=== PATIENT | female | born 1955 | race Caucasian/White ===

== ENCOUNTER → 2017-11-05 13:10 | Outpatient (CLI) | payer MEDICARE, SELFPAY ==
[2017-09-16 23:55] VITALS: BP 155/87
[2017-09-19 14:50] VITALS: BMI 22.1
[2017-10-01 13:05] VITALS: BP 123/86
[2017-11-05 14:00] LABS: Absolute Lymphocyte Count 2.15 X10^3/ul (0.83-4.51); Absolute Neutrophil Count 5.3 X10^3/uL (2.0-7.7); Basophil# 0.06 X10^3/uL; Basophil% 0.7 % (0-1); Eosinophil# 0.43 X10^3/uL; Hematocrit 38.8 % (37-47); Hemoglobin 12.4 g/dl (12.0-15.0); Lymphocyte # 2.15 X10^3/ul (4.0); Lymphocyte % 25.1 % (19-41); Mean Corpuscular Hgb 29.4 pg (27.0-32.0); Mean Corpuscular Volume 91.9 fL (81-99); Mean Platelet Vol. 10.3 fl (6.2-12.0); Monocyte# 0.56 X10^3/uL; Monocyte% 6.5 % (0-10); Neutrophil # 5.34 X10^3/uL (2.7-7.7); Neutrophil % 62.5 % (47-70); POSITIVE COUNT NO; POSITIVE DIFFERENTIAL NO; POSITIVE MORPHOLOGY NO; Platelet Count 184 K/mm3 (150-450); RBC Distribution Width CV 17.3 % (11.6-14.6); RBC Distribution Width SD 56.3 fl (35.1-43.9); Red Blood Count 4.22 M/mm3 (4.2-5.4); White Blood Count 8.6 K/mm3 (4.4-11.0)
[2017-11-05 14:09] LABS: ALB/GLOB Ratio 0.8 RATIO (0.9-2.4); AST(SGOT) 31 U/L (15-37); Alanine Aminotransfer ALT/SGPT 40 U/L (13-56); Albumin, Serum 3.6 g/dL (3.2-5.0); Alkaline Phosphatase 104 U/L (45-117); Anion Gap 7 (5-15); BUN 34 mg/dL (7-18); Chloride 105 mmol/L (98-107); Creatinine, Serum 1.79 mg/dL (0.55-1.02); EST Glomerular Filtration Rate 30 mL/min (>60); Est Glom Filt Rate - Afr Amer 37 mL/min (>60); Globulin 4.5 g/dL (2.2-4.2); Glucose 76 mg/dL (70-110); Potassium 4.1 mmol/L (3.5-5.1); Protein, Total 8.1 g/dL (6.4-8.2); Sodium Level 137 mmol/L (136-145)
== END ==
PROVIDERS: Family Provider Internal Medicine; PCP Internal Medicine; Visit Provider Internal Medicine
DX: G35 Multiple sclerosis (principal); R53.81 Other malaise; G81.91 Hemiplegia, unspecified affecting right dominant side
CPT/HCPCS: 36591; 80053; 85025; A4216

== ENCOUNTER → 2017-11-17 13:01 | Outpatient (CLI) | payer MEDICARE, SELFPAY ==
--- NOTE | 2017-11-17 13:04 | RAD_ITS ---
STUDY: SWALLOWING STUDY REASON FOR EXAM: Female, 62 years old. Dysphagia. History of MS. TECHNIQUE: The examination was performed with Speech Pathology in attendance. Under fluoroscopic observation, the patient ingested thin barium, thick barium, barium pudding, and barium coated cracker. FLUOROSCOPY TIME: 3:56 minutes/seconds. 3489 fluoroscopic images were obtained. RADIOLOGIST INVOLVEMENT: Radiologist was present and providing direct supervision. COMPARISON: Comparison is made with prior study dated September 15, 2017. FINDINGS: The following was observed during swallowing of the various mixtures of barium: Thin Barium: Silent aspiration with ingestion of thin liquids. Thick Barium: Silent aspiration with ingestion of nectar thickened liquids upon serial swallowing. Honey thickened liquids are unremarkable. Barium Pudding: There was no evidence of aspiration or laryngeal penetration. Barium Coated Cracker: There was no evidence of aspiration or laryngeal penetration. RAD/Swallowing Function w/Video IMPRESSION: Silent aspiration with ingestion of thin liquids and nectar thickened liquids upon sequential swallowing. The swallow study findings were discussed with the patient by the speech pathologist at the conclusion of the examination. Please see speech pathology report for more information and recommendations. Electronically Signed: Luís Hines MD at 8:25 EST Tel [phone], Service support ,
--- NOTE | 2017-11-17 13:30 | SP.MBSS_ITS ---
PRIMARY / SECONDARY DIAGNOSIS: dysphagia (R13.10) REFERRING PHYSICIAN: Dr. Alexandria Carranza MD CURRENT DIET: mechanical soft textures, nectar thickened liquids DENTITION: WFL MENTAL STATUS: WNL RESPIRATORY STATUS: O2 via room air PREVIOUS MODIFIED BARIUM SWALLOW STUDY: 09/24/2017 MBS revealed moderate oropharyngeal dysphagia with SILENT aspiration of thin liquids. 09/15/2017 MBS revealed moderate oropharyngeal dysphagia with SILENT aspiration of thin liquids. 09/2015 - Two prior MBS in [facility]; limited details available. REASON FOR REFERRAL: Patient is a 62 year old female referred for a modified barium swallow (MBS) study to objectively assess the Patients oropharyngeal swallow function under fluoroscopy secondary to the diagnosis of multiple sclerosis with resulting moderate oropharyngeal dysphagia and history of SILENT aspiration of thin liquids. Patient well known to this clinician from multiple treatments sessions across multiple levels of care targeting dysphagia and dysarthria secondary to the diagnosis of multiple sclerosis. 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 Patient with prior history of dysphagia requiring PEG placement (09/13/2015 admission in [facility], due to severe sepsis), with follow up MBS recommending a mechanical soft, thin liquid diet, later upgraded to soft textured diet during outpatient speech therapy treatment sessions. MEDICAL HISTORY: Multiple sclerosis, right hemiparesis, chronic transient ischemic attacks, chronic kidney disease stage 4, hydronephrosis, hyperlipidemia, migraine headache. STUDY FINDINGS: Patient participated in a Modified Barium Swallow (MBS) study on 11/17/2017. Dr. Hines was the radiologist present for this evaluation. This study was recorded in the lateral view and images were sent to PACs for storage. The following consistencies were presented to this patient for analysis of oropharyngeal swallow function: thin liquids, nectar thickened liquids, honey thickened liquids, pudding, and a regular textured, [place] Do[place] cookie. Results of the MBS are as follows: PENETRATION / ASPIRATION SCALE (ALBERTO): 1 = does not enter airway 2 = enters airway/above vocal folds/ejected 3 = enters airway/above vocal folds/not ejected 4 = enters airway/contacts vocal folds/ejected 5 = enters airway/contacts vocal folds/not ejected 6 = enters airway/below vocal folds/ejected 7 = enters airway/below vocal folds/not ejected despite effort 8 = enters airway/below vocal folds/no effort VIDEOFLOROSCOPIC SCALE SCORE (ALBERTO): Grade I = aspiration of material that has penetrated into the laryngeal vestibule, intact cough reflex Grade II = aspiration < 10 % of the bolus, intact cough reflex Grade III = aspiration of < 10 % of the bolus, reduced cough reflex or aspiration of > 10 % of the bolus, intact cough reflex Grade IV = aspiration of > 10 % of the bolus, reduced cough reflex PENETRATION / ASPIRATION SCALE (SCORE) WITH VIDEOFLOROSCOPIC SCALE SCORE: Thin liquid - 5 mL tsp.: 2 Thin liquids via straw (single sip): 8 - Grade III Thin liquids via straw (single sip): 8 - Grade III Thin liquids via straw (supraglottic swallow): 8 - Grade III [place] thickened liquids via straw (single sip): 1 [place] thickened liquids via straw (single sip): 1 [place] thickened liquids via straw (single sip): 1 [place] thickened liquids via straw (sequential swallows): 7 - Grade III [place] thickened liquids via straw (sequential swallows): 8 - Grade IV Honey thickened liquids via straw (sequential swallows): 1 Honey thickened liquids via straw (sequential swallows): 1 Honey thickened liquids via straw (sequential swallows): 1 Pudding via spoon: 1 Regular textured cookie: 1 IMPRESSION: DIAGNOSIS: moderate to severe oropharyngeal dysphagia (R13.12) ORAL PHASE CHARACTERIZED BY: LABIAL SEAL: no labial escape TONGUE CONTROL DURING BOLUS MANIPULATION: intermittent posterior escape of greater than half of bolus during thin and nectar thickened liquid trials BOLUS PREPARATION / MASTICATION: slow prolonged chewing/mashing with complete recollection BOLUS TRANSPORT / LINGUAL MOTION: brisk tongue motion ORAL RESIDUE: trace residue lining oral structures PHARYNGEAL PHASE CHARACTERIZED BY: INITIATION OF PHARYNGEAL SWALLOW: bolus head in pyriforms at first hyoid excursion SOFT PALATE ELEVATION: intermittent trace column of contrast/air between soft palate and pharyngeal wall LARYNGEAL ELEVATION: partial superior movement of thyroid cartilage/partial approximation of arytenoids cartilage to epiglottic petiole ANTERIOR HYOID EXCURSION: trace anterior movement EPIGLOTTIC MOVEMENT: partial epiglottic inversion LARYNGEAL VESTIBULE CLOSURE AT HEIGHT OF SWALLOW: incomplete laryngeal vestibule closure with narrow column of air/contrast in laryngeal vestibule PHARYNGEAL STRIPPING WAVE: pharyngeal stripping wave present / complete ( improved) PHARYNGOESOPHAGEAL SEGMENT OPENING: complete distension and complete duration with no obstruction of flow TONGUE BASE RETRACTION: trace column of contrast between tongue base and posterior pharyngeal wall PHARYNGEAL RESIDUE: trace residue within or on pharyngeal structures (improved) ESOPHAGEAL PHASE CHARACTERIZED BY: ESOPHAGEAL BOLUS CLEARANCE IN THE UPRIGHT POSITION: mild esophageal retention EFFECTS OF TREATMENT STRATEGIES ATTEMPTED: Reduced bolus size = effective Cough and reswallow = ineffective Supraglottic swallow = ineffective DIET TEXTURE RECOMMENDATIONS: Will recommend a regular-soft textured, nectar thickened liquid diet. COMPENSATORY STRATEGIES RECOMMENDED: Supervision with assistance for setup, cut solids into bite sized pieces, reduced bolus volume, reduced rate of intake, straws with all liquids, seated upright at 90 degrees during PO intake, medications with liquid chaser. INTERPRETATION OF RESULTS: Patient presents with moderate to severe oropharyngeal dysphagia (R13.12) secondary to the diagnosis of multiple sclerosis. Oral phase marked by mastication inefficiency (slow, albeit effective); suboptimal lingual control resulting in premature bolus loss. Pharyngeal phase marked by severely delayed pharyngeal swallow onset timing resulting in suboptimal bolus location upon swallow onset contributing to prandial penetration and subsequent aspiration of thin and nectar thickened liquids; impaired closure of the airway during deglutition attributed to reduced laryngeal elevation and anterior hyoid excursion resulting in insufficient epiglottic inversion poor laryngeal vestibule closure / pressure contributing to prandial penetration and subsequent aspiration of thin and nectar thickened liquids; and velopharyngeal insufficiency soft palate elevation without nasoregurgitation. Insufficient laryngeal vestibule pressure generated to expel penetrated material. Insufficient cough generated upon cued cough post aspiration to expel penetrated material / laryngotracheal aspiration. Patient noted to SILENTLY aspirate with thin liquids and sequential swallows of nectar thickened liquids, with clinical assessment at bedside relying on identification of classic overt signs and symptoms of aspiration unreliable. Improved tolerance of nectar thickened liquids with reduction in bolus volume. Current presentation likely representing the Patients new baseline, with results somewhat similar in nature to the previous study. RECOMMENDATIONS: Recommendations for nectar thickened liquids accompanied by caution in regards to bolus volume, as the Patient has demonstrated inconsistent management of bolus size without cueing, recommendations made following conversation with the Patient and Patients , all demonstrating comprehension of possible complications, all demonstrate excellent insight, awareness, desire to advance with less restrictive diet and compensatory measures detailed above. Would strongly discourage advancement past nectar thickened liquids without completion of a repeat modified barium swallow study due to the extent of aspirate identified that was SILENT in nature. Recommend continued implementation of the [place] Free Water Protocol (FFWP), as continued manipulation of thin liquids with above recommended aspiration precautions may promote improved hydration. Patient requires intensive skilled speech-language intervention targeting continued diet texture management; training and implementation of recommended compensatory strategies; and training, implementation, and Patient education regarding implementation of the FFWP. ADDITIONAL COMMENTS/RECOMMENDATIONS: Results and recommendations were discussed with the Patient immediately following MBS completion, with the Patient verbalizing understanding and agreement with all recommendations and education provided. IMAGE COUNT: [id number] G-CODES: SWALLOWING [id number] Current Status: CL SWALLOWING [id number] Goal Status: CK SWALLOWING [id number] Discharge Status: CL
== END ==
PROVIDERS: Family Provider Internal Medicine; PCP Internal Medicine; Visit Provider Internal Medicine
DX: R13.10 Dysphagia, unspecified (principal)
CPT/HCPCS: 74230; 92611

== ENCOUNTER → 2017-12-07 15:22 | Outpatient (CLI) | payer MEDICARE, SELFPAY ==
[2017-12-07 16:26] LABS: Absolute Lymphocyte Count 2.67 X10^3/ul (0.83-4.51); Absolute Neutrophil Count 4.5 X10^3/uL (2.0-7.7); Basophil# 0.03 X10^3/uL; Basophil% 0.4 % (0-1); Eosinophil# 0.27 X10^3/uL; Eosinophils% 3.4 % (0-5); Hematocrit 38.2 % (37-47); Hemoglobin 12.1 g/dl (12.0-15.0); Lymphocyte # 2.67 X10^3/ul (4.0); Lymphocyte % 33.2 % (19-41); Mean Corp Hgb Conc 31.7 g/gl (32-36); Mean Corpuscular Hgb 28.7 pg (27.0-32.0); Mean Corpuscular Volume 90.7 fL (81-99); Mean Platelet Vol. 9.9 fl (6.2-12.0); Monocyte# 0.53 X10^3/uL; Monocyte% 6.6 % (0-10); Neutrophil # 4.53 X10^3/uL (2.7-7.7); Neutrophil % 56.3 % (47-70); Platelet Count 233 K/mm3 (150-450); RBC Distribution Width CV 16.3 % (11.6-14.6); RBC Distribution Width SD 54.2 fl (35.1-43.9); Red Blood Count 4.21 M/mm3 (4.2-5.4)
[2017-12-07 16:35] LABS: POSITIVE COUNT NO; POSITIVE DIFFERENTIAL NO; POSITIVE MORPHOLOGY NO
[2017-12-07 16:50] LABS: ALB/GLOB Ratio 0.8 RATIO (0.9-2.4); AST(SGOT) 21 U/L (15-37); Alanine Aminotransfer ALT/SGPT 34 U/L (13-56); Albumin, Serum 3.6 g/dL (3.2-5.0); Alkaline Phosphatase 120 U/L (45-117); Anion Gap 7 (5-15); BUN 44 mg/dL (7-18); BUN/Creat Ratio 22.6 RATIO (10-20); Calcium,Total 8.9 mg/dL (8.5-10.1); Chloride 105 mmol/L (98-107); Creatinine, Serum 1.95 mg/dL (0.55-1.02); EST Glomerular Filtration Rate 28 mL/min (>60); Est Glom Filt Rate - Afr Amer 33 mL/min (>60); Globulin 4.4 g/dL (2.2-4.2); Glucose 67 mg/dL (74-106); Potassium 4.4 mmol/L (3.5-5.1); Sodium Level 138 mmol/L (136-145)
== END ==
PROVIDERS: Family Provider Internal Medicine; PCP Internal Medicine; Visit Provider Internal Medicine
DX: G35 Multiple sclerosis (principal); R53.81 Other malaise; G81.91 Hemiplegia, unspecified affecting right dominant side
CPT/HCPCS: 36591; 80053; 85025; A4216

== ENCOUNTER → 2018-01-11 14:45 | Outpatient (CLI) | payer MEDICARE, SELFPAY ==
[2018-01-11 15:17] LABS: Absolute Lymphocyte Count 2.53 X10^3/ul (0.83-4.51); Absolute Neutrophil Count 5.2 X10^3/uL (2.0-7.7); Basophil# 0.04 X10^3/uL; Basophil% 0.4 % (0-1); Eosinophil# 0.26 X10^3/uL; Eosinophils% 2.9 % (0-5); Hematocrit 40.4 % (37-47); Hemoglobin 12.8 g/dl (12.0-15.0); Lymphocyte # 2.53 X10^3/ul (4.0); Lymphocyte % 28.4 % (19-41); Mean Corp Hgb Conc 31.7 g/gl (32-36); Mean Corpuscular Hgb 28.9 pg (27.0-32.0); Mean Corpuscular Volume 91.2 fL (81-99); Mean Platelet Vol. 9.9 fl (6.2-12.0); Monocyte% 10.1 % (0-10); Neutrophil # 5.16 X10^3/uL (2.7-7.7); Platelet Count 202 K/mm3 (150-450); RBC Distribution Width CV 15.1 % (11.6-14.6); Red Blood Count 4.43 M/mm3 (4.2-5.4); White Blood Count 8.9 K/mm3 (4.4-11.0)
[2018-01-11 15:18] LABS: POSITIVE COUNT NO; POSITIVE DIFFERENTIAL NO; POSITIVE MORPHOLOGY NO
[2018-01-11 15:50] LABS: ALB/GLOB Ratio 0.8 RATIO (0.9-2.4); AST(SGOT) 28 U/L (15-37); Alanine Aminotransfer ALT/SGPT 37 U/L (13-56); Albumin, Serum 3.7 g/dL (3.2-5.0); Alkaline Phosphatase 126 U/L (45-117); Anion Gap 4 (5-15); BUN 32 mg/dL (7-18); BUN/Creat Ratio 17.4 RATIO (10-20); Chloride 102 mmol/L (98-107); Creatinine, Serum 1.84 mg/dL (0.55-1.02); EST Glomerular Filtration Rate 30 mL/min (>60); Est Glom Filt Rate - Afr Amer 36 mL/min (>60); Globulin 4.4 g/dL (2.2-4.2); Glucose 89 mg/dL (74-106); Potassium 4.4 mmol/L (3.5-5.1); Protein, Total 8.1 g/dL (6.4-8.2); Sodium Level 137 mmol/L (136-145)
== END ==
PROVIDERS: Family Provider Internal Medicine; PCP Internal Medicine; Visit Provider Internal Medicine
DX: G35 Multiple sclerosis (principal); R53.81 Other malaise; G81.91 Hemiplegia, unspecified affecting right dominant side
CPT/HCPCS: 36591; 80053; 85025; A4216

== ENCOUNTER → 2018-02-07 16:01 | Outpatient (CLI) | payer MEDICARE, SELFPAY ==
[2018-02-07 16:44] LABS: Absolute Neutrophil Count 7.2 X10^3/uL (2.0-7.7); Basophil# 0.04 X10^3/uL; Basophil% 0.4 % (0-1); Eosinophils% 1.8 % (0-5); Hematocrit 39.4 % (37-47); Hemoglobin 12.6 g/dl (12.0-15.0); Lymphocyte % 22.1 % (19-41); Mean Corpuscular Hgb 28.9 pg (27.0-32.0); Mean Corpuscular Volume 90.4 fL (81-99); Mean Platelet Vol. 9.4 fl (6.2-12.0); Monocyte# 1.02 X10^3/uL; Monocyte% 9.4 % (0-10); Neutrophil # 7.19 X10^3/uL (2.7-7.7); Neutrophil % 66.2 % (47-70); Platelet Count 222 K/mm3 (150-450); RBC Distribution Width SD 49.1 fl (35.1-43.9); Red Blood Count 4.36 M/mm3 (4.2-5.4); White Blood Count 10.9 K/mm3 (4.4-11.0)
[2018-02-07 17:05] LABS: ALB/GLOB Ratio 0.8 RATIO (0.9-2.4); AST(SGOT) 21 U/L (15-37); Alanine Aminotransfer ALT/SGPT 33 U/L (13-56); Albumin, Serum 3.5 g/dL (3.2-5.0); Alkaline Phosphatase 134 U/L (45-117); Anion Gap 8 (5-15); BUN 35 mg/dL (7-18); BUN/Creat Ratio 17.9 RATIO (10-20); Calcium,Total 9.5 mg/dL (8.5-10.1); Chloride 102 mmol/L (98-107); Creatinine, Serum 1.96 mg/dL (0.55-1.02); EST Glomerular Filtration Rate 27 mL/min (>60); Est Glom Filt Rate - Afr Amer 33 mL/min (>60); Globulin 4.5 g/dL (2.2-4.2); Glucose 89 mg/dL (74-106); Potassium 4.7 mmol/L (3.5-5.1); Sodium Level 137 mmol/L (136-145)
[2018-02-07 17:08] LABS: Albumin, Serum 3.5 g/dL (3.2-5.0); BUN 35 mg/dL (7-18); BUN/Creat Ratio 17.9 RATIO (10-20); Calcium,Total 9.3 mg/dL (8.5-10.1); Chloride 101 mmol/L (98-107); Creatinine, Serum 1.96 mg/dL (0.55-1.02); EST Glomerular Filtration Rate 27 mL/min (>60); Est Glom Filt Rate - Afr Amer 33 mL/min (>60); Ferritin 35 ng/mL (8-252); Glucose 90 mg/dL (74-106); Iron 34 ug/dL (50-170); Iron Binding Capacity,Total 313 ug/dL (250-450); Phosphorus 3.8 mg/dL (2.5-4.9); Potassium 4.6 mmol/L (3.5-5.1); Sodium Level 135 mmol/L (136-145)
[2018-02-07 17:11] LABS: POSITIVE COUNT NO; POSITIVE DIFFERENTIAL NO; POSITIVE MORPHOLOGY NO
[2018-02-07 17:12] LABS: PTHIN 229.3 pg/mL (18.4-80.1)
[2018-02-07 17:15] LABS: RET-HE 30.5 pg (30-35); Reticulocyte Count 1.11 % (0.5-1.5)
[2018-02-07 17:16] LABS: Immature Platelet Fraction 2.1 % (1.0-7.9)
[2018-02-07 17:56] LABS: Vitamin B12 713 pg/mL (211-911); Vitamin D,25 Hydroxy 61.5 ng/mL (29.95-100.01)
== END ==
PROVIDERS: Family Provider Internal Medicine; PCP Internal Medicine; Visit Provider Internal Medicine
DX: G35 Multiple sclerosis (principal); N18.3 Chronic kidney disease, stage 3 (moderate); E61.1 Iron deficiency; R53.81 Other malaise; G81.91 Hemiplegia, unspecified affecting right dominant side
CPT/HCPCS: 36591; 80053; 80069; 82306; 82607; 82728; 83540; 83550; 83970; 85025; 85045; A4216

== ENCOUNTER → 2018-03-17 14:54 | Outpatient (CLI) | payer MEDICARE, SELFPAY ==
[2018-03-17 15:42] LABS: Absolute Neutrophil Count 4.2 X10^3/uL (2.0-7.7); Basophil# 0.04 X10^3/uL; Basophil% 0.6 % (0-1); Eosinophil# 0.21 X10^3/uL; Hematocrit 37.4 % (37-47); Hemoglobin 12.2 g/dl (12.0-15.0); Lymphocyte % 28.2 % (19-41); Mean Corp Hgb Conc 32.6 g/gl (32-36); Mean Corpuscular Hgb 29.2 pg (27.0-32.0); Mean Corpuscular Volume 89.5 fL (81-99); Mean Platelet Vol. 9.4 fl (6.2-12.0); Monocyte# 0.69 X10^3/uL; Monocyte% 9.7 % (0-10); Neutrophil # 4.15 X10^3/uL (2.7-7.7); Neutrophil % 58.5 % (47-70); Platelet Count 215 K/mm3 (150-450); RBC Distribution Width CV 15.6 % (11.6-14.6); Red Blood Count 4.18 M/mm3 (4.2-5.4); White Blood Count 7.1 K/mm3 (4.4-11.0)
[2018-03-17 15:48] LABS: ALB/GLOB Ratio 0.8 RATIO (0.9-2.4); AST(SGOT) 32 U/L (15-37); Alanine Aminotransfer ALT/SGPT 45 U/L (13-56); Albumin, Serum 3.5 g/dL (3.2-5.0); Alkaline Phosphatase 160 U/L (45-117); Anion Gap 8 (5-15); BUN 36 mg/dL (7-18); BUN/Creat Ratio 17.1 RATIO (10-20); Calcium,Total 9.2 mg/dL (8.5-10.1); Chloride 101 mmol/L (98-107); Creatinine, Serum 2.11 mg/dL (0.55-1.02); EST Glomerular Filtration Rate 25 mL/min (>60); Est Glom Filt Rate - Afr Amer 30 mL/min (>60); Globulin 4.2 g/dL (2.2-4.2); Glucose 100 mg/dL (74-106); Protein, Total 7.7 g/dL (6.4-8.2); Sodium Level 139 mmol/L (136-145)
[2018-03-17 15:49] LABS: POSITIVE COUNT NO; POSITIVE DIFFERENTIAL NO; POSITIVE MORPHOLOGY NO
== END ==
PROVIDERS: Family Provider Internal Medicine; PCP Internal Medicine; Visit Provider Internal Medicine
DX: G35 Multiple sclerosis (principal); R53.81 Other malaise; G81.91 Hemiplegia, unspecified affecting right dominant side
CPT/HCPCS: 36591; 80053; 85025; A4216

== ENCOUNTER → 2018-04-14 15:21 | Outpatient (CLI) | payer MEDICARE, SELFPAY ==
[2018-04-14 16:03] LABS: Absolute Lymphocyte Count 1.73 X10^3/ul (0.83-4.51); Absolute Neutrophil Count 5.2 X10^3/uL (2.0-7.7); Basophil# 0.04 X10^3/uL; Basophil% 0.5 % (0-1); Eosinophil# 0.21 X10^3/uL; Eosinophils% 2.6 % (0-5); Hematocrit 38.8 % (37-47); Lymphocyte # 1.73 X10^3/ul (4.0); Lymphocyte % 21.8 % (19-41); Mean Corp Hgb Conc 33.5 g/gl (32-36); Mean Corpuscular Hgb 29.4 pg (27.0-32.0); Mean Corpuscular Volume 87.8 fL (81-99); Mean Platelet Vol. 10.2 fl (6.2-12.0); Monocyte# 0.76 X10^3/uL; Monocyte% 9.6 % (0-10); Neutrophil # 5.18 X10^3/uL (2.7-7.7); Neutrophil % 65.2 % (47-70); Platelet Count 184 K/mm3 (150-450); RBC Distribution Width CV 14.9 % (11.6-14.6); RBC Distribution Width SD 47.9 fl (35.1-43.9); Red Blood Count 4.42 M/mm3 (4.2-5.4); White Blood Count 7.9 K/mm3 (4.4-11.0)
[2018-04-14 16:12] LABS: POSITIVE COUNT NO; POSITIVE DIFFERENTIAL NO; POSITIVE MORPHOLOGY NO
[2018-04-14 17:04] LABS: ALB/GLOB Ratio 0.8 RATIO (0.9-2.4); AST(SGOT) 23 U/L (15-37); Alanine Aminotransfer ALT/SGPT 35 U/L (13-56); Albumin, Serum 3.6 g/dL (3.2-5.0); Alkaline Phosphatase 139 U/L (45-117); Anion Gap 9 (5-15); BUN 36 mg/dL (7-18); BUN/Creat Ratio 19.6 RATIO (10-20); Calcium,Total 9.4 mg/dL (8.5-10.1); Chloride 96 mmol/L (98-107); Creatinine, Serum 1.84 mg/dL (0.55-1.02); EST Glomerular Filtration Rate 29 mL/min (>60); Est Glom Filt Rate - Afr Amer 36 mL/min (>60); Globulin 4.5 g/dL (2.2-4.2); Glucose 105 mg/dL (74-106); Potassium 4.4 mmol/L (3.5-5.1); Protein, Total 8.1 g/dL (6.4-8.2); Sodium Level 135 mmol/L (136-145)
== END ==
PROVIDERS: Family Provider Internal Medicine; PCP Internal Medicine; Visit Provider Internal Medicine
DX: G35 Multiple sclerosis (principal); R53.81 Other malaise; G81.91 Hemiplegia, unspecified affecting right dominant side
CPT/HCPCS: 36591; 80053; 85025; A4216

== ENCOUNTER 2018-05-05 17:00 | Outpatient (RCR) | payer MEDICARE, SELFPAY ==
--- NOTE | 2017-10-13 13:00 | HP.PTEVAL ---
Patient's Visit Information KEN CASON is a 62 year old F referred to Physical Therapy by Chava Feng with a diagnosis of MS, muscle weakness. Date of Evaluation: 10/12/17 Physical Therapist: Kirsten Mcguire - Visit Plan Frequency: 2x /Week Duration: 6 Weeks Plan: 2X/ week for 6 weeks for postural exercise, core stability, postural stretches, LE stretches (UE stretches deferred to OT), with teaching how to do stretches/exercises at home - Subjective Subjective: Pt's prefers to do his 's transfers. He reports that they have a system and it works. Pt was formally diagnosed with MS at age 14 but had symptoms in grade school. She has relapsing remitting and then to secondary progressive. MS has been stable in relapsing over last 20 years. 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 Procedure done in that caused an intestine issue. Pt was just in the hospital on Aug 11 and spent 20 days in TCU with 2 interruptions. Oct 01 pt was DC from TCU. Pt reports that she feels a nit stronger than before she was hospitalized. Ken seems to do best when she has some therapy going on. Pt transfers with help from bed to commode chair. One issues is maintaining her posture (tone on the right side pulls her that direction). She showers indep once she transfers. Two major issues are standing to do the transfers, maintaining sitting posture, and sjouching in her chair, Pt complains of pain with flexing her knees to get into the chair. 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 She had an AFO but can not tolerate it at this time. They have to reschedule OT. Sometimes she uses a soft collar to help with her posture and sometimes sleeps in the soft collar. L eye leagally blind, R eye prespotic - Objective Sitting posture: Sits in wheelchair with back posture support slouched to the R side and slouched with hips forward (almost as if she was going to slide forward out of the chair). transfers pt with a stand pivot transfers and helps to advance her feet to move to mat table. Sitting: unable to sit Indep on mat table without mod A for back support. With some therapist back support pt was able to raise arms to 90 degrees flexion and rotate arms from side to side (increased cluncking with rotation of the spine but pt reports that it felt good to stretch). Tried to have pt put arm down on mat table but R hand is contracted and unable to get out of the clenched fist position. Pt is very kyphotic and tight pecs and increased throacic kyphosis. Worked on sitting on the mat table with therapist behind back and husnand holding hands and working on trunk flexion and extension sitting on mat table - Goals Goal 1:: Be able to sit with more upright posture Goal Time Frame: 4-6 Weeks Goal 2:: Teach how to stretch pt at home Goal Time Frame: 4-6 Weeks Goal 3:: Be able to complete arms overhead and rotation in sitting 3 X 15 with mod A support Goal Time Frame: 4-6 Weeks - Rehabilitation Potential Rehabilitation Potential: Fair - Anticipated Interventions Patient/Client Instruction: Educate patient on: Plan of Care For the Purpose of:: To improve muscle performance and motor function, To improve ability to perform ADL's, To increase tolerance to activity/condition/position, To improve performance and independence with ADL's, To facilitate caregiver knowledge, To improve ability to perform tasks related to life management, To improve tolerance to ADL's Therapeutic Exercise to Include: Strength training, Endurance training, Balance training, Postural training, Flexibilty training, Passive ROM, Active ROM, Dynamic Lumbar Stabilization, Scapular Strength/Stabilization For the Purpose of:: To improve muscle performance and motor function, To improve performance and independence with ADL's, To improve ability of physical actions for home/community/work/leisure, To improve balance Thank you for the opportunity to evaluate your patient. For Medicare and Medicare HMO plans, please review the plan of care and approve it. It will need to be FAXED BACK to us at [phone] for Medicare purposes. Please let me know if there are questions or concerns regarding this plan of care. Physician Signature: Date:
--- NOTE | 2017-10-20 19:20 | HP.OTEVAL_ITS ---
Patient's Visit Information KEN CASON is a 62 year old F, referred to Occupational Therapy by Chava Feng [email or web address], with a diagnosis of MS, Dysphagia, ms weakness. Date of Evaluation: 10/20/17 Occupational Therapist: Delaney Carvajal - Subjective Subjective: Ken noted that MS symptoms are pretty stagnant. , Siva, present tin session. Siva noted Ken became acutely ill in Nov with UTI. She became septic, developed chrnoic nose bleed, aspirated (silently) and developed PNA. She went from acute to TCU, back tot he deyvi lawson neded on TCU prior to being d/c on Oct 01.Siva noted he feels Ken benefits from therapy. Ken noted she has been taking longer to get ready that usual. He futher noted that he has two splints at home that Ken uses at night. - ROM Shoulder: R unable to complete w/o AAROM; L flexion approx 100 degrees Elbow: R Unable w/o AAROM from OT; L WFL Forearm: R Unable w/o AAROM from OT; L WFL Wrist: R Unable w/o AAROM from OT; L WFL MP: R Unable w/o AAROM from OT; L WFL PIP: R Unable w/o AAROM from OT; L WFL DIP: R Unable w/o AAROM from OT; L WFL ROM Comments: Ken is able to move R index finger and thumb. Eval later in day and she had PT prior to OT. Due to increased fatigue from therapy session she had increased difficulty forming L with R hand. - Strength Shoulder: R 2/5, L 3/5 Elbow: R 2/5, L 3/5 Special Makeup Fx Artist Instructor: R unable L 47 Lateral Pinch: R unable L 10 Tripod Pinch: R unable L 6 Tip-to-Tip Pinch: R unable L 5 - Movement Muscle Tone: increased spasticity to R UE and LE at this time - DASH-Disabilities of Arm, Shoulder& Hand DASH Sum: 110 - Goals Goal:: Ken to increased ability to open and close R hand to form fist to mainpulate obejcts needed for self care 2/3 trials 75% of the time by d/c. Goal:: Ken and caregiver to demo mod I for energy conservation and joint protection techniques to promote upright posture in chair and increased (I) with self-care 2/3 trials 75% of the time by d/c. Goal:: Ken to increased ability to manipulate self-care items with R Ue to promote (I) with a/e and compensations as needed 2/3 trials 75% of the time by d /c. - Rehabilitation General Assessment: Ken arrived to session with , Siva. Siva completed most of verbal communication as talking is fatigung to Ken at this time and she was fatigued from prior PT session. She noted her main goal for therapy is to help increased productivity with self-care routine. Currently self -care tasks about 2 hours to complete. Ken additionally noted she feels weak in B UE and would like to address ROM and strength deficits. She has limited ROM and strength in R UE due to increased spasticity on R side. Increased tone pressents with decreased alignment in w/c at this time. Ken is able to actively extend R thumb and index finger. OT to work on gaining movement and alignment to R UE to promote increased (I) with self-care routine. Rehabilitation Potential: Good - Anticipated Interventions Anticipated Interventions: Early Active Motion, A/AAROM/PROM, Strengthening, Edema Control, Modalities, Joint Protection/Energy Conservation, Fine Motor Coord/Norris, Neuro Reeducation, Sensory Stimulation, ADL Training, Caregiver Training, Home Program - Visit Plan Frequency: 1-2x /Week Duration: 4-6 Weeks General Plan: Ken to recieved OT servcies to address strength, tone, UE coordination and ROM to promote increasing (I) in ADls and additional self-care tasks. TEXT: Thank you for the opportunity to evaluate your patient. For Medicare and Medicare HMO plans, please review the plan of care and approve it. It will need to be FAXED BACK to us at [phone] for Medicare purposes. Please let me know if there are questions or concerns regarding this plan of care. Physician Signature: Date:
--- NOTE | 2017-11-11 19:16 | HP.SP.AD ---
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 Other Relevant Medical History/Diagnoses/Surgery: Multiple sclerosis, right hemiparesis, migraine headache, insomnia, allergic rhinitis, overactive bladder, muscle spasms, vitamin D deficiency, hyperlipidemia, chronic kidney disease, transient ischemic attack, bilateral hydronephrosis. Smoking Status: Never smoker Hx Smoking: No Hx Tobacco Use: No Hx Smoking Exposure: No - Pain Is pain an issue with your current prescribed condition?: No Patient Allergies - Allergies Allergies morphine Adverse Reaction (Verified 09/10/17 13:12) Other Subjective Oral Motor - Comments Comments: No side specific asymmetries note at rest / retraction, generalized slowing of the oral musculature noted, mild xerostomia. Natural dentition, WFL. Suboptimal cough / throat clearing intensity. Subjective Dysphagia - Symptoms Reported Symptoms/Problems with: Drooling, Coughing, Xerostomia, Hx of Aspiration, Hx of Pneumonia - Current Diet Solids Current Diet: Regular - Current Diet Liquids Current Liquids: [place] Thick Gast[place] free water Protocol: Yes Plan - Plan Plan: Patient is a 62 year old female referred for an outpatient clinical swallow evaluation following recent hospitalizations at [facility] / [facility] associated with acute encephalopathy (lethargy or drowsiness/sedated) and hypotension likely due to aspiration pneumonia in addition to chronic kidney disease. Patient well known to this clinician from multiple treatments sessions across multiple levels of care targeting dysphagia and dysarthria secondary to the diagnosis of multiple sclerosis. Patients present, reports adherence to recommended diet textures and [place] Free Water Protocol sans occasional consumptions of medications with thin liquid water and fire technician, no respiratory complications, relatively adequate endurance and energy level, no apparent issues regarding tolerance of PO diet textures (soft textures, nectar thickened liquids). Patient with prior history of dysphagia requiring PEG placement (09/13/2015 admission in [facility], due to severe sepsis), with follow up MBS recommending a mechanical soft, thin liquid diet, later upgraded to soft textured diet during outpatient speech therapy treatment sessions. 09/15/2017 MBS revealed moderate oropharyngeal dysphagia with SILENT aspiration of thin liquids. 09/24/2017 MBS revealed moderate oropharyngeal dysphagia with SILENT aspiration of thin liquids. Patient is currently considered at higher risk of both primary overt and silent aspiration secondary to the diagnosis of multiple sclerosis. Patient presents with moderate oropharyngeal dysphagia (R13.12) secondary to the diagnosis of multiple sclerosis. Oral phase primarily marked by mastication inefficiency with noted slow, effortful mastication requiring liquid wash to facilitate complete breakdown; and suboptimal lingual control with noted reduced rate of lingual movement. Pharyngeal phase primarily marked by marked audible swallow during thin liquid intake likely indicating delayed pharyngeal swallow onset timing in line with prior objective assessment results; and reduced hyolaryngeal excursion upon digital palpation suggesting impaired closure of the airway during deglutition in line with prior objective assessment results. Patient noted to SILENTLY aspirate with thin liquids upon objective assessment, with clinical assessment at bedside relying on identification of classic overt signs and symptoms of aspiration unreliable. Would anticipate recurrent issues with thin liquid tolerance if able to advance to thin liquids as rehabilitation course continues. Patients current swallow profile is adequate to suggest adequate intake volumes and safety at current recommended diet textures, though would anticipate further deterioration of the swallow mechanism due to the progressive nature of the Patients disease, with the Patient and Patients spouse acutely aware of this fact. Would strongly discourage advancement past nectar thickened liquids without completion of a repeat modified barium swallow study due to the extent of aspirate identified that was SILENT in nature. Would consider this Patient clinically appropriate to participate in further assessment of the oropharyngeal swallow function under fluoroscopy. Recommend continued implementation of the [place] Free Water Protocol (FFWP), as continued manipulation of thin liquids with above recommended aspiration precautions may promote improved hydration and possibly improved tolerance of lower viscosity liquids. Patient requires intensive skilled speech-language intervention targeting continued diet texture management; training and implementation of recommended compensatory strategies; training, implementation, and Patient education regarding implementation of the FFWP; Patient and caregiver training targeting meal preparation / thickened liquid preparation prior to discharge; and consideration for implementation of oropharyngeal strengthening exercises targeting above mentioned deficits, though significant improvement is not likely due to the progressive nature of the Patients diagnosis. Will hold completion of the cognitive communication assessment until intervention plan established targeting dysphagia. - Recommendations MBS: Yes Treatment Warranted: Yes - Frequency Frequency: 1x/Week Duration: 6 Months - Prognosis Prognosis: Good - Goals that are Established: Determination:: Goals will be added/modified as deemed necessary and appropriate. Therapy will be discontinued when results of re-evaluation indicate therapy is no longer needed or lack of progress has been documented. - Goal #1-5 Goal #1: Patient will tolerate the least restrictive means of nutrition to facilitate adequate hydration/nutrition with optimum safety and efficiency of swallowing function during P.O. intake without overt signs and symptoms of aspiration. Goal #2: Patient will demonstrate and utilize recommended compensatory swallowing techniques to facilitate improved airway protection and decreased risk for aspiration during PO intake, across 2 out of 3 sessions. Goal #3: Patient will comprehend and express safety precautions associated with the [place] Free Water Protocol to facilitate improved hydration / intake with min cueing across 2 consecutive sessions. Goal #4: Patient will participate in a repeat Modified Barium Swallow (MBS) study to objectively assess the Pt.s oropharyngeal swallowing function, to determine the least restrictive means of nutrition, and to identify appropriate intervention approaches / strategies to implement during treatment sessions at the supervised level. Goal #5: Goal adjustment as needed. Education - Patient has Indicated that the Following Identified Educational Needs: None, Other Other Educational Needs: increased energy to speak due to MS; , david helps. The Patient has indicated that they have no educational or learning abilities that may effect their care.: Yes - Patient Instruction Patient Education: Diagnosis, Treatment Plan Person Taught: Patient Teaching Method: Discussion Response to teaching: Verbalize understanding
--- NOTE | 2017-12-07 14:35 | HP.PTDCSUM_ITS ---
HP - PT D/C Summary It has been my pleasure to treat KEN CASON under orders from DR.TKWOK Ayers Chi for the diagnosis of MS, muscle weakness for a total of 9 visit(s). Discharge Date: 12/07/17 Please see the following information for a summary of their discharge status. - Subjective Subjective: Pt reports that she would like a HEP. would like an I program that Ken can do in bed in the morning before he gets her up. reports that when he is transfering Ken she likes to stick her butt out and wants to know how to stop that. - Pain LBP Pain Intensity (Out of 10): 0 - Overall Improvement % Improvement: 40 - Objective Objective/Function: Pt's R LE is weaker with heel slides, hip abd, and LAQ. Pt; s L ankle likes to invert with transfers. Pt was able to transfer better by having the pt thrust hips fw and squeeze butt cheeks together. - Goals Goal 1:: Be able to sit with more upright posture Goal Progress: Progressing Goal 2:: Teach how to stretch pt at home Goal Progress: Goal Met Goal 3:: Be able to complete arms overhead and rotation in sitting 3 X 15 with mod A support Goal Progress: Progressing - Plan Plan: DC PT. Advised pt to work on HEP daily starting with 10 reps of each and to stretch freq throughout the day. Also discussed stretching pt at home daily. - D/C Information Discharge Comments: DC PT to HEP If there are questions or concerns regarding this patient's physical therapy, please feel free to call me at [phone]. Thank you for the referral of this patient. Sincerely, Kirsten Mcguire
--- NOTE | 2017-12-07 15:01 | HP.OTDCSUM ---
HP - OT D/C Summary It has been my pleasure to treat KEN CASON under orders from DR.TKWOK Ayers Chi for the diagnosis of MS, Dysphagia, ms weakness for a total of 7 visit(s). Please see the following information for a summary of their discharge status. - Objective Objective/Function: Re assessment completed. She reports baseline for all ADLs. She has lateral lean to R side in w/c due to h/o clavical fx and MS. Has lateral supports to promote positioning. Her ROM is limited at this time on RUE. LUE is WFL; R UE shoulder presents in malalignment due to clavicle fx 10+years ago. R shoulder flexion 40-70 degrees with decreased alignment. Wrist flexion R 29-60 degrees, ext 29-0. Elbow flexion 43-66 degrees. Increased spasticity in R hand seocndary to MS and increased fatigue. R hand resting psoition in in fist. , Siva, and Ken verbalize understanding to complete splint to manage tone to prevent fisted grasp. R IF ROM finger ext: MCP 80- -64, 112- -90, DIP DNT. Started assessment completed MMT shoulder R 2/5, L 3+/5; elbow R 2/5, L 3+/5, wrist R 2+/5, L 3+/5. Additional in school suspension aide strengthening assessment completed: in school suspension aide R unable, R 59; lateral R 12, L 18; three jaw unable, L 10. Techniques and compensation have been discussed. She is able to complete most self-are with 2+ hours. Pt. reports being at baseline. She will be d/c'd at this time. - Goals Patient Goals: Regain Mobility, Regain Strength, Decrease Pain, Return to Work, Improve Fine Motor Skills, Use Hand/Wrist/Arm Normally Again, Sleep Better, Increase ROM, Be More Independent in ADLS, Resume Former Household Responsibilities (Cooking,Cleaning,Yard, etc.), Resume Hobbies Goal:: Ken to increased ability to open and close R hand to form fist to mainpulate obejcts needed for self care 2/3 trials 75% of the time by d/c. Goal:: Frieda to be mod I to complete don/doff of pullover shirt with use of energy conservation for increased (I) and less fatigue 2/3 trials 75% of the time by d/c. Goal:: Ken and caregiver to demo mod I for energy conservation and joint protection techniques to promote upright posture in chair and increased (I) with self-care 2/3 trials 75% of the time by d/c. Goal:: Ken to increased ability to manipulate self-care items with R Ue to promote (I) with a/e and compensations as needed 2/3 trials 75% of the time by d/c. - Plan Plan: Pt. to be d/c'd. - D/C Information If there are questions or concerns regarding this patient's occupational therapy, please fell free to call me at [phone]. Thank you for the referral of this patient. Sincerely, Delaney Carvajal
== END 2018-05-05 19:00 | disposition home or self-care (01) ==
LOC: SP 17:00
PROVIDERS: Family Provider Internal Medicine; PCP Internal Medicine; Visit Provider Family Medicine Geriatric Medicine
DX: R13.12 Dysphagia, oropharyngeal phase (principal); R47.1 Dysarthria and anarthria; R13.10 Dysphagia, unspecified; M62.81 Muscle weakness (generalized); G35 Multiple sclerosis
CPT/HCPCS: 74230; 92507; 92523; 92526; 92610; 92611; 97110; 97140; 97162; 97166; 97530; G8996; G8997; G8998

== ENCOUNTER → 2018-05-24 14:25 | Outpatient (CLI) | payer MEDICARE, SELFPAY ==
[2018-05-24 15:11] LABS: Absolute Lymphocyte Count 1.85 X10^3/ul (0.83-4.51); Basophil# 0.04 X10^3/uL; Basophil% 0.4 % (0-1); Eosinophil# 0.19 X10^3/uL; Eosinophils% 2.1 % (0-5); Hematocrit 35.7 % (37-47); Hemoglobin 12.1 g/dl (12.0-15.0); Lymphocyte # 1.85 X10^3/ul (4.0); Lymphocyte % 20.6 % (19-41); Mean Corp Hgb Conc 33.9 g/gl (32-36); Mean Corpuscular Volume 88.4 fL (81-99); Mean Platelet Vol. 9.7 fl (6.2-12.0); Neutrophil # 5.99 X10^3/uL (2.7-7.7); Neutrophil % 66.8 % (47-70); Platelet Count 196 K/mm3 (150-450); RBC Distribution Width SD 48.7 fl (35.1-43.9); Red Blood Count 4.04 M/mm3 (4.2-5.4)
[2018-05-24 15:12] LABS: POSITIVE COUNT NO; POSITIVE DIFFERENTIAL NO; POSITIVE MORPHOLOGY NO
[2018-05-24 15:36] LABS: ALB/GLOB Ratio 0.9 RATIO (0.9-2.4); AST(SGOT) 28 U/L (15-37); Alanine Aminotransfer ALT/SGPT 45 U/L (13-56); Albumin, Serum 3.7 g/dL (3.2-5.0); Alkaline Phosphatase 130 U/L (45-117); Anion Gap 10 (5-15); BUN 31 mg/dL (7-18); BUN/Creat Ratio 17.1 RATIO (10-20); Calcium,Total 9.4 mg/dL (8.5-10.1); Chloride 99 mmol/L (98-107); Creatinine, Serum 1.81 mg/dL (0.55-1.02); EST Glomerular Filtration Rate 30 mL/min (>60); Est Glom Filt Rate - Afr Amer 36 mL/min (>60); Globulin 4.3 g/dL (2.2-4.2); Glucose 77 mg/dL (74-106); Magnesium 2.3 mg/dL (1.6-2.6); Phosphorus 3.3 mg/dL (2.5-4.9); Potassium 4.4 mmol/L (3.5-5.1); Sodium Level 136 mmol/L (136-145)
[2018-05-25 09:00] LABS: PTHIN 200.9 pg/mL (18.4-80.1)
[2018-05-25 09:06] LABS: Vitamin D,25 Hydroxy 53.2 ng/mL (29.95-100.01)
== END ==
PROVIDERS: Family Provider Internal Medicine; PCP Internal Medicine; Visit Provider Internal Medicine
DX: N18.3 Chronic kidney disease, stage 3 (moderate) (principal); G35 Multiple sclerosis; R53.81 Other malaise; G81.91 Hemiplegia, unspecified affecting right dominant side
CPT/HCPCS: 36591; 80053; 82306; 83735; 83970; 84100; 85025; A4216

== ENCOUNTER → 2018-05-24 15:10 | Outpatient (CLI) | payer MEDICARE, SELFPAY ==
--- NOTE | 2018-05-24 15:12 | BI_ITS ---
MAMMOGRAPHY - BILATERAL SCREENING REASON FOR EXAM: Female, 63 years old. Routine annual screening examination. Limited study due to patient's condition. PERTINENT HISTORY: Grandmother with breast cancer. TECHNIQUE: Digital bilateral breast dalila (3D mammographic acquisition) in the CC and MLO projections. 2-D mediolateral oblique (MLO) and craniocaudad (CC) views of both breasts were obtained. CAD: Full Field Digital Mammography with Computer Added Detection was performed. COMPARISON: No comparison mammograms available at this time. If any prior films become available, an addendum to this report can be generated. FINDINGS: Breast Composition: The breasts are heterogeneously dense, which may obscure small masses. There are no dominant masses or suspicious calcifications. There is a 5.8 mm x 10.7 mm well-defined calcified nodule in the upper deep lateral portion of the right breast. This most likely represents a fibroadenoma. No other significant abnormalities are identified. BI/SCREENING MAMM (CAD), BILAT IMPRESSION: Negative screening mammogram. Yearly followup mammogram recommended. (A) ASSESSMENT CATEGORY: BIRADS Category 2: Benign. A letter regarding these results will be sent to the patient by the facility within 30 days. Approximately 10% of breast cancers are not detected by mammography. A normal mammogram should not delay biopsy of a clinically suspicious abnormality. [id number] Electronically Signed: Luís Hines MD at 8:18 EDT Tel [phone], Service support ,
== END ==
PROVIDERS: Family Provider Internal Medicine; PCP Internal Medicine; Visit Provider Internal Medicine
DX: Z12.31 Encounter for screening mammogram for malignant neoplasm of breast (principal); Z78.0 Asymptomatic menopausal state; M81.0 Age-related osteoporosis without current pathological fracture; N18.3 Chronic kidney disease, stage 3 (moderate); G35 Multiple sclerosis; R53.81 Other malaise; G81.91 Hemiplegia, unspecified affecting right dominant side
CPT/HCPCS: 36591; 77063; 77067; 77080; 80053; 82306; 83735; 83970; 84100; 85025; A4216

== ENCOUNTER → 2018-06-23 14:36 | Outpatient (CLI) | payer MEDICARE, SELFPAY | PROVIDERS: Family Provider Internal Medicine; PCP Internal Medicine; Visit Provider Internal Medicine | DX: G35 Multiple sclerosis (principal); R53.81 Other malaise; G81.91 Hemiplegia, unspecified affecting right dominant side | CPT/HCPCS: 96523 ==

== ENCOUNTER 2018-07-01 18:09 | Inpatient (IN) | payer MEDICARE, SELFPAY ==
[2018-07-01 18:11] VITALS: BP 146/91; PULSE 96; RESP 16; TEMP 36.9; O2SAT 86; BMI 21.5
[2018-07-01 18:14] VITALS: O2SAT 93
[2018-07-01 18:15] VITALS: O2SAT 94
--- NOTE | 2018-07-01 18:45 | RAD_ITS ---
STUDY: X-RAY CHEST REASON FOR EXAM: Female, 63 years old. DIFFICULTY BREATHING AFTER CHOKING EPISODE. UNABLE TO CLEAR SECRETIONS. HX of MS with dystonia. TECHNIQUE: Single frontal view of the chest. COMPARISON: Sep 12 2017 9:14am FINDINGS: Chronic appearing increased interstitial lung markings. There is a left Port-A-Cath and/or mediport in place. The tip is in the superior vena caval - atrial junction. There is an elevated right hemidiaphragm. This is decreasing in right lung volume. There is no demonstrated pleural abnormality. Normal heart size. Normal mediastinum and ramy. Normal visualized pulmonary arteries. There is atherosclerotic calcification of the aortic arch with tortuosity. There are diffuse degenerative changes of the visualized thoracic spine. There is degenerative osteoarthritis of the bilateral shoulders. There is no demonstrated abnormality of the visualized soft tissue structures of the upper abdomen. RAD/Chest 1 View (Portable) IMPRESSION: There are no acute findings. There is an elevated right hemidiaphragm. This is decreasing in right lung volume. This is a stable finding. Electronically Signed: Peter Raymundo MD at 18:58 EDT , Service support ,
[2018-07-01 18:55] LABS: Absolute Neutrophil Count 5.7 X10^3/uL (2.0-7.7); Basophil# 0.03 X10^3/uL; Basophil% 0.4 % (0-1); Eosinophils% 2.5 % (0-5); Hematocrit 39.6 % (37-47); Hemoglobin 12.8 g/dl (12.0-15.0); Lymphocyte % 17.3 % (19-41); Mean Corp Hgb Conc 32.3 g/gl (32-36); Mean Corpuscular Hgb 29.1 pg (27.0-32.0); Mean Platelet Vol. 9.7 fl (6.2-12.0); Monocyte# 0.75 X10^3/uL; Monocyte% 9.2 % (0-10); Neutrophil # 5.71 X10^3/uL (2.7-7.7); Neutrophil % 70.4 % (47-70); Platelet Count 192 K/mm3 (150-450); RBC Distribution Width CV 15.3 % (11.6-14.6); RBC Distribution Width SD 50.5 fl (35.1-43.9); White Blood Count 8.1 K/mm3 (4.4-11.0)
[2018-07-01 18:56] LABS: POSITIVE COUNT NO; POSITIVE DIFFERENTIAL NO; POSITIVE MORPHOLOGY NO
[2018-07-01 19:09] LABS: Anion Gap 6 (5-15); BUN 34 mg/dL (7-18); BUN/Creat Ratio 17.5 RATIO (10-20); Calcium,Total 9.1 mg/dL (8.5-10.1); Chloride 101 mmol/L (98-107); Creatinine, Serum 1.94 mg/dL (0.55-1.02); EST Glomerular Filtration Rate 28 mL/min (>60); Est Glom Filt Rate - Afr Amer 34 mL/min (>60); Estimated Creatinine Clearance 31.88 ml/min; Glucose 143 mg/dL (74-106); Potassium 3.9 mmol/L (3.5-5.1); Sodium Level 137 mmol/L (136-145)
[2018-07-01 19:26] VITALS: BP 148/97; PULSE 100; RESP 15; O2SAT 94
--- NOTE | 2018-07-01 19:28 | ED.DCSUM_ITS ---
- ER Visit Summary Date of Service: 07/01/18 Chief Complaint: Aspiration History of Present Illness: The patient is a 63 F presenting for evaluation after an aspiration event. Patient has a history of multiple sclerosis, and is actually on a normal diet. She has not had an aspiration event for at least 5 years. Patient apparently choked on a cinnamon roll today. Patient significant other did the Heimlich maneuver on her. He reports that she had some change in color, and was having a significant amount of stridor and difficulty breathing directly following the event. She has somewhat improved since then, but continues to have coarse breath sounds. EMS upon arrival noted the patient to be hypoxic and she does not have a prior history of this. Of note, the patient was recently increased on her baclofen, but they decreased it today as she was having some somnolence issues and she was not somnolent when she had this aspiration issue. Physical Examination: Vital signs notable for room air hypoxia with pulse ox of 88%. Well-nourished female no acute distress. Moist mucous membranes with food still noted on the patient's tongue but nothing in the posterior pharynx. Neck was supple. Heart regular rate. Lung sounds showed evidence of coarse breath sounds bilaterally with also upper airway sounds but no stridor. Patient has right-sided hemiparesis which is at baseline. Remainder physical otherwise unremarkable. Test Results: Chest x-ray demonstrates a chronically elevated right hemidiaphragm but no evidence of acute changes. Chemistry shows chronic kidney disease grossly unchanged from prior. Emergency Department Course and Treatment: Patient presented for evaluation secondary to an aspiration event. She did require supplemental oxygen which was given. Deep suction was performed a couple of times, but despite this and despite resting in the emergency department the patient continues to have pulse ox that drops to the 89-90 range without supplemental oxygen. I do believe the patient requires admission. I discussed this with pulmonology, who recommended letting the patient rest overnight and then assessing the need for bronchoscopy in the morning. I discussed this with the hospitalist and the patient will be admitted. Patient was given Unasyn for prophylaxis from aspiration pneumonia. Disposition: Admission Impression: 1. Aspiration 2. Hypoxia 3. Chronic kidney disease 4. Multiple sclerosis This note was generated with [employer] software. It may contain incorrect words, spelling, and punctuation that were not noted in review of the chart prior to signing ED Disposition - Plan for ED Patient: Chief Complaint: Shortness of Breath Referrals: Alexandria Carranza MD [Primary Care Provider] -
[2018-07-01 19:43] VITALS: BP 146/97; PULSE 97; RESP 15; O2SAT 98
[2018-07-01 20:15] VITALS: BMI 21.9
[2018-07-01 20:20] VITALS: BMI 21.9
[2018-07-01 20:37] VITALS: BP 138/86; PULSE 100; RESP 16; TEMP 36.6; O2SAT 97
[2018-07-01] MEDS: 0.9% Normal Saline 1,000 ML 100 ML IV (21:04)
--- NOTE | 2018-07-01 21:29 | HP.PCM_ITS ---
Problem List (1) Aspiration pneumonia Status: Acute (2) CKD (chronic kidney disease) stage 4, GFR 15-29 ml/min Status: Chronic (3) Multiple sclerosis Status: Chronic (4) Right hemiparesis Status: Chronic History of Present Illness Date of Admission: 07/01/18 Chief Complaint: Aspiration The patient is a 63 year old F with a PMH as above presenting from home after aspirating a cinnamon roll. Per her life care planner, she is a regular diet with modified liquid diet and she usually does very well with her food. He thinks that the recent increase in baclofen for spasticity snowed her and thats why she choked. He rushed to her room and performed the heimlich maneuver and dislodged a small piece of cinnamon roll. He said she was stridorous and dusky at first so he brought her in. In the ER, her CXR and labs were unremarkable but she did require O2 via NC which she does not normally wear at home. Past Medical History Past Medical History (Chronic Problems): Chronic Problems Hydronephrosis (Chronic) Vitamin D deficiency (Chronic) Muscle spasm (Chronic) OAB (overactive bladder) (Chronic) Allergic rhinitis (Chronic) Insomnia (Chronic) Hyperlipidemia (Chronic) CKD (chronic kidney disease) stage 4, GFR 15-29 ml/min (Chronic) Transient ischemic attack (Chronic) Multiple sclerosis (Chronic) Hydronephrosis, bilateral (Chronic) Right hemiparesis (Chronic) Migraine headache (Chronic) Chronic kidney disease (Chronic) Allergies ciprofloxacin [From Cipro] Adverse Reaction (Verified 07/01/18 20:19) hypotension interacts w/ zanaflex and baclofen doxycycline Adverse Reaction (Verified 07/01/18 20:19) hypotension interacts w/ zanaflex and baclofen levofloxacin [From Levaquin] Adverse Reaction (Verified 07/01/18 20:19) hypotension interacts w/ zanaflex and baclofen morphine Adverse Reaction (Verified 07/01/18 20:19) hallucinations piperacillin [From Zosyn] Adverse Reaction (Verified 07/01/18 20:19) hypotension interacts w/ zanaflex and baclofen sulfamethoxazole [From Bactrim] Adverse Reaction (Verified 07/01/18 20:19) hypotension interacts w/ zanaflex and baclofen tazobactam [From Zosyn] Adverse Reaction (Verified 07/01/18 20:19) hypotension interacts w/ zanaflex and baclofen trimethoprim [From Bactrim] Adverse Reaction (Verified 07/01/18 20:19) hypotension interacts w/ zanaflex and baclofen vancomycin Adverse Reaction (Verified 07/01/18 20:19) developed toxic levels Home Medications: Ambulatory Orders Medication Instructions Recorded Aspirin E.C. [Ecotrin] 81 mg PO QHS 12/04/16 Acetaminophen [Tylenol Tablet] 1,000 mg PO Q8H PRN PRN 02/20/17 Senna [Senokot] 2 tablet PO QHS 08/11/17 Atorvastatin Calcium [Lipitor] 40 mg PO QHS 09/05/17 Iron Polysaccharide Complex 150 mg PO DAILYCM 09/05/17 [Ferrex 150] Magnesium Oxide [Mag-Ox 400] 300 mg PO QHS 09/05/17 Melatonin 5 mg PO QHS 09/05/17 Amitriptyline HCl [Elavil] 75 mg PO QHS 09/19/17 Lactulose [Chronulac] 40 gm PO QODAY@2200 09/19/17 Tizanidine HCl [Zanaflex] 4 mg PO TID 09/19/17 Baclofen 20 mg PO QHS 07/01/18 Baclofen [Lioresal] 10 mg PO BID 07/01/18 Bisacodyl [Dulcolax] 10 mg RECTAL QODAY 07/01/18 Calcitriol [Rocaltrol] 0.25 mcg PO QHS 07/01/18 Cholecalciferol (Vitamin D3) 5,000 unit PO DAILY 07/01/18 [Vitamin D3] Fexofenadine HCl [Brook Allergy] 180 mg PO DAILY 07/01/18 Krill Oil 500 mg PO DAILY 07/01/18 L.acidoph,Paracasei, B.lactis 2 each PO QHS 07/01/18 [Probiotic] Vitamin B Complex 5,000 units PO DAILY 07/01/18 Surgical History: adenoidectomy, tonsillectomy, - - Right shoulder surgery, ORIF right wrist. 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 Denies: Shortness of breath at rest, Sputum production Gastrointestinal: Denies: Abdominal Pain, Nausea, Vomiting Genitourinary: Denies: Dysuria Musculoskeletal: Denies: Joint Pain, Joint Tenderness Skin: Denies: Rash, Wounds Neurological: Reports: - - Right arm is essentially non-functional and her left arm is normal. She can pivot but cannot walk and needs assistance for balance. Denies: Focal weakness, Numbness, Tingling Psychiatric: Denies: Anxiety, Depression Hematologic/ Lymphatic: Denies: Easy Bruising, Easy Bleeding VTE Information - Inpt Only VTE Present on Admission: No - Physical Exam General: Alert, Oriented x3, Cooperative, No apparent distress HEENT: Atraumatic, PERRLA, EOMI Neck: Supple, No JVD Lungs: Clear to auscultation, No rhonchi, No wheeze, Diminished Cardiovascular: Regular rate, Regular Rhythm, Normal S1, Normal S2, No murmurs Abdomen: Soft, Non Tender, Non-Distended, No Hepato-splenomegaly Extremities: No edema, Capillary Refill Less than 3 Seconds Skin: No rashes, No breakdown Musculoskeletal: No Tenderness to Palpation of Joints or Extremities Neurological: - - right arm is contracted, left arm is 5/5, ankles are deviated Psych/Mental Status: Normal Affect, Appropriate Vital Signs Temp Pulse Resp BP Pulse Ox 97.9 F 100 16 138/86 H 97 07/01/18 20:37 07/01/18 20:37 07/01/18 20:37 07/01/18 20:37 07/01/18 20:37 Oxygen Flow Rate (L/min) 2 Oxygen Delivery Method Nasal Cannula Weight: 152 lb 12.485 oz Body Mass Index (BMI) 21.9 Finger Stick Blood Glucose 67 Laboratory Tests Past 24 Hrs 07/01/18 07/01/18 18:43 18:43 WBC 8.1 RBC 4.40 Hgb 12.8 Hct 39.6 MCV 90.0 MCH 29.1 MCHC 32.3 RDW 15.3 H RDW Differential 50.5 H Plt Count 192 MPV 9.7 Immature Gran % (Auto) 0.200 Neut % (Auto) 70.4 H Lymph % (Auto) 17.3 L [place] % (Auto) 9.2 Eos % (Auto) 2.5 Baso % (Auto) 0.4 Absolute Neuts (auto) 5.7 Absolute Lymphs (auto) 1.40 Total Counted Not Reportable Sodium 137 Potassium 3.9 Chloride 101 Carbon Dioxide 30.0 Anion Gap 6 BUN 34 H Creatinine 1.94 H Estim Creat Clear Calc 31.88 Est GFR (MDRD) Af Amer 34 L Est GFR (MDRD) Non-Af 28 L BUN/Creatinine Ratio 17.5 Glucose 143 H Calcium 9.1 Assessment/Plan All Active Problems Complicated urinary tract infection (Acute) Fever (Acute) Acute kidney injury (Acute) Epistaxis (Acute) Lethargy (Acute) Hypotension (Acute) Acute on chronic kidney failure (Acute) Urinary tract infection (Acute) Dehydration (Acute) Change in mental status (Acute) Aspiration pneumonia (Acute) Ileus (Acute) Abdominal distention (Acute) Confusion (Acute) Encephalopathy (Acute) Catheter-associated urinary tract infection (Acute) 1. Aspiration - Will treat with unasyn for possible pneumonia - IVF@100 - Speech eval - PT/OT - Wean O2 as able - CBC and BMP in am - regular diet with thickened liquids based on her previous barium swallow on 11/2017 2. MS - She is not on any chronic medications and has been stable for over 20 years - Initially increase from baclofen 10 mg TID to baclofen 10 mg daily and 20 mg BID, will change to Baclofen 10 mg BID and 20 mg HS - She sees a neurologist that does not come here - c/w the zanaflex 3. CKD3 - Baseline creatinine is unchanged - Will monitor 4. HLD - stable - c/w statin DVT: Heparin/SCD Diet: NPO Code Visit Inpatient E&M: 45249 Init Hosp L3
[2018-07-01] MEDS: Heparin Injection (Vial) 5,000 UNIT/ML VIAL 5000 UNIT SC (22:29)
[2018-07-02] VITALS (7 sets, daily range): BP systolic 97–134; BP diastolic 53–82; PULSE 85–110; RESP 14–20; TEMP 36.8–38; O2SAT 92–98
[2018-07-02 05:10] LABS: Absolute Lymphocyte Count 1.78 X10^3/ul (0.83-4.51); Absolute Neutrophil Count 11.8 X10^3/uL (2.0-7.7); Anion Gap 8 (5-15); BUN 32 mg/dL (7-18); BUN/Creat Ratio 16.6 RATIO (10-20); Basophil# 0.02 X10^3/uL; Basophil% 0.1 % (0-1); Calcium,Total 8.7 mg/dL (8.5-10.1); Chloride 107 mmol/L (98-107); Creatinine, Serum 1.93 mg/dL (0.55-1.02); EST Glomerular Filtration Rate 28 mL/min (>60); Eosinophil# 0.08 X10^3/uL; Eosinophils% 0.5 % (0-5); Est Glom Filt Rate - Afr Amer 34 mL/min (>60); Estimated Creatinine Clearance 32.26 ml/min; Glucose 90 mg/dL (74-106); Hematocrit 36.8 % (37-47); Hemoglobin 12.2 g/dl (12.0-15.0); Lymphocyte # 1.78 X10^3/ul (4.0); Mean Corp Hgb Conc 33.2 g/gl (32-36); Mean Corpuscular Hgb 29.8 pg (27.0-32.0); Mean Corpuscular Volume 89.8 fL (81-99); Monocyte# 1.09 X10^3/uL; Monocyte% 7.3 % (0-10); Neutrophil # 11.82 X10^3/uL (2.7-7.7); Neutrophil % 79.8 % (47-70); Platelet Count 205 K/mm3 (150-450); Potassium 4.2 mmol/L (3.5-5.1); RBC Distribution Width CV 15.3 % (11.6-14.6); RBC Distribution Width SD 49.6 fl (35.1-43.9); Sodium Level 143 mmol/L (136-145); White Blood Count 14.8 K/mm3 (4.4-11.0)
[2018-07-02 05:18] LABS: POSITIVE COUNT NO; POSITIVE DIFFERENTIAL NO; POSITIVE MORPHOLOGY NO
--- NOTE | 2018-07-02 05:47 | NURSING ---
Informed Dr. Goldsmith of pts decline in vitals. BP: 97/61, HR 103, Temp 100.4 and flushed, RR 16, O2 @ 93% on 2L. MD felt it was a response from the pts hx with previous atb use and to keep monitoring. Also shared that because the MAP is >65 she was receiving the perfusion she needs. Also informed him that she is making urine. Dr. Goldsmith ordered Tylenol 650mg and stated to keep fluids running.
[2018-07-02] MEDS: Acetaminophen 325 MG Tablet 650 MG PO (05:54)
[2018-07-02] MEDS: 0.9% Normal Saline 1,000 ML 150 ML IV ×3 (06:57→21:04)
[2018-07-02] MEDS: 0.9% NaCl VAD Flush 10 ML IV (07:03)
--- NOTE | 2018-07-02 08:06 | PCM.PN.HOSP ---
Subjective: Patient is a 63-year-old lady with history of multiple sclerosis with significant debility who was brought to the emergency department after he choked on a cinnamon roll. There was a suspicion of possible aspiration pneumonia. Antibiotics initiated per protocol admitted to regular nursing floor for subsequent management Objective: GENERAL: cooperative HEENT: Atraumatic; EYES; Anicteric, NECK; supple, normal thyroid, RESPIRATORY: Diminished to auscultation bilaterally, CARDIOVASCULAR: Regular S1 S2, no audible murmurs GI: soft, non-tender, normoactive bowel sounds, : No Renal angle tenderness; EXTREMITIES: No edema, no clubbing, MUSCULOSKELTAL: No Joint Tenderness; NEURO: Awake; no lateralizing signs. SKIN: No Rash PSYCH; Normal affect Vitals/I&O's: Vital Signs Temp Pulse Resp BP Pulse Ox 98.9 F 94 14 103/60 93 07/02/18 06:55 07/02/18 06:55 07/02/18 06:55 07/02/18 06:55 07/02/18 07:00 Oxygen Flow Rate (L/min) 2 Oxygen Delivery Method Nasal Cannula Weight: 69.3 kg Body Mass Index (BMI) 21.9 Finger Stick Blood Glucose 67 Intake and Output for Last 24 Hours 06/30/18 07/01/18 07/02/18 23:59 23:59 23:59 Intake Total 1121 / 1121 Output Total 1950 / 1950 Balance -829 / -829 Laboratory Results 07/01/18 18:43: WBC 8.1, RBC 4.40, Hgb 12.8, Hct 39.6, MCV 90.0, MCH 29.1, MCHC 32.3, RDW 15.3 H, RDW Differential 50.5 H, Plt Count 192, MPV 9.7, Immature Gran % (Auto) 0.200, Neut % (Auto) 70.4 H, Lymph % (Auto) 17.3 L, [place] % (Auto) 9.2, Eos % (Auto) 2.5, Baso % (Auto) 0.4, Absolute Neuts (auto) 5.7, Absolute Lymphs (auto) 1.40, Total Counted Not Reportable 07/01/18 18:43: Sodium 137, Potassium 3.9, Chloride 101, Carbon Dioxide 30.0, Anion Gap 6, BUN 34 H, Creatinine 1.94 H, Estim Creat Clear Calc 31.88, Est GFR (MDRD) Af Amer 34 L, Est GFR (MDRD) Non-Af 28 L, BUN/Creatinine Ratio 17.5, Glucose 143 H, Calcium 9.1 07/02/18 04:45: WBC 14.8 H, RBC 4.10 L, Hgb 12.2, Hct 36.8 L, MCV 89.8, MCH 29.8, MCHC 33.2, RDW 15.3 H, RDW Differential 49.6 H, Plt Count 205, MPV 10.0, Immature Gran % (Auto) 0.300, Neut % (Auto) 79.8 H, Lymph % (Auto) 12.0 L, [place] % (Auto) 7.3, Eos % (Auto) 0.5, Baso % (Auto) 0.1, Absolute Neuts (auto) 11.8 H, Absolute Lymphs (auto) 1.78, Total Counted Not Reportable 07/02/18 04:45: Sodium 143, Potassium 4.2, Chloride 107, Carbon Dioxide 28.0, Anion Gap 8, BUN 32 H, Creatinine 1.93 H, Estim Creat Clear Calc 32.26, Est GFR (MDRD) Af Amer 34 L, Est GFR (MDRD) Non-Af 28 L, BUN/Creatinine Ratio 16.6, Glucose 90, Calcium 8.7 Current Medications Acetaminophen (Tylenol) 650 mg PO Q6H PRN PRN PRN Reason: FEVER Last Admin: 07/02/18 05:54 Dose: 650 mg Heparin Sodium (Beef Lung) (Heparin 500 Unit/5 Ml (100/Ml)) 500 unit IV UD PRN PRN Reason: HEPARIN FLUSH Heparin Sodium (Porcine) (Heparin Na) 5,000 unit SC Q12 [facility] Last Admin: 07/01/18 22:29 Dose: 5,000 unit Ampicillin Sodium/Sulbactam (Sodium 3 gm/ Sodium Chloride) 112 mls @ 150 mls/hr IV Q8 [facility] Last Admin: 07/02/18 06:57 Dose: 150 mls/hr Sodium Chloride () 1,000 mls @ 150 mls/hr IV .Q6H40M [facility] Last Admin: 07/02/18 06:57 Dose: 150 mls/hr Magnesium Hydroxide (Milk Of Magnesia) 30 ml PO DAILY PRN PRN PRN Reason: Constipation Sodium Chloride () 10 ml IV UD PRN PRN Reason: VAD FLUSH Last Admin: 07/02/18 07:03 Dose: 10 ml Medical Necessity - Tobacco Use Smoking Status: Never smoker Assessment/Plan All Active Problems Complicated urinary tract infection (Resolved) Fever (Resolved) Acute kidney injury (Resolved) Epistaxis (Resolved) Lethargy (Resolved) Hypotension (Resolved) Acute on chronic kidney failure (Acute) Urinary tract infection (Acute) Dehydration (Acute) Change in mental status (Acute) Aspiration pneumonia (Acute) Ileus (Resolved) Abdominal distention (Resolved) Confusion (Acute) Encephalopathy (Acute) Catheter-associated urinary tract infection (Resolved) Patient is a 63-year-old lady with history of multiple sclerosis with significant debility who was brought to the emergency department after he choked on a cinnamon roll. There was a suspicion of possible aspiration pneumonia. Antibiotics initiated per protocol admitted to regular nursing floor for subsequent management 1. Suspected aspiration pneumonia treated to regular nursing floor antibiotics initiated per protocol with Unasyn. Repeat imaging studies ordered for 07/03/2018 2. Multiple sclerosis with significant debility patient is on baclofen and Zanaflex 3. Chronic kidney disease baseline creatinine 2.0,; kidney function at baseline 4. Dyslipidemia-patient is on statin therapy, continued at home dose 5. DVT prophylaxis SC heparin Active Medications Acetaminophen (Tylenol) 650 mg PO Q6H PRN PRN PRN Reason: FEVER Last Admin: 07/02/18 05:54 Dose: 650 mg Amitriptyline HCl (Elavil) 75 mg PO QHS [facility] Aspirin (Ecotrin) 81 mg PO QHS [facility] Atorvastatin Calcium (Lipitor) 40 mg PO QHS [facility] Baclofen (Lioresal) 10 mg PO BID [facility] Bisacodyl (Dulcolax) 10 mg RECTAL QODAY [facility] Calcitriol (Rocaltrol) 0.25 mcg PO QHS [facility] Heparin Sodium (Beef Lung) (Heparin 500 Unit/5 Ml (100/Ml)) 500 unit IV UD PRN PRN Reason: HEPARIN FLUSH Heparin Sodium (Porcine) (Heparin Na) 5,000 unit SC Q12 [facility] Last Admin: 07/01/18 22:29 Dose: 5,000 unit Ampicillin Sodium/Sulbactam (Sodium 3 gm/ Sodium Chloride) 112 mls @ 150 mls/hr IV Q8 [facility] Last Admin: 07/02/18 06:57 Dose: 150 mls/hr Sodium Chloride () 1,000 mls @ 150 mls/hr IV .Q6H40M [facility] Last Admin: 07/02/18 06:57 Dose: 150 mls/hr Lactulose (Chronulac, Cephulac) 40 gm PO QODAY@2200 [facility] Magnesium Hydroxide (Milk Of Magnesia) 30 ml PO DAILY PRN PRN PRN Reason: Constipation Magnesium Oxide (Mag-Ox 400) 300 mg PO QHS [facility] Non-Formulary Medication (Baclofen [Baclofen]) 20 mg PO QHS [facility] Non-Formulary Medication (Cholecalciferol (Vitamin D3) [Vitamin D3]) 5,000 unit PO DAILY [facility] Non-Formulary Medication (Fexofenadine Hcl [Brook Allergy]) 180 mg PO DAILY [facility] Non-Formulary Medication (Krill Oil [Krill Oil]) 500 mg PO DAILY [facility] Non-Formulary Medication (L.Acidoph,Paracasei, B.Lactis [Probiotic]) 2 each PO QHS [facility] Non-Formulary Medication (Melatonin [Melatonin]) 5 mg PO QHS [facility] Non-Formulary Medication (Vitamin B Complex [Vitamin B Complex]) 5,000 units PO DAILY [facility] Senna (Senokot) 2 tablet PO QHS [facility] Sodium Chloride () 10 ml IV UD PRN PRN Reason: VAD FLUSH Last Admin: 07/02/18 07:03 Dose: 10 ml Tizanidine HCl (Zanaflex) 4 mg PO TID [facility] Clinical Impression(s) from Imaging Studies Chest X-Ray 07/01/18 18:45 IMPRESSION: There are no acute findings. There is an elevated right hemidiaphragm. This is decreasing in right lung volume. This is a stable finding. Electronically Signed: Peter Raymundo MD at 18:58 EDT , Service support , Code Visit Inpatient E&M: 52103 Subs Hosp L3
[2018-07-02] MEDS: Loratadine 10 MG Tablet PO (09:45)
[2018-07-02] MEDS: tiZANidine HCl 2 MG Tablet 4 MG PO ×3 (09:45→22:17)
[2018-07-02] MEDS: Heparin Injection (Vial) 5,000 UNIT/ML VIAL 5000 UNIT SC ×2 (09:45→21:05)
[2018-07-02] MEDS: Baclofen 10 MG Tablet PO ×2 (09:46→17:05)
--- NOTE | 2018-07-02 13:12 | CM.UR ---
Met face to face with patient and her spouse. 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 Denies any needs as this was an isolated incident. Denies need any assistance, DME, etc. Plan is to return home with . Reinforced business case analyst are available should any needs arise. Verb understanding. Candelario Gregorio, [place], [facility].
--- NOTE | 2018-07-02 13:13 | PCA ---
Patient states she was already washed up this morning. Offered to wash pt up again later if the pt preferred.
[2018-07-02] MEDS: Aspirin E.C. 81 MG Tablet PO (21:04)
[2018-07-02] MEDS: Amitriptyline 25 MG Tablet 75 MG PO (21:05)
[2018-07-02] MEDS: Atorvastatin Calcium 40 MG Tablet PO (21:06)
[2018-07-02] MEDS: MELATONIN 10 MG TABLET 5 MG PO (21:06)
[2018-07-02] MEDS: Baclofen 10 MG Tablet 20 MG PO (21:06)
[2018-07-02] MEDS: Senna Tablet 2 TABLET PO (21:07)
[2018-07-02] MEDS: Calcitriol 0.25 MCG Capsule PO (21:09)
[2018-07-02] MEDS: Magnesium Oxide 400 MG Tablet PO (22:17)
[2018-07-03 03:00] VITALS: BP 111/64; PULSE 81; RESP 18; TEMP 36.9; O2SAT 95
[2018-07-03] MEDS: 0.9% Normal Saline 1,000 ML 150 ML IV ×2 (04:18→11:04)
[2018-07-03] MEDS: tiZANidine HCl 2 MG Tablet 4 MG PO ×2 (04:22→13:27)
[2018-07-03] MEDS: 0.9% NaCl VAD Flush 10 ML IV ×3 (05:44→13:28)
--- NOTE | 2018-07-03 05:55 | RAD_ITS ---
STUDY: X-RAY CHEST REASON FOR EXAM: Female, 63 years old. Shortness of breath. Aspiration. TECHNIQUE: Single AP portable view of the chest. Patient is rotated. COMPARISON: 07/01/2018 FINDINGS: Left Port-A-Cath is present in place. There is interval increased elevation of the right hemidiaphragm with significant diminished in right lung volume. Large amount of fecal debris/colonic gas present into most of the right chest cavity. There is compressive atelectasis in the right lung base and in left basilar region. Heart size is difficult to evaluate on this exam. Normal visualized pulmonary arteries. There is atherosclerotic tortuosity of the aortic arch and descending thoracic aorta. There is demineralization of the osseous structures. Gas-filled bowel loops are seen in the visualized upper abdomen. RAD/Chest 1 View (Portable) IMPRESSION: 1. Interval increased elevation of the right hemidiaphragm and significant decreased in right lung volume. 2. Large amount of fecal debris/colonic gas is seen occupying most of the right chest cavity. Electronically Signed: Kvng Powell MD at 10:15 EDT Tel , Service support ,
[2018-07-03 06:05] LABS: Hematocrit 29.6 % (37-47); Hemoglobin 9.6 g/dl (12.0-15.0); Mean Corp Hgb Conc 32.4 g/gl (32-36); Mean Corpuscular Hgb 30.1 pg (27.0-32.0); Mean Corpuscular Volume 92.8 fL (81-99); Mean Platelet Vol. 9.9 fl (6.2-12.0); Platelet Count 156 K/mm3 (150-450); RBC Distribution Width CV 15.6 % (11.6-14.6); RBC Distribution Width SD 51.1 fl (35.1-43.9); Red Blood Count 3.19 M/mm3 (4.2-5.4); White Blood Count 7.2 K/mm3 (4.4-11.0)
[2018-07-03 06:12] LABS: Scan Indicated on CBC? Y/N NO
[2018-07-03 06:27] LABS: Anion Gap 5 (5-15); BUN 31 mg/dL (7-18); BUN/Creat Ratio 15.7 RATIO (10-20); Calcium,Total 8.1 mg/dL (8.5-10.1); Chloride 110 mmol/L (98-107); Creatinine, Serum 1.98 mg/dL (0.55-1.02); EST Glomerular Filtration Rate 27 mL/min (>60); Est Glom Filt Rate - Afr Amer 33 mL/min (>60); Estimated Creatinine Clearance 31.45 ml/min; Glucose 99 mg/dL (74-106); Magnesium 2.3 mg/dL (1.6-2.6); Potassium 3.8 mmol/L (3.5-5.1); Sodium Level 141 mmol/L (136-145)
[2018-07-03 06:43] VITALS: O2SAT 94
--- NOTE | 2018-07-03 07:36 | PCM.PN.HOSP ---
Subjective: Patient condition clinically improved. requested for patient to be discharged home Objective: GENERAL: cooperative HEENT: Atraumatic; EYES; Anicteric, NECK; supple, normal thyroid, RESPIRATORY: Diminished to auscultation bilaterally, CARDIOVASCULAR: Regular S1 S2, no audible murmurs GI: soft, non-tender, normoactive bowel sounds, : No Renal angle tenderness; EXTREMITIES: No edema, no clubbing, MUSCULOSKELTAL: No Joint Tenderness; NEURO: Awake; no lateralizing signs. SKIN: No Rash PSYCH; Normal affect Vitals/I&O's: Vital Signs Temp Pulse Resp BP Pulse Ox 98.5 F 81 18 111/64 94 07/03/18 03:00 07/03/18 03:00 07/03/18 03:00 07/03/18 03:00 07/03/18 06:43 Oxygen Flow Rate (L/min) 2 Oxygen Delivery Method Nasal Cannula Weight: 69.3 kg Body Mass Index (BMI) 21.9 Finger Stick Blood Glucose 67 Intake and Output for Last 24 Hours 07/01/18 07/02/18 07/03/18 23:59 23:59 23:59 Intake Total 3387 / 3387 2121 / 2121 Output Total 2850 / 2850 1500 / 1500 Balance 537 / 537 621 / 621 Laboratory Results 07/03/18 05:40: WBC 7.2, RBC 3.19 L, Hgb 9.6 L, Hct 29.6 L, MCV 92.8, MCH 30.1, MCHC 32.4, RDW 15.6 H, RDW Differential 51.1 H, Plt Count 156, MPV 9.9 07/03/18 05:40: Sodium 141, Potassium 3.8, Chloride 110 H, Carbon Dioxide 26.0, Anion Gap 5, BUN 31 H, Creatinine 1.98 H, Estim Creat Clear Calc 31.45, Est GFR (MDRD) Af Amer 33 L, Est GFR (MDRD) Non-Af 27 L, BUN/Creatinine Ratio 15.7, Glucose 99, Calcium 8.1 L, Magnesium 2.3 Current Medications Acetaminophen (Tylenol) 650 mg PO Q6H PRN PRN PRN Reason: FEVER Last Admin: 07/02/18 05:54 Dose: 650 mg Amitriptyline HCl (Elavil) 75 mg PO QHS MARY Last Admin: 07/02/18 21:05 Dose: 75 mg Aspirin (Ecotrin) 81 mg PO QHS [facility] Last Admin: 07/02/18 21:04 Dose: 81 mg Atorvastatin Calcium (Lipitor) 40 mg PO QHS [facility] [place] Last Admin: 07/02/18 21:06 Dose: 40 mg Baclofen (Lioresal) 20 mg PO QHS [facility] [place] Last Admin: 07/02/18 21:06 Dose: 20 mg Baclofen (Lioresal) 10 mg PO 1000,1600 [facility] Last Admin: 07/02/18 17:05 Dose: 10 mg Bisacodyl (Dulcolax) 10 mg RECTAL QODAY [facility] Calcitriol (Rocaltrol) 0.25 mcg PO QHS [facility] Last Admin: 07/02/18 21:09 Dose: 0.25 mcg Cholecalciferol (Vitamin D) 5,000 unit PO DAILY [facility] Last Admin: 07/02/18 09:46 Dose: 5,000 unit Heparin Sodium (Beef Lung) (Heparin 500 Unit/5 Ml (100/Ml)) 500 unit IV UD PRN PRN Reason: HEPARIN FLUSH Heparin Sodium (Porcine) (Heparin Na) 5,000 unit SC Q12 [facility] [place] Last Admin: 07/02/18 21:05 Dose: 5,000 unit Ampicillin Sodium/Sulbactam (Sodium 3 gm/ Sodium Chloride) 112 mls @ 150 mls/hr IV Q8 [facility] [place] Last Admin: 07/03/18 04:19 Dose: 150 mls/hr Sodium Chloride () 1,000 mls @ 150 mls/hr IV .Q6H40M [facility] [place] Last Admin: 07/03/18 04:18 Dose: 150 mls/hr Lactobacillus Acidophilus (Acidophilus) 2 tablet PO QHS [facility] [place] Last Admin: 07/02/18 21:04 Dose: 2 tablet Lactulose (Chronulac, Cephulac) 40 gm PO QODAY@2200 [facility] Loratadine (Claritin) 10 mg PO DAILY [facility] [place] Last Admin: 07/02/18 09:45 Dose: 10 mg Magnesium Hydroxide (Milk Of Magnesia) 30 ml PO DAILY PRN PRN PRN Reason: Constipation Magnesium Oxide (Mag-Ox 400) 400 mg PO QHS [facility] [place] Last Admin: 07/02/18 22:17 Dose: 400 mg Melatonin (Melatonin) 5 mg PO QHS [facility] [place] Last Admin: 07/02/18 21:06 Dose: 5 mg Senna (Senokot) 2 tablet PO QHS MARY Last Admin: 07/02/18 21:07 Dose: 2 tablet Sodium Chloride () 10 ml IV UD PRN PRN Reason: VAD FLUSH Last Admin: 07/03/18 05:45 Dose: 10 ml Tizanidine HCl (Zanaflex) 4 mg PO TID MARY Last Admin: 07/03/18 04:22 Dose: 4 mg Medical Necessity - Tobacco Use Smoking Status: Never smoker Assessment/Plan All Active Problems Complicated urinary tract infection (Resolved) Fever (Resolved) Acute kidney injury (Resolved) Epistaxis (Resolved) Lethargy (Resolved) Hypotension (Resolved) Acute on chronic kidney failure (Resolved) Urinary tract infection (Resolved) Dehydration (Resolved) Change in mental status (Resolved) Aspiration pneumonia (Acute) Ileus (Resolved) Abdominal distention (Resolved) Confusion (Acute) Encephalopathy (Acute) Catheter-associated urinary tract infection (Resolved) Patient is a 63-year-old lady with history of multiple sclerosis with significant debility who was brought to the emergency department after he choked on a cinnamon roll. There was a suspicion of possible aspiration pneumonia. Antibiotics initiated per protocol admitted to regular nursing floor for subsequent management 1. Suspected aspiration pneumonia treated to regular nursing floor antibiotics initiated per protocol with Unasyn. Repeat imaging studies ordered for 07/03/2018 2. Multiple sclerosis with significant debility patient is on baclofen and Zanaflex 3. Chronic kidney disease baseline creatinine 2.0,; kidney function at baseline 4. Dyslipidemia-patient is on statin therapy, continued at home dose 5. DVT prophylaxis SC heparin Active Medications Acetaminophen (Tylenol) 650 mg PO Q6H PRN PRN PRN Reason: FEVER Last Admin: 07/02/18 05:54 Dose: 650 mg Amitriptyline HCl (Elavil) 75 mg PO QHS [facility] Aspirin (Ecotrin) 81 mg PO QHS MARY Atorvastatin Calcium (Lipitor) 40 mg PO QHS MARY Baclofen (Lioresal) 10 mg PO BID MARY Bisacodyl (Dulcolax) 10 mg RECTAL QODAY [facility] Calcitriol (Rocaltrol) 0.25 mcg PO QHS [facility] [place] Heparin Sodium (Beef Lung) (Heparin 500 Unit/5 Ml (100/Ml)) 500 unit IV UD PRN PRN Reason: HEPARIN FLUSH Heparin Sodium (Porcine) (Heparin Na) 5,000 unit SC Q12 [facility] Last Admin: 07/01/18 22:29 Dose: 5,000 unit Ampicillin Sodium/Sulbactam (Sodium 3 gm/ Sodium Chloride) 112 mls @ 150 mls/hr IV Q8 [facility] [place] Last Admin: 07/02/18 06:57 Dose: 150 mls/hr Sodium Chloride () 1,000 mls @ 150 mls/hr IV .Q6H40M [facility] [place] Last Admin: 07/02/18 06:57 Dose: 150 mls/hr Lactulose (Chronulac, Cephulac) 40 gm PO QODAY@2200 [facility] [place] Magnesium Hydroxide (Milk Of Magnesia) 30 ml PO DAILY PRN PRN PRN Reason: Constipation Magnesium Oxide (Mag-Ox 400) 300 mg PO QHS [facility] Non-Formulary Medication (Baclofen [Baclofen]) 20 mg PO QHS [facility] Non-Formulary Medication (Cholecalciferol (Vitamin D3) [Vitamin D3]) 5,000 unit PO DAILY [facility] [place] Non-Formulary Medication (Fexofenadine Hcl [Brook Allergy]) 180 mg PO DAILY [facility] [place] Non-Formulary Medication (Krill Oil [Krill Oil]) 500 mg PO DAILY [facility] [place] Non-Formulary Medication (L.Acidoph,Paracasei, B.Lactis [Probiotic]) 2 each PO QHS MARY Non-Formulary Medication (Melatonin [Melatonin]) 5 mg PO QHS [facility] [place] Non-Formulary Medication (Vitamin B Complex [Vitamin B Complex]) 5,000 units PO DAILY [facility] Senna (Senokot) 2 tablet PO QHS [facility] Sodium Chloride () 10 ml IV UD PRN PRN Reason: VAD FLUSH Last Admin: 07/02/18 07:03 Dose: 10 ml Tizanidine HCl (Zanaflex) 4 mg PO TID [facility] Clinical Impression(s) from Imaging Studies Chest X-Ray 07/01/18 18:45 IMPRESSION: There are no acute findings. There is an elevated right hemidiaphragm. This is decreasing in right lung volume. This is a stable finding. Electronically Signed: Peter Raymundo MD at 18:58 EDT , Service support , Code Visit Inpatient E&M: 06236 Subs Hosp L2
[2018-07-03 07:37] VITALS: BP 101/62; PULSE 69; RESP 20; TEMP 36.5; O2SAT 94
[2018-07-03] MEDS: Loratadine 10 MG Tablet PO (07:43)
[2018-07-03] MEDS: Baclofen 10 MG Tablet PO (07:44)
[2018-07-03] MEDS: Bisacodyl 10 MG Suppository RECTAL (07:47)
[2018-07-03 07:53] VITALS: O2SAT 93
[2018-07-03 08:05] VITALS: O2SAT 95
[2018-07-03] MEDS: Heparin Injection (Vial) 5,000 UNIT/ML VIAL 5000 UNIT SC (10:43)
--- NOTE | 2018-07-03 12:32 | DCINST_ITS ---
Your food should be the consistency of: Mechanical soft (ground) Discharge Activity: No Restrictions Allergies/Adverse Reactions: Allergies ciprofloxacin [From Cipro] Adverse Reaction (Verified 07/01/18 20:19) hypotension interacts w/ zanaflex and baclofen doxycycline Adverse Reaction (Verified 07/01/18 20:19) hypotension interacts w/ zanaflex and baclofen levofloxacin [From Levaquin] Adverse Reaction (Verified 07/01/18 20:19) hypotension interacts w/ zanaflex and baclofen morphine Adverse Reaction (Verified 07/01/18 20:19) hallucinations piperacillin [From Zosyn] Adverse Reaction (Verified 07/01/18 20:19) hypotension interacts w/ zanaflex and baclofen sulfamethoxazole [From Bactrim] Adverse Reaction (Verified 07/01/18 20:19) hypotension interacts w/ zanaflex and baclofen tazobactam [From Zosyn] Adverse Reaction (Verified 07/01/18 20:19) hypotension interacts w/ zanaflex and baclofen trimethoprim [From Bactrim] Adverse Reaction (Verified 07/01/18 20:19) hypotension interacts w/ zanaflex and baclofen vancomycin Adverse Reaction (Verified 07/01/18 20:19) developed toxic levels Medications to take at Discharge Aspirin E.C. [Ecotrin] 81 mg PO QHS 12/04/16 Acetaminophen [Tylenol Tablet] 1,000 mg PO Q8H PRN PRN 02/20/17 Senna [Senokot] 2 tablet PO QHS 08/11/17 Atorvastatin Calcium [Lipitor] 40 mg PO QHS 09/05/17 Iron Polysaccharide Complex [Ferrex 150] 150 mg PO DAILYCM 09/05/17 Magnesium Oxide [Mag-Ox 400] 300 mg PO QHS 09/05/17 Melatonin 5 mg PO QHS 09/05/17 Amitriptyline HCl [Elavil] 75 mg PO QHS 09/19/17 Lactulose [Chronulac] 40 gm PO QODAY@2200 09/19/17 Tizanidine HCl [Zanaflex] 4 mg PO TID 09/19/17 Baclofen 20 mg PO QHS 07/01/18 Baclofen [Lioresal] 10 mg PO BID 07/01/18 Bisacodyl [Dulcolax] 10 mg RECTAL QODAY 07/01/18 Calcitriol [Rocaltrol] 0.25 mcg PO QHS 07/01/18 Cholecalciferol (Vitamin D3) [Vitamin D3] 5,000 unit PO DAILY 07/01/18 Fexofenadine HCl [Brook Allergy] 180 mg PO DAILY 07/01/18 Krill Oil 500 mg PO DAILY 07/01/18 L.acidoph,Paracasei, B.lactis [Probiotic] 2 each PO QHS 07/01/18 Vitamin B Complex 5,000 units PO DAILY 07/01/18 Amoxicillin/Potassium Clav [Amox Tr-K Clv 875-125 mg Tab] 1 each PO BID #14 tablet 07/03/18 The following prescriptions were given: Amoxicillin/Potassium Clav [Amox Tr-K Clv 875-125 mg Tab] 1 each PO BID #14 tablet Primary Care Physician: Alexandria Carranza MD [Primary Care Provider] - Please follow up with your Primary Care Physician in: in 3-5 days Test Results: Test results from this visit will be discussed in further detail at your follow- up appointment, if applicable.
--- NOTE | 2018-07-03 12:34 | PCM.DC.SUM ---
Discharge Date and Diagnosis Date of Admission: 07/01/18 Date of Discharge: 07/03/18 - Secondary Discharge Diagnosis Chronic Problems Hydronephrosis (Chronic) Vitamin D deficiency (Chronic) Muscle spasm (Chronic) OAB (overactive bladder) (Chronic) Allergic rhinitis (Chronic) Insomnia (Chronic) Hyperlipidemia (Chronic) CKD (chronic kidney disease) stage 4, GFR 15-29 ml/min (Chronic) Transient ischemic attack (Chronic) Multiple sclerosis (Chronic) Hydronephrosis, bilateral (Chronic) Right hemiparesis (Chronic) Migraine headache (Chronic) Chronic kidney disease (Chronic) Hospital Course and Treatment Imaging Results: Operations: None Summary of Care Provided: Patient is a 63-year-old lady with history of multiple sclerosis with significant debility who was brought to the emergency department after he choked on a cinnamon roll. There was a suspicion of possible aspiration pneumonia. Antibiotics initiated per protocol admitted to regular nursing floor for subsequent management 1. Suspected aspiration pneumonia treated to regular nursing floor antibiotics initiated per protocol with Unasyn. Repeat imaging studies ordered for 07/03/2018. Patient did improve clinically was discharged home on Augmentin for 7 more days 2. Multiple sclerosis with significant debility patient is on baclofen and Zanaflex 3. Chronic kidney disease baseline creatinine 2.0,; kidney function at baseline 4. Dyslipidemia-patient is on statin therapy, continued at home dose 5. DVT prophylaxis SC heparin Physical examination on discharge: GENERAL: cooperative HEENT: Atraumatic; EYES; Anicteric, NECK; supple, normal thyroid, RESPIRATORY: Diminished to auscultation bilaterally, CARDIOVASCULAR: Regular S1 S2, no audible murmurs GI: soft, non-tender, normoactive bowel sounds, : No Renal angle tenderness; EXTREMITIES: No edema, no clubbing, MUSCULOSKELETAL: No Joint Tenderness; NEURO: Awake; no lateralizing signs. SKIN: No Rash PSYCH; Normal affect Discharge Diet: Soft diet Discharge Activity: No Restrictions Home Medications: Medications to take at Discharge Aspirin E.C. [Ecotrin] 81 mg PO QHS 12/04/16 Acetaminophen [Tylenol Tablet] 1,000 mg PO Q8H PRN PRN 02/20/17 Senna [Senokot] 2 tablet PO QHS 08/11/17 Atorvastatin Calcium [Lipitor] 40 mg PO QHS 09/05/17 Iron Polysaccharide Complex [Ferrex 150] 150 mg PO DAILYCM 09/05/17 Magnesium Oxide [Mag-Ox 400] 300 mg PO QHS 09/05/17 Melatonin 5 mg PO QHS 09/05/17 Amitriptyline HCl [Elavil] 75 mg PO QHS 09/19/17 Lactulose [Chronulac] 40 gm PO QODAY@2200 09/19/17 Tizanidine HCl [Zanaflex] 4 mg PO TID 09/19/17 Baclofen 20 mg PO QHS 07/01/18 Baclofen [Lioresal] 10 mg PO BID 07/01/18 Bisacodyl [Dulcolax] 10 mg RECTAL QODAY 07/01/18 Calcitriol [Rocaltrol] 0.25 mcg PO QHS 07/01/18 Cholecalciferol (Vitamin D3) [Vitamin D3] 5,000 unit PO DAILY 07/01/18 Fexofenadine HCl [Brook Allergy] 180 mg PO DAILY 07/01/18 Krill Oil 500 mg PO DAILY 07/01/18 L.acidoph,Paracasei, B.lactis [Probiotic] 2 each PO QHS 07/01/18 Vitamin B Complex 5,000 units PO DAILY 07/01/18 Amoxicillin/Potassium Clav [Amox Tr-K Clv 875-125 mg Tab] 1 each PO BID #14 tablet 07/03/18 Following Prescrptions Were Given to Patient: Amoxicillin/Potassium Clav [Amox Tr-K Clv 875-125 mg Tab] 1 each PO BID #14 tablet Primary Care Physician: Alexandria Carranza MD [Primary Care Provider] - Please follow up with your Primary Care Physician in: in 3-5 days Disposition: Home Minutes spent on discharge:: 35 Patient Condition:: Stable Medical Necessity - Tobacco Use Smoking Status: Never smoker Meaningful Use Info Meaningful Use Diagnoses (Choose all that apply): None applicable Code Visit Inpatient E&M: 92056 Disch Hosp
[2018-07-03 13:17] VITALS: BP 131/85; PULSE 95; RESP 16; TEMP 36.5; O2SAT 99
== END 2018-07-03 14:01 | disposition home or self-care (01) | DRG 179 ==
LOC: ED 18:51 → MS3 19:37
PROVIDERS: Admitting Provider Family Medicine; Emergency Provider Emergency Medicine; Family Provider Internal Medicine; PCP Internal Medicine; Visit Provider Internal Medicine
DX: J69.0 Pneumonitis due to inhalation of food and vomit (principal); G35 Multiple sclerosis; N18.3 Chronic kidney disease, stage 3 (moderate); E78.5 Hyperlipidemia, unspecified; R53.81 Other malaise
CPT/HCPCS: 31720; 36591; 71045; 80048; 83735; 85025; 85027; 92526; 97162; 97166; 97802; 99284; J7030; A4216; J0295; J3490

== ENCOUNTER → 2018-08-11 14:38 | Outpatient (CLI) | payer MEDICARE, SELFPAY ==
[2018-08-11 15:34] LABS: Absolute Neutrophil Count 5.5 X10^3/uL (2.0-7.7); Basophil# 0.02 X10^3/uL; Basophil% 0.2 % (0-1); Eosinophil# 0.29 X10^3/uL; Eosinophils% 3.3 % (0-5); Hematocrit 41.1 % (37-47); Mean Corp Hgb Conc 31.6 g/gl (32-36); Mean Corpuscular Volume 91.7 fL (81-99); Mean Platelet Vol. 9.9 fl (6.2-12.0); Monocyte# 0.83 X10^3/uL; Monocyte% 9.4 % (0-10); Neutrophil # 5.46 X10^3/uL (2.7-7.7); Neutrophil % 62.1 % (47-70); Platelet Count 212 K/mm3 (150-450); RBC Distribution Width CV 15.9 % (11.6-14.6); Red Blood Count 4.48 M/mm3 (4.2-5.4); White Blood Count 8.8 K/mm3 (4.4-11.0)
[2018-08-11 15:36] LABS: POSITIVE COUNT NO; POSITIVE DIFFERENTIAL NO; POSITIVE MORPHOLOGY NO
[2018-08-11 16:04] LABS: ALB/GLOB Ratio 0.8 RATIO (0.9-2.4); AST(SGOT) 34 U/L (15-37); Alanine Aminotransfer ALT/SGPT 57 U/L (13-56); Albumin, Serum 3.6 g/dL (3.2-5.0); Alkaline Phosphatase 154 U/L (45-117); Anion Gap 7 (5-15); BUN 30 mg/dL (7-18); BUN/Creat Ratio 16.8 RATIO (10-20); Calcium,Total 9.3 mg/dL (8.5-10.1); Chloride 103 mmol/L (98-107); Creatinine, Serum 1.79 mg/dL (0.55-1.02); EST Glomerular Filtration Rate 30 mL/min (>60); Est Glom Filt Rate - Afr Amer 37 mL/min (>60); Globulin 4.6 g/dL (2.2-4.2); Glucose 75 mg/dL (74-106); Potassium 4.6 mmol/L (3.5-5.1); Protein, Total 8.2 g/dL (6.4-8.2); Sodium Level 137 mmol/L (136-145)
== END ==
PROVIDERS: Family Provider Internal Medicine; PCP Internal Medicine; Visit Provider Internal Medicine
DX: G35 Multiple sclerosis (principal); R53.81 Other malaise; G81.91 Hemiplegia, unspecified affecting right dominant side
CPT/HCPCS: 36591; 80053; 85025; A4216

== ENCOUNTER → 2018-10-13 15:10 | Outpatient (CLI) | payer MEDICARE, SELFPAY ==
[2018-10-13 16:49] LABS: Microalbumin,Random Urine 94.9 mg/L (NO RANGE EST.); Microalbumin:Creatinine Ratio 317.4 mg/g CRE (<30 mg/g CRE); Protein, Urine (Random) 27.4 mg/dL (<11.9); Protein:Creat Ratio 916 mg/g CRE (0-200)
== END ==
PROVIDERS: Family Provider Internal Medicine; PCP Internal Medicine; Visit Provider Internal Medicine
DX: N18.3 Chronic kidney disease, stage 3 (moderate) (principal); N25.81 Secondary hyperparathyroidism of renal origin; E55.9 Vitamin D deficiency, unspecified; E61.1 Iron deficiency; G35 Multiple sclerosis; R53.81 Other malaise; G81.91 Hemiplegia, unspecified affecting right dominant side
CPT/HCPCS: 36591; 82043; 82570; 84156; A4216

== ENCOUNTER → 2018-11-17 14:07 | Outpatient (CLI) | payer MEDICARE, SELFPAY ==
[2018-11-17 14:16] LABS: Mucous, Urine 0 SEEN /hpf (<or=2+); Squamous Epithelial Cells - UA 0 SEEN /hpf (5-10)
[2018-11-17 14:48] LABS: Absolute Lymphocyte Count 2.33 X10^3/ul (0.83-4.51); Absolute Neutrophil Count 6.8 X10^3/uL (2.0-7.7); Basophil# 0.04 X10^3/uL; Basophil% 0.4 % (0-1); Color, Urine Yellow (Yellow); Eosinophil# 0.25 X10^3/uL; Eosinophils% 2.4 % (0-5); Glucose, Dipstick Normal (Normal); Hemoglobin 13.4 g/dl (12.0-15.0); Ketone-Dipstick Negative (Negative); Leukocyte Esterase-Dipstick 500 /ul (Negative); Lymphocyte # 2.33 X10^3/ul (4.0); Lymphocyte % 22.8 % (19-41); Mean Corp Hgb Conc 31.9 g/gl (32-36); Mean Corpuscular Volume 90.9 fL (81-99); Mean Platelet Vol. 9.8 fl (6.2-12.0); Monocyte# 0.82 X10^3/uL; Neutrophil # 6.76 X10^3/uL (2.7-7.7); Neutrophil % 66.1 % (47-70); Nitrite-Dipstick Positive (Negative); Occult Blood-Urine 250 /ul (Negative); POSITIVE COUNT NO; POSITIVE DIFFERENTIAL NO; POSITIVE MORPHOLOGY NO; Platelet Count 196 K/mm3 (150-450); Protein-Dipstick 30 mg/dl (Negative); RBC Distribution Width CV 15.3 % (11.6-14.6); RBC Distribution Width SD 50.7 fl (35.1-43.9); Red Blood Count 4.62 M/mm3 (4.2-5.4); Specific Gravity, Urine 1.005 (1.002-1.030); Urine Bilirubin Dipstick Negative (Negative); Urine Clarity Sl. Cloudy (Clear); Urine Urobilinogen Normal (Normal); White Blood Count 10.2 K/mm3 (4.4-11.0)
[2018-11-17 14:55] LABS: Bacteria 1+ /hpf (None Seen); Red Blood Cells-Urine 5-10 SEEN /hpf (0-5); White Blood Cells 10-25 SEEN /hpf (0-5)
[2018-11-17 14:56] LABS: Amorphous Sediment 2+
[2018-11-17 15:04] LABS: BUN 20 mg/dL (7-18); EST Glomerular Filtration Rate 32 mL/min (>60); Glucose 103 mg/dL (74-106)
[2018-11-17 15:05] LABS: ALB/GLOB Ratio 0.8 RATIO (0.9-2.4); AST(SGOT) 41 U/L (15-37); Alanine Aminotransfer ALT/SGPT 56 U/L (13-56); Albumin, Serum 3.6 g/dL (3.2-5.0); Alkaline Phosphatase 123 U/L (45-117); Anion Gap 8 (5-15); BUN/Creat Ratio 11.8 RATIO (10-20); Chloride 104 mmol/L (98-107); Est Glom Filt Rate - Afr Amer 39 mL/min (>60); Globulin 4.5 g/dL (2.2-4.2); Phosphorus 3.3 mg/dL (2.5-4.9); Potassium 4.4 mmol/L (3.5-5.1); Protein, Total 8.1 g/dL (6.4-8.2); Sodium Level 138 mmol/L (136-145)
[2018-11-17 15:11] LABS: Microalbumin,Random Urine 53.4 mg/L (NO RANGE EST.); Microalbumin:Creatinine Ratio 325.6 mg/g CRE (<30 mg/g CRE); Protein, Urine (Random) 21.6 mg/dL (<11.9); Protein:Creat Ratio 1317 mg/g CRE (0-200)
[2018-11-17 15:23] LABS: PTHIN 175.6 pg/mL (18.4-80.1)
[2018-11-17 15:55] LABS: Vitamin D,25 Hydroxy 30.9 ng/mL (29.95-100.01)
== END ==
PROVIDERS: Family Provider Internal Medicine; PCP Internal Medicine; Referring Provider Internal Medicine; Visit Provider Internal Medicine
DX: N18.3 Chronic kidney disease, stage 3 (moderate) (principal); E55.9 Vitamin D deficiency, unspecified; N25.81 Secondary hyperparathyroidism of renal origin; E61.1 Iron deficiency; G35 Multiple sclerosis; R53.81 Other malaise; G81.91 Hemiplegia, unspecified affecting right dominant side; R35.0 Frequency of micturition
CPT/HCPCS: 36591; 80053; 81001; 82043; 82306; 82570; 83970; 84100; 84156; 85025; 87077; 87086; 87088; 87186; A4216

== ENCOUNTER → 2018-12-29 13:31 | Outpatient (CLI) | payer MEDICARE, SELFPAY ==
[2018-12-29 14:42] LABS: Color, Urine Yellow (Yellow); Glucose, Dipstick Normal (Normal); Ketone-Dipstick Negative (Negative); Leukocyte Esterase-Dipstick 500 /ul (Negative); Nitrite-Dipstick Negative (Negative); Occult Blood-Urine 250 /ul (Negative); Protein-Dipstick 15 mg/dl (Negative); Specific Gravity, Urine 1.005 (1.002-1.030); Urine Bilirubin Dipstick Negative (Negative); Urine Clarity Sl. Cloudy (Clear); Urine Urobilinogen Normal (Normal)
[2018-12-29 14:49] LABS: Absolute Lymphocyte Count 2.38 X10^3/ul (0.83-4.51); Absolute Neutrophil Count 5.7 X10^3/uL (2.0-7.7); Basophil# 0.05 X10^3/uL; Basophil% 0.5 % (0-1); Eosinophil# 0.36 X10^3/uL; Eosinophils% 3.8 % (0-5); Hematocrit 39.6 % (37-47); Hemoglobin 12.8 g/dl (12.0-15.0); Lymphocyte # 2.38 X10^3/ul (4.0); Lymphocyte % 25.3 % (19-41); Mean Corp Hgb Conc 32.3 g/gl (32-36); Mean Corpuscular Hgb 29.3 pg (27.0-32.0); Mean Corpuscular Volume 90.6 fL (81-99); Mean Platelet Vol. 9.8 fl (6.2-12.0); Monocyte# 0.92 X10^3/uL; Monocyte% 9.8 % (0-10); Neutrophil # 5.67 X10^3/uL (2.7-7.7); Neutrophil % 60.5 % (47-70); Platelet Count 200 K/mm3 (150-450); RBC Distribution Width CV 15.6 % (11.6-14.6); RBC Distribution Width SD 51.5 fl (35.1-43.9); Red Blood Count 4.37 M/mm3 (4.2-5.4); White Blood Count 9.4 K/mm3 (4.4-11.0)
[2018-12-29 14:52] LABS: POSITIVE COUNT NO; POSITIVE DIFFERENTIAL NO; POSITIVE MORPHOLOGY NO
[2018-12-29 15:00] LABS: BUN 28 mg/dL (7-18); Creatinine, Serum 1.66 mg/dL (0.55-1.02); EST Glomerular Filtration Rate 33 mL/min (>60); Glucose 101 mg/dL (74-106)
[2018-12-29 15:01] LABS: ALB/GLOB Ratio 0.9 RATIO (0.9-2.4); AST(SGOT) 34 U/L (15-37); Alanine Aminotransfer ALT/SGPT 50 U/L (13-56); Albumin, Serum 3.6 g/dL (3.2-5.0); Alkaline Phosphatase 150 U/L (45-117); Anion Gap 6 (5-15); BUN/Creat Ratio 16.9 RATIO (10-20); Calcium,Total 9.6 mg/dL (8.5-10.1); Chloride 104 mmol/L (98-107); Est Glom Filt Rate - Afr Amer 40 mL/min (>60); Globulin 4.1 g/dL (2.2-4.2); Potassium 4.2 mmol/L (3.5-5.1); Protein, Total 7.7 g/dL (6.4-8.2); Sodium Level 137 mmol/L (136-145)
== END ==
PROVIDERS: Family Provider Internal Medicine; PCP Internal Medicine; Referring Provider Internal Medicine; Visit Provider Internal Medicine
DX: G35 Multiple sclerosis (principal); R53.81 Other malaise; G81.91 Hemiplegia, unspecified affecting right dominant side; R35.0 Frequency of micturition
CPT/HCPCS: 36591; 80053; 81002; 85025; 87077; 87086; 87088; 87186; A4216

== ENCOUNTER 2019-01-05 15:30 | Outpatient (RCR) | payer MEDICARE, SELFPAY | END 2019-01-05 19:00 | disposition home or self-care (01) | LOC: SP 15:30 | PROVIDERS: Family Provider Internal Medicine; PCP Internal Medicine; Visit Provider Family Medicine Geriatric Medicine | DX: R47.1 Dysarthria and anarthria (principal); R13.12 Dysphagia, oropharyngeal phase; M62.81 Muscle weakness (generalized); G35 Multiple sclerosis; R53.81 Other malaise; G81.91 Hemiplegia, unspecified affecting right dominant side | CPT/HCPCS: 92507; 96523 ==

== ENCOUNTER → 2019-02-06 15:33 | Outpatient (CLI) | payer MEDICARE, SELFPAY ==
[2019-02-06 16:50] LABS: Absolute Lymphocyte Count 2.18 X10^3/ul (0.83-4.51); Basophil# 0.04 X10^3/uL; Basophil% 0.5 % (0-1); Eosinophil# 0.33 X10^3/uL; Hematocrit 39.5 % (37-47); Hemoglobin 12.9 g/dl (12.0-15.0); Lymphocyte # 2.18 X10^3/ul (4.0); Lymphocyte % 26.3 % (19-41); Mean Corp Hgb Conc 32.7 g/gl (32-36); Mean Corpuscular Hgb 29.5 pg (27.0-32.0); Mean Corpuscular Volume 90.2 fL (81-99); Mean Platelet Vol. 9.6 fl (6.2-12.0); Monocyte# 0.78 X10^3/uL; Monocyte% 9.4 % (0-10); Neutrophil # 4.95 X10^3/uL (2.7-7.7); Neutrophil % 59.7 % (47-70); Platelet Count 209 K/mm3 (150-450); RBC Distribution Width CV 15.6 % (11.6-14.6); RBC Distribution Width SD 51.5 fl (35.1-43.9); Red Blood Count 4.38 M/mm3 (4.2-5.4); White Blood Count 8.3 K/mm3 (4.4-11.0)
[2019-02-06 16:51] LABS: POSITIVE COUNT NO; POSITIVE DIFFERENTIAL NO; POSITIVE MORPHOLOGY NO
[2019-02-06 16:59] LABS: ALB/GLOB Ratio 0.8 RATIO (0.9-2.4); AST(SGOT) 30 U/L (15-37); Alanine Aminotransfer ALT/SGPT 47 U/L (13-56); Albumin, Serum 3.6 g/dL (3.2-5.0); Alkaline Phosphatase 123 U/L (45-117); Anion Gap 7 (5-15); BUN 25 mg/dL (7-18); BUN/Creat Ratio 13.4 RATIO (10-20); Chloride 100 mmol/L (98-107); Creatinine, Serum 1.87 mg/dL (0.55-1.02); EST Glomerular Filtration Rate 29 mL/min (>60); Est Glom Filt Rate - Afr Amer 35 mL/min (>60); GGTP 23 U/L (5-55); Globulin 4.4 g/dL (2.2-4.2); Glucose 98 mg/dL (74-106); Potassium 4.2 mmol/L (3.5-5.1); Sodium Level 136 mmol/L (136-145)
[2019-02-09 16:07] LABS: Alkaline Phosphatase, Serum 110 IU/L (39-117); Bone Fraction 20 % (14-68); Liver Fraction 55 % (18-85)
[2019-02-10 11:42] LABS: Intestinal Fraction 25 % (0-18)
== END ==
PROVIDERS: Family Provider Internal Medicine; PCP Internal Medicine; Referring Provider Internal Medicine; Visit Provider Internal Medicine
DX: G35 Multiple sclerosis (principal); R53.81 Other malaise; G81.91 Hemiplegia, unspecified affecting right dominant side; R89.9 Unspecified abnormal finding in specimens from other organs, systems and tissues
CPT/HCPCS: 36591; 80053; 82977; 84075; 84080; 85025; A4216

== ENCOUNTER 2019-02-15 09:13 | Observation (INO) | payer MEDICARE, SELFPAY ==
[2019-02-15] VITALS (10 sets, daily range): BP systolic 136–161; BP diastolic 88–103; PULSE 86–95; RESP 13–22; TEMP 36.3–36.8; O2SAT 60–100; BMI 25.6; BMI 25.7; BMI 24.3
--- NOTE | 2019-02-15 09:37 | CT_ITS ---
STUDY: CT ABDOMEN AND PELVIS WITHOUT CONTRAST REASON FOR EXAM: Female, 64 years old. Left lower quadrant pain since yesterday, nausea and vomiting. History of multiple sclerosis, chronic kidney disease, indwelling catheter RADIATION DOSAGE (If Supplied By Facility): CTDIvol = ( 21.23 ) mGy, DLP = ( 1351.19 ) mGycm TECHNIQUE: Transaxial images were obtained from the dome of the diaphragm to the symphysis pubis without oral contrast, and without intravenous contrast. Sagittal and coronal images were reconstructed. Individualized dose optimization techniques were used for this CT. COMPARISON: CT abdomen and pelvis 08/11/2017 FINDINGS: Body wall soft tissues: Suprapubic catheter, uncomplicated. Osseous structures: Osteopenia, scoliosis, mild multilevel lumbar spondylosis, old superior endplate compression fracture of L2 and T12 with mild kyphosis across the thoracolumbar junction. No significant spinal stenosis is apparent. No lytic or blastic lesions. Inferior chest: Prominently elevated right hemidiaphragm. Chilaiditi's sign. Interposition of large bowel between the dome of the liver in the right hemidiaphragm. Associated with moderately dense subsegmental atelectasis of the right lower lobe medial basilar segment which is likely chronic atelectasis due to the elevated hemidiaphragm and hypoventilation of the lung base. Nondilated aortic arch, mild arch atherosclerosis. Prominent coronary calcifications proximal LAD. Normal cardiac size without pericardial effusion. Circumferential thickening of wall the distal 3rd of the esophagus which may be associated with reflux esophagitis. Hepatobiliary: Normal liver, gallbladder and biliary tree. Pancreas: Mild pancreatic atrophy without ductal dilatation or suspicious focal lesion. Spleen: Normal. Adrenal glands: Normal. Urogenital: Severe left renal atrophy. Stable simple appearing cyst of the left kidney cortex measuring 1.1 cm unchanged compared to imaging of 2017. Mild right renal atrophy, lobulated margins, nonobstructing calyceal calculi posterior mid polar calyx. Extrarenal pelvis without hydronephrosis. Nondilated ureter. No ureteral calculus. Urinary bladder is decompressed by the suprapubic catheter. Grossly normal. Unremarkable uterus. Left ovarian cyst 1.2 cm. On prior imaging of 2017 there was a left ovarian cyst measuring 1.6 cm. The right ovary is not well seen. Pelvic floor and sidewalls and retroperitoneum: No mass or adenopathy. Vasculature: Mild atherosclerosis. Stomach: The stomach is prominently distended with fluid, food and gas. Small bowel and mesentery: The 2nd portion of the duodenum is tortuous, and dilated, up to 4.8 cm. No change from prior imaging. The 3rd portion of the duodenum is quite narrow, compressed at the level of the superior mesenteric artery, consistent with the presence of SMA syndrome contributing to outlet obstruction and likely explaining the chronic dilatation of the 2nd portion of duodenum and stomach. The left of midline the 3rd portion of duodenum is normal. Unremarkable jejunum and ileum. Large bowel: Normal appendix. Prominent distributed stool burden of large bowel suspicious for the presence of constipation. There is a band of wall thickening at the rectosigmoid junction, measuring up to 1.4 cm in thickness, quite similar to the region of wall thickening seen on prior imaging of 2017 with no apparent progression. Malignancy considered unlikely. Free fluid or free air: None. 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 Chronic. Similar features seen on prior imaging. Suspected constipation. No other definitive acute abdominopelvic process is evident. A short segment of wall thickening of the rectosigmoid junction appears to be stable compared to prior imaging of 2017. Malignancy is considered unlikely. Close clinical correlation is recommended. Colonoscopy is recommended. Prominently elevated right hemidiaphragm, chronic, associated with dense medial lung base atelectasis. Coronary atherosclerosis. Electronically Signed: Bill English MD at 13:33 EDT Tel , Service support ,
--- NOTE | 2019-02-15 09:40 | ED.VIS.GEN ---
History of Present Illness Chief Complaint: Abd Pain Informant: Patient, Significant Other Onset: Yesterday Context: Gradual Onset Timing: Continuous Quality: ache Location: mostly LLQ, now RLQ Current Severity: Moderate Maximum Severity: Severe Worsened by: nothing Relieved by: nothing Associated Symptoms: n/v somewhat bilious; nonbloody. no BM 72 hrs. Narrative: Has a history of MS and is basically bedridden. 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 No abdominal surgeries in the past. Had something like this once that resembled an ileus on CT, resulting in hospital admission with NG tube. She was eating and drinking well until this started last night. Abdomen has been distended, significant other states she mostly had pain in the left lower quadrant last night. No changes in urine output per suprapubic catheter. - Past Medical History (1) CKD (chronic kidney disease) stage 4, GFR 15-29 ml/min Status: Chronic (2) Hydronephrosis, bilateral Status: Chronic (3) Hyperlipidemia Status: Chronic (4) Migraine headache Status: Chronic (5) Multiple sclerosis Status: Chronic Past Medical History - Allergies and Home Meds Allergies/Adverse Reactions: Allergies ciprofloxacin [From Cipro] Adverse Reaction (Verified 02/15/19 09:21) hypotension interacts w/ zanaflex and baclofen doxycycline Adverse Reaction (Verified 02/15/19 09:21) hypotension interacts w/ zanaflex and baclofen levofloxacin [From Levaquin] Adverse Reaction (Verified 02/15/19 09:21) hypotension interacts w/ zanaflex and baclofen morphine Adverse Reaction (Verified 02/15/19 09:21) hallucinations piperacillin [From Zosyn] Adverse Reaction (Verified 02/15/19 09:21) hypotension interacts w/ zanaflex and baclofen sulfamethoxazole [From Bactrim] Adverse Reaction (Verified 02/15/19 09:21) hypotension interacts w/ zanaflex and baclofen tazobactam [From Zosyn] Adverse Reaction (Verified 02/15/19 09:21) hypotension interacts w/ zanaflex and baclofen trimethoprim [From Bactrim] Adverse Reaction (Verified 02/15/19 09:21) hypotension interacts w/ zanaflex and baclofen vancomycin Adverse Reaction (Verified 02/15/19 09:21) developed toxic levels Primary Care Physician: Alexandria Carranza MD [Primary Care Provider] - Surgical History: adenoidectomy, tonsillectomy, - - Right shoulder surgery, ORIF right wrist. Lives: Spouse/ Significant Other Smoking Status: Never smoker - Family History Maternal Family History: Reports: No pertinent history Paternal Family History: Reports: No pertinent history Review of Systems General: Denies: Chills, Fever, Sweats Eyes: Denies: Visual changes - bilaterally, Diplopia ENT: Denies: Rhinorrhea, Sore throat Cardiovascular: Denies: Chest pain, Palpitations Respiratory: Denies: Dyspnea, Cough, Dyspnea on exertion Gastrointestinal: Reports: Abdominal pain, Nausea, Vomiting, Constipation - chronic. Denies: Diarrhea, Melena, Hematochezia Genitourinary: Denies: Dysuria, Hematuria, Frequency Musculoskeletal: Denies: Back pain, Extremity Pain Skin: Reports: - - purple cold feet chronically. Denies: Rash, Wounds Neurological: Reports: Weakness - right side chronically worse than left. Denies: Headache Physical Exam Vital Signs/Narrative: Vital Signs Temp Pulse Resp BP Pulse Ox 02/15/19 09:15 98.3 F 95 18 144/89 H 91 General: Well nourished, Well developed, No Acute Distress Head: Normocephalic, Atraumatic Eyes: Perrl, EOMI ENT: Moist mucous membranes, No rhinorrhea Neck: Supple, Nontender Cardiovascular: Regular rate, Regular rhythm, No murmurs Respiratory: No distress, CTA bilaterally, Chest nontender Abdomen: Soft, Normal bowel sounds, Tender - diffusely, mostly RLQ, - - distended, soft. suprapubic site benign.. Negative for: Guarding, Rebound tenderness Back: Nontender, Normal Inspection Extremities: Nontender, No edema Skin: No rash, No Trauma, - - cyanotic cold toes w/o gangrene. 1+/4 bilat DP pulses. 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 Chronic. Similar features seen on prior imaging. Suspected constipation. No other definitive acute abdominopelvic process is evident. A short segment of wall thickening of the rectosigmoid junction appears to be stable compared to prior imaging of 2017. Malignancy is considered unlikely. Close clinical correlation is recommended. Colonoscopy is recommended. Prominently elevated right hemidiaphragm, chronic, associated with dense medial lung base atelectasis. Coronary atherosclerosis. Electronically Signed: Bill English MD at 13:33 EDT Tel , Service support , 02/15/19 09:37 Abdomen/Pelvis without Cont [CT] Stat Laboratory Results 02/15/19 02/15/19 02/15/19 09:50 09:50 12:55 WBC 14.8 H RBC 4.49 Hgb 13.4 Hct 39.7 MCV 88.4 MCH 29.8 MCHC 33.8 RDW 15.4 H RDW Differential 48.9 H Plt Count 213 MPV 9.5 Immature Gran % (Auto) 0.200 Neut % (Auto) 72.5 H Lymph % (Auto) 15.7 L [place] % (Auto) 9.3 Eos % (Auto) 2.0 Baso % (Auto) 0.3 Absolute Neuts (auto) 10.7 H Absolute Lymphs (auto) 2.31 Total Counted Not Reportable Sodium 135 L Potassium 3.5 Chloride 94 L Carbon Dioxide 33.0 H Anion Gap 8 BUN 37 H Creatinine 1.93 H Estim Creat Clear Calc 31.84 Est GFR (MDRD) Af Amer 34 L Est GFR (MDRD) Non-Af 28 L BUN/Creatinine Ratio 19.2 Glucose 90 Calcium 9.5 Total Bilirubin 0.60 AST 38 H ALT 49 Alkaline Phosphatase 121 H Total Protein 8.3 H Albumin 3.8 Globulin 4.5 H Albumin/Globulin Ratio 0.8 L Lipase 795 H Urine Color Straw Urine Clarity Cloudy Urine pH 8.0 Ur Specific [place] 1.010 Urine Protein 30 H Urine Glucose (UA) Normal Urine Ketones Negative Urine Occult Blood 250 H Urine Nitrite Negative Urine Bilirubin Negative Urine Urobilinogen Normal Ur Leukocyte Esterase 500 H Urine RBC 10-25 SEEN Urine WBC >100 SEEN Ur Squamous Epith Cells 0 SEEN Urine Bacteria 3+ Urine Mucus 0 SEEN - Medical Decision Making Patient was still very nauseated after Zofran, IV fluids, and then a dose of Phenergan. Patient has a leukocytosis and an elevated lipase, nonspecifically. She does not drink alcohol. Lactic acid is within normal limits 1.6. Her CT was performed with oral contrast and we withheld IV contrast because of her decreasing renal function. CT shows chronic abnormalities but nothing acute except for significant amount of stool retention/constipation. There is evidence of chronic findings of SMA syndrome, however the SMA does not appear to be causing an acute bowel obstruction. and patient were amenable to trying a soapsuds enema and seeing how she felt afterwards. It did not produce a significant bowel movement, and when they tried to transfer her to the bedside commode she did very poorly and was not able. states that at home, she is usually able, and transferring in and out of their minivan is much more difficult. He is not going to be able to care for her at, home and does not want her placed in a facility. I think it is reasonable that we admit her to observation for hydration and further treatment. ED Disposition - Plan for ED Patient: Disposition: Acute Care Hospital [facility] Diagnosis: Dehydration, Vomiting, Constipation, Declining functional status, Multiple sclerosis Referrals: Alexandria Carranza MD [Primary Care Provider] -
[2019-02-15 09:58] LABS: Absolute Lymphocyte Count 2.31 X10^3/ul (0.83-4.51); Absolute Neutrophil Count 10.7 X10^3/uL (2.0-7.7); Basophil# 0.04 X10^3/uL; Basophil% 0.3 % (0-1); Eosinophil# 0.29 X10^3/uL; Hematocrit 39.7 % (37-47); Hemoglobin 13.4 g/dl (12.0-15.0); Lymphocyte # 2.31 X10^3/ul (4.0); Lymphocyte % 15.7 % (19-41); Mean Corp Hgb Conc 33.8 g/gl (32-36); Mean Corpuscular Hgb 29.8 pg (27.0-32.0); Mean Corpuscular Volume 88.4 fL (81-99); Mean Platelet Vol. 9.5 fl (6.2-12.0); Monocyte# 1.38 X10^3/uL; Monocyte% 9.3 % (0-10); Neutrophil # 10.71 X10^3/uL (2.7-7.7); Neutrophil % 72.5 % (47-70); POSITIVE COUNT NO; POSITIVE DIFFERENTIAL NO; POSITIVE MORPHOLOGY NO; Platelet Count 213 K/mm3 (150-450); RBC Distribution Width CV 15.4 % (11.6-14.6); RBC Distribution Width SD 48.9 fl (35.1-43.9); Red Blood Count 4.49 M/mm3 (4.2-5.4); White Blood Count 14.8 K/mm3 (4.4-11.0)
[2019-02-15 10:25] LABS: ALB/GLOB Ratio 0.8 RATIO (0.9-2.4); AST(SGOT) 38 U/L (15-37); Alanine Aminotransfer ALT/SGPT 49 U/L (13-56); Albumin, Serum 3.8 g/dL (3.2-5.0); Alkaline Phosphatase 121 U/L (45-117); Anion Gap 8 (5-15); BUN 37 mg/dL (7-18); BUN/Creat Ratio 19.2 RATIO (10-20); Calcium,Total 9.5 mg/dL (8.5-10.1); Chloride 94 mmol/L (98-107); Creatinine, Serum 1.93 mg/dL (0.55-1.02); EST Glomerular Filtration Rate 28 mL/min (>60); Est Glom Filt Rate - Afr Amer 34 mL/min (>60); Estimated Creatinine Clearance 31.84 ml/min; Globulin 4.5 g/dL (2.2-4.2); Glucose 90 mg/dL (74-106); Lipase 795 U/L (73-393); Potassium 3.5 mmol/L (3.5-5.1); Protein, Total 8.3 g/dL (6.4-8.2); Sodium Level 135 mmol/L (136-145)
[2019-02-15] MEDS: 0.9% Normal Saline 1,000 ML 125 ML IV (10:29)
[2019-02-15] MEDS: Ondansetron 4 MG/2 ML Vial IV ×3 (10:29→20:34)
[2019-02-15] MEDS: fentaNYL 100 MCG/2 ML Ampul 50 MCG IV (10:29)
--- NOTE | 2019-02-15 10:41 | ED.RN ---
Soon after admin of fentanyl pt O2 sat began to drop. Good wave form on monitor. Probe moved to different finger with same results. Pt lips were cyanotic. O2 2L appiled via nc, physician notified. Pt rebounds to 96% O2 sat on 2L. Physician notified.
[2019-02-15] MEDS: proMETHazine 25 MG/ML Syringe 6.25 MG IV (11:39)
[2019-02-15 12:58] LABS: Mucous, Urine 0 SEEN /hpf (<or=2+); Squamous Epithelial Cells - UA 0 SEEN /hpf (5-10)
[2019-02-15 13:01] LABS: Color, Urine Straw (Yellow); Glucose, Dipstick Normal (Normal); Ketone-Dipstick Negative (Negative); Leukocyte Esterase-Dipstick 500 /ul (Negative); Nitrite-Dipstick Negative (Negative); Occult Blood-Urine 250 /ul (Negative); Protein-Dipstick 30 mg/dl (Negative); Urine Bilirubin Dipstick Negative (Negative); Urine Clarity Cloudy (Clear); Urine Urobilinogen Normal (Normal)
[2019-02-15 13:08] LABS: Red Blood Cells-Urine 10-25 SEEN /hpf (0-5)
[2019-02-15 13:09] LABS: Bacteria 3+ /hpf (None Seen); White Blood Cells >100 SEEN /hpf (0-5)
[2019-02-15] MEDS: 0.9% Normal Saline 1,000 ML 999 ML IV (15:49)
--- NOTE | 2019-02-15 16:51 | NURSING ---
MED SURG OBS DEHYDRATION, VOMITING, MS, FUNCTIONAL DECLINE ASHELFAH
--- NOTE | 2019-02-15 17:12 | HP.PCM_ITS ---
<Kailyn Red - Last Filed: 02/15/19 17:34> Problem List (1) Dehydration Status: Acute (2) Constipation Status: Acute (3) Hydronephrosis Status: Chronic Comment: Bilateral. (4) Complicated urinary tract infection Status: Resolved Comment: Chronic suprapubic catheter. (5) Vitamin D deficiency Status: Chronic (6) Muscle spasm Status: Chronic (7) OAB (overactive bladder) Status: Chronic (8) Allergic rhinitis Status: Chronic (9) Insomnia Status: Chronic (10) Aspiration pneumonia Status: Resolved (11) Hyperlipidemia Status: Chronic (12) CKD (chronic kidney disease) stage 4, GFR 15-29 ml/min Status: Chronic (13) Transient ischemic attack Status: Chronic (14) Multiple sclerosis Status: Chronic (15) Right hemiparesis Status: Chronic (16) Migraine headache Status: Chronic History of Present Illness Date of Admission: 02/15/19 Chief Complaint: Constipation, N/V, abdominal distention. The patient is a 64 year old F who presents emergency room due to constipation, nausea, vomiting and abdominal distention. at bedside is patient's primary ct technologist as she is debilitated secondary to MS. states patient has not had a bowel movement in approximately 3 days. He reports they attempted enema at home which was not successful. She complains of generalized abdominal discomfort as well. Has been reports patient has had poor oral intake over the past few days and feels she may be dehydrated as well. He reports patient does have frequent constipation however not to the extent of her current symptoms. She has a past medical history of multiple sclerosis with chronic right hemiparesis/debility, chronic kidney disease stage IV, recurrent urosepsis with suprapubic catheter, history of TIA, hyperlipidemia. Past Medical History Past Medical History (Chronic Problems): Chronic Problems Hydronephrosis (Chronic) Bilateral. Vitamin D deficiency (Chronic) Muscle spasm (Chronic) OAB (overactive bladder) (Chronic) Allergic rhinitis (Chronic) Insomnia (Chronic) Hyperlipidemia (Chronic) CKD (chronic kidney disease) stage 4, GFR 15-29 ml/min (Chronic) Transient ischemic attack (Chronic) Multiple sclerosis (Chronic) Right hemiparesis (Chronic) Migraine headache (Chronic) Allergies ciprofloxacin [From Cipro] Adverse Reaction (Verified 02/15/19 09:21) hypotension interacts w/ zanaflex and baclofen doxycycline Adverse Reaction (Verified 02/15/19 09:21) hypotension interacts w/ zanaflex and baclofen levofloxacin [From Levaquin] Adverse Reaction (Verified 02/15/19 09:21) hypotension interacts w/ zanaflex and baclofen morphine Adverse Reaction (Verified 02/15/19 09:21) hallucinations piperacillin [From Zosyn] Adverse Reaction (Verified 02/15/19 09:21) hypotension interacts w/ zanaflex and baclofen sulfamethoxazole [From Bactrim] Adverse Reaction (Verified 02/15/19 09:21) hypotension interacts w/ zanaflex and baclofen tazobactam [From Zosyn] Adverse Reaction (Verified 02/15/19 09:21) hypotension interacts w/ zanaflex and baclofen trimethoprim [From Bactrim] Adverse Reaction (Verified 02/15/19 09:21) hypotension interacts w/ zanaflex and baclofen vancomycin Adverse Reaction (Verified 02/15/19 09:21) developed toxic levels Home Medications: Ambulatory Orders Medication Instructions Recorded Aspirin E.C. [Ecotrin] 81 mg PO QHS 12/04/16 Atorvastatin Calcium [Lipitor] 40 mg PO QHS 09/05/17 Iron Polysaccharide Complex 150 mg PO DAILYCM 09/05/17 [Ferrex 150] Magnesium Oxide [Mag-Ox 400] 400 mg PO QHS 09/05/17 Amitriptyline HCl [Elavil] 75 mg PO QHS 09/19/17 Lactulose [Chronulac] 40 gm PO QODAY@2200 09/19/17 Baclofen 20 mg PO QHS 07/01/18 Baclofen [Lioresal] 10 mg PO BID 07/01/18 Bisacodyl [Dulcolax] 10 mg RECTAL QODAY 07/01/18 Calcitriol [Rocaltrol] 0.25 mcg PO QHS 07/01/18 Krill Oil 500 mg PO DAILY 07/01/18 L.acidoph,Paracasei, B.lactis 2 each PO QHS 07/01/18 [Probiotic] ALPRAZolam [Xanax] 0.5 mg PO QHS 02/15/19 Acetaminophen [Tylenol Extra 1,000 mg PO PRN PRN 02/15/19 Strength] Levocetirizine Dihydrochloride 5 mg PO DAILY 02/15/19 [Xyzal] Melatonin 5 mg PO QHS 02/15/19 Vitamin B Complex 1 tab PO DAILY 02/15/19 Surgical History: adenoidectomy, tonsillectomy, - - Right shoulder surgery, ORIF right wrist, suprapubic catheter placement. Psychiatric History: No pertinent psych hx PATTERNMAKER HAND History: No pertinent PATTERNMAKER HAND history Lives: Spouse/ Significant Other Smoking Status: Never smoker Alcohol: None Drugs: None - *Family History Maternal History Items: - - Denies known maternal medical history including cardiac history. Paternal History Items: - - Denies known paternal medical history including cardiac history. Review of Systems Constitutional: Denies: Chills, Fever, Weight Change HEENT: Denies: Head Aches, Sinus Congestion, Sinus Drainage Cardiovascular: Denies: Chest Pain, Palpitations Respiratory: Denies: Cough, Shortness of breath at rest, Sputum production Gastrointestinal: Reports: Constipation, Nausea, Vomiting, - - Abdominal distention, abdominal discomfort. Genitourinary: Reports: - - Suprapubic catheter in place. Denies: Dysuria, Hematuria Musculoskeletal: Denies: Joint Pain, Joint Tenderness Skin: Denies: Rash, Wounds Neurological: Reports: - - Chronic right hemiparesis.. Denies: Focal weakness, Numbness, Tingling Psychiatric: Denies: Anxiety, Depression, Homicidal Ideations, Suicidal Ideations Hematologic/ Lymphatic: Denies: Easy Bruising, Easy Bleeding VTE Information - Inpt Only VTE Present on Admission: No VTE Mechan Device Prophylaxis: None VTE Pharm Prophylaxis ordered?: Yes Patient Problems: Active and Suspected Problems Dehydration (Acute) Constipation (Acute) Vomiting (Acute) Declining functional status (Acute) - Physical Exam General: Alert, Oriented x3, Cooperative HEENT: Atraumatic, PERRLA, EOMI, Normocephalic Oral: Dry Mucosa Neck: Supple, No JVD, Negative Carotid Bruits Lungs: Clear to auscultation, Diminished Cardiovascular: Regular rate, Regular Rhythm, Normal S1, Normal S2, No murmurs Abdomen: Bowel Sounds Present, Distended, Tender Extremities: No clubbing, No cyanosis, No edema, Capillary Refill Less than 3 Seconds Skin: No rashes, No breakdown Musculoskeletal: No Tenderness to Palpation of Joints or Extremities Neurological: Cranial nerves II-XII grossly intact, - - Chronic right hemiparesis Psych/Mental Status: Normal Affect, Appropriate Vital Signs Temp Pulse Resp BP Pulse Ox 98.1 F 88 19 H 156/93 H 98 02/15/19 10:37 02/15/19 17:02 02/15/19 17:02 02/15/19 17:02 02/15/19 17:02 Oxygen Flow Rate (L/min) 2 Oxygen Delivery Method Nasal Cannula Weight: 178 lb 12.718 oz Body Mass Index (BMI) 25.6 Finger Stick Blood Glucose 67 Laboratory Tests Past 24 Hrs 02/15/19 02/15/19 02/15/19 09:50 09:50 12:55 WBC 14.8 H RBC 4.49 Hgb 13.4 Hct 39.7 MCV 88.4 MCH 29.8 MCHC 33.8 RDW 15.4 H RDW Differential 48.9 H Plt Count 213 MPV 9.5 Immature Gran % (Auto) 0.200 Neut % (Auto) 72.5 H Lymph % (Auto) 15.7 L [place] % (Auto) 9.3 Eos % (Auto) 2.0 Baso % (Auto) 0.3 Absolute Neuts (auto) 10.7 H Absolute Lymphs (auto) 2.31 Total Counted Not Reportable Sodium 135 L Potassium 3.5 Chloride 94 L Carbon Dioxide 33.0 H Anion Gap 8 BUN 37 H Creatinine 1.93 H Estim Creat Clear Calc 31.84 Est GFR (MDRD) Af Amer 34 L Est GFR (MDRD) Non-Af 28 L BUN/Creatinine Ratio 19.2 Glucose 90 Calcium 9.5 Total Bilirubin 0.60 AST 38 H ALT 49 Alkaline Phosphatase 121 H Total Protein 8.3 H Albumin 3.8 Globulin 4.5 H Albumin/Globulin Ratio 0.8 L Lipase 795 H Urine Color Straw Urine Clarity Cloudy Urine pH 8.0 Ur Specific [place] 1.010 Urine Protein 30 H Urine Glucose (UA) Normal Urine Ketones Negative Urine Occult Blood 250 H Urine Nitrite Negative Urine Bilirubin Negative Urine Urobilinogen Normal Ur Leukocyte Esterase 500 H Urine RBC 10-25 SEEN Urine WBC >100 SEEN Ur Squamous Epith Cells 0 SEEN Urine Bacteria 3+ Urine Mucus 0 SEEN Assessment/Plan All Active Problems Dehydration (Acute) Constipation (Acute) Vomiting (Acute) Declining functional status (Acute) Complicated urinary tract infection (Resolved) 1. 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 Similar features seen on prior imaging. Suspected constipation. IV fluids. Mag citrate. N.p.o. 2. Mildly elevated lipase-no evidence of pancreatitis on imaging. N.p.o. IV fluids. Trend lipase. 3. MS/debility/chronic right hemiparesis- PT/OT/ST. history of aspiration pneumonia. cares for patient at home. Declines need for further help. Continue home medication regimen including baclofen, Zanaflex. 4. Recurrent complicated UTIs/chronic suprapubic catheter- urine culture sent in ER. Afebrile. No antibiotics at this time. Follow culture. 5. Chronic kidney disease stage IV-mildly dehydrated on admission, no acute kidney injury. Gentle IV fluids. Trend BMP. 6. History of TIA-continue aspirin, statin. 7. Hyperlipidemia-continue statin. DVT prophylaxis-heparin subcu This patient was seen by MARTHA Shannon under the supervision of Dr. Nuñez. <Too Nuñez E - Last Filed: 02/15/19 18:38> History of Present Illness The patient is a 64 year old F [] Past Medical History Allergies ciprofloxacin [From Cipro] Adverse Reaction (Verified 02/15/19 09:21) hypotension interacts w/ zanaflex and baclofen doxycycline Adverse Reaction (Verified 02/15/19 09:21) hypotension interacts w/ zanaflex and baclofen levofloxacin [From Levaquin] Adverse Reaction (Verified 02/15/19 09:21) hypotension interacts w/ zanaflex and baclofen morphine Adverse Reaction (Verified 02/15/19 09:21) hallucinations piperacillin [From Zosyn] Adverse Reaction (Verified 02/15/19 09:21) hypotension interacts w/ zanaflex and baclofen sulfamethoxazole [From Bactrim] Adverse Reaction (Verified 02/15/19 09:21) hypotension interacts w/ zanaflex and baclofen tazobactam [From Zosyn] Adverse Reaction (Verified 02/15/19 09:21) hypotension interacts w/ zanaflex and baclofen trimethoprim [From Bactrim] Adverse Reaction (Verified 02/15/19 09:21) hypotension interacts w/ zanaflex and baclofen vancomycin Adverse Reaction (Verified 02/15/19 09:21) developed toxic levels - Physical Exam Vital Signs Temp Pulse Resp BP Pulse Ox 98.3 F 86 18 161/97 H 97 02/15/19 17:57 02/15/19 17:57 02/15/19 17:57 02/15/19 17:57 02/15/19 17:57 Oxygen Flow Rate (L/min) 2 Oxygen Delivery Method Nasal Cannula Weight: 169 lb 8.568 oz Body Mass Index (BMI) 24.3 Finger Stick Blood Glucose 67 Laboratory Tests Past 24 Hrs 02/15/19 02/15/19 02/15/19 09:50 09:50 12:55 WBC 14.8 H RBC 4.49 Hgb 13.4 Hct 39.7 MCV 88.4 MCH 29.8 MCHC 33.8 RDW 15.4 H RDW Differential 48.9 H Plt Count 213 MPV 9.5 Immature Gran % (Auto) 0.200 Neut % (Auto) 72.5 H Lymph % (Auto) 15.7 L [place] % (Auto) 9.3 Eos % (Auto) 2.0 Baso % (Auto) 0.3 Absolute Neuts (auto) 10.7 H Absolute Lymphs (auto) 2.31 Total Counted Not Reportable Sodium 135 L Potassium 3.5 Chloride 94 L Carbon Dioxide 33.0 H Anion Gap 8 BUN 37 H Creatinine 1.93 H Estim Creat Clear Calc 31.84 Est GFR (MDRD) Af Amer 34 L Est GFR (MDRD) Non-Af 28 L BUN/Creatinine Ratio 19.2 Glucose 90 Calcium 9.5 Total Bilirubin 0.60 AST 38 H ALT 49 Alkaline Phosphatase 121 H Total Protein 8.3 H Albumin 3.8 Globulin 4.5 H Albumin/Globulin Ratio 0.8 L Lipase 795 H Urine Color Straw Urine Clarity Cloudy Urine pH 8.0 Ur Specific [place] 1.010 Urine Protein 30 H Urine Glucose (UA) Normal Urine Ketones Negative Urine Occult Blood 250 H Urine Nitrite Negative Urine Bilirubin Negative Urine Urobilinogen Normal Ur Leukocyte Esterase 500 H Urine RBC 10-25 SEEN Urine WBC >100 SEEN Ur Squamous Epith Cells 0 SEEN Urine Bacteria 3+ Urine Mucus 0 SEEN Assessment/Plan Hospitalist note: I am seeing this patient in conjunction with Kailyn Red. I independently seen and examined the patient. History and physical, laboratory data and imaging studies reviewed and I concur with the above treatment admission and plan. Patient presented to the medicine because of constipation, nausea and vomiting and abdominal distention. The patient has history of multiple sclerosis and her was at the bedside and he provided most if the information. According to the , patient hermilo has bowel movement once every other day but for the last 3 days, she has been constipated, associated with nausea and vomiting as well as abdominal distention although she has been taking her regular laxatives including lactulose and Dulcolax abilities. The patient complained of generalized abdominal pain, vague pain, could not rate this pain on a scale from 0-10, associated with nausea and vomiting as well as constipation and without aggravating or relieving factors. In the emergency department, her blood pressure was slightly elevated, other vitals were stable. Her routine blood work was remarkable for leukocytosis, BUN of 37 and creatinine of 1.39 which are chronic, lipase of 795. Urine culture revealed cloudy urine, 500 leukocyte esterase, there was more than 100 WBCs and 3+ bacteria seen. 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 She is being admitted for constipation/abdominal pain, nausea and vomiting as well as slightly elevated lipase. - Physical Exam General: Alert, Oriented x3, Cooperative, No apparent distress. HEENT: Atraumatic, PERRLA, EOMI. Neck: Supple, No JVD, Negative Carotid Bruits, Trachea Midline, Thyroid Normal. Lungs: Decreased breath sounds bilateral, otherwise clear no rhonchi, No wheeze, No rales. Cardiovascular: Regular rate, Regular Rhythm, Normal S1, Normal S2, PMI Normal. Abdomen: Hypoactive bowel sounds, distended, firm, minimal tenderness, no upper extremity. Extremities: No clubbing, No cyanosis, No edema Skin: No rashes, No breakdown Neurological: Cranial nerves are intact, right hemiparesis. Vital Signs are stable. 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 Patient has multiple sclerosis, but the rhythm most of her time and that is why she is constipated. Plan: Admit to [facility] floor, keep on clear liquids, IV antiemetics, magnesium citrate x1, lactulose twice daily, repeat KUB tomorrow morning, IV fluids, repeat CBC and CMP tomorrow morning, repeat lipase tomorrow morning, PT OT evaluation and treatment. #2 elevated lipase: Lipase is 795. CT scan abdomen revealed mild pancreatic atrophy, no ductal dilatation. This mildly elevated lipase could be due to compression of the pancreas by the distended stomach and intestine. Plan for IV fluids, repeat CMP and lipase tomorrow morning. #3 leukocytosis: Probably reactive, no evidence of infection. She is afebrile. Urinalysis reviewed. Patient has chronic suprapubic catheter and MRSA colonization. At this time, I doubt acute or active UTI, no indication for antibiotics. Plan for urine culture. #4 other chronic medical problems: Stable, continue current medications as above. This note was generated with [employer] dictation software. It may contain incorrect words, spelling, and punctuation that were not noted in checking the note before signing. Code Visit Inpatient E&M: 79707 Init Hosp L2
--- NOTE | 2019-02-15 17:26 | CASEMGMT ---
RN CM Assessment Introduced role of RN CM to patient and at bedside.? Patient is alert, speaks minimally with Hospitalist. Information for RN CM Assessment provided by patient Nakul. ?Care providers, pharmacy, and demographics verified. Presentation: C/o Abd Pain and distention. H/o MS and Suprapubic Catheter d/t Neurogenic Bladder. 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 PCP: Alexandria Carranza Specialists: ENT- Dr Wallis, Neuro- At [facility] in [place] specializes in MS, Nephro- Dr Montiel Preferred Pharmacy: [facility] Insurance: [facility] Rx Benefit:?Yes LNOK: Nakul Sharp LW/HPOA: Yes HPOA- Nakul Sharp Living Arrangements:? Lives with in a SS home, Ramp in front and through garage ADL?s: WC Bound, Patient normally able to transfer self with assistance. Assistance by with all ADL's Transportation: DME: WC, Commode, Shower Chair, All Catheter equipment from [employer] HHC: Past. States has been to [facility] in past. SNF: TCU x2 in past Goal: Home, does not think will need HHC or any needs, does state that patient may need a Azar Lift as it is becoming a little more difficult on 's Back. DC PLAN: Home with possible Azar Lift. Jasmeet Butt RNCM
[2019-02-15] MEDS: 0.9% Normal Saline 1,000 ML 150 ML IV ×2 (18:54→23:54)
[2019-02-15] MEDS: 0.9% NaCl Peripheral Flush Adult/Peds IV ×2 (18:55→20:39)
[2019-02-15] MEDS: Acetaminophen 325 MG Tablet 650 MG PO (20:33)
[2019-02-15] MEDS: Magnesium Citrate 300 ML PO (20:34)
[2019-02-15] MEDS: Amitriptyline 25 MG Tablet 75 MG PO (21:11)
[2019-02-15] MEDS: Aspirin E.C. 81 MG Tablet PO (21:11)
[2019-02-15] MEDS: Atorvastatin Calcium 40 MG Tablet PO (21:11)
[2019-02-15] MEDS: ALPRAZolam 0.5 MG Tablet PO (21:12)
[2019-02-15] MEDS: Magnesium Oxide 400 MG Tablet PO (21:12)
[2019-02-15] MEDS: Calcitriol 0.25 MCG Capsule PO (21:12)
[2019-02-15] MEDS: Baclofen 10 MG Tablet 20 MG PO (21:13)
[2019-02-15] MEDS: MELATONIN 10 MG TABLET 5 MG PO (21:13)
[2019-02-15] MEDS: Lactulose 20 GM/30 ML UDC PO (21:14)
[2019-02-15] MEDS: Heparin Injection (Vial) 5,000 UNIT/ML VIAL 5000 UNIT SC (21:14)
[2019-02-16] VITALS (12 sets, daily range): BP systolic 115–152; BP diastolic 63–93; PULSE 73–94; RESP 16–18; TEMP 36.3–36.9; O2SAT 88–98
[2019-02-16] MEDS: Acetaminophen 325 MG Tablet 650 MG PO (02:56)
[2019-02-16 05:20] LABS: Absolute Lymphocyte Count 2.59 X10^3/ul (0.83-4.51); Absolute Neutrophil Count 6.8 X10^3/uL (2.0-7.7); Basophil# 0.03 X10^3/uL; Basophil% 0.3 % (0-1); Eosinophil# 0.34 X10^3/uL; Eosinophils% 3.1 % (0-5); Hematocrit 34.8 % (37-47); Hemoglobin 11.1 g/dl (12.0-15.0); Lymphocyte # 2.59 X10^3/ul (4.0); Lymphocyte % 23.5 % (19-41); Mean Corp Hgb Conc 31.9 g/gl (32-36); Mean Corpuscular Hgb 29.1 pg (27.0-32.0); Mean Corpuscular Volume 91.3 fL (81-99); Mean Platelet Vol. 9.7 fl (6.2-12.0); Monocyte# 1.25 X10^3/uL; Monocyte% 11.4 % (0-10); Neutrophil # 6.79 X10^3/uL (2.7-7.7); Neutrophil % 61.6 % (47-70); Platelet Count 180 K/mm3 (150-450); RBC Distribution Width CV 15.9 % (11.6-14.6); RBC Distribution Width SD 51.9 fl (35.1-43.9); Red Blood Count 3.81 M/mm3 (4.2-5.4)
[2019-02-16 05:25] LABS: POSITIVE COUNT NO; POSITIVE DIFFERENTIAL NO; POSITIVE MORPHOLOGY NO
[2019-02-16 05:46] LABS: ALB/GLOB Ratio 0.7 RATIO (0.9-2.4); AST(SGOT) 23 U/L (15-37); Alanine Aminotransfer ALT/SGPT 35 U/L (13-56); Albumin, Serum 2.8 g/dL (3.2-5.0); Alkaline Phosphatase 82 U/L (45-117); Anion Gap 5 (5-15); BUN 28 mg/dL (7-18); BUN/Creat Ratio 17.3 RATIO (10-20); Chloride 112 mmol/L (98-107); Creatinine, Serum 1.62 mg/dL (0.55-1.02); EST Glomerular Filtration Rate 34 mL/min (>60); Est Glom Filt Rate - Afr Amer 41 mL/min (>60); Estimated Creatinine Clearance 37.94 ml/min; Globulin 3.8 g/dL (2.2-4.2); Glucose 90 mg/dL (74-106); Lipase 554 U/L (73-393); Magnesium 2.9 mg/dL (1.6-2.6); Potassium 4.4 mmol/L (3.5-5.1); Protein, Total 6.6 g/dL (6.4-8.2); Sodium Level 145 mmol/L (136-145)
--- NOTE | 2019-02-16 05:55 | RAD_ITS ---
STUDY: X-RAY - ABDOMEN/PELVIS REASON FOR EXAM: Female, 64 years old. Constipation. TECHNIQUE: Single AP view of the abdomen / pelvis. COMPARISON: Comparison is made with prior study dated September 09, 2017. FINDINGS: There is marked degree of elevation of the right hemidiaphragm. There is gaseous distention of the stomach. Mildly distended visualized portion of the right;. Gas is seen down to the region of the rectum. A catheter is seen within the pelvis. The visualized liver, spleen and kidneys are grossly normal in size and morphology. Normal soft tissue structures. There are diffuse degenerative changes of the visualized lumbar spine. RAD/Abdomen Single View (Portable) IMPRESSION: Marked elevation of the right hemidiaphragm. Gaseous distention of the stomach. Gas and fecal material are seen in the colon. Electronically Signed: Luís Hines, at 8:28 EDT , Service support ,
[2019-02-16] MEDS: 0.9% NaCl Peripheral Flush Adult/Peds IV (06:15)
[2019-02-16] MEDS: Baclofen 10 MG Tablet PO ×2 (06:16→14:06)
[2019-02-16] MEDS: Heparin Injection (Vial) 5,000 UNIT/ML VIAL 5000 UNIT SC ×3 (06:16→21:25)
[2019-02-16] MEDS: 0.9% Normal Saline 1,000 ML 150 ML IV ×3 (07:29→19:59)
--- NOTE | 2019-02-16 07:52 | EKG12_ITS ---
Test Reason : CP Blood Pressure : / mmHG Vent. Rate : 078 BPM Atrial Rate : 078 BPM P-R Int : 126 ms QRS Dur : 098 ms QT Int : 426 ms P-R-T Axes : 013 067 059 degrees QTc Int : 485 ms Normal sinus rhythm Low voltage QRS Borderline ECG When compared with ECG of 16-SEP-2017 05:14, No significant change was found Confirmed by SHELBIE RODRIGUEZ ([id number]), image editor FRANCIA GONZALES ([id number]) on 02/20/2019 4:47:43 PM Referred By: Too Nuñez Confirmed By:HARJINDER RODRIGUEZ
[2019-02-16] MEDS: Loratadine 10 MG Tablet 5 MG PO (09:34)
[2019-02-16] MEDS: Lactulose 20 GM/30 ML UDC PO (09:35)
[2019-02-16] MEDS: Iron Polysaccharide Complex 150 MG CAPSULE PO (09:35)
[2019-02-16] MEDS: Cephalexin 500 MG Capsule PO ×2 (12:01→18:41)
--- NOTE | 2019-02-16 13:09 | PCM.PN.HOSP ---
Patient Problems: Active and Suspected Problems Dehydration (Acute) Constipation (Acute) Vomiting (Acute) Declining functional status (Acute) Subjective: Feels a little bit better than yesterday though she does appear to be bloated and still has not had a bowel movement per the . She has MS and has had these episodes in the past and the others when he did not give her mag citrate was because he was unable to get her up to the bedside commode because of her weakness. Vitals/I&O's: Vital Signs Temp Pulse Resp BP Pulse Ox 97.7 F L 73 18 115/63 94 02/16/19 12:00 02/16/19 12:00 02/16/19 12:00 02/16/19 12:00 02/16/19 12:00 Oxygen Flow Rate (L/min) 2 Oxygen Delivery Method Nasal Cannula Weight: 169 lb 8.568 oz Body Mass Index (BMI) 24.3 Finger Stick Blood Glucose 67 Intake and Output for Last 24 Hours 02/14/19 02/15/19 02/16/19 23:59 23:59 23:59 Intake Total 4446 / 4446 Output Total 3750 / 3750 Balance 696 / 696 General: Alert, Oriented x3, Cooperative, No apparent distress HEENT: Atraumatic, PERRLA, EOMI, Normocephalic Oral: Dry Mucosa Neck: Supple, No JVD Lungs: Clear to auscultation, Normal air movement, No rhonchi, No wheeze, No rales, Diminished Cardiovascular: Regular rate, Regular Rhythm, Normal S1, Normal S2, No murmurs Abdomen: Soft, Non Tender, Non-Distended, No Hepato-splenomegaly Extremities: No edema, Capillary Refill Less than 3 Seconds Skin: No rashes, No breakdown Neurological: Neuro grossly intact, Sensory exam intact to light touch and pain, - - Chronic right hemiparesis Psych/Mental Status: Normal Affect, Appropriate Microbiology Past 72 Hours 02/15/19 12:55 Urine Catheter - Catheter Urine Culture - Preliminary Gram negative michell Laboratory Results 02/15/19 12:55: Urine RBC 10-25 SEEN, Urine WBC >100 SEEN, Ur Squamous Epith Cells 0 SEEN, Urine Bacteria 3+, Urine Mucus 0 SEEN 02/16/19 05:10: WBC 11.0, RBC 3.81 L, Hgb 11.1 L, Hct 34.8 L, MCV 91.3, MCH 29.1, MCHC 31.9 L, RDW 15.9 H, RDW Differential 51.9 H, Plt Count 180, MPV 9.7, Immature Gran % (Auto) 0.100, Neut % (Auto) 61.6, Lymph % (Auto) 23.5, [place] % (Auto) 11.4 H, Eos % (Auto) 3.1, Baso % (Auto) 0.3, Absolute Neuts (auto) 6.8, Absolute Lymphs (auto) 2.59, Total Counted Not Reportable 02/16/19 05:10: Sodium 145, Potassium 4.4, Chloride 112 H, Carbon Dioxide 28.0, Anion Gap 5, BUN 28 H, Creatinine 1.62 H, Estim Creat Clear Calc 37.94, Est GFR (MDRD) Af Amer 41 L, Est GFR (MDRD) Non-Af 34 L, BUN/Creatinine Ratio 17.3, Glucose 90, Calcium 8.0 L, Magnesium 2.9 H, Total Bilirubin 0.50, AST 23, ALT 35, Alkaline Phosphatase 82, Total Protein 6.6, Albumin 2.8 L, Globulin 3.8, Albumin/Globulin Ratio 0.7 L, Lipase 554 H Current Medications Acetaminophen (Tylenol) 650 mg PO Q6H PRN PRN PRN Reason: Mild Pain (1-3)/Temp > 100.7 F Last Admin: 02/16/19 02:56 Dose: 650 mg Alprazolam (Xanax) 0.5 mg PO QHS [facility] Last Admin: 02/15/19 21:12 Dose: 0.5 mg Amitriptyline HCl (Elavil) 75 mg PO QHS [facility] Last Admin: 02/15/19 21:11 Dose: 75 mg Aspirin (Ecotrin) 81 mg PO QHS [facility] Last Admin: 02/15/19 21:11 Dose: 81 mg Atorvastatin Calcium (Lipitor) 40 mg PO QHS [facility] Last Admin: 02/15/19 21:11 Dose: 40 mg Baclofen (Lioresal) 20 mg PO QHS [facility] Last Admin: 02/15/19 21:13 Dose: 20 mg Baclofen (Lioresal) 10 mg PO 0600,1400 [facility] Last Admin: 02/16/19 06:16 Dose: 10 mg Calcitriol (Rocaltrol) 0.25 mcg PO QHS [facility] Last Admin: 02/15/19 21:12 Dose: 0.25 mcg Cephalexin (Keflex) 500 mg PO Q6 [facility] Last Admin: 02/16/19 12:01 Dose: 500 mg Heparin Sodium (Porcine) (Heparin Na) 5,000 unit SC Q8 [facility] Last Admin: 02/16/19 06:16 Dose: 5,000 unit Hydralazine HCl (Apresoline Iv) 5 mg IV Q4H PRN PRN PRN Reason: HYPERTENSION Sodium Chloride () 1,000 mls @ 150 mls/hr IV .Q6H40M [facility] Last Admin: 02/16/19 07:29 Dose: 150 mls/hr Lactulose (Chronulac, Cephulac) 20 gm PO BID [facility] Last Admin: 02/16/19 09:35 Dose: 20 gm Loratadine (Claritin) 5 mg PO DAILY [facility] Last Admin: 02/16/19 09:34 Dose: 5 mg Magnesium Oxide (Mag-Ox 400) 400 mg PO QHS [facility] Last Admin: 02/15/19 21:12 Dose: 400 mg Melatonin (Melatonin) 5 mg PO QHS [facility] Last Admin: 02/15/19 21:13 Dose: 5 mg Ondansetron HCl (Zofran) 4 mg IV Q8H PRN PRN PRN Reason: NAUSEA/VOMITING Last Admin: 02/15/19 20:34 Dose: 4 mg [facility]accharide [facility] ([facility] 150[facility] Last Admin: 02/16/19 09:35 Dose: 150 mg Promethazine HCl (Phenergan) 6.25 mg IV Q6H PRN PRN PRN Reason: NAUSEA/VOMITING Sodium Chloride () 5 - 15 ml IV UD PRN PRN Reason: SALINE FLUSH Last Admin: 02/16/19 06:15 Dose: 10 ml Medical Necessity - Tobacco Use Smoking Status: Never smoker Assessment/Plan All Active Problems Dehydration (Acute) Constipation (Acute) Vomiting (Acute) Declining functional status (Acute) Complicated urinary tract infection (Resolved) 1. Constipation/nausea and vomiting/UTI with a suprapubic catheter -She has a chronic suprapubic catheter however in discussion with the her symptoms were atypical for her and this could represent symptomatic UTI -She is growing greater than 100,000 gram-negative rods therefore will initiate Keflex -She generally is okay after getting a mag citrate dose, therefore will order mag citrate for today and see if that helps her have a bowel movement on top of continuing her home lactulose. -CT of her abdomen was unremarkable, and any findings for chronic -Her lipase is close to normal therefore no pancreatitis and can resume p.o. intake 2. Chronic MS with chronic right hemiparesis -We will consult PT/OT/speech therapy for evaluation and treatment -The does not think that he needs help at home from any healthcare agency though he would like if possible to have a Azar lift to make transferring at home easier if possible -We will continue her home antispastic medications 3. CKD stage IV -Continue with IV fluids until taking adequate p.o. -On admission creatinine was 1.93 which is around baseline though with IV fluids today improved to 1.62 4. History of TIA/HLD -Stable -Continue with aspirin and statin DVT: Heparin Code Visit OBSV E&M: 67086 Initial observation care L2
--- NOTE | 2019-02-16 13:13 | PN_ITS ---
Patient Problems: Active and Suspected Problems Dehydration (Acute) Constipation (Acute) Vomiting (Acute) Declining functional status (Acute) Subjective: Feels a little bit better than yesterday though she does appear to be bloated and still has not had a bowel movement per the . She has MS and has had these episodes in the past and the others when he did not give her mag citrate was because he was unable to get her up to the bedside commode because of her weakness. Vitals/I&O's: Vital Signs Temp Pulse Resp BP Pulse Ox 97.7 F L 73 18 115/63 94 02/16/19 12:00 02/16/19 12:00 02/16/19 12:00 02/16/19 12:00 02/16/19 12:00 Oxygen Flow Rate (L/min) 2 Oxygen Delivery Method Nasal Cannula Weight: 169 lb 8.568 oz Body Mass Index (BMI) 24.3 Finger Stick Blood Glucose 67 Intake and Output for Last 24 Hours 02/14/19 02/15/19 02/16/19 23:59 23:59 23:59 Intake Total 4446 / 4446 Output Total 3750 / 3750 Balance 696 / 696 General: Alert, Oriented x3, Cooperative, No apparent distress HEENT: Atraumatic, PERRLA, EOMI, Normocephalic Oral: Dry Mucosa Neck: Supple, No JVD Lungs: Clear to auscultation, Normal air movement, No rhonchi, No wheeze, No rales, Diminished Cardiovascular: Regular rate, Regular Rhythm, Normal S1, Normal S2, No murmurs Abdomen: Soft, Non Tender, Non-Distended, No Hepato-splenomegaly Extremities: No edema, Capillary Refill Less than 3 Seconds Skin: No rashes, No breakdown Neurological: Neuro grossly intact, Sensory exam intact to light touch and pain, - - Chronic right hemiparesis Psych/Mental Status: Normal Affect, Appropriate Microbiology Past 72 Hours 02/15/19 12:55 Urine Catheter - Catheter Urine Culture - Preliminary Gram negative michell Laboratory Results 02/15/19 12:55: Urine RBC 10-25 SEEN, Urine WBC >100 SEEN, Ur Squamous Epith Cells 0 SEEN, Urine Bacteria 3+, Urine Mucus 0 SEEN 02/16/19 05:10: WBC 11.0, RBC 3.81 L, Hgb 11.1 L, Hct 34.8 L, MCV 91.3, MCH 29.1, MCHC 31.9 L, RDW 15.9 H, RDW Differential 51.9 H, Plt Count 180, MPV 9.7, Immature Gran % (Auto) 0.100, Neut % (Auto) 61.6, Lymph % (Auto) 23.5, [place] % (Auto) 11.4 H, Eos % (Auto) 3.1, Baso % (Auto) 0.3, Absolute Neuts (auto) 6.8, Absolute Lymphs (auto) 2.59, Total Counted Not Reportable 02/16/19 05:10: Sodium 145, Potassium 4.4, Chloride 112 H, Carbon Dioxide 28.0, Anion Gap 5, BUN 28 H, Creatinine 1.62 H, Estim Creat Clear Calc 37.94, Est GFR (MDRD) Af Amer 41 L, Est GFR (MDRD) Non-Af 34 L, BUN/Creatinine Ratio 17.3, Glucose 90, Calcium 8.0 L, Magnesium 2.9 H, Total Bilirubin 0.50, AST 23, ALT 35, Alkaline Phosphatase 82, Total Protein 6.6, Albumin 2.8 L, Globulin 3.8, Albumin/Globulin Ratio 0.7 L, Lipase 554 H Current Medications Acetaminophen (Tylenol) 650 mg PO Q6H PRN PRN PRN Reason: Mild Pain (1-3)/Temp > 100.7 F Last Admin: 02/16/19 02:56 Dose: 650 mg Alprazolam (Xanax) 0.5 mg PO QHS [facility] Last Admin: 02/15/19 21:12 Dose: 0.5 mg Amitriptyline HCl (Elavil) 75 mg PO QHS [facility] Last Admin: 02/15/19 21:11 Dose: 75 mg Aspirin (Ecotrin) 81 mg PO QHS [facility] Last Admin: 02/15/19 21:11 Dose: 81 mg Atorvastatin Calcium (Lipitor) 40 mg PO QHS [facility] Last Admin: 02/15/19 21:11 Dose: 40 mg Baclofen (Lioresal) 20 mg PO QHS [facility] Last Admin: 02/15/19 21:13 Dose: 20 mg Baclofen (Lioresal) 10 mg PO 0600,1400 [facility] Last Admin: 02/16/19 06:16 Dose: 10 mg Calcitriol (Rocaltrol) 0.25 mcg PO QHS [facility] Last Admin: 02/15/19 21:12 Dose: 0.25 mcg Cephalexin (Keflex) 500 mg PO Q6 [facility] Last Admin: 02/16/19 12:01 Dose: 500 mg Heparin Sodium (Porcine) (Heparin Na) 5,000 unit SC Q8 [facility] Last Admin: 02/16/19 06:16 Dose: 5,000 unit Hydralazine HCl (Apresoline Iv) 5 mg IV Q4H PRN PRN PRN Reason: HYPERTENSION Sodium Chloride () 1,000 mls @ 150 mls/hr IV .Q6H40M [facility] Last Admin: 02/16/19 07:29 Dose: 150 mls/hr Lactulose (Chronulac, Cephulac) 20 gm PO BID [facility] Last Admin: 02/16/19 09:35 Dose: 20 gm Loratadine (Claritin) 5 mg PO DAILY [facility] Last Admin: 02/16/19 09:34 Dose: 5 mg Magnesium Oxide (Mag-Ox 400) 400 mg PO QHS [facility] Last Admin: 02/15/19 21:12 Dose: 400 mg Melatonin (Melatonin) 5 mg PO QHS [facility] Last Admin: 02/15/19 21:13 Dose: 5 mg Ondansetron HCl (Zofran) 4 mg IV Q8H PRN PRN PRN Reason: NAUSEA/VOMITING Last Admin: 02/15/19 20:34 Dose: 4 mg Polysaccharide [facility] ([facility]rex [facility] Last Admin: 02/16/19 09:35 Dose: 150 mg Promethazine HCl (Phenergan) 6.25 mg IV Q6H PRN PRN PRN Reason: NAUSEA/VOMITING Sodium Chloride () 5 - 15 ml IV UD PRN PRN Reason: SALINE FLUSH Last Admin: 02/16/19 06:15 Dose: 10 ml Medical Necessity - Tobacco Use Smoking Status: Never smoker Assessment/Plan All Active Problems Dehydration (Acute) Constipation (Acute) Vomiting (Acute) Declining functional status (Acute) Complicated urinary tract infection (Resolved) 1. Constipation/nausea and vomiting/UTI with a suprapubic catheter -She has a chronic suprapubic catheter however in discussion with the her symptoms were atypical for her and this could represent symptomatic UTI -She is growing greater than 100,000 gram-negative rods therefore will initiate Keflex -She generally is okay after getting a mag citrate dose, therefore will order mag citrate for today and see if that helps her have a bowel movement on top of continuing her home lactulose. -CT of her abdomen was unremarkable, and any findings for chronic -Her lipase is close to normal therefore no pancreatitis and can resume p.o. intake 2. Chronic MS with chronic right hemiparesis -We will consult PT/OT/speech therapy for evaluation and treatment -The does not think that he needs help at home from any healthcare agency though he would like if possible to have a Azar lift to make transferring at home easier if possible -We will continue her home antispastic medications 3. CKD stage IV -Continue with IV fluids until taking adequate p.o. -On admission creatinine was 1.93 which is around baseline though with IV fluids today improved to 1.62 4. History of TIA/HLD -Stable -Continue with aspirin and statin DVT: Heparin Code Visit OBSV E&M: 65920 Initial observation care L2
[2019-02-16] MEDS: Magnesium Citrate 300 ML PO (14:02)
--- NOTE | 2019-02-16 14:48 | CHAPLAIN ---
Type of Pastoral Visit _x__ Initial Visit ___ Follow-up Visit ___ On-call Visit ___ General Patient Visit ___ Spiritual Assessment ___ Family Conference ___ Bereavement ___ Rapid Response ___ Code Blue ___ Other (describe below) Pastoral Care Referral From _x__ Patient _x__ Family ___ Nurse ___ Physician ___ Director Immunology ___ Stock Room Manager ___ Other (describe below) Sacrament/Intervention _x__ Active listening ___ Anointing ___ Nondenominational ___ Bereavement ___ Communion ___ Justine exploration ___ ___ Life review _x__ Prayer ___ Reconciliation ___ Sacrament of Sick _x__ Supportive presence ___ Wedding ___ Other (describe below) Pastoral Comments patient and spouse have been seen before in previous admissions; spouse gives update on health needs of pt; both are open to spiritual care support
--- NOTE | 2019-02-16 15:58 | CASEMGMT ---
Script for boris lift received and faxed to [facility] at [facility]. SHARLENE LATHAM will continue to follow this patient and plan for a safe discharge.
[2019-02-16] MEDS: Amitriptyline 25 MG Tablet 75 MG PO (21:25)
[2019-02-16] MEDS: Calcitriol 0.25 MCG Capsule PO (21:25)
[2019-02-16] MEDS: ALPRAZolam 0.5 MG Tablet PO (21:25)
[2019-02-16] MEDS: Baclofen 10 MG Tablet 20 MG PO (21:26)
[2019-02-16] MEDS: Magnesium Oxide 400 MG Tablet PO (21:26)
[2019-02-16] MEDS: Aspirin E.C. 81 MG Tablet PO (21:26)
[2019-02-16] MEDS: Atorvastatin Calcium 40 MG Tablet PO (21:26)
[2019-02-16] MEDS: MELATONIN 10 MG TABLET 5 MG PO (21:27)
[2019-02-17] VITALS (11 sets, daily range): BP systolic 128–156; BP diastolic 70–90; PULSE 71–89; RESP 14–20; TEMP 36.4–36.7; O2SAT 94–99
[2019-02-17] MEDS: Cephalexin 500 MG Capsule PO ×2 (00:03→05:45)
[2019-02-17] MEDS: 0.9% Normal Saline 1,000 ML 150 ML IV ×4 (02:22→23:30)
[2019-02-17 04:46] LABS: Anion Gap 3 (5-15); BUN 18 mg/dL (7-18); Calcium,Total 7.5 mg/dL (8.5-10.1); Chloride 117 mmol/L (98-107); Creatinine, Serum 1.29 mg/dL (0.55-1.02); EST Glomerular Filtration Rate 44 mL/min (>60); Est Glom Filt Rate - Afr Amer 54 mL/min (>60); Estimated Creatinine Clearance 47.64 ml/min; Glucose 83 mg/dL (74-106); Potassium 3.9 mmol/L (3.5-5.1); Sodium Level 148 mmol/L (136-145)
[2019-02-17] MEDS: Baclofen 10 MG Tablet PO ×2 (05:44→15:00)
[2019-02-17] MEDS: 0.9% NaCl Peripheral Flush Adult/Peds IV (05:44)
[2019-02-17] MEDS: Heparin Injection (Vial) 5,000 UNIT/ML VIAL 5000 UNIT SC ×3 (05:45→22:11)
--- NOTE | 2019-02-17 11:22 | PCM.PN.HOSP ---
Patient Problems: Active and Suspected Problems Dehydration (Acute) Constipation (Acute) Vomiting (Acute) Declining functional status (Acute) Subjective: Sleepy today, has not been able to sleep for the last 3 or 4 days. She did have multiple bowel movements last night that were liquid after the magnesium citrate. Vitals/I&O's: Vital Signs Temp Pulse Resp BP Pulse Ox 97.5 F L 74 20 H 128/70 H 99 02/17/19 09:20 02/17/19 09:20 02/17/19 09:20 02/17/19 09:20 02/17/19 09:20 Oxygen Flow Rate (L/min) 2 Oxygen Delivery Method Room Air Weight: 169 lb 8.568 oz Body Mass Index (BMI) 24.3 Finger Stick Blood Glucose 67 Intake and Output for Last 24 Hours 02/15/19 02/16/19 02/17/19 23:59 23:59 23:59 Intake Total 7268 / 7268 938 / 938 Output Total 6100 / 6100 1250 / 1250 Balance 1168 / 1168 -312 / -312 General: Alert, Oriented x3, Cooperative, No apparent distress HEENT: Atraumatic, PERRLA, EOMI, Normocephalic Oral: Dry Mucosa Neck: Supple, No JVD Lungs: Clear to auscultation, Normal air movement, No rhonchi, No wheeze, No rales, Diminished Cardiovascular: Regular rate, Regular Rhythm, Normal S1, Normal S2, No murmurs Abdomen: Soft, Non Tender, Non-Distended, No Hepato-splenomegaly Extremities: No edema, Capillary Refill Less than 3 Seconds Skin: No rashes, No breakdown Neurological: Neuro grossly intact, Sensory exam intact to light touch and pain, - - Chronic right hemiparesis Psych/Mental Status: Normal Affect, Appropriate Microbiology Past 72 Hours 02/15/19 12:55 Urine Catheter - Catheter Urine Culture - Final Morganella morganii sp andrewratna Laboratory Results 02/17/19 04:15: Sodium 148 H, Potassium 3.9, Chloride 117 H, Carbon Dioxide 28.0, Anion Gap 3 L, BUN 18, Creatinine 1.29 H, Estim Creat Clear Calc 47.64, Est GFR (MDRD) Af Amer 54 L, Est GFR (MDRD) Non-Af 44 L, BUN/Creatinine Ratio 14.0, Glucose 83, Calcium 7.5 L Current Medications Acetaminophen (Tylenol) 650 mg PO Q6H PRN PRN PRN Reason: Mild Pain (1-3)/Temp > 100.7 F Last Admin: 02/16/19 02:56 Dose: 650 mg Alprazolam (Xanax) 0.5 mg PO QHS [facility] Last Admin: 02/16/19 21:25 Dose: 0.5 mg Amitriptyline HCl (Elavil) 75 mg PO QHS [facility] Last Admin: 02/16/19 21:25 Dose: 75 mg Aspirin (Ecotrin) 81 mg PO QHS [facility] Last Admin: 02/16/19 21:26 Dose: 81 mg Atorvastatin Calcium (Lipitor) 40 mg PO QHS [facility] Last Admin: 02/16/19 21:26 Dose: 40 mg Baclofen (Lioresal) 20 mg PO QHS [facility] Last Admin: 02/16/19 21:26 Dose: 20 mg Baclofen (Lioresal) 10 mg PO 0600,1400 [facility] Last Admin: 02/17/19 05:44 Dose: 10 mg Calcitriol (Rocaltrol) 0.25 mcg PO QHS [facility] Last Admin: 02/16/19 21:25 Dose: 0.25 mcg Heparin Sodium (Porcine) (Heparin Na) 5,000 unit SC Q8 [facility] Last Admin: 02/17/19 05:45 Dose: 5,000 unit Hydralazine HCl (Apresoline Iv) 5 mg IV Q4H PRN PRN PRN Reason: HYPERTENSION Sodium Chloride () 1,000 mls @ 150 mls/hr IV .Q6H40M [facility] Last Admin: 02/17/19 09:25 Dose: 150 mls/hr Ceftriaxone Sodium 2 gm/ (Sodium Chloride) 50 mls @ 100 mls/hr IV Q24 [facility] Last Admin: 02/17/19 10:47 Dose: 100 mls/hr Lactulose (Chronulac, Cephulac) 20 gm PO BID [facility] Last Admin: 02/17/19 09:27 Dose: Not Given Loratadine (Claritin) 5 mg PO DAILY [facility] Last Admin: 02/16/19 09:34 Dose: 5 mg Magnesium Oxide (Mag-Ox 400) 400 mg PO QHS [facility] Last Admin: 02/16/19 21:26 Dose: 400 mg Melatonin (Melatonin) 5 mg PO QHS [facility] Last Admin: 02/16/19 21:27 Dose: 5 mg Ondansetron HCl (Zofran) 4 mg IV Q8H PRN PRN PRN Reason: NAUSEA/VOMITING Last Admin: 02/15/19 20:34 Dose: 4 mg Polysaccharide Iron Complex (Ferrex 150) [facility] Last Admin: 02/16/19 09:35 Dose: 150 mg Promethazine HCl (Phenergan) 6.25 mg IV Q6H PRN PRN PRN Reason: NAUSEA/VOMITING Sodium Chloride () 5 - 15 ml IV UD PRN PRN Reason: SALINE FLUSH Last Admin: 02/17/19 05:44 Dose: 10 ml Medical Necessity - Tobacco Use Smoking Status: Never smoker Assessment/Plan All Active Problems Dehydration (Acute) Constipation (Acute) Vomiting (Acute) Declining functional status (Acute) Complicated urinary tract infection (Resolved) 1. Constipation/nausea and vomiting/UTI with a suprapubic catheter -She has a chronic suprapubic catheter however in discussion with the her symptoms were atypical for her and this could represent symptomatic UTI -She is growing greater than 100,000 Morganella morganii, it is resistant to Ancef and Keflex and she has allergies to Cipro and Zosyn therefore will initiate treatment with Rocephin and she will need to go home on it for a total of 5 days. -She generally is okay after getting a mag citrate dose, multiple bowel movements after mag citrate last night, will continue with her lactulose -CT of her abdomen was unremarkable, and any findings for chronic -Her lipase is close to normal therefore no pancreatitis and can resume p.o. intake 2. Chronic MS with chronic right hemiparesis -We will consult PT/OT/speech therapy for evaluation and treatment -The does not think that he needs help at home from any healthcare agency though he would like if possible to have a Azar lift to make transferring at home easier if possible -We will continue her home antispastic medications 3. CKD stage IV -Continue with IV fluids until taking adequate p.o. -On admission creatinine was 1.93 which is around baseline though with IV fluids today improved to 1.62 4. History of TIA/HLD -Stable -Continue with aspirin and statin DVT: Heparin Code Visit OBSV E&M: 33610 Subsequent observation care L2
--- NOTE | 2019-02-17 11:25 | PN_ITS ---
Patient Problems: Active and Suspected Problems Dehydration (Acute) Constipation (Acute) Vomiting (Acute) Declining functional status (Acute) Subjective: Sleepy today, has not been able to sleep for the last 3 or 4 days. She did have multiple bowel movements last night that were liquid after the magnesium citrate. Vitals/I&O's: Vital Signs Temp Pulse Resp BP Pulse Ox 97.5 F L 74 20 H 128/70 H 99 02/17/19 09:20 02/17/19 09:20 02/17/19 09:20 02/17/19 09:20 02/17/19 09:20 Oxygen Flow Rate (L/min) 2 Oxygen Delivery Method Room Air Weight: 169 lb 8.568 oz Body Mass Index (BMI) 24.3 Finger Stick Blood Glucose 67 Intake and Output for Last 24 Hours 02/15/19 02/16/19 02/17/19 23:59 23:59 23:59 Intake Total 7268 / 7268 938 / 938 Output Total 6100 / 6100 1250 / 1250 Balance 1168 / 1168 -312 / -312 General: Alert, Oriented x3, Cooperative, No apparent distress HEENT: Atraumatic, PERRLA, EOMI, Normocephalic Oral: Dry Mucosa Neck: Supple, No JVD Lungs: Clear to auscultation, Normal air movement, No rhonchi, No wheeze, No rales, Diminished Cardiovascular: Regular rate, Regular Rhythm, Normal S1, Normal S2, No murmurs Abdomen: Soft, Non Tender, Non-Distended, No Hepato-splenomegaly Extremities: No edema, Capillary Refill Less than 3 Seconds Skin: No rashes, No breakdown Neurological: Neuro grossly intact, Sensory exam intact to light touch and pain, - - Chronic right hemiparesis Psych/Mental Status: Normal Affect, Appropriate Microbiology Past 72 Hours 02/15/19 12:55 Urine Catheter - Catheter Urine Culture - Final Morganella morganii sp andrewratna Laboratory Results 02/17/19 04:15: Sodium 148 H, Potassium 3.9, Chloride 117 H, Carbon Dioxide 28.0, Anion Gap 3 L, BUN 18, Creatinine 1.29 H, Estim Creat Clear Calc 47.64, Est GFR (MDRD) Af Amer 54 L, Est GFR (MDRD) Non-Af 44 L, BUN/Creatinine Ratio 14.0, Glucose 83, Calcium 7.5 L Current Medications Acetaminophen (Tylenol) 650 mg PO Q6H PRN PRN PRN Reason: Mild Pain (1-3)/Temp > 100.7 F Last Admin: 02/16/19 02:56 Dose: 650 mg Alprazolam (Xanax) 0.5 mg PO QHS REPLACED BY [facility] Last Admin: 02/16/19 21:25 Dose: 0.5 mg Amitriptyline HCl (Elavil) 75 mg PO QHS REPLACED BY [facility] Last Admin: 02/16/19 21:25 Dose: 75 mg Aspirin (Ecotrin) 81 mg PO QHS REPLACED BY [facility] Last Admin: 02/16/19 21:26 Dose: 81 mg Atorvastatin Calcium (Lipitor) 40 mg PO QHS REPLACED BY [facility] Last Admin: 02/16/19 21:26 Dose: 40 mg Baclofen (Lioresal) 20 mg PO QHS REPLACED BY [facility] Last Admin: 02/16/19 21:26 Dose: 20 mg Baclofen (Lioresal) 10 mg PO 0600,1400 REPLACED BY [facility] Last Admin: 02/17/19 05:44 Dose: 10 mg Calcitriol (Rocaltrol) 0.25 mcg PO QHS REPLACED BY [facility] Last Admin: 02/16/19 21:25 Dose: 0.25 mcg Heparin Sodium (Porcine) (Heparin Na) 5,000 unit SC Q8 REPLACED BY [facility] Last Admin: 02/17/19 05:45 Dose: 5,000 unit Hydralazine HCl (Apresoline Iv) 5 mg IV Q4H PRN PRN PRN Reason: HYPERTENSION Sodium Chloride () 1,000 mls @ 150 mls/hr IV .Q6H40M REPLACED BY [facility] Last Admin: 02/17/19 09:25 Dose: 150 mls/hr Ceftriaxone Sodium 2 gm/ (Sodium Chloride) 50 mls @ 100 mls/hr IV Q24 REPLACED BY [facility] Last Admin: 02/17/19 10:47 Dose: 100 mls/hr Lactulose (Chronulac, Cephulac) 20 gm PO BID REPLACED BY [facility] Last Admin: 02/17/19 09:27 Dose: Not Given Loratadine (Claritin) 5 mg PO DAILY REPLACED BY [facility] Last Admin: 02/16/19 09:34 Dose: 5 mg Magnesium Oxide (Mag-Ox 400) 400 mg PO QHS REPLACED BY [facility] Last Admin: 02/16/19 21:26 Dose: 400 mg Melatonin (Melatonin) 5 mg PO QHS REPLACED BY [facility] Last Admin: 02/16/19 21:27 Dose: 5 mg Ondansetron HCl (Zofran) 4 mg IV Q8H PRN PRN PRN Reason: NAUSEA/VOMITING Last Admin: 02/15/19 20:34 Dose: 4 mg Polysaccharide [facility] ([facility]rex 150) [facility] Last Admin: 02/16/19 09:35 Dose: 150 mg Promethazine HCl (Phenergan) 6.25 mg IV Q6H PRN PRN PRN Reason: NAUSEA/VOMITING Sodium Chloride () 5 - 15 ml IV UD PRN PRN Reason: SALINE FLUSH Last Admin: 02/17/19 05:44 Dose: 10 ml Medical Necessity - Tobacco Use Smoking Status: Never smoker Assessment/Plan All Active Problems Dehydration (Acute) Constipation (Acute) Vomiting (Acute) Declining functional status (Acute) Complicated urinary tract infection (Resolved) 1. Constipation/nausea and vomiting/UTI with a suprapubic catheter -She has a chronic suprapubic catheter however in discussion with the her symptoms were atypical for her and this could represent symptomatic UTI -She is growing greater than 100,000 Morganella morganii, it is resistant to Ancef and Keflex and she has allergies to Cipro and Zosyn therefore will initi ate treatment with Rocephin and she will need to go home on it for a total of 5 days. -She generally is okay after getting a mag citrate dose, multiple bowel movements after mag citrate last night, will continue with her lactulose -CT of her abdomen was unremarkable, and any findings for chronic -Her lipase is close to normal therefore no pancreatitis and can resume p.o. intake 2. Chronic MS with chronic right hemiparesis -We will consult PT/OT/speech therapy for evaluation and treatment -The does not think that he needs help at home from any healthcare agency though he would like if possible to have a Azar lift to make transferring at home easier if possible -We will continue her home antispastic medications 3. CKD stage IV -Continue with IV fluids until taking adequate p.o. -On admission creatinine was 1.93 which is around baseline though with IV fluids today improved to 1.62 4. History of TIA/HLD -Stable -Continue with aspirin and statin DVT: Heparin Code Visit OBSV E&M: 47484 Subsequent observation care L2
--- NOTE | 2019-02-17 14:26 | CHAPLAIN ---
conversation with spouse as patient sleeps; support and listening ear given to spouse
[2019-02-17] MEDS: Loratadine 10 MG Tablet 5 MG PO (15:01)
[2019-02-17] MEDS: Iron Polysaccharide Complex 150 MG CAPSULE PO (15:01)
--- NOTE | 2019-02-17 15:22 | CASEMGMT ---
SHARLENE LATHAM received update from Fartun at [facility] that Azar will take about a week to setup. updated with contact information for Valeriano at [facility] at to contact for azar setup. SHARLENE LATHAM also updated with script for IV ATB for at discharge. Patient will need IV Rocephin for 3 doses after discharge. SHARLENE LATHAM spoke with , who is a nurse and has done IV ATBs in the past. Would like IV ATBs setup with [facility] and referral sent. Received call back from Dotty with benefits and cost is $40 per day for ATB. Dotty confirmed that everything is good for antibiotics at home. Dotty to contact to finalize setup.
[2019-02-17] MEDS: Calcitriol 0.25 MCG Capsule PO (22:10)
[2019-02-17] MEDS: Magnesium Oxide 400 MG Tablet PO (22:10)
[2019-02-17] MEDS: MELATONIN 10 MG TABLET 5 MG PO (22:11)
[2019-02-17] MEDS: Aspirin E.C. 81 MG Tablet PO (22:11)
[2019-02-17] MEDS: Baclofen 10 MG Tablet 20 MG PO (22:11)
[2019-02-17] MEDS: Amitriptyline 25 MG Tablet 75 MG PO (22:11)
[2019-02-17] MEDS: Atorvastatin Calcium 40 MG Tablet PO (22:11)
[2019-02-17] MEDS: ALPRAZolam 0.5 MG Tablet PO (22:11)
[2019-02-18] VITALS (13 sets, daily range): BP systolic 134–174; BP diastolic 75–107; PULSE 80–107; RESP 16–20; TEMP 36.4–37.2; O2SAT 90–96
[2019-02-18] MEDS: Acetaminophen 325 MG Tablet 650 MG PO ×2 (01:54→13:39)
[2019-02-18] MEDS: hydrALAZINE 20 MG/ML Vial 5 MG IV ×2 (02:06→20:22)
[2019-02-18] MEDS: Heparin Injection (Vial) 5,000 UNIT/ML VIAL 5000 UNIT SC ×3 (05:44→21:46)
[2019-02-18] MEDS: 0.9% Normal Saline 1,000 ML 150 ML IV ×3 (05:44→19:18)
[2019-02-18] MEDS: Baclofen 10 MG Tablet PO ×2 (05:45→13:40)
[2019-02-18 06:38] LABS: Anion Gap 0 (5-15); BUN 16 mg/dL (7-18); BUN/Creat Ratio 12.4 RATIO (10-20); Calcium,Total 7.7 mg/dL (8.5-10.1); Chloride 112 mmol/L (98-107); Creatinine, Serum 1.29 mg/dL (0.55-1.02); EST Glomerular Filtration Rate 44 mL/min (>60); Est Glom Filt Rate - Afr Amer 54 mL/min (>60); Estimated Creatinine Clearance 47.64 ml/min; Glucose 82 mg/dL (74-106); Potassium 3.5 mmol/L (3.5-5.1); Sodium Level 141 mmol/L (136-145)
[2019-02-18] MEDS: Lactulose 20 GM/30 ML UDC PO (08:12)
[2019-02-18] MEDS: Iron Polysaccharide Complex 150 MG CAPSULE PO (08:13)
[2019-02-18] MEDS: Loratadine 10 MG Tablet 5 MG PO (08:13)
[2019-02-18] MEDS: Mag Hydrox/Al Hydrox/Simeth 30 ML UDC PO (11:12)
--- NOTE | 2019-02-18 11:42 | PCM.PN.HOSP ---
Patient Problems: Active and Suspected Problems Dehydration (Acute) Constipation (Acute) Vomiting (Acute) Declining functional status (Acute) Subjective: She is much more alert today after she was able to get some sleep yesterday. Per the she is much better than she was yesterday and was able to help a little bit in terms of getting to the bedside commode though not as much as she is normally able to. Of note she is complaining of some gastric pain every time she swallows though denies any abdominal pain. Vitals/I&O's: Vital Signs Temp Pulse Resp BP Pulse Ox 98.3 F 80 18 134/75 H 95 02/18/19 08:11 02/18/19 08:11 02/18/19 08:11 02/18/19 08:11 02/18/19 08:11 Oxygen Flow Rate (L/min) 2 Oxygen Delivery Method Room Air Weight: 169 lb 8.568 oz Body Mass Index (BMI) 24.3 Finger Stick Blood Glucose 67 Intake and Output for Last 24 Hours 02/16/19 02/17/19 02/18/19 23:59 23:59 23:59 Intake Total 7268 / 7268 3464 / 3464 3521 / 3521 Output Total 6100 / 6100 3550 / 3550 3600 / 3600 Balance 1168 / 1168 -86 / -86 -79 / -79 General: Alert, Oriented x3, Cooperative, No apparent distress HEENT: Atraumatic, PERRLA, EOMI, Normocephalic Oral: Dry Mucosa Neck: Supple, No JVD Lungs: Clear to auscultation, Normal air movement, No rhonchi, No wheeze, No rales, Diminished Cardiovascular: Regular rate, Regular Rhythm, Normal S1, Normal S2, No murmurs Abdomen: Soft, Non Tender, Non-Distended, No Hepato-splenomegaly Extremities: No edema, Capillary Refill Less than 3 Seconds Skin: No rashes, No breakdown Neurological: Neuro grossly intact, Sensory exam intact to light touch and pain, - - Chronic right hemiparesis Psych/Mental Status: Normal Affect, Appropriate Microbiology Past 72 Hours 02/15/19 12:55 Urine Catheter - Catheter Urine Culture - Final Morganella morganii sp riddhimeri Laboratory Results 02/18/19 06:00: Sodium 141, Potassium 3.5, Chloride 112 H, Carbon Dioxide 29.0, Anion Gap 0 L, BUN 16, Creatinine 1.29 H, Estim Creat Clear Calc 47.64, Est GFR (MDRD) Af Amer 54 L, Est GFR (MDRD) Non-Af 44 L, BUN/Creatinine Ratio 12.4, Glucose 82, Calcium 7.7 L Current Medications Acetaminophen (Tylenol) 650 mg PO Q6H PRN PRN PRN Reason: Mild Pain (1-3)/Temp > 100.7 F Last Admin: 02/18/19 01:54 Dose: 650 mg Alprazolam (Xanax) 0.5 mg PO QHS [facility] Last Admin: 02/17/19 22:11 Dose: 0.5 mg Amitriptyline HCl (Elavil) 75 mg PO QHS [facility] Last Admin: 02/17/19 22:11 Dose: 75 mg Aspirin (Ecotrin) 81 mg PO QHS [facility] Last Admin: 02/17/19 22:11 Dose: 81 mg Atorvastatin Calcium (Lipitor) 40 mg PO QHS [facility] Last Admin: 02/17/19 22:11 Dose: 40 mg Baclofen (Lioresal) 20 mg PO QHS [facility] Last Admin: 02/17/19 22:11 Dose: 20 mg Baclofen (Lioresal) 10 mg PO 0600,1400 [facility] Last Admin: 02/18/19 05:45 Dose: 10 mg Bisacodyl (Dulcolax) 10 mg RECTAL DAILY PRN PRN Reason: Constipation Calcitriol (Rocaltrol) 0.25 mcg PO QHS [facility] Last Admin: 02/17/19 22:10 Dose: 0.25 mcg Heparin Sodium (Porcine) (Heparin Na) 5,000 unit SC Q8 [facility] Last Admin: 02/18/19 05:44 Dose: 5,000 unit Hydralazine HCl (Apresoline Iv) 5 mg IV Q4H PRN PRN PRN Reason: HYPERTENSION Last Admin: 02/18/19 02:06 Dose: 5 mg Sodium Chloride () 1,000 mls @ 150 mls/hr IV .Q6H40M [facility] Last Admin: 02/18/19 05:44 Dose: 150 mls/hr Ceftriaxone Sodium 2 gm/ (Sodium Chloride) 50 mls @ 100 mls/hr IV Q24 [facility] Last Admin: 02/18/19 08:17 Dose: 100 mls/hr Lactulose (Chronulac, Cephulac) 20 gm PO BID [facility] Last Admin: 02/18/19 08:12 Dose: 20 gm Loratadine (Claritin) 5 mg PO DAILY [facility] Last Admin: 02/18/19 08:13 Dose: 5 mg Magnesium Oxide (Mag-Ox 400) 400 mg PO QHS [facility] Last Admin: 02/17/19 22:10 Dose: 400 mg Melatonin (Melatonin) 5 mg PO QHS [facility] Last Admin: 02/17/19 22:11 Dose: 5 mg Ondansetron HCl (Zofran) 4 mg IV Q8H PRN PRN PRN Reason: NAUSEA/VOMITING Last Admin: 02/15/19 20:34 Dose: 4 mg Polysaccharide Iron Complex ([facility]rex 150) [facility] Last Admin: 02/18/19 08:13 Dose: 150 mg Promethazine HCl (Phenergan) 6.25 mg IV Q6H PRN PRN PRN Reason: NAUSEA/VOMITING Sodium Chloride () 5 - 15 ml IV UD PRN PRN Reason: SALINE FLUSH Last Admin: 02/17/19 05:44 Dose: 10 ml Medical Necessity - Tobacco Use Smoking Status: Never smoker Assessment/Plan All Active Problems Dehydration (Acute) Constipation (Acute) Vomiting (Acute) Declining functional status (Acute) Complicated urinary tract infection (Resolved) 1. Constipation/nausea and vomiting/UTI with a suprapubic catheter -She has a chronic suprapubic catheter however in discussion with the her symptoms were atypical for her and this could represent symptomatic UTI -She is growing greater than 100,000 Morganella morganii, it is resistant to Ancef and Keflex and she has allergies to Cipro and Zosyn therefore will initiate treatment with Rocephin and she will need to go home on it for a total of 5 days. -She generally is okay after getting a mag citrate dose, multiple bowel movements after mag citrate last night, will continue with her lactulose -CT of her abdomen was unremarkable, and any findings for chronic -Her lipase is close to normal therefore no pancreatitis and can resume p.o. intake, will advance to a soft diet -Per the he would like to consider SNF placement since she still not back to normal and they do not have a Azar lift at home and it apparently will be sometime before they will be able to get one. 2. Chronic MS with chronic right hemiparesis -We will consult PT/OT/speech therapy for evaluation and treatment -The does not think that he needs help at home from any healthcare agency though he would like if possible to have a Azar lift to make transferring at home easier if possible -We will continue her home antispastic medications 3. CKD stage IV -Continue with IV fluids until taking adequate p.o. -On admission creatinine was 1.93 which is around baseline though with IV fluids today improved to 1.62 4. History of TIA/HLD -Stable -Continue with aspirin and statin 5. Possible reflux -She has pain with swallowing and therefore will provide a GI cocktail to see if that helps relieve the pain DVT: Heparin Code Visit OBSV E&M: 40177 Subsequent observation care L2
--- NOTE | 2019-02-18 11:48 | PN_ITS ---
Patient Problems: Active and Suspected Problems Dehydration (Acute) Constipation (Acute) Vomiting (Acute) Declining functional status (Acute) Subjective: She is much more alert today after she was able to get some sleep yesterday. Per the she is much better than she was yesterday and was able to help a little bit in terms of getting to the bedside commode though not as much as she is normally able to. Of note she is complaining of some gastric pain every time she swallows though denies any abdominal pain. Vitals/I&O's: Vital Signs Temp Pulse Resp BP Pulse Ox 98.3 F 80 18 134/75 H 95 02/18/19 08:11 02/18/19 08:11 02/18/19 08:11 02/18/19 08:11 02/18/19 08:11 Oxygen Flow Rate (L/min) 2 Oxygen Delivery Method Room Air Weight: 169 lb 8.568 oz Body Mass Index (BMI) 24.3 Finger Stick Blood Glucose 67 Intake and Output for Last 24 Hours 02/16/19 02/17/19 02/18/19 23:59 23:59 23:59 Intake Total 7268 / 7268 3464 / 3464 3521 / 3521 Output Total 6100 / 6100 3550 / 3550 3600 / 3600 Balance 1168 / 1168 -86 / -86 -79 / -79 General: Alert, Oriented x3, Cooperative, No apparent distress HEENT: Atraumatic, PERRLA, EOMI, Normocephalic Oral: Dry Mucosa Neck: Supple, No JVD Lungs: Clear to auscultation, Normal air movement, No rhonchi, No wheeze, No rales, Diminished Cardiovascular: Regular rate, Regular Rhythm, Normal S1, Normal S2, No murmurs Abdomen: Soft, Non Tender, Non-Distended, No Hepato-splenomegaly Extremities: No edema, Capillary Refill Less than 3 Seconds Skin: No rashes, No breakdown Neurological: Neuro grossly intact, Sensory exam intact to light touch and pain, - - Chronic right hemiparesis Psych/Mental Status: Normal Affect, Appropriate Microbiology Past 72 Hours 02/15/19 12:55 Urine Catheter - Catheter Urine Culture - Final Morganella morganii sp riddhimeri Laboratory Results 02/18/19 06:00: Sodium 141, Potassium 3.5, Chloride 112 H, Carbon Dioxide 29.0, Anion Gap 0 L, BUN 16, Creatinine 1.29 H, Estim Creat Clear Calc 47.64, Est GFR (MDRD) Af Amer 54 L, Est GFR (MDRD) Non-Af 44 L, BUN/Creatinine Ratio 12.4, Glucose 82, Calcium 7.7 L Current Medications Acetaminophen (Tylenol) 650 mg PO Q6H PRN PRN PRN Reason: Mild Pain (1-3)/Temp > 100.7 F Last Admin: 02/18/19 01:54 Dose: 650 mg Alprazolam (Xanax) 0.5 mg PO QHS [facility] Last Admin: 02/17/19 22:11 Dose: 0.5 mg Amitriptyline HCl (Elavil) 75 mg PO QHS [facility] Last Admin: 02/17/19 22:11 Dose: 75 mg Aspirin (Ecotrin) 81 mg PO QHS [facility] Last Admin: 02/17/19 22:11 Dose: 81 mg Atorvastatin Calcium (Lipitor) 40 mg PO QHS [facility] Last Admin: 02/17/19 22:11 Dose: 40 mg Baclofen (Lioresal) 20 mg PO QHS [facility] Last Admin: 02/17/19 22:11 Dose: 20 mg Baclofen (Lioresal) 10 mg PO 0600,1400 [facility] Last Admin: 02/18/19 05:45 Dose: 10 mg Bisacodyl (Dulcolax) 10 mg RECTAL DAILY PRN PRN Reason: Constipation Calcitriol (Rocaltrol) 0.25 mcg PO QHS [facility] Last Admin: 02/17/19 22:10 Dose: 0.25 mcg Heparin Sodium (Porcine) (Heparin Na) 5,000 unit SC Q8 [facility] Last Admin: 02/18/19 05:44 Dose: 5,000 unit Hydralazine HCl (Apresoline Iv) 5 mg IV Q4H PRN PRN PRN Reason: HYPERTENSION Last Admin: 02/18/19 02:06 Dose: 5 mg Sodium Chloride () 1,000 mls @ 150 mls/hr IV .Q6H40M [facility] Last Admin: 02/18/19 05:44 Dose: 150 mls/hr Ceftriaxone Sodium 2 gm/ (Sodium Chloride) 50 mls @ 100 mls/hr IV Q24 [facility] Last Admin: 02/18/19 08:17 Dose: 100 mls/hr Lactulose (Chronulac, Cephulac) 20 gm PO BID [facility] Last Admin: 02/18/19 08:12 Dose: 20 gm Loratadine (Claritin) 5 mg PO DAILY [facility] Last Admin: 02/18/19 08:13 Dose: 5 mg Magnesium Oxide (Mag-Ox 400) 400 mg PO QHS [facility] Last Admin: 02/17/19 22:10 Dose: 400 mg Melatonin (Melatonin) 5 mg PO QHS [facility] Last Admin: 02/17/19 22:11 Dose: 5 mg Ondansetron HCl (Zofran) 4 mg IV Q8H PRN PRN PRN Reason: NAUSEA/VOMITING Last Admin: 02/15/19 20:34 Dose: 4 mg Polysaccharide Iron [facility] ([facility]rex 150) [facility] Last Admin: 02/18/19 08:13 Dose: 150 mg Promethazine HCl (Phenergan) 6.25 mg IV Q6H PRN PRN PRN Reason: NAUSEA/VOMITING Sodium Chloride () 5 - 15 ml IV UD PRN PRN Reason: SALINE FLUSH Last Admin: 02/17/19 05:44 Dose: 10 ml Medical Necessity - Tobacco Use Smoking Status: Never smoker Assessment/Plan All Active Problems Dehydration (Acute) Constipation (Acute) Vomiting (Acute) Declining functional status (Acute) Complicated urinary tract infection (Resolved) 1. Constipation/nausea and vomiting/UTI with a suprapubic catheter -She has a chronic suprapubic catheter however in discussion with the her symptoms were atypical for her and this could represent symptomatic UTI -She is growing greater than 100,000 Morganella morganii, it is resistant to Ancef and Keflex and she has allergies to Cipro and Zosyn therefore will initiate treatment with Rocephin and she will need to go home on it for a total of 5 days. -She generally is okay after getting a mag citrate dose, multiple bowel movements after mag citrate last night, will continue with her lactulose -CT of her abdomen was unremarkable, and any findings for chronic -Her lipase is close to normal therefore no pancreatitis and can resume p.o. intake, will advance to a soft diet -Per the he would like to consider SNF placement since she still not back to normal and they do not have a Azar lift at home and it apparently will be sometime before they will be able to get one. 2. Chronic MS with chronic right hemiparesis -We will consult PT/OT/speech therapy for evaluation and treatment -The does not think that he needs help at home from any healthcare agency though he would like if possible to have a Azar lift to make transferring at home easier if possible -We will continue her home antispastic medications 3. CKD stage IV -Continue with IV fluids until taking adequate p.o. -On admission creatinine was 1.93 which is around baseline though with IV fluids today improved to 1.62 4. History of TIA/HLD -Stable -Continue with aspirin and statin 5. Possible reflux -She has pain with swallowing and therefore will provide a GI cocktail to see if that helps relieve the pain DVT: Heparin Code Visit OBSV E&M: 46650 Subsequent observation care L2
--- NOTE | 2019-02-18 12:45 | CASEMGMT ---
Social Work MS3 Consult: SNF Placement Referral source: SHARLENE LATHAM Summary: Original plan was for patient to return home with , who is a retired RN, to care for patient and to assist with IV antibiotics. Today patient's transfer ability more impaired and both patient and voiced on concerna bout plan to go home. Met with patient and in room. Nakul does most of the talking. Patient smiled and answered questions with head shakes during conversation. reports on a scale of 1-10 patient is usually at at 7-8-9 for transfers. Today rates patient at a 3, which leads to concern about wether patient can return home directly from the hospital. Patient shakes head in agreement. voices much concern for patient, that trying to be patient's advocate and looking after patient to ensure that medical team is addressing patient's needs. voices many compliments about this hospital and the medical staff. After much conversation it was determined that first choice is home as planned. Second choice is [facility]. Third choice if TCU does not have a bed is yet to be determined. Provided patient and with list of SNF's from insurance website. Call to [facility] post acute referral line at [phone] and message left of referral, in case patient is not closer to baseline on Wednesday then SNF placement can start to be worked on. Plan: home versus SNF. Anticipating short term SNF stay and referrals have been initiated to TCU. Social work to follow. -LISBETH Richardson, [employer]ICITING [employer]IGHT AGENT
--- NOTE | 2019-02-18 13:33 | CM.UR ---
I was alerted by Physical therapist earlier that patient's is now asking for SNF placement instead of home d/t wait on boris. Notified DICK Islas at that time. Received call at this time from Zakiya at [facility] asking about discharge plans and going home over weekend. Explained that spouse is now asking for SNF placement instead of home. States she will contact us Wednesday for update if they don't hear from us first. Candelario Gregorio Rn, CCM.
[2019-02-18] MEDS: ALPRAZolam 0.5 MG Tablet PO (21:45)
[2019-02-18] MEDS: Calcitriol 0.25 MCG Capsule PO (21:46)
[2019-02-18] MEDS: Baclofen 10 MG Tablet 20 MG PO (21:46)
[2019-02-18] MEDS: Amitriptyline 25 MG Tablet 75 MG PO (21:46)
[2019-02-18] MEDS: Aspirin E.C. 81 MG Tablet PO (21:46)
[2019-02-18] MEDS: Magnesium Oxide 400 MG Tablet PO (21:46)
[2019-02-18] MEDS: Atorvastatin Calcium 40 MG Tablet PO (21:46)
[2019-02-18] MEDS: MELATONIN 10 MG TABLET 5 MG PO (21:47)
[2019-02-19] VITALS (13 sets, daily range): BP systolic 135–162; BP diastolic 82–93; PULSE 85–98; RESP 18; TEMP 36.3–37.1; O2SAT 92–97
[2019-02-19] MEDS: 0.9% Normal Saline 1,000 ML 150 ML IV ×2 (01:50→08:11)
[2019-02-19] MEDS: Heparin Injection (Vial) 5,000 UNIT/ML VIAL 5000 UNIT SC ×3 (05:26→22:07)
[2019-02-19] MEDS: Baclofen 10 MG Tablet PO ×2 (05:26→14:41)
[2019-02-19] MEDS: Lactulose 20 GM/30 ML UDC PO ×2 (08:10→22:06)
[2019-02-19] MEDS: Iron Polysaccharide Complex 150 MG CAPSULE PO (08:10)
[2019-02-19] MEDS: Loratadine 10 MG Tablet 5 MG PO (08:10)
[2019-02-19] MEDS: hydrALAZINE 20 MG/ML Vial 5 MG IV (08:15)
[2019-02-19] MEDS: Bisacodyl 10 MG Suppository RECTAL (10:22)
--- NOTE | 2019-02-19 10:58 | PCM.PN.HOSP ---
Patient Problems: Active and Suspected Problems Dehydration (Acute) Constipation (Acute) Vomiting (Acute) Declining functional status (Acute) Subjective: Doing well, feels much better today than she did even yesterday. Still has not tried to transfer today to a bedside commode so we will see how strong she is. In talking with her he would still like to wait another day to see how much stronger she can improve before deciding whether or not he takes her home versus going to a snf facility. Of note she did have a single blood pressure greater than 170 and was given a dose of labetalol. She has been running in the 140s up into the 160s periodically. In talking to the this happens whenever she comes into the hospital and then she is normal into the 1 teens when she goes home. Vitals/I&O's: Vital Signs Temp Pulse Resp BP Pulse Ox 97.3 F L 87 18 162/93 H 95 02/19/19 08:08 02/19/19 08:15 02/19/19 08:08 02/19/19 08:08 02/19/19 08:08 Oxygen Flow Rate (L/min) 2 Oxygen Delivery Method Room Air Weight: 169 lb 8.568 oz Body Mass Index (BMI) 24.3 Finger Stick Blood Glucose 67 Intake and Output for Last 24 Hours 02/17/19 02/18/19 02/19/19 23:59 23:59 23:59 Intake Total 3464 / 3464 6355 / 6355 1664 / 1664 Output Total 3550 / 3550 8600 / 8600 2175 / 2175 Balance -86 / -86 -2245 / -2245 -511 / -511 General: Alert, Oriented x3, Cooperative, No apparent distress HEENT: Atraumatic, PERRLA, EOMI, Normocephalic Oral: Dry Mucosa Neck: Supple, No JVD Lungs: Clear to auscultation, Normal air movement, No rhonchi, No wheeze, No rales, Diminished Cardiovascular: Regular rate, Regular Rhythm, Normal S1, Normal S2, No murmurs Abdomen: Soft, Non Tender, Non-Distended, No Hepato-splenomegaly Extremities: No edema, Capillary Refill Less than 3 Seconds Skin: No rashes, No breakdown Neurological: Neuro grossly intact, Sensory exam intact to light touch and pain, - - Chronic right hemiparesis Psych/Mental Status: Normal Affect, Appropriate Microbiology Past 72 Hours 02/15/19 12:55 Urine Catheter - Catheter Urine Culture - Final Morganella morganii sp andrewi Current Medications Acetaminophen (Tylenol) 650 mg PO Q6H PRN PRN PRN Reason: Mild Pain (1-3)/Temp > 100.7 F Last Admin: 02/18/19 13:39 Dose: 650 mg Alprazolam (Xanax) 0.5 mg PO QHS [facility] Last Admin: 02/18/19 21:45 Dose: 0.5 mg Amitriptyline HCl (Elavil) 75 mg PO QHS [facility] Last Admin: 02/18/19 21:46 Dose: 75 mg Aspirin (Ecotrin) 81 mg PO QHS [facility] Last Admin: 02/18/19 21:46 Dose: 81 mg Atorvastatin Calcium (Lipitor) 40 mg PO QHS [facility] Last Admin: 02/18/19 21:46 Dose: 40 mg Baclofen (Lioresal) 20 mg PO QHS [facility] Last Admin: 02/18/19 21:46 Dose: 20 mg Baclofen (Lioresal) 10 mg PO 0600,1400 [facility] Last Admin: 02/19/19 05:26 Dose: 10 mg Bisacodyl (Dulcolax) 10 mg RECTAL DAILY PRN PRN Reason: Constipation Last Admin: 02/19/19 10:22 Dose: 10 mg Calcitriol (Rocaltrol) 0.25 mcg PO QHS [facility] Last Admin: 02/18/19 21:46 Dose: 0.25 mcg Heparin Sodium (Porcine) (Heparin Na) 5,000 unit SC Q8 [facility] Last Admin: 02/19/19 05:26 Dose: 5,000 unit Hydralazine HCl (Apresoline Iv) 5 mg IV Q4H PRN PRN PRN Reason: HYPERTENSION Last Admin: 02/19/19 08:15 Dose: 5 mg Ceftriaxone Sodium 2 gm/ (Sodium Chloride) 50 mls @ 100 mls/hr IV Q24 [facility] Last Admin: 02/19/19 08:10 Dose: 100 mls/hr Sodium Chloride () 1,000 mls @ 100 mls/hr IV .Q10H [facility] Labetalol HCl (Trandate) 10 mg IV Q4H PRN PRN PRN Reason: BLOOD PRESSURE Last Admin: 02/18/19 22:43 Dose: 10 mg Lactulose (Chronulac, Cephulac) 20 gm PO BID [facility] Last Admin: 02/19/19 08:10 Dose: 20 gm Loratadine (Claritin) 5 mg PO DAILY [facility] Last Admin: 02/19/19 08:10 Dose: 5 mg Magnesium Oxide (Mag-Ox 400) 400 mg PO QHS [facility] Last Admin: 02/18/19 21:46 Dose: 400 mg Melatonin (Melatonin) 5 mg PO QHS [facility] Last Admin: 02/18/19 21:47 Dose: 5 mg Ondansetron HCl (Zofran) 4 mg IV Q8H PRN PRN PRN Reason: NAUSEA/VOMITING Last Admin: 02/15/19 20:34 Dose: 4 mg Polysaccharide [facility] ([facility]rex 150) [facility] Last Admin: 02/19/19 08:10 Dose: 150 mg Promethazine HCl (Phenergan) 6.25 mg IV Q6H PRN PRN PRN Reason: NAUSEA/VOMITING Sodium Chloride () 5 - 15 ml IV UD PRN PRN Reason: SALINE FLUSH Last Admin: 02/17/19 05:44 Dose: 10 ml Medical Necessity - Tobacco Use Smoking Status: Never smoker Assessment/Plan All Active Problems Dehydration (Acute) Constipation (Acute) Vomiting (Acute) Declining functional status (Acute) Complicated urinary tract infection (Resolved) 1. Constipation/nausea and vomiting/UTI with a suprapubic catheter -She has a chronic suprapubic catheter however in discussion with the her symptoms were atypical for her and this could represent symptomatic UTI -She is growing greater than 100,000 Morganella morganii, it is resistant to Ancef and Keflex and she has allergies to Cipro and Zosyn therefore will initiate treatment with Rocephin and she will need to go home on it for a total of 5 days. -She generally is okay after getting a mag citrate dose, multiple bowel movements after mag citrate a few nights ago, will continue with her lactulose -CT of her abdomen was unremarkable, and any findings are chronic -Her lipase is close to normal therefore no pancreatitis and can resume p.o. intake, will advance to a soft diet -Per the he would like to consider SNF placement since she still not back to normal and they do not have a Azar lift at home and it apparently will be sometime before they will be able to get one. 2. Chronic MS with chronic right hemiparesis -We will consult PT/OT/speech therapy for evaluation and treatment, will consider possible placement to SNF on Wednesday -The does not think that he needs help at home from any healthcare agency though he would like if possible to have a Azar lift to make transferring at home easier if possible -We will continue her home antispastic medications 3. CKD stage IV -Continue with IV fluids until taking adequate p.o. -On admission creatinine was 1.93 which is around baseline though with IV fluids improved to 1.29 4. History of TIA/HLD -Stable -Continue with aspirin and statin 5. Possible reflux -She has pain with swallowing and therefore will provide a GI cocktail to see if that helps relieve the pain DVT: Heparin Code Visit OBSV E&M: 65365 Subsequent observation care L2
--- NOTE | 2019-02-19 11:04 | PN_ITS ---
Patient Problems: Active and Suspected Problems Dehydration (Acute) Constipation (Acute) Vomiting (Acute) Declining functional status (Acute) Subjective: Doing well, feels much better today than she did even yesterday. Still has not tried to transfer today to a bedside commode so we will see how strong she is. In talking with her he would still like to wait another day to see how much stronger she can improve before deciding whether or not he takes her home versus going to a group home facility. Of note she did have a single blood pressure greater than 170 and was given a dose of labetalol. She has been running in the 140s up into the 160s periodically. In talking to the this happens whenever she comes into the hospital and then she is normal into the 1 teens when she goes home. Vitals/I&O's: Vital Signs Temp Pulse Resp BP Pulse Ox 97.3 F L 87 18 162/93 H 95 02/19/19 08:08 02/19/19 08:15 02/19/19 08:08 02/19/19 08:08 02/19/19 08:08 Oxygen Flow Rate (L/min) 2 Oxygen Delivery Method Room Air Weight: 169 lb 8.568 oz Body Mass Index (BMI) 24.3 Finger Stick Blood Glucose 67 Intake and Output for Last 24 Hours 02/17/19 02/18/19 02/19/19 23:59 23:59 23:59 Intake Total 3464 / 3464 6355 / 6355 1664 / 1664 Output Total 3550 / 3550 8600 / 8600 2175 / 2175 Balance -86 / -86 -2245 / -2245 -511 / -511 General: Alert, Oriented x3, Cooperative, No apparent distress HEENT: Atraumatic, PERRLA, EOMI, Normocephalic Oral: Dry Mucosa Neck: Supple, No JVD Lungs: Clear to auscultation, Normal air movement, No rhonchi, No wheeze, No rales, Diminished Cardiovascular: Regular rate, Regular Rhythm, Normal S1, Normal S2, No murmurs Abdomen: Soft, Non Tender, Non-Distended, No Hepato-splenomegaly Extremities: No edema, Capillary Refill Less than 3 Seconds Skin: No rashes, No breakdown Neurological: Neuro grossly intact, Sensory exam intact to light touch and pain, - - Chronic right hemiparesis Psych/Mental Status: Normal Affect, Appropriate Microbiology Past 72 Hours 02/15/19 12:55 Urine Catheter - Catheter Urine Culture - Final Morganella morganii sp andrewi Current Medications Acetaminophen (Tylenol) 650 mg PO Q6H PRN PRN PRN Reason: Mild Pain (1-3)/Temp > 100.7 F Last Admin: 02/18/19 13:39 Dose: 650 mg Alprazolam (Xanax) 0.5 mg PO QHS [facility] Last Admin: 02/18/19 21:45 Dose: 0.5 mg Amitriptyline HCl (Elavil) 75 mg PO QHS [facility] Last Admin: 02/18/19 21:46 Dose: 75 mg Aspirin (Ecotrin) 81 mg PO QHS [facility] Last Admin: 02/18/19 21:46 Dose: 81 mg Atorvastatin Calcium (Lipitor) 40 mg PO QHS [facility] Last Admin: 02/18/19 21:46 Dose: 40 mg Baclofen (Lioresal) 20 mg PO QHS [facility] Last Admin: 02/18/19 21:46 Dose: 20 mg Baclofen (Lioresal) 10 mg PO 0600,1400 [facility] Last Admin: 02/19/19 05:26 Dose: 10 mg Bisacodyl (Dulcolax) 10 mg RECTAL DAILY PRN PRN Reason: Constipation Last Admin: 02/19/19 10:22 Dose: 10 mg Calcitriol (Rocaltrol) 0.25 mcg PO QHS [facility] Last Admin: 02/18/19 21:46 Dose: 0.25 mcg Heparin Sodium (Porcine) (Heparin Na) 5,000 unit SC Q8 [facility] Last Admin: 02/19/19 05:26 Dose: 5,000 unit Hydralazine HCl (Apresoline Iv) 5 mg IV Q4H PRN PRN PRN Reason: HYPERTENSION Last Admin: 02/19/19 08:15 Dose: 5 mg Ceftriaxone Sodium 2 gm/ (Sodium Chloride) 50 mls @ 100 mls/hr IV Q24 [facility] Last Admin: 02/19/19 08:10 Dose: 100 mls/hr Sodium Chloride () 1,000 mls @ 100 mls/hr IV .Q10H [facility] Labetalol HCl (Trandate) 10 mg IV Q4H PRN PRN PRN Reason: BLOOD PRESSURE Last Admin: 02/18/19 22:43 Dose: 10 mg Lactulose (Chronulac, Cephulac) 20 gm PO BID [facility] Last Admin: 02/19/19 08:10 Dose: 20 gm Loratadine (Claritin) 5 mg PO DAILY [facility] Last Admin: 02/19/19 08:10 Dose: 5 mg Magnesium Oxide (Mag-Ox 400) 400 mg PO QHS [facility] Last Admin: 02/18/19 21:46 Dose: 400 mg Melatonin (Melatonin) 5 mg PO QHS [facility] Last Admin: 02/18/19 21:47 Dose: 5 mg Ondansetron HCl (Zofran) 4 mg IV Q8H PRN PRN PRN Reason: NAUSEA/VOMITING Last Admin: 02/15/19 20:34 Dose: 4 mg Polysaccharide Iron Complex ([facility]rex 150) [facility] Last Admin: 02/19/19 08:10 Dose: 150 mg Promethazine HCl (Phenergan) 6.25 mg IV Q6H PRN PRN PRN Reason: NAUSEA/VOMITING Sodium Chloride () 5 - 15 ml IV UD PRN PRN Reason: SALINE FLUSH Last Admin: 02/17/19 05:44 Dose: 10 ml Medical Necessity - Tobacco Use Smoking Status: Never smoker Assessment/Plan All Active Problems Dehydration (Acute) Constipation (Acute) Vomiting (Acute) Declining functional status (Acute) Complicated urinary tract infection (Resolved) 1. Constipation/nausea and vomiting/UTI with a suprapubic catheter -She has a chronic suprapubic catheter however in discussion with the her symptoms were atypical for her and this could represent symptomatic UTI -She is growing greater than 100,000 Morganella morganii, it is resistant to Ancef and Keflex and she has allergies to Cipro and Zosyn therefore will initiate treatment with Rocephin and she will need to go home on it for a total of 5 days. -She generally is okay after getting a mag citrate dose, multiple bowel movements after mag citrate a few nights ago, will continue with her lactulose -CT of her abdomen was unremarkable, and any findings are chronic -Her lipase is close to normal therefore no pancreatitis and can resume p.o. intake, will advance to a soft diet -Per the he would like to consider SNF placement since she still not back to normal and they do not have a Azar lift at home and it apparently will be sometime before they will be able to get one. 2. Chronic MS with chronic right hemiparesis -We will consult PT/OT/speech therapy for evaluation and treatment, will consider possible placement to SNF on Wednesday -The does not think that he needs help at home from any healthcare agency though he would like if possible to have a Azar lift to make transferring at home easier if possible -We will continue her home antispastic medications 3. CKD stage IV -Continue with IV fluids until taking adequate p.o. -On admission creatinine was 1.93 which is around baseline though with IV fluids improved to 1.29 4. History of TIA/HLD -Stable -Continue with aspirin and statin 5. Possible reflux -She has pain with swallowing and therefore will provide a GI cocktail to see if that helps relieve the pain DVT: Heparin Code Visit OBSV E&M: 53365 Subsequent observation care L2
[2019-02-19] MEDS: Acetaminophen 325 MG Tablet 650 MG PO (15:51)
[2019-02-19] MEDS: 0.9% Normal Saline 1,000 ML 100 ML IV (17:39)
[2019-02-19] MEDS: ALPRAZolam 0.5 MG Tablet PO (22:06)
[2019-02-19] MEDS: Amitriptyline 25 MG Tablet 75 MG PO (22:07)
[2019-02-19] MEDS: Aspirin E.C. 81 MG Tablet PO (22:07)
[2019-02-19] MEDS: Baclofen 10 MG Tablet 20 MG PO (22:07)
[2019-02-19] MEDS: Calcitriol 0.25 MCG Capsule PO (22:07)
[2019-02-19] MEDS: Atorvastatin Calcium 40 MG Tablet PO (22:07)
[2019-02-19] MEDS: Magnesium Oxide 400 MG Tablet PO (22:07)
[2019-02-19] MEDS: MELATONIN 10 MG TABLET 5 MG PO (22:21)
[2019-02-20] VITALS (12 sets, daily range): BP systolic 144–160; BP diastolic 80–99; PULSE 86–103; RESP 18–20; TEMP 36.4–37.7; O2SAT 92–97
[2019-02-20] MEDS: 0.9% Normal Saline 1,000 ML 100 ML IV ×2 (04:00→14:53)
[2019-02-20] MEDS: 0.9% NaCl Peripheral Flush Adult/Peds IV ×2 (05:41→05:42)
[2019-02-20] MEDS: Heparin Injection (Vial) 5,000 UNIT/ML VIAL 5000 UNIT SC ×3 (05:41→20:27)
[2019-02-20] MEDS: Baclofen 10 MG Tablet PO ×2 (05:41→13:43)
[2019-02-20 06:27] LABS: Anion Gap 6 (5-15); BUN 18 mg/dL (7-18); BUN/Creat Ratio 10.3 RATIO (10-20); Calcium,Total 8.7 mg/dL (8.5-10.1); Chloride 116 mmol/L (98-107); Creatinine, Serum 1.75 mg/dL (0.55-1.02); EST Glomerular Filtration Rate 31 mL/min (>60); Est Glom Filt Rate - Afr Amer 38 mL/min (>60); Estimated Creatinine Clearance 35.12 ml/min; Glucose 91 mg/dL (74-106); Potassium 3.7 mmol/L (3.5-5.1); Sodium Level 146 mmol/L (136-145)
[2019-02-20] MEDS: Lactulose 20 GM/30 ML UDC PO ×2 (07:38→20:25)
[2019-02-20] MEDS: Iron Polysaccharide Complex 150 MG CAPSULE PO (07:38)
[2019-02-20] MEDS: Loratadine 10 MG Tablet 5 MG PO (07:38)
--- NOTE | 2019-02-20 09:28 | CASEMGMT ---
Addendum entered by Kelsie Armendariz 02/20/19 10:55: DICK received call from Lynsey with TCU stating she is able to accept pt. Pt will need prior level of care authorization from [employer] before pre-cert can be initiated. Lynsey states understanding, is agreeable to LOC being submitted. DICK faxed referral to [employer] and placed a call to [facility] to provide referral for LOC. Original Note: Social Work Note RN NOA Kruse and this worker spoke with pt's Mota to confirm discharge plans. Nakul states first preference is for pt to return home if pt is able to transfer and perks up and then states second choice is TCU if needed. Nakul agreeable to pre-cert being initiated for TCU in the event that pt is unable to return home at discharge. DICK placed a call to Gisela in TCU, left message asking if Gisela is able to accept pt and if so to submit for pre-cert. DICK waiting for call back from Gisela in [facility]CU. Plan: Home vs. TCU pending acceptance and pre-cert Kelsie Armendariz OVERHEAD LINE WORKER, RESOURCE DEVELOPMENT MANAGER
--- NOTE | 2019-02-20 10:53 | PCM.PN.HOSP ---
Patient Problems: Active and Suspected Problems Dehydration (Acute) Constipation (Acute) Vomiting (Acute) Declining functional status (Acute) Subjective: Patient is a 64-year-old lady with history of multiple sclerosis with significant debility brought to the emergency department by her with generalized weakness and constipation. Patient was in addition found to have acute cystitis admitted to regular nursing floor for further management Objective: General: Patient seen and appears ill looking Eyes: Anicteric NECK; supple, normal thyroid, RESPIRATORY: Diminished to auscultation bilaterally, CARDIOVASCULAR: Regular S1 S2, GI: soft, non-tender, normoactive bowel sounds, : No Renal angle tenderness; EXTREMITIES: No edema, no clubbing, MUSCULOSKELTAL: No Joint Tenderness; NEURO: Awake; no lateralizing signs. SKIN: No Rash PSYCH; Normal affect Vitals/I&O's: Vital Signs Temp Pulse Resp BP Pulse Ox 97.5 F L 97 20 H 144/80 H 94 02/20/19 07:33 02/20/19 07:33 02/20/19 07:33 02/20/19 07:33 02/20/19 07:33 Oxygen Flow Rate (L/min) 2 Oxygen Delivery Method Room Air Weight: 76.9 kg Body Mass Index (BMI) 24.3 Finger Stick Blood Glucose 67 Intake and Output for Last 24 Hours 02/18/19 02/19/19 02/20/19 23:59 23:59 23:59 Intake Total 6355 / 6355 4809 / 4809 1088 / 1088 Output Total 8600 / 8600 4025 / 4025 1000 / 1000 Balance -2245 / -2245 784 / 784 88 / 88 Microbiology Past 72 Hours 02/15/19 12:55 Urine Catheter - Catheter Urine Culture - Final Morganella morganii sp andrewi Laboratory Results 02/20/19 06:00: Sodium 146 H, Potassium 3.7, Chloride 116 H, Carbon Dioxide 24.0, Anion Gap 6, BUN 18, Creatinine 1.75 H, Estim Creat Clear Calc 35.12, Est GFR (MDRD) Af Amer 38 L, Est GFR (MDRD) Non-Af 31 L, BUN/Creatinine Ratio 10.3, Glucose 91, Calcium 8.7 Current Medications Acetaminophen (Tylenol) 650 mg PO Q6H PRN PRN PRN Reason: Mild Pain (1-3)/Temp > 100.7 F Last Admin: 02/19/19 15:51 Dose: 650 mg Alprazolam (Xanax) 0.5 mg PO QHS [facility] Last Admin: 02/19/19 22:06 Dose: 0.5 mg Amitriptyline HCl (Elavil) 75 mg PO QHS [facility] Last Admin: 02/19/19 22:07 Dose: 75 mg Aspirin (Ecotrin) 81 mg PO QHS [facility] Last Admin: 02/19/19 22:07 Dose: 81 mg Atorvastatin Calcium (Lipitor) 40 mg PO QHS [facility] Last Admin: 02/19/19 22:07 Dose: 40 mg Baclofen (Lioresal) 20 mg PO QHS [facility] Last Admin: 02/19/19 22:07 Dose: 20 mg Baclofen (Lioresal) 10 mg PO 0600,1400 [facility] Last Admin: 02/20/19 05:41 Dose: 10 mg Bisacodyl (Dulcolax) 10 mg RECTAL DAILY PRN PRN Reason: Constipation Last Admin: 02/19/19 10:22 Dose: 10 mg Calcitriol (Rocaltrol) 0.25 mcg PO QHS [facility] Last Admin: 02/19/19 22:07 Dose: 0.25 mcg Heparin Sodium (Porcine) (Heparin Na) 5,000 unit SC Q8 [facility] Last Admin: 02/20/19 05:41 Dose: 5,000 unit Hydralazine HCl (Apresoline Iv) 5 mg IV Q4H PRN PRN PRN Reason: HYPERTENSION Last Admin: 02/19/19 08:15 Dose: 5 mg Sodium Chloride () 1,000 mls @ 100 mls/hr IV .Q10H [facility] Last Admin: 02/20/19 04:00 Dose: 100 mls/hr Cefepime HCl 1 gm/ Sodium (Chloride) 50 mls @ 100 mls/hr IV Q12 [facility] Last Admin: 02/20/19 10:23 Dose: 100 mls/hr Labetalol HCl (Trandate) 10 mg IV Q4H PRN PRN PRN Reason: BLOOD PRESSURE Last Admin: 02/18/19 22:43 Dose: 10 mg Lactulose (Chronulac, Cephulac) 20 gm PO BID [facility] Last Admin: 02/20/19 07:38 Dose: 20 gm Loratadine (Claritin) 5 mg PO DAILY [facility] Last Admin: 02/20/19 07:38 Dose: 5 mg Magnesium Oxide (Mag-Ox 400) 400 mg PO QHS [facility] Last Admin: 02/19/19 22:07 Dose: 400 mg Melatonin (Melatonin) 5 mg PO QHS [facility] Last Admin: 02/19/19 22:21 Dose: 5 mg Ondansetron HCl (Zofran) 4 mg IV Q8H PRN PRN PRN Reason: NAUSEA/VOMITING Last Admin: 02/15/19 20:34 Dose: 4 mg Polysaccharide Iron Complex ([facility]rex 150) [facility] Last Admin: 02/20/19 07:38 Dose: 150 mg Promethazine HCl (Phenergan) 6.25 mg IV Q6H PRN PRN PRN Reason: NAUSEA/VOMITING Sodium Chloride () 5 - 15 ml IV UD PRN PRN Reason: SALINE FLUSH Last Admin: 02/20/19 05:42 Dose: 15 ml Medical Necessity - Tobacco Use Smoking Status: Never smoker Assessment/Plan All Active Problems Dehydration (Acute) Constipation (Acute) Vomiting (Acute) Declining functional status (Acute) Complicated urinary tract infection (Resolved) Patient is a 64-year-old lady with history of multiple sclerosis with significant debility brought to the emergency department by her with generalized weakness and constipation. Patient was in addition found to have acute cystitis admitted to regular nursing floor for further management 1. Constipation treated symptomatically with bowel regimen 2. Acute cystitis with Morganella morganii sp andrewi has underlying history of recurrent UTIs currently on currently on cefepime with consultation placed to infectious disease 3. Dyslipidemia-patient is on statin therapy, continued at home dose 4. Multiple sclerosis with significant debility patient is on baclofen patient is also on Zanaflex at home held 5. Chronic kidney disease baseline creatinine 2.0,; kidney function at baseline 6. DVT prophylaxis SC heparin Active Medications Acetaminophen (Tylenol) 650 mg PO Q6H PRN PRN PRN Reason: Mild Pain (1-3)/Temp > 100.7 F Last Admin: 02/19/19 15:51 Dose: 650 mg Alprazolam (Xanax) 0.5 mg PO QHS [facility] Last Admin: 02/19/19 22:06 Dose: 0.5 mg Amitriptyline HCl (Elavil) 75 mg PO QHS [facility] Last Admin: 02/19/19 22:07 Dose: 75 mg Aspirin (Ecotrin) 81 mg PO QHS [facility] Last Admin: 02/19/19 22:07 Dose: 81 mg Atorvastatin Calcium (Lipitor) 40 mg PO QHS [facility] Last Admin: 02/19/19 22:07 Dose: 40 mg Baclofen (Lioresal) 20 mg PO QHS [facility] Last Admin: 02/19/19 22:07 Dose: 20 mg Baclofen (Lioresal) 10 mg PO 0600,1400 [facility] Last Admin: 02/20/19 05:41 Dose: 10 mg Bisacodyl (Dulcolax) 10 mg RECTAL DAILY PRN PRN Reason: Constipation Last Admin: 02/19/19 10:22 Dose: 10 mg Calcitriol (Rocaltrol) 0.25 mcg PO QHS [facility] Last Admin: 02/19/19 22:07 Dose: 0.25 mcg Heparin Sodium (Porcine) (Heparin Na) 5,000 unit SC Q8 [facility] Last Admin: 02/20/19 05:41 Dose: 5,000 unit Hydralazine HCl (Apresoline Iv) 5 mg IV Q4H PRN PRN PRN Reason: HYPERTENSION Last Admin: 02/19/19 08:15 Dose: 5 mg Sodium Chloride () 1,000 mls @ 100 mls/hr IV .Q10H [facility] Last Admin: 02/20/19 04:00 Dose: 100 mls/hr Cefepime HCl 1 gm/ Sodium (Chloride) 50 mls @ 100 mls/hr IV Q12 [facility] Last Admin: 02/20/19 10:23 Dose: 100 mls/hr Labetalol HCl (Trandate) 10 mg IV Q4H PRN PRN PRN Reason: BLOOD PRESSURE Last Admin: 02/18/19 22:43 Dose: 10 mg Lactulose (Chronulac, Cephulac) 20 gm PO BID [facility] Last Admin: 02/20/19 07:38 Dose: 20 gm Loratadine (Claritin) 5 mg PO DAILY [facility] Last Admin: 02/20/19 07:38 Dose: 5 mg Magnesium Oxide (Mag-Ox 400) 400 mg PO QHS [facility] Last Admin: 02/19/19 22:07 Dose: 400 mg Melatonin (Melatonin) 5 mg PO QHS [facility] Last Admin: 02/19/19 22:21 Dose: 5 mg Ondansetron HCl (Zofran) 4 mg IV Q8H PRN PRN PRN Reason: NAUSEA/VOMITING Last Admin: 02/15/19 20:34 Dose: 4 mg Polysaccharide Iron Complex (Ferrex 150) 150 mg PO [facility] Last Admin: 02/20/19 07:38 Dose: 150 mg Promethazine HCl (Phenergan) 6.25 mg IV Q6H PRN PRN PRN Reason: NAUSEA/VOMITING Sodium Chloride () 5 - 15 ml IV UD PRN PRN Reason: SALINE FLUSH Last Admin: 02/20/19 05:42 Dose: 15 ml Microbiology 02/15/19 12:55 Urine Catheter - Catheter Urine Culture - Final Morganella morganii sp riddhimeri Clinical Impression(s) from Imaging Studies Abdomen/Pelvis CT 02/15/19 09:37 IMPRESSION: Dilated stomach, dilated 2nd portion of duodenum associated with 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 Chronic. Similar features seen on prior imaging. Suspected constipation. No other definitive acute abdominopelvic process is evident. A short segment of wall thickening of the rectosigmoid junction appears to be stable compared to prior imaging of 2017. Malignancy is considered unlikely. Close clinical correlation is recommended. Colonoscopy is recommended. Prominently elevated right hemidiaphragm, chronic, associated with dense medial lung base atelectasis. Coronary atherosclerosis. Electronically Signed: Bill English MD at 13:33 EDT Tel , Service support , KUB X-Ray 02/16/19 05:55 IMPRESSION: Marked elevation of the right hemidiaphragm. Gaseous distention of the stomach. Gas and fecal material are seen in the colon. Electronically Signed: Luís Hines, at 8:28 EDT , Service support , Code Visit Inpatient E&M: 33880 Subs Hosp L2
--- NOTE | 2019-02-20 10:59 | PN_ITS ---
Patient Problems: Active and Suspected Problems Dehydration (Acute) Constipation (Acute) Vomiting (Acute) Declining functional status (Acute) Subjective: Patient is a 64-year-old lady with history of multiple sclerosis with significant debility brought to the emergency department by her with generalized weakness and constipation. Patient was in addition found to have acute cystitis admitted to regular nursing floor for further management Objective: General: Patient seen and appears ill looking Eyes: Anicteric NECK; supple, normal thyroid, RESPIRATORY: Diminished to auscultation bilaterally, CARDIOVASCULAR: Regular S1 S2, GI: soft, non-tender, normoactive bowel sounds, : No Renal angle tenderness; EXTREMITIES: No edema, no clubbing, MUSCULOSKELTAL: No Joint Tenderness; NEURO: Awake; no lateralizing signs. SKIN: No Rash PSYCH; Normal affect Vitals/I&O's: Vital Signs Temp Pulse Resp BP Pulse Ox 97.5 F L 97 20 H 144/80 H 94 02/20/19 07:33 02/20/19 07:33 02/20/19 07:33 02/20/19 07:33 02/20/19 07:33 Oxygen Flow Rate (L/min) 2 Oxygen Delivery Method Room Air Weight: 76.9 kg Body Mass Index (BMI) 24.3 Finger Stick Blood Glucose 67 Intake and Output for Last 24 Hours 02/18/19 02/19/19 02/20/19 23:59 23:59 23:59 Intake Total 6355 / 6355 4809 / 4809 1088 / 1088 Output Total 8600 / 8600 4025 / 4025 1000 / 1000 Balance -2245 / -2245 784 / 784 88 / 88 Microbiology Past 72 Hours 02/15/19 12:55 Urine Catheter - Catheter Urine Culture - Final Morganella morganii sp andrewi Laboratory Results 02/20/19 06:00: Sodium 146 H, Potassium 3.7, Chloride 116 H, Carbon Dioxide 24.0, Anion Gap 6, BUN 18, Creatinine 1.75 H, Estim Creat Clear Calc 35.12, Est GFR (MDRD) Af Amer 38 L, Est GFR (MDRD) Non-Af 31 L, BUN/Creatinine Ratio 10.3, Glucose 91, Calcium 8.7 Current Medications Acetaminophen (Tylenol) 650 mg PO Q6H PRN PRN PRN Reason: Mild Pain (1-3)/Temp > 100.7 F Last Admin: 02/19/19 15:51 Dose: 650 mg Alprazolam (Xanax) 0.5 mg PO QHS [facility] Last Admin: 02/19/19 22:06 Dose: 0.5 mg Amitriptyline HCl (Elavil) 75 mg PO QHS [facility] Last Admin: 02/19/19 22:07 Dose: 75 mg Aspirin (Ecotrin) 81 mg PO QHS [facility] Last Admin: 02/19/19 22:07 Dose: 81 mg Atorvastatin Calcium (Lipitor) 40 mg PO QHS [facility] Last Admin: 02/19/19 22:07 Dose: 40 mg Baclofen (Lioresal) 20 mg PO QHS [facility] Last Admin: 02/19/19 22:07 Dose: 20 mg Baclofen (Lioresal) 10 mg PO 0600,1400 [facility] Last Admin: 02/20/19 05:41 Dose: 10 mg Bisacodyl (Dulcolax) 10 mg RECTAL DAILY PRN PRN Reason: Constipation Last Admin: 02/19/19 10:22 Dose: 10 mg Calcitriol (Rocaltrol) 0.25 mcg PO QHS [facility] Last Admin: 02/19/19 22:07 Dose: 0.25 mcg Heparin Sodium (Porcine) (Heparin Na) 5,000 unit SC Q8 [facility] Last Admin: 02/20/19 05:41 Dose: 5,000 unit Hydralazine HCl (Apresoline Iv) 5 mg IV Q4H PRN PRN PRN Reason: HYPERTENSION Last Admin: 02/19/19 08:15 Dose: 5 mg Sodium Chloride () 1,000 mls @ 100 mls/hr IV .Q10H [facility] Last Admin: 02/20/19 04:00 Dose: 100 mls/hr Cefepime HCl 1 gm/ Sodium (Chloride) 50 mls @ 100 mls/hr IV Q12 [facility] Last Admin: 02/20/19 10:23 Dose: 100 mls/hr Labetalol HCl (Trandate) 10 mg IV Q4H PRN PRN PRN Reason: BLOOD PRESSURE Last Admin: 02/18/19 22:43 Dose: 10 mg Lactulose (Chronulac, Cephulac) 20 gm PO BID [facility] Last Admin: 02/20/19 07:38 Dose: 20 gm Loratadine (Claritin) 5 mg PO DAILY [facility] Last Admin: 02/20/19 07:38 Dose: 5 mg Magnesium Oxide (Mag-Ox 400) 400 mg PO QHS [facility] Last Admin: 02/19/19 22:07 Dose: 400 mg Melatonin (Melatonin) 5 mg PO QHS [facility] Last Admin: 02/19/19 22:21 Dose: 5 mg Ondansetron HCl (Zofran) 4 mg IV Q8H PRN PRN PRN Reason: NAUSEA/VOMITING Last Admin: 02/15/19 20:34 Dose: 4 mg Polysaccharide Iron [facility] (Ferrex 150) [facility] Last Admin: 02/20/19 07:38 Dose: 150 mg Promethazine HCl (Phenergan) 6.25 mg IV Q6H PRN PRN PRN Reason: NAUSEA/VOMITING Sodium Chloride () 5 - 15 ml IV UD PRN PRN Reason: SALINE FLUSH Last Admin: 02/20/19 05:42 Dose: 15 ml Medical Necessity - Tobacco Use Smoking Status: Never smoker Assessment/Plan All Active Problems Dehydration (Acute) Constipation (Acute) Vomiting (Acute) Declining functional status (Acute) Complicated urinary tract infection (Resolved) Patient is a 64-year-old lady with history of multiple sclerosis with signifi cant debility brought to the emergency department by her with generalized weakness and constipation. Patient was in addition found to have acute cystitis admitted to regular nursing floor for further management 1. Constipation treated symptomatically with bowel regimen 2. Acute cystitis with Morganella morganii sp andrewi has underlying history of recurrent UTIs currently on currently on cefepime with consultation placed to infectious disease 3. Dyslipidemia-patient is on statin therapy, continued at home dose 4. Multiple sclerosis with significant debility patient is on baclofen patient is also on Zanaflex at home held 5. Chronic kidney disease baseline creatinine 2.0,; kidney function at baseline 6. DVT prophylaxis SC heparin Active Medications Acetaminophen (Tylenol) 650 mg PO Q6H PRN PRN PRN Reason: Mild Pain (1-3)/Temp > 100.7 F Last Admin: 02/19/19 15:51 Dose: 650 mg Alprazolam (Xanax) 0.5 mg PO QHS [facility] Last Admin: 02/19/19 22:06 Dose: 0.5 mg Amitriptyline HCl (Elavil) 75 mg PO QHS [facility] Last Admin: 02/19/19 22:07 Dose: 75 mg Aspirin (Ecotrin) 81 mg PO QHS [facility] Last Admin: 02/19/19 22:07 Dose: 81 mg Atorvastatin Calcium (Lipitor) 40 mg PO QHS [facility] Last Admin: 02/19/19 22:07 Dose: 40 mg Baclofen (Lioresal) 20 mg PO QHS [facility] Last Admin: 02/19/19 22:07 Dose: 20 mg Baclofen (Lioresal) 10 mg PO 0600,1400 [facility] Last Admin: 02/20/19 05:41 Dose: 10 mg Bisacodyl (Dulcolax) 10 mg RECTAL DAILY PRN PRN Reason: Constipation Last Admin: 02/19/19 10:22 Dose: 10 mg Calcitriol (Rocaltrol) 0.25 mcg PO QHS [facility] Last Admin: 02/19/19 22:07 Dose: 0.25 mcg Heparin Sodium (Porcine) (Heparin Na) 5,000 unit SC Q8 [facility] Last Admin: 02/20/19 05:41 Dose: 5,000 unit Hydralazine HCl (Apresoline Iv) 5 mg IV Q4H PRN PRN PRN Reason: HYPERTENSION Last Admin: 02/19/19 08:15 Dose: 5 mg Sodium Chloride () 1,000 mls @ 100 mls/hr IV .Q10H [facility] Last Admin: 02/20/19 04:00 Dose: 100 mls/hr Cefepime HCl 1 gm/ Sodium (Chloride) 50 mls @ 100 mls/hr IV Q12 [facility] Last Admin: 02/20/19 10:23 Dose: 100 mls/hr Labetalol HCl (Trandate) 10 mg IV Q4H PRN PRN PRN Reason: BLOOD PRESSURE Last Admin: 02/18/19 22:43 Dose: 10 mg Lactulose (Chronulac, Cephulac) 20 gm PO BID [facility] Last Admin: 02/20/19 07:38 Dose: 20 gm Loratadine (Claritin) 5 mg PO DAILY [facility] Last Admin: 02/20/19 07:38 Dose: 5 mg Magnesium Oxide (Mag-Ox 400) 400 mg PO QHS [facility] Last Admin: 02/19/19 22:07 Dose: 400 mg Melatonin (Melatonin) 5 mg PO QHS [facility] Last Admin: 02/19/19 22:21 Dose: 5 mg Ondansetron HCl (Zofran) 4 mg IV Q8H PRN PRN PRN Reason: NAUSEA/VOMITING Last Admin: 02/15/19 20:34 Dose: 4 mg Polysaccharide Iron Complex (Ferrex 150) 150 mg PO DAILYCM [facility] Last Admin: 02/20/19 07:38 Dose: 150 mg Promethazine HCl (Phenergan) 6.25 mg IV Q6H PRN PRN PRN Reason: NAUSEA/VOMITING Sodium Chloride () 5 - 15 ml IV UD PRN PRN Reason: SALINE FLUSH Last Admin: 02/20/19 05:42 Dose: 15 ml Microbiology 02/15/19 12:55 Urine Catheter - Catheter Urine Culture - Final Morganella morganii sp andrewi Clinical Impression(s) from Imaging Studies Abdomen/Pelvis CT 02/15/19 09:37 IMPRESSION: Dilated stomach, dilated 2nd portion of duodenum associated with 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 Chronic. Similar features seen on prior imaging. Suspected constipation. No other definitive acute abdominopelvic process is evident. A short segment of wall thickening of the rectosigmoid junction appears to be stable compared to prior imaging of 2017. Malignancy is considered unlikely. Close clinical correlation is recommended. Colonoscopy is recommended. Prominently elevated right hemidiaphragm, chronic, associated with dense medial lung base atelectasis. Coronary atherosclerosis. Electronically Signed: Bill English MD at 13:33 EDT Tel , Service support , KUB X-Ray 02/16/19 05:55 IMPRESSION: Marked elevation of the right hemidiaphragm. Gaseous distention of the stomach. Gas and fecal material are seen in the colon. Electronically Signed: Luís Hines, at 8:28 EDT , Service support , Code Visit Inpatient E&M: 18870 Subs Hosp L2
--- NOTE | 2019-02-20 14:36 | CASEMGMT ---
Addendum entered by Kelsie Armendariz 02/20/19 15:33: SW placed a call to Lynsey with TCU, left message informing her that insurance doesn't agree with pt going to SNF and to take pt off TCU list. Original Note: Addendum entered by Kelsie Armendariz 02/20/19 15:27: Fadumo Willams Number [phone]. Original Note: Addendum entered by Kelsie Armendariz 02/20/19 15:26: SW received message from Fadumo Willams at [facility] stating case was sent to physician review and physician denies SNF placement for pt. Physician states that pt is at baseline and that pt requires lower level of care such as outpatient therapy or terminal carman care. Original Note: Social Work Note SW received message from Fadumo Willams at [facility] stating pt is at baseline and doesn't agree with SNF placement. DICK spoke with Gisela in TCU, Gisela states to have this worker call MMO as TCU can't even submit for pre-cert as MMO doesn't agree with LOC. DICK placed a call back to Natalie with MMO. Per Fadumo Willams she can submit the case to physician to review but states that physician will likely not agree with SNF placement and then there will be an option to do a peer to peer but then the peer to peer will need to be scheduled and that could take a few days. Natalie confirms that TCU can't submit for pre-cert as MMO doesn't agree with SNF placement. Fadumo Willams states that since pt is observation, LOC was not needing and that TCU could've submitted for pre-cert without LOC. Plan: Fadumo Willams at [facility] to submit case to physician for review. Per Fadumo Willams, physician will likely not agree with SNF either as again pt is at baseline. TCU pending physician review. Kelsie Armendariz PIGMENT FURNACE TENDER, LEAD LAYING AND GLUING MACHINE OPERATOR
--- NOTE | 2019-02-20 19:37 | NURSING ---
Went into room to introduce myself along with Fadumo SU from day shift. told me he was a neuro nurse and that turning the pt was unnecessary. I told him that we would want to turn her at some point and he said in all his years here at [facility] he has never encountered this type of situation. He wants to talk to the chargemaster analyst and the nursing ground wood supervisor and may take pt home tonight. States that turning the patient is unnecessary. Clive SU aware. Fadumo SU witnessed conversation.
--- NOTE | 2019-02-20 19:45 | NURSING ---
This RN notified by rounding RN's at shift change that patient's , Siva, would like to speak with photograph inspector. Went to meet with Siva, and he appeared upset that rounding cook night RN stated she would feel obligated to check, change and reposition patient during night. Stated that Ching needs sleep more than anything right now. He gave this RN two options: either provide patient with another nurse tonjessie that could meet their wishes or he was going to sign her out AMA so that she could go home and sleep without interruptions. Siva informed this RN that he and are both retired RN's and he feels turning/waking patient despite their request to not be bothered is a form of battery. Stated if he returns in the morning and finds out that she in fact was awakened during the night he would come in pissed off and be complaining to every single person of authority that he could find: supervisor cell efficiency, managers, DON, and physicians. This RN went out to desk and had Lynsey and Susanna switch patients. Susanna and this RN went into patient's room and met with Siva and Ching. Siva reiterated his wishes for Ching overnight, so that Susanna could hear them. We all ended up agreeing on a plan that Susanna could assess patient now and give her HS meds. After this point, patient and request absolutely no interruptions through the night, until morning meds are due. Ching agreed that she would call out if she were to have a bowel movement, as she is able to tell when she is incontinent of stool. Siva appeared satisfied with this plan and left the unit for the night. This RN helped turn patient so Susanna could assess skin and listen to posterior lungs. Suprapubic catheter bag then emptied for the night.
[2019-02-20] MEDS: MELATONIN 10 MG TABLET PO (20:26)
[2019-02-20] MEDS: ALPRAZolam 0.5 MG Tablet PO (20:26)
[2019-02-20] MEDS: Calcitriol 0.25 MCG Capsule PO (20:26)
[2019-02-20] MEDS: Atorvastatin Calcium 40 MG Tablet PO (20:27)
[2019-02-20] MEDS: Baclofen 10 MG Tablet 20 MG PO (20:27)
[2019-02-20] MEDS: Magnesium Oxide 400 MG Tablet PO (20:27)
[2019-02-20] MEDS: Aspirin E.C. 81 MG Tablet PO (20:27)
[2019-02-20] MEDS: Amitriptyline 25 MG Tablet 75 MG PO (20:28)
--- NOTE | 2019-02-20 20:28 | PCM.HP.ID ---
Problem List (1) Complicated urinary tract infection Status: Resolved Comment: Chronic suprapubic catheter. Reason for Consult: uti Consulted by: Dr. Sam History of Present Illness: The patient is a 64 year old F with MS, presented with nausea, not feeling well, decreased mental status, fatigue, abd pain. Ucx with recurrent morganella. Started on ceftriaxone, some improvement per . No fever here. Full ROS limited by mental status. - Medical History Past Medical History (Chronic Problems): Chronic Problems Hydronephrosis (Chronic) Bilateral. Vitamin D deficiency (Chronic) Muscle spasm (Chronic) OAB (overactive bladder) (Chronic) Allergic rhinitis (Chronic) Insomnia (Chronic) Hyperlipidemia (Chronic) CKD (chronic kidney disease) stage 4, GFR 15-29 ml/min (Chronic) Transient ischemic attack (Chronic) Multiple sclerosis (Chronic) Right hemiparesis (Chronic) Migraine headache (Chronic) Allergies/Adverse Reactions: Allergies ciprofloxacin [From Cipro] Adverse Reaction (Verified 02/15/19 09:21) hypotension interacts w/ zanaflex and baclofen doxycycline Adverse Reaction (Verified 02/15/19 09:21) hypotension interacts w/ zanaflex and baclofen levofloxacin [From Levaquin] Adverse Reaction (Verified 02/15/19 09:21) hypotension interacts w/ zanaflex and baclofen morphine Adverse Reaction (Verified 02/15/19 09:21) hallucinations piperacillin [From Zosyn] Adverse Reaction (Verified 02/15/19 09:21) hypotension interacts w/ zanaflex and baclofen sulfamethoxazole [From Bactrim] Adverse Reaction (Verified 02/15/19 09:21) hypotension interacts w/ zanaflex and baclofen tazobactam [From Zosyn] Adverse Reaction (Verified 02/15/19 09:21) hypotension interacts w/ zanaflex and baclofen trimethoprim [From Bactrim] Adverse Reaction (Verified 02/15/19 09:21) hypotension interacts w/ zanaflex and baclofen vancomycin Adverse Reaction (Verified 02/15/19 09:21) developed toxic levels Home Medications: Ambulatory Orders Medication Instructions Recorded Aspirin E.C. [Ecotrin] 81 mg PO QHS 12/04/16 Atorvastatin Calcium [Lipitor] 40 mg PO QHS 09/05/17 Iron Polysaccharide Complex 150 mg PO DAILYCM 09/05/17 [Ferrex 150] Magnesium Oxide [Mag-Ox 400] 400 mg PO QHS 09/05/17 Amitriptyline HCl [Elavil] 75 mg PO QHS 09/19/17 Lactulose [Chronulac] 40 gm PO QODAY@2200 09/19/17 Baclofen 20 mg PO QHS 07/01/18 Baclofen [Lioresal] 10 mg PO BID 07/01/18 Bisacodyl [Dulcolax] 10 mg RECTAL QODAY 07/01/18 Calcitriol [Rocaltrol] 0.25 mcg PO QHS 07/01/18 Krill Oil 500 mg PO DAILY 07/01/18 L.acidoph,Paracasei, B.lactis 2 each PO QHS 07/01/18 [Probiotic] ALPRAZolam [Xanax] 0.5 mg PO QHS 02/15/19 Acetaminophen [Tylenol Extra 1,000 mg PO PRN PRN 02/15/19 Strength] Levocetirizine Dihydrochloride 5 mg PO DAILY 02/15/19 [Xyzal] Melatonin 5 mg PO QHS 02/15/19 Vitamin B Complex 1 tab PO DAILY 02/15/19 Ceftriaxone [Rocephin] 2 gm IV Q24 #3 bag 02/17/19 - Social History Tobacco Use: non-smoker Vital Signs Temp Pulse Resp BP Pulse Ox 98.6 F 94 18 160/99 H 97 02/20/19 19:58 02/20/19 19:58 02/20/19 19:58 02/20/19 19:58 02/20/19 19:58 Oxygen Flow Rate (L/min) 2 Oxygen Delivery Method Room Air Weight: 76.9 kg Body Mass Index (BMI) 24.3 Finger Stick Blood Glucose 67 Laboratory Tests Past 24 Hrs 02/20/19 06:00 Sodium 146 H Potassium 3.7 Chloride 116 H Carbon Dioxide 24.0 Anion Gap 6 BUN 18 Creatinine 1.75 H Estim Creat Clear Calc 35.12 Est GFR (MDRD) Af Amer 38 L Est GFR (MDRD) Non-Af 31 L BUN/Creatinine Ratio 10.3 Glucose 91 Calcium 8.7 - Other Studies Radiology: [] reviewed Other Studies: [] Route of nutrition/ use of supplements: [] Nutritional Intake: [] IV Site: [] Maldonado Catheter: [] - Physical Exam General: No apparent distress, Lethargic HEENT: Atraumatic, PERRLA, EOMI Neck: Supple, No Nodes Lungs: Clear to auscultation, Normal air movement Cardiovascular: Regular rate, Regular Rhythm Abdomen: Soft, Non Tender, Non-Distended Extremities: No edema Skin: No rashes IV Site: Peripheral, without redness Musculoskeletal: No Tenderness to Palpation of Joints or Extremities - Assessment/Plan Antibiotics: [] Assessment/Plan: [] Active and Suspected Problems Dehydration (Acute) Constipation (Acute) Vomiting (Acute) Declining functional status (Acute) recurrent complicated morganella uti - suprapubic in place. Improved on ceftriaxone, now on cefepime. With CKD, few options for fpc prevention. Does drink good amount of water daily. Will follow, thank you. D/w case management assistant.
[2019-02-21] MEDS: 0.9% Normal Saline 1,000 ML 100 ML IV ×3 (00:30→18:54)
[2019-02-21 00:33] VITALS: BP 147/86; PULSE 94; RESP 18; TEMP 36.9; O2SAT 94
--- NOTE | 2019-02-21 07:25 | PN_ITS ---
Patient Problems: Active and Suspected Problems Dehydration (Acute) Constipation (Acute) Vomiting (Acute) Declining functional status (Acute) Subjective: Patient seen and per patient's she is more lethargic compared to the previous day. Of note patient has been requested for medication to help patient sleep I recommended against making any changes to her current medication orders. Got the same request again from the later on in the day agreed to increase her melatonin from 5 mg to 10 mg. Objective: General: Patient seen, appears sleepy but arousable Eyes: Anicteric NECK; supple, normal thyroid, RESPIRATORY: Diminished to auscultation bilaterally, CARDIOVASCULAR: Regular S1 S2, GI: soft, non-tender, normoactive bowel sounds, : No Renal angle tenderness; EXTREMITIES: No edema, no clubbing, NEURO: Arousable SKIN: No Rash PSYCH; flat affect Vitals/I&O's: Vital Signs Temp Pulse Resp BP Pulse Ox 98.4 F 94 18 147/86 H 94 02/21/19 00:33 02/21/19 00:33 02/21/19 00:33 02/21/19 00:33 02/21/19 00:33 Oxygen Flow Rate (L/min) 2 Oxygen Delivery Method Room Air Weight: 76.9 kg Body Mass Index (BMI) 24.3 Finger Stick Blood Glucose 67 Intake and Output for Last 24 Hours 02/19/19 02/20/19 02/21/19 23:59 23:59 23:59 Intake Total 4809 / 4809 2626 / 2626 1275 / 1275 Output Total 4025 / 4025 1650 / 1650 2750 / 2750 Balance 784 / 784 976 / 976 -1475 / -1475 Current Medications Acetaminophen (Tylenol) 650 mg PO Q6H PRN PRN PRN Reason: Mild Pain (1-3)/Temp > 100.7 F Last Admin: 02/19/19 15:51 Dose: 650 mg Alprazolam (Xanax) 0.5 mg PO QHS [facility] Last Admin: 02/20/19 20:26 Dose: 0.5 mg Amitriptyline HCl (Elavil) 75 mg PO QHS [facility] Last Admin: 02/20/19 20:28 Dose: 75 mg Aspirin (Ecotrin) 81 mg PO QHS [facility] Last Admin: 02/20/19 20:27 Dose: 81 mg Atorvastatin Calcium (Lipitor) 40 mg PO QHS [facility] Last Admin: 02/20/19 20:27 Dose: 40 mg Baclofen (Lioresal) 20 mg PO QHS [facility] Last Admin: 02/20/19 20:27 Dose: 20 mg Baclofen (Lioresal) 10 mg PO 0600,1400 [facility] Last Admin: 02/20/19 13:43 Dose: 10 mg Bisacodyl (Dulcolax) 10 mg RECTAL DAILY PRN PRN Reason: Constipation Last Admin: 02/19/19 10:22 Dose: 10 mg Calcitriol (Rocaltrol) 0.25 mcg PO QHS [facility] Last Admin: 02/20/19 20:26 Dose: 0.25 mcg Heparin Sodium (Porcine) (Heparin Na) 5,000 unit SC Q8 [facility] Last Admin: 02/20/19 20:27 Dose: 5,000 unit Hydralazine HCl (Apresoline Iv) 5 mg IV Q4H PRN PRN PRN Reason: HYPERTENSION Last Admin: 02/19/19 08:15 Dose: 5 mg Sodium Chloride () 1,000 mls @ 100 mls/hr IV .Q10H [facility] Last Admin: 02/21/19 00:30 Dose: 100 mls/hr Cefepime HCl 1 gm/ Sodium (Chloride) 50 mls @ 100 mls/hr IV Q12 [facility] Last Admin: 02/20/19 20:30 Dose: 100 mls/hr Labetalol HCl (Trandate) 10 mg IV Q4H PRN PRN PRN Reason: BLOOD PRESSURE Last Admin: 02/18/19 22:43 Dose: 10 mg Lactulose (Chronulac, Cephulac) 20 gm PO BID [facility] Last Admin: 02/20/19 20:25 Dose: 20 gm Loratadine (Claritin) 5 mg PO DAILY [facility] Last Admin: 02/20/19 07:38 Dose: 5 mg Magnesium Oxide (Mag-Ox 400) 400 mg PO QHS [facility] Last Admin: 02/20/19 20:27 Dose: 400 mg Melatonin (Melatonin) 10 mg PO QHS [facility] Last Admin: 02/20/19 20:26 Dose: 10 mg Ondansetron HCl (Zofran) 4 mg IV Q8H PRN PRN PRN Reason: NAUSEA/VOMITING Last Admin: 02/15/19 20:34 Dose: 4 mg Polysaccharide Iron Complex (Ferrex 150) 150 mg PO DAILYCM [facility] Last Admin: 02/20/19 07:38 Dose: 150 mg Promethazine HCl (Phenergan) 6.25 mg IV Q6H PRN PRN PRN Reason: NAUSEA/VOMITING Sodium Chloride () 5 - 15 ml IV UD PRN PRN Reason: SALINE FLUSH Last Admin: 02/20/19 05:42 Dose: 15 ml Medical Necessity - Tobacco Use Smoking Status: Never smoker Assessment/Plan All Active Problems Dehydration (Acute) Constipation (Acute) Vomiting (Acute) Declining functional status (Acute) Complicated urinary tract infection (Resolved) Patient is a 64-year-old lady with history of multiple sclerosis with significant debility brought to the emergency department by her with generalized weakness and constipation. Patient was in addition found to have acute cystitis admitted to regular nursing floor for further management 1. Constipation treated symptomatically with bowel regimen 2. Acute cystitis with Morganella morganii sp manohar has underlying history of recurrent UTIs currently on currently on cefepime with consultation placed to infectious disease patient was seen by Dr. Wright with infectious disease his notes and recommendations reviewed 3. Dyslipidemia-patient is on statin therapy, continued at home dose 4. Multiple sclerosis with significant debility patient is on baclofen patient is also on Zanaflex at home held 5. Chronic kidney disease baseline creatinine 2.0,; kidney function at baseline 6. Physical debility plan was for patient to have been transferred to the skilled unit (transitional care unit) ; case management insurance denied patient's transfer to [facility] facility. If he has been scheduled on behalf of the patient on 02/22/2019 7. DVT prophylaxis SC heparin Code Visit Inpatient E&M: 77245 Subs Hosp L2
[2019-02-21 08:16] LABS: Absolute Lymphocyte Count 1.19 X10^3/ul (0.83-4.51); Absolute Neutrophil Count 4.7 X10^3/uL (2.0-7.7); Basophil# 0.03 X10^3/uL; Basophil% 0.4 % (0-1); Eosinophil# 0.33 X10^3/uL; Eosinophils% 4.7 % (0-5); Hematocrit 33.4 % (37-47); Hemoglobin 10.7 g/dl (12.0-15.0); Lymphocyte # 1.19 X10^3/ul (4.0); Lymphocyte % 16.8 % (19-41); Mean Corpuscular Hgb 29.2 pg (27.0-32.0); Mean Corpuscular Volume 91.3 fL (81-99); Mean Platelet Vol. 9.3 fl (6.2-12.0); Monocyte# 0.81 X10^3/uL; Monocyte% 11.5 % (0-10); Neutrophil % 66.5 % (47-70); Platelet Count 149 K/mm3 (150-450); RBC Distribution Width CV 16.5 % (11.6-14.6); RBC Distribution Width SD 54.4 fl (35.1-43.9); Red Blood Count 3.66 M/mm3 (4.2-5.4); White Blood Count 7.1 K/mm3 (4.4-11.0)
[2019-02-21 08:17] LABS: POSITIVE COUNT NO; POSITIVE DIFFERENTIAL NO; POSITIVE MORPHOLOGY NO
[2019-02-21 08:28] VITALS: BP 148/89; PULSE 82; RESP 16; TEMP 36.8; O2SAT 94
[2019-02-21] MEDS: Heparin Injection (Vial) 5,000 UNIT/ML VIAL 5000 UNIT SC ×3 (08:32→21:57)
[2019-02-21 08:39] LABS: Anion Gap 5 (5-15); BUN 16 mg/dL (7-18); BUN/Creat Ratio 9.8 RATIO (10-20); Calcium,Total 8.4 mg/dL (8.5-10.1); Chloride 115 mmol/L (98-107); Creatinine, Serum 1.64 mg/dL (0.55-1.02); EST Glomerular Filtration Rate 34 mL/min (>60); Est Glom Filt Rate - Afr Amer 41 mL/min (>60); Estimated Creatinine Clearance 37.48 ml/min; Glucose 90 mg/dL (74-106); Magnesium 2.5 mg/dL (1.6-2.6); Potassium 3.4 mmol/L (3.5-5.1); Sodium Level 144 mmol/L (136-145)
--- NOTE | 2019-02-21 09:56 | CASEMGMT ---
Addendum entered by Kelsie Armendariz 02/21/19 12:20: SW updated pt and pt's Siva on Peer to Peer tomorrow and explained that Dr. Sam will be doing peer to peer and if the peer to peer still gets denied then the options are paying privately for SNF or going home. Pt and Siva state understanding. Original Note: Addendum entered by Kelsie Armendariz 02/21/19 11:12: SW updated Lynsey that peer to peer is scheduled for tomorrow at 11:00am. Original Note: Social Work Note SW updated that physician is willing to do peer to peer for pt to go to TCU. SW called Lynsey with TCU updated her that physician is willing to try peer to peer, Lynsey states she will hold bed for on TCU for pt. SW placed a call to Fadumo Willams at [facility]. SW updated Fadumo Willams that physician is willing to complete peer to peer for pt. Fadumo Willams scheduled peer to peer for tomorrow at 11:00am. Fadumo Willams states physician will need to call , option 1, option 1, option 3, reference number [id number] and that peer to peer is scheduled with Dr. Conde. Physician updated. Plan: Physician to complete peer to peer tomorrow at 11:00am. TCU pending peer to peer. Kelsie Armendariz GLASS TECHNOLOGIST, PARKING ENFORCEMENT TECHNICIAN
--- NOTE | 2019-02-21 11:01 | PN.ID_ITS ---
Patient Problems: Active and Suspected Problems Dehydration (Acute) Constipation (Acute) Vomiting (Acute) Declining functional status (Acute) Subjective: Sleepier today, no fever - Physical Exam General: No apparent distress Lungs: Clear to auscultation, Normal air movement Cardiovascular: Regular rate, Regular Rhythm Abdomen: Soft, Non Tender, Non-Distended Skin: No rashes Vital Signs Temp Pulse Resp BP Pulse Ox 98.2 F 82 16 148/89 H 94 02/21/19 08:28 02/21/19 08:28 02/21/19 08:28 02/21/19 08:28 02/21/19 08:28 Oxygen Flow Rate (L/min) 2 Oxygen Delivery Method Room Air Weight: 76.9 kg Body Mass Index (BMI) 24.3 Finger Stick Blood Glucose 67 Intake and Output for Last 24 Hours 02/19/19 02/20/19 02/21/19 23:59 23:59 23:59 Intake Total 4809 / 4809 2626 / 2626 1275 / 1275 Output Total 4025 / 4025 1650 / 1650 2750 / 2750 Balance 784 / 784 976 / 976 -1475 / -1475 Laboratory Tests Past 24 Hrs 02/21/19 02/21/19 08:00 08:00 WBC 7.1 RBC 3.66 L Hgb 10.7 L Hct 33.4 L MCV 91.3 MCH 29.2 MCHC 32.0 RDW 16.5 H RDW Differential 54.4 H Plt Count 149 L MPV 9.3 Immature Gran % (Auto) 0.100 Neut % (Auto) 66.5 Lymph % (Auto) 16.8 L [place] % (Auto) 11.5 H Eos % (Auto) 4.7 Baso % (Auto) 0.4 Absolute Neuts (auto) 4.7 Absolute Lymphs (auto) 1.19 Total Counted Not Reportable Sodium 144 Potassium 3.4 L Chloride 115 H Carbon Dioxide 24.0 Anion Gap 5 BUN 16 Creatinine 1.64 H Estim Creat Clear Calc 37.48 Est GFR (MDRD) Af Amer 41 L Est GFR (MDRD) Non-Af 34 L BUN/Creatinine Ratio 9.8 L Glucose 90 Calcium 8.4 L Magnesium 2.5 Medical Necessity - Tobacco Use Smoking Status: Never smoker Route of nutrition/ use of supplements: [] Nutritional Intake: [] IV Site: [] Maldonado Catheter: [] - Assessment/Plan Antibiotics: [] Assessment/Plan: [] Active and Suspected Problems Dehydration (Acute) Constipation (Acute) Vomiting (Acute) Declining functional status (Acute) recurrent complicated morganella uti - suprapubic in place. Will narrow her back to ceftriaxone. With CKD, few options for senior living prevention. Does drink good amount of water daily. Will follow
[2019-02-21] MEDS: Loratadine 10 MG Tablet 5 MG PO (11:14)
[2019-02-21] MEDS: Iron Polysaccharide Complex 150 MG CAPSULE PO (11:14)
[2019-02-21] MEDS: Lactulose 20 GM/30 ML UDC PO ×2 (11:14→21:48)
[2019-02-21 11:30] VITALS: BP 151/92; PULSE 79; RESP 18; TEMP 37.1; O2SAT 97
--- NOTE | 2019-02-21 12:41 | CHAPLAIN ---
Type of Pastoral Visit ___ Initial Visit _x__ Follow-up Visit ___ On-call Visit ___ General Patient Visit ___ Spiritual Assessment ___ Family Conference ___ Bereavement ___ Rapid Response ___ Code Blue ___ Other (describe below) Pastoral Care Referral From _x__ Patient _x__ Family ___ Nurse ___ Physician ___ Track Walker ___ Plant Sciences Professor ___ Other (describe below) Sacrament/Intervention _x__ Active listening ___ Anointing ___ Zoroastrianism ___ Bereavement ___ Communion _x__ Justine exploration ___ _x__ Life review _x__ Prayer ___ Reconciliation ___ Sacrament of Sick _x__ Supportive presence ___ Wedding ___ Other (describe below) Pastoral Comments spouse of patient does almost all of the talking and giving of information; spouse actively seeks out opportunity to talk and have spiritual and emotional support;
[2019-02-21 15:45] VITALS: BP 141/79; PULSE 88; RESP 18; TEMP 37.3; O2SAT 95
[2019-02-21] MEDS: Bisacodyl 10 MG Suppository RECTAL (15:48)
[2019-02-21] MEDS: Baclofen 10 MG Tablet PO (15:52)
[2019-02-21 21:27] VITALS: BP 156/99; PULSE 99; RESP 16; TEMP 36.7; O2SAT 95
[2019-02-21] MEDS: Baclofen 10 MG Tablet 20 MG PO (21:48)
[2019-02-21] MEDS: MELATONIN 10 MG TABLET PO (21:48)
[2019-02-21] MEDS: Aspirin E.C. 81 MG Tablet PO (21:48)
[2019-02-21] MEDS: ALPRAZolam 0.5 MG Tablet PO (21:48)
[2019-02-21] MEDS: Magnesium Oxide 400 MG Tablet PO (21:48)
[2019-02-21] MEDS: Amitriptyline 25 MG Tablet 75 MG PO (21:48)
[2019-02-21] MEDS: Calcitriol 0.25 MCG Capsule PO (21:48)
[2019-02-21] MEDS: Atorvastatin Calcium 40 MG Tablet PO (21:48)
[2019-02-22] MEDS: 0.9% Normal Saline 1,000 ML 100 ML IV (05:02)
[2019-02-22 05:30] VITALS: BP 150/90; PULSE 86; RESP 16; TEMP 36.9; O2SAT 90
[2019-02-22] MEDS: Heparin Injection (Vial) 5,000 UNIT/ML VIAL 5000 UNIT SC ×2 (06:31→14:22)
[2019-02-22 06:35] VITALS: BP 158/95; PULSE 87; RESP 16; TEMP 36.7; O2SAT 93
[2019-02-22] MEDS: Iron Polysaccharide Complex 150 MG CAPSULE PO (07:19)
[2019-02-22] MEDS: Baclofen 10 MG Tablet PO ×2 (07:19→14:22)
--- NOTE | 2019-02-22 07:47 | PN_ITS ---
Patient Problems: Active and Suspected Problems Dehydration (Acute) Constipation (Acute) Vomiting (Acute) Declining functional status (Acute) Subjective: Patient seen per nursing staff had a restful evening Objective: General: Patient seen, much more awake Eyes: Anicteric NECK; supple, normal thyroid, RESPIRATORY: Diminished to auscultation bilaterally, CARDIOVASCULAR: Regular S1 S2, GI: soft, non-tender, normoactive bowel sounds, : No Renal angle tenderness; EXTREMITIES: No edema, no clubbing, NEURO: Awake SKIN: No Rash PSYCH; flat affect Vitals/I&O's: Vital Signs Temp Pulse Resp BP Pulse Ox 98.0 F 87 16 158/95 H 93 02/22/19 06:35 02/22/19 06:35 02/22/19 06:35 02/22/19 06:35 02/22/19 06:35 Oxygen Flow Rate (L/min) 2 Oxygen Delivery Method Room Air Weight: 76.9 kg Body Mass Index (BMI) 24.3 Finger Stick Blood Glucose 67 Intake and Output for Last 24 Hours 02/20/19 02/21/19 02/22/19 23:59 23:59 23:59 Intake Total 2626 / 2626 4664 / 4664 610 / 610 Output Total 1650 / 1650 5550 / 5550 1000 / 1000 Balance 976 / 976 -886 / -886 -390 / -390 Laboratory Results 02/21/19 08:00: WBC 7.1, RBC 3.66 L, Hgb 10.7 L, Hct 33.4 L, MCV 91.3, MCH 29.2, MCHC 32.0, RDW 16.5 H, RDW Differential 54.4 H, Plt Count 149 L, MPV 9.3, Immature Gran % (Auto) 0.100, Neut % (Auto) 66.5, Lymph % (Auto) 16.8 L, [place] % (Auto) 11.5 H, Eos % (Auto) 4.7, Baso % (Auto) 0.4, Absolute Neuts (auto) 4.7, Absolute Lymphs (auto) 1.19, Total Counted Not Reportable 02/21/19 08:00: Sodium 144, Potassium 3.4 L, Chloride 115 H, Carbon Dioxide 24.0, Anion Gap 5, BUN 16, Creatinine 1.64 H, Estim Creat Clear Calc 37.48, Est GFR (MDRD) Af Amer 41 L, Est GFR (MDRD) Non-Af 34 L, BUN/Creatinine Ratio 9.8 L, Glucose 90, Calcium 8.4 L, Magnesium 2.5 Current Medications Acetaminophen (Tylenol) 650 mg PO Q6H PRN PRN PRN Reason: Mild Pain (1-3)/Temp > 100.7 F Last Admin: 02/19/19 15:51 Dose: 650 mg Alprazolam (Xanax) 0.5 mg PO QHS [facility] Last Admin: 02/21/19 21:48 Dose: 0.5 mg Amitriptyline HCl (Elavil) 75 mg PO QHS [facility] Last Admin: 02/21/19 21:48 Dose: 75 mg Aspirin (Ecotrin) 81 mg PO QHS [facility] Last Admin: 02/21/19 21:48 Dose: 81 mg Atorvastatin Calcium (Lipitor) 40 mg PO QHS [facility] Last Admin: 02/21/19 21:48 Dose: 40 mg Baclofen (Lioresal) 20 mg PO QHS [facility] Last Admin: 02/21/19 21:48 Dose: 20 mg Baclofen (Lioresal) 10 mg PO 0600,1400 [facility] Last Admin: 02/22/19 07:19 Dose: 10 mg Bisacodyl (Dulcolax) 10 mg RECTAL DAILY PRN PRN Reason: Constipation Last Admin: 02/21/19 15:48 Dose: 10 mg Calcitriol (Rocaltrol) 0.25 mcg PO QHS [facility] Last Admin: 02/21/19 21:48 Dose: 0.25 mcg Heparin Sodium (Porcine) (Heparin Na) 5,000 unit SC Q8 [facility] Last Admin: 02/22/19 06:31 Dose: 5,000 unit Hydralazine HCl (Apresoline Iv) 5 mg IV Q4H PRN PRN PRN Reason: HYPERTENSION Last Admin: 02/19/19 08:15 Dose: 5 mg Sodium Chloride () 1,000 mls @ 100 mls/hr IV .Q10H [facility] Last Admin: 02/22/19 05:02 Dose: 100 mls/hr Ceftriaxone Sodium 2 gm/ (Sodium Chloride) 50 mls @ 100 mls/hr IV Q24 [facility] Last Admin: 02/21/19 11:14 Dose: 100 mls/hr Labetalol HCl (Trandate) 10 mg IV Q4H PRN PRN PRN Reason: BLOOD PRESSURE Last Admin: 02/18/19 22:43 Dose: 10 mg Lactulose (Chronulac, Cephulac) 20 gm PO BID [facility] Last Admin: 02/21/19 21:48 Dose: 20 gm Loratadine (Claritin) 5 mg PO DAILY [facility] Last Admin: 02/21/19 11:14 Dose: 5 mg Magnesium Oxide (Mag-Ox 400) 400 mg PO QHS [facility] Last Admin: 02/21/19 21:48 Dose: 400 mg Melatonin (Melatonin) 10 mg PO QHS [facility] Last Admin: 02/21/19 21:48 Dose: 10 mg Ondansetron HCl (Zofran) 4 mg IV Q8H PRN PRN PRN Reason: NAUSEA/VOMITING Last Admin: 02/15/19 20:34 Dose: 4 mg Polysaccharide [facility] ([facility]rex 150) [facility] Last Admin: 02/22/19 07:19 Dose: 150 mg Promethazine HCl (Phenergan) 6.25 mg IV Q6H PRN PRN PRN Reason: NAUSEA/VOMITING Sodium Chloride () 5 - 15 ml IV UD PRN PRN Reason: SALINE FLUSH Last Admin: 02/20/19 05:42 Dose: 15 ml Medical Necessity - Tobacco Use Smoking Status: Never smoker Assessment/Plan All Active Problems Dehydration (Acute) Constipation (Acute) Vomiting (Acute) Declining functional status (Acute) Complicated urinary tract infection (Resolved) Patient is a 64-year-old lady with history of multiple sclerosis with significan t debility brought to the emergency department by her with generalized weakness and constipation. Patient was in addition found to have acute cystitis admitted to regular nursing floor for further management 1. Constipation treated symptomatically with bowel regimen 2. Acute cystitis with Morganella morganii sp manohar has underlying history of recurrent UTIs currently on currently on cefepime with consultation placed to infectious disease patient was seen by Dr. Wright with infectious disease his notes and recommendations reviewed 3. Dyslipidemia-patient is on statin therapy, continued at home dose 4. Multiple sclerosis with significant debility patient is on baclofen patient is also on Zanaflex at home held 5. Chronic kidney disease baseline creatinine 2.0,; kidney function at baseline 6. Physical debility plan was for patient to have been transferred to the skilled unit (transitional care unit) ; case management [facility]; peer too peer has been scheduled on behalf of the patient on 02/22/2019 7. DVT prophylaxis SC heparin Code Visit Inpatient E&M: 45942 Subs Hosp L2
--- NOTE | 2019-02-22 09:27 | CASEMGMT ---
SHARLENE LATHAM called Chuy at [facility] for update on status of boris setup. Chuy states that insurance requires Prior Authorization for boris and was submitted today. Per Chuy could take an additional 3-5 days. SHARLENE LATHAM requested if Chuy could ask for Prior Authorization be expedited because patient may be discharging today. Chuy stated he would ask but could not guarantee anything. SHARLENE LATHAM to updated patient's .
--- NOTE | 2019-02-22 10:01 | NURSING ---
wound photo: right lateral forearm near elbow
[2019-02-22] MEDS: Lactulose 20 GM/30 ML UDC PO (10:11)
[2019-02-22] MEDS: Loratadine 10 MG Tablet 5 MG PO (10:11)
[2019-02-22] MEDS: Bisacodyl 10 MG Suppository RECTAL (10:13)
--- NOTE | 2019-02-22 11:39 | DCINST_ITS ---
- Discharge Diagnoses Current Active Problems: Current Active and Chronic Problems Dehydration (Acute) Constipation (Acute) Vomiting (Acute) Declining functional status (Acute) Multiple sclerosis (Chronic) You will use the following diet at home:: No restrictions Allergies/Adverse Reactions: Allergies ciprofloxacin [From Cipro] Adverse Reaction (Verified 02/15/19 09:21) hypotension interacts w/ zanaflex and baclofen doxycycline Adverse Reaction (Verified 02/15/19 09:21) hypotension interacts w/ zanaflex and baclofen levofloxacin [From Levaquin] Adverse Reaction (Verified 02/15/19 09:21) hypotension interacts w/ zanaflex and baclofen morphine Adverse Reaction (Verified 02/15/19 09:21) hallucinations piperacillin [From Zosyn] Adverse Reaction (Verified 02/15/19 09:21) hypotension interacts w/ zanaflex and baclofen sulfamethoxazole [From Bactrim] Adverse Reaction (Verified 02/15/19 09:21) hypotension interacts w/ zanaflex and baclofen tazobactam [From Zosyn] Adverse Reaction (Verified 02/15/19 09:21) hypotension interacts w/ zanaflex and baclofen trimethoprim [From Bactrim] Adverse Reaction (Verified 02/15/19 09:21) hypotension interacts w/ zanaflex and baclofen vancomycin Adverse Reaction (Verified 02/15/19 09:21) developed toxic levels Medications to take at Discharge Aspirin E.C. [Ecotrin] 81 mg PO QHS 12/04/16 Atorvastatin Calcium [Lipitor] 40 mg PO QHS 09/05/17 Iron Polysaccharide Complex [Ferrex 150] 150 mg PO DAILYCM 09/05/17 Magnesium Oxide [Mag-Ox 400] 400 mg PO QHS 09/05/17 Amitriptyline HCl [Elavil] 75 mg PO QHS 09/19/17 Lactulose [Chronulac] 40 gm PO QODAY@2200 09/19/17 Baclofen 20 mg PO QHS 07/01/18 Baclofen [Lioresal] 10 mg PO BID 07/01/18 Bisacodyl [Dulcolax] 10 mg RECTAL QODAY 07/01/18 Calcitriol [Rocaltrol] 0.25 mcg PO QHS 07/01/18 Krill Oil 500 mg PO DAILY 07/01/18 L.acidoph,Paracasei, B.lactis [Probiotic] 2 each PO QHS 07/01/18 ALPRAZolam [Xanax] 0.5 mg PO QHS 02/15/19 Acetaminophen [Tylenol] 1,000 mg PO PRN PRN 02/15/19 Levocetirizine Dihydrochloride [Xyzal] 5 mg PO DAILY 02/15/19 Melatonin 5 mg PO QHS 02/15/19 Vitamin B Complex 1 tab PO DAILY 02/15/19 Primary Care Physician: Alexandria Carranza MD [Primary Care Provider] - Please follow up with your Primary Care Physician in: in 1-2 days Test Results: Test results from this visit will be discussed in further detail at your follow- up appointment, if applicable. Proposed Discharge Date: 02/22/19
--- NOTE | 2019-02-22 11:41 | PCM.DC.SUM ---
Discharge Date and Diagnosis - Problem List Patient Problems: Active and Suspected Problems Dehydration (Acute) Constipation (Acute) Vomiting (Acute) Declining functional status (Acute) Date of Admission: 02/15/19 Date of Discharge: 02/22/19 - Primary Discharge Diagnosis Active and Suspected Problems Dehydration (Acute) Constipation (Acute) Vomiting (Acute) Declining functional status (Acute) - Secondary Discharge Diagnosis Chronic Problems Hydronephrosis (Chronic) Bilateral. 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 Chronic. Similar features seen on prior imaging. Suspected constipation. No other definitive acute abdominopelvic process is evident. A short segment of wall thickening of the rectosigmoid junction appears to be stable compared to prior imaging of 2017. Malignancy is considered unlikely. Close clinical correlation is recommended. Colonoscopy is recommended. Prominently elevated right hemidiaphragm, chronic, associated with dense medial lung base atelectasis. Coronary atherosclerosis. Electronically Signed: Bill English MD at 13:33 EDT Tel , Service support , KUB X-Ray 02/16/19 05:55 IMPRESSION: Marked elevation of the right hemidiaphragm. Gaseous distention of the stomach. Gas and fecal material are seen in the colon. Electronically Signed: Luís Hines, at 8:28 EDT , Service support , Microbiology 02/15/19 12:55 Urine Catheter - Catheter Urine Culture - Final Morganella morganii sp sibonii Operations: None Summary of Care Provided: Patient is a 64-year-old lady with history of multiple sclerosis with significant debility brought to the emergency department by her with generalized weakness and constipation. Patient was in addition found to have acute cystitis admitted to regular nursing floor for further management 1. Constipation treated symptomatically with bowel regimen 2. Acute cystitis with Morganella morganii sp manohar has underlying history of recurrent UTIs currently on currently on cefepime with consultation placed to infectious disease patient was seen by Dr. Wright with infectious disease he did switch back to Rocephin 3. Dyslipidemia-patient is on statin therapy, continued at home dose 4. Multiple sclerosis with significant debility patient is on baclofen patient is also on Zanaflex at home held 5. Chronic kidney disease baseline creatinine 2.0,; kidney function at baseline 6. Physical debility plan was for patient to have been transferred to the skilled unit (transitional care unit) ; case management insurance denied [facility]'s transfer to [facility] facility; peer too peer was scheduled on behalf of the patient on 02/22/2019 and was once again denied. This was communicated to patient . Decision was made to discharge patient home 7. DVT prophylaxis SC heparin Patient Problems: Active and Suspected Problems Dehydration (Acute) Constipation (Acute) Vomiting (Acute) Declining functional status (Acute) - Physical Exam General: No apparent distress Cardiovascular: Regular rate, Regular Rhythm Psych/Mental Status: Appropriate Vital Signs Temp Pulse Resp BP Pulse Ox 98.0 F 87 16 158/95 H 93 02/22/19 06:35 02/22/19 06:35 02/22/19 06:35 02/22/19 06:35 02/22/19 06:35 Oxygen Flow Rate (L/min) 2 Oxygen Delivery Method Room Air Weight: 76.9 kg Body Mass Index (BMI) 24.3 Finger Stick Blood Glucose 67 Intake and Output for Last 24 Hours 02/20/19 02/21/19 02/22/19 23:59 23:59 23:59 Intake Total 2626 / 2626 4664 / 4664 610 / 610 Output Total 1650 / 1650 5550 / 5550 1000 / 1000 Balance 976 / 976 -886 / -886 -390 / -390 Discharge Diet: No Restrictions Home Medications: Medications to take at Discharge Aspirin E.C. [Ecotrin] 81 mg PO QHS 12/04/16 Atorvastatin Calcium [Lipitor] 40 mg PO QHS 09/05/17 Iron Polysaccharide Complex [Ferrex 150] 150 mg PO DAILYCM 09/05/17 Magnesium Oxide [Mag-Ox 400] 400 mg PO QHS 09/05/17 Amitriptyline HCl [Elavil] 75 mg PO QHS 09/19/17 Lactulose [Chronulac] 40 gm PO QODAY@2200 09/19/17 Baclofen 20 mg PO QHS 07/01/18 Baclofen [Lioresal] 10 mg PO BID 07/01/18 Bisacodyl [Dulcolax] 10 mg RECTAL QODAY 07/01/18 Calcitriol [Rocaltrol] 0.25 mcg PO QHS 07/01/18 Krill Oil 500 mg PO DAILY 07/01/18 L.acidoph,Paracasei, B.lactis [Probiotic] 2 each PO QHS 07/01/18 ALPRAZolam [Xanax] 0.5 mg PO QHS 02/15/19 Acetaminophen [Tylenol] 1,000 mg PO PRN PRN 02/15/19 Levocetirizine Dihydrochloride [Xyzal] 5 mg PO DAILY 02/15/19 Melatonin 5 mg PO QHS 02/15/19 Vitamin B Complex 1 tab PO DAILY 02/15/19 Primary Care Physician: Alexandria Carranza MD [Primary Care Provider] - Please follow up with your Primary Care Physician in: in 1-2 days Medical Necessity - Tobacco Use Smoking Status: Never smoker Meaningful Use Info Meaningful Use Diagnoses (Choose all that apply): None applicable Code Visit Inpatient E&M: 89500 Disch Hosp
--- NOTE | 2019-02-22 11:46 | DS.PCM_ITS ---
Discharge Date and Diagnosis - Problem List Patient Problems: Active and Suspected Problems Dehydration (Acute) Constipation (Acute) Vomiting (Acute) Declining functional status (Acute) Date of Admission: 02/15/19 Date of Discharge: 02/22/19 - Primary Discharge Diagnosis Active and Suspected Problems Dehydration (Acute) Constipation (Acute) Vomiting (Acute) Declining functional status (Acute) - Secondary Discharge Diagnosis Chronic Problems Hydronephrosis (Chronic) Bilateral. 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 Chronic. Similar features seen on prior imaging. Suspected constipation. No other definitive acute abdominopelvic process is evident. A short segment of wall thickening of the rectosigmoid junction appears to be stable compared to prior imaging of 2017. Malignancy is considered unlikely. Close clinical correlation is recommended. Colonoscopy is recommended. Prominently elevated right hemidiaphragm, chronic, associated with dense medial lung base atelectasis. Coronary atherosclerosis. Electronically Signed: Bill English MD at 13:33 EDT Tel , Service support , KUB X-Ray 02/16/19 05:55 IMPRESSION: Marked elevation of the right hemidiaphragm. Gaseous distention of the stomach. Gas and fecal material are seen in the colon. Electronically Signed: Luís Hines, at 8:28 EDT , Service support , Microbiology 02/15/19 12:55 Urine Catheter - Catheter Urine Culture - Final Morganella morganii sp sibonii Operations: None Summary of Care Provided: Patient is a 64-year-old lady with history of multiple sclerosis with significant debility brought to the emergency department by her with generalized weakness and constipation. Patient was in addition found to have acute cystitis admitted to regular nursing floor for further management 1. Constipation treated symptomatically with bowel regimen 2. Acute cystitis with Morganella morganii sp manohar has underlying history of recurrent UTIs currently on currently on cefepime with consultation placed to infectious disease patient was seen by Dr. Wright with infectious disease he did switch back to Rocephin 3. Dyslipidemia-patient is on statin therapy, continued at home dose 4. Multiple sclerosis with significant debility patient is on baclofen patient is also on Zanaflex at home held 5. Chronic kidney disease baseline creatinine 2.0,; kidney function at baseline 6. Physical debility plan was for patient to have been transferred to the skilled unit (transitional care unit) ; case management insurance denied patient's transfer to longterm facility; peer too peer was scheduled on behalf of the patient on 02/22/2019 and was once again denied. This was communicated to patient . Decision was made to discharge patient home 7. DVT prophylaxis SC heparin Patient Problems: Active and Suspected Problems Dehydration (Acute) Constipation (Acute) Vomiting (Acute) Declining functional status (Acute) - Physical Exam General: No apparent distress Cardiovascular: Regular rate, Regular Rhythm Psych/Mental Status: Appropriate Vital Signs Temp Pulse Resp BP Pulse Ox 98.0 F 87 16 158/95 H 93 02/22/19 06:35 02/22/19 06:35 02/22/19 06:35 02/22/19 06:35 02/22/19 06:35 Oxygen Flow Rate (L/min) 2 Oxygen Delivery Method Room Air Weight: 76.9 kg Body Mass Index (BMI) 24.3 Finger Stick Blood Glucose 67 Intake and Output for Last 24 Hours 02/20/19 02/21/19 02/22/19 23:59 23:59 23:59 Intake Total 2626 / 2626 4664 / 4664 610 / 610 Output Total 1650 / 1650 5550 / 5550 1000 / 1000 Balance 976 / 976 -886 / -886 -390 / -390 Discharge Diet: No Restrictions Home Medications: Medications to take at Discharge Aspirin E.C. [Ecotrin] 81 mg PO QHS 12/04/16 Atorvastatin Calcium [Lipitor] 40 mg PO QHS 09/05/17 Iron Polysaccharide Complex [Ferrex 150] 150 mg PO DAILYCM 09/05/17 Magnesium Oxide [Mag-Ox 400] 400 mg PO QHS 09/05/17 Amitriptyline HCl [Elavil] 75 mg PO QHS 09/19/17 Lactulose [Chronulac] 40 gm PO QODAY@2200 09/19/17 Baclofen 20 mg PO QHS 07/01/18 Baclofen [Lioresal] 10 mg PO BID 07/01/18 Bisacodyl [Dulcolax] 10 mg RECTAL QODAY 07/01/18 Calcitriol [Rocaltrol] 0.25 mcg PO QHS 07/01/18 Krill Oil 500 mg PO DAILY 07/01/18 L.acidoph,Paracasei, B.lactis [Probiotic] 2 each PO QHS 07/01/18 ALPRAZolam [Xanax] 0.5 mg PO QHS 02/15/19 Acetaminophen [Tylenol] 1,000 mg PO PRN PRN 02/15/19 Levocetirizine Dihydrochloride [Xyzal] 5 mg PO DAILY 02/15/19 Melatonin 5 mg PO QHS 02/15/19 Vitamin B Complex 1 tab PO DAILY 02/15/19 Primary Care Physician: Alexandria Carranza MD [Primary Care Provider] - Please follow up with your Primary Care Physician in: in 1-2 days Medical Necessity - Tobacco Use Smoking Status: Never smoker Meaningful Use Info Meaningful Use Diagnoses (Choose all that apply): None applicable Code Visit Inpatient E&M: 81304 Disch Hosp
--- NOTE | 2019-02-22 11:55 | CASEMGMT ---
Addendum entered by Kelsie Armendariz 02/22/19 12:34: DICK spoke with pt's Siva who states financial are taken care of for pt to go to TCU and if anyone has questions to ask Janae with [facility]. DICK placed a call to Gisela in TCU, left message, that Siva is willing to pay privately for SNF and to speak with Janae with [facility] regarding payment and that pt is being discharged today to TCU. DICK updated physician that pt will now be going to SNF private pay. DICK received call from Fadumo Willams with [employer] confirming that denial was upheld and that physician agrees with denial. Plan: TCU today private pay Original Note: Social Work Note Physician completed peer to peer and denial was upheld. DICK met with pt and pt's Siva. Siva states physician updated him that peer to peer denial was upheld. Siva asked about paying privately for TCU. DICK explained that this worker can call TCU and confirm private day rates and if they require up front fee. DICK placed a call to Gisela in TCU. Gisela states that daily private rate is $660 a day and they require three week up front payment of $13,860. DICK also called Any at [facility] as Siva had mentioned [facility] as a second choice. Any states daily private rate is $275 a day and they require month up front payment of $8,250. Both Gisela and Any stated that if pt isn't at facility for the 3 weeks or month then pt would be reimbursed. DICK updated Siva of this. Siva states that getting pt still to TCU is not impossible and states that he will going to TCU to talk with the therapist to determine how long they think pt will be at TCU. DICK placed a call to Gisela to TCU, updated her that pt's is stating that getting pt to TCU is not impossible and sounds like pt may still be discharged to TCU today private pay. SW to continue to follow along. 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
--- NOTE | 2019-02-22 12:14 | NURSING ---
wound photo: right lateral thigh
[2019-02-22 12:30] VITALS: BP 153/98; PULSE 87; RESP 18; TEMP 36.4; O2SAT 95
--- NOTE | 2019-02-22 12:49 | PCM.TXEXTCAR ---
- Diet 02/18/19 10:56 Diet: Regular Diet Food consistency:: Regular Liquid Consistency:: Regular/Thin Type of Dietary Supplement:: Ensure Complete Is pt able to select menu?: Yes - Wound(s) R CARNEY Wound Type: Abrasion right lateral forearm near elbow Wound Type: friction Dressing Change: Mepilex right lateral thigh Wound Type: small linear rocio (possible from skin getting pinched) - Therapies Physical Therapy: Eval and Treat Occupational Therapy: Eval and Treat - Allergies/Procedures Done in Hospital Allergies/Adverse Reactions: Allergies ciprofloxacin [From Cipro] Adverse Reaction (Verified 02/15/19 09:21) hypotension interacts w/ zanaflex and baclofen doxycycline Adverse Reaction (Verified 02/15/19 09:21) hypotension interacts w/ zanaflex and baclofen levofloxacin [From Levaquin] Adverse Reaction (Verified 02/15/19 09:21) hypotension interacts w/ zanaflex and baclofen morphine Adverse Reaction (Verified 02/15/19 09:21) hallucinations piperacillin [From Zosyn] Adverse Reaction (Verified 02/15/19 09:21) hypotension interacts w/ zanaflex and baclofen sulfamethoxazole [From Bactrim] Adverse Reaction (Verified 02/15/19 09:21) hypotension interacts w/ zanaflex and baclofen tazobactam [From Zosyn] Adverse Reaction (Verified 02/15/19 09:21) hypotension interacts w/ zanaflex and baclofen trimethoprim [From Bactrim] Adverse Reaction (Verified 02/15/19 09:21) hypotension interacts w/ zanaflex and baclofen vancomycin Adverse Reaction (Verified 02/15/19 09:21) developed toxic levels - Type of Care/Length of Stay Estimated LOS: Convalescent Care Less Than 30 days Type of Care Needed: Skilled Rehab Potential: Fair Prognosis: Fair - Additional Orders/Day of Discharge Day of Discharge: 02/22/19 - Follow Up Care Primary Care Physician: Alexandria Carranza MD [Primary Care Provider] - Please follow up with your Primary Care Physician in: in 1-2 days
--- NOTE | 2019-02-22 13:19 | PN.ID_ITS ---
Patient Problems: Active and Suspected Problems Dehydration (Acute) Constipation (Acute) Vomiting (Acute) Declining functional status (Acute) Subjective: Feeling better, more awake and active, no fever - Physical Exam General: Alert, Cooperative, No apparent distress Lungs: Clear to auscultation, Normal air movement Cardiovascular: Regular rate, Regular Rhythm Abdomen: Soft, Non Tender, Non-Distended Skin: No rashes Vital Signs Temp Pulse Resp BP Pulse Ox 98.0 F 87 16 158/95 H 93 02/22/19 06:35 02/22/19 06:35 02/22/19 06:35 02/22/19 06:35 02/22/19 06:35 Oxygen Flow Rate (L/min) 2 Oxygen Delivery Method Room Air Weight: 76.9 kg Body Mass Index (BMI) 24.3 Finger Stick Blood Glucose 67 Intake and Output for Last 24 Hours 02/20/19 02/21/19 02/22/19 23:59 23:59 23:59 Intake Total 2626 / 2626 4664 / 4664 610 / 610 Output Total 1650 / 1650 5550 / 5550 1000 / 1000 Balance 976 / 976 -886 / -886 -390 / -390 Medical Necessity - Tobacco Use Smoking Status: Never smoker Route of nutrition/ use of supplements: [] Nutritional Intake: [] IV Site: [] Maldonado Catheter: [] - Assessment/Plan Antibiotics: [] Assessment/Plan: [] Active and Suspected Problems Dehydration (Acute) Constipation (Acute) Vomiting (Acute) Declining functional status (Acute) recurrent complicated morganella uti - suprapubic in place. With CKD, few options for retirement prevention. Completes ceftriaxone today. Will follow
[2019-02-22] MEDS: 0.9% NaCl Peripheral Flush Adult/Peds IV (14:26)
== END 2019-02-22 14:40 | disposition skilled nursing facility (03) ==
LOC: ED 16:58 → MS3 02-16 06:53
PROVIDERS: Family Medicine; Admitting Provider Hospitalist; Emergency Provider Emergency Medicine; Family Provider Internal Medicine; PCP Internal Medicine; Referring Provider Hospitalist; Visit Provider Internal Medicine
DX: E86.0 Dehydration (principal); K59.00 Constipation, unspecified; N32.81 Overactive bladder; G35 Multiple sclerosis; I25.10 Atherosclerotic heart disease of native coronary artery without angina pectoris; E78.5 Hyperlipidemia, unspecified; N18.4 Chronic kidney disease, stage 4 (severe); K55.1 Chronic vascular disorders of intestine; N30.00 Acute cystitis without hematuria; B96.89 Other specified bacterial agents as the cause of diseases classified elsewhere; N31.9 Neuromuscular dysfunction of bladder, unspecified; G81.91 Hemiplegia, unspecified affecting right dominant side; T83.511A Infection and inflammatory reaction due to indwelling urethral catheter, initial encounter; R11.2 Nausea with vomiting, unspecified; G43.909 Migraine, unspecified, not intractable, without status migrainosus; Z79.899 Other long term (current) drug therapy; Z74.01 Bed confinement status; Z79.82 Long term (current) use of aspirin; Z86.14 Personal history of Methicillin resistant Staphylococcus aureus infection; Z86.73 Personal history of transient ischemic attack (TIA), and cerebral infarction without residual deficits
CPT/HCPCS: 36591; 74018; 74176; 80048; 80053; 81001; 83690; 83735; 85025; 87077; 87086; 87088; 87186; 93005; 94760; 96361; 96365; 96366; 96367; 96372; 96375; 96376; 97162; 97166; 97530; 97535; 99218; 99285; J7030; A4216; G0378; J0696; J2405

== ENCOUNTER 2019-02-22 14:49 | Inpatient (IN) | payer MEDICARE, SELFPAY ==
[2019-02-15 17:26] VITALS: BMI 24.3
[2019-02-22 14:55] VITALS: BP 159/96; PULSE 94; RESP 22; TEMP 36.6; O2SAT 94
[2019-02-22 15:13] VITALS: BMI 23.8
[2019-02-22 15:15] VITALS: BMI 23.8
--- NOTE | 2019-02-22 15:25 | NURSING ---
PT ARRIVED VIA BED FROM [id number]
--- NOTE | 2019-02-22 15:42 | NURSING ---
Pt stating that he DOES NOT want Pt turned at all unless Pt asked to be moved. Fadumo SU aware
--- NOTE | 2019-02-22 15:46 | NURSING ---
CODE STATUS DISCUSSED WITH R' AND , FULL CODE.
--- NOTE | 2019-02-22 19:58 | PCM.HP.STD ---
Problem List (1) Neurogenic bladder Status: Chronic (2) MRSA colonization Status: Chronic (3) Bilateral hydronephrosis Status: Chronic (4) Iron deficiency anemia Status: Chronic (5) Hypomagnesemia Status: Chronic (6) Dehydration Status: Acute (7) Constipation Status: Acute (8) Complicated urinary tract infection Status: Acute Comment: Chronic suprapubic catheter. (9) Muscle spasm Status: Chronic (10) OAB (overactive bladder) Status: Chronic (11) Allergic rhinitis Status: Chronic (12) Insomnia Status: Chronic (13) Hyperlipidemia Status: Chronic Qualifiers: (14) CKD (chronic kidney disease) stage 4, GFR 15-29 ml/min Status: Chronic (15) Transient ischemic attack Status: Chronic Qualifiers: (16) Multiple sclerosis Status: Chronic (17) Right hemiparesis Status: Chronic (18) Migraine headache Status: Chronic Qualifiers: History of Present Illness Date of Admission: 02/22/19 Chief Complaint: Here for rehabilitation, strengthening, prior to discharge home with spouse. The patient is a 64 year old Female with below past medical history presented to [facility] Emergency Department 02/15/2019 with abdominal pain. 02/15/2019 CT abdomen/pelvis showed dilated stomach, constipation, multiple chronic changes. Severe left lower quadrant pain. Nausea treated with IV fluids, Zofran, Phenergan. CT shows constipation. Failed soap suds enema. 02/15/2019 Admit to Hospital. Magnesium citrate for constipation. Consult PT/OT for physical decline, resident usually able to transfer at home. IV fluid hydration for acute on chronic kidney failure. Urine culture pending, no antibiotics, patient colonized. UTI M. Morganii treated with Cefepime, then switched to Rocephin per Dr. Wright. Patient finished course of IV antibiotics, done with antibiotics. Kidney function back to baseline. Insurance [facility], despite peer to peer phone call. Spouse opted to private pay. 02/22/2019 Admit to TCU with debility, here for rehabilitation, strengthening, prior to discharge home with spouse. Past Medical History Past Medical History (Chronic Problems): Chronic Problems Neurogenic bladder (Chronic) MRSA colonization (Chronic) Bilateral hydronephrosis (Chronic) Iron deficiency anemia (Chronic) Hypomagnesemia (Chronic) Hydronephrosis (Chronic) Bilateral. Vitamin D deficiency (Chronic) Muscle spasm (Chronic) OAB (overactive bladder) (Chronic) Allergic rhinitis (Chronic) Insomnia (Chronic) Hyperlipidemia (Chronic) CKD (chronic kidney disease) stage 4, GFR 15-29 ml/min (Chronic) Transient ischemic attack (Chronic) Multiple sclerosis (Chronic) Right hemiparesis (Chronic) Migraine headache (Chronic) Allergies ciprofloxacin [From Cipro] Adverse Reaction (Verified 02/15/19 09:21) hypotension interacts w/ zanaflex and baclofen doxycycline Adverse Reaction (Verified 02/15/19 09:21) hypotension interacts w/ zanaflex and baclofen levofloxacin [From Levaquin] Adverse Reaction (Verified 02/15/19 09:21) hypotension interacts w/ zanaflex and baclofen morphine Adverse Reaction (Verified 02/15/19 09:21) hallucinations piperacillin [From Zosyn] Adverse Reaction (Verified 02/15/19 09:21) hypotension interacts w/ zanaflex and baclofen sulfamethoxazole [From Bactrim] Adverse Reaction (Verified 02/15/19 09:21) hypotension interacts w/ zanaflex and baclofen tazobactam [From Zosyn] Adverse Reaction (Verified 02/15/19 09:21) hypotension interacts w/ zanaflex and baclofen trimethoprim [From Bactrim] Adverse Reaction (Verified 02/15/19 09:21) hypotension interacts w/ zanaflex and baclofen vancomycin Adverse Reaction (Verified 02/15/19 09:21) developed toxic levels Home Medications: Ambulatory Orders Medication Instructions Recorded Aspirin E.C. [Ecotrin] 81 mg PO QHS 12/04/16 Atorvastatin Calcium [Lipitor] 40 mg PO QHS 09/05/17 Iron Polysaccharide Complex 150 mg PO DAILYCM 09/05/17 [Ferrex 150] Magnesium Oxide [Mag-Ox 400] 400 mg PO QHS 09/05/17 Amitriptyline HCl [Elavil] 75 mg PO QHS 09/19/17 Lactulose [Chronulac] 40 gm PO QODAY@2200 09/19/17 Baclofen 20 mg PO QHS 07/01/18 Baclofen [Lioresal] 10 mg PO BID 07/01/18 Bisacodyl [Dulcolax] 10 mg RECTAL QODAY 07/01/18 Calcitriol [Rocaltrol] 0.25 mcg PO QHS 07/01/18 Krill Oil 500 mg PO DAILY 07/01/18 L.acidoph,Paracasei, B.lactis 2 each PO QHS 07/01/18 [Probiotic] ALPRAZolam [Xanax] 0.5 mg PO QHS 02/15/19 Acetaminophen [Tylenol] 1,000 mg PO PRN PRN 02/15/19 Levocetirizine Dihydrochloride 5 mg PO DAILY 02/15/19 [Xyzal] Melatonin 10 mg PO QHS 02/15/19 Vitamin B Complex 1 tab PO DAILY 02/15/19 Surgical History: adenoidectomy, tonsillectomy, - - Right shoulder surgery, ORIF right wrist, suprapubic catheter placement. 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 Paternal History Items: - - Denies known paternal medical history including cardiac history. Review of Systems Constitutional: Denies: Chills, Fever, Weight Change HEENT: Denies: Head Aches, Sinus Congestion, Sinus Drainage Cardiovascular: Denies: Chest Pain, Palpitations Respiratory: Denies: Cough, Shortness of breath at rest, Sputum production Gastrointestinal: Denies: Abdominal Pain, Nausea, Vomiting Genitourinary: Denies: Dysuria Musculoskeletal: Denies: Joint Pain, Joint Tenderness Skin: Denies: Rash, Wounds Neurological: Denies: Numbness, Tingling, Focal weakness Psychiatric: Denies: Anxiety, Depression, Homicidal Ideations, Suicidal Ideations Hematologic/ Lymphatic: Denies: Easy Bruising, Easy Bleeding VTE Information - Inpt Only VTE Present on Admission: No VTE Mechan Device Prophylaxis: Knee High ROMINA Hose VTE Pharm Prophylaxis ordered?: No Reason prophylaxis not ordered:: Medical Contraindication - Physical Exam General: Alert, Oriented x3, Cooperative HEENT: Atraumatic, PERRLA, EOMI, Normocephalic Neck: Supple, No JVD, Negative Carotid Bruits Lungs: Clear to auscultation, Normal air movement Cardiovascular: Regular rate, No murmurs Abdomen: Bowel Sounds Present, Soft, Non Tender, - - Suprapubic catheter. Extremities: No edema, Capillary Refill Less than 3 Seconds Skin: No rashes, No breakdown Musculoskeletal: No Tenderness to Palpation of Joints or Extremities Neurological: Cranial nerves II-XII grossly intact Psych/Mental Status: Normal Affect, Appropriate Vital Signs Temp Pulse Resp BP Pulse Ox 97.8 F 94 22 H 159/96 H 94 02/22/19 14:55 02/22/19 14:55 02/22/19 14:55 02/22/19 14:55 02/22/19 14:55 Oxygen Delivery Method Room Air Weight: 75.296 kg Body Mass Index (BMI) 23.8 Finger Stick Blood Glucose 67 Intake and Output for Last 24 Hours 02/20/19 02/21/19 02/22/19 23:59 23:59 23:59 Intake Total 180 / 180 Balance 180 / 180 Assessment/Plan All Active Problems Dehydration (Acute) Constipation (Acute) Vomiting (Acute) Declining functional status (Acute) Complicated urinary tract infection (Acute) 64 year old female with below past medical history hospitalized for acute complicated urinary tract infection, complicated by dehydration, acute on chronic kidney failure, constipation, admitted to TCU with debility, here for rehabilitation, strengthening, prior to discharge home with spouse. Debility - PT/OT. Pain - Tylenol 1000MG Q8H PRN mild pain. Bowel - Lactulose 40GM every other day, Dulcolax 10MG ND every other day PRN. Pneumonia vaccination - Administer Pneumovax 23. DVT prophylaxis - Hold, resident having bleeding for heparin injections. 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 Neuropathic pain - Elavil 75MG QHS, chronic jail use, hold on GDR, risk of increased pain outweigh benefit of fewer anticholinergic side effects from tricyclic antidepressant. TIA - Aspirin 81MG daily. Hyperlipidemia - Atorvastatin 40MG QHS. Muscle spasm - Baclofen 10MG BID, 20MG QHS. Hyperparathyroidism - Calcitriol 0.25MG QHS. Nutrition - Ensure 120ML 4x/day. Iron deficiency anemia - Ferrex 150MG daily. Hypomagnesemia - Magnesium Oxide 400MG QHS. Insomnia - Melatonin 10MG QHS. Skin irritation - Eucerin BID PRN. Tinea Corporis - Nystatin topical BID.
--- NOTE | 2019-02-22 20:05 | HP.PCM_ITS ---
Problem List (1) Neurogenic bladder Status: Chronic (2) MRSA colonization Status: Chronic (3) Bilateral hydronephrosis Status: Chronic (4) Iron deficiency anemia Status: Chronic (5) Hypomagnesemia Status: Chronic (6) Dehydration Status: Acute (7) Constipation Status: Acute (8) Complicated urinary tract infection Status: Acute Comment: Chronic suprapubic catheter. (9) Muscle spasm Status: Chronic (10) OAB (overactive bladder) Status: Chronic (11) Allergic rhinitis Status: Chronic (12) Insomnia Status: Chronic (13) Hyperlipidemia Status: Chronic Qualifiers: (14) CKD (chronic kidney disease) stage 4, GFR 15-29 ml/min Status: Chronic (15) Transient ischemic attack Status: Chronic Qualifiers: (16) Multiple sclerosis Status: Chronic (17) Right hemiparesis Status: Chronic (18) Migraine headache Status: Chronic Qualifiers: History of Present Illness Date of Admission: 02/22/19 Chief Complaint: Here for rehabilitation, strengthening, prior to discharge home with spouse. The patient is a 64 year old Female with below past medical history presented to [facility] Emergency Department 02/15/2019 with abdominal pain. 02/15/2019 CT abdomen/pelvis showed dilated stomach, constipation, multiple chronic changes. Severe left lower quadrant pain. Nausea treated with IV fluids, Zofran, Phenergan. CT shows constipation. Failed soap suds enema. 02/15/2019 Admit to Hospital. Magnesium citrate for constipation. Consult PT/OT for physical decline, resident usually able to transfer at home. IV fluid hydration for acute on chronic kidney failure. Urine culture pending, no antibiotics, patient colonized. UTI M. Morganii treated with Cefepime, then switched to Rocephin per Dr. Wright. Patient finished course of IV antibiotics, done with antibiotics. Kidney function back to baseline. Insurance [facility], despite peer to peer phone call. Spouse opted to private pay. 02/22/2019 Admit to TCU with debility, here for rehabilitation, strengthening, prior to discharge home with spouse. Past Medical History Past Medical History (Chronic Problems): Chronic Problems Neurogenic bladder (Chronic) MRSA colonization (Chronic) Bilateral hydronephrosis (Chronic) Iron deficiency anemia (Chronic) Hypomagnesemia (Chronic) Hydronephrosis (Chronic) Bilateral. Vitamin D deficiency (Chronic) Muscle spasm (Chronic) OAB (overactive bladder) (Chronic) Allergic rhinitis (Chronic) Insomnia (Chronic) Hyperlipidemia (Chronic) CKD (chronic kidney disease) stage 4, GFR 15-29 ml/min (Chronic) Transient ischemic attack (Chronic) Multiple sclerosis (Chronic) Right hemiparesis (Chronic) Migraine headache (Chronic) Allergies ciprofloxacin [From Cipro] Adverse Reaction (Verified 02/15/19 09:21) hypotension interacts w/ zanaflex and baclofen doxycycline Adverse Reaction (Verified 02/15/19 09:21) hypotension interacts w/ zanaflex and baclofen levofloxacin [From Levaquin] Adverse Reaction (Verified 02/15/19 09:21) hypotension interacts w/ zanaflex and baclofen morphine Adverse Reaction (Verified 02/15/19 09:21) hallucinations piperacillin [From Zosyn] Adverse Reaction (Verified 02/15/19 09:21) hypotension interacts w/ zanaflex and baclofen sulfamethoxazole [From Bactrim] Adverse Reaction (Verified 02/15/19 09:21) hypotension interacts w/ zanaflex and baclofen tazobactam [From Zosyn] Adverse Reaction (Verified 02/15/19 09:21) hypotension interacts w/ zanaflex and baclofen trimethoprim [From Bactrim] Adverse Reaction (Verified 02/15/19 09:21) hypotension interacts w/ zanaflex and baclofen vancomycin Adverse Reaction (Verified 02/15/19 09:21) developed toxic levels Home Medications: Ambulatory Orders Medication Instructions Recorded Aspirin E.C. [Ecotrin] 81 mg PO QHS 12/04/16 Atorvastatin Calcium [Lipitor] 40 mg PO QHS 09/05/17 Iron Polysaccharide Complex 150 mg PO DAILYCM 09/05/17 [Ferrex 150] Magnesium Oxide [Mag-Ox 400] 400 mg PO QHS 09/05/17 Amitriptyline HCl [Elavil] 75 mg PO QHS 09/19/17 Lactulose [Chronulac] 40 gm PO QODAY@2200 09/19/17 Baclofen 20 mg PO QHS 07/01/18 Baclofen [Lioresal] 10 mg PO BID 07/01/18 Bisacodyl [Dulcolax] 10 mg RECTAL QODAY 07/01/18 Calcitriol [Rocaltrol] 0.25 mcg PO QHS 07/01/18 Krill Oil 500 mg PO DAILY 07/01/18 L.acidoph,Paracasei, B.lactis 2 each PO QHS 07/01/18 [Probiotic] ALPRAZolam [Xanax] 0.5 mg PO QHS 02/15/19 Acetaminophen [Tylenol] 1,000 mg PO PRN PRN 02/15/19 Levocetirizine Dihydrochloride 5 mg PO DAILY 02/15/19 [Xyzal] Melatonin 10 mg PO QHS 02/15/19 Vitamin B Complex 1 tab PO DAILY 02/15/19 Surgical History: adenoidectomy, tonsillectomy, - - Right shoulder surgery, ORIF right wrist, suprapubic catheter placement. Psychiatric History: Anxiety RN PROGRESSIVE CARE History: No pertinent RN PROGRESSIVE CARE history Lives: Spouse/ Significant Other Smoking Status: Never smoker Tobacco Use: Non-smoker Alcohol: None Drugs: None - *Family History Maternal History Items: - - Denies known maternal medical history including cardiac history. Paternal History Items: - - Denies known paternal medical history including cardiac history. Review of Systems Constitutional: Denies: Chills, Fever, Weight Change HEENT: Denies: Head Aches, Sinus Congestion, Sinus Drainage Cardiovascular: Denies: Chest Pain, Palpitations Respiratory: Denies: Cough, Shortness of breath at rest, Sputum production Gastrointestinal: Denies: Abdominal Pain, Nausea, Vomiting Genitourinary: Denies: Dysuria Musculoskeletal: Denies: Joint Pain, Joint Tenderness Skin: Denies: Rash, Wounds Neurological: Denies: Numbness, Tingling, Focal weakness Psychiatric: Denies: Anxiety, Depression, Homicidal Ideations, Suicidal Ideations Hematologic/ Lymphatic: Denies: Easy Bruising, Easy Bleeding VTE Information - Inpt Only VTE Present on Admission: No VTE Mechan Device Prophylaxis: Knee High ROMINA Hose VTE Pharm Prophylaxis ordered?: No Reason prophylaxis not ordered:: Medical Contraindication - Physical Exam General: Alert, Oriented x3, Cooperative HEENT: Atraumatic, PERRLA, EOMI, Normocephalic Neck: Supple, No JVD, Negative Carotid Bruits Lungs: Clear to auscultation, Normal air movement Cardiovascular: Regular rate, No murmurs Abdomen: Bowel Sounds Present, Soft, Non Tender, - - Suprapubic catheter. Extremities: No edema, Capillary Refill Less than 3 Seconds Skin: No rashes, No breakdown Musculoskeletal: No Tenderness to Palpation of Joints or Extremities Neurological: Cranial nerves II-XII grossly intact Psych/Mental Status: Normal Affect, Appropriate Vital Signs Temp Pulse Resp BP Pulse Ox 97.8 F 94 22 H 159/96 H 94 02/22/19 14:55 02/22/19 14:55 02/22/19 14:55 02/22/19 14:55 02/22/19 14:55 Oxygen Delivery Method Room Air Weight: 75.296 kg Body Mass Index (BMI) 23.8 Finger Stick Blood Glucose 67 Intake and Output for Last 24 Hours 02/20/19 02/21/19 02/22/19 23:59 23:59 23:59 Intake Total 180 / 180 Balance 180 / 180 Assessment/Plan All Active Problems Dehydration (Acute) Constipation (Acute) Vomiting (Acute) Declining functional status (Acute) Complicated urinary tract infection (Acute) 64 year old female with below past medical history hospitalized for acute complicated urinary tract infection, complicated by dehydration, acute on chronic kidney failure, constipation, admitted to TCU with debility, here for rehabilitation, strengthening, prior to discharge home with spouse. * Debility - PT/OT. * Pain - Tylenol 1000MG Q8H PRN mild pain. * Bowel - Lactulose 40GM every other day, Dulcolax 10MG NC every other day PRN. * Pneumonia vaccination - Administer Pneumovax 23. * DVT prophylaxis - Hold, resident having bleeding for heparin injections. * Anxiety - Xanax 0.5MG QHS, chronic care home use, hold on GDR, risk of withdrawal outweigh benefits of being off BZD. * Neuropathic pain - Elavil 75MG QHS, chronic rn long term care use, hold on GDR, risk of increased pain outweigh benefit of fewer anticholinergic side effects from tricyclic antidepressant. * TIA - Aspirin 81MG daily. * Hyperlipidemia - Atorvastatin 40MG QHS. * Muscle spasm - Baclofen 10MG BID, 20MG QHS. * Hyperparathyroidism - Calcitriol 0.25MG QHS. * Nutrition - Ensure 120ML 4x/day. * Iron deficiency anemia - Ferrex 150MG daily. * Hypomagnesemia - Magnesium Oxide 400MG QHS. * Insomnia - Melatonin 10MG QHS. * Skin irritation - Eucerin BID PRN. * Tinea Corporis - Nystatin topical BID.
[2019-02-22] MEDS: ALPRAZolam 0.5 MG Tablet PO (21:38)
[2019-02-22] MEDS: Aspirin E.C. 81 MG Tablet PO (21:39)
[2019-02-22] MEDS: Magnesium Oxide 400 MG Tablet PO (21:39)
[2019-02-22] MEDS: Amitriptyline 25 MG Tablet 75 MG PO (21:40)
[2019-02-22] MEDS: Atorvastatin Calcium 40 MG Tablet PO (21:41)
[2019-02-22] MEDS: Baclofen 10 MG Tablet 20 MG PO (21:41)
[2019-02-22] MEDS: MELATONIN 10 MG TABLET PO (21:41)
[2019-02-22] MEDS: Calcitriol 0.25 MCG Capsule PO (21:42)
[2019-02-22] MEDS: 0.9% NaCl VAD Flush 10 ML IV (21:52)
[2019-02-22] MEDS: Nystatin Powder 15gm Bottle 1 APPLIC TOPICAL (21:55)
[2019-02-23 04:36] LABS: Absolute Lymphocyte Count 1.74 X10^3/ul (0.83-4.51); Absolute Neutrophil Count 4.7 X10^3/uL (2.0-7.7); Basophil# 0.03 X10^3/uL; Basophil% 0.4 % (0-1); Eosinophil# 0.25 X10^3/uL; Eosinophils% 3.2 % (0-5); Hematocrit 34.3 % (37-47); Lymphocyte # 1.74 X10^3/ul (4.0); Lymphocyte % 22.3 % (19-41); Mean Corp Hgb Conc 32.1 g/gl (32-36); Mean Corpuscular Volume 90.5 fL (81-99); Mean Platelet Vol. 9.7 fl (6.2-12.0); Monocyte# 1.07 X10^3/uL; Monocyte% 13.7 % (0-10); Neutrophil # 4.71 X10^3/uL (2.7-7.7); Neutrophil % 60.3 % (47-70); Platelet Count 161 K/mm3 (150-450); RBC Distribution Width CV 16.5 % (11.6-14.6); RBC Distribution Width SD 53.1 fl (35.1-43.9); Red Blood Count 3.79 M/mm3 (4.2-5.4); White Blood Count 7.8 K/mm3 (4.4-11.0)
[2019-02-23 04:37] LABS: POSITIVE COUNT NO; POSITIVE DIFFERENTIAL NO; POSITIVE MORPHOLOGY NO
[2019-02-23 04:47] LABS: Anion Gap 5 (5-15); BUN 19 mg/dL (7-18); BUN/Creat Ratio 11.9 RATIO (10-20); Calcium,Total 8.6 mg/dL (8.5-10.1); Chloride 107 mmol/L (98-107); Creatinine, Serum 1.59 mg/dL (0.55-1.02); EST Glomerular Filtration Rate 35 mL/min (>60); Est Glom Filt Rate - Afr Amer 42 mL/min (>60); Estimated Creatinine Clearance 38.65 ml/min; Glucose 88 mg/dL (74-106); Potassium 3.6 mmol/L (3.5-5.1); Sodium Level 141 mmol/L (136-145)
[2019-02-23] MEDS: Baclofen 10 MG Tablet PO ×2 (06:45→13:59)
[2019-02-23] MEDS: Loratadine 10 MG Tablet 5 MG PO (06:45)
[2019-02-23] MEDS: Nystatin Powder 15gm Bottle 1 APPLIC TOPICAL ×2 (06:45→20:24)
[2019-02-23] MEDS: Iron Polysaccharide Complex 150 MG CAPSULE PO (07:52)
[2019-02-23] MEDS: Tuberculin,Purif.prot.deriv. 50 TU/ML Vial 5 ML ID (11:34)
--- NOTE | 2019-02-23 12:05 | NURSING ---
stated pt already had Pneumovax [address] Carranza PCP to obtain vaccination date. Kulwant SU aware.
[2019-02-23 15:59] VITALS: BP 130/87; PULSE 101; RESP 18; TEMP 36.7; O2SAT 94
--- NOTE | 2019-02-23 20:00 | NURSING ---
pt's requesting pt not to be turned during the night. RN checked with pt and she stated she is comfortable at this time.
[2019-02-23] MEDS: Baclofen 10 MG Tablet 20 MG PO (20:22)
[2019-02-23] MEDS: ALPRAZolam 0.5 MG Tablet PO (20:22)
[2019-02-23] MEDS: Atorvastatin Calcium 40 MG Tablet PO (20:22)
[2019-02-23] MEDS: Calcitriol 0.25 MCG Capsule PO (20:22)
[2019-02-23] MEDS: Amitriptyline 25 MG Tablet 75 MG PO (20:23)
[2019-02-23] MEDS: Magnesium Oxide 400 MG Tablet PO (20:23)
[2019-02-23] MEDS: Aspirin E.C. 81 MG Tablet PO (20:23)
[2019-02-23] MEDS: Lactulose 20 GM/30 ML UDC 40 GM PO (20:23)
[2019-02-23] MEDS: MELATONIN 10 MG TABLET PO (20:24)
[2019-02-24] MEDS: Baclofen 10 MG Tablet PO ×2 (06:03→13:25)
[2019-02-24] MEDS: Nystatin Powder 15gm Bottle 1 APPLIC TOPICAL ×2 (06:04→21:17)
[2019-02-24] MEDS: Loratadine 10 MG Tablet 5 MG PO (06:04)
[2019-02-24] MEDS: Iron Polysaccharide Complex 150 MG CAPSULE PO (07:54)
[2019-02-24 16:00] VITALS: BP 129/74; PULSE 99; RESP 16; TEMP 36.8; O2SAT 90
[2019-02-24] MEDS: Calcitriol 0.25 MCG Capsule PO (21:15)
[2019-02-24] MEDS: Atorvastatin Calcium 40 MG Tablet PO (21:16)
[2019-02-24] MEDS: Magnesium Oxide 400 MG Tablet PO (21:16)
[2019-02-24] MEDS: MELATONIN 10 MG TABLET PO (21:16)
[2019-02-24] MEDS: Aspirin E.C. 81 MG Tablet PO (21:17)
[2019-02-24] MEDS: Baclofen 10 MG Tablet 20 MG PO (21:17)
[2019-02-24] MEDS: ALPRAZolam 0.5 MG Tablet PO (21:17)
[2019-02-24] MEDS: Amitriptyline 25 MG Tablet 75 MG PO (21:17)
--- NOTE | 2019-02-25 06:52 | NURSING ---
Second attempt to administer 0600 meds to pt this AM. Pt would not open eyes or drink out of straw from water jug from being too tired. Pt was awake after 0100 this morning. Pt would like to sleep longer. Will attempt to administer medications when the pt becomes more awake.
[2019-02-25 10:00] VITALS: PULSE 86
--- NOTE | 2019-02-25 11:10 | NURSING ---
Pt sleeping at this time, Pt Does NOT want Pt awakened at this time. Pt will notify this nurse when Pt wakes up on her own and can take her medication. Fadumo SU aware
[2019-02-25] MEDS: Bisacodyl 10 MG Suppository RECTAL (13:07)
--- NOTE | 2019-02-25 14:36 | NURSING ---
Pt refusing to let this nurse insert Pt suppository, requested that he do it. Fadumo SU aware
[2019-02-25] MEDS: Baclofen 10 MG Tablet 20 MG PO (15:10)
[2019-02-25] MEDS: Iron Polysaccharide Complex 150 MG CAPSULE PO (15:11)
[2019-02-25] MEDS: Baclofen 10 MG Tablet PO (15:17)
[2019-02-25 15:38] VITALS: BP 139/75; PULSE 88; RESP 20; TEMP 36.6; O2SAT 97
--- NOTE | 2019-02-25 15:40 | NURSING ---
Addendum entered by Fadumo Ricci 02/25/19 15:52: Dr Feng notified, new orders received. IV 0.9 NS at 100cc/hr x1 liter only. mag citrate 300mg now and at HS. chest xray and nectar thick liquids per request. Original Note: This nurse into access Pt and Pt stating that Pt is having increased difficulty in swallow thin liquids, and that Pt hasn't been able to eat this day. Pt given a suppository with zero results. Pt requesting that Pt be given Mag citrate x2. Pt would also like Pt to have IV fluids stated and he is requested she be on thickened liquids. Pt took her medications for this nurse whole in applesauce without complication, this nurse observed Pt drinking without issue until loudly stated to PT you know you cough and cannot swallow thin liquids after that Pt began to cough. Pt only doing what tells her to do. Fadumo SU aware
--- NOTE | 2019-02-25 16:40 | RAD_ITS ---
STUDY: X-RAY CHEST REASON FOR EXAM: Female, 64 years old. Cough TECHNIQUE: AP and lateral views of the chest. COMPARISON: 07/03/2018 FINDINGS: Left chest port is stable. Persistent significant elevation of the right hemidiaphragm stable since the prior study. There is no demonstrated pleural abnormality. Normal size heart. Normal mediastinum and ramy. Normal visualized pulmonary arteries. There is atherosclerotic tortuosity of the aortic arch and descending thoracic aorta. There is demineralization of the osseous structures. Normal visualized ribs, clavicles, and shoulders. Air and fecal retention of the colon (particularly below the right hemidiaphragm) similar since prior study. RAD/Chest PA and Lateral IMPRESSION: 1. No airspace consolidation. Similar appearance since 07/03/2018. 2. Persistent elevation of the right hemidiaphragm with copious intracolonic air and stool. Electronically Signed: Juancarlos Whitman MD at 17:04 EDT , Service support ,
[2019-02-25] MEDS: Magnesium Citrate 300 ML PO ×2 (17:59→21:43)
[2019-02-25] MEDS: Loratadine 10 MG Tablet 5 MG PO (18:58)
[2019-02-25] MEDS: 0.9% Normal Saline 1,000 ML 100 ML IV (20:00)
[2019-02-25] MEDS: Lactulose 20 GM/30 ML UDC 40 GM PO (21:40)
[2019-02-25] MEDS: Magnesium Oxide 400 MG Tablet PO (21:41)
[2019-02-25] MEDS: Calcitriol 0.25 MCG Capsule PO (21:41)
[2019-02-25] MEDS: Amitriptyline 25 MG Tablet 75 MG PO (21:42)
[2019-02-25] MEDS: Aspirin E.C. 81 MG Tablet PO (21:42)
[2019-02-25] MEDS: MELATONIN 10 MG TABLET PO (21:42)
[2019-02-25] MEDS: Atorvastatin Calcium 40 MG Tablet PO (21:42)
[2019-02-25] MEDS: Nystatin Powder 15gm Bottle 1 APPLIC TOPICAL (21:43)
[2019-02-25] MEDS: ALPRAZolam 0.5 MG Tablet PO (21:45)
[2019-02-26] MEDS: Nystatin Powder 15gm Bottle 1 APPLIC TOPICAL (05:13)
[2019-02-26] MEDS: Baclofen 10 MG Tablet PO ×2 (05:13→14:24)
[2019-02-26] MEDS: 0.9% NaCl VAD Flush 10 ML IV (06:14)
[2019-02-26] MEDS: Iron Polysaccharide Complex 150 MG CAPSULE PO (07:36)
--- NOTE | 2019-02-26 08:58 | NURSING ---
beater operator stating that pt requested breakfast stating she was hungry, pt starting to get her set up for breakfast and came to room and upset because he wanted to feed her prunes and yogurt prior to breakfast. Pt states she is not in her right mind to ask for breakfast., pt ringing call light appropriately all morning.
--- NOTE | 2019-02-26 12:41 | NURSING ---
speech evaled pt swallowing and will keep pt on nectar for now. at bedside and aware.
[2019-02-26 15:26] VITALS: BP 133/78; PULSE 93; RESP 20; TEMP 36.9; O2SAT 92
[2019-02-26] MEDS: Loratadine 10 MG Tablet 5 MG PO (17:53)
[2019-02-26] MEDS: Fluticasone 0.05% 1 SPRAY NASAL.SRY NASAL (19:10)
--- NOTE | 2019-02-26 19:21 | RAD_ITS ---
STUDY: X-RAY CHEST REASON FOR EXAM: Female, 64 years old. Fever. TECHNIQUE: PA and lateral views of the chest. COMPARISON: July 03, 2018 and February 25, 2019. FINDINGS: Sided Mediport catheter in position. Cardiac silhouette unremarkable. Pulmonary vascularity unremarkable. Aorta minimally calcified. Markedly elevated right hemidiaphragm with persistent basilar airspace disease. No new focal patchy airspace opacities or pleural effusions. No pneumothorax. COPD. Stable distended bowel gas pattern. Osseous structures are slightly demineralized. No pneumothorax. Degenerative changes of the shoulders and spine. RAD/Chest PA and Lateral IMPRESSION: No new focal patchy airspace opacities or pleural effusions Persistent elevated right hemidiaphragm with persistent basilar airspace disease Electronically Signed: Mohit Kemp DO at 20:11 EDT Tel , Service support ,
--- NOTE | 2019-02-26 19:31 | NURSING ---
pt to desk at shift change & reported pt felt like she was running a fever and stated he was leaving for night. Temp checked at 101.[address] Feng notified, new orders received. Will update with results.
[2019-02-26 20:05] LABS: Absolute Lymphocyte Count 1.68 X10^3/ul (0.83-4.51); Absolute Neutrophil Count 7.7 X10^3/uL (2.0-7.7); Basophil# 0.03 X10^3/uL; Basophil% 0.3 % (0-1); Differential Indicated SCAN CRITERIA MET; Eosinophil# 0.11 X10^3/uL; Hematocrit 36.4 % (37-47); Hemoglobin 11.4 g/dl (12.0-15.0); Lymphocyte # 1.68 X10^3/ul (4.0); Lymphocyte % 15.6 % (19-41); Mean Corp Hgb Conc 31.3 g/gl (32-36); Mean Corpuscular Hgb 29.3 pg (27.0-32.0); Mean Corpuscular Volume 93.6 fL (81-99); Mean Platelet Vol. 9.7 fl (6.2-12.0); Monocyte# 1.22 X10^3/uL; Monocyte% 11.4 % (0-10); Neutrophil # 7.69 X10^3/uL (2.7-7.7); Neutrophil % 71.6 % (47-70); POSITIVE COUNT NO; POSITIVE DIFFERENTIAL NO; POSITIVE MORPHOLOGY YES; Platelet Count 192 K/mm3 (150-450); RBC Distribution Width CV 16.7 % (11.6-14.6); RBC Distribution Width SD 57.3 fl (35.1-43.9); Red Blood Count 3.89 M/mm3 (4.2-5.4); White Blood Count 10.7 K/mm3 (4.4-11.0)
[2019-02-26 20:11] LABS: Anion Gap 6 (5-15); BUN 33 mg/dL (7-18); Calcium,Total 9.3 mg/dL (8.5-10.1); Chloride 108 mmol/L (98-107); Creatinine, Serum 2.36 mg/dL (0.55-1.02); EST Glomerular Filtration Rate 22 mL/min (>60); Est Glom Filt Rate - Afr Amer 27 mL/min (>60); Estimated Creatinine Clearance 26.04 ml/min; Glucose 112 mg/dL (74-106); Potassium 4.5 mmol/L (3.5-5.1); Sodium Level 147 mmol/L (136-145)
--- NOTE | 2019-02-26 20:15 | NURSING ---
Addendum entered by Melissa Mac 02/26/19 20:49: Report given to ER, pt sent down to ER. Head Librarian and pts , Siva notified and updated on all. Original Note: Pts vitals bp 146/84, HR 107, temp 103.1, 92% on 3L, resp 22. Dr. Feng aware, and new order to send to ER.
[2019-02-26 20:20] LABS: Differential Comment SCANNED
[2019-02-26 20:36] LABS: Mucous, Urine 0 SEEN /hpf (<or=2+); Squamous Epithelial Cells - UA 0 SEEN /hpf (5-10)
[2019-02-26 20:42] LABS: Color, Urine Yellow (Yellow); Glucose, Dipstick Normal (Normal); Ketone-Dipstick Negative (Negative); Leukocyte Esterase-Dipstick 500 /ul (Negative); Nitrite-Dipstick Positive (Negative); Occult Blood-Urine 250 /ul (Negative); Protein-Dipstick 30 mg/dl (Negative); Specific Gravity, Urine 1.015 (1.002-1.030); Urine Bilirubin Dipstick Negative (Negative); Urine Clarity Cloudy (Clear); Urine Urobilinogen Normal (Normal)
[2019-02-26 20:49] LABS: Bacteria 3+ /hpf (None Seen); Red Blood Cells-Urine 0-5 SEEN /hpf (0-5); White Blood Cells 25-50 SEEN /hpf (0-5)
--- NOTE | 2019-02-27 09:13 | PCM.DC ---
You will use the following diet at home:: No restrictions, Regular Your food should be the consistency of: Regular Your liquids should be the consistency of: Regular/Thin Discharge Activity: Return to Normal Activity Weight Bearing Status: No weight bearing Call your doctor if you observe: Inability to urinate, Inability to have a bowel movement, Shortness of breath, Chest pain, Uncontrolled pain Allergies/Adverse Reactions: Allergies ciprofloxacin [From Cipro] Adverse Reaction (Verified 02/26/19 20:55) hypotension interacts w/ zanaflex and baclofen doxycycline Adverse Reaction (Verified 02/26/19 20:55) hypotension interacts w/ zanaflex and baclofen levofloxacin [From Levaquin] Adverse Reaction (Verified 02/26/19 20:55) hypotension interacts w/ zanaflex and baclofen morphine Adverse Reaction (Verified 02/26/19 20:55) hallucinations piperacillin [From Zosyn] Adverse Reaction (Verified 02/26/19 20:55) hypotension interacts w/ zanaflex and baclofen sulfamethoxazole [From Bactrim] Adverse Reaction (Verified 02/26/19 20:55) hypotension interacts w/ zanaflex and baclofen tazobactam [From Zosyn] Adverse Reaction (Verified 02/26/19 20:55) hypotension interacts w/ zanaflex and baclofen trimethoprim [From Bactrim] Adverse Reaction (Verified 02/26/19 20:55) hypotension interacts w/ zanaflex and baclofen vancomycin Adverse Reaction (Verified 02/26/19 20:55) developed toxic levels Medications to take at Discharge Aspirin E.C. [Ecotrin] 81 mg PO QHS 12/04/16 Atorvastatin Calcium [Lipitor] 40 mg PO QHS 09/05/17 Iron Polysaccharide Complex [Ferrex 150] 150 mg PO DAILYCM 09/05/17 Magnesium Oxide [Mag-Ox 400] 400 mg PO QHS 09/05/17 Amitriptyline HCl [Elavil] 75 mg PO QHS 09/19/17 Lactulose [Chronulac] 40 gm PO QODAY@2200 09/19/17 Baclofen 20 mg PO QHS 07/01/18 Baclofen [Lioresal] 10 mg PO BID 07/01/18 Bisacodyl [Dulcolax] 10 mg RECTAL QODAY 07/01/18 Calcitriol [Rocaltrol] 0.25 mcg PO QHS 07/01/18 ALPRAZolam [Xanax] 0.5 mg PO QHS 02/15/19 Acetaminophen [Tylenol] 1,000 mg PO PRN PRN 02/15/19 Melatonin 10 mg PO QHS 02/15/19 Fluticasone 0.05% [Flonase Nasal [place]] 1 spray NASAL BID 02/26/19 Loratadine 5 mg PO DAILY@1800 02/26/19 Mineral Oil/Petrolatum,White [Eucerin] 1 applic TOPICAL BID PRN PRN 02/26/19 Nystatin Powder [Mycostatin Powder] 1 applic TOPICAL BID 02/26/19 Primary Care Physician: Alexandria Carranza MD [Primary Care Provider] - Please follow up with your Primary Care Physician in: 1 week Test Results: Test results from this visit will be discussed in further detail at your follow-up appointment, if applicable. Proposed Discharge Date: 02/26/19
--- NOTE | 2019-02-27 09:17 | DCINST_ITS ---
You will use the following diet at home:: No restrictions, Regular Your food should be the consistency of: Regular Your liquids should be the consistency of: Regular/Thin Discharge Activity: Return to Normal Activity Weight Bearing Status: No weight bearing Call your doctor if you observe: Inability to urinate, Inability to have a bowel movement, Shortness of breath, Chest pain, Uncontrolled pain Allergies/Adverse Reactions: Allergies ciprofloxacin [From Cipro] Adverse Reaction (Verified 02/26/19 20:55) hypotension interacts w/ zanaflex and baclofen doxycycline Adverse Reaction (Verified 02/26/19 20:55) hypotension interacts w/ zanaflex and baclofen levofloxacin [From Levaquin] Adverse Reaction (Verified 02/26/19 20:55) hypotension interacts w/ zanaflex and baclofen morphine Adverse Reaction (Verified 02/26/19 20:55) hallucinations piperacillin [From Zosyn] Adverse Reaction (Verified 02/26/19 20:55) hypotension interacts w/ zanaflex and baclofen sulfamethoxazole [From Bactrim] Adverse Reaction (Verified 02/26/19 20:55) hypotension interacts w/ zanaflex and baclofen tazobactam [From Zosyn] Adverse Reaction (Verified 02/26/19 20:55) hypotension interacts w/ zanaflex and baclofen trimethoprim [From Bactrim] Adverse Reaction (Verified 02/26/19 20:55) hypotension interacts w/ zanaflex and baclofen vancomycin Adverse Reaction (Verified 02/26/19 20:55) developed toxic levels Medications to take at Discharge Aspirin E.C. [Ecotrin] 81 mg PO QHS 12/04/16 Atorvastatin Calcium [Lipitor] 40 mg PO QHS 09/05/17 Iron Polysaccharide Complex [Ferrex 150] 150 mg PO DAILYCM 09/05/17 Magnesium Oxide [Mag-Ox 400] 400 mg PO QHS 09/05/17 Amitriptyline HCl [Elavil] 75 mg PO QHS 09/19/17 Lactulose [Chronulac] 40 gm PO QODAY@2200 09/19/17 Baclofen 20 mg PO QHS 07/01/18 Baclofen [Lioresal] 10 mg PO BID 07/01/18 Bisacodyl [Dulcolax] 10 mg RECTAL QODAY 07/01/18 Calcitriol [Rocaltrol] 0.25 mcg PO QHS 07/01/18 ALPRAZolam [Xanax] 0.5 mg PO QHS 02/15/19 Acetaminophen [Tylenol] 1,000 mg PO PRN PRN 02/15/19 Melatonin 10 mg PO QHS 02/15/19 Fluticasone 0.05% [Flonase Nasal [place]] 1 spray NASAL BID 02/26/19 Loratadine 5 mg PO DAILY@1800 02/26/19 Mineral Oil/Petrolatum,White [Eucerin] 1 applic TOPICAL BID PRN PRN 02/26/19 Nystatin Powder [Mycostatin Powder] 1 applic TOPICAL BID 02/26/19 Primary Care Physician: Alexandria Carranza MD [Primary Care Provider] - Please follow up with your Primary Care Physician in: 1 week Test Results: Test results from this visit will be discussed in further detail at your follow- up appointment, if applicable. Proposed Discharge Date: 02/26/19
--- NOTE | 2019-02-27 09:17 | PCM.DC.SUM ---
Discharge Date and Diagnosis Date of Admission: 02/22/19 Date of Discharge: 02/26/19 - Secondary Discharge Diagnosis Chronic Problems Neurogenic bladder (Chronic) MRSA colonization (Chronic) Bilateral hydronephrosis (Chronic) Iron deficiency anemia (Chronic) Hypomagnesemia (Chronic) Hydronephrosis (Chronic) Bilateral. Vitamin D deficiency (Chronic) Muscle spasm (Chronic) OAB (overactive bladder) (Chronic) Allergic rhinitis (Chronic) Insomnia (Chronic) Hyperlipidemia (Chronic) CKD (chronic kidney disease) stage 4, GFR 15-29 ml/min (Chronic) Transient ischemic attack (Chronic) Multiple sclerosis (Chronic) Right hemiparesis (Chronic) Migraine headache (Chronic) Hospital Course and Treatment Operations: None Procedures: None Summary of Care Provided: The patient is a 64 year old Female with below past medical history hospitalized for acute complicated urinary tract infection, complicated by dehydration, acute on chronic kidney failure, constipation, admitted to TCU with debility, here for rehabilitation, strengthening, prior to discharge home with spouse. Resident developed high fever, due to multiple comorbidities, not stable to treat on TCU floor, discharge to [facility] Emergency Department for evaluation, admission to Hospital. - Physical Exam Vital Signs Temp Pulse Resp BP Pulse Ox 98.5 F 93 20 H 133/78 H 92 02/26/19 15:26 02/26/19 15:26 02/26/19 15:26 02/26/19 15:26 02/26/19 15:26 Oxygen Flow Rate (L/min) 2 Oxygen Delivery Method Nasal Cannula Weight: 75.296 kg Body Mass Index (BMI) 23.8 Finger Stick Blood Glucose 67 Intake and Output for Last 24 Hours 02/25/19 02/26/19 02/27/19 23:59 23:59 23:59 Intake Total 360 / 360 2280 / 2280 Output Total 2049 / 2049 Balance -1690 / -1690 230 / 230 Laboratory Tests Past 24 Hrs 02/26/19 02/26/19 02/26/19 19:38 19:38 20:30 WBC 10.7 RBC 3.89 L Hgb 11.4 L Hct 36.4 L MCV 93.6 MCH 29.3 MCHC 31.3 L RDW 16.7 H RDW Differential 57.3 H Plt Count 192 MPV 9.7 Immature Gran % (Auto) 0.100 Neut % (Auto) 71.6 H Lymph % (Auto) 15.6 L [place] % (Auto) 11.4 H Eos % (Auto) 1.0 Baso % (Auto) 0.3 Absolute Neuts (auto) 7.7 Absolute Lymphs (auto) 1.68 Total Counted Not Reportable Differential Comment SCANNED Sodium 147 H Potassium 4.5 Chloride 108 H Carbon Dioxide 33.0 H Anion Gap 6 BUN 33 H Creatinine 2.36 H Estim Creat Clear Calc 26.04 Est GFR (MDRD) Af Amer 27 L Est GFR (MDRD) Non-Af 22 L BUN/Creatinine Ratio 14.0 Glucose 112 H Calcium 9.3 Urine Color Yellow Urine Clarity Cloudy Urine pH 8.0 Ur Specific [place] 1.015 Urine Protein 30 H Urine Glucose (UA) Normal Urine Ketones Negative Urine Occult Blood 250 H Urine Nitrite Positive H Urine Bilirubin Negative Urine Urobilinogen Normal Ur Leukocyte Esterase 500 H Urine RBC 0-5 SEEN Urine WBC 25-50 SEEN Ur Squamous Epith Cells 0 SEEN Urine Bacteria 3+ Urine Mucus 0 SEEN Discharge Diet: No Restrictions Discharge Activity: Return to Normal Activity Weight Bearing Status: No weight bearing Call your doctor if you observe: Inability to urinate, Inability to have a bowel movement, Shortness of breath, Chest pain, Uncontrolled pain Home Medications: Medications to take at Discharge Aspirin E.C. [Ecotrin] 81 mg PO QHS 12/04/16 Atorvastatin Calcium [Lipitor] 40 mg PO QHS 09/05/17 Iron Polysaccharide Complex [Ferrex 150] 150 mg PO DAILYCM 09/05/17 Magnesium Oxide [Mag-Ox 400] 400 mg PO QHS 09/05/17 Amitriptyline HCl [Elavil] 75 mg PO QHS 09/19/17 Lactulose [Chronulac] 40 gm PO QODAY@2200 09/19/17 Baclofen 20 mg PO QHS 07/01/18 Baclofen [Lioresal] 10 mg PO BID 07/01/18 Bisacodyl [Dulcolax] 10 mg RECTAL QODAY 07/01/18 Calcitriol [Rocaltrol] 0.25 mcg PO QHS 07/01/18 ALPRAZolam [Xanax] 0.5 mg PO QHS 02/15/19 Acetaminophen [Tylenol] 1,000 mg PO PRN PRN 02/15/19 Melatonin 10 mg PO QHS 02/15/19 Fluticasone 0.05% [Flonase Nasal [place]] 1 spray NASAL BID 02/26/19 Loratadine 5 mg PO DAILY@1800 02/26/19 Mineral Oil/Petrolatum,White [Eucerin] 1 applic TOPICAL BID PRN PRN 02/26/19 Nystatin Powder [Mycostatin Powder] 1 applic TOPICAL BID 02/26/19 Primary Care Physician: Alexandria Carranza MD [Primary Care Provider] - Please follow up with your Primary Care Physician in: 1 week Disposition: Acute care Hospital Minutes spent on discharge:: 30 Patient Condition:: Guarded Medical Necessity - Tobacco Use Smoking Status: Never smoker Tobacco Use: Non-smoker Meaningful Use Info Meaningful Use Diagnoses (Choose all that apply): None applicable
--- NOTE | 2019-03-01 12:22 | MDS.RN ---
Information for the mds was obtained from review of the clinical record, interview of resident, staff, and direct observation of resident's care.
== END 2019-02-27 03:10 | disposition short-term general hospital (02) | DRG 948 ==
PROVIDERS: Admitting Provider Family Medicine Geriatric Medicine; Family Provider Internal Medicine; PCP Internal Medicine; Referring Provider Family Medicine Geriatric Medicine; Visit Provider Family Medicine Geriatric Medicine
DX: R53.81 Other malaise (principal); N18.4 Chronic kidney disease, stage 4 (severe); G81.91 Hemiplegia, unspecified affecting right dominant side; D50.9 Iron deficiency anemia, unspecified; E78.5 Hyperlipidemia, unspecified; E21.3 Hyperparathyroidism, unspecified; F41.9 Anxiety disorder, unspecified; B35.4 Tinea corporis; Z87.440 Personal history of urinary (tract) infections; N31.9 Neuromuscular dysfunction of bladder, unspecified; Z86.14 Personal history of Methicillin resistant Staphylococcus aureus infection; N32.81 Overactive bladder; G35 Multiple sclerosis; G43.909 Migraine, unspecified, not intractable, without status migrainosus; M62.838 Other muscle spasm
CPT/HCPCS: 71046; 80048; 81001; 85025; 87040; 87077; 87086; 87088; 87186; 87633; 92523; 92610; 97110; 97163; 97166; 97530; 97535; 97802; J7030; A4216

== ENCOUNTER 2019-02-26 20:38 | Inpatient (IN) | payer MEDICARE, SELFPAY ==
[2019-02-26 20:38] VITALS: BP 159/76; PULSE 109; RESP 17; TEMP 38.9; O2SAT 92; BMI 23.0
--- NOTE | 2019-02-26 21:23 | EKG12_ITS ---
Test Reason : SOB Blood Pressure : / mmHG Vent. Rate : 114 BPM Atrial Rate : 114 BPM P-R Int : 142 ms QRS Dur : 096 ms QT Int : 352 ms P-R-T Axes : 045 066 019 degrees QTc Int : 485 ms Sinus tachycardia Otherwise normal ECG Confirmed by VITOR RAMÍREZ, JAZMIN ([id number]), dictionary editor OZZIE MG ([id number]) on 03/01/2019 9:14:35 AM Referred By: Chava Feng Confirmed By:JAZMIN ADLER MD
[2019-02-26 21:34] VITALS: O2SAT 92
[2019-02-26 21:40] LABS: Absolute Lymphocyte Count 2.05 X10^3/ul (0.83-4.51); Absolute Neutrophil Count 7.6 X10^3/uL (2.0-7.7); Basophil# 0.03 X10^3/uL; Basophil% 0.3 % (0-1); Eosinophil# 0.11 X10^3/uL; Hematocrit 36.3 % (37-47); Hemoglobin 11.9 g/dl (12.0-15.0); Lymphocyte # 2.05 X10^3/ul (4.0); Lymphocyte % 18.8 % (19-41); Mean Corp Hgb Conc 32.8 g/gl (32-36); Mean Corpuscular Hgb 30.2 pg (27.0-32.0); Mean Corpuscular Volume 92.1 fL (81-99); Monocyte# 1.06 X10^3/uL; Monocyte% 9.7 % (0-10); Neutrophil # 7.64 X10^3/uL (2.7-7.7); Neutrophil % 70.1 % (47-70); Platelet Count 192 K/mm3 (150-450); RBC Distribution Width CV 16.5 % (11.6-14.6); RBC Distribution Width SD 56.2 fl (35.1-43.9); Red Blood Count 3.94 M/mm3 (4.2-5.4); White Blood Count 10.9 K/mm3 (4.4-11.0)
[2019-02-26 21:41] LABS: Differential Indicated SCAN CRITERIA MET; POSITIVE COUNT NO; POSITIVE DIFFERENTIAL NO; POSITIVE MORPHOLOGY YES
[2019-02-26 21:45] LABS: Prothrombin Time (Protime)PT. 13.2 SECONDS (11.7-14.9)
[2019-02-26 21:46] LABS: Partial Thromboplast Time 32.5 Seconds (24.1-36.2)
[2019-02-26] MEDS: Acetaminophen 500 MG Tablet 1000 MG PO (21:51)
[2019-02-26] MEDS: 0.9% Normal Saline 1,000 ML IV.SOLN. 500 ML IV (21:51)
[2019-02-26 21:55] LABS: ALB/GLOB Ratio 0.7 RATIO (0.9-2.4); AST(SGOT) 50 U/L (15-37); Alanine Aminotransfer ALT/SGPT 55 U/L (13-56); Albumin, Serum 3.1 g/dL (3.2-5.0); Alkaline Phosphatase 129 U/L (45-117); Anion Gap 5 (5-15); BUN 33 mg/dL (7-18); BUN/Creat Ratio 14.9 RATIO (10-20); Calcium,Total 9.2 mg/dL (8.5-10.1); Chloride 107 mmol/L (98-107); Creatinine, Serum 2.21 mg/dL (0.55-1.02); EST Glomerular Filtration Rate 24 mL/min (>60); Est Glom Filt Rate - Afr Amer 29 mL/min (>60); Estimated Creatinine Clearance 27.81 ml/min; Globulin 4.7 g/dL (2.2-4.2); Glucose 109 mg/dL (74-106); Potassium 4.6 mmol/L (3.5-5.1); Protein, Total 7.8 g/dL (6.4-8.2); Sodium Level 143 mmol/L (136-145)
[2019-02-26 22:42] VITALS: BP 107/84; PULSE 106; RESP 22
--- NOTE | 2019-02-26 23:00 | ED.VISSUMM ---
- ER Visit Summary Date of Service: 02/26/19 Chief Complaint: Fever History of Present Illness: The patient is a 64 F who was admitted to the TCU. She was admitted for abdominal pain, constipation, and vomiting. She was sent to the ED today for evaluation. She has a fever with a cough. The cough is been going on for a few days. She has no other complaints. She has a suprapubic catheter and a left chest wall port. She denies upper respiratory symptoms, chest pain, abdominal pain or GI symptoms. She denies rash. She is not currently on antibiotics. Patient has a history of MS and right hemiparesis among her other chronic medical issues. Physical Examination: Temperature 102. Heart rate 109. Blood pressure 159/76. HEENT exam unremarkable. Heart slightly tachycardic but regular. Left chest wall port is noted, and currently accessed. Lung sounds are diminished bilaterally. Abdomen is soft and nontender. Skin appears slightly pale but otherwise unremarkable. Patient alert. Test Results: EKG showed sinus rhythm at a rate of 114. No sign of acute ischemia or infarction pattern. Chest x-ray was ordered and performed prior to arrival at the ED. It showed no new acute disease. Hemoglobin 11.9, stable. Creatinine 2.21, stable. Coags unremarkable. Troponin normal. Lactate 1.0. Urinalysis showed leuk esterase, nitrites, and increased white blood cells. Cultures are pending. Emergency Department Course and Treatment: Patient presents as above. Some testing had been performed prior to arrival in the ED. I added on additional testing as above. Patient does meet sepsis criteria. It appears that she has a UTI. She is not currently on antibiotics. She had a urine culture from about 2 weeks ago. This showed Morganella. She has multiple antibiotic allergies, but her most recent culture did show sensitivity to ertapenem. Patient was treated with this. She also received IV fluids. She is not displaying signs of shock. Repeat heart rate 107. Patient is alert and stable. I believe she is appropriate for medical admission. We will contact the hospitalist. Treatment Plan: As above Disposition: Admission Impression: 1. UTI 2. Sepsis This note was generated with TutorVista.comation software. It may contain incorrect words, spelling, and punctuation that were not noted in review of the chart prior to signing ED Disposition - Plan for ED Patient: Referrals: Alexandria Carranza MD [Primary Care Provider] -
--- NOTE | 2019-02-26 23:05 | ED.DCSUM_ITS ---
- ER Visit Summary Date of Service: 02/26/19 Chief Complaint: Fever History of Present Illness: The patient is a 64 F who was admitted to the TCU. She was admitted for abdominal pain, constipation, and vomiting. She was sent to the ED today for evaluation. She has a fever with a cough. The cough is been going on for a few days. She has no other complaints. She has a suprapubic catheter and a left chest wall port. She denies upper respiratory symptoms, chest pain, abdominal pain or GI symptoms. She denies rash. She is not currently on antibiotics. Patient has a history of MS and right hemiparesis among her other chronic medical issues. Physical Examination: Temperature 102. Heart rate 109. Blood pressure 159/76. HEENT exam unremarkable. Heart slightly tachycardic but regular. Left chest wall port is noted, and currently accessed. Lung sounds are diminished bi laterally. Abdomen is soft and nontender. Skin appears slightly pale but otherwise unremarkable. Patient alert. Test Results: EKG showed sinus rhythm at a rate of 114. No sign of acute ischemia or infarction pattern. Chest x-ray was ordered and performed prior to arrival at the ED. It showed no new acute disease. Hemoglobin 11.9, stable. Creatinine 2.21, stable. Coags unremarkable. Troponin normal. Lactate 1.0. Urinalysis showed leuk esterase, nitrites, and increased white blood cells. Cultures are pending. Emergency Department Course and Treatment: Patient presents as above. Some testing had been performed prior to arrival in the ED. I added on additional testing as above. Patient does meet sepsis criteria. It appears that she has a UTI. She is not currently on antibiotics. She had a urine culture from about 2 weeks ago. This showed Morganella. She has multiple antibiotic allergies, but her most recent culture did show sensitivity to ertapenem. Patient was treated with this. She also received IV fluids. She is not displaying signs of shock. Repeat heart rate 107. Patient is alert and stable. I believe she is appropriate for medical admission. We will contact the hospitalist. Treatment Plan: As above Disposition: Admission Impression: 1. UTI 2. Sepsis This note was generated with CooCooation software. It may contain incorrect words, spelling, and punctuation that were not noted in review of the chart prior to signing ED Disposition - Plan for ED Patient: Referrals: Alexandria Carranza MD [Primary Care Provider] -
--- NOTE | 2019-02-26 23:24 | HP.PCM_ITS ---
Problem List (1) Bilateral hydronephrosis Status: Chronic (2) Hypomagnesemia Status: Chronic (3) Iron deficiency anemia Status: Chronic (4) MRSA colonization Status: Chronic (5) Neurogenic bladder Status: Chronic (6) Complicated urinary tract infection Status: Acute Comment: Chronic suprapubic catheter. (7) Constipation Status: Acute (8) Declining functional status Status: Acute (9) Dehydration Status: Acute (10) Vomiting Status: Acute (11) Allergic rhinitis Status: Chronic (12) CKD (chronic kidney disease) stage 4, GFR 15-29 ml/min Status: Chronic (13) Hydronephrosis Status: Chronic Comment: Bilateral. (14) Hyperlipidemia Status: Chronic Qualifiers: (15) Insomnia Status: Chronic (16) Migraine headache Status: Chronic Qualifiers: (17) Multiple sclerosis Status: Chronic (18) Muscle spasm Status: Chronic (19) OAB (overactive bladder) Status: Chronic (20) Right hemiparesis Status: Chronic (21) Transient ischemic attack Status: Chronic Qualifiers: (22) Vitamin D deficiency Status: Chronic History of Present Illness Date of Admission: 02/26/19 Chief Complaint: Fever The patient is a 64 year old F with multiple comorbidities as listed above, discharged on 02/22 after she was symptomatically managed for constipation and had CT abdomen along with acute cystitis with Morganella morganii back to ER with high fever. Pressure noted in TC 103 Fahrenheit. In ED 102.1 Fahrenheit. Heart rate in 100s. Pulse ox 92% on 3 L of oxygen. In ED, no UA was done. Urine culture is pending patient also has wet cough and his chronic right hemidiaphragm elevation. Patient denies chest pain/pressure, shortness of breath but has very compromised oral hygiene. Previous urine culture on 02/15 shows Morganella morganii. Prior to that in December 2018 MRSA. No leukocytosis. Lactic acid normal Past Medical History Past Medical History (Chronic Problems): Chronic Problems Neurogenic bladder (Chronic) MRSA colonization (Chronic) Bilateral hydronephrosis (Chronic) Iron deficiency anemia (Chronic) Hypomagnesemia (Chronic) Hydronephrosis (Chronic) Bilateral. Vitamin D deficiency (Chronic) Muscle spasm (Chronic) OAB (overactive bladder) (Chronic) Allergic rhinitis (Chronic) Insomnia (Chronic) Hyperlipidemia (Chronic) CKD (chronic kidney disease) stage 4, GFR 15-29 ml/min (Chronic) Transient ischemic attack (Chronic) Multiple sclerosis (Chronic) Right hemiparesis (Chronic) Migraine headache (Chronic) Allergies ciprofloxacin [From Cipro] Adverse Reaction (Verified 02/26/19 20:55) hypotension interacts w/ zanaflex and baclofen doxycycline Adverse Reaction (Verified 02/26/19 20:55) hypotension interacts w/ zanaflex and baclofen levofloxacin [From Levaquin] Adverse Reaction (Verified 02/26/19 20:55) hypotension interacts w/ zanaflex and baclofen morphine Adverse Reaction (Verified 02/26/19 20:55) hallucinations piperacillin [From Zosyn] Adverse Reaction (Verified 02/26/19 20:55) hypotension interacts w/ zanaflex and baclofen sulfamethoxazole [From Bactrim] Adverse Reaction (Verified 02/26/19 20:55) hypotension interacts w/ zanaflex and baclofen tazobactam [From Zosyn] Adverse Reaction (Verified 02/26/19 20:55) hypotension interacts w/ zanaflex and baclofen trimethoprim [From Bactrim] Adverse Reaction (Verified 02/26/19 20:55) hypotension interacts w/ zanaflex and baclofen vancomycin Adverse Reaction (Verified 02/26/19 20:55) developed toxic levels Home Medications: Ambulatory Orders Medication Instructions Recorded Aspirin E.C. [Ecotrin] 81 mg PO QHS 12/04/16 Atorvastatin Calcium [Lipitor] 40 mg PO QHS 09/05/17 Iron Polysaccharide Complex 150 mg PO DAILYCM 09/05/17 [Ferrex 150] Magnesium Oxide [Mag-Ox 400] 400 mg PO QHS 09/05/17 Amitriptyline HCl [Elavil] 75 mg PO QHS 09/19/17 Lactulose [Chronulac] 40 gm PO QODAY@2200 09/19/17 Baclofen 20 mg PO QHS 07/01/18 Baclofen [Lioresal] 10 mg PO BID 07/01/18 Bisacodyl [Dulcolax] 10 mg RECTAL QODAY 07/01/18 Calcitriol [Rocaltrol] 0.25 mcg PO QHS 07/01/18 ALPRAZolam [Xanax] 0.5 mg PO QHS 02/15/19 Acetaminophen [Tylenol] 1,000 mg PO PRN PRN 02/15/19 Melatonin 10 mg PO QHS 02/15/19 Fluticasone 0.05% [Flonase Nasal 1 spray NASAL BID 02/26/19 [place]] Loratadine 5 mg PO DAILY@1800 02/26/19 Mineral Oil/Petrolatum,White 1 applic TOPICAL BID PRN PRN 02/26/19 [Eucerin] Nystatin Powder [Mycostatin Powder] 1 applic TOPICAL BID 02/26/19 Surgical History: adenoidectomy, tonsillectomy, - - Right shoulder surgery, ORIF right wrist, suprapubic catheter placement. 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 Paternal History Items: - - Denies known paternal medical history including cardiac history. Review of Systems Constitutional: Reports: Chills - Torticollis, Fever HEENT: Reports: - Cardiovascular: Denies: Chest Pain Respiratory: Reports: Cough, - - Dysphagia on dysphagia diet Neurological: Reports: - - Bedridden Unable to obtain accurate/complete ROS d/t: Patient had MS and hardly speak few words VTE Information - Inpt Only VTE Present on Admission: No VTE Mechan Device Prophylaxis: None VTE Pharm Prophylaxis ordered?: Yes - Physical Exam General: Alert, Cooperative - Awake, - HEENT: Atraumatic, PERRLA, EOMI, Normocephalic Oral: - - Oral thrush with white patches present. Neck: Supple, No JVD, Negative Carotid Bruits Lungs: No wheeze, No rales, Diminished Cardiovascular: Regular rate, Regular Rhythm, Normal S1, Normal S2, No murmurs Abdomen: Bowel Sounds Present, Soft, Non Tender, Non-Distended, - - Probably catheter present. Extremities: No edema, Capillary Refill Less than 3 Seconds Skin: No rashes, No breakdown Musculoskeletal: Arthritic Changes, Muscle Wasting, - - Contracture of upper and lower extremities. Partial quadriplegia Neurological: Cranial nerves II-XII grossly intact, - Psych/Mental Status: Normal Affect, Appropriate Vital Signs Temp Pulse Resp BP Pulse Ox 102.1 F H 106 H 22 H 107/84 H 92 02/26/19 20:38 02/26/19 22:42 02/26/19 22:42 02/26/19 22:42 02/26/19 21:34 Oxygen Flow Rate (L/min) 2 Oxygen Delivery Method Room Air Weight: 160 lb 4.417 oz Body Mass Index (BMI) 23.0 Finger Stick Blood Glucose 67 Laboratory Tests Past 24 Hrs 02/26/19 02/26/19 02/26/19 21:15 21:15 21:15 WBC 10.9 RBC 3.94 L Hgb 11.9 L Hct 36.3 L MCV 92.1 MCH 30.2 MCHC 32.8 RDW 16.5 H RDW Differential 56.2 H Plt Count 192 MPV 10.0 Immature Gran % (Auto) 0.100 Neut % (Auto) 70.1 H Lymph % (Auto) 18.8 L Daniels % (Auto) 9.7 Eos % (Auto) 1.0 Baso % (Auto) 0.3 Absolute Neuts (auto) 7.6 Absolute Lymphs (auto) 2.05 Total Counted Not Reportable Differential Comment PT 13.2 INR 1.0 APTT 32.5 Sodium 143 Potassium 4.6 Chloride 107 Carbon Dioxide 31.0 Anion Gap 5 BUN 33 H Creatinine 2.21 H Estim Creat Clear Calc 27.81 Est GFR (MDRD) Af Amer 29 L Est GFR (MDRD) Non-Af 24 L BUN/Creatinine Ratio 14.9 Glucose 109 H Lactic Acid Calcium 9.2 Total Bilirubin 0.30 AST 50 H ALT 55 Alkaline Phosphatase 129 H Troponin I < 0.015 Total Protein 7.8 Albumin 3.1 L Globulin 4.7 H Albumin/Globulin Ratio 0.7 L 02/26/19 21:15 WBC RBC Hgb Hct MCV MCH MCHC RDW RDW Differential Plt Count MPV Immature Gran % (Auto) Neut % (Auto) Lymph % (Auto) Daniels % (Auto) Eos % (Auto) Baso % (Auto) Absolute Neuts (auto) Absolute Lymphs (auto) Total Counted Differential Comment PT INR APTT Sodium Potassium Chloride Carbon Dioxide Anion Gap BUN Creatinine Estim Creat Clear Calc Est GFR (MDRD) Af Amer Est GFR (MDRD) Non-Af BUN/Creatinine Ratio Glucose Lactic Acid 1.0 Calcium Total Bilirubin AST ALT Alkaline Phosphatase Troponin I Total Protein Albumin Globulin Albumin/Globulin Ratio Assessment/Plan All Active Problems Dehydration (Acute) Constipation (Acute) Vomiting (Acute) Declining functional status (Acute) Complicated urinary tract infection (Acute) The patient is a 64 year old F with multiple comorbidities as listed above, including MS with functional quadriplegia was discharged on 02/22 after 7 days of admission and completion of antibiotics for otitis/UTI and symptomatic management for constipation. Urine culture from 02/15 shows Morganricardo cunninghamii is admitted with high fever possible secondary to UTI. Pressure was noted temperature 93 Fahrenheit in PCU. In ED 102.1 Fahrenheit. Previous urine culture on 02/15 shows Morganella morganii. Prior to that in December 2018, urine culture MRSA. No leukocytosis. 1. Acute cystitis/CAUTI/possible colonization with Morganella morganii sp riddhionii: She is being admitted in [facility]. Patient has history of frequent UTIs. Patient is started on IV cefepime. ID consult requested. During previous admission on 02/15, patient was started on cefepime that was changed to Rocephin. 2. Right hemidiaphragm elevation, chronic with wet cough; oropharyngeal thrush: Chest x-ray ordered. Started on Diflucan empirically. 3. Dyslipidemia-patient is on statin therapy, continued at home dose 4. Multiple sclerosis with significant debility patient is on baclofen. 5. Acute kidney injury on chronic kidney disease, stage III is probably prerenal or UTI: Creatinine fluctuates between 1.64-1.75. Currently 2.21. 6. Physical debility secondary to multiple sclerosis with quadriplegia on case management consult. Advanced directive/living: As per the usp, TCU paper patient is full code she is recently operated on 02/22. Patient's Mr. Nakul pena is a power of deputy prosecuting attorney for health. During my interview, she and her not available to talk about history. Laboratory Results 02/26/19 21:15: WBC 10.9, RBC 3.94 L, Hgb 11.9 L, Hct 36.3 L, MCV 92.1, MCH 30.2, MCHC 32.8, RDW 16.5 H, RDW Differential 56.2 H, Plt Count 192, MPV 10.0, Immature Gran % (Auto) 0.100, Neut % (Auto) 70.1 H, Lymph % (Auto) 18.8 L, Daniels % (Auto) 9.7, Eos % (Auto) 1.0, Baso % (Auto) 0.3, Absolute Neuts (auto) 7.6, Absolute Lymphs (auto) 2.05, Total Counted Not Reportable, Differential Comment 02/26/19 21:15: PT 13.2, INR 1.0, APTT 32.5 02/26/19 21:15: Sodium 143, Potassium 4.6, Chloride 107, Carbon Dioxide 31.0, Anion Gap 5, BUN 33 H, Creatinine 2.21 H, Estim Creat Clear Calc 27.81, Est GFR (MDRD) Af Amer 29 L, Est GFR (MDRD) Non-Af 24 L, BUN/Creatinine Ratio 14.9, Glucose 109 H, Calcium 9.2, Total Bilirubin 0.30, AST 50 H, ALT 55, Alkaline Phosphatase 129 H, Troponin I < 0.015, Total Protein 7.8, Albumin 3.1 L, Globulin 4.7 H, Albumin/Globulin Ratio 0.7 L 02/26/19 21:15: Lactic Acid 1.0 Code Visit Inpatient E&M: 49370 Init Hosp L3
[2019-02-26 23:25] VITALS: BP 123/63; PULSE 101; RESP 26; TEMP 37.1; O2SAT 92
[2019-02-26 23:27] VITALS: BP 123/63; PULSE 100; RESP 19; TEMP 37.1; O2SAT 92
[2019-02-27] VITALS (7 sets, daily range): BP systolic 103–125; BP diastolic 56–76; PULSE 79–96; RESP 18–20; TEMP 36.7–37.4; O2SAT 93–98; BMI 22.3
--- NOTE | 2019-02-27 00:18 | ED.RN ---
CALLED SPOUSE TO UPDATE POC AND ROOM NUMBER.
[2019-02-27] MEDS: Dext 5%-0.45% NS 1,000 ML 50 ML IV (01:30)
[2019-02-27] MEDS: 0.9% NaCl VAD Flush 10 ML IV ×3 (05:16→05:18)
[2019-02-27 05:46] LABS: Absolute Lymphocyte Count 2.25 X10^3/ul (0.83-4.51); Absolute Neutrophil Count 7.1 X10^3/uL (2.0-7.7); Basophil# 0.03 X10^3/uL; Basophil% 0.3 % (0-1); Eosinophil# 0.09 X10^3/uL; Eosinophils% 0.8 % (0-5); Hematocrit 32.9 % (37-47); Hemoglobin 10.2 g/dl (12.0-15.0); Lymphocyte # 2.25 X10^3/ul (4.0); Lymphocyte % 20.8 % (19-41); Mean Corpuscular Hgb 29.1 pg (27.0-32.0); Mean Platelet Vol. 10.2 fl (6.2-12.0); Monocyte# 1.35 X10^3/uL; Monocyte% 12.5 % (0-10); Neutrophil # 7.06 X10^3/uL (2.7-7.7); Neutrophil % 65.2 % (47-70); Platelet Count 169 K/mm3 (150-450); RBC Distribution Width CV 16.7 % (11.6-14.6); RBC Distribution Width SD 55.6 fl (35.1-43.9); White Blood Count 10.8 K/mm3 (4.4-11.0)
[2019-02-27 06:10] LABS: POSITIVE COUNT NO; POSITIVE DIFFERENTIAL NO; POSITIVE MORPHOLOGY NO
[2019-02-27 06:12] LABS: Anion Gap 3 (5-15); BUN 33 mg/dL (7-18); BUN/Creat Ratio 14.6 RATIO (10-20); Calcium,Total 8.7 mg/dL (8.5-10.1); Chloride 110 mmol/L (98-107); Creatinine, Serum 2.26 mg/dL (0.55-1.02); EST Glomerular Filtration Rate 23 mL/min (>60); Est Glom Filt Rate - Afr Amer 28 mL/min (>60); Estimated Creatinine Clearance 27.19 ml/min; Glucose 92 mg/dL (74-106); Potassium 4.4 mmol/L (3.5-5.1); Sodium Level 146 mmol/L (136-145)
--- NOTE | 2019-02-27 08:30 | NURSING ---
Pt's this AM asking questions about pt's diet. Discussed pt having regular diet on TCU with nectar thick liquids. Pt's , Siva, states that pt usually drinks 4-6L of regular water a day at home, thin liquid, and never had any problems drinking. states pt has been drinking thin liquids from glasses since being at home and on TCU on a daily basis. states he spends every meal with her and helps her with thin liquids and food and pt never has signs of distress.
--- NOTE | 2019-02-27 10:31 | PCM.PN.HOSP ---
Subjective: Seems to be doing okay, she is alert and interactive. Per the she still not back to her baseline in terms of assisting with transitions from bed to bedside commode. Vitals/I&O's: Vital Signs Temp Pulse Resp BP Pulse Ox 98.1 F 96 18 110/57 L 95 02/27/19 02:40 02/27/19 02:40 02/27/19 02:40 02/27/19 02:40 02/27/19 07:25 Oxygen Flow Rate (L/min) 2 Oxygen Delivery Method Nasal Cannula Weight: 155 lb 10.342 oz Body Mass Index (BMI) 22.3 Finger Stick Blood Glucose 67 Intake and Output for Last 24 Hours 02/25/19 02/26/19 02/27/19 23:59 23:59 23:59 Intake Total 256 / 256 Output Total 300 / 300 Balance -44 / -44 General: Alert, Oriented x3, Cooperative, No apparent distress HEENT: Atraumatic, PERRLA, EOMI, Normocephalic Oral: Dry Mucosa Neck: Supple, No JVD Lungs: Clear to auscultation, Normal air movement, No rhonchi, No wheeze, No rales, Diminished Cardiovascular: Regular rate, Regular Rhythm, Normal S1, Normal S2, No murmurs Abdomen: Soft, Non Tender, Non-Distended, No Hepato-splenomegaly Extremities: No edema, Capillary Refill Less than 3 Seconds Skin: No rashes, No breakdown Neurological: Neuro grossly intact, Sensory exam intact to light touch and pain, - - Chronic right hemiparesis Psych/Mental Status: Normal Affect, Appropriate Laboratory Results 02/26/19 21:15: WBC 10.9, RBC 3.94 L, Hgb 11.9 L, Hct 36.3 L, MCV 92.1, MCH 30.2, MCHC 32.8, RDW 16.5 H, RDW Differential 56.2 H, Plt Count 192, MPV 10.0, Immature Gran % (Auto) 0.100, Neut % (Auto) 70.1 H, Lymph % (Auto) 18.8 L, [place] % (Auto) 9.7, Eos % (Auto) 1.0, Baso % (Auto) 0.3, Absolute Neuts (auto) 7.6, Absolute Lymphs (auto) 2.05, Total Counted Not Reportable, Differential Comment 02/26/19 21:15: PT 13.2, INR 1.0, APTT 32.5 02/26/19 21:15: Sodium 143, Potassium 4.6, Chloride 107, Carbon Dioxide 31.0, Anion Gap 5, BUN 33 H, Creatinine 2.21 H, Estim Creat Clear Calc 27.81, Est GFR (MDRD) Af Amer 29 L, Est GFR (MDRD) Non-Af 24 L, BUN/Creatinine Ratio 14.9, Glucose 109 H, Calcium 9.2, Total Bilirubin 0.30, AST 50 H, ALT 55, Alkaline Phosphatase 129 H, Troponin I < 0.015, Total Protein 7.8, Albumin 3.1 L, Globulin 4.7 H, Albumin/Globulin Ratio 0.7 L 02/26/19 21:15: Lactic Acid 1.0 02/27/19 05:20: WBC 10.8, RBC 3.50 L, Hgb 10.2 L, Hct 32.9 L, MCV 94.0, MCH 29.1, MCHC 31.0 L, RDW 16.7 H, RDW Differential 55.6 H, Plt Count 169, MPV 10.2, Immature Gran % (Auto) 0.400, Neut % (Auto) 65.2, Lymph % (Auto) 20.8, [place] % (Auto) 12.5 H, Eos % (Auto) 0.8, Baso % (Auto) 0.3, Absolute Neuts (auto) 7.1, Absolute Lymphs (auto) 2.25, Total Counted Not Reportable 02/27/19 05:20: Sodium 146 H, Potassium 4.4, Chloride 110 H, Carbon Dioxide 33.0 H, Anion Gap 3 L, BUN 33 H, Creatinine 2.26 H, Estim Creat Clear Calc 27.19, Est GFR (MDRD) Af Amer 28 L, Est GFR (MDRD) Non-Af 23 L, BUN/Creatinine Ratio 14.6, Glucose 92, Calcium 8.7 Current Medications Acetaminophen (Tylenol) 650 mg PO Q6H PRN PRN PRN Reason: Mild Pain (1-3)/Temp > 100.7 F Albuterol Sulfate (Ventolin Aerosols) 2.5 mg INHALATION Q2H PRN PRN PRN Reason: Shortness of Breath/Wheezing Alprazolam (Xanax) 0.5 mg PO QHS [facility] Amitriptyline HCl (Elavil) 75 mg PO QHS [facility] Aspirin (Ecotrin) 81 mg PO QHS [facility] Atorvastatin Calcium (Lipitor) 40 mg PO QHS [facility] Baclofen (Lioresal) 10 mg PO BID [facility] Baclofen (Lioresal) 20 mg PO QHS [facility] Bisacodyl (Dulcolax) 10 mg RECTAL DAILY PRN PRN PRN Reason: Constipation Calcitriol (Rocaltrol) 0.25 mcg PO QHS [facility] Fluticasone Propionate (Flonase Nasal [place]) 1 spray NASAL BID [facility] Guaifenesin (Robitussin) 20 ml PO Q4H PRN PRN PRN Reason: COUGH Heparin Sodium (Beef Lung) () 50 units IV UD PRN PRN Reason: HEPARIN FLUSH Heparin Sodium (Beef Lung) () 50 units IV UD PRN PRN Reason: HEPARIN FLUSH Cefepime HCl 1 gm/ Sodium (Chloride) 50 mls @ 100 mls/hr IV Q8 [facility] Last Admin: 02/27/19 05:10 Dose: 100 mls/hr Dextrose/Sodium Chloride () 1,000 mls @ 50 mls/hr IV .Q20H [facility] Stop: 02/27/19 20:11 Last Admin: 02/27/19 01:30 Dose: 50 mls/hr Fluconazole (Diflucan) 200 mg in 100 mls @ 100 mls/hr IV QHS [facility] Last Admin: 02/27/19 01:27 Dose: 100 mls/hr Lactulose (Chronulac, Cephulac) 40 gm PO QODAY@2200 [facility] Loratadine (Claritin) 5 mg PO DAILY@1800 [facility] Magnesium Oxide (Mag-Ox 400) 400 mg PO QHS [facility] Melatonin (Melatonin) 10 mg PO QHS [facility] Multi-Ingredient Cream (Eucerin) 1 applic TOPICAL BID PRN PRN; Protocol PRN Reason: DRY SKIN Nystatin (Mycostatin Powder) 1 applic TOPICAL BID [facility]; Protocol Polyethylene Glycol (Miralax) 17 gm PO DAILY [facility] Polysaccharide Iron Complex (Ferrex 150) [facility] Prochlorperazine Edisylate (Compazine Iv) 5 mg IV Q4H PRN PRN PRN Reason: Breakthrough nausea/vomiting Senna/Docusate Sodium (Senokot-S, Meghan-Colace) 2 tablet PO BID PRN PRN PRN Reason: Constipation Sodium Chloride () 10 ml IV UD PRN PRN Reason: VAD FLUSH Last Admin: 02/27/19 05:18 Dose: 10 ml Sodium Chloride () 10 ml IV UD PRN PRN Reason: VAD FLUSH Medical Necessity - Tobacco Use Smoking Status: Never smoker Assessment/Plan All Active Problems Dehydration (Acute) Constipation (Acute) Vomiting (Acute) Declining functional status (Acute) Complicated urinary tract infection (Acute) 1. UTI with a suprapubic catheter -She has a chronic suprapubic catheter however in discussion with the her symptoms were atypical for her and this could represent symptomatic UTI -She was growing greater than 100,000 Morganella morganii, and was treated appropriately with Rocephin -New urine culture is pending and she is currently on cefepime with a consult out to infectious disease -He was also started on Diflucan, given her extensive antibiotics recently there is concern she might have a yeast causing this new UTI which she has grown in the past -We will continue with her lactulose for her -She is okay to have a regular diet as well as water which she her states that she can take at home -Per the he would like to return to TCU if possible 2. Chronic MS with chronic right hemiparesis -PT/OT/speech therapy for evaluation and treatment -The does not think that he needs help at home from any healthcare agency though he would like if possible to have a Zaar lift to make transferring at home easier if possible -We will continue her home antispastic medications 3. CKD stage IV with JAYY -Continue with IV fluids until taking adequate p.o. -Creatinine today is 2.29 we will continue to monitor continue with her D5 half-normal saline at 125 cc/h 4. History of TIA/HLD -Stable -Continue with aspirin and statin 5. Possible reflux -She has pain with swallowing and therefore will provide a GI cocktail to see if that helps relieve the pain DVT: Heparin Code Visit Inpatient E&M: 98169 Subs Hosp L2
--- NOTE | 2019-02-27 10:39 | PN_ITS ---
Subjective: Seems to be doing okay, she is alert and interactive. Per the she still not back to her baseline in terms of assisting with transitions from bed to bedside commode. Vitals/I&O's: Vital Signs Temp Pulse Resp BP Pulse Ox 98.1 F 96 18 110/57 L 95 02/27/19 02:40 02/27/19 02:40 02/27/19 02:40 02/27/19 02:40 02/27/19 07:25 Oxygen Flow Rate (L/min) 2 Oxygen Delivery Method Nasal Cannula Weight: 155 lb 10.342 oz Body Mass Index (BMI) 22.3 Finger Stick Blood Glucose 67 Intake and Output for Last 24 Hours 02/25/19 02/26/19 02/27/19 23:59 23:59 23:59 Intake Total 256 / 256 Output Total 300 / 300 Balance -44 / -44 General: Alert, Oriented x3, Cooperative, No apparent distress HEENT: Atraumatic, PERRLA, EOMI, Normocephalic Oral: Dry Mucosa Neck: Supple, No JVD Lungs: Clear to auscultation, Normal air movement, No rhonchi, No wheeze, No rales, Diminished Cardiovascular: Regular rate, Regular Rhythm, Normal S1, Normal S2, No murmurs Abdomen: Soft, Non Tender, Non-Distended, No Hepato-splenomegaly Extremities: No edema, Capillary Refill Less than 3 Seconds Skin: No rashes, No breakdown Neurological: Neuro grossly intact, Sensory exam intact to light touch and pain, - - Chronic right hemiparesis Psych/Mental Status: Normal Affect, Appropriate Laboratory Results 02/26/19 21:15: WBC 10.9, RBC 3.94 L, Hgb 11.9 L, Hct 36.3 L, MCV 92.1, MCH 30.2, MCHC 32.8, RDW 16.5 H, RDW Differential 56.2 H, Plt Count 192, MPV 10.0, Immature Gran % (Auto) 0.100, Neut % (Auto) 70.1 H, Lymph % (Auto) 18.8 L, [place] % (Auto) 9.7, Eos % (Auto) 1.0, Baso % (Auto) 0.3, Absolute Neuts (auto) 7.6, Absolute Lymphs (auto) 2.05, Total Counted Not Reportable, Differential Comment 02/26/19 21:15: PT 13.2, INR 1.0, APTT 32.5 02/26/19 21:15: Sodium 143, Potassium 4.6, Chloride 107, Carbon Dioxide 31.0, Anion Gap 5, BUN 33 H, Creatinine 2.21 H, Estim Creat Clear Calc 27.81, Est GFR (MDRD) Af Amer 29 L, Est GFR (MDRD) Non-Af 24 L, BUN/Creatinine Ratio 14.9, Glucose 109 H, Calcium 9.2, Total Bilirubin 0.30, AST 50 H, ALT 55, Alkaline Phosphatase 129 H, Troponin I < 0.015, Total Protein 7.8, Albumin 3.1 L, Globulin 4.7 H, Albumin/Globulin Ratio 0.7 L 02/26/19 21:15: Lactic Acid 1.0 02/27/19 05:20: WBC 10.8, RBC 3.50 L, Hgb 10.2 L, Hct 32.9 L, MCV 94.0, MCH 29.1, MCHC 31.0 L, RDW 16.7 H, RDW Differential 55.6 H, Plt Count 169, MPV 10.2, Immature Gran % (Auto) 0.400, Neut % (Auto) 65.2, Lymph % (Auto) 20.8, [place] % (Auto) 12.5 H, Eos % (Auto) 0.8, Baso % (Auto) 0.3, Absolute Neuts (auto) 7.1, Absolute Lymphs (auto) 2.25, Total Counted Not Reportable 02/27/19 05:20: Sodium 146 H, Potassium 4.4, Chloride 110 H, Carbon Dioxide 33.0 H, Anion Gap 3 L, BUN 33 H, Creatinine 2.26 H, Estim Creat Clear Calc 27.19, Est GFR (MDRD) Af Amer 28 L, Est GFR (MDRD) Non-Af 23 L, BUN/Creatinine Ratio 14.6, Glucose 92, Calcium 8.7 Current Medications Acetaminophen (Tylenol) 650 mg PO Q6H PRN PRN PRN Reason: Mild Pain (1-3)/Temp > 100.7 F Albuterol Sulfate (Ventolin Aerosols) 2.5 mg INHALATION Q2H PRN PRN PRN Reason: Shortness of Breath/Wheezing Alprazolam (Xanax) 0.5 mg PO QHS [facility] Amitriptyline HCl (Elavil) 75 mg PO QHS [facility] Aspirin (Ecotrin) 81 mg PO QHS [facility] Atorvastatin Calcium (Lipitor) 40 mg PO QHS [facility] Baclofen (Lioresal) 10 mg PO BID [facility] Baclofen (Lioresal) 20 mg PO QHS [facility] Bisacodyl (Dulcolax) 10 mg RECTAL DAILY PRN PRN PRN Reason: Constipation Calcitriol (Rocaltrol) 0.25 mcg PO QHS [facility] Fluticasone Propionate (Flonase Nasal [place]) 1 spray NASAL BID [facility] Guaifenesin (Robitussin) 20 ml PO Q4H PRN PRN PRN Reason: COUGH Heparin Sodium (Beef Lung) () 50 units IV UD PRN PRN Reason: HEPARIN FLUSH Heparin Sodium (Beef Lung) () 50 units IV UD PRN PRN Reason: HEPARIN FLUSH Cefepime HCl 1 gm/ Sodium (Chloride) 50 mls @ 100 mls/hr IV Q8 [facility] Last Admin: 02/27/19 05:10 Dose: 100 mls/hr Dextrose/Sodium Chloride () 1,000 mls @ 50 mls/hr IV .Q20H [facility] Stop: 02/27/19 20:11 Last Admin: 02/27/19 01:30 Dose: 50 mls/hr Fluconazole (Diflucan) 200 mg in 100 mls @ 100 mls/hr IV QHS [facility] Last Admin: 02/27/19 01:27 Dose: 100 mls/hr Lactulose (Chronulac, Cephulac) 40 gm PO QODAY@2200 [facility] Loratadine (Claritin) 5 mg PO DAILY@1800 [facility] Magnesium Oxide (Mag-Ox 400) 400 mg PO QHS [facility] Melatonin (Melatonin) 10 mg PO QHS [facility] Multi-Ingredient Cream (Eucerin) 1 applic TOPICAL BID PRN PRN; Protocol PRN Reason: DRY SKIN Nystatin (Mycostatin Powder) 1 applic TOPICAL BID [facility]; Protocol Polyethylene Glycol (Miralax) 17 gm PO DAILY [facility] Polysaccharide Iron [facility] (Ferrex 150) [facility] Prochlorperazine Edisylate (Compazine Iv) 5 mg IV Q4H PRN PRN PRN Reason: Breakthrough nausea/vomiting Senna/Docusate Sodium (Senokot-S, Meghan-Colace) 2 tablet PO BID PRN PRN PRN Reason: Constipation Sodium Chloride () 10 ml IV UD PRN PRN Reason: VAD FLUSH Last Admin: 02/27/19 05:18 Dose: 10 ml Sodium Chloride () 10 ml IV UD PRN PRN Reason: VAD FLUSH Medical Necessity - Tobacco Use Smoking Status: Never smoker Assessment/Plan All Active Problems Dehydration (Acute) Constipation (Acute) Vomiting (Acute) Declining functional status (Acute) Complicated urinary tract infection (Acute) 1. UTI with a suprapubic catheter -She has a chronic suprapubic catheter however in discussion with the her symptoms were atypical for her and this could represent symptomatic UTI -She was growing greater than 100,000 Morganella morganii, and was treated appropriately with Rocephin -New urine culture is pending and she is currently on cefepime with a consult out to infectious disease -He was also started on Diflucan, given her extensive antibiotics recently there is concern she might have a yeast causing this new UTI which she has grown in the past -We will continue with her lactulose for her -She is okay to have a regular diet as well as water which she her states that she can take at home -Per the he would like to return to TCU if possible 2. Chronic MS with chronic right hemiparesis -PT/OT/speech therapy for evaluation and treatment -The does not think that he needs help at home from any healthcare agency though he would like if possible to have a Azar lift to make transferring at home easier if possible -We will continue her home antispastic medications 3. CKD stage IV with JAYY -Continue with IV fluids until taking adequate p.o. -Creatinine today is 2.29 we will continue to monitor continue with her D5 half- normal saline at 125 cc/h 4. History of TIA/HLD -Stable -Continue with aspirin and statin 5. Possible reflux -She has pain with swallowing and therefore will provide a GI cocktail to see if that helps relieve the pain DVT: Heparin Code Visit Inpatient E&M: 18573 Subs Hosp L2
[2019-02-27] MEDS: Fluticasone 0.05% 1 SPRAY NASAL.SRY NASAL ×2 (10:50→22:01)
[2019-02-27] MEDS: Nystatin Powder 15gm Bottle 1 APPLIC TOPICAL ×2 (10:50→22:01)
[2019-02-27] MEDS: Baclofen 10 MG Tablet PO ×2 (10:51→22:00)
[2019-02-27] MEDS: Polyethylene Glycol 3350 17 GM PACKET PO (10:51)
[2019-02-27] MEDS: Iron Polysaccharide Complex 150 MG CAPSULE PO (10:51)
[2019-02-27] MEDS: Loratadine 10 MG Tablet 5 MG PO (17:15)
[2019-02-27] MEDS: Dext 5%-0.45% NS 1,000 ML 125 ML IV (17:15)
--- NOTE | 2019-02-27 18:10 | NURSING ---
Pt's continues to give pt thin liquids in large water jug with straw. states She drank the whole thing and had no problems.
[2019-02-27] MEDS: Baclofen 10 MG Tablet 20 MG PO (22:00)
[2019-02-27] MEDS: Amitriptyline 25 MG Tablet 75 MG PO (22:00)
[2019-02-27] MEDS: Aspirin E.C. 81 MG Tablet PO (22:00)
[2019-02-27] MEDS: Magnesium Oxide 400 MG Tablet PO (22:00)
[2019-02-27] MEDS: Atorvastatin Calcium 40 MG Tablet PO (22:00)
[2019-02-27] MEDS: MELATONIN 10 MG TABLET PO (22:00)
[2019-02-27] MEDS: Calcitriol 0.25 MCG Capsule PO (22:00)
[2019-02-27] MEDS: ALPRAZolam 0.5 MG Tablet PO (22:01)
[2019-02-28 02:54] VITALS: BP 120/66; PULSE 77; RESP 18; TEMP 36.7; O2SAT 93
[2019-02-28] MEDS: Dext 5%-0.45% NS 1,000 ML 125 ML IV ×3 (03:07→19:38)
[2019-02-28] MEDS: 0.9% NaCl VAD Flush 10 ML IV ×2 (05:23→05:24)
[2019-02-28 05:42] LABS: Anion Gap 6 (5-15); BUN 30 mg/dL (7-18); BUN/Creat Ratio 14.2 RATIO (10-20); Calcium,Total 8.2 mg/dL (8.5-10.1); Chloride 105 mmol/L (98-107); Creatinine, Serum 2.11 mg/dL (0.55-1.02); EST Glomerular Filtration Rate 25 mL/min (>60); Est Glom Filt Rate - Afr Amer 30 mL/min (>60); Estimated Creatinine Clearance 29.13 ml/min; Glucose 105 mg/dL (74-106); Potassium 4.3 mmol/L (3.5-5.1); Sodium Level 141 mmol/L (136-145)
[2019-02-28 07:04] VITALS: O2SAT 94
--- NOTE | 2019-02-28 09:55 | PCM.PN.HOSP ---
Subjective: She is sleepier today than she was yesterday. However overall appears to be doing well. Vitals/I&O's: Vital Signs Temp Pulse Resp BP Pulse Ox 98.1 F 77 18 120/66 94 02/28/19 02:54 02/28/19 02:54 02/28/19 02:54 02/28/19 02:54 02/28/19 07:04 Oxygen Flow Rate (L/min) 2 Oxygen Delivery Method Nasal Cannula Weight: 155 lb 10.342 oz Body Mass Index (BMI) 22.3 Finger Stick Blood Glucose 67 Intake and Output for Last 24 Hours 02/26/19 02/27/19 02/28/19 23:59 23:59 23:59 Intake Total 3120 / 3120 2350 / 2350 Output Total 875 / 875 1650 / 1650 Balance 2245 / 2245 700 / 700 General: Alert, Oriented x3, Cooperative, No apparent distress HEENT: Atraumatic, PERRLA, EOMI, Normocephalic Oral: Dry Mucosa Neck: Supple, No JVD Lungs: Clear to auscultation, Normal air movement, No rhonchi, No wheeze, No rales, Diminished Cardiovascular: Regular rate, Regular Rhythm, Normal S1, Normal S2, No murmurs Abdomen: Soft, Non Tender, Non-Distended, No Hepato-splenomegaly Extremities: No edema, Capillary Refill Less than 3 Seconds Skin: No rashes, No breakdown Neurological: Neuro grossly intact, Sensory exam intact to light touch and pain, - - Chronic right hemiparesis Psych/Mental Status: Normal Affect, Appropriate Laboratory Results 02/28/19 05:23: Sodium 141, Potassium 4.3, Chloride 105, Carbon Dioxide 30.0, Anion Gap 6, BUN 30 H, Creatinine 2.11 H, Estim Creat Clear Calc 29.13, Est GFR (MDRD) Af Amer 30 L, Est GFR (MDRD) Non-Af 25 L, BUN/Creatinine Ratio 14.2, Glucose 105, Calcium 8.2 L Current Medications Acetaminophen (Tylenol) 650 mg PO Q6H PRN PRN PRN Reason: Mild Pain (1-3)/Temp > 100.7 F Albuterol Sulfate (Ventolin Aerosols) 2.5 mg INHALATION Q2H PRN PRN PRN Reason: Shortness of Breath/Wheezing Alprazolam (Xanax) 0.5 mg PO QHS [facility] Last Admin: 02/27/19 22:01 Dose: 0.5 mg Amitriptyline HCl (Elavil) 75 mg PO QHS [facility] Last Admin: 02/27/19 22:00 Dose: 75 mg Aspirin (Ecotrin) 81 mg PO QHS [facility] Last Admin: 02/27/19 22:00 Dose: 81 mg Atorvastatin Calcium (Lipitor) 40 mg PO QHS [facility] Last Admin: 02/27/19 22:00 Dose: 40 mg Baclofen (Lioresal) 10 mg PO BID [facility] Last Admin: 02/27/19 22:00 Dose: 10 mg Baclofen (Lioresal) 20 mg PO QHS [facility] Last Admin: 02/27/19 22:00 Dose: 20 mg Bisacodyl (Dulcolax) 10 mg RECTAL DAILY PRN PRN PRN Reason: Constipation Calcitriol (Rocaltrol) 0.25 mcg PO QHS [facility] Last Admin: 02/27/19 22:00 Dose: 0.25 mcg Fluticasone Propionate (Flonase Nasal [place]) 1 spray NASAL BID [facility] Last Admin: 02/27/19 22:01 Dose: 1 spray Guaifenesin (Robitussin) 20 ml PO Q4H PRN PRN PRN Reason: COUGH Heparin Sodium (Beef Lung) () 50 units IV UD PRN PRN Reason: HEPARIN FLUSH Heparin Sodium (Beef Lung) () 50 units IV UD PRN PRN Reason: HEPARIN FLUSH Heparin Sodium (Porcine) (Heparin Na) 5,000 unit SC Q12 [facility] Last Admin: 02/27/19 22:05 Dose: Not Given Cefepime HCl 1 gm/ Sodium (Chloride) 50 mls @ 100 mls/hr IV Q8 [facility] Last Admin: 02/28/19 05:23 Dose: 100 mls/hr Fluconazole (Diflucan) 200 mg in 100 mls @ 100 mls/hr IV QHS [facility] Last Admin: 02/27/19 23:05 Dose: 100 mls/hr Dextrose/Sodium Chloride () 1,000 mls @ 125 mls/hr IV .Q8H [facility] Last Admin: 02/28/19 03:07 Dose: 125 mls/hr Lactulose (Chronulac, Cephulac) 40 gm PO QODAY@2200 [facility] Loratadine (Claritin) 5 mg PO DAILY@1800 [facility] Last Admin: 02/27/19 17:15 Dose: 5 mg Magnesium Oxide (Mag-Ox 400) 400 mg PO QHS [facility] Last Admin: 02/27/19 22:00 Dose: 400 mg Melatonin (Melatonin) 10 mg PO QHS [facility] Last Admin: 02/27/19 22:00 Dose: 10 mg Multi-Ingredient Cream (Eucerin) 1 applic TOPICAL BID PRN PRN; Protocol PRN Reason: DRY SKIN Nystatin (Mycostatin Powder) 1 applic TOPICAL BID [facility]; Protocol Last Admin: 02/27/19 22:01 Dose: 1 applicatio Polyethylene Glycol (Miralax) 17 gm PO DAILY [facility] Last Admin: 02/27/19 10:51 Dose: 17 gm Polysaccharide Iron Complex (Ferrex 150) 150 mg PO DAILYCM [facility] Last Admin: 02/27/19 10:51 Dose: 150 mg Prochlorperazine Edisylate (Compazine Iv) 5 mg IV Q4H PRN PRN PRN Reason: Breakthrough nausea/vomiting Senna/Docusate Sodium (Senokot-S, Meghan-Colace) 2 tablet PO BID PRN PRN PRN Reason: Constipation Sodium Chloride () 10 ml IV UD PRN PRN Reason: VAD FLUSH Last Admin: 02/28/19 05:24 Dose: 10 ml Sodium Chloride () 10 ml IV UD PRN PRN Reason: VAD FLUSH Medical Necessity - Tobacco Use Smoking Status: Never smoker Assessment/Plan All Active Problems Dehydration (Acute) Constipation (Acute) Vomiting (Acute) Declining functional status (Acute) Complicated urinary tract infection (Acute) 1. UTI with a suprapubic catheter -She was growing greater than 100,000 Morganella morganii, and was treated appropriately with Rocephin -New urine culture is pending and she is currently on cefepime with a consult out to infectious disease -He was also started on Diflucan, given her extensive antibiotics recently there is concern she might have a yeast causing this new UTI which she has grown in the past -We will continue with her lactulose for her as well as MiraLAX -She is okay to have a regular diet as well as water which she her states that she can take at home -Per the he would like to return to [facility] if possible 2. Chronic MS with chronic right hemiparesis -PT/OT/speech therapy for evaluation and treatment -The does not think that he needs help at home from any healthcare agency though he would like if possible to have a Azar lift to make transferring at home easier if possible -We will continue her home antispastic medications 3. CKD stage IV with JAYY -Continue with IV fluids until taking adequate p.o. -Creatinine today is 2.11 we will continue to monitor continue with her D5 half-normal saline at 125 cc/h 4. History of TIA/HLD -Stable -Continue with aspirin and statin DVT: Heparin Code Visit Inpatient E&M: 08389 Subs Hosp L2
--- NOTE | 2019-02-28 09:59 | PN_ITS ---
Subjective: She is sleepier today than she was yesterday. However overall appears to be doing well. Vitals/I&O's: Vital Signs Temp Pulse Resp BP Pulse Ox 98.1 F 77 18 120/66 94 02/28/19 02:54 02/28/19 02:54 02/28/19 02:54 02/28/19 02:54 02/28/19 07:04 Oxygen Flow Rate (L/min) 2 Oxygen Delivery Method Nasal Cannula Weight: 155 lb 10.342 oz Body Mass Index (BMI) 22.3 Finger Stick Blood Glucose 67 Intake and Output for Last 24 Hours 02/26/19 02/27/19 02/28/19 23:59 23:59 23:59 Intake Total 3120 / 3120 2350 / 2350 Output Total 875 / 875 1650 / 1650 Balance 2245 / 2245 700 / 700 General: Alert, Oriented x3, Cooperative, No apparent distress HEENT: Atraumatic, PERRLA, EOMI, Normocephalic Oral: Dry Mucosa Neck: Supple, No JVD Lungs: Clear to auscultation, Normal air movement, No rhonchi, No wheeze, No rales, Diminished Cardiovascular: Regular rate, Regular Rhythm, Normal S1, Normal S2, No murmurs Abdomen: Soft, Non Tender, Non-Distended, No Hepato-splenomegaly Extremities: No edema, Capillary Refill Less than 3 Seconds Skin: No rashes, No breakdown Neurological: Neuro grossly intact, Sensory exam intact to light touch and pain, - - Chronic right hemiparesis Psych/Mental Status: Normal Affect, Appropriate Laboratory Results 02/28/19 05:23: Sodium 141, Potassium 4.3, Chloride 105, Carbon Dioxide 30.0, Anion Gap 6, BUN 30 H, Creatinine 2.11 H, Estim Creat Clear Calc 29.13, Est GFR (MDRD) Af Amer 30 L, Est GFR (MDRD) Non-Af 25 L, BUN/Creatinine Ratio 14.2, Glucose 105, Calcium 8.2 L Current Medications Acetaminophen (Tylenol) 650 mg PO Q6H PRN PRN PRN Reason: Mild Pain (1-3)/Temp > 100.7 F Albuterol Sulfate (Ventolin Aerosols) 2.5 mg INHALATION Q2H PRN PRN PRN Reason: Shortness of Breath/Wheezing Alprazolam (Xanax) 0.5 mg PO QHS [facility] Last Admin: 02/27/19 22:01 Dose: 0.5 mg Amitriptyline HCl (Elavil) 75 mg PO QHS [facility] Last Admin: 02/27/19 22:00 Dose: 75 mg Aspirin (Ecotrin) 81 mg PO QHS [facility] Last Admin: 02/27/19 22:00 Dose: 81 mg Atorvastatin Calcium (Lipitor) 40 mg PO QHS [facility] Last Admin: 02/27/19 22:00 Dose: 40 mg Baclofen (Lioresal) 10 mg PO BID [facility] Last Admin: 02/27/19 22:00 Dose: 10 mg Baclofen (Lioresal) 20 mg PO QHS [facility] Last Admin: 02/27/19 22:00 Dose: 20 mg Bisacodyl (Dulcolax) 10 mg RECTAL DAILY PRN PRN PRN Reason: Constipation Calcitriol (Rocaltrol) 0.25 mcg PO QHS [facility] Last Admin: 02/27/19 22:00 Dose: 0.25 mcg Fluticasone Propionate (Flonase Nasal [place]) 1 spray NASAL BID [facility] Last Admin: 02/27/19 22:01 Dose: 1 spray Guaifenesin (Robitussin) 20 ml PO Q4H PRN PRN PRN Reason: COUGH Heparin Sodium (Beef Lung) () 50 units IV UD PRN PRN Reason: HEPARIN FLUSH Heparin Sodium (Beef Lung) () 50 units IV UD PRN PRN Reason: HEPARIN FLUSH Heparin Sodium (Porcine) (Heparin Na) 5,000 unit SC Q12 [facility] Last Admin: 02/27/19 22:05 Dose: Not Given Cefepime HCl 1 gm/ Sodium (Chloride) 50 mls @ 100 mls/hr IV Q8 [facility] Last Admin: 02/28/19 05:23 Dose: 100 mls/hr Fluconazole (Diflucan) 200 mg in 100 mls @ 100 mls/hr IV QHS [facility] Last Admin: 02/27/19 23:05 Dose: 100 mls/hr Dextrose/Sodium Chloride () 1,000 mls @ 125 mls/hr IV .Q8H [facility] Last Admin: 02/28/19 03:07 Dose: 125 mls/hr Lactulose (Chronulac, Cephulac) 40 gm PO QODAY@2200 [facility] Loratadine (Claritin) 5 mg PO DAILY@1800 [facility] Last Admin: 02/27/19 17:15 Dose: 5 mg Magnesium Oxide (Mag-Ox 400) 400 mg PO QHS [facility] Last Admin: 02/27/19 22:00 Dose: 400 mg Melatonin (Melatonin) 10 mg PO QHS [facility] Last Admin: 02/27/19 22:00 Dose: 10 mg Multi-Ingredient Cream (Eucerin) 1 applic TOPICAL BID PRN PRN; Protocol PRN Reason: DRY SKIN Nystatin (Mycostatin Powder) 1 applic TOPICAL BID [facility]; Protocol Last Admin: 02/27/19 22:01 Dose: 1 applicatio Polyethylene Glycol (Miralax) 17 gm PO DAILY [facility] Last Admin: 02/27/19 10:51 Dose: 17 gm Polysaccharide Iron Complex (Ferrex 150) 150 mg PO DAILYCM [facility] Last Admin: 02/27/19 10:51 Dose: 150 mg Prochlorperazine Edisylate (Compazine Iv) 5 mg IV Q4H PRN PRN PRN Reason: Breakthrough nausea/vomiting Senna/Docusate Sodium (Senokot-S, Meghan-Colace) 2 tablet PO BID PRN PRN PRN Reason: Constipation Sodium Chloride () 10 ml IV UD PRN PRN Reason: VAD FLUSH Last Admin: 02/28/19 05:24 Dose: 10 ml Sodium Chloride () 10 ml IV UD PRN PRN Reason: VAD FLUSH Medical Necessity - Tobacco Use Smoking Status: Never smoker Assessment/Plan All Active Problems Dehydration (Acute) Constipation (Acute) Vomiting (Acute) Declining functional status (Acute) Complicated urinary tract infection (Acute) 1. UTI with a suprapubic catheter -She was growing greater than 100,000 Morganella morganii, and was treated appropriately with Rocephin -New urine culture is pending and she is currently on cefepime with a consult out to infectious disease -He was also started on Diflucan, given her extensive antibiotics recently there is concern she might have a yeast causing this new UTI which she has grown in the past -We will continue with her lactulose for her as well as MiraLAX -She is okay to have a regular diet as well as water which she her states that she can take at home -Per the he would like to return to [facility] if possible 2. Chronic MS with chronic right hemiparesis -PT/OT/speech therapy for evaluation and treatment -The does not think that he needs help at home from any healthcare agency though he would like if possible to have a Azar lift to make transferring at home easier if possible -We will continue her home antispastic medications 3. CKD stage IV with JAYY -Continue with IV fluids until taking adequate p.o. -Creatinine today is 2.11 we will continue to monitor continue with her D5 half- normal saline at 125 cc/h 4. History of TIA/HLD -Stable -Continue with aspirin and statin DVT: Heparin Code Visit Inpatient E&M: 87971 Subs Hosp L2
--- NOTE | 2019-02-28 10:37 | NURSING ---
Addendum entered by Diana Hoyos 02/28/19 10:39: upset that pt has dressing where she was stuck with needle- asked this RN why they are poking her when she has port. Notified that staff is aware she has port and would be a draw by nursing. Notified that stick was probably from admission and then agreed that it was from blood cultures. Original Note: Pt's Siva is very particular and states that he does not want Ching disturbed until she awakens-- has refused turns and refused all care until she awakens around 1200. Siva states he is a retired neuro RN and that he will be monitoring pt and does not want her disturbed. Pt resting with eyes closed, oxygen in place, breathing even and unlabored- no distress noted. This RN has been checking on pt since shift change this AM. Turns and all care refused until she awakens.
--- NOTE | 2019-02-28 11:19 | CON.PCM_ITS ---
Problem List (1) Fever Status: Acute Reason for Consult: fever Consulted by: Dr. Goldsmith History of Present Illness: The patient is a 64 year old F with MS, recurrent uti, suprapubic catheter, recently admitted and treated for morganella uti, sent to TCU, over few days there had congestion, cough, fever, decreased mental status. Transferred back, started on cefepime/fluc for empiric uti coverage. PCR (+) metapneumo. Improving, fever improved, history obtained from . ROS unobtainable due to mental status - Medical History Past Medical History (Chronic Problems): Chronic Problems Neurogenic bladder (Chronic) MRSA colonization (Chronic) Bilateral hydronephrosis (Chronic) Iron deficiency anemia (Chronic) Hypomagnesemia (Chronic) Hydronephrosis (Chronic) Bilateral. Vitamin D deficiency (Chronic) Muscle spasm (Chronic) OAB (overactive bladder) (Chronic) Allergic rhinitis (Chronic) Insomnia (Chronic) Hyperlipidemia (Chronic) CKD (chronic kidney disease) stage 4, GFR 15-29 ml/min (Chronic) Transient ischemic attack (Chronic) Multiple sclerosis (Chronic) Right hemiparesis (Chronic) Migraine headache (Chronic) Allergies/Adverse Reactions: Allergies ciprofloxacin [From Cipro] Adverse Reaction (Verified 02/26/19 20:55) hypotension interacts w/ zanaflex and baclofen doxycycline Adverse Reaction (Verified 02/26/19 20:55) hypotension interacts w/ zanaflex and baclofen levofloxacin [From Levaquin] Adverse Reaction (Verified 02/26/19 20:55) hypotension interacts w/ zanaflex and baclofen morphine Adverse Reaction (Verified 02/26/19 20:55) hallucinations piperacillin [From Zosyn] Adverse Reaction (Verified 02/26/19 20:55) hypotension interacts w/ zanaflex and baclofen sulfamethoxazole [From Bactrim] Adverse Reaction (Verified 02/26/19 20:55) hypotension interacts w/ zanaflex and baclofen tazobactam [From Zosyn] Adverse Reaction (Verified 02/26/19 20:55) hypotension interacts w/ zanaflex and baclofen trimethoprim [From Bactrim] Adverse Reaction (Verified 02/26/19 20:55) hypotension interacts w/ zanaflex and baclofen vancomycin Adverse Reaction (Verified 02/26/19 20:55) developed toxic levels Home Medications: Ambulatory Orders Medication Instructions Recorded Aspirin E.C. [Ecotrin] 81 mg PO QHS 12/04/16 Atorvastatin Calcium [Lipitor] 40 mg PO QHS 09/05/17 Iron Polysaccharide Complex 150 mg PO DAILYCM 09/05/17 [Ferrex 150] Magnesium Oxide [Mag-Ox 400] 400 mg PO QHS 09/05/17 Amitriptyline HCl [Elavil] 75 mg PO QHS 09/19/17 Lactulose [Chronulac] 40 gm PO QODAY@2200 09/19/17 Baclofen 20 mg PO QHS 07/01/18 Baclofen [Lioresal] 10 mg PO BID 07/01/18 Bisacodyl [Dulcolax] 10 mg RECTAL QODAY 07/01/18 Calcitriol [Rocaltrol] 0.25 mcg PO QHS 07/01/18 ALPRAZolam [Xanax] 0.5 mg PO QHS 02/15/19 Acetaminophen [Tylenol] 1,000 mg PO PRN PRN 02/15/19 Melatonin 10 mg PO QHS 02/15/19 Fluticasone 0.05% [Flonase Nasal 1 spray NASAL BID 02/26/19 [place]] Loratadine 5 mg PO DAILY@1800 02/26/19 Mineral Oil/Petrolatum,White 1 applic TOPICAL BID PRN PRN 02/26/19 [Eucerin] Nystatin Powder [Mycostatin Powder] 1 applic TOPICAL BID 02/26/19 - Social History Tobacco Use: non-smoker Vital Signs Temp Pulse Resp BP Pulse Ox 98.1 F 77 18 120/66 94 02/28/19 02:54 02/28/19 02:54 02/28/19 02:54 02/28/19 02:54 02/28/19 07:04 Oxygen Flow Rate (L/min) 2 Oxygen Delivery Method Nasal Cannula Weight: 70.6 kg Body Mass Index (BMI) 22.3 Finger Stick Blood Glucose 67 Laboratory Tests Past 24 Hrs 02/28/19 05:23 Sodium 141 Potassium 4.3 Chloride 105 Carbon Dioxide 30.0 Anion Gap 6 BUN 30 H Creatinine 2.11 H Estim Creat Clear Calc 29.13 Est GFR (MDRD) Af Amer 30 L Est GFR (MDRD) Non-Af 25 L BUN/Creatinine Ratio 14.2 Glucose 105 Calcium 8.2 L - Other Studies Radiology: [] reviewed Other Studies: [] Route of nutrition/ use of supplements: [] Nutritional Intake: [] IV Site: [] Maldonado Catheter: [] - Physical Exam General: No apparent distress, Lethargic HEENT: Atraumatic, PERRLA, EOMI Neck: Supple, No Nodes Lungs: Diminished Cardiovascular: Regular rate, Regular Rhythm Abdomen: Soft, Non Tender, Non-Distended Extremities: No edema Skin: No rashes IV Site: Peripheral, without redness Musculoskeletal: No Tenderness to Palpation of Joints or Extremities - Assessment/Plan Antibiotics: [] Assessment/Plan: [] Sepsis (fever, tachycardia) due to human metapneumo virus - improving. UA with improved pyuria, ucx neg so far. Has chronic colonization. Will stop cefepime and fluc and monitor off of abx. Will follow, thank you. D/w Dr. Goldsmith
[2019-02-28 11:50] VITALS: BP 118/79; PULSE 66; RESP 18; TEMP 36.6; O2SAT 98
--- NOTE | 2019-02-28 12:00 | CASEMGMT ---
Social Work Note Pt came from TCU. DICK met with pt and pt's Siva. Siva confirms plan is for pt to return to TCU and would like to submit for pre-cert again in the hopes that insurance will approve for pt to go to TCU this time. DICK explained that insurance approval is not guaranteed and that this worker can send referral but again can't guarantee that pt will be approved. Siva states understanding. DICK placed a call to Gisela in TCU. DICK informed Gisela that this worker will submit for LOC again and that pt's would like pt to return to TCU. DICK will submit referral to [employer] for LOC once PT/OT evaluates pt. Gisela states she is able to accept pt back to TCU. Plan: DICK to submit for LOC through [employer] once PT/OT evaluates pt. TCU pending LOC and pre-cert Kelsie Armendariz COMMUNITY HEALTH COUNSELOR, [employer]IC
[2019-02-28] MEDS: Baclofen 10 MG Tablet PO ×2 (12:06→22:44)
[2019-02-28] MEDS: Fluticasone 0.05% 1 SPRAY NASAL.SRY NASAL ×2 (12:07→22:59)
[2019-02-28] MEDS: Nystatin Powder 15gm Bottle 1 APPLIC TOPICAL ×2 (12:07→23:01)
[2019-02-28] MEDS: Iron Polysaccharide Complex 150 MG CAPSULE PO (12:07)
[2019-02-28] MEDS: Polyethylene Glycol 3350 17 GM PACKET PO (12:07)
[2019-02-28 14:12] VITALS: PULSE 71; RESP 16; O2SAT 91
[2019-02-28] MEDS: Albuterol 2.5 MG/3 ML VIAL.NEB. INHALATION (14:14)
[2019-02-28 17:50] VITALS: BP 134/78; PULSE 87; RESP 18; TEMP 37; O2SAT 93
[2019-02-28] MEDS: Loratadine 10 MG Tablet 5 MG PO (18:38)
[2019-02-28 22:38] VITALS: BP 117/68; PULSE 88; RESP 18; TEMP 36.8; O2SAT 92
[2019-02-28] MEDS: Aspirin E.C. 81 MG Tablet PO (22:43)
[2019-02-28] MEDS: Amitriptyline 25 MG Tablet 75 MG PO (22:44)
[2019-02-28] MEDS: Magnesium Oxide 400 MG Tablet PO (22:44)
[2019-02-28] MEDS: Baclofen 10 MG Tablet 20 MG PO (22:44)
[2019-02-28] MEDS: MELATONIN 10 MG TABLET PO (22:45)
[2019-02-28] MEDS: ALPRAZolam 0.5 MG Tablet PO (22:45)
[2019-02-28] MEDS: Calcitriol 0.25 MCG Capsule PO (22:45)
[2019-02-28] MEDS: Atorvastatin Calcium 40 MG Tablet PO (22:45)
[2019-02-28] MEDS: Lactulose 20 GM/30 ML UDC 40 GM PO (22:56)
[2019-03-01] MEDS: Dext 5%-0.45% NS 1,000 ML 125 ML IV ×2 (03:44→12:20)
[2019-03-01] MEDS: 0.9% NaCl VAD Flush 10 ML IV ×3 (06:22→06:26)
--- NOTE | 2019-03-01 06:49 | NURSING ---
pt refused morning labs
[2019-03-01 07:00] LABS: Anion Gap 6 (5-15); BUN 22 mg/dL (7-18); BUN/Creat Ratio 11.6 RATIO (10-20); Calcium,Total 8.6 mg/dL (8.5-10.1); Chloride 108 mmol/L (98-107); EST Glomerular Filtration Rate 28 mL/min (>60); Est Glom Filt Rate - Afr Amer 34 mL/min (>60); Estimated Creatinine Clearance 32.35 ml/min; Glucose 96 mg/dL (74-106); Potassium 3.9 mmol/L (3.5-5.1); Sodium Level 143 mmol/L (136-145)
[2019-03-01 07:30] VITALS: O2SAT 92
[2019-03-01 10:12] VITALS: BP 130/75; PULSE 74; RESP 16; TEMP 36.7; O2SAT 93
[2019-03-01] MEDS: Iron Polysaccharide Complex 150 MG CAPSULE PO (10:17)
[2019-03-01] MEDS: Polyethylene Glycol 3350 17 GM PACKET PO (10:18)
[2019-03-01] MEDS: Fluticasone 0.05% 1 SPRAY NASAL.SRY NASAL (10:18)
[2019-03-01] MEDS: Baclofen 10 MG Tablet PO (10:22)
[2019-03-01] MEDS: Nystatin Powder 15gm Bottle 1 APPLIC TOPICAL (10:23)
[2019-03-01] MEDS: Bisacodyl 10 MG Suppository RECTAL (10:26)
--- NOTE | 2019-03-01 12:14 | TREXTCAR_ITS ---
- Diet 02/27/19 10:06 Diet: Regular Diet Liquid Consistency:: [employer] Thick Type of Dietary Supplement:: Ensure Complete Is pt able to select menu?: Yes Diet Comments: Dysphagia diet - Routine Orders/Code Status Routine Lab Work: [facility] Code Status: Full Code - Wound(s) RLE Wound Type: SCAB WOUND RIGHT ELBOW Wound Type: Abrasion right hip Wound Type: Abrasion - Therapies Physical Therapy: Eval and Treat Occupational Therapy: Eval and Treat Speech Therapy: Eval and Treat - Allergies/Procedures Done in Hospital Allergies/Adverse Reactions: Allergies ciprofloxacin [From Cipro] Adverse Reaction (Verified 02/26/19 20:55) hypotension interacts w/ zanaflex and baclofen doxycycline Adverse Reaction (Verified 02/26/19 20:55) hypotension interacts w/ zanaflex and baclofen levofloxacin [From Levaquin] Adverse Reaction (Verified 02/26/19 20:55) hypotension interacts w/ zanaflex and baclofen morphine Adverse Reaction (Verified 02/26/19 20:55) hallucinations piperacillin [From Zosyn] Adverse Reaction (Verified 02/26/19 20:55) hypotension interacts w/ zanaflex and baclofen sulfamethoxazole [From Bactrim] Adverse Reaction (Verified 02/26/19 20:55) hypotension interacts w/ zanaflex and baclofen tazobactam [From Zosyn] Adverse Reaction (Verified 02/26/19 20:55) hypotension interacts w/ zanaflex and baclofen trimethoprim [From Bactrim] Adverse Reaction (Verified 02/26/19 20:55) hypotension interacts w/ zanaflex and baclofen vancomycin Adverse Reaction (Verified 02/26/19 20:55) developed toxic levels - Type of Care/Length of Stay Estimated LOS: Convalescent Care Less Than 30 days Type of Care Needed: Skilled Rehab Potential: Good Prognosis: Good - Additional Orders/Day of Discharge Day of Discharge: 03/01/19 - Dietary and Speech Recommendations Dietitian Recommendations/Changes: Will provide ensure pudding or magic cup w/ meals instead of ensure enlive - Follow Up Care Primary Care Physician: Alexandria Carranza MD [Primary Care Provider] - Please follow up with your Primary Care Physician in: 3-5 days
--- NOTE | 2019-03-01 12:25 | DS.PCM_ITS ---
Discharge Date and Diagnosis - Problem List Patient Problems: Active and Suspected Problems Fever (Acute) Date of Admission: 02/26/19 Date of Discharge: 03/01/19 - Primary Discharge Diagnosis Active and Suspected Problems Fever (Acute) - Secondary Discharge Diagnosis Chronic Problems Neurogenic bladder (Chronic) MRSA colonization (Chronic) Bilateral hydronephrosis (Chronic) Iron deficiency anemia (Chronic) Hypomagnesemia (Chronic) Hydronephrosis (Chronic) Bilateral. Vitamin D deficiency (Chronic) Muscle spasm (Chronic) OAB (overactive bladder) (Chronic) Allergic rhinitis (Chronic) Insomnia (Chronic) Hyperlipidemia (Chronic) CKD (chronic kidney disease) stage 4, GFR 15-29 ml/min (Chronic) Transient ischemic attack (Chronic) Multiple sclerosis (Chronic) Right hemiparesis (Chronic) Migraine headache (Chronic) Hospital Course and Treatment Imaging Results: None Consults: ID Operations: None Procedures: None Summary of Care Provided: Per HPI: The patient is a 64 year old F with multiple comorbidities as listed above, discharged on 02/22 after she was symptomatically managed for constipation and had CT abdomen along with acute cystitis with Morganella morganii back to ER with high fever. Pressure noted in TC 103 Fahrenheit. In ED 102.1 Fahrenheit. Heart rate in 100s. Pulse ox 92% on 3 L of oxygen. In ED, no UA was done. Urine culture is pending patient also has wet cough and his chronic right hemidiaphragm elevation. Patient denies chest pain/pressure, shortness of breath but has very compromised oral hygiene. Previous urine culture on 02/15 shows Morganella morganii. Prior to that in [facility] 2019 MRSA. No leukocytosis. Lactic acid normal Hospital Course: 1. Sepsis secondary to URI from human metapneumovirus present on admission- 64 yo F with a h/o MS and UTI with a suprapubic catheter in place presented with fever, tachycardia without a leukocytosis. She also had a wet cough and SOB, which has resolved. The respiratory panel came back positive for metapneumo virus. Since she has a chronic suprapubic catheter in place, many of her urine cultures are likely colonizers, her urine culture is pending. Will plan to DC back to TCU today for continued physical therapy. 2. Chronic constipation/MS- We will continue with her bowel regimen and add miralax to be given if she has not had a BM in 2 days. A boris lift at home is still pending at the moment. No changes to her medications were mad 3. Her other diagnoses were evaluated in her home medications were continued where appropriate Patient Problems: Active and Suspected Problems Fever (Acute) Objective: General: Alert, Oriented x3, Cooperative, No apparent distress HEENT: Atraumatic, PERRLA, EOMI, Normocephalic Oral: Dry Mucosa Neck: Supple, No JVD Lungs: Clear to auscultation, Normal air movement, No rhonchi, No wheeze, No rales, Diminished Cardiovascular: Regular rate, Regular Rhythm, Normal S1, Normal S2, No murmurs Abdomen: Soft, Non Tender, Non-Distended, No Hepato-splenomegaly Extremities: No edema, Capillary Refill Less than 3 Seconds Skin: No rashes, No breakdown Neurological: Neuro grossly intact, Sensory exam intact to light touch and pain, - - Chronic right hemiparesis Psych/Mental Status: Normal Affect, Appropriate - Physical Exam Vital Signs Temp Pulse Resp BP Pulse Ox 98.0 F 74 16 130/75 H 93 03/01/19 10:12 03/01/19 10:12 03/01/19 10:12 03/01/19 10:12 03/01/19 10:12 Oxygen Flow Rate (L/min) 2 Oxygen Delivery Method Room Air Weight: 155 lb 10.342 oz Body Mass Index (BMI) 22.3 Finger Stick Blood Glucose 67 Intake and Output for Last 24 Hours 02/27/19 02/28/19 03/01/19 23:59 23:59 23:59 Intake Total 3120 / 3120 4839 / 4839 1772 / 1772 Output Total 875 / 875 2650 / 2650 1800 / 1800 Balance 2245 / 2245 2189 / 2189 -28 / -28 Laboratory Tests Past 24 Hrs 03/01/19 06:15 Sodium 143 Potassium 3.9 Chloride 108 H Carbon Dioxide 29.0 Anion Gap 6 BUN 22 H Creatinine 1.90 H Estim Creat Clear Calc 32.35 Est GFR (MDRD) Af Amer 34 L Est GFR (MDRD) Non-Af 28 L BUN/Creatinine Ratio 11.6 Glucose 96 Calcium 8.6 Home Medications: Medications to take at Discharge Aspirin E.C. [Ecotrin] 81 mg PO QHS 12/04/16 Atorvastatin Calcium [Lipitor] 40 mg PO QHS 09/05/17 Iron Polysaccharide Complex [Ferrex 150] 150 mg PO DAILYCM 09/05/17 Magnesium Oxide [Mag-Ox 400] 400 mg PO QHS 09/05/17 Amitriptyline HCl [Elavil] 75 mg PO QHS 09/19/17 Lactulose [Chronulac] 40 gm PO QODAY@2200 09/19/17 Baclofen 20 mg PO QHS 07/01/18 Baclofen [Lioresal] 10 mg PO BID 07/01/18 Bisacodyl [Dulcolax] 10 mg RECTAL QODAY 07/01/18 Calcitriol [Rocaltrol] 0.25 mcg PO QHS 07/01/18 ALPRAZolam [Xanax] 0.5 mg PO QHS 02/15/19 Acetaminophen [Tylenol] 1,000 mg PO PRN PRN 02/15/19 Melatonin 10 mg PO QHS 02/15/19 Fluticasone 0.05% [Flonase Nasal [place]] 1 spray NASAL BID 02/26/19 Loratadine 5 mg PO DAILY@1800 02/26/19 Mineral Oil/Petrolatum,White [Eucerin] 1 applic TOPICAL BID PRN PRN 02/26/19 Nystatin Powder [Mycostatin Powder] 1 applic TOPICAL BID 02/26/19 Polyethylene Glycol 3350 [Miralax] 17 gm PO DAILY PRN packet 03/01/19 Primary Care Physician: Alexandria Carranza MD [Primary Care Provider] - Please follow up with your Primary Care Physician in: 3-5 days Disposition: Half-Way facility Minutes spent on discharge:: 35 Patient Condition:: Stable Medical Necessity - Tobacco Use Smoking Status: Never smoker Meaningful Use Info Meaningful Use Diagnoses (Choose all that apply): None applicable Code Visit Inpatient E&M: 96907 Disch Hosp
--- NOTE | 2019-03-01 15:03 | CASEMGMT ---
Addendum entered by Kelsie Armendariz 03/01/19 15:42: SW also placed a call to Lynsey with TCU and left message informing her that pt will be discharged to TCU today private pay and that LOC will be submitted today but that pt is still able to discharge to TCU. Original Note: Social Work Note Physician asked if pt could be discharged to TCU today even without pre-cert as pt was paying privately to be at TCU and paid for a month up front. Physician states he spoke with pt's regarding this and pt's is agreeable to pt being discharged to TCU today without pre-cert. Physician states that he spoke with Gisela in TCU who is also agreeable to pt discharge today without pre-cert. SW spoke with Gisela in TCU who confirms she is able to accept pt today without pre-cert. SW met with pt's Siva. Siva confirms that he is agreeable to pt going to TCU today without pre-cert. SW explained that this worker will send initial LOC to [facility] today and if they are agreeable to LOC for pt then TCU can submit for pre-cert. Siva asked this worker if pt gets denied again if physician will do peer to peer. SW explained that physician would have to be agreeable to do peer to peer and that physician had mentioned to this worker earlier that if denied he likely wouldn't do peer to peer. Siva still agreeable to pt going to TCU today without pre-cert approval. SW faxed LOC to [facility]. SW placed a call to [facility], left message, providing referral. SW waiting to hear from [facility] regarding LOC. Plan: Pt to discharge to TCU private pay today. If pre-cert is obtained, insurance will pay for pt to stay on TCU and Siva won't be responsible for private pay after the day that pre-cert is obtained. If pt gets denied again by insurance, pt will continue to pay privately for TCU. Kelsie Armendariz PYROTECHNICIAN, PRINCIPAL BIOSTATISTICIAN
[2019-03-01 15:09] VITALS: BP 133/73; PULSE 90; RESP 16; TEMP 36.8; O2SAT 94
--- NOTE | 2019-03-01 15:20 | PCM.PN.ID ---
Patient Problems: Active and Suspected Problems Fever (Acute) Subjective: Multiple BM after recent constipation. No fever. at bedside. - Physical Exam General: No apparent distress Lungs: Clear to auscultation, Normal air movement Cardiovascular: Regular rate, Regular Rhythm Abdomen: Soft, Non Tender, Non-Distended Skin: No rashes Vital Signs Temp Pulse Resp BP Pulse Ox 98.3 F 90 16 133/73 H 94 03/01/19 15:09 03/01/19 15:09 03/01/19 15:09 03/01/19 15:09 03/01/19 15:09 Oxygen Flow Rate (L/min) 2 Oxygen Delivery Method Room Air Weight: 70.6 kg Body Mass Index (BMI) 22.3 Finger Stick Blood Glucose 67 Intake and Output for Last 24 Hours 02/27/19 02/28/19 03/01/19 23:59 23:59 23:59 Intake Total 3120 / 3120 4839 / 4839 1772 / 1772 Output Total 875 / 875 2650 / 2650 1800 / 1800 Balance 2245 / 2245 2189 / 2189 -28 / -28 Laboratory Tests Past 24 Hrs 03/01/19 06:15 Sodium 143 Potassium 3.9 Chloride 108 H Carbon Dioxide 29.0 Anion Gap 6 BUN 22 H Creatinine 1.90 H Estim Creat Clear Calc 32.35 Est GFR (MDRD) Af Amer 34 L Est GFR (MDRD) Non-Af 28 L BUN/Creatinine Ratio 11.6 Glucose 96 Calcium 8.6 Medical Necessity - Tobacco Use Smoking Status: Never smoker Route of nutrition/ use of supplements: [] Nutritional Intake: [] IV Site: [] Maldonado Catheter: [] - Assessment/Plan Antibiotics: [] Assessment/Plan: [] Sepsis (fever, tachycardia) due to human metapneumo virus - improving. UA with improved pyuria, ucx with staph so far, but she has known chronic colonization. Lungs improved, no fever off of abx. Will follow as needed, d/w Dr. Goldsmith
== END 2019-03-01 16:15 | disposition skilled nursing facility (03) | DRG 871 ==
LOC: ED 21:31 → MS3 02-27 00:09
PROVIDERS: Admitting Provider Internal Medicine; Emergency Provider Emergency Medicine; Family Provider Internal Medicine; PCP Internal Medicine; Visit Provider Family Medicine
DX: A41.89 Other specified sepsis (principal); R53.2 Functional quadriplegia; N17.9 Acute kidney failure, unspecified; N18.4 Chronic kidney disease, stage 4 (severe); B37.0 Candidal stomatitis; J06.9 Acute upper respiratory infection, unspecified; B97.81 Human metapneumovirus as the cause of diseases classified elsewhere; G35 Multiple sclerosis; N31.9 Neuromuscular dysfunction of bladder, unspecified; E86.0 Dehydration; R13.10 Dysphagia, unspecified; N32.81 Overactive bladder; D50.9 Iron deficiency anemia, unspecified; E83.42 Hypomagnesemia; E78.5 Hyperlipidemia, unspecified; K59.00 Constipation, unspecified; E55.9 Vitamin D deficiency, unspecified; F41.9 Anxiety disorder, unspecified; Z79.82 Long term (current) use of aspirin; Z22.322 Carrier or suspected carrier of Methicillin resistant Staphylococcus aureus; Z79.899 Other long term (current) drug therapy; Z86.73 Personal history of transient ischemic attack (TIA), and cerebral infarction without residual deficits; Z86.2 Personal history of diseases of the blood and blood-forming organs and certain disorders involving the immune mechanism; Z86.14 Personal history of Methicillin resistant Staphylococcus aureus infection
CPT/HCPCS: 36591; 80048; 80053; 83605; 84484; 85025; 85610; 85730; 92610; 93005; 94640; 94668; 97163; 97167; 97802; 99284; J7030; A4216; J7799

== ENCOUNTER 2019-03-01 10:29 | Outpatient (RCR) | payer MEDICARE, SELFPAY ==
--- NOTE | 2019-02-24 17:25 | HP.SP.DC ---
ST Discharge Summary - Discharged: Discharge: The Patient is a 64 year old female who attended 12 skilled speech-language intervention sessions spanning from 11/11/2017 to 01/05/2019 targeting moderate to severe oropharyngeal dysphagia in addition to moderate dysarthria secondary to the diagnosis of multiple sclerosis exacerbated from baseline abilities. The Patient participated in intervention sessions consisting of diet texture management, training and implementation of recommend compensatory intake strategies, and modified [place] Rubi Voice Therapy (LSVT) implementation. Progress has been complicated by multiple bouts of insomnia, and most recently secondary to a 02/15/2019 acute care admission secondary to acute urinary tract infection, complicated by dehydration, acute on chronic kidney failure, and constipation that has resulted in her current [facility] Unit admission. Will discharge from the skilled speech-language pathology caseload at this time, though would gladly re-initiate intervention as needed post Transitional Care Unit admission.
[2019-02-27 00:13] VITALS: BMI 22.3
== END 2019-03-01 10:30 | disposition home or self-care (01) ==
LOC: SP 10:29
PROVIDERS: Family Provider Internal Medicine; PCP Internal Medicine; Referring Provider Internal Medicine; Visit Provider Internal Medicine
DX: R13.12 Dysphagia, oropharyngeal phase (principal); R47.1 Dysarthria and anarthria; G35 Multiple sclerosis

== ENCOUNTER 2019-03-01 16:41 | Inpatient (IN) | payer MEDICARE, SELFPAY ==
[2019-02-27 00:13] VITALS: BMI 22.3
[2019-03-01 16:52] VITALS: BP 145/95; PULSE 88; RESP 18; TEMP 37.1; O2SAT 90
--- NOTE | 2019-03-01 17:07 | NURSING ---
PT arrived from [facility] via bed at 1641, at side.
[2019-03-01 17:20] VITALS: BMI 22.8
[2019-03-01 17:24] VITALS: BMI 22.8
--- NOTE | 2019-03-01 17:41 | NURSING ---
CARE PROVIDED IN ROOM D/T CONTACT/DROPLET PRECAUTIONS.
[2019-03-01] MEDS: Loratadine 10 MG Tablet 5 MG PO (17:44)
[2019-03-01] MEDS: Nystatin Powder 15gm Bottle 1 APPLIC TOPICAL ×2 (17:45→21:53)
[2019-03-01] MEDS: Fluticasone 0.05% 1 SPRAY NASAL.SRY NASAL (17:45)
[2019-03-01] MEDS: Baclofen 10 MG Tablet PO (17:45)
[2019-03-01 20:24] VITALS: PULSE 91; O2SAT 96
--- NOTE | 2019-03-01 20:48 | PCM.HP.STD ---
Problem List (1) Sepsis Status: Acute (2) Infection due to human metapneumovirus (hMPV) Status: Acute (3) Neurogenic bladder Status: Chronic (4) MRSA colonization Status: Chronic (5) Bilateral hydronephrosis Status: Chronic (6) Iron deficiency anemia Status: Chronic (7) Hypomagnesemia Status: Chronic (8) Fever Status: Acute (9) Dehydration Status: Chronic (10) Constipation Status: Chronic (11) Complicated urinary tract infection Status: Chronic Comment: Chronic suprapubic catheter. (12) Vitamin D deficiency Status: Chronic (13) Muscle spasm Status: Chronic (14) OAB (overactive bladder) Status: Chronic (15) Allergic rhinitis Status: Chronic (16) Insomnia Status: Chronic (17) Hyperlipidemia Status: Chronic Qualifiers: (18) CKD (chronic kidney disease) stage 4, GFR 15-29 ml/min Status: Chronic (19) Transient ischemic attack Status: Chronic Qualifiers: (20) Multiple sclerosis Status: Chronic (21) Right hemiparesis Status: Chronic (22) Migraine headache Status: Chronic Qualifiers: History of Present Illness Date of Admission: 03/01/19 Chief Complaint: Here for rehabilitation, strengthening, prior to discharge home with spouse. The patient is a 64 year old Female with below past medical history TCU resident after hospitalization for constipation, dehydration, acute kidney injury. 02/26/2019 Resident developed fever 103, Resident sent to [facility] Emergency Department for admission to hospital. Respiratory panel positive for human metapneumovirus. Patient diagnosed with sepsis secondary to human metapneumovirus URI. 03/01/2019 Admit to TCU with debility, here for rehabilitation, strengthening, prior to discharge home with spouse. Past Medical History Past Medical History (Chronic Problems): Chronic Problems Neurogenic bladder (Chronic) MRSA colonization (Chronic) Bilateral hydronephrosis (Chronic) Iron deficiency anemia (Chronic) Hypomagnesemia (Chronic) Dehydration (Chronic) Constipation (Chronic) Hydronephrosis (Chronic) Bilateral. Complicated urinary tract infection (Chronic) Chronic suprapubic catheter. Vitamin D deficiency (Chronic) Muscle spasm (Chronic) OAB (overactive bladder) (Chronic) Allergic rhinitis (Chronic) Insomnia (Chronic) Hyperlipidemia (Chronic) CKD (chronic kidney disease) stage 4, GFR 15-29 ml/min (Chronic) Transient ischemic attack (Chronic) Multiple sclerosis (Chronic) Right hemiparesis (Chronic) Migraine headache (Chronic) Allergies ciprofloxacin [From Cipro] Adverse Reaction (Verified 02/26/19 20:55) hypotension interacts w/ zanaflex and baclofen doxycycline Adverse Reaction (Verified 02/26/19 20:55) hypotension interacts w/ zanaflex and baclofen levofloxacin [From Levaquin] Adverse Reaction (Verified 02/26/19 20:55) hypotension interacts w/ zanaflex and baclofen morphine Adverse Reaction (Verified 02/26/19 20:55) hallucinations piperacillin [From Zosyn] Adverse Reaction (Verified 02/26/19 20:55) hypotension interacts w/ zanaflex and baclofen sulfamethoxazole [From Bactrim] Adverse Reaction (Verified 02/26/19 20:55) hypotension interacts w/ zanaflex and baclofen tazobactam [From Zosyn] Adverse Reaction (Verified 02/26/19 20:55) hypotension interacts w/ zanaflex and baclofen trimethoprim [From Bactrim] Adverse Reaction (Verified 02/26/19 20:55) hypotension interacts w/ zanaflex and baclofen vancomycin Adverse Reaction (Verified 02/26/19 20:55) developed toxic levels Home Medications: Ambulatory Orders Medication Instructions Recorded Aspirin E.C. [Ecotrin] 81 mg PO QHS 12/04/16 Atorvastatin Calcium [Lipitor] 40 mg PO QHS 09/05/17 Iron Polysaccharide Complex 150 mg PO DAILYCM 09/05/17 [Ferrex 150] Magnesium Oxide [Mag-Ox 400] 400 mg PO QHS 09/05/17 Amitriptyline HCl [Elavil] 75 mg PO QHS 09/19/17 Lactulose [Chronulac] 40 gm PO QHS 09/19/17 Baclofen 20 mg PO QHS 07/01/18 Baclofen [Lioresal] 10 mg PO BID 07/01/18 Bisacodyl [Dulcolax] 10 mg RECTAL DAILY PRN 07/01/18 Calcitriol [Rocaltrol] 0.25 mcg PO QHS 07/01/18 ALPRAZolam [Xanax] 0.5 mg PO QHS 02/15/19 Acetaminophen [Tylenol] 1,000 mg PO PRN PRN 02/15/19 Melatonin 10 mg PO QHS 02/15/19 Fluticasone 0.05% [Flonase Nasal 1 spray NASAL BID 02/26/19 [place]] Loratadine 5 mg PO DAILY@1800 02/26/19 Mineral Oil/Petrolatum,White 1 applic TOPICAL BID PRN PRN 02/26/19 [Eucerin] Nystatin Powder [Mycostatin Powder] 1 applic TOPICAL BID 02/26/19 Polyethylene Glycol 3350 [Miralax] 17 gm PO DAILY PRN packet 03/01/19 Surgical History: adenoidectomy, tonsillectomy, - - Right shoulder surgery, ORIF right wrist, suprapubic catheter placement. 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 Paternal History Items: - - Denies known paternal medical history including cardiac history. Review of Systems Constitutional: Denies: Chills, Fever, Weight Change HEENT: Denies: Head Aches, Sinus Congestion, Sinus Drainage Cardiovascular: Denies: Chest Pain, Palpitations Respiratory: Denies: Cough, Shortness of breath at rest, Sputum production Gastrointestinal: Denies: Abdominal Pain, Nausea, Vomiting Genitourinary: Denies: Dysuria Musculoskeletal: Denies: Joint Pain, Joint Tenderness Skin: Denies: Rash, Wounds Neurological: Denies: Numbness, Tingling, Focal weakness Psychiatric: Denies: Anxiety, Depression, Homicidal Ideations, Suicidal Ideations Hematologic/ Lymphatic: Denies: Easy Bruising, Easy Bleeding VTE Information - Inpt Only VTE Present on Admission: No VTE Mechan Device Prophylaxis: Knee High ROMINA Hose VTE Pharm Prophylaxis ordered?: No Reason prophylaxis not ordered:: Medical Contraindication Patient Problems: Active and Suspected Problems Sepsis (Acute) Infection due to human metapneumovirus (hMPV) (Acute) - Physical Exam General: Alert, Oriented x3, Cooperative HEENT: Atraumatic, PERRLA, EOMI, Normocephalic Neck: Supple, No JVD, Negative Carotid Bruits Lungs: Clear to auscultation, Normal air movement Cardiovascular: Regular rate, No murmurs Abdomen: Bowel Sounds Present, Soft, Non Tender, - - Suprapubic catheter. Extremities: No edema, Capillary Refill Less than 3 Seconds Skin: No rashes, No breakdown Musculoskeletal: No Tenderness to Palpation of Joints or Extremities Neurological: Cranial nerves II-XII grossly intact Psych/Mental Status: Normal Affect, Appropriate Vital Signs Temp Pulse Resp BP Pulse Ox 98.8 F 91 18 145/95 H 96 03/01/19 16:52 03/01/19 20:24 03/01/19 16:52 03/01/19 16:52 03/01/19 20:24 Oxygen Delivery Method Room Air Weight: 72.121 kg Body Mass Index (BMI) 22.8 Finger Stick Blood Glucose 67 Assessment/Plan All Active Problems Fever (Acute) Sepsis (Acute) Infection due to human metapneumovirus (hMPV) (Acute) Vomiting (Acute) Declining functional status (Acute) 64 year old female with below past medical history hospitalized for sepsis secondary to human metapneumovirus URI, admitted to TCU with debility, here for rehabilitation, strengthening, prior to discharge home with spouse. Debility - PT/OT. Dysphagia - ST. Pain - Tylenol 1000MG daily PRN mild pain. Bowel - Miralax 17GM daily PRN, Lactulose 40GM QHS, Dulcolax 10MG SC daily PRN. Pneumonia vaccination - Administer Prevnar 13 and/or Pneumovax 23 as necessary. DVT prophylaxis - Hold Lovenox, bleeding from shots. Anxiety - Xanax 0.5MG QHS. Neuropathic pain - Elavil 75MG QHS. TIA - Aspirin 81MG daily. Hyperlipidemia - Atorvastatin 40MG QHS. Muscle spasm - Baclofen 10MG BID, 20MG QHS. Hyperparathyroidism - Calcitriol 0.25MCG QHS. Nutrition - Ensure Enlive 120ML 4x/day. Allergic Rhinitis - Flonase 1 spray BID. Iron deficiency anemia - Ferrex 150MG daily. Allergic Rhinitis - Loratadine 5MG daily. Hypomagnesemia - Magnesium Oxide 400MG QHS. Insomnia - Melatonin 10MG QHS. Skin irritation - Calmoseptine BID, Eucerin BID. Tinea Corporis - Nystatin powder BID.
--- NOTE | 2019-03-01 20:52 | HP.PCM_ITS ---
Problem List (1) Sepsis Status: Acute (2) Infection due to human metapneumovirus (hMPV) Status: Acute (3) Neurogenic bladder Status: Chronic (4) MRSA colonization Status: Chronic (5) Bilateral hydronephrosis Status: Chronic (6) Iron deficiency anemia Status: Chronic (7) Hypomagnesemia Status: Chronic (8) Fever Status: Acute (9) Dehydration Status: Chronic (10) Constipation Status: Chronic (11) Complicated urinary tract infection Status: Chronic Comment: Chronic suprapubic catheter. (12) Vitamin D deficiency Status: Chronic (13) Muscle spasm Status: Chronic (14) OAB (overactive bladder) Status: Chronic (15) Allergic rhinitis Status: Chronic (16) Insomnia Status: Chronic (17) Hyperlipidemia Status: Chronic Qualifiers: (18) CKD (chronic kidney disease) stage 4, GFR 15-29 ml/min Status: Chronic (19) Transient ischemic attack Status: Chronic Qualifiers: (20) Multiple sclerosis Status: Chronic (21) Right hemiparesis Status: Chronic (22) Migraine headache Status: Chronic Qualifiers: History of Present Illness Date of Admission: 03/01/19 Chief Complaint: Here for rehabilitation, strengthening, prior to discharge home with spouse. The patient is a 64 year old Female with below past medical history TCU resident after hospitalization for constipation, dehydration, acute kidney injury. 02/26/2019 Resident developed fever 103, Resident sent to [facility] Emergency Department for admission to hospital. Respiratory panel positive for human metapneumovirus. Patient diagnosed with sepsis secondary to human metapneumovirus URI. 03/01/2019 Admit to TCU with debility, here for rehabilitation, strengthening, prior to discharge home with spouse. Past Medical History Past Medical History (Chronic Problems): Chronic Problems Neurogenic bladder (Chronic) MRSA colonization (Chronic) Bilateral hydronephrosis (Chronic) Iron deficiency anemia (Chronic) Hypomagnesemia (Chronic) Dehydration (Chronic) Constipation (Chronic) Hydronephrosis (Chronic) Bilateral. Complicated urinary tract infection (Chronic) Chronic suprapubic catheter. Vitamin D deficiency (Chronic) Muscle spasm (Chronic) OAB (overactive bladder) (Chronic) Allergic rhinitis (Chronic) Insomnia (Chronic) Hyperlipidemia (Chronic) CKD (chronic kidney disease) stage 4, GFR 15-29 ml/min (Chronic) Transient ischemic attack (Chronic) Multiple sclerosis (Chronic) Right hemiparesis (Chronic) Migraine headache (Chronic) Allergies ciprofloxacin [From Cipro] Adverse Reaction (Verified 02/26/19 20:55) hypotension interacts w/ zanaflex and baclofen doxycycline Adverse Reaction (Verified 02/26/19 20:55) hypotension interacts w/ zanaflex and baclofen levofloxacin [From Levaquin] Adverse Reaction (Verified 02/26/19 20:55) hypotension interacts w/ zanaflex and baclofen morphine Adverse Reaction (Verified 02/26/19 20:55) hallucinations piperacillin [From Zosyn] Adverse Reaction (Verified 02/26/19 20:55) hypotension interacts w/ zanaflex and baclofen sulfamethoxazole [From Bactrim] Adverse Reaction (Verified 02/26/19 20:55) hypotension interacts w/ zanaflex and baclofen tazobactam [From Zosyn] Adverse Reaction (Verified 02/26/19 20:55) hypotension interacts w/ zanaflex and baclofen trimethoprim [From Bactrim] Adverse Reaction (Verified 02/26/19 20:55) hypotension interacts w/ zanaflex and baclofen vancomycin Adverse Reaction (Verified 02/26/19 20:55) developed toxic levels Home Medications: Ambulatory Orders Medication Instructions Recorded Aspirin E.C. [Ecotrin] 81 mg PO QHS 12/04/16 Atorvastatin Calcium [Lipitor] 40 mg PO QHS 09/05/17 Iron Polysaccharide Complex 150 mg PO DAILYCM 09/05/17 [Ferrex 150] Magnesium Oxide [Mag-Ox 400] 400 mg PO QHS 09/05/17 Amitriptyline HCl [Elavil] 75 mg PO QHS 09/19/17 Lactulose [Chronulac] 40 gm PO QHS 09/19/17 Baclofen 20 mg PO QHS 07/01/18 Baclofen [Lioresal] 10 mg PO BID 07/01/18 Bisacodyl [Dulcolax] 10 mg RECTAL DAILY PRN 07/01/18 Calcitriol [Rocaltrol] 0.25 mcg PO QHS 07/01/18 ALPRAZolam [Xanax] 0.5 mg PO QHS 02/15/19 Acetaminophen [Tylenol] 1,000 mg PO PRN PRN 02/15/19 Melatonin 10 mg PO QHS 02/15/19 Fluticasone 0.05% [Flonase Nasal 1 spray NASAL BID 02/26/19 [place]] Loratadine 5 mg PO DAILY@1800 02/26/19 Mineral Oil/Petrolatum,White 1 applic TOPICAL BID PRN PRN 02/26/19 [Eucerin] Nystatin Powder [Mycostatin Powder] 1 applic TOPICAL BID 02/26/19 Polyethylene Glycol 3350 [Miralax] 17 gm PO DAILY PRN packet 03/01/19 Surgical History: adenoidectomy, tonsillectomy, - - Right shoulder surgery, ORIF right wrist, suprapubic catheter placement. 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 Paternal History Items: - - Denies known paternal medical history including cardiac history. Review of Systems Constitutional: Denies: Chills, Fever, Weight Change HEENT: Denies: Head Aches, Sinus Congestion, Sinus Drainage Cardiovascular: Denies: Chest Pain, Palpitations Respiratory: Denies: Cough, Shortness of breath at rest, Sputum production Gastrointestinal: Denies: Abdominal Pain, Nausea, Vomiting Genitourinary: Denies: Dysuria Musculoskeletal: Denies: Joint Pain, Joint Tenderness Skin: Denies: Rash, Wounds Neurological: Denies: Numbness, Tingling, Focal weakness Psychiatric: Denies: Anxiety, Depression, Homicidal Ideations, Suicidal Ideations Hematologic/ Lymphatic: Denies: Easy Bruising, Easy Bleeding VTE Information - Inpt Only VTE Present on Admission: No VTE Mechan Device Prophylaxis: Knee High ROMINA Hose VTE Pharm Prophylaxis ordered?: No Reason prophylaxis not ordered:: Medical Contraindication Patient Problems: Active and Suspected Problems Sepsis (Acute) Infection due to human metapneumovirus (hMPV) (Acute) - Physical Exam General: Alert, Oriented x3, Cooperative HEENT: Atraumatic, PERRLA, EOMI, Normocephalic Neck: Supple, No JVD, Negative Carotid Bruits Lungs: Clear to auscultation, Normal air movement Cardiovascular: Regular rate, No murmurs Abdomen: Bowel Sounds Present, Soft, Non Tender, - - Suprapubic catheter. Extremities: No edema, Capillary Refill Less than 3 Seconds Skin: No rashes, No breakdown Musculoskeletal: No Tenderness to Palpation of Joints or Extremities Neurological: Cranial nerves II-XII grossly intact Psych/Mental Status: Normal Affect, Appropriate Vital Signs Temp Pulse Resp BP Pulse Ox 98.8 F 91 18 145/95 H 96 03/01/19 16:52 03/01/19 20:24 03/01/19 16:52 03/01/19 16:52 03/01/19 20:24 Oxygen Delivery Method Room Air Weight: 72.121 kg Body Mass Index (BMI) 22.8 Finger Stick Blood Glucose 67 Assessment/Plan All Active Problems Fever (Acute) Sepsis (Acute) Infection due to human metapneumovirus (hMPV) (Acute) Vomiting (Acute) Declining functional status (Acute) 64 year old female with below past medical history hospitalized for sepsis secondary to human metapneumovirus URI, admitted to TCU with debility, here for rehabilitation, strengthening, prior to discharge home with spouse. * Debility - PT/OT. * Dysphagia - ST. * Pain - Tylenol 1000MG daily PRN mild pain. * Bowel - Miralax 17GM daily PRN, Lactulose 40GM QHS, Dulcolax 10MG VT daily PRN. * Pneumonia vaccination - Administer Prevnar 13 and/or Pneumovax 23 as necessary. * DVT prophylaxis - Hold Lovenox, bleeding from shots. * Anxiety - Xanax 0.5MG QHS. * Neuropathic pain - Elavil 75MG QHS. * TIA - Aspirin 81MG daily. * Hyperlipidemia - Atorvastatin 40MG QHS. * Muscle spasm - Baclofen 10MG BID, 20MG QHS. * Hyperparathyroidism - Calcitriol 0.25MCG QHS. * Nutrition - Ensure Enlive 120ML 4x/day. * Allergic Rhinitis - Flonase 1 spray BID. * Iron deficiency anemia - Ferrex 150MG daily. * Allergic Rhinitis - Loratadine 5MG daily. * Hypomagnesemia - Magnesium Oxide 400MG QHS. * Insomnia - Melatonin 10MG QHS. * Skin irritation - Calmoseptine BID, Eucerin BID. * Tinea Corporis - Nystatin powder BID.
[2019-03-01] MEDS: Magnesium Oxide 400 MG Tablet PO (21:48)
[2019-03-01] MEDS: ALPRAZolam 0.5 MG Tablet PO (21:48)
[2019-03-01] MEDS: Calcitriol 0.25 MCG Capsule PO (21:48)
[2019-03-01] MEDS: Atorvastatin Calcium 40 MG Tablet PO (21:49)
[2019-03-01] MEDS: MELATONIN 10 MG TABLET PO (21:49)
[2019-03-01] MEDS: Baclofen 10 MG Tablet 20 MG PO (21:49)
[2019-03-01] MEDS: Amitriptyline 25 MG Tablet 75 MG PO (21:49)
[2019-03-01] MEDS: Aspirin E.C. 81 MG Tablet PO (21:49)
[2019-03-01] MEDS: Menthol/Lanolin/Calamine/Znox 113 GM Tube 1 APPLIC TOPICAL (21:53)
--- NOTE | 2019-03-02 04:12 | NURSING ---
All care provided in room d/t pt remains in precautions.
[2019-03-02] MEDS: Menthol/Lanolin/Calamine/Znox 113 GM Tube 1 APPLIC TOPICAL ×2 (05:01→21:40)
[2019-03-02] MEDS: Baclofen 10 MG Tablet PO ×2 (05:01→12:04)
[2019-03-02] MEDS: 0.9% NaCl VAD Flush 10 ML IV ×2 (05:01→21:48)
[2019-03-02] MEDS: Nystatin Powder 15gm Bottle 1 APPLIC TOPICAL ×2 (05:02→21:41)
[2019-03-02] MEDS: Fluticasone 0.05% 1 SPRAY NASAL.SRY NASAL ×2 (05:03→17:40)
[2019-03-02 05:37] LABS: Anion Gap 7 (5-15); BUN 25 mg/dL (7-18); BUN/Creat Ratio 13.4 RATIO (10-20); Calcium,Total 8.8 mg/dL (8.5-10.1); Chloride 107 mmol/L (98-107); Creatinine, Serum 1.86 mg/dL (0.55-1.02); EST Glomerular Filtration Rate 29 mL/min (>60); Est Glom Filt Rate - Afr Amer 35 mL/min (>60); Estimated Creatinine Clearance 33.04 ml/min; Glucose 83 mg/dL (74-106); Potassium 4.1 mmol/L (3.5-5.1); Sodium Level 144 mmol/L (136-145)
[2019-03-02 05:38] LABS: Absolute Lymphocyte Count 1.87 X10^3/ul (0.83-4.51); Absolute Neutrophil Count 4.9 X10^3/uL (2.0-7.7); Basophil# 0.03 X10^3/uL; Basophil% 0.4 % (0-1); Eosinophil# 0.33 X10^3/uL; Eosinophils% 4.2 % (0-5); Hematocrit 32.6 % (37-47); Hemoglobin 10.3 g/dl (12.0-15.0); Lymphocyte # 1.87 X10^3/ul (4.0); Lymphocyte % 23.9 % (19-41); Mean Corp Hgb Conc 31.6 g/gl (32-36); Mean Corpuscular Hgb 29.1 pg (27.0-32.0); Mean Corpuscular Volume 92.1 fL (81-99); Mean Platelet Vol. 9.8 fl (6.2-12.0); Monocyte# 0.71 X10^3/uL; Monocyte% 9.1 % (0-10); Neutrophil # 4.89 X10^3/uL (2.7-7.7); Neutrophil % 62.3 % (47-70); Platelet Count 235 K/mm3 (150-450); RBC Distribution Width CV 15.4 % (11.6-14.6); RBC Distribution Width SD 52.3 fl (35.1-43.9); Red Blood Count 3.54 M/mm3 (4.2-5.4); White Blood Count 7.8 K/mm3 (4.4-11.0)
[2019-03-02 05:39] LABS: POSITIVE COUNT NO; POSITIVE DIFFERENTIAL NO; POSITIVE MORPHOLOGY NO
[2019-03-02] MEDS: Iron Polysaccharide Complex 150 MG CAPSULE PO (09:47)
[2019-03-02] MEDS: Tuberculin,Purif.prot.deriv. 50 TU/ML Vial 5 ML ID (12:04)
--- NOTE | 2019-03-02 12:17 | CASEMGMT ---
Social Work Note DICK spoke with Radha at [facility]. Radha agrees with LOC for pt. DICK placed a call to Lynsey with TCU and informed her that [facility] agreed with LOC and she can submit for pre-cert. [place] INTEGRATION SOLUTION ARCHITECT updated. Kelsie Armendariz DOCUMENT ANALYST, INTEGRATION SOLUTION ARCHITECT
--- NOTE | 2019-03-02 15:33 | CHAPLAIN ---
Type of Pastoral Visit ___ Initial Visit _x__ Follow-up Visit ___ On-call Visit ___ General Patient Visit ___ Spiritual Assessment ___ Family Conference ___ Bereavement ___ Rapid Response ___ Code Blue ___ Other (describe below) Pastoral Care Referral From _x__ Patient _x__ Family ___ Nurse ___ Physician ___ Tool Planer Set Up Operator ___ Overhead Crane Inspector ___ Other (describe below) Sacrament/Intervention _x__ Active listening ___ Anointing ___ Alevism ___ Bereavement ___ Communion ___ Justine exploration ___ _x__ Life review _x__ Prayer ___ Reconciliation ___ Sacrament of Sick _x__ Supportive presence ___ Wedding ___ Other (describe below) Pastoral Comments most support given to spouse
[2019-03-02 16:00] VITALS: BP 123/77; PULSE 90; RESP 20; TEMP 36.5; O2SAT 90
[2019-03-02] MEDS: Loratadine 10 MG Tablet 5 MG PO (17:36)
[2019-03-02] MEDS: ALPRAZolam 0.5 MG Tablet PO (21:23)
[2019-03-02] MEDS: Calcitriol 0.25 MCG Capsule PO (21:24)
[2019-03-02] MEDS: Magnesium Oxide 400 MG Tablet PO (21:24)
[2019-03-02] MEDS: Aspirin E.C. 81 MG Tablet PO (21:24)
[2019-03-02] MEDS: MELATONIN 10 MG TABLET PO (21:24)
[2019-03-02] MEDS: Lactulose 20 GM/30 ML UDC 40 GM PO (21:24)
[2019-03-02] MEDS: Baclofen 10 MG Tablet 20 MG PO (21:24)
[2019-03-02] MEDS: Amitriptyline 25 MG Tablet 75 MG PO (21:24)
[2019-03-02] MEDS: Atorvastatin Calcium 40 MG Tablet PO (21:24)
[2019-03-02] MEDS: guaiFENesin Dm 10 ML UDC PO (21:43)
[2019-03-02 22:00] VITALS: O2SAT 93
[2019-03-03] MEDS: Menthol/Lanolin/Calamine/Znox 113 GM Tube 1 APPLIC TOPICAL ×2 (05:39→22:47)
[2019-03-03] MEDS: Baclofen 10 MG Tablet PO ×2 (05:39→13:30)
[2019-03-03] MEDS: Nystatin Powder 15gm Bottle 1 APPLIC TOPICAL ×2 (05:40→22:48)
[2019-03-03] MEDS: Fluticasone 0.05% 1 SPRAY NASAL.SRY NASAL ×2 (05:40→18:15)
[2019-03-03] MEDS: Iron Polysaccharide Complex 150 MG CAPSULE PO (09:32)
--- NOTE | 2019-03-03 10:24 | CASEMGMT ---
Insurance Pt has been approved for stay in TCU. Start date 03/03/19 with update due 03/08. Pt spouse notified. Auth#[id number] LUCILLE Calloway
[2019-03-03] MEDS: guaiFENesin Dm 10 ML UDC PO (12:17)
--- NOTE | 2019-03-03 14:36 | NURSING ---
Patient with low grade temp of 99.5, moist, productive cough. Dr. Feng notified, new orders for CBC with diff, BMP, CXR, sputu, culture with gram stain, respiratory panel. Patient and aware.
[2019-03-03 15:55] VITALS: PULSE 80; RESP 16
[2019-03-03 15:59] LABS: Anion Gap 5 (5-15); BUN 30 mg/dL (7-18); BUN/Creat Ratio 14.6 RATIO (10-20); Calcium,Total 9.3 mg/dL (8.5-10.1); Chloride 104 mmol/L (98-107); Creatinine, Serum 2.06 mg/dL (0.55-1.02); EST Glomerular Filtration Rate 26 mL/min (>60); Est Glom Filt Rate - Afr Amer 31 mL/min (>60); Estimated Creatinine Clearance 29.83 ml/min; Glucose 99 mg/dL (74-106); Potassium 4.4 mmol/L (3.5-5.1); Sodium Level 141 mmol/L (136-145)
[2019-03-03 16:00] VITALS: BP 119/73; PULSE 95; RESP 18; TEMP 37.1; O2SAT 90
[2019-03-03 16:11] LABS: Absolute Lymphocyte Count 2.26 X10^3/ul (0.83-4.51); Absolute Neutrophil Count 8.4 X10^3/uL (2.0-7.7); Basophil# 0.03 X10^3/uL; Basophil% 0.2 % (0-1); Eosinophil# 0.35 X10^3/uL; Eosinophils% 2.9 % (0-5); Hematocrit 35.5 % (37-47); Hemoglobin 11.4 g/dl (12.0-15.0); Lymphocyte # 2.26 X10^3/ul (4.0); Lymphocyte % 18.8 % (19-41); Mean Corp Hgb Conc 32.1 g/gl (32-36); Mean Corpuscular Hgb 29.4 pg (27.0-32.0); Mean Corpuscular Volume 91.5 fL (81-99); Mean Platelet Vol. 9.7 fl (6.2-12.0); Monocyte# 0.97 X10^3/uL; Monocyte% 8.1 % (0-10); Neutrophil # 8.39 X10^3/uL (2.7-7.7); Neutrophil % 69.7 % (47-70); Platelet Count 292 K/mm3 (150-450); RBC Distribution Width CV 15.5 % (11.6-14.6); RBC Distribution Width SD 51.8 fl (35.1-43.9); Red Blood Count 3.88 M/mm3 (4.2-5.4)
--- NOTE | 2019-03-03 16:18 | RAD_ITS ---
STUDY: X-RAY CHEST REASON FOR EXAM: Female, 64 years old. Fever TECHNIQUE: PA and lateral views of the chest. 02/26/2019 COMPARISON: 02/26/2019 FINDINGS: Left subclavian chest port which is unchanged. The lungs are clear and expanded. Markedly elevated right hemidiaphragm with some right lower lobe atelectasis which is unchanged. Normal size heart. Normal mediastinum and ramy. Normal visualized pulmonary arteries. Normal visualized aortic arch and descending thoracic aorta. Normal visualized thoracic spine. Normal visualized ribs, clavicles, and shoulders. There is no demonstrated abnormality of the visualized soft tissue structures of the upper abdomen. RAD/Chest PA and Lateral IMPRESSION: No change from 02/26/2019. Electronically Signed: Bill Carter MD at 16:30 EDT Tel , Service support ,
[2019-03-03 16:21] LABS: POSITIVE COUNT NO; POSITIVE DIFFERENTIAL NO; POSITIVE MORPHOLOGY NO
[2019-03-03] MEDS: Loratadine 10 MG Tablet 5 MG PO (18:14)
--- NOTE | 2019-03-03 19:10 | NURSING ---
diagnostic and lab results reviewed with Dr. Feng, new order for IV NS @ 100mL/hr from 8pm-8am, recheck BMP in AM.
[2019-03-03] MEDS: 0.9% Normal Saline 1,000 ML 100 ML IV (21:12)
[2019-03-03] MEDS: 0.9% NaCl VAD Flush 10 ML IV (21:12)
[2019-03-03] MEDS: Aspirin E.C. 81 MG Tablet PO (22:44)
[2019-03-03] MEDS: Lactulose 20 GM/30 ML UDC 40 GM PO (22:44)
[2019-03-03] MEDS: MELATONIN 10 MG TABLET PO (22:44)
[2019-03-03] MEDS: Calcitriol 0.25 MCG Capsule PO (22:44)
[2019-03-03] MEDS: Baclofen 10 MG Tablet 20 MG PO (22:44)
[2019-03-03] MEDS: Magnesium Oxide 400 MG Tablet PO (22:44)
[2019-03-03] MEDS: Amitriptyline 25 MG Tablet 75 MG PO (22:44)
[2019-03-03] MEDS: Atorvastatin Calcium 40 MG Tablet PO (22:44)
[2019-03-03] MEDS: ALPRAZolam 0.5 MG Tablet PO (22:47)
[2019-03-04] MEDS: Baclofen 10 MG Tablet PO ×2 (05:31→13:01)
[2019-03-04] MEDS: Nystatin Powder 15gm Bottle 1 APPLIC TOPICAL ×2 (05:31→20:16)
[2019-03-04] MEDS: Menthol/Lanolin/Calamine/Znox 113 GM Tube 1 APPLIC TOPICAL ×2 (05:32→20:16)
[2019-03-04] MEDS: Fluticasone 0.05% 1 SPRAY NASAL.SRY NASAL ×2 (05:32→17:05)
[2019-03-04] MEDS: 0.9% Normal Saline 1,000 ML 100 ML IV ×2 (06:45→22:19)
[2019-03-04 07:34] VITALS: PULSE 77; RESP 16
[2019-03-04] MEDS: Ipratropium/Albuterol Sulfate 3 ML AMPUL.NEB INHALATION ×3 (07:34→18:37)
[2019-03-04] MEDS: Iron Polysaccharide Complex 150 MG CAPSULE PO (09:22)
--- NOTE | 2019-03-04 09:32 | NURSING ---
pt disconnected from IV NS at this time
[2019-03-04] MEDS: guaiFENesin Dm 10 ML UDC PO (11:25)
--- NOTE | 2019-03-04 12:50 | NURSING ---
Called into pt's room by . He states that Ching is confused today and he thinks that her creatinine is elevated again, and she needs IV fluids continuous. I asked why he thinks pt is confused and he said that she asked if the kitchen is having trouble with her chicken for her chicken salad sandwich, and he said he hasn't ordered her one. I asked Ching if she was joking and she replied it started that way. I asked if he would order her lunch and he states that she hasn't had breakfast or lunch because he doesn't feel like her mental state is well enough to eat. Assured pt and that labs would be drawn as a priority and she really needs nutrition. All this conversation relayed to SHARLENE Blum her primary nurse
[2019-03-04 13:20] VITALS: PULSE 79; RESP 18
[2019-03-04 13:38] LABS: Anion Gap 3 (5-15); BUN 32 mg/dL (7-18); BUN/Creat Ratio 15.2 RATIO (10-20); Calcium,Total 8.9 mg/dL (8.5-10.1); Chloride 107 mmol/L (98-107); EST Glomerular Filtration Rate 25 mL/min (>60); Est Glom Filt Rate - Afr Amer 31 mL/min (>60); Estimated Creatinine Clearance 29.27 ml/min; Glucose 76 mg/dL (74-106); Potassium 4.8 mmol/L (3.5-5.1); Sodium Level 139 mmol/L (136-145)
--- NOTE | 2019-03-04 14:00 | PCA ---
patient refuses patient breakfast and lunch trays
[2019-03-04 16:00] VITALS: BP 121/78; PULSE 102; RESP 18; TEMP 37.7; O2SAT 90
[2019-03-04] MEDS: Loratadine 10 MG Tablet 5 MG PO (17:04)
[2019-03-04 18:37] VITALS: PULSE 97; RESP 18
[2019-03-04] MEDS: MELATONIN 10 MG TABLET PO (20:02)
[2019-03-04] MEDS: Amitriptyline 25 MG Tablet 75 MG PO (20:02)
[2019-03-04] MEDS: Lactulose 20 GM/30 ML UDC 40 GM PO (20:02)
[2019-03-04] MEDS: Aspirin E.C. 81 MG Tablet PO (20:02)
[2019-03-04] MEDS: Calcitriol 0.25 MCG Capsule PO (20:03)
[2019-03-04] MEDS: Magnesium Oxide 400 MG Tablet PO (20:03)
[2019-03-04] MEDS: Baclofen 10 MG Tablet 20 MG PO (20:04)
[2019-03-04] MEDS: Atorvastatin Calcium 40 MG Tablet PO (20:05)
[2019-03-04] MEDS: ALPRAZolam 0.5 MG Tablet PO (20:05)
--- NOTE | 2019-03-04 20:51 | NURSING ---
Offering to give suppository. Patient refusing at this time, states that she wants it later on in the morning.
--- NOTE | 2019-03-05 01:18 | NURSING ---
Care provided in room d/t pt remaining in precautions.
[2019-03-05] MEDS: Menthol/Lanolin/Calamine/Znox 113 GM Tube 1 APPLIC TOPICAL ×2 (05:29→21:33)
[2019-03-05] MEDS: Nystatin Powder 15gm Bottle 1 APPLIC TOPICAL ×2 (05:30→21:33)
[2019-03-05] MEDS: Baclofen 10 MG Tablet PO ×2 (05:32→12:59)
[2019-03-05] MEDS: Fluticasone 0.05% 1 SPRAY NASAL.SRY NASAL ×2 (05:37→17:21)
[2019-03-05 07:56] VITALS: PULSE 79; RESP 16
[2019-03-05] MEDS: Ipratropium/Albuterol Sulfate 3 ML AMPUL.NEB INHALATION ×3 (07:56→19:20)
[2019-03-05] MEDS: Iron Polysaccharide Complex 150 MG CAPSULE PO (08:52)
[2019-03-05] MEDS: 0.9% Normal Saline 1,000 ML 100 ML IV ×2 (08:59→17:30)
[2019-03-05] MEDS: Bisacodyl 10 MG Suppository RECTAL (13:00)
[2019-03-05 13:39] VITALS: PULSE 82; RESP 16
[2019-03-05 14:23] VITALS: BP 106/64; PULSE 88; RESP 18; TEMP 36.3; O2SAT 91
[2019-03-05] MEDS: Loratadine 10 MG Tablet 5 MG PO (17:21)
[2019-03-05 19:20] VITALS: PULSE 86; RESP 18
[2019-03-05] MEDS: MELATONIN 10 MG TABLET PO (21:18)
[2019-03-05] MEDS: Magnesium Oxide 400 MG Tablet PO (21:18)
[2019-03-05] MEDS: Baclofen 10 MG Tablet 20 MG PO (21:19)
[2019-03-05] MEDS: Calcitriol 0.25 MCG Capsule PO (21:19)
[2019-03-05] MEDS: Aspirin E.C. 81 MG Tablet PO (21:19)
[2019-03-05] MEDS: Amitriptyline 25 MG Tablet 75 MG PO (21:19)
[2019-03-05] MEDS: Atorvastatin Calcium 40 MG Tablet PO (21:21)
[2019-03-05] MEDS: ALPRAZolam 0.5 MG Tablet PO (21:21)
[2019-03-05] MEDS: Lactulose 20 GM/30 ML UDC 40 GM PO (21:23)
--- NOTE | 2019-03-05 22:35 | NURSING ---
Care provided in room d/t pt remaining in precautions.
[2019-03-06] MEDS: 0.9% Normal Saline 1,000 ML 100 ML IV ×2 (04:49→17:04)
[2019-03-06] MEDS: 0.9% NaCl VAD Flush 10 ML IV ×2 (04:52→04:59)
[2019-03-06] MEDS: Menthol/Lanolin/Calamine/Znox 113 GM Tube 1 APPLIC TOPICAL ×2 (05:00→21:24)
[2019-03-06] MEDS: Fluticasone 0.05% 1 SPRAY NASAL.SRY NASAL ×2 (05:01→17:04)
[2019-03-06] MEDS: Baclofen 10 MG Tablet PO ×2 (05:01→14:54)
[2019-03-06] MEDS: Nystatin Powder 15gm Bottle 1 APPLIC TOPICAL ×2 (05:01→21:26)
[2019-03-06 05:37] LABS: Anion Gap 9 (5-15); BUN 30 mg/dL (7-18); BUN/Creat Ratio 16.4 RATIO (10-20); Calcium,Total 8.7 mg/dL (8.5-10.1); Chloride 110 mmol/L (98-107); Creatinine, Serum 1.83 mg/dL (0.55-1.02); EST Glomerular Filtration Rate 30 mL/min (>60); Est Glom Filt Rate - Afr Amer 36 mL/min (>60); Estimated Creatinine Clearance 33.58 ml/min; Glucose 86 mg/dL (74-106); Potassium 4.4 mmol/L (3.5-5.1); Sodium Level 145 mmol/L (136-145)
[2019-03-06 06:30] VITALS: PULSE 88; RESP 20
[2019-03-06] MEDS: Ipratropium/Albuterol Sulfate 3 ML AMPUL.NEB INHALATION ×3 (06:30→19:50)
--- NOTE | 2019-03-06 08:05 | PCM.PN.RX ---
<ParishnorisivonneTd D - Last Filed: 03/06/19 08:05> Progress Note - Pharmacy Subjective: TCU Admission Objective: Allergies ciprofloxacin [From Cipro] Adverse Reaction (Verified 02/26/19 20:55) hypotension interacts w/ zanaflex and baclofen doxycycline Adverse Reaction (Verified 02/26/19 20:55) hypotension interacts w/ zanaflex and baclofen levofloxacin [From Levaquin] Adverse Reaction (Verified 02/26/19 20:55) hypotension interacts w/ zanaflex and baclofen morphine Adverse Reaction (Verified 02/26/19 20:55) hallucinations piperacillin [From Zosyn] Adverse Reaction (Verified 02/26/19 20:55) hypotension interacts w/ zanaflex and baclofen sulfamethoxazole [From Bactrim] Adverse Reaction (Verified 02/26/19 20:55) hypotension interacts w/ zanaflex and baclofen tazobactam [From Zosyn] Adverse Reaction (Verified 02/26/19 20:55) hypotension interacts w/ zanaflex and baclofen trimethoprim [From Bactrim] Adverse Reaction (Verified 02/26/19 20:55) hypotension interacts w/ zanaflex and baclofen vancomycin Adverse Reaction (Verified 02/26/19 20:55) developed toxic levels Current Medications Generic Name Dose Route Start Last Admin Trade Name Freq PRN Reason Stop Dose Admin Acetaminophen 1,000 mg 03/01/19 20:55 Tylenol PO Q6H PRN PRN MILD PAIN (1-3/10) Albuterol/Ipratropium 3 ml 03/03/19 19:15 03/06/19 01:00 Duoneb INHALATION Not Given Q6H.RT MARY Alprazolam 0.5 mg 03/01/19 22:00 03/05/19 21:21 Xanax PO 0.5 mg QHS MARY Administration Amitriptyline HCl 75 mg 03/01/19 22:00 03/05/19 21:19 Elavil PO 75 mg QHS MARY Administration Aspirin 81 mg 03/01/19 22:00 03/05/19 21:19 Ecotrin PO 81 mg QHS MARY Administration Atorvastatin Calcium 40 mg 03/01/19 22:00 03/05/19 21:21 Lipitor PO 40 mg QHS MARY Administration Baclofen 20 mg 03/01/19 22:00 03/05/19 21:19 Lioresal PO 20 mg QHS MARY Administration Baclofen 10 mg 03/06/19 06:00 03/06/19 05:01 Lioresal PO 10 mg 0600,1400 MARY Administration Bisacodyl 10 mg 03/01/19 16:59 03/05/19 13:00 Dulcolax RECTAL 10 mg DAILY PRN Administration Constipation Calamine/Phenol 1 applic 03/01/19 22:00 03/06/19 05:00 Calmoseptine Ointment TOPICAL 1 applicatio 599,2199 [facility] Administration Protocol Calcitriol 0.25 mcg 03/01/19 22:00 03/05/19 21:19 Rocaltrol PO 0.25 mcg QHS MARY Administration Fluticasone Propionate 1 spray 03/01/19 18:00 03/06/19 05:01 Flonase Nasal [place] NASAL 1 spray BID MARY Administration Guaifenesin 10 ml 03/02/19 18:33 03/04/19 11:25 Robitussin Dm PO 10 ml Q4H PRN PRN Administration COUGH Heparin Sodium (Beef Lung) 50 units 03/01/19 17:50 IV UD PRN HEPARIN FLUSH Sodium Chloride 1,000 mls @ 100 mls/hr 03/04/19 16:01 03/06/19 04:49 IV 100 mls/hr .Q10H MARY Administration Lactulose 40 gm 03/01/19 22:00 03/05/19 21:23 Chronulac, Cephulac PO 40 gm QHS MARY Administration Loratadine 5 mg 03/01/19 18:00 03/05/19 17:21 Claritin PO 5 mg DAILY@1800 MARY Administration Magnesium Oxide 400 mg 03/01/19 22:00 03/05/19 21:18 Mag-Ox 400 PO 400 mg QHS MARY Administration Melatonin 10 mg 03/01/19 22:00 03/05/19 21:18 Melatonin PO 10 mg QHS MARY Administration Multi-Ingredient Cream 1 applic 03/02/19 06:00 03/06/19 05:00 Eucerin TOPICAL 1 applicatio 599,2199 [facility] Administration Protocol Nystatin 1 applic 03/01/19 22:00 03/06/19 05:01 Mycostatin Powder TOPICAL 1 applicatio 599,2199 [facility] Administration Protocol Polyethylene Glycol 17 gm 03/01/19 16:59 Miralax PO DAILY PRN IF no BM in 2 days Polysaccharide Iron Complex 150 mg 03/02/19 08:00 03/05/19 08:52 Ferrex 150 PO 150 mg DAILYCM MARY Administration Sodium Chloride 10 ml 03/01/19 17:50 03/06/19 04:59 IV 10 ml UD PRN Administration VAD FLUSH Problem List Sepsis (Acute) Infection due to human metapneumovirus (hMPV) (Acute) Vital Signs Temp Pulse Resp BP Pulse Ox 97.3 F L 88 20 H 106/64 91 03/05/19 14:23 03/06/19 06:30 03/06/19 06:30 03/05/19 14:23 03/05/19 14:23 Oxygen Delivery Method Room Air Weight: 72.121 kg Body Mass Index (BMI) 22.8 Finger Stick Blood Glucose 67 Sodium 145 mmol/L (136-145) 03/06/19 05:00 Potassium 4.4 mmol/L (3.5-5.1) 03/06/19 05:00 Chloride 110 mmol/L (98-107) H 03/06/19 05:00 Carbon Dioxide 26.0 mmol/L (21.0-32.0) 03/06/19 05:00 Anion Gap 9 (5-15) 03/06/19 05:00 BUN 30 mg/dL (7-18) H 03/06/19 05:00 Creatinine 1.83 mg/dL (0.55-1.02) H 03/06/19 05:00 Est GFR (MDRD) Af Amer 36 mL/min (>60) L 03/06/19 05:00 Est GFR (MDRD) Non-Af 30 mL/min (>60) L 03/06/19 05:00 BUN/Creatinine Ratio 16.4 RATIO (10-20) 03/06/19 05:00 Glucose 86 mg/dL (74-106) 03/06/19 05:00 Assessment/Plan: 1) Pain APAP for mild pain, baclofen, amitriptyline. Continue to monitor daily pain scores, prn medication use. 2) TIA ASA, atorvastatin. Continue to monitor clinically. 3) Pulm Duoneb aerosols, prn guaifenesin DM, loratadine, fluticasone. Continue to monitor prn medication use, for shortness of breath. 4) HyperPTH Calcitriol. Continue to monitor clinically. 5) Sleep Melatonin at HS. Continue to monitor for insomnia. 6) Nutrition Fe, Mg. Continue to monitor electrolytes. Psychotropic Medications: 7) Anxiety Alprazolam scheduled at HS. Continue to monitor for anxiety. Unnecessary Medications: None Bowel Regimen: 8) PEG, lactulose, prn bisacodyl. Continue to monitor prn medication use, for constipation/diarrhea. Date of Note:: 03/06/19 - Provider Comments Provider responsibility: Provider responsible to enter orders to implement recommendations <Chava Feng Chi - Last Filed: 03/06/19 08:29> Progress Note - Pharmacy Subjective: [] Objective: Allergies ciprofloxacin [From Cipro] Adverse Reaction (Verified 02/26/19 20:55) hypotension interacts w/ zanaflex and baclofen doxycycline Adverse Reaction (Verified 02/26/19 20:55) hypotension interacts w/ zanaflex and baclofen levofloxacin [From Levaquin] Adverse Reaction (Verified 02/26/19 20:55) hypotension interacts w/ zanaflex and baclofen morphine Adverse Reaction (Verified 02/26/19 20:55) hallucinations piperacillin [From Zosyn] Adverse Reaction (Verified 02/26/19 20:55) hypotension interacts w/ zanaflex and baclofen sulfamethoxazole [From Bactrim] Adverse Reaction (Verified 02/26/19 20:55) hypotension interacts w/ zanaflex and baclofen tazobactam [From Zosyn] Adverse Reaction (Verified 02/26/19 20:55) hypotension interacts w/ zanaflex and baclofen trimethoprim [From Bactrim] Adverse Reaction (Verified 02/26/19 20:55) hypotension interacts w/ zanaflex and baclofen vancomycin Adverse Reaction (Verified 02/26/19 20:55) developed toxic levels Current Medications Generic Name Dose Route Start Last Admin Trade Name Freq PRN Reason Stop Dose Admin Acetaminophen 1,000 mg 03/01/19 20:55 Tylenol PO Q6H PRN PRN MILD PAIN (1-3/10) Albuterol/Ipratropium 3 ml 03/03/19 19:15 03/06/19 06:30 Duoneb INHALATION 3 ml Q6H.RT MARY Administration Alprazolam 0.5 mg 03/01/19 22:00 03/05/19 21:21 Xanax PO 0.5 mg QHS MARY Administration Amitriptyline HCl 75 mg 03/01/19 22:00 03/05/19 21:19 Elavil PO 75 mg QHS MARY Administration Aspirin 81 mg 03/01/19 22:00 03/05/19 21:19 Ecotrin PO 81 mg QHS MARY Administration Atorvastatin Calcium 40 mg 03/01/19 22:00 03/05/19 21:21 Lipitor PO 40 mg QHS MARY Administration Baclofen 20 mg 03/01/19 22:00 03/05/19 21:19 Lioresal PO 20 mg QHS MARY Administration Baclofen 10 mg 03/06/19 06:00 03/06/19 05:01 Lioresal PO 10 mg 0600,1400 MARY Administration Bisacodyl 10 mg 03/01/19 16:59 03/05/19 13:00 Dulcolax RECTAL 10 mg DAILY PRN Administration Constipation Calamine/Phenol 1 applic 03/01/19 22:00 03/06/19 05:00 Calmoseptine Ointment TOPICAL 1 applicatio 0600,2200 MARY Administration Protocol Calcitriol 0.25 mcg 03/01/19 22:00 03/05/19 21:19 Rocaltrol PO 0.25 mcg QHS MARY Administration Fluticasone Propionate 1 spray 03/01/19 18:00 03/06/19 05:01 Flonase Nasal Sayre NASAL 1 spray BID MARY Administration Guaifenesin 10 ml 03/02/19 18:33 03/04/19 11:25 Robitussin Dm PO 10 ml Q4H PRN PRN Administration COUGH Heparin Sodium (Beef Lung) 50 units 03/01/19 17:50 IV UD PRN HEPARIN FLUSH Sodium Chloride 1,000 mls @ 100 mls/hr 03/04/19 16:01 03/06/19 04:49 IV 100 mls/hr .Q10H MARY Administration Lactulose 40 gm 03/01/19 22:00 03/05/19 21:23 Chronulac, Cephulac PO 40 gm QHS MARY Administration Loratadine 5 mg 03/01/19 18:00 03/05/19 17:21 Claritin PO 5 mg DAILY@1800 MARY Administration Magnesium Oxide 400 mg 03/01/19 22:00 03/05/19 21:18 Mag-Ox 400 PO 400 mg QHS MARY Administration Melatonin 10 mg 03/01/19 22:00 03/05/19 21:18 Melatonin PO 10 mg QHS MARY Administration Multi-Ingredient Cream 1 applic 03/02/19 06:00 03/06/19 05:00 Eucerin TOPICAL 1 applicatio 06,0 [facility] Administration Protocol Nystatin 1 applic 03/01/19 22:00 03/06/19 05:01 Mycostatin Powder TOPICAL 1 applicatio 599,0 [facility] Administration Protocol Polyethylene Glycol 17 gm 03/01/19 16:59 Miralax PO DAILY PRN IF no BM in 2 days Polysaccharide Iron Complex 150 mg 03/02/19 08:00 03/05/19 08:52 Ferrex 150 PO 150 mg DAILYCM MARY Administration Sodium Chloride 10 ml 03/01/19 17:50 03/06/19 04:59 IV 10 ml UD PRN Administration VAD FLUSH Problem List Sepsis (Acute) Infection due to human metapneumovirus (hMPV) (Acute) Vital Signs Temp Pulse Resp BP Pulse Ox 97.3 F L 88 20 H 106/64 91 03/05/19 14:23 03/06/19 06:30 03/06/19 06:30 03/05/19 14:23 03/05/19 14:23 Oxygen Delivery Method Room Air Weight: 72.121 kg Body Mass Index (BMI) 22.8 Finger Stick Blood Glucose 67 Sodium 145 mmol/L (136-145) 03/06/19 05:00 Potassium 4.4 mmol/L (3.5-5.1) 03/06/19 05:00 Chloride 110 mmol/L (98-107) H 03/06/19 05:00 Carbon Dioxide 26.0 mmol/L (21.0-32.0) 03/06/19 05:00 Anion Gap 9 (5-15) 03/06/19 05:00 BUN 30 mg/dL (7-18) H 03/06/19 05:00 Creatinine 1.83 mg/dL (0.55-1.02) H 03/06/19 05:00 Est GFR (MDRD) Af Amer 36 mL/min (>60) L 03/06/19 05:00 Est GFR (MDRD) Non-Af 30 mL/min (>60) L 03/06/19 05:00 BUN/Creatinine Ratio 16.4 RATIO (10-20) 03/06/19 05:00 Glucose 86 mg/dL (74-106) 03/06/19 05:00 Assessment/Plan: Psychotropic Medications: Unnecessary Medications: Bowel Regimen: - Provider Comments Provider responsibility: Provider responsible to enter orders to implement recommendations Provider Comments to Recommendations by Pharmacy: Agree
--- NOTE | 2019-03-06 08:13 | PHA.CONS_ITS ---
<ParihsnorisivonneTd D - Last Filed: 03/06/19 08:05> Progress Note - Pharmacy Subjective: TCU Admission Objective: Allergies ciprofloxacin [From Cipro] Adverse Reaction (Verified 02/26/19 20:55) hypotension interacts w/ zanaflex and baclofen doxycycline Adverse Reaction (Verified 02/26/19 20:55) hypotension interacts w/ zanaflex and baclofen levofloxacin [From Levaquin] Adverse Reaction (Verified 02/26/19 20:55) hypotension interacts w/ zanaflex and baclofen morphine Adverse Reaction (Verified 02/26/19 20:55) hallucinations piperacillin [From Zosyn] Adverse Reaction (Verified 02/26/19 20:55) hypotension interacts w/ zanaflex and baclofen sulfamethoxazole [From Bactrim] Adverse Reaction (Verified 02/26/19 20:55) hypotension interacts w/ zanaflex and baclofen tazobactam [From Zosyn] Adverse Reaction (Verified 02/26/19 20:55) hypotension interacts w/ zanaflex and baclofen trimethoprim [From Bactrim] Adverse Reaction (Verified 02/26/19 20:55) hypotension interacts w/ zanaflex and baclofen vancomycin Adverse Reaction (Verified 02/26/19 20:55) developed toxic levels Current Medications Generic Name Dose Route Start Last Admin Trade Name Freq PRN Reason Stop Dose Admin Acetaminophen 1,000 mg 03/01/19 20:55 Tylenol PO Q6H PRN PRN MILD PAIN (1-3/10) Albuterol/Ipratropium 3 ml 03/03/19 19:15 03/06/19 01:00 Duoneb INHALATION Not Given Q6H.RT MARY Alprazolam 0.5 mg 03/01/19 22:00 03/05/19 21:21 Xanax PO 0.5 mg QHS MARY Administration Amitriptyline HCl 75 mg 03/01/19 22:00 03/05/19 21:19 Elavil PO 75 mg QHS MARY Administration Aspirin 81 mg 03/01/19 22:00 03/05/19 21:19 Ecotrin PO 81 mg QHS MARY Administration Atorvastatin Calcium 40 mg 03/01/19 22:00 03/05/19 21:21 Lipitor PO 40 mg QHS MARY Administration Baclofen 20 mg 03/01/19 22:00 03/05/19 21:19 Lioresal PO 20 mg QHS MARY Administration Baclofen 10 mg 03/06/19 06:00 03/06/19 05:01 Lioresal PO 10 mg 0600,1400 MARY Administration Bisacodyl 10 mg 03/01/19 16:59 03/05/19 13:00 Dulcolax RECTAL 10 mg DAILY PRN Administration Constipation Calamine/Phenol 1 applic 03/01/19 22:00 03/06/19 05:00 Calmoseptine Ointment TOPICAL 1 applicatio 599,2199 [facility] Administration Protocol Calcitriol 0.25 mcg 03/01/19 22:00 03/05/19 21:19 Rocaltrol PO 0.25 mcg QHS MARY Administration Fluticasone Propionate 1 spray 03/01/19 18:00 03/06/19 05:01 Flonase Nasal [place] NASAL 1 spray BID MARY Administration Guaifenesin 10 ml 03/02/19 18:33 03/04/19 11:25 Robitussin Dm PO 10 ml Q4H PRN PRN Administration COUGH Heparin Sodium (Beef Lung) 50 units 03/01/19 17:50 IV UD PRN HEPARIN FLUSH Sodium Chloride 1,000 mls @ 100 mls/hr 03/04/19 16:01 03/06/19 04:49 IV 100 mls/hr .Q10H MARY Administration Lactulose 40 gm 03/01/19 22:00 03/05/19 21:23 Chronulac, Cephulac PO 40 gm QHS MARY Administration Loratadine 5 mg 03/01/19 18:00 03/05/19 17:21 Claritin PO 5 mg DAILY@1800 MARY Administration Magnesium Oxide 400 mg 03/01/19 22:00 03/05/19 21:18 Mag-Ox 400 PO 400 mg QHS MARY Administration Melatonin 10 mg 03/01/19 22:00 03/05/19 21:18 Melatonin PO 10 mg QHS MARY Administration Multi-Ingredient Cream 1 applic 03/02/19 06:00 03/06/19 05:00 Eucerin TOPICAL 1 applicatio 599,2199 [facility] Administration Protocol Nystatin 1 applic 03/01/19 22:00 03/06/19 05:01 Mycostatin Powder TOPICAL 1 applicatio 599,2199 [facility] Administration Protocol Polyethylene Glycol 17 gm 03/01/19 16:59 Miralax PO DAILY PRN IF no BM in 2 days Polysaccharide Iron Complex 150 mg 03/02/19 08:00 03/05/19 08:52 Ferrex 150 PO 150 mg DAILYCM MARY Administration Sodium Chloride 10 ml 03/01/19 17:50 03/06/19 04:59 IV 10 ml UD PRN Administration VAD FLUSH Problem List Sepsis (Acute) Infection due to human metapneumovirus (hMPV) (Acute) Vital Signs Temp Pulse Resp BP Pulse Ox 97.3 F L 88 20 H 106/64 91 03/05/19 14:23 03/06/19 06:30 03/06/19 06:30 03/05/19 14:23 03/05/19 14:23 Oxygen Delivery Method Room Air Weight: 72.121 kg Body Mass Index (BMI) 22.8 Finger Stick Blood Glucose 67 Sodium 145 mmol/L (136-145) 03/06/19 05:00 Potassium 4.4 mmol/L (3.5-5.1) 03/06/19 05:00 Chloride 110 mmol/L (98-107) H 03/06/19 05:00 Carbon Dioxide 26.0 mmol/L (21.0-32.0) 03/06/19 05:00 Anion Gap 9 (5-15) 03/06/19 05:00 BUN 30 mg/dL (7-18) H 03/06/19 05:00 Creatinine 1.83 mg/dL (0.55-1.02) H 03/06/19 05:00 Est GFR (MDRD) Af Amer 36 mL/min (>60) L 03/06/19 05:00 Est GFR (MDRD) Non-Af 30 mL/min (>60) L 03/06/19 05:00 BUN/Creatinine Ratio 16.4 RATIO (10-20) 03/06/19 05:00 Glucose 86 mg/dL (74-106) 03/06/19 05:00 Assessment/Plan: 1) Pain APAP for mild pain, baclofen, amitriptyline. Continue to monitor daily pain scores, prn medication use. 2) TIA ASA, atorvastatin. Continue to monitor clinically. 3) Pulm Duoneb aerosols, prn guaifenesin DM, loratadine, fluticasone. Continue to monitor prn medication use, for shortness of breath. 4) HyperPTH Calcitriol. Continue to monitor clinically. 5) Sleep Melatonin at HS. Continue to monitor for insomnia. 6) Nutrition Fe, Mg. Continue to monitor electrolytes. Psychotropic Medications: 7) Anxiety Alprazolam scheduled at HS. Continue to monitor for anxiety. Unnecessary Medications: None Bowel Regimen: 8) PEG, lactulose, prn bisacodyl. Continue to monitor prn medication use, for constipation/diarrhea. Date of Note:: 03/06/19 - Provider Comments Provider responsibility: Provider responsible to enter orders to implement recommendations <Chava Feng Chi - Last Filed: 03/06/19 08:29> Progress Note - Pharmacy Subjective: [] Objective: Allergies ciprofloxacin [From Cipro] Adverse Reaction (Verified 02/26/19 20:55) hypotension interacts w/ zanaflex and baclofen doxycycline Adverse Reaction (Verified 02/26/19 20:55) hypotension interacts w/ zanaflex and baclofen levofloxacin [From Levaquin] Adverse Reaction (Verified 02/26/19 20:55) hypotension interacts w/ zanaflex and baclofen morphine Adverse Reaction (Verified 02/26/19 20:55) hallucinations piperacillin [From Zosyn] Adverse Reaction (Verified 02/26/19 20:55) hypotension interacts w/ zanaflex and baclofen sulfamethoxazole [From Bactrim] Adverse Reaction (Verified 02/26/19 20:55) hypotension interacts w/ zanaflex and baclofen tazobactam [From Zosyn] Adverse Reaction (Verified 02/26/19 20:55) hypotension interacts w/ zanaflex and baclofen trimethoprim [From Bactrim] Adverse Reaction (Verified 02/26/19 20:55) hypotension interacts w/ zanaflex and baclofen vancomycin Adverse Reaction (Verified 02/26/19 20:55) developed toxic levels Current Medications Generic Name Dose Route Start Last Admin Trade Name Freq PRN Reason Stop Dose Admin Acetaminophen 1,000 mg 03/01/19 20:55 Tylenol PO Q6H PRN PRN MILD PAIN (1-3/10) Albuterol/Ipratropium 3 ml 03/03/19 19:15 03/06/19 06:30 Duoneb INHALATION 3 ml Q6H.RT MARY Administration Alprazolam 0.5 mg 03/01/19 22:00 03/05/19 21:21 Xanax PO 0.5 mg QHS MARY Administration Amitriptyline HCl 75 mg 03/01/19 22:00 03/05/19 21:19 Elavil PO 75 mg QHS MARY Administration Aspirin 81 mg 03/01/19 22:00 03/05/19 21:19 Ecotrin PO 81 mg QHS MARY Administration Atorvastatin Calcium 40 mg 03/01/19 22:00 03/05/19 21:21 Lipitor PO 40 mg QHS MARY Administration Baclofen 20 mg 03/01/19 22:00 03/05/19 21:19 Lioresal PO 20 mg QHS MARY Administration Baclofen 10 mg 03/06/19 06:00 03/06/19 05:01 Lioresal PO 10 mg 0600,1400 MARY Administration Bisacodyl 10 mg 03/01/19 16:59 03/05/19 13:00 Dulcolax RECTAL 10 mg DAILY PRN Administration Constipation Calamine/Phenol 1 applic 03/01/19 22:00 03/06/19 05:00 Calmoseptine Ointment TOPICAL 1 applicatio 0600,2200 MARY Administration Protocol Calcitriol 0.25 mcg 03/01/19 22:00 03/05/19 21:19 Rocaltrol PO 0.25 mcg QHS MARY Administration Fluticasone Propionate 1 spray 03/01/19 18:00 03/06/19 05:01 Flonase Nasal [place] NASAL 1 spray BID MARY Administration Guaifenesin 10 ml 03/02/19 18:33 03/04/19 11:25 Robitussin Dm PO 10 ml Q4H PRN PRN Administration COUGH Heparin Sodium (Beef Lung) 50 units 03/01/19 17:50 IV UD PRN HEPARIN FLUSH Sodium Chloride 1,000 mls @ 100 mls/hr 03/04/19 16:01 03/06/19 04:49 IV 100 mls/hr .Q10H MARY Administration Lactulose 40 gm 03/01/19 22:00 03/05/19 21:23 Chronulac, Cephulac PO 40 gm QHS MARY Administration Loratadine 5 mg 03/01/19 18:00 03/05/19 17:21 Claritin PO 5 mg DAILY@1800 MARY Administration Magnesium Oxide 400 mg 03/01/19 22:00 03/05/19 21:18 Mag-Ox 400 PO 400 mg QHS MARY Administration Melatonin 10 mg 03/01/19 22:00 03/05/19 21:18 Melatonin PO 10 mg QHS MARY Administration Multi-Ingredient Cream 1 applic 03/02/19 06:00 03/06/19 05:00 Eucerin TOPICAL 1 applicatio 06,0 [facility] Administration Protocol Nystatin 1 applic 03/01/19 22:00 03/06/19 05:01 Mycostatin Powder TOPICAL 1 applicatio 599,0 [facility] Administration Protocol Polyethylene Glycol 17 gm 03/01/19 16:59 Miralax PO DAILY PRN IF no BM in 2 days Polysaccharide Iron Complex 150 mg 03/02/19 08:00 03/05/19 08:52 Ferrex 150 PO 150 mg DAILYCM MARY Administration Sodium Chloride 10 ml 03/01/19 17:50 03/06/19 04:59 IV 10 ml UD PRN Administration VAD FLUSH Problem List Sepsis (Acute) Infection due to human metapneumovirus (hMPV) (Acute) Vital Signs Temp Pulse Resp BP Pulse Ox 97.3 F L 88 20 H 106/64 91 03/05/19 14:23 03/06/19 06:30 03/06/19 06:30 03/05/19 14:23 03/05/19 14:23 Oxygen Delivery Method Room Air Weight: 72.121 kg Body Mass Index (BMI) 22.8 Finger Stick Blood Glucose 67 Sodium 145 mmol/L (136-145) 03/06/19 05:00 Potassium 4.4 mmol/L (3.5-5.1) 03/06/19 05:00 Chloride 110 mmol/L (98-107) H 03/06/19 05:00 Carbon Dioxide 26.0 mmol/L (21.0-32.0) 03/06/19 05:00 Anion Gap 9 (5-15) 03/06/19 05:00 BUN 30 mg/dL (7-18) H 03/06/19 05:00 Creatinine 1.83 mg/dL (0.55-1.02) H 03/06/19 05:00 Est GFR (MDRD) Af Amer 36 mL/min (>60) L 03/06/19 05:00 Est GFR (MDRD) Non-Af 30 mL/min (>60) L 03/06/19 05:00 BUN/Creatinine Ratio 16.4 RATIO (10-20) 03/06/19 05:00 Glucose 86 mg/dL (74-106) 03/06/19 05:00 Assessment/Plan: Psychotropic Medications: Unnecessary Medications: Bowel Regimen: - Provider Comments Provider responsibility: Provider responsible to enter orders to implement recommendations Provider Comments to Recommendations by Pharmacy: Agree
[2019-03-06] MEDS: Iron Polysaccharide Complex 150 MG CAPSULE PO (10:01)
[2019-03-06 13:02] VITALS: PULSE 85; RESP 20
[2019-03-06 15:23] VITALS: BP 129/70; PULSE 90; RESP 20; TEMP 35.8; O2SAT 95
[2019-03-06] MEDS: Loratadine 10 MG Tablet 5 MG PO (17:03)
[2019-03-06 20:00] VITALS: PULSE 88; RESP 20
[2019-03-06] MEDS: Lactulose 20 GM/30 ML UDC 40 GM PO (21:26)
[2019-03-06] MEDS: Amitriptyline 25 MG Tablet 75 MG PO (21:27)
[2019-03-06] MEDS: MELATONIN 10 MG TABLET PO (21:27)
[2019-03-06] MEDS: Baclofen 10 MG Tablet 20 MG PO (21:27)
[2019-03-06] MEDS: Magnesium Oxide 400 MG Tablet PO (21:27)
[2019-03-06] MEDS: Atorvastatin Calcium 40 MG Tablet PO (21:27)
[2019-03-06] MEDS: Aspirin E.C. 81 MG Tablet PO (21:27)
[2019-03-06] MEDS: Calcitriol 0.25 MCG Capsule PO (21:27)
[2019-03-06] MEDS: ALPRAZolam 0.5 MG Tablet PO (21:27)
--- NOTE | 2019-03-07 01:55 | NURSING ---
All care provided in room d/t pt remains in precautions.
[2019-03-07] MEDS: 0.9% Normal Saline 1,000 ML 100 ML IV ×2 (03:32→13:36)
[2019-03-07] MEDS: Baclofen 10 MG Tablet PO ×2 (04:05→13:36)
[2019-03-07] MEDS: Menthol/Lanolin/Calamine/Znox 113 GM Tube 1 APPLIC TOPICAL ×2 (04:05→21:32)
[2019-03-07] MEDS: Nystatin Powder 15gm Bottle 1 APPLIC TOPICAL ×2 (04:08→21:32)
[2019-03-07] MEDS: Fluticasone 0.05% 1 SPRAY NASAL.SRY NASAL ×2 (04:08→18:01)
[2019-03-07 06:46] VITALS: PULSE 82; RESP 18; O2SAT 95
[2019-03-07] MEDS: Ipratropium/Albuterol Sulfate 3 ML AMPUL.NEB INHALATION (06:46)
[2019-03-07] MEDS: Iron Polysaccharide Complex 150 MG CAPSULE PO (09:01)
--- NOTE | 2019-03-07 13:59 | MDS.RN ---
Pain interview for mallory 03/08/19 completed.
[2019-03-07 16:00] VITALS: BP 154/93; PULSE 85; RESP 18; TEMP 36.9; O2SAT 98
[2019-03-07] MEDS: Loratadine 10 MG Tablet 5 MG PO (18:01)
--- NOTE | 2019-03-07 21:07 | NURSING ---
Care provided in room d/t pt remaining in precautions.
[2019-03-07] MEDS: Lactulose 20 GM/30 ML UDC 40 GM PO (21:08)
[2019-03-07] MEDS: Atorvastatin Calcium 40 MG Tablet PO (21:09)
[2019-03-07] MEDS: Aspirin E.C. 81 MG Tablet PO (21:09)
[2019-03-07] MEDS: Amitriptyline 25 MG Tablet 75 MG PO (21:09)
[2019-03-07] MEDS: Calcitriol 0.25 MCG Capsule PO (21:09)
[2019-03-07] MEDS: Baclofen 10 MG Tablet 20 MG PO (21:09)
[2019-03-07] MEDS: MELATONIN 10 MG TABLET PO (21:09)
[2019-03-07] MEDS: Magnesium Oxide 400 MG Tablet PO (21:09)
[2019-03-07] MEDS: ALPRAZolam 0.5 MG Tablet PO (21:12)
[2019-03-08] MEDS: 0.9% Normal Saline 1,000 ML 100 ML IV ×2 (00:24→16:26)
[2019-03-08] MEDS: Nystatin Powder 15gm Bottle 1 APPLIC TOPICAL ×2 (05:11→21:38)
[2019-03-08] MEDS: Menthol/Lanolin/Calamine/Znox 113 GM Tube 1 APPLIC TOPICAL ×2 (05:12→21:38)
[2019-03-08] MEDS: Baclofen 10 MG Tablet PO ×2 (05:30→13:40)
[2019-03-08] MEDS: Fluticasone 0.05% 1 SPRAY NASAL.SRY NASAL ×2 (05:42→17:47)
[2019-03-08] MEDS: Iron Polysaccharide Complex 150 MG CAPSULE PO (09:03)
--- NOTE | 2019-03-08 09:13 | NURSING ---
all care given in room due to pt in precautions.
--- NOTE | 2019-03-08 12:42 | CASEMGMT ---
Insurance: Continued stay review sent through [employer]. Auth # [id number]
--- NOTE | 2019-03-08 13:26 | CASEMGMT ---
Social Work IDT met with patient and for care plan meeting. Discussed therapy progress - max assist for most ADLs. Improving on P.O. caloric intake. Insurance update on this date - patient and aware insurance only provides 24 hour notice, and continued stay is not guaranteed. and patient would like to private pay for continued nursing and rehab if MMO issues LCD. Discharge planning remains ongoing at this time. Will continue to follow. WALLACE TriplettW
[2019-03-08] MEDS: Bisacodyl 10 MG Suppository RECTAL (14:04)
[2019-03-08 15:21] VITALS: BP 143/100; PULSE 85; RESP 20; TEMP 36.3; O2SAT 95
--- NOTE | 2019-03-08 15:32 | CASEMGMT ---
BIMS and PHQ9 interviews completed for MDS assessment on this date. LUCILLE Calloway
--- NOTE | 2019-03-08 16:26 | NURSING ---
suprapubic catheter changed per sterile technique, patient tolerated well. Manual BP recheck 150/90.
[2019-03-08] MEDS: Loratadine 10 MG Tablet 5 MG PO (17:45)
[2019-03-08] MEDS: ALPRAZolam 0.5 MG Tablet PO (21:23)
[2019-03-08] MEDS: Baclofen 10 MG Tablet 20 MG PO (21:23)
[2019-03-08] MEDS: Amitriptyline 25 MG Tablet 75 MG PO (21:23)
[2019-03-08] MEDS: Lactulose 20 GM/30 ML UDC 40 GM PO (21:23)
[2019-03-08] MEDS: Magnesium Oxide 400 MG Tablet PO (21:23)
[2019-03-08] MEDS: MELATONIN 10 MG TABLET PO (21:23)
[2019-03-08] MEDS: Calcitriol 0.25 MCG Capsule PO (21:23)
[2019-03-08] MEDS: Atorvastatin Calcium 40 MG Tablet PO (21:23)
[2019-03-08] MEDS: Aspirin E.C. 81 MG Tablet PO (21:24)
[2019-03-09] MEDS: 0.9% NaCl VAD Flush 10 ML IV (04:43)
[2019-03-09] MEDS: Baclofen 10 MG Tablet PO ×2 (04:44→15:44)
[2019-03-09] MEDS: Fluticasone 0.05% 1 SPRAY NASAL.SRY NASAL ×2 (04:55→15:52)
[2019-03-09] MEDS: Nystatin Powder 15gm Bottle 1 APPLIC TOPICAL ×2 (04:55→21:08)
[2019-03-09] MEDS: Menthol/Lanolin/Calamine/Znox 113 GM Tube 1 APPLIC TOPICAL ×2 (04:56→21:08)
[2019-03-09 05:03] LABS: Absolute Neutrophil Count 6.7 X10^3/uL (2.0-7.7); Basophil# 0.05 X10^3/uL; Basophil% 0.5 % (0-1); Hematocrit 31.4 % (37-47); Hemoglobin 9.9 g/dl (12.0-15.0); Lymphocyte % 20.9 % (19-41); Mean Corp Hgb Conc 31.5 g/gl (32-36); Mean Corpuscular Hgb 29.2 pg (27.0-32.0); Mean Corpuscular Volume 92.6 fL (81-99); Mean Platelet Vol. 9.2 fl (6.2-12.0); Monocyte# 0.83 X10^3/uL; Monocyte% 8.2 % (0-10); Neutrophil # 6.67 X10^3/uL (2.7-7.7); Neutrophil % 66.2 % (47-70); Platelet Count 294 K/mm3 (150-450); RBC Distribution Width CV 15.5 % (11.6-14.6); RBC Distribution Width SD 50.4 fl (35.1-43.9); Red Blood Count 3.39 M/mm3 (4.2-5.4); White Blood Count 10.1 K/mm3 (4.4-11.0)
[2019-03-09 05:09] LABS: POSITIVE COUNT NO; POSITIVE DIFFERENTIAL NO; POSITIVE MORPHOLOGY NO
[2019-03-09 05:16] LABS: Anion Gap 6 (5-15); BUN 23 mg/dL (7-18); BUN/Creat Ratio 13.9 RATIO (10-20); Calcium,Total 8.7 mg/dL (8.5-10.1); Chloride 112 mmol/L (98-107); Creatinine, Serum 1.65 mg/dL (0.55-1.02); EST Glomerular Filtration Rate 33 mL/min (>60); Est Glom Filt Rate - Afr Amer 40 mL/min (>60); Estimated Creatinine Clearance 37.25 ml/min; Glucose 89 mg/dL (74-106); Potassium 3.9 mmol/L (3.5-5.1); Sodium Level 145 mmol/L (136-145)
[2019-03-09] MEDS: Iron Polysaccharide Complex 150 MG CAPSULE PO (08:49)
[2019-03-09] MEDS: Loratadine 10 MG Tablet 5 MG PO (15:44)
[2019-03-09 16:00] VITALS: BP 158/98; PULSE 62; RESP 16; TEMP 36.9; O2SAT 96
--- NOTE | 2019-03-09 16:05 | CASEMGMT ---
Insurance: Continued stay approved with next update due 03/14/19. Pt and notified. LUCILLE Calloway
--- NOTE | 2019-03-09 18:39 | NURSING ---
new order for UA C+S for drainage around suprapubic catheter site along with increased weakness
[2019-03-09] MEDS: MELATONIN 10 MG TABLET PO (21:07)
[2019-03-09] MEDS: Baclofen 10 MG Tablet 20 MG PO (21:07)
[2019-03-09] MEDS: Lactulose 20 GM/30 ML UDC 40 GM PO (21:07)
[2019-03-09] MEDS: ALPRAZolam 0.5 MG Tablet PO (21:07)
[2019-03-09] MEDS: Magnesium Oxide 400 MG Tablet PO (21:07)
[2019-03-09] MEDS: Aspirin E.C. 81 MG Tablet PO (21:07)
[2019-03-09] MEDS: Atorvastatin Calcium 40 MG Tablet PO (21:07)
[2019-03-09] MEDS: Amitriptyline 25 MG Tablet 75 MG PO (21:07)
[2019-03-09] MEDS: Calcitriol 0.25 MCG Capsule PO (21:07)
[2019-03-09 22:13] LABS: Mucous, Urine 0 SEEN /hpf (<or=2+); Squamous Epithelial Cells - UA 0 SEEN /hpf (5-10)
[2019-03-09 22:19] LABS: Color, Urine Yellow (Yellow); Glucose, Dipstick Normal (Normal); Ketone-Dipstick Negative (Negative); Leukocyte Esterase-Dipstick 500 /ul (Negative); Nitrite-Dipstick Positive (Negative); Occult Blood-Urine 50 /ul (Negative); Protein-Dipstick 15 mg/dl (Negative); Urine Bilirubin Dipstick Negative (Negative); Urine Clarity Sl. Cloudy (Clear); Urine Urobilinogen Normal (Normal)
[2019-03-09 22:28] LABS: Bacteria RARE /hpf (None Seen); Red Blood Cells-Urine 0-5 SEEN /hpf (0-5); White Blood Cells >100 SEEN /hpf (0-5)
[2019-03-10] MEDS: Nystatin Powder 15gm Bottle 1 APPLIC TOPICAL ×2 (06:20→21:18)
[2019-03-10] MEDS: Baclofen 10 MG Tablet PO ×2 (06:21→13:14)
[2019-03-10] MEDS: Menthol/Lanolin/Calamine/Znox 113 GM Tube 1 APPLIC TOPICAL ×2 (06:21→21:17)
[2019-03-10] MEDS: Bisacodyl 10 MG Suppository RECTAL (06:21)
[2019-03-10] MEDS: Fluticasone 0.05% 1 SPRAY NASAL.SRY NASAL ×2 (06:22→16:55)
[2019-03-10] MEDS: 0.9% NaCl VAD Flush 10 ML IV (06:22)
[2019-03-10] MEDS: Iron Polysaccharide Complex 150 MG CAPSULE PO (08:16)
[2019-03-10 15:30] VITALS: BP 123/77; PULSE 73; RESP 20; TEMP 37; O2SAT 94
[2019-03-10] MEDS: Loratadine 10 MG Tablet 5 MG PO (16:56)
[2019-03-10] MEDS: ALPRAZolam 0.5 MG Tablet PO (21:03)
[2019-03-10] MEDS: Lactulose 20 GM/30 ML UDC 40 GM PO (21:04)
[2019-03-10] MEDS: Magnesium Oxide 400 MG Tablet PO (21:05)
[2019-03-10] MEDS: Aspirin E.C. 81 MG Tablet PO (21:05)
[2019-03-10] MEDS: MELATONIN 10 MG TABLET PO (21:05)
[2019-03-10] MEDS: Baclofen 10 MG Tablet 20 MG PO (21:05)
[2019-03-10] MEDS: Amitriptyline 25 MG Tablet 75 MG PO (21:06)
[2019-03-10] MEDS: Calcitriol 0.25 MCG Capsule PO (21:06)
[2019-03-10] MEDS: Atorvastatin Calcium 40 MG Tablet PO (21:06)
[2019-03-11] MEDS: Baclofen 10 MG Tablet PO ×2 (05:28→13:09)
[2019-03-11] MEDS: Nystatin Powder 15gm Bottle 1 APPLIC TOPICAL ×2 (05:32→22:08)
[2019-03-11] MEDS: Menthol/Lanolin/Calamine/Znox 113 GM Tube 1 APPLIC TOPICAL ×2 (05:32→19:52)
[2019-03-11] MEDS: Fluticasone 0.05% 1 SPRAY NASAL.SRY NASAL ×2 (05:32→17:06)
[2019-03-11] MEDS: Iron Polysaccharide Complex 150 MG CAPSULE PO (08:43)
[2019-03-11 10:00] VITALS: O2SAT 97
[2019-03-11 15:08] VITALS: BP 105/65; PULSE 90; RESP 20; TEMP 36.5; O2SAT 94
[2019-03-11] MEDS: Loratadine 10 MG Tablet 5 MG PO (17:06)
[2019-03-11] MEDS: Aspirin E.C. 81 MG Tablet PO (19:49)
[2019-03-11] MEDS: Baclofen 10 MG Tablet 20 MG PO (19:49)
[2019-03-11] MEDS: Lactulose 20 GM/30 ML UDC 40 GM PO (19:49)
[2019-03-11] MEDS: Amitriptyline 25 MG Tablet 75 MG PO (19:50)
[2019-03-11] MEDS: Atorvastatin Calcium 40 MG Tablet PO (19:51)
[2019-03-11] MEDS: MELATONIN 10 MG TABLET PO (19:51)
[2019-03-11] MEDS: Calcitriol 0.25 MCG Capsule PO (19:51)
[2019-03-11] MEDS: Magnesium Oxide 400 MG Tablet PO (19:51)
[2019-03-11] MEDS: ALPRAZolam 0.5 MG Tablet PO (19:55)
[2019-03-12] MEDS: Menthol/Lanolin/Calamine/Znox 113 GM Tube 1 APPLIC TOPICAL ×2 (05:57→20:52)
[2019-03-12] MEDS: Nystatin Powder 15gm Bottle 1 APPLIC TOPICAL ×2 (06:02→20:52)
[2019-03-12] MEDS: Baclofen 10 MG Tablet PO ×2 (08:24→14:37)
[2019-03-12] MEDS: Iron Polysaccharide Complex 150 MG CAPSULE PO (08:24)
[2019-03-12] MEDS: Fluticasone 0.05% 1 SPRAY NASAL.SRY NASAL ×2 (08:24→17:21)
--- NOTE | 2019-03-12 08:31 | NURSING ---
Pt hard to awaken at 6am. Ok to give scheduled 6am Baclofen and Flonase at this time per Mayela SU.
[2019-03-12 15:01] VITALS: BP 123/78; PULSE 83; RESP 16; TEMP 36.2; O2SAT 96
[2019-03-12] MEDS: Loratadine 10 MG Tablet 5 MG PO (17:20)
[2019-03-12] MEDS: Magnesium Oxide 400 MG Tablet PO (20:48)
[2019-03-12] MEDS: Calcitriol 0.25 MCG Capsule PO (20:48)
[2019-03-12] MEDS: Lactulose 20 GM/30 ML UDC 40 GM PO (20:49)
[2019-03-12] MEDS: Baclofen 10 MG Tablet 20 MG PO (20:50)
[2019-03-12] MEDS: MELATONIN 10 MG TABLET PO (20:50)
[2019-03-12] MEDS: Atorvastatin Calcium 40 MG Tablet PO (20:50)
[2019-03-12] MEDS: Aspirin E.C. 81 MG Tablet PO (20:51)
[2019-03-12] MEDS: Amitriptyline 25 MG Tablet 75 MG PO (20:51)
[2019-03-12] MEDS: ALPRAZolam 0.5 MG Tablet PO (20:51)
[2019-03-13] MEDS: Nystatin Powder 15gm Bottle 1 APPLIC TOPICAL ×2 (05:59→21:04)
[2019-03-13] MEDS: Menthol/Lanolin/Calamine/Znox 113 GM Tube 1 APPLIC TOPICAL ×2 (05:59→21:03)
--- NOTE | 2019-03-13 09:02 | MDS.RN ---
Information for the mds was obtained from review of the clinical record, interview of resident, staff, and direct observation of resident's care.
[2019-03-13] MEDS: Iron Polysaccharide Complex 150 MG CAPSULE PO (09:11)
[2019-03-13] MEDS: Fluticasone 0.05% 1 SPRAY NASAL.SRY NASAL ×2 (09:11→17:31)
[2019-03-13] MEDS: Baclofen 10 MG Tablet PO ×2 (09:11→17:31)
[2019-03-13] MEDS: Acetaminophen 500 MG Tablet 1000 MG PO (12:02)
[2019-03-13 15:15] VITALS: BP 102/62; PULSE 74; RESP 16; TEMP 36.3; O2SAT 89
[2019-03-13] MEDS: Loratadine 10 MG Tablet 5 MG PO (17:31)
[2019-03-13] MEDS: Lactulose 20 GM/30 ML UDC 40 GM PO (20:53)
[2019-03-13] MEDS: ALPRAZolam 0.5 MG Tablet PO (20:53)
[2019-03-13] MEDS: Baclofen 10 MG Tablet 20 MG PO (20:55)
[2019-03-13] MEDS: Aspirin E.C. 81 MG Tablet PO (20:55)
[2019-03-13] MEDS: Amitriptyline 25 MG Tablet 75 MG PO (20:55)
[2019-03-13] MEDS: MELATONIN 10 MG TABLET PO (20:56)
[2019-03-13] MEDS: Calcitriol 0.25 MCG Capsule PO (20:56)
[2019-03-13] MEDS: Atorvastatin Calcium 40 MG Tablet PO (20:56)
[2019-03-13] MEDS: Magnesium Oxide 400 MG Tablet PO (20:56)
[2019-03-14] MEDS: Menthol/Lanolin/Calamine/Znox 113 GM Tube 1 APPLIC TOPICAL ×2 (06:04→20:21)
[2019-03-14] MEDS: Nystatin Powder 15gm Bottle 1 APPLIC TOPICAL ×2 (06:05→20:22)
[2019-03-14] MEDS: Iron Polysaccharide Complex 150 MG CAPSULE PO (08:55)
[2019-03-14] MEDS: Baclofen 10 MG Tablet PO ×2 (08:55→14:31)
[2019-03-14] MEDS: Fluticasone 0.05% 1 SPRAY NASAL.SRY NASAL ×2 (08:55→17:26)
--- NOTE | 2019-03-14 11:06 | CASEMGMT ---
Insurance: Continued stay review sent through [employer] this day. Auth # [id number]
[2019-03-14] MEDS: 0.9% Normal Saline 1,000 ML 100 ML IV ×2 (11:15→20:43)
--- NOTE | 2019-03-14 11:24 | NURSING ---
concerned about pt being dehydrated, states pt has been alittle less alert, more drowsy. requesting renal panel and IV fluids. Dr Feng updated, new order received. Accessed port w/out difficulty, good blood return. IVF infusing per order. at bedside.
[2019-03-14 11:46] LABS: Albumin, Serum 3.1 g/dL (3.2-5.0); BUN 35 mg/dL (7-18); BUN/Creat Ratio 17.9 RATIO (10-20); Calcium,Total 10.3 mg/dL (8.5-10.1); Chloride 104 mmol/L (98-107); Creatinine, Serum 1.95 mg/dL (0.55-1.02); EST Glomerular Filtration Rate 27 mL/min (>60); Est Glom Filt Rate - Afr Amer 33 mL/min (>60); Estimated Creatinine Clearance 31.52 ml/min; Glucose 116 mg/dL (74-106); Phosphorus 3.9 mg/dL (2.5-4.9); Potassium 4.1 mmol/L (3.5-5.1); Sodium Level 138 mmol/L (136-145)
[2019-03-14 16:00] VITALS: BP 142/94; PULSE 78; RESP 20; TEMP 36.4; O2SAT 96
[2019-03-14] MEDS: Loratadine 10 MG Tablet 5 MG PO (17:26)
[2019-03-14] MEDS: Lactulose 20 GM/30 ML UDC 40 GM PO (20:20)
[2019-03-14] MEDS: Polyethylene Glycol 3350 17 GM PACKET PO (20:43)
[2019-03-14] MEDS: ALPRAZolam 0.5 MG Tablet PO (20:43)
[2019-03-14] MEDS: Aspirin E.C. 81 MG Tablet PO (20:46)
[2019-03-14] MEDS: Magnesium Oxide 400 MG Tablet PO (20:46)
[2019-03-14] MEDS: Calcitriol 0.25 MCG Capsule PO (20:46)
[2019-03-14] MEDS: Baclofen 10 MG Tablet 20 MG PO (20:46)
[2019-03-14] MEDS: Atorvastatin Calcium 40 MG Tablet PO (20:46)
[2019-03-14] MEDS: MELATONIN 10 MG TABLET PO (20:46)
[2019-03-14] MEDS: Amitriptyline 25 MG Tablet 75 MG PO (20:46)
[2019-03-15] MEDS: Nystatin Powder 15gm Bottle 1 APPLIC TOPICAL ×2 (05:55→20:44)
[2019-03-15] MEDS: Menthol/Lanolin/Calamine/Znox 113 GM Tube 1 APPLIC TOPICAL ×2 (05:56→23:39)
[2019-03-15] MEDS: 0.9% Normal Saline 1,000 ML 100 ML IV ×2 (06:03→18:18)
[2019-03-15] MEDS: Bisacodyl 10 MG Suppository RECTAL (06:45)
[2019-03-15] MEDS: Baclofen 10 MG Tablet PO ×2 (06:47→13:59)
[2019-03-15] MEDS: Iron Polysaccharide Complex 150 MG CAPSULE PO (06:47)
[2019-03-15] MEDS: Fluticasone 0.05% 1 SPRAY NASAL.SRY NASAL ×2 (06:59→17:16)
--- NOTE | 2019-03-15 08:28 | NURSING ---
Ching was gotten up early like we usually do, but her was upset because she was gotten up.He was upset because we set her up to brush her teeth, which she did yesterday fine by herself. He said he did not want her to brush her teeth before breakfast, but she is on miller water protocol and cannot have any water until she has mouth care. One minute he says to ask her stuff because she has her mind about her, and the next time he says she cannot make decisions by herself because she is not capable. But says he will get us straightened up.
[2019-03-15 16:00] VITALS: BP 147/95; PULSE 81; RESP 20; TEMP 35.9; O2SAT 96
--- NOTE | 2019-03-15 16:40 | CASEMGMT ---
Addendum entered by Yolie Vigil 03/29/19 16:56: [facility] contacted this SW - reconsideration outcome - physician agreed with initial LCD of 03/18 with financial liability beginning 03/19. Addendum entered by Yolie Vigil 03/22/19 14:46: informed SW he filed a reconsideration to [facility]. [facility] requested any recent medical documentation to further review. Faxed information to [facility]. Awaiting outcome. Addendum entered by Yolie Vigil 03/21/19 16:05: Received the documentation request for the patient's appeal from [facility]. Information faxed. Received appeal outcome: denied. Notified patient and . Patient continues to be private pay as of 03/19. Original Note: Social Work Insurance issued NOM[employer] for LCD 03/18/19. Provided NOMNC to patient and and informed them of their appeal rights. Both decided to appeal the decision. stated regardless of outcome, he will private pay for pt to remain in TCU longer. WALLACE Triplett
[2019-03-15] MEDS: Loratadine 10 MG Tablet 5 MG PO (17:16)
[2019-03-15] MEDS: Acetaminophen 500 MG Tablet 1000 MG PO (17:17)
[2019-03-15] MEDS: Lactulose 20 GM/30 ML UDC 40 GM PO (20:39)
[2019-03-15] MEDS: Aspirin E.C. 81 MG Tablet PO (20:40)
[2019-03-15] MEDS: Amitriptyline 25 MG Tablet 75 MG PO (20:41)
[2019-03-15] MEDS: Atorvastatin Calcium 40 MG Tablet PO (20:42)
[2019-03-15] MEDS: Baclofen 10 MG Tablet 20 MG PO (20:42)
[2019-03-15] MEDS: Magnesium Oxide 400 MG Tablet PO (20:43)
[2019-03-15] MEDS: MELATONIN 10 MG TABLET PO (20:43)
[2019-03-15] MEDS: Calcitriol 0.25 MCG Capsule PO (20:43)
[2019-03-15] MEDS: ALPRAZolam 0.5 MG Tablet PO (20:45)
[2019-03-15 21:43] VITALS: PULSE 94; RESP 16
[2019-03-16] MEDS: 0.9% NaCl VAD Flush 10 ML IV ×3 (04:26→04:28)
[2019-03-16] MEDS: 0.9% Normal Saline 1,000 ML 100 ML IV (04:27)
[2019-03-16 05:02] LABS: Anion Gap 5 (5-15); BUN 30 mg/dL (7-18); BUN/Creat Ratio 17.3 RATIO (10-20); Chloride 111 mmol/L (98-107); Creatinine, Serum 1.73 mg/dL (0.55-1.02); EST Glomerular Filtration Rate 32 mL/min (>60); Est Glom Filt Rate - Afr Amer 38 mL/min (>60); Estimated Creatinine Clearance 35.53 ml/min; Glucose 89 mg/dL (74-106); Potassium 3.9 mmol/L (3.5-5.1); Sodium Level 145 mmol/L (136-145)
[2019-03-16 05:17] LABS: Hematocrit 31.1 % (37-47); Hemoglobin 9.6 g/dl (12.0-15.0); Mean Corp Hgb Conc 30.9 g/gl (32-36); Mean Corpuscular Hgb 29.3 pg (27.0-32.0); Mean Corpuscular Volume 94.8 fL (81-99); POSITIVE COUNT NO; POSITIVE DIFFERENTIAL NO; POSITIVE MORPHOLOGY NO; Platelet Count 204 K/mm3 (150-450); RBC Distribution Width CV 15.9 % (11.6-14.6); RBC Distribution Width SD 52.3 fl (35.1-43.9); Red Blood Count 3.28 M/mm3 (4.2-5.4); White Blood Count 7.4 K/mm3 (4.4-11.0)
[2019-03-16 05:18] LABS: Absolute Lymphocyte Count 1.82 X10^3/ul (0.83-4.51); Absolute Neutrophil Count 4.6 X10^3/uL (2.0-7.7); Basophil# 0.03 X10^3/uL; Basophil% 0.4 % (0-1); Eosinophils% 4.1 % (0-5); Lymphocyte # 1.82 X10^3/ul (4.0); Lymphocyte % 24.7 % (19-41); Monocyte# 0.59 X10^3/uL; Neutrophil # 4.63 X10^3/uL (2.7-7.7); Neutrophil % 62.7 % (47-70)
--- NOTE | 2019-03-16 08:31 | RAD_ITS ---
STUDY: X-RAY CHEST REASON FOR EXAM: Female, 64 years old. Fever, nausea and vomiting. TECHNIQUE: AP and lateral views of the chest. COMPARISON: Comparison is made with prior study dated March 03, 2019. FINDINGS: A left sided jayesh catheter is seen with the tip in the right atrium. Stable elevation of the right hemidiaphragm. Increased markings at the left lung base suggestive of atelectasis superimposed on scarring. There is no demonstrated pleural abnormality. Normal size heart. Normal mediastinum and ramy. Normal visualized pulmonary arteries. There is atherosclerotic tortuosity of the aortic arch and descending thoracic aorta. There is demineralization of the osseous structures. Normal visualized ribs, clavicles, and shoulders. There is no demonstrated abnormality of the visualized soft tissue structures of the upper abdomen. RAD/Chest PA and Lateral IMPRESSION: Stable examination. Increased markings at the left lung base suggestive of atelectasis superimposed on scarring. Electronically Signed: Luís Hines, at 10:12 EDT , Service support ,
--- NOTE | 2019-03-16 08:32 | NURSING ---
Addendum entered by Mayela Rivero 03/16/19 11:23: Dr. Feng reviewed xray's, new order for lactulose enema x1. Patient and aware. Original Note: Patient's has concerns about patient's change in mental status in the past few days. Dr. Feng updated. New order for CXR and KUB.
[2019-03-16] MEDS: Nystatin Powder 15gm Bottle 1 APPLIC TOPICAL ×2 (08:38→21:55)
[2019-03-16] MEDS: Iron Polysaccharide Complex 150 MG CAPSULE PO (08:41)
[2019-03-16] MEDS: Baclofen 10 MG Tablet PO (08:41)
[2019-03-16 08:55] VITALS: BP 133/84; PULSE 78; RESP 18; TEMP 36.7; O2SAT 95
--- NOTE | 2019-03-16 09:05 | RAD_ITS ---
STUDY: X-RAY - ABDOMEN/PELVIS REASON FOR EXAM: Female, 64 years old. Fever nausea and vomiting. TECHNIQUE: AP supine and upright views of the abdomen and pelvis. COMPARISON: Comparison is made with prior study dated February 16, 2009. FINDINGS: Elevation of the right hemidiaphragm. There is an abundance of fecal material throughout the colon. There is no demonstrated free abdominal air. The visualized liver, spleen and kidneys are grossly normal in size and morphology. Normal soft tissue structures. There are diffuse degenerative changes of the visualized lumbar spine. RAD/Abd Inc Decub and/or Erect IMPRESSION: Large amount of fecal material is seen in the colon. Electronically Signed: Luís Hines, at 10:13 EDT , Service support ,
[2019-03-16] MEDS: Menthol/Lanolin/Calamine/Znox 113 GM Tube 1 APPLIC TOPICAL ×2 (09:37→21:55)
[2019-03-16] MEDS: Fluticasone 0.05% 1 SPRAY NASAL.SRY NASAL ×2 (09:37→22:03)
[2019-03-16 14:08] VITALS: BP 151/90; PULSE 80; RESP 16; TEMP 36; O2SAT 97
[2019-03-16] MEDS: Lactulose 20 GM/30 ML UDC 200 GM RECTAL (15:01)
[2019-03-16] MEDS: Loratadine 10 MG Tablet 5 MG PO (17:16)
--- NOTE | 2019-03-16 17:18 | NURSING ---
New order to consult Dr. Wright r/t MDRO in urine.
--- NOTE | 2019-03-16 19:52 | PCM.TCUNOT ---
Subjective: Resident seen in room, lying in bed. Her Siva has noticed a change in mental status. Ching is confused on alert and oriented x 2. Siva also feels her transfers have gotten worse over the past few days. A urine culture was sent 7 days ago, but due to suprapubic catheter, her urine culture is always positive due to colonization. Siva states that in the past when Ching was confused, it was usually acute cystitis. Vitals/I&O's: Vital Signs Temp Pulse Resp BP Pulse Ox 96.8 F L 80 16 151/90 H 97 03/16/19 14:08 03/16/19 14:08 03/16/19 14:08 03/16/19 14:08 03/16/19 14:08 Oxygen Delivery Method Room Air Weight: 71.668 kg Body Mass Index (BMI) 22.8 Finger Stick Blood Glucose 67 Intake and Output for Last 24 Hours 03/14/19 03/15/19 03/16/19 23:59 23:59 23:59 Intake Total 960 / 960 2598 / 2598 1338 / 1338 Output Total 1925 / 1925 1550 / 1550 2800 / 2800 Balance -965 / -965 1048 / 1048 -1462 / -1462 Microbiology Past 72 Hours 03/09/19 21:30 Urine Catheter - Catheter Urine Culture - Final Meth. resistant Staph. aureus Brevundimonas diminuta/vesicul Morganella morganii sp sibonii Enterococcus faecalis Laboratory Results 03/16/19 04:30: WBC 7.4, RBC 3.28 L, Hgb 9.6 L, Hct 31.1 L, MCV 94.8, MCH 29.3, MCHC 30.9 L, RDW 15.9 H, RDW Differential 52.3 H, Plt Count 204, MPV 10.0, Immature Gran % (Auto) 0.120, Neut % (Auto) 62.7, Lymph % (Auto) 24.7, Pecos % (Auto) 8.0, Eos % (Auto) 4.1, Baso % (Auto) 0.4, Absolute Neuts (auto) 4.6, Absolute Lymphs (auto) 1.82, Total Counted Not Reportable 03/16/19 04:30: Sodium 145, Potassium 3.9, Chloride 111 H, Carbon Dioxide 29.0, Anion Gap 5, BUN 30 H, Creatinine 1.73 H, Estim Creat Clear Calc 35.53, Est GFR (MDRD) Af Amer 38 L, Est GFR (MDRD) Non-Af 32 L, BUN/Creatinine Ratio 17.3, Glucose 89, Calcium 9.0 Past Medical History Past Medical History (Chronic Problems): Chronic Problems Neurogenic bladder (Chronic) MRSA colonization (Chronic) Bilateral hydronephrosis (Chronic) Iron deficiency anemia (Chronic) Hypomagnesemia (Chronic) Dehydration (Chronic) Constipation (Chronic) Hydronephrosis (Chronic) Bilateral. Complicated urinary tract infection (Chronic) Chronic suprapubic catheter. Vitamin D deficiency (Chronic) Muscle spasm (Chronic) OAB (overactive bladder) (Chronic) Allergic rhinitis (Chronic) Insomnia (Chronic) Hyperlipidemia (Chronic) CKD (chronic kidney disease) stage 4, GFR 15-29 ml/min (Chronic) Transient ischemic attack (Chronic) Multiple sclerosis (Chronic) Right hemiparesis (Chronic) Migraine headache (Chronic) Allergies ciprofloxacin [From Cipro] Adverse Reaction (Verified 02/26/19 20:55) hypotension interacts w/ zanaflex and baclofen doxycycline Adverse Reaction (Verified 02/26/19 20:55) hypotension interacts w/ zanaflex and baclofen levofloxacin [From Levaquin] Adverse Reaction (Verified 02/26/19 20:55) hypotension interacts w/ zanaflex and baclofen morphine Adverse Reaction (Verified 02/26/19 20:55) hallucinations piperacillin [From Zosyn] Adverse Reaction (Verified 02/26/19 20:55) hypotension interacts w/ zanaflex and baclofen sulfamethoxazole [From Bactrim] Adverse Reaction (Verified 02/26/19 20:55) hypotension interacts w/ zanaflex and baclofen tazobactam [From Zosyn] Adverse Reaction (Verified 02/26/19 20:55) hypotension interacts w/ zanaflex and baclofen trimethoprim [From Bactrim] Adverse Reaction (Verified 02/26/19 20:55) hypotension interacts w/ zanaflex and baclofen vancomycin Adverse Reaction (Verified 02/26/19 20:55) developed toxic levels Home Medications: Ambulatory Orders Medication Instructions Recorded Aspirin E.C. [Ecotrin] 81 mg PO QHS 12/04/16 Atorvastatin Calcium [Lipitor] 40 mg PO QHS 09/05/17 Iron Polysaccharide Complex 150 mg PO DAILYCM 09/05/17 [Ferrex 150] Magnesium Oxide [Mag-Ox 400] 400 mg PO QHS 09/05/17 Amitriptyline HCl [Elavil] 75 mg PO QHS 09/19/17 Lactulose [Chronulac] 40 gm PO QHS 09/19/17 Baclofen 20 mg PO QHS 07/01/18 Baclofen [Lioresal] 10 mg PO BID 07/01/18 Bisacodyl [Dulcolax] 10 mg RECTAL DAILY PRN 07/01/18 Calcitriol [Rocaltrol] 0.25 mcg PO QHS 07/01/18 ALPRAZolam [Xanax] 0.5 mg PO QHS 02/15/19 Acetaminophen [Tylenol] 1,000 mg PO PRN PRN 02/15/19 Melatonin 10 mg PO QHS 02/15/19 Fluticasone 0.05% [Flonase Nasal 1 spray NASAL BID 02/26/19 [place]] Loratadine 5 mg PO DAILY@1800 02/26/19 Mineral Oil/Petrolatum,White 1 applic TOPICAL BID PRN PRN 02/26/19 [Eucerin] Nystatin Powder [Mycostatin Powder] 1 applic TOPICAL BID 02/26/19 Polyethylene Glycol 3350 [Miralax] 17 gm PO DAILY PRN packet 03/01/19 Surgical History: adenoidectomy, tonsillectomy, - - Right shoulder surgery, ORIF right wrist, suprapubic catheter placement. 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 Paternal History Items: - - Denies known paternal medical history including cardiac history. Capacity - Capacity Assessment Tool Can the patient make a choice & communicate that choice?: Yes Can the patient understand benefits, risks and alternatives?: No Can the patient make a logical, rational choice?: No Is the choice the patient makes consistent w/ their values?: Unable to Determine Is there an impending, emergent risk to the patient?: Yes Does the patient have an Advance Directive?: No Is there a Surrogate Available?: Yes i.e. HCPOA: Yes i.e. close relative (spouse, child, parent, sibling)?: Yes Review of Systems Constitutional: Denies: Chills, Fever, Weight Change HEENT: Denies: Head Aches, Sinus Congestion, Sinus Drainage Cardiovascular: Denies: Chest Pain, Palpitations Respiratory: Denies: Cough, Shortness of breath at rest, Sputum production Gastrointestinal: Denies: Abdominal Pain, Nausea, Vomiting Genitourinary: Denies: Dysuria Musculoskeletal: Denies: Joint Pain, Joint Tenderness Skin: Denies: Rash, Wounds Neurological: Denies: Numbness, Tingling, Focal weakness Psychiatric: Denies: Anxiety, Depression, Homicidal Ideations, Suicidal Ideations Hematologic/ Lymphatic: Denies: Easy Bruising, Easy Bleeding Patient Problems: Active and Suspected Problems Sepsis (Acute) Infection due to human metapneumovirus (hMPV) (Acute) - Physical Exam General: Alert, Oriented x3, Cooperative HEENT: Atraumatic, PERRLA, EOMI, Normocephalic Neck: Supple, No JVD, Negative Carotid Bruits Lungs: Clear to auscultation, Normal air movement Cardiovascular: Regular rate, No murmurs Abdomen: Bowel Sounds Present, Soft, Non Tender, - - suprapubic catheter in place. Extremities: No edema, Capillary Refill Less than 3 Seconds Skin: No rashes, No breakdown Musculoskeletal: No Tenderness to Palpation of Joints or Extremities Neurological: Cranial nerves II-XII grossly intact Psych/Mental Status: Normal Affect, Appropriate Vital Signs Temp Pulse Resp BP Pulse Ox 96.8 F L 80 16 151/90 H 97 03/16/19 14:08 03/16/19 14:08 03/16/19 14:08 03/16/19 14:08 03/16/19 14:08 Oxygen Delivery Method Room Air Weight: 71.668 kg Body Mass Index (BMI) 22.8 Finger Stick Blood Glucose 67 Intake and Output for Last 24 Hours 03/14/19 03/15/19 03/16/19 23:59 23:59 23:59 Intake Total 960 / 960 2598 / 2598 1338 / 1338 Output Total 1925 / 1925 1550 / 1550 2800 / 2800 Balance -965 / -965 1048 / 1048 -1462 / -1462 Microbiology Past 72 Hours 03/09/19 21:30 Urine Culture - Final Urine Catheter - Catheter Meth. resistant Staph. aureus Brevundimonas diminuta/vesicul Morganella morganii sp sibonii Enterococcus faecalis Laboratory Tests Past 24 Hrs 03/16/19 03/16/19 04:30 04:30 WBC 7.4 RBC 3.28 L Hgb 9.6 L Hct 31.1 L MCV 94.8 MCH 29.3 MCHC 30.9 L RDW 15.9 H RDW Differential 52.3 H Plt Count 204 MPV 10.0 Immature Gran % (Auto) 0.120 Neut % (Auto) 62.7 Lymph % (Auto) 24.7 Pecos % (Auto) 8.0 Eos % (Auto) 4.1 Baso % (Auto) 0.4 Absolute Neuts (auto) 4.6 Absolute Lymphs (auto) 1.82 Total Counted Not Reportable Sodium 145 Potassium 3.9 Chloride 111 H Carbon Dioxide 29.0 Anion Gap 5 BUN 30 H Creatinine 1.73 H Estim Creat Clear Calc 35.53 Est GFR (MDRD) Af Amer 38 L Est GFR (MDRD) Non-Af 32 L BUN/Creatinine Ratio 17.3 Glucose 89 Calcium 9.0 Assessment/Plan All Active Problems Fever (Acute) Sepsis (Acute) Infection due to human metapneumovirus (hMPV) (Acute) Vomiting (Acute) Declining functional status (Acute) 64 year old female with below past medical history hospitalized for sepsis secondary to human metapneumovirus URI, admitted to TCU with debility, here for rehabilitation, strengthening, prior to discharge home with spouse. Encephalopathy - CBCD, BMP, UA, C+S, Chest X-ray, KUB ordered, no fever. Urinary tract infection - Urine cultures colonized with MRSA, M. Morganii in the past, current urine culture growing MRSA, B. Diminuta, M. Morganii, E. Faecalis. I can find no other source of resident's confusion, start Levaquin 750MG IV Q48H (renal dose) x 7 days, consult Dr. Wright for expert care. Acute on chronic kidney failure - Normal saline 100cc/hr IV, her renal function has improved but varies on her oral intake. Fecal impaction of colon - seen on KUB, Failed Lactulose 200GM enema today, but Ching is unable retain enema for long. Golytely 1 gallon x 1 dose today, then Lactulose 200GM enema daily, and 40MG PO QHS, Miralax 17GM daily, Dulcolax 10MG CA daily PRN. Disposition - if insurance cuts Ching, she will continue therapy private pay.
--- NOTE | 2019-03-16 20:09 | PN_ITS ---
Subjective: Resident seen in room, lying in bed. Her Siva has noticed a change in mental status. Ching is confused on alert and oriented x 2. Siva also feels her transfers have gotten worse over the past few days. A urine culture was sent 7 days ago, but due to suprapubic catheter, her urine culture is always positive due to colonization. Siva states that in the past when Ching was confused, it was usually acute cystitis. Vitals/I&O's: Vital Signs Temp Pulse Resp BP Pulse Ox 96.8 F L 80 16 151/90 H 97 03/16/19 14:08 03/16/19 14:08 03/16/19 14:08 03/16/19 14:08 03/16/19 14:08 Oxygen Delivery Method Room Air Weight: 71.668 kg Body Mass Index (BMI) 22.8 Finger Stick Blood Glucose 67 Intake and Output for Last 24 Hours 03/14/19 03/15/19 03/16/19 23:59 23:59 23:59 Intake Total 960 / 960 2598 / 2598 1338 / 1338 Output Total 1925 / 1925 1550 / 1550 2800 / 2800 Balance -965 / -965 1048 / 1048 -1462 / -1462 Microbiology Past 72 Hours 03/09/19 21:30 Urine Catheter - Catheter Urine Culture - Final Meth. resistant Staph. aureus Brevundimonas diminuta/vesicul Morganella morganii sp sibonii Enterococcus faecalis Laboratory Results 03/16/19 04:30: WBC 7.4, RBC 3.28 L, Hgb 9.6 L, Hct 31.1 L, MCV 94.8, MCH 29.3, MCHC 30.9 L, RDW 15.9 H, RDW Differential 52.3 H, Plt Count 204, MPV 10.0, Immature Gran % (Auto) 0.120, Neut % (Auto) 62.7, Lymph % (Auto) 24.7, [place] % (Auto) 8.0, Eos % (Auto) 4.1, Baso % (Auto) 0.4, Absolute Neuts (auto) 4.6, Absolute Lymphs (auto) 1.82, Total Counted Not Reportable 03/16/19 04:30: Sodium 145, Potassium 3.9, Chloride 111 H, Carbon Dioxide 29.0, Anion Gap 5, BUN 30 H, Creatinine 1.73 H, Estim Creat Clear Calc 35.53, Est GFR (MDRD) Af Amer 38 L, Est GFR (MDRD) Non-Af 32 L, BUN/Creatinine Ratio 17.3, Glucose 89, Calcium 9.0 Past Medical History Past Medical History (Chronic Problems): Chronic Problems Neurogenic bladder (Chronic) MRSA colonization (Chronic) Bilateral hydronephrosis (Chronic) Iron deficiency anemia (Chronic) Hypomagnesemia (Chronic) Dehydration (Chronic) Constipation (Chronic) Hydronephrosis (Chronic) Bilateral. Complicated urinary tract infection (Chronic) Chronic suprapubic catheter. Vitamin D deficiency (Chronic) Muscle spasm (Chronic) OAB (overactive bladder) (Chronic) Allergic rhinitis (Chronic) Insomnia (Chronic) Hyperlipidemia (Chronic) CKD (chronic kidney disease) stage 4, GFR 15-29 ml/min (Chronic) Transient ischemic attack (Chronic) Multiple sclerosis (Chronic) Right hemiparesis (Chronic) Migraine headache (Chronic) Allergies ciprofloxacin [From Cipro] Adverse Reaction (Verified 02/26/19 20:55) hypotension interacts w/ zanaflex and baclofen doxycycline Adverse Reaction (Verified 02/26/19 20:55) hypotension interacts w/ zanaflex and baclofen levofloxacin [From Levaquin] Adverse Reaction (Verified 02/26/19 20:55) hypotension interacts w/ zanaflex and baclofen morphine Adverse Reaction (Verified 02/26/19 20:55) hallucinations piperacillin [From Zosyn] Adverse Reaction (Verified 02/26/19 20:55) hypotension interacts w/ zanaflex and baclofen sulfamethoxazole [From Bactrim] Adverse Reaction (Verified 02/26/19 20:55) hypotension interacts w/ zanaflex and baclofen tazobactam [From Zosyn] Adverse Reaction (Verified 02/26/19 20:55) hypotension interacts w/ zanaflex and baclofen trimethoprim [From Bactrim] Adverse Reaction (Verified 02/26/19 20:55) hypotension interacts w/ zanaflex and baclofen vancomycin Adverse Reaction (Verified 02/26/19 20:55) developed toxic levels Home Medications: Ambulatory Orders Medication Instructions Recorded Aspirin E.C. [Ecotrin] 81 mg PO QHS 12/04/16 Atorvastatin Calcium [Lipitor] 40 mg PO QHS 09/05/17 Iron Polysaccharide Complex 150 mg PO DAILYCM 09/05/17 [Ferrex 150] Magnesium Oxide [Mag-Ox 400] 400 mg PO QHS 09/05/17 Amitriptyline HCl [Elavil] 75 mg PO QHS 09/19/17 Lactulose [Chronulac] 40 gm PO QHS 09/19/17 Baclofen 20 mg PO QHS 07/01/18 Baclofen [Lioresal] 10 mg PO BID 07/01/18 Bisacodyl [Dulcolax] 10 mg RECTAL DAILY PRN 07/01/18 Calcitriol [Rocaltrol] 0.25 mcg PO QHS 07/01/18 ALPRAZolam [Xanax] 0.5 mg PO QHS 02/15/19 Acetaminophen [Tylenol] 1,000 mg PO PRN PRN 02/15/19 Melatonin 10 mg PO QHS 02/15/19 Fluticasone 0.05% [Flonase Nasal 1 spray NASAL BID 02/26/19 [place]] Loratadine 5 mg PO DAILY@1800 02/26/19 Mineral Oil/Petrolatum,White 1 applic TOPICAL BID PRN PRN 02/26/19 [Eucerin] Nystatin Powder [Mycostatin Powder] 1 applic TOPICAL BID 02/26/19 Polyethylene Glycol 3350 [Miralax] 17 gm PO DAILY PRN packet 03/01/19 Surgical History: adenoidectomy, tonsillectomy, - - Right shoulder surgery, ORIF right wrist, suprapubic catheter placement. 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 Paternal History Items: - - Denies known paternal medical history including cardiac history. Capacity - Capacity Assessment Tool Can the patient make a choice & communicate that choice?: Yes Can the patient understand benefits, risks and alternatives?: No Can the patient make a logical, rational choice?: No Is the choice the patient makes consistent w/ their values?: Unable to Determine Is there an impending, emergent risk to the patient?: Yes Does the patient have an Advance Directive?: No Is there a Surrogate Available?: Yes i.e. HCPOA: Yes i.e. close relative (spouse, child, parent, sibling)?: Yes Review of Systems Constitutional: Denies: Chills, Fever, Weight Change HEENT: Denies: Head Aches, Sinus Congestion, Sinus Drainage Cardiovascular: Denies: Chest Pain, Palpitations Respiratory: Denies: Cough, Shortness of breath at rest, Sputum production Gastrointestinal: Denies: Abdominal Pain, Nausea, Vomiting Genitourinary: Denies: Dysuria Musculoskeletal: Denies: Joint Pain, Joint Tenderness Skin: Denies: Rash, Wounds Neurological: Denies: Numbness, Tingling, Focal weakness Psychiatric: Denies: Anxiety, Depression, Homicidal Ideations, Suicidal Ideations Hematologic/ Lymphatic: Denies: Easy Bruising, Easy Bleeding Patient Problems: Active and Suspected Problems Sepsis (Acute) Infection due to human metapneumovirus (hMPV) (Acute) - Physical Exam General: Alert, Oriented x3, Cooperative HEENT: Atraumatic, PERRLA, EOMI, Normocephalic Neck: Supple, No JVD, Negative Carotid Bruits Lungs: Clear to auscultation, Normal air movement Cardiovascular: Regular rate, No murmurs Abdomen: Bowel Sounds Present, Soft, Non Tender, - - suprapubic catheter in p lace. Extremities: No edema, Capillary Refill Less than 3 Seconds Skin: No rashes, No breakdown Musculoskeletal: No Tenderness to Palpation of Joints or Extremities Neurological: Cranial nerves II-XII grossly intact Psych/Mental Status: Normal Affect, Appropriate Vital Signs Temp Pulse Resp BP Pulse Ox 96.8 F L 80 16 151/90 H 97 03/16/19 14:08 03/16/19 14:08 03/16/19 14:08 03/16/19 14:08 03/16/19 14:08 Oxygen Delivery Method Room Air Weight: 71.668 kg Body Mass Index (BMI) 22.8 Finger Stick Blood Glucose 67 Intake and Output for Last 24 Hours 03/14/19 03/15/19 03/16/19 23:59 23:59 23:59 Intake Total 960 / 960 2598 / 2598 1338 / 1338 Output Total 1925 / 1925 1550 / 1550 2800 / 2800 Balance -965 / -965 1048 / 1048 -1462 / -1462 Microbiology Past 72 Hours 03/09/19 21:30 Urine Culture - Final Urine Catheter - Catheter Meth. resistant Staph. aureus Brevundimonas diminuta/vesicul Morganella morganii sp sibonii Enterococcus faecalis Laboratory Tests Past 24 Hrs 03/16/19 03/16/19 04:30 04:30 WBC 7.4 RBC 3.28 L Hgb 9.6 L Hct 31.1 L MCV 94.8 MCH 29.3 MCHC 30.9 L RDW 15.9 H RDW Differential 52.3 H Plt Count 204 MPV 10.0 Immature Gran % (Auto) 0.120 Neut % (Auto) 62.7 Lymph % (Auto) 24.7 [place] % (Auto) 8.0 Eos % (Auto) 4.1 Baso % (Auto) 0.4 Absolute Neuts (auto) 4.6 Absolute Lymphs (auto) 1.82 Total Counted Not Reportable Sodium 145 Potassium 3.9 Chloride 111 H Carbon Dioxide 29.0 Anion Gap 5 BUN 30 H Creatinine 1.73 H Estim Creat Clear Calc 35.53 Est GFR (MDRD) Af Amer 38 L Est GFR (MDRD) Non-Af 32 L BUN/Creatinine Ratio 17.3 Glucose 89 Calcium 9.0 Assessment/Plan All Active Problems Fever (Acute) Sepsis (Acute) Infection due to human metapneumovirus (hMPV) (Acute) Vomiting (Acute) Declining functional status (Acute) 64 year old female with below past medical history hospitalized for sepsis secondary to human metapneumovirus URI, admitted to TCU with debility, here for rehabilitation, strengthening, prior to discharge home with spouse. * Encephalopathy - CBCD, BMP, UA, C+S, Chest X-ray, KUB ordered, no fever. * Urinary tract infection - Urine cultures colonized with MRSA, M. Morganii in the past, current urine culture growing MRSA, B. Diminuta, M. Morganii, E. Faecalis. I can find no other source of resident's confusion, start Levaquin 750MG IV Q48H (renal dose) x 7 days, consult Dr. Wright for expert care. * Acute on chronic kidney failure - Normal saline 100cc/hr IV, her renal function has improved but varies on her oral intake. * Fecal impaction of colon - seen on KUB, Failed Lactulose 200GM enema today, but Ching is unable retain enema for long. Golytely 1 gallon x 1 dose today, then Lactulose 200GM enema daily, and 40MG PO QHS, Miralax 17GM daily, Dulcolax 10MG [place] daily PRN. * Disposition - if insurance cuts Ching, she will continue therapy private pay.
[2019-03-16] MEDS: ALPRAZolam 0.5 MG Tablet PO (21:47)
[2019-03-16] MEDS: Magnesium Oxide 400 MG Tablet PO (21:48)
[2019-03-16] MEDS: Aspirin E.C. 81 MG Tablet PO (21:48)
[2019-03-16] MEDS: Calcitriol 0.25 MCG Capsule PO (21:48)
[2019-03-16] MEDS: Atorvastatin Calcium 40 MG Tablet PO (21:48)
[2019-03-16] MEDS: Baclofen 10 MG Tablet 20 MG PO (21:48)
[2019-03-16] MEDS: Amitriptyline 25 MG Tablet 75 MG PO (21:48)
[2019-03-16] MEDS: Lactulose 20 GM/30 ML UDC 40 GM PO (21:49)
[2019-03-16] MEDS: MELATONIN 10 MG TABLET PO (21:49)
[2019-03-16] MEDS: Electrolyte Solution/Peg's 4000 ML 1000 ML PO (22:02)
[2019-03-17] MEDS: 0.9% Normal Saline 1,000 ML 100 ML IV ×3 (01:23→22:27)
[2019-03-17 01:24] VITALS: BP 157/99; PULSE 94; TEMP 36.6; O2SAT 92
[2019-03-17] MEDS: levoFLOXacin IV 750 MG/150 ML BAG 100 MG IV (01:40)
[2019-03-17] MEDS: Nystatin Powder 15gm Bottle 1 APPLIC TOPICAL ×2 (05:25→20:09)
[2019-03-17] MEDS: Menthol/Lanolin/Calamine/Znox 113 GM Tube 1 APPLIC TOPICAL ×2 (05:27→20:08)
[2019-03-17 05:31] VITALS: BP 139/84; PULSE 93; TEMP 36.6
[2019-03-17] MEDS: Fluticasone 0.05% 1 SPRAY NASAL.SRY NASAL ×2 (09:21→20:07)
[2019-03-17] MEDS: Baclofen 10 MG Tablet PO ×2 (09:21→15:29)
[2019-03-17] MEDS: Iron Polysaccharide Complex 150 MG CAPSULE PO (09:21)
[2019-03-17] MEDS: Polyethylene Glycol 3350 17 GM PACKET PO (09:29)
[2019-03-17] MEDS: Bisacodyl 10 MG Suppository RECTAL (11:13)
[2019-03-17] MEDS: Loratadine 10 MG Tablet 5 MG PO (15:30)
[2019-03-17 15:31] VITALS: BP 160/90; PULSE 79; RESP 16
--- NOTE | 2019-03-17 15:48 | PCM.PN.ID ---
Patient Problems: Active and Suspected Problems Sepsis (Acute) Infection due to human metapneumovirus (hMPV) (Acute) Subjective: Worsened mental status for 1-2 days, started on levaquin last night, doing better today. No fever. Denies pain. - Physical Exam General: Cooperative, No apparent distress Lungs: Clear to auscultation, Normal air movement Cardiovascular: Regular rate, Regular Rhythm Abdomen: Soft, Non Tender, Non-Distended Skin: No rashes Vital Signs Temp Pulse Resp BP Pulse Ox 97.8 F 79 16 160/90 H 92 03/17/19 05:31 03/17/19 15:31 03/17/19 15:31 03/17/19 15:31 03/17/19 01:24 Oxygen Delivery Method Room Air Weight: 71.668 kg Body Mass Index (BMI) 22.8 Finger Stick Blood Glucose 67 Intake and Output for Last 24 Hours 03/15/19 03/16/19 03/17/19 23:59 23:59 23:59 Intake Total 2598 / 2598 1818 / 1818 240 / 240 Output Total 1550 / 1550 5200 / 5200 3850 / 3850 Balance 1048 / 1048 -3382 / -3382 -3610 / -3610 Medical Necessity - Tobacco Use Smoking Status: Never smoker Tobacco Use: Non-smoker Route of nutrition/ use of supplements: [] Nutritional Intake: [] IV Site: [] Maldonado Catheter: [] - Assessment/Plan Antibiotics: [] Assessment/Plan: [] Active and Suspected Problems Sepsis (Acute) Infection due to human metapneumovirus (hMPV) (Acute) recurrent uti with suprapubic in place - agree with levaquin. MRSA not being covered but clinically improving. No fever, normal wbc. Will follow, d/w Dr. Feng
--- NOTE | 2019-03-17 16:15 | CHAPLAIN ---
Type of Pastoral Visit ___ Initial Visit _x__ Follow-up Visit ___ On-call Visit ___ General Patient Visit ___ Spiritual Assessment ___ Family Conference ___ Bereavement ___ Rapid Response ___ Code Blue ___ Other (describe below) Pastoral Care Referral From _x__ Patient ___ Family ___ Nurse ___ Physician ___ Interventional Sale Consultant ___ Foot Roentgenologist ___ Other (describe below) Sacrament/Intervention ___ Active listening ___ Anointing ___ Baptist ___ Bereavement ___ Communion ___ Justine exploration ___ ___ Life review ___ Prayer ___ Reconciliation ___ Sacrament of Sick _x__ Supportive presence ___ Wedding ___ Other (describe below) Pastoral Comments brief check in;
[2019-03-17 19:56] VITALS: TEMP 37.5
[2019-03-17] MEDS: Lactulose 20 GM/30 ML UDC 40 GM PO (20:07)
[2019-03-17] MEDS: Atorvastatin Calcium 40 MG Tablet PO (20:08)
[2019-03-17] MEDS: Baclofen 10 MG Tablet 20 MG PO (20:08)
[2019-03-17] MEDS: Calcitriol 0.25 MCG Capsule PO (20:08)
[2019-03-17] MEDS: MELATONIN 10 MG TABLET PO (20:08)
[2019-03-17] MEDS: Aspirin E.C. 81 MG Tablet PO (20:08)
[2019-03-17] MEDS: Magnesium Oxide 400 MG Tablet PO (20:09)
[2019-03-17] MEDS: Amitriptyline 25 MG Tablet 75 MG PO (20:09)
[2019-03-17] MEDS: ALPRAZolam 0.5 MG Tablet PO (20:14)
[2019-03-17] MEDS: Acetaminophen 500 MG Tablet 1000 MG PO (20:15)
[2019-03-18] MEDS: Menthol/Lanolin/Calamine/Znox 113 GM Tube 1 APPLIC TOPICAL ×2 (04:51→21:26)
[2019-03-18] MEDS: Nystatin Powder 15gm Bottle 1 APPLIC TOPICAL ×2 (04:51→21:49)
[2019-03-18] MEDS: 0.9% Normal Saline 1,000 ML 100 ML IV ×2 (08:40→21:26)
[2019-03-18] MEDS: Iron Polysaccharide Complex 150 MG CAPSULE PO (09:00)
[2019-03-18] MEDS: Baclofen 10 MG Tablet PO ×2 (09:05→13:03)
[2019-03-18] MEDS: Fluticasone 0.05% 1 SPRAY NASAL.SRY NASAL ×2 (10:46→21:33)
--- NOTE | 2019-03-18 12:00 | NURSING ---
This nurse called into Pt room to access PT IV pump which was alarmimg. 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 This nurse told Pt he is not permitted to use the pumps here, and he needs to consult nursing staff if there are any issues. voiced understanding. Fadumo SU aware
[2019-03-18 16:00] VITALS: BP 121/70; PULSE 86; RESP 18; TEMP 36.6; O2SAT 95
[2019-03-18] MEDS: Loratadine 10 MG Tablet 5 MG PO (17:19)
[2019-03-18] MEDS: Polyethylene Glycol 3350 17 GM PACKET PO (21:27)
[2019-03-18] MEDS: Atorvastatin Calcium 40 MG Tablet PO (21:28)
[2019-03-18] MEDS: MELATONIN 10 MG TABLET PO (21:28)
[2019-03-18] MEDS: Baclofen 10 MG Tablet 20 MG PO (21:29)
[2019-03-18] MEDS: Magnesium Oxide 400 MG Tablet PO (21:30)
[2019-03-18] MEDS: levoFLOXacin IV 750 MG/150 ML BAG 100 MG IV (21:32)
[2019-03-18] MEDS: Amitriptyline 25 MG Tablet 75 MG PO (21:32)
[2019-03-18] MEDS: Aspirin E.C. 81 MG Tablet PO (21:33)
[2019-03-18] MEDS: Lactulose 20 GM/30 ML UDC 40 GM PO (21:33)
[2019-03-18] MEDS: Calcitriol 0.25 MCG Capsule PO (21:49)
[2019-03-18] MEDS: ALPRAZolam 0.5 MG Tablet PO (21:49)
[2019-03-19] MEDS: Nystatin Powder 15gm Bottle 1 APPLIC TOPICAL ×2 (05:09→21:57)
[2019-03-19] MEDS: Menthol/Lanolin/Calamine/Znox 113 GM Tube 1 APPLIC TOPICAL ×2 (05:09→21:57)
[2019-03-19] MEDS: Iron Polysaccharide Complex 150 MG CAPSULE PO (10:17)
[2019-03-19] MEDS: Baclofen 10 MG Tablet PO ×2 (10:17→13:28)
[2019-03-19] MEDS: Fluticasone 0.05% 1 SPRAY NASAL.SRY NASAL ×2 (10:17→21:42)
[2019-03-19] MEDS: 0.9% NaCl VAD Flush 10 ML IV (12:06)
[2019-03-19] MEDS: 0.9% Normal Saline 1,000 ML 100 ML IV ×2 (12:06→21:48)
[2019-03-19 15:55] VITALS: BP 141/95; PULSE 88; RESP 18; TEMP 36.9; O2SAT 90
[2019-03-19] MEDS: Loratadine 10 MG Tablet 5 MG PO (17:01)
--- NOTE | 2019-03-19 17:03 | NURSING ---
Pt very upset with the state of Pt and Pt room the past couple days, Pt stating that Pt has had her dinner tray still in front of her from the night beforre, her bed has still been in the upright position and her spit cup from brushing her teeth has been left on her tray table. stating that she isn't being washed up appropriately and he doesn't feel her care is being done. I told Pt that I would Pass on information to the RN, but also stated that He had been very upset with staff in past for disturbing Pt and has been very adimit that staff leave Pt alone once she is settled in bed. This nurse explaining to Pt that it is very difficult to do Pt care when Pt is changing how he wants Pt care handled daily. This nurse stated she would pass along information. Pt still upset Fadumo SU aware
[2019-03-19 20:35] VITALS: O2SAT 97
[2019-03-19] MEDS: levoFLOXacin IV 750 MG/150 ML BAG 100 MG IV (21:39)
[2019-03-19] MEDS: Lactulose 20 GM/30 ML UDC 40 GM PO (21:42)
[2019-03-19] MEDS: Polyethylene Glycol 3350 17 GM PACKET PO (21:44)
--- NOTE | 2019-03-19 21:45 | PCA ---
Addendum entered by Gloria Mak 03/19/19 22:17: This nurse attempted to put toothbrush by sink where stated he wants it. Pt refused and stated I don't want it over there it is fine. Pt also refused to change shirt. Pt with two pillows under her head and one under her legs. Pt stating to be comfortable and not needing anything further. Resting in bed with call light in reach. Original Note: Addendum entered by Willy Lo 03/19/19 21:53: Nurse was notified Original Note: while cleaning up residents room she had stated that she did not want her toiletries removed from the white tray table by her window. Asked several times if she wanted it removed and stated no. Also she did not want to change her shirt or remove quintin hose
[2019-03-19] MEDS: Magnesium Oxide 400 MG Tablet PO (21:51)
[2019-03-19] MEDS: MELATONIN 10 MG TABLET PO (21:51)
[2019-03-19] MEDS: Atorvastatin Calcium 40 MG Tablet PO (21:51)
[2019-03-19] MEDS: Aspirin E.C. 81 MG Tablet PO (21:51)
[2019-03-19] MEDS: Amitriptyline 25 MG Tablet 75 MG PO (21:51)
[2019-03-19] MEDS: Baclofen 10 MG Tablet 20 MG PO (21:51)
[2019-03-19] MEDS: Calcitriol 0.25 MCG Capsule PO (21:51)
[2019-03-19] MEDS: ALPRAZolam 0.5 MG Tablet PO (21:52)
[2019-03-20] MEDS: Menthol/Lanolin/Calamine/Znox 113 GM Tube 1 APPLIC TOPICAL ×2 (09:06→21:52)
[2019-03-20] MEDS: Baclofen 10 MG Tablet PO ×2 (09:09→13:08)
[2019-03-20] MEDS: Iron Polysaccharide Complex 150 MG CAPSULE PO (09:09)
[2019-03-20] MEDS: Nystatin Powder 15gm Bottle 1 APPLIC TOPICAL ×2 (09:09→21:53)
[2019-03-20] MEDS: Bisacodyl 10 MG Suppository RECTAL (09:10)
--- NOTE | 2019-03-20 09:55 | NURSING ---
New order for BMP today.
[2019-03-20] MEDS: Fluticasone 0.05% 1 SPRAY NASAL.SRY NASAL ×2 (10:06→21:32)
[2019-03-20] MEDS: Acetaminophen 500 MG Tablet 1000 MG PO ×2 (10:06→21:36)
[2019-03-20 13:06] LABS: Anion Gap 7 (5-15); BUN 27 mg/dL (7-18); BUN/Creat Ratio 14.1 RATIO (10-20); Calcium,Total 9.5 mg/dL (8.5-10.1); Chloride 106 mmol/L (98-107); Creatinine, Serum 1.91 mg/dL (0.55-1.02); EST Glomerular Filtration Rate 28 mL/min (>60); Est Glom Filt Rate - Afr Amer 34 mL/min (>60); Estimated Creatinine Clearance 32.18 ml/min; Glucose 112 mg/dL (74-106); Potassium 4.3 mmol/L (3.5-5.1); Sodium Level 143 mmol/L (136-145)
[2019-03-20] MEDS: 0.9% NaCl VAD Flush 10 ML IV ×2 (15:09→23:30)
[2019-03-20] MEDS: 0.9% Normal Saline 1,000 ML 100 ML IV (15:11)
[2019-03-20 15:43] VITALS: BP 135/85; PULSE 85; RESP 18; TEMP 36.7; O2SAT 93
[2019-03-20 16:00] VITALS: BP 135/85; PULSE 85; RESP 18; TEMP 36.7; O2SAT 93
[2019-03-20] MEDS: Loratadine 10 MG Tablet 5 MG PO (17:10)
--- NOTE | 2019-03-20 18:14 | NURSING ---
New order to increase IVF to 125mL/hr
[2019-03-20] MEDS: Magnesium Oxide 400 MG Tablet PO (21:31)
[2019-03-20] MEDS: Calcitriol 0.25 MCG Capsule PO (21:31)
[2019-03-20] MEDS: MELATONIN 10 MG TABLET PO (21:31)
[2019-03-20] MEDS: Baclofen 10 MG Tablet 20 MG PO (21:31)
[2019-03-20] MEDS: Lactulose 20 GM/30 ML UDC 40 GM PO (21:31)
[2019-03-20] MEDS: ALPRAZolam 0.5 MG Tablet PO (21:31)
[2019-03-20] MEDS: Amitriptyline 25 MG Tablet 75 MG PO (21:31)
[2019-03-20] MEDS: Aspirin E.C. 81 MG Tablet PO (21:31)
[2019-03-20] MEDS: Atorvastatin Calcium 40 MG Tablet PO (21:31)
[2019-03-20] MEDS: Polyethylene Glycol 3350 17 GM PACKET PO (21:31)
--- NOTE | 2019-03-20 22:37 | NURSING ---
Addendum entered by Gloria Mak 03/20/19 23:53: Pt wanting updated. Siva updated on CXR, weight gain, O2 being applied and order for Lasix. Siva expressing pt has never had issues like this before and wants pt to be closely monitored. This nurse explained pt with be monitored by this nurse closely and the other staff on the unit. Original Note: Addendum entered by Gloria Mak 03/20/19 23:42: Dr. Feng updated on CXR and weight gain of 7lbs. New order for Lasix 20mg IV x1. Original Note: Pt was assisted by this nurse and [employer] TECHNICIAN to the bed. Pt became very SOB and pale. O2 83% and wheezing noted throughout posterior lung bases. Anterior lungs diminished. O2 3L applied via NC at 3L. O2 up to 92%. HR 104. BP 137/95. Temp 97.4. IV fluids stopped. Dr. Feng updated. Order for stat CXR and BMP.
[2019-03-20 22:40] VITALS: O2SAT 92
[2019-03-20 22:44] VITALS: PULSE 103; RESP 20
[2019-03-20] MEDS: Albuterol 2.5 MG/3 ML VIAL.NEB. INHALATION (22:47)
--- NOTE | 2019-03-20 22:50 | RAD_ITS ---
STUDY: X-RAY CHEST REASON FOR EXAM: Female, 64 years old. Shortness of breath. TECHNIQUE: PA and lateral views of the chest. COMPARISON: March 16, 2019. FINDINGS: Stable left subclavian Port-A-Cath. Again seen is marked elevation of the right hemidiaphragm with underlying air-filled colon. The lungs are well-expanded and free of infiltrate or mass. There is no demonstrated pleural abnormality. Normal size heart. Normal mediastinum and ramy. Normal visualized pulmonary arteries. Normal visualized aortic arch and descending thoracic aorta. No visualized osseous changes. Large amount of distended colon beneath the right hemidiaphragm. RAD/Chest PA and Lateral IMPRESSION: Markedly elevated right hemidiaphragm secondary to distended bowel. There is no acute cardiopulmonary disease or interval change. Electronically Signed: Devaughn Haq DO at 23:12 EDT Tel [phone], Service support ,
[2019-03-20 23:50] LABS: Anion Gap 6 (5-15); BUN 30 mg/dL (7-18); BUN/Creat Ratio 16.6 RATIO (10-20); Calcium,Total 9.9 mg/dL (8.5-10.1); Chloride 104 mmol/L (98-107); Creatinine, Serum 1.81 mg/dL (0.55-1.02); EST Glomerular Filtration Rate 30 mL/min (>60); Est Glom Filt Rate - Afr Amer 36 mL/min (>60); Estimated Creatinine Clearance 33.96 ml/min; Glucose 118 mg/dL (74-106); Potassium 4.1 mmol/L (3.5-5.1); Sodium Level 140 mmol/L (136-145)
[2019-03-21] MEDS: Furosemide 20 MG/2 ML VIAL IV ×2 (00:24→22:20)
[2019-03-21] MEDS: 0.9% NaCl VAD Flush 10 ML IV ×2 (00:24→21:43)
--- NOTE | 2019-03-21 06:50 | NURSING ---
Wheezing still noted to posterior lung bases. O2 95% 3L via NC.
[2019-03-21] MEDS: Nystatin Powder 15gm Bottle 1 APPLIC TOPICAL ×2 (09:30→21:51)
[2019-03-21] MEDS: Menthol/Lanolin/Calamine/Znox 113 GM Tube 1 APPLIC TOPICAL ×2 (09:30→21:51)
--- NOTE | 2019-03-21 10:09 | PCM.PN.ID ---
Patient Problems: Active and Suspected Problems Sepsis (Acute) Infection due to human metapneumovirus (hMPV) (Acute) Subjective: Had been steadily improving over past few days in terms of alertness and activity, but last night with increased SOB and sleepiness this AM. - Physical Exam General: No apparent distress, Lethargic Lungs: Diminished Cardiovascular: Regular rate, Regular Rhythm Abdomen: Soft, Non Tender, Non-Distended Skin: No rashes Vital Signs Temp Pulse Resp BP Pulse Ox 98.1 F 103 H 20 H 135/85 H 92 03/20/19 16:00 03/20/19 22:44 03/20/19 22:44 03/20/19 16:00 03/20/19 22:40 Oxygen Flow Rate (L/min) 3 Oxygen Delivery Method Nasal Cannula Weight: 74.843 kg Body Mass Index (BMI) 22.8 Finger Stick Blood Glucose 67 Intake and Output for Last 24 Hours 03/19/19 03/20/19 03/21/19 23:59 23:59 23:59 Intake Total 600 / 600 420 / 420 Output Total 3650 / 3650 3700 / 3700 1125 / 1125 Balance -3050 / -3050 -3280 / -3280 -1125 / -1125 Laboratory Tests Past 24 Hrs 03/20/19 03/20/19 12:30 23:30 Sodium 143 140 Potassium 4.3 4.1 Chloride 106 104 Carbon Dioxide 30.0 30.0 Anion Gap 7 6 BUN 27 H 30 H Creatinine 1.91 H 1.81 H Estim Creat Clear Calc 32.18 33.96 Est GFR (MDRD) Af Amer 34 L 36 L Est GFR (MDRD) Non-Af 28 L 30 L BUN/Creatinine Ratio 14.1 16.6 Glucose 112 H 118 H Calcium 9.5 9.9 Medical Necessity - Tobacco Use Smoking Status: Never smoker Tobacco Use: Non-smoker Route of nutrition/ use of supplements: [] Nutritional Intake: [] IV Site: [] Maldonado Catheter: [] - Assessment/Plan Antibiotics: [] Assessment/Plan: [] Active and Suspected Problems Sepsis (Acute) Infection due to human metapneumovirus (hMPV) (Acute) recurrent uti with suprapubic in place - cont with levaquin as planned. MRSA not being covered but clinically improving. No fever, normal wbc. Will follow
[2019-03-21 11:00] VITALS: O2SAT 98
[2019-03-21] MEDS: Iron Polysaccharide Complex 150 MG CAPSULE PO (11:32)
[2019-03-21] MEDS: Baclofen 10 MG Tablet PO ×2 (11:32→16:59)
[2019-03-21] MEDS: Fluticasone 0.05% 1 SPRAY NASAL.SRY NASAL ×2 (11:33→21:53)
[2019-03-21 15:00] VITALS: O2SAT 99
[2019-03-21 15:14] VITALS: PULSE 81; RESP 16; O2SAT 99
[2019-03-21 15:23] VITALS: BP 115/64; PULSE 79; RESP 18; TEMP 36.7; O2SAT 99
--- NOTE | 2019-03-21 15:28 | NURSING ---
AT 11 AM PT OXYGEN WAS 98% ON 4L. TURNED PT DOWN TO 3L. AT 1500 PT OXYGEN AT 99% ON 3L. TURNED 02 DOWN TO 2L. WILL CONTINUE TO MONITOR. REPORTED TO SHARLENE LATIF
[2019-03-21] MEDS: Loratadine 10 MG Tablet 5 MG PO (16:59)
--- NOTE | 2019-03-21 17:12 | CON.PCM_ITS ---
Problem List (1) CKD (chronic kidney disease) stage 4, GFR 15-29 ml/min Status: Chronic Consultation - Renal PCP/ Referring MD: Requesting physician: [] Primary care physician: Alexandria Carranza MD - History of Present Illness History of Present Illness: The patient is a 64 year old F past medical history of chronic kidney disease stage 3-4. Baseline creatinine around 1.8-2 mg deciliter. Patient follows with me in the clinic. Last creatinine during her last visit was 1.8 mg deciliter. Patient has multiple sclerosis with a neurogenic bladder. She has suprapubic catheter. History of frequent UTIs. patient was admitted to [facility] for UTI and metapneumovirus URI. Patient was then transferred to rehab enter for rehabilitation renal team was consulted for chronic kidney disease management. Patient's kidney function worsen with the creatinine rises more than 2 on march 14 when she started in IV fluid 100 cc/h. Last night, patient became shortness of breath and IV fluid was stopped. Last creatinine 1.8 mg/dL with the patient is her baseline Patient's Siva is at bedside and answered all his questions. Review of system:patient is nonverbal] - Allergies Allergies: Allergies ciprofloxacin [From Cipro] Adverse Reaction (Verified 02/26/19 20:55) hypotension interacts w/ zanaflex and baclofen doxycycline Adverse Reaction (Verified 02/26/19 20:55) hypotension interacts w/ zanaflex and baclofen levofloxacin [From Levaquin] Adverse Reaction (Verified 02/26/19 20:55) hypotension interacts w/ zanaflex and baclofen morphine Adverse Reaction (Verified 02/26/19 20:55) hallucinations piperacillin [From Zosyn] Adverse Reaction (Verified 02/26/19 20:55) hypotension interacts w/ zanaflex and baclofen sulfamethoxazole [From Bactrim] Adverse Reaction (Verified 02/26/19 20:55) hypotension interacts w/ zanaflex and baclofen tazobactam [From Zosyn] Adverse Reaction (Verified 02/26/19 20:55) hypotension interacts w/ zanaflex and baclofen trimethoprim [From Bactrim] Adverse Reaction (Verified 02/26/19 20:55) hypotension interacts w/ zanaflex and baclofen vancomycin Adverse Reaction (Verified 02/26/19 20:55) developed toxic levels - Current Medications Current Medications: Current Medications Acetaminophen (Tylenol) 1,000 mg PO Q6H PRN PRN PRN Reason: MILD PAIN (1-3/10) Last Admin: 03/20/19 21:36 Dose: 1,000 mg Documented by: Albuterol Sulfate (Ventolin Aerosols) 2.5 mg INHALATION Q6H PRN PRN PRN Reason: SOB &/OR WHEEZING Last Admin: 03/20/19 22:47 Dose: 2.5 mg Documented by: Alprazolam (Xanax) 0.5 mg PO QHS [facility] Last Admin: 03/20/19 21:31 Dose: 0.5 mg Documented by: Amitriptyline HCl (Elavil) 75 mg PO QHS [facility] Last Admin: 03/20/19 21:31 Dose: 75 mg Documented by: Aspirin (Ecotrin) 81 mg PO QHS [facility] Last Admin: 03/20/19 21:31 Dose: 81 mg Documented by: Atorvastatin Calcium (Lipitor) 40 mg PO QHS [facility] Last Admin: 03/20/19 21:31 Dose: 40 mg Documented by: Baclofen (Lioresal) 20 mg PO QHS [facility] Last Admin: 03/20/19 21:31 Dose: 20 mg Documented by: Baclofen (Lioresal) 10 mg PO 0800,1400 [facility] Last Admin: 03/21/19 16:59 Dose: 10 mg Documented by: Bisacodyl (Dulcolax) 10 mg RECTAL DAILY PRN PRN Reason: Constipation Last Admin: 03/20/19 09:10 Dose: 10 mg Documented by: Calamine/Phenol (Calmoseptine Ointment) 1 applic TOPICAL 0800,2200 [facility]; Protocol Last Admin: 03/21/19 09:30 Dose: 1 applicatio Documented by: Calcitriol (Rocaltrol) 0.25 mcg PO QHS [facility] Last Admin: 03/20/19 21:31 Dose: 0.25 mcg Documented by: Fluticasone Propionate (Flonase Nasal [place]) 1 spray NASAL 1000,2200 [facility] Last Admin: 03/21/19 11:33 Dose: 1 spray Documented by: Guaifenesin (Robitussin Dm) 10 ml PO Q4H PRN PRN PRN Reason: COUGH Last Admin: 03/04/19 11:25 Dose: 10 ml Documented by: Heparin Sodium (Beef Lung) () 50 units IV UD PRN PRN Reason: HEPARIN FLUSH Levofloxacin (Levaquin Iv) 750 mg in 150 mls @ 100 mls/hr IV Q48@2200 [facility] Stop: 03/21/19 23:29 Last Admin: 03/19/19 21:39 Dose: 100 mls/hr Documented by: Lactulose (Chronulac, Cephulac) 40 gm PO QHS [facility] Last Admin: 03/20/19 21:31 Dose: 40 gm Documented by: Lactulose (Chronulac, Cephulac) 200 gm RECTAL Q12H PRN PRN Reason: Constipation Loratadine (Claritin) 5 mg PO DAILY@1800 [facility] Last Admin: 03/21/19 16:59 Dose: 5 mg Documented by: Magnesium Oxide (Mag-Ox 400) 400 mg PO QHS [facility] Last Admin: 03/20/19 21:31 Dose: 400 mg Documented by: Melatonin (Melatonin) 10 mg PO QHS [facility] Last Admin: 03/20/19 21:31 Dose: 10 mg Documented by: Multi-Ingredient Cream (Eucerin) 1 applic TOPICAL 0800,2200 [facility]; Protocol Last Admin: 03/21/19 09:33 Dose: 1 applicatio Documented by: Nystatin (Mycostatin Powder) 1 applic TOPICAL 0800,2200 [facility]; Protocol Last Admin: 03/21/19 09:30 Dose: 1 applicatio Documented by: Polyethylene Glycol (Miralax) 17 gm PO 2200 [facility] Last Admin: 03/20/19 21:31 Dose: 17 gm Documented by: Polysaccharide Iron Complex ([facility]rex 150) [facility] Last Admin: 03/21/19 11:32 Dose: 150 mg Documented by: Sodium Chloride () 10 ml IV UD PRN PRN Reason: VAD FLUSH Last Admin: 03/21/19 00:24 Dose: 10 ml Documented by: - Past Medical History Past Medical History (Chronic Problems): Chronic Problems Neurogenic bladder (Chronic) MRSA colonization (Chronic) Bilateral hydronephrosis (Chronic) Iron deficiency anemia (Chronic) Hypomagnesemia (Chronic) Dehydration (Chronic) Constipation (Chronic) Hydronephrosis (Chronic) Bilateral. Complicated urinary tract infection (Chronic) Chronic suprapubic catheter. Vitamin D deficiency (Chronic) Muscle spasm (Chronic) OAB (overactive bladder) (Chronic) Allergic rhinitis (Chronic) Insomnia (Chronic) Hyperlipidemia (Chronic) CKD (chronic kidney disease) stage 4, GFR 15-29 ml/min (Chronic) Transient ischemic attack (Chronic) Multiple sclerosis (Chronic) Right hemiparesis (Chronic) Migraine headache (Chronic) - Past Surgical History Surgical History: adenoidectomy, tonsillectomy, - - Right shoulder surgery, ORIF right wrist, suprapubic catheter placement. - Social History Smoking Status: Never smoker Alcohol: None Drugs: None - Family History Maternal History Items: - - Denies known maternal medical history including cardiac history. Paternal History Items: - - Denies known paternal medical history including cardiac history. Patient Problems: Active and Suspected Problems Sepsis (Acute) Infection due to human metapneumovirus (hMPV) (Acute) - Physical Exam General: Alert, Cooperative HEENT: Atraumatic Oral: Moist Mucosa Neck: Supple, No JVD Lungs: - - bilateral expiratory rhonchi Cardiovascular: Regular rate, Regular Rhythm, Normal S1, Normal S2 Abdomen: Soft, Non Tender, Non-Distended Extremities: No clubbing, No cyanosis, No edema Skin: No rashes Musculoskeletal: No Tenderness to Palpation of Joints or Extremities Lymphatic: No Cervical, Supraclavicular, or Inguinal Adenopathy Comment: elias catheter in place Vital Signs Temp Pulse Resp BP Pulse Ox 98.0 F 79 18 115/64 99 03/21/19 15:23 03/21/19 15:23 03/21/19 15:23 03/21/19 15:23 03/21/19 15:23 Oxygen Flow Rate (L/min) 3 Oxygen Delivery Method Nasal Cannula Weight: 74.843 kg Body Mass Index (BMI) 22.8 Finger Stick Blood Glucose 67 Intake and Output for Last 24 Hours 03/19/19 03/20/19 03/21/19 23:59 23:59 23:59 Intake Total 600 / 600 420 / 420 Output Total 3650 / 3650 3700 / 3700 1125 / 1125 Balance -3050 / -3050 -3280 / -3280 -1125 / -1125 Laboratory Tests Past 24 Hrs 03/20/19 23:30 Sodium 140 Potassium 4.1 Chloride 104 Carbon Dioxide 30.0 Anion Gap 6 BUN 30 H Creatinine 1.81 H Estim Creat Clear Calc 33.96 Est GFR (MDRD) Af Amer 36 L Est GFR (MDRD) Non-Af 30 L BUN/Creatinine Ratio 16.6 Glucose 118 H Calcium 9.9 Assessment/Plan All Active Problems Fever (Acute) Sepsis (Acute) Infection due to human metapneumovirus (hMPV) (Acute) Vomiting (Acute) Declining functional status (Acute) 1-chronic kidney disease from previous AKIs due to ATN induced by sepsis. Creatinine is at baseline. Last creatinine 1.8 mg deciliter. Okay to continue holding IV fluid. Monitor kidney function. I encouraged oral water intake. avoid nephrotoxic like IV contrast. I'll check renal function tomorrow 2-UTI. On Levaquin. Continue the same for now. 3-secondary hyperparathyroidism. On Sensipar. Continue the same dose for now Thank you for the consult. Renal team will continue to follow. Plan of care was discussed with the patient's . Please call if any question. Sri Montiel MD [phone]
[2019-03-21] MEDS: Lactulose 20 GM/30 ML UDC 40 GM PO (21:39)
[2019-03-21] MEDS: ALPRAZolam 0.5 MG Tablet PO (21:42)
[2019-03-21] MEDS: Baclofen 10 MG Tablet 20 MG PO (21:43)
[2019-03-21] MEDS: levoFLOXacin IV 750 MG/150 ML BAG 100 MG IV (21:43)
[2019-03-21] MEDS: Calcitriol 0.25 MCG Capsule PO (21:43)
[2019-03-21] MEDS: Atorvastatin Calcium 40 MG Tablet PO (21:43)
[2019-03-21] MEDS: Aspirin E.C. 81 MG Tablet PO (21:43)
[2019-03-21] MEDS: MELATONIN 10 MG TABLET PO (21:44)
[2019-03-21] MEDS: Amitriptyline 25 MG Tablet 75 MG PO (21:44)
[2019-03-21] MEDS: Magnesium Oxide 400 MG Tablet PO (21:44)
[2019-03-21] MEDS: Polyethylene Glycol 3350 17 GM PACKET PO (21:44)
--- NOTE | 2019-03-21 21:45 | NURSING ---
In to give medications to patient. Patient noted to have crackles anteriorly and posteriorly. Patient states I feel just as bad as I did last night. Patient o2 noted to be 92 on 2 liter of O2. Patient's O2 bumped up to 3 Liters. Patient noted to have 4 empty pitchers noted on her table. Per report her Siva states that he wants her to drink 5 pitchers of water a day. Patient states that she has had too much fluid and that she has drank to much. Dr. Feng notified of this. New orders given for IV lasix 20 mg x 1. and to let Siva know that patient should only be drinking 2 L and not 5 liters. Siva notified of new orders. Siva states that patient only had 2 liters of fluid today. Siva states that he hopes that Dr. Montiel will help figure out the balance between fluid overload and patient's kidney function.
[2019-03-21 21:57] VITALS: BP 142/85; PULSE 96; O2SAT 92
[2019-03-22 05:48] LABS: Anion Gap 7 (5-15); BUN 33 mg/dL (7-18); Calcium,Total 9.9 mg/dL (8.5-10.1); Chloride 104 mmol/L (98-107); Creatinine, Serum 1.94 mg/dL (0.55-1.02); EST Glomerular Filtration Rate 28 mL/min (>60); Est Glom Filt Rate - Afr Amer 33 mL/min (>60); Estimated Creatinine Clearance 31.68 ml/min; Glucose 100 mg/dL (74-106); Potassium 3.9 mmol/L (3.5-5.1); Sodium Level 146 mmol/L (136-145)
--- NOTE | 2019-03-22 08:04 | ECHOCS_ITS ---
Reason For Study: CHF Procedure This was a 2D Doppler, Color Flow transthoracic echocardiogram. The study was technically difficult. Exam performed portable in patient room. Left Ventricle Normal size and thickness. The estimated ejection fraction is 60 %. Stage 1 diastolic dysfunction. No regional wall motion abnormalities noted. Right Ventricle Normal size and thickness. Normal systolic function. Atria Normal left atrium. Normal right atrium. Normal atrial septum. Bubble contrast study negative for right to left interatrial shunt. Mitral Valve The mitral valve is structurally normal. No prolapse or stenosis seen. Trivial mitral valve insufficiency. Tricuspid Valve Normal tricuspid valve. Mild (1+) tricuspid valve insufficiency. Right ventricular systolic pressure estimated to be 27 mmHg. Aortic Valve Trisinus/trileaflet aortic valve. Normal aortic valve. Pulmonic Valve The pulmonic valve is not well visualized. Great Vessels Normal aortic root. Normal arch. Normal inferior vena cava. Inferior vena cava collapse with sniff. Pericardium/Pleural No pericardial effusion. Medication Performed a rapid injection of agitated mix of 9 cc saline and 1cc air to assess for atrial septal defect. Diluted definity 2ml given slow IV push to enhance endocardial definition. MMode/2D Measurements & Calculations LVIDd: 4.2 cm IVSd: 1.0 cm Ao root diam: 3.0 cm LVIDs: 2.5 cm LVPWd: 0.84 cm RVDd: 2.9 cm FS: 39.0 % LAV(MOD-bp): 31.9 ml LA A4 area: 12.9 cm2 LA dimension(2D): 3.4 cm LAV(MOD-bp) Indexed: 16.6 ml/m2 LAV(MOD-sp2): 31.2 ml LAV(MOD-sp4): 29.8 ml RA A4 area: 7.4 cm2 Doppler Measurements & Calculations MV E max huey: 50.8 cm/sec Lat Peak E' Huey: 6.4 cm/sec Med Peak E' Huey: 4.7 cm/sec MV A max huey: 86.4 cm/sec E/E' lat: 7.9 E/E' med: 10.9 MV E/A: 0.59 Ao V2 max: 141.6 cm/sec LV V1 max: 104.0 cm/sec PA V2 max: 67.0 cm/sec Ao max P.0 mmHg LV V1 max P.3 mmHg TR max huey: 217.7 cm/sec TR max P.0 mmHg Interpretation Summary The estimated ejection fraction is 60 %. Stage 1 diastolic dysfunction. Trivial mitral valve insufficiency. Mild (1+) tricuspid valve insufficiency. Right ventricular systolic pressure estimated to be 27 mmHg. Bubble contrast study negative for right to left interatrial shunt. Compared to echo report dated 03/04/2017, no appreciable changes noted. The study was technically difficult. Contrast injection was performed. Ordering Physician: Chava Feng Referring Physician: Alexandria Carranza M.D. Performed By: Dinah Mayberry RDCS
[2019-03-22] MEDS: Menthol/Lanolin/Calamine/Znox 113 GM Tube 1 APPLIC TOPICAL ×2 (11:17→20:34)
[2019-03-22] MEDS: Nystatin Powder 15gm Bottle 1 APPLIC TOPICAL ×2 (11:18→20:35)
[2019-03-22] MEDS: Fluticasone 0.05% 1 SPRAY NASAL.SRY NASAL ×2 (12:43→20:42)
[2019-03-22] MEDS: Baclofen 10 MG Tablet PO (13:46)
[2019-03-22 14:15] VITALS: PULSE 82; RESP 18; O2SAT 93
[2019-03-22 14:32] VITALS: BP 114/69; PULSE 82; RESP 20; TEMP 37.1
--- NOTE | 2019-03-22 15:00 | NURSING ---
PT TOOK PT OXYGEN OFF IN FRONT OF THIS NURSE AND STATED THAT I WANT TO SEE WHAT SHE IS STATING AT. PT OXYGEN WAS 93% ON ROOM AIR. АННА FROM THERAPY IN ROOM AT THE TIME. PT STATED WE WILL JUST LEAVE IT OFF. THIS NURSE GAVE THERAPY THE PULSE OX TO MONITOR DURING THERAPY. THIS NURSE ALSO WILL CONTINUE TO MONITOR. REPORTED TO SHARLENE YUEN
--- NOTE | 2019-03-22 15:06 | PCM.PN.REN ---
Patient Problems: Active and Suspected Problems Sepsis (Acute) Infection due to human metapneumovirus (hMPV) (Acute) Subjective: Mild URI symptoms Creatinine improved - Physical Exam General: Alert, Oriented x3, Cooperative HEENT: Atraumatic, PERRLA, EOMI, Normocephalic Neck: Supple, No JVD, Negative Carotid Bruits Lungs: Clear to auscultation, Normal air movement Cardiovascular: Regular rate, No murmurs Abdomen: Bowel Sounds Present, Soft, Non Tender Extremities: No edema, Capillary Refill Less than 3 Seconds Skin: No rashes, No breakdown Musculoskeletal: No Tenderness to Palpation of Joints or Extremities Neurological: Cranial nerves II-XII grossly intact Psych/Mental Status: Normal Affect, Appropriate Vital Signs Temp Pulse Resp BP Pulse Ox 98.7 F 82 20 H 114/69 92 03/22/19 14:32 03/22/19 14:32 03/22/19 14:32 03/22/19 14:32 03/21/19 21:57 Oxygen Flow Rate (L/min) 2 Oxygen Delivery Method Room Air Weight: 74.843 kg Body Mass Index (BMI) 22.8 Finger Stick Blood Glucose 67 Intake and Output for Last 24 Hours 03/20/19 03/21/19 03/22/19 23:59 23:59 23:59 Intake Total 420 / 420 160 / 160 Output Total 3700 / 3700 3625 / 3625 1949 / 1949 Balance -3280 / -3280 -3465 / -3465 -1949 / Laboratory Tests Past 24 Hrs 03/22/19 05:00 Sodium 146 H Potassium 3.9 Chloride 104 Carbon Dioxide 35.0 H Anion Gap 7 BUN 33 H Creatinine 1.94 H Estim Creat Clear Calc 31.68 Est GFR (MDRD) Af Amer 33 L Est GFR (MDRD) Non-Af 28 L BUN/Creatinine Ratio 17.0 Glucose 100 Calcium 9.9 Medical Necessity - Tobacco Use Smoking Status: Never smoker Tobacco Use: Non-smoker Assessment/Plan All Active Problems Fever (Acute) Sepsis (Acute) Infection due to human metapneumovirus (hMPV) (Acute) Vomiting (Acute) Declining functional status (Acute) 1-chronic kidney disease from previous AKIs due to ATN induced by sepsis. Creatinine is at baseline. Last creatinine 1.8 mg deciliter. Okay to continue holding IV fluid. Monitor kidney function. I encouraged oral water intake. avoid nephrotoxic like IV contrast. I'll check renal function tomorrow 2-UTI. On Levaquin. Continue the same for now. 3-secondary hyperparathyroidism. On Sensipar. Continue the same dose for now Thank you for the consult. Renal team will continue to follow. Plan of care was discussed with the patient's . Please call if any question.
--- NOTE | 2019-03-22 16:14 | NURSING ---
Patient has improved throughout shift. Sitting up in wheelchair, alert, oriented and able to engage in conversation.
[2019-03-22] MEDS: Loratadine 10 MG Tablet 5 MG PO (17:01)
[2019-03-22 17:05] VITALS: O2SAT 94
--- NOTE | 2019-03-22 17:06 | NURSING ---
PT ON ROOM AIR,OXYGEN 94%. WILL CONTINUE TO MONITOR.
--- NOTE | 2019-03-22 18:19 | NURSING ---
Dr. Feng reviewed ECHO, NNO.
[2019-03-22] MEDS: Lactulose 20 GM/30 ML UDC 40 GM PO (20:34)
[2019-03-22] MEDS: Polyethylene Glycol 3350 17 GM PACKET PO (20:34)
[2019-03-22] MEDS: Calcitriol 0.25 MCG Capsule PO (20:35)
[2019-03-22] MEDS: Aspirin E.C. 81 MG Tablet PO (20:35)
[2019-03-22] MEDS: Atorvastatin Calcium 40 MG Tablet PO (20:36)
[2019-03-22] MEDS: MELATONIN 10 MG TABLET PO (20:36)
[2019-03-22] MEDS: Magnesium Oxide 400 MG Tablet PO (20:36)
[2019-03-22] MEDS: Baclofen 10 MG Tablet 20 MG PO (20:36)
[2019-03-22] MEDS: Amitriptyline 25 MG Tablet 75 MG PO (20:36)
[2019-03-22] MEDS: ALPRAZolam 0.5 MG Tablet PO (20:39)
[2019-03-23] MEDS: 0.9% NaCl VAD Flush 10 ML IV ×3 (05:58→06:00)
[2019-03-23 06:31] LABS: Anion Gap 7 (5-15); BUN 36 mg/dL (7-18); BUN/Creat Ratio 18.6 RATIO (10-20); Calcium,Total 9.6 mg/dL (8.5-10.1); Chloride 100 mmol/L (98-107); Creatinine, Serum 1.94 mg/dL (0.55-1.02); EST Glomerular Filtration Rate 28 mL/min (>60); Est Glom Filt Rate - Afr Amer 33 mL/min (>60); Estimated Creatinine Clearance 31.68 ml/min; Glucose 90 mg/dL (74-106); Sodium Level 141 mmol/L (136-145)
[2019-03-23] MEDS: Menthol/Lanolin/Calamine/Znox 113 GM Tube 1 APPLIC TOPICAL ×2 (08:53→20:06)
[2019-03-23] MEDS: Iron Polysaccharide Complex 150 MG CAPSULE PO (08:54)
[2019-03-23] MEDS: Nystatin Powder 15gm Bottle 1 APPLIC TOPICAL ×2 (08:55→20:05)
[2019-03-23] MEDS: Baclofen 10 MG Tablet PO ×2 (08:55→14:52)
[2019-03-23] MEDS: Fluticasone 0.05% 1 SPRAY NASAL.SRY NASAL ×2 (08:56→20:04)
--- NOTE | 2019-03-23 12:01 | PCM.PN.REN ---
Patient Problems: Active and Suspected Problems Sepsis (Acute) Infection due to human metapneumovirus (hMPV) (Acute) Subjective: doing well BP stable - Physical Exam General: Alert, Oriented x3, Cooperative HEENT: Atraumatic, PERRLA, EOMI, Normocephalic Neck: Supple, No JVD, Negative Carotid Bruits Lungs: Clear to auscultation, Normal air movement Cardiovascular: Regular rate, No murmurs Abdomen: Bowel Sounds Present, Soft, Non Tender Extremities: No edema, Capillary Refill Less than 3 Seconds Skin: No rashes, No breakdown Musculoskeletal: No Tenderness to Palpation of Joints or Extremities Neurological: Cranial nerves II-XII grossly intact Psych/Mental Status: Normal Affect, Appropriate Vital Signs Temp Pulse Resp BP Pulse Ox 98.7 F 82 20 H 114/69 94 03/22/19 14:32 03/22/19 14:32 03/22/19 14:32 03/22/19 14:32 03/22/19 17:05 Oxygen Flow Rate (L/min) 2 Oxygen Delivery Method Room Air Weight: 74.843 kg Body Mass Index (BMI) 22.8 Finger Stick Blood Glucose 67 Intake and Output for Last 24 Hours 03/21/19 03/22/19 03/23/19 23:59 23:59 23:59 Intake Total 160 / 160 480 / 480 Output Total 3625 / 3625 2400 / 2400 575 / 575 Balance -3465 / -3465 -1920 / -1920 -575 / -575 Laboratory Tests Past 24 Hrs 03/23/19 06:03 Sodium 141 Potassium 4.0 Chloride 100 Carbon Dioxide 34.0 H Anion Gap 7 BUN 36 H Creatinine 1.94 H Estim Creat Clear Calc 31.68 Est GFR (MDRD) Af Amer 33 L Est GFR (MDRD) Non-Af 28 L BUN/Creatinine Ratio 18.6 Glucose 90 Calcium 9.6 Medical Necessity - Tobacco Use Smoking Status: Never smoker Tobacco Use: Non-smoker Assessment/Plan All Active Problems Fever (Acute) Sepsis (Acute) Infection due to human metapneumovirus (hMPV) (Acute) Vomiting (Acute) Declining functional status (Acute) 1-chronic kidney disease from previous AKIs due to ATN induced by sepsis. Creatinine is at baseline. Last creatinine 1.8 mg deciliter. IVF in nightif needed Total goal 2 L /day I encouraged oral water intake. avoid nephrotoxic like IV contrast. 2-UTI. On Levaquin. Continue the same for now. 3-secondary hyperparathyroidism. On Sensipar. Continue the same dose for now Thank you for the consult. Renal team will continue to follow. Plan of care was discussed with the patient's . Please call if any question.
[2019-03-23 16:00] VITALS: BP 123/75; PULSE 109; RESP 18; TEMP 36.7; O2SAT 91
[2019-03-23] MEDS: Acetaminophen 500 MG Tablet 1000 MG PO (17:36)
[2019-03-23] MEDS: Loratadine 10 MG Tablet 5 MG PO (17:37)
[2019-03-23] MEDS: ALPRAZolam 0.5 MG Tablet PO (20:03)
[2019-03-23] MEDS: Lactulose 20 GM/30 ML UDC 40 GM PO (20:03)
[2019-03-23] MEDS: Amitriptyline 25 MG Tablet 75 MG PO (20:03)
[2019-03-23] MEDS: Polyethylene Glycol 3350 17 GM PACKET PO (20:03)
[2019-03-23] MEDS: Aspirin E.C. 81 MG Tablet PO (20:03)
[2019-03-23] MEDS: Atorvastatin Calcium 40 MG Tablet PO (20:04)
[2019-03-23] MEDS: Magnesium Oxide 400 MG Tablet PO (20:04)
[2019-03-23] MEDS: MELATONIN 10 MG TABLET PO (20:04)
[2019-03-23] MEDS: Calcitriol 0.25 MCG Capsule PO (20:05)
[2019-03-23] MEDS: Baclofen 10 MG Tablet 20 MG PO (20:11)
[2019-03-23 20:43] VITALS: PULSE 100; O2SAT 83
--- NOTE | 2019-03-23 20:53 | NURSING ---
This nurse into do patients assessment. Pt O2 83% on RA. Pt denied being SOB. Wheezing noted to posterior lungs. Pt refused breathing treatment. Education provided. 3L NC applied. O2 at 91%. Pt resting in wheelchair with call light in reach.
--- NOTE | 2019-03-23 21:34 | PCA ---
Pt did not want a gown on . Wanted to stay in her shirt.
[2019-03-24] MEDS: 0.9% NaCl VAD Flush 10 ML IV ×3 (04:57→21:52)
[2019-03-24 05:26] LABS: Anion Gap 7 (5-15); BUN 41 mg/dL (7-18); Calcium,Total 10.3 mg/dL (8.5-10.1); Chloride 101 mmol/L (98-107); Creatinine, Serum 1.95 mg/dL (0.55-1.02); EST Glomerular Filtration Rate 27 mL/min (>60); Est Glom Filt Rate - Afr Amer 33 mL/min (>60); Estimated Creatinine Clearance 31.52 ml/min; Glucose 95 mg/dL (74-106); Potassium 4.5 mmol/L (3.5-5.1); Sodium Level 142 mmol/L (136-145)
[2019-03-24] MEDS: Menthol/Lanolin/Calamine/Znox 113 GM Tube 1 APPLIC TOPICAL ×2 (08:41→21:30)
[2019-03-24] MEDS: Nystatin Powder 15gm Bottle 1 APPLIC TOPICAL ×2 (08:41→21:32)
[2019-03-24] MEDS: Fluticasone 0.05% 1 SPRAY NASAL.SRY NASAL ×2 (09:26→21:33)
[2019-03-24 10:00] VITALS: PULSE 86; O2SAT 97
[2019-03-24] MEDS: Iron Polysaccharide Complex 150 MG CAPSULE PO (10:01)
[2019-03-24] MEDS: Baclofen 10 MG Tablet PO ×2 (10:01→14:58)
--- NOTE | 2019-03-24 10:40 | PCM.PN.REN ---
Patient Problems: Active and Suspected Problems Sepsis (Acute) Infection due to human metapneumovirus (hMPV) (Acute) Subjective: sleeping - Physical Exam General: Alert, Oriented x3, Cooperative HEENT: Atraumatic, PERRLA, EOMI, Normocephalic Neck: Supple, No JVD, Negative Carotid Bruits Lungs: Clear to auscultation, Normal air movement Cardiovascular: Regular rate, No murmurs Abdomen: Bowel Sounds Present, Soft, Non Tender Extremities: No edema, Capillary Refill Less than 3 Seconds Skin: No rashes, No breakdown Musculoskeletal: No Tenderness to Palpation of Joints or Extremities Neurological: Cranial nerves II-XII grossly intact Psych/Mental Status: Normal Affect, Appropriate Vital Signs Temp Pulse Resp BP Pulse Ox 98.0 F 100 18 123/75 H 83 03/23/19 16:00 03/23/19 20:43 03/23/19 16:00 03/23/19 16:00 03/23/19 20:43 Oxygen Flow Rate (L/min) 3 Oxygen Delivery Method Nasal Cannula Weight: 74.843 kg Body Mass Index (BMI) 22.8 Finger Stick Blood Glucose 67 Intake and Output for Last 24 Hours 03/22/19 03/23/19 03/24/19 23:59 23:59 23:59 Intake Total 480 / 480 1440 / 1440 Output Total 2400 / 2400 1600 / 1600 550 / 550 Balance -1920 / -1920 -160 / -160 -550 / -550 Laboratory Tests Past 24 Hrs 03/24/19 04:55 Sodium 142 Potassium 4.5 Chloride 101 Carbon Dioxide 34.0 H Anion Gap 7 BUN 41 H Creatinine 1.95 H Estim Creat Clear Calc 31.52 Est GFR (MDRD) Af Amer 33 L Est GFR (MDRD) Non-Af 27 L BUN/Creatinine Ratio 21.0 H Glucose 95 Calcium 10.3 H Medical Necessity - Tobacco Use Smoking Status: Never smoker Tobacco Use: Non-smoker Assessment/Plan All Active Problems Fever (Acute) Sepsis (Acute) Infection due to human metapneumovirus (hMPV) (Acute) Vomiting (Acute) Declining functional status (Acute) 1-chronic kidney disease from previous AKIs due to ATN induced by sepsis. Creatinine is at baseline. Last creatinine 1.8 mg deciliter. IVF in night if needed Total goal 2 L /day I encouraged oral water intake. avoid nephrotoxic like IV contrast. 2-UTI. On Levaquin. Continue the same for now. 3-secondary hyperparathyroidism. On Sensipar. Continue the same dose for now Thank you for the consult. Renal team will continue to follow. Plan of care was discussed with the patient's . Please call if any question.
--- NOTE | 2019-03-24 13:35 | NURSING ---
It was brought to this nurse's attention that pt had no breakfast or lunch tray in room today. [employer]'s picked up a tray for pt's but not the pt. This nurse asked pt's if she had eaten today and he stated that she was not awake enough to eat yet. Fadumo SU aware.
[2019-03-24] MEDS: Acetaminophen 500 MG Tablet 1000 MG PO (13:52)
[2019-03-24 14:20] VITALS: O2SAT 96
[2019-03-24 14:56] VITALS: BP 127/79; PULSE 105; RESP 18; TEMP 36.6; O2SAT 90
--- NOTE | 2019-03-24 15:29 | NURSING ---
Frequent SPO2 monitoring done by this nurse. Pt fluctuating between 95-96% on RA.
[2019-03-24] MEDS: Loratadine 10 MG Tablet 5 MG PO (17:12)
[2019-03-24] MEDS: 0.9% Normal Saline 1,000 ML 100 ML IV (17:19)
[2019-03-24] MEDS: Baclofen 10 MG Tablet 20 MG PO (21:29)
[2019-03-24] MEDS: ALPRAZolam 0.5 MG Tablet PO (21:29)
[2019-03-24] MEDS: Lactulose 20 GM/30 ML UDC 40 GM PO (21:30)
[2019-03-24] MEDS: Aspirin E.C. 81 MG Tablet PO (21:30)
[2019-03-24] MEDS: MELATONIN 10 MG TABLET PO (21:30)
[2019-03-24] MEDS: Amitriptyline 25 MG Tablet 75 MG PO (21:31)
[2019-03-24] MEDS: Atorvastatin Calcium 40 MG Tablet PO (21:32)
[2019-03-24] MEDS: Magnesium Oxide 400 MG Tablet PO (21:32)
[2019-03-24] MEDS: Polyethylene Glycol 3350 17 GM PACKET PO (21:32)
[2019-03-24] MEDS: Calcitriol 0.25 MCG Capsule PO (21:33)
[2019-03-25 04:58] LABS: BUN 44 mg/dL (7-18); BUN/Creat Ratio 20.6 RATIO (10-20); Calcium,Total 10.5 mg/dL (8.5-10.1); Chloride 104 mmol/L (98-107); Creatinine, Serum 2.14 mg/dL (0.55-1.02); EST Glomerular Filtration Rate 25 mL/min (>60); Est Glom Filt Rate - Afr Amer 30 mL/min (>60); Estimated Creatinine Clearance 28.72 ml/min; Glucose 122 mg/dL (74-106); Potassium 4.4 mmol/L (3.5-5.1); Sodium Level 144 mmol/L (136-145)
[2019-03-25 04:59] LABS: Anion Gap 7 (5-15)
--- NOTE | 2019-03-25 09:30 | NURSING ---
PT REQUESTING PT BE PUT BACK ON IV FLUIDS DUE TO BUN AND CREATININE RESULTS. REPORTED TO SHARLENE LATIF
--- NOTE | 2019-03-25 09:46 | NURSING ---
PT REQUESTING IV FLUIDS TO RUN AT 100 HR CONTINUOUSLY. REPORTED TO SHARLENE LATIF
[2019-03-25] MEDS: 0.9% Normal Saline 1,000 ML 100 ML IV ×2 (11:07→21:39)
[2019-03-25] MEDS: Nystatin Powder 15gm Bottle 1 APPLIC TOPICAL ×2 (13:05→21:02)
[2019-03-25] MEDS: Menthol/Lanolin/Calamine/Znox 113 GM Tube 1 APPLIC TOPICAL ×2 (13:06→21:03)
[2019-03-25 13:12] VITALS: PULSE 85; RESP 18; O2SAT 93
--- NOTE | 2019-03-25 13:27 | NURSING ---
DURING ASSESSMENT NOTICED WHITE PATCHES ON SIDE OF TONGUE .LEFT SIDE. ASKED PT IF HER TONGUE WAS SORE PT SAID YES. PT THEN STATED ,KEN IS A MOUTH BREATHER THATS PROBABLY WHY HER TONGUE IS SORE. REPORTED TO SHARLENE LATIF
[2019-03-25] MEDS: Acetaminophen 500 MG Tablet 1000 MG PO (14:11)
[2019-03-25] MEDS: Baclofen 10 MG Tablet PO (14:17)
[2019-03-25] MEDS: Iron Polysaccharide Complex 150 MG CAPSULE PO (14:17)
[2019-03-25 16:00] VITALS: BP 140/73; PULSE 87; RESP 17; TEMP 36.7; O2SAT 92
[2019-03-25] MEDS: Loratadine 10 MG Tablet 5 MG PO (17:45)
[2019-03-25] MEDS: Lactulose 20 GM/30 ML UDC 40 GM PO (20:58)
[2019-03-25] MEDS: Baclofen 10 MG Tablet 20 MG PO (20:59)
[2019-03-25] MEDS: MELATONIN 10 MG TABLET PO (20:59)
[2019-03-25] MEDS: Aspirin E.C. 81 MG Tablet PO (20:59)
[2019-03-25] MEDS: Amitriptyline 25 MG Tablet 75 MG PO (21:00)
[2019-03-25] MEDS: Atorvastatin Calcium 40 MG Tablet PO (21:00)
[2019-03-25] MEDS: Magnesium Oxide 400 MG Tablet PO (21:00)
[2019-03-25] MEDS: Calcitriol 0.25 MCG Capsule PO (21:01)
[2019-03-25] MEDS: Polyethylene Glycol 3350 17 GM PACKET PO (21:01)
[2019-03-25] MEDS: ALPRAZolam 0.5 MG Tablet PO (21:11)
--- NOTE | 2019-03-25 21:56 | NURSING ---
Addendum entered by Criss Arellano 03/26/19 03:03: Patient [facility], aware. Addendum entered by Criss Arellano 03/25/19 23:11: Report given to SHARLENE Nieto down in ER. Addendum entered by Criss Arellano 03/25/19 23:09: Dr. Feng notified of Chest xray results. New orders to send patient down to ER for evaluation. Addendum entered by Criss Arellano 03/25/19 22:23: Dr. Feng notified. New orders given. Original Note: Nurse was administering medication as order and heard gargling as pt was breathing. Listened to posterior and anterior lung heard crackles and wheezing during this time. Sp02 88% RA applied nasal cannula on at 3l will continue to monitor. Pt also felt warm to touch got a temperature on her 99.2 tympanic. Pt color to hand were blue. When Siva was here earlier he stated, that he would like to be called if symptoms changes. States, that he things that she has been aspirating some while she been here. Called respiratory for a prn breathing treatment. Notified that pt was been put on oxygen at this time. Rn notified on pt situation.
--- NOTE | 2019-03-25 22:02 | RAD_ITS ---
HISTORY: TROUBLE BREATHING ADDITIONAL HISTORY: None provided. COMPARISON: 03/20/2019 TECHNIQUE: Frontal and lateral chest radiographs. Number of images including paperwork: 2 FINDINGS: LUNGS AND PLEURA: Low lung volumes. Elevated right hemidiaphragm. Hazy left mid to lower lung opacity. No dense consolidation. CARDIAC SILHOUETTE: Stable. MEDIASTINUM AND JASMIN: Stable. UPPER ABDOMEN: Unremarkable. SKELETON AND SOFT TISSUES: No acute findings. OTHER DEVICES AND HARDWARE: Unchanged left chest port. RAD/Chest PA and Lateral IMPRESSION: Low lung volumes. Hazy left hemithorax opacity, possibly atelectasis, early/mild infiltrate and/or soft tissue superimposition. at 0025 Reported and signed by: Criss Nickerson MD Electronically Signed: Criss Nickerson MD at 0:25 EDT Tel , Service support ,
[2019-03-25 22:03] VITALS: PULSE 109; RESP 24; O2SAT 87
[2019-03-25] MEDS: Albuterol 2.5 MG/3 ML VIAL.NEB. INHALATION (22:03)
--- NOTE | 2019-03-25 22:05 | CPS ---
Called to give PRN aerosol tx to pt. Upon entrance to pt room pt could be audibly heard from doorway of wheezing/gurgling. SPO2 on 3l 87%. Pt tachypneic with bilateral breath sounds with coarse crackles and expiratory wheezing. Pt tolerated aerosol well. Nasal cannula turned up to 4L with an SPO2 of 92%. Nursing aware of pts increased oxygen needs and little to no improvement with aerosol treatment.
[2019-03-25 22:15] VITALS: O2SAT 92
--- NOTE | 2019-03-25 23:22 | NURSING ---
At 2315, contacted patient's spouse regarding spo2 at 91% on 5L, results of CXR suggestive for pnu or fluid overload per Dr. Feng, and audible course crackles. She was sent to the ED for evaluation. He wishes for us to contact him again once the ED has diagnosed and decided her care.
[2019-03-26 06:47] LABS: Anion Gap 2 (5-15); BUN 43 mg/dL (7-18); BUN/Creat Ratio 18.2 RATIO (10-20); Calcium,Total 9.1 mg/dL (8.5-10.1); Chloride 112 mmol/L (98-107); Creatinine, Serum 2.36 mg/dL (0.55-1.02); EST Glomerular Filtration Rate 22 mL/min (>60); Est Glom Filt Rate - Afr Amer 27 mL/min (>60); Estimated Creatinine Clearance 26.04 ml/min; Glucose 98 mg/dL (74-106); Potassium 4.6 mmol/L (3.5-5.1); Sodium Level 145 mmol/L (136-145)
--- NOTE | 2019-03-26 09:42 | DCINST_ITS ---
- Discharge Diagnoses Current Active Problems: Current Active and Chronic Problems Acute metabolic encephalopathy (Acute) You will use the following diet at home:: No restrictions, Regular Your food should be the consistency of: Regular Your liquids should be the consistency of: Regular/Thin Discharge Activity: Return to Normal Activity, May Shower, Use Walker Weight Bearing Status: Weight bearing as tolerated Call your doctor if you observe: Fever of 101 or Higher, Inability to urinate, Inability to have a bowel movement, Shortness of breath, Chest pain, Uncontrolled pain Allergies/Adverse Reactions: Allergies ciprofloxacin [From Cipro] Adverse Reaction (Verified 03/25/19 23:18) hypotension interacts w/ zanaflex and baclofen doxycycline Adverse Reaction (Verified 03/25/19 23:18) hypotension interacts w/ zanaflex and baclofen levofloxacin [From Levaquin] Adverse Reaction (Verified 03/25/19 23:18) hypotension interacts w/ zanaflex and baclofen morphine Adverse Reaction (Verified 03/25/19 23:18) hallucinations piperacillin [From Zosyn] Adverse Reaction (Verified 03/25/19 23:18) hypotension interacts w/ zanaflex and baclofen sulfamethoxazole [From Bactrim] Adverse Reaction (Verified 03/25/19 23:18) hypotension interacts w/ zanaflex and baclofen tazobactam [From Zosyn] Adverse Reaction (Verified 03/25/19 23:18) hypotension interacts w/ zanaflex and baclofen trimethoprim [From Bactrim] Adverse Reaction (Verified 03/25/19 23:18) hypotension interacts w/ zanaflex and baclofen vancomycin Adverse Reaction (Verified 03/25/19 23:18) developed toxic levels Medications to take at Discharge Aspirin E.C. [Ecotrin] 81 mg PO QHS 12/04/16 Atorvastatin Calcium [Lipitor] 40 mg PO QHS 09/05/17 Iron Polysaccharide Complex [Ferrex 150] 150 mg PO DAILYCM 09/05/17 Magnesium Oxide [Mag-Ox 400] 400 mg PO QHS 09/05/17 Amitriptyline HCl [Elavil] 75 mg PO QHS 09/19/17 Lactulose [Chronulac] 40 gm PO QHS 09/19/17 Baclofen 20 mg PO QHS 07/01/18 Baclofen [Lioresal] 10 mg PO BID 07/01/18 Bisacodyl [Dulcolax] 10 mg RECTAL DAILY PRN 07/01/18 Calcitriol [Rocaltrol] 0.25 mcg PO QHS 07/01/18 ALPRAZolam [Xanax] 0.5 mg PO QHS 02/15/19 Acetaminophen [Tylenol] 1,000 mg PO Q6H PRN PRN 02/15/19 Melatonin 10 mg PO QHS 02/15/19 Fluticasone 0.05% [Flonase Nasal [place]] 1 spray NASAL BID 02/26/19 Loratadine 5 mg PO DAILY@1800 02/26/19 Mineral Oil/Petrolatum,White [Eucerin] 1 applic TOPICAL BID PRN PRN 02/26/19 Nystatin Powder [Mycostatin Powder] 1 applic TOPICAL BID 02/26/19 Albuterol Aerosols [Ventolin Aerosols] 2.5 mg INHALATION Q6H PRN PRN 03/25/19 Guaifenesin Dm [Robitussin Dm] 10 ml PO Q4H PRN PRN 03/25/19 Lactulose [Chronulac, Cephulac] 200 gm PO BID PRN PRN 03/25/19 Menthol [Bengay Vanishing Scent] 1 applic TOPICAL TID PRN PRN 03/25/19 Menthol/Lanolin/Calamine/Znox [Calmoseptine Ointment] 1 applic TOPICAL BID 03/25/19 Polyethylene Glycol 3350 [Miralax] 17 gm PO QHS 03/25/19 Primary Care Physician: Alexandria Carranza MD [Primary Care Provider] - Please follow up with your Primary Care Physician in: 1 week. Test Results: Test results from this visit will be discussed in further detail at your follow- up appointment, if applicable. Proposed Discharge Date: 03/26/19
--- NOTE | 2019-03-26 09:45 | DS.PCM_ITS ---
Discharge Date and Diagnosis - Problem List Patient Problems: Active and Suspected Problems Acute metabolic encephalopathy (Acute) Date of Admission: 03/26/19 Date of Discharge: 03/26/19 - Primary Discharge Diagnosis Active and Suspected Problems Acute metabolic encephalopathy (Acute) - Secondary Discharge Diagnosis Chronic Problems Neurogenic bladder (Chronic) MRSA colonization (Chronic) Bilateral hydronephrosis (Chronic) Iron deficiency anemia (Chronic) Hypomagnesemia (Chronic) Dehydration (Chronic) Constipation (Chronic) Hydronephrosis (Chronic) Bilateral. Complicated urinary tract infection (Chronic) Chronic suprapubic catheter. Vitamin D deficiency (Chronic) Muscle spasm (Chronic) OAB (overactive bladder) (Chronic) Allergic rhinitis (Chronic) Insomnia (Chronic) Hyperlipidemia (Chronic) CKD (chronic kidney disease) stage 4, GFR 15-29 ml/min (Chronic) Transient ischemic attack (Chronic) Multiple sclerosis (Chronic) Right hemiparesis (Chronic) Migraine headache (Chronic) Hospital Course and Treatment Operations: None Procedures: None Summary of Care Provided: The patient is a 64 year old Female with below past medical history hospitalized for sepsis secondary to human metapneumovirus URI, admitted to TCU with debility, here for rehabilitation, strengthening, prior to discharge home with spouse. 03/25/2019 Resident had rising BUN, Creatinine, Normal Saline running at 100cc/hour. Resident able to eat and drink. 2200 Resident developed hypoxia, crackles on lung exam, gurgling. No diuretics were given. Discharge to [facility] Emergency Department for hypoxia, change in mental status. Patient Problems: Active and Suspected Problems Acute metabolic encephalopathy (Acute) - Physical Exam Vital Signs Temp Pulse Resp BP Pulse Ox 98.0 F 109 H 24 H 140/73 H 92 03/25/19 16:00 03/25/19 22:03 03/25/19 22:03 03/25/19 16:00 03/25/19 22:15 Oxygen Flow Rate (L/min) 4 Oxygen Delivery Method Nasal Cannula Weight: 74.843 kg Body Mass Index (BMI) 22.8 Finger Stick Blood Glucose 67 Intake and Output for Last 24 Hours 03/24/19 03/25/19 03/26/19 23:59 23:59 23:59 Intake Total 360 / 360 480 / 480 Output Total 1250 / 1250 1875 / 1875 Balance -890 / -890 -1395 / -1395 Laboratory Tests Past 24 Hrs 03/26/19 06:19 Sodium 145 Potassium 4.6 Chloride 112 H Carbon Dioxide 31.0 Anion Gap 2 L BUN 43 H Creatinine 2.36 H Estim Creat Clear Calc 26.04 Est GFR (MDRD) Af Amer 27 L Est GFR (MDRD) Non-Af 22 L BUN/Creatinine Ratio 18.2 Glucose 98 Calcium 9.1 Discharge Diet: No Restrictions Discharge Activity: Return to Normal Activity, May Shower, Use Walker Weight Bearing Status: Weight bearing as tolerated Call your doctor if you observe: Fever of 101 or Higher, Inability to urinate, Inability to have a bowel movement, Shortness of breath, Chest pain, Uncontrolled pain Home Medications: Medications to take at Discharge Aspirin E.C. [Ecotrin] 81 mg PO QHS 12/04/16 Atorvastatin Calcium [Lipitor] 40 mg PO QHS 09/05/17 Iron Polysaccharide Complex [Ferrex 150] 150 mg PO DAILYCM 09/05/17 Magnesium Oxide [Mag-Ox 400] 400 mg PO QHS 09/05/17 Amitriptyline HCl [Elavil] 75 mg PO QHS 09/19/17 Lactulose [Chronulac] 40 gm PO QHS 09/19/17 Baclofen 20 mg PO QHS 07/01/18 Baclofen [Lioresal] 10 mg PO BID 07/01/18 Bisacodyl [Dulcolax] 10 mg RECTAL DAILY PRN 07/01/18 Calcitriol [Rocaltrol] 0.25 mcg PO QHS 07/01/18 ALPRAZolam [Xanax] 0.5 mg PO QHS 02/15/19 Acetaminophen [Tylenol] 1,000 mg PO Q6H PRN PRN 02/15/19 Melatonin 10 mg PO QHS 02/15/19 Fluticasone 0.05% [Flonase Nasal [place]] 1 spray NASAL BID 02/26/19 Loratadine 5 mg PO DAILY@1800 02/26/19 Mineral Oil/Petrolatum,White [Eucerin] 1 applic TOPICAL BID PRN PRN 02/26/19 Nystatin Powder [Mycostatin Powder] 1 applic TOPICAL BID 02/26/19 Albuterol Aerosols [Ventolin Aerosols] 2.5 mg INHALATION Q6H PRN PRN 03/25/19 Guaifenesin Dm [Robitussin Dm] 10 ml PO Q4H PRN PRN 03/25/19 Lactulose [Chronulac, Cephulac] 200 gm PO BID PRN PRN 03/25/19 Menthol [Bengay Vanishing Scent] 1 applic TOPICAL TID PRN PRN 03/25/19 Menthol/Lanolin/Calamine/Znox [Calmoseptine Ointment] 1 applic TOPICAL BID 03/25/19 Polyethylene Glycol 3350 [Miralax] 17 gm PO QHS 03/25/19 Primary Care Physician: Alexandria Carranza MD [Primary Care Provider] - Please follow up with your Primary Care Physician in: 1 week. Disposition: Acute care Hospital Minutes spent on discharge:: 30 Patient Condition:: Guarded Medical Necessity - Tobacco Use Smoking Status: Never smoker Tobacco Use: Non-smoker Meaningful Use Info Meaningful Use Diagnoses (Choose all that apply): None applicable
--- NOTE | 2019-04-04 17:03 | CASEMGMT ---
Social Work Pt unexpectedly discharged - unable to complete DC MDS assessment. Yolie Vigil, MUNICIPAL MAINTENANCE WORKER BRONC BREAKER
== END 2019-03-26 03:05 | disposition short-term general hospital (02) | DRG 947 ==
PROVIDERS: Internal Medicine Nephrology; Admitting Provider Family Medicine Geriatric Medicine; Family Provider Internal Medicine; PCP Internal Medicine; Referring Provider Family Medicine Geriatric Medicine; Visit Provider Family Medicine Geriatric Medicine
DX: R53.81 Other malaise (principal); G93.41 Metabolic encephalopathy; N39.0 Urinary tract infection, site not specified; T83.511A Infection and inflammatory reaction due to indwelling urethral catheter, initial encounter; N18.4 Chronic kidney disease, stage 4 (severe); G81.91 Hemiplegia, unspecified affecting right dominant side; N25.81 Secondary hyperparathyroidism of renal origin; F41.9 Anxiety disorder, unspecified; B35.4 Tinea corporis; D50.9 Iron deficiency anemia, unspecified; E78.5 Hyperlipidemia, unspecified; G35 Multiple sclerosis; N32.81 Overactive bladder; E55.9 Vitamin D deficiency, unspecified; N31.9 Neuromuscular dysfunction of bladder, unspecified; E21.3 Hyperparathyroidism, unspecified; Z86.73 Personal history of transient ischemic attack (TIA), and cerebral infarction without residual deficits; Z93.59 Other cystostomy status; B97.81 Human metapneumovirus as the cause of diseases classified elsewhere; J06.9 Acute upper respiratory infection, unspecified; B96.4 Proteus (mirabilis) (morganii) as the cause of diseases classified elsewhere; B95.62 Methicillin resistant Staphylococcus aureus infection as the cause of diseases classified elsewhere; B96.89 Other specified bacterial agents as the cause of diseases classified elsewhere; Y73.8 Miscellaneous gastroenterology and urology devices associated with adverse incidents, not elsewhere classified
CPT/HCPCS: 71046; 74019; 80048; 80069; 81001; 85025; 87077; 87086; 87088; 87186; 87633; 92507; 92523; 92526; 92610; 93306; 94640; 97110; 97162; 97166; 97530; 97535; 97802; J7030; Q9957; A4216; C8929; J1940

== ENCOUNTER 2019-03-25 23:13 | Inpatient (IN) | payer MEDICARE, SELFPAY ==
[2019-03-25 23:14] VITALS: BP 130/81; PULSE 103; RESP 14; TEMP 36.6; O2SAT 92; BMI 31.4
--- NOTE | 2019-03-25 23:35 | EKG12_ITS ---
Test Reason : SOB Blood Pressure : / mmHG Vent. Rate : 103 BPM Atrial Rate : 103 BPM P-R Int : 144 ms QRS Dur : 104 ms QT Int : 386 ms P-R-T Axes : 066 020 018 degrees QTc Int : 505 ms Sinus tachycardia Otherwise normal ECG Confirmed by YUMI BENJAMIN ([id number]), editorial clerk CHARLEY LÓPEZ ([id number]) on 03/29/2019 1:57:38 PM Referred By: SKYE Confirmed By:YUMI BENJAMIN
--- NOTE | 2019-03-25 23:42 | CT_ITS ---
STUDY: CT ABDOMEN AND PELVIS WITHOUT CONTRAST REASON FOR EXAM: Female, 64 years old. Shortness of breath and abdominal distention RADIATION DOSAGE (If Supplied By Facility): CTDIvol = ( 24.01 ) mGy, DLP = ( 1345.29 ) mGycm TECHNIQUE: Transaxial images were obtained from the dome of the diaphragm to the symphysis pubis without oral contrast, and without intravenous contrast. Sagittal and coronal images were reconstructed. Individualized dose optimization techniques were used for this CT. COMPARISON: February 15, 2019. FINDINGS: Evaluation limited by lack of IV and oral contrast. Superior aspect of the abdomen excluded from this exam. Elevation of the right hemidiaphragm. Atelectasis/scarring within the visualized lungs. There may be a small left pleural effusion. Coronary artery calcifications. Portions of the superior aspect of the liver are excluded from this exam. Visualized aspects of the unenhanced liver are grossly unremarkable. Normal unenhanced gallbladder and extrahepatic biliary system. Evaluation the spleen is limited by lack of contrast as well as motion artifact. The spleen appears grossly unremarkable. Motion and the lack of contrast somewhat limits evaluation the pancreas. There is no significant pancreatic ductal dilatation. Pancreas appears grossly unremarkable. Normal unenhanced bilateral adrenal glands. Kidneys appear small in size. The left being smaller than the right. Bilateral nephrolithiasis measuring up to 5 mm. No significant hydronephrosis or hydroureter identified. 1.3 cm low-attenuation structure left kidney likely representing a cyst. There is a small hiatal hernia. Evaluation of bowel is limited by the lack of contrast material. There is a large amount stool within the colon. Portions of the right colon are incompletely visualized on this study extending superiorly outside the field of view. There is interposition of the colon between the liver and diaphragm. The colon appears redundant. There is a large amount stool within the rectosigmoid region with surrounding stranding. Correlate for stercoral colitis. There is no small bowel dilatation by CT criteria. The appendix is visualized and appears normal. Again noted slight dilatation of the proximal duodenum. Similar to prior exam. Possible SMA syndrome. There is diffuse atherosclerotic calcification of the abdominal aorta, without a demonstrated aneurysm. Cannot evaluate for dissection due to lack of IV contrast. No free fluid or free air seen. Nonspecific subcentimeter short axis mesenteric and retroperitoneal lymph nodes. There is a suprapubic catheter with the balloon in the bladder. Small punctate calcifications/stones are seen within the urinary bladder the dependent portions. Calcifications within the uterus possible fibroids. This could be further evaluated with ultrasound as clinically indicated. Again noted 1.5 cm left adnexal low-attenuation structure likely ovarian cyst. Small fat-containing umbilical hernia. There are diffuse degenerative changes of the visualized lumbar spine. Scoliotic curvature to the spine. T12 and L2 compression fracture deformity similar to prior exam. CT/Abdomen/Pelvis without Cont IMPRESSION: Bilateral nonobstructing nephrolithiasis. There is bilateral renal atrophy more so on the left. Correlate for constipation. There is a large amount of stool within the rectosigmoid with some stranding surrounding the rectosigmoid region. Correlate for stercoral colitis. Again noted area of sigmoid colonic wall thickening. Similar to prior study. Underlying neoplasm cannot be excluded. However given the similar appearance thought less likely. Correlate with colonoscopy. Elevated right hemidiaphragm again noted. Nonvisualization of portions of the liver and right colon. Bladder stones. Chronic appearing dilatation of proximal duodenum. 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 Next Other findings as discussed above. Electronically Signed: Huber Delacruz, at 1:25 EDT Tel , Service support ,
--- NOTE | 2019-03-25 23:42 | CT_ITS ---
STUDY: CT CHEST WITHOUT CONTRAST REASON FOR EXAM: Female, 64 years old. Shortness of breath RADIATION DOSAGE (If Supplied By Facility): CTDIvol = ( 22.34 ) mGy, DLP = ( 825.77 ) mGycm TECHNIQUE: Transaxial imaging was performed without the administration of intravenous contrast material. Individualized dose optimization techniques were used for this CT. COMPARISON: None. FINDINGS: TRACHEA, THYROID, ESOPHAGUS: No tracheomalacia,stricture or wall thickening. Thyroid and esophagus are normal CARDIOVASCULAR SYSTEM: The thoracic aorta is grossly within normal limits. The pulmonary trunk and the left pulmonary arteries are also grossly within normal limits. The heart is not enlarged. There are no vascular developmental anomalies. JASMIN AND LYMPH NODES: No hilar masses and no mediastinal, hilar, axillary or supraclavicular adenopathy LUNGS, LOW-ATTENUATION: No traction bronchiectasis, honeycombing,emphysema, lung cysts or cavitations LUNGS, HIGH ATTENUATION: No nodules/masses, ground glass opacities/consolidations or increased interstitial markings. Atelectatic changes in the lung bases LUNGS, MOSAIC/CRAZY PAVING: Not evident PLEURA AND CHEST WALL: No pneumothoraces,rib fractures or any osteolytic/osteoblastic changes . The soft tissue chest wall including the breasts are normal at this a small right-sided pleural effusion UPPER ABDOMEN: A markedly elevated right hemidiaphragm with distended loops of the hepatic flexure. A 7.3 mm in right calyceal calculus. A small benign right renal cyst. Atrophic left kidney. CT/Chest without Contrast IMPRESSION: A markedly elevated right hemidiaphragm. Bibasilar platelike atelectatic changes and a small right-sided effusion. Mild fecal stasis. The right side 7.3 mm calyceal calculus. Electronically Signed: El Esaprza MD at 1:14 EDT Tel , Service support ,
[2019-03-25 23:45] VITALS: O2SAT 88; O2SAT 89
[2019-03-25 23:54] LABS: Absolute Lymphocyte Count 2.62 X10^3/ul (0.83-4.51); Absolute Neutrophil Count 4.5 X10^3/uL (2.0-7.7); Basophil# 0.03 X10^3/uL; Basophil% 0.3 % (0-1); Eosinophil# 0.62 X10^3/uL; Eosinophils% 7.1 % (0-5); Hematocrit 35.1 % (37-47); Hemoglobin 10.9 g/dl (12.0-15.0); Lymphocyte # 2.62 X10^3/ul (4.0); Lymphocyte % 30.2 % (19-41); Mean Corp Hgb Conc 31.1 g/gl (32-36); Mean Corpuscular Hgb 29.4 pg (27.0-32.0); Mean Corpuscular Volume 94.6 fL (81-99); Mean Platelet Vol. 9.8 fl (6.2-12.0); Monocyte# 0.91 X10^3/uL; Monocyte% 10.5 % (0-10); Neutrophil # 4.48 X10^3/uL (2.7-7.7); Neutrophil % 51.7 % (47-70); Platelet Count 172 K/mm3 (150-450); RBC Distribution Width CV 16.9 % (11.6-14.6); RBC Distribution Width SD 56.7 fl (35.1-43.9); Red Blood Count 3.71 M/mm3 (4.2-5.4); White Blood Count 8.7 K/mm3 (4.4-11.0)
[2019-03-25 23:56] LABS: POSITIVE COUNT NO; POSITIVE DIFFERENTIAL NO; POSITIVE MORPHOLOGY NO
[2019-03-26] VITALS (19 sets, daily range): BP systolic 108–148; BP diastolic 68–85; PULSE 72–96; RESP 14–18; TEMP 36.5–36.8; O2SAT 91–99; BMI 27.1
--- NOTE | 2019-03-26 00:05 | CPS ---
ABG results given to Dr. Pop. No new orders received at this time.
[2019-03-26 00:06] LABS: Base Excess 5 mmol/L (-2 to +2); Bicarbonate 29.6 mmol/L (22-26); Blood Gas Specimen Type ART; O2 Delivery Device Nasal Can; PO2 66 mmHG (75-100); SITE R Radial; SO2 93 % (95-99); Time Given 2350; Total Carbon Dioxide 31 mmol/L; pCO2 47.4 mmHg (35-45)
[2019-03-26 00:08] LABS: Anion Gap 3 (5-15); BUN 46 mg/dL (7-18); BUN/Creat Ratio 18.7 RATIO (10-20); Calcium,Total 10.2 mg/dL (8.5-10.1); Chloride 108 mmol/L (98-107); Creatinine, Serum 2.46 mg/dL (0.55-1.02); EST Glomerular Filtration Rate 21 mL/min (>60); Est Glom Filt Rate - Afr Amer 25 mL/min (>60); Estimated Creatinine Clearance 20.79 ml/min; Glucose 121 mg/dL (74-106); Potassium 4.1 mmol/L (3.5-5.1); Sodium Level 143 mmol/L (136-145)
[2019-03-26 00:29] LABS: BNP,B-Type NATRIURETIC PEPTIDE 56.6 pg/mL (0-100)
--- NOTE | 2019-03-26 01:49 | ED.VISSUMM ---
- ER Visit Summary Date of Service: 03/26/19 Chief Complaint: Hypoxia History of Present Illness: The patient is a 64 F who presents with hypoxia. She was sent down from TCU. She had a recent hospitalization for sepsis secondary to metapneumovirus. She also had a questionable UTI versus colonization. Per report she is previously been on room air but they have intimately had her on oxygen over the last couple of weeks. She had increased oxygen requirements today. They are concerned that she may be fluid overloaded. History is limited due to patient's altered mental status. Physical Examination: Afebrile heart rate 103 respiratory rate 14 pulse ox 92% on 4 L Moist mucous membranes Heart regular tachycardia Tachypneic with transmitted upper airway noise I do not appreciate rales rhonchi or wheezing although auscultation is somewhat limited as she is moaning and due to body habitus Abdomen is soft nontender She follows commands but is nonverbal she has right upper extremity weakness which is chronic Test Results: EKG shows sinus tachycardia at 103. Chest x-ray shows low lung volumes left haziness atelectasis versus infiltrate versus overlying soft tissue. Labs notable for hemoglobin 10.9, BUN of 46, creatinine of 2.46. BNP is normal. Troponin is normal. CT of the chest shows markedly elevated right hemidiaphragm as well as platelike atelectatic changes and small right-sided effusion. CT the abdomen and pelvis shows possible constipation as well as findings concerning for possible SMA syndrome. Emergency Department Course and Treatment: Work-up was pursued as above. When x-ray was obtained I noted the severe elevation of the hemidiaphragm and previous x-ray showed questionable bowel dilatation. Therefore I was concerned that her hypoxia may be due to abdominal process limiting her respiratory capacity. CTs were obtained to further evaluate this. Family arrived and was able to get more information. Apparently she is usually much more alert and he notes a change in her mental status since they stopped IV fluids and began diuresing her. He has been following her labs and notes that the BUN and creatinine has been slowly increasing. He states that her mental status is very sensitive to changes in her BUN and creatinine and describes previous encephalopathy with acute kidney injury. I suspect this is the cause of her current presentation. She will be treated with IV fluids. Patient discussed with hospitalist for admission. Treatment Plan: [] Disposition: Admit Impression: Acute kidney injury Metabolic encephalopathy This note was generated with [employer] dictation software. It may contain incorrect words, spelling, and punctuation that were not noted in review of the chart prior to signing ED Disposition - Plan for ED Patient: Referrals: Alexandria Carranza MD [Primary Care Provider] -
--- NOTE | 2019-03-26 01:50 | PCM.HP.STD ---
Problem List (1) Acute metabolic encephalopathy Status: Acute History of Present Illness Date of Admission: 03/26/19 Chief Complaint: hypoxia and altered mental status. The patient is a 64 year old F with a significant history of multiple sclerosis; urosepsis; neurogenic bladder; chronic suprapubic catheter who was transferred from a transitional care unit ([facility]) because of hypoxia and altered mental status. Patient oxygen saturation at the TCU was in the 80s. History was taken from patient's as patient is obtunded and not providing history. Patient was originally receiving IV fluids at the transitional care unit. However because she was making some noises from her upper airways it was misinterpreted that patient may be fluid overloaded. Subsequently patient received Lasix which her thinks made her dry and precipitated altered mental status. Of note patient was recently treated for sepsis secondary to human metapneumovirus and UTI/colonization. She received Levaquin at that time. Her requested that her urinalysis be checked to see whether UTI has re-occurred. Past Medical History Past Medical History (Chronic Problems): Chronic Problems Neurogenic bladder (Chronic) MRSA colonization (Chronic) Bilateral hydronephrosis (Chronic) Iron deficiency anemia (Chronic) Hypomagnesemia (Chronic) Dehydration (Chronic) Constipation (Chronic) Hydronephrosis (Chronic) Bilateral. Complicated urinary tract infection (Chronic) Chronic suprapubic catheter. Vitamin D deficiency (Chronic) Muscle spasm (Chronic) OAB (overactive bladder) (Chronic) Allergic rhinitis (Chronic) Insomnia (Chronic) Hyperlipidemia (Chronic) CKD (chronic kidney disease) stage 4, GFR 15-29 ml/min (Chronic) Transient ischemic attack (Chronic) Multiple sclerosis (Chronic) Right hemiparesis (Chronic) Migraine headache (Chronic) Allergies ciprofloxacin [From Cipro] Adverse Reaction (Verified 03/25/19 23:18) hypotension interacts w/ zanaflex and baclofen doxycycline Adverse Reaction (Verified 03/25/19 23:18) hypotension interacts w/ zanaflex and baclofen levofloxacin [From Levaquin] Adverse Reaction (Verified 03/25/19 23:18) hypotension interacts w/ zanaflex and baclofen morphine Adverse Reaction (Verified 03/25/19 23:18) hallucinations piperacillin [From Zosyn] Adverse Reaction (Verified 03/25/19 23:18) hypotension interacts w/ zanaflex and baclofen sulfamethoxazole [From Bactrim] Adverse Reaction (Verified 03/25/19 23:18) hypotension interacts w/ zanaflex and baclofen tazobactam [From Zosyn] Adverse Reaction (Verified 03/25/19 23:18) hypotension interacts w/ zanaflex and baclofen trimethoprim [From Bactrim] Adverse Reaction (Verified 03/25/19 23:18) hypotension interacts w/ zanaflex and baclofen vancomycin Adverse Reaction (Verified 03/25/19 23:18) developed toxic levels Home Medications: Ambulatory Orders Medication Instructions Recorded Aspirin E.C. [Ecotrin] 81 mg PO QHS 12/04/16 Atorvastatin Calcium [Lipitor] 40 mg PO QHS 09/05/17 Iron Polysaccharide Complex 150 mg PO DAILYCM 09/05/17 [Ferrex 150] Magnesium Oxide [Mag-Ox 400] 400 mg PO QHS 09/05/17 Amitriptyline HCl [Elavil] 75 mg PO QHS 09/19/17 Lactulose [Chronulac] 40 gm PO QHS 09/19/17 Baclofen 20 mg PO QHS 07/01/18 Baclofen [Lioresal] 10 mg PO BID 07/01/18 Bisacodyl [Dulcolax] 10 mg RECTAL DAILY PRN 07/01/18 Calcitriol [Rocaltrol] 0.25 mcg PO QHS 07/01/18 ALPRAZolam [Xanax] 0.5 mg PO QHS 02/15/19 Acetaminophen [Tylenol] 1,000 mg PO Q6H PRN PRN 02/15/19 Melatonin 10 mg PO QHS 02/15/19 Fluticasone 0.05% [Flonase Nasal 1 spray NASAL BID 02/26/19 [place]] Loratadine 5 mg PO DAILY@1800 02/26/19 Mineral Oil/Petrolatum,White 1 applic TOPICAL BID PRN PRN 02/26/19 [Eucerin] Nystatin Powder [Mycostatin Powder] 1 applic TOPICAL BID 02/26/19 Albuterol Aerosols [Ventolin 2.5 mg INHALATION Q6H PRN PRN 03/25/19 Aerosols] Guaifenesin Dm [Robitussin Dm] 10 ml PO Q4H PRN PRN 03/25/19 Lactulose [Chronulac, Cephulac] 200 gm PO BID PRN PRN 03/25/19 Menthol [Bengay Vanishing Scent] 1 applic TOPICAL TID PRN PRN 03/25/19 Menthol/Lanolin/Calamine/Znox 1 applic TOPICAL BID 03/25/19 [Calmoseptine Ointment] Polyethylene Glycol 3350 [Miralax] 17 gm PO QHS 03/25/19 Surgical History: adenoidectomy, tonsillectomy, - - Right shoulder surgery, ORIF right wrist, suprapubic catheter placement. Psychiatric History: Anxiety PRESS CUTTER History: No pertinent PRESS CUTTER history Lives: - - Came from transitional care unit of [facility] Smoking Status: Never smoker Alcohol: Rare - *Family History Maternal History Items: - - Osteoporosis Paternal History Items: Heart Disease, - - HLD Review of Systems Unable to obtain accurate/complete ROS d/t: Patient is obtunded. History that could be obtained from spouse is in hpi. VTE Information - Inpt Only VTE Present on Admission: No VTE Mechan Device Prophylaxis: None VTE Pharm Prophylaxis ordered?: Yes Patient Problems: Active and Suspected Problems Sepsis (Acute) Infection due to human metapneumovirus (hMPV) (Acute) Acute metabolic encephalopathy (Acute) - Physical Exam General: - - Obtunded HEENT: Atraumatic, Normocephalic Neck: Supple, Trachea Midline Lungs: Diminished - On the right, - - Morning obscured lung sounds. Cardiovascular: Regular rate Abdomen: Bowel Sounds Present, Non-Distended Extremities: No clubbing, No cyanosis, No edema Skin: No rashes Musculoskeletal: No Muscle Wasting Neurological: - - Obtunded Psych/Mental Status: - - Obtunded Vital Signs Temp Pulse Resp BP Pulse Ox 97.9 F 95 15 108/73 95 03/25/19 23:14 03/26/19 01:12 03/26/19 01:12 03/26/19 01:12 03/26/19 01:12 Oxygen Flow Rate (L/min) 4 Oxygen Delivery Method Nasal Cannula Weight: 85.729 kg Body Mass Index (BMI) 31.4 Finger Stick Blood Glucose 67 Laboratory Tests Past 24 Hrs 03/25/19 03/25/19 03/25/19 23:42 23:42 23:42 WBC 8.7 RBC 3.71 L Hgb 10.9 L Hct 35.1 L MCV 94.6 MCH 29.4 MCHC 31.1 L RDW 16.9 H RDW Differential 56.7 H Plt Count 172 MPV 9.8 Immature Gran % (Auto) 0.200 Neut % (Auto) 51.7 Lymph % (Auto) 30.2 [place] % (Auto) 10.5 H Eos % (Auto) 7.1 H Baso % (Auto) 0.3 Absolute Neuts (auto) 4.5 Absolute Lymphs (auto) 2.62 Total Counted Not Reportable Specimen Type Sample Site pH Bicarbonate Actual POC Total CO2 Base Excess O2 Saturation ABG pCO2 ABG pO2 O2 Delivery Device Liter Flow Blood Gas Notified Whom Blood Gas Notified Time Sodium 143 Potassium 4.1 Chloride 108 H Carbon Dioxide 32.0 Anion Gap 3 L BUN 46 H Creatinine 2.46 H Estim Creat Clear Calc 20.79 Est GFR (MDRD) Af Amer 25 L Est GFR (MDRD) Non-Af 21 L BUN/Creatinine Ratio 18.7 Glucose 121 H Calcium 10.2 H Troponin I < 0.015 B-Natriuretic Peptide 56.6 03/25/19 23:58 WBC RBC Hgb Hct MCV MCH MCHC RDW RDW Differential Plt Count MPV Immature Gran % (Auto) Neut % (Auto) Lymph % (Auto) [place] % (Auto) Eos % (Auto) Baso % (Auto) Absolute Neuts (auto) Absolute Lymphs (auto) Total Counted Specimen Type ART Sample Site R Radial pH 7.40 Bicarbonate Actual 29.6 H POC Total CO2 31 Base Excess 5 H O2 Saturation 93 L ABG pCO2 47.4 H ABG pO2 66 L O2 Delivery Device Nasal Can Liter Flow 4.0 Blood Gas Notified Whom ED MD Blood Gas Notified Time 2350 Sodium Potassium Chloride Carbon Dioxide Anion Gap BUN Creatinine Estim Creat Clear Calc Est GFR (MDRD) Af Amer Est GFR (MDRD) Non-Af BUN/Creatinine Ratio Glucose Calcium Troponin I B-Natriuretic Peptide Assessment/Plan All Active Problems Fever (Acute) Sepsis (Acute) Infection due to human metapneumovirus (hMPV) (Acute) Acute metabolic encephalopathy (Acute) Vomiting (Acute) Declining functional status (Acute) The patient is a 64 year old F with a significant history of multiple sclerosis; urosepsis; neurogenic bladder; chronic suprapubic catheter who was transferred from a transitional care unit ([facility]) because of hypoxia and altered mental status and found to have severely elevated creatinine above her baseline consistent with probable acute encephalopathy secondary to dehydration from overdiuresis. Acute metabolic encephalopathy BNP at the ED was not elevated and chest CT did not show any pulmonary edema. 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 She thinks that patient baseline creatinine is about 1.8. Review of records shows that patient baseline creatinine is indeed about 1.8. Her creatinine on presentation was 2.46. Her BUN was 46. Her reports that patient is sensitive to changes in her creatinine. At the emergency department normal saline fluid bolus bolus were ordered. Because of marked increase in the chloride will order lactated Ringer's. We will keep patient n.p.o. because she is obtunded. Hold all home meds. Trend BMP. Avoid nephrotoxic's. We will get UA and urine culture. Per patient last time that suprapubic catheter was changed was March [id number]. Atelectasis Chest CT was remarkable for atelectasis and a small right-sided effusion. Ct abdomen was remarkable for elevation of right hemidiaphragm. Patient will be unable to use incentives parameter she since she is obtunded. We will treat acute encephalopathy with IV fluids to see whether her mentation will improve and subsequently be able to use incentive spirometer. DVT prophylaxis Subcutaneous Lovenox. Code Visit Inpatient E&M: 42847 Init Hosp L3
[2019-03-26] MEDS: 0.9% Normal Saline 1,000 ML 999 ML IV (03:32)
[2019-03-26] MEDS: Lactated Ringers 1,000 ML 100 ML IV (04:34)
[2019-03-26 05:29] LABS: Mucous, Urine 0 SEEN /hpf (<or=2+); Squamous Epithelial Cells - UA 0 SEEN /hpf (5-10)
[2019-03-26 05:32] LABS: Color, Urine Yellow (Yellow); Glucose, Dipstick Normal (Normal); Ketone-Dipstick Negative (Negative); Leukocyte Esterase-Dipstick 500 /ul (Negative); Nitrite-Dipstick Positive (Negative); Occult Blood-Urine 250 /ul (Negative); Protein-Dipstick 30 mg/dl (Negative); Urine Bilirubin Dipstick Negative (Negative); Urine Clarity Turbid (Clear); Urine Urobilinogen Normal (Normal)
[2019-03-26 05:53] LABS: Bacteria 3+ /hpf (None Seen); Red Blood Cells-Urine 10-25 SEEN /hpf (0-5); White Blood Cells 25-50 SEEN /hpf (0-5)
[2019-03-26 06:37] LABS: Absolute Lymphocyte Count 1.76 X10^3/ul (0.83-4.51); Absolute Neutrophil Count 7.8 X10^3/uL (2.0-7.7); Basophil# 0.03 X10^3/uL; Basophil% 0.3 % (0-1); Eosinophils% 4.6 % (0-5); Hematocrit 30.5 % (37-47); Hemoglobin 9.2 g/dl (12.0-15.0); Lymphocyte # 1.76 X10^3/ul (4.0); Lymphocyte % 16.2 % (19-41); Mean Corp Hgb Conc 30.2 g/gl (32-36); Mean Corpuscular Volume 96.2 fL (81-99); Mean Platelet Vol. 10.4 fl (6.2-12.0); Monocyte# 0.81 X10^3/uL; Monocyte% 7.5 % (0-10); Neutrophil # 7.75 X10^3/uL (2.7-7.7); Neutrophil % 71.2 % (47-70); Platelet Count 146 K/mm3 (150-450); RBC Distribution Width CV 16.8 % (11.6-14.6); Red Blood Count 3.17 M/mm3 (4.2-5.4); White Blood Count 10.9 K/mm3 (4.4-11.0)
[2019-03-26 06:38] LABS: POSITIVE COUNT NO; POSITIVE DIFFERENTIAL NO; POSITIVE MORPHOLOGY NO
[2019-03-26] MEDS: Heparin Injection (Vial) 5,000 UNIT/ML VIAL 5000 UNIT SC (06:45)
--- NOTE | 2019-03-26 10:52 | PCM.HOSP.N ---
Hospitalist Note Seen and examined. The patient hardly wakes up and opens up eyes but otherwise drowsy and lethargic and sleeping and minimally responsive. Intake and output [place]ing [place]. [place] [address] mL negative fluid balance since 03/01/19. Mainly about 3500 mL negative on 03/21 and 1400 mL on 03/25. Discussed with the patient's , Mr. Nakul pena and explained me about the Lasix and negative fluid balance given in the tissue. Patient looks dry, decreased skin turgor. The patient has suprapubic catheter. Urine is clear. 550 mL urine output today. On exam Lungs clear, no crepitation/rhonchi. Heart S1-S2 regular. Abdomen, soft, NT/ND, bowel sounds present/sluggish. Labs reviewed. Her baseline creatinine fluctuates from 1.65-1.8. Currently BUN/creatinine 43/2.36. WBC 25-50 cells, RBC 10-25, urine bacteria 3+, nitrite positive. The patient has a history of colonization of urine secondary to suprapubic catheter. 03/09 Lasix she grew MRSA, Morganella morganii, enterococcus faecalis She does not have signs or symptoms of sepsis including fever, tachycardia, tachypnea. Urine culture is pending. Laboratory Results 03/25/19 23:42: WBC 8.7, RBC 3.71 L, Hgb 10.9 L, Hct 35.1 L, MCV 94.6, MCH 29.4, MCHC 31.1 L, RDW 16.9 H, RDW Differential 56.7 H, Plt Count 172, MPV 9.8, Immature Gran % (Auto) 0.200, Neut % (Auto) 51.7, Lymph % (Auto) 30.2, [place] % (Auto) 10.5 H, Eos % (Auto) 7.1 H, Baso % (Auto) 0.3, Absolute Neuts (auto) 4.5, Absolute Lymphs (auto) 2.62, Total Counted Not Reportable 03/25/19 23:42: Sodium 143, Potassium 4.1, Chloride 108 H, Carbon Dioxide 32.0, Anion Gap 3 L, BUN 46 H, Creatinine 2.46 H, Estim Creat Clear Calc 20.79, Est GFR (MDRD) Af Amer 25 L, Est GFR (MDRD) Non-Af 21 L, BUN/Creatinine Ratio 18.7, Glucose 121 H, Calcium 10.2 H, Troponin I < 0.015 03/25/19 23:42: B-Natriuretic Peptide 56.6 03/25/19 23:58: Specimen Type ART, Sample Site R Radial, pH 7.40, Bicarbonate Actual 29.6 H, POC Total CO2 31, Base Excess 5 H, O2 Saturation 93 L, ABG pCO2 47.4 H, ABG pO2 66 L, O2 Delivery Device Nasal Can, Liter Flow 4.0, Blood Gas Notified Whom ED , Blood Gas Notified Time 234903/26/19 04:35: Urine Color Yellow, Urine Clarity Turbid, Urine pH 7.0, Ur Specific [place] 1.010, Urine Protein 30 H, Urine Glucose (UA) Normal, Urine Ketones Negative, Urine Occult Blood 250 H, Urine Nitrite Positive H, Urine Bilirubin Negative, Urine Urobilinogen Normal, Ur Leukocyte Esterase 500 H, Urine RBC 10-25 SEEN, Urine WBC 25-50 SEEN, Ur Squamous Epith Cells 0 SEEN, Urine Bacteria 3+, Urine Mucus 0 SEEN 03/26/19 06:19: WBC 10.9, RBC 3.17 L, Hgb 9.2 L, Hct 30.5 L, MCV 96.2, MCH 29.0, MCHC 30.2 L, RDW 16.8 H, RDW Differential 57.0 H, Plt Count 146 L, MPV 10.4, Immature Gran % (Auto) 0.200, Neut % (Auto) 71.2 H, Lymph % (Auto) 16.2 L, [place] % (Auto) 7.5, Eos % (Auto) 4.6, Baso % (Auto) 0.3, Absolute Neuts (auto) 7.8 H, Absolute Lymphs (auto) 1.76, Total Counted Not Reportable
[2019-03-26] MEDS: Menthol/Lanolin/Calamine/Znox 113 GM Tube 1 APPLIC TOPICAL ×2 (14:06→22:25)
[2019-03-26] MEDS: Lactated Ringers 1,000 ML 125 ML IV ×2 (14:07→22:23)
[2019-03-26] MEDS: Fluticasone 0.05% 1 SPRAY NASAL.SRY NASAL (22:24)
[2019-03-27] VITALS (10 sets, daily range): BP systolic 140–164; BP diastolic 82–110; PULSE 81–94; RESP 18; TEMP 36.8–37.5; O2SAT 93–100
[2019-03-27] MEDS: Menthol/Lanolin/Calamine/Znox 113 GM Tube 1 APPLIC TOPICAL ×2 (04:39→21:48)
--- NOTE | 2019-03-27 07:48 | PN_ITS ---
Patient Problems: Active and Suspected Problems Acute metabolic encephalopathy (Acute) Subjective: Patient was seen and examined. No acute events overnight. at the bedside. He gave me the whole history of why and how they ended up on admission. Patient is awake, alert and oriented. She is able to mouth words out. Soft spoken. Speech therapy working with patient. Objective: Physical Exam General: Alert and oriented x3, not pale, not jaundiced, looks well, well- hydrated HEENT: Atraumatic, Normocephalic Neck: Supple, Trachea Midline Lungs: Diminished breath sounds in the lungs, crackles heard at the lung bases Cardiovascular: HS I +II, regular, no murmurs Abdomen: Bowel Sounds Present, Non-Distended, nontender, no palpable organs, suprapubic catheter in situ, no erythema on the point of insertion, no discharge Extremities: No edema Skin: No rashes Neurological: Alert oriented x3, grossly intact Psych/Mental Status: normal affect Vitals/I&O's: Vital Signs Temp Pulse Resp BP Pulse Ox 99.5 F H 94 18 141/82 H 94 03/27/19 02:04 03/27/19 02:04 03/27/19 02:04 03/27/19 02:04 03/27/19 02:04 Oxygen Flow Rate (L/min) 1.5 Oxygen Delivery Method Nasal Cannula Weight: 73.9 kg Body Mass Index (BMI) 27.1 Finger Stick Blood Glucose 67 Intake and Output for Last 24 Hours 03/25/19 03/26/19 03/27/19 23:59 23:59 23:59 Intake Total 2486 / 2486 1523 / 1523 Output Total 1900 / 1900 2600 / 2600 Balance 586 / 586 -1077 / -1077 Current Medications Calamine/Phenol (Calmoseptine Ointment) 1 applic TOPICAL BID MARY; Protocol Last Admin: 03/27/19 04:39 Dose: 1 applicatio Documented by: Dextrose ([id number] Syringe) 0 gm IV X1 PRN; Protocol PRN Reason: Hypoglycemia Fluticasone Propionate (Flonase Nasal [place]) 1 spray NASAL BID MARY Last Admin: 03/26/19 22:24 Dose: 1 spray Documented by: Glucagon () 1 mg IM .X1 PRN PRN Reason: Hypoglycemia Heparin Sodium (Beef Lung) () 50 units IV UD PRN PRN Reason: HEPARIN FLUSH Menthol (Bengay Vanishing Scent) 1 applic TOPICAL TID PRN PRN PRN Reason: KNEE PAIN Multi-Ingredient Cream (Eucerin) 1 applic TOPICAL BID PRN PRN; Protocol PRN Reason: DRY SKIN Ondansetron HCl (Zofran) 4 mg IV Q8H PRN PRN PRN Reason: NAUSEA/VOMITING Sodium Chloride () 10 ml IV UD PRN PRN Reason: VAD FLUSH Medical Necessity - Tobacco Use Smoking Status: Never smoker Assessment/Plan All Active Problems Fever (Acute) Sepsis (Acute) Infection due to human metapneumovirus (hMPV) (Acute) Acute metabolic encephalopathy (Acute) Vomiting (Acute) Declining functional status (Acute) 64 year old F with significant history of multiple sclerosis, neurogenic bladder with chronic suprapubic catheter admitted on 03/26/19 with hypoxia and altered mental status and found to have JYAY on CKD secondary to overdiuresis 1. Acute metabolic encephalopathy, resolved, likely secondary to acute kidney injury/dehydration, Patient is back to her baseline. Urine cultures are pending, doubt UTI as a contributor to her acute metabolic encephalopathy 2. JAYY on CKD stage III, baseline creatinine of 1.8?1.9, creatinine improved from 2.46-2.23, will continue on IV fluids 3. Hypoxia likely secondary to atelectasis, patient has been stable on room air. Chest CT as well as abdomen and pelvis CT showed atelectasis Would add incentive spirometer and chest physiotherapy 4. Hypernatremia secondary to dehydration, will start patient on diet( speech ok for patient to have a diet) and continue on D51/2NS Rest of her chronic medical problems including multiple sclerosis, neurogenic bladder, neurogenic bladder remain stable in this admission. 5. DVT prophylaxis with heparin SC Code Visit Inpatient E&M: 76981 Subs Hosp L2
[2019-03-27] MEDS: 0.9% NaCl VAD Flush 10 ML IV ×4 (08:13→10:39)
[2019-03-27 08:46] LABS: Absolute Lymphocyte Count 1.98 X10^3/ul (0.83-4.51); Absolute Neutrophil Count 6.6 X10^3/uL (2.0-7.7); Basophil# 0.04 X10^3/uL; Basophil% 0.4 % (0-1); Eosinophil# 0.63 X10^3/uL; Eosinophils% 6.3 % (0-5); Hematocrit 33.4 % (37-47); Hemoglobin 10.6 g/dl (12.0-15.0); Lymphocyte # 1.98 X10^3/ul (4.0); Lymphocyte % 19.7 % (19-41); Mean Corp Hgb Conc 31.7 g/gl (32-36); Mean Corpuscular Hgb 29.6 pg (27.0-32.0); Mean Corpuscular Volume 93.3 fL (81-99); Mean Platelet Vol. 10.1 fl (6.2-12.0); Monocyte# 0.78 X10^3/uL; Monocyte% 7.8 % (0-10); Neutrophil # 6.59 X10^3/uL (2.7-7.7); Neutrophil % 65.7 % (47-70); Platelet Count 159 K/mm3 (150-450); RBC Distribution Width CV 16.1 % (11.6-14.6); RBC Distribution Width SD 55.2 fl (35.1-43.9); Red Blood Count 3.58 M/mm3 (4.2-5.4)
[2019-03-27 08:47] LABS: POSITIVE COUNT NO; POSITIVE DIFFERENTIAL NO; POSITIVE MORPHOLOGY NO
[2019-03-27 09:04] LABS: Anion Gap 6 (5-15); BUN 38 mg/dL (7-18); Calcium,Total 9.6 mg/dL (8.5-10.1); Chloride 109 mmol/L (98-107); Creatinine, Serum 2.23 mg/dL (0.55-1.02); EST Glomerular Filtration Rate 24 mL/min (>60); Est Glom Filt Rate - Afr Amer 28 mL/min (>60); Estimated Creatinine Clearance 22.93 ml/min; Glucose 71 mg/dL (74-106); Potassium 3.8 mmol/L (3.5-5.1); Sodium Level 146 mmol/L (136-145)
--- NOTE | 2019-03-27 09:19 | CASEMGMT ---
Social Work Note Pt is from TCU. SW reviewed notes, pt's continued stay was denied while pt was on TCU and pt's was going to pay privately for TCU. DICK spoke with Lynsey with TCU. Lynsey confirms that pt was denied continued stay on TCU and that LOC can be resubmitted through [facility]. DICK asked Lynsey if she would be able to accept pt back today if pt's is willing to pay privately while LOC is being submitted, Lynsey states she would be able to accept pt back to TCU today if pt's is willing to pay privately. Physician updated. Plan: Likely back to TCU Kelsie Armendariz WINDOWS SERVER SPECIALIST, MECHANIC INDUSTRIAL TRUCK
[2019-03-27] MEDS: Fluticasone 0.05% 1 SPRAY NASAL.SRY NASAL ×2 (10:38→21:49)
[2019-03-27] MEDS: Dext 5%-0.45% NS 1,000 ML 100 ML IV ×2 (10:38→21:46)
--- NOTE | 2019-03-27 10:52 | CASEMGMT ---
Addendum entered by Kelsie Armendariz 03/27/19 13:23: DICK faxed referral to [facility]. DICK placed a call to [facility], left message regarding referral. DICK waiting for call back in regards to LOC. Original Note: Social Work Note DICK met with pt and pt's Scott. SW familiar with pt and Scott from previous admissions. DICK introduced self and role at [facility]. Pt is alert and orientated, Scott does most of talking and answering questions. Scott confirms that pt came from TCU and the plan is for pt to return to TCU. Scott states that pt's insurance denied pt continued stay at TC but is wanting to submit for approval again while pt is at [facility]. DICK explained pre-cert and that pt could get denied again. Scott states that if pt is denied TCU again then he will pay privately for TCU. Scott spoke to this worker regarding his concerns with the RN on TCU that took care of pt and asked to speak with Lynsey. Scott states that he knows Gisela is on vacation this week and that is why he would like to speak with Lynsey in regards to his concerns. DICK informed Scott that this worker will have to call Lynsey to see if she is able to speak with him today. Scott states understanding. DICK spent much time with Scott, providing active listening and support to Scott. Scott thanked this worker. DICK placed a call to Lynsey with [facility] and informed her that this worker will be submitting for LOC today once PT/OT works with pt and if pt is denied pt will be coming to TCU private pay. DICK also informed Lynsey that pt's Scott is requesting to speak to her. Lynsey states she is available around 1:00pm and asks that Scott comes to her office to speak with her. DICK informed Lynsey that this worker will update Scott of that. Lynsey states understanding. DICK informed Scott that Lynsey is able to meet with him at 1:00pm and is requesting Scott to meet at Lynsey's office. Scott states he knows where Lynsey's office is at. SW to submit for LOC through [facility] once PT/OT evaluations are completed. Plan: TCU pending pre-cert. If pt is denied pre-cert, then pt will go to TCU private pay. Kelsie Armendariz COMPUTERIZED MACHINE FABRIC CUTTER, BOOK REPAIRER
--- NOTE | 2019-03-27 14:17 | NURSING ---
MANUAL BP 140/[address] MADDOX MADE AWARE. NO NEW ORDERS @ THIS TIME - WILL MONITOR.
--- NOTE | 2019-03-27 15:04 | CASEMGMT ---
Social Work Note SW received message from Fadumo Willams at [facility] stating she received referral and she will be reviewing referral and will be giving this worker a call back once she reviews referral. Fadumo Willams provided direct number [phone]. SW to continue to follow. Plan: TCU pending LOC and pre-cert Kelsie Armendariz UX DEVELOPER, MARKETING TRAFFIC MANAGER
--- NOTE | 2019-03-27 15:19 | CHAPLAIN ---
Type of Pastoral Visit ___ Initial Visit ___ Follow-up Visit ___ On-call Visit ___ General Patient Visit ___ Spiritual Assessment ___ Family Conference ___ Bereavement ___ Rapid Response ___ Code Blue _x__ Other (describe below) Pastoral Care Referral From ___ Patient _x__ Family _x__ Nurse ___ Physician ___ Psychiatric Aides Teacher ___ Leather Cleaner ___ Other (describe below) Sacrament/Intervention _x__ Active listening ___ Anointing ___ Latter Day ___ Bereavement ___ Communion _x__ Justine exploration ___ _x__ Life review _x__ Prayer ___ Reconciliation ___ Sacrament of Sick _x__ Supportive presence ___ Wedding _x__ Other (describe below) Pastoral Comments brief visit to patient; spouse requested personal session with himself; spouse seeks spiritual and emotional care for self; long conversation and support given; spouse would welcome follow up
--- NOTE | 2019-03-27 15:54 | CASEMGMT ---
Addendum entered by Kelsie Armendariz 03/27/19 16:56: SW met with pt and pt's Scott. SW updated pt and Scott on insurance denial to SNF and that insurance mentioned that pt was denied due to pt being at her baseline and pt refusing transfers today. Scott states that pt didn't refuse and that pt was too weak to do transfers and PT/OT even agreed that pt was too weak. SW informed Scott that PT/OT had charted on their notes that pt had refused PT/OT. Scott states that is not accurate. DICK informed Scott that this worker can call PT/OT, see if therapist are still at [facility] and ask if they can come speak with him. Scott agreeable to this. DICK placed a call to PT/OT, spoke with Alley. Alley states that Yessy and Maria Guadalupe did evaluations today and they are gone for the day. Alley states that she is only therapist still at [facility] and asked if she could evaluate pt tomorrow morning and update the notes. DICK informed Alley that this worker will ask physician. SW updated physician on above information. Physician is agreeable to keeping pt tonight. DICK placed a call to Alley with PT/OT and updated her that pt it staying today and asked that pt be seen first thing tomorrow morning so updated PT/OT notes can be sent to insurance. Alley states understanding. SW updated Scott that physician is keeping pt tonight and that PT/OT will work with pt first thing tomorrow morning and that this worker will send updated PT/OT to [employer] tomorrow. DICK states that pt still may get denied though. Scott states understanding. DICK placed a call to Lynsey with TCU, updated her on this information and that LOC will be resubmitted tomorrow. Plan: PT/OT to work with pt tomorrow morning to update PT/OT notes. Once updated notes are available, this worker will fax updated notes to [facility] to try and get LOC approval for TCU. Plan: TCU pending LOC and pre-cert Kelsie Armendariz RUBBER TRIMMER, HIGH DENSITY TALC COATER OPERATOR Original Note: Social Work Note SW received call from Fadumo Willams at [facility] stating she doesn't agree with LOC and doesn't agree for SNF for pt. Fadumo Willams states pt is at baseline and denied transfers today with PT/OT. Natalie states pt is non ambulatory and transfers is probably what pt would need therapy for and pt denied transfers today. SW asked Natalie about physician doing peer to peer and Natalie states the Peer to Peer would get denied as pt is at baseline. Natalie provided direct number [phone]. Physician and charge nurse updated. Plan: PT to discharge to TCU private pay as SNF was denied Kelsie Armendariz RUBBER TRIMMER, HIGH DENSITY TALC COATER OPERATOR
[2019-03-27] MEDS: Heparin Injection (Vial) 5,000 UNIT/ML VIAL 5000 UNIT SC (21:46)
[2019-03-27] MEDS: Nystatin Powder 15gm Bottle 1 APPLIC TOPICAL (21:48)
[2019-03-28] VITALS (10 sets, daily range): BP systolic 147–161; BP diastolic 86–115; PULSE 86–93; RESP 18; TEMP 36.4–36.7; O2SAT 94–96
[2019-03-28] MEDS: Heparin Injection (Vial) 5,000 UNIT/ML VIAL 5000 UNIT SC ×3 (06:06→22:37)
[2019-03-28 06:58] LABS: Anion Gap 7 (5-15); BUN 38 mg/dL (7-18); BUN/Creat Ratio 17.7 RATIO (10-20); Calcium,Total 9.7 mg/dL (8.5-10.1); Chloride 103 mmol/L (98-107); Creatinine, Serum 2.15 mg/dL (0.55-1.02); EST Glomerular Filtration Rate 25 mL/min (>60); Est Glom Filt Rate - Afr Amer 30 mL/min (>60); Estimated Creatinine Clearance 23.79 ml/min; Glucose 117 mg/dL (74-106); Potassium 3.5 mmol/L (3.5-5.1); Sodium Level 136 mmol/L (136-145)
[2019-03-28] MEDS: Nystatin Powder 15gm Bottle 1 APPLIC TOPICAL ×2 (09:52→22:37)
[2019-03-28] MEDS: Fluticasone 0.05% 1 SPRAY NASAL.SRY NASAL ×2 (09:52→22:37)
[2019-03-28] MEDS: Menthol/Lanolin/Calamine/Znox 113 GM Tube 1 APPLIC TOPICAL ×2 (09:53→22:36)
--- NOTE | 2019-03-28 09:54 | NURSING ---
Upon entering room was noted to be giving pt thin liquids. Notified that per ST recommendation pt is to have MEch soft, Keys thickened Liquids, Keys via Spoon. states that this is not Lindas baseline its normal for her to cough when drinking and that she is not aspirating. also stated MD was ok with regular water. Spoke with doctor Melanie and she stated she did not say she could have thin liquids and pt should follow ST recommendation. MD in with this RN to talk to , reinforced ST assessment, became up set raised voice, MD asked that ST see pt again today to speech to what they think is safe for pt. also raising voice with MD stating he does not want pt to go to TCU because he feels this is not Lindas baseline. Pt A&ox3 and able to follow commands, states yes he can answer questions but he feels she is doing things and does not have an explanation as to why and normally she would for him. states she can't use a spoon or drink from a cup he had to assist. Upon entering room this RN noted pt to be feeding her self and when asked to grab cup pt was able to grab cup appropriately but did have a little difficulty getting all the way to mouth on own.
[2019-03-28] MEDS: 0.45% Normal Saline 1,000 ML 100 ML IV ×2 (10:01→19:34)
--- NOTE | 2019-03-28 10:55 | CASEMGMT ---
Social Work Note DICK faxed updated PT/OT/ST to Fadumo Willams at [facility]. DICK placed a call to Fadumo Willams at [facility] and updated her that updated PT/OT/ST has been faxed and asked her to review referral again and reconsider pt going to SNF. DICK updated Fadumo Willams that per pt's pt didn't refuse PT/OT yesterday pt was too weak to complete transfers and pointed out that PT/OT stated pt declined therapy and not refused therapy. Fadumo Willams states understanding, states that she will review referral and give this worker a call back. Plan: TCU pending LOC Kelsie Armendariz NEUROLOGY SPECIALIST, CORPORATE LEGAL INTERN
--- NOTE | 2019-03-28 11:30 | CASEMGMT ---
Social Work Note DICK and RN NOA Kruse in to speak with pt's Scott as he is requesting to speak to this worker. Scott voiced his concerns with pt not being medically ready for discharge. Scott continued to state his concerns regarding insurance and getting pt back to TCU. DICK updated Scott that this worker submitted the updated PT/OT/ST notes to [facility] this morning and is waiting for a response back. Scott again states that he would be willing to pay private pay for TCU if pt is denied by insurance. DICK utilized active listening skills to Scott and offered support to Scott. Scott asked this worker when Risk Management and Patient advocate will be speaking with him. DICK informed Scott that this worker is not sure when they will be meeting with him but can call and see if they are able to designate a time. Scott states understanding. DICK called Air Quality Chemist Jasmeet Duenas updated her on pt's request to speak with Risk Management and Patient advocate. DICK placed a call to Lynsey with TCU, updated her on above information. Lynsey states that pt's will have to be cleared by security before TCU is able to accept pt. SW to continue to follow along. Plan: TCU pending LOC and pre-cert Kelsie Armendariz GREASER HELPER, STEREO MAP PLOTTER OPERATOR
--- NOTE | 2019-03-28 14:05 | CASEMGMT ---
Social Work Note SW received call from Lynsey with TCU stating Dr. Feng is refusing to accept pt back and Des, police liaison, also informed Lynsey that he recommended pt doesn't return to TCU either. Kelsie Armendariz EHS SPECIALIST, DEGREASER
--- NOTE | 2019-03-28 16:00 | CASEMGMT ---
Social Work Note DICK updated Jasmeet Duenas, Liudmila Hamilton Nursery Hand, and Aileen Warren that Dr. Feng is refusing to take pt back. Multiple staff members spent time with pt's Scott and updated him that pt is unable to return to TCU. DICK updated by Liudmila Hamilton that pt's is requesting IV Hydration and Azar Lift at discharge. DICK placed a call to SHARLENE Kruse and updated her on this information. SHARLENE Kruse states she will work on azar life and IV hydration tomorrow. DICK updated Liudmila Hamilton and Physician on information. Liudmila Hamilton updated Pt's Scott. Physician ok with keeping pt tonight and discharging pt tomorrow. DICK received a call from Fadumo Willams at [facility] who states pt is still at baseline and they are denying SNF level of care for pt. Plan: Home tomorrow Kelsie Armendariz SOCIAL SCIENCES CHAIR, APPLIANCE ASSEMBLER
--- NOTE | 2019-03-28 16:31 | PN_ITS ---
Patient Problems: Active and Suspected Problems Acute metabolic encephalopathy (Acute) Subjective: Patient was seen and examined in the company of the . expresses frustration at insurance denying him admission to TCU. He had 2 options - option of paying [id number] for TCU or having PT and OT reevaluating and werner bmitting for possible insurance certification. Patient ,however refused to work with PT and OT yesterday and this morning. states that patient seems to be a little confused and had trouble holding the cup this morning. Patient is alert oriented to self, place and time. She seems to be at her baseline. She was able to hold the cup in the left upper extremity and trunk with a stroke. insist on patient having thin liquids despite speech therapy recommending that patient should have nectar thick liquids. I had a long convoluted talk with him discussing the plan of care and reva mancia. He would like her to stay for couple of days. I reassured him that she was at her baseline and we were on a good path for recovery once the place of disposition was confirmed she will be discharged. Objective: Physical Exam General: Alert and oriented x3, not pale, not jaundiced, looks well, well- hydrated HEENT: Atraumatic, Normocephalic Neck: Supple, Trachea Midline Lungs: Diminished breath sounds in the lungs, few crackles heard at the lung b ases Cardiovascular: HS I +II, regular, no murmurs Abdomen: Bowel Sounds Present, Non-Distended, nontender, no palpable organs, suprapubic catheter in situ, no erythema on the point of insertion, no discharge Extremities: No edema Skin: No rashes Neurological: Alert oriented x3, weakness in the right side of the body, contractures of both lower extremities Vitals/I&O's: Vital Signs Temp Pulse Resp BP Pulse Ox 97.6 F L 87 18 153/115 H 96 03/28/19 13:32 03/28/19 13:56 03/28/19 13:32 03/28/19 13:32 03/28/19 13:32 Oxygen Flow Rate (L/min) 2 Oxygen Delivery Method Room Air Weight: 73.9 kg Body Mass Index (BMI) 27.1 Finger Stick Blood Glucose 67 Intake and Output for Last 24 Hours 03/26/19 03/27/19 03/28/19 23:59 23:59 23:59 Intake Total 2486 / 2486 3073 / 4696 3085 / 3085 Output Total 1900 / 1900 4800 / 5700 3900 / 3900 Balance 586 / 586 -1727 / -1004 -815 / -815 Microbiology Past 72 Hours 03/26/19 04:35 Urine, Clean Catch Urine Culture - Preliminary Gram positive organism Gram negative michell Laboratory Results 03/28/19 06:20: Sodium 136, Potassium 3.5, Chloride 103, Carbon Dioxide 26.0, Anion Gap 7, BUN 38 H, Creatinine 2.15 H, Estim Creat Clear Calc 23.79, Est GFR (MDRD) Af Amer 30 L, Est GFR (MDRD) Non-Af 25 L, BUN/Creatinine Ratio 17.7, Glucose 117 H, Calcium 9.7 Current Medications Calamine/Phenol (Calmoseptine Ointment) 1 applic TOPICAL BID [facility]; Protocol Last Admin: 03/28/19 09:53 Dose: 1 applicatio Documented by: Dextrose (D50w Syringe) 0 gm IV X1 PRN; Protocol PRN Reason: Hypoglycemia Fluticasone Propionate (Flonase Nasal [place]) 1 spray NASAL BID [facility] Last Admin: 03/28/19 09:52 Dose: 1 spray Documented by: Glucagon () 1 mg IM .X1 PRN PRN Reason: Hypoglycemia Heparin Sodium (Beef Lung) () 50 units IV UD PRN PRN Reason: HEPARIN FLUSH Heparin Sodium (Porcine) (Heparin Na) 5,000 unit SC Q8 [facility] Last Admin: 03/28/19 13:28 Dose: 5,000 unit Documented by: Sodium Chloride () 1,000 mls @ 100 mls/hr IV .Q10H [facility] Last Admin: 03/28/19 10:01 Dose: 100 mls/hr Documented by: Menthol (Bengay Vanishing Scent) 1 applic TOPICAL TID PRN PRN PRN Reason: KNEE PAIN Multi-Ingredient Cream (Eucerin) 1 applic TOPICAL BID PRN PRN; Protocol PRN Reason: DRY SKIN Nystatin (Mycostatin Powder) 1 applic TOPICAL BID [facility]; Protocol Last Admin: 03/28/19 09:52 Dose: 1 applicatio Documented by: Ondansetron HCl (Zofran) 4 mg IV Q8H PRN PRN PRN Reason: NAUSEA/VOMITING Sodium Chloride () 10 ml IV UD PRN PRN Reason: VAD FLUSH Last Admin: 03/27/19 10:39 Dose: 10 ml Documented by: Medical Necessity - Tobacco Use Smoking Status: Never smoker Assessment/Plan All Active Problems Fever (Acute) Sepsis (Acute) Infection due to human metapneumovirus (hMPV) (Acute) Acute metabolic encephalopathy (Acute) Vomiting (Acute) Declining functional status (Acute) 64 year old F with significant history of multiple sclerosis, neurogenic bladder with chronic suprapubic catheter admitted on 03/26/19 with hypoxia and altered mental status and found to have JAYY on CKD secondary to overdiuresis. 1. Acute metabolic encephalopathy, resolved, likely secondary to acute kidney injury/dehydration, Patient is back to her baseline. Urine cultures are pending, doubt UTI as a contributor to her acute metabolic encephalopathy 2. JAYY on CKD stage III,improving, baseline creatinine of 1.8?1.9, Cr is 2.15 today, will continue on IV fluids 3. Hypoxia likely secondary to atelectasis, resolved. Chest CT as well as abdomen and pelvis CT showed atelectasis Continue on incentive spirometer and chest physiotherapy 4. Hypernatremia secondary to dehydration, resolved, on IV fluids 1/2NS 5. Rest of her chronic medical problems including multiple sclerosis, neurogenic bladder, neurogenic bladder remain stable in this admission. 6. DVT prophylaxis with heparin SC Code Visit Inpatient E&M: 77508 Subs Hosp L2
--- NOTE | 2019-03-28 16:55 | NURSING ---
Multiple conversations with Siva (Patient's spouse) and Ching over the last 1.5 hours. Initially spoke to Siva and Ching regarding inability to be accepted into TCU around 1530. This brought forth a lot of concerns regarding Ching's eventual discharge. This nurse spoke to Kelsie () following a conversation with Dr Navarro. Informed Kelsie that Siva wanted to ensure that discharge planning for home included a boris lift as well as planned IV hydration for Ching. Dr Navarro did verify that she was willing to order IV hydration post discharge until the case was managed by home health. Siva acknowledged the plan for discharge on 03/29 and stated that he would have to work diligently but that he could get the house ready for Ching's discharge. He stated that he could arrange his own transportation.
--- NOTE | 2019-03-28 17:16 | CHAPLAIN ---
visited with patient and spouse after it came to my attention that patient has not been accepted back in TCU; gave listening ear and presence; offered prayer for patient and spouse;
[2019-03-29] VITALS (7 sets, daily range): BP systolic 154–167; BP diastolic 93–98; PULSE 89–94; RESP 18; TEMP 36.6–36.8; O2SAT 95–96
[2019-03-29] MEDS: 0.45% Normal Saline 1,000 ML 100 ML IV (05:35)
--- NOTE | 2019-03-29 09:10 | PCM.DC ---
- Discharge Diagnoses Current Active Problems: Current Active and Chronic Problems Acute metabolic encephalopathy (Acute) Reason(s) for Visit for Discharge Instructions: Altered mental status You will use the following diet at home:: Regular, Other - mechanical soft/ground food consistency, nectar thick liquid, supervision by staff/family; nectar via spoon; seated at 90 degrees. Your food should be the consistency of: Mechanical soft (ground) Your liquids should be the consistency of: [place] Thick Discharge Activity: Return to Normal Activity Weight Bearing Status: Weight bearing as tolerated Additional Instructions: Continue to follow the diet plan recommended by Speech therapy. Take note of changes to your medications. You should see Dr. Carranza within 1-2 weeks. You will be discharged with Home health. You will receive IVF which should run at 100mls/hr for the 1st 2 days and then 75mls per hour. Watch out for signs of fluid overload. Continuation of the fluids will be per Dr. Carranza. Allergies/Adverse Reactions: Allergies ciprofloxacin [From Cipro] Adverse Reaction (Verified 03/25/19 23:18) hypotension interacts w/ zanaflex and baclofen doxycycline Adverse Reaction (Verified 03/25/19 23:18) hypotension interacts w/ zanaflex and baclofen levofloxacin [From Levaquin] Adverse Reaction (Verified 03/25/19 23:18) hypotension interacts w/ zanaflex and baclofen morphine Adverse Reaction (Verified 03/25/19 23:18) hallucinations piperacillin [From Zosyn] Adverse Reaction (Verified 03/25/19 23:18) hypotension interacts w/ zanaflex and baclofen sulfamethoxazole [From Bactrim] Adverse Reaction (Verified 03/25/19 23:18) hypotension interacts w/ zanaflex and baclofen tazobactam [From Zosyn] Adverse Reaction (Verified 03/25/19 23:18) hypotension interacts w/ zanaflex and baclofen trimethoprim [From Bactrim] Adverse Reaction (Verified 03/25/19 23:18) hypotension interacts w/ zanaflex and baclofen vancomycin Adverse Reaction (Verified 03/25/19 23:18) developed toxic levels Medications to take at Discharge Aspirin E.C. [Ecotrin] 81 mg PO QHS 12/04/16 Atorvastatin Calcium [Lipitor] 40 mg PO QHS 09/05/17 Iron Polysaccharide Complex [Ferrex 150] 150 mg PO DAILYCM 09/05/17 Bisacodyl [Dulcolax] 10 mg RECTAL DAILY PRN 07/01/18 Calcitriol [Rocaltrol] 0.25 mcg PO QHS 07/01/18 Acetaminophen [Tylenol] 1,000 mg PO Q6H PRN PRN 02/15/19 Fluticasone 0.05% [Flonase Nasal [place]] 1 spray NASAL BID 02/26/19 Mineral Oil/Petrolatum,White [Eucerin] 1 applic TOPICAL BID PRN PRN 02/26/19 Albuterol Aerosols [Ventolin Aerosols] 2.5 mg INHALATION Q6H PRN PRN 03/25/19 Lactulose [Chronulac] 200 gm PO BID PRN PRN 03/25/19 Menthol [Bengay Vanishing Scent] 1 applic TOPICAL TID PRN PRN 03/25/19 Menthol/Lanolin/Calamine/Znox [Calmoseptine Ointment] 1 applic TOPICAL BID 03/25/19 Magnesium Oxide [Mag-Ox 400] 400 mg PO QHS #30 tab 03/29/19 Nsy 0.9% Ns Bolus 1,500 ml IV DAILY #5 iv.soln. 03/29/19 Nystatin Powder [Mycostatin Powder] 1 applic TOPICAL BID #1 bottle 03/29/19 The following prescriptions were given: Magnesium Oxide [Mag-Ox 400] 400 mg PO QHS #30 tab Transmission Status: Pending to [id number] Nystatin Powder [Mycostatin Powder] 1 applic TOPICAL BID #1 bottle Transmission Status: Received by [id number] Nsy 0.9% Ns Bolus 1,500 ml IV DAILY #5 iv.soln. Transmission Status: Pending to [id number] Primary Care Physician: Alexandria Carranza MD [Primary Care Provider] - Please follow up with your Primary Care Physician in: within 1-2 weeks Test Results: Test results from this visit will be discussed in further detail at your follow-up appointment, if applicable. Please Follow Up With: Sri Montiel MD When: within 2-4 weeks or as scheduled Proposed Discharge Date: 03/29/19
--- NOTE | 2019-03-29 09:33 | PCM.DC.SUM ---
Discharge Date and Diagnosis Date of Admission: 03/26/19 Date of Discharge: 03/29/19 - Primary Discharge Diagnosis Active and Suspected Problems Acute metabolic encephalopathy (Acute) Acute kidney injury on CKD stage III Hypoxia secondary to atelectasis Hypernatremia - Secondary Discharge Diagnosis Chronic Problems Neurogenic bladder (Chronic) MRSA colonization (Chronic) Bilateral hydronephrosis (Chronic) Iron deficiency anemia (Chronic) Hypomagnesemia (Chronic) Dehydration (Chronic) Constipation (Chronic) Hydronephrosis (Chronic) Bilateral. Complicated urinary tract infection (Chronic) Chronic suprapubic catheter. Vitamin D deficiency (Chronic) Muscle spasm (Chronic) OAB (overactive bladder) (Chronic) Allergic rhinitis (Chronic) Insomnia (Chronic) Hyperlipidemia (Chronic) CKD (chronic kidney disease) stage 4, GFR 15-29 ml/min (Chronic) Transient ischemic attack (Chronic) Multiple sclerosis (Chronic) Right hemiparesis (Chronic) Migraine headache (Chronic) Hospital Course and Treatment Imaging Results: Clinical Impression(s) from Imaging Studies Abdomen/Pelvis CT 03/25/19 23:42 IMPRESSION: Bilateral nonobstructing nephrolithiasis. There is bilateral renal atrophy more so on the left. Correlate for constipation. There is a large amount of stool within the rectosigmoid with some stranding surrounding the rectosigmoid region. Correlate for stercoral colitis. Again noted area of sigmoid colonic wall thickening. Similar to prior study. Underlying neoplasm cannot be excluded. However given the similar appearance thought less likely. Correlate with colonoscopy. Elevated right hemidiaphragm again noted. Nonvisualization of portions of the liver and right colon. Bladder stones. Chronic appearing dilatation of proximal duodenum. 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 Next Other findings as discussed above. Electronically Signed: Huber Delacruz, at 1:25 EDT Tel , Service support , Chest CT 03/25/19 23:42 IMPRESSION: A markedly elevated right hemidiaphragm. Bibasilar platelike atelectatic changes and a small right-sided effusion. Mild fecal stasis. The right side 7.3 mm calyceal calculus. Electronically Signed: El Esparza MD at 1:14 EDT Tel , Service support , None Operations: None Summary of Care Provided: 64 year old F with significant history of multiple sclerosis, neurogenic bladder with chronic suprapubic catheter admitted on 03/26/19 with hypoxia and altered mental status and found to have JAYY on CKD believed to be secondary to overdiuresis. Patient was found to be saturating at 92% on 4 L of oxygen. She was tachypneic with transmitted upper airway noise. Some of her medications such as Elavil, baclofen were withheld. She was started on IV fluids, and monitored. Her urine cultures grew MRSA and stenotrophomonas which were believed to be contaminant/secondary to colonization. Patient's mentation appeared to improve during the course of the hospital stay to her baseline. Her creatinine also continued to improve with IV fluids. At discharge, her creatinine was 1.88. Over the course of my management of this patient, I had a lengthy discussions with the daily who was persevering on what had happened in the TCU prior to her admission. He was insistent that patient be kept longer in the hospital until she is back to her previous state. I consistently reassured him and explained that the patient was improving and was in a stable state to be discharged at the time of being discharged. I also had to consistently reassure him that the team is fully advocating for recovery for this patient. Patient was seen by speech therapy during this hospitalization. She was discharged on the nectar thick liquid diet as well as mechanical soft diet instructions to set up 90 degrees while eating and to drink only with a straw. Discussed in depth with the patient's over her medication discharge list. I had earlier on discussed with Dr. Carranza about slowly introducing back patient's baclofen and Elavil. Her expressed understanding of all my discharge instructions. All questions and concerns were adequately addressed to his satisfaction. Subjective: On the day of discharge, patient was seen and examined. She had no new complaint. She slept fairly well. was at the bedside. He had multiple concerns and questions that were answered. Patient is going to go home with home health and with a [facility] which has been arranged for. had asked for IV fluids at home. He states that he is a retired nurse and can manage her IV fluids. Discussed on phone with her [facility] physician Dr. Carranza and she agrees with the IV fluids and she would assist in managing the IV fluids with home health. knows very well about the possibility of a fluid overload. Dr. Carranza is assured me that home health would assess for fluid overload. A prescription for 5 days of IV fluids was prescibed Objective: Physical Exam General: Alert and oriented x3, not pale, not jaundiced, looks well, well-hydrated HEENT: Atraumatic, Normocephalic Neck: Supple, Trachea Midline Lungs: Diminished breath sounds in the lungs, few crackles heard at the lung bases Cardiovascular: HS I +II, regular, no murmurs Abdomen: Bowel Sounds Present, Non-Distended, nontender, no palpable organs, suprapubic catheter in situ, no erythema on the point of insertion, no discharge Extremities: No edema Skin: No rashes Neurological: Alert oriented x3, weakness in the right side of the body, contractures of both lower extremities - Physical Exam Vital Signs Temp Pulse Resp BP Pulse Ox 97.8 F 90 18 167/96 H 95 03/29/19 02:00 03/29/19 05:14 03/29/19 02:00 03/29/19 02:00 03/29/19 07:00 Oxygen Flow Rate (L/min) 2 Oxygen Delivery Method Room Air Weight: 73.9 kg Body Mass Index (BMI) 27.1 Finger Stick Blood Glucose 67 Intake and Output for Last 24 Hours 03/27/19 03/28/19 03/29/19 23:59 23:59 23:59 Intake Total 3073 / 4696 4154 / 5036 1833 / 1833 Output Total 4800 / 5700 5100 / 6100 1900 / 1900 Balance -1727 / -1004 -946 / -1064 -67 / -67 Microbiology Past 72 Hours 03/26/19 04:35 Urine Culture - Final Urine, Clean Catch Meth. resistant Staph. aureus Stenotrophomonas maltophilia Discharge Diet: No Restrictions Discharge Activity: Return to Normal Activity Weight Bearing Status: Weight bearing as tolerated Home Medications: Medications to take at Discharge Aspirin E.C. [Ecotrin] 81 mg PO QHS 12/04/16 Atorvastatin Calcium [Lipitor] 40 mg PO QHS 09/05/17 Iron Polysaccharide Complex [Ferrex 150] 150 mg PO DAILYCM 09/05/17 Bisacodyl [Dulcolax] 10 mg RECTAL DAILY PRN 07/01/18 Calcitriol [Rocaltrol] 0.25 mcg PO QHS 07/01/18 Acetaminophen [Tylenol] 1,000 mg PO Q6H PRN PRN 02/15/19 Fluticasone 0.05% [Flonase Nasal [place]] 1 spray NASAL BID 02/26/19 Mineral Oil/Petrolatum,White [Eucerin] 1 applic TOPICAL BID PRN PRN 02/26/19 Albuterol Aerosols [Ventolin Aerosols] 2.5 mg INHALATION Q6H PRN PRN 03/25/19 Lactulose [Chronulac] 200 gm PO BID PRN PRN 03/25/19 Menthol [Bengay Vanishing Scent] 1 applic TOPICAL TID PRN PRN 03/25/19 Menthol/Lanolin/Calamine/Znox [Calmoseptine Ointment] 1 applic TOPICAL BID 03/25/19 Magnesium Oxide [Mag-Ox 400] 400 mg PO QHS #30 tab 03/29/19 Nsy 0.9% Ns Bolus 1,500 ml IV DAILY #5 iv.soln. 03/29/19 Nystatin Powder [Mycostatin Powder] 1 applic TOPICAL BID #1 bottle 03/29/19 Following Prescrptions Were Given to Patient: Magnesium Oxide [Mag-Ox 400] 400 mg PO QHS #30 tab Transmission Status: Received by [id number] Nystatin Powder [Mycostatin Powder] 1 applic TOPICAL BID #1 bottle Transmission Status: Received by [id number] Nsy 0.9% Ns Bolus 1,500 ml IV DAILY #5 iv.soln. Transmission Status: Received by [id number] Primary Care Physician: Alexandria Carranza MD [Primary Care Provider] - Please follow up with your Primary Care Physician in: within 1-2 weeks Please Follow Up With: Sri Montiel MD When: within 2-4 weeks or as scheduled Disposition: Home with Home Health Minutes spent on discharge:: 55 Patient Condition:: Stable Medical Necessity - Tobacco Use Smoking Status: Never smoker Tobacco Use: Non-smoker Meaningful Use Info Meaningful Use Diagnoses (Choose all that apply): None applicable Code Visit Inpatient E&M: 21520 Disch Hosp
[2019-03-29] MEDS: Ondansetron 4 MG/2 ML Vial IV (09:45)
[2019-03-29] MEDS: 0.9% NaCl VAD Flush 10 ML IV (09:45)
[2019-03-29] MEDS: Fluticasone 0.05% 1 SPRAY NASAL.SRY NASAL (10:00)
--- NOTE | 2019-03-29 10:05 | CASEMGMT ---
SHARLENE LATHAM updated that patient is discharging today to home. SHARLENE LATHAM in to discuss discharge needs with , Scott, and patient. Scott is requesting C be setup with [facility] for intermediate and would have patient participate in outpatient PT/OT. SHARLENE LATHAM explained to that patient will need to be home bound to receive HHC and if he wants outpatient PT/OT then HHC would not be able to see patient because patient would not be considered home bound. agreeable to [facility] for intermediate, and PT/OT in the home. Patient will also need IV fluids at home at discharge and prefers [facility]. is also requesting boris lift, this was initiated at previous admission to [facility] and referral was sent to [place] SHARLENE Gomez CM to follow-up on status of previous referral. SHARLENE LATHAM called [facility] and made referral for HH. [facility] is able to accept the patient and plan for start of care for 03/30/19. RN received script for IV fluids and referral was sent to [facility]. SHARLENE LATHAM called [facility] on status of boris referral. Per Sharita, they will deliver the boris today. SHARLENE LATHAM updated the , Scott, that referral was made to [facility] and they are able to accept with start of care 03/30/19. Scott is ok with start of care for tomorrow, as he has administered IV fluids at home previously. SHARLENE LATHAM also updated Scott that refer was made to [facility] and awaiting call back from [facility]. SHARLENE LATHAM updated Scott that the boris lift will be delivered today and [facility] will be in contact to arrange delivery time.
--- NOTE | 2019-03-29 10:45 | CASEMGMT ---
Social Work Note SW placed a call to Natalie at [facility] and left her a message informing her that pt will be discharged home today. Kelsie Armendariz TRANSPORTATION MANAGER, SET UP MECHANIC AUTOMATIC LINE
[2019-03-29 10:54] LABS: Anion Gap 10 (5-15); BUN 33 mg/dL (7-18); BUN/Creat Ratio 17.6 RATIO (10-20); Calcium,Total 9.7 mg/dL (8.5-10.1); Chloride 103 mmol/L (98-107); Creatinine, Serum 1.88 mg/dL (0.55-1.02); EST Glomerular Filtration Rate 29 mL/min (>60); Est Glom Filt Rate - Afr Amer 35 mL/min (>60); Glucose 100 mg/dL (74-106); Potassium 3.8 mmol/L (3.5-5.1); Sodium Level 139 mmol/L (136-145)
--- NOTE | 2019-03-29 16:49 | CASEMGMT ---
SHARLENE LATHAM updated that [facility] is unable to accept the patient. SHARLENE LATHAM made referral to [facility], who will accept the patient. SHARLENE LATHAM updated , Scott regarding denial from [facility] and new referral to [facility]. Patient voiced understanding and is accepting of [facility]. SHARLENE LATHAM updated [facility] with husbands request for afternoon visit.
--- NOTE | 2019-03-30 15:37 | CASEMGMT ---
SHARLENE LATHAM Discharge Follow-up Phone Call: TEVIN: Ken Strata: 3 Call Date: 03/30/19 Discharge Date: 03/29/19 Time of Call: 1540 Duration: 3 min Admitting Diagnosis: Acute Metabolic encephalopathy SHARLENE LATHAM completed follow-up phone call after recent hospitalization. SHARLENE LATHAM spoke with Siva, . Siva states that patient is improving slowly. [facility] nurse currently in the home. IV fluids were delivered without any issues. states that [facility] was setup with [facility], due to [facility] not able to obtain authorization. states that he has no further needs or concerns at this time.
== END 2019-03-29 14:17 | disposition home health service (06) | DRG 682 ==
LOC: ED 23:35 → MS3 03-26 02:42
PROVIDERS: Admitting Provider Hospitalist; Emergency Provider Emergency Medicine; Family Provider Internal Medicine; PCP Internal Medicine; Visit Provider Internal Medicine
DX: N17.9 Acute kidney failure, unspecified (principal); G93.41 Metabolic encephalopathy; J98.11 Atelectasis; E87.0 Hyperosmolality and hypernatremia; N31.9 Neuromuscular dysfunction of bladder, unspecified; R09.02 Hypoxemia; G35 Multiple sclerosis; Z93.59 Other cystostomy status; E86.0 Dehydration; E78.5 Hyperlipidemia, unspecified; N18.3 Chronic kidney disease, stage 3 (moderate)
CPT/HCPCS: 36600; 71250; 74176; 80048; 81001; 82803; 83880; 84484; 85025; 87077; 87086; 87088; 87186; 92526; 92610; 93005; 94668; 97162; 97166; 97530; 97535; 99283; J7030; J7120; A4216; J2405; J7799

== ENCOUNTER → 2019-04-04 14:08 | Outpatient (CLI) | payer MEDICARE, SELFPAY ==
[2019-03-26 03:24] VITALS: BMI 27.1
[2019-04-04 14:58] LABS: Absolute Lymphocyte Count 2.66 X10^3/ul (0.83-4.51); Absolute Neutrophil Count 5.3 X10^3/uL (2.0-7.7); Basophil# 0.06 X10^3/uL; Basophil% 0.6 % (0-1); Eosinophil# 0.69 X10^3/uL; Eosinophils% 7.3 % (0-5); Hematocrit 36.9 % (37-47); Hemoglobin 11.7 g/dl (12.0-15.0); Lymphocyte # 2.66 X10^3/ul (4.0); Mean Corp Hgb Conc 31.7 g/gl (32-36); Mean Corpuscular Hgb 28.7 pg (27.0-32.0); Mean Corpuscular Volume 90.4 fL (81-99); Mean Platelet Vol. 10.6 fl (6.2-12.0); Monocyte# 0.73 X10^3/uL; Monocyte% 7.7 % (0-10); Neutrophil # 5.34 X10^3/uL (2.7-7.7); Neutrophil % 56.3 % (47-70); Platelet Count 298 K/mm3 (150-450); RBC Distribution Width CV 16.5 % (11.6-14.6); RBC Distribution Width SD 53.7 fl (35.1-43.9); Red Blood Count 4.08 M/mm3 (4.2-5.4); White Blood Count 9.5 K/mm3 (4.4-11.0)
[2019-04-04 15:00] LABS: POSITIVE COUNT NO; POSITIVE DIFFERENTIAL NO; POSITIVE MORPHOLOGY NO
[2019-04-04 15:50] LABS: Anion Gap 8 (5-15); BUN 21 mg/dL (7-18); BUN/Creat Ratio 12.9 RATIO (10-20); Calcium,Total 9.1 mg/dL (8.5-10.1); Chloride 104 mmol/L (98-107); Creatinine, Serum 1.63 mg/dL (0.55-1.02); EST Glomerular Filtration Rate 34 mL/min (>60); Est Glom Filt Rate - Afr Amer 41 mL/min (>60); Glucose 79 mg/dL (74-106); Potassium 3.4 mmol/L (3.5-5.1); Sodium Level 137 mmol/L (136-145)
== END ==
PROVIDERS: Family Provider Internal Medicine; PCP Internal Medicine; Referring Provider Internal Medicine; Visit Provider Internal Medicine
DX: N18.3 Chronic kidney disease, stage 3 (moderate) (principal)
CPT/HCPCS: 80048; 85025

== ENCOUNTER → 2019-04-07 16:46 | Outpatient (CLI) | payer MEDICARE, SELFPAY ==
[2019-03-26 03:24] VITALS: BMI 27.1
[2019-04-07 16:53] LABS: Mucous, Urine 0 SEEN /hpf (<or=2+); Squamous Epithelial Cells - UA 0 SEEN /hpf (5-10)
[2019-04-07 17:01] LABS: Absolute Lymphocyte Count 2.98 X10^3/ul (0.83-4.51); Absolute Neutrophil Count 6.8 X10^3/uL (2.0-7.7); Basophil# 0.07 X10^3/uL; Basophil% 0.6 % (0-1); Eosinophil# 0.66 X10^3/uL; Eosinophils% 5.7 % (0-5); Hematocrit 35.7 % (37-47); Hemoglobin 11.5 g/dl (12.0-15.0); Lymphocyte # 2.98 X10^3/ul (4.0); Lymphocyte % 25.9 % (19-41); Mean Corp Hgb Conc 32.2 g/gl (32-36); Mean Corpuscular Hgb 29.5 pg (27.0-32.0); Mean Corpuscular Volume 91.5 fL (81-99); Mean Platelet Vol. 10.2 fl (6.2-12.0); Monocyte# 0.96 X10^3/uL; Monocyte% 8.4 % (0-10); Neutrophil % 59.2 % (47-70); POSITIVE COUNT NO; POSITIVE DIFFERENTIAL NO; POSITIVE MORPHOLOGY NO; Platelet Count 276 K/mm3 (150-450); RBC Distribution Width CV 16.9 % (11.6-14.6); RBC Distribution Width SD 56.1 fl (35.1-43.9); White Blood Count 11.5 K/mm3 (4.4-11.0)
[2019-04-07 17:12] LABS: Anion Gap 8 (5-15); BUN 35 mg/dL (7-18); BUN/Creat Ratio 16.7 RATIO (10-20); Calcium,Total 9.7 mg/dL (8.5-10.1); Chloride 106 mmol/L (98-107); Creatinine, Serum 2.09 mg/dL (0.55-1.02); EST Glomerular Filtration Rate 25 mL/min (>60); Est Glom Filt Rate - Afr Amer 31 mL/min (>60); Glucose 85 mg/dL (74-106); Potassium 4.9 mmol/L (3.5-5.1); Sodium Level 140 mmol/L (136-145)
[2019-04-07 18:39] LABS: Color, Urine Yellow (Yellow); Glucose, Dipstick Normal (Normal); Ketone-Dipstick Negative (Negative); Leukocyte Esterase-Dipstick 500 /ul (Negative); Nitrite-Dipstick Positive (Negative); Occult Blood-Urine 150 /ul (Negative); Protein-Dipstick 15 mg/dl (Negative); Urine Bilirubin Dipstick Negative (Negative); Urine Clarity Cloudy (Clear); Urine Urobilinogen Normal (Normal)
[2019-04-07 18:55] LABS: Red Blood Cells-Urine 0-5 SEEN /hpf (0-5); White Blood Cells 25-50 SEEN /hpf (0-5)
[2019-04-07 18:56] LABS: Amorphous Sediment 2+; Bacteria 4+ /hpf (None Seen)
== END ==
PROVIDERS: Family Provider Internal Medicine; PCP Internal Medicine; Referring Provider Internal Medicine; Visit Provider Internal Medicine
DX: N18.4 Chronic kidney disease, stage 4 (severe) (principal); N31.9 Neuromuscular dysfunction of bladder, unspecified; N13.30 Unspecified hydronephrosis; G35 Multiple sclerosis; A41.9 Sepsis, unspecified organism; N17.9 Acute kidney failure, unspecified
CPT/HCPCS: 80048; 81001; 85025; 87077; 87086; 87088; 87186

== ENCOUNTER → 2019-04-11 09:22 | Outpatient (CLI) | payer MEDICARE, SELFPAY ==
[2019-03-26 03:24] VITALS: BMI 27.1
[2019-04-11 10:10] LABS: Absolute Lymphocyte Count 1.85 X10^3/ul (0.83-4.51); Absolute Neutrophil Count 6.5 X10^3/uL (2.0-7.7); Basophil# 0.06 X10^3/uL; Basophil% 0.6 % (0-1); Eosinophil# 0.46 X10^3/uL; Eosinophils% 4.7 % (0-5); Hematocrit 37.4 % (37-47); Lymphocyte # 1.85 X10^3/ul (4.0); Lymphocyte % 18.9 % (19-41); Mean Corp Hgb Conc 32.1 g/gl (32-36); Mean Corpuscular Hgb 29.2 pg (27.0-32.0); Mean Platelet Vol. 10.3 fl (6.2-12.0); Monocyte# 0.93 X10^3/uL; Monocyte% 9.5 % (0-10); Neutrophil # 6.47 X10^3/uL (2.7-7.7); Neutrophil % 66.2 % (47-70); Platelet Count 239 K/mm3 (150-450); RBC Distribution Width CV 16.3 % (11.6-14.6); RBC Distribution Width SD 53.2 fl (35.1-43.9); Red Blood Count 4.11 M/mm3 (4.2-5.4); White Blood Count 9.8 K/mm3 (4.4-11.0)
[2019-04-11 10:11] LABS: POSITIVE COUNT NO; POSITIVE DIFFERENTIAL NO; POSITIVE MORPHOLOGY NO
[2019-04-11 10:48] LABS: ALB/GLOB Ratio 0.7 RATIO (0.9-2.4); AST(SGOT) 29 U/L (15-37); Alanine Aminotransfer ALT/SGPT 34 U/L (13-56); Albumin, Serum 3.2 g/dL (3.2-5.0); Alkaline Phosphatase 105 U/L (45-117); Anion Gap 9 (5-15); BUN 28 mg/dL (7-18); BUN/Creat Ratio 16.5 RATIO (10-20); Calcium,Total 9.3 mg/dL (8.5-10.1); Chloride 99 mmol/L (98-107); EST Glomerular Filtration Rate 32 mL/min (>60); Est Glom Filt Rate - Afr Amer 39 mL/min (>60); Globulin 4.6 g/dL (2.2-4.2); Glucose 86 mg/dL (74-106); Potassium 4.1 mmol/L (3.5-5.1); Protein, Total 7.8 g/dL (6.4-8.2); Sodium Level 134 mmol/L (136-145)
== END ==
PROVIDERS: Family Provider Internal Medicine; PCP Internal Medicine; Referring Provider Internal Medicine; Visit Provider Internal Medicine
DX: Z45.2 Encounter for adjustment and management of vascular access device (principal); G35 Multiple sclerosis; R53.81 Other malaise; G81.91 Hemiplegia, unspecified affecting right dominant side
CPT/HCPCS: 36592; 80053; 85025; A4216

== ENCOUNTER → 2019-04-20 11:28 | Outpatient (CLI) | payer MEDICARE, SELFPAY ==
[2019-03-26 03:24] VITALS: BMI 27.1
[2019-04-20 11:53] LABS: Absolute Lymphocyte Count 2.67 X10^3/uL (0.83-4.51); Absolute Neutrophil Count 4.3 X10^3/uL (2.0-7.7); Basophil# 0.06 X10^3/uL; Basophil% 0.7 % (0-1); Eosinophil# 0.46 X10^3/uL; Eosinophils% 5.7 % (0-5); Hematocrit 35.5 % (37-47); Hemoglobin 11.6 g/dL (12.0-15.0); Lymphocyte # 2.67 X10^3/ul (4.0); Mean Corp Hgb Conc 32.7 g/dL (32-36); Mean Corpuscular Hgb 29.7 pg (27.0-32.0); Mean Platelet Vol. 10.3 fl (6.2-12.0); Monocyte# 0.62 X10^3/uL; Monocyte% 7.7 % (0-10); NRBC Flagged by Analyzer 0 % (0-5); Neutrophil # 4.25 X10^3/uL (2.7-7.7); Neutrophil % 52.5 % (47-70); Platelet Count 186 K/mm3 (150-450); RBC Distribution Width SD 53.2 fl (35.1-43.9); White Blood Count 8.1 K/mm3 (4.4-11.0)
[2019-04-20 12:18] LABS: Anion Gap 5 (5-15); BUN 23 mg/dL (7-18); BUN/Creat Ratio 15.4 RATIO (10-20); Calcium,Total 9.5 mg/dL (8.5-10.1); Chloride 106 mmol/L (98-107); Creatinine, Serum 1.49 mg/dL (0.55-1.02); EST Glomerular Filtration Rate 37 mL/min (>60); Est Glom Filt Rate - Afr Amer 45 mL/min (>60); Glucose 81 mg/dL (74-106); Potassium 3.7 mmol/L (3.5-5.1); Sodium Level 141 mmol/L (136-145)
== END ==
PROVIDERS: Family Provider Internal Medicine; PCP Internal Medicine; Referring Provider Internal Medicine; Visit Provider Internal Medicine
DX: G35 Multiple sclerosis (principal); Z45.2 Encounter for adjustment and management of vascular access device; G81.91 Hemiplegia, unspecified affecting right dominant side; N18.4 Chronic kidney disease, stage 4 (severe); N31.9 Neuromuscular dysfunction of bladder, unspecified; N13.30 Unspecified hydronephrosis
CPT/HCPCS: 80048; 85025

== ENCOUNTER → 2019-05-08 15:03 | Outpatient (CLI) | payer MEDICARE, SELFPAY ==
[2019-03-26 03:24] VITALS: BMI 27.1
[2019-05-08 15:33] LABS: Absolute Lymphocyte Count 2.05 X10^3/uL (0.83-4.51); Absolute Neutrophil Count 5.1 X10^3/uL (2.0-7.7); Basophil# 0.05 X10^3/uL; Basophil% 0.6 % (0-1); Eosinophil# 0.22 X10^3/uL; Eosinophils% 2.6 % (0-5); Hematocrit 38.2 % (37-47); Hemoglobin 12.4 g/dL (12.0-15.0); Lymphocyte # 2.05 X10^3/ul (4.0); Lymphocyte % 24.4 % (19-41); Mean Corp Hgb Conc 32.5 g/dL (32-36); Mean Corpuscular Hgb 29.6 pg (27.0-32.0); Mean Corpuscular Volume 91.2 fL (81-99); Mean Platelet Vol. 9.5 fl (6.2-12.0); Monocyte# 0.93 X10^3/uL; Monocyte% 11.1 % (0-10); NRBC Flagged by Analyzer 0 % (0-5); Neutrophil # 5.13 X10^3/uL (2.7-7.7); Neutrophil % 61.1 % (47-70); Platelet Count 211 K/mm3 (150-450); RBC Distribution Width CV 15.7 % (11.6-14.6); RBC Distribution Width SD 52.4 fl (35.1-43.9); Red Blood Count 4.19 M/mm3 (4.2-5.4); White Blood Count 8.4 K/mm3 (4.4-11.0)
[2019-05-08 15:51] LABS: ALB/GLOB Ratio 0.8 RATIO (0.9-2.4); AST(SGOT) 21 U/L (15-37); Alanine Aminotransfer ALT/SGPT 33 U/L (13-56); Albumin, Serum 3.6 g/dL (3.2-5.0); Alkaline Phosphatase 121 U/L (45-117); Anion Gap 7 (5-15); BUN 33 mg/dL (7-18); BUN/Creat Ratio 15.1 RATIO (10-20); Calcium,Total 10.2 mg/dL (8.5-10.1); Chloride 102 mmol/L (98-107); Creatinine, Serum 2.18 mg/dL (0.55-1.02); EST Glomerular Filtration Rate 24 mL/min (>60); Est Glom Filt Rate - Afr Amer 29 mL/min (>60); Globulin 4.5 g/dL (2.2-4.2); Glucose 95 mg/dL (74-106); Potassium 4.4 mmol/L (3.5-5.1); Protein, Total 8.1 g/dL (6.4-8.2); Sodium Level 137 mmol/L (136-145)
[2019-05-08 16:34] LABS: Color, Urine Yellow (Yellow); Glucose, Dipstick Normal (Normal); Ketone-Dipstick Negative (Negative); Leukocyte Esterase-Dipstick 500 /ul (Negative); Nitrite-Dipstick Positive (Negative); Occult Blood-Urine 250 /ul (Negative); Protein-Dipstick 30 mg/dl (Negative); Urine Bilirubin Dipstick Negative (Negative); Urine Clarity Cloudy (Clear); Urine Urobilinogen Normal (Normal)
== END ==
PROVIDERS: Family Provider Internal Medicine; PCP Internal Medicine; Referring Provider Internal Medicine; Visit Provider Internal Medicine
DX: Z45.2 Encounter for adjustment and management of vascular access device (principal); G35 Multiple sclerosis; R53.81 Other malaise; G81.91 Hemiplegia, unspecified affecting right dominant side; R30.0 Dysuria
CPT/HCPCS: 80053; 81002; 85025; 87077; 87086; 87088; 96523; A4216

== ENCOUNTER 2019-05-23 07:48 | Inpatient (IN) | payer MEDICARE, SELFPAY ==
[2019-03-26 03:24] VITALS: BMI 27.1
[2019-05-23] VITALS (14 sets, daily range): BP systolic 105–155; BP diastolic 49–99; PULSE 85–115; RESP 16–20; TEMP 36.4–37.3; O2SAT 73–97; BMI 22.4
--- NOTE | 2019-05-23 08:15 | CT_ITS ---
STUDY: CT ABDOMEN AND PELVIS WITHOUT CONTRAST REASON FOR EXAM: Female, 64 years old. Abdominal pain, vomiting, distention RADIATION DOSAGE (If Supplied By Facility): CTDIvol = ( 15.91 ) mGy, DLP = ( 1178.44 ) mGycm TECHNIQUE: Transaxial images were obtained from the dome of the diaphragm to the symphysis pubis without oral contrast, and without intravenous contrast. Sagittal and coronal images were reconstructed. Individualized dose optimization techniques were used for this CT. COMPARISON: 03/26/2019 FINDINGS: Alveolar density within the left lower lobe consistent with atelectasis or pneumonia. The visualized portions of the heart are within normal limits. Normal liver. Normal gallbladder and extrahepatic biliary system. Normal spleen. Normal pancreas. Normal bilateral adrenal glands. Multiple bilateral nonobstructing renal stones. Severe left renal atrophy likely from chronic renal artery stenosis or occlusion. Nasogastric tube in the stomach. Moderate gastric distention. Normal small intestine. Normal colon. The appendix is visualized and appears normal. There is diffuse atherosclerotic calcification of the abdominal aorta, without a demonstrated aneurysm. Normal inferior vena cava. Normal retroperitoneum. Suprapubic catheter in the bladder. Normal abdominal wall. No change in moderate compression fractures of T12 and L2. CT/Abdomen/Pel W ORAL Cont Only IMPRESSION: Moderate gastric distention despite nasogastric tube. Electronically Signed: Bill Carter MD at 11:12 EDT Tel , Service support ,
--- NOTE | 2019-05-23 08:20 | ED.VISSUMM ---
- ER Visit Summary Date of Service: 05/23/19 Chief Complaint: Abdominal pain, nausea, vomiting History of Present Illness: The patient is a 64 F who presents with abdominal pain, nausea, and vomiting for the past 2 days. Patient has a history of MS so most of the history was obtained from the . states patient has had multiple episodes of vomiting over the past 2 days. He states that the emesis is green bile. He states that the patient has had large liquid bowel movement yesterday but he still thinks that she is constipated. Patient states her pain is diffuse and cramping. Patient has a history of frequent urinary tract infections and has a suprapubic catheter in place. Patient also admits to some shortness of breath and cough recently. Physical Examination: Vital signs are stable except for tachycardia of 115 and a mild tachypnea of 20. Pulse oximeter 73% on room air but is 92% on 4 L nasal cannula. Patient is in no acute distress. Patient is afebrile. Oral mucosa is pink and slightly dry. Neck is supple. Trachea is midline. There is no JVD noted. Heart was regular rate and rhythm. Lungs are slightly diminished in the bases bilaterally. Abdomen is soft. Bowel sounds are hypoactive. There is diffuse tenderness. There is no rebound or guarding noted. Cranial nerves II through XII are grossly intact. There his right hemiparesis and contractures of the right upper extremity. Test Results: EKG showed normal sinus rhythm with a rate of 102. There are no acute ST or T wave changes. CBC shows a leukocytosis of 22.7. CO2 is elevated at 40 and chloride is slightly low at 91. Creatinine is 2.78 which is increased from previous results. BUN is 37. Urinalysis shows leukocyte esterase of 500 with greater than 100 white blood cells. Occult blood was 250. CT scan of the abdomen and pelvis was obtained. There is gastric distention despite the NG tube in the stomach. There is left lower lobe atelectasis versus infiltrate as well. Emergency Department Course and Treatment: Patient was given Zofran and IV fluids here. Blood cultures and urine culture were obtained and are pending. Patient was started on Rocephin and Zithromax to cover for urinary tract infection and possible infiltrate of the left lower lobe. Case was discussed with the hospitalist. She recommended obtaining a lactate. This was ordered. She will admit the patient to her service. Patient and family understood and was agreeable with the plan. All questions were answered. Disposition: Admit to hospital Impression: 1. Leukocytosis 2. Gastric distention 3. Urinary tract infection This note was generated with [employer] dictation software. It may contain incorrect words, spelling, and punctuation that were not noted in review of the chart prior to signing ED Disposition - Plan for ED Patient: Disposition: Acute Care Hospital [facility] Diagnosis: Leukocytosis, Acute distention of stomach, Urinary tract infection Referrals: Alexandria Carranza MD [Primary Care Provider] -
--- NOTE | 2019-05-23 08:31 | EKG12_ITS ---
Test Reason : CHEST DISCOMFORT Blood Pressure : / mmHG Vent. Rate : 102 BPM Atrial Rate : 102 BPM P-R Int : 138 ms QRS Dur : 098 ms QT Int : 378 ms P-R-T Axes : 053 054 081 degrees QTc Int : 492 ms Sinus tachycardia Otherwise normal ECG Confirmed by YUMI BENJAMIN ([id number]), editor farm journal CHARLEY LÓPEZ ([id number]) on 05/29/2019 2:21:30 PM Referred By: Laura Warren Confirmed By:YUMI BENJMAIN
--- NOTE | 2019-05-23 09:06 | ED.RN ---
SUPRA PUBIC CATHETER CLAMPED AT THIS TIME FOR URINE SAMPLE
[2019-05-23] MEDS: 0.9% Normal Saline 1,000 ML 1000 ML IV ×2 (09:10→12:18)
[2019-05-23] MEDS: Oxymetazoline 0.05% 1 SPRAY SPRAY.BTL 2 SPRAY NASAL (09:10)
[2019-05-23 09:13] LABS: Absolute Lymphocyte Count 1.03 X10^3/uL (0.83-4.51); Absolute Neutrophil Count 19.8 X10^3/uL (2.0-7.7); Basophil# 0.04 X10^3/uL; Basophil% 0.2 % (0-1); Eosinophil# 0.01 X10^3/uL; Hematocrit 41.5 % (37-47); Hemoglobin 13.6 g/dL (12.0-15.0); Lymphocyte # 1.03 X10^3/ul (4.0); Lymphocyte % 4.5 % (19-41); Mean Corp Hgb Conc 32.8 g/dL (32-36); Mean Corpuscular Hgb 29.8 pg (27.0-32.0); Mean Platelet Vol. 9.6 fl (6.2-12.0); Monocyte# 1.62 X10^3/uL; Monocyte% 7.1 % (0-10); NRBC Flagged by Analyzer 0 % (0-5); Neutrophil # 19.79 X10^3/uL (2.7-7.7); Neutrophil % 87.4 % (47-70); POSITIVE DIFFERENTIAL YES; Platelet Count 235 K/mm3 (150-450); RBC Distribution Width CV 16.2 % (11.6-14.6); RBC Distribution Width SD 53.8 fl (35.1-43.9); Red Blood Count 4.56 M/mm3 (4.2-5.4); White Blood Count 22.7 K/mm3 (4.4-11.0)
[2019-05-23 09:16] LABS: Differential Indicated SCAN CRITERIA MET
--- NOTE | 2019-05-23 09:20 | RAD_ITS ---
STUDY: X-RAY - ABDOMEN/PELVIS REASON FOR EXAM: Female, 64 years old. NG tube placement TECHNIQUE: Single frontal view COMPARISON: None. FINDINGS: NGT with distal portion in the stomach, ready for use. Elevated right hemidiaphragm. Nonspecific atelectasis versus infiltrate in the right lower lung and to a lesser extent on the left There is a nonspecific bowel gas pattern. There is no demonstrated free abdominal air. Normal soft tissue structures. There are diffuse degenerative changes of the visualized lumbar spine. RAD/Abdomen Single View (Portable) IMPRESSION: Good position of the NGT, ready for use. Electronically Signed: Arsen Eckert MD at 10:14 EDT Tel [phone], Service support ,
[2019-05-23 09:33] LABS: ALB/GLOB Ratio 0.8 RATIO (0.9-2.4); AST(SGOT) 22 U/L (15-37); Alanine Aminotransfer ALT/SGPT 32 U/L (13-56); Albumin, Serum 3.6 g/dL (3.2-5.0); Alkaline Phosphatase 100 U/L (45-117); Anion Gap 5 (5-15); BUN 37 mg/dL (7-18); BUN/Creat Ratio 13.3 RATIO (10-20); Calcium,Total 9.5 mg/dL (8.5-10.1); Chloride 91 mmol/L (98-107); Creatinine, Serum 2.78 mg/dL (0.55-1.02); EST Glomerular Filtration Rate 18 mL/min (>60); Est Glom Filt Rate - Afr Amer 22 mL/min (>60); Estimated Creatinine Clearance 22.11 ml/min; Globulin 4.8 g/dL (2.2-4.2); Glucose 110 mg/dL (74-106); Lipase 145 U/L (73-393); Potassium 3.7 mmol/L (3.5-5.1); Protein, Total 8.4 g/dL (6.4-8.2); Sodium Level 136 mmol/L (136-145)
[2019-05-23 09:44] LABS: Bacteria 0 SEEN /hpf (None Seen); Mucous, Urine 0 SEEN /hpf (<or=2+); Red Blood Cells-Urine 0 SEEN /hpf (0-5); Squamous Epithelial Cells - UA 0 SEEN /hpf (5-10)
[2019-05-23 09:49] LABS: Color, Urine Yellow (Yellow); Glucose, Dipstick Normal (Normal); Ketone-Dipstick Negative (Negative); Leukocyte Esterase-Dipstick 500 /ul (Negative); Nitrite-Dipstick Negative (Negative); Occult Blood-Urine 250 /ul (Negative); Protein-Dipstick 30 mg/dl (Negative); Urine Bilirubin Dipstick Negative (Negative); Urine Clarity Cloudy (Clear); Urine Urobilinogen Normal (Normal)
[2019-05-23 09:57] LABS: White Blood Cells >100 SEEN /hpf (0-5)
--- NOTE | 2019-05-23 11:57 | HP.PCM_ITS ---
Problem List (1) Sepsis Status: Acute Qualifiers: Sepsis type: sepsis due to unspecified organism Sepsis acute organ dysfunction status: unspecified Qualified Code(s): A41.9 - Sepsis, unspecified organism (2) Aspiration pneumonia Status: Acute Qualifiers: Aspiration pneumonia type: unspecified Laterality: left Lung location: lower lobe of lung Qualified Code(s): J69.0 - Pneumonitis due to inhalation of food and vomit (3) Acute distention of stomach Status: Acute (4) Ileus Status: Acute (5) Acute kidney injury Status: Acute (6) Neurogenic bladder Status: Chronic (7) Iron deficiency anemia Status: Chronic Qualifiers: Iron deficiency anemia type: unspecified iron deficiency Qualified Code(s): D50.9 - Iron deficiency anemia, unspecified (8) OAB (overactive bladder) Status: Chronic (9) Allergic rhinitis Status: Chronic Qualifiers: Allergic rhinitis trigger: unspecified Allergic rhinitis seasonality: unspecified Qualified Code(s): J30.9 - Allergic rhinitis, unspecified (10) Insomnia Status: Chronic Qualifiers: Insomnia type: unspecified Qualified Code(s): G47.00 - Insomnia, unspecified (11) Hyperlipidemia Status: Chronic Qualifiers: Hyperlipidemia type: unspecified (12) CKD (chronic kidney disease) stage 4, GFR 15-29 ml/min Status: Chronic (13) Multiple sclerosis Status: Chronic (14) Right hemiparesis Status: Chronic (15) Migraine headache Status: Chronic Qualifiers: Migraine type: unspecified Status migrainosus presence: without status migrainosus Intractability: not intractable Qualified Code(s): G43.909 - Migraine, unspecified, not intractable, without status migrainosus History of Present Illness Date of Admission: 05/23/19 Chief Complaint: Severe abdominal distention, pain, nausea, emesis, malaise. The patient is a 64 y/o F w/ PMHx: CKD stage IV (baseline Cr 2.1-2.2), HLD, Hx TIA, Migraine Headaches, Multiple Sclerosis w/ Severe Debility w/ Bed bound status as well as R Hemiparesis, Neurogenic bladder w/ Chronic suprapubic catheter, Chronic constipation, Fe Deficiency anemia who presents to the [facility] ED on 05/23/19 with history of intractable nausea, emesis, abdominal pain, severe, 10 out of 10, cramping and diffuse generalized in nature with distention ongoing x48 hours with history of recent bowel movements. Work-up in the ED included T 98.8, heart rate 92, BP 136/86, respiratory rate 16, 97% on room air--> 95% on 4 L nasal cannula, CBC with WBC 22.7, hemoglobin 13.6, platelet 235 with notable left shift, chloride 91, carbon dioxide 40, BUN/creatinine 37/2.78, glucose 110, lactic acid 1.2, less than 0.015, lipase 145, urinalysis with evidence of dehydration with specific gravity 1.020, protein 30, occult blood 250, negative nitrite, leukocyte esterase 500, WBC greater than 100 however no urine bacteria present, urine culture pending per ED, blood culture x2 pending per ED, CT abdomen without contrast with alveolar density within left lower lobe consistent with atelectasis versus pneumonia, moderate gastric distention despite NG tube present, other chronic changes. Given severity of his mentation NG tube was placed in the ED with at time of evaluation 3 full canisters of output. Work-up at the ED included T 97.6, heart rate 104, BP 155/96, 97% on nasal cannula, CBC with W BC 22.7, hemoglobin 13.6, platelet 235 with left shift, CMP with chloride 91, carbon dioxide 40, BUN 37/creatinine 2.78, glucose 110, troponin less than 0.015, lipase 145, urinalysis with evidence of dehydration, 250 occult blood, 500 leukocytes esterase, 0 bacteria, W BC greater than 100, blood culture x2 pending per ED, urine culture pending per ED, CT abdomen with moderate gastric distention with NG tube in place, KUB follow-up with noted decent position of NG tube which had been placed. In the ED patient administered Rocephin, azithromycin, normal saline, Afrin as well as lidocaine jelly for NG tube placement. Past Medical History Past Medical History (Chronic Problems): Chronic Problems Neurogenic bladder (Chronic) MRSA colonization (Chronic) Bilateral hydronephrosis (Chronic) Iron deficiency anemia (Chronic) Hypomagnesemia (Chronic) Dehydration (Chronic) Constipation (Chronic) Hydronephrosis (Chronic) Bilateral. Complicated urinary tract infection (Chronic) Chronic suprapubic catheter. Vitamin D deficiency (Chronic) Muscle spasm (Chronic) OAB (overactive bladder) (Chronic) Allergic rhinitis (Chronic) Insomnia (Chronic) Hyperlipidemia (Chronic) CKD (chronic kidney disease) stage 4, GFR 15-29 ml/min (Chronic) Transient ischemic attack (Chronic) Multiple sclerosis (Chronic) Right hemiparesis (Chronic) Migraine headache (Chronic) Allergies ciprofloxacin [From Cipro] Adverse Reaction (Verified 05/23/19 07:49) hypotension interacts w/ zanaflex and baclofen doxycycline Adverse Reaction (Verified 05/23/19 07:49) hypotension interacts w/ zanaflex and baclofen levofloxacin [From Levaquin] Adverse Reaction (Verified 05/23/19 07:49) hypotension interacts w/ zanaflex and baclofen morphine Adverse Reaction (Verified 05/23/19 07:49) hallucinations piperacillin [From Zosyn] Adverse Reaction (Verified 05/23/19 07:49) hypotension interacts w/ zanaflex and baclofen sulfamethoxazole [From Bactrim] Adverse Reaction (Verified 05/23/19 07:49) hypotension interacts w/ zanaflex and baclofen tazobactam [From Zosyn] Adverse Reaction (Verified 05/23/19 07:49) hypotension interacts w/ zanaflex and baclofen trimethoprim [From Bactrim] Adverse Reaction (Verified 05/23/19 07:49) hypotension interacts w/ zanaflex and baclofen vancomycin Adverse Reaction (Verified 05/23/19 07:49) developed toxic levels Home Medications: Ambulatory Orders Medication Instructions Recorded Aspirin E.C. [Ecotrin] 81 mg PO QHS 12/04/16 Bisacodyl [Dulcolax] 10 mg RECTAL DAILY PRN 07/01/18 Calcitriol [Rocaltrol] 0.25 mcg PO QHS 07/01/18 Acetaminophen [Tylenol] 1,000 mg PO Q6H PRN PRN 02/15/19 Fluticasone 0.05% [Flonase Nasal 1 spray NASAL BID 02/26/19 [place]] Mineral Oil/Petrolatum,White 1 applic TOPICAL BID PRN PRN 02/26/19 [Eucerin] Albuterol Aerosols [Ventolin 2.5 mg INHALATION Q6H PRN PRN 03/25/19 Aerosols] Lactulose [Chronulac] 60 gm PO QODAY 03/25/19 Menthol [Bengay Vanishing Scent] 1 applic TOPICAL TID PRN PRN 03/25/19 Menthol/Lanolin/Calamine/Znox 1 applic TOPICAL BID 03/25/19 [Calmoseptine Ointment] Nystatin Powder [Mycostatin Powder] 1 applic TOPICAL BID #1 bottle 03/29/19 Amitriptyline HCl 75 mg PO QHS 05/23/19 Atorvastatin Calcium [Lipitor] 40 mg PO QHS 05/23/19 Baclofen 20 mg PO QHS 05/23/19 Baclofen [Lioresal] 1 tab PO BID 05/23/19 Cholecalciferol (Vitamin D3) 5,000 unit PO DAILY 05/23/19 [Vitamin D3] Fexofenadine HCl [Brook Allergy] 180 mg PO DAILY 05/23/19 Iron Polysaccharide Complex 150 mg PO DAILY 05/23/19 [Ferrex 150] Krill Oil 500 mg PO DAILY 05/23/19 L.acidoph,Paracasei, B.lactis 1 ea PO QHS 05/23/19 [Probiotic] Magnesium Oxide [Mag-Ox 400] 300 mg PO QHS 05/23/19 Melatonin 5 mg PO QHS 05/23/19 Vitamin B Complex 1 ea PO DAILY 05/23/19 Surgical History: adenoidectomy, tonsillectomy, - - Right shoulder surgery, ORIF right wrist, suprapubic catheter placement, Port placement. Psychiatric History: Anxiety NICK SETTER History: No pertinent NICK SETTER history Lives: With Family Smoking Status: Never smoker Tobacco Use: Non-smoker Alcohol: None Drugs: None - *Family History Maternal History Items: - - Osteoporosis Paternal History Items: Heart Disease, - - HLD Review of Systems Constitutional: Reports: Anorexia, Malaise, Weakness, Fatigue. Denies: Chills, Fever, Weight Change HEENT: Denies: Head Aches, Sinus Congestion, Sinus Drainage Cardiovascular: Denies: Chest Pain, Palpitations Respiratory: Denies: Cough, Shortness of breath at rest, Sputum production Gastrointestinal: Reports: Abdominal Pain, Nausea, Vomiting Genitourinary: Denies: Dysuria Musculoskeletal: Reports: Back Pain, Joint Pain. Denies: Joint Tenderness Skin: Denies: Rash, Wounds Neurological: Reports: Balance problems, Focal weakness. Denies: Numbness, Tingling Psychiatric: Reports: Anxiety, Depression. Denies: Homicidal Ideations, Suici harshad Ideations Hematologic/ Lymphatic: Reports: Anemia. Denies: Easy Bruising, Easy Bleeding VTE Information - Inpt Only VTE Present on Admission: No VTE Mechan Device Prophylaxis: SCD's VTE Pharm Prophylaxis ordered?: Yes Patient Problems: Active and Suspected Problems Leukocytosis (Acute) Acute distention of stomach (Acute) Urinary tract infection (Acute) Ileus (Acute) Aspiration pneumonia (Acute) Sepsis (Acute) Acute kidney injury (Acute) Subjective: Seated upright in ED bed, improved since initial presentation, notable copious ongoing NG tube output, abdominal distention has markedly improved since initial presentation, notes pain is improved. Objective: Physical Examination: General: awake, alert, oriented x 3 and cooperative, seated upright in the ED bed, fatigued appearance, NGT in place with ongoing copious output. Skin: normal color, turgor, no icterus, cyanosis aside chronic BL LE venous stasis skin changes. HEENT: AT/NC, EOMI, PERRLA, dry MM, NGT in place, no carotid bruits or JVD noted. Lungs: Diminished BS BL, L>R bases, mildly coarse, moderate effort, no rales, ronchi or wheezing. Heart: Regular rate and rhythm; no gallop, rub audible. Abdomen: soft, markedly improved, less tender to palpation since NG tube placement with copious output, diffusely diminished bowel sounds, no HSM. Extremities: no cyanosis, clubbing, chronic BL LE venous stasis skin changes, cool, chronic, R hemiplegia, muscle wasting. Neurological: patient awake, alert, oriented x 3; cognitive function intact; pupils equally reactive to light and accomodation; cranial nerves II-XII grossly normal, R hemiplegia chronically, severely globally decreased secondary to acute presentation and chronic underlying MS history with debility, chronic contracture. Psychiatric: affect appears flat, fatigued, no acute evidence of depressive or anxiety feelings. - Physical Exam Vital Signs Temp Pulse Resp BP Pulse Ox 97.9 F 98 17 143/92 H 94 05/23/19 11:10 05/23/19 11:10 05/23/19 11:10 05/23/19 11:10 05/23/19 11:10 Oxygen Flow Rate (L/min) 4 Oxygen Delivery Method Nasal Cannula Weight: 156 lb Body Mass Index (BMI) 22.4 Finger Stick Blood Glucose 67 Intake and Output for Last 24 Hours 05/21/19 05/22/19 05/23/19 23:59 23:59 23:59 Intake Total 1300 / 1300 Output Total 2300 / 2300 Balance -1000 / -1000 Laboratory Tests Past 24 Hrs 05/23/19 05/23/19 05/23/19 08:55 08:55 09:35 WBC 22.7 H RBC 4.56 Hgb 13.6 Hct 41.5 MCV 91.0 MCH 29.8 MCHC 32.8 RDW Std Deviation 53.8 H RDW Coeff of Niurka 16.2 H Plt Count 235 MPV 9.6 Immature Gran % (Auto) 0.800 Neut % (Auto) 87.4 H Lymph % (Auto) 4.5 L Kings % (Auto) 7.1 Eos % (Auto) 0.0 Baso % (Auto) 0.2 Absolute Neuts (auto) 19.8 H Absolute Lymphs (auto) 1.03 Nucleated RBC % 0 Differential Comment COMMENT Diff Path Review May foll Sodium 136 Potassium 3.7 Chloride 91 L Carbon Dioxide 40.0 H Anion Gap 5 BUN 37 H Creatinine 2.78 H Estim Creat Clear Calc 22.11 Est GFR (MDRD) Af Amer 22 L Est GFR (MDRD) Non-Af 18 L BUN/Creatinine Ratio 13.3 Glucose 110 H Calcium 9.5 Total Bilirubin 0.60 AST 22 ALT 32 Alkaline Phosphatase 100 Troponin I < 0.015 Total Protein 8.4 H Albumin 3.6 Globulin 4.8 H Albumin/Globulin Ratio 0.8 L Lipase 145 Urine Color Yellow Urine Clarity Cloudy Urine pH 6.0 Ur Specific [place] 1.020 Urine Protein 30 H Urine Glucose (UA) Normal Urine Ketones Negative Urine Occult Blood 250 H Urine Nitrite Negative Urine Bilirubin Negative Urine Urobilinogen Normal Ur Leukocyte Esterase 500 H Urine RBC 0 SEEN Urine WBC >100 SEEN Ur Squamous Epith Cells 0 SEEN Urine Bacteria 0 SEEN Urine Mucus 0 SEEN Assessment/Plan All Active Problems Fever (Acute) Sepsis (Acute) Infection due to human metapneumovirus (hMPV) (Acute) Acute metabolic encephalopathy (Acute) Leukocytosis (Acute) Acute distention of stomach (Acute) Urinary tract infection (Acute) Ileus (Acute) Aspiration pneumonia (Acute) Sepsis (Acute) Acute kidney injury (Acute) Vomiting (Acute) Declining functional status (Acute) The patient is a 64 y/o F w/ PMHx: CKD stage IV (baseline Cr 2.1-2.2), HLD, Hx TIA, Migraine Headaches, Multiple Sclerosis w/ Severe Debility w/ Bed bound status as well as R Hemiparesis, Neurogenic bladder w/ Chronic suprapubic catheter, Chronic constipation, Fe Deficiency anemia who presents to the [facility] ED on 05/23/19 with history of intractable nausea, emesis, abdominal pain, severe, 10 out of 10, cramping and diffuse generalized in nature with distention ongoing x48 hours with history of recent bowel movements. 1. Abdominal pain, nausea, emesis w/ Severe Gastric Distension w/ Severe Ileus, Unclear Specific Etiology: NG placed in the ED with notable copious output. Will admit to MS, maintain on IVFs, continue NGT to suction with clamp with certain medications only, strict I&Os, IV pain/anti-emetics PRN, serial KUB as needed to montior bowel function, PI IV, maintain NPO on bowel rest. General surgery, Dr. Vazquez consulted and will evaluate patient with case reviewed. 2. Acute Sepsis secondary to Suspected Aspiration Pneumonia: Aspiration suspected given patient chronic dysphagia with allowance per discussion with of normal thin liquid water intake but other liquids requiring thickening with recent nausea, emesis serially with gastric distention and notable contents with possible aspiration at that time. Will maintain on oxygen with wean as tolerated to room air, PRN albuterol, ATC duoneb, transitioning baclofen to Ativan with planned usage of Zosyn therapy per discussion with spouse as does have interaction, HOB, IS parameters w/ pending sputum cultures and urine antigens. Bld cx x 2 obtained in the ED. 3. Acute kidney injury: Secondary to ileus, poor intake w/ dehydration. Admission BUN/Cr 37/2.78, prior baseline creatinine noted to be 2.1-2.2. Will hydrate, hold nephrotoxic medications and repeat chemistry in AM. If no improvement would plan FeNa assessment. 4. Multiple sclerosis: Stable, allowance of oral regimen with NG clamping per discussion with surgery, transitioning baclofen to Ativan temporarily to avoid withdrawal given usage of Zosyn therapy per discussion with spouse, supportive care. PT, OT, speech consulted as well as CM for discharge pending. 5. 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 Currently n.p.o. status as noted but normally on altered liquids aside water. PT, OT, speech therapy, case management consultations requested. 6. Iron deficiency anemia: Admission hemoglobin 13.6, stable, continue ferric supplementation. 7. DVT prophylaxis: SCDs, heparin. Code Visit Inpatient E&M: 69923 Init Hosp L3
--- NOTE | 2019-05-23 12:00 | NURSING ---
DR KRISHNAN FOR DR NOVOA
--- NOTE | 2019-05-23 12:11 | NURSING ---
310 WHITE LEUKOCYTOSIS, URINARY TRACT INFECTION, GASTRIC DISTENTION
[2019-05-23] MEDS: Ceftriaxone 1 GM/50 ML BAG IV (12:16)
--- NOTE | 2019-05-23 12:40 | CHAPLAIN ---
Type of Pastoral Visit ___ Initial Visit ___ Follow-up Visit ___ On-call Visit ___ General Patient Visit ___ Spiritual Assessment ___ Family Conference ___ Bereavement ___ Rapid Response ___ Code Blue _x - Emergency Room - Other (describe below) Pastoral Care Referral From _x__ Patient _x__ Family ___ Nurse ___ Physician ___ Infection Control Nurse ___ Model And Mold Maker ___ Other (describe below) Sacrament/Intervention _x__ Active listening ___ Anointing ___ Church ___ Bereavement ___ Communion ___ Justine exploration ___ ___ Life review _x__ Prayer ___ Reconciliation ___ Sacrament of Sick _x__ Supportive presence ___ Wedding ___ Other (describe below) Pastoral Comments
[2019-05-23 13:00] LABS: Lactic Acid 1.2 mmol/L (0.4-2.0)
[2019-05-23 13:26] LABS: Magnesium 3.5 mg/dL (1.6-2.6); Phosphorus 5.7 mg/dL (2.5-4.9)
[2019-05-23] MEDS: 0.9% Normal Saline 1,000 ML 125 ML IV ×2 (13:53→22:59)
[2019-05-23] MEDS: Ipratropium/Albuterol Sulfate 3 ML AMPUL.NEB INHALATION ×2 (13:56→19:19)
[2019-05-23] MEDS: Acetaminophen 325 MG Tablet 650 MG PO (14:58)
[2019-05-23] MEDS: 0.9% NaCl Peripheral Flush Adult/Peds IV (15:47)
[2019-05-23] MEDS: LORazepam 0.5 MG Tablet PO ×2 (17:33→22:15)
--- NOTE | 2019-05-23 20:00 | NURSING ---
Upon assessing pt's IV, noticed that 1400 bag of Zosyn was unclamped, but did not infuse from secondary bag. Tubing changed and Zosyn infused without difficulty. Dose to finish at 0000, and next dose scheduled for 2200. Per pharmacist, finish 1400 dose and hang 2200 dose late at midnight.
[2019-05-23] MEDS: Menthol/Lanolin/Calamine/Znox 113 GM Tube 1 APPLIC TOPICAL (22:15)
[2019-05-23] MEDS: Fluticasone 0.05% 1 SPRAY NASAL.SRY NASAL (22:16)
[2019-05-23] MEDS: Amitriptyline 25 MG Tablet 75 MG PO (22:16)
[2019-05-23] MEDS: Aspirin E.C. 81 MG Tablet PO (22:16)
[2019-05-23] MEDS: Atorvastatin Calcium 40 MG Tablet PO (22:17)
[2019-05-23] MEDS: Nystatin Powder 15gm Bottle 1 APPLIC TOPICAL (22:17)
[2019-05-24] VITALS (14 sets, daily range): BP systolic 98–113; BP diastolic 49–63; PULSE 76–98; RESP 16–20; TEMP 36.7–37.3; O2SAT 94–99
--- NOTE | 2019-05-24 00:10 | NURSING ---
Xray states that they will be unable to do Abdominal xray at 0600 as ordered d/t limited staff and pt's condition, so they will plan on doing Xray at 0630.
[2019-05-24] MEDS: MELATONIN 3 MG TABLET PO (00:45)
[2019-05-24 04:46] LABS: Absolute Lymphocyte Count 1.63 X10^3/uL (0.83-4.51); Absolute Neutrophil Count 9.3 X10^3/uL (2.0-7.7); Basophil# 0.03 X10^3/uL; Basophil% 0.2 % (0-1); Eosinophil# 0.23 X10^3/uL; Eosinophils% 1.9 % (0-5); Hematocrit 31.4 % (37-47); Hemoglobin 9.9 g/dL (12.0-15.0); Lymphocyte # 1.63 X10^3/ul (4.0); Lymphocyte % 13.4 % (19-41); Mean Corp Hgb Conc 31.5 g/dL (32-36); Mean Corpuscular Hgb 29.5 pg (27.0-32.0); Mean Corpuscular Volume 93.5 fL (81-99); Mean Platelet Vol. 9.9 fl (6.2-12.0); Monocyte# 0.95 X10^3/uL; Monocyte% 7.8 % (0-10); NRBC Flagged by Analyzer 0 % (0-5); Neutrophil # 9.31 X10^3/uL (2.7-7.7); Neutrophil % 76.4 % (47-70); Platelet Count 138 K/mm3 (150-450); RBC Distribution Width CV 16.2 % (11.6-14.6); RBC Distribution Width SD 55.7 fl (35.1-43.9); Red Blood Count 3.36 M/mm3 (4.2-5.4); White Blood Count 12.2 K/mm3 (4.4-11.0)
[2019-05-24 05:01] LABS: Anion Gap 7 (5-15); BUN 34 mg/dL (7-18); BUN/Creat Ratio 14.8 RATIO (10-20); Calcium,Total 8.1 mg/dL (8.5-10.1); Chloride 103 mmol/L (98-107); Creatinine, Serum 2.29 mg/dL (0.55-1.02); EST Glomerular Filtration Rate 23 mL/min (>60); Est Glom Filt Rate - Afr Amer 28 mL/min (>60); Estimated Creatinine Clearance 26.84 ml/min; Glucose 79 mg/dL (74-106); Potassium 3.4 mmol/L (3.5-5.1); Sodium Level 142 mmol/L (136-145)
--- NOTE | 2019-05-24 06:00 | RAD_ITS ---
STUDY: X-RAY - ABDOMEN/PELVIS REASON FOR EXAM: Female, 64 years old. Abdominal distention TECHNIQUE: 4 views COMPARISON: CT scan of 05/23/2019 FINDINGS: Unremarkable visualized lung bases. Stable NGT. Persistent distention of the stomach. Significant fecal loading along the cecum and right colon. Nonspecific small bowel gas pattern. There is no demonstrated free abdominal air. There are calcified phleboliths in the pelvis. There are diffuse degenerative changes of the visualized lumbar spine. RAD/Abd Inc Decub and/or Erect IMPRESSION: Stable NGT. Persistent distention of the stomach. Significant fecal loading along the cecum and right colon. Nonspecific small bowel gas pattern. Electronically Signed: Arsen Eckert MD at 8:45 EDT Tel [phone], Service support ,
--- NOTE | 2019-05-24 06:29 | CON.PCM_ITS ---
Reason for Consult Date of Consultation: 05/23/19 Reason for Consultation: abdominal distention, abdominal pain History of Present Illness: The patient is a 64 year old F who presents to [facility] earlier today with a 2 day history of abdominal pain, nausea, vomiting and abdominal distention. The patient has a history of multiple sclerosis with right-sided weakness/paralysis, recurring urinary tract infections and overall debility. The patient's notes she's had multiple episodes of vomiting over the past 2 days. Her vomitus is green and bilious. She's had significant abdominal distention. Her notes she had a liquid bowel movement the day prior to admission but still feels she has a degree of constipation. In the emergency department she had laboratory studies obtained which showed White blood cell count of 22.7. BUN creatinine were somewhat increased. Urinalysis demonstrated positive leukocyte esterase and white blood cells. A nasogastric tube was placed and drained approximately 3000 cc of fluid ( filled [address] scan of the abdomen and pelvis was obtained. this demonstrated was felt to be left lower lobe pneumonia. The patient has significantly elevated right hemidiaphragm with a large amount of colon up above the liver in that right hemidiaphragm.she had a persistently distended stomach listed as moderate even with nasogastric tube in place. The small intestine and colon were noted to be normal. My review is the patient's significant right- sided stool with less left sided stool. She was admitted to the medicine service with a diagnosis of abdominal distention likely aspiration pneumonia.she was started on Zosyn. He also started on Protonix. I was consulted. The patient has a previous history of a gastrostomy tube understands was placed in 2013 or 15. It is since been removed. I placed a Port-A-Cath in 2017 due to exhausted vascular access. That apparently is accessed and functioning. Overall the patient notes that her abdomen is more comfortable now and her pain is pretty much resolved. Past Medical History Past Medical History (Chronic Problems): Chronic Problems Neurogenic bladder (Chronic) MRSA colonization (Chronic) Bilateral hydronephrosis (Chronic) Iron deficiency anemia (Chronic) Hypomagnesemia (Chronic) Dehydration (Chronic) Constipation (Chronic) Hydronephrosis (Chronic) Bilateral. Complicated urinary tract infection (Chronic) Chronic suprapubic catheter. Vitamin D deficiency (Chronic) Muscle spasm (Chronic) OAB (overactive bladder) (Chronic) Allergic rhinitis (Chronic) Insomnia (Chronic) Hyperlipidemia (Chronic) CKD (chronic kidney disease) stage 4, GFR 15-29 ml/min (Chronic) Transient ischemic attack (Chronic) Multiple sclerosis (Chronic) Right hemiparesis (Chronic) Migraine headache (Chronic) Allergies ciprofloxacin [From Cipro] Adverse Reaction (Verified 05/23/19 07:49) hypotension interacts w/ zanaflex and baclofen doxycycline Adverse Reaction (Verified 05/23/19 07:49) hypotension interacts w/ zanaflex and baclofen levofloxacin [From Levaquin] Adverse Reaction (Verified 05/23/19 07:49) hypotension interacts w/ zanaflex and baclofen morphine Adverse Reaction (Verified 05/23/19 07:49) hallucinations piperacillin [From Zosyn] Adverse Reaction (Verified 05/23/19 07:49) hypotension interacts w/ zanaflex and baclofen sulfamethoxazole [From Bactrim] Adverse Reaction (Verified 05/23/19 07:49) hypotension interacts w/ zanaflex and baclofen tazobactam [From Zosyn] Adverse Reaction (Verified 05/23/19 07:49) hypotension interacts w/ zanaflex and baclofen trimethoprim [From Bactrim] Adverse Reaction (Verified 05/23/19 07:49) hypotension interacts w/ zanaflex and baclofen vancomycin Adverse Reaction (Verified 05/23/19 07:49) developed toxic levels Home Medications: Ambulatory Orders Medication Instructions Recorded Aspirin E.C. [Ecotrin] 81 mg PO QHS 12/04/16 Bisacodyl [Dulcolax] 10 mg RECTAL DAILY PRN 07/01/18 Calcitriol [Rocaltrol] 0.25 mcg PO QHS 07/01/18 Acetaminophen [Tylenol] 1,000 mg PO Q6H PRN PRN 02/15/19 Fluticasone 0.05% [Flonase Nasal 1 spray NASAL BID 02/26/19 [place]] Mineral Oil/Petrolatum,White 1 applic TOPICAL BID PRN PRN 02/26/19 [Eucerin] Albuterol Aerosols [Ventolin 2.5 mg INHALATION Q6H PRN PRN 03/25/19 Aerosols] Lactulose [Chronulac] 60 gm PO QODAY 03/25/19 Menthol [Bengay Vanishing Scent] 1 applic TOPICAL TID PRN PRN 03/25/19 Menthol/Lanolin/Calamine/Znox 1 applic TOPICAL BID 03/25/19 [Calmoseptine Ointment] Nystatin Powder [Mycostatin Powder] 1 applic TOPICAL BID #1 bottle 03/29/19 Amitriptyline HCl 75 mg PO QHS 05/23/19 Atorvastatin Calcium [Lipitor] 40 mg PO QHS 05/23/19 Baclofen 20 mg PO QHS 05/23/19 Baclofen [Lioresal] 1 tab PO BID 05/23/19 Cholecalciferol (Vitamin D3) 5,000 unit PO DAILY 05/23/19 [Vitamin D3] Fexofenadine HCl [Brook Allergy] 180 mg PO DAILY 05/23/19 Iron Polysaccharide Complex 150 mg PO DAILY 05/23/19 [Ferrex 150] Krill Oil 500 mg PO DAILY 05/23/19 L.acidoph,Paracasei, B.lactis 1 ea PO QHS 05/23/19 [Probiotic] Magnesium Oxide [Mag-Ox 400] 300 mg PO QHS 05/23/19 Melatonin 5 mg PO QHS 05/23/19 Vitamin B Complex 1 ea PO DAILY 05/23/19 Surgical History: adenoidectomy, tonsillectomy, - - Right shoulder surgery, ORIF right wrist, suprapubic catheter placement, Port placement. 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 APPLICATIONS REPRESENTATIVE History: No pertinent CASH APPLICATIONS REPRESENTATIVE history Lives: With Family Smoking Status: Never smoker Tobacco Use: Non-smoker Alcohol: None Drugs: None - *Family History Maternal History Items: - - Osteoporosis Paternal History Items: Heart Disease, - - HLD Review of Systems Constitutional: Reports: Anorexia, Malaise, Weakness, Fatigue HEENT: Denies: Head Aches, Sinus Congestion, Sinus Drainage Cardiovascular: Denies: Chest Pain, Palpitations Respiratory: Denies: Cough, Shortness of breath at rest, Sputum production Gastrointestinal: Reports: Abdominal Pain, Constipation, Melena, Vomiting Genitourinary: Denies: Dysuria Neurological: Reports: Balance problems, Focal weakness Hematologic/ Lymphatic: Reports: Anemia Patient Problems: Active and Suspected Problems Leukocytosis (Acute) Acute distention of stomach (Acute) Urinary tract infection (Acute) Ileus (Acute) Aspiration pneumonia (Acute) Sepsis (Acute) Acute kidney injury (Acute) - Physical Exam General: Alert, Oriented x3 Neck: - Lungs: - - diminished breath sounds by a laterally with coarse breath sounds left base Cardiovascular: Regular rate, Regular Rhythm, No murmurs, No Ectopic Activity Abdomen: Soft, Non Tender, Hypoactive Bowel Sounds, - - suprapubic tube in place, urine cloudy NG tube was significant bilious output Vital Signs Temp Pulse Resp BP Pulse Ox 98.9 F 89 18 113/63 94 05/24/19 04:07 05/24/19 04:07 05/24/19 04:07 05/24/19 04:07 05/24/19 04:07 Oxygen Flow Rate (L/min) 4 Oxygen Delivery Method Nasal Cannula Weight: 70.7 kg Body Mass Index (BMI) 22.4 Finger Stick Blood Glucose 67 Intake and Output for Last 24 Hours 05/22/19 05/23/19 05/24/19 23:59 23:59 23:59 Intake Total 4102.09 / 4287.09 961.04 / 961.04 Output Total 3625 / 4275 650 / 650 Balance 477.09 / 12.09 311.04 / 311.04 Microbiology Past 72 Hours 05/23/19 11:00 Blood Culture - Preliminary Blood Culture (Wb) - Port 05/23/19 09:35 Streptococcus pneumoniae Antigen (M - Final Urine Catheter - Catheter 05/23/19 09:35 Legionella Antigen - Final Urine Catheter - Catheter Laboratory Tests Past 24 Hrs 05/23/19 05/23/19 05/23/19 08:55 08:55 08:55 WBC 22.7 H RBC 4.56 Hgb 13.6 Hct 41.5 MCV 91.0 MCH 29.8 MCHC 32.8 RDW Std Deviation 53.8 H RDW Coeff of [place] 16.2 H Plt Count 235 MPV 9.6 Immature Gran % (Auto) 0.800 Neut % (Auto) 87.4 H Lymph % (Auto) 4.5 L [place] % (Auto) 7.1 Eos % (Auto) 0.0 Baso % (Auto) 0.2 Absolute Neuts (auto) 19.8 H Absolute Lymphs (auto) 1.03 Nucleated RBC % 0 Differential Comment COMMENT Diff Path Review May foll Sodium 136 Potassium 3.7 Chloride 91 L Carbon Dioxide 40.0 H Anion Gap 5 BUN 37 H Creatinine 2.78 H Estim Creat Clear Calc 22.11 Est GFR (MDRD) Af Amer 22 L Est GFR (MDRD) Non-Af 18 L BUN/Creatinine Ratio 13.3 Glucose 110 H Lactic Acid Calcium 9.5 Phosphorus 5.7 H Magnesium 3.5 H Total Bilirubin 0.60 AST 22 ALT 32 Alkaline Phosphatase 100 Troponin I < 0.015 Total Protein 8.4 H Albumin 3.6 Globulin 4.8 H Albumin/Globulin Ratio 0.8 L Lipase 145 Urine Color Urine Clarity Urine pH Ur Specific [place] Urine Protein Urine Glucose (UA) Urine Ketones Urine Occult Blood Urine Nitrite Urine Bilirubin Urine Urobilinogen Ur Leukocyte Esterase Urine RBC Urine WBC Ur Squamous Epith Cells Urine Bacteria Urine Mucus 05/23/19 05/23/19 05/24/19 09:35 12:10 04:34 WBC 12.2 H RBC 3.36 L Hgb 9.9 L Hct 31.4 L MCV 93.5 MCH 29.5 MCHC 31.5 L RDW Std Deviation 55.7 H RDW Coeff of [place] 16.2 H Plt Count 138 L MPV 9.9 Immature Gran % (Auto) 0.300 Neut % (Auto) 76.4 H Lymph % (Auto) 13.4 L [place] % (Auto) 7.8 Eos % (Auto) 1.9 Baso % (Auto) 0.2 Absolute Neuts (auto) 9.3 H Absolute Lymphs (auto) 1.63 Nucleated RBC % 0 Differential Comment Diff Path Review Sodium Potassium Chloride Carbon Dioxide Anion Gap BUN Creatinine Estim Creat Clear Calc Est GFR (MDRD) Af Amer Est GFR (MDRD) Non-Af BUN/Creatinine Ratio Glucose Lactic Acid 1.2 Calcium Phosphorus Magnesium Total Bilirubin AST ALT Alkaline Phosphatase Troponin I Total Protein Albumin Globulin Albumin/Globulin Ratio Lipase Urine Color Yellow Urine Clarity Cloudy Urine pH 6.0 Ur Specific [place] 1.020 Urine Protein 30 H Urine Glucose (UA) Normal Urine Ketones Negative Urine Occult Blood 250 H Urine Nitrite Negative Urine Bilirubin Negative Urine Urobilinogen Normal Ur Leukocyte Esterase 500 H Urine RBC 0 SEEN Urine WBC >100 SEEN Ur Squamous Epith Cells 0 SEEN Urine Bacteria 0 SEEN Urine Mucus 0 SEEN 05/24/19 04:34 WBC RBC Hgb Hct MCV MCH MCHC RDW Std Deviation RDW Coeff of [place] Plt Count MPV Immature Gran % (Auto) Neut % (Auto) Lymph % (Auto) [place] % (Auto) Eos % (Auto) Baso % (Auto) Absolute Neuts (auto) Absolute Lymphs (auto) Nucleated RBC % Differential Comment Diff Path Review Sodium 142 Potassium 3.4 L Chloride 103 Carbon Dioxide 32.0 Anion Gap 7 BUN 34 H Creatinine 2.29 H Estim Creat Clear Calc 26.84 Est GFR (MDRD) Af Amer 28 L Est GFR (MDRD) Non-Af 23 L BUN/Creatinine Ratio 14.8 Glucose 79 Lactic Acid Calcium 8.1 L Phosphorus Magnesium Total Bilirubin AST ALT Alkaline Phosphatase Troponin I Total Protein Albumin Globulin Albumin/Globulin Ratio Lipase Urine Color Urine Clarity Urine pH Ur Specific [place] Urine Protein Urine Glucose (UA) Urine Ketones Urine Occult Blood Urine Nitrite Urine Bilirubin Urine Urobilinogen Ur Leukocyte Esterase Urine RBC Urine WBC Ur Squamous Epith Cells Urine Bacteria Urine Mucus Assessment/Plan All Active Problems Fever (Acute) Sepsis (Acute) Infection due to human metapneumovirus (hMPV) (Acute) Acute metabolic encephalopathy (Acute) Leukocytosis (Acute) Acute distention of stomach (Acute) Urinary tract infection (Acute) Ileus (Acute) Aspiration pneumonia (Acute) Sepsis (Acute) Acute kidney injury (Acute) Vomiting (Acute) Declining functional status (Acute) abdominal pain, nausea, vomiting-acute gastric distention, left lower lobe pneumonia/infiltrates Patient is significantly more comfortable with NG tube and had a large volume of gastric aspirate. CT scan demonstrates normal-appearing small bowel and listed normal colon patient has significant right colon fecal loading patient with right-sided weakness, history of multiple sclerosis, elevated right hemidiaphragm with significant amount of colon above the liver. Will plan for follow-up KUB in morning to assess degree of gastric distention. If stomach remains distended would consider upper endoscopy. if opinion is gastric distention causing aspiration pneumonia versus pneumonia caused gastric ileus might consider replacing feeding tube if patient felt to be aspirating more frequently with meals. Consider prokinetic agent until then. Also consider GoLYTELY versus Maria Elena lax given right-sided fecal loading, again if imp rovement and gastric distention.
--- NOTE | 2019-05-24 06:45 | RAD_ITS ---
STUDY: X-RAY CHEST REASON FOR EXAM: Female, 64 years old. Shortness of breath TECHNIQUE: Frontal and lateral views of the chest. COMPARISON: 03/25/2019 FINDINGS: Stable elevated right hemidiaphragm. Bilateral blunting of the costophrenic angles, which may be due to small pleural effusion. Mild bibasilar subsegmental atelectasis versus infiltrate. Unremarkable pulmonary vascularity. Normal size heart. There is atherosclerotic calcification of the aortic arch with tortuosity. There are diffuse degenerative changes of the visualized thoracic spine. There is degenerative osteoarthritis of the bilateral shoulders. NG tube in place with good position. RAD/Chest PA and Lateral IMPRESSION: Stable elevated right hemidiaphragm. Bilateral blunting of the costophrenic angles, which may be due to small pleural effusion. Mild bibasilar subsegmental atelectasis versus infiltrate. Electronically Signed: Arsen Eckert MD at 11:42 EDT Tel [phone], Service support ,
[2019-05-24] MEDS: 0.9% NaCl Peripheral Flush Adult/Peds IV ×3 (07:10→14:18)
[2019-05-24] MEDS: Ipratropium/Albuterol Sulfate 3 ML AMPUL.NEB INHALATION ×3 (07:18→18:48)
[2019-05-24] MEDS: 0.9% Normal Saline 1,000 ML 125 ML IV ×2 (08:31→22:18)
[2019-05-24] MEDS: LORazepam 0.5 MG Tablet PO ×2 (08:46→18:02)
--- NOTE | 2019-05-24 09:04 | PCM.PN.SRG ---
Patient Problems: Active and Suspected Problems Leukocytosis (Acute) Acute distention of stomach (Acute) Urinary tract infection (Acute) Ileus (Acute) Aspiration pneumonia (Acute) Sepsis (Acute) Acute kidney injury (Acute) Subjective: no abdominal pain, liquid stool yesterday - Physical Exam General: Alert, Cooperative, No apparent distress Lungs: - - decreased bibasilar, coarse breath sounds left base Abdomen: Soft, Hypoactive Bowel Sounds, - - minimally tender Vital Signs Temp Pulse Resp BP Pulse Ox 98.1 F 93 16 105/49 L 96 05/24/19 08:37 05/24/19 08:37 05/24/19 08:37 05/24/19 08:37 05/24/19 08:37 Oxygen Flow Rate (L/min) 4 Oxygen Delivery Method Nasal Cannula Weight: 70.7 kg Body Mass Index (BMI) 22.4 Finger Stick Blood Glucose 67 Intake and Output for Last 24 Hours 05/22/19 05/23/19 05/24/19 23:59 23:59 23:59 Intake Total 4102.09 / 4287.09 1407.71 / 1407.71 Output Total 3625 / 4275 1200 / 1200 Balance 477.09 / 12.09 207.71 / 207.71 Microbiology Past 72 Hours 05/23/19 11:00 Blood Culture - Preliminary Blood Culture (Wb) - Port 05/23/19 09:35 Streptococcus pneumoniae Antigen (M - Final Urine Catheter - Catheter 05/23/19 09:35 Legionella Antigen - Final Urine Catheter - Catheter Laboratory Tests Past 24 Hrs 05/23/19 05/23/19 05/23/19 08:55 08:55 08:55 WBC 22.7 H RBC 4.56 Hgb 13.6 Hct 41.5 MCV 91.0 MCH 29.8 MCHC 32.8 RDW Std Deviation 53.8 H RDW Coeff of [place]ur[place] 16.2 H Plt Count 235 MPV 9.6 Immature Gran % (Auto) 0.800 Neut % (Auto) 87.4 H Lymph % (Auto) 4.5 L [place] % (Auto) 7.1 Eos % (Auto) 0.0 Baso % (Auto) 0.2 Absolute Neuts (auto) 19.8 H Absolute Lymphs (auto) 1.03 Nucleated RBC % 0 Differential Comment COMMENT Diff Path Review May foll Sodium 136 Potassium 3.7 Chloride 91 L Carbon Dioxide 40.0 H Anion Gap 5 BUN 37 H Creatinine 2.78 H Estim Creat Clear Calc 22.11 Est GFR (MDRD) Af Amer 22 L Est GFR (MDRD) Non-Af 18 L BUN/Creatinine Ratio 13.3 Glucose 110 H Lactic Acid Calcium 9.5 Phosphorus 5.7 H Magnesium 3.5 H Total Bilirubin 0.60 AST 22 ALT 32 Alkaline Phosphatase 100 Troponin I < 0.015 Total Protein 8.4 H Albumin 3.6 Globulin 4.8 H Albumin/Globulin Ratio 0.8 L Lipase 145 Urine Color Urine Clarity Urine pH Ur Specific [place] Urine Protein Urine Glucose (UA) Urine Ketones Urine Occult Blood Urine Nitrite Urine Bilirubin Urine Urobilinogen Ur Leukocyte Esterase Urine RBC Urine WBC Ur Squamous Epith Cells Urine Bacteria Urine Mucus 05/23/19 05/23/19 05/24/19 09:35 12:10 04:34 WBC 12.2 H RBC 3.36 L Hgb 9.9 L Hct 31.4 L MCV 93.5 MCH 29.5 MCHC 31.5 L RDW Std Deviation 55.7 H RDW Coeff of [place] 16.2 H Plt Count 138 L MPV 9.9 Immature Gran % (Auto) 0.300 Neut % (Auto) 76.4 H Lymph % (Auto) 13.4 L [place] % (Auto) 7.8 Eos % (Auto) 1.9 Baso % (Auto) 0.2 Absolute Neuts (auto) 9.3 H Absolute Lymphs (auto) 1.63 Nucleated RBC % 0 Differential Comment Diff Path Review Sodium Potassium Chloride Carbon Dioxide Anion Gap BUN Creatinine Estim Creat Clear Calc Est GFR (MDRD) Af Amer Est GFR (MDRD) Non-Af BUN/Creatinine Ratio Glucose Lactic Acid 1.2 Calcium Phosphorus Magnesium Total Bilirubin AST ALT Alkaline Phosphatase Troponin I Total Protein Albumin Globulin Albumin/Globulin Ratio Lipase Urine Color Yellow Urine Clarity Cloudy Urine pH 6.0 Ur Specific [place] 1.020 Urine Protein 30 H Urine Glucose (UA) Normal Urine Ketones Negative Urine Occult Blood 250 H Urine Nitrite Negative Urine Bilirubin Negative Urine Urobilinogen Normal Ur Leukocyte Esterase 500 H Urine RBC 0 SEEN Urine WBC >100 SEEN Ur Squamous Epith Cells 0 SEEN Urine Bacteria 0 SEEN Urine Mucus 0 SEEN 05/24/19 04:34 WBC RBC Hgb Hct MCV MCH MCHC RDW Std Deviation RDW Coeff of [place]ur[place] Plt Count MPV Immature Gran % (Auto) Neut % (Auto) Lymph % (Auto) [place] % (Auto) Eos % (Auto) Baso % (Auto) Absolute Neuts (auto) Absolute Lymphs (auto) Nucleated RBC % Differential Comment Diff Path Review Sodium 142 Potassium 3.4 L Chloride 103 Carbon Dioxide 32.0 Anion Gap 7 BUN 34 H Creatinine 2.29 H Estim Creat Clear Calc 26.84 Est GFR (MDRD) Af Amer 28 L Est GFR (MDRD) Non-Af 23 L BUN/Creatinine Ratio 14.8 Glucose 79 Lactic Acid Calcium 8.1 L Phosphorus Magnesium Total Bilirubin AST ALT Alkaline Phosphatase Troponin I Total Protein Albumin Globulin Albumin/Globulin Ratio Lipase Urine Color Urine Clarity Urine pH Ur Specific [place] Urine Protein Urine Glucose (UA) Urine Ketones Urine Occult Blood Urine Nitrite Urine Bilirubin Urine Urobilinogen Ur Leukocyte Esterase Urine RBC Urine WBC Ur Squamous Epith Cells Urine Bacteria Urine Mucus Medical Necessity - Tobacco Use Smoking Status: Never smoker Tobacco Use: Non-smoker Assessment/Plan All Active Problems Fever (Acute) Sepsis (Acute) Infection due to human metapneumovirus (hMPV) (Acute) Acute metabolic encephalopathy (Acute) Leukocytosis (Acute) Acute distention of stomach (Acute) Urinary tract infection (Acute) Ileus (Acute) Aspiration pneumonia (Acute) Sepsis (Acute) Acute kidney injury (Acute) Vomiting (Acute) Declining functional status (Acute) abdominal pain, nausea, vomiting-acute gastric distention, left lower lobe pneumonia/infiltrates Patient is significantly more comfortable with NG tube and had a large volume of gastric aspirate. CT scan demonstrates normal-appearing small bowel and listed normal colon patient has significant right colon fecal loading patient with right-sided weakness, history of multiple sclerosis, elevated right hemidiaphragm with significant amount of colon above the liver. KUB this morning demonstrated still significant right colon stool, stomach appeared less distended. Spoke with radiology and planned to obtain Gastrografin through NG tube to assess for possible differential diagnosis of SMA syndrome. this was obtained which seems to indicate significant contrast signal in the stomach with decreased gastric emptying. It also appears to me that the antral region is distorted up towards the right upper quadrant likely from her paralyzed hemidiaphragm area there do not seem to be enough contrast leaving the stomach quickly enough to truly ascertain SMA syndrome. At this point, I would recommend a prokinetic agent. I spoke with Dr. Florez. We will plan for magnesium citrate and attempt to clean out her right colon.
--- NOTE | 2019-05-24 10:14 | PCM.PROGNOTE ---
Patient Problems: Active and Suspected Problems Leukocytosis (Acute) Acute distention of stomach (Acute) Urinary tract infection (Acute) Ileus (Acute) Aspiration pneumonia (Acute) Sepsis (Acute) Acute kidney injury (Acute) Subjective: The patient is a 64-year-old female with an extensive medical history that includes chronic renal failure stage IV, hyperlipidemia, history of TIA, migraine headaches, multiple sclerosis with severe debility/bedbound with right hemiparesis, neurogenic bladder with chronic suprapubic catheter, chronic constipation and iron deficiency anemia who presented to the ED at [facility] on 05/23/19 complaining of nausea/vomiting/abdominal pain with abdominal distention. Vital signs in the emergency department were temperature 98.6, pulse rate 115, blood pressure 128/87, respiratory rate 20 and she was 73% saturated on room air and later 93 to 97% saturated on a 4 L nasal cannula. White blood cell count was elevated at 22.7 with 87% neutrophils. Hemoglobin was 13.6 with normochromic normocytic indices. Platelets were within normal limits at 235,000. The BMP was remarkable for a low chloride at 91 and an elevated serum bicarb at 40. The BUN was 37 and the creatinine was 2.78, up from 2.18 on 05/08/2019. A UA obtained from the suprapubic catheter showed greater than 100 WBCs and was negative nitrite. She was in the hospital in April 2019 with suspected urinary tract infection and the urine grew Morganella morganii, MRSA and Enterococcus faecalis which was thought to be due to colonization rather than infection. CT scan of the abdomen showed moderate gastric distention despite a nasogastric tube. The patient had 3 L of output from the nasogastric tube within a very short period of time after insertion. She was admitted to the hospital with a diagnosis of acute sepsis suspected to be secondary to aspiration from nausea/vomiting/chronic dysphagia. Acute on CRF stage 4, severe ileus and possible UTI vs colonization. All events the past 24 hours of been reviewed. She is afebrile. Blood pressure has ranged from 98/54 to 5/96 since admission. Most recent blood pressure is 98/54 and the patient denies lightheadedness, shortness of breath or chest pain. She is 99% saturated on 4 L nasal cannula. All lab and imaging was personally reviewed. The white blood cell count is 12.2 today, down from 22.7 at admission. Hemoglobin is 9.9 following hydration, down from 13.6 at admission which is high for her. Potassium was low at 3.4 and supplementation was ordered. The creatinine is 2.29, down from 2.78 at admission. GFR is 23. GFR for the past few months has been primarily in the 20s with occasional increased to the low to mid 30s. Serum iron is 18 and the TIBC is 253. Iron saturation is low at 7.1 and the ferritin is 42. The transferrin saturation is 7.11% which is consistent with iron deficiency. HAs been getting thickened hot chocolate at home but thin water.....because they know she aspirates and they do not want sugar in the lungs because it promotes the growth of bacteria? states she has never had PNA but, 1/5 of the right lung is obscured by the markedly elevated R hemidiaphragm? She is on a bowel regimen QOD at home and takes 30 cc of Lactulose every other day. The dose of Baclofen has not been decreased as the renal failure gets worse. she takes Elavil 75 mg QHS for migraines but, has not had a migraine since she started taking Magnesium. The abdomen is much less distended since the NG was placed and the pain is better. Denies nausea now. Denies SOB, not coughing - Physical Exam General: Alert, Oriented x3, Cooperative, No apparent distress HEENT: Atraumatic, PERRLA, - - voice is very soft and she can not project Oral: Moist Mucosa Neck: Supple, No Nodes, Trachea Midline, - - Brisk carotid upstroke with good pulse volume Lungs: Clear to auscultation, Diminished - poor inspiratory effort due to muscle weakness due to MS......markedly diminished in the bases. Not tachypnea, no accessory muscle use Cardiovascular: Regular rate, Regular Rhythm, Normal S1, Normal S2, No murmurs, No rub noted, No Gallop Abdomen: Non-Distended, Hypoactive Bowel Sounds, Tender - minimal tenderness with palpation and non guarding with palpation Extremities: No clubbing, No cyanosis, Edema - of the feet, - Neurological: Cranial nerves II-XII grossly intact, - - R hemiplegia - chronic severe generalized weakness foot drop Psych/Mental Status: Appropriate Vital Signs Temp Pulse Resp BP Pulse Ox 98.1 F 93 16 105/49 L 96 05/24/19 08:37 05/24/19 08:37 05/24/19 08:37 05/24/19 08:37 05/24/19 08:37 Oxygen Flow Rate (L/min) 4 Oxygen Delivery Method Nasal Cannula Weight: 155 lb 13.869 oz Body Mass Index (BMI) 22.4 Finger Stick Blood Glucose 67 Intake and Output for Last 24 Hours 05/22/19 05/23/19 05/24/19 23:59 23:59 23:59 Intake Total 4102.09 / 4287.09 1407.71 / 1407.71 Output Total 3625 / 4275 1200 / 1200 Balance 477.09 / 12.09 207.71 / 207.71 Microbiology Past 72 Hours 05/23/19 11:00 Blood Culture - Preliminary Blood Culture (Wb) - Port 05/23/19 09:35 Streptococcus pneumoniae Antigen (M - Final Urine Catheter - Catheter 05/23/19 09:35 Legionella Antigen - Final Urine Catheter - Catheter Laboratory Tests Past 24 Hrs 05/23/19 05/23/19 05/24/19 08:55 12:10 04:34 WBC 12.2 H RBC 3.36 L Hgb 9.9 L Hct 31.4 L MCV 93.5 MCH 29.5 MCHC 31.5 L RDW Std Deviation 55.7 H RDW Coeff of Niurka 16.2 H Plt Count 138 L MPV 9.9 Immature Gran % (Auto) 0.300 Neut % (Auto) 76.4 H Lymph % (Auto) 13.4 L Jack % (Auto) 7.8 Eos % (Auto) 1.9 Baso % (Auto) 0.2 Absolute Neuts (auto) 9.3 H Absolute Lymphs (auto) 1.63 Nucleated RBC % 0 Sodium Potassium Chloride Carbon Dioxide Anion Gap BUN Creatinine Estim Creat Clear Calc Est GFR (MDRD) Af Amer Est GFR (MDRD) Non-Af BUN/Creatinine Ratio Glucose Lactic Acid 1.2 Calcium Phosphorus 5.7 H Magnesium 3.5 H 05/24/19 04:34 WBC RBC Hgb Hct MCV MCH MCHC RDW Std Deviation RDW Coeff of Niurka Plt Count MPV Immature Gran % (Auto) Neut % (Auto) Lymph % (Auto) Jack % (Auto) Eos % (Auto) Baso % (Auto) Absolute Neuts (auto) Absolute Lymphs (auto) Nucleated RBC % Sodium 142 Potassium 3.4 L Chloride 103 Carbon Dioxide 32.0 Anion Gap 7 BUN 34 H Creatinine 2.29 H Estim Creat Clear Calc 26.84 Est GFR (MDRD) Af Amer 28 L Est GFR (MDRD) Non-Af 23 L BUN/Creatinine Ratio 14.8 Glucose 79 Lactic Acid Calcium 8.1 L Phosphorus Magnesium Medical Necessity - Tobacco Use Smoking Status: Never smoker Tobacco Use: Non-smoker Assessment/Plan All Active Problems Fever (Acute) Sepsis (Acute) Infection due to human metapneumovirus (hMPV) (Acute) Acute metabolic encephalopathy (Acute) Leukocytosis (Acute) Acute distention of stomach (Acute) Urinary tract infection (Acute) Ileus (Acute) Aspiration pneumonia (Acute) Sepsis (Acute) Acute kidney injury (Acute) Vomiting (Acute) Declining functional status (Acute) Impressions 1. abdominal pain, N/V, abdominal distension due to ileus with delayed GI transit. No obstruction on small bowel study. Continue NG drainage. Reglan started to promote gastric emptying. Mag citrate per the NG to stimulate emptying of the large amount of stool accumulated in the R colon. I suspect the delayed transit in the intestine and the chronic constipation are closely related to Elavil, Baclofen and iron....all of which cause constipation. Discussed weaning the Baclofen and Elavil and using IV iron rather than PO to replace iron. They are agreeable. The baclofen level is likely significantly elevated due to the continued high dosing in a pt with stage 3-4 CRF. Would restart after the ileus is resolved at 5 mg TID. 2. acute on CRF stage 3-4. More likely than not due to prerenal azotemia. Creat improving with fluids. Continue IV fluids. 3. severe sepsis due to possible UTI vs colonization and Staph EPI bacteremia in 2 of 2 BC's. She has a hx of MRSA in the past and she is a frequent inpt at the hospital. Vanco has been added. will continue the Zosyn until the final on the urine culture is back. Consult Dr. Wright regarding bacteremia. Get an ECHO to r/o endocarditis. recheck BC's in the AM 4. Hypokalemia - supplementation ordered 5. Iron deficiency anemia - Venofer ordered...it may be bet to give IV iron in the future so as not to contribute to the constipation 6. MS - on no current treatment for MS - stable 7. stage I diastolic dysfunction/HLD/migraines/neurogenic bladder with suprapubic catheter present complicate care, prognosis and tx Recheck the lab in the AM Appreciate Dr. Vazquez's consult Code Visit Inpatient E&M: 93965 Subs Hosp L3
--- NOTE | 2019-05-24 12:00 | CASEMGMT ---
SHARLENE LATHAM Face to Face with Siva for initial transition planning/care coordination assessment. SHARLENE LATHAM introduced self and role at [facility]. Patient is currently at testing, Siva is HPOA Care providers, pharmacy, and demographics verified. wishes for patient to discharge home with HHC with [facility], whom patient has had previously. states he has no further needs or concerns at this time. CM to follow for discharge planning needs that may arise. PCP: Tere Specialists: [facility]; [facility]; [facility] Preferred Pharmacy: [facility] Insurance: [facility] Prescription Benefit: yes Living Will/HPOA: Yes, Siva Sharp LNOK: Living Arrangements: Patient lives with in single story home with ramp to enter the home. assists patient with ADLs. Transportation: DME/HHC: Patient has shower chair, BSC, wheelchair, and boris lift at home. Patient has previously had HHC in past through [facility], 's preferred HHC. Patient has been to TCU in the past. Disposition Plan: Patient to discharge home with HHC, family support, and follow-up plans in place. Kelsie DUONG, RN, CM
--- NOTE | 2019-05-24 13:00 | RAD_ITS ---
CLINICAL HISTORY: Female, 64 years old. Abdominal distention PROCEDURE: Small bowel follow-through TECHNIQUE: (All elements of maximal sterile barrier technique followed, including US elements as applicable) Water soluble contrast was administered due to the patient's nasogastric tube and multiple images of the abdomen were obtained. Next FINDINGS: Contrast is seen within the stomach. There is delayed passage of contrast from the stomach and the duodenum not seen until the 75 minute film. There is opacification of multiple loops of small bowel without evidence of bowel obstruction. Eventually barium is seen within the colon RAD/Small Bowel Series Only IMPRESSION: Delayed gastric emptying but no bowel obstruction. Electronically Signed: Bill Carter MD at 14:33 EDT Tel , Service support ,
[2019-05-24 13:45] LABS: Pathologist Review Reviewed
[2019-05-24] MEDS: Acetaminophen 325 MG Tablet 650 MG PO (13:58)
[2019-05-24] MEDS: Menthol/Lanolin/Calamine/Znox 113 GM Tube 1 APPLIC TOPICAL ×2 (14:04→22:14)
[2019-05-24] MEDS: Fluticasone 0.05% 1 SPRAY NASAL.SRY NASAL ×2 (14:06→22:35)
[2019-05-24] MEDS: Nystatin Powder 15gm Bottle 1 APPLIC TOPICAL ×2 (14:09→22:13)
[2019-05-24] MEDS: Potassium Chloride 10mEq/100mL 10 MEQ/100 ML IV.SOLN. 100 MEQ IV BOLUS ×3 (14:15→16:11)
[2019-05-24 14:25] LABS: Hematocrit 30.7 % (37-47); Hemoglobin 9.7 g/dL (12.0-15.0)
[2019-05-24] MEDS: Vancomycin IV 1,000 MG/200 ML BAG 200 MG IV (17:54)
[2019-05-24] MEDS: Metoclopramide 10 MG/2 ML Vial 5 MG IV (17:59)
[2019-05-24] MEDS: Magnesium Citrate 300 ML NG (18:00)
[2019-05-24 18:12] LABS: Ferritin 42 ng/mL (8-252); Iron 18 ug/dL (50-170); Iron Binding Capacity,Total 253 ug/dL (250-450); PERCENT IRON SATURATION 7.1 % (15.0-55.0)
--- NOTE | 2019-05-24 20:28 | ECHOD_ITS ---
Reason For Study: Bacteremia Procedure This was a 2D Doppler, Color Flow transthoracic echocardiogram. Patient scanned sitting upright. Exam performed portable in patient room. Left Ventricle Normal size and thickness. The estimated ejection fraction is 60 %. No evidence for diastolic dysfunction. No regional wall motion abnormalities noted. Right Ventricle Normal RV size. Normal systolic function. Atria Normal left atrium. Normal right atrium. No doppler evidence for ASD. Mitral Valve There is mild mitral annular calcification. There is no mitral valve stenosis. No mitral valve insufficiency. Tricuspid Valve There is no tricuspid stenosis. Trivial tricuspid valve insufficiency. Pulmonary artery systolic pressure is 30-35 mmHg. Aortic Valve There is no aortic stenosis. No aortic valve insufficiency. Pulmonic Valve There is no pulmonic valvular stenosis. No pulmonic valve insufficiency. Great Vessels Normal aortic root. Pericardium/Pleural No pericardial effusion. MMode/2D Measurements & Calculations LVIDd: 4.1 cm IVSd: 1.2 cm LA dimension: 3.7 cm LVIDs: 2.7 cm LVPWd: 0.90 cm FS: 34.0 % LAV(MOD-bp): 42.7 ml LA A4 area: 15.7 cm2 LAV(MOD-bp) Indexed: 22.8 ml/m2 LAV(MOD-sp2): 46.3 ml LAV(MOD-sp4): 40.2 ml Time Measurements MV dec time: 0.17 sec Doppler Measurements & Calculations MV E max huey: 94.4 cm/sec Lat Peak E' Huey: 14.6 cm/sec Med Peak E' Huey: 10.5 cm/sec MV A max huey: 111.0 cm/sec E/E' lat: 6.5 E/E' med: 9.0 MV E/A: 0.85 MV V2 max: 119.8 cm/sec MV P1/2t max huey: 111.6 cm/sec Ao V2 max: 154.2 cm/sec MV max P.7 mmHg MV P1/2t: 45.4 msec Ao max P.5 mmHg MV V2 mean: 72.0 cm/sec MV dec slope: 720.7 cm/sec2 Ao V2 mean: 98.5 cm/sec MV mean P.5 mmHg MVA(P1/2t): 4.9 cm2 Ao mean P.5 mmHg MV V2 VTI: 20.3 cm Ao V2 VTI: 27.7 cm LV V1 max: 108.0 cm/sec PA V2 max: 75.5 cm/sec TR max huey: 289.1 cm/sec LV V1 max P.7 mmHg TR max P.4 mmHg LV V1 mean P.1 mmHg LV V1 mean: 66.8 cm/sec LV V1 VTI: 24.1 cm Interpretation Summary The estimated ejection fraction is 60 %. No evidence for diastolic dysfunction. Pulmonary artery systolic pressure is 30-35 mmHg. No vegetations seen Ordering Physician: Fadumo Florez Referring Physician: Alexandria Carranza M.D. Performed By: Kamari Clemens RCS
--- NOTE | 2019-05-24 20:33 | PCM.RX.CS ---
Consult Pharmacy has been consulted to manage selected antiobiotic: Vancomycin Type of Consult: New start Prior Doses of Antibiotics Received/Current Regimen: NONE Labs: Sodium 142 mmol/L (136-145) 05/24/19 04:34 Potassium 3.4 mmol/L (3.5-5.1) L 05/24/19 04:34 Chloride 103 mmol/L (98-107) 05/24/19 04:34 Carbon Dioxide 32.0 mmol/L (21.0-32.0) 05/24/19 04:34 7 (5-15) 05/24/19 04:34 BUN 34 mg/dL (7-18) H 05/24/19 04:34 2.29 mg/dL (0.55-1.02) H 05/24/19 04:34 Est GFR (MDRD) Af Amer 28 mL/min (>60) L 05/24/19 04:34 Est GFR (MDRD) Non-Af 23 mL/min (>60) L 05/24/19 04:34 14.8 RATIO (10-20) 05/24/19 04:34 Glucose 79 mg/dL (74-106) 05/24/19 04:34 Microbiology: Microbiology 05/23/19 11:00 Blood Culture (Wb) - Anticubital Left Blood Culture - Preliminary 05/23/19 11:00 Blood Culture (Wb) - Port Bacteria Detection (PCR) - Final Staphylococcus epidermidis mecA Resistance Marker 05/23/19 11:00 Blood Culture (Wb) - Port Blood Culture - Preliminary 05/23/19 09:35 Urine Catheter - Catheter Urine Culture - Preliminary Gram negative michell Gram positive organism 05/23/19 09:35 Urine Catheter - Catheter Streptococcus pneumoniae Antigen (M - Final 05/23/19 09:35 Urine Catheter - Catheter Legionella Antigen - Final Weight used for dosin.7 kg Goal Trough: 15-20 mcg/mL Pharmacy Plan for Drug Dosing: PLAN/RECOMMENDATIONS 1. Vancomycin initial dose 1000mg IV x1 05/24/19 @1800 2. Vancomycin 1250mg IV Q24h 05/25/19 @1800 3. Trough prior to 3rd total dose per protocol 05/26/19 @1730 4. Pharmacy Service will continue to monitor and adjust dosing as required.
[2019-05-24] MEDS: Amitriptyline 25 MG Tablet 50 MG PO (22:14)
[2019-05-24] MEDS: Acetaminophen 650 MG Suppository RECTAL (22:15)
[2019-05-25] VITALS (12 sets, daily range): BP systolic 114–161; BP diastolic 58–103; PULSE 86–107; RESP 14–20; TEMP 36.6–37.1; O2SAT 94–99
[2019-05-25] MEDS: 0.9% NaCl Peripheral Flush Adult/Peds IV ×5 (00:34→11:59)
[2019-05-25] MEDS: Metoclopramide 10 MG/2 ML Vial 5 MG IV ×3 (00:34→12:01)
[2019-05-25] MEDS: 0.9% Normal Saline 1,000 ML 125 ML IV ×2 (06:22→15:02)
[2019-05-25 06:37] LABS: Absolute Lymphocyte Count 0.88 X10^3/uL (0.83-4.51); Absolute Neutrophil Count 7.5 X10^3/uL (2.0-7.7); Basophil# 0.06 X10^3/uL; Basophil% 0.6 % (0-1); Eosinophil# 0.19 X10^3/uL; Hematocrit 31.9 % (37-47); Hemoglobin 9.8 g/dL (12.0-15.0); Lymphocyte # 0.88 X10^3/ul (4.0); Lymphocyte % 9.3 % (19-41); Mean Corp Hgb Conc 30.7 g/dL (32-36); Mean Corpuscular Hgb 29.3 pg (27.0-32.0); Mean Corpuscular Volume 95.5 fL (81-99); Monocyte% 8.4 % (0-10); NRBC Flagged by Analyzer 0 % (0-5); Neutrophil % 79.2 % (47-70); Platelet Count 147 K/mm3 (150-450); RBC Distribution Width CV 15.9 % (11.6-14.6); RBC Distribution Width SD 56.6 fl (35.1-43.9); Red Blood Count 3.34 M/mm3 (4.2-5.4); White Blood Count 9.5 K/mm3 (4.4-11.0)
[2019-05-25 07:00] LABS: Anion Gap 9 (5-15); BUN 31 mg/dL (7-18); BUN/Creat Ratio 16.4 RATIO (10-20); Calcium,Total 8.5 mg/dL (8.5-10.1); Chloride 109 mmol/L (98-107); Creatinine, Serum 1.89 mg/dL (0.55-1.02); EST Glomerular Filtration Rate 28 mL/min (>60); Est Glom Filt Rate - Afr Amer 34 mL/min (>60); Estimated Creatinine Clearance 32.52 ml/min; Glucose 51 mg/dL (74-106); Potassium 3.9 mmol/L (3.5-5.1); Sodium Level 145 mmol/L (136-145)
[2019-05-25] MEDS: Ipratropium/Albuterol Sulfate 3 ML AMPUL.NEB INHALATION ×3 (07:06→19:22)
[2019-05-25] MEDS: LORazepam 0.5 MG Tablet PO ×2 (08:56→22:17)
[2019-05-25] MEDS: Menthol/Lanolin/Calamine/Znox 113 GM Tube 1 APPLIC TOPICAL ×2 (09:17→22:20)
[2019-05-25] MEDS: Aspirin 300 MG Suppository RECTAL (09:17)
[2019-05-25] MEDS: Nystatin Powder 15gm Bottle 1 APPLIC TOPICAL ×2 (09:17→22:17)
[2019-05-25] MEDS: Fluticasone 0.05% 1 SPRAY NASAL.SRY NASAL (09:29)
--- NOTE | 2019-05-25 09:49 | CASEMGMT ---
Durable POA form scanned into summary tab, names as durable POA. This document does include a provision stating Mr. Sharp is pt's customer response representative under HIPAA. LISBETH Dhillon
--- NOTE | 2019-05-25 10:04 | PCM.HP.ID ---
Problem List (1) Sepsis Status: Acute Reason for Consult: (+) bcx Consulted by: Dr. Lerner History of Present Illness: The patient is a 64 year old F with MS and chronic elias, presented 05/23 with 30 hours of n/v, severe cramping abd pain, decreased mental status. Has port in place, no redness or swelling. Came to ED, no fevers here, started on azithro and ceftriaxone. Seen by surgery for ileus. Abx changed to vanc/zosyn. Wbc and cr improved, mental status close to baseline now, history obtained from at bedside. ROS limited due to MS. - Medical History Past Medical History (Chronic Problems): Chronic Problems Neurogenic bladder (Chronic) MRSA colonization (Chronic) Bilateral hydronephrosis (Chronic) Iron deficiency anemia (Chronic) Hypomagnesemia (Chronic) Dehydration (Chronic) Constipation (Chronic) Hydronephrosis (Chronic) Bilateral. Complicated urinary tract infection (Chronic) Chronic suprapubic catheter. Vitamin D deficiency (Chronic) Muscle spasm (Chronic) OAB (overactive bladder) (Chronic) Allergic rhinitis (Chronic) Insomnia (Chronic) Hyperlipidemia (Chronic) CKD (chronic kidney disease) stage 4, GFR 15-29 ml/min (Chronic) Transient ischemic attack (Chronic) Multiple sclerosis (Chronic) Right hemiparesis (Chronic) Migraine headache (Chronic) Allergies/Adverse Reactions: Allergies ciprofloxacin [From Cipro] Adverse Reaction (Verified 05/23/19 07:49) hypotension interacts w/ zanaflex and baclofen doxycycline Adverse Reaction (Verified 05/23/19 07:49) hypotension interacts w/ zanaflex and baclofen levofloxacin [From Levaquin] Adverse Reaction (Verified 05/23/19 07:49) hypotension interacts w/ zanaflex and baclofen morphine Adverse Reaction (Verified 05/23/19 07:49) hallucinations piperacillin [From Zosyn] Adverse Reaction (Verified 05/23/19 07:49) hypotension interacts w/ zanaflex and baclofen sulfamethoxazole [From Bactrim] Adverse Reaction (Verified 05/23/19 07:49) hypotension interacts w/ zanaflex and baclofen tazobactam [From Zosyn] Adverse Reaction (Verified 05/23/19 07:49) hypotension interacts w/ zanaflex and baclofen trimethoprim [From Bactrim] Adverse Reaction (Verified 05/23/19 07:49) hypotension interacts w/ zanaflex and baclofen vancomycin Adverse Reaction (Verified 05/23/19 07:49) developed toxic levels Home Medications: Ambulatory Orders Medication Instructions Recorded Aspirin E.C. [Ecotrin] 81 mg PO QHS 12/04/16 Bisacodyl [Dulcolax] 10 mg RECTAL DAILY PRN 07/01/18 Calcitriol [Rocaltrol] 0.25 mcg PO QHS 07/01/18 Acetaminophen [Tylenol] 1,000 mg PO Q6H PRN PRN 02/15/19 Fluticasone 0.05% [Flonase Nasal 1 spray NASAL BID 02/26/19 [place]] Mineral Oil/Petrolatum,White 1 applic TOPICAL BID PRN PRN 02/26/19 [Eucerin] Albuterol Aerosols [Ventolin 2.5 mg INHALATION Q6H PRN PRN 03/25/19 Aerosols] Lactulose [Chronulac] 60 gm PO QODAY 03/25/19 Menthol [Bengay Vanishing Scent] 1 applic TOPICAL TID PRN PRN 03/25/19 Menthol/Lanolin/Calamine/Znox 1 applic TOPICAL BID 03/25/19 [Calmoseptine Ointment] Nystatin Powder [Mycostatin Powder] 1 applic TOPICAL BID #1 bottle 03/29/19 Amitriptyline HCl 75 mg PO QHS 05/23/19 Atorvastatin Calcium [Lipitor] 40 mg PO QHS 05/23/19 Baclofen 20 mg PO QHS 05/23/19 Baclofen [Lioresal] 1 tab PO BID 05/23/19 Cholecalciferol (Vitamin D3) 5,000 unit PO DAILY 05/23/19 [Vitamin D3] Fexofenadine HCl [Brook Allergy] 180 mg PO DAILY 05/23/19 Iron Polysaccharide Complex 150 mg PO DAILY 05/23/19 [Ferrex 150] Krill Oil 500 mg PO DAILY 05/23/19 L.acidoph,Paracasei, B.lactis 1 ea PO QHS 05/23/19 [Probiotic] Magnesium Oxide [Mag-Ox 400] 300 mg PO QHS 05/23/19 Melatonin 5 mg PO QHS 05/23/19 Vitamin B Complex 1 ea PO DAILY 05/23/19 - Social History Tobacco Use: non-smoker Vital Signs Temp Pulse Resp BP Pulse Ox 98.8 F 102 H 20 H 158/103 H 95 05/25/19 08:59 05/25/19 08:59 05/25/19 08:59 05/25/19 08:59 05/25/19 08:59 Oxygen Flow Rate (L/min) 4 Oxygen Delivery Method Nasal Cannula Weight: 70.7 kg Body Mass Index (BMI) 22.4 Finger Stick Blood Glucose 67 Microbiology Past 72 Hours 05/23/19 09:35 Urine Culture - Preliminary Urine Catheter - Catheter Gram negative michell Staphylococcus aureus 05/23/19 11:00 Bacteria Detection (PCR) - Final Blood Culture (Wb) - Port Staphylococcus epidermidis mecA Resistance Marker Blood Culture - Preliminary Staphylococcus epidermidis 05/23/19 11:00 Blood Culture - Preliminary Blood Culture (Wb) - Anticubital Left Staphylococcus species 05/23/19 09:35 Streptococcus pneumoniae Antigen (M - Final Urine Catheter - Catheter 05/23/19 09:35 Legionella Antigen - Final Urine Catheter - Catheter Laboratory Tests Past 24 Hrs 05/23/19 05/24/19 05/24/19 08:55 04:34 14:15 WBC RBC Hgb 9.7 L Hct 30.7 L MCV MCH MCHC RDW Std Deviation RDW Coeff of Niurka Plt Count MPV Immature Gran % (Auto) Neut % (Auto) Lymph % (Auto) [place] % (Auto) Eos % (Auto) Baso % (Auto) Absolute Neuts (auto) Absolute Lymphs (auto) Nucleated RBC % Diff Path Review Reviewed Sodium Potassium Chloride Carbon Dioxide Anion Gap BUN Creatinine Estim Creat Clear Calc Est GFR (MDRD) Af Amer Est GFR (MDRD) Non-Af BUN/Creatinine Ratio Glucose Calcium Iron 18 L TIBC 253 Iron Saturation 7.1 L Ferritin 42 05/25/19 05/25/19 06:20 06:20 WBC 9.5 RBC 3.34 L Hgb 9.8 L Hct 31.9 L MCV 95.5 MCH 29.3 MCHC 30.7 L RDW Std Deviation 56.6 H RDW Coeff of Niurka 15.9 H Plt Count 147 L MPV 10.0 Immature Gran % (Auto) 0.500 Neut % (Auto) 79.2 H Lymph % (Auto) 9.[address] [place] % (Auto) 8.4 Eos % (Auto) 2.0 Baso % (Auto) 0.6 Absolute Neuts (auto) 7.5 Absolute Lymphs (auto) 0.88 Nucleated RBC % 0 [address] Review Sodium 145 Potassium 3.9 Chloride 109 H Carbon Dioxide 27.0 Anion Gap 9 BUN 31 H Creatinine 1.89 H Estim Creat Clear Calc 32.52 Est GFR (MDRD) Af Amer 34 L Est GFR (MDRD) Non-Af 28 L BUN/Creatinine Ratio 16.4 Glucose 51 L Calcium 8.5 Iron TIBC Iron Saturation Ferritin - Other Studies Radiology: [] reviewed Other Studies: [] Route of nutrition/ use of supplements: [] Nutritional Intake: [] IV Site: [] Elias Catheter: [] - Physical Exam General: Alert, Cooperative, No apparent distress HEENT: Atraumatic, PERRLA, EOMI Neck: Supple, No Nodes Lungs: Clear to auscultation, Normal air movement Cardiovascular: Regular rate, Regular Rhythm Abdomen: Soft, Non Tender, Non-Distended Extremities: Edema - mild Skin: No rashes IV Site: Central Line, without redness Musculoskeletal: No Tenderness to Palpation of Joints or Extremities - Assessment/Plan Antibiotics: [] Assessment/Plan: [] Active and Suspected Problems Leukocytosis (Acute) Acute distention of stomach (Acute) Urinary tract infection (Acute) Ileus (Acute) Aspiration pneumonia (Acute) Sepsis (Acute) Acute kidney injury (Acute) Sepsis - improved. Cr better, wbc normalized, hr improved. Unclear source. Bcx x2 with staph, pcr shows MRSE. Does have port in place. It is possible she has 2 different contaminants. Ucx with colonization, now showing staph aureus and GNR. Abd much improved. Dr. Vazquez following. Cont vanc/zosyn for now. Will follow, thank you.
[2019-05-25] MEDS: 0.9% NaCl IVPB Med Flush (250 mL) 15 ML IV ×2 (10:15→12:00)
--- NOTE | 2019-05-25 11:01 | CON.PCM_ITS ---
Problem List (1) Neurogenic bladder Status: Chronic (2) Urinary tract infection Status: Acute (3) Acute kidney injury Status: Acute Reason for Consult Date of Consultation: 05/25/19 Reason for Consultation: recurrent UTI, neurogenic bladder History of Present Illness: The patient is a 64 year old F with a long-standing history of multiple scle rosis who was admitted with sepsis. Urologically, she had a suprapubic tube inserted in 2017. She is not on any clear prophylactic measures including bladder irrigations aside from every 4 weekly suprapubic tube changes. She has had issues with elaine gross hematuria requiring surgical intervention within past 2 years. She has had essentially asymptomatic urinary tract infection every other month for the past 8 months. 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 It seems that she has lots of mucus in her urine. Past Medical History Past Medical History (Chronic Problems): Chronic Problems Neurogenic bladder (Chronic) MRSA colonization (Chronic) Bilateral hydronephrosis (Chronic) Iron deficiency anemia (Chronic) Hypomagnesemia (Chronic) Dehydration (Chronic) Constipation (Chronic) Hydronephrosis (Chronic) Bilateral. Complicated urinary tract infection (Chronic) Chronic suprapubic catheter. Vitamin D deficiency (Chronic) Muscle spasm (Chronic) OAB (overactive bladder) (Chronic) Allergic rhinitis (Chronic) Insomnia (Chronic) Hyperlipidemia (Chronic) CKD (chronic kidney disease) stage 4, GFR 15-29 ml/min (Chronic) Transient ischemic attack (Chronic) Multiple sclerosis (Chronic) Right hemiparesis (Chronic) Migraine headache (Chronic) Allergies ciprofloxacin [From Cipro] Adverse Reaction (Verified 05/23/19 07:49) hypotension interacts w/ zanaflex and baclofen doxycycline Adverse Reaction (Verified 05/23/19 07:49) hypotension interacts w/ zanaflex and baclofen levofloxacin [From Levaquin] Adverse Reaction (Verified 05/23/19 07:49) hypotension interacts w/ zanaflex and baclofen morphine Adverse Reaction (Verified 05/23/19 07:49) hallucinations piperacillin [From Zosyn] Adverse Reaction (Verified 05/23/19 07:49) hypotension interacts w/ zanaflex and baclofen sulfamethoxazole [From Bactrim] Adverse Reaction (Verified 05/23/19 07:49) hypotension interacts w/ zanaflex and baclofen tazobactam [From Zosyn] Adverse Reaction (Verified 05/23/19 07:49) hypotension interacts w/ zanaflex and baclofen trimethoprim [From Bactrim] Adverse Reaction (Verified 05/23/19 07:49) hypotension interacts w/ zanaflex and baclofen vancomycin Adverse Reaction (Verified 05/23/19 07:49) developed toxic levels Home Medications: Ambulatory Orders Medication Instructions Recorded Aspirin E.C. [Ecotrin] 81 mg PO QHS 12/04/16 Bisacodyl [Dulcolax] 10 mg RECTAL DAILY PRN 07/01/18 Calcitriol [Rocaltrol] 0.25 mcg PO QHS 07/01/18 Acetaminophen [Tylenol] 1,000 mg PO Q6H PRN PRN 02/15/19 Fluticasone 0.05% [Flonase Nasal 1 spray NASAL BID 02/26/19 Peridot] Mineral Oil/Petrolatum,White 1 applic TOPICAL BID PRN PRN 02/26/19 [Eucerin] Albuterol Aerosols [Ventolin 2.5 mg INHALATION Q6H PRN PRN 03/25/19 Aerosols] Lactulose [Chronulac] 60 gm PO QODAY 03/25/19 Menthol [Bengay Vanishing Scent] 1 applic TOPICAL TID PRN PRN 03/25/19 Menthol/Lanolin/Calamine/Znox 1 applic TOPICAL BID 03/25/19 [Calmoseptine Ointment] Nystatin Powder [Mycostatin Powder] 1 applic TOPICAL BID #1 bottle 03/29/19 Amitriptyline HCl 75 mg PO QHS 05/23/19 Atorvastatin Calcium [Lipitor] 40 mg PO QHS 05/23/19 Baclofen 20 mg PO QHS 05/23/19 Baclofen [Lioresal] 1 tab PO BID 05/23/19 Cholecalciferol (Vitamin D3) 5,000 unit PO DAILY 05/23/19 [Vitamin D3] Fexofenadine HCl [Brook Allergy] 180 mg PO DAILY 05/23/19 Iron Polysaccharide Complex 150 mg PO DAILY 05/23/19 [Ferrex 150] Krill Oil 500 mg PO DAILY 05/23/19 L.acidoph,Paracasei, B.lactis 1 ea PO QHS 05/23/19 [Probiotic] Magnesium Oxide [Mag-Ox 400] 300 mg PO QHS 05/23/19 Melatonin 5 mg PO QHS 05/23/19 Vitamin B Complex 1 ea PO DAILY 05/23/19 Surgical History: adenoidectomy, tonsillectomy, - - Right shoulder surgery, ORIF right wrist, suprapubic catheter placement, Port placement. 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 INCISING History: No pertinent SUPERVISOR INCISING history Lives: With Family Smoking Status: Never smoker Tobacco Use: Non-smoker Alcohol: None Drugs: None - *Family History Maternal History Items: - - Osteoporosis Paternal History Items: Heart Disease, - - HLD Review of Systems Eyes: Denies: Vision Change HEENT: Reports: - - Not inclined to speak much today, relating most of the information Cardiovascular: Denies: Chest Pain Gastrointestinal: Reports: Dyspepsia, Vomiting, - - NG tube currently in place Genitourinary: Reports: Retention, - - Suprapubic tube Patient Problems: Active and Suspected Problems Leukocytosis (Acute) Acute distention of stomach (Acute) Urinary tract infection (Acute) Ileus (Acute) Aspiration pneumonia (Acute) Sepsis (Acute) Acute kidney injury (Acute) - Physical Exam General: Alert, Cooperative, No apparent distress HEENT: Atraumatic, Normocephalic Oral: Dry Mucosa Lungs: Normal air movement Cardiovascular: Regular rate Abdomen: Soft Extremities: - - Upper extremity contractions present Musculoskeletal: Muscle Wasting Psych/Mental Status: Appropriate Vital Signs Temp Pulse Resp BP Pulse Ox 98.8 F 102 H 20 H 158/103 H 95 05/25/19 08:59 05/25/19 08:59 05/25/19 08:59 05/25/19 08:59 05/25/19 08:59 Oxygen Flow Rate (L/min) 4 Oxygen Delivery Method Nasal Cannula Weight: 70.7 kg Body Mass Index (BMI) 22.4 Finger Stick Blood Glucose 67 Intake and Output for Last 24 Hours 05/23/19 05/24/19 05/25/19 23:59 23:59 23:59 Intake Total 4102.09 / 4287.09 4198.33 / 4198.33 1738.17 / 1738.17 Output Total 3625 / 4275 2650 / 2650 720 / 720 Balance 477.09 / 12.09 1548.33 / 1548.33 1018.17 / 1018.17 Microbiology Past 72 Hours 05/23/19 09:35 Urine Culture - Preliminary Urine Catheter - Catheter Gram negative michell Staphylococcus aureus 05/23/19 11:00 Bacteria Detection (PCR) - Final Blood Culture (Wb) - Port Staphylococcus epidermidis mecA Resistance Marker Blood Culture - Preliminary Staphylococcus epidermidis 05/23/19 11:00 Blood Culture - Preliminary Blood Culture (Wb) - Anticubital Left Staphylococcus species 05/23/19 09:35 Streptococcus pneumoniae Antigen (M - Final Urine Catheter - Catheter 05/23/19 09:35 Legionella Antigen - Final Urine Catheter - Catheter Laboratory Tests Past 24 Hrs 05/23/19 05/24/19 05/24/19 08:55 04:34 14:15 WBC RBC Hgb 9.7 L Hct 30.7 L MCV MCH MCHC RDW Std Deviation RDW Coeff of Niurka Plt Count MPV Immature Gran % (Auto) Neut % (Auto) Lymph % (Auto) [place] % (Auto) Eos % (Auto) Baso % (Auto) Absolute Neuts (auto) Absolute Lymphs (auto) Nucleated RBC % Diff Path Review Reviewed Sodium Potassium Chloride Carbon Dioxide Anion Gap BUN Creatinine Estim Creat Clear Calc Est GFR (MDRD) Af Amer Est GFR (MDRD) Non-Af BUN/Creatinine Ratio Glucose Calcium Iron 18 L TIBC 253 Iron Saturation 7.1 L Ferritin 42 05/25/19 05/25/19 06:20 06:20 WBC 9.5 RBC 3.34 L Hgb 9.8 L Hct 31.9 L MCV 95.5 MCH 29.3 MCHC 30.7 L RDW Std Deviation 56.6 H RDW Coeff of Niurka 15.9 H Plt Count 147 L MPV 10.0 Immature Gran % (Auto) 0.500 Neut % (Auto) 79.2 H Lymph % (Auto) 9.3 L [place] % (Auto) 8.4 Eos % (Auto) 2.0 Baso % (Auto) 0.6 Absolute Neuts (auto) 7.5 Absolute Lymphs (auto) 0.88 Nucleated RBC % 0 Diff Path Review Sodium 145 Potassium 3.9 Chloride 109 H Carbon Dioxide 27.0 Anion Gap 9 BUN 31 H Creatinine 1.89 H Estim Creat Clear Calc 32.52 Est GFR (MDRD) Af Amer 34 L Est GFR (MDRD) Non-Af 28 L BUN/Creatinine Ratio 16.4 Glucose 51 L Calcium 8.5 Iron TIBC Iron Saturation Ferritin Assessment/Plan All Active Problems Fever (Acute) Sepsis (Acute) Infection due to human metapneumovirus (hMPV) (Acute) Acute metabolic encephalopathy (Acute) Leukocytosis (Acute) Acute distention of stomach (Acute) Urinary tract infection (Acute) Ileus (Acute) Aspiration pneumonia (Acute) Sepsis (Acute) Acute kidney injury (Acute) Vomiting (Acute) Declining functional status (Acute) Neurogenic bladder, recurrent UTIs, left renal calculi, suprapubic tube since 2016 Plan for full evaluation with cystoscopy and with addition of regular bladder irrigations Continue regular every 4 week suprapubic tube changes Will discuss management of right renal stones as out patient My office information was given to the patient's and he will make an appointment to follow-up with me after she is discharged. Thank you for the consult, will be available as needed during this admission
--- NOTE | 2019-05-25 11:35 | RAD_ITS ---
STUDY: X-RAY - ABDOMEN/PELVIS REASON FOR EXAM: Female, 64 years old. Abdominal distention TECHNIQUE: Single AP view of the abdomen / pelvis. COMPARISON: 05/24/2019 FINDINGS: Nasogastric tube with tip in the right upper quadrant likely in the antrum of the stomach. There is an unremarkable bowel gas pattern. Administered oral contrast throughout the colon The visualized liver, spleen and kidneys are grossly normal in size and morphology. Normal soft tissue structures. Normal visualized osseous structures. RAD/Abdomen Single View IMPRESSION: 1. Nasogastric tube with the tip in the right upper quadrant likely in the antrum the stomach. 2. Oral contrast throughout the colon. 3. No bowel obstruction. Electronically Signed: Bill Carter MD at 12:55 EDT Tel , Service support ,
--- NOTE | 2019-05-25 11:35 | RAD_ITS ---
STUDY: X-RAY CHEST REASON FOR EXAM: Female, 64 years old. Chest pain TECHNIQUE: Single AP portable view of the chest. COMPARISON: 05/24/2019 FINDINGS: Nasogastric tube which is unchanged. Left subclavian chest port which is unchanged. The patient is rotated to the right. The lungs are clear and expanded. Elevated right hemidiaphragm which is unchanged. Normal size heart. Normal mediastinum and ramy. Normal visualized pulmonary arteries. Normal visualized aortic arch and descending thoracic aorta. Normal visualized thoracic spine. Normal visualized ribs, clavicles, and shoulders. There is no demonstrated abnormality of the visualized soft tissue structures of the upper abdomen. RAD/Chest 1 View IMPRESSION: No change from 05/24/2019. Electronically Signed: Bill Carter MD at 12:56 EDT Tel , Service support ,
[2019-05-25] MEDS: Lactulose 20 GM/30 ML UDC PO ×2 (14:18→22:18)
--- NOTE | 2019-05-25 14:25 | CHAPLAIN ---
Type of Pastoral Visit ___ Initial Visit _x__ Follow-up Visit ___ On-call Visit ___ General Patient Visit ___ Spiritual Assessment ___ Family Conference ___ Bereavement ___ Rapid Response ___ Code Blue ___ Other (describe below) Pastoral Care Referral From _x__ Patient ___ Family ___ Nurse ___ Physician ___ Software Test Engineer ___ Pot Feeder ___ Other (describe below) Sacrament/Intervention _x__ Active listening ___ Anointing ___ Faith ___ Bereavement ___ Communion ___ Justine exploration ___ ___ Life review _x__ Prayer ___ Reconciliation ___ Sacrament of Sick _x__ Supportive presence ___ Wedding ___ Other (describe below) Pastoral Comments
--- NOTE | 2019-05-25 16:24 | PN_ITS ---
Patient Problems: Active and Suspected Problems Leukocytosis (Acute) Acute distention of stomach (Acute) Urinary tract infection (Acute) Ileus (Acute) Aspiration pneumonia (Acute) Sepsis (Acute) Acute kidney injury (Acute) Subjective: Patient was seen and examined today, I talked with general surgery about her care, I also talked at length with the patient's and the patient about resuming diet, according to the patient's , she has failed previous swallowing exams but is never been hospitalized for aspiration pneumonia, he would like the patient to have oral intake and the patient also confirms this and so I have decided to place the patient on nectar thickened liquids at this time, surgery okayed her NG tube being removed, they requested a gastric emptying study be performed and I have ordered this for tomorrow. I also talked with infectious diseases about antibiotic coverage, they prefer to keep the pa tient on Zosyn and vancomycin for now. Echocardiogram does not show any obvious vegetations. Finally, patient still has quite a bit of stool present and I placed her on lactulose, her Elavil has been stopped due to concerns of constipation on this medication and she remains off baclofen at this time- patient does not feel she wants to go back on the baclofen at this time. - Physical Exam General: Alert, Oriented x3, Cooperative, No apparent distress, Well developed HEENT: Atraumatic, PERRLA, EOMI, Normocephalic Oral: Moist Mucosa Neck: Supple, Trachea Midline, Thyroid Normal Size and Texture Lungs: Clear to auscultation, Normal air movement, No rhonchi, No wheeze, No rales Cardiovascular: Regular rate, Regular Rhythm, Normal S1, Normal S2, No murmurs Abdomen: Bowel Sounds Present, Soft, Non Tender, Non-Distended, No hernias noted Extremities: No clubbing, No cyanosis, No edema, Capillary Refill Less than 3 Seconds Skin: No rashes, No breakdown Musculoskeletal: No Tenderness to Palpation of Joints or Extremities Neurological: Cranial nerves II-XII grossly intact, Neuro grossly intact, Sensory exam intact to light touch and pain Psych/Mental Status: Appropriate, Alert and oriented to time, place, person, mood and affect Vital Signs Temp Pulse Resp BP Pulse Ox 98.3 F 86 18 160/96 H 99 05/25/19 14:15 05/25/19 16:09 05/25/19 14:15 05/25/19 14:15 05/25/19 14:15 Oxygen Flow Rate (L/min) 3 Oxygen Delivery Method Room Air Weight: 70.7 kg Body Mass Index (BMI) 22.4 Finger Stick Blood Glucose 67 Intake and Output for Last 24 Hours 05/23/19 05/24/19 05/25/19 23:59 23:59 23:59 Intake Total 4102.09 / 4287.09 4198.33 / 4198.33 2357.50 / 2357.50 Output Total 3625 / 4275 2650 / 2650 1670 / 1670 Balance 477.09 / 12.09 1548.33 / 1548.33 687.50 / 687.50 Microbiology Past 72 Hours 05/23/19 09:35 Urine Culture - Preliminary Urine Catheter - Catheter Gram negative michell Staphylococcus aureus 05/23/19 11:00 Bacteria Detection (PCR) - Final Blood Culture (Wb) - Port Staphylococcus epidermidis mecA Resistance Marker Blood Culture - Preliminary Staphylococcus epidermidis 05/23/19 11:00 Blood Culture - Preliminary Blood Culture (Wb) - Anticubital Left Staphylococcus species 05/23/19 09:35 Streptococcus pneumoniae Antigen (M - Final Urine Catheter - Catheter 05/23/19 09:35 Legionella Antigen - Final Urine Catheter - Catheter Laboratory Tests Past 24 Hrs 05/24/19 05/25/19 05/25/19 04:34 06:20 06:20 WBC 9.5 RBC 3.34 L Hgb 9.8 L Hct 31.9 L MCV 95.5 MCH 29.3 MCHC 30.7 L RDW Std Deviation 56.6 H RDW Coeff of Niurka 15.9 H Plt Count 147 L MPV 10.0 Immature Gran % (Auto) 0.500 Neut % (Auto) 79.2 H Lymph % (Auto) 9.3 L [place] % (Auto) 8.4 Eos % (Auto) 2.0 Baso % (Auto) 0.6 Absolute Neuts (auto) 7.5 Absolute Lymphs (auto) 0.88 Nucleated RBC % 0 Sodium 145 Potassium 3.9 Chloride 109 H Carbon Dioxide 27.0 Anion Gap 9 BUN 31 H Creatinine 1.89 H Estim Creat Clear Calc 32.52 Est GFR (MDRD) Af Amer 34 L Est GFR (MDRD) Non-Af 28 L BUN/Creatinine Ratio 16.4 Glucose 51 L Calcium 8.5 Iron 18 L TIBC 253 Iron Saturation 7.1 L Ferritin 42 Medical Necessity - Tobacco Use Smoking Status: Never smoker Tobacco Use: Non-smoker Assessment/Plan All Active Problems Fever (Acute) Sepsis (Acute) Infection due to human metapneumovirus (hMPV) (Acute) Acute metabolic encephalopathy (Acute) Leukocytosis (Acute) Acute distention of stomach (Acute) Urinary tract infection (Acute) Ileus (Acute) Aspiration pneumonia (Acute) Sepsis (Acute) Acute kidney injury (Acute) Vomiting (Acute) Declining functional status (Acute) #1 acute sepsis secondary to staph epidermidis and possible gram-negative bacterial urinary tract infection-continue antibiotics per infectious diseases at this time, it is unclear whether the patient will need to go home on IV antibiotics versus oral antibiotics. #2 severe gastroparesis with constipation and nausea and vomiting-patient's NG was removed today, she will receive lactulose and she was placed back on a n ectar thickened full liquid diet. #3 acute kidney injury-on a backdrop of chronic kidney disease stage III- patient's creatinine is improved during her hospitalization #4 multiple sclerosis #5 iron deficiency anemia #6 neurogenic bladder #7 elevated right hemidiaphragm-chronic Code Visit Inpatient E&M: 25928 Subs Hosp L2
--- NOTE | 2019-05-25 17:23 | PCM.PN.SRG ---
Patient Problems: Active and Suspected Problems Leukocytosis (Acute) Acute distention of stomach (Acute) Urinary tract infection (Acute) Ileus (Acute) Aspiration pneumonia (Acute) Sepsis (Acute) Acute kidney injury (Acute) Subjective: abdomen softer, no nausea - Physical Exam General: Alert, Oriented x3 Lungs: - - . Coarse breath sounds bibasilar decreased breath sounds right side Cardiovascular: Regular rate, Regular Rhythm Abdomen: Soft, Non Tender, Hypoactive Bowel Sounds Vital Signs Temp Pulse Resp BP Pulse Ox 98.3 F 86 18 160/96 H 99 05/25/19 14:15 05/25/19 16:09 05/25/19 14:15 05/25/19 14:15 05/25/19 14:15 Oxygen Flow Rate (L/min) 3 Oxygen Delivery Method Room Air Weight: 70.7 kg Body Mass Index (BMI) 22.4 Finger Stick Blood Glucose 67 Intake and Output for Last 24 Hours 05/23/19 05/24/19 05/25/19 23:59 23:59 23:59 Intake Total 4102.09 / 4287.09 4198.33 / 4198.33 2817.50 / 2817.50 Output Total 3625 / 4275 2650 / 2650 2670 / 2670 Balance 477.09 / 12.09 1548.33 / 1548.33 147.50 / 147.50 Microbiology Past 72 Hours 05/23/19 09:35 Urine Culture - Preliminary Urine Catheter - Catheter Gram negative michell Staphylococcus aureus 05/23/19 11:00 Bacteria Detection (PCR) - Final Blood Culture (Wb) - Port Staphylococcus epidermidis mecA Resistance Marker Blood Culture - Preliminary Staphylococcus epidermidis 05/23/19 11:00 Blood Culture - Preliminary Blood Culture (Wb) - Anticubital Left Staphylococcus species 05/23/19 09:35 Streptococcus pneumoniae Antigen (M - Final Urine Catheter - Catheter 05/23/19 09:35 Legionella Antigen - Final Urine Catheter - Catheter Laboratory Tests Past 24 Hrs 05/24/19 05/25/19 05/25/19 04:34 06:20 06:20 WBC 9.5 RBC 3.34 L Hgb 9.8 L Hct 31.9 L MCV 95.5 MCH 29.3 MCHC 30.7 L RDW Std Deviation 56.6 H RDW Coeff of Niurka 15.9 H Plt Count 147 L MPV 10.0 Immature Gran % (Auto) 0.500 Neut % (Auto) 79.2 H Lymph % (Auto) 9.3 L [place] % (Auto) 8.4 Eos % (Auto) 2.0 Baso % (Auto) 0.6 Absolute Neuts (auto) 7.5 Absolute Lymphs (auto) 0.88 Nucleated RBC % 0 Sodium 145 Potassium 3.9 Chloride 109 H Carbon Dioxide 27.0 Anion Gap 9 BUN 31 H Creatinine 1.89 H Estim Creat Clear Calc 32.52 Est GFR (MDRD) Af Amer 34 L Est GFR (MDRD) Non-Af 28 L BUN/Creatinine Ratio 16.4 Glucose 51 L Calcium 8.5 Iron 18 L TIBC 253 Iron Saturation 7.1 L Ferritin 42 Medical Necessity - Tobacco Use Smoking Status: Never smoker Tobacco Use: Non-smoker Assessment/Plan All Active Problems Fever (Acute) Sepsis (Acute) Infection due to human metapneumovirus (hMPV) (Acute) Acute metabolic encephalopathy (Acute) Leukocytosis (Acute) Acute distention of stomach (Acute) Urinary tract infection (Acute) Ileus (Acute) Aspiration pneumonia (Acute) Sepsis (Acute) Acute kidney injury (Acute) Vomiting (Acute) Declining functional status (Acute) abdominal pain, nausea, vomiting-acute gastric distention, left lower lobe pneumonia/infiltrates Patient is significantly more comfortable with NG tube and had a large volume of gastric aspirate. CT scan demonstrates normal-appearing small bowel and listed normal colon patient has significant right colon fecal loading patient with right-sided weakness, history of multiple sclerosis, elevated right hemidiaphragm with significant amount of colon above the liver. KUB this morning demonstrated still significant right colon stool, stomach appeared less distended. Spoke with radiology and planned to obtain Gastrografin through NG tube to assess for possible differential diagnosis of SMA syndrome. this was obtained which seems to indicate significant contrast signal in the stomach with decreased gastric emptying. It also appears to me that the antral region is distorted up towards the right upper quadrant likely from her paralyzed hemidiaphragm area there do not seem to be enough contrast leaving the stomach quickly enough to truly ascertain SMA syndrome. At this point, I would recommend a prokinetic agent. I spoke with Dr. Florez. she was given magnesium citrate to not have any improvement in her bowel function. KUB this morning demonstrated all the contraststudy in the colon. At this point, we'll plan to obtain a gastric emptying study. If this can be obtained tomorrow I will plan for EGD as an outpatient. If the gastric and thinks that he cannot be obtained tomorrow, I will plan to perform upper endoscopy.
[2019-05-25] MEDS: MELATONIN 10 MG TABLET PO (22:17)
[2019-05-26] VITALS (11 sets, daily range): BP systolic 148–166; BP diastolic 84–102; PULSE 90–110; RESP 16–20; TEMP 36.9–38.3; O2SAT 94–96
[2019-05-26] MEDS: 0.9% Normal Saline 1,000 ML 125 ML IV ×3 (00:13→17:08)
[2019-05-26] MEDS: Ipratropium/Albuterol Sulfate 3 ML AMPUL.NEB INHALATION ×2 (07:13→13:31)
[2019-05-26] MEDS: Acetaminophen 650 MG Suppository RECTAL (09:36)
[2019-05-26] MEDS: 0.9% NaCl Peripheral Flush Adult/Peds IV ×2 (09:37→11:34)
[2019-05-26] MEDS: Menthol/Lanolin/Calamine/Znox 113 GM Tube 1 APPLIC TOPICAL ×2 (09:39→21:38)
--- NOTE | 2019-05-26 11:05 | PCA ---
pt off floor
--- NOTE | 2019-05-26 11:17 | CASEMGMT ---
Addendum entered by Kelsie Kruse 05/26/19 14:30: Clarification: referral was sent to [facility]. [facility] able to accept the patient with anticipated start of care for 05/29/19. RN CM updated patient's Siva. Original Note: RN CM sent referral to [facility], 's preferred choice for [facility]. RN CM awaiting call back that they are able to accept the patient. CM will continue to follow this patient and plan for a safe discharge.
[2019-05-26] MEDS: Nystatin Powder 15gm Bottle 1 APPLIC TOPICAL ×2 (11:32→21:39)
[2019-05-26] MEDS: Fluticasone 0.05% 1 SPRAY NASAL.SRY NASAL ×2 (11:33→21:40)
--- NOTE | 2019-05-26 12:00 | NM_ITS ---
Gastric emptying study. INDICATION: Gastroparesis. Next TECHNIQUE: After the ministration 1.2 mCi of technetium 99m sulfur colloid in a meal of oatmeal orally, multiple scintigraphic images of the abdomen were obtained. Furthermore, counts were obtained and a gastric emptying curve was plotted. FINDINGS: After 1 hour, there is 37% gastric retention which is normal. T1 half is 58 minutes which is normal. IMPRESSION: Normal gastric emptying. Electronically Signed: Bill Carter MD at 11:37 EDT Tel , Service support , NM/Gastric Emptying Study
--- NOTE | 2019-05-26 13:19 | PCM.PN.ID ---
Patient Problems: Active and Suspected Problems Leukocytosis (Acute) Acute distention of stomach (Acute) Urinary tract infection (Acute) Ileus (Acute) Aspiration pneumonia (Acute) Sepsis (Acute) Acute kidney injury (Acute) Subjective: Fever to 101, hallucinations. Some SOB. - Physical Exam General: No apparent distress, Disoriented Lungs: Clear to auscultation, Normal air movement Cardiovascular: Regular rate, Regular Rhythm Abdomen: Soft, Non Tender, Non-Distended Skin: No rashes Vital Signs Temp Pulse Resp BP Pulse Ox 99.8 F H 98 20 H 148/86 H 94 05/26/19 13:14 05/26/19 13:14 05/26/19 13:14 05/26/19 13:14 05/26/19 13:14 Oxygen Flow Rate (L/min) 3 Oxygen Delivery Method Nasal Cannula Weight: 70.7 kg Body Mass Index (BMI) 22.4 Finger Stick Blood Glucose 67 Intake and Output for Last 24 Hours 05/24/19 05/25/19 05/26/19 23:59 23:59 23:59 Intake Total 4198.33 / 4198.33 3577.50 / 3817.50 1867.83 / 1867.83 Output Total 2650 / 2650 2670 / 4620 4575 / 4575 Balance 1548.33 / 1548.33 907.50 / -802.50 -2707.17 / -2707.17 Microbiology Past 72 Hours 05/23/19 09:35 Urine Culture - Preliminary Urine Catheter - Catheter Stenotrophomonas maltophilia Meth. resistant Staph. aureus 05/23/19 11:00 Blood Culture - Final Blood Culture (Wb) - Anticubital Left Staphylococcus epidermidis 05/23/19 11:00 Bacteria Detection (PCR) - Final Blood Culture (Wb) - Port Staphylococcus epidermidis mecA Resistance Marker Blood Culture - Final Staphylococcus epidermidis 05/25/19 21:17 Stool Occult Blood (LAUREN) - Final Stool 05/23/19 09:35 Streptococcus pneumoniae Antigen (M - Final Urine Catheter - Catheter 05/23/19 09:35 Legionella Antigen - Final Urine Catheter - Catheter Medical Necessity - Tobacco Use Smoking Status: Never smoker Tobacco Use: Non-smoker Route of nutrition/ use of supplements: [] Nutritional Intake: [] IV Site: [] Maldonado Catheter: [] - Assessment/Plan Antibiotics: [] Assessment/Plan: [] Active and Suspected Problems Leukocytosis (Acute) Acute distention of stomach (Acute) Urinary tract infection (Acute) Ileus (Acute) Aspiration pneumonia (Acute) Sepsis (Acute) Acute kidney injury (Acute) Sepsis - improved. Cr better, wbc normalized, hr improved. Unclear source. Bcx x2 with MRSE, it appears. Does have port in place. Ucx with MRSA and steno. Abd much improved. Dr. Vazquez following. Fever last night. Will change abx to linezolid and monitor progress. Will follow
[2019-05-26] MEDS: Linezolid 600 MG Tablet PO ×2 (13:46→21:41)
--- NOTE | 2019-05-26 17:33 | PCM.PN.SRG ---
Patient Problems: Active and Suspected Problems Leukocytosis (Acute) Acute distention of stomach (Acute) Urinary tract infection (Acute) Ileus (Acute) Aspiration pneumonia (Acute) Sepsis (Acute) Acute kidney injury (Acute) Subjective: feeling better, tolerated diet yesterday. - Physical Exam General: Cooperative Lungs: - - decreased breath sounds bibasilarly with coarser breath sounds left base Cardiovascular: Regular rate, Regular Rhythm Abdomen: Bowel Sounds Present, Soft, Non Tender Skin: - - Port-A-Cath site without erythema Kern needle access site intact Vital Signs Temp Pulse Resp BP Pulse Ox 98.7 F 96 20 H 155/88 H 94 05/26/19 17:23 05/26/19 17:23 05/26/19 17:23 05/26/19 17:23 05/26/19 17:23 Oxygen Flow Rate (L/min) 2 Oxygen Delivery Method Nasal Cannula Weight: 70.7 kg Body Mass Index (BMI) 22.4 Finger Stick Blood Glucose 67 Intake and Output for Last 24 Hours 05/24/19 05/25/19 05/26/19 23:59 23:59 23:59 Intake Total 4198.33 / 4198.33 3577.50 / 3817.50 3087.83 / 3087.83 Output Total 2650 / 2650 2670 / 4620 5200 / 5200 Balance 1548.33 / 1548.33 907.50 / -802.50 -2112.17 / -2112.17 Microbiology Past 72 Hours 05/23/19 09:35 Urine Culture - Preliminary Urine Catheter - Catheter Stenotrophomonas maltophilia Meth. resistant Staph. aureus 05/23/19 11:00 Blood Culture - Final Blood Culture (Wb) - Anticubital Left Staphylococcus epidermidis 05/23/19 11:00 Bacteria Detection (PCR) - Final Blood Culture (Wb) - Port Staphylococcus epidermidis mecA Resistance Marker Blood Culture - Final Staphylococcus epidermidis 05/25/19 21:17 Stool Occult Blood (LAUREN) - Final Stool 05/23/19 09:35 Streptococcus pneumoniae Antigen (M - Final Urine Catheter - Catheter 05/23/19 09:35 Legionella Antigen - Final Urine Catheter - Catheter Medical Necessity - Tobacco Use Smoking Status: Never smoker Tobacco Use: Non-smoker Assessment/Plan All Active Problems Fever (Acute) Sepsis (Acute) Infection due to human metapneumovirus (hMPV) (Acute) Acute metabolic encephalopathy (Acute) Leukocytosis (Acute) Acute distention of stomach (Acute) Urinary tract infection (Acute) Ileus (Acute) Aspiration pneumonia (Acute) Sepsis (Acute) Acute kidney injury (Acute) Vomiting (Acute) Declining functional status (Acute) abdominal pain, nausea, vomiting-acute gastric distention, left lower lobe pneumonia/infiltrates Patient is significantly more comfortable with NG tube and had a large volume of gastric aspirate. CT scan demonstrates normal-appearing small bowel and listed normal colon patient has significant right colon fecal loading patient with right-sided weakness, history of multiple sclerosis, elevated right hemidiaphragm with significant amount of colon above the liver. KUB this morning demonstrated still significant right colon stool, stomach appeared less distended. Spoke with radiology and planned to obtain Gastrografin through NG tube to assess for possible differential diagnosis of SMA syndrome. this was obtained which seems to indicate significant contrast signal in the stomach with decreased gastric emptying. It also appears to me that the antral region is distorted up towards the right upper quadrant likely from her paralyzed hemidiaphragm area there do not seem to be enough contrast leaving the stomach quickly enough to truly ascertain SMA syndrome. At this point, I would recommend a prokinetic agent. I spoke with Dr. Florez. she was given magnesium citrate to not have any improvement in her bowel function. KUB yesterday demonstrated all the contrast study in the colon. Gastric emptying study - was obtained today which was felt to be within normal limits. I will plan for EGD as an outpatient. my impression currently is that this is still a combination of an ileus from her infection/sepsis and a degree of SMA syndrome. The patient also has 2 of 2 blood cultures positive for MRSE. ID following, uncertain source. Plan for continued antibiotics.
--- NOTE | 2019-05-26 19:18 | PN_ITS ---
Patient Problems: Active and Suspected Problems Leukocytosis (Acute) Acute distention of stomach (Acute) Urinary tract infection (Acute) Ileus (Acute) Sepsis (Acute) Acute kidney injury (Acute) Subjective: Patient was seen and examined today, she still has continued periods of hallucinating, she is alert and does not appear to be in distress however, I talked with her extensively today during the time of my examination. Patient's gastric emptying study was unremarkable, general surgery plans on performing EGD tomorrow. I have elected not to place her back on Reglan at this time due to concerns of tar dive dyskinesia with the medication, I have ordered an additional dose of lactulose this evening for her. - Physical Exam General: Alert, Cooperative, No apparent distress, Well developed HEENT: Atraumatic, PERRLA, EOMI, Normocephalic Oral: Moist Mucosa Neck: Supple, Trachea Midline, Thyroid Normal Size and Texture Lungs: Clear to auscultation, Normal air movement, No rhonchi, No wheeze, No rales Cardiovascular: Regular rate, Regular Rhythm, Normal S1, Normal S2, No murmurs Abdomen: Bowel Sounds Present, Soft, Non Tender, Non-Distended Extremities: No clubbing, No cyanosis, No edema, Capillary Refill Less than 3 Seconds Skin: No rashes, No breakdown Neurological: Cranial nerves II-XII grossly intact, Neuro grossly intact Psych/Mental Status: Flat Affect - Patient is alert, she has periods of hallucination Vital Signs Temp Pulse Resp BP Pulse Ox 98.7 F 96 20 H 155/88 H 94 05/26/19 17:23 05/26/19 17:23 05/26/19 17:23 05/26/19 17:23 05/26/19 17:23 Oxygen Flow Rate (L/min) 2 Oxygen Delivery Method Nasal Cannula Weight: 70.7 kg Body Mass Index (BMI) 22.4 Finger Stick Blood Glucose 67 Intake and Output for Last 24 Hours 05/24/19 05/25/19 05/26/19 23:59 23:59 23:59 Intake Total 4198.33 / 4198.33 3577.50 / 3817.50 3087.83 / 3087.83 Output Total 2650 / 2650 2670 / 4620 5200 / 5200 Balance 1548.33 / 1548.33 907.50 / -802.50 -2111.17 / -2111.17 Microbiology Past 72 Hours 05/23/19 09:35 Urine Culture - Preliminary Urine Catheter - Catheter Stenotrophomonas maltophilia Meth. resistant Staph. aureus 05/23/19 11:00 Blood Culture - Final Blood Culture (Wb) - Anticubital Left Staphylococcus epidermidis 05/23/19 11:00 Bacteria Detection (PCR) - Final Blood Culture (Wb) - Port Staphylococcus epidermidis mecA Resistance Marker Blood Culture - Final Staphylococcus epidermidis 05/25/19 21:17 Stool Occult Blood (LAUREN) - Final Stool Medical Necessity - Tobacco Use Smoking Status: Never smoker Tobacco Use: Non-smoker Assessment/Plan All Active Problems Fever (Acute) Sepsis (Acute) Infection due to human metapneumovirus (hMPV) (Resolved) Acute metabolic encephalopathy (Resolved) Leukocytosis (Acute) Acute distention of stomach (Acute) Urinary tract infection (Acute) Ileus (Acute) Aspiration pneumonia (Ruled-out) Sepsis (Acute) Acute kidney injury (Acute) Vomiting (Acute) #1 acute sepsis secondary to staph epidermidis and possible gram-negative bacterial urinary tract infection-patient was changed to Zyvox by infectious diseases #2 severe gastroparesis with constipation and nausea and vomiting-this has resolved at this time, patient will have an EGD tomorrow #3 acute kidney injury-on a backdrop of chronic kidney disease stage III- patient's creatinine is improved during her hospitalization #4 multiple sclerosis #5 iron deficiency anemia-patient is receiving Venofer #6 neurogenic bladder #7 elevated right hemidiaphragm-chronic Code Visit Inpatient E&M: 52175 Subs Hosp L2
--- NOTE | 2019-05-26 20:54 | ED.RN ---
Pt is refusing all medications and interventions at this time.
[2019-05-26] MEDS: Lactulose 20 GM/30 ML UDC PO (21:38)
[2019-05-26] MEDS: Lactulose 20 GM/30 ML UDC 10 GM PO (21:38)
[2019-05-26] MEDS: MELATONIN 10 MG TABLET PO (21:41)
[2019-05-27] VITALS (12 sets, daily range): BP systolic 127–166; BP diastolic 82–110; PULSE 92–104; RESP 14–24; TEMP 36.2–37.4; O2SAT 92–97
[2019-05-27] MEDS: 0.9% Normal Saline 1,000 ML 125 ML IV ×3 (01:16→17:52)
[2019-05-27] MEDS: 0.9% NaCl Peripheral Flush Adult/Peds IV (05:07)
[2019-05-27 05:35] LABS: Anion Gap 7 (5-15); BUN 12 mg/dL (7-18); BUN/Creat Ratio 8.4 RATIO (10-20); Calcium,Total 8.7 mg/dL (8.5-10.1); Chloride 114 mmol/L (98-107); Creatinine, Serum 1.43 mg/dL (0.55-1.02); EST Glomerular Filtration Rate 39 mL/min (>60); Est Glom Filt Rate - Afr Amer 48 mL/min (>60); Estimated Creatinine Clearance 42.98 ml/min; Glucose 105 mg/dL (74-106); Sodium Level 148 mmol/L (136-145)
--- NOTE | 2019-05-27 07:30 | EGD_PTH ---
PATIENT: KEN CASON LOC: MS3 U#:[id number] AGE/SX: 64/F ROOM: MS310 RE05/23/[address]: Dr. Samir Lerner DO : 1955 BED: 1 DIS: 05/30/2019 SPEC #: [id number] RECD: 05/27/19 12:31 STATUS: SANDRITA REA[place] #: [id number] JOSE ARMANDO: 05/27/19 07:[address]: Bill Vazquez DEPT: SURGICAL PATHOLOGY RECD BY: Gerson Sarah ENTERED: 05/29/19 13:01 SP TYPE: EGD BIOPSY OT DR: MD Dr. Alexandria Gonzalez MD Dr. Holly Wyneski, MD Dr. Mark Tereletsky, DO Dr. Robert Leininger, MD Tissues: A - Gastric mucous membrane B - Stomach, NOS C - Esophageal mucous membrane Procedures: Surgery Specimen Level IV HEADER OPERATION: EGD ([facility] [place]) PRE-OP DIAGNOSIS: Abdominal pain, nausea and vomiting TISSUE SUBMITTED: A. Antrum biopsy, B. Proximal stomach biopsy, C. Distal esophagus biopsy MICROSCOPIC DIAGNOSIS A. Gastric antrum, biopsy: Mild chronic gastritis. B. Proximal stomach, biopsy: Mild chronic gastritis. C. Distal esophagus, biopsy: Gastroesophageal junction mucosa with ulceration and associated acute and chronic inflammation with fibrinopurulent material. Negative for fungal organisms. No evidence of intestinal metaplasia. AM:addison 05/30/2019 COMMENT Alcian blue/PAS stain with matched control supports the above diagnosis. MICROSCOPIC DESCRIPTION Slides are reviewed. GROSS DESCRIPTION A.Received is one container labeled with the patient name and designated antrum biopsy. The specimen consists of one irregular fragment of light mak soft tissue that measures 0.3 x 0.3 x 0.1 cm. The specimen is totally submitted in one cassette. B.Received is one container labeled with the patient name and designated proximal stomach. The specimen consists of one irregular fragment of light mak soft tissue that measures 0.8 x 0.2 x 0.1 cm. The specimen is totally submitted in one cassette. C.Received is one container labeled with the patient name and designated distal esophagus. The specimen consists of one irregular fragment of light mak soft tissue that measures 0.2 x 0.1 x 0.1 cm. The specimen is totally submitted in one cassette. /SJ:sp 05/29/19 TC: 2 CPT: 64409 x3, 39851 x1, 06613 x1
--- NOTE | 2019-05-27 07:58 | OP.ENDO_ITS ---
05/27/2019 Alexandria Carranza Re : Upper GI endoscopy procedure for Ching Kauffmanr Tere This procedure was performed on Monday, May 27, 2019. My impressions and recommendations are as follows: Impressions : - Normal. - Gastritis. Biopsied. - Mildly severe reflux esophagitis. Biopsied. Recommendations : - Await pathology results. - Return to my office in 1 week. - Continue present medications. My findings are described in the full procedure note, which is enclosed. If I can be of further assistance, please feel free to contact me at Doctor phone number(s): , Work: . Sincerely, Bill Vazquez MD 05/27/2019 7:57:53 AM This report has been signed electronically.
--- NOTE | 2019-05-27 07:58 | PN.SURG_ITS ---
Patient Problems: Active and Suspected Problems Leukocytosis (Acute) Acute distention of stomach (Acute) Urinary tract infection (Acute) Ileus (Acute) Aspiration pneumonia (Acute) Sepsis (Acute) Acute kidney injury (Acute) Subjective: ? confusion, no abdominal complaints - Physical Exam General: Confused - ? Lungs: - - decreased bases Cardiovascular: Regular rate, Regular Rhythm Abdomen: Bowel Sounds Present, Soft, Non Tender Vital Signs Temp Pulse Resp BP Pulse Ox 98 F 97 18 158/101 H 94 05/27/19 03:52 05/27/19 03:52 05/27/19 03:52 05/27/19 03:52 05/27/19 03:52 Oxygen Flow Rate (L/min) 2 Oxygen Delivery Method Nasal Cannula Weight: 70.7 kg Body Mass Index (BMI) 22.4 Finger Stick Blood Glucose 67 Intake and Output for Last 24 Hours 05/25/19 05/26/19 05/27/19 23:59 23:59 23:59 Intake Total 3577.50 / 3817.50 3806.16 / 3926.16 1226.25 / 1226.25 Output Total 2670 / 4620 5200 / 6200 1999 / 1999 Balance 907.50 / -802.50 -1393.84 / -2273.84 -773.75 / -773.75 Microbiology Past 72 Hours 05/23/19 09:35 Urine Culture - Preliminary Urine Catheter - Catheter Stenotrophomonas maltophilia Meth. resistant Staph. aureus 05/23/19 11:00 Blood Culture - Final Blood Culture (Wb) - Anticubital Left Staphylococcus epidermidis 05/23/19 11:00 Bacteria Detection (PCR) - Final Blood Culture (Wb) - Port Staphylococcus epidermidis mecA Resistance Marker Blood Culture - Final Staphylococcus epidermidis 05/25/19 21:17 Stool Occult Blood (LAUREN) - Final Stool Laboratory Tests Past 24 Hrs 05/27/19 05:10 Sodium 148 H Potassium 3.0 L Chloride 114 H Carbon Dioxide 27.0 Anion Gap 7 BUN 12 Creatinine 1.43 H Estim Creat Clear Calc 42.98 Est GFR (MDRD) Af Amer 48 L Est GFR (MDRD) Non-Af 39 L BUN/Creatinine Ratio 8.4 L Glucose 105 Calcium 8.7 Medical Necessity - Tobacco Use Smoking Status: Never smoker Tobacco Use: Non-smoker Assessment/Plan All Active Problems Fever (Acute) Sepsis (Acute) Infection due to human metapneumovirus (hMPV) (Acute) Acute metabolic encephalopathy (Acute) Leukocytosis (Acute) Acute distention of stomach (Acute) Urinary tract infection (Acute) Ileus (Acute) Aspiration pneumonia (Acute) Sepsis (Acute) Acute kidney injury (Acute) Vomiting (Acute) Declining functional status (Acute) abdominal pain, nausea, vomiting-acute gastric distention, left lower lobe pneumonia/infiltrates Patient is significantly more comfortable with NG tube and had a large volume of gastric aspirate. CT scan demonstrates normal-appearing small bowel and listed normal colon patient has significant right colon fecal loading patient with right-sided weakness, history of multiple sclerosis, elevated right hemidiap hragm with significant amount of colon above the liver. KUB this morning demonstrated still significant right colon stool, stomach appeared less distended. Spoke with radiology and planned to obtain Gastrografin through NG tube to assess for possible differential diagnosis of SMA syndrome. this was obtained which seems to indicate significant contrast signal in the stomach with decreased gastric emptying. It also appears to me that the antral region is distorted up towards the right upper quadrant likely from her paralyzed hemidiaphragm area there do not seem to be enough contrast leaving the stomach quickly enough to truly ascertain SMA syndrome. At this point, I would recommend a prokinetic agent. I spoke with Dr. Florez. she was given magnesium citrate to not have any improvement in her bowel function. KUB yesterday demonstrated all the contrast study in the colon. Gastric emptying study - was obtained today which was felt to be within normal limits. I performed EGD this morning. No obvious abnormalities in the duodenum. gastritis and distal esophagitis. biopsies were taken. WIll have patient follow up in my office in one week my impression currently is that this is still a combination of an ileus from her infection/sepsis and a degree of SMA syndrome. The patient also has 2 of 2 blood cultures positive for MRSE. ID following, uncertain source. Plan for continued antibiotics.
[2019-05-27] MEDS: Nystatin Powder 15gm Bottle 1 APPLIC TOPICAL ×2 (09:55→21:54)
[2019-05-27] MEDS: Menthol/Lanolin/Calamine/Znox 113 GM Tube 1 APPLIC TOPICAL ×2 (09:56→21:55)
[2019-05-27] MEDS: Fluticasone 0.05% 1 SPRAY NASAL.SRY NASAL ×2 (09:56→21:54)
[2019-05-27] MEDS: Lactulose 20 GM/30 ML UDC PO ×3 (09:58→21:54)
[2019-05-27] MEDS: Linezolid 600 MG Tablet PO ×2 (10:33→21:54)
--- NOTE | 2019-05-27 13:25 | CM.UR ---
Dr. Vines asked that I check on her Zyvox which she will probably have to be discharged on. According to [email or web address] the Zyvox does NOT need prior authorization. Will cost $409.20 for a 30 day supply. May be less depending upon where she is with her deductible stage of coverage. Print out will be placed in patient's chart. Candelario Gregorio RN, CCM.
[2019-05-27] MEDS: Ipratropium/Albuterol Sulfate 3 ML AMPUL.NEB INHALATION ×2 (13:35→18:38)
[2019-05-27] MEDS: Potassium Chloride 10mEq/100mL 10 MEQ/100 ML IV.SOLN. 100 MEQ IV BOLUS ×3 (15:51→17:54)
--- NOTE | 2019-05-27 16:57 | PN_ITS ---
Patient Problems: Active and Suspected Problems Leukocytosis (Acute) Acute distention of stomach (Acute) Urinary tract infection (Acute) Ileus (Acute) Sepsis (Acute) Acute kidney injury (Acute) Subjective: Patient was seen and examined today, I talked with her who is in the room today. She continues to have hallucinations, I have reviewed her medications and I see no medication that would cause hallucinations. Patient had an EGD done today which showed gastritis and mildly severe reflux esophagitis. Patient's potassium was slightly low today, I have given her IV supplemental potassium today. Objective: General: Alert, Cooperative, patient is having hallucinations, no apparent distress, Well developed HEENT: Atraumatic, PERRLA, EOMI, Normocephalic Oral: Moist Mucosa Neck: Supple, Trachea Midline, Thyroid Normal Size and Texture Lungs: Clear to auscultation, Normal air movement, No rhonchi, No wheeze, No rales Cardiovascular: Regular rate, Regular Rhythm, Normal S1, Normal S2, No murmurs Abdomen: Bowel Sounds Present, Soft, Non Tender, Non-Distended Extremities: No clubbing, No cyanosis, No edema, Capillary Refill Less than 3 Seconds Skin: No rashes, No breakdown Neurological: Cranial nerves II-XII grossly intact, Neuro grossly intact Psych/Mental Status: Flat Affect - Patient is alert, she has periods of hallucination Vital Signs - Physical Exam Vital Signs Temp Pulse Resp BP Pulse Ox 99.3 F H 97 16 151/88 H 92 05/27/19 14:59 05/27/19 14:59 05/27/19 14:59 05/27/19 14:59 05/27/19 14:59 Oxygen Flow Rate (L/min) 2 Oxygen Delivery Method Room Air Weight: 70.7 kg Body Mass Index (BMI) 22.4 Finger Stick Blood Glucose 67 Intake and Output for Last 24 Hours 05/25/19 05/26/19 05/27/19 23:59 23:59 23:59 Intake Total 3577.50 / 3817.50 3806.16 / 3926.16 1921.25 / 192.25 Output Total 2670 / 4620 5200 / 6200 2950 / 2950 Balance 907.50 / -802.50 -1393.84 / -2273.84 -1028.75 / -1028.75 Microbiology Past 72 Hours 05/25/19 06:20 Blood Culture - Preliminary Blood Culture (Wb) - Central Line No growth in 48 hours. 05/24/19 21:20 Blood Culture - Preliminary Blood Culture (Wb) - Left Forearm No growth in 48 hours. 05/23/19 09:35 Urine Culture - Preliminary Urine Catheter - Catheter Stenotrophomonas maltophilia Meth. resistant Staph. aureus 05/23/19 11:00 Blood Culture - Final Blood Culture (Wb) - Anticubital Left Staphylococcus epidermidis 05/23/19 11:00 Bacteria Detection (PCR) - Final Blood Culture (Wb) - Port Staphylococcus epidermidis mecA Resistance Marker Blood Culture - Final Staphylococcus epidermidis 05/25/19 21:17 Stool Occult Blood (LAUREN) - Final Stool Laboratory Tests Past 24 Hrs 05/27/19 05:10 Sodium 148 H Potassium 3.0 L Chloride 114 H Carbon Dioxide 27.0 Anion Gap 7 BUN 12 Creatinine 1.43 H Estim Creat Clear Calc 42.98 Est GFR (MDRD) Af Amer 48 L Est GFR (MDRD) Non-Af 39 L BUN/Creatinine Ratio 8.4 L Glucose 105 Calcium 8.7 Medical Necessity - Tobacco Use Smoking Status: Never smoker Tobacco Use: Non-smoker Assessment/Plan All Active Problems Fever (Acute) Sepsis (Acute) Infection due to human metapneumovirus (hMPV) (Resolved) Acute metabolic encephalopathy (Resolved) Leukocytosis (Acute) Acute distention of stomach (Acute) Urinary tract infection (Acute) Ileus (Acute) Aspiration pneumonia (Ruled-out) Sepsis (Acute) Acute kidney injury (Acute) Vomiting (Acute) #1 acute sepsis secondary to staph epidermidis and possible gram-negative bacterial urinary tract infection-patient was changed to Zyvox by infectious diseases by mouth yesterday, she will remain on this medication, she will need a prescription at the time of discharge #2 severe gastroparesis with constipation and nausea and vomiting-this has resolved at this time, patient will be given extra lactulose today, she has not had a significant bowel movement. #3 hypokalemia-patient was given potassium supplementation IV #4 reflux esophagitis-patient's Protonix was changed to oral #5 gastritis-patient is to remain on Protonix #6 acute kidney injury-on a backdrop of chronic kidney disease stage III- patient's creatinine is improved during her hospitalization #7 multiple sclerosis #8 iron deficiency anemia-patient is receiving Venofer #9 neurogenic bladder #10 elevated right hemidiaphragm-chronic
--- NOTE | 2019-05-27 17:08 | NURSING ---
worried that pt confused, seeing things and restless. requested a sitter but told him that we can not do this at this time because she is not getting out of bed. bed alarm set and camera turned on .
[2019-05-27] MEDS: MELATONIN 10 MG TABLET PO (21:54)
[2019-05-28] VITALS (9 sets, daily range): BP systolic 145–159; BP diastolic 72–95; PULSE 93–102; RESP 16–24; TEMP 36.8–37.3; O2SAT 92–94
[2019-05-28] MEDS: 0.9% Normal Saline 1,000 ML 125 ML IV ×3 (04:17→18:20)
[2019-05-28] MEDS: Acetaminophen 325 MG Tablet 650 MG PO (05:29)
[2019-05-28] MEDS: Ipratropium/Albuterol Sulfate 3 ML AMPUL.NEB INHALATION ×3 (07:01→18:56)
--- NOTE | 2019-05-28 09:02 | PCM.PN.SRG ---
Patient Problems: Active and Suspected Problems Leukocytosis (Acute) Acute distention of stomach (Acute) Urinary tract infection (Acute) Ileus (Acute) Sepsis (Acute) Acute kidney injury (Acute) Subjective: I'll movement overnight and this morning. the patient seems increasingly confused. the patient's notes she is having paranoid delusions - Physical Exam General: Confused Lungs: - - decreased breath sounds bibasilarly Cardiovascular: Regular rate, Regular Rhythm Abdomen: Bowel Sounds Present, Soft, Non Tender Vital Signs Temp Pulse Resp BP Pulse Ox 98.8 F 102 H 18 153/91 H 93 05/28/19 03:50 05/28/19 07:01 05/28/19 07:01 05/28/19 03:50 05/28/19 07:01 Oxygen Flow Rate (L/min) 2 Oxygen Delivery Method Room Air Weight: 70.7 kg Body Mass Index (BMI) 22.4 Finger Stick Blood Glucose 67 Intake and Output for Last 24 Hours 05/26/19 05/27/19 05/28/19 23:59 23:59 23:59 Intake Total 3806.16 / 3926.16 2977.91 / 3217.91 1360 / 1360 Output Total 5200 / 6200 3350 / 3950 1400 / 1400 Balance -1393.84 / -2273.84 -372.09 / -732.09 -40 / -40 Microbiology Past 72 Hours 05/25/19 06:20 Blood Culture - Preliminary Blood Culture (Wb) - Central Line No growth in 48 hours. 05/24/19 21:20 Blood Culture - Preliminary Blood Culture (Wb) - Left Forearm No growth in 48 hours. 05/23/19 09:35 Urine Culture - Preliminary Urine Catheter - Catheter Stenotrophomonas maltophilia Meth. resistant Staph. aureus 05/23/19 11:00 Blood Culture - Final Blood Culture (Wb) - Anticubital Left Staphylococcus epidermidis 05/23/19 11:00 Bacteria Detection (PCR) - Final Blood Culture (Wb) - Port Staphylococcus epidermidis mecA Resistance Marker Blood Culture - Final Staphylococcus epidermidis 05/25/19 21:17 Stool Occult Blood (LAUREN) - Final Stool Medical Necessity - Tobacco Use Smoking Status: Never smoker Tobacco Use: Non-smoker Assessment/Plan All Active Problems Fever (Acute) Sepsis (Acute) Infection due to human metapneumovirus (hMPV) (Resolved) Acute metabolic encephalopathy (Resolved) Leukocytosis (Acute) Acute distention of stomach (Acute) Urinary tract infection (Acute) Ileus (Acute) Aspiration pneumonia (Ruled-out) Sepsis (Acute) Acute kidney injury (Acute) Vomiting (Acute) abdominal pain, nausea, vomiting-acute gastric distention, left lower lobe pneumonia/infiltrates Patient is significantly more comfortable with NG tube and had a large volume of gastric aspirate. CT scan demonstrates normal-appearing small bowel and listed normal colon patient has significant right colon fecal loading patient with right-sided weakness, history of multiple sclerosis, elevated right hemidiaphragm with significant amount of colon above the liver. KUB this morning demonstrated still significant right colon stool, stomach appeared less distended. Spoke with radiology and planned to obtain Gastrografin through NG tube to assess for possible differential diagnosis of SMA syndrome. this was obtained which seems to indicate significant contrast signal in the stomach with decreased gastric emptying. It also appears to me that the antral region is distorted up towards the right upper quadrant likely from her paralyzed hemidiaphragm area there do not seem to be enough contrast leaving the stomach quickly enough to truly ascertain SMA syndrome. At this point, I would recommend a prokinetic agent. I spoke with Dr. Florez. she was given magnesium citrate to not have any improvement in her bowel function. KUB yesterday demonstrated all the contrast study in the colon. Gastric emptying study - was obtained today which was felt to be within normal limits. I performed EGD Wednesday morning. No obvious abnormalities in the duodenum. gastritis and distal esophagitis. biopsies were taken. Will have patient follow up in my office in one week my impression currently is that this is still a combination of an ileus from her infection/sepsis and a degree of SMA syndrome. she is moving her bowels and somewhat tolerating a diet. She has no further vomiting issues The patient also has 2 of 2 blood cultures positive for MRSE. follow up blood cultures are currently negative. ID following, uncertain source. Plan for continued antibiotics. the patient is seemed increasingly confused over the last few days. In discussing the patient's mental status with her , he notes that she has had some paranoid delusions such as hearing threats in the hallway or confabulating stories from the TV. the patient was given Reglan initially but that was stopped in the half life of this should be out of her system. He notes that she had some events in the past when she was in the ICU intubated on propofol. She was confused prior to endoscopy yesterday. My plan is to discuss this with Dr. Hinton and consider neurology consultation.
[2019-05-28] MEDS: Menthol/Lanolin/Calamine/Znox 113 GM Tube 1 APPLIC TOPICAL ×2 (10:25→21:07)
[2019-05-28] MEDS: Fluticasone 0.05% 1 SPRAY NASAL.SRY NASAL (10:26)
[2019-05-28] MEDS: Nystatin Powder 15gm Bottle 1 APPLIC TOPICAL ×2 (10:26→21:06)
[2019-05-28] MEDS: Linezolid 600 MG Tablet PO ×2 (10:26→21:06)
[2019-05-28] MEDS: Pantoprazole Sodium 40 MG Tablet PO (10:26)
[2019-05-28] MEDS: Lactulose 20 GM/30 ML UDC PO (10:27)
[2019-05-28] MEDS: Baclofen 10 MG Tablet 5 MG PO ×3 (15:29→21:30)
--- NOTE | 2019-05-28 18:38 | PN_ITS ---
Patient Problems: Active and Suspected Problems Leukocytosis (Acute) Acute distention of stomach (Acute) Urinary tract infection (Acute) Ileus (Acute) Sepsis (Acute) Acute kidney injury (Acute) Subjective: Patient was seen and examined today, I talked with her who is in the room today also, patient continues to have hallucinations, I have reviewed her medications and I do not believe any of her medications are causing the hallucinations. Patient's requested I place her back on baclofen-I did this today. I brought up possibly sending the patient to a custodial facility and the is not in favor of this at this time. Objective: General: Alert, Cooperative, patient is having hallucinations, no apparent distress, Well developed HEENT: Atraumatic, PERRLA, EOMI, Normocephalic Oral: Moist Mucosa Neck: Supple, Trachea Midline, Thyroid Normal Size and Texture Lungs: Clear to auscultation, Normal air movement, No rhonchi, No wheeze, No rales Cardiovascular: Regular rate, Regular Rhythm, Normal S1, Normal S2, No murmurs Abdomen: Bowel Sounds Present, Soft, Non Tender, Non-Distended Extremities: No clubbing, No cyanosis, No edema, Capillary Refill Less than 3 Seconds Skin: No rashes, No breakdown Neurological: Cranial nerves II-XII grossly intact, Neuro grossly intact Psych/Mental Status: Flat Affect - Patient is alert, she has periods of hallucination - Physical Exam Vital Signs Temp Pulse Resp BP Pulse Ox 99.2 F H 101 H 22 H 156/95 H 93 05/28/19 18:31 05/28/19 18:31 05/28/19 18:31 05/28/19 18:31 05/28/19 18:31 Oxygen Flow Rate (L/min) 2 Oxygen Delivery Method Room Air Weight: 70.7 kg Body Mass Index (BMI) 22.4 Finger Stick Blood Glucose 67 Intake and Output for Last 24 Hours 05/26/19 05/27/19 05/28/19 23:59 23:59 23:59 Intake Total 3806.16 / 3926.16 2977.91 / 3217.91 3656.25 / 3656.25 Output Total 5200 / 6200 3350 / 3950 2700 / 2700 Balance -1393.84 / -2273.84 -372.09 / -732.09 956.25 / 956.25 Microbiology Past 72 Hours 05/25/19 06:20 Blood Culture - Preliminary Blood Culture (Wb) - Central Line No growth in 48 hours. 05/24/19 21:20 Blood Culture - Preliminary Blood Culture (Wb) - Left Forearm No growth in 48 hours. 05/23/19 09:35 Urine Culture - Preliminary Urine Catheter - Catheter Stenotrophomonas maltophilia Meth. resistant Staph. aureus 05/23/19 11:00 Blood Culture - Final Blood Culture (Wb) - Anticubital Left Staphylococcus epidermidis 05/23/19 11:00 Bacteria Detection (PCR) - Final Blood Culture (Wb) - Port Staphylococcus epidermidis mecA Resistance Marker Blood Culture - Final Staphylococcus epidermidis 05/25/19 21:17 Stool Occult Blood (LAUREN) - Final Stool Medical Necessity - Tobacco Use Smoking Status: Never smoker Tobacco Use: Non-smoker Assessment/Plan All Active Problems Fever (Acute) Sepsis (Acute) Infection due to human metapneumovirus (hMPV) (Resolved) Acute metabolic encephalopathy (Resolved) Leukocytosis (Acute) Acute distention of stomach (Acute) Urinary tract infection (Acute) Ileus (Acute) Aspiration pneumonia (Ruled-out) Sepsis (Acute) Acute kidney injury (Acute) Vomiting (Acute) #1 acute sepsis secondary to staph epidermidis and possible gram-negative bacterial urinary tract infection-patient was changed to Zyvox by infectious diseases by mouth- patient will remain on Zyvox #2 severe gastroparesis with constipation and nausea and vomiting-this has resolved at this time, patient had a bowel movement #3 hypokalemia-patient was given potassium supplementation IV, I will recheck BMP tomorrow #4 reflux esophagitis-continue oral Protonix #5 gastritis-patient is to remain on Protonix #6 acute kidney injury-on a backdrop of chronic kidney disease stage III- patient's creatinine is improved during her hospitalization #7 multiple sclerosis #8 iron deficiency anemia-patient is receiving Venofer #9 neurogenic bladder #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
[2019-05-28] MEDS: MELATONIN 10 MG TABLET PO (21:05)
[2019-05-29] VITALS (10 sets, daily range): BP systolic 136–170; BP diastolic 75–99; PULSE 89–104; RESP 16–26; TEMP 36.7–37.2; O2SAT 92–96
[2019-05-29] MEDS: 0.9% Normal Saline 1,000 ML 125 ML IV ×3 (01:58→17:24)
[2019-05-29 05:52] LABS: BUN 12 mg/dL (7-18); Creatinine, Serum 1.72 mg/dL (0.55-1.02); Estimated Creatinine Clearance 35.73 ml/min; Glucose 83 mg/dL (74-106)
[2019-05-29 05:53] LABS: Anion Gap 7 (5-15); Calcium,Total 8.6 mg/dL (8.5-10.1); Chloride 121 mmol/L (98-107); EST Glomerular Filtration Rate 32 mL/min (>60); Est Glom Filt Rate - Afr Amer 38 mL/min (>60); Potassium 2.8 mmol/L (3.5-5.1); Sodium Level 152 mmol/L (136-145)
[2019-05-29] MEDS: Baclofen 10 MG Tablet 5 MG PO (06:25)
[2019-05-29] MEDS: Ipratropium/Albuterol Sulfate 3 ML AMPUL.NEB INHALATION ×3 (07:05→18:52)
[2019-05-29] MEDS: Pantoprazole Sodium 40 MG Tablet PO (09:47)
[2019-05-29] MEDS: Linezolid 600 MG Tablet PO ×2 (09:47→21:20)
[2019-05-29] MEDS: Menthol/Lanolin/Calamine/Znox 113 GM Tube 1 APPLIC TOPICAL ×2 (09:49→21:13)
[2019-05-29] MEDS: Nystatin Powder 15gm Bottle 1 APPLIC TOPICAL ×2 (09:49→21:13)
--- NOTE | 2019-05-29 10:41 | PCM.PN.ID ---
Patient Problems: Active and Suspected Problems Leukocytosis (Acute) Acute distention of stomach (Acute) Urinary tract infection (Acute) Ileus (Acute) Sepsis (Acute) Acute kidney injury (Acute) Subjective: Feeling much better, hallucinations resolved. No fever. - Physical Exam General: Alert, Cooperative, No apparent distress Lungs: Clear to auscultation, Normal air movement Cardiovascular: Regular rate, Regular Rhythm Abdomen: Soft, Non Tender, Non-Distended Skin: No rashes Vital Signs Temp Pulse Resp BP Pulse Ox 98.0 F 90 18 136/99 H 94 05/29/19 09:39 05/29/19 09:39 05/29/19 09:39 05/29/19 09:39 05/29/19 09:39 Oxygen Flow Rate (L/min) 2 Oxygen Delivery Method Nasal Cannula Weight: 70.7 kg Body Mass Index (BMI) 22.4 Finger Stick Blood Glucose 67 Intake and Output for Last 24 Hours 05/27/19 05/28/19 05/29/19 23:59 23:59 23:59 Intake Total 2977.91 / 3217.91 3656.25 / 3656.25 1933.34 / 1933.34 Output Total 3350 / 3950 3450 / 3450 1250 / 1250 Balance -372.09 / -732.09 206.25 / 206.25 683.34 / 683.34 Microbiology Past 72 Hours 05/25/19 06:20 Blood Culture - Preliminary Blood Culture (Wb) - Central Line No growth in 48 hours. 05/24/19 21:20 Blood Culture - Preliminary Blood Culture (Wb) - Left Forearm No growth in 48 hours. 05/23/19 09:35 Urine Culture - Preliminary Urine Catheter - Catheter Stenotrophomonas maltophilia Meth. resistant Staph. aureus 05/23/19 11:00 Blood Culture - Final Blood Culture (Wb) - Anticubital Left Staphylococcus epidermidis 05/23/19 11:00 Bacteria Detection (PCR) - Final Blood Culture (Wb) - Port Staphylococcus epidermidis mecA Resistance Marker Blood Culture - Final Staphylococcus epidermidis Laboratory Tests Past 24 Hrs 05/29/19 05:13 Sodium 152 H Potassium 2.8 L Chloride 121 H Carbon Dioxide 24.0 Anion Gap 7 BUN 12 Creatinine 1.72 H Estim Creat Clear Calc 35.73 Est GFR (MDRD) Af Amer 38 L Est GFR (MDRD) Non-Af 32 L BUN/Creatinine Ratio 7.0 L Glucose 83 Calcium 8.6 Medical Necessity - Tobacco Use Smoking Status: Never smoker Tobacco Use: Non-smoker Route of nutrition/ use of supplements: [] Nutritional Intake: [] IV Site: [] Maldonado Catheter: [] - Assessment/Plan Antibiotics: [] Assessment/Plan: [] Active and Suspected Problems Leukocytosis (Acute) Acute distention of stomach (Acute) Urinary tract infection (Acute) Ileus (Acute) Aspiration pneumonia (Acute) Sepsis (Acute) Acute kidney injury (Acute) Sepsis - improved. Cr better, wbc normalized, hr improved. Bcx x2 with MRSE. Does have port in place. Ucx with MRSA and steno. Abd much improved. Dr. Vazquez following. Afebrile now, hallucination resolved with restarting baclofen. On linezolid. Stop date 06/02/19. Will follow
[2019-05-29] MEDS: Baclofen 10 MG Tablet PO ×3 (14:29→21:18)
--- NOTE | 2019-05-29 14:47 | CASEMGMT ---
Social Work Note RN NOA Kruse updated this worker that pt's would like the latest time transportation could be arranged via wheelchair van for tomorrow. SW placed a call to [facility] and arranged transportation via wheelchair van for 3:00pm tomorrow. Physician updated. Plan: Discharge home tomorrow with [facility] transporting via wheelchair van at 3:00pm CANDELARIO [place]W
--- NOTE | 2019-05-29 15:39 | CHAPLAIN ---
met spouse in the hallway and he invited this linen grader into room and to see the patient; spouse is very talkative and is pleased with a good turn around for patient;
[2019-05-29] MEDS: 0.9% NaCl IVPB Med Flush (250 mL) IV (18:46)
--- NOTE | 2019-05-29 20:12 | PN.SURG_ITS ---
Patient Problems: Active and Suspected Problems Leukocytosis (Acute) Acute distention of stomach (Acute) Urinary tract infection (Acute) Ileus (Acute) Sepsis (Acute) Acute kidney injury (Acute) Subjective: patient sleeping - Physical Exam Vital Signs Temp Pulse Resp BP Pulse Ox 98.9 F 104 H 18 157/87 H 92 05/29/19 18:43 05/29/19 18:43 05/29/19 18:43 05/29/19 18:43 05/29/19 18:43 Oxygen Flow Rate (L/min) 2 Oxygen Delivery Method Room Air Weight: 70.7 kg Body Mass Index (BMI) 22.4 Finger Stick Blood Glucose 67 Intake and Output for Last 24 Hours 05/27/19 05/28/19 05/29/19 23:59 23:59 23:59 Intake Total 2977.91 / 3217.91 3656.25 / 3656.25 3418.61 / 3418.61 Output Total 3350 / 3950 3450 / 3450 1825 / 1825 Balance -372.09 / -732.09 206.25 / 206.25 1593.61 / 1593.61 Microbiology Past 72 Hours 05/25/19 06:20 Blood Culture - Preliminary Blood Culture (Wb) - Central Line No growth in 48 hours. 05/24/19 21:20 Blood Culture - Preliminary Blood Culture (Wb) - Left Forearm No growth in 48 hours. Laboratory Tests Past 24 Hrs 05/29/19 05:13 Sodium 152 H Potassium 2.8 L Chloride 121 H Carbon Dioxide 24.0 Anion Gap 7 BUN 12 Creatinine 1.72 H Estim Creat Clear Calc 35.73 Est GFR (MDRD) Af Amer 38 L Est GFR (MDRD) Non-Af 32 L BUN/Creatinine Ratio 7.0 L Glucose 83 Calcium 8.6 Medical Necessity - Tobacco Use Smoking Status: Never smoker Tobacco Use: Non-smoker Assessment/Plan All Active Problems Fever (Acute) Sepsis (Acute) Infection due to human metapneumovirus (hMPV) (Resolved) Acute metabolic encephalopathy (Resolved) Leukocytosis (Acute) Acute distention of stomach (Acute) Urinary tract infection (Acute) Ileus (Acute) Aspiration pneumonia (Ruled-out) Sepsis (Acute) Acute kidney injury (Acute) Vomiting (Acute) abdominal pain, nausea, vomiting-acute gastric distention, left lower lobe pneumonia/infiltrates Patient is significantly more comfortable with NG tube and had a large volume of gastric aspirate. CT scan demonstrates normal-appearing small bowel and listed normal colon patient has significant right colon fecal loading patient with right-sided weakness, history of multiple sclerosis, elevated right hemidiaphragm with significant amount of colon above the liver. KUB this morning demonstrated still significant right colon stool, stomach appeared less distended. Spoke with radiology and planned to obtain Gastrografi n through NG tube to assess for possible differential diagnosis of SMA syndrome. this was obtained which seems to indicate significant contrast signal in the stomach with decreased gastric emptying. It also appears to me that the antral region is distorted up towards the right upper quadrant likely from her paralyzed hemidiaphragm area there do not seem to be enough contrast leaving the stomach quickly enough to truly ascertain SMA syndrome. At this point, I would recommend a prokinetic agent. I spoke with Dr. Florez. she was given magnesium citrate to not have any improvement in her bowel function. KUB yesterday demonstrated all the contrast study in the colon. Gastric emptying study - was obtained today which was felt to be within normal limits. I performed EGD Wednesday morning. No obvious abnormalities in the duodenum. gastritis and distal esophagitis. biopsies were taken. Will have patient follow up in my office in one week my impression currently is that this is still a combination of an ileus from her infection/sepsis and a degree of SMA syndrome. she is moving her bowels and somewhat tolerating a diet. She has no further vomiting issues The patient also has 2 of 2 blood cultures positive for MRSE. follow up blood cultures are currently negative. ID following, uncertain source. Plan for continued antibiotics. the patient is seemed increasingly confused over the last few days. In discussing the patient's mental status with her , he notes that she has had some paranoid delusions such as hearing threats in the hallway or confabulating stories from the TV. the patient was given Reglan initially but that was stopped in the half life of this should be out of her system. He notes that she had some events in the past when she was in the ICU intubated on propofol. She was confused prior to endoscopy yesterday. My plan is to discuss this with Dr. Hinton and consider neurology consultation.
[2019-05-29] MEDS: Lactulose 20 GM/30 ML UDC PO (21:14)
[2019-05-29] MEDS: MELATONIN 10 MG TABLET PO (21:23)
[2019-05-30] MEDS: 0.9% Normal Saline 1,000 ML 125 ML IV (01:56)
[2019-05-30 05:30] VITALS: BP 154/99; PULSE 93; RESP 16; TEMP 36.6; O2SAT 95
[2019-05-30 07:23] LABS: Anion Gap 5 (5-15); BUN 14 mg/dL (7-18); BUN/Creat Ratio 9.4 RATIO (10-20); Calcium,Total 8.4 mg/dL (8.5-10.1); Chloride 122 mmol/L (98-107); Creatinine, Serum 1.49 mg/dL (0.55-1.02); EST Glomerular Filtration Rate 37 mL/min (>60); Est Glom Filt Rate - Afr Amer 45 mL/min (>60); Estimated Creatinine Clearance 41.25 ml/min; Glucose 85 mg/dL (74-106); Potassium 3.2 mmol/L (3.5-5.1); Sodium Level 152 mmol/L (136-145)
--- NOTE | 2019-05-30 07:48 | PCM.PN.SRG ---
Patient Problems: Active and Suspected Problems Leukocytosis (Acute) Acute distention of stomach (Acute) Urinary tract infection (Acute) Ileus (Acute) Sepsis (Acute) Acute kidney injury (Acute) Subjective: alertand oriented today, no abdominal complaints - Physical Exam General: Alert, Oriented x3, Cooperative Lungs: Clear to auscultation, Normal air movement Cardiovascular: Regular rate, Regular Rhythm Abdomen: Bowel Sounds Present, Soft, Non Tender Vital Signs Temp Pulse Resp BP Pulse Ox 97.9 F 93 16 154/99 H 95 05/30/19 05:30 05/30/19 05:30 05/30/19 05:30 05/30/19 05:30 05/30/19 05:30 Oxygen Flow Rate (L/min) 2 Oxygen Delivery Method Room Air Weight: 70.7 kg Body Mass Index (BMI) 22.4 Finger Stick Blood Glucose 67 Intake and Output for Last 24 Hours 05/28/19 05/29/19 05/30/19 23:59 23:59 23:59 Intake Total 3656.25 / 3656.25 3898.61 / 3898.61 1065 / 1065 Output Total 3450 / 3450 2225 / 2225 675 / 675 Balance 206.25 / 206.25 1673.61 / 1673.61 390 / 390 Microbiology Past 72 Hours 05/25/19 06:20 Blood Culture - Preliminary Blood Culture (Wb) - Central Line No growth in 48 hours. 05/24/19 21:20 Blood Culture - Preliminary Blood Culture (Wb) - Left Forearm No growth in 48 hours. Laboratory Tests Past 24 Hrs 05/30/19 07:00 Sodium 152 H Potassium 3.2 L Chloride 122 H Carbon Dioxide 25.0 Anion Gap 5 BUN 14 Creatinine 1.49 H Estim Creat Clear Calc 41.25 Est GFR (MDRD) Af Amer 45 L Est GFR (MDRD) Non-Af 37 L BUN/Creatinine Ratio 9.4 L Glucose 85 Calcium 8.4 L Medical Necessity - Tobacco Use Smoking Status: Never smoker Tobacco Use: Non-smoker Assessment/Plan All Active Problems Fever (Acute) Sepsis (Acute) Infection due to human metapneumovirus (hMPV) (Resolved) Acute metabolic encephalopathy (Resolved) Leukocytosis (Acute) Acute distention of stomach (Acute) Urinary tract infection (Acute) Ileus (Acute) Aspiration pneumonia (Ruled-out) Sepsis (Acute) Acute kidney injury (Acute) Vomiting (Acute) abdominal pain, nausea, vomiting-acute gastric distention, left lower lobe pneumonia/infiltrates Patient is significantly more comfortable with NG tube and had a large volume of gastric aspirate. CT scan demonstrates normal-appearing small bowel and listed normal colon patient has significant right colon fecal loading patient with right-sided weakness, history of multiple sclerosis, elevated right hemidiaphragm with significant amount of colon above the liver. KUB this morning demonstrated still significant right colon stool, stomach appeared less distended. Spoke with radiology and planned to obtain Gastrografin through NG tube to assess for possible differential diagnosis of SMA syndrome. this was obtained which seems to indicate significant contrast signal in the stomach with decreased gastric emptying. It also appears to me that the antral region is distorted up towards the right upper quadrant likely from her paralyzed hemidiaphragm area there do not seem to be enough contrast leaving the stomach quickly enough to truly ascertain SMA syndrome. At this point, I would recommend a prokinetic agent. I spoke with Dr. Florez. she was given magnesium citrate to not have any improvement in her bowel function. KUB yesterday demonstrated all the contrast study in the colon. Gastric emptying study - was obtained today which was felt to be within normal limits. I performed EGD Wednesday morning. No obvious abnormalities in the duodenum. gastritis and distal esophagitis. biopsies were taken. Will have patient follow up in my office in one week my impression currently is that this is still a combination of an ileus from her infection/sepsis and a degree of SMA syndrome. she is moving her bowels and somewhat tolerating a diet. She has no further vomiting issues The patient also has 2 of 2 blood cultures positive for MRSE. follow up blood cultures are currently negative. ID following, uncertain source. Plan for continued antibiotics. the patient's increasingly confusion has resolved. Have the patient follow up in my office in 2 weeks
[2019-05-30 08:03] VITALS: PULSE 87; RESP 22; O2SAT 94
[2019-05-30] MEDS: Ipratropium/Albuterol Sulfate 3 ML AMPUL.NEB INHALATION ×2 (08:03→13:44)
[2019-05-30] MEDS: Potassium Chloride 10mEq/100mL 10 MEQ/100 ML IV.SOLN. 100 MEQ IV BOLUS ×3 (08:49→11:43)
[2019-05-30 08:58] VITALS: BP 151/77; PULSE 88; RESP 18; TEMP 36.5; O2SAT 94
[2019-05-30] MEDS: Nystatin Powder 15gm Bottle 1 APPLIC TOPICAL (10:26)
[2019-05-30] MEDS: Linezolid 600 MG Tablet PO (10:29)
[2019-05-30] MEDS: Pantoprazole Sodium 40 MG Tablet PO (10:29)
[2019-05-30] MEDS: Baclofen 10 MG Tablet PO ×2 (10:29→13:59)
--- NOTE | 2019-05-30 10:29 | PCM.PN.ID ---
Patient Problems: Active and Suspected Problems Leukocytosis (Acute) Acute distention of stomach (Acute) Urinary tract infection (Acute) Ileus (Acute) Sepsis (Acute) Acute kidney injury (Acute) Subjective: Feeling well, no fever. - Physical Exam General: Cooperative, No apparent distress Lungs: Clear to auscultation, Normal air movement Cardiovascular: Regular rate, Regular Rhythm Abdomen: Soft, Non Tender, Non-Distended Skin: No rashes Vital Signs Temp Pulse Resp BP Pulse Ox 97.7 F L 88 18 151/77 H 94 05/30/19 08:58 05/30/19 08:58 05/30/19 08:58 05/30/19 08:58 05/30/19 08:58 Oxygen Flow Rate (L/min) 2 Oxygen Delivery Method Room Air Weight: 70.7 kg Body Mass Index (BMI) 22.4 Finger Stick Blood Glucose 67 Intake and Output for Last 24 Hours 05/28/19 05/29/19 05/30/19 23:59 23:59 23:59 Intake Total 3656.25 / 3656.25 3898.61 / 3898.61 2035.83 / 2035.83 Output Total 3450 / 3450 2225 / 2225 675 / 675 Balance 206.25 / 206.25 1673.61 / 1673.61 1360.83 / 1360.83 Microbiology Past 72 Hours 05/25/19 06:20 Blood Culture - Final Blood Culture (Wb) - Central Line No growth in 5 days. 05/24/19 21:20 Blood Culture - Final Blood Culture (Wb) - Left Forearm No growth in 5 days. Laboratory Tests Past 24 Hrs 05/30/19 07:00 Sodium 152 H Potassium 3.2 L Chloride 122 H Carbon Dioxide 25.0 Anion Gap 5 BUN 14 Creatinine 1.49 H Estim Creat Clear Calc 41.25 Est GFR (MDRD) Af Amer 45 L Est GFR (MDRD) Non-Af 37 L BUN/Creatinine Ratio 9.4 L Glucose 85 Calcium 8.4 L Medical Necessity - Tobacco Use Smoking Status: Never smoker Tobacco Use: Non-smoker Route of nutrition/ use of supplements: [] Nutritional Intake: [] IV Site: [] Maldonado Catheter: [] - Assessment/Plan Antibiotics: [] Assessment/Plan: [] Active and Suspected Problems Leukocytosis (Acute) Acute distention of stomach (Acute) Urinary tract infection (Acute) Ileus (Acute) Aspiration pneumonia (Acute) Sepsis (Acute) Acute kidney injury (Acute) Sepsis - resolved. Cr better, wbc normalized, hr improved. Bcx x2 with MRSE. Does have port in place. Ucx with MRSA and steno. Abd much improved. Dr. Vazquez following. Afebrile now, hallucination resolved with restarting baclofen. On linezolid. Stop date 06/02/19. Will follow, d/w primary team
[2019-05-30 13:44] VITALS: RESP 23
[2019-05-30 14:04] VITALS: BP 155/91; PULSE 97; RESP 18; TEMP 36.6; O2SAT 93
--- NOTE | 2019-05-30 14:39 | DCINST_ITS ---
- Discharge Diagnoses Current Active Problems: Current Active and Chronic Problems Leukocytosis (Acute) Acute distention of stomach (Acute) Urinary tract infection (Acute) Ileus (Acute) Sepsis (Acute) Acute kidney injury (Acute) You will use the following diet at home:: Regular Your food should be the consistency of: Mechanical soft (ground) Your liquids should be the consistency of: [place] Thick Discharge Activity: Return to Normal Activity Weight Bearing Status: Full weight bearing Allergies/Adverse Reactions: Allergies ciprofloxacin [From Cipro] Adverse Reaction (Verified 05/23/19 07:49) hypotension interacts w/ zanaflex and baclofen doxycycline Adverse Reaction (Verified 05/23/19 07:49) hypotension interacts w/ zanaflex and baclofen levofloxacin [From Levaquin] Adverse Reaction (Verified 05/23/19 07:49) hypotension interacts w/ zanaflex and baclofen morphine Adverse Reaction (Verified 05/23/19 07:49) hallucinations piperacillin [From Zosyn] Adverse Reaction (Verified 05/23/19 07:49) hypotension interacts w/ zanaflex and baclofen sulfamethoxazole [From Bactrim] Adverse Reaction (Verified 05/23/19 07:49) hypotension interacts w/ zanaflex and baclofen tazobactam [From Zosyn] Adverse Reaction (Verified 05/23/19 07:49) hypotension interacts w/ zanaflex and baclofen trimethoprim [From Bactrim] Adverse Reaction (Verified 05/23/19 07:49) hypotension interacts w/ zanaflex and baclofen vancomycin Adverse Reaction (Verified 05/23/19 07:49) developed toxic levels Medications to take at Discharge Bisacodyl [Dulcolax] 10 mg RECTAL DAILY PRN 07/01/18 Calcitriol [Rocaltrol] 0.25 mcg PO QHS 07/01/18 Acetaminophen [Tylenol] 1,000 mg PO Q6H PRN PRN 02/15/19 Fluticasone 0.05% [Flonase Nasal [place]] 1 spray NASAL BID 02/26/19 Mineral Oil/Petrolatum,White [Eucerin] 1 applic TOPICAL BID PRN PRN 02/26/19 Albuterol Aerosols [Ventolin Aerosols] 2.5 mg INHALATION Q6H PRN PRN 03/25/19 Lactulose [Chronulac] 60 gm PO QODAY 03/25/19 Menthol [Bengay Vanishing Scent] 1 applic TOPICAL TID PRN PRN 03/25/19 Menthol/Lanolin/Calamine/Znox [Calmoseptine Ointment] 1 applic TOPICAL BID 03/25/19 Nystatin Powder [Mycostatin Powder] 1 applic TOPICAL BID #1 bottle 03/29/19 Atorvastatin Calcium [Lipitor] 40 mg PO QHS 05/23/19 Baclofen 20 mg PO QHS 05/23/19 Baclofen [Lioresal] 1 tab PO BID 05/23/19 Cholecalciferol (Vitamin D3) [Vitamin D3] 5,000 unit PO DAILY 05/23/19 Fexofenadine HCl [Brook Allergy] 180 mg PO DAILY 05/23/19 Iron Polysaccharide Complex [Ferrex 150] 150 mg PO DAILY 05/23/19 Krill Oil 500 mg PO DAILY 05/23/19 L.acidoph,Paracasei, B.lactis [Probiotic] 1 ea PO QHS 05/23/19 Magnesium Oxide [Mag-Ox 400] 300 mg PO QHS 05/23/19 Melatonin 5 mg PO QHS 05/23/19 Vitamin B Complex 1 ea PO DAILY 05/23/19 Linezolid [Zyvox] 600 mg PO Q12H #7 tab 05/30/19 Pantoprazole Sodium [Protonix] 40 mg PO DAILY #30 tab 05/30/19 The following prescriptions were given: Pantoprazole Sodium [Protonix] 40 mg PO DAILY #30 tab Transmission Status: Pending to [facility]/pharmacy #[id number] Linezolid [Zyvox] 600 mg PO Q12H #7 tab Transmission Status: Pending to [facility]/pharmacy #[id number] Primary Care Physician: Alexandria Carranza MD [Primary Care Provider] - Please follow up with your Primary Care Physician in: as directed Test Results: Test results from this visit will be discussed in further detail at your follow- up appointment, if applicable.
--- NOTE | 2019-05-31 16:09 | CASEMGMT ---
SHARLENE LATHAM DC PHONE CALL DC DATE: 05.30.19 DC Disposition: Home with [facility] Diagnosis on Discharge: Aspiration pneumonia, Sepsis LACE/STRATA: 09/06 SHARLENE LATHAM called to [facility]. Nurse to see pt today. Contact had been made with , Siva for case to be opened today. No further information is needed by [facility]. Michi DUONG RN AC
--- NOTE | 2019-06-01 11:35 | DS.PCM_ITS ---
Discharge Date and Diagnosis Date of Admission: 05/23/19 Date of Discharge: 05/30/19 - Primary Discharge Diagnosis #1 acute sepsis secondary to staph epidermidis and possible gram-negative bacterial urinary tract infection related to chronic suprapubic catheter #2 severe gastroparesis with constipation and nausea and vomiting #3 hypokalemia #4 reflux esophagitis #5 gastritis #6 acute kidney injury-on a backdrop of chronic kidney disease stage III #7 multiple sclerosis #8 iron deficiency anemia #9 neurogenic bladder #10 elevated right hemidiaphragm #11 hallucinations secondary to baclofen withdrawal - Secondary Discharge Diagnosis Chronic Problems Neurogenic bladder (Chronic) MRSA colonization (Chronic) Bilateral hydronephrosis (Chronic) Iron deficiency anemia (Chronic) Hypomagnesemia (Chronic) Dehydration (Chronic) Constipation (Chronic) Declining functional status (Chronic) Hydronephrosis (Chronic) Bilateral. Complicated urinary tract infection (Chronic) Chronic suprapubic catheter. Vitamin D deficiency (Chronic) Muscle spasm (Chronic) OAB (overactive bladder) (Chronic) Allergic rhinitis (Chronic) Insomnia (Chronic) Hyperlipidemia (Chronic) CKD (chronic kidney disease) stage 4, GFR 15-29 ml/min (Chronic) Transient ischemic attack (Chronic) Multiple sclerosis (Chronic) Right hemiparesis (Chronic) Migraine headache (Chronic) Hospital Course and Treatment Operations: None Procedures: EGD Summary of Care Provided: The patient is a 64 year old F who was seen in the emergency room at [facility] after being brought in by her with complaints of abdominal pain, nausea, and vomiting x2 days. Patient has a history of MS and receives care from her at home. Work-up in the emergency room revealed the patient have leukocytosis with a white count of 22.7, creatinine was 2.78 which was elevated over the patient's baseline, urinalysis showed leukocyte esterase which is elevated and white blood cells in the urine. CT scan of the abdomen and pelvis was obtained, there is noted to be gastric distention even after an NG had been inserted in the emergency room. Left lower lobe atelectasis versus infiltrate was noted but it was not felt that the patient had pneumonia. Patient was admitted for acute sepsis secondary to suspected aspiration pneumonia, however, on follow-up in the hospital, it was felt that she was septic from a urinary tract infection secondary to her chronic Maldonado catheter placement and cultures resulted in a gram-negative michell along with staph epidermidis. Her abdominal distention was treated with NG tube and she was seen in consultation by surgery, initially it was felt that the patient may have SMA syndrome, but in follow-up in the hospital, it is felt that she did not have this. Patient is NG tube finally was removed, she had a gastric emptying study performed which showed no delay in her gastric emptying. Patient was given lactulose for fecal retention. Patient's medications were adjusted and when the patient was off baclofen, she was noted to hallucinate so the baclofen was restarted. Patient was seen by speech, PT, and OT, did not want the patient to have placement in a fdc facility, patient was given IV Venofer for her iron deficiency anemia. Etiology of the iron deficiency anemia was not noted but felt to probably secondary to nutritional reasons. EGD was performed which showed gastritis and reflux esophagitis. Further note, patient was also seen by infectious diseases while hospitalized. On 05/30/2019, patient was seen and examined, on examination she appeared debilitated. Vital signs as documented. Skin warm and dry and without overt rashes. Neck without JVD. Lungs clear. Heart exam notable for regular rhythm, normal sounds and absence of murmurs, rubs or gallops. Abdomen unremarkable and without evidence of organomegaly, masses, or abdominal aortic enlargement. Extremities nonedematous. Neuro: Cranial nerves II through XII are grossly intact, no focal motor deficits were noted, sensation to light touch and pinprick is intact. Psych: Patient is alert and oriented x3, she does not appear anxious or depressed On 05/30/2019 she was discharged in stable condition - Physical Exam Vital Signs Temp Pulse Resp BP Pulse Ox 97.8 F 97 18 155/91 H 93 05/30/19 14:04 05/30/19 14:04 05/30/19 14:04 05/30/19 14:04 05/30/19 14:04 Oxygen Flow Rate (L/min) 2 Oxygen Delivery Method Room Air Weight: 70.7 kg Body Mass Index (BMI) 22.4 Finger Stick Blood Glucose 67 Intake and Output for Last 24 Hours 05/30/19 05/31/19 06/01/19 23:59 23:59 23:59 Intake Total 2586.25 / 2586.25 Output Total 675 / 675 Balance 1911.25 / 1911.25 Microbiology Past 72 Hours 05/23/19 09:35 Urine Culture - Final Urine Catheter - Catheter Stenotrophomonas maltophilia Meth. resistant Staph. aureus 05/25/19 06:20 Blood Culture - Final Blood Culture (Wb) - Central Line No growth in 5 days. 05/24/19 21:20 Blood Culture - Final Blood Culture (Wb) - Left Forearm No growth in 5 days. Discharge Activity: Return to Normal Activity Weight Bearing Status: Full weight bearing Home Medications: Medications to take at Discharge Bisacodyl [Dulcolax] 10 mg RECTAL DAILY PRN 07/01/18 Calcitriol [Rocaltrol] 0.25 mcg PO QHS 07/01/18 Acetaminophen [Tylenol] 1,000 mg PO Q6H PRN PRN 02/15/19 Fluticasone 0.05% [Flonase Nasal [place]] 1 spray NASAL BID 02/26/19 Mineral Oil/Petrolatum,White [Eucerin] 1 applic TOPICAL BID PRN PRN 02/26/19 Albuterol Aerosols [Ventolin Aerosols] 2.5 mg INHALATION Q6H PRN PRN 03/25/19 Lactulose [Chronulac] 60 gm PO QODAY 03/25/19 Menthol [Bengay Vanishing Scent] 1 applic TOPICAL TID PRN PRN 03/25/19 Menthol/Lanolin/Calamine/Znox [Calmoseptine Ointment] 1 applic TOPICAL BID 03/25/19 Nystatin Powder [Mycostatin Powder] 1 applic TOPICAL BID #1 bottle 03/29/19 Atorvastatin Calcium [Lipitor] 40 mg PO QHS 05/23/19 Baclofen 20 mg PO QHS 05/23/19 Baclofen [Lioresal] 1 tab PO BID 05/23/19 Cholecalciferol (Vitamin D3) [Vitamin D3] 5,000 unit PO DAILY 05/23/19 Fexofenadine HCl [[place]ok Allergy] 180 mg PO DAILY 05/23/19 Iron Polysaccharide Complex [Ferrex 150] 150 mg PO DAILY 05/23/19 Krill Oil 500 mg PO DAILY 05/23/19 L.acidoph,Paracasei, B.lactis [Probiotic] 1 ea PO QHS 05/23/19 Magnesium Oxide [Mag-Ox 400] 300 mg PO QHS 08/20/19 Melatonin 5 mg PO QHS 05/23/19 Vitamin B Complex 1 ea PO DAILY 05/23/19 Linezolid [Zyvox] 600 mg PO Q12H #7 tab 05/30/19 Pantoprazole Sodium [Protonix] 40 mg PO DAILY #30 tab 05/30/19 Following Prescrptions Were Given to Patient: Pantoprazole Sodium [Protonix] 40 mg PO DAILY #30 tab Transmission Status: Received by [facility]pharmacy #[id number] Linezolid [Zyvox] 600 mg PO Q12H #7 tab Transmission Status: Received by [id number] Primary Care Physician: Alexandria Carranza MD [Primary Care Provider] - Please follow up with your Primary Care Physician in: as directed Disposition: Home with Home Health Minutes spent on discharge:: 35 Patient Condition:: Stable Medical Necessity - Tobacco Use Smoking Status: Never smoker Tobacco Use: Non-smoker Meaningful Use Info Meaningful Use Diagnoses (Choose all that apply): None applicable Code Visit Inpatient E&M: 69212 Disch Hosp
== END 2019-05-30 15:42 | disposition home health service (06) | DRG 698 ==
LOC: ED 08:16 → MS3 12:21
PROVIDERS: Internal Medicine; Surgery; Admitting Provider Family Medicine; Emergency Provider Emergency Medicine; Family Provider Internal Medicine; PCP Internal Medicine; Referring Provider Family Medicine; Visit Provider Internal Medicine
PROC: 0DJ08ZZ Inspection of Upper Intestinal Tract, Via Natural or Artificial Opening Endoscopic (ICD-10-PCS; CPT 43235; principal; 2019-05-27 07:25)
DX: T83.510A Infection and inflammatory reaction due to cystostomy catheter, initial encounter (principal); A41.1 Sepsis due to other specified staphylococcus; N17.9 Acute kidney failure, unspecified; N39.0 Urinary tract infection, site not specified; R44.3 Hallucinations, unspecified; G35 Multiple sclerosis; K31.84 Gastroparesis; N31.9 Neuromuscular dysfunction of bladder, unspecified; E87.6 Hypokalemia; K21.0 Gastro-esophageal reflux disease with esophagitis; K29.70 Gastritis, unspecified, without bleeding; D50.9 Iron deficiency anemia, unspecified; N20.0 Calculus of kidney; E83.42 Hypomagnesemia; Z74.01 Bed confinement status; B96.89 Other specified bacterial agents as the cause of diseases classified elsewhere; Z87.440 Personal history of urinary (tract) infections
CPT/HCPCS: 36591; 71045; 71046; 74018; 74019; 74176; 74250; 78264; 80048; 80053; 81001; 82274; 82728; 83540; 83550; 83605; 83690; 83735; 84100; 84484; 85014; 85018; 85025; 87040; 87077; 87086; 87088; 87149; 87186; 87449; 88305; 92526; 92610; 93005; 93306; 94640; 94667; 94668; 97110; 97162; 97166; 97530; 97535; 97802; 99285; A9541; J1756; J7030; J7050; Q9957; A4216; J2405

== ENCOUNTER → 2019-05-31 14:49 | Outpatient (CLI) | payer MEDICARE, SELFPAY ==
[2019-05-23 13:15] VITALS: BMI 22.4
[2019-05-31 15:19] LABS: Color, Urine Yellow (Yellow); Glucose, Dipstick Normal (Normal); Ketone-Dipstick 5 mg/dl (Negative); Leukocyte Esterase-Dipstick 500 /ul (Negative); Nitrite-Dipstick Negative (Negative); Occult Blood-Urine 150 /ul (Negative); Protein-Dipstick 100 mg/dl (Negative); Urine Bilirubin Dipstick Negative (Negative); Urine Clarity Clear (Clear); Urine Urobilinogen Normal (Normal)
[2019-05-31 15:27] LABS: Absolute Lymphocyte Count 2.46 X10^3/uL (0.83-4.51); Absolute Neutrophil Count 5.8 X10^3/uL (2.0-7.7); Basophil# 0.06 X10^3/uL; Basophil% 0.6 % (0-1); Eosinophil# 0.43 X10^3/uL; Eosinophils% 4.5 % (0-5); Hematocrit 39.4 % (37-47); Hemoglobin 12.5 g/dL (12.0-15.0); Lymphocyte # 2.46 X10^3/ul (4.0); Lymphocyte % 25.6 % (19-41); Mean Corp Hgb Conc 31.7 g/dL (32-36); Mean Corpuscular Hgb 28.9 pg (27.0-32.0); Mean Corpuscular Volume 91.2 fL (81-99); Mean Platelet Vol. 9.9 fl (6.2-12.0); Monocyte# 0.81 X10^3/uL; Monocyte% 8.4 % (0-10); NRBC Flagged by Analyzer 0 % (0-5); Neutrophil % 60.5 % (47-70); Platelet Count 219 K/mm3 (150-450); RBC Distribution Width CV 15.9 % (11.6-14.6); RBC Distribution Width SD 52.7 fl (35.1-43.9); Red Blood Count 4.32 M/mm3 (4.2-5.4); White Blood Count 9.6 K/mm3 (4.4-11.0)
[2019-05-31 15:29] LABS: Anion Gap 10 (5-15); BUN 13 mg/dL (7-18); BUN/Creat Ratio 9.8 RATIO (10-20); Calcium,Total 8.5 mg/dL (8.5-10.1); Chloride 108 mmol/L (98-107); Creatinine, Serum 1.33 mg/dL (0.55-1.02); EST Glomerular Filtration Rate 43 mL/min (>60); Est Glom Filt Rate - Afr Amer 52 mL/min (>60); Glucose 63 mg/dL (74-106); Potassium 3.3 mmol/L (3.5-5.1); Sodium Level 144 mmol/L (136-145)
== END ==
PROVIDERS: Family Provider Internal Medicine; PCP Internal Medicine; Referring Provider Internal Medicine; Visit Provider Internal Medicine
DX: A41.9 Sepsis, unspecified organism (principal); J69.0 Pneumonitis due to inhalation of food and vomit
CPT/HCPCS: 80048; 81002; 85025; 87077; 87086; 87088; 87186

== ENCOUNTER 2019-06-03 12:31 | Inpatient (IN) | payer MEDICARE, SELFPAY ==
[2019-05-23 13:15] VITALS: BMI 22.4
[2019-06-03] VITALS (7 sets, daily range): BP systolic 132–150; BP diastolic 80–97; PULSE 86–102; RESP 12–18; TEMP 36–36.7; O2SAT 95–100; BMI 21.9; BMI 20.7; BMI 20.8
[2019-06-03 12:51] LABS: Bedside Glucose 87 mg/dL (70-110)
--- NOTE | 2019-06-03 12:54 | RAD_ITS ---
STUDY: X-RAY CHEST REASON FOR EXAM: Female, 64 years old. Altered mental status TECHNIQUE: Frontal view of the chest COMPARISON: 05/25/2019 FINDINGS: There is a left-sided port with its tip in the superior vena cava. There is stable elevation of the right hemidiaphragm with right basilar atelectasis. The lungs are otherwise clear. There are no pleural effusions. There is no pneumothorax. The heart is normal in size. The visualized osseous structures are within normal limits. RAD/Chest 1 View (Portable) IMPRESSION: No acute thoracic pathology. Electronically Signed: Chuy Herring, at 13:51 EDT Tel , Service support ,
[2019-06-03 13:58] LABS: Absolute Lymphocyte Count 2.53 X10^3/uL (0.83-4.51); Basophil# 0.08 X10^3/uL; Basophil% 0.8 % (0-1); Eosinophil# 0.34 X10^3/uL; Eosinophils% 3.5 % (0-5); Hematocrit 43.7 % (37-47); Hemoglobin 14.3 g/dL (12.0-15.0); Lymphocyte # 2.53 X10^3/ul (4.0); Lymphocyte % 25.9 % (19-41); Mean Corp Hgb Conc 32.7 g/dL (32-36); Mean Corpuscular Hgb 29.5 pg (27.0-32.0); Mean Corpuscular Volume 90.3 fL (81-99); Mean Platelet Vol. 9.8 fl (6.2-12.0); Monocyte# 0.81 X10^3/uL; Monocyte% 8.3 % (0-10); NRBC Flagged by Analyzer 0 % (0-5); Neutrophil # 5.97 X10^3/uL (2.7-7.7); Neutrophil % 61.2 % (47-70); Platelet Count 221 K/mm3 (150-450); RBC Distribution Width CV 15.8 % (11.6-14.6); RBC Distribution Width SD 50.3 fl (35.1-43.9); Red Blood Count 4.84 M/mm3 (4.2-5.4); White Blood Count 9.8 K/mm3 (4.4-11.0)
[2019-06-03 14:13] LABS: ALB/GLOB Ratio 0.8 RATIO (0.9-2.4); AST(SGOT) 28 U/L (15-37); Alanine Aminotransfer ALT/SGPT 26 U/L (13-56); Albumin, Serum 3.4 g/dL (3.2-5.0); Alkaline Phosphatase 86 U/L (45-117); Anion Gap 7 (5-15); BUN 19 mg/dL (7-18); BUN/Creat Ratio 12.7 RATIO (10-20); Calcium,Total 9.9 mg/dL (8.5-10.1); Chloride 109 mmol/L (98-107); EST Glomerular Filtration Rate 37 mL/min (>60); Est Glom Filt Rate - Afr Amer 45 mL/min (>60); Estimated Creatinine Clearance 40.97 ml/min; Globulin 4.5 g/dL (2.2-4.2); Glucose 87 mg/dL (74-106); Potassium 3.7 mmol/L (3.5-5.1); Protein, Total 7.9 g/dL (6.4-8.2); Sodium Level 142 mmol/L (136-145)
[2019-06-03 15:01] LABS: Mucous, Urine 0 SEEN /hpf (<or=2+)
[2019-06-03 15:03] LABS: Color, Urine Yellow (Yellow); Glucose, Dipstick Normal (Normal); Ketone-Dipstick 5 mg/dl (Negative); Leukocyte Esterase-Dipstick 500 /ul (Negative); Nitrite-Dipstick Negative (Negative); Occult Blood-Urine 50 /ul (Negative); Protein-Dipstick 100 mg/dl (Negative); Urine Bilirubin Dipstick Negative (Negative); Urine Clarity Sl. Cloudy (Clear); Urine Urobilinogen Normal (Normal); Urine pH 6.5 (5.0 - 8.0)
[2019-06-03 15:35] LABS: Red Blood Cells-Urine 5-10 SEEN /hpf (0-5); Squamous Epithelial Cells - UA 0-5 SEEN /hpf (5-10); White Blood Cells >100 SEEN /hpf (0-5)
[2019-06-03 15:36] LABS: Bacteria 2+ /hpf (None Seen); Yeast-Urine 2+ /hpf (None Seen)
--- NOTE | 2019-06-03 15:51 | HP.PCM_ITS ---
<Kailyn Red - Last Filed: 06/03/19 16:12> Problem List (1) Neurogenic bladder Status: Chronic (2) MRSA colonization Status: Chronic (3) Bilateral hydronephrosis Status: Chronic (4) Iron deficiency anemia Status: Chronic (5) Infection due to human metapneumovirus (hMPV) Status: Resolved (6) Ileus Status: Resolved (7) Constipation Status: Chronic (8) Declining functional status Status: Chronic (9) Complicated urinary tract infection Status: Chronic Comment: Chronic suprapubic catheter. (10) Vitamin D deficiency Status: Chronic (11) Muscle spasm Status: Chronic (12) OAB (overactive bladder) Status: Chronic (13) Allergic rhinitis Status: Chronic (14) Insomnia Status: Chronic (15) Hyperlipidemia Status: Chronic (16) CKD (chronic kidney disease) stage 4, GFR 15-29 ml/min Status: Chronic (17) Transient ischemic attack Status: Chronic (18) Multiple sclerosis Status: Chronic (19) Right hemiparesis Status: Chronic (20) Migraine headache Status: Chronic History of Present Illness Date of Admission: 06/03/19 Chief Complaint: Poor oral intake, mental status change, muscle spasm. The patient is a 64 year old F who presents to the emergency room due to (public health technician) concern for poor oral intake, intermittent muscle spasms. Patient not responsive verbally. Appears drowsy. states that he has noticed a change in patient's mental status since initiating Zyvox which she was started on approximately 1 week ago due where she was being treated for staph epidermidis and complicated UTI with chronic suprapubic catheter. Zyvox has since been discontinued and he reports patient is still not responding appropriately. He is concerned that she is dehydrated given poor oral intake at home. He states her eyes are not tracking and that she is not responding verbally as she normally does. states that patient needs admitted for IV fluids until she is able to tolerate oral intake. He also feels that she might have a serotonin syndrome based on his research. Patient recently discharged 06/01/2019 following 1 week admission where she was treated for sepsis secondary to staph epidermidis and possible gram-negative bacterial urinary tract infection, severe gastroparesis, reflux esophagitis and acute kidney injury. She has a past medical history of multiple sclerosis with chronic right hemiparesis/debility, chronic kidney disease stage IV, recurrent urosepsis with suprapubic catheter, history of TIA, hyperlipidemia, chronic constipation, iron deficiency anemia. Past Medical History Past Medical History (Chronic Problems): Chronic Problems Neurogenic bladder (Chronic) MRSA colonization (Chronic) Bilateral hydronephrosis (Chronic) Iron deficiency anemia (Chronic) Constipation (Chronic) Declining functional status (Chronic) Complicated urinary tract infection (Chronic) Chronic suprapubic catheter. Vitamin D deficiency (Chronic) Muscle spasm (Chronic) OAB (overactive bladder) (Chronic) Allergic rhinitis (Chronic) Insomnia (Chronic) Hyperlipidemia (Chronic) CKD (chronic kidney disease) stage 4, GFR 15-29 ml/min (Chronic) Transient ischemic attack (Chronic) Multiple sclerosis (Chronic) Right hemiparesis (Chronic) Migraine headache (Chronic) Allergies ciprofloxacin [From Cipro] Adverse Reaction (Verified 05/23/19 07:49) hypotension interacts w/ zanaflex and baclofen doxycycline Adverse Reaction (Verified 05/23/19 07:49) hypotension interacts w/ zanaflex and baclofen levofloxacin [From Levaquin] Adverse Reaction (Verified 05/23/19 07:49) hypotension interacts w/ zanaflex and baclofen morphine Adverse Reaction (Verified 05/23/19 07:49) hallucinations piperacillin [From Zosyn] Adverse Reaction (Verified 05/23/19 07:49) hypotension interacts w/ zanaflex and baclofen sulfamethoxazole [From Bactrim] Adverse Reaction (Verified 05/23/19 07:49) hypotension interacts w/ zanaflex and baclofen tazobactam [From Zosyn] Adverse Reaction (Verified 05/23/19 07:49) hypotension interacts w/ zanaflex and baclofen trimethoprim [From Bactrim] Adverse Reaction (Verified 05/23/19 07:49) hypotension interacts w/ zanaflex and baclofen vancomycin Adverse Reaction (Verified 05/23/19 07:49) developed toxic levels Home Medications: Ambulatory Orders Medication Instructions Recorded Bisacodyl [Dulcolax] 10 mg RECTAL DAILY PRN 07/01/18 Acetaminophen [Tylenol] 1,000 mg PO Q6H PRN PRN 02/15/19 Lactulose [Chronulac] 60 gm PO QODAY 03/25/19 Baclofen 20 mg PO QHS 05/23/19 Baclofen [Lioresal] 1 tab PO BID 05/23/19 Iron Polysaccharide Complex 150 mg PO DAILY 05/23/19 [Ferrex 150] Magnesium Oxide [Mag-Ox 400] 300 mg PO QHS 05/23/19 Melatonin 5 mg PO QHS 05/23/19 Pantoprazole Sodium [Protonix] 40 mg PO DAILY #30 tab 05/30/19 Surgical History: adenoidectomy, tonsillectomy, - - Right shoulder surgery, ORIF right wrist, suprapubic catheter placement, Port placement. Psychiatric History: Anxiety SOCIAL SERVICES COORDINATOR History: No pertinent SOCIAL SERVICES COORDINATOR history Lives: Spouse/ Significant Other Smoking Status: Never smoker Alcohol: None Drugs: None - *Family History Maternal History Items: - - Osteoporosis Paternal History Items: Heart Disease, - - HLD Review of Systems Unable to obtain accurate/complete ROS d/t: Patient non-verbal VTE Information - Inpt Only VTE Present on Admission: No VTE Mechan Device Prophylaxis: None VTE Pharm Prophylaxis ordered?: Yes - Physical Exam General: - - Drowsy, not verbally responsive, appears fatigued HEENT: Atraumatic, PERRLA, EOMI, Normocephalic Oral: Dry Mucosa Neck: Supple, No JVD, Negative Carotid Bruits Lungs: Clear to auscultation, Diminished Cardiovascular: Regular rate, Regular Rhythm, Normal S1, Normal S2, No murmurs Abdomen: Bowel Sounds Present, Soft, Non Tender, Non-Distended, - - Suprapubic catheter in place Extremities: No clubbing, No cyanosis, No edema, Capillary Refill Less than 3 Seconds Skin: No rashes, No breakdown Musculoskeletal: No Tenderness to Palpation of Joints or Extremities Neurological: Cranial nerves II-XII grossly intact, Neuro grossly intact Psych/Mental Status: Flat Affect Vital Signs Temp Pulse Resp BP Pulse Ox 96.8 F L 86 12 136/94 H 100 06/03/19 12:34 06/03/19 14:00 06/03/19 14:00 06/03/19 14:00 06/03/19 14:00 Oxygen Delivery Method Room Air Weight: 152 lb 8.958 oz Body Mass Index (BMI) 21.9 Finger Stick Blood Glucose 67 Intake and Output for Last 24 Hours 06/01/19 06/02/19 06/03/19 23:59 23:59 23:59 Intake Total 500 / 500 Balance 500 / 500 Laboratory Tests Past 24 Hrs 06/03/19 06/03/19 06/03/19 13:42 13:42 14:50 WBC 9.8 RBC 4.84 Hgb 14.3 Hct 43.7 MCV 90.3 MCH 29.5 MCHC 32.7 RDW Std Deviation 50.3 H RDW Coeff of Niurka 15.8 H Plt Count 221 MPV 9.8 Immature Gran % (Auto) 0.300 Neut % (Auto) 61.2 Lymph % (Auto) 25.9 Emmet % (Auto) 8.3 Eos % (Auto) 3.5 Baso % (Auto) 0.8 Absolute Neuts (auto) 6.0 Absolute Lymphs (auto) 2.53 Nucleated RBC % 0 Sodium 142 Potassium 3.7 Chloride 109 H Carbon Dioxide 26.0 Anion Gap 7 BUN 19 H Creatinine 1.50 H Estim Creat Clear Calc 40.97 Est GFR (MDRD) Af Amer 45 L Est GFR (MDRD) Non-Af 37 L BUN/Creatinine Ratio 12.7 Glucose 87 Calcium 9.9 Total Bilirubin 0.50 AST 28 ALT 26 Alkaline Phosphatase 86 Total Protein 7.9 Albumin 3.4 Globulin 4.5 H Albumin/Globulin Ratio 0.8 L Urine Color Yellow Urine Clarity Sl. Cloudy Urine pH 6.5 Ur Specific [place] 1.010 Urine Protein 100 H Urine Glucose (UA) Normal Urine Ketones 5 H Urine Occult Blood 50 H Urine Nitrite Negative Urine Bilirubin Negative Urine Urobilinogen Normal Ur Leukocyte Esterase 500 H Urine RBC 5-10 SEEN Urine WBC >100 SEEN Ur Squamous Epith Cells 0-5 SEEN Urine Bacteria 2+ Urine Mucus 0 SEEN Urine Yeast 2+ POC Glucose 06/03/19 12:45 POC Glucose 87 Assessment/Plan 1. Poor oral intake, functional decline-IV fluids. Nutrition consult. Speech therapy consult. PT/OT. 2. Mental status change, per -unclear etiology. reports intermittent agitation. PRN Ativan for agitation. Chest x-ray on admission without acute process. Afebrile, no leukocytosis. No evidence of infectious process. 3. Multiple sclerosis with chronic right hemiparesis/debility-continue home baclofen regimen. PT/OT. 4. Chronic kidney disease stage IV-baseline creatinine 2.1-2.2. Creatinine currently improved from baseline. 5. Recurrent urosepsis with chronic suprapubic catheter-no evidence of current infection. 6. Recent diagnosis reflux esophagitis-continue PPI. 7. History of TIA 8. Hyperlipidemia-not on statin. 9. Chronic constipation-recent severe gastroparesis. Resolved. 10. Iron deficiency anemia-stable, continue iron supplementation. DVT prophylaxis-heparin subcu This patient was seen by MARTHA Shannon under the supervision of Dr. Nuñez. <JoaquinToo E - Last Filed: 06/03/19 17:09> History of Present Illness The patient is a 64 year old F [] Past Medical History Allergies ciprofloxacin [From Cipro] Adverse Reaction (Verified 05/23/19 07:49) hypotension interacts w/ zanaflex and baclofen doxycycline Adverse Reaction (Verified 05/23/19 07:49) hypotension interacts w/ zanaflex and baclofen levofloxacin [From Levaquin] Adverse Reaction (Verified 05/23/19 07:49) hypotension interacts w/ zanaflex and baclofen morphine Adverse Reaction (Verified 05/23/19 07:49) hallucinations piperacillin [From Zosyn] Adverse Reaction (Verified 05/23/19 07:49) hypotension interacts w/ zanaflex and baclofen sulfamethoxazole [From Bactrim] Adverse Reaction (Verified 05/23/19 07:49) hypotension interacts w/ zanaflex and baclofen tazobactam [From Zosyn] Adverse Reaction (Verified 05/23/19 07:49) hypotension interacts w/ zanaflex and baclofen trimethoprim [From Bactrim] Adverse Reaction (Verified 05/23/19 07:49) hypotension interacts w/ zanaflex and baclofen vancomycin Adverse Reaction (Verified 05/23/19 07:49) developed toxic levels - Physical Exam Vital Signs Temp Pulse Resp BP Pulse Ox 98.0 F 90 18 134/91 H 99 06/03/19 16:35 06/03/19 16:35 06/03/19 16:35 06/03/19 16:35 06/03/19 16:35 Oxygen Delivery Method Room Air Weight: 145 lb 4.554 oz Body Mass Index (BMI) 20.7 Finger Stick Blood Glucose 67 Intake and Output for Last 24 Hours 06/01/19 06/02/19 06/03/19 23:59 23:59 23:59 Intake Total 500 / 500 Balance 500 / 500 Laboratory Tests Past 24 Hrs 08/06/03/19 06/03/19 13:42 13:42 14:50 WBC 9.8 RBC 4.84 Hgb 14.3 Hct 43.7 MCV 90.3 MCH 29.5 MCHC 32.7 RDW Std Deviation 50.3 H RDW Coeff of Niurka 15.8 H Plt Count 221 MPV 9.8 Immature Gran % (Auto) 0.300 Neut % (Auto) 61.2 Lymph % (Auto) 25.9 Emmet % (Auto) 8.3 Eos % (Auto) 3.5 Baso % (Auto) 0.8 Absolute Neuts (auto) 6.0 Absolute Lymphs (auto) 2.53 Nucleated RBC % 0 Sodium 142 Potassium 3.7 Chloride 109 H Carbon Dioxide 26.0 Anion Gap 7 BUN 19 H Creatinine 1.50 H Estim Creat Clear Calc 40.97 Est GFR (MDRD) Af Amer 45 L Est GFR (MDRD) Non-Af 37 L BUN/Creatinine Ratio 12.7 Glucose 87 Calcium 9.9 Total Bilirubin 0.50 AST 28 ALT 26 Alkaline Phosphatase 86 Total Protein 7.9 Albumin 3.4 Globulin 4.5 H Albumin/Globulin Ratio 0.8 L Urine Color Yellow Urine Clarity Sl. Cloudy Urine pH 6.5 Ur Specific [place] 1.010 Urine Protein 100 H Urine Glucose (UA) Normal Urine Ketones 5 H Urine Occult Blood 50 H Urine Nitrite Negative Urine Bilirubin Negative Urine Urobilinogen Normal Ur Leukocyte Esterase 500 H Urine RBC 5-10 SEEN Urine WBC >100 SEEN Ur Squamous Epith Cells 0-5 SEEN Urine Bacteria 2+ Urine Mucus 0 SEEN Urine Yeast 2+ POC Glucose 06/03/19 12:45 POC Glucose 87 Assessment/Plan Hospitalist note: I am seeing this patient in conjunction with Kailyn Red. I independently seen and examined the patient. History and physical, laboratory data and imaging studies reviewed and I concur with the above admission and treatment plan. Patient presented to the emergency room because of change in mental st atus and poor oral intake. The patient had a history of multiple sclerosis and she is nonverbal. Patient's who is the public health technician mentioned that she has been having issues with poor oral intake, confusion and intermittent muscle spasm over the last couple of days. Patient was discharged from the hospital 3 days ago and she was discharged on Zyvox for UTI. Patient is not following commands and she is not responding verbally as she normally does. She has history of multiple sclerosis and she is long-term bedridden and she has been on baclofen only for treatment. She has history of stage III chronic kidney disease and she was admitted recently for acute kidney injury on top of stage III chronic kidney disease which was treated and her creatinine today remained stable at her baseline. She has chronic indwelling suprapubic catheter with recurrent UTIs and she was discharged from the hospital 3 days ago and she was discharged on Zyvox which was completed yesterday. In the emergency department, her vital signs were stable, afebrile. Her routine blood work was remarkable for creatinine of 1.50 which is chronic, otherwise unremarkable. Urinalysis revealed cloudy urine, negative for nitrite, there was 500 leukocyte esterase, there was more than 100 WBCs and 2+ bacteria. Chest x-ray showed no acute findings. She is being admitted for change in mental status/encephalopathy. - Physical Exam General: Lethargic,, spontaneous eye opening, nonverbal. HEENT: Atraumatic, PERRLA, EOMI. Neck: Supple, No JVD, Negative Carotid Bruits, Trachea Midline, Thyroid Normal. Lungs: Decreased breath sounds bilaterally more on the right lower zone, otherwise clear, No rhonchi, No wheeze, No rales. Cardiovascular: Regular rate, Regular Rhythm, Normal S1, Normal S2, PMI Normal. Abdomen: Bowel Sounds Present, Soft, Non Tender, Non-Distended, No Hepato- splenomegaly. Suprapubic catheter in place. Extremities: No clubbing, No cyanosis, No edema Skin: No rashes, No breakdown Neurological: Right-sided paresis, contractures, cranial nerves are intact. Vital Signs are stable. Assessment and plan: #1 change in mental status/encephalopathy: Unclear etiology. Patient has been on Zyvox, completed yesterday. No evidence of serotonin syndrome. Routine blood work was unremarkable. Vital signs are stable. No tachycardia, no hypertension. Urinalysis reviewed, she has pyuria but this is chronic. Urine culture sent. Plan: Admit to PCU for observation, cardiac monitoring, IV fluids, follow urine culture, IV Ativan as needed, PT OT evaluation and treatment. #2 other chronic medical problems: Stable, continue current medication as above. This note was generated with [employer] software. It may contain incorrect words, spelling, and punctuation that were not noted in checking the note before signing. Code Visit OBSV E&M: 82375 Initial observation care L2
--- NOTE | 2019-06-03 16:58 | ED.DCSUM_ITS ---
- ER Visit Summary Date of Service: 06/03/19 Chief Complaint: Mental status change History of Present Illness: The patient is a [address] Carranza. reports that she was discharged from the hospital on May 30. States that the next day she developed mild confusion. Over the past 2 days she has had very decreased p.o. intake. He believes that her confusion is worsened when she gets a dose of her linezolid. He reports the patient has had a temperature to 98.0. However, she is felt warm. She has also been diaphoretic at times. No cough, vomiting, or diarrhea. is concerned that she may have serotonin syndrome. Physical Examination: Vitals: Stable. Afebrile. General: Well-nourished and well-developed. Head: Normocephalic atraumatic. Neck: Supple, no lymphadenopathy. No JVD. Nontender. Cardiovascular: Regular rate and rhythm. No murmurs. Respiratory: No respiratory distress. Clear to auscultation bilaterally. Abdominal: Soft, nontender, nondistended, normal bowel sounds. No guarding, rebound, or peritoneal signs. Suprapubic site is clean and dry. There is no erythema. Back: Nontender. Extremities: Nontender, no edema. Skin: Normal color, no rash. Neurologic: Lethargic, but arouses to voice. Psych: Normal affect. Test Results: CBC is normal. Chem-7 shows a chloride of 109 and BUN of 19. Creatinine is 1.5. This is normal for her. LFTs show globulin 4.5. UA (from her suprapubic Maldonado) shows greater than 100 whites, 5-10 reds, 2+ bacteria, and 2+ yeast. This was sent for culture. Emergency Department Course and Treatment: Patient was given a liter of normal saline. She is more alert and has her eyes open. However, she is still not talking or interacting with the or staff. Treatment Plan: Patient was discussed with Dr. Carranza. She reports that she typically is able to have a normal conversation, albeit with a bit of a slow response. She also typically is working on her computer. This is clearly unusual for her. She was discussed with Dr. Nuñez and will be admitted for further evaluation and treatment. Disposition: Admitted in improved condition. Impression: 1. Mental status change. This note was generated with [employer] dictation software. It may contain incorrect words, spelling, and punctuation that were not noted in review of the chart prior to signing ED Disposition - Plan for ED Patient: Disposition: Acute [facility]
[2019-06-03] MEDS: 0.9% Normal Saline 1,000 ML 100 ML IV (17:02)
[2019-06-04] VITALS (10 sets, daily range): BP systolic 134–156; BP diastolic 79–100; PULSE 88–109; RESP 16–18; TEMP 36.4–36.8; O2SAT 93–96
[2019-06-04] MEDS: 0.9% Normal Saline 1,000 ML 100 ML IV ×2 (02:02→11:47)
--- NOTE | 2019-06-04 02:11 | NURSING ---
RN ENTERED ROOM, PATIENT LOOKS FLUSHED, CHECKED TEMP 97.8, STATES SHE FEELS A LITTLE WARM, WAS ABLE TO COMMUNICATE TO RN. WILL CONTINUE TO MONITOR.
[2019-06-04] MEDS: Bisacodyl 10 MG Suppository RECTAL (03:05)
[2019-06-04] MEDS: Iron Polysaccharide Complex 150 MG CAPSULE PO (10:32)
[2019-06-04] MEDS: Baclofen 10 MG Tablet PO ×2 (10:32→15:10)
[2019-06-04] MEDS: Pantoprazole Sodium 40 MG Tablet PO (10:32)
[2019-06-04] MEDS: 0.9% NaCl VAD Flush IV ×2 (11:01→11:11)
[2019-06-04 11:33] LABS: Anion Gap 4 (5-15); BUN 25 mg/dL (7-18); Calcium,Total 9.7 mg/dL (8.5-10.1); Chloride 114 mmol/L (98-107); Creatinine, Serum 1.79 mg/dL (0.55-1.02); EST Glomerular Filtration Rate 30 mL/min (>60); Est Glom Filt Rate - Afr Amer 37 mL/min (>60); Estimated Creatinine Clearance 33.03 ml/min; Glucose 99 mg/dL (74-106); Potassium 3.7 mmol/L (3.5-5.1); Sodium Level 144 mmol/L (136-145)
--- NOTE | 2019-06-04 13:00 | PN_ITS ---
<Kailyn Red - Last Filed: 06/04/19 13:04> Subjective: Patient seen and examined. More alert today. at bedside, reports patient has significantly improved. Continues to be nonverbal during assessment however has been reports patient has been talking appropriately. - Physical Exam General: Alert, Cooperative, No apparent distress HEENT: Atraumatic, PERRLA, EOMI, Normocephalic Oral: Moist Mucosa Neck: Supple, No JVD, Negative Carotid Bruits Lungs: Clear to auscultation, Diminished Cardiovascular: Regular rate, Regular Rhythm, Normal S1, Normal S2, No murmurs Abdomen: Bowel Sounds Present, Soft, Non Tender, Non-Distended, - - Suprapubic catheter in place Extremities: No clubbing, No cyanosis, No edema, Capillary Refill Less than 3 Seconds Skin: No rashes, No breakdown Musculoskeletal: No Tenderness to Palpation of Joints or Extremities Neurological: Cranial nerves II-XII grossly intact, - - Chronic generalized weakness due to underlying MS, chronic contracture and right hemiplegia. Psych/Mental Status: Normal Affect, Appropriate Vital Signs Temp Pulse Resp BP Pulse Ox 97.6 F L 96 16 134/89 H 93 06/04/19 07:49 06/04/19 11:21 06/04/19 07:49 06/04/19 07:49 06/04/19 07:49 Oxygen Flow Rate (L/min) 1 Oxygen Delivery Method Room Air Weight: 145 lb 4.554 oz Body Mass Index (BMI) 20.7 Finger Stick Blood Glucose 67 Intake and Output for Last 24 Hours 06/02/19 06/03/19 06/04/19 23:59 23:59 23:59 Intake Total 1428.33 / 1428.33 1186.67 / 1186.67 Output Total 275 / 275 350 / 350 Balance 1153.33 / 1153.33 836.67 / 836.67 Laboratory Tests Past 24 Hrs 06/03/19 06/03/19 06/03/19 13:42 13:42 14:50 WBC 9.8 RBC 4.84 Hgb 14.3 Hct 43.7 MCV 90.3 MCH 29.5 MCHC 32.7 RDW Std Deviation 50.3 H RDW Coeff of Niurka 15.8 H Plt Count 221 MPV 9.8 Immature Gran % (Auto) 0.300 Neut % (Auto) 61.2 Lymph % (Auto) 25.9 Sully % (Auto) 8.3 Eos % (Auto) 3.5 Baso % (Auto) 0.8 Absolute Neuts (auto) 6.0 Absolute Lymphs (auto) 2.53 Nucleated RBC % 0 Sodium 142 Potassium 3.7 Chloride 109 H Carbon Dioxide 26.0 Anion Gap 7 BUN 19 H Creatinine 1.50 H Estim Creat Clear Calc 40.97 Est GFR (MDRD) Af Amer 45 L Est GFR (MDRD) Non-Af 37 L BUN/Creatinine Ratio 12.7 Glucose 87 Calcium 9.9 Total Bilirubin 0.50 AST 28 ALT 26 Alkaline Phosphatase 86 Total Protein 7.9 Albumin 3.4 Globulin 4.5 H Albumin/Globulin Ratio 0.8 L Urine Color Yellow Urine Clarity Sl. Cloudy Urine pH 6.5 Ur Specific Vashon 1.010 Urine Protein 100 H Urine Glucose (UA) Normal Urine Ketones 5 H Urine Occult Blood 50 H Urine Nitrite Negative Urine Bilirubin Negative Urine Urobilinogen Normal Ur Leukocyte Esterase 500 H Urine RBC 5-10 SEEN Urine WBC >100 SEEN Ur Squamous Epith Cells 0-5 SEEN Urine Bacteria 2+ Urine Mucus 0 SEEN Urine Yeast 2+ 06/04/19 11:05 WBC RBC Hgb Hct MCV MCH MCHC RDW Std Deviation RDW Coeff of Niurka Plt Count MPV Immature Gran % (Auto) Neut % (Auto) Lymph % (Auto) Sully % (Auto) Eos % (Auto) Baso % (Auto) Absolute Neuts (auto) Absolute Lymphs (auto) Nucleated RBC % Sodium 144 Potassium 3.7 Chloride 114 H Carbon Dioxide 26.0 Anion Gap 4 L BUN 25 H Creatinine 1.79 H Estim Creat Clear Calc 33.03 Est GFR (MDRD) Af Amer 37 L Est GFR (MDRD) Non-Af 30 L BUN/Creatinine Ratio 14.0 Glucose 99 Calcium 9.7 Total Bilirubin AST ALT Alkaline Phosphatase Total Protein Albumin Globulin Albumin/Globulin Ratio Urine Color Urine Clarity Urine pH Ur Specific Vashon Urine Protein Urine Glucose (UA) Urine Ketones Urine Occult Blood Urine Nitrite Urine Bilirubin Urine Urobilinogen Ur Leukocyte Esterase Urine RBC Urine WBC Ur Squamous Epith Cells Urine Bacteria Urine Mucus Urine Yeast Medical Necessity - Tobacco Use Smoking Status: Never smoker Assessment/Plan 1. Poor oral intake, functional decline-IV fluids. Nutrition consult. Speech therapy consult. PT/OT. 2. Mental status change, per -unclear etiology. reports intermittent agitation. PRN Ativan for agitation. Chest x-ray on admission without acute process. Afebrile, no leukocytosis. No evidence of infectious process. Mental status improved today. Continue gentle IV fluids. 3. Multiple sclerosis with chronic right hemiparesis/debility-continue home baclofen regimen. PT/OT. 4. Chronic kidney disease stage IV-baseline creatinine 2.1-2.2. Creatinine currently improved from baseline. 5. Recurrent urosepsis with chronic suprapubic catheter-no evidence of current infection. 6. Recent diagnosis reflux esophagitis-continue PPI. 7. History of TIA 8. Hyperlipidemia-not on statin. 9. Chronic constipation-recent severe gastroparesis. Resolved. 10. Iron deficiency anemia-stable, continue iron supplementation. DVT prophylaxis-heparin subcu This patient was seen by MARTHA Shannon under the supervision of Dr. Hernandez. <Jones Hernandez - Last Filed: 06/04/19 16:43> Subjective: Seen and examined. She was admitted with change in mental status. Patient is more awake and alert. To me patient is on baseline mental status as I have seen her in the past. Patient is nonverbal and answers by nodding head or signs for simple command. Discussed with PCP Dr. Carranza - Physical Exam General: Alert, Oriented x3, Cooperative, - - Patient is oriented to time and place and person. HEENT: Atraumatic, PERRLA, EOMI, Normocephalic Oral: Moist Mucosa Neck: Supple, No JVD, Negative Carotid Bruits Lungs: Normal air movement, No rhonchi, No wheeze, No rales, Diminished - Air entry is more diminished on right lung base secondary to elevation of right hemidiaphragm. Cardiovascular: Regular rate, No murmurs Abdomen: Bowel Sounds Present, Soft, Non Tender, - Extremities: No edema, Capillary Refill Less than 3 Seconds Skin: No rashes, No breakdown Musculoskeletal: No Tenderness to Palpation of Joints or Extremities, Arthritic Changes, Muscle Wasting Neurological: Cranial nerves II-XII grossly intact, Neuro grossly intact Psych/Mental Status: Normal Affect, Appropriate Vital Signs Temp Pulse Resp BP Pulse Ox 98.1 F 92 16 138/87 H 93 06/04/19 14:00 06/04/19 14:00 06/04/19 14:00 06/04/19 14:00 06/04/19 14:00 Oxygen Flow Rate (L/min) 1 Oxygen Delivery Method Room Air Weight: 145 lb 4.554 oz Body Mass Index (BMI) 20.7 Finger Stick Blood Glucose 67 Intake and Output for Last 24 Hours 06/02/19 06/03/19 06/04/19 23:59 23:59 23:59 Intake Total 1428.33 / 1428.33 1536.67 / 1536.67 Output Total 275 / 275 850 / 850 Balance 1153.33 / 1153.33 686.67 / 686.67 Laboratory Tests Past 24 Hrs 06/04/19 11:05 Sodium 144 Potassium 3.7 Chloride 114 H Carbon Dioxide 26.0 Anion Gap 4 L BUN 25 H Creatinine 1.79 H Estim Creat Clear Calc 33.03 Est GFR (MDRD) Af Amer 37 L Est GFR (MDRD) Non-Af 30 L BUN/Creatinine Ratio 14.0 Glucose 99 Calcium 9.7 Assessment/Plan This patient was seen in conjunction with SALES AND MARKETING ANALYST, Kailyn. I have independently interviewed and examined the patient and reviewed pertinent history, examination findings, laboratory and plan of management. I have reviewed the note and agree with the documented findings with the few additional points. In brief, patient is admitted for change in mental status. Patient has a history of MS with functional debility/chronic right-sided hemiparesis with chronic bowel and bladder incontinence with suprapubic catheter. Discussed with PCP Dr. Carranza. Last time she was discharged on Zyvox for sepsis secondary to staph epidermidis, possible gram-negative bacterial UTI related to chronic suprapubic catheter. Patient was seen by ID at that time. Patient was discharged to home as per request of patient's . Dr. Carranza feels she needs fpc as she needs nursing care for her debility. Discussed with the patient's . She had picking sheet, disoriented, was not eating/poor oral intake some involuntary movement and he feels secondary to Zyvox. As per , she also had low-grade fever, tachycardia and high blood pressure. Patient is not on Zyvox. Recurrent UTI with multiple organisms, including MRSE, stenotrophomonas maltophilia, and MRSA. Current urine culture is pending. Is hard to get clinical history of UTIs patient is nonverbal. I have discussed my assessment with SALES AND MARKETING ANALYSTKailyn and orders have been reviewed. Code Visit Inpatient E&M: 55712 Subs Hosp L2
[2019-06-04] MEDS: Lactated Ringers 1,000 ML 100 ML IV (17:38)
[2019-06-04] MEDS: MELATONIN 10 MG TABLET 5 MG PO (22:45)
[2019-06-04] MEDS: Baclofen 10 MG Tablet 20 MG PO (22:47)
[2019-06-04] MEDS: Lactulose 20 GM/30 ML UDC 60 GM PO (22:47)
[2019-06-05] VITALS (12 sets, daily range): BP systolic 138–152; BP diastolic 76–92; PULSE 95–109; RESP 16–20; TEMP 36.6–37.7; O2SAT 92–100
[2019-06-05] MEDS: Lactated Ringers 1,000 ML 100 ML IV (02:58)
[2019-06-05] MEDS: 0.9% NaCl VAD Flush IV (04:34)
[2019-06-05 05:25] LABS: Anion Gap 8 (5-15); BUN 30 mg/dL (7-18); BUN/Creat Ratio 15.5 RATIO (10-20); Calcium,Total 9.1 mg/dL (8.5-10.1); Chloride 119 mmol/L (98-107); Creatinine, Serum 1.94 mg/dL (0.55-1.02); EST Glomerular Filtration Rate 28 mL/min (>60); Est Glom Filt Rate - Afr Amer 33 mL/min (>60); Estimated Creatinine Clearance 30.48 ml/min; Glucose 96 mg/dL (74-106); Potassium 3.8 mmol/L (3.5-5.1); Sodium Level 154 mmol/L (136-145)
[2019-06-05 07:55] LABS: Absolute Lymphocyte Count 2.22 X10^3/uL (0.83-4.51); Absolute Neutrophil Count 8.3 X10^3/uL (2.0-7.7); Basophil# 0.08 X10^3/uL; Basophil% 0.7 % (0-1); Eosinophil# 0.43 X10^3/uL; Eosinophils% 3.6 % (0-5); Hematocrit 35.7 % (37-47); Hemoglobin 11.6 g/dL (12.0-15.0); Lymphocyte # 2.22 X10^3/ul (4.0); Lymphocyte % 18.6 % (19-41); Mean Corp Hgb Conc 32.5 g/dL (32-36); Mean Corpuscular Hgb 29.7 pg (27.0-32.0); Mean Corpuscular Volume 91.5 fL (81-99); Mean Platelet Vol. 9.6 fl (6.2-12.0); Monocyte# 0.85 X10^3/uL; Monocyte% 7.1 % (0-10); NRBC Flagged by Analyzer 0 % (0-5); Neutrophil # 8.33 X10^3/uL (2.7-7.7); Neutrophil % 69.6 % (47-70); Platelet Count 159 K/mm3 (150-450); RBC Distribution Width CV 16.4 % (11.6-14.6)
[2019-06-05] MEDS: Dext 5%-0.45% NS 1,000 ML 100 ML IV (08:11)
[2019-06-05] MEDS: Baclofen 10 MG Tablet PO ×2 (08:14→14:01)
[2019-06-05] MEDS: Iron Polysaccharide Complex 150 MG CAPSULE PO (08:58)
[2019-06-05] MEDS: Pantoprazole Sodium 40 MG Tablet PO (08:58)
--- NOTE | 2019-06-05 12:52 | PCM.PROGNOTE ---
Subjective: Patient seen and examined. More drowsy this morning. at bedside states that patient did not sleep well overnight. still requesting [place] [employer] at discharge. - Physical Exam General: - - Drowsy, no acute distress. HEENT: Atraumatic, PERRLA, EOMI, Normocephalic Oral: Moist Mucosa Neck: Supple, No JVD, Negative Carotid Bruits Lungs: Clear to auscultation, Diminished Cardiovascular: Regular rate, Regular Rhythm, Normal S1, Normal S2, No murmurs Abdomen: Bowel Sounds Present, Soft, Non Tender, Non-Distended, - - Suprapubic catheter in place Extremities: No clubbing, No cyanosis, No edema, Capillary Refill Less than 3 Seconds Skin: No rashes, No breakdown Musculoskeletal: No Tenderness to Palpation of Joints or Extremities Neurological: Cranial nerves II-XII grossly intact, - - Chronic generalized weakness due to underlying MS, chronic contracture and right hemiplegia. Psych/Mental Status: Normal Affect, Appropriate Vital Signs Temp Pulse Resp BP Pulse Ox 98.1 F 104 H 20 H 152/92 H 92 06/05/19 05:14 06/05/19 07:05 06/05/19 05:14 06/05/19 05:14 06/05/19 08:58 Oxygen Flow Rate (L/min) 2 Oxygen Delivery Method Nasal Cannula Weight: 145 lb 4.554 oz Body Mass Index (BMI) 20.7 Finger Stick Blood Glucose 67 Intake and Output for Last 24 Hours 06/03/19 06/04/19 06/05/19 23:59 23:59 23:59 Intake Total 1428.33 / 1428.33 2521.67 / 2521.67 980 / 980 Output Total 275 / 275 1300 / 1300 450 / 450 Balance 1153.33 / 1153.33 1221.67 / 1221.67 530 / 530 Microbiology Past 72 Hours 06/03/19 14:50 Urine Culture - Preliminary Urine Catheter - Catheter Gram negative michell Laboratory Tests Past 24 Hrs 06/05/19 06/05/19 04:30 07:45 WBC 12.0 H RBC 3.90 L Hgb 11.6 L Hct 35.7 L MCV 91.5 MCH 29.7 MCHC 32.5 RDW Std Deviation 52.0 H RDW Coeff of Niurka 16.4 H Plt Count 159 MPV 9.6 Immature Gran % (Auto) 0.400 Neut % (Auto) 69.6 Lymph % (Auto) 18.6 L Scre[place] % (Auto) 7.1 Eos % (Auto) 3.6 Baso % (Auto) 0.7 Absolute Neuts (auto) 8.3 H Absolute Lymphs (auto) 2.22 Nucleated RBC % 0 Sodium 154 H Potassium 3.8 Chloride 119 H Carbon Dioxide 27.0 Anion Gap 8 BUN 30 H Creatinine 1.94 H Estim Creat Clear Calc 30.48 Est GFR (MDRD) Af Amer 33 L Est GFR (MDRD) Non-Af 28 L BUN/Creatinine Ratio 15.5 Glucose 96 Calcium 9.1 Medical Necessity - Tobacco Use Smoking Status: Never smoker Assessment/Plan 1. Poor oral intake, functional decline-IV fluids. Nutrition consult. Speech therapy consult. PT/OT. SNF at [place]. 2. Mental status change, per -Resolved. persistently insists that the patient had reaction to Zyvox and also has serotonin syndrome. Chest x-ray on admission without acute process. Afebrile, no leukocytosis. No evidence of infectious process. Mental status improved. 3. Multiple sclerosis with chronic right hemiparesis/debility-continue home baclofen regimen. PT/OT. 4. Chronic kidney disease stage IV-baseline creatinine 2.1-2.2. Creatinine currently improved from baseline. 5. Recurrent urosepsis with chronic suprapubic catheter-no evidence of current infection. Afebrile. Follow urine culture, preliminary showing gram-negative michell however patient has chronic colonization. 6. Recent diagnosis reflux esophagitis-continue PPI. 7. History of TIA 8. Hyperlipidemia-not on statin. 9. Chronic constipation-recent severe gastroparesis. Resolved. 10. Iron deficiency anemia-stable, continue iron supplementation. DVT prophylaxis-heparin subcu Discharge planning: would like patient to go to [facility] at discharge. This patient was seen by MARTHA Shannon under the supervision of Dr. Lerner.
[2019-06-05] MEDS: Dext 5%-0.45% NS 1,000 ML 125 ML IV (17:54)
[2019-06-05] MEDS: MELATONIN 10 MG TABLET 5 MG PO (22:25)
[2019-06-05] MEDS: Baclofen 10 MG Tablet 20 MG PO (22:25)
[2019-06-06] VITALS (11 sets, daily range): BP systolic 125–147; BP diastolic 62–82; PULSE 82–99; RESP 16–22; TEMP 36.6–36.9; O2SAT 93–100
[2019-06-06] MEDS: Dext 5%-0.45% NS 1,000 ML 125 ML IV ×3 (01:29→17:18)
[2019-06-06 05:00] LABS: Hematocrit 33.2 % (37-47); Hemoglobin 10.5 g/dL (12.0-15.0); Mean Corp Hgb Conc 31.6 g/dL (32-36); Mean Corpuscular Hgb 29.7 pg (27.0-32.0); Mean Corpuscular Volume 93.8 fL (81-99); Mean Platelet Vol. 9.8 fl (6.2-12.0); Platelet Count 143 K/mm3 (150-450); RBC Distribution Width CV 16.4 % (11.6-14.6); RBC Distribution Width SD 54.4 fl (35.1-43.9); Red Blood Count 3.54 M/mm3 (4.2-5.4); White Blood Count 13.4 K/mm3 (4.4-11.0)
[2019-06-06 05:04] LABS: Anion Gap 5 (5-15); BUN 29 mg/dL (7-18); BUN/Creat Ratio 21.2 RATIO (10-20); Calcium,Total 8.6 mg/dL (8.5-10.1); Chloride 114 mmol/L (98-107); Creatinine, Serum 1.37 mg/dL (0.55-1.02); EST Glomerular Filtration Rate 41 mL/min (>60); Est Glom Filt Rate - Afr Amer 50 mL/min (>60); Estimated Creatinine Clearance 43.16 ml/min; Glucose 107 mg/dL (74-106); Potassium 3.8 mmol/L (3.5-5.1); Sodium Level 149 mmol/L (136-145)
[2019-06-06] MEDS: Iron Polysaccharide Complex 150 MG CAPSULE PO (09:57)
[2019-06-06] MEDS: Pantoprazole Sodium 40 MG Tablet PO (09:57)
[2019-06-06] MEDS: Baclofen 10 MG Tablet PO ×2 (09:57→14:25)
[2019-06-06] MEDS: 0.9% NaCl VAD Flush IV (09:57)
--- NOTE | 2019-06-06 11:01 | CASEMGMT ---
SHARLENE LATHAM NOTE: Call placed to [facility] and spoke with Kathy. She stated they were aware that pt was admitted 06/03/19. She was also notified that discharge plan is for pt to discharge to [facility]. Brit DUONG RN CM
--- NOTE | 2019-06-06 11:36 | CASEMGMT ---
Per physician patient's is thinking he would prefer patient go to [place] at discharge. DICK checked with patient and her and confirmed this would be the plan. Patient's said if [facility] cannot do PRN IV fluids he will take her home. DICK told him SW will check on this. DICK faxed referral to [facility]. DICK also sent information to [facility] requesting SNF level of care. DICK also called [facility] [place] with referral and left a message for O CM Dept. DICK will check with Linh from [facility] when she calls back about the IV fluids. Tamar LOPEZ RECRUIT INSTRUCTOR
--- NOTE | 2019-06-06 13:10 | PCM.PROGNOTE ---
Subjective: Patient seen and examined. Alert today, talking. No acute events overnight. Has been at bedside, happy with patient's progress. - Physical Exam General: Alert, Cooperative, No apparent distress HEENT: Atraumatic, PERRLA, EOMI, Normocephalic Oral: Moist Mucosa Neck: Supple, No JVD, Negative Carotid Bruits Lungs: Clear to auscultation, Normal air movement Cardiovascular: Regular rate, Regular Rhythm, Normal S1, Normal S2, No murmurs Abdomen: Bowel Sounds Present, Soft, Non Tender, Non-Distended, - - Suprapubic catheter in place Extremities: No clubbing, No cyanosis, No edema, Capillary Refill Less than 3 Seconds Skin: No rashes, No breakdown, - - Chronic generalized weakness due to underlying MS, chronic contracture and right hemiplegia. Musculoskeletal: No Tenderness to Palpation of Joints or Extremities Neurological: Cranial nerves II-XII grossly intact Psych/Mental Status: Normal Affect, Appropriate Vital Signs Temp Pulse Resp BP Pulse Ox 98 F 82 16 129/68 H 96 06/06/19 09:45 06/06/19 09:45 06/06/19 09:45 06/06/19 09:45 06/06/19 09:45 Oxygen Flow Rate (L/min) 1 Oxygen Delivery Method Room Air Weight: 145 lb 4.554 oz Body Mass Index (BMI) 20.7 Finger Stick Blood Glucose 67 Intake and Output for Last 24 Hours 06/04/19 06/05/19 06/06/19 23:59 23:59 23:59 Intake Total 2521.67 / 2521.67 3542.67 / 3542.67 2187.92 / 2187.92 Output Total 1300 / 1300 2100 / 2100 550 / 550 Balance 1221.67 / 1221.67 1442.67 / 1442.67 1637.92 / 1637.92 Microbiology Past 72 Hours 06/03/19 14:50 Urine Culture - Preliminary Urine Catheter - Catheter Stenotrophomonas maltophilia Laboratory Tests Past 24 Hrs 06/06/19 06/06/19 04:40 04:40 WBC 13.4 H RBC 3.54 L Hgb 10.5 L Hct 33.2 L MCV 93.8 MCH 29.7 MCHC 31.6 L RDW Std Deviation 54.4 H RDW Coeff of Niurka 16.4 H Plt Count 143 L MPV 9.8 Sodium 149 H Potassium 3.8 Chloride 114 H Carbon Dioxide 30.0 Anion Gap 5 BUN 29 H Creatinine 1.37 H Estim Creat Clear Calc 43.16 Est GFR (MDRD) Af Amer 50 L Est GFR (MDRD) Non-Af 41 L BUN/Creatinine Ratio 21.2 H Glucose 107 H Calcium 8.6 Medical Necessity - Tobacco Use Smoking Status: Never smoker Assessment/Plan 1. Poor oral intake, functional decline-IV fluids. Nutrition consult. Speech therapy consult. PT/OT. SNF at [place]. 2. Mental status change, per -Resolved. persistently insists that the patient had reaction to Zyvox and also has serotonin syndrome. Chest x-ray on admission without acute process. Mental status improved. 3. Multiple sclerosis with chronic right hemiparesis/debility-continue home baclofen regimen. PT/OT. 4. Chronic kidney disease stage IV-baseline creatinine 2.1-2.2. Creatinine currently improved from baseline. 5. Recurrent urosepsis with chronic suprapubic catheter-no evidence of current infection. Urine culture shows stenotrophomonas, seen as recent admission. Patient now has mild leukocytosis. Patient is known to have colonization. If leukocytosis increases or develops significant fever, will treat with antibiotics. 6. Recent diagnosis reflux esophagitis-continue PPI. 7. History of TIA 8. Hyperlipidemia-not on statin. 9. Chronic constipation-recent severe gastroparesis. Resolved. 10. Iron deficiency anemia-stable, continue iron supplementation. DVT prophylaxis-heparin subcu Discharge planning: [facility] pending pre-[facility]. This patient was seen by MARTHA Shannon under the supervision of Dr. Lerner.
--- NOTE | 2019-06-06 13:51 | CASEMGMT ---
DICK received a call from Halley with [facility]. She does not agree with [facility] level of care. She feels patient is at her baseline and is not going to improve physically. She said patient's has given her IV fluids at home before. DICK told her patient's has expressed that patient can normally feed herself, hold a cup and drink on her own. She cannot do these things right now. She asked if anyone has seen the patient do this. DICK told her this SW has not, but cannot speak for anyone else. She said that [facility] has an appt with patient and her 06-15. Patient's counseling case manager through [facility] may be able to get that appt moved up. She said patient's counseling case manager was going to reach out to patient's . DICK will notify patient and her . DICK spoke with patient and her letting them know insurance does not agree with [facility] level of care for patient. He expressed his frustration with the insurance. He said they cannot afford to private pay. He said he will call Dr Carranza and talk with her about the home IV fluids. He said he has done this before. They are active with [facility]. DICK told him DICK will notify physician of the plan. Plan: Home with resumption of [facility] as MMO MCR is not in agreement with [facility] level of care. Tamar GONSALEZ
--- NOTE | 2019-06-06 14:11 | CASEMGMT ---
SHARLENE CM Readmission Note Previous Admission: 05/23/19-05/30/19 Diagnosis: sepsis, severe gastroparesis DC Disposition: Home with ERWIN Espinosa Kassidy Current Admission Presentation: change in mental status/encephalopathy. Pt had poor intake at home. Home Health was active in home. -Did not see PCP since last discharge. Has appt with Dr. Carranza on Jun 20, 2019 -DC Plan was for SNF, was denied by pt's insurance. Plan now [facility]. Michi DUONG RN ACM
--- NOTE | 2019-06-06 14:35 | CASEMGMT ---
DICK spoke with patient's . He said he spoke with the [facility]. There is nothing she can do. He again said private paying at a halfway is not possible. DICK asked if Medicaid is an option and he said it is not as their income is too high. DICK asked if he has ever hired private duty help. He said he has not, but that can become pricey as well. DICK offered to give him a list of private duty agencies and he declined. He said he would stay with [facility]. He said he will make things work. Tamar LOPEZ MSW
--- NOTE | 2019-06-06 15:02 | CHAPLAIN ---
Type of Pastoral Visit _x__ Initial Visit ___ Follow-up Visit ___ On-call Visit ___ General Patient Visit ___ Spiritual Assessment ___ Family Conference ___ Bereavement ___ Rapid Response ___ Code Blue ___ Other (describe below) Pastoral Care Referral From _x__ Patient _x__ Family ___ Nurse ___ Physician ___ Plant Quality Manager ___ Freight Air Brake Fitter ___ Other (describe below) Sacrament/Intervention ___ Active listening ___ Anointing ___ Religion ___ Bereavement ___ Communion ___ Justine exploration ___ ___ Life review _x__ Prayer ___ Reconciliation ___ Sacrament of Sick _x__ Supportive presence ___ Wedding ___ Other (describe below) Pastoral Comments
--- NOTE | 2019-06-06 15:17 | CASEMGMT ---
SHARLENE LATHAM NOTE: Call placed to [facility]. Message left to inform them that discharge plans have changed. Pt will not be going to [facility] @ D/C. Pt will be returning home w/resumption of [facility] services and anticipate discharge tomorrow 06/07/19. Brit DUONG RN CM
[2019-06-06] MEDS: Baclofen 10 MG Tablet 20 MG PO (20:46)
[2019-06-06] MEDS: MELATONIN 10 MG TABLET 5 MG PO (20:47)
[2019-06-06] MEDS: Lactulose 20 GM/30 ML UDC 60 GM PO (20:47)
--- NOTE | 2019-06-06 21:36 | NURSING ---
pt coughed after drinking thickened ensure. asked pt if she felt better after coughing and she stated she felt like she aspirated. LS remain wheezy in LLL & LML. VS WNL. Dr Sweet notified. Breathing TXs ordered. Pt is now NPO until speech re-eval.
[2019-06-06] MEDS: Albuterol 2.5 MG/3 ML VIAL.NEB. INHALATION (21:48)
[2019-06-07] VITALS (7 sets, daily range): BP systolic 136–144; BP diastolic 77–88; PULSE 83–97; RESP 16–21; TEMP 36.2–36.7; O2SAT 92–97
[2019-06-07] MEDS: Dext 5%-0.45% NS 1,000 ML 125 ML IV ×2 (01:20→09:18)
[2019-06-07] MEDS: 0.9% NaCl VAD Flush IV ×2 (05:52→05:53)
[2019-06-07 06:16] LABS: Anion Gap 6 (5-15); BUN 26 mg/dL (7-18); BUN/Creat Ratio 19.1 RATIO (10-20); Calcium,Total 8.5 mg/dL (8.5-10.1); Chloride 109 mmol/L (98-107); Creatinine, Serum 1.36 mg/dL (0.55-1.02); EST Glomerular Filtration Rate 42 mL/min (>60); Est Glom Filt Rate - Afr Amer 50 mL/min (>60); Estimated Creatinine Clearance 43.48 ml/min; Glucose 91 mg/dL (74-106); Potassium 3.6 mmol/L (3.5-5.1); Sodium Level 144 mmol/L (136-145)
[2019-06-07 06:28] LABS: Hematocrit 33.3 % (37-47); Hemoglobin 10.4 g/dL (12.0-15.0); Mean Corp Hgb Conc 31.2 g/dL (32-36); Mean Corpuscular Hgb 28.8 pg (27.0-32.0); Mean Corpuscular Volume 92.2 fL (81-99); Mean Platelet Vol. 10.5 fl (6.2-12.0); Platelet Count 140 K/mm3 (150-450); RBC Distribution Width CV 16.1 % (11.6-14.6); RBC Distribution Width SD 52.7 fl (35.1-43.9); Red Blood Count 3.61 M/mm3 (4.2-5.4); White Blood Count 8.1 K/mm3 (4.4-11.0)
[2019-06-07] MEDS: Iron Polysaccharide Complex 150 MG CAPSULE PO (11:02)
[2019-06-07] MEDS: Baclofen 10 MG Tablet PO (11:02)
[2019-06-07] MEDS: Pantoprazole Sodium 40 MG Tablet PO (11:02)
--- NOTE | 2019-06-07 11:18 | CASEMGMT ---
As per admitting script editor, pt does not have LW but has POA. Pt has General POA scanned into echart, with Belén Sharp listed as POA. In the document, it does list Liangjaye as a personal bank representative as defined by HIPAA. LISBETH Dhillon
--- NOTE | 2019-06-07 11:37 | CASEMGMT ---
Per Dr. Lerner, pt to be sent home on iv fluids at discharge. Pt has a port that is already accessed and has been sent home on iv fluid before set up through [facility]. states that [facility] 'is wonderful and do a great job.' Referral faxed to [facility] at this time for D5 1/2NS continuous at 125ml/hr for 5 days at this time for JAYY and dehydration. Pt/ are aware of all at this time and voice understanding at this time. This RN CM will keep pt/ up to date with [facility] referral and states pt will need w/c transport home, E.Daphney SW aware. Pt/ voice no further questions/concerns/needs at this time. SStaten RN CM
--- NOTE | 2019-06-07 11:53 | CASEMGMT ---
SW spoke with patient's per his request. He said if patient can transfer to wheelchair he will need van transport home. SW called [facility] and [facility] and neither of them had availability for today. SW called [employer] and they can transport to [place]. He said usually they are busy up until 330 and then after that they have more availability. He said the cost would be about $42. SW will wait and see if patient is being discharged today. Tamar LOPEZ MSW
--- NOTE | 2019-06-07 13:37 | CASEMGMT ---
Addendum entered by Kelsie Amy 06/07/19 15:47: Per , he is an RN and has administered the fluids at home in the past and states no need for [facility] to come out tonight. Dr. Lerner is aware and agreeable at this time. Pt to be discharged this afternoon. Call to [facility] and Dotty aware that to do infusion tonight and per Dotty, fluids and supplies will be delivered by 2000 tonight. Call to [facility] to notify that pt to be discharged this afternoon and that RN does not need to go out till tomorrow per , voice understanding. Pt/ updated on all at this time, voice understanding. Pt/ voice no further questions/concerns/needs at this time. Pt awaiting transport at 1700. Zachariah RN CM Original Note: Per , pt is active with [facility] for RN but not PT/OT. Call to [facility] and per intake at this time, pt was discharged on 06/03/19 when she entered hospital. New order placed in [facility] at this time and this RN CM will fax updated clinicals to [facility] at this time. This RN CM called [facility] and the rep assigned to case is Dotty. Per Dotty Sigala is on the phone right now but states that pt only has about $100 left on deductible and then fluid will be paid at 100%. Zakiya states they can set up delivery for tonight if [facility] can go out tonight. This RN CM placed call back to [facility] to verify that they would be able to go out tonight and per ian Cali, pt should not have been discharged on 06/03/19 and will only need resumption order for RN, PT/OT at this time. Resumption order as well as fluid order and h&P/progress notes faxed to [facility] at this time. Karely at [facility] states she will call this RN CM back as soon as she knows if they will be able to go out tonight. Dr. Lerner updated on all at this time, voices understanding. Zachariah RN CM
--- NOTE | 2019-06-07 14:57 | CASEMGMT ---
Addendum entered by Tamar Shelley 06/07/19 15:36: DICK notified RN, patient, and her that [facility] will transport patient home at 5p. DICK told patient's that [facility] van is not paid for by insurance and SW was told it would be around $42. Tamar GONSALEZ Original Note: DICK called [facility] to arrange for patient to get picked up and taken home. DICK arranged transport for 5p. DICK notified him that patient has her own wheelchair and we will have her at the main entrance. Tamar LOPEZ MSW
--- NOTE | 2019-06-07 15:39 | DCINST_ITS ---
You will use the following diet at home:: No restrictions Your food should be the consistency of: Mechanical soft (ground) Your liquids should be the consistency of: Regular/Thin Discharge Activity: Return to Normal Activity Weight Bearing Status: Full weight bearing Allergies/Adverse Reactions: Allergies ciprofloxacin [From Cipro] Adverse Reaction (Verified 05/23/19 07:49) hypotension interacts w/ zanaflex and baclofen doxycycline Adverse Reaction (Verified 05/23/19 07:49) hypotension interacts w/ zanaflex and baclofen levofloxacin [From Levaquin] Adverse Reaction (Verified 05/23/19 07:49) hypotension interacts w/ zanaflex and baclofen morphine Adverse Reaction (Verified 05/23/19 07:49) hallucinations piperacillin [From Zosyn] Adverse Reaction (Verified 05/23/19 07:49) hypotension interacts w/ zanaflex and baclofen sulfamethoxazole [From Bactrim] Adverse Reaction (Verified 05/23/19 07:49) hypotension interacts w/ zanaflex and baclofen tazobactam [From Zosyn] Adverse Reaction (Verified 05/23/19 07:49) hypotension interacts w/ zanaflex and baclofen trimethoprim [From Bactrim] Adverse Reaction (Verified 05/23/19 07:49) hypotension interacts w/ zanaflex and baclofen vancomycin Adverse Reaction (Verified 05/23/19 07:49) developed toxic levels Medications to take at Discharge Bisacodyl [Dulcolax] 10 mg RECTAL DAILY 07/01/18 Acetaminophen [Tylenol] 1,000 mg PO Q6H PRN PRN 02/15/19 Lactulose [Chronulac] 60 gm PO QODAY 03/25/19 Baclofen 20 mg PO QHS 05/23/19 Baclofen [Lioresal] 1 tab PO BID 05/23/19 Iron Polysaccharide Complex [Ferrex 150] 150 mg PO DAILY 05/23/19 Magnesium Oxide [Mag-Ox 400] 300 mg PO QHS 05/23/19 Melatonin 5 mg PO QHS 05/23/19 Pantoprazole Sodium [Protonix] 40 mg PO DAILY #30 tab 05/30/19 Primary Care Physician: Alexandria Carranza MD [Primary Care Provider] - Please follow up with your Primary Care Physician in: in 2 weeks Test Results: Test results from this visit will be discussed in further detail at your follow- up appointment, if applicable.
--- NOTE | 2019-06-08 13:43 | CASEMGMT ---
D/C instructions faxed to [facility] at this time. D/C summary is not completed yet so cannot be sent yet. Zachariah SU CM
--- NOTE | 2019-06-08 15:28 | CASEMGMT ---
Case Management DC F/u Call: Discharge Date: 06/07/19 Discharge Diagnosis: Change in Mental State DC Disposition: Home with [facility] RN, PT/OT, IV Fluids. LACE/DON: 09/06 Called listed number in Demographics, S/w patient (POA) Nakul Sharp and this technical report writer introduced self and role. states that patient is doing better and that he was able to get her up into a chair earlier today and she is currently sitting up. States that [facility] nurse visited today and everything is checking out good. States has PT/OT next week and has already scheduled an appointment with patient PCP. 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 Denies any questions/concerns or issues with aftercare instructions, medications or follow up appointments. Jasmeet Butt RNCM
--- NOTE | 2019-06-09 07:53 | DS.PCM_ITS ---
Discharge Date and Diagnosis Date of Admission: 06/03/19 Date of Discharge: 06/07/19 - Primary Discharge Diagnosis 1. Poor oral intake-dehydration, functional decline-secondary to chronic illness and multiple medical problems (MS-etc.) 2. Mental status change, per probably secondary to #1 3. Multiple sclerosis with chronic right hemiparesis/debility 4. Chronic kidney disease stage IV 5. Recent diagnosis reflux esophagitis-present on admission 6. Hyperlipidemia 7. Iron deficiency anemia-stable, - Secondary Discharge Diagnosis Chronic Problems Neurogenic bladder (Chronic) MRSA colonization (Chronic) Bilateral hydronephrosis (Chronic) Iron deficiency anemia (Chronic) Constipation (Chronic) Declining functional status (Chronic) Complicated urinary tract infection (Chronic) Chronic suprapubic catheter. Vitamin D deficiency (Chronic) Muscle spasm (Chronic) OAB (overactive bladder) (Chronic) Allergic rhinitis (Chronic) Insomnia (Chronic) Hyperlipidemia (Chronic) CKD (chronic kidney disease) stage 4, GFR 15-29 ml/min (Chronic) Transient ischemic attack (Chronic) Multiple sclerosis (Chronic) Right hemiparesis (Chronic) Migraine headache (Chronic) Hospital Course and Treatment Operations: None Procedures: None Summary of Care Provided: The patient is a 64 year old F was seen in the emergency room at [facility] with a chief complaint of lethargy, she was brought in by her , she has extensive list of multiple medical problems including chronic debility and multiple sclerosis. Work-up in the emergency room showed the patient to be lethargic, urinalysis showed white cells in the patient's urine and bacteria-however, patient has a chronic suprapubic catheter and this was felt to be secondary to colonization. Patient's renal functions were similar to the renal function she had a a recent discharge from the same hospital. Patient was admitted to PCU with functional decline and suspected dehydration, she was given IV fluids and her urine culture grew out stenotrophomonas which was felt to be colonization. Patient had no signs or symptoms of a urinary tract infection during her hospitalization. On 06/07/2019, patient was seen and examined, she appeared to be improved over her hospital stay and was more alert. requested IV fluids be administered at home and this was set up for t he patient. Patient was also seen by PT and OT during her hospitalization. On 06/07/2019, patient was seen and examined felt to be in stable condition for discharge: On examination she appeared in good health and spirits, there was obvious signs of physical impairment due to her MS. Vital signs as documented. Skin warm and dry and without overt rashes. Neck without JVD. Lungs clear. Heart exam notable for regular rhythm, normal sounds and absence of murmurs, rubs or gallops. Abdomen unremarkable and without evidence of organomegaly, masses, or abdominal aortic enlargement. Extremities nonedematous. Neuro: Cranial nerves II through XII are grossly intact, sensation to light touch and pinprick is intact. Psych: Patient is alert and oriented x3, she does not appear anxious or depressed - Physical Exam Vital Signs Temp Pulse Resp BP Pulse Ox 97.2 F L 93 18 136/88 H 97 06/07/19 15:20 06/07/19 15:20 06/07/19 15:20 06/07/19 15:20 06/07/19 15:20 Oxygen Flow Rate (L/min) 1 Oxygen Delivery Method Room Air Weight: 65.9 kg Body Mass Index (BMI) 20.7 Finger Stick Blood Glucose 67 Intake and Output for Last 24 Hours 06/07/19 06/08/19 06/09/19 23:59 23:59 23:59 Intake Total 3034.58 / 3034.58 Output Total 2700 / 2700 Balance 334.58 / 334.58 Microbiology Past 72 Hours 06/03/19 14:50 Urine Culture - Preliminary Urine Catheter - Catheter Stenotrophomonas maltophilia Discharge Activity: Return to Normal Activity Weight Bearing Status: Full weight bearing Home Medications: Medications to take at Discharge Bisacodyl [Dulcolax] 10 mg RECTAL DAILY 07/01/18 Acetaminophen [Tylenol] 1,000 mg PO Q6H PRN PRN 02/15/19 Lactulose [Chronulac] 60 gm PO QODAY 03/25/19 Baclofen 20 mg PO QHS 05/23/19 Baclofen [Lioresal] 1 tab PO BID 05/23/19 Iron Polysaccharide Complex [Ferrex 150] 150 mg PO DAILY 05/23/19 Magnesium Oxide [Mag-Ox 400] 300 mg PO QHS 05/23/19 Melatonin 5 mg PO QHS 05/23/19 Pantoprazole Sodium [Protonix] 40 mg PO DAILY #30 tab 05/30/19 Primary Care Physician: Alexandria Carranza MD [Primary Care Provider] - Please follow up with your Primary Care Physician in: in 2 weeks Please Follow Up With: Alexandria Carranza MD Disposition: Home with Home Health Minutes spent on discharge:: 32 Patient Condition:: Stable Medical Necessity - Tobacco Use Smoking Status: Never smoker Meaningful Use Info Meaningful Use Diagnoses (Choose all that apply): None applicable Code Visit Inpatient E&M: 44837 Disch Hosp
== END 2019-06-07 16:57 | disposition home health service (06) | DRG 640 ==
LOC: ED 15:31 → PCU 06-04 08:00
PROVIDERS: Internal Medicine; Nurse Practitioner Family; Admitting Provider Hospitalist; Emergency Provider Emergency Medicine; Family Provider Internal Medicine; PCP Internal Medicine; Visit Provider Internal Medicine
DX: E86.0 Dehydration (principal); E43 Unspecified severe protein-calorie malnutrition; N18.4 Chronic kidney disease, stage 4 (severe); R53.81 Other malaise; D50.9 Iron deficiency anemia, unspecified; K31.84 Gastroparesis; K59.09 Other constipation; G35 Multiple sclerosis; Z93.59 Other cystostomy status; K21.0 Gastro-esophageal reflux disease with esophagitis; R41.82 Altered mental status, unspecified; E78.5 Hyperlipidemia, unspecified; Z68.20 Body mass index [BMI] 20.0-20.9, adult; N31.9 Neuromuscular dysfunction of bladder, unspecified; Z86.73 Personal history of transient ischemic attack (TIA), and cerebral infarction without residual deficits
CPT/HCPCS: 71045; 80048; 80053; 81001; 81002; 82962; 85025; 85027; 87077; 87086; 87088; 87186; 92526; 92610; 94640; 96361; 96374; 97110; 97162; 97165; 97530; 97802; 99285; J7030; J7040; J7120; A4216; J7799

== ENCOUNTER → 2019-06-12 12:02 | Outpatient (CLI) | payer MEDICARE, SELFPAY ==
[2019-06-03 16:39] VITALS: BMI 20.7
[2019-06-12 12:14] LABS: Absolute Lymphocyte Count 2.14 X10^3/uL (0.83-4.51); Absolute Neutrophil Count 4.8 X10^3/uL (2.0-7.7); Basophil# 0.06 X10^3/uL; Basophil% 0.8 % (0-1); Eosinophil# 0.34 X10^3/uL; Eosinophils% 4.3 % (0-5); Hematocrit 38.2 % (37-47); Hemoglobin 12.1 g/dL (12.0-15.0); Lymphocyte # 2.14 X10^3/ul (4.0); Lymphocyte % 26.8 % (19-41); Mean Corp Hgb Conc 31.7 g/dL (32-36); Mean Corpuscular Hgb 29.7 pg (27.0-32.0); Mean Corpuscular Volume 93.9 fL (81-99); Mean Platelet Vol. 11.1 fl (6.2-12.0); Monocyte# 0.65 X10^3/uL; Monocyte% 8.1 % (0-10); NRBC Flagged by Analyzer 0 % (0-5); Neutrophil # 4.78 X10^3/uL (2.7-7.7); Neutrophil % 59.7 % (47-70); Platelet Count 205 K/mm3 (150-450); RBC Distribution Width CV 17.2 % (11.6-14.6); RBC Distribution Width SD 56.8 fl (35.1-43.9); Red Blood Count 4.07 M/mm3 (4.2-5.4)
[2019-06-12 13:30] LABS: Anion Gap 6 (5-15); BUN 15 mg/dL (7-18); BUN/Creat Ratio 9.8 RATIO (10-20); Calcium,Total 8.6 mg/dL (8.5-10.1); Chloride 107 mmol/L (98-107); Creatinine, Serum 1.53 mg/dL (0.55-1.02); EST Glomerular Filtration Rate 36 mL/min (>60); Est Glom Filt Rate - Afr Amer 44 mL/min (>60); Glucose 88 mg/dL (74-106); Potassium 3.9 mmol/L (3.5-5.1); Sodium Level 139 mmol/L (136-145)
== END ==
PROVIDERS: PCP Internal Medicine; Visit Provider Internal Medicine
DX: Z45.2 Encounter for adjustment and management of vascular access device (principal); N17.9 Acute kidney failure, unspecified
CPT/HCPCS: 80048; 85025

== ENCOUNTER → 2019-07-27 14:56 | Outpatient (CLI) | payer MEDICARE, SELFPAY ==
[2019-06-03 16:39] VITALS: BMI 20.7
[2019-07-27 15:48] LABS: Absolute Lymphocyte Count 2.05 X10^3/uL (0.83-4.51); Absolute Neutrophil Count 4.3 X10^3/uL (2.0-7.7); Basophil# 0.05 X10^3/uL; Basophil% 0.7 % (0-1); Eosinophil# 0.29 X10^3/uL; Eosinophils% 3.8 % (0-5); Hematocrit 39.4 % (37-47); Hemoglobin 12.6 g/dL (12.0-15.0); Lymphocyte # 2.05 X10^3/ul (4.0); Lymphocyte % 27.1 % (19-41); Mean Corpuscular Hgb 29.4 pg (27.0-32.0); Mean Corpuscular Volume 92.1 fL (81-99); Mean Platelet Vol. 10.4 fl (6.2-12.0); Monocyte# 0.87 X10^3/uL; Monocyte% 11.5 % (0-10); NRBC Flagged by Analyzer 0 % (0-5); Neutrophil # 4.27 X10^3/uL (2.7-7.7); Neutrophil % 56.5 % (47-70); Platelet Count 201 K/mm3 (150-450); RBC Distribution Width CV 17.6 % (11.6-14.6); RBC Distribution Width SD 59.2 fl (35.1-43.9); Red Blood Count 4.28 M/mm3 (4.2-5.4); White Blood Count 7.6 K/mm3 (4.4-11.0)
[2019-07-27 15:51] LABS: Mucous, Urine 0 SEEN /hpf (<or=2+); Squamous Epithelial Cells - UA 0 SEEN /hpf (5-10)
[2019-07-27 15:56] LABS: Color, Urine Yellow (Yellow); Glucose, Dipstick Normal (Normal); Ketone-Dipstick Negative (Negative); Leukocyte Esterase-Dipstick 500 /ul (Negative); Nitrite-Dipstick Positive (Negative); Occult Blood-Urine 150 /ul (Negative); Protein-Dipstick Negative (Negative); Urine Bilirubin Dipstick Negative (Negative); Urine Clarity Cloudy (Clear); Urine Urobilinogen Normal (Normal)
[2019-07-27 15:57] LABS: Platelet Count 213 K/mm3 (150-450); RET-HE 35.3 pg (30-35); Reticulocyte Count 1.32 % (0.5-1.5)
[2019-07-27 16:07] LABS: ALB/GLOB Ratio 0.9 RATIO (0.9-2.4); AST(SGOT) 18 U/L (15-37); Alanine Aminotransfer ALT/SGPT 25 U/L (13-56); Albumin, Serum 3.6 g/dL (3.2-5.0); Alkaline Phosphatase 82 U/L (45-117); Anion Gap 8 (5-15); BUN 27 mg/dL (7-18); Calcium,Total 9.7 mg/dL (8.5-10.1); Chloride 102 mmol/L (98-107); Creatinine, Serum 1.69 mg/dL (0.55-1.02); EST Glomerular Filtration Rate 32 mL/min (>60); Est Glom Filt Rate - Afr Amer 39 mL/min (>60); Globulin 4.1 g/dL (2.2-4.2); Glucose 93 mg/dL (74-106); Potassium 4.4 mmol/L (3.5-5.1); Protein, Total 7.7 g/dL (6.4-8.2); Sodium Level 137 mmol/L (136-145)
[2019-07-27 16:26] LABS: PTHIN 190.3 pg/mL (18.4-80.1)
[2019-07-27 16:28] LABS: Vitamin D,25 Hydroxy 58.1 ng/mL (29.95-100.01)
[2019-07-27 16:30] LABS: Bacteria RARE /hpf (None Seen); Red Blood Cells-Urine 0-5 SEEN /hpf (0-5); White Blood Cells 25-50 SEEN /hpf (0-5)
[2019-07-27 16:32] LABS: Microalbumin,Random Urine 44.6 mg/L (NO RANGE EST.); Microalbumin:Creatinine Ratio 185.1 mg/g CRE (<30 mg/g CRE); Protein, Urine (Random) 15.2 mg/dL (<11.9); Protein:Creat Ratio 631 mg/g CRE (0-200)
[2019-07-27 16:34] LABS: Albumin, Serum 3.6 g/dL (3.2-5.0); BUN 28 mg/dL (7-18); BUN/Creat Ratio 16.5 RATIO (10-20); Calcium,Total 9.4 mg/dL (8.5-10.1); Chloride 103 mmol/L (98-107); EST Glomerular Filtration Rate 32 mL/min (>60); Est Glom Filt Rate - Afr Amer 39 mL/min (>60); Ferritin 92 ng/mL (8-252); Glucose 96 mg/dL (74-106); Iron 60 ug/dL (50-170); Iron Binding Capacity,Total 276 ug/dL (250-450); Potassium 4.3 mmol/L (3.5-5.1); Sodium Level 136 mmol/L (136-145); T4 Free Direct 0.98 ng/dL (0.76-1.46); Thyroid Stim Hormone (TSH) 2.53 uIU/mL (0.358-3.74)
[2019-07-31 20:07] LABS: Endomysial Antibody IgA Negative (Negative); Immunoglobulin A 419 mg/dL (87-352); Immunoglobulin D Quant < 1.34 mg/dL (<14.11); Immunoglobulin G 1235 mg/dL (700-1600)
[2019-08-01 09:57] LABS: Immunoglobulin M 66 mg/dL (26-217)
[2019-08-01 09:58] LABS: Deamidated Gliadin IgA 12 units (0-19); Deamidated Gliadin IgG 8 units (0-19); Immunoglobulin A 436 mg/dL (87-352); t-Transglutaminase IgA <2 U/mL (0-3)
== END ==
PROVIDERS: Family Provider Internal Medicine; PCP Internal Medicine; Referring Provider Internal Medicine; Visit Provider Internal Medicine
DX: N17.9 Acute kidney failure, unspecified (principal); N18.3 Chronic kidney disease, stage 3 (moderate); E61.1 Iron deficiency; G35 Multiple sclerosis; E55.9 Vitamin D deficiency, unspecified; N25.81 Secondary hyperparathyroidism of renal origin; R68.89 Other general symptoms and signs
CPT/HCPCS: 36591; 80053; 80069; 81001; 82043; 82306; 82570; 82728; 82784; 83516; 83540; 83550; 83970; 84156; 84439; 84443; 85025; 85045; 86255; A4216

== ENCOUNTER → 2019-09-14 15:57 | Outpatient (CLI) | payer MEDICARE, SELFPAY ==
[2019-06-03 16:39] VITALS: BMI 20.7
--- NOTE | 2019-09-14 16:01 | BI_ITS ---
MAMMOGRAPHY - BILATERAL SCREENING REASON FOR EXAM: Female, 64 years old. Routine annual screening examination. PERTINENT HISTORY: Grandmother with breast cancer. TECHNIQUE: Digital bilateral breast scott (3D mammographic acquisition) in the CC and MLO projections. 2-D mediolateral oblique (MLO) and craniocaudad (CC) views of both breasts were obtained. CAD: Full Field Digital Mammography with Computer Added Detection was performed. Limited study due to the patient''s medical condition. COMPARISON: Comparison is made with prior study dated May 24, 2018. FINDINGS: Breast Composition: The breasts are heterogeneously dense, which may obscure small masses. There are no dominant masses or suspicious calcifications. No other significant abnormalities are identified. There has been no significant change since the prior study. BI/SCREEN MAMM (CAD) W/SCOTT BILAT IMPRESSION: Stable bilateral screening mammogram. Yearly follow-up mammogram recommended. (A) ASSESSMENT CATEGORY: BIRADS Category 2: Benign. A letter regarding these results will be sent to the patient by the facility within 30 days. Approximately 10% of breast cancers are not detected by mammography. A normal mammogram should not delay biopsy of a clinically suspicious abnormality. [id number] Electronically Signed: Luís Hines, at 8:43 EST , Service support ,
[2019-09-14 16:52] LABS: Absolute Lymphocyte Count 2.12 X10^3/uL (0.83-4.51); Absolute Neutrophil Count 5.2 X10^3/uL (2.0-7.7); Basophil# 0.08 X10^3/uL; Basophil% 0.9 % (0-1); Eosinophil# 0.36 X10^3/uL; Eosinophils% 4.1 % (0-5); Hematocrit 41.6 % (37-47); Hemoglobin 13.3 g/dL (12.0-15.0); Lymphocyte # 2.12 X10^3/ul (4.0); Lymphocyte % 24.4 % (19-41); Mean Corpuscular Hgb 29.7 pg (27.0-32.0); Mean Corpuscular Volume 92.9 fL (81-99); Mean Platelet Vol. 9.8 fl (6.2-12.0); Monocyte# 0.88 X10^3/uL; Monocyte% 10.1 % (0-10); NRBC Flagged by Analyzer 0 % (0-5); Neutrophil # 5.23 X10^3/uL (2.7-7.7); Neutrophil % 60.4 % (47-70); Platelet Count 204 K/mm3 (150-450); RBC Distribution Width CV 14.9 % (11.6-14.6); RBC Distribution Width SD 51.4 fl (35.1-43.9); Red Blood Count 4.48 M/mm3 (4.2-5.4); White Blood Count 8.7 K/mm3 (4.4-11.0)
[2019-09-14 17:00] LABS: ALB/GLOB Ratio 0.8 RATIO (0.9-2.4); AST(SGOT) 17 U/L (15-37); Alanine Aminotransfer ALT/SGPT 23 U/L (13-56); Albumin, Serum 3.5 g/dL (3.2-5.0); Alkaline Phosphatase 88 U/L (45-117); Anion Gap 7 (5-15); BUN 27 mg/dL (7-18); BUN/Creat Ratio 14.8 RATIO (10-20); Calcium,Total 9.9 mg/dL (8.5-10.1); Chloride 104 mmol/L (98-107); Creatinine, Serum 1.82 mg/dL (0.55-1.02); EST Glomerular Filtration Rate 30 mL/min (>60); Est Glom Filt Rate - Afr Amer 36 mL/min (>60); Ferritin 71 ng/mL (8-252); Globulin 4.4 g/dL (2.2-4.2); Glucose 93 mg/dL (74-106); Potassium 4.2 mmol/L (3.5-5.1); Protein, Total 7.9 g/dL (6.4-8.2); Sodium Level 139 mmol/L (136-145)
[2019-09-14 18:09] LABS: PTHIN 64.5 pg/mL (18.4-80.1)
== END ==
PROVIDERS: Family Provider Internal Medicine; PCP Internal Medicine; Referring Provider Internal Medicine; Visit Provider Internal Medicine
DX: Z12.31 Encounter for screening mammogram for malignant neoplasm of breast (principal); Z45.2 Encounter for adjustment and management of vascular access device; G35 Multiple sclerosis; E61.1 Iron deficiency; E21.5 Disorder of parathyroid gland, unspecified; G81.91 Hemiplegia, unspecified affecting right dominant side; N18.3 Chronic kidney disease, stage 3 (moderate); R53.81 Other malaise; R35.0 Frequency of micturition
CPT/HCPCS: 36591; 77063; 77067; 80053; 82728; 83970; 84100; 85025; A4216

== ENCOUNTER → 2019-10-10 15:58 | Outpatient (CLI) | payer MEDICARE, SELFPAY ==
[2019-06-03 16:39] VITALS: BMI 20.7
[2019-10-10 18:12] LABS: Mucous, Urine 0 SEEN /hpf (<or=2+); Squamous Epithelial Cells - UA 0 SEEN /hpf (5-10)
[2019-10-10 18:14] LABS: Absolute Neutrophil Count 10.6 X10^3/uL (2.0-7.7); Basophil# 0.05 X10^3/uL; Basophil% 0.4 % (0-1); Eosinophil# 0.41 X10^3/uL; Eosinophils% 2.9 % (0-5); Hematocrit 42.7 % (37-47); Hemoglobin 13.8 g/dL (12.0-15.0); Lymphocyte % 14.1 % (19-41); Mean Corp Hgb Conc 32.3 g/dL (32-36); Mean Corpuscular Hgb 29.6 pg (27.0-32.0); Mean Corpuscular Volume 91.4 fL (81-99); Mean Platelet Vol. 10.4 fl (6.2-12.0); Monocyte# 1.01 X10^3/uL; Monocyte% 7.1 % (0-10); NRBC Flagged by Analyzer 0 % (0-5); Neutrophil # 10.61 X10^3/uL (2.7-7.7); Neutrophil % 75.1 % (47-70); Platelet Count 210 K/mm3 (150-450); RBC Distribution Width CV 13.9 % (11.6-14.6); RBC Distribution Width SD 47.1 fl (35.1-43.9); Red Blood Count 4.67 M/mm3 (4.2-5.4); White Blood Count 14.1 K/mm3 (4.4-11.0)
[2019-10-10 18:28] LABS: Color, Urine Straw (Yellow); Glucose, Dipstick Normal (Normal); Ketone-Dipstick Negative (Negative); Leukocyte Esterase-Dipstick 500 /ul (Negative); Nitrite-Dipstick Positive (Negative); Occult Blood-Urine 25 /ul (Negative); Protein-Dipstick Negative (Negative); Specific Gravity, Urine 1.005 (1.002-1.030); Urine Bilirubin Dipstick Negative (Negative); Urine Clarity Sl. Cloudy (Clear); Urine Urobilinogen Normal (Normal)
[2019-10-10 18:29] LABS: BUN 36 mg/dL (7-18); Creatinine, Serum 1.81 mg/dL (0.55-1.02); Glucose 90 mg/dL (74-106)
[2019-10-10 18:30] LABS: ALB/GLOB Ratio 0.7 RATIO (0.9-2.4); AST(SGOT) 28 U/L (15-37); Alanine Aminotransfer ALT/SGPT 39 U/L (13-56); Albumin, Serum 3.5 g/dL (3.2-5.0); Alkaline Phosphatase 105 U/L (45-117); Anion Gap 5 (5-15); BUN/Creat Ratio 19.9 RATIO (10-20); Calcium,Total 10.5 mg/dL (8.5-10.1); Chloride 103 mmol/L (98-107); EST Glomerular Filtration Rate 30 mL/min (>60); Est Glom Filt Rate - Afr Amer 36 mL/min (>60); Globulin 4.7 g/dL (2.2-4.2); Potassium 4.4 mmol/L (3.5-5.1); Protein, Total 8.2 g/dL (6.4-8.2); Sodium Level 137 mmol/L (136-145)
[2019-10-10 18:36] LABS: Bacteria RARE /hpf (None Seen); White Blood Cells 25-50 SEEN /hpf (0-5)
[2019-10-10 18:37] LABS: Red Blood Cells-Urine 0-5 SEEN /hpf (0-5)
== END ==
PROVIDERS: Family Provider Internal Medicine; PCP Internal Medicine; Referring Provider Internal Medicine; Visit Provider Internal Medicine
DX: Z45.2 Encounter for adjustment and management of vascular access device (principal); G35 Multiple sclerosis; R35.0 Frequency of micturition; R53.81 Other malaise; G81.91 Hemiplegia, unspecified affecting right dominant side
CPT/HCPCS: 36591; 80053; 81001; 85025; 87077; 87086; 87088; 87186; A4216

== ENCOUNTER → 2019-11-08 15:32 | Outpatient (CLI) | payer MEDICARE, SELFPAY ==
[2019-06-03 16:39] VITALS: BMI 20.7
[2019-11-08 16:17] LABS: Absolute Lymphocyte Count 2.26 X10^3/uL (0.83-4.51); Basophil# 0.08 X10^3/uL; Basophil% 0.8 % (0-1); Eosinophil# 0.49 X10^3/uL; Eosinophils% 5.1 % (0-5); Hematocrit 42.8 % (37-47); Hemoglobin 13.9 g/dL (12.0-15.0); Lymphocyte # 2.26 X10^3/ul (4.0); Lymphocyte % 23.3 % (19-41); Mean Corp Hgb Conc 32.5 g/dL (32-36); Mean Corpuscular Hgb 29.8 pg (27.0-32.0); Mean Corpuscular Volume 91.6 fL (81-99); Mean Platelet Vol. 10.3 fl (6.2-12.0); Monocyte# 0.87 X10^3/uL; NRBC Flagged by Analyzer 0 % (0-5); Neutrophil # 5.97 X10^3/uL (2.7-7.7); Neutrophil % 61.5 % (47-70); Platelet Count 205 K/mm3 (150-450); RBC Distribution Width CV 14.2 % (11.6-14.6); RBC Distribution Width SD 47.6 fl (35.1-43.9); Red Blood Count 4.67 M/mm3 (4.2-5.4); White Blood Count 9.7 K/mm3 (4.4-11.0)
[2019-11-08 16:20] LABS: Color, Urine Straw (Yellow); Glucose, Dipstick Normal (Normal); Ketone-Dipstick Negative (Negative); Leukocyte Esterase-Dipstick 500 /ul (Negative); Nitrite-Dipstick Positive (Negative); Occult Blood-Urine 50 /ul (Negative); Protein-Dipstick Negative (Negative); Specific Gravity, Urine 1.005 (1.002-1.030); Urine Bilirubin Dipstick Negative (Negative); Urine Clarity Cloudy (Clear); Urine Urobilinogen Normal (Normal); Urine pH 6.5 (5.0 - 8.0)
[2019-11-08 16:37] LABS: ALB/GLOB Ratio 0.7 RATIO (0.9-2.4); AST(SGOT) 18 U/L (15-37); Alanine Aminotransfer ALT/SGPT 30 U/L (13-56); Albumin, Serum 3.5 g/dL (3.2-5.0); Alkaline Phosphatase 91 U/L (45-117); Anion Gap 3 (5-15); BUN 31 mg/dL (7-18); BUN/Creat Ratio 19.5 RATIO (10-20); Calcium,Total 9.7 mg/dL (8.5-10.1); Chloride 107 mmol/L (98-107); Creatinine, Serum 1.59 mg/dL (0.55-1.02); EST Glomerular Filtration Rate 35 mL/min (>60); Est Glom Filt Rate - Afr Amer 42 mL/min (>60); Globulin 4.7 g/dL (2.2-4.2); Glucose 83 mg/dL (74-106); Phosphorus 3.5 mg/dL (2.5-4.9); Potassium 4.3 mmol/L (3.5-5.1); Protein, Total 8.2 g/dL (6.4-8.2); Sodium Level 138 mmol/L (136-145)
[2019-11-08 16:46] LABS: Vitamin D,25 Hydroxy 59.8 ng/mL (29.95-100.01)
[2019-11-08 16:54] LABS: Creatinine, Urine (random) < 13.00 mg/dL (NO RANGE EST.); Microalbumin,Random Urine 32.3 mg/L (NO RANGE EST.); Protein, Urine (Random) 8.9 mg/dL (<11.9)
== END ==
PROVIDERS: Family Provider Internal Medicine; PCP Internal Medicine; Referring Provider Internal Medicine; Visit Provider Internal Medicine
DX: Z45.2 Encounter for adjustment and management of vascular access device (principal); G35 Multiple sclerosis; R53.81 Other malaise; G81.91 Hemiplegia, unspecified affecting right dominant side; R35.0 Frequency of micturition; N17.9 Acute kidney failure, unspecified; E83.52 Hypercalcemia; Z43.6 Encounter for attention to other artificial openings of urinary tract
CPT/HCPCS: 36415; 36591; 80053; 81002; 82043; 82306; 82570; 83970; 84100; 84156; 85025; 87070; 87075; 87077; 87086; 87088; 87186; 87205; A4216

== ENCOUNTER → 2019-11-21 16:48 | Outpatient (CLI) | payer MEDICARE, SELFPAY ==
[2019-06-03 16:39] VITALS: BMI 20.7
--- NOTE | 2019-11-21 17:00 | RAD_ITS ---
STUDY: X-RAY - RIGHT HAND, ATTENTION THIRD FINGER REASON FOR EXAM: Female, 64 years old. RIGHT THIRD DIGIT TENDERNESS INN THE PIP JOINT . BEST IMAGES OBTAINED DUE TO PATIENT UNABLE TO STRAIGHTEN FINGERS. WE GOT FINGER STRAIGHT WE COULD TECHNIQUE: 3 view(s) of the finger were obtained. COMPARISON: None. FINDINGS: Hardware in the third metacarpal. Flexure deformity of the distal interphalangeal joint. Age-indeterminate fracture of the base of the third proximal phalanx. Soft tissues are intact. RAD/Finger(s) Min 2 Views IMPRESSION: Age-indeterminate fracture of the base of the third proximal phalanx. Electronically Signed: Daniel Jimenez MD at 17:56 EST Tel , Service support ,
== END ==
PROVIDERS: PCP Internal Medicine; Referring Provider Internal Medicine; Visit Provider Internal Medicine
DX: M79.641 Pain in right hand (principal)
CPT/HCPCS: 73140

== ENCOUNTER → 2019-12-07 15:29 | Outpatient (CLI) | payer MEDICARE, SELFPAY ==
[2019-11-28 14:42] VITALS: BMI 20.7
[2019-12-07 16:07] LABS: Absolute Lymphocyte Count 2.08 X10^3/uL (0.83-4.51); Absolute Neutrophil Count 6.2 X10^3/uL (2.0-7.7); Basophil# 0.08 X10^3/uL; Basophil% 0.8 % (0-1); Eosinophil# 0.39 X10^3/uL; Eosinophils% 4.1 % (0-5); Hematocrit 43.3 % (37-47); Hemoglobin 13.9 g/dL (12.0-15.0); Lymphocyte # 2.08 X10^3/ul (4.0); Lymphocyte % 21.7 % (19-41); Mean Corp Hgb Conc 32.1 g/dL (32-36); Mean Corpuscular Hgb 29.5 pg (27.0-32.0); Mean Corpuscular Volume 91.9 fL (81-99); Mean Platelet Vol. 9.9 fl (6.2-12.0); Monocyte# 0.81 X10^3/uL; Monocyte% 8.5 % (0-10); NRBC Flagged by Analyzer 0 % (0-5); Neutrophil # 6.18 X10^3/uL (2.7-7.7); Neutrophil % 64.6 % (47-70); Platelet Count 188 K/mm3 (150-450); RBC Distribution Width CV 15.2 % (11.6-14.6); Red Blood Count 4.71 M/mm3 (4.2-5.4); White Blood Count 9.6 K/mm3 (4.4-11.0)
[2019-12-07 16:08] LABS: Color, Urine Straw (Yellow); Glucose, Dipstick Normal (Normal); Ketone-Dipstick Negative (Negative); Leukocyte Esterase-Dipstick 500 /ul (Negative); Nitrite-Dipstick Positive (Negative); Occult Blood-Urine 50 /ul (Negative); Protein-Dipstick 15 mg/dl (Negative); Urine Bilirubin Dipstick Negative (Negative); Urine Clarity Cloudy (Clear); Urine Urobilinogen Normal (Normal); Urine pH 6.5 (5.0 - 8.0)
[2019-12-07 16:31] LABS: Albumin, Serum 3.5 g/dL (3.2-5.0); BUN 34 mg/dL (7-18); BUN/Creat Ratio 24.3 RATIO (10-20); Calcium,Total 9.5 mg/dL (8.5-10.1); Chloride 107 mmol/L (98-107); EST Glomerular Filtration Rate 40 mL/min (>60); Est Glom Filt Rate - Afr Amer 49 mL/min (>60); Glucose 91 mg/dL (74-106); Phosphorus 3.5 mg/dL (2.5-4.9); Potassium 4.4 mmol/L (3.5-5.1); Sodium Level 139 mmol/L (136-145)
[2019-12-07 16:36] LABS: Vitamin D,25 Hydroxy 64.9 ng/mL
[2019-12-07 16:45] LABS: Creatinine, Urine (random) < 13.00 mg/dL (NO RANGE EST.); Microalbumin,Random Urine 54.5 mg/L (NO RANGE EST.); Protein, Urine (Random) 14.9 mg/dL (<11.9)
[2019-12-08 08:23] LABS: PTHIN 134.5 pg/mL (18.4-80.1)
== END ==
PROVIDERS: PCP Internal Medicine; Referring Provider Internal Medicine; Visit Provider Internal Medicine
DX: N17.9 Acute kidney failure, unspecified (principal); E83.52 Hypercalcemia; R35.0 Frequency of micturition; G35 Multiple sclerosis; R53.81 Other malaise; G81.91 Hemiplegia, unspecified affecting right dominant side
CPT/HCPCS: 36591; 80069; 81002; 82043; 82306; 82570; 83970; 84156; 85025; 87077; 87086; 87088; 87186; A4216

== ENCOUNTER → 2020-01-17 14:34 | Outpatient (CLI) | payer MEDICARE, SELFPAY ==
[2019-11-28 14:42] VITALS: BMI 20.7
[2020-01-17 15:23] LABS: Absolute Lymphocyte Count 1.78 X10^3/uL (0.83-4.51); Absolute Neutrophil Count 4.2 X10^3/uL (2.0-7.7); Basophil# 0.08 X10^3/uL; Basophil% 1.1 % (0-1); Eosinophil# 0.39 X10^3/uL; Eosinophils% 5.3 % (0-5); Hematocrit 43.1 % (37-47); Hemoglobin 13.7 g/dL (12.0-15.0); Lymphocyte # 1.78 X10^3/ul (4.0); Lymphocyte % 24.4 % (19-41); Mean Corp Hgb Conc 31.8 g/dL (32-36); Mean Corpuscular Hgb 29.2 pg (27.0-32.0); Mean Corpuscular Volume 91.9 fL (81-99); Mean Platelet Vol. 10.1 fl (6.2-12.0); Monocyte# 0.78 X10^3/uL; Monocyte% 10.7 % (0-10); NRBC Flagged by Analyzer 0 % (0-5); Neutrophil # 4.24 X10^3/uL (2.7-7.7); Neutrophil % 58.1 % (47-70); Platelet Count 202 K/mm3 (150-450); RBC Distribution Width CV 15.9 % (11.6-14.6); RBC Distribution Width SD 54.2 fl (35.1-43.9); Red Blood Count 4.69 M/mm3 (4.2-5.4); White Blood Count 7.3 K/mm3 (4.4-11.0)
[2020-01-17 15:32] LABS: Color, Urine Straw (Yellow); Glucose, Dipstick Normal (Normal); Ketone-Dipstick Negative (Negative); Leukocyte Esterase-Dipstick 500 /ul (Negative); Nitrite-Dipstick Positive (Negative); Occult Blood-Urine 25 /ul (Negative); Protein-Dipstick Negative (Negative); Specific Gravity, Urine 1.005 (1.002-1.030); Urine Bilirubin Dipstick Negative (Negative); Urine Clarity Cloudy (Clear); Urine Urobilinogen Normal (Normal); Urine pH 6.5 (5.0 - 8.0)
[2020-01-17 15:38] LABS: ALB/GLOB Ratio 0.8 RATIO (0.9-2.4); AST(SGOT) 20 U/L (15-37); Alanine Aminotransfer ALT/SGPT 31 U/L (13-56); Albumin, Serum 3.4 g/dL (3.2-5.0); Alkaline Phosphatase 108 U/L (45-117); Anion Gap 5 (5-15); BUN 31 mg/dL (7-18); BUN/Creat Ratio 20.5 RATIO (10-20); Calcium,Total 9.5 mg/dL (8.5-10.1); Chloride 106 mmol/L (98-107); Creatinine, Serum 1.51 mg/dL (0.55-1.02); EST Glomerular Filtration Rate 37 mL/min (>60); Est Glom Filt Rate - Afr Amer 45 mL/min (>60); Globulin 4.3 g/dL (2.2-4.2); Glucose 97 mg/dL (74-106); Phosphorus 4.3 mg/dL (2.5-4.9); Potassium 4.2 mmol/L (3.5-5.1); Protein, Total 7.7 g/dL (6.4-8.2); Sodium Level 138 mmol/L (136-145)
[2020-01-17 15:53] LABS: Vitamin D,25 Hydroxy 68.4 ng/mL
[2020-01-17 16:12] LABS: Creatinine, Urine (random) < 13.00 mg/dL (NO RANGE EST.); Microalbumin,Random Urine 27.9 mg/L (NO RANGE EST.); Protein, Urine (Random) 11.3 mg/dL (<11.9)
[2020-01-18 07:43] LABS: PTHIN 130.6 pg/mL (18.4-80.1)
== END ==
PROVIDERS: PCP Internal Medicine; Referring Provider Internal Medicine; Visit Provider Internal Medicine
DX: G35 Multiple sclerosis (principal); R53.81 Other malaise; G81.91 Hemiplegia, unspecified affecting right dominant side; N17.9 Acute kidney failure, unspecified; R82.90 Unspecified abnormal findings in urine; R35.0 Frequency of micturition; E83.52 Hypercalcemia
CPT/HCPCS: 36591; 80053; 81002; 82043; 82306; 82570; 83970; 84100; 84156; 85025; 87077; 87086; 87088; 87186; A4216

== ENCOUNTER → 2020-03-14 14:09 | Outpatient (CLI) | payer MEDICARE, SELFPAY ==
[2019-11-28 14:42] VITALS: BMI 20.7
[2020-03-14] MEDS: 0.9% NaCl VAD Flush IV (14:31)
[2020-03-14] MEDS: 0.9 % NaCl (Sterile) Posiflush 10 mL IV (14:31)
[2020-03-14 14:45] LABS: Absolute Neutrophil Count 5.6 X10^3/uL (2.0-7.7); Basophil# 0.07 X10^3/uL; Basophil% 0.8 % (0-1); Eosinophil# 0.49 X10^3/uL; Eosinophils% 5.5 % (0-5); Hematocrit 45.6 % (37-47); Hemoglobin 14.5 g/dL (12.0-15.0); Lymphocyte % 21.3 % (19-41); Mean Corp Hgb Conc 31.8 g/dL (32-36); Mean Corpuscular Hgb 29.6 pg (27.0-32.0); Mean Corpuscular Volume 93.1 fL (81-99); Mean Platelet Vol. 10.2 fl (6.2-12.0); Monocyte# 0.85 X10^3/uL; Monocyte% 9.5 % (0-10); NRBC Flagged by Analyzer 0 % (0-5); Neutrophil % 62.7 % (47-70); Platelet Count 206 K/mm3 (150-450); RBC Distribution Width CV 14.7 % (11.6-14.6); RBC Distribution Width SD 50.6 fl (35.1-43.9); White Blood Count 8.9 K/mm3 (4.4-11.0)
[2020-03-14 14:48] LABS: Color, Urine Yellow (Yellow); Glucose, Dipstick Normal (Normal); Ketone-Dipstick Negative (Negative); Leukocyte Esterase-Dipstick 500 /ul (Negative); Nitrite-Dipstick Positive (Negative); Occult Blood-Urine 25 /ul (Negative); Protein-Dipstick Negative (Negative); Urine Bilirubin Dipstick Negative (Negative); Urine Clarity Clear (Clear); Urine Urobilinogen Normal (Normal); Urine pH 6.5 (5.0 - 8.0)
[2020-03-14 15:12] LABS: Albumin, Serum 3.6 g/dL (3.2-5.0); BUN 30 mg/dL (7-18); BUN/Creat Ratio 22.9 RATIO (10-20); Calcium,Total 9.6 mg/dL (8.5-10.1); Chloride 105 mmol/L (98-107); Creatinine, Serum 1.31 mg/dL (0.55-1.02); EST Glomerular Filtration Rate 43 mL/min (>60); Est Glom Filt Rate - Afr Amer 52 mL/min (>60); Glucose 88 mg/dL (74-106); Phosphorus 3.2 mg/dL (2.5-4.9); Potassium 4.5 mmol/L (3.5-5.1); Sodium Level 138 mmol/L (136-145)
[2020-03-14 15:14] LABS: PTHIN 240.7 pg/mL (18.4-80.1)
[2020-03-14 15:15] LABS: Creatinine, Urine (random) < 13.00 mg/dL (NO RANGE EST.); Microalbumin,Random Urine 31.1 mg/L (NO RANGE EST.); Protein, Urine (Random) 7.5 mg/dL (<11.9)
[2020-03-15 14:38] LABS: Phosphorus 3.3 mg/dL (2.5-4.9)
== END ==
PROVIDERS: Internal Medicine Endocrinology, Diabetes & Metabolism; PCP Internal Medicine; Referring Provider Internal Medicine; Visit Provider Internal Medicine
DX: Z45.2 Encounter for adjustment and management of vascular access device (principal); N17.9 Acute kidney failure, unspecified; N18.4 Chronic kidney disease, stage 4 (severe); R82.90 Unspecified abnormal findings in urine; G35 Multiple sclerosis; R53.81 Other malaise; G81.91 Hemiplegia, unspecified affecting right dominant side; R35.0 Frequency of micturition
CPT/HCPCS: 36591; 80069; 81002; 82043; 82306; 82570; 83970; 84100; 84156; 85025; 87077; 87086; 87088; 87186; A4216

== ENCOUNTER → 2020-04-11 15:27 | Outpatient (CLI) | payer MEDICARE, SELFPAY ==
[2019-11-28 14:42] VITALS: BMI 20.7
[2020-04-11] MEDS: 0.9% NaCl VAD Flush IV (16:04)
[2020-04-11] MEDS: 0.9 % NaCl (Sterile) Posiflush 10 mL IV (16:04)
[2020-04-11 16:22] LABS: Absolute Lymphocyte Count 2.09 X10^3/uL (0.83-4.51); Basophil# 0.07 X10^3/uL; Basophil% 0.8 % (0-1); Eosinophil# 0.42 X10^3/uL; Hematocrit 45.8 % (37-47); Hemoglobin 14.3 g/dL (12.0-15.0); Lymphocyte # 2.09 X10^3/ul (4.0); Lymphocyte % 24.8 % (19-41); Mean Corp Hgb Conc 31.2 g/dL (32-36); Mean Corpuscular Hgb 29.5 pg (27.0-32.0); Mean Corpuscular Volume 94.4 fL (81-99); Mean Platelet Vol. 9.9 fl (6.2-12.0); Monocyte# 0.85 X10^3/uL; Monocyte% 10.1 % (0-10); NRBC Flagged by Analyzer 0 % (0-5); Neutrophil # 4.96 X10^3/uL (2.7-7.7); Neutrophil % 58.9 % (47-70); Platelet Count 198 K/mm3 (150-450); RBC Distribution Width CV 14.8 % (11.6-14.6); RBC Distribution Width SD 51.7 fl (35.1-43.9); Red Blood Count 4.85 M/mm3 (4.2-5.4); White Blood Count 8.4 K/mm3 (4.4-11.0)
[2020-04-11 16:25] LABS: Color, Urine Yellow (Yellow); Glucose, Dipstick Normal (Normal); Ketone-Dipstick Negative (Negative); Leukocyte Esterase-Dipstick 500 /ul (Negative); Nitrite-Dipstick Positive (Negative); Occult Blood-Urine 50 /ul (Negative); Protein-Dipstick 15 mg/dl (Negative); Urine Bilirubin Dipstick Negative (Negative); Urine Clarity Sl. Cloudy (Clear); Urine Urobilinogen Normal (Normal); Urine pH 6.5 (5.0 - 8.0)
[2020-04-11 16:39] LABS: ALB/GLOB Ratio 0.8 RATIO (0.9-2.4); AST(SGOT) 20 U/L (15-37); Alanine Aminotransfer ALT/SGPT 24 U/L (13-56); Albumin, Serum 3.6 g/dL (3.2-5.0); Alkaline Phosphatase 82 U/L (45-117); Anion Gap 5 (5-15); BUN 25 mg/dL (7-18); BUN/Creat Ratio 19.8 RATIO (10-20); Calcium,Total 9.4 mg/dL (8.5-10.1); Chloride 104 mmol/L (98-107); Creatinine, Serum 1.26 mg/dL (0.55-1.02); EST Glomerular Filtration Rate 45 mL/min (>60); Est Glom Filt Rate - Afr Amer 55 mL/min (>60); Globulin 4.6 g/dL (2.2-4.2); Glucose 87 mg/dL (74-106); Potassium 4.4 mmol/L (3.5-5.1); Protein, Total 8.2 g/dL (6.4-8.2); Sodium Level 138 mmol/L (136-145)
[2020-04-11 17:42] LABS: Creatinine, Urine (random) < 13.00 mg/dL (NO RANGE EST.); Microalbumin,Random Urine 40.6 mg/L (NO RANGE EST.); Protein, Urine (Random) 11.3 mg/dL (<11.9)
[2020-04-12 09:32] LABS: PTHIN 147.8 pg/mL (18.4-80.1)
[2020-04-12 16:22] LABS: Phosphorus 3.2 mg/dL (2.5-4.9)
== END ==
PROVIDERS: PCP Internal Medicine; Referring Provider Internal Medicine; Visit Provider Internal Medicine
DX: Z45.2 Encounter for adjustment and management of vascular access device (principal); N17.9 Acute kidney failure, unspecified; G35 Multiple sclerosis; R53.81 Other malaise; G81.91 Hemiplegia, unspecified affecting right dominant side; R82.90 Unspecified abnormal findings in urine; E83.52 Hypercalcemia
CPT/HCPCS: 36591; 80053; 81002; 82043; 82306; 82570; 83970; 84100; 84156; 85025; 87077; 87086; 87088; 87186; A4216

== ENCOUNTER → 2020-04-24 16:31 | Outpatient (CLI) | payer MEDICARE, SELFPAY ==
[2019-11-28 14:42] VITALS: BMI 20.7
--- NOTE | 2020-04-24 16:34 | US_ITS ---
STUDY: RENAL ULTRASOUND - COMPLETE REASON FOR EXAM: Female, 65 years old. Renal stones. TECHNIQUE: Ultrasound evaluation of the kidneys was performed with real-time and static doherty-scale imaging. COMPARISON: CT of the pelvis, May 23, 2019. FINDINGS: RIGHT KIDNEY: Normal location of the right kidney, which is normal in size. The right kidney measures 9.3 cm. There is a normal cortex of the right kidney. The renal cortex measures 1.6 cm. There is no right renal mass or cyst. Several echogenic foci suggesting renal calculi. Largest measures 5 mm. There is no right hydronephrosis. DISTAL RIGHT URETER: There is non-visualization of the distal right ureter. There is no demonstrated right ureterovesical junction calculus. There is no demonstrated right ureteral jet. LEFT KIDNEY: Normal location of the left kidney, which is normal in size. The left kidney measures 5.3 cm. There is a normal cortex of the left kidney. The renal cortex measures 1.2 cm. 1.5 x 1.8 x 1.5 cm cortical cyst. There are no left renal calculi. There is no left hydronephrosis. DISTAL LEFT URETER: There is non-visualization of the distal left ureter. There is no demonstrated left ureterovesical junction calculus. There is no demonstrated left ureteral jet. BLADDER: The urinary bladder is not visualized due to nondistention. US/Kidney and Bladder IMPRESSION: 1. Multiple echogenic foci in the right kidney thought to represent nonobstructing renal calculi. 2. Atrophic left kidney. There is a small simple cortical cyst unchanged from prior study. No follow-up required. 3. Nonvisualization of the urinary bladder secondary to nondistention Electronically Signed: Devaughn Haq DO at 22:33 EDT Tel [phone], Service support ,
--- NOTE | 2020-04-24 16:35 | RAD_ITS ---
STUDY: X-RAY - ABDOMEN/PELVIS REASON FOR EXAM: Female, 65 years old. Right side kidney stone. TECHNIQUE: Two AP supine views of the abdomen and pelvis. COMPARISON: Renal ultrasound, April 24, 2020. CT of the abdomen and pelvis, May 23, 2019. FINDINGS: There is marked elevation right hemidiaphragm. There is a catheter extending into the right atrium. Normal left lung base. The heart is normal in size. There is air throughout mildly distended colon. There is no marked small bowel dilatation. There is no demonstrated free abdominal air. The visualized liver, spleen and kidneys are grossly normal in size and morphology. No visualized renal or ureteral calcifications. Normal soft tissue structures. There are diffuse degenerative changes of the visualized lumbar spine. RAD/Abdomen Single View IMPRESSION: 1. Colonic ileus versus distal colonic obstruction. 2. No visualized renal or ureteral calculi. 3. Degenerative changes of the lumbar spine. Electronically Signed: Devaughn Haq DO at 22:49 EDT Tel [phone], Service support ,
== END ==
PROVIDERS: PCP Internal Medicine; Referring Provider Urology; Visit Provider Urology
DX: N20.0 Calculus of kidney (principal)
CPT/HCPCS: 74018; 76770

== ENCOUNTER → 2020-05-24 14:34 | Outpatient (CLI) | payer MEDICARE, SELFPAY ==
[2019-11-28 14:42] VITALS: BMI 20.7
[2020-05-24] MEDS: 0.9% NaCl VAD Flush IV (14:53)
[2020-05-24] MEDS: 0.9 % NaCl (Sterile) Posiflush 10 mL IV (14:53)
[2020-05-24 15:16] LABS: Color, Urine Yellow (Yellow); Glucose, Dipstick Normal (Normal); Ketone-Dipstick Negative (Negative); Leukocyte Esterase-Dipstick 500 /ul (Negative); Nitrite-Dipstick Positive (Negative); Occult Blood-Urine 150 /ul (Negative); Protein-Dipstick 30 mg/dl (Negative); Urine Bilirubin Dipstick Negative (Negative); Urine Clarity Cloudy (Clear); Urine Urobilinogen Normal (Normal)
[2020-05-24 15:19] LABS: Hematocrit 45.1 % (37-47); Hemoglobin 14.1 g/dL (12.0-15.0); Mean Corp Hgb Conc 31.3 g/dL (32-36); Mean Corpuscular Hgb 29.6 pg (27.0-32.0); Mean Corpuscular Volume 94.7 fL (81-99); Mean Platelet Vol. 9.9 fl (6.2-12.0); Platelet Count 217 K/mm3 (150-450); RBC Distribution Width CV 14.9 % (11.6-14.6); RBC Distribution Width SD 52.6 fl (35.1-43.9); Red Blood Count 4.76 M/mm3 (4.2-5.4); White Blood Count 9.4 K/mm3 (4.4-11.0)
[2020-05-24 15:26] LABS: Albumin, Serum 3.4 g/dL (3.2-5.0); BUN 23 mg/dL (7-18); BUN/Creat Ratio 18.3 RATIO (10-20); Calcium,Total 9.2 mg/dL (8.5-10.1); Chloride 105 mmol/L (98-107); Creatinine, Serum 1.26 mg/dL (0.55-1.02); EST Glomerular Filtration Rate 45 mL/min (>60); Est Glom Filt Rate - Afr Amer 55 mL/min (>60); Glucose 89 mg/dL (74-106); Phosphorus 3.6 mg/dL (2.5-4.9); Potassium 4.3 mmol/L (3.5-5.1); Sodium Level 138 mmol/L (136-145)
[2020-05-24 15:41] LABS: Microalbumin,Random Urine 69.4 mg/L (NO RANGE EST.); Microalbumin:Creatinine Ratio 274.3 mg/g CRE (<30 mg/g CRE); Protein, Urine (Random) 23.5 mg/dL (<11.9); Protein:Creat Ratio 929 mg/g CRE (0-200)
[2020-05-24 15:45] LABS: Vitamin D,25 Hydroxy 87.9 ng/mL
[2020-05-27 08:37] LABS: PTHIN 168.2 pg/mL (18.4-80.1)
== END ==
PROVIDERS: PCP Internal Medicine; Referring Provider Internal Medicine; Visit Provider Internal Medicine
DX: Z45.2 Encounter for adjustment and management of vascular access device (principal); N17.9 Acute kidney failure, unspecified; R35.0 Frequency of micturition; E83.52 Hypercalcemia; G35 Multiple sclerosis; R53.81 Other malaise; G81.91 Hemiplegia, unspecified affecting right dominant side
CPT/HCPCS: 36591; 80069; 81002; 82043; 82306; 82570; 83970; 84156; 85027; 87077; 87086; 87088; 87186; A4216

== ENCOUNTER → 2020-06-20 14:35 | Outpatient (CLI) | payer MEDICARE, SELFPAY ==
[2019-11-28 14:42] VITALS: BMI 20.7
[2020-06-20] MEDS: 0.9% NaCl VAD Flush IV (14:50)
[2020-06-20] MEDS: 0.9 % NaCl (Sterile) Posiflush 10 mL IV (14:50)
[2020-06-20 15:10] LABS: Absolute Neutrophil Count 5.6 X10^3/uL (2.0-7.7); Basophil# 0.06 X10^3/uL; Basophil% 0.7 % (0-1); Eosinophil# 0.55 X10^3/uL; Eosinophils% 6.3 % (0-5); Hemoglobin 14.1 g/dL (12.0-15.0); Lymphocyte % 19.5 % (19-41); Mean Corpuscular Hgb 30.1 pg (27.0-32.0); Mean Platelet Vol. 9.9 fl (6.2-12.0); Monocyte# 0.77 X10^3/uL; Monocyte% 8.8 % (0-10); NRBC Flagged by Analyzer 0 % (0-5); Neutrophil # 5.63 X10^3/uL (2.7-7.7); Neutrophil % 64.4 % (47-70); Platelet Count 186 K/mm3 (150-450); RBC Distribution Width CV 14.8 % (11.6-14.6); RBC Distribution Width SD 51.3 fl (35.1-43.9); Red Blood Count 4.68 M/mm3 (4.2-5.4); White Blood Count 8.7 K/mm3 (4.4-11.0)
[2020-06-20 15:20] LABS: Color, Urine Yellow (Yellow); Glucose, Dipstick Normal (Normal); Ketone-Dipstick Negative (Negative); Leukocyte Esterase-Dipstick 500 /ul (Negative); Nitrite-Dipstick Positive (Negative); Occult Blood-Urine 150 /ul (Negative); Protein-Dipstick 15 mg/dl (Negative); Specific Gravity, Urine 1.005 (1.002-1.030); Urine Bilirubin Dipstick Negative (Negative); Urine Clarity Sl. Cloudy (Clear); Urine Urobilinogen Normal (Normal)
[2020-06-20 15:25] LABS: PTHIN 244.2 pg/mL (18.4-80.1)
[2020-06-20 15:27] LABS: ALB/GLOB Ratio 0.8 RATIO (0.9-2.4); AST(SGOT) 14 U/L (15-37); Alanine Aminotransfer ALT/SGPT 22 U/L (13-56); Albumin, Serum 3.6 g/dL (3.2-5.0); Alkaline Phosphatase 76 U/L (45-117); Anion Gap 4 (5-15); BUN 21 mg/dL (7-18); BUN/Creat Ratio 17.5 RATIO (10-20); Calcium,Total 9.3 mg/dL (8.5-10.1); Chloride 103 mmol/L (98-107); EST Glomerular Filtration Rate 48 mL/min (>60); Est Glom Filt Rate - Afr Amer 58 mL/min (>60); Globulin 4.6 g/dL (2.2-4.2); Glucose 85 mg/dL (74-106); Phosphorus 2.9 mg/dL (2.5-4.9); Potassium 4.4 mmol/L (3.5-5.1); Protein, Total 8.2 g/dL (6.4-8.2); Sodium Level 137 mmol/L (136-145)
[2020-06-20 15:28] LABS: Vitamin D,25 Hydroxy 75.3 ng/mL
[2020-06-20 16:09] LABS: Creatinine, Urine (random) < 13.00 mg/dL (NO RANGE EST.); Microalbumin,Random Urine 50.7 mg/L (NO RANGE EST.); Protein, Urine (Random) 14.7 mg/dL (<11.9)
== END ==
PROVIDERS: PCP Internal Medicine; Referring Provider Internal Medicine; Visit Provider Internal Medicine
DX: Z45.2 Encounter for adjustment and management of vascular access device (principal); N17.9 Acute kidney failure, unspecified; R35.0 Frequency of micturition; E83.52 Hypercalcemia
CPT/HCPCS: 36591; 80053; 81002; 82043; 82306; 82570; 83970; 84100; 84156; 85025; 87077; 87086; 87088; 87186; A4216

== ENCOUNTER 2020-07-01 15:00 | Outpatient (RCR) | payer MEDICARE, SELFPAY ==
[2019-06-03 16:39] VITALS: BMI 20.7
[2019-11-28 14:42] VITALS: BMI 20.7
--- NOTE | 2019-12-08 15:00 | SOAP_ITS ---
REASON FOR REFERRAL: The Patient is a 64 year old female referred for a clinical assessment of the communication abilities at [facility] on 12/08/2019 due to persistent dysarthria secondary to the diagnosis of multiple sclerosis. The Patient and the Patient?s family is well known to this clinician from multiple treatments sessions across multiple levels of care targeting dysphagia and dysarthria secondary to the diagnosis of multiple sclerosis. The Patients was present for the evaluation, both report persistent hypophonia and dysarthria complicating communication across a variety of settings, though note improvement following prior targeted intervention cycles. The Patient does endorse a long history of oropharyngeal dysphagia secondary to the diagnosis of multiple sclerosis, though both report no new symptomology, with both demonstrating excellent insight in regards to the potential complications of aspiration, the risk factors for aspiration related pulmonary complications, and have maintained recommendations established from the prior intervention cycles. Given the stability of her symptomology, both elected to focus on her expressive communication functioning, which is reasonable. MEDICAL HISTORY: Multiple sclerosis with resulting right hemiparesis and ambulatory impairments, chronic oropharyngeal dysphagia status post percutaneous endoscopic gastrostomy tube placement (placed & removed 09/2015), chronic migraine headaches, chronic muscle spasms, insomnia, neurogenic bladder, chronic suprapubic catheter complicated chronic urinary tract infection, stage IV chronic kidney disease, bilateral hydronephrosis, hyperlipidemia, history of MRSA colonization, allergic rhinitis, iron deficiency anemia, vitamin D deficiency. PREVIOUS MODIFIED BARIUM SWALLOW STUDY: 11/17/2017 MBS revealed moderate to severe oropharyngeal dysphagia (DSRS: 5; SPS: 5) with grade IV SILENT aspiration of thin liquids and grade III SILENT aspiration of nectar thickened liquids. 09/24/2017 MBS revealed moderate oropharyngeal dysphagia with SILENT aspiration of thin liquids. 09/15/2017 MBS revealed moderate oropharyngeal dysphagia with SILENT aspiration of thin liquids. 09/2015 - two prior MBS in [facility]; limited details available. COMMUNICATION ASSESSMENT RESULTS (QUANTITATIVE): Average Vocal Intensity ? Word Level: 65.66 dBSPL Average Vocal Intensity ? Sentence Level: 67.42 dBSPL Average Vocal Intensity ? Multi-Sentence Level: 64.46 dBSPL Average Vocal Intensity ? Paragraph Level: 63.41 dBSPL Average Vocal Intensity ? Conversation Level: 60.61 dBSPL COMMUNICATION ASSESSMENT RESULTS (QUALITATIVE): LANGUAGE FUNCTIONING: moderate to severe dysarthria with hypophonia, with strained / strangled production in addition to intermittent periods of scanning dysarthria; no clear aphasia, anomia, apraxia. RESULTS OF THE EVALUATION: Communication assessment completed this date, with the Patient presenting with moderate to severe dysarthria (R47. 1) secondary to the diagnosis of multiple sclerosis INTERVENTION RECOMMENDATIONS: The Patient requires continued skilled speech-language intervention targeting dysarthria and hypophonia via training and implementation of recommended compensatory communication strategies (increased vocal intensity, over articulation); Patient / caregiver education regarding dysarthria, dysphagia, and cognitive changes associated with the diagnosis of multiple sclerosis; with goal adjustment as clinically indicated. POST ASSESSMENT EDUCATION: Results and recommendations were discussed with the Patient and Patients family immediately following assessment completion, with the Patient and Patients family verbalizing understanding and agreement with all recommendations and education provided. FUNCTIONAL OUTCOMES: OUTCOME 1: the Patient will independently demonstrate and utilize recommended compensatory articulation techniques (increased vocal intensity, over- articulation) to facilitate increased expressive communication abilities in the home and social environments. OUTCOME 2: goal adjustment as needed. Gerson Lugo M.A., CCC-IN HOME SALES CONSULTANT, CBIS MBSImP Certified, LSVT Certified [facility] Speech-Language Pathology Department [email or web address]
== END 2020-07-01 19:00 | disposition home or self-care (01) ==
LOC: SP 15:00
PROVIDERS: PCP Internal Medicine; Visit Provider Internal Medicine
DX: R47.81 Slurred speech (principal); G35 Multiple sclerosis; R13.10 Dysphagia, unspecified
CPT/HCPCS: 92507; 92522

== ENCOUNTER → 2020-08-16 | Outpatient (CLI) | payer MEDICARE, SELFPAY ==
[2019-11-28 14:42] VITALS: BMI 20.7
[2020-08-16 13:38] LABS: Color, Urine Yellow (Yellow); Glucose, Dipstick Normal (Normal); Ketone-Dipstick Negative (Negative); Leukocyte Esterase-Dipstick 500 /ul (Negative); Nitrite-Dipstick Positive (Negative); Occult Blood-Urine 50 /ul (Negative); Protein-Dipstick 15 mg/dl (Negative); Specific Gravity, Urine 1.005 (1.002-1.030); Urine Bilirubin Dipstick Negative (Negative); Urine Clarity Sl. Cloudy (Clear); Urine Urobilinogen Normal (Normal)
== END | disposition home or self-care (01) ==
LOC: LABSPEC 13:07
PROVIDERS: PCP Internal Medicine; Referring Provider Urology; Visit Provider Urology
DX: N39.0 Urinary tract infection, site not specified (principal)
CPT/HCPCS: 81002; 87086; 87088

== ENCOUNTER → 2020-09-06 14:55 | Outpatient (CLI) | payer MEDICARE, SELFPAY ==
[2019-11-28 14:42] VITALS: BMI 20.7
[2020-09-06 15:39] LABS: Mucous, Urine 0 SEEN /hpf (<or=2+); Squamous Epithelial Cells - UA 0 SEEN /hpf (5-10)
[2020-09-06 15:51] LABS: Color, Urine Yellow (Yellow); Glucose, Dipstick Normal (Normal); Ketone-Dipstick Negative (Negative); Leukocyte Esterase-Dipstick 500 /ul (Negative); Nitrite-Dipstick Positive (Negative); Occult Blood-Urine 50 /ul (Negative); Protein-Dipstick 15 mg/dl (Negative); Urine Bilirubin Dipstick Negative (Negative); Urine Clarity Sl. Cloudy (Clear); Urine Urobilinogen Normal (Normal); Urine pH 6.5 (5.0 - 8.0)
[2020-09-06 15:58] LABS: Absolute Lymphocyte Count 1.63 X10^3/uL (0.83-4.51); Absolute Neutrophil Count 5.9 X10^3/uL (2.0-7.7); Basophil# 0.07 X10^3/uL; Basophil% 0.8 % (0-1); Eosinophil# 0.39 X10^3/uL; Eosinophils% 4.4 % (0-5); Hematocrit 46.4 % (37-47); Hemoglobin 14.9 g/dL (12.0-15.0); Lymphocyte # 1.63 X10^3/ul (4.0); Lymphocyte % 18.4 % (19-41); Mean Corp Hgb Conc 32.1 g/dL (32-36); Mean Corpuscular Hgb 30.5 pg (27.0-32.0); Mean Corpuscular Volume 94.9 fL (81-99); Mean Platelet Vol. 9.6 fl (6.2-12.0); Monocyte# 0.83 X10^3/uL; Monocyte% 9.4 % (0-10); NRBC Flagged by Analyzer 0 % (0-5); Neutrophil % 66.5 % (47-70); Platelet Count 213 K/mm3 (150-450); RBC Distribution Width CV 14.6 % (11.6-14.6); RBC Distribution Width SD 51.7 fl (35.1-43.9); Red Blood Count 4.89 M/mm3 (4.2-5.4); White Blood Count 8.9 K/mm3 (4.4-11.0)
[2020-09-06 16:05] LABS: Creatinine, Urine (random) < 13.00 mg/dL (NO RANGE EST.); Microalbumin,Random Urine 40.5 mg/L (NO RANGE EST.); Protein, Urine (Random) 9.7 mg/dL (<11.9)
[2020-09-06 16:08] LABS: ALB/GLOB Ratio 0.8 RATIO (0.9-2.4); AST(SGOT) 17 U/L (15-37); Alanine Aminotransfer ALT/SGPT 25 U/L (13-56); Albumin, Serum 3.6 g/dL (3.2-5.0); Alkaline Phosphatase 99 U/L (45-117); Anion Gap 6 (5-15); BUN 23 mg/dL (7-18); BUN/Creat Ratio 18.7 RATIO (10-20); Calcium,Total 9.4 mg/dL (8.5-10.1); Chloride 103 mmol/L (98-107); Creatinine, Serum 1.23 mg/dL (0.55-1.02); EST Glomerular Filtration Rate 47 mL/min (>60); Est Glom Filt Rate - Afr Amer 56 mL/min (>60); Globulin 4.6 g/dL (2.2-4.2); Glucose 91 mg/dL (74-106); Magnesium 2.3 mg/dL (1.6-2.6); Phosphorus 3.6 mg/dL (2.5-4.9); Potassium 4.4 mmol/L (3.5-5.1); Protein, Total 8.2 g/dL (6.4-8.2); Sodium Level 140 mmol/L (136-145)
[2020-09-06 16:16] LABS: Vitamin D,25 Hydroxy 78.8 ng/mL
[2020-09-06 16:23] LABS: Bacteria 3+ /hpf (None Seen); Red Blood Cells-Urine 0-5 SEEN /hpf (0-5); White Blood Cells 50-100 SEEN /hpf (0-5)
[2020-09-09 08:43] LABS: PTHIN 57.4 pg/mL (18.4-80.1)
== END ==
PROVIDERS: PCP Internal Medicine; Referring Provider Internal Medicine; Visit Provider Internal Medicine
DX: Z45.2 Encounter for adjustment and management of vascular access device (principal); N17.9 Acute kidney failure, unspecified; R35.0 Frequency of micturition; E55.9 Vitamin D deficiency, unspecified
CPT/HCPCS: 36591; 80053; 81001; 82043; 82306; 82570; 83735; 83970; 84100; 84156; 85025; 87077; 87086; 87088; 87186; A4216

== ENCOUNTER 2020-11-15 13:00 | Emergency (ER) | payer MEDICARE, SELFPAY ==
[2019-11-28 14:42] VITALS: BMI 20.7
[2020-11-15] VITALS (7 sets, daily range): BP systolic 147–166; BP diastolic 98–116; PULSE 80–88; RESP 12–19; TEMP 36.3–36.6; O2SAT 93–97; BMI 25.7
--- NOTE | 2020-11-15 13:21 | CT_ITS ---
STUDY: CT ABDOMEN AND PELVIS WITH CONTRAST REASON FOR EXAM: Female, 65 years old. ABD PAIN, CONFUSION RADIATION DOSAGE (If Supplied By Facility): CTDIvol = ( 18.74 ) mGy, DLP = ( 1219.56 ) mGycm TECHNIQUE: Transaxial images were obtained from the dome of the diaphragm to the symphysis pubis without oral contrast. IV 100mL Isovue-300 was administered. Sagittal and coronal images were reconstructed. Individualized dose optimization techniques were used for this CT. COMPARISON: 05/23/2019. FINDINGS: Left base atelectasis. Marked chronic elevation of the right hemidiaphragm. The liver is unremarkable. The gallbladder is unremarkable. The spleen and pancreas are unremarkable. The adrenal glands are normal. Marked left renal atrophy with a 1.7 cm renal cyst. No stones or hydronephrosis. Right renal scarring. Multiple renal calculi measuring up to 5 mm in diameter. Trace right hydronephrosis. Mild right hydroureter without obstructing mass or stone. Mild distention of the left distal ureter without obstructing mass or stone. Phleboliths in the pelvis are unchanged compared to the prior study. The aorta is normal in caliber. There is no free fluid, free air or organized collection. No bowel obstruction or inflammatory change. Normal appendix. Suprapubic catheter. Bladder is not distended. Normal abdominal wall. Normal osseous structures. CT/Abdomen/Pelvis WITH Contrast IMPRESSION: 1. Trace right hydroureteronephrosis without obstructing mass or stone. 2. Nonobstructing right renal calculi. 3. Left base atelectasis. 4. Chronic elevation of the right hemidiaphragm. 5. Chronic left renal atrophy. Electronically Signed: Danika Sharma MD at 17:03 EST Tel , Service support ,
[2020-11-15 14:11] LABS: Mucous, Urine 0 SEEN /hpf (<or=2+)
[2020-11-15 14:14] LABS: Absolute Lymphocyte Count 1.58 X10^3/uL (0.83-4.51); Basophil# 0.07 X10^3/uL; Basophil% 0.9 % (0-1); Eosinophil# 0.46 X10^3/uL; Eosinophils% 5.9 % (0-5); Hematocrit 46.9 % (37-47); Hemoglobin 14.9 g/dL (12.0-15.0); Lymphocyte # 1.58 X10^3/ul (4.0); Lymphocyte % 20.2 % (19-41); Mean Corp Hgb Conc 31.8 g/dL (32-36); Mean Corpuscular Volume 94.6 fL (81-99); Mean Platelet Vol. 9.3 fl (6.2-12.0); Monocyte# 0.72 X10^3/uL; Monocyte% 9.2 % (0-10); NRBC Flagged by Analyzer 0 % (0-5); Neutrophil # 4.97 X10^3/uL (2.7-7.7); Neutrophil % 63.4 % (47-70); Platelet Count 210 K/mm3 (150-450); RBC Distribution Width SD 51.9 fl (35.1-43.9); Red Blood Count 4.96 M/mm3 (4.2-5.4); White Blood Count 7.8 K/mm3 (4.4-11.0)
[2020-11-15 14:16] LABS: Color, Urine Yellow (Yellow); Glucose, Dipstick Normal (Normal); Ketone-Dipstick Negative (Negative); Leukocyte Esterase-Dipstick 500 /ul (Negative); Nitrite-Dipstick Positive (Negative); Occult Blood-Urine 50 /ul (Negative); Protein-Dipstick 30 mg/dl (Negative); Specific Gravity, Urine 1.005 (1.002-1.030); Urine Bilirubin Dipstick Negative (Negative); Urine Clarity Sl. Cloudy (Clear); Urine Urobilinogen Normal (Normal)
[2020-11-15 14:22] LABS: Bacteria 1+ /hpf (None Seen); Red Blood Cells-Urine 0-5 SEEN /hpf (0-5); Squamous Epithelial Cells - UA 0-5 SEEN /hpf (5-10); White Blood Cells 25-50 SEEN /hpf (0-5)
[2020-11-15 14:31] LABS: Vitamin D,25 Hydroxy 62.3 ng/mL
[2020-11-15 14:37] LABS: ALB/GLOB Ratio 0.8 RATIO (0.9-2.4); AST(SGOT) 18 U/L (15-37); Alanine Aminotransfer ALT/SGPT 22 U/L (13-56); Albumin, Serum 3.5 g/dL (3.2-5.0); Alkaline Phosphatase 70 U/L (45-117); Anion Gap 4 (5-15); BUN 15 mg/dL (7-18); BUN/Creat Ratio 13.5 RATIO (10-20); Calcium,Total 9.5 mg/dL (8.5-10.1); Chloride 98 mmol/L (98-107); Creatinine, Serum 1.11 mg/dL (0.55-1.02); EST Glomerular Filtration Rate 52 mL/min (>60); Est Glom Filt Rate - Afr Amer 63 mL/min (>60); Estimated Creatinine Clearance 49.14 ml/min; Globulin 4.5 g/dL (2.2-4.2); Glucose 102 mg/dL (74-106); Sodium Level 132 mmol/L (136-145); Thyroid Stim Hormone (TSH) 2.98 uIU/mL (0.358-3.74)
[2020-11-15] MEDS: Ceftriaxone 1 GM/50 ML BAG IV (15:09)
--- NOTE | 2020-11-15 15:30 | ED.DCSUM_ITS ---
- ER Visit Summary Date of Service: 11/15/20 Chief Complaint: Confusion and suprapubic pain History of Present Illness: The patient is a 65 F who presents with confusion and suprapubic pain that is been getting worse over the past 5 days. states that patient has been more forgetful and acting confused at times. Patient has a suprapubic catheter in place. Patient has also been urinating out her urethra. states that he flushed the suprapubic catheter and it flushed easily. also reports that he change the suprapubic catheter and is still flushes easily. Patient has been having some urinary incontinence. Patient also admits to some burning in the suprapubic area. Patient denies any nausea or vomiting. states the patient did have an abscess at the site of the suprapubic catheter but this opened and drained spontaneously. states that this is improving. Physical Examination: Vital signs are stable. Patient is afebrile. Patient is in no acute distress. Neck is supple. Trachea is midline. There is no JVD noted. Heart was regular rate and rhythm. Lungs are clear and equal bilaterally. Abdomen is soft. Bowel sounds are normal. There is some mild suprapubic tenderness. There is no rebound or guarding noted. Cranial nerves II through XII are grossly intact. There are no new focal motor or sensory deficits noted. Patient has a history of MS and is chronically weak. Test Results: CBC was normal. Comprehensive metabolic profile showed a slightly elevated creatinine of 1.11 and a sodium of 132. The remainder was within normal limits. Urinalysis shows leukocyte esterase of 500 with positive nitrates and occult blood of 50. There are 25-50 white blood cells. TSH was normal at 2.98. Patient's primary care physician, Dr. Carranza called in and requested the TSH as well as a vitamin D level. Vitamin D level was normal. CT scan of the abdomen and pelvis was obtained. Emergency Department Course and Treatment: Patient was given IV fluids and Zofran. Patient was given a dose of Rocephin. Case was discussed with Dr. Carranza. She stated that the patient did well with Bactrim DS in September of last year. Patient was given a prescription for Bactrim DS. Patient was instructed to follow-up with Dr. Carranza in 3 to 5 days. Patient and spouse understood and were agreeable with the plan. All questions were answered. Disposition: Discharge home Impression: 1. Urinary tract infection This note was generated with [employer] software. It may contain incorrect words, spelling, and punctuation that were not noted in review of the chart prior to signing <Mohit Eller - Last Filed: 11/15/20 16:28> - ER Visit Summary Date of Service: 11/15/20 This patient was checked out to me with CT pending. This is returned and shows Test results: IMPRESSION: 1. Trace right hydroureteronephrosis without obstructing mass or stone. 2. Nonobstructing right renal calculi. 3. Left base atelectasis. 4. Chronic elevation of the right hemidiaphragm. 5. Chronic left renal atrophy. Electronically Signed: Signature for MD Danika Holder MD at 17:03 EST Treatment plan: Patient will be discharged with instructions to follow-up with her primary care physician for further evaluation and treatment. Please see Dr. Eller's note for details. Return to the emergency department for any worsening symptoms. Disposition: To home in improved and stable condition. This note was generated with [employer] software. It may contain incorrect words, spelling, and punctuation that were not noted in review of the chart prior to signing <Tung Schmidt - Last Filed: 11/15/20 17:07> ED Disposition <Mohit Eller - Last Filed: 11/15/20 16:28> <Tung Schmidt - Last Filed: 11/15/20 17:07> - Plan for ED Patient: Disposition: Home or Assisted Living Diagnosis: Urinary tract infection Instructions: ED Bladder Infection, Female (Adult) Prescriptions: Smz/Tmp Ds [Bactrim Ds] 1 tab PO BID #14 tab Transmission Status: Received by [facility]/pharmacy #[id number] Referrals: Alexandria Carranza MD [Primary Care Provider] - 3-5 Days
--- NOTE | 2020-11-15 17:37 | NURSING ---
CALLED [facility]. ETA IS 60 MIN
[2020-11-18 15:35] LABS: Vitamin D 1,25-Dihydroxy 78.9 pg/mL (19.9-79.3)
== END 2020-11-15 18:43 | disposition home or self-care (01) ==
PROVIDERS: Emergency Provider Emergency Medicine; PCP Internal Medicine
DX: N39.0 Urinary tract infection, site not specified (principal); N13.30 Unspecified hydronephrosis; R32 Unspecified urinary incontinence; N26.1 Atrophy of kidney (terminal); N18.9 Chronic kidney disease, unspecified
CPT/HCPCS: 36591; 74177; 80053; 81001; 82306; 82652; 84443; 85025; 87040; 87077; 87086; 87088; 87186; 96361; 96365; 99285; Q9967; A4216

== ENCOUNTER → 2020-12-26 13:20 | Outpatient (CLI) | payer MEDICARE, SELFPAY ==
[2020-11-15 13:01] VITALS: BMI 25.7
[2020-12-26] MEDS: 0.9 % NaCl (Sterile) Posiflush 10 mL IV (13:50)
[2020-12-26] MEDS: 0.9% NaCl VAD Flush IV (13:50)
[2020-12-26 14:04] LABS: Mucous, Urine 0 SEEN /hpf (<or=2+)
[2020-12-26 14:07] LABS: Absolute Lymphocyte Count 1.69 X10^3/uL (0.83-4.51); Absolute Neutrophil Count 4.9 X10^3/uL (2.0-7.7); Basophil# 0.05 X10^3/uL; Basophil% 0.6 % (0-1); Eosinophil# 0.35 X10^3/uL; Eosinophils% 4.5 % (0-5); Hematocrit 44.9 % (37-47); Hemoglobin 14.2 g/dL (12.0-15.0); Lymphocyte # 1.69 X10^3/ul (4.0); Lymphocyte % 21.9 % (19-41); Mean Corp Hgb Conc 31.6 g/dL (32-36); Mean Corpuscular Hgb 30.5 pg (27.0-32.0); Mean Corpuscular Volume 96.4 fL (81-99); Mean Platelet Vol. 9.6 fl (6.2-12.0); Monocyte# 0.68 X10^3/uL; Monocyte% 8.8 % (0-10); NRBC Flagged by Analyzer 0 % (0-5); Neutrophil # 4.92 X10^3/uL (2.7-7.7); Neutrophil % 63.8 % (47-70); Platelet Count 204 K/mm3 (150-450); RBC Distribution Width CV 14.6 % (11.6-14.6); RBC Distribution Width SD 51.8 fl (35.1-43.9); Red Blood Count 4.66 M/mm3 (4.2-5.4); White Blood Count 7.7 K/mm3 (4.4-11.0)
[2020-12-26 14:11] LABS: Color, Urine Yellow (Yellow); Glucose, Dipstick Normal (Normal); Ketone-Dipstick Negative (Negative); Leukocyte Esterase-Dipstick 500 /ul (Negative); Nitrite-Dipstick Positive (Negative); Occult Blood-Urine 250 /ul (Negative); Protein-Dipstick 15 mg/dl (Negative); Specific Gravity, Urine 1.005 (1.002-1.030); Urine Bilirubin Dipstick Negative (Negative); Urine Clarity Sl. Cloudy (Clear); Urine Urobilinogen Normal (Normal)
[2020-12-26 14:18] LABS: Bacteria 2+ /hpf (None Seen); Red Blood Cells-Urine 25-50 SEEN /hpf (0-5); Squamous Epithelial Cells - UA 0-5 SEEN /hpf (5-10); White Blood Cells 25-50 SEEN /hpf (0-5)
[2020-12-26 14:24] LABS: ALB/GLOB Ratio 0.8 RATIO (0.9-2.4); AST(SGOT) 19 U/L (15-37); Alanine Aminotransfer ALT/SGPT 21 U/L (13-56); Albumin, Serum 3.5 g/dL (3.2-5.0); Alkaline Phosphatase 77 U/L (45-117); Anion Gap 5 (5-15); BUN 14 mg/dL (7-18); BUN/Creat Ratio 12.1 RATIO (10-20); Chloride 101 mmol/L (98-107); Creatinine, Serum 1.16 mg/dL (0.55-1.02); EST Glomerular Filtration Rate 50 mL/min (>60); Est Glom Filt Rate - Afr Amer 60 mL/min (>60); Globulin 4.5 g/dL (2.2-4.2); Glucose 97 mg/dL (74-106); Potassium 4.2 mmol/L (3.5-5.1); Sodium Level 136 mmol/L (136-145)
[2020-12-26 14:30] LABS: Creatinine, Urine (random) < 13.00 mg/dL (NO RANGE EST.); Microalbumin,Random Urine 46.8 mg/L (NO RANGE EST.)
[2020-12-27 08:50] LABS: PTHIN 189.9 pg/mL (18.4-80.1)
== END ==
PROVIDERS: PCP Internal Medicine; Referring Provider Internal Medicine; Visit Provider Internal Medicine
DX: Z45.2 Encounter for adjustment and management of vascular access device (principal); G35 Multiple sclerosis; R53.81 Other malaise; G81.91 Hemiplegia, unspecified affecting right dominant side; E55.9 Vitamin D deficiency, unspecified
CPT/HCPCS: 36591; 80053; 81001; 82043; 82306; 82330; 82570; 83970; 85025; 87077; 87086; 87088; 87186; A4216

== ENCOUNTER → 2021-01-30 14:54 | Outpatient (CLI) | payer MEDICARE, SELFPAY ==
[2020-11-15 13:01] VITALS: BMI 25.7
[2021-01-30] MEDS: 0.9% NaCl VAD Flush IV (15:11)
[2021-01-30 15:34] LABS: Mucous, Urine 0 SEEN /hpf (<or=2+); Red Blood Cells-Urine 0 SEEN /hpf (0-5); Squamous Epithelial Cells - UA 0 SEEN /hpf (5-10)
[2021-01-30 15:37] LABS: Absolute Lymphocyte Count 2.05 X10^3/uL (0.83-4.51); Absolute Neutrophil Count 5.6 X10^3/uL (2.0-7.7); Basophil# 0.08 X10^3/uL; Basophil% 0.9 % (0-1); Eosinophil# 0.45 X10^3/uL; Hematocrit 46.1 % (37-47); Hemoglobin 14.9 g/dL (12.0-15.0); Lymphocyte # 2.05 X10^3/ul (0.83-4.51); Lymphocyte % 22.7 % (19-41); Mean Corp Hgb Conc 32.3 g/dL (32-36); Mean Corpuscular Hgb 30.7 pg (27.0-32.0); Mean Corpuscular Volume 94.9 fL (81-99); Mean Platelet Vol. 9.5 fl (6.2-12.0); Monocyte# 0.79 X10^3/uL; Monocyte% 8.7 % (0-10); NRBC Flagged by Analyzer 0 % (0-5); Neutrophil # 5.64 X10^3/uL (2.7-7.7); Neutrophil % 62.4 % (47-70); Platelet Count 217 K/mm3 (150-450); RBC Distribution Width CV 14.4 % (11.6-14.6); RBC Distribution Width SD 50.4 fl (35.1-43.9); Red Blood Count 4.86 M/mm3 (4.2-5.4)
[2021-01-30 15:41] LABS: Color, Urine Yellow (Yellow); Glucose, Dipstick Normal (Normal); Ketone-Dipstick Negative (Negative); Leukocyte Esterase-Dipstick 500 /ul (Negative); Nitrite-Dipstick Positive (Negative); Occult Blood-Urine 150 /ul (Negative); Protein-Dipstick 30 mg/dl (Negative); Specific Gravity, Urine 1.005 (1.002-1.030); Urine Bilirubin Dipstick Negative (Negative); Urine Clarity Clear (Clear); Urine Urobilinogen Normal (Normal)
[2021-01-30 15:54] LABS: ALB/GLOB Ratio 0.8 RATIO (0.9-2.4); AST(SGOT) 21 U/L (15-37); Alanine Aminotransfer ALT/SGPT 30 U/L (13-56); Albumin, Serum 3.7 g/dL (3.2-5.0); Alkaline Phosphatase 77 U/L (45-117); Anion Gap 3 (5-15); BUN 13 mg/dL (7-18); BUN/Creat Ratio 11.9 RATIO (10-20); Calcium,Total 9.8 mg/dL (8.5-10.1); Chloride 100 mmol/L (98-107); Creatinine, Serum 1.09 mg/dL (0.55-1.02); EST Glomerular Filtration Rate 53 mL/min (>60); Est Glom Filt Rate - Afr Amer 65 mL/min (>60); Globulin 4.7 g/dL (2.2-4.2); Glucose 87 mg/dL (74-106); Potassium 4.4 mmol/L (3.5-5.1); Protein, Total 8.4 g/dL (6.4-8.2); Sodium Level 134 mmol/L (136-145)
[2021-01-30 16:11] LABS: White Blood Cells 10-25 SEEN /hpf (0-5)
[2021-01-30 16:12] LABS: Bacteria 1+ /hpf (None Seen)
== END ==
PROVIDERS: PCP Internal Medicine; Referring Provider Internal Medicine; Visit Provider Internal Medicine
DX: G35 Multiple sclerosis (principal); R53.81 Other malaise; G81.91 Hemiplegia, unspecified affecting right dominant side; E55.9 Vitamin D deficiency, unspecified
CPT/HCPCS: 36591; 80053; 81001; 82306; 85025; 87077; 87086; 87088; 87186; A4216

== ENCOUNTER → 2021-03-31 13:56 | Outpatient (CLI) | payer MEDICARE, SELFPAY ==
[2020-11-15 13:01] VITALS: BMI 25.7
[2021-03-31 14:40] LABS: Mucous, Urine 0 SEEN /hpf (<or=2+); Squamous Epithelial Cells - UA 0 SEEN /hpf (5-10)
[2021-03-31 14:45] LABS: Absolute Lymphocyte Count 1.45 X10^3/uL (0.83-4.51); Absolute Neutrophil Count 4.4 X10^3/uL (2.0-7.7); Basophil# 0.04 X10^3/uL; Basophil% 0.6 % (0-1); Eosinophil# 0.34 X10^3/uL; Eosinophils% 4.9 % (0-5); Hematocrit 41.2 % (37-47); Hemoglobin 13.4 g/dL (12.0-15.0); Lymphocyte # 1.45 X10^3/ul (0.83-4.51); Mean Corp Hgb Conc 32.5 g/dL (32-36); Mean Corpuscular Hgb 31.1 pg (27.0-32.0); Mean Corpuscular Volume 95.6 fL (81-99); Mean Platelet Vol. 9.3 fl (6.2-12.0); Monocyte# 0.65 X10^3/uL; Monocyte% 9.4 % (0-10); NRBC Flagged by Analyzer 0 % (0-5); Neutrophil % 63.7 % (47-70); Platelet Count 192 K/mm3 (150-450); RBC Distribution Width CV 14.7 % (11.6-14.6); RBC Distribution Width SD 52.4 fl (35.1-43.9); Red Blood Count 4.31 M/mm3 (4.2-5.4); White Blood Count 6.9 K/mm3 (4.4-11.0)
[2021-03-31 14:46] LABS: Color, Urine Yellow (Yellow); Glucose, Dipstick Normal (Normal); Ketone-Dipstick Negative (Negative); Leukocyte Esterase-Dipstick 500 /ul (Negative); Nitrite-Dipstick Positive (Negative); Occult Blood-Urine 25 /ul (Negative); Protein-Dipstick Negative (Negative); Specific Gravity, Urine 1.005 (1.002-1.030); Urine Bilirubin Dipstick Negative (Negative); Urine Clarity Sl. Cloudy (Clear); Urine Urobilinogen Normal (Normal)
[2021-03-31 14:58] LABS: ALB/GLOB Ratio 0.8 RATIO (0.9-2.4); AST(SGOT) 27 U/L (15-37); Alanine Aminotransfer ALT/SGPT 31 U/L (13-56); Albumin, Serum 3.3 g/dL (3.2-5.0); Alkaline Phosphatase 83 U/L (45-117); Anion Gap 5 (5-15); BUN 11 mg/dL (7-18); BUN/Creat Ratio 9.8 RATIO (10-20); Calcium,Total 8.8 mg/dL (8.5-10.1); Chloride 99 mmol/L (98-107); Creatinine, Serum 1.12 mg/dL (0.55-1.02); EST Glomerular Filtration Rate 52 mL/min (>60); Est Glom Filt Rate - Afr Amer 63 mL/min (>60); Globulin 4.3 g/dL (2.2-4.2); Glucose 106 mg/dL (74-106); Potassium 4.3 mmol/L (3.5-5.1); Protein, Total 7.6 g/dL (6.4-8.2); Sodium Level 133 mmol/L (136-145)
[2021-03-31 15:04] LABS: Microalbumin,Random Urine 47.8 mg/L (NO RANGE EST.); Microalbumin:Creatinine Ratio 274.7 mg/g CRE (<30 mg/g CRE)
[2021-03-31 15:15] LABS: Bacteria 1+ /hpf (None Seen); Red Blood Cells-Urine 0-5 SEEN /hpf (0-5); White Blood Cells 10-25 SEEN /hpf (0-5)
[2021-03-31 15:46] LABS: PTHIN 52.5 pg/mL (18.4-80.1)
[2021-03-31 15:50] LABS: Vitamin D,25 Hydroxy 77.8 ng/mL
== END ==
PROVIDERS: PCP Internal Medicine; Referring Provider Internal Medicine; Visit Provider Internal Medicine
DX: Z95.828 Presence of other vascular implants and grafts (principal); G35 Multiple sclerosis; G81.91 Hemiplegia, unspecified affecting right dominant side; R53.81 Other malaise; E55.9 Vitamin D deficiency, unspecified
CPT/HCPCS: 36591; 80053; 81001; 82043; 82306; 82330; 82570; 83970; 85025; 87077; 87086; 87088; 87186; A4216

== ENCOUNTER → 2021-04-28 14:49 | Outpatient (CLI) | payer MEDICARE, SELFPAY ==
[2020-11-15 13:01] VITALS: BMI 25.7
--- NOTE | 2021-04-28 15:13 | BI_ITS ---
MAMMOGRAPHY - BILATERAL SCREENING REASON FOR EXAM: Female, 66 years old. Routine annual screening examination. PERTINENT HISTORY: Grandmother with breast cancer. TECHNIQUE: Digital bilateral breast dalila (3D mammographic acquisition) in the CC and MLO projections. 2-D mediolateral oblique (MLO) and craniocaudad (CC) views of both breasts were obtained. CAD: Full Field Digital Mammography with Computer Added Detection was performed. COMPARISON: Comparison is made with prior study dated 09/14/2019. FINDINGS: Breast Composition: The breasts are heterogeneously dense, which may obscure small masses. There are no dominant masses or suspicious calcifications. No other significant abnormalities are identified. There has been no significant change since the prior study. BI/SCREENING MAMM (CAD), BILAT IMPRESSION: Stable bilateral screening mammogram. Yearly follow-up mammogram recommended. (A) ASSESSMENT CATEGORY: BIRADS Category 1: Negative. A letter regarding these results will be sent to the patient by the facility within 30 days. Approximately 10% of breast cancers are not detected by mammography. A normal mammogram should not delay biopsy of a clinically suspicious abnormality. [id number] Electronically Signed: Luís Hines MD at 8:35 EDT , Service support ,
[2021-04-28 15:20] LABS: Mucous, Urine 0 SEEN /hpf (<or=2+); Squamous Epithelial Cells - UA 0 SEEN /hpf (5-10)
[2021-04-28 15:23] LABS: Color, Urine Yellow (Yellow); Glucose, Dipstick Normal (Normal); Ketone-Dipstick Negative (Negative); Leukocyte Esterase-Dipstick 500 /ul (Negative); Nitrite-Dipstick Positive (Negative); Occult Blood-Urine 50 /ul (Negative); Protein-Dipstick 30 mg/dl (Negative); Urine Bilirubin Dipstick Negative (Negative); Urine Clarity Sl. Cloudy (Clear); Urine Urobilinogen Normal (Normal)
[2021-04-28 15:24] LABS: Absolute Lymphocyte Count 1.79 X10^3/uL (0.83-4.51); Absolute Neutrophil Count 5.2 X10^3/uL (2.0-7.7); Basophil# 0.06 X10^3/uL; Basophil% 0.7 % (0-1); Eosinophil# 0.44 X10^3/uL; Eosinophils% 5.3 % (0-5); Hematocrit 41.6 % (37-47); Hemoglobin 13.2 g/dL (12.0-15.0); Lymphocyte # 1.79 X10^3/ul (0.83-4.51); Lymphocyte % 21.6 % (19-41); Mean Corp Hgb Conc 31.7 g/dL (32-36); Mean Corpuscular Hgb 30.8 pg (27.0-32.0); Mean Platelet Vol. 9.4 fl (6.2-12.0); Monocyte% 9.7 % (0-10); NRBC Flagged by Analyzer 0 % (0-5); Neutrophil # 5.18 X10^3/uL (2.7-7.7); Neutrophil % 62.5 % (47-70); Platelet Count 204 K/mm3 (150-450); RBC Distribution Width CV 14.6 % (11.6-14.6); RBC Distribution Width SD 52.1 fl (35.1-43.9); Red Blood Count 4.29 M/mm3 (4.2-5.4); White Blood Count 8.3 K/mm3 (4.4-11.0)
[2021-04-28 15:33] LABS: Amorphous Sediment 1+; Bacteria 4+ /hpf (None Seen); Red Blood Cells-Urine 0-5 SEEN /hpf (0-5); White Blood Cells >100 SEEN /hpf (0-5)
[2021-04-28 15:38] LABS: ALB/GLOB Ratio 0.8 RATIO (0.9-2.4); AST(SGOT) 19 U/L (15-37); Alanine Aminotransfer ALT/SGPT 26 U/L (13-56); Albumin, Serum 3.4 g/dL (3.2-5.0); Alkaline Phosphatase 87 U/L (45-117); Anion Gap 3 (5-15); BUN 20 mg/dL (7-18); BUN/Creat Ratio 18.2 RATIO (10-20); Calcium,Total 9.2 mg/dL (8.5-10.1); Chloride 101 mmol/L (98-107); EST Glomerular Filtration Rate 53 mL/min (>60); Est Glom Filt Rate - Afr Amer 64 mL/min (>60); Globulin 4.4 g/dL (2.2-4.2); Glucose 78 mg/dL (74-106); Potassium 4.7 mmol/L (3.5-5.1); Protein, Total 7.8 g/dL (6.4-8.2); Sodium Level 133 mmol/L (136-145)
[2021-04-28 15:57] LABS: Vitamin D,25 Hydroxy 78.2 ng/mL
== END ==
PROVIDERS: PCP Internal Medicine; Referring Provider Internal Medicine; Visit Provider Internal Medicine
DX: Z12.31 Encounter for screening mammogram for malignant neoplasm of breast (principal); Z45.2 Encounter for adjustment and management of vascular access device; G35 Multiple sclerosis; G81.91 Hemiplegia, unspecified affecting right dominant side; E55.9 Vitamin D deficiency, unspecified; R53.81 Other malaise; Z80.3 Family history of malignant neoplasm of breast
CPT/HCPCS: 36591; 77063; 77067; 80053; 81001; 82306; 85025; 87077; 87086; 87088; 87186; A4216

== ENCOUNTER → 2021-05-28 14:59 | Outpatient (CLI) | payer MEDICARE, SELFPAY ==
[2021-05-28] MEDS: 0.9% NaCl VAD Flush IV (15:15)
[2021-05-28] MEDS: 0.9 % NaCl (Sterile) Posiflush 10 mL IV (15:15)
[2021-05-28 15:40] LABS: Mucous, Urine 0 SEEN /hpf (<or=2+); Squamous Epithelial Cells - UA 0 SEEN /hpf (5-10)
[2021-05-28 15:41] LABS: Absolute Lymphocyte Count 1.94 X10^3/uL (0.83-4.51); Absolute Neutrophil Count 5.6 X10^3/uL (2.0-7.7); Basophil# 0.06 X10^3/uL; Basophil% 0.7 % (0-1); Eosinophil# 0.37 X10^3/uL; Eosinophils% 4.3 % (0-5); Hematocrit 42.7 % (37-47); Hemoglobin 13.7 g/dL (12.0-15.0); Lymphocyte # 1.94 X10^3/ul (0.83-4.51); Lymphocyte % 22.4 % (19-41); Mean Corp Hgb Conc 32.1 g/dL (32-36); Mean Corpuscular Hgb 31.2 pg (27.0-32.0); Mean Corpuscular Volume 97.3 fL (81-99); Mean Platelet Vol. 9.6 fl (6.2-12.0); Monocyte# 0.65 X10^3/uL; Monocyte% 7.5 % (0-10); NRBC Flagged by Analyzer 0 % (0-5); Neutrophil % 64.6 % (47-70); Platelet Count 198 K/mm3 (150-450); RBC Distribution Width CV 13.9 % (11.6-14.6); RBC Distribution Width SD 49.8 fl (35.1-43.9); Red Blood Count 4.39 M/mm3 (4.2-5.4); White Blood Count 8.7 K/mm3 (4.4-11.0)
[2021-05-28 15:42] LABS: Color, Urine Yellow (Yellow); Glucose, Dipstick Normal (Normal); Ketone-Dipstick Negative (Negative); Leukocyte Esterase-Dipstick 500 /ul (Negative); Nitrite-Dipstick Positive (Negative); Occult Blood-Urine 25 /ul (Negative); Protein-Dipstick 15 mg/dl (Negative); Urine Bilirubin Dipstick Negative (Negative); Urine Clarity Clear (Clear); Urine Urobilinogen Normal (Normal); Urine pH 6.5 (5.0 - 8.0)
[2021-05-28 15:48] LABS: White Blood Cells 10-25 SEEN /hpf (0-5)
[2021-05-28 15:49] LABS: Bacteria RARE /hpf (None Seen); Red Blood Cells-Urine 0-5 SEEN /hpf (0-5)
[2021-05-28 15:59] LABS: ALB/GLOB Ratio 0.8 RATIO (0.9-2.4); AST(SGOT) 24 U/L (15-37); Alanine Aminotransfer ALT/SGPT 30 U/L (13-56); Albumin, Serum 3.6 g/dL (3.2-5.0); Alkaline Phosphatase 81 U/L (45-117); Anion Gap 6 (5-15); BUN 15 mg/dL (7-18); BUN/Creat Ratio 10.8 RATIO (10-20); Calcium,Total 9.5 mg/dL (8.5-10.1); Chloride 97 mmol/L (98-107); Creatinine, Serum 1.39 mg/dL (0.55-1.02); EST Glomerular Filtration Rate 40 mL/min (>60); Est Glom Filt Rate - Afr Amer 49 mL/min (>60); Globulin 4.5 g/dL (2.2-4.2); Glucose 87 mg/dL (74-106); Potassium 4.6 mmol/L (3.5-5.1); Protein, Total 8.1 g/dL (6.4-8.2); Sodium Level 131 mmol/L (136-145)
[2021-05-28 16:01] LABS: Vitamin D,25 Hydroxy 90.2 ng/mL
== END ==
PROVIDERS: PCP Internal Medicine; Referring Provider Internal Medicine; Visit Provider Internal Medicine
DX: Z45.2 Encounter for adjustment and management of vascular access device (principal); G35 Multiple sclerosis; G81.91 Hemiplegia, unspecified affecting right dominant side; E55.9 Vitamin D deficiency, unspecified; R53.81 Other malaise
CPT/HCPCS: 36591; 80053; 81001; 82306; 85025; 87086; 87088; A4216

== ENCOUNTER → 2021-06-20 16:14 | Outpatient (CLI) | payer MEDICARE, SELFPAY ==
--- NOTE | 2021-06-20 16:17 | US_ITS ---
STUDY: ULTRASOUND OF THE FEMALE PELVIS - COMPLETE REASON FOR EXAM: Female, 66 years old. ABN VAG BL LMP: Menopause TECHNIQUE: Transabdominal TECHNICAL QUALITY: Adequate. COMPARISON: None. FINDINGS: The uterus is anteverted and is in a midline position. The uterus measures 5.9 x 4.3 x 3.0 cm cm. Normal uterine cervix. The endometrium measures 4 mm in thickness, and is hyperechoic. 1.5 cm isoechoic mass just posterior to the endometrial stripe which may represent an endometrial mass or submucosal fibroid. There is no demonstrated myometrial mass. I.U.D. - The patient does not have an I.U.D. The ovaries are not visualized.. There is no fluid in the cul-de-sac. The pre void volume of the bladder was ml. The post void volume of the bladder was ml. Irregular wall thickening of the bladder. Polycystic ovary disease: No. US/Pelvic (Non ) IMPRESSION: 1. 1.5 cm endometrial mass or submucosal fibroid. Correlation with hysteroscopy would be useful. 2. Irregular bladder wall thickening and bladder mass cannot be excluded. Electronically Signed: Bill Carter MD at 6:22 EDT Tel , Service support ,
== END ==
PROVIDERS: PCP Internal Medicine; Referring Provider Urology; Visit Provider Urology
DX: N93.9 Abnormal uterine and vaginal bleeding, unspecified (principal)
CPT/HCPCS: 76856

== ENCOUNTER → 2021-06-23 14:31 | Outpatient (CLI) | payer MEDICARE, SELFPAY ==
[2021-06-23 15:07] LABS: Absolute Lymphocyte Count 1.45 X10^3/uL (0.83-4.51); Absolute Neutrophil Count 5.2 X10^3/uL (2.0-7.7); Basophil# 0.04 X10^3/uL; Basophil% 0.5 % (0-1); Eosinophil# 0.38 X10^3/uL; Eosinophils% 4.9 % (0-5); Hematocrit 43.1 % (37-47); Hemoglobin 13.9 g/dL (12.0-15.0); Lymphocyte # 1.45 X10^3/ul (0.83-4.51); Lymphocyte % 18.7 % (19-41); Mean Corp Hgb Conc 32.3 g/dL (32-36); Mean Corpuscular Hgb 31.3 pg (27.0-32.0); Mean Corpuscular Volume 97.1 fL (81-99); Mean Platelet Vol. 9.8 fl (6.2-12.0); Monocyte# 0.64 X10^3/uL; Monocyte% 8.3 % (0-10); NRBC Flagged by Analyzer 0 % (0-5); Neutrophil # 5.22 X10^3/uL (2.7-7.7); Neutrophil % 67.3 % (47-70); Platelet Count 174 K/mm3 (150-450); RBC Distribution Width CV 13.2 % (11.6-14.6); RBC Distribution Width SD 48.1 fl (35.1-43.9); Red Blood Count 4.44 M/mm3 (4.2-5.4); White Blood Count 7.8 K/mm3 (4.4-11.0)
[2021-06-23 15:20] LABS: Mucous, Urine 0 SEEN /hpf (<or=2+)
[2021-06-23 15:22] LABS: ALB/GLOB Ratio 0.7 RATIO (0.9-2.4); AST(SGOT) 18 U/L (15-37); Alanine Aminotransfer ALT/SGPT 27 U/L (13-56); Albumin, Serum 3.4 g/dL (3.2-5.0); Alkaline Phosphatase 81 U/L (45-117); Anion Gap 5 (5-15); BUN 14 mg/dL (7-18); BUN/Creat Ratio 13.3 RATIO (10-20); Calcium,Total 9.4 mg/dL (8.5-10.1); Chloride 100 mmol/L (98-107); Creatinine, Serum 1.05 mg/dL (0.55-1.02); EST Glomerular Filtration Rate 56 mL/min (>60); Est Glom Filt Rate - Afr Amer 67 mL/min (>60); Globulin 4.6 g/dL (2.2-4.2); Glucose 108 mg/dL (74-106); Potassium 4.4 mmol/L (3.5-5.1); Sodium Level 134 mmol/L (136-145)
[2021-06-23 15:24] LABS: Color, Urine Yellow (Yellow); Glucose, Dipstick Normal (Normal); Ketone-Dipstick Negative (Negative); Leukocyte Esterase-Dipstick 500 /ul (Negative); Nitrite-Dipstick Positive (Negative); Occult Blood-Urine 25 /ul (Negative); Protein-Dipstick Negative (Negative); Specific Gravity, Urine 1.005 (1.002-1.030); Urine Bilirubin Dipstick Negative (Negative); Urine Clarity Sl. Cloudy (Clear); Urine Urobilinogen Normal (Normal)
[2021-06-23 15:30] LABS: Red Blood Cells-Urine 0-5 SEEN /hpf (0-5); Squamous Epithelial Cells - UA 0-5 SEEN /hpf (5-10); White Blood Cells 10-25 SEEN /hpf (0-5)
[2021-06-23 15:31] LABS: Bacteria RARE /hpf (None Seen)
[2021-06-23 15:35] LABS: Vitamin D,25 Hydroxy 78.5 ng/mL
[2021-06-23 15:53] LABS: Creatinine, Urine (random) < 13.00 mg/dL (NO RANGE EST.); Microalbumin,Random Urine 41.5 mg/L (NO RANGE EST.)
[2021-06-24 08:27] LABS: PTHIN 154.3 pg/mL (18.4-80.1)
== END ==
PROVIDERS: PCP Internal Medicine; Referring Provider Internal Medicine; Visit Provider Internal Medicine
DX: Z45.2 Encounter for adjustment and management of vascular access device (principal); G35 Multiple sclerosis; G81.91 Hemiplegia, unspecified affecting right dominant side; E55.9 Vitamin D deficiency, unspecified; R53.81 Other malaise
CPT/HCPCS: 36591; 80053; 81001; 82043; 82306; 82330; 82570; 83970; 85025; 87077; 87086; 87088; 87186; A4216

== ENCOUNTER → 2021-08-15 | Outpatient (CLI) | payer MEDICARE, SELFPAY ==
[2021-08-15] MEDS: 0.9 % NaCl (Sterile) Posiflush 10 mL IV (15:22)
[2021-08-15] MEDS: 0.9% NaCl VAD Flush IV (15:22)
[2021-08-15 15:35] LABS: Mucous, Urine 0 SEEN /hpf (<or=2+); Red Blood Cells-Urine 0 SEEN /hpf (0-5); Squamous Epithelial Cells - UA 0 SEEN /hpf (5-10)
[2021-08-15 15:37] LABS: Absolute Lymphocyte Count 1.51 X10^3/uL (0.83-4.51); Basophil# 0.06 X10^3/uL; Basophil% 0.8 % (0-1); Eosinophil# 0.48 X10^3/uL; Eosinophils% 6.1 % (0-5); Hematocrit 42.5 % (37-47); Hemoglobin 13.8 g/dL (12.0-15.0); Lymphocyte # 1.51 X10^3/ul (0.83-4.51); Lymphocyte % 19.3 % (19-41); Mean Corp Hgb Conc 32.5 g/dL (32-36); Mean Corpuscular Hgb 30.4 pg (27.0-32.0); Mean Corpuscular Volume 93.6 fL (81-99); Monocyte# 0.77 X10^3/uL; Monocyte% 9.8 % (0-10); NRBC Flagged by Analyzer 0 % (0-5); Neutrophil # 4.98 X10^3/uL (2.7-7.7); Neutrophil % 63.6 % (47-70); Platelet Count 184 K/mm3 (150-450); RBC Distribution Width CV 13.4 % (11.6-14.6); RBC Distribution Width SD 46.5 fl (35.1-43.9); Red Blood Count 4.54 M/mm3 (4.2-5.4); White Blood Count 7.8 K/mm3 (4.4-11.0)
[2021-08-15 15:43] LABS: Color, Urine Yellow (Yellow); Glucose, Dipstick Normal (Normal); Ketone-Dipstick Negative (Negative); Leukocyte Esterase-Dipstick 500 /ul (Negative); Nitrite-Dipstick Positive (Negative); Occult Blood-Urine Negative /ul (Negative); Protein-Dipstick Negative (Negative); Specific Gravity, Urine 1.015 (1.002-1.030); Urine Bilirubin Dipstick Negative (Negative); Urine Clarity Clear (Clear); Urine Urobilinogen Normal (Normal)
[2021-08-15 15:52] LABS: ALB/GLOB Ratio 0.7 RATIO (0.9-2.4); AST(SGOT) 22 U/L (15-37); Alanine Aminotransfer ALT/SGPT 27 U/L (13-56); Albumin, Serum 3.2 g/dL (3.2-5.0); Alkaline Phosphatase 84 U/L (45-117); Anion Gap 5 (5-15); BUN 13 mg/dL (7-18); BUN/Creat Ratio 10.7 RATIO (10-20); Calcium,Total 9.3 mg/dL (8.5-10.1); Chloride 101 mmol/L (98-107); Creatinine, Serum 1.21 mg/dL (0.55-1.02); EST Glomerular Filtration Rate 47 mL/min (>60); Est Glom Filt Rate - Afr Amer 57 mL/min (>60); Globulin 4.5 g/dL (2.2-4.2); Glucose 99 mg/dL (74-106); Protein, Total 7.7 g/dL (6.4-8.2); Sodium Level 138 mmol/L (136-145)
[2021-08-15 16:01] LABS: Bacteria RARE /hpf (None Seen); White Blood Cells 0-5 SEEN /hpf (0-5)
[2021-08-15 16:04] LABS: Creatinine, Urine (random) < 13.00 mg/dL (NO RANGE EST.); Microalbumin,Random Urine 23.1 mg/L (NO RANGE EST.)
[2021-08-15 16:24] LABS: Vitamin D,25 Hydroxy 77.7 ng/mL
[2021-08-18 09:00] LABS: PTHIN 138.3 pg/mL (18.4-80.1)
== END | disposition home or self-care (01) ==
LOC: MEDOUTP 15:00
PROVIDERS: PCP Internal Medicine; Referring Provider Internal Medicine; Visit Provider Internal Medicine
DX: Z45.2 Encounter for adjustment and management of vascular access device (principal); G35 Multiple sclerosis; R53.81 Other malaise; G81.91 Hemiplegia, unspecified affecting right dominant side; N18.32 Chronic kidney disease, stage 3b; E55.9 Vitamin D deficiency, unspecified; N25.81 Secondary hyperparathyroidism of renal origin; E61.1 Iron deficiency
CPT/HCPCS: 36591; 80053; 81001; 82043; 82306; 82330; 82570; 83970; 85025; 87077; 87086; 87088; 87186; A4216

== ENCOUNTER → 2021-08-22 11:09 | Outpatient (CLI) | payer MEDICARE, SELFPAY ==
[2021-08-22 12:13] LABS: Mucous, Urine 0 SEEN /hpf (<or=2+)
[2021-08-22 12:35] LABS: Color, Urine Yellow (Yellow); Glucose, Dipstick Normal (Normal); Ketone-Dipstick Negative (Negative); Leukocyte Esterase-Dipstick 500 /ul (Negative); Nitrite-Dipstick Negative (Negative); Occult Blood-Urine 150 /ul (Negative); Protein-Dipstick Negative (Negative); Urine Bilirubin Dipstick Negative (Negative); Urine Clarity Sl. Cloudy (Clear); Urine Urobilinogen Normal (Normal); Urine pH 6.5 (5.0 - 8.0)
[2021-08-22 12:46] LABS: Bacteria 1+ /hpf (None Seen); Red Blood Cells-Urine 10-25 SEEN /hpf (0-5); Squamous Epithelial Cells - UA 0-5 SEEN /hpf (5-10); White Blood Cells 25-50 SEEN /hpf (0-5)
== END ==
PROVIDERS: PCP Internal Medicine; Referring Provider Urology; Visit Provider Urology
DX: R30.0 Dysuria (principal); N39.0 Urinary tract infection, site not specified
CPT/HCPCS: 81001; 87077; 87086; 87088; 87186

== ENCOUNTER → 2021-09-18 15:09 | Outpatient (CLI) | payer MEDICARE, SELFPAY ==
[2021-09-18] MEDS: 0.9 % NaCl (Sterile) Posiflush 10 mL IV (15:13)
[2021-09-18] MEDS: 0.9% NaCl VAD Flush IV (15:14)
[2021-09-18 15:45] LABS: Absolute Lymphocyte Count 1.77 X10^3/uL (0.83-4.51); Absolute Neutrophil Count 4.8 X10^3/uL (2.0-7.7); Basophil# 0.07 X10^3/uL; Basophil% 0.9 % (0-1); Eosinophil# 0.68 X10^3/uL; Eosinophils% 8.4 % (0-5); Hematocrit 43.2 % (37-47); Hemoglobin 14.1 g/dL (12.0-15.0); Lymphocyte # 1.77 X10^3/ul (0.83-4.51); Mean Corp Hgb Conc 32.6 g/dL (32-36); Mean Corpuscular Hgb 30.9 pg (27.0-32.0); Mean Corpuscular Volume 94.5 fL (81-99); Monocyte# 0.68 X10^3/uL; Monocyte% 8.4 % (0-10); NRBC Flagged by Analyzer 0 % (0-5); Neutrophil # 4.82 X10^3/uL (2.7-7.7); Neutrophil % 59.9 % (47-70); Platelet Count 194 K/mm3 (150-450); RBC Distribution Width CV 13.7 % (11.6-14.6); RBC Distribution Width SD 47.9 fl (35.1-43.9); Red Blood Count 4.57 M/mm3 (4.2-5.4); White Blood Count 8.1 K/mm3 (4.4-11.0)
[2021-09-18 15:46] LABS: Color, Urine Yellow (Yellow); Glucose, Dipstick Normal (Normal); Ketone-Dipstick Negative (Negative); Leukocyte Esterase-Dipstick 500 /ul (Negative); Mucous, Urine 0 SEEN /hpf (<or=2+); Nitrite-Dipstick Positive (Negative); Occult Blood-Urine 25 /ul (Negative); Protein-Dipstick 15 mg/dl (Negative); Red Blood Cells-Urine 0 SEEN /hpf (0-5); Squamous Epithelial Cells - UA 0 SEEN /hpf (5-10); Urine Bilirubin Dipstick Negative (Negative); Urine Clarity Clear (Clear); Urine Urobilinogen Normal (Normal)
[2021-09-18 15:52] LABS: Bacteria RARE /hpf (None Seen); White Blood Cells 5-10 SEEN /hpf (0-5)
[2021-09-18 16:04] LABS: Vitamin D,25 Hydroxy 82.6 ng/mL
[2021-09-18 16:14] LABS: ALB/GLOB Ratio 0.7 RATIO (0.9-2.4); AST(SGOT) 22 U/L (15-37); Alanine Aminotransfer ALT/SGPT 28 U/L (13-56); Albumin, Serum 3.3 g/dL (3.2-5.0); Alkaline Phosphatase 78 U/L (45-117); Anion Gap 7 (5-15); BUN 15 mg/dL (7-18); BUN/Creat Ratio 12.7 RATIO (10-20); Chloride 101 mmol/L (98-107); Creatinine, Serum 1.18 mg/dL (0.55-1.02); EST Glomerular Filtration Rate 49 mL/min (>60); Est Glom Filt Rate - Afr Amer 59 mL/min (>60); Globulin 4.5 g/dL (2.2-4.2); Glucose 106 mg/dL (74-106); Potassium 4.2 mmol/L (3.5-5.1); Protein, Total 7.8 g/dL (6.4-8.2); Sodium Level 138 mmol/L (136-145)
[2021-09-18 17:05] LABS: Creatinine, Urine (random) < 13.00 mg/dL (NO RANGE EST.); Microalbumin,Random Urine 36.2 mg/L (NO RANGE EST.)
[2021-09-19 07:46] LABS: PTHIN 110.6 pg/mL (18.4-80.1)
== END ==
PROVIDERS: PCP Internal Medicine; Referring Provider Internal Medicine; Visit Provider Internal Medicine
DX: Z45.2 Encounter for adjustment and management of vascular access device (principal); G35 Multiple sclerosis; G81.91 Hemiplegia, unspecified affecting right dominant side; E55.9 Vitamin D deficiency, unspecified; R53.81 Other malaise
CPT/HCPCS: 36591; 80053; 81001; 82043; 82306; 82330; 82570; 83970; 85025; 87077; 87086; 87088; 87186; A4216

== ENCOUNTER 2021-10-30 17:07 | Emergency (ER) | payer MEDICARE, SELFPAY ==
[2021-10-30 17:08] VITALS: BP 130/90; PULSE 83; RESP 16; TEMP 36.6; O2SAT 97; BMI 23.1
[2021-10-30 17:10] VITALS: BP 130/90; PULSE 83; RESP 16; TEMP 36.6; O2SAT 97
[2021-10-30 18:50] LABS: Absolute Lymphocyte Count 2.02 X10^3/uL (0.83-4.51); Absolute Neutrophil Count 6.5 X10^3/uL (2.0-7.7); Basophil# 0.08 X10^3/uL; Basophil% 0.8 % (0-1); Eosinophil# 0.47 X10^3/uL; Eosinophils% 4.7 % (0-5); Hematocrit 44.3 % (37-47); Hemoglobin 14.3 g/dL (12.0-15.0); Lymphocyte # 2.02 X10^3/ul (0.83-4.51); Lymphocyte % 20.4 % (19-41); Mean Corp Hgb Conc 32.3 g/dL (32-36); Mean Corpuscular Hgb 30.6 pg (27.0-32.0); Mean Corpuscular Volume 94.9 fL (81-99); Monocyte# 0.79 X10^3/uL; NRBC Flagged by Analyzer 0 % (0-5); Neutrophil # 6.51 X10^3/uL (2.7-7.7); Neutrophil % 65.7 % (47-70); Platelet Count 173 K/mm3 (150-450); RBC Distribution Width CV 14.8 % (11.6-14.6); RBC Distribution Width SD 50.9 fl (35.1-43.9); Red Blood Count 4.67 M/mm3 (4.2-5.4); White Blood Count 9.9 K/mm3 (4.4-11.0)
[2021-10-30] MEDS: 0.9% Normal Saline 1,000 ML 1000 ML IV (18:58)
[2021-10-30 19:08] VITALS: BP 144/96; PULSE 75; RESP 15; O2SAT 98
[2021-10-30 19:13] LABS: Anion Gap 7 (5-15); BUN 18 mg/dL (7-18); BUN/Creat Ratio 11.8 RATIO (10-20); Calcium,Total 9.2 mg/dL (8.5-10.1); Chloride 104 mmol/L (98-107); Creatinine, Serum 1.52 mg/dL (0.55-1.02); EST Glomerular Filtration Rate 36 mL/min (>60); Est Glom Filt Rate - Afr Amer 44 mL/min (>60); Estimated Creatinine Clearance 36.73 ml/min; Glucose 80 mg/dL (74-106); Potassium 4.6 mmol/L (3.5-5.1); Sodium Level 139 mmol/L (136-145)
[2021-10-30 20:01] LABS: Mucous, Urine 0 SEEN /hpf (<or=2+); Squamous Epithelial Cells - UA 0 SEEN /hpf (5-10)
[2021-10-30 20:10] VITALS: BP 144/96; PULSE 75; RESP 15; TEMP 36.6; O2SAT 98
[2021-10-30 20:11] LABS: Color, Urine Yellow (Yellow); Glucose, Dipstick Normal (Normal); Ketone-Dipstick Negative (Negative); Leukocyte Esterase-Dipstick 500 /ul (Negative); Nitrite-Dipstick Positive (Negative); Occult Blood-Urine 250 /ul (Negative); Protein-Dipstick 30 mg/dl (Negative); Urine Bilirubin Dipstick Negative (Negative); Urine Clarity Cloudy (Clear); Urine Urobilinogen Normal (Normal)
--- NOTE | 2021-10-30 20:36 | EDS_ITS ---
HPI History of Present Illness Chief Complaint: General Illness Informant: spouse/S.O. Narrative Narrative: Patient brought in here with significant other for evaluation. History of MS, does not ambulate. Has a suprapubic cath. Reports patient mild increased confusion and lethargy over the past day. Decreased p.o. intake in the last day. Reports stage III chronic kidney disease and states loss her creatinine is less than 2 that is good for her. Her BUN usually less than 30. She has no cough. Temp of 99.7. Suprapubic cath is changed monthly is followed by Dr. Parada. Spouse states is due to be changed in 3 days. No vomiting or diarrhea. States with her history needs to stay hydrated her symptoms can worsen. She was recently started on Namenda and glycopyrrolate. This has been stopped with concerns of the anticholinergic effects. She is having increasing secretion buildup. She typically can sit and bathe herself however has been little more fatigued. She is Covid vaccinated with the booster. [facility] Medical History Alcohol use Allergic rhinitis Back pain Bilateral hydronephrosis Blackout Chronic constipation CKD (chronic kidney disease) stage 4, GFR 15-29 ml/min Complicated urinary tract infection Constipation Declining functional status Dental bridge present Depression Difficulty swallowing History of echocardiogram History of edema History of wrist fracture Hyperlipidemia Hypertension Indwelling urethral catheter present Insomnia Iron deficiency anemia Loss of hearing Low iron Migraine headache Migraine headache MRSA colonization Multiple sclerosis Multiple sclerosis Muscle spasm Neurogenic bladder Non-smoker OAB (overactive bladder) Port-A-Cath in place Right hemiparesis Transient ischemic attack Uses wheelchair Vitamin D deficiency Home Medications bisacodyl 10 mg RECTAL DAILY 07/01/18 [History Last Taken 02/13/19] acetaminophen 1,000 mg PO Q6H PRN PRN 02/15/19 [History Last Taken 03/25/19] lactulose 60 gm PO QHS 03/25/19 [History Last Taken Unknown] baclofen 20 mg PO TID 05/23/19 [History Last Taken Unknown] magnesium oxide 400 mg PO QHS 05/23/19 [History Last Taken Unknown] melatonin 10 mg PO QHS 05/23/19 [History Last Taken Unknown] polysaccharide iron complex 150 mg PO DAILY 05/23/19 [History Last Taken Unknown] Cinacalcet Hcl 30 mg PO/SL QODAY 11/15/20 [History Last Taken Unknown] fexofenadine 180 mg PO DAILY 11/15/20 [History Last Taken Unknown] bnifayfzrrw-B4-Gtajgaifx serr 1 tab PO DAILY 11/15/20 [History Last Taken Unknown] kknbn-hq-2-tnh-mhk-boajiso-ast 1 ea PO DAILY 11/15/20 [History Last Taken Unknown] mirtazapine 35 mg PO QHS 11/15/20 [History Last Taken Unknown] vitamin B complex-folic acid 1 tab PO DAILY 11/15/20 [History Last Taken Unknown] cholecalciferol (vitamin D3) 50,000 unit PO .QMON 08/15/21 [History Last Taken Unknown] donepezil 10 mg PO DAILY 08/15/21 [History Last Taken Unknown] methylphenidate HCl [Ritalin] 10 mg PO DAILY 08/15/21 [History Last Taken Unknown] multivitamin 1 cap PO DAILY 08/15/21 [History Last Taken Unknown] temazepam 20 mg PO QHS 08/15/21 [History Last Taken Unknown] cskupse-kocn-nmdpl-oreg-capryl 2 cap PO BID 08/15/21 [History Last Taken Unknown] cephalexin 500 mg PO Q12 #14 cap 10/30/21 [Rx Last Taken Unknown] memantine 5 mg PO BID 10/30/21 [History Last Taken Unknown] Allergy/AdvReac Type Severity Reaction Status Date / Time ciprofloxacin [From Cipro] AdvReac hypotension Verified 10/30/21 17:12 dextrose 5 % in water AdvReac Other Verified 10/30/21 17:12 [From Zyvox] doxycycline AdvReac hypotension Verified 10/30/21 17:12 levofloxacin [From Levaquin] AdvReac hypotension Verified 10/30/21 17:12 linezolid [From Zyvox] AdvReac Other Verified 10/30/21 17:12 morphine AdvReac hallucinati Verified 10/30/21 17:12 ons piperacillin [From Zosyn] AdvReac hypotension Verified 10/30/21 17:12 sulfamethoxazole AdvReac hypotension Verified 10/30/21 17:12 [From Bactrim] tazobactam [From Zosyn] AdvReac hypotension Verified 10/30/21 17:12 trimethoprim [From Bactrim] AdvReac hypotension Verified 10/30/21 17:12 vancomycin AdvReac developed Verified 10/30/21 17:12 toxic levels Surgical History History of cystoscopy History of esophagogastroduodenoscopy (EGD) History of tonsillectomy and adenoidectomy History of tympanoplasty Hx of hand surgery Hx of shoulder surgery Social History Smoking Status: Never smoker alcohol intake: never substance use type: does not use what type of physical activity do you participate in: none ROS ROS ED Constitutional Constitutional ED: Denies chills, fever(s) or sweats Eyes Eyes: Denies change in vision ENT ENT ED: Denies dysphagia or sore throat Cardiovascular Cardiovascular: Denies chest pain, leg edema, palpitations or racing heartbeat Respiratory/Chest Respiratory/Chest: Denies cough, dyspnea or dyspnea on exertion Gastrointestinal Gastrointestinal: Denies abdominal pain, diarrhea, nausea or vomiting Genitourinary Genitourinary ED: Denies dysuria, hematuria or urinary frequency Musculoskeletal Musculoskeletal: Denies back pain, extremity pain or neck pain Integumentary Denies rash or wounds Neurologic Neurologic: Reports weakness; Denies headache(s) or paresthesias EXAM Physical Exam Const Vital Signs: 10/30/21 17:08 10/30/21 17:10 10/30/21 17:13 Temperature 97.9 F 97.9 F Temperature Source Oral Oral Pulse Rate 83 83 Respiratory Rate 16 16 Respiratory Effort Normal Non-Labored Respiratory Pattern Normal Blood Pressure 130/90 H 130/90 H Blood Pressure Mean 103 103 Pulse Ox 97 97 Oxygen Delivery Method Room Air Room Air 10/30/21 19:08 10/30/21 20:10 10/30/21 22:10 Temperature 97.9 F Temperature Source Oral Pulse Rate 75 75 87 Respiratory Rate 15 15 18 Respiratory Effort Respiratory Pattern Blood Pressure 144/96 H 144/96 H 145/69 H Blood Pressure Mean 112 112 Pulse Ox 98 98 96 Oxygen Delivery Method Room Air Room Air Positive well nourished Constitutional Narrative: Nontoxic answering questions following some commands. General Appearance ED: NAD HEENT HEENT Narrative: Mild dry mucosal membranes. normocephalic and atraumatic Eyes PERRL, EOMs intact bilaterally and conjunctivae normal General Eye ED: Yes normal appearance of both eyes Neck no lymphadenopathy and supple General: Negative for tenderness Chest Wall Chest: Negative for tenderness Resp normal respiratory effort and normal air movement Effort and Inspection: symmetric chest movement; Negative for respiratory distress Cardio regular rate, regular rhythm and no murmurs Peripheral Pulses: pulses 2+ throughout GI normal to inspection, nondistended, normoactive bowel sounds and non-tender Palpation: Negative for guarding or rebound tenderness present Narrative: Suprapubic cath cloudy urine. Orifice small skin abrasion with no induration or erythema. No drainage. Back/Spine no CVA tenderness and no thoracic nor lumbar tenderness Extremity Extremity Narrative: Lower extremity slight contracture left foot. General Extremety ED: Negative for edema or tenderness General Extremity: Negative for edema Neuro no sensory deficits noted Sensorium / Orientation: awake and alert Skin no rashes or lesions noted and no wounds MDM MDM MDM Narrative Medical decision making narrative: Patient nontoxic vital signs are stable. She was given IV fluids, I did check labs white count 9.9 hemoglobin 14.3 creatinine 1.5 BUN 18. With her reported increasing confusion concerns with cloudy suprapubic cath. I did discuss with spouse to exchange this in the ED to get a clean sample he agreed. This was exchanged urine collected from the new Maldonado catheter returning leukocytes and greater than 100 WBCs. Culture sent. He did agree with starting antibiotics Rocephin is given Keflex prescription. Spouse was comfortable managing the patient at home. She is discharged with outpatient follow-up. Procedure note: Maldonado catheter exchange. Syringe used to remove 10 cc saline from Maldonado bulb, Maldonado was removed. Suprapubic orifice was cleansed. 22 Italian straight Maldonado catheter was looped, placed in with no complications. Recommendations for new straight cath was for 5 cc which was placed. No complications. Patient tolerated procedure well. Patient is being discharged under pandemic conditions under declared global, national and state disaster activation, with limited medical resources. Patient and community understands this. Results discussed in layman's terms to the patient satisfaction. All questions answered in layman's terms. Patient understands importance of follow-up care as directed. Patient has been instructed to return to the ED immediately if new symptoms, problems, or questions occur. We mutually agree with the plan of disposition. The patient understand that they may call or return with any questions or concerns at any time. Lab Data Attestation: I reviewed the patient's lab results. Labs: Laboratory Results - last 24 hr 10/30/21 10/30/21 10/30/21 18:25 18:25 19:53 WBC 9.9 RBC 4.67 Hgb 14.3 Hct 44.3 MCV 94.9 MCH 30.6 MCHC 32.3 RDW Std Deviation 50.9 H RDW Coeff of [place]ur[place] 14.8 H Plt Count 173 MPV 10.0 Immature Gran % (Auto) 0.400 Neut % (Auto) 65.7 Lymph % (Auto) 20.4 [place] % (Auto) 8.0 Eos % (Auto) 4.7 Baso % (Auto) 0.8 Absolute Neuts (auto) 6.5 Absolute Lymphs (auto) 2.02 Nucleated RBC % 0 Sodium 139 Potassium 4.6 Chloride 104 Carbon Dioxide 28.0 Anion Gap 7 BUN 18 Creatinine 1.52 H Estim Creat Clear Calc 36.73 Est GFR (MDRD) Af Amer 44 L Est GFR (MDRD) Non-Af 36 L BUN/Creatinine Ratio 11.8 Glucose 80 Calcium 9.2 Urine Color Yellow Urine Clarity Cloudy Urine pH 7.0 Ur Specific [place] 1.010 Urine Protein 30 H Urine Glucose (UA) Normal Urine Ketones Negative Urine Occult Blood 250 H Urine Nitrite Positive H Urine Bilirubin Negative Urine Urobilinogen Normal Ur Leukocyte Esterase 500 H Urine RBC > 100 SEEN Urine WBC >100 SEEN Ur Squamous Epith Cells 0 SEEN Urine Bacteria RARE Urine Mucus 0 SEEN Discharge Plan Triage Chief Complaint: General Illness ED Provider: Raffi Weinstein Dx/Rx/DC Orders Clinical Impression: CKD (chronic kidney disease) stage 4, GFR 15-29 ml/min, Acute UTI, Multiple sclerosis Instructions: Understanding Urinary Tract ..., CKD Dc Prescriptions: New cephalexin [cephalexin] 500 MG capsule 500 mg PO Q12 Qty: 14 RF: 0 No Action bisacodyl 10 MG suppository 10 mg RECTAL DAILY RF: 0 acetaminophen 500 MG tablet 1,000 mg PO Q6H PRN PRN (Reason: Pain) RF: 0 lactulose 20 GM/30 ML solution 60 gm PO QHS RF: 0 polysaccharide iron complex 150 MG capsule 150 mg PO DAILY RF: 0 baclofen 20 MG tablet 20 mg PO TID RF: 0 melatonin 5 MG capsule 10 mg PO QHS RF: 0 magnesium oxide 400 MG tablet 400 mg PO QHS RF: 0 mirtazapine 15 MG tablet 35 mg PO QHS RF: 0 Cinacalcet Hcl 30 MG tablet 30 mg PO/SL QODAY RF: 0 wsabbermyhf-S3-Invgapbgp serr 1 EACH tablet 1 tab PO DAILY RF: 0 fexofenadine 180 MG tablet 180 mg PO DAILY RF: 0 vitamin B complex-folic acid 0.4 MG tablet 1 tab PO DAILY RF: 0 acmzh-tr-5-gxv-ygm-bjrnvhp-ast 1 EACH capsule 1 ea PO DAILY RF: 0 methylphenidate HCl [Ritalin] 10 mg Tablet 10 mg PO DAILY RF: 0 donepezil 10 mg Tablet 10 mg PO DAILY RF: 0 temazepam 30 mg Capsule 20 mg PO QHS RF: 0 multivitamin Capsule 1 cap PO DAILY RF: 0 zbmwzap-nbjw-shjyg-oreg-capryl 100 mg-150 mg- 50 mg-150 mg Capsule 2 cap PO BID RF: 0 cholecalciferol (vitamin D3) 1,250 mcg (50,000 unit) capsule 50,000 unit PO .QMON RF: 0 memantine 5 mg Tablet 5 mg PO BID RF: 0 Primary Care Provider: Alexandria Carranza Referrals: Alexandria Carranza MD [Primary Care Provider] - 1 Week Activity Restrictions/Additional Instructions: Suprapubic catheter exchange prior to urine collection noting infection. Culture sent. Take antibiotic as prescribed. Follow-up with your doctor. Disposition Disposition: Home, Self Care Discharge Date/Time: 10/30/21 23:00
[2021-10-30 20:37] LABS: Red Blood Cells-Urine > 100 SEEN /hpf (0-5); White Blood Cells >100 SEEN /hpf (0-5)
[2021-10-30 20:38] LABS: Bacteria RARE /hpf (None Seen)
[2021-10-30] MEDS: Ceftriaxone 1 GM/50 ML BAG IV (21:15)
[2021-10-30 22:10] VITALS: BP 145/69; PULSE 87; RESP 18; O2SAT 96
== END 2021-10-30 23:00 | disposition home or self-care (01) ==
PROVIDERS: Emergency Provider Emergency Medicine; PCP Internal Medicine; Visit Provider Emergency Medicine
DX: N18.4 Chronic kidney disease, stage 4 (severe) (principal); G35 Multiple sclerosis; N39.0 Urinary tract infection, site not specified; E55.9 Vitamin D deficiency, unspecified; F32.A Depression, unspecified; Z79.899 Other long term (current) drug therapy
CPT/HCPCS: 36591; 80048; 81001; 85025; 87077; 87086; 87088; 87186; 87426; 96361; 96365; 99284; J7030; J7050; A4216

== ENCOUNTER 2021-11-18 05:52 | Day surgery (SDC) | payer MEDICARE, SELFPAY ==
[2021-11-18] VITALS (10 sets, daily range): BP systolic 112–145; BP diastolic 62–99; PULSE 75–114; RESP 14–16; TEMP 36–36.8; O2SAT 90–95; BMI 21.5
--- NOTE | 2021-11-18 | EMB_PTH ---
PATIENT: KEN CASON LOC: [facility] [place] U#:[id number] AGE/SX: 66/F ROOM: RE11/18/[address]: Dr. Kiki Friend MD : [id number] BED: DIS: 11/18/2021 SPEC #: [id number] RECD: 11/18/21 13:17 STATUS: SANDRITA REA[place] #: [id number] JOSE ARMANDO: 11/18/21 00:[address]: Kiki Friend DEPT: SURGICAL PATHOLOGY RECD BY: Christopher Sims ENTERED: 11/18/21 13:18 SP TYPE: ENDOM BX/C OTHR DR: MD Dr. Jaleesa Carolina MD Tissues: Endometrium, NOS Procedures: Surgery Specimen Level IV HEADER OPERATION: Hysteroscopy, polypectomy, pap culture, mini laparoscopy PRE-OP DIAGNOSIS: Endometrial thickening on ultrasound TISSUE SUBMITTED: Endometrial polyps MICROSCOPIC DIAGNOSIS Endometrial polyps, polypectomy: A polypoid fragment of myometrium and mucus. See comment. MARVIN:mateo 11/19/2021 COMMENT Endometrial tissue is not identified. The specimen predominantly consists of mucus. MICROSCOPIC DESCRIPTION Slides are reviewed. GROSS DESCRIPTION Received in fixative is one container labeled with the patient's name and designated endometrial polyps. The specimen consists of multiple irregular fragments of mak-pink polypoid tissue that in aggregate measure 1.5 x 1 x 0.3 cm. The specimen is totally submitted in one cassette. / MARVIN:mateo 11/18/2021 TC:5 CPT: 57636
--- NOTE | 2021-11-18 06:08 | EKG12_ITS ---
Test Reason : PREOP Blood Pressure : / mmHG Vent. Rate : 073 BPM Atrial Rate : 073 BPM P-R Int : 132 ms QRS Dur : 098 ms QT Int : 462 ms P-R-T Axes : 025 003 018 degrees QTc Int : 508 ms Normal sinus rhythm Prolonged QT Abnormal ECG When compared with ECG of 23-MAY-2019 08:44, T wave amplitude has increased in Lateral leads Confirmed by JENNIFER RAMÍREZ, SHELBIE ([id number]), slot editor OZZIE MG ([id number]) on 11/24/2021 1:29:30 PM Referred By: Kiki Friend Confirmed By:HARJINDER RODRIGUEZ MD
[2021-11-18] MEDS: Lactated Ringers 1,000 ML 120 ML IV ×2 (06:15→09:10)
--- NOTE | 2021-11-18 07:41 | HP.PCM_ITS ---
HPI - General HPI Narrative KEN CASON, is a 66 F who presents for evaluation of her bladder, vulva and suprapubic tube site. She has long standing MS and is no longer ambulatory. Has been having vulvovaginal burning. We will proceed with pelvic exam, possible vulvar biopsy, cystoscopy and evaluation of her suprapubic tube site. Informed consent has been obtained. [facility] Medical History (Updated 11/18/21 @ 07:[address] Jaleesa Parada MD) Alcohol use Allergic rhinitis Back pain Bilateral hydronephrosis Blackout Chronic constipation CKD (chronic kidney disease) stage 4, GFR 15-29 ml/min Complicated urinary tract infection Constipation Declining functional status Dental bridge present Depression Difficulty swallowing History of echocardiogram History of edema History of wrist fracture Hyperlipidemia Hypertension Indwelling urethral catheter present Insomnia Iron deficiency anemia Loss of hearing Low iron Migraine headache Migraine headache MRSA colonization Multiple sclerosis Multiple sclerosis Muscle spasm Neurogenic bladder Non-smoker OAB (overactive bladder) Pelvic pain Port-A-Cath in place Right hemiparesis Transient ischemic attack Urinary tract infection Uses wheelchair Vitamin D deficiency Wears glasses Home Medications bisacodyl 10 mg RECTAL DAILY 07/01/18 [History Last Taken 02/13/19] acetaminophen 1,000 mg PO Q6H PRN PRN 02/15/19 [History Last Taken 03/25/19] lactulose 60 gm PO QHS 03/25/19 [History Last Taken Unknown] baclofen 20 mg PO TID 05/23/19 [History Last Taken 11/18/21 04:00] magnesium oxide 400 mg PO QHS 05/23/19 [History Last Taken Unknown] melatonin 10 mg PO QHS 05/23/19 [History Last Taken Unknown] polysaccharide iron complex 150 mg PO DAILY 05/23/19 [History Last Taken Unknown] Cinacalcet Hcl 30 mg PO/SL QODAY 11/15/20 [History Last Taken Unknown] pdfmlxrhuxc-A5-Ohqsatzkp serr 1 tab PO DAILY 11/15/20 [History Last Taken Unknown] aypqr-qu-1-fsj-bps-kslpcsv-ast 1 ea PO DAILY 11/15/20 [History Last Taken Unknown] mirtazapine 35 mg PO QHS 11/15/20 [History Last Taken Unknown] vitamin B complex-folic acid 1 tab PO DAILY 11/15/20 [History Last Taken Unknown] cholecalciferol (vitamin D3) 50,000 unit PO .QMON 08/15/21 [History Last Taken Unknown] donepezil 10 mg PO DAILY 08/15/21 [History Last Taken Unknown] methylphenidate HCl [Ritalin] 10 mg PO DAILY 08/15/21 [History Last Taken 11/18/21 04:00] multivitamin 1 cap PO DAILY 08/15/21 [History Last Taken Unknown] temazepam 20 mg PO QHS 08/15/21 [History Last Taken Unknown] hogyphd-ebfu-wqqfq-oreg-capryl 2 cap PO BID 08/15/21 [History Last Taken Unknown] cephalexin 500 mg PO Q12 #14 cap 10/30/21 [Rx Last Taken Unknown] glycopyrrolate 2 mg tablet 2 mg PO BID-TID PRN 11/03/21 [History Last Taken Unknown] loratadine 10 mg tablet 10 mg PO DAILY 11/03/21 [History Last Taken Unknown] misoprostol 200 mcg tablet 200 mcg PO .COMPLEX #2 tab 11/03/21 [Rx Last Taken 11/18/21 04:00] Allergy/AdvReac Type Severity Reaction Status Date / Time ciprofloxacin [From Cipro] AdvReac hypotension Verified 11/18/21 06:21 dextrose 5 % in water AdvReac Other Verified 11/18/21 06:21 [From Zyvox] doxycycline AdvReac hypotension Verified 11/18/21 06:21 levofloxacin [From Levaquin] AdvReac hypotension Verified 11/18/21 06:21 linezolid [From Zyvox] AdvReac Other Verified 11/18/21 06:21 morphine AdvReac hallucinati Verified 11/18/21 06:21 ons piperacillin [From Zosyn] AdvReac hypotension Verified 11/18/21 06:21 sulfamethoxazole AdvReac hypotension Verified 11/18/21 06:21 [From Bactrim] tazobactam [From Zosyn] AdvReac hypotension Verified 11/18/21 06:21 trimethoprim [From Bactrim] AdvReac hypotension Verified 11/18/21 06:21 vancomycin AdvReac developed Verified 11/18/21 06:21 toxic levels Surgical History History of cystoscopy History of esophagogastroduodenoscopy (EGD) History of tonsillectomy and adenoidectomy History of tympanoplasty Hx of hand surgery Hx of shoulder surgery Social History Smoking Status: Never smoker alcohol intake: never substance use type: does not use what type of physical activity do you participate in: none seatbelt use: always do you feel safe at home: Yes 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 She does not really talk much. Sh e has no other specific complaints this morning. Vital Signs Vital Signs Vital Signs: 11/18/21 06:24 Temperature 98.2 F Temperature Source Temporal Pulse Rate 75 Respiratory Rate 14 Respiratory Pattern Normal Blood Pressure 145/73 H Blood Pressure Mean 97 Blood Pressure Source Monitor Blood Pressure Position Semi-Fowlers Blood Pressure Location Right Arm Pulse Ox 95 Oxygen Delivery Method Room Air Weight Weight: 68.039 kg Body Mass Index (BMI) 21.5 Physical Exam Const alert General Appearance: cooperative, comfortable and well kempt HEENT normocephalic, head/scalp atraumatic, external ears normal and external nose normal Eyes conjunctivae normal General Eye: normal appearance of both eyes Neck supple General: trachea midline Chest inspection of chest normal Chest: symmetrical chest wall rise Resp normal respiratory effort, normal air movement, no retractions and no use of accessory muscles Cardio regular rate and regular rhythm GI soft to palpation and non-distended no CVA tenderness Narrative: urine in elias catheter is clear Back/Spine no CVA tenderness Extremity Extremity Narrative: atrophic Skin no rashes or lesions noted, no jaundice, no petechiae and no mottling Assessment & Plan Assessment/Plan (1) Neurogenic bladder: (2) Multiple sclerosis: (3) Pelvic pain: (4) Urinary tract infection: PLAN: proceed with pelvic exam, possible biopsy, cystoscopy and evaluation suprapubic tube site. informed consent obtained
--- NOTE | 2021-11-18 07:46 | PCM.OPRPT ---
Problems Associated Problem List Diagnoses (1) Urinary tract infection: (2) Pelvic pain: (3) Neurogenic bladder: Report of Operation Date of Procedure: 11/18/21 Pre-Operative Diagnosis: urinary tract infections, pelvic pain, neurogenic bladder Post-Operative Diagnosis: same, vulvovaginal atrophy Surgery/Procedure Performed:: pelvic exam, cystoscopy, debridement of suprapubic tube abscess site Surgeon: Jaleesa Parada Type of Anesthesia: General Description of Procedure: The patient is a 66-year-old female with a longstanding history of multiple sclerosis. She has a chronic indwelling suprapubic catheter for management of her neurogenic bladder and urinary retention. She has been complaining of vaginal discomfort. She has also been having intermittent small abscess formations at the suprapubic tube site that will often drain on its own. She had a pelvic ultrasound revealing an endometrial polyp and thickness. She is here for combination procedure between urology and gynecology. Informed consent was obtained. The patient was taken to the operating room and placed on the operating room table. Anesthesia monitored the head, neck, airway, IV access and vital signs throughout the case. Once anesthesia was appropriate ministered the patient was placed into dorsal lithotomy position and a vaginal culture and Pap smear was performed. She was then prepped and draped in usual sterile fashion. The vulva was significant only for atrophy of tissue, no mass or other abnormality was seen. The cystoscope was inserted through the urethra under direct visualization without difficulty. The bladder mucosa was visualized in its entirety. There is no evidence of mass, erythema, foreign body other than the suprapubic tube. The cystoscope was removed at this time and Dr. Friend performed her portion of the procedure please see her operative report. At the conclusion of this, the suprapubic tube site was prepped with Betadine. A small, 7-8mm irregular area of tissue just beneath the surface of the skin at the 2 o'clock position was a small pocket of tissue consistent with source for recurring infection. This was excised with a knife and bacitracin was applied. The suprapubic tube was changed for a brand-new 22 [place] catheter without difficulty. Drain sponges were applied and the patient tolerated the procedure well. She was awakened and taken to the recovery room in good condition. There were no complications during this procedure. Grafts/Implants Used: 22Fr elias catheter used for suprapubic tube change Complications none Admit VTE Documentation VTE Present on Admission: Yes VTE Mechan Device Prophylaxis: SCD's VTE Pharm Prophylaxis ordered?: No Reason prophylaxis not ordered:: Treatment Not Indicated
--- NOTE | 2021-11-18 08:04 | PCM.HP.BLA ---
History and Physical Date of Admission: 11/18/21 Visit Reasons: preop karl schaefer pt has MS in wheelchair Chief Complaint: pre op karl schaefer [employer] Required: No Is patient in pain?: Yes Allergies ciprofloxacin [From Cipro] Adverse Reaction (Verified 10/30/21 17:12) hypotension dextrose 5 % in water [From Zyvox] Adverse Reaction (Verified 10/30/21 17:12) Other doxycycline Adverse Reaction (Verified 10/30/21 17:12) hypotension levofloxacin [From Levaquin] Adverse Reaction (Verified 10/30/21 17:12) hypotension linezolid [From Zyvox] Adverse Reaction (Verified 10/30/21 17:12) Other morphine Adverse Reaction (Verified 10/30/21 17:12) hallucinations piperacillin [From Zosyn] Adverse Reaction (Verified 10/30/21 17:12) hypotension sulfamethoxazole [From Bactrim] Adverse Reaction (Verified 10/30/21 17:12) hypotension tazobactam [From Zosyn] Adverse Reaction (Verified 10/30/21 17:12) hypotension trimethoprim [From Bactrim] Adverse Reaction (Verified 10/30/21 17:12) hypotension vancomycin Adverse Reaction (Verified 10/30/21 17:12) developed toxic levels Medications bisacodyl 10 mg RECTAL DAILY 07/01/18 [History Confirmed 11/03/21] acetaminophen 1,000 mg PO Q6H PRN PRN 02/15/19 [History Confirmed 11/03/21] lactulose 60 gm PO QHS 03/25/19 [History Confirmed 10/30/21] baclofen 20 mg PO TID 05/23/19 [History Confirmed 11/03/21] magnesium oxide 400 mg PO QHS 05/23/19 [History Confirmed 11/03/21] melatonin 10 mg PO QHS 05/23/19 [History Confirmed 11/03/21] polysaccharide iron complex 150 mg PO DAILY 05/23/19 [History Confirmed 11/03/21] Cinacalcet Hcl 30 mg PO/SL QODAY 11/15/20 [History Confirmed 11/03/21] dtqpebplsnl-J4-Alwqsrvlk serr 1 tab PO DAILY 11/15/20 [History Confirmed 11/03/21] wzbjf-we-5-vsf-pzh-rqdedpy-ast 1 ea PO DAILY 11/15/20 [History Confirmed 11/03/21] mirtazapine 35 mg PO QHS 11/15/20 [History Confirmed 11/03/21] vitamin B complex-folic acid 1 tab PO DAILY 11/15/20 [History Confirmed 11/03/21] cholecalciferol (vitamin D3) 50,000 unit PO .QMON 08/15/21 [History Confirmed 11/03/21] donepezil 10 mg PO DAILY 08/15/21 [History Confirmed 11/03/21] methylphenidate HCl [Ritalin] 10 mg PO DAILY 08/15/21 [History Confirmed 10/30/21] multivitamin 1 cap PO DAILY 08/15/21 [History Confirmed 11/03/21] temazepam 20 mg PO QHS 08/15/21 [History Confirmed 11/03/21] bkpoyly-lmya-rtbym-oreg-capryl 2 cap PO BID 08/15/21 [History Confirmed 11/03/21] cephalexin 500 mg PO Q12 #14 cap 10/30/21 [Rx Confirmed 11/03/21] memantine 5 mg PO BID 10/30/21 [History Confirmed 11/03/21] glycopyrrolate 2 mg tablet 2 mg PO BID-TID PRN 11/03/21 [History Confirmed 11/03/21] loratadine 10 mg tablet 10 mg PO DAILY 11/03/21 [History Confirmed 11/03/21] Is last menstrual period known: No Post menopausal: Yes Patient : No : No PFSH Medical History Alcohol use Allergic rhinitis Back pain Bilateral hydronephrosis Blackout Chronic constipation CKD (chronic kidney disease) stage 4, GFR 15-29 ml/min Complicated urinary tract infection Constipation Declining functional status Dental bridge present Depression Difficulty swallowing History of echocardiogram History of edema History of wrist fracture Hyperlipidemia Hypertension Indwelling urethral catheter present Insomnia Iron deficiency anemia Loss of hearing Low iron Migraine headache Migraine headache MRSA colonization Multiple sclerosis Multiple sclerosis Muscle spasm Neurogenic bladder Non-smoker OAB (overactive bladder) Port-A-Cath in place Right hemiparesis Transient ischemic attack Uses wheelchair Vitamin D deficiency Surgical History History of cystoscopy History of esophagogastroduodenoscopy (EGD) History of tonsillectomy and adenoidectomy History of tympanoplasty Hx of hand surgery Hx of shoulder surgery Social History (Updated 11/03/21 @ 15:12 by Criss Rodarte) Smoking Status: Never smoker alcohol intake: never substance use type: does not use what type of physical activity do you participate in: none seatbelt use: always do you feel safe at home: Yes 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 She has a history of pelvic pain and has a suprapubic cath present that is managed by Dr Parada. She denies any vaginal bleeding or discharge, no itching or burning. She has not had gynecologic exams in many years. She denies any history of abnormal paps in the past. She had an ultrasound that showed a thickened lining hyperechoic with a submucosal fibroid present. she is having surgery by dr parada so would like evlauation at the same time by me. Female Reproductive History Menopausal Symptoms: No night sweats ROS Const Constitutional: Reports system reviewed and no additional complaints, except as documented, fatigue and poor appetite; Denies fever(s) or night sweats ENT ENT: Reports system reviewed and no additional complaints, except as documented Cardio Card: Denies chest pain Resp Resp: Denies cough or dyspnea GI GI: Reports as per HPI and constipation; Denies abdominal pain, nausea or vomiting : Denies nipple discharge, urinary frequency, urinary incontinence, urinary hesitancy, urinary urgency, vaginal discharge, vaginal dryness, vaginal odor or vaginal pruritus Musc Musc: Reports arthralgias and muscle weakness; Denies back pain Skin Skin/Breast: Denies alopecia, change in hair, dry skin, breast mass, breast pain, breast skin changes or nipple discharge Neuro Neuro: Reports system reviewed and no additional complaints, except as documented Psych Psych: Reports system reviewed and no additional complaints, except as documented Endo Endo: Denies cold intolerance, excessive sweating, heat intolerance or polydipsia Kannan/Lymph Hematologic/Lymphatic: Denies easy bleeding, Denies easy bruising and Denies lymphadenopathy Exam Const General: cooperative, healthy appearing, comfortable, no acute distress and well developed Orientation: alert HENMT Head: normal to inspection and normocephalic Ears: hearing grossly normal bilaterally and external ears normal Nose: external nose normal and nares normal Face and sinus: normal facial exam Neck Neck: normal visual inspection and no lymphadenopathy Thyroid: thyroid normal Chest Chest palpation & inspection: normal inspection of the chest Resp Effort & Inspection: normal respiratory effort Auscultation: clear to auscultation bilaterally Cardio Rate: regular rate Rhythm: regular rhythm Heart Sounds: S1 normal and S2 normal GI Inspection: normal to inspection and non-distended Palpation: soft and no hepatosplenomegaly Musc Other: gross motor intact no deficits, full bilateral strength Skin General: no rashes or lesions noted Neuro General: patient alert, patient awake and moves all extremities Motor: movement abnormality noted (MS with contractures, right hand limited), muscle tone abnormal, strength abnormal and other (legs move with weakness and difficulty. in physical therapy) Extrem General: abnormal to inspection (limited movement, contractures present) and other (braces on legs, some mild edema) Psych Appearance: grossly normal Mental Status: mental status grossly normal Affect: normal affect Speech and Movement: speech and movement abnormal Coding Level of Care Code Off vis,new,level 4 Diagnoses Endometrial thickening on ultrasound R93.89 Assessment and Plan Assessment and Plan (1) Endometrial thickening on ultrasound: Status: Acute Comment: 4 mm hyperechoic with posterior fibroid, cytotec prep. MS contractures present, Siva Plan - Dr. Kiki Friend MD: After discussing the patient's diagnosis and treatment plan options, patient wishes to proceed with surgical management. I have discussed with the patient the risks, benefits, and alternatives of the procedure which include but are not limited to risks of anesthesia, bleeding, infection, possible damage to bowel, bladder, or surrounding vasculature which could lead to additional surgery to evaluate any complications. Patient agrees to procedure and wishes to proceed. ACOG/uptodate references given for additional information regarding procedure. UPDATE- I have seen the patient and performed any clinically relevant updates to the history and physical exam. Kiki Friend MD
--- NOTE | 2021-11-18 08:49 | OP.PCM_ITS ---
Problems Associated Problem List Diagnoses (1) Endometrial thickening on ultrasound: Report of Operation Pre-Operative Diagnosis: see problem list plus uterine perforation Post-Operative Diagnosis: same Surgery/Procedure Performed:: Dilation hysteroscopy polypectomy diagnostic laparoscopy plastic printer: None Type of Anesthesia: General Special Medications: none Specimen's removed: polyps Drains: none Estimated Blood Loss (mL): minimal Fluids Replaced: crystalloid Description of Procedure: Patient was placed under general anesthesia. Pap smear was performed. She was prepped and draped in the normal sterile fashion in the dorsal lithotomy position. Dr. Parada performed her portion of the procedure. Cervix was grasped with a single-tooth tenaculum and uterine sound entered into the uterus and sounded to 10 cm which was noted to be larger than previously expected on ultrasound therefore uterine perforation was suspected. A 3 mm hysteroscope was used to evaluate the uterus and to fundal polyps were seen which were small and an atrophic lining was noted. A small area of perforation was seen near the polyps and the hysteroscope was enlarged to 5 mm and both polyps were removed with polyp forceps under direct visualization in the area of perforation was noted to be enlarging due to the fluid distention needed to provide operative exposure for the polypectomy. Curettage was not performed due to the concern for possible injury because of blind curettage. Some bleeding was noted around the area of perforation and therefore FloSeal was placed intrauterine for this. Decision was made to perform diagnostic laparosco py to confirm no additional uterine bleeding was intra-abdominal that would need attention or intervention. Abdomen was prepped and draped. Infraumbilical incision was made with a scalpel and Veress needle entered into the abdomen and the abdomen insufflated with CO2 gas to 15 mmHg of pressure and 5 mm port was placed under direct visualization. Uterus well visualized and a right fundal perforation noted that was hemostatic without complication and fluid was noted in the cul-de-sac from the hysteroscopy. No injuries were noted to the surrounding area or tissues or organs. No other significant abnormalities were seen within the intra-abdominal cavity upon limited inspection. Abdomen was desufflated of gas and port site closed. Dr. Parada then resumed another portion of her procedure all instruments were removed from the vagina. Patient tolerated the procedure well. Grafts/Implants Used: none Complications none Admit VTE Documentation VTE Present on Admission: No VTE Mechan Device Prophylaxis: SCD's Multi Select Codes Urinary/Genital Urinary/Genital CPT Codes: 36957 Hysteroscopy,EMC, Polypectomy and Other Procedure See Report ([id number])
[2021-11-18] MEDS: Bacitracin 500 UNITS/GM PACKET (08:58)
--- NOTE | 2021-11-18 09:07 | PCM.DC ---
Discharge Instructions Diet Discharge Diet: No restrictions Activity Discharge Activity: Return to Normal Activity Dressing / Incision Call your doctor if your incision/area has: Continuous Slow Oozing, Sudden Increased Bleeding, Increased Pain/ Swelling, Increased Redness, Foul Smelling Discharge and Swelling at the incision site Call your doctor if you observe: Fever of 101 or Higher, Inability to urinate and Inability to have a bowel movement Cleanse incision/area with: Keep Dressing Clean & Dry Catheter: Maldonado to large bag Follow Up Care Please Follow Up With: Kiki Friend MD When: and call office for appt. Test Results: Test results from this visit will be discussed in further detail at your follow-up appointment, if applicable. Discharge Plan Admission Attending Provider: Kiki Friend Primary Care Provider: Alexandria Carranza Consulting Providers: Jaleesa Parada Discharge Orders/Prescriptions Prescriptions: New hydrocodone-acetaminophen [hydrocodone-acetaminophen] 1 TABLET tablet 1 tab PO Q4H PRN PRN (Reason: Pain) 3 Days Qty: 10 RF: 0 Continued loratadine [Claritin] 10 mg tablet 10 mg PO DAILY RF: 0 glycopyrrolate 2 mg tablet 2 mg PO BID-TID PRN (Reason: SUPPLEMENT) RF: 0 misoprostol [Cytotec] 200 mcg tablet 200 mcg PO .COMPLEX Qty: 2 RF: 1 bisacodyl 10 MG suppository 10 mg RECTAL DAILY RF: 0 acetaminophen 500 MG tablet 1,000 mg PO Q6H PRN PRN (Reason: Pain) RF: 0 lactulose 20 GM/30 ML solution 60 gm PO QHS RF: 0 polysaccharide iron complex 150 MG capsule 150 mg PO DAILY RF: 0 baclofen 20 MG tablet 20 mg PO TID RF: 0 melatonin 5 MG capsule 10 mg PO QHS RF: 0 magnesium oxide 400 MG tablet 400 mg PO QHS RF: 0 mirtazapine 15 MG tablet 35 mg PO QHS RF: 0 Cinacalcet Hcl 30 MG tablet 30 mg PO/SL QODAY RF: 0 aavalhvscht-S7-Qxhzcumns serr 1 EACH tablet 1 tab PO DAILY RF: 0 vitamin B complex-folic acid 0.4 MG tablet 1 tab PO DAILY RF: 0 sipyy-gx-8-fea-smi-mzqbabh-ast 1 EACH capsule 1 ea PO DAILY RF: 0 methylphenidate HCl [Ritalin] 10 mg Tablet 10 mg PO DAILY RF: 0 donepezil 10 mg Tablet 10 mg PO DAILY RF: 0 temazepam 30 mg Capsule 20 mg PO QHS RF: 0 multivitamin Capsule 1 cap PO DAILY RF: 0 bktmsmx-lvva-ybzcm-oreg-capryl 100 mg-150 mg- 50 mg-150 mg Capsule 2 cap PO BID RF: 0 cholecalciferol (vitamin D3) 1,250 mcg (50,000 unit) capsule 50,000 unit PO .QMON RF: 0 cephalexin 500 MG capsule 500 mg PO Q12 Qty: 14 RF: 0 Referrals / Follow Up: Alexandria Carranza MD [Primary Care Provider] - Disposition Disposition (needs filled in before D/C Order can be placed): Home, Self Care
--- NOTE | 2021-11-18 10:06 | SUR.PHASEI ---
this nurse updated legal administrative secretary to update patient . patient resting comfortably will cont to monitor.
--- NOTE | 2021-11-18 10:45 | DCINST_ITS ---
Discharge Instructions Diet Discharge Diet: No restrictions Activity Discharge Activity: Return to Normal Activity, May Not Drive (for 2 weeks or while taking narcotic pain meds.), May Shower and May Take a Tub Bath (in 7 days) May resume sexual activity in: 1 week Weight Bearing Status: Full weight bearing Dressing / Incision Call your doctor if your incision/area has: Continuous Slow Oozing, Sudden Increased Bleeding, Increased Pain/ Swelling, Increased Redness, Foul Smelling Discharge and Swelling at the incision site Call your doctor if you observe: Fever of 101 or Higher, Inability to urinate and Inability to have a bowel movement Suture Line Care: Avoid Pulling/Pushing and Avoid Pinching/Bending Remove Dressing in: 1 week (if present) Cleanse incision/area with: Keep Dressing Clean & Dry Catheter: Maldonado to large bag Follow Up Care Please Follow Up With: Kiki Friend MD When: Call to make an appointment with your doctor for a fu/incision check in 1- 2 weeks. Test Results: Test results from this visit will be discussed in further detail at your follow-up appointment, if applicable. Discharge Plan Admission Attending Provider: Kiki Friend Primary Care Provider: Alexandria Carranza Consulting Providers: Jaleesa Parada Discharge Orders/Prescriptions Prescriptions: New hydrocodone-acetaminophen [hydrocodone-acetaminophen] 1 TABLET tablet 1 tab PO Q4H PRN PRN (Reason: Pain) 3 Days Qty: 10 RF: 0 Continued loratadine [Claritin] 10 mg tablet 10 mg PO DAILY RF: 0 glycopyrrolate 2 mg tablet 2 mg PO BID-TID PRN (Reason: SUPPLEMENT) RF: 0 misoprostol [Cytotec] 200 mcg tablet 200 mcg PO .COMPLEX Qty: 2 RF: 1 bisacodyl 10 MG suppository 10 mg RECTAL DAILY RF: 0 acetaminophen 500 MG tablet 1,000 mg PO Q6H PRN PRN (Reason: Pain) RF: 0 lactulose 20 GM/30 ML solution 60 gm PO QHS RF: 0 polysaccharide iron complex 150 MG capsule 150 mg PO DAILY RF: 0 baclofen 20 MG tablet 20 mg PO TID RF: 0 melatonin 5 MG capsule 10 mg PO QHS RF: 0 magnesium oxide 400 MG tablet 400 mg PO QHS RF: 0 mirtazapine 15 MG tablet 35 mg PO QHS RF: 0 Cinacalcet Hcl 30 MG tablet 30 mg PO/SL QODAY RF: 0 uuovdjromqk-G2-Arhneojwk serr 1 EACH tablet 1 tab PO DAILY RF: 0 vitamin B complex-folic acid 0.4 MG tablet 1 tab PO DAILY RF: 0 sgita-ik-0-itz-bvg-ulhccyd-ast 1 EACH capsule 1 ea PO DAILY RF: 0 methylphenidate HCl [Ritalin] 10 mg Tablet 10 mg PO DAILY RF: 0 donepezil 10 mg Tablet 10 mg PO DAILY RF: 0 temazepam 30 mg Capsule 20 mg PO QHS RF: 0 multivitamin Capsule 1 cap PO DAILY RF: 0 ywmnylj-huaz-wpdbi-oreg-capryl 100 mg-150 mg- 50 mg-150 mg Capsule 2 cap PO BID RF: 0 cholecalciferol (vitamin D3) 1,250 mcg (50,000 unit) capsule 50,000 unit PO .QMON RF: 0 cephalexin 500 MG capsule 500 mg PO Q12 Qty: 14 RF: 0 Referrals / Follow Up: Alexandria Carranza MD [Primary Care Provider] - Disposition Disposition (needs filled in before D/C Order can be placed): Home, Self Care
[2021-11-21 16:03] LABS: HPV Reflexed? NOT INDICATED
== END 2021-11-18 23:59 | disposition home or self-care (01) ==
LOC: SDC 05:53 → AC 05:53
PROVIDERS: Urology; PCP Internal Medicine; Referring Provider Obstetrics & Gynecology; Visit Provider Obstetrics & Gynecology
PROC: 0UB98ZZ Excision of Uterus, Via Natural or Artificial Opening Endoscopic (ICD-10-PCS; CPT 58558; principal; 2021-11-18 07:15)
PROC: 0TBB8ZX Excision of Bladder, Via Natural or Artificial Opening Endoscopic, Diagnostic (ICD-10-PCS; CPT 10060; 2021-11-18 07:15)
PROC: 0T7D8ZZ Dilation of Urethra, Via Natural or Artificial Opening Endoscopic (ICD-10-PCS; CPT 52281; 2021-11-18 07:15)
DX: N31.9 Neuromuscular dysfunction of bladder, unspecified (principal); T83.518A Infection and inflammatory reaction due to other urinary catheter, initial encounter; G81.91 Hemiplegia, unspecified affecting right dominant side; G35 Multiple sclerosis; N18.4 Chronic kidney disease, stage 4 (severe); D25.0 Submucous leiomyoma of uterus; Z12.4 Encounter for screening for malignant neoplasm of cervix; S37.69XA Other injury of uterus, initial encounter; Y69 Unspecified misadventure during surgical and medical care; Y92.234 Operating room of hospital as the place of occurrence of the external cause; N32.81 Overactive bladder; I12.9 Hypertensive chronic kidney disease with stage 1 through stage 4 chronic kidney disease, or unspecified chronic kidney disease; N39.0 Urinary tract infection, site not specified; D50.9 Iron deficiency anemia, unspecified; E78.5 Hyperlipidemia, unspecified; F32.A Depression, unspecified; Z79.899 Other long term (current) drug therapy
CPT/HCPCS: 58558; 10060; 51705; 00952; 87070; 87205; 88175; 88305; 93005; J7120; A4216; G0145; J2405

== ENCOUNTER 2021-11-22 16:21 | Emergency (ER) | payer MEDICARE, SELFPAY ==
[2021-11-22 16:23] VITALS: BP 112/100; PULSE 88; RESP 18; TEMP 36.6; O2SAT 94
--- NOTE | 2021-11-22 16:36 | ED.RN ---
REPORTS DECLINE IN HEALTH; TOTAL CARE FOR ADL'S THIS MORNING. ALSO REPORTS UNABLE TO TAKE PILLS LIKE NORMAL, HOLDING MEDICATION IN MOUTH. HAD PREVIOUS LAPAROSCOPY AND POLYPS REMOVED.
--- NOTE | 2021-11-22 16:52 | ED.VIS.CHEST ---
HPI History of Present Illness Chief Complaint: Chest Pain Informant: spouse/S.O. Onset/Context/Timing Onset: Today Activity at onset: sudden Timing: Continuous Worsened By: Nothing Relieved By: Nothing Associated Symptoms: Negative for Nausea, Vomiting, Diaphoresis, Dyspnea, Cough and Fever Narrative Narrative: Patient presents with chest pain that began today. states the patient was telling him that she was having pain in her chest today. Patient is nonverbal due to multiple sclerosis. also states that patient has been drooling more recently. states patient had a recent cystoscopy and laparoscopy this week. denies any fevers or chills. denies any shortness of breath. denies any nausea or vomiting. denies any diaphoresis. [facility] Medical History Alcohol use Allergic rhinitis Back pain Bilateral hydronephrosis Blackout Chronic constipation CKD (chronic kidney disease) stage 4, GFR 15-29 ml/min Complicated urinary tract infection Constipation Declining functional status Dental bridge present Depression Difficulty swallowing Endometrial thickening on ultrasound History of echocardiogram History of edema History of wrist fracture Hyperlipidemia Hypertension Indwelling urethral catheter present Insomnia Iron deficiency anemia Loss of hearing Low iron Migraine headache Migraine headache MRSA colonization Multiple sclerosis Multiple sclerosis Muscle spasm Neurogenic bladder Non-smoker OAB (overactive bladder) Pelvic pain Port-A-Cath in place Right hemiparesis Transient ischemic attack Urinary tract infection Uses wheelchair Vitamin D deficiency Wears glasses Home Medications bisacodyl 10 mg RECTAL DAILY 07/01/18 [History Last Taken 02/13/19] acetaminophen 1,000 mg PO Q6H PRN PRN 02/15/19 [History Last Taken 03/25/19] lactulose 60 gm PO QHS 03/25/19 [History Last Taken Unknown] baclofen 20 mg PO TID 05/23/19 [History Last Taken 11/18/21 04:00] magnesium oxide 300 mg PO QHS 05/23/19 [History Last Taken Unknown] melatonin 10 mg PO QHS 05/23/19 [History Last Taken Unknown] polysaccharide iron complex 150 mg PO DAILY 05/23/19 [History Last Taken Unknown] Cinacalcet Hcl 30 mg PO/SL QODAY 11/15/20 [History Last Taken Unknown] uedwrqabfcc-Z1-Dlhepvdal serr 1 tab PO DAILY 11/15/20 [History Last Taken Unknown] oortp-hk-3-gdi-tkp-wriqpal-ast 1 ea PO DAILY 11/15/20 [History Last Taken Unknown] mirtazapine 35 mg PO QHS 11/15/20 [History Last Taken Unknown] vitamin B complex-folic acid 1 tab PO DAILY 11/15/20 [History Last Taken Unknown] cholecalciferol (vitamin D3) 50,000 unit PO .QMON 08/15/21 [History Last Taken Unknown] donepezil 10 mg PO QHS 08/15/21 [History Last Taken Unknown] methylphenidate HCl [Ritalin] 10 mg PO DAILY 08/15/21 [History Last Taken 11/18/21 04:00] multivitamin 1 cap PO DAILY 08/15/21 [History Last Taken Unknown] temazepam 20 mg PO QHS 08/15/21 [History Last Taken Unknown] vnvoyqc-qpez-zfzbj-oreg-capryl 2 cap PO BID 08/15/21 [History Last Taken Unknown] glycopyrrolate 2 mg tablet 2 mg PO BID-TID PRN 11/03/21 [History Last Taken Unknown] loratadine 10 mg tablet 10 mg PO DAILY 11/03/21 [History Last Taken Unknown] misoprostol 200 mcg tablet 200 mcg PO .COMPLEX #2 tab 11/03/21 [Rx Last Taken 11/18/21 04:00] hydrocodone-acetaminophen 1 tab PO Q4H PRN PRN 3 Days #10 tablet 11/18/21 [Rx Last Taken Unknown] cephalexin 500 mg PO Q12H #200 ml 11/22/21 [Rx Last Taken Unknown] Allergy/AdvReac Type Severity Reaction Status Date / Time ciprofloxacin [From Cipro] AdvReac hypotension Verified 11/22/21 16:28 dextrose 5 % in water AdvReac Other Verified 11/22/21 16:28 [From Zyvox] doxycycline AdvReac hypotension Verified 11/22/21 16:28 levofloxacin [From Levaquin] AdvReac hypotension Verified 11/22/21 16:28 linezolid [From Zyvox] AdvReac Other Verified 11/22/21 16:28 morphine AdvReac hallucinati Verified 11/22/21 16:28 ons piperacillin [From Zosyn] AdvReac hypotension Verified 11/22/21 16:28 sulfamethoxazole AdvReac hypotension Verified 11/22/21 16:28 [From Bactrim] tazobactam [From Zosyn] AdvReac hypotension Verified 11/22/21 16:28 trimethoprim [From Bactrim] AdvReac hypotension Verified 11/22/21 16:28 vancomycin AdvReac developed Verified 11/22/21 16:28 toxic levels Surgical History H/O cervical polypectomy H/O dilation and curettage History of cystoscopy History of esophagogastroduodenoscopy (EGD) History of tonsillectomy and adenoidectomy History of tympanoplasty Hx of hand surgery Hx of shoulder surgery S/P laparoscopic procedure Social History Smoking Status: Never smoker alcohol intake: never substance use type: does not use what type of physical activity do you participate in: none seatbelt use: always do you feel safe at home: Yes 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 Constitutional Constitutional ED: Denies chills or fever(s) Eyes Eyes: Denies blurry vision or change in vision ENT ENT ED: Denies rhinorrhea or sore throat Cardiovascular Cardiovascular: Reports chest pain; Denies palpitations Respiratory/Chest Respiratory/Chest: Denies cough or dyspnea Gastrointestinal Gastrointestinal: Reports abdominal pain; Denies nausea or vomiting Genitourinary Genitourinary ED: Reports hematuria; Denies dysuria Musculoskeletal Musculoskeletal: Denies back pain or neck pain Integumentary Denies abscess or rash Neurologic Neurologic: Denies headache(s) or weakness Allergic/Immunologic Allergic/Immunologic ED: Denies mouth swelling or urticaria EXAM Physical Exam Const Vital Signs: 11/22/21 16:23 11/22/21 16:30 11/22/21 17:07 Temperature 97.8 F Temperature Source Temporal Pulse Rate 88 Respiratory Rate 18 Respiratory Effort Normal Non-Labored Blood Pressure 112/100 H Blood Pressure Mean 104 Pulse Ox 94 95 Oxygen Delivery Method Room Air Room Air 11/22/21 18:13 11/22/21 19:21 Temperature Temperature Source Pulse Rate 85 84 Respiratory Rate 17 18 Respiratory Effort Blood Pressure 134/88 H 127/86 H Blood Pressure Mean 103 99 Pulse Ox 95 93 Oxygen Delivery Method Room Air Positive well nourished and well developed General Appearance ED: well developed and NAD HEENT Reports moist mucous membranes Neck supple and no JVD Resp normal respiratory effort Auscultation: diminished lung sounds diffuse Cardio regular rate and regular rhythm GI soft to palpation and non-distended Palpation: tender LLQ, RLQ and suprapubic Extremity General Extremety ED: Negative for tenderness Neuro CN's II-XII intact bilaterally Sensorium / Orientation: awake and alert Heart Score History: Slightly/Non-Suspicious ECG: Normal Age: >/= 65 years Risk Factors: 1 or 2 Risk Factors Troponin: </= Normal Limit Score: 3 MDM MDM MDM Narrative Medical decision making narrative: Patient is given aspirin here. EKG was obtained. On my interpretation, it showed a normal sinus rhythm with a rate of 92. ID interval, QRS interval, and QTc intervals were all normal. [place] was normal. There are no acute ST or T wave changes. CBC shows a mild leukocytosis of 13.9. Hemoglobin was 15.2. Basic metabolic profile was obtained. BUN was 37 and creatinine is 1.72. This is only slightly increased from previous results. Initial high-sensitivity troponin was obtained and was 10. 2-hour repeat high-sensitivity troponin was obtained and was 11. CTA of the chest was obtained. There is no acute cardiopulmonary process noted. There is no evidence of pulmonary embolism. There is left subclavian vein stenosis. This was interpreted by the radiologist and reviewed by myself. Patient had no upper extremity edema. Urinalysis shows a leukocyte esterase of 500 with positive nitrites and 25-50 white blood cells. Occult blood was 250 with 5-10 red blood cells. There is 1+ bacteria. Urine culture was ordered. reports the patient did well on cefazolin and in the past. Patient was given a dose of Keflex here. Patient was given a prescription for Keflex. Patient and want to go home. Patient was instructed to follow-up with her primary care physician in 3 to 5 days. Patient and understood and were agreeable with the plan. All questions were answered. Lab Data Attestation: I reviewed the patient's lab results. Labs: Laboratory Results - last 24 hr 11/22/21 11/22/21 11/22/21 17:00 17:00 18:55 WBC 13.9 H RBC 5.04 Hgb 15.2 H Hct 47.0 MCV 93.3 MCH 30.2 MCHC 32.3 RDW Std Deviation 50.7 H RDW Coeff of [place] 14.7 H Plt Count 201 MPV 10.2 Immature Gran % (Auto) 0.300 Neut % (Auto) 69.3 Lymph % (Auto) 18.4 L [place] % (Auto) 8.1 Eos % (Auto) 3.4 Baso % (Auto) 0.5 Absolute Neuts (auto) 9.6 H Absolute Lymphs (auto) 2.56 Nucleated RBC % 0 Sodium 140 Potassium 4.0 Chloride 104 Carbon Dioxide 30.0 Anion Gap 6 BUN 37 H Creatinine 1.72 H Estim Creat Clear Calc 32.10 Est GFR (MDRD) Af Amer 38 L Est GFR (MDRD) Non-Af 32 L BUN/Creatinine Ratio 21.5 H Glucose 95 Calcium 8.7 Troponin I High Sens 10 11 Urine Color Urine Clarity Urine pH Ur Specific [place] Urine Protein Urine Glucose (UA) Urine Ketones Urine Occult Blood Urine Nitrite Urine Bilirubin Urine Urobilinogen Ur Leukocyte Esterase Urine RBC Urine WBC Ur Squamous Epith Cells Urine Bacteria Urine Mucus 11/22/21 19:15 WBC RBC Hgb Hct MCV MCH MCHC RDW Std Deviation RDW Coeff of [place] Plt Count MPV Immature Gran % (Auto) Neut % (Auto) Lymph % (Auto) [place] % (Auto) Eos % (Auto) Baso % (Auto) Absolute Neuts (auto) Absolute Lymphs (auto) Nucleated RBC % Sodium Potassium Chloride Carbon Dioxide Anion Gap BUN Creatinine Estim Creat Clear Calc Est GFR (MDRD) Af Amer Est GFR (MDRD) Non-Af BUN/Creatinine Ratio Glucose Calcium Troponin I High Sens Urine Color Yellow Urine Clarity Clear Urine pH 6.5 Ur Specific [place] 1.010 Urine Protein 30 H Urine Glucose (UA) Normal Urine Ketones Negative Urine Occult Blood 250 H Urine Nitrite Positive H Urine Bilirubin Negative Urine Urobilinogen Normal Ur Leukocyte Esterase 500 H Urine RBC 5-10 SEEN Urine WBC 25-50 SEEN Ur Squamous Epith Cells 0 SEEN Urine Bacteria 1+ Urine Mucus 0 SEEN Radiography Diagnostic Testing: Clinical Impression(s) from Imaging Studies Chest CTA 11/22/21 16:58 IMPRESSION: 1. No central or segmental pulmonary embolism. 2. Left central subclavian vein stenosis. Recommend correlating with clinical symptoms (left arm swelling). 3. Stable chronic changes, as above. Electronically Signed: Juancarlos Whitman MD ([place]) at 18:39 EST , EKG Initial EKG: Attestation: I personally reviewed and interpreted this EKG as follows: Interpretation: Sinus Rhythm (92) and No Acute Injury Pattern Discharge Plan Triage Chief Complaint: Chest Pain ED Provider: Mohit Eller Dx/Rx/DC Orders Clinical Impression: Urinary tract infection, Chest pain of uncertain etiology Instructions: ED Chest Pain, Noncardiac, ED CYSTITIS Female Adult Prescriptions: New cephalexin 250 mg/5 mL suspension for reconstitution 500 mg PO Q12H Qty: 200 RF: 0 Discontinued cephalexin 500 MG capsule 500 mg PO Q12 Qty: 14 RF: 0 No Action loratadine [Claritin] 10 mg tablet 10 mg PO DAILY RF: 0 glycopyrrolate 2 mg tablet 2 mg PO BID-TID PRN (Reason: SUPPLEMENT) RF: 0 misoprostol [Cytotec] 200 mcg tablet 200 mcg PO .COMPLEX Qty: 2 RF: 1 bisacodyl 10 MG suppository 10 mg RECTAL DAILY RF: 0 acetaminophen 500 MG tablet 1,000 mg PO Q6H PRN PRN (Reason: Pain) RF: 0 lactulose 20 GM/30 ML solution 60 gm PO QHS RF: 0 polysaccharide iron complex 150 MG capsule 150 mg PO DAILY RF: 0 baclofen 20 MG tablet 20 mg PO TID RF: 0 melatonin 5 MG capsule 10 mg PO QHS RF: 0 magnesium oxide 400 MG tablet 300 mg PO QHS RF: 0 mirtazapine 15 MG tablet 35 mg PO QHS RF: 0 Cinacalcet Hcl 30 MG tablet 30 mg PO/SL QODAY RF: 0 vqfugctwoly-W9-Ptmmmmqds serr 1 EACH tablet 1 tab PO DAILY RF: 0 vitamin B complex-folic acid 0.4 MG tablet 1 tab PO DAILY RF: 0 btgat-vq-5-mcl-dch-ujozrtw-ast 1 EACH capsule 1 ea PO DAILY RF: 0 methylphenidate HCl [Ritalin] 10 mg Tablet 10 mg PO DAILY RF: 0 donepezil 10 mg Tablet 10 mg PO QHS RF: 0 temazepam 30 mg Capsule 20 mg PO QHS RF: 0 multivitamin Capsule 1 cap PO DAILY RF: 0 ocrnfns-njrl-hktdz-oreg-capryl 100 mg-150 mg- 50 mg-150 mg Capsule 2 cap PO BID RF: 0 cholecalciferol (vitamin D3) 1,250 mcg (50,000 unit) capsule 50,000 unit PO .QMON RF: 0 hydrocodone-acetaminophen [hydrocodone-acetaminophen] 1 TABLET tablet 1 tab PO Q4H PRN PRN (Reason: Pain) 3 Days Qty: 10 RF: 0 Primary Care Provider: Alexandria Carranza Referrals: Alexandria Carranza MD [Primary Care Provider] - 3-5 Days Disposition Disposition: Home, Self Care
--- NOTE | 2021-11-22 16:58 | EKG12_ITS ---
Test Reason : Blood Pressure : / mmHG Vent. Rate : 092 BPM Atrial Rate : 092 BPM P-R Int : 120 ms QRS Dur : 088 ms QT Int : 380 ms P-R-T Axes : 023 056 019 degrees QTc Int : 469 ms Normal sinus rhythm Normal ECG Confirmed by VITOR RAMÍREZ, JAZMIN ([id number]), story editor OZZIE MG ([id number]) on 11/27/2021 8:36:40 AM Referred By: Kiki Friend Confirmed By:JAZMIN ADLER MD
--- NOTE | 2021-11-22 16:58 | CT_ITS ---
STUDY: CTA CHEST REASON FOR EXAM: Female, 66 years old. Chest pain started today RADIATION DOSAGE (If Supplied By Facility): CTDIvol = ( 12.51 ) mGy, DLP = ( 385.26 ) mGycm TECHNIQUE: The examination was performed with the intravenous administration of IV 100mL Isovue-370. Post-processing of the angiographic images was performed, with multiplanar reformation and 3D reconstruction. Individualized dose optimization techniques were used for this CT. COMPARISON: 03/26/2019 FINDINGS: Normal enhancement of the main pulmonary artery and right and left pulmonary arteries. Normal enhancement of the bilateral peripheral pulmonary arteries. There is no demonstrated pulmonary embolism. There is atherosclerotic calcification of the aortic arch with tortuosity. There is no demonstrated aortic dissection. Normal heart and pericardium. Coronary artery atherosclerosis. Normal mediastinum. Normal hilar regions. Right hemidiaphragm is elevated with atelectasis in the right lung base. No airspace consolidation. Atelectasis in the left lung base. Normal pleura. Normal chest wall structures. Left chest port present. There is narrowing of the central right brachiocephalic vein (between left clavicle head and origin of right brachiocephalic artery) with left chest wall collaterals. L1 compression fracture is stable since prior CT. Moderate fecal retention of the colon. CT/CTA Chest W/WO Contrast IMPRESSION: 1. No central or segmental pulmonary embolism. 2. Left central subclavian vein stenosis. Recommend correlating with clinical symptoms (left arm swelling). 3. Stable chronic changes, as above. Electronically Signed: Juancarlos Whitman MD ([place]) at 18:39 EST ,
--- NOTE | 2021-11-22 17:03 | ED.RN ---
TWO ATTEMPTS MADE, BY TWO DIFFERENT RN'S, TO ACCESS POWER PORT WITH NO SUCCESS.
[2021-11-22 17:07] VITALS: O2SAT 95
[2021-11-22] MEDS: Aspirin 81 MG TAB.CHEW 324 MG PO (17:09)
[2021-11-22 17:18] LABS: Absolute Lymphocyte Count 2.56 X10^3/uL (0.83-4.51); Absolute Neutrophil Count 9.6 X10^3/uL (2.0-7.7); Basophil# 0.07 X10^3/uL; Basophil% 0.5 % (0-1); Eosinophil# 0.47 X10^3/uL; Eosinophils% 3.4 % (0-5); Hemoglobin 15.2 g/dL (12.0-15.0); Lymphocyte # 2.56 X10^3/ul (0.83-4.51); Lymphocyte % 18.4 % (19-41); Mean Corp Hgb Conc 32.3 g/dL (32-36); Mean Corpuscular Hgb 30.2 pg (27.0-32.0); Mean Corpuscular Volume 93.3 fL (81-99); Mean Platelet Vol. 10.2 fl (6.2-12.0); Monocyte# 1.12 X10^3/uL; Monocyte% 8.1 % (0-10); NRBC Flagged by Analyzer 0 % (0-5); Neutrophil # 9.64 X10^3/uL (2.7-7.7); Neutrophil % 69.3 % (47-70); Platelet Count 201 K/mm3 (150-450); RBC Distribution Width CV 14.7 % (11.6-14.6); RBC Distribution Width SD 50.7 fl (35.1-43.9); Red Blood Count 5.04 M/mm3 (4.2-5.4); White Blood Count 13.9 K/mm3 (4.4-11.0)
[2021-11-22 17:43] LABS: Anion Gap 6 (5-15); BUN 37 mg/dL (7-18); BUN/Creat Ratio 21.5 RATIO (10-20); Calcium,Total 8.7 mg/dL (8.5-10.1); Chloride 104 mmol/L (98-107); Creatinine, Serum 1.72 mg/dL (0.55-1.02); EST Glomerular Filtration Rate 32 mL/min (>60); Est Glom Filt Rate - Afr Amer 38 mL/min (>60); Glucose 95 mg/dL (74-106); Sodium Level 140 mmol/L (136-145); Troponin-I HS 10 pg/mL (3.0-54.0)
[2021-11-22 18:13] VITALS: BP 134/88; PULSE 85; RESP 17; O2SAT 95
[2021-11-22 19:17] LABS: Mucous, Urine 0 SEEN /hpf (<or=2+); Squamous Epithelial Cells - UA 0 SEEN /hpf (5-10)
[2021-11-22 19:21] VITALS: BP 127/86; PULSE 84; RESP 18; O2SAT 93
[2021-11-22 19:21] LABS: Color, Urine Yellow (Yellow); Glucose, Dipstick Normal (Normal); Ketone-Dipstick Negative (Negative); Leukocyte Esterase-Dipstick 500 /ul (Negative); Nitrite-Dipstick Positive (Negative); Occult Blood-Urine 250 /ul (Negative); Protein-Dipstick 30 mg/dl (Negative); Urine Bilirubin Dipstick Negative (Negative); Urine Clarity Clear (Clear); Urine Urobilinogen Normal (Normal); Urine pH 6.5 (5.0 - 8.0)
[2021-11-22 19:28] LABS: Troponin-I HS 11 pg/mL (3.0-54.0)
[2021-11-22 19:32] LABS: Bacteria 1+ /hpf (None Seen); Red Blood Cells-Urine 5-10 SEEN /hpf (0-5); White Blood Cells 25-50 SEEN /hpf (0-5)
[2021-11-22] MEDS: Cephalexin Suspension 250 MG/5 ML PO.SYRINGE 500 MG PO (20:19)
[2021-11-22 20:28] VITALS: BP 125/84; PULSE 82; RESP 18; O2SAT 93
== END 2021-11-22 20:29 | disposition home or self-care (01) ==
PROVIDERS: Emergency Provider Emergency Medicine; PCP Internal Medicine; Visit Provider Emergency Medicine
DX: N39.0 Urinary tract infection, site not specified (principal); G35 Multiple sclerosis; N18.4 Chronic kidney disease, stage 4 (severe); R07.9 Chest pain, unspecified; I12.9 Hypertensive chronic kidney disease with stage 1 through stage 4 chronic kidney disease, or unspecified chronic kidney disease; D72.829 Elevated white blood cell count, unspecified; E78.5 Hyperlipidemia, unspecified; F32.A Depression, unspecified; Z79.899 Other long term (current) drug therapy; Z86.73 Personal history of transient ischemic attack (TIA), and cerebral infarction without residual deficits
CPT/HCPCS: 99285; 71275; 80048; 81001; 84484; 85025; 87077; 87086; 87088; 87186; 93005; Q9967; A4216

== ENCOUNTER 2021-11-24 15:32 | Inpatient (IN) | payer MEDICARE, SELFPAY ==
[2021-11-24] VITALS (7 sets, daily range): BP systolic 108–152; BP diastolic 74–95; PULSE 74–90; RESP 16–20; TEMP 36.6–36.8; O2SAT 91–95; BMI 21.5
--- NOTE | 2021-11-24 16:28 | CT_ITS ---
STUDY: CT BRAIN WITHOUT CONTRAST REASON FOR EXAM: Female, 66 years old. Mental status change, history of MS RADIATION DOSAGE (If Supplied By Facility): CTDIvol = ( 29.71 ) mGy, DLP = ( 537.81 ) mGycm TECHNIQUE: Transaxial CT imaging of the brain was performed without administration of intravenous contrast material. Individualized dose optimization techniques were used for this CT. COMPARISON: No relevant priors. FINDINGS: Normal soft tissue structures. Normal calvarium. There is moderate cerebral atrophy with widening of the extra-axial spaces and ventricular dilatation. There are areas of decreased attenuation within the white matter tracts of the supratentorial brain, consistent with microvascular disease changes. Normal basal ganglia and thalami. Normal brainstem. There is mild cerebellar atrophy. There is no intracranial hemorrhage. There are no findings of an acute ischemic infarction. Normal visualized paranasal sinuses. CT/Brain/Head without Contrast IMPRESSION: Chronic involutional changes of the brain. No acute hemorrhage Electronically Signed: Ed Higuera MD at 18:06 EST ,
[2021-11-24] MEDS: 0.9% Normal Saline 1,000 ML 1000 ML IV (16:45)
[2021-11-24 16:57] LABS: Absolute Lymphocyte Count 1.59 X10^3/uL (0.83-4.51); Absolute Neutrophil Count 6.3 X10^3/uL (2.0-7.7); Basophil# 0.06 X10^3/uL; Basophil% 0.7 % (0-1); Eosinophil# 0.29 X10^3/uL; Eosinophils% 3.2 % (0-5); Hematocrit 46.3 % (37-47); Hemoglobin 15.3 g/dL (12.0-15.0); Lymphocyte # 1.59 X10^3/ul (0.83-4.51); Lymphocyte % 17.4 % (19-41); Mean Corpuscular Hgb 31.4 pg (27.0-32.0); Mean Corpuscular Volume 95.1 fL (81-99); Mean Platelet Vol. 10.2 fl (6.2-12.0); Monocyte% 9.8 % (0-10); NRBC Flagged by Analyzer 0 % (0-5); Neutrophil # 6.26 X10^3/uL (2.7-7.7); Neutrophil % 68.4 % (47-70); Platelet Count 192 K/mm3 (150-450); RBC Distribution Width CV 14.3 % (11.6-14.6); RBC Distribution Width SD 49.2 fl (35.1-43.9); Red Blood Count 4.87 M/mm3 (4.2-5.4); White Blood Count 9.2 K/mm3 (4.4-11.0)
[2021-11-24 17:12] LABS: ALB/GLOB Ratio 0.7 RATIO (0.9-2.4); AST(SGOT) 95 U/L (15-37); Alanine Aminotransfer ALT/SGPT 150 U/L (13-56); Albumin, Serum 3.2 g/dL (3.2-5.0); Alkaline Phosphatase 100 U/L (45-117); Anion Gap 4 (5-15); BUN 38 mg/dL (7-18); BUN/Creat Ratio 21.7 RATIO (10-20); Calcium,Total 8.2 mg/dL (8.5-10.1); Chloride 106 mmol/L (98-107); Creatinine, Serum 1.75 mg/dL (0.55-1.02); EST Glomerular Filtration Rate 31 mL/min (>60); Est Glom Filt Rate - Afr Amer 37 mL/min (>60); Estimated Creatinine Clearance 33.97 ml/min; Globulin 4.7 g/dL (2.2-4.2); Glucose 97 mg/dL (74-106); Potassium 4.1 mmol/L (3.5-5.1); Protein, Total 7.9 g/dL (6.4-8.2); Sodium Level 140 mmol/L (136-145)
--- NOTE | 2021-11-24 17:34 | EX.ED.DYSGE1 ---
HPI History of Present Illness Chief Complaint: Weakness Detail of Chief Complaint: Difficulty drinking or feeding self Informant: spouse/S.O. Onset/Context/Timing Onset: Days Context: Sudden Onset Timing: Continuous Quality: Minimal use Location: Left upper extremity Current Severity: Moderate Maximum Severity: Moderate Worsened by: Unknown Relieved by: Unknown Associated Symptoms Associated Symptoms: Unknown Narrative Narrative: Patient is a six 6-year-old woman with significant neurologic debility due to MS. She has had TIAs in the past. She does have history of migraine headaches. 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 Patient also has stage IV renal disease and not 3 per caregiver. She has an appointment to be seen at the [facility] December 27. Apparently she fails swallow test but is able to eat and drink. She was sent in because of decline with increasing neuro symptoms and inability to care for herself. Her physician Dr. Carranza called prior to her arrival. She was recently diagnosed with urinary tract infection and started on cephalexin. Prior similar symptoms: No Recent Illness/Hospitalization: Yes PFSH [facility] Medical History Alcohol use Allergic rhinitis Back pain Bilateral hydronephrosis Blackout Chronic constipation CKD (chronic kidney disease) stage 4, GFR 15-29 ml/min Complicated urinary tract infection Constipation Declining functional status Dental bridge present Depression Difficulty swallowing Endometrial thickening on ultrasound History of echocardiogram History of edema History of wrist fracture Hyperlipidemia Hypertension Indwelling urethral catheter present Insomnia Iron deficiency anemia Loss of hearing Low iron Migraine headache Migraine headache MRSA colonization Multiple sclerosis Multiple sclerosis Muscle spasm Neurogenic bladder Non-smoker OAB (overactive bladder) Pelvic pain Port-A-Cath in place Right hemiparesis Transient ischemic attack Urinary tract infection Uses wheelchair Vitamin D deficiency Wears glasses Home Medications bisacodyl 10 mg RECTAL DAILY 07/01/18 [History Last Taken 11/24/21] acetaminophen 1,000 mg PO Q6H PRN PRN 02/15/19 [History Last Taken 03/25/19] lactulose 60 gm PO QHS 03/25/19 [History Last Taken 11/23/21] baclofen 20 mg PO TID 05/23/19 [History Last Taken 11/24/21] magnesium oxide 300 mg PO QHS 05/23/19 [History Last Taken 11/23/21] melatonin 10 mg PO QHS 05/23/19 [History Last Taken 11/23/21] polysaccharide iron complex 150 mg PO DAILY 05/23/19 [History Last Taken 11/24/21] aifgvwbjxei-G4-Brawpbgor serr 1 tab PO DAILY 11/15/20 [History Last Taken Unknown] ftdbd-de-6-qki-ceo-geciwcs-ast 1 ea PO DAILY 11/15/20 [History Last Taken Unknown] mirtazapine 30 mg PO QHS 11/15/20 [History Last Taken 11/23/21] vitamin B complex-folic acid 1 tab PO DAILY 11/15/20 [History Last Taken 11/24/21] cholecalciferol (vitamin D3) 50,000 unit PO QMONTH 08/15/21 [History Last Taken 2 Weeks Ago ~11/10/21] donepezil 10 mg PO QHS 08/15/21 [History Last Taken 11/23/21] methylphenidate HCl [Ritalin] 10 mg PO DAILY 08/15/21 [History Last Taken 11/24/21] mdjgpqm-vptk-vtkws-oreg-capryl 2 cap PO BID 08/15/21 [History Last Taken 11/23/21] loratadine 10 mg tablet 10 mg PO DAILY 11/03/21 [History Last Taken 11/23/21] hydrocodone-acetaminophen 1 tab PO Q4H PRN PRN 3 Days #10 tablet 11/18/21 [Rx Last Taken Unknown] cephalexin 500 mg PO Q12H #200 ml 11/22/21 [Rx Last Taken 11/23/21] cinacalcet 30 mg PO QODAY 11/24/21 [History Last Taken 11/23/21] qxzhzaqi-inthztt-zmra-lutein [Centrum Silver Ultra Women's] 1 tab PO DAILY 11/24/21 [History Last Taken 11/23/21] Allergy/AdvReac Type Severity Reaction Status Date / Time ciprofloxacin [From Cipro] AdvReac hypotension Verified 11/24/21 15:33 dextrose 5 % in water AdvReac Other Verified 11/24/21 15:33 [From Zyvox] doxycycline AdvReac hypotension Verified 11/24/21 15:33 levofloxacin [From Levaquin] AdvReac hypotension Verified 11/24/21 15:33 linezolid [From Zyvox] AdvReac Other Verified 11/24/21 15:33 morphine AdvReac hallucinati Verified 11/24/21 15:33 ons piperacillin [From Zosyn] AdvReac hypotension Verified 11/24/21 15:33 sulfamethoxazole AdvReac hypotension Verified 11/24/21 15:33 [From Bactrim] tazobactam [From Zosyn] AdvReac hypotension Verified 11/24/21 15:33 trimethoprim [From Bactrim] AdvReac hypotension Verified 11/24/21 15:33 vancomycin AdvReac developed Verified 11/24/21 15:33 toxic levels Surgical History H/O cervical polypectomy H/O dilation and curettage History of cystoscopy History of esophagogastroduodenoscopy (EGD) History of tonsillectomy and adenoidectomy History of tympanoplasty Hx of hand surgery Hx of shoulder surgery S/P laparoscopic procedure Social History (Updated 11/24/21 @ 17:[address] 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 Review of Systems ROS Unobtainable: due to mental status Neurologic Neurologic: Reports weakness EXAM Physical Exam Const Vital Signs: 11/24/21 15:34 11/24/21 16:23 11/24/21 18:23 Temperature 97.9 F Temperature Source Temporal Pulse Rate 87 84 74 Respiratory Rate 17 18 18 Blood Pressure 108/74 130/80 H 128/84 H Blood Pressure Mean 85 96 98 Pulse Ox 91 92 93 Oxygen Delivery Method Room Air Room Air Room Air 11/24/21 20:00 11/24/21 20:50 Temperature 97.9 F Temperature Source Temporal Pulse Rate 75 79 Respiratory Rate 18 20 H Blood Pressure 152/90 H 148/88 H Blood Pressure Mean 110 108 Pulse Ox 95 93 Oxygen Delivery Method Room Air Room Air Positive well developed and cachectic General Appearance ED: well developed, cachectic, NAD and pallor; Negative for cyanotic or diaphoretic Nutritional Appearance: cachectic HEENT Reports TM's clear and dry mucous membranes HEENT Narrative: Nares patent. Uvula midline. Posterior pharynx not erythema or exudate. Negative for trauma or tenderness Tympanic Membrane ED: Yes TM's clear Mouth ED: Yes dry mucous membranes Mouth: dry mucous membranes Eyes PERRL and EOMs intact bilaterally General Eye ED: Negative for pale conjunctiva or scleral icterus Neck no lymphadenopathy, supple and no JVD Resp normal respiratory effort and clear to auscultation bilaterally Cardio regular rate, regular rhythm, S1 normal heart sound, S2 normal heart sound and no murmurs GI normal to inspection, nondistended, normoactive bowel sounds, non-tender and non-distended Palpation: soft Back/Spine no CVA tenderness Extremity Extremity Narrative: Contractures and dependent edema Neuro No oriented x3 and CN's II-XII intact bilaterally Neuro Narrative: Follow simple commands. Has significant neurologic deficit on the right side and there is deficit on the left side. Sensorium / Orientation: Negative for alert Psych Negative for mental status grossly normal Skin no rashes or lesions noted and no wounds General Skin Exam: pallor; Negative for jaundice MDM MDM MDM Narrative Medical decision making narrative: Patient presents with failure to thrive. Concerned that she may have renal dysfunction, dehydration also need to evaluate for infectious encephalopathy. Also the concern for exacerbation of her MS versus stroke. Suspect the former and not the latter. Since patient has not seen a neurologist in 12 months and work-up was unremarkable will call hospitalist for admission since patient is not able to care for herself at this time. Spoke with the admitting hospitalist. He recommended consulting neurology stat for recommendations and to call him back. The specialist on-call for patient agreed with work-up. He feels that the exacerbation of her MS is due to the recent urinary tract infection. Recommended MRI. No medications at this time. Lab Data Attestation: I reviewed the patient's lab results. Lab results narrative: White count and H&H are unremarkable. Differential is unremarkable. Basic metabolic panel reveals elevated BUN/creatinine at 38 and 1.75 with a GFR of 31. ALT and AST are elevated 1 5095 respectively. Urine is improved from UA obtained earlier this week. There is no nitrites. There is 5-10 epithelial cells which were not present on Wednesday and there is no bacteria which was present on Wednesday. Labs: Laboratory Results - last 24 hr 11/24/21 11/24/21 11/24/21 16:45 16:45 17:45 WBC 9.2 RBC 4.87 Hgb 15.3 H Hct 46.3 MCV 95.1 MCH 31.4 MCHC 33.0 RDW Std Deviation 49.2 H RDW Coeff of Niurka 14.3 Plt Count 192 MPV 10.2 Immature Gran % (Auto) 0.500 Neut % (Auto) 68.4 Lymph % (Auto) 17.4 L [place] % (Auto) 9.8 Eos % (Auto) 3.2 Baso % (Auto) 0.7 Absolute Neuts (auto) 6.3 Absolute Lymphs (auto) 1.59 Nucleated RBC % 0 Sodium 140 Potassium 4.1 Chloride 106 Carbon Dioxide 30.0 Anion Gap 4 L BUN 38 H Creatinine 1.75 H Estim Creat Clear Calc 33.97 Est GFR (MDRD) Af Amer 37 L Est GFR (MDRD) Non-Af 31 L BUN/Creatinine Ratio 21.7 H Glucose 97 Calcium 8.2 L Total Bilirubin 0.30 AST 95 H ALT 150 H Alkaline Phosphatase 100 Total Protein 7.9 Albumin 3.2 Globulin 4.7 H Albumin/Globulin Ratio 0.7 L Urine Color Yellow Urine Clarity Sl. Cloudy Urine pH 7.0 Ur Specific [place] 1.010 Urine Protein 15 H Urine Glucose (UA) Normal Urine Ketones Negative Urine Occult Blood 50 H Urine Nitrite Negative Urine Bilirubin Negative Urine Urobilinogen Normal Ur Leukocyte Esterase 500 H Urine RBC 5-10 SEEN Urine WBC 25-50 SEEN Ur Squamous Epith Cells 5-10 SEEN Urine Bacteria 0 SEEN Urine Mucus 0 SEEN Radiography Diagnostic Testing: Clinical Impression(s) from Imaging Studies Brain CT 11/24/21 16:28 IMPRESSION: Chronic involutional changes of the brain. No acute hemorrhage Electronically Signed: Ed Higuera MD at 18:06 EST Reading Location ID and State: [address] [place] [address] , Service support , Discharge Plan Triage Chief Complaint: Weakness ED Provider: Ricardo Ordoñez Dx/Rx/DC Orders Prescriptions: No Action loratadine [Claritin] 10 mg tablet 10 mg PO DAILY RF: 0 bisacodyl 10 MG suppository 10 mg RECTAL DAILY RF: 0 acetaminophen 500 MG tablet 1,000 mg PO Q6H PRN PRN (Reason: Pain) RF: 0 lactulose 20 GM/30 ML solution 60 gm PO QHS RF: 0 polysaccharide iron complex 150 MG capsule 150 mg PO DAILY RF: 0 baclofen 20 MG tablet 20 mg PO TID RF: 0 melatonin 5 MG capsule 10 mg PO QHS RF: 0 magnesium oxide 400 MG tablet 300 mg PO QHS RF: 0 mirtazapine 15 MG tablet 30 mg PO QHS RF: 0 njuvcgdjmya-T3-Urbvoafkl serr 1 EACH tablet 1 tab PO DAILY RF: 0 vitamin B complex-folic acid 0.4 MG tablet 1 tab PO DAILY RF: 0 pulng-bv-1-gnr-dnp-biuthvi-ast 1 EACH capsule 1 ea PO DAILY RF: 0 methylphenidate HCl [Ritalin] 10 mg Tablet 10 mg PO DAILY RF: 0 donepezil 10 mg Tablet 10 mg PO QHS RF: 0 kkeqpme-itmn-bnnhn-oreg-capryl 100 mg-150 mg- 50 mg-150 mg Capsule 2 cap PO BID RF: 0 cholecalciferol (vitamin D3) 1,250 mcg (50,000 unit) capsule 50,000 unit PO QMONTH RF: 0 hydrocodone-acetaminophen [hydrocodone-acetaminophen] 1 TABLET tablet 1 tab PO Q4H PRN PRN (Reason: Pain) 3 Days Qty: 10 RF: 0 cephalexin 250 mg/5 mL suspension for reconstitution 500 mg PO Q12H Qty: 200 RF: 0 Centrum Silver Ultra Women's Tablet 1 tab PO DAILY RF: 0 cinacalcet 30 mg tablet 30 mg PO QODAY RF: 0 Primary Care Provider: Alexandria Carranza Referrals: Alexandria Carranza MD [Primary Care Provider] -
[2021-11-24 17:49] LABS: Bacteria 0 SEEN /hpf (None Seen); Mucous, Urine 0 SEEN /hpf (<or=2+)
[2021-11-24 18:03] LABS: Color, Urine Yellow (Yellow); Glucose, Dipstick Normal (Normal); Ketone-Dipstick Negative (Negative); Leukocyte Esterase-Dipstick 500 /ul (Negative); Nitrite-Dipstick Negative (Negative); Occult Blood-Urine 50 /ul (Negative); Protein-Dipstick 15 mg/dl (Negative); Urine Bilirubin Dipstick Negative (Negative); Urine Clarity Sl. Cloudy (Clear); Urine Urobilinogen Normal (Normal)
[2021-11-24] MEDS: 0.9% Normal Saline 1,000 ML 150 ML IV (18:05)
[2021-11-24 18:09] LABS: Red Blood Cells-Urine 5-10 SEEN /hpf (0-5); Squamous Epithelial Cells - UA 5-10 SEEN /hpf (5-10); White Blood Cells 25-50 SEEN /hpf (0-5)
--- NOTE | 2021-11-24 19:18 | HP.PCM.HOS_ITS ---
[facility] - General General Date of Admission: 11/24/21 HPI Narrative KEN CASON, is a 66 F with a significant history of CKD, and multiple sclerosis who presents to the emergency department with a progressively worsening weakness for the past 2 weeks. 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 Patient is unable to provide history secondary to speech impediment. Reportedly typically patient can be set up to do some activities of daily living and to feed herself . However in the timeframe about patient was not been able to feed herself. Chronically her right upper extremity is weak. However in the past 2 weeks her left upper extremity has also been a week. After that she has a bilateral leg weakness for transfer. Reportedly in the past patient has been able to put some weight on her legs but now patient can not put any weight on legs and her has to lift her. Further her reported patient is unable to clear secretions from him mouth. She has been drooling. However she is also able to swallow per her . And report that in the past patient has always failed swallow evaluation. Her wants patient to take baclofen and Remeron as per patient will have withdrawal symptoms if she does not take these. Reportedly patient is constipated although multiple bowel regimen has been tried. Her reports that CT scan showed moderate stool burden. Reportedly patient was started on on Keflex 11/22/2021. Patient has an appointment at [facility] (in [place], [place]) for her MS in December 2021. In the past week, patient had a cystoscopy, vaginal exams and cervical lapar oscopy [facility] Medical History Alcohol use Allergic rhinitis Back pain Bilateral hydronephrosis Blackout Chronic constipation CKD (chronic kidney disease) stage 4, GFR 15-29 ml/min Complicated urinary tract infection Constipation Declining functional status Dental bridge present Depression Difficulty swallowing Endometrial thickening on ultrasound History of echocardiogram History of edema History of wrist fracture Hyperlipidemia Hypertension Indwelling urethral catheter present Insomnia Iron deficiency anemia Loss of hearing Low iron Migraine headache Migraine headache MRSA colonization Multiple sclerosis Multiple sclerosis Muscle spasm Neurogenic bladder Non-smoker OAB (overactive bladder) Pelvic pain Port-A-Cath in place Right hemiparesis Urinary tract infection Uses wheelchair Vitamin D deficiency Wears glasses Home Medications bisacodyl 10 mg RECTAL DAILY 07/01/18 [History Last Taken 11/24/21] acetaminophen 1,000 mg PO Q6H PRN PRN 02/15/19 [History Last Taken 03/25/19] lactulose 60 gm PO QHS 03/25/19 [History Last Taken 11/23/21] baclofen 20 mg PO TID 05/23/19 [History Last Taken 11/24/21] magnesium oxide 300 mg PO QHS 05/23/19 [History Last Taken 11/23/21] melatonin 10 mg PO QHS 05/23/19 [History Last Taken 11/23/21] polysaccharide iron complex 150 mg PO DAILY 05/23/19 [History Last Taken 11/24/21] kxhjgvqkabn-W3-Bbruwioec serr 1 tab PO DAILY 11/15/20 [History Last Taken Unknown] lsqzt-ju-3-sdl-sgh-wejbhxt-ast 1 ea PO DAILY 11/15/20 [History Last Taken Unknown] mirtazapine 30 mg PO QHS 11/15/20 [History Last Taken 11/23/21] vitamin B complex-folic acid 1 tab PO DAILY 11/15/20 [History Last Taken 11/24/21] cholecalciferol (vitamin D3) 50,000 unit PO QMONTH 08/15/21 [History Last Taken 2 Weeks Ago ~11/10/21] donepezil 10 mg PO QHS 08/15/21 [History Last Taken 11/23/21] methylphenidate HCl [Ritalin] 10 mg PO DAILY 08/15/21 [History Last Taken 11/24/21] iyhfaww-gpis-tlemt-oreg-capryl 2 cap PO BID 08/15/21 [History Last Taken 11/23/21] loratadine 10 mg tablet 10 mg PO DAILY 11/03/21 [History Last Taken 11/23/21] hydrocodone-acetaminophen 1 tab PO Q4H PRN PRN 3 Days #10 tablet 11/18/21 [Rx Last Taken Unknown] cephalexin 500 mg PO Q12H #200 ml 11/22/21 [Rx Last Taken 11/23/21] cinacalcet 30 mg PO QODAY 11/24/21 [History Last Taken 11/23/21] qlayfage-umqhsji-midd-lutein [Centrum Silver Ultra Women's] 1 tab PO DAILY 11/24/21 [History Last Taken 11/23/21] Allergy/AdvReac Type Severity Reaction Status Date / Time ciprofloxacin [From Cipro] AdvReac hypotension Verified 11/24/21 15:33 dextrose 5 % in water AdvReac Other Verified 11/24/21 15:33 [From Zyvox] doxycycline AdvReac hypotension Verified 11/24/21 15:33 levofloxacin [From Levaquin] AdvReac hypotension Verified 11/24/21 15:33 linezolid [From Zyvox] AdvReac Other Verified 11/24/21 15:33 morphine AdvReac hallucinati Verified 11/24/21 15:33 ons piperacillin [From Zosyn] AdvReac hypotension Verified 11/24/21 15:33 sulfamethoxazole AdvReac hypotension Verified 11/24/21 15:33 [From Bactrim] tazobactam [From Zosyn] AdvReac hypotension Verified 11/24/21 15:33 trimethoprim [From Bactrim] AdvReac hypotension Verified 11/24/21 15:33 vancomycin AdvReac developed Verified 11/24/21 15:33 toxic levels Surgical History H/O cervical polypectomy H/O dilation and curettage History of cystoscopy History of esophagogastroduodenoscopy (EGD) History of tonsillectomy and adenoidectomy History of tympanoplasty Hx of hand surgery Hx of shoulder surgery S/P laparoscopic procedure Social History household members: spouse Smoking Status: Never smoker alcohol intake: never substance use type: does not use what type of physical activity do you participate in: none seatbelt use: always do you feel safe at home: Yes 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 All other systems were reviewed and are negative. Vital Signs Vital Signs Vital Signs: 11/24/21 15:34 11/24/21 16:23 11/24/21 18:23 Temperature 97.9 F Temperature Source Temporal Pulse Rate 87 84 74 Respiratory Rate 17 18 18 Blood Pressure 108/74 130/80 H 128/84 H Blood Pressure Mean 85 96 98 Pulse Ox 91 92 93 Oxygen Delivery Method Room Air Room Air Room Air Weight Weight: 68.039 kg Body Mass Index (BMI) 21.5 Physical Exam Narrative Physical exam: General: Well-nourished, well-developed. Head: Normocephalic, atraumatic, no tenderness Eyes: Vision is grossly intact, EOMI ENT, no trauma, moist mucous membranes, no rhinorrhea Neck: Nontender, full range of motion, no spinal tenderness, deformities, step- off CVS: Regular rate and rhythm. S1-S2 present. No murmur, gallop or rub. Respiratory : Crackles in left base. clear to auscultation bilaterally, chest wall nontender, no wheezing Abdomen: Soft, nontender, nondistended, normal bowel sounds, no masses : Suprapubic catheter present. Back: Nontender, no CVA tenderness, no midline spinal tenderness, deformities, step-offs Extremities: Nontender full range of motion, no trauma Skin: Blister on right gluteal fold. Normal color, no trauma. Neuro: Alert. Knows that she is at the Hospital. Did not verbalize the month and the year upon questioning. Limited range of left leg. Could not raise right leg. Limited range of motion of right upper extremity; strength in left upper extremity 4/5. Could raise her right upper extremity slightly. Psychiatry: Normal mood. Normal affect. Not depressed. Not anxious. Results Lab / Micro Data Result Diagrams: 11/24/21 16:45 11/24/21 16:45 Labs: Laboratory Results - last 24 hr 11/24/21 16:45: WBC 9.2, RBC 4.87, Hgb 15.3 H, Hct 46.3, MCV 95.1, MCH 31.4, MCHC 33.0, RDW Std Deviation 49.2 H, RDW Coeff of Niurka 14.3, Plt Count 192, MPV 10.2, Immature Gran % (Auto) 0.500, Neut % (Auto) 68.4, Lymph % (Auto) 17.4 L, [place] % (Auto) 9.8, Eos % (Auto) 3.2, Baso % (Auto) 0.7, Absolute Neuts (auto) 6. 3, Absolute Lymphs (auto) 1.59, Nucleated RBC % 0 11/24/21 16:45: Sodium 140, Potassium 4.1, Chloride 106, Carbon Dioxide 30.0, Anion Gap 4 L, BUN 38 H, Creatinine 1.75 H, Estim Creat Clear Calc 33.97, Est GFR (MDRD) Af Amer 37 L, Est GFR (MDRD) Non-Af 31 L, BUN/Creatinine Ratio 21.7 H , Glucose 97, Calcium 8.2 L, Total Bilirubin 0.30, AST 95 H, ALT 150 H, Alkaline Phosphatase 100, Total Protein 7.9, Albumin 3.2, Globulin 4.7 H, Alb umin/Globulin Ratio 0.7 L 11/24/21 17:45: Urine Color Yellow, Urine Clarity Sl. Cloudy, Urine pH 7.0, Ur Specific [place] 1.010, Urine Protein 15 H, Urine Glucose (UA) Normal, Urine Ketones Negative, Urine Occult Blood 50 H, Urine Nitrite Negative, Urine Bilirubin Negative, Urine Urobilinogen Normal, Ur Leukocyte Esterase 500 H, Urine RBC 5-10 SEEN, Urine WBC 25-50 SEEN, Ur Squamous Epith Cells 5-10 SEEN, Urine Bacteria 0 SEEN, Urine Mucus 0 SEEN Radiology Impression Brain CT 11/24/21 16:28 IMPRESSION: Chronic involutional changes of the brain. No acute hemorrhage Electronically Signed: Ed Higuera MD at 18:06 EST Reading Location ID and State: [facility] / [place] , Service support , Assessment & Plan Assessment/Plan (1) Multiple sclerosis: (2) Constipation: QUALIFIERS: Constipation type: unspecified constipation type Q ualified Code(s): K59.00 - Constipation, unspecified (3) Complicated urinary tract infection: PLAN: Acute exacerbation of multiple sclerosis Emergency department doctor discussed the case with [facility] neurologist who recommended MRI of the brain and thinks that this is probably a pseudo- exacerbation likely secondary to UTI; and after MRI findings [facility] neurologist can be reconsulted. CT of the brain was visualized independently interpreted. I agree radiologist interpretation of chronic involutional changes with no acute bleed. MRI of the brain ordered. Complicated UTI Patient has a suprapubic catheter which may be contributing Review of CBC showed normal white count. Urinalysis reviewed showed urine occult blood; positive urine leukocyte esterase; urine RBC; urine WBC elevated; 5-10 squamous epithelial cells. Her urine culture on 11/22/2021 was positive for Klebsiella oxytoca and gram- positive Enterococcus. Klebsiella positive culture was a pansensitive except that it was resistant to ampicillin. Patient was seen on 11/22/2021 at the emergency department and was started on Keflex. We will start patient on ceftriaxone. Trend CBC Constipation with multiple regimen tried at home will start patient on soapsuds enema. JAYY on CKD stage IIIb CR 1.75 Baseline ~ 1.4 BUN is 38. BUN over creatinine is 21.7. Likely prerenal Normal saline hydration ordered. Trend BMP Dysphagia Speech therapy consult Stage II pressure ulcer on gluteal fold Calmoseptine ordered. DVT prophylaxis: Subcutaneous Lovenox ordered. Charges/Coding Visit Charges Inpatient E&M: 38850 Init Hosp L3
--- NOTE | 2021-11-24 19:28 | TELEMED_ITS ---
[facility] Telemed has confirmed receipt of a request for visit. This document confirms receipt of the order initiating the consult. To find the results of the consultation, please view the patient's reports for the scanned Telemed Consult.
--- NOTE | 2021-11-24 20:48 | ED.RN ---
NEURO CONSULT ON TELEMEDICINE
[2021-11-24] MEDS: 0.9% Normal Saline 1,000 ML 100 ML IV (22:14)
[2021-11-24] MEDS: Ceftriaxone 1 GM/50 ML BAG IV (22:29)
[2021-11-24] MEDS: Baclofen 10 MG Tablet 20 MG PO (22:32)
[2021-11-24] MEDS: Magnesium Chloride 64 MG Delay Rel.Tablet 128 MG PO (22:32)
[2021-11-24] MEDS: Menthol/Lanolin/Calamine/Znox 113 GM Tube 1 APPLIC TOPICAL (22:32)
[2021-11-24] MEDS: Mirtazapine 30 MG Tablet PO (22:32)
[2021-11-24] MEDS: Donepezil HCl 10 MG Tablet PO (22:32)
[2021-11-24] MEDS: Lactulose 20 GM/30 ML UDC 60 GM PO (22:32)
[2021-11-24] MEDS: MELATONIN 10 MG TABLET PO (22:33)
[2021-11-25] VITALS (10 sets, daily range): BP systolic 129–154; BP diastolic 84–94; PULSE 72–87; RESP 16–20; TEMP 36.3–36.9; O2SAT 93–96
[2021-11-25] MEDS: Baclofen 10 MG Tablet 20 MG PO ×3 (05:38→20:16)
[2021-11-25] MEDS: Menthol/Lanolin/Calamine/Znox 113 GM Tube 1 APPLIC TOPICAL ×3 (05:38→20:14)
--- NOTE | 2021-11-25 05:55 | MRI_ITS ---
HISTORY: Multiple sclerosis. TECHNIQUE: Multiplanar and multisequence MR images of the brain were obtained without gadolinium. # of images incl. paperwork: [id number]. COMPARISON: CT prior day, MR 03/04/2017. FINDINGS: BRAIN PARENCHYMA: Moderate T2 FLAIR hyperintense signal in the final cerebral white matter are again seen. No abnormal focus of restricted diffusion. INTRACRANIAL HEMORRHAGE: No acute intracranial hemorrhage. CSF SPACES: Chronic volume loss with atrophy of the corpus callosum, cerebellar atrophy, right greater than left occipital volume loss, and left greater than right frontoparietal volume loss again noted. No midline shift or other significant mass effect. No extra-axial fluid collection. VASCULAR SYSTEM: Major intracranial flow-voids maintained. ORBITS: Unremarkable. PARANASAL SINUSES AND MASTOID AIR CELLS: Mild fluid in the left mastoid air cells. MRI/Brain without Contrast IMPRESSION: No evidence for acute infarct. Chronic white matter changes with cerebral and cerebellar atrophy. at 1143 Reported and signed by: Karli Leonard MD Electronically Signed: Karli Leonard MD at 11:41 EST ,
[2021-11-25] MEDS: 0.9% Normal Saline 1,000 ML 100 ML IV ×2 (08:19→20:04)
--- NOTE | 2021-11-25 09:07 | WOUNDNOTE ---
wound photo: left buttock
[2021-11-25] MEDS: Multivitamins,Ther W-Minerals Tablet 1 TABLET PO (09:25)
[2021-11-25] MEDS: Enoxaparin 40 MG/0.4 ML Syringe SC (09:26)
[2021-11-25] MEDS: Cinacalcet HCl 30 MG Tablet PO (09:26)
[2021-11-25] MEDS: Folic Acid/Vitamin B Comp W-C 1 Capsule 1 CAP PO (09:26)
[2021-11-25] MEDS: Iron Polysaccharide Complex 150 MG CAPSULE PO (09:26)
--- NOTE | 2021-11-25 09:35 | NURSING ---
pt to mri
--- NOTE | 2021-11-25 10:40 | CASEMGMT ---
SHARLENE LATHAM Face to Face with del for initial transition planning/care coordination assessment. SHARLENE LATHAM introduced self and role at [facility]. Patient is out of room for testing. , Siva, willing to participate in assessment and is able to answer all questions appropriately. Care providers, pharmacy, and demographics verified. wishes for patient to discharge home with possible HHC. SHARLENE LATHAM provided list of HHC agencies in-network with patients insurance and ratings. Siva states he has no further needs or concerns at this time. CM to follow for discharge planning needs that may arise. PCP: Tere Specialists: Tal urolgoist; Phuc, POSITIVE PRINTER OPERATOR; , serials librarian; Alex, silk screen cutter Preferred Pharmacy: [facility], [facility] retail at discharge. Insurance: MMO [facility] Prescription Benefit: yes Living Will/HPOA: yes, Siva Sharp HPOA LNOK: Living Arrangements: Patient lives with in a single story home with ramp to enter the home. provided care for patient with ADLs. Transportation: , has wheelchair van DME/HHC: Patient has shower chair, BSC, adjustable bed, boris, wheelchair, pulse ox at home. Patient has previously been to TCU. Patient has had [facility] and [facility] in the past. Disposition Plan: Patient to discharge home with family support and follow-up plans in place. Will monitor for HHC at discharge. Kelsie DUONG, RN, CM
--- NOTE | 2021-11-25 10:47 | PCM.PN.HOSP ---
Documented by User: Farhat VELASQUEZ 11/25/21 10:56 Subjective Subjective Patient is a 66-year-old female comfortably resting in bed, alert and orient x3. Does not appear in acute distress. Objective Data Objective Data Vital Signs: Vital Signs Temp Pulse Resp BP Pulse Ox 97.6 F L 72 16 129/87 H 93 11/25/21 08:12 11/25/21 08:24 11/25/21 08:12 11/25/21 08:12 11/25/21 08:12 Oxygen Delivery Method Room Air Weight: 138 lb 10.732 oz Body Mass Index (BMI) 21.5 Intake & Output: Intake and Output for Last 24 Hours 11/23/21 11/24/21 11/25/21 23:59 23:59 23:59 Intake Total 2049 1245 / 1245 Output Total 1700 / 1700 Balance 2050 / 950 -455 / -455 Lab / Micro Data Result Diagrams: 11/24/21 16:45 11/24/21 16:45 Labs: Laboratory Results - last 24 hr 11/24/21 16:45: WBC 9.2, RBC 4.87, Hgb 15.3 H, Hct 46.3, MCV 95.1, MCH 31.4, MCHC 33.0, RDW Std Deviation 49.2 H, RDW Coeff of Niurka 14.3, Plt Count 192, MPV 10.2, Immature Gran % (Auto) 0.500, Neut % (Auto) 68.4, Lymph % (Auto) 17.4 L, [place] % (Auto) 9.8, Eos % (Auto) 3.2, Baso % (Auto) 0.7, Absolute Neuts (auto) 6.3, Absolute Lymphs (auto) 1.59, Nucleated RBC % 0 11/24/21 16:45: Sodium 140, Potassium 4.1, Chloride 106, Carbon Dioxide 30.0, Anion Gap 4 L, BUN 38 H, Creatinine 1.75 H, Estim Creat Clear Calc 33.97, Est GFR (MDRD) Af Amer 37 L, Est GFR (MDRD) Non-Af 31 L, BUN/Creatinine Ratio 21.7 H, Glucose 97, Calcium 8.2 L, Total Bilirubin 0.30, AST 95 H, ALT 150 H, Alkaline Phosphatase 100, Total Protein 7.9, Albumin 3.2, Globulin 4.7 H, Albumin/Globulin Ratio 0.7 L 11/24/21 17:45: Urine Color Yellow, Urine Clarity Sl. Cloudy, Urine pH 7.0, Ur Specific [place] 1.010, Urine Protein 15 H, Urine Glucose (UA) Normal, Urine Ketones Negative, Urine Occult Blood 50 H, Urine Nitrite Negative, Urine Bilirubin Negative, Urine Urobilinogen Normal, Ur Leukocyte Esterase 500 H, Urine RBC 5-10 SEEN, Urine WBC 25-50 SEEN, Ur Squamous Epith Cells 5-10 SEEN, Urine Bacteria 0 SEEN, Urine Mucus 0 SEEN Radiography Diagnostic Testing: Radiology Impression Brain CT 11/24/21 16:28 IMPRESSION: Chronic involutional changes of the brain. No acute hemorrhage Electronically Signed: Ed Higuera MD at 18:06 EST , Physical Exam Const alert, oriented x3 and no apparent distress HEENT head/scalp atraumatic and moist oral mucous membranes Head and Scalp: normocephalic Eyes PERRL and conjunctivae normal Neck no lymphadenopathy, supple and no JVD Resp normal respiratory effort, no retractions and no use of accessory muscles Cardio regular rate, regular rhythm and no JVD GI normal to inspection, nondistended, normoactive bowel sounds Extremity normal to inspection Skin no rashes or lesions noted Neuro CN's II-XII intact bilaterally Psych affect normal Assessment & Plan Assessment/Plan (1) Multiple sclerosis: (2) Constipation: QUALIFIERS: Constipation type: unspecified constipation type Qualified Code(s): K59.00 - Constipation, unspecified PLAN: Day 1 Discharge planning: Current plan is for patient to discharge home when medically ready. 1) dysphagia and worsening weakness. Considering acute MS exacerbation or possible pseudoexacerbation secondary to acute cystitis. SOC consult obtained and recommendations were to obtain MRI, MRI results ordered/pending, PT/OT/ST eval ordered. 2) complicated UTI Patient with a suprapubic catheter. Follows with Dr. Olmos. UA on admission demonstrated yellow cloudy urine with negative nitrites, 500 leukocyte esterase, 25-50 urine WBCs and 0 bacteria. Urine culture from 11/22+ for Klebsiella oxytoca and gram-positive Enterococcus, subsequently initiated on Keflex based off of sensitivities. Given recurrent nature of UTIs, will initiate Rocephin and obtain ID consult. 3) history of multiple sclerosis Could be complicating #1. We will continue baclofen and Remeron. 4) JAYY on CKD stage IIIb Currently 1.75, baseline appears around 1.2. Continue gentle fluids, trend BMP. 5) stage II pressure ulcer on the gluteal fold Calmoseptine ordered. DVT prophylaxis - Lovenox. Patient seen by Farhat Montalvo PA-C, under the supervision of Dr. Sam. Time spent on patient care: 12 minutes. Documented by User: Dr. Singh Sam MD 11/25/21 12:09 Objective Data Lab / Micro Data Result Diagrams: 11/24/21 16:45 11/24/21 16:45 Assessment & Plan Addt'l Comments This patient was seen in conjunction with Farhat Montalvo PA-C. I have independently interviewed and examined the patient and reviewed pertinent historical, laboratory, and other data. Please refer to Farhat Montalvo PA-C's note for details of this patient's presentation, findings, and recommendations. I have reviewed Farhat Montalvo PA-C's note and concur with documented findings. In brief, patient is a 66-year-old lady with history of multiple sclerosis with significant debility brought to the ED by her on account of progressive generalized weakness Physical Examination: General: Interactive Eyes: Anicteric NECK; supple, normal thyroid, RESPIRATORY: Diminished to auscultation bilaterally, CARDIOVASCULAR: Regular S1 S2, GI: soft, non-tender, normoactive bowel sounds, : No Renal angle tenderness; EXTREMITIES: No edema, no clubbing, NEURO: Awake SKIN: No Rash PSYCH; flat affect Assessment: 1. Acute complicated UTI 2. Multiple sclerosis with significant debility 3. Chronic kidney disease stage IIIb 4. Constipation 4. Dysphagia 6. DVT prophylaxis Recommendations: 1. I have discussed the results of my overview and impressions with the patient 2. Options for management were reviewed Total time spent by myself and the advanced practice practitioner evaluating patient, reviewing labs, subsequent management decisions, discussion with patient's as well as other providers 40 minutes ( 28 of which was spent by myself) Charges/Coding Visit Charges Inpatient E&M: 83564 [facility] L3
[2021-11-25] MEDS: Methylphenidate HCl 5 MG Tablet 10 MG PO (11:30)
[2021-11-25] MEDS: Bisacodyl 10 MG Suppository RC (11:30)
--- NOTE | 2021-11-25 12:15 | CHAPLAIN ---
Type of Pastoral Visit _x__ Initial Visit ___ Follow-up Visit ___ On-call Visit ___ General Patient Visit ___ Spiritual Assessment ___ Family Conference ___ Bereavement ___ Rapid Response ___ Code Blue ___ Other (describe below) Pastoral Care Referral From _x__ Patient _x__ Family ___ Nurse ___ Physician ___ Clinical Support Tech ___ Chucker ___ Other (describe below) Sacrament/Intervention _x__ Active listening ___ Anointing ___ Cheondoism ___ Bereavement ___ Communion ___ Justine exploration ___ ___ Life review _x__ Prayer ___ Reconciliation ___ Sacrament of Sick _x__ Supportive presence ___ Wedding ___ Other (describe below) Pastoral Comments patient has been seen before by this community assistant in previous visits; spouse is with patient and attending to her; review of how patient has been in last few years; offer of support; patient and spouse welcome presence and prayer for support
[2021-11-25 13:45] LABS: Ammonia < 10.0 umol/L (11-32)
[2021-11-25] MEDS: Ondansetron 4 MG/2 ML Vial IV (14:26)
[2021-11-25] MEDS: NYSTATIN 500,000 UNIT/5 ML UDC 500000 UNIT PO ×3 (14:58→20:16)
[2021-11-25] MEDS: Ceftriaxone 1 GM/50 ML BAG IV (20:14)
[2021-11-25] MEDS: Mirtazapine 30 MG Tablet PO (20:16)
[2021-11-25] MEDS: MELATONIN 10 MG TABLET PO (20:16)
[2021-11-25] MEDS: Lactulose 20 GM/30 ML UDC 60 GM PO (20:17)
[2021-11-25] MEDS: Magnesium Chloride 64 MG Delay Rel.Tablet 128 MG PO (20:17)
[2021-11-26] VITALS (9 sets, daily range): BP systolic 106–140; BP diastolic 57–98; PULSE 62–72; RESP 14–18; TEMP 36.2–37; O2SAT 92–98
[2021-11-26] MEDS: Menthol/Lanolin/Calamine/Znox 113 GM Tube 1 APPLIC TOPICAL ×3 (05:16→20:13)
[2021-11-26] MEDS: 0.9% Normal Saline 1,000 ML 100 ML IV ×2 (05:16→15:39)
[2021-11-26] MEDS: Baclofen 10 MG Tablet 20 MG PO ×3 (05:16→20:14)
[2021-11-26 06:10] LABS: Absolute Neutrophil Count 5.3 X10^3/uL (2.0-7.7); Basophil# 0.06 X10^3/uL; Basophil% 0.7 % (0-1); Eosinophil# 0.51 X10^3/uL; Eosinophils% 6.3 % (0-5); Hematocrit 37.4 % (37-47); Lymphocyte % 19.6 % (19-41); Mean Corp Hgb Conc 32.1 g/dL (32-36); Mean Corpuscular Hgb 30.7 pg (27.0-32.0); Mean Corpuscular Volume 95.7 fL (81-99); Mean Platelet Vol. 10.5 fl (6.2-12.0); Monocyte# 0.66 X10^3/uL; Monocyte% 8.1 % (0-10); NRBC Flagged by Analyzer 0 % (0-5); Neutrophil # 5.29 X10^3/uL (2.7-7.7); Neutrophil % 64.9 % (47-70); Platelet Count 142 K/mm3 (150-450); RBC Distribution Width CV 14.5 % (11.6-14.6); Red Blood Count 3.91 M/mm3 (4.2-5.4); White Blood Count 8.2 K/mm3 (4.4-11.0)
[2021-11-26 06:32] LABS: Anion Gap 3 (5-15); BUN 22 mg/dL (7-18); BUN/Creat Ratio 17.7 RATIO (10-20); Calcium,Total 7.2 mg/dL (8.5-10.1); Chloride 115 mmol/L (98-107); Creatinine, Serum 1.24 mg/dL (0.55-1.02); EST Glomerular Filtration Rate 46 mL/min (>60); Est Glom Filt Rate - Afr Amer 56 mL/min (>60); Estimated Creatinine Clearance 44.31 ml/min; Glucose 79 mg/dL (74-106); Sodium Level 143 mmol/L (136-145)
[2021-11-26] MEDS: Folic Acid/Vitamin B Comp W-C 1 Capsule 1 CAP PO (10:00)
[2021-11-26] MEDS: Methylphenidate HCl 5 MG Tablet 10 MG PO (10:00)
[2021-11-26] MEDS: Multivitamins,Ther W-Minerals Tablet 1 TABLET PO (10:00)
[2021-11-26] MEDS: Iron Polysaccharide Complex 150 MG CAPSULE PO (10:00)
[2021-11-26] MEDS: NYSTATIN 500,000 UNIT/5 ML UDC 500000 UNIT PO ×4 (10:01→20:13)
--- NOTE | 2021-11-26 11:35 | PCM.PN.HOSP ---
Documented by User: Farhat VELASQUEZ 11/26/21 11:44 Subjective Subjective Patient is a 66-year-old female sitting in a chair, appears unchanged from yesterday. Unable to assess patient in [place] given nonverbal status. Does not appear in acute distress. Objective Data Objective Data Vital Signs: Vital Signs Temp Pulse Resp BP Pulse Ox 97.2 F L 66 18 127/57 H 94 11/26/21 09:00 11/26/21 11:20 11/26/21 09:00 11/26/21 09:00 11/26/21 09:00 Oxygen Delivery Method Room Air Weight: 138 lb 10.732 oz Body Mass Index (BMI) 21.5 Intake & Output: Intake and Output for Last 24 Hours 11/24/21 11/25/21 11/26/21 23:59 23:59 23:59 Intake Total 2049 / 2049 2146.67 / 2146.67 920 / 920 Output Total 3050 / 3325 575 / 575 Balance 2050 / 950 -903.33 / -1178.33 345 / 345 Lab / Micro Data Result Diagrams: 11/26/21 04:52 11/26/21 04:52 Labs: Laboratory Results - last 24 hr 11/25/21 12:55: Ammonia < 10.0 L 11/26/21 04:52: WBC 8.2, RBC 3.91 L, Hgb 12.0, Hct 37.4, MCV 95.7, MCH 30.7, MCHC 32.1, RDW Std Deviation 51.0 H, RDW Coeff of Niurka 14.5, Plt Count 142 L, MPV 10.5, Immature Gran % (Auto) 0.400, Neut % (Auto) 64.9, Lymph % (Auto) 19.6, [place] % (Auto) 8.1, Eos % (Auto) 6.3 H, Baso % (Auto) 0.7, Absolute Neuts (auto) 5.3, Absolute Lymphs (auto) 1.60, Nucleated RBC % 0 11/26/21 04:52: Sodium 143, Potassium 4.0, Chloride 115 H, Carbon Dioxide 25.0, Anion Gap 3 L, BUN 22 H, Creatinine 1.24 H, Estim Creat Clear Calc 44.31, Est GFR (MDRD) Af Amer 56 L, Est GFR (MDRD) Non-Af 46 L, BUN/Creatinine Ratio 17.7, Glucose 79, Calcium 7.2 L Radiography Diagnostic Testing: Radiology Impression Brain MRI 11/25/21 05:55 IMPRESSION: No evidence for acute infarct. Chronic white matter changes with cerebral and cerebellar atrophy. at 1143 Reported and signed by: Karli Leonard MD Electronically Signed: Karli Leonard MD at 11:41 EST Reading Location ID and State: [facility] / [place] Tel , Service support , Physical Exam Const Constitutional Narrative: Unable to assess. Appears unchanged from yesterday. Exam Limitations: other limitations HEENT head/scalp atraumatic and moist oral mucous membranes Head and Scalp: normocephalic Eyes conjunctivae normal Neck no lymphadenopathy, supple and no JVD Resp normal respiratory effort, no retractions and no use of accessory muscles Cardio regular rate, regular rhythm and no JVD GI normal to inspection, nondistended, normoactive bowel sounds, soft to palpation and non-tender Extremity normal to inspection Skin no rashes or lesions noted, no wounds and skin turgor normal Neuro Neuro Narrative: Unable to assess. Psych affect normal Assessment & Plan Assessment/Plan (1) Urinary tract infection: (2) Complicated urinary tract infection: (3) Multiple sclerosis: PLAN: Day 2 Discharge planning: Current plan is for patient to discharge home when medically ready. 1) dysphagia and worsening weakness. Considering acute MS exacerbation or possible pseudoexacerbation secondary to acute cystitis. SOC consult obtained and recommendations were to obtain MRI, MRI was negative for acute stroke. Patient has an established appointment at the [facility] for Multiple Sclerosis in [place], [place] sometime in December. We will continue with PT/OT/ST eval and therapy while admitted to determine disposition. 2) complicated UTI Patient with a suprapubic catheter. Follows with Dr. Olmos. UA on admission demonstrated yellow cloudy urine with negative nitrites, 500 leukocyte esterase, 25-50 urine WBCs and 0 bacteria. Urine culture from 11/22+ for Klebsiella oxytoca and gram-positive Enterococcus, subsequently initiated on Keflex based off of sensitivities. Urine culture from 11/25 show Klebsiella oxytoca and Enterococcus facealis, both with sensitivities to ampicillin-sulbactam. Will initiate Unasyn and obtain ID consult given recurrent nature of patient's UTIs. 3) history of multiple sclerosis Could be complicating #1. We will continue baclofen and Remeron. 4) JAYY on CKD stage IIIb Currently 1.24, at baseline. Continue gentle fluids, trend BMP. 5) stage I pressure ulcer on the gluteal fold Calmoseptine ordered. DVT prophylaxis - Lovenox. Patient seen by Farhat Montalvo PA-C, under the supervision of Dr. Sam. Time spent on patient care: 10 minutes. Documented by User: Dr. Singh Sam MD 11/26/21 12:10 Objective Data Lab / Micro Data Result Diagrams: 11/26/21 04:52 11/26/21 04:52 Assessment & Plan Addt'l Comments This patient was seen in conjunction with Farhat Montalvo PA-C. I have independently interviewed and examined the patient and reviewed pertinent historical, laboratory, and other data. Please refer to Farhat Montalvo PA-C's note for details of this patient's presentation, findings, and recommendations. I have reviewed Farhat Montalvo PA-C's note and concur with documented findings. In brief, patient is a 66-year-old lady with history of multiple sclerosis with significant debility brought to the ED by her on account of progressive generalized weakness 11/26/2021; patient seen much more interactive compared to previous day. Urine cultures reviewed positive for Enterococcus and Klebsiella. Patient was on Rocephin discontinued started on Unasyn. Consult was also placed to infectious disease per request from patient's as a result of recurrent UTIs. Case was discussed with patient's extensively with all his questions answered Physical Examination: General: Interactive Eyes: Anicteric NECK; supple, normal thyroid, RESPIRATORY: Diminished to auscultation bilaterally, CARDIOVASCULAR: Regular S1 S2, GI: soft, non-tender, normoactive bowel sounds, : No Renal angle tenderness; EXTREMITIES: No edema, no clubbing, NEURO: Awake SKIN: No Rash PSYCH; flat affect Assessment: 1. Acute complicated UTI 2. Multiple sclerosis with significant debility 3. Chronic kidney disease stage IIIb 4. Constipation 4. Dysphagia 6. DVT prophylaxis Recommendations: 1. I have discussed the results of my overview and impressions with the patient 2. Options for management were reviewed Total time spent by myself and the advanced practice practitioner evaluating patient, reviewing labs, subsequent management decisions, discussion with patient's as well as other providers 40 minutes ( 28 of which was spent by myself) Charges/Coding Visit Charges Inpatient E&M: 99531 [facility]s Hosp L2
[2021-11-26] MEDS: Bisacodyl 10 MG Suppository RC (15:34)
--- NOTE | 2021-11-26 17:28 | CON.PCM.ID_ITS ---
Assessment & Plan Assessment/Plan (1) Urinary tract infection: PLAN: Klebs and enterococcus uti. Suprapubic in place. On unasyn, quickly improving. MRI brain was relatively normal. Covid vaccine x3. Cr much improved. No fever, normal wbc here. Plan on 7 days total of abx, can discharge on augmentin 875mg po bid to complete course. Will follow, thank you (2) CKD (chronic kidney disease) stage 4, GFR 15-29 ml/min: HPI Consult Data Date of Consult: 11/26/21 HPI Narrative HPI Narrative: KEN CASON, is a 66 F with MS, suprapubic cath, recurrent uti, presented 11/24 with 2 weeks progressive weakness, decreased PO intake, weakness. Came to ED, admitted, treated for uti, now improving. On unasyn. History obtained from her husand. ROS unobtainable due to mental status. [facility], [facility] Medical History Alcohol use Allergic rhinitis Back pain Bilateral hydronephrosis Blackout Chronic constipation CKD (chronic kidney disease) stage 4, GFR 15-29 ml/min Complicated urinary tract infection Constipation Declining functional status Dental bridge present Depression Difficulty swallowing Endometrial thickening on ultrasound History of echocardiogram History of edema History of wrist fracture Hyperlipidemia Hypertension Indwelling urethral catheter present Insomnia Iron deficiency anemia Loss of hearing Low iron Migraine headache Migraine headache MRSA colonization Multiple sclerosis Multiple sclerosis Muscle spasm Neurogenic bladder Non-smoker OAB (overactive bladder) Pelvic pain Port-A-Cath in place Right hemiparesis Urinary tract infection Uses wheelchair Vitamin D deficiency Wears glasses Home Medications bisacodyl 10 mg RECTAL DAILY 07/01/18 [History Last Taken 11/24/21] acetaminophen 1,000 mg PO Q6H PRN PRN 02/15/19 [History Last Taken 03/25/19] lactulose 60 gm PO QHS 03/25/19 [History Last Taken 11/23/21] baclofen 20 mg PO TID 05/23/19 [History Last Taken 11/24/21] magnesium oxide 300 mg PO QHS 05/23/19 [History Last Taken 11/23/21] melatonin 10 mg PO QHS 05/23/19 [History Last Taken 11/23/21] polysaccharide iron complex 150 mg PO DAILY 05/23/19 [History Last Taken 11/24/21] cxqsxvsdkky-B0-Ubcvckvwy serr 1 tab PO DAILY 11/15/20 [History Last Taken Unknown] jndru-ak-6-kyp-crn-qsojmuj-ast 1 ea PO DAILY 11/15/20 [History Last Taken Unknown] mirtazapine 30 mg PO QHS 11/15/20 [History Last Taken 11/23/21] vitamin B complex-folic acid 1 tab PO DAILY 11/15/20 [History Last Taken 11/24] cholecalciferol (vitamin D3) 50,000 unit PO QMONTH 08/15/21 [History Last Taken 2 Weeks Ago ~11/10/21] donepezil 10 mg PO QHS 08/15/21 [History Last Taken 11/23/21] methylphenidate HCl [Ritalin] 10 mg PO DAILY 08/15/21 [History Last Taken 11/24/21] vomejzw-zznf-hpbik-oreg-capryl 2 cap PO BID 08/15/21 [History Last Taken 11/23/21] loratadine 10 mg tablet 10 mg PO DAILY 11/03/21 [History Last Taken 11/23/21] hydrocodone-acetaminophen 1 tab PO Q4H PRN PRN 3 Days #10 tablet 11/18/21 [Rx Last Taken Unknown] cephalexin 500 mg PO Q12H #200 ml 11/22/21 [Rx Last Taken 11/23/21] cinacalcet 30 mg PO QODAY 11/24/21 [History Last Taken 11/23/21] kxweklnq-ciqqsbj-oqqc-lutein [Centrum Silver Ultra Women's] 1 tab PO DAILY 11/24/21 [History Last Taken 11/23/21] Allergy/AdvReac Type Severity Reaction Status Date / Time ciprofloxacin [From Cipro] AdvReac hypotension Verified 11/24/21 15:33 dextrose 5 % in water AdvReac Other Verified 11/24/21 15:33 [From Zyvox] doxycycline AdvReac hypotension Verified 11/24/21 15:33 levofloxacin [From Levaquin] AdvReac hypotension Verified 11/24/21 15:33 linezolid [From Zyvox] AdvReac Other Verified 11/24/21 15:33 morphine AdvReac hallucinati Verified 11/24/21 15:33 ons piperacillin [From Zosyn] AdvReac hypotension Verified 11/24/21 15:33 sulfamethoxazole AdvReac hypotension Verified 11/24/21 15:33 [From Bactrim] tazobactam [From Zosyn] AdvReac hypotension Verified 11/24/21 15:33 trimethoprim [From Bactrim] AdvReac hypotension Verified 11/24/21 15:33 vancomycin AdvReac developed Verified 11/24/21 15:33 toxic levels Surgical History H/O cervical polypectomy H/O dilation and curettage History of cystoscopy History of esophagogastroduodenoscopy (EGD) History of tonsillectomy and adenoidectomy History of tympanoplasty Hx of hand surgery Hx of shoulder surgery S/P laparoscopic procedure Social History household members: spouse Smoking Status: Never smoker alcohol intake: never substance use type: does not use what type of physical activity do you participate in: none seatbelt use: always do you feel safe at home: Yes 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Physical Exam Const no apparent distress HEENT normocephalic and head/scalp atraumatic Eyes PERRL and EOMs intact bilaterally Neck supple and No nodes Resp normal air movement and clear to auscultation bilaterally Cardio regular rate and regular rhythm GI soft to palpation, non-tender and non-distended Extremity no clubbing, cyanosis or edema Skin no rashes or lesions noted Neuro Neuro Narrative: awake Lab / Micro Data Result Diagrams: 11/26/21 04:52 11/26/21 04:52 Labs: Laboratory Results - last 24 hr 11/26/21 04:52: WBC 8.2, RBC 3.91 L, Hgb 12.0, Hct 37.4, MCV 95.7, MCH 30.7, MCHC 32.1, RDW Std Deviation 51.0 H, RDW Coeff of Niurka 14.5, Plt Count 142 L, MPV 10.5, Immature Gran % (Auto) 0.400, Neut % (Auto) 64.9, Lymph % (Auto) 19.6, [place] % (Auto) 8.1, Eos % (Auto) 6.3 H, Baso % (Auto) 0.7, Absolute Neuts (auto) 5.3, Absolute Lymphs (auto) 1.60, Nucleated RBC % 0 11/26/21 04:52: Sodium 143, Potassium 4.0, Chloride 115 H, Carbon Dioxide 25.0, Anion Gap 3 L, BUN 22 H, Creatinine 1.24 H, Estim Creat Clear Calc 44.31, Est GFR (MDRD) Af Amer 56 L, Est GFR (MDRD) Non-Af 46 L, BUN/Creatinine Ratio 17.7, Glucose 79, Calcium 7.2 L
[2021-11-26] MEDS: MELATONIN 10 MG TABLET PO (20:13)
[2021-11-26] MEDS: Lactulose 20 GM/30 ML UDC 60 GM PO (20:13)
[2021-11-26] MEDS: Magnesium Chloride 64 MG Delay Rel.Tablet 128 MG PO (20:14)
[2021-11-26] MEDS: Mirtazapine 30 MG Tablet PO (20:14)
[2021-11-27] VITALS (9 sets, daily range): BP systolic 129–143; BP diastolic 70–81; PULSE 69–84; RESP 16–18; TEMP 36.7–37.2; O2SAT 93–94
[2021-11-27] MEDS: 0.9% Normal Saline 1,000 ML 100 ML IV ×2 (04:01→18:19)
[2021-11-27 05:46] LABS: Absolute Lymphocyte Count 1.62 X10^3/uL (0.83-4.51); Absolute Neutrophil Count 5.8 X10^3/uL (2.0-7.7); Basophil# 0.08 X10^3/uL; Basophil% 0.9 % (0-1); Eosinophil# 0.59 X10^3/uL; Eosinophils% 6.7 % (0-5); Hematocrit 37.7 % (37-47); Hemoglobin 12.1 g/dL (12.0-15.0); Lymphocyte # 1.62 X10^3/ul (0.83-4.51); Lymphocyte % 18.3 % (19-41); Mean Corp Hgb Conc 32.1 g/dL (32-36); Mean Corpuscular Hgb 30.4 pg (27.0-32.0); Mean Corpuscular Volume 94.7 fL (81-99); Mean Platelet Vol. 10.6 fl (6.2-12.0); Monocyte# 0.71 X10^3/uL; NRBC Flagged by Analyzer 0 % (0-5); Neutrophil # 5.82 X10^3/uL (2.7-7.7); Neutrophil % 65.9 % (47-70); Platelet Count 142 K/mm3 (150-450); RBC Distribution Width CV 14.3 % (11.6-14.6); RBC Distribution Width SD 49.9 fl (35.1-43.9); Red Blood Count 3.98 M/mm3 (4.2-5.4); White Blood Count 8.8 K/mm3 (4.4-11.0)
[2021-11-27 06:22] LABS: Anion Gap 5 (5-15); BUN 15 mg/dL (7-18); BUN/Creat Ratio 14.2 RATIO (10-20); Calcium,Total 6.7 mg/dL (8.5-10.1); Chloride 113 mmol/L (98-107); Creatinine, Serum 1.06 mg/dL (0.55-1.02); EST Glomerular Filtration Rate 55 mL/min (>60); Est Glom Filt Rate - Afr Amer 67 mL/min (>60); Estimated Creatinine Clearance 51.84 ml/min; Glucose 85 mg/dL (74-106); Potassium 3.5 mmol/L (3.5-5.1); Sodium Level 143 mmol/L (136-145)
--- NOTE | 2021-11-27 08:49 | WOUNDNOTE ---
Pt is currently resting. did not awaken at this time. plan to continue with calmoseptine.
[2021-11-27] MEDS: Menthol/Lanolin/Calamine/Znox 113 GM Tube 1 APPLIC TOPICAL ×3 (09:47→20:06)
[2021-11-27] MEDS: Methylphenidate HCl 5 MG Tablet 10 MG PO (09:48)
[2021-11-27] MEDS: Baclofen 10 MG Tablet 20 MG PO ×3 (09:48→20:06)
[2021-11-27] MEDS: Multivitamins,Ther W-Minerals Tablet 1 TABLET PO (09:48)
[2021-11-27] MEDS: Folic Acid/Vitamin B Comp W-C 1 Capsule 1 CAP PO (09:48)
[2021-11-27] MEDS: Cinacalcet HCl 30 MG Tablet PO (09:49)
[2021-11-27] MEDS: Iron Polysaccharide Complex 150 MG CAPSULE PO (09:49)
[2021-11-27] MEDS: NYSTATIN 500,000 UNIT/5 ML UDC 500000 UNIT PO ×4 (09:49→20:05)
--- NOTE | 2021-11-27 09:57 | PCM.PN.ID ---
Physical Exam Narrative Still having weakness, no fever. Const no apparent distress Resp normal air movement and clear to auscultation bilaterally Cardio regular rate and regular rhythm GI non-tender and non-distended Skin no rashes or lesions noted ID ID: Route of nutrition/ use of supplements: [] Nutritional Intake: [] IV Site: [] Maldonado Catheter: [] Assessment & Plan Assessment/Plan (1) Urinary tract infection: PLAN: Klebs and enterococcus uti. Suprapubic in place. On unasyn, quickly improving. MRI brain was relatively normal. Covid vaccine x3. Cr much improved. No fever, normal wbc here. Plan on 7 days total of abx, can discharge on augmentin 875mg po bid to complete course. is concerned about home going arrangements. Will follow (2) CKD (chronic kidney disease) stage 4, GFR 15-29 ml/min:
[2021-11-27] MEDS: Bisacodyl 10 MG Suppository RC (09:58)
--- NOTE | 2021-11-27 10:01 | CASEMGMT ---
Addendum entered by Kelsie Reyes 11/27/21 15:51: asked about picking up PAULY overlay on way home and per Al[place] [facility] lumber driver will have to come to the home and set it up. is not happy about this but per Sallie Fuller to be notified when pt discharging so that lumber driver can be sent out. Kirti, PCU charge, updated to call [facility] [place] of pt discharge, voices understanding. Zachariah RN CM Addendum entered by Kelsei Reyes 11/27/21 12:55: Script for Alternating pressure pad overlay [place] [facility] and wound notes faxed as well. Zachariah RN CM Addendum entered by Kelsie Reyes 11/27/21 11:46: Call back from Sienna at [facility] and she states they can accept pt but cannot do SOC until 12/02/21 and asks for this RN CM to check with so see if that's ok. This RN CM back to room and updated on [facility] and agreeable to 12/02/21 SOC. also updated on overlay and that if CASE MANAGERS orders overlay for pt at d/c that Dr. Carranza will have to follow, voices understanding. also states that he already has call out to Tere's office in regards to fluids. also updated that neuro has been consulted again, voices understanding. voices no further questions/concerns/needs at this time. Zachariah RN CM Original Note: This RN CM to room to discuss discharge plan with pt's . This RN CM spent extensive time in room as has multiple requests. states would like [facility] for PT/OT/ST and call to Sienna at [facility] to see if they can accept pt. declines need for RN several times to this RN CM. This RN CM awaiting return call from [facility]. is asking about air loss overlay for pt's sleep number bed, whether pt can get approved thru insurance. Call to [facility] [place] the air loss is a mattress but there is an alternating pressure pad overlay. Pt is also requesting mouth swabs and other home supplies and this RN CM advised that Medicare does not usually cover these. states 'I have other means to get them.' is also requesting fluids at home and per Dr. Sam/Anthony HERBERT, Dr. Carranza will have to order these for pt and updated, voices understanding. is also requesting another neuro c/s for pt and Anthony HERBERT aware. Zachariah SU CM
--- NOTE | 2021-11-27 11:59 | PCM.DC ---
Discharge Instructions Diet Discharge Diet: - (Mechanical soft food consistency, direct supervision/assistance feeding) Activity Discharge Activity: Return to Normal Activity Dressing / Incision Call your doctor if you observe: Fever of 101 or Higher, Shortness of breath, Dizziness and Chest pain Follow Up Care Test Results: Test results from this visit will be discussed in further detail at your follow-up appointment, if applicable. Discharge Plan Admission Admit Date/Time: 11/24/21 19:58 Primary Reason for Your Visit: UTI, MS with debility Attending Provider: Singh Sam Primary Care Provider: Alexandria Carranza Consulting Providers: Ted Wright Instructions Additional Instructions / Restrictions: Continue follow-up at [facility] for MS. Discharge Orders/Prescriptions Prescriptions: New nystatin 100,000 unit/mL Suspension 500,000 unit PO 4X/DAY 5 Days Qty: 100 RF: 0 amoxicillin-pot clavulanate 875-125 mg tablet 1 tab PO BID 5 Days Qty: 10 RF: 0 Continued loratadine [Claritin] 10 mg tablet 10 mg PO DAILY RF: 0 bisacodyl 10 MG suppository 10 mg RECTAL DAILY RF: 0 acetaminophen 500 MG tablet 1,000 mg PO Q6H PRN PRN (Reason: Pain) RF: 0 lactulose 20 GM/30 ML solution 60 gm PO QHS RF: 0 polysaccharide iron complex 150 MG capsule 150 mg PO DAILY RF: 0 baclofen 20 MG tablet 20 mg PO TID RF: 0 melatonin 5 MG capsule 10 mg PO QHS RF: 0 magnesium oxide 400 MG tablet 300 mg PO QHS RF: 0 mirtazapine 15 MG tablet 30 mg PO QHS RF: 0 hdfepqlptgv-W3-Tayhairar serr 1 EACH tablet 1 tab PO DAILY RF: 0 vitamin B complex-folic acid 0.4 MG tablet 1 tab PO DAILY RF: 0 kzidd-dp-7-rsm-dha-glygsaw-ast 1 EACH capsule 1 ea PO DAILY RF: 0 methylphenidate HCl [Ritalin] 10 mg Tablet 10 mg PO DAILY RF: 0 donepezil 10 mg Tablet 10 mg PO QHS RF: 0 epekktm-tapz-qegrz-oreg-capryl 100 mg-150 mg- 50 mg-150 mg Capsule 2 cap PO BID RF: 0 cholecalciferol (vitamin D3) 1,250 mcg (50,000 unit) capsule 50,000 unit PO QMONTH RF: 0 hydrocodone-acetaminophen 1 TABLET tablet 1 tab PO Q4H PRN PRN (Reason: Pain) 3 Days Qty: 10 RF: 0 tuhfyfmm-jlsosjw-puot-lutein Tablet 1 tab PO DAILY RF: 0 cinacalcet 30 mg tablet 30 mg PO QODAY RF: 0 Discontinued cephalexin 250 mg/5 mL suspension for reconstitution 500 mg PO Q12H Qty: 200 RF: 0 Referrals / Follow Up: Alexandria Carranza MD [Primary Care Provider] - Within 1 Week Mikal Lenz MD [STAFF PHYSICIAN] - Within 1 Month Disposition Disposition (needs filled in before D/C Order can be placed): Home Health Service
--- NOTE | 2021-11-27 12:20 | PCM.DC.SUM ---
Documented by User: Kailyn Red NP, [employer] 11/27/21 12:36 Providers Date of Admission: 11/24/21 Date of Discharge: 11/27/21 Primary Care Physician: Dr. Alexandria Carranza MD Consultations 11/25/21 07:00 Consult: Onc/Wound/virtualization architect Routine Comment: 11/26/21 09:57 Consult: Infectious Disease Routine Consulting Provider: Ted Wright Reason for Consult: recurrent utis;; family request EMERGENT Consult: No MD Notified: Yes Date Notified: 11/26/21 Time Notified: 10:14 Method of Notification: Text Reason For Visit: ACUTE EXACERBATION OF MULTIPLE SCLEROSIS Diagnosis Discharge Diagnosis (1) Urinary tract infection: Status: Acute Code(s): N39.0 - Urinary tract infection, site not specified (2) CKD (chronic kidney disease) stage 4, GFR 15-29 ml/min: Status: Chronic Code(s): N18.4 - Chronic kidney disease, stage 4 (severe) Medications at Discharge Home Medications bisacodyl 10 mg RECTAL DAILY 07/01/18 acetaminophen 1,000 mg PO Q6H PRN PRN 02/15/19 lactulose 60 gm PO QHS 03/25/19 baclofen 20 mg PO TID 05/23/19 magnesium oxide 300 mg PO QHS 05/23/19 melatonin 10 mg PO QHS 05/23/19 polysaccharide iron complex 150 mg PO DAILY 05/23/19 vawdcmmnpyt-I4-Rufglzxll serr 1 tab PO DAILY 11/15/20 cafmb-sk-4-tww-csj-gwnagna-ast 1 ea PO DAILY 11/15/20 mirtazapine 30 mg PO QHS 11/15/20 vitamin B complex-folic acid 1 tab PO DAILY 11/15/20 cholecalciferol (vitamin D3) 50,000 unit PO QMONTH 08/15/21 donepezil 10 mg PO QHS 08/15/21 methylphenidate HCl [Ritalin] 10 mg PO DAILY 08/15/21 nubferi-tsfd-czdvr-oreg-capryl 2 cap PO BID 08/15/21 loratadine 10 mg tablet 10 mg PO DAILY 11/03/21 hydrocodone-acetaminophen 1 tab PO Q4H PRN PRN 3 Days #10 tablet 11/18/21 cinacalcet 30 mg PO QODAY 11/24/21 zwznmrnm-pkffiih-yrze-lutein 1 tab PO DAILY 11/24/21 amoxicillin-pot clavulanate 1 tab PO BID 5 Days #10 tab 11/27/21 nystatin 500,000 unit PO 4X/DAY 5 Days #100 ml 11/27/21 Hospital Course Summary of Care Provided Hospital Course: Patient is a 66-year-old female admitted 11/24/21 due to progressive weakness for 2 weeks. 1. Acute complicated UTI in the setting of chronic suprapubic catheter-urine culture growing Klebsiella and Enterococcus. IV Unasyn during admission. ID consulted. Continue Augmentin at discharge to complete course. Follow-up with PCP in 1 week. 2. Oral thrush-continue oral nystatin to complete course. 3. MS with chronic right hemiparesis/debility, chronic dysphagia-Home health at discharge with PT/OT/ST. Continue outpatient follow-up with neurology/MS clinic. requesting repeat neurology consult due to increased debility during admission. Repeat consult pending and will discuss with [facility] neurology prior to discharge. 4. Acute kidney injury on chronic kidney disease stage IIIb-acute kidney injury resolved with IV fluids. Patient's requesting intermittent IV fluids as an outpatient. Discussed with patient and that they will need to further discuss this with PCP who may order fluids through home health at their discretion. 5. Stage I pressure ulcer gluteal fold-present on admission. Q2 hour turns. Rx for pressure reducing mattress per request. 6. Chronic constipation-continue home bowel regimen. Patient seen and examined prior to discharge. Physical assessment as noted below. Patient is stable for discharge with follow up recommendations as noted above. This patient was seen by MARTHA Shannon under the supervision of Dr. Sam. Physical Exam Const alert, oriented x3 and no apparent distress Orientation / Consciousness: awake, oriented to person, oriented to place and oriented to time HEENT normocephalic and moist oral mucous membranes Eyes PERRL, EOMs intact bilaterally and conjunctivae normal Neck no lymphadenopathy Resp normal respiratory effort and clear to auscultation bilaterally Cardio regular rate, regular rhythm and no murmurs Peripheral Pulses: pulses 2+ throughout GI normal to inspection, nondistended, normoactive bowel sounds, non-tender and non-distended Extremity normal to inspection Skin no rashes or lesions noted Lesions: no lesions Rashes: no rashes Trauma: no lacerations or abrasions Neuro CN's II-XII intact bilaterally, no focal motor deficits, no sensory deficits noted and deep tendon reflexes 2+ bilaterally Neuro Narrative: Global diffuse weakness, right greater than left related to progressive MS. Psych mental status grossly normal Mood & Affect: flat affect Weight / BMI Weight Weight: 138 lb 10.732 oz Body Mass Index (BMI) 21.5 ABG / Lab / Microbiology Data Result Diagrams: 11/27/21 05:15 11/27/21 05:15 Laboratory: Laboratory Results - last 24 hr 11/27/21 05:15: WBC 8.8, RBC 3.98 L, Hgb 12.1, Hct 37.7, MCV 94.7, MCH 30.4, MCHC 32.1, RDW Std Deviation 49.9 H, RDW Coeff of Niurka 14.3, Plt Count 142 L, MPV 10.6, Immature Gran % (Auto) 0.200, Neut % (Auto) 65.9, Lymph % (Auto) 18.3 L, Roberts % (Auto) 8.0, Eos % (Auto) 6.7 H, Baso % (Auto) 0.9, Absolute Neuts (auto) 5.8, Absolute Lymphs (auto) 1.62, Nucleated RBC % 0 11/27/21 05:15: Sodium 143, Potassium 3.5, Chloride 113 H, Carbon Dioxide 25.0, Anion Gap 5, BUN 15, Creatinine 1.06 H, Estim Creat Clear Calc 51.84, Est GFR (MDRD) Af Amer 67, Est GFR (MDRD) Non-Af 55 L, BUN/Creatinine Ratio 14.2, Glucose 85, Calcium 6.7 L D/C Instructions Discharge Diet: - (Mechanical soft food consistency, direct supervision/assistance feeding) Call your doctor if you observe: Fever of 101 or Higher, Shortness of breath, Dizziness and Chest pain Meaningful Use Info Meaningful Use Diagnoses (Choose all that apply): None applicable Discharge Plan Admission Admit Date/Time: 11/24/21 19:58 Primary Reason for Your Visit: UTI, MS with debility Attending Provider: Singh Sam Primary Care Provider: Alexandria Carranza Consulting Providers: Ted Wright Instructions Additional Instructions / Restrictions: Continue follow-up at [facility] for MS. Discharge Orders/Prescriptions Prescriptions: New nystatin 100,000 unit/mL Suspension 500,000 unit PO 4X/DAY 5 Days Qty: 100 RF: 0 amoxicillin-pot clavulanate 875-125 mg tablet 1 tab PO BID 5 Days Qty: 10 RF: 0 Continued loratadine [Claritin] 10 mg tablet 10 mg PO DAILY RF: 0 bisacodyl 10 MG suppository 10 mg RECTAL DAILY RF: 0 acetaminophen 500 MG tablet 1,000 mg PO Q6H PRN PRN (Reason: Pain) RF: 0 lactulose 20 GM/30 ML solution 60 gm PO QHS RF: 0 polysaccharide iron complex 150 MG capsule 150 mg PO DAILY RF: 0 baclofen 20 MG tablet 20 mg PO TID RF: 0 melatonin 5 MG capsule 10 mg PO QHS RF: 0 magnesium oxide 400 MG tablet 300 mg PO QHS RF: 0 mirtazapine 15 MG tablet 30 mg PO QHS RF: 0 clqevgqqyox-S7-Tltgptmri serr 1 EACH tablet 1 tab PO DAILY RF: 0 vitamin B complex-folic acid 0.4 MG tablet 1 tab PO DAILY RF: 0 fwheq-ap-4-zgy-zil-glyuwnb-ast 1 EACH capsule 1 ea PO DAILY RF: 0 methylphenidate HCl [Ritalin] 10 mg Tablet 10 mg PO DAILY RF: 0 donepezil 10 mg Tablet 10 mg PO QHS RF: 0 oevjnsh-eicy-inmcp-oreg-capryl 100 mg-150 mg- 50 mg-150 mg Capsule 2 cap PO BID RF: 0 cholecalciferol (vitamin D3) 1,250 mcg (50,000 unit) capsule 50,000 unit PO QMONTH RF: 0 hydrocodone-acetaminophen 1 TABLET tablet 1 tab PO Q4H PRN PRN (Reason: Pain) 3 Days Qty: 10 RF: 0 ipbbilmo-hiesgsv-pexb-lutein Tablet 1 tab PO DAILY RF: 0 cinacalcet 30 mg tablet 30 mg PO QODAY RF: 0 Discontinued cephalexin 250 mg/5 mL suspension for reconstitution 500 mg PO Q12H Qty: 200 RF: 0 Referrals / Follow Up: Alexandria Carranza MD [Primary Care Provider] - Within 1 Week Mikal Lenz MD [STAFF PHYSICIAN] - Within 1 Month Disposition Disposition (needs filled in before D/C Order can be placed): Home Health Service Documented by User: Dr. Singh Sam MD 11/27/21 12:56 Providers Date of Admission: 11/24/21 Reason For Visit: ACUTE EXACERBATION OF MULTIPLE SCLEROSIS Medications at Discharge Home Medications bisacodyl 10 mg RECTAL DAILY 07/01/18 acetaminophen 1,000 mg PO Q6H PRN PRN 02/15/19 lactulose 60 gm PO QHS 03/25/19 baclofen 20 mg PO TID 05/23/19 magnesium oxide 300 mg PO QHS 05/23/19 melatonin 10 mg PO QHS 05/23/19 polysaccharide iron complex 150 mg PO DAILY 05/23/19 aqxieosuxwc-P6-Jmgcqhzgo serr 1 tab PO DAILY 11/15/20 zlkje-jj-4-pfk-twy-rktfyyb-ast 1 ea PO DAILY 11/15/20 mirtazapine 30 mg PO QHS 11/15/20 vitamin B complex-folic acid 1 tab PO DAILY 11/15/20 cholecalciferol (vitamin D3) 50,000 unit PO QMONTH 08/15/21 donepezil 10 mg PO QHS 08/15/21 methylphenidate HCl [Ritalin] 10 mg PO DAILY 08/15/21 tdkvpey-nbuo-xxtos-oreg-capryl 2 cap PO BID 08/15/21 loratadine 10 mg tablet 10 mg PO DAILY 11/03/21 hydrocodone-acetaminophen 1 tab PO Q4H PRN PRN 3 Days #10 tablet 11/18/21 cinacalcet 30 mg PO QODAY 11/24/21 lsjfxhsi-gcmatqn-osuq-lutein 1 tab PO DAILY 11/24/21 amoxicillin-pot clavulanate 1 tab PO BID 5 Days #10 tab 11/27/21 nystatin 500,000 unit PO 4X/DAY 5 Days #100 ml 11/27/21 Hospital Course Operations None Summary of Care Provided Minutes Spent on Discharge: 40 Hospital Course: This patient was seen in conjunction with MARTHA Shannon . I have independently interviewed and examined the patient and reviewed pertinent historical, laboratory, and other data. Please refer to MARTHA Shannon note for details of this patient's presentation, findings, and recommendations. I have reviewed MARTHA Shannon note and concur with documented findings. In brief, patient is a 66-year-old lady with history of multiple sclerosis with significant debility brought to the ED by her on account of progressive generalized weakness 11/26/2021; patient seen much more interactive compared to previous day. Urine cultures reviewed positive for Enterococcus and Klebsiella. Patient was on Rocephin discontinued started on Unasyn. Consult was also placed to infectious disease per request from patient's as a result of recurrent UTIs. Case was discussed with patient's extensively with all his questions answered 11/27/2021; patient was deemed stable for discharge. Did go with recommendations from infectious disease. Physical Examination: General: Interactive Eyes: Anicteric NECK; supple, normal thyroid, RESPIRATORY: Diminished to auscultation bilaterally, CARDIOVASCULAR: Regular S1 S2, GI: soft, non-tender, normoactive bowel sounds, : No Renal angle tenderness; EXTREMITIES: No edema, no clubbing, NEURO: Awake SKIN: No Rash PSYCH; flat affect Assessment: 1. Acute complicated UTI 2. Multiple sclerosis with significant debility 3. Chronic kidney disease stage IIIb 4. Constipation 4. Dysphagia 6. DVT prophylaxis Hospital course; as documented above Total time spent by myself and the advanced practice practitioner evaluating patient, reviewing labs, subsequent management decisions, discussion with patient's as well as other providers 40 minutes ( 28 of which was spent by myself) ABG / Lab / Microbiology Data Result Diagrams: 11/27/21 05:15 11/27/21 05:15 Discharge Plan Admission Admit Date/Time: 11/24/21 19:58 Primary Reason for Your Visit: UTI, MS with debility Attending Provider: Singh aSm Primary Care Provider: Alexandria Carranza Consulting Providers: Ted Wright Instructions Additional Instructions / Restrictions: Continue follow-up at [facility] for MS. Discharge Orders/Prescriptions Prescriptions: New nystatin 100,000 unit/mL Suspension 500,000 unit PO 4X/DAY 5 Days Qty: 100 RF: 0 amoxicillin-pot clavulanate 875-125 mg tablet 1 tab PO BID 5 Days Qty: 10 RF: 0 Continued loratadine [Claritin] 10 mg tablet 10 mg PO DAILY RF: 0 bisacodyl 10 MG suppository 10 mg RECTAL DAILY RF: 0 acetaminophen 500 MG tablet 1,000 mg PO Q6H PRN PRN (Reason: Pain) RF: 0 lactulose 20 GM/30 ML solution 60 gm PO QHS RF: 0 polysaccharide iron complex 150 MG capsule 150 mg PO DAILY RF: 0 baclofen 20 MG tablet 20 mg PO TID RF: 0 melatonin 5 MG capsule 10 mg PO QHS RF: 0 magnesium oxide 400 MG tablet 300 mg PO QHS RF: 0 mirtazapine 15 MG tablet 30 mg PO QHS RF: 0 vkwhjhrcinp-W8-Ngremhuki serr 1 EACH tablet 1 tab PO DAILY RF: 0 vitamin B complex-folic acid 0.4 MG tablet 1 tab PO DAILY RF: 0 xhmnf-ht-8-dgd-qfg-icjjjfw-ast 1 EACH capsule 1 ea PO DAILY RF: 0 methylphenidate HCl [Ritalin] 10 mg Tablet 10 mg PO DAILY RF: 0 donepezil 10 mg Tablet 10 mg PO QHS RF: 0 fyzemjt-usxq-gqafo-oreg-capryl 100 mg-150 mg- 50 mg-150 mg Capsule 2 cap PO BID RF: 0 cholecalciferol (vitamin D3) 1,250 mcg (50,000 unit) capsule 50,000 unit PO QMONTH RF: 0 hydrocodone-acetaminophen 1 TABLET tablet 1 tab PO Q4H PRN PRN (Reason: Pain) 3 Days Qty: 10 RF: 0 lvrlcnaj-fmgxrvz-sjhv-lutein Tablet 1 tab PO DAILY RF: 0 cinacalcet 30 mg tablet 30 mg PO QODAY RF: 0 Discontinued cephalexin 250 mg/5 mL suspension for reconstitution 500 mg PO Q12H Qty: 200 RF: 0 Referrals / Follow Up: Alexandria Carranza MD [Primary Care Provider] - Within 1 Week Mikal Lenz MD [STAFF PHYSICIAN] - Within 1 Month Disposition Disposition (needs filled in before D/C Order can be placed): Home Health Service Charges/Coding Visit Charges Inpatient E&M: 37688 Disch Hosp Hospital Course Consultations Consultations: Consultations 11/25/21 07:00 Consult: Onc/Wound/virtualization architect Routine Comment: 11/26/21 09:57 Consult: Infectious Disease Routine Consulting Provider: Adriana,Ted Reason for Consult: recurrent utis;; family request EMERGENT Consult: No MD Notified: Yes Date Notified: 11/26/21 Time Notified: 10:14 Method of Notification: Text Operations None
--- NOTE | 2021-11-27 12:59 | MRI_ITS ---
EXAM: MR HEAD WITH INTRAVENOUS CONTRAST CLINICAL INDICATION: MS -- MS with acute debility TECHNIQUE: Multiplanar and multisequence MR images of the brain were obtained with intravenous contrast. This report was created using [employer] report generation technology. CONTRAST: IV Yes YES COMPARISON: Nov 25 2021 10:01am FINDINGS: BRAIN AND EXTRA-AXIAL SPACES: Unremarkable. No intra- or extra-axial hemorrhage. No evidence of acute infarct. No intracranial mass or mass effect. There is preservation of the rogers/white matter interface. Posterior fossa structures are unremarkable. Ventricles are appropriate for age. No hydrocephalus. Basal cisterns are patent. SELLA: Unremarkable. Normal sella turcica, pituitary gland, infundibular stalk, optic chiasm and hypothalamus. AUDITORY SYSTEM: Unremarkable. The internal auditory canals are patent. BONES/JOINTS: Unremarkable. No discrete lytic or blastic abnormalities. SINUSES: Unremarkable as visualized. Clear. MASTOID AIR CELLS: Unremarkable as visualized. Clear. ORBITS: Unremarkable as visualized. Both globes, extraocular muscles, optic nerves and retrobulbar fat appear unremarkable. VASCULATURE: There are no enhancing lesions noted. If the patient does have a demyelinating process, there are no active plaques. MRI/Brain WITH Contrast IMPRESSION: There are no enhancing lesions noted. If the patient does have a demyelinating process, there are no active plaques. Electronically Signed: Peter Raymundo MD at 16:01 EST Reading Location ID and State: [facility] / [place] , Service support ,
--- NOTE | 2021-11-27 13:01 | MRI_ITS ---
STUDY: MRI CERVICAL SPINE WITH AND WITHOUT CONTRAST REASON FOR EXAM: Female, 66 years old. MS -- MS with acute debility TECHNIQUE: Standardized fat and water weighted pulse sequences were obtained in the sagittal and axial with and without I.V. administration of 12 ml of Dotarem contrast material. COMPARISON: None FINDINGS: Normal foramen magnum and brainstem-cervical cord junction. Normal craniovertebral junction. Normal anterior atlantoaxial articulation. Normal odontoid process. Normal cervical lordosis. Normal vertebral bodies and posterior osseous elements. C2-3: Normal endplates. Normal disc height and morphology. Normal central canal and intervertebral neuroforamina. C3-4: Normal endplates. Normal disc height and morphology. Normal central canal and intervertebral neuroforamina. C4-5: Loss of intervertebral disc height. There is endplate spondylosis of the vertebral body. Severe narrowing of the right intervertebral neuroforamina. There is bilateral facet arthropathy. Posterior disc bulge. No spinal stenosis. C5-6: Loss of intervertebral disc height. There is endplate spondylosis of the vertebral body. Normal central canal and intervertebral neuroforamina. There is bilateral facet arthropathy. C6-7: Loss of intervertebral disc height. There is endplate spondylosis of the vertebral body. Narrowing of the bilateral intervertebral neuroforamina. There is bilateral facet arthropathy. Posterior disc herniation. Narrowing the lateral recess. Mild compression of the spinal cord. No significant spinal stenosis. C7-T1: Normal endplates. Normal disc height and morphology. Normal central canal and intervertebral neuroforamina. Normal visualized soft tissue structures. IMPRESSION: (NOT LISTED IN ORDER OF SIGNIFICANCE) Multilevel degenerative changes, as described above. C6-7: Narrowing of the bilateral intervertebral neuroforamina. Posterior disc herniation. Narrowing the lateral recess. Mild compression of the spinal cord. No significant spinal stenosis. There are no enhancing lesions noted. If the patient does have a demyelinating process, there are no active plaques. Electronically Signed: Peter Raymundo MD at 16:15 EST , MRI/Spine Cervical W/WO Contrast
[2021-11-27 13:19] LABS: AST(SGOT) 53 U/L (15-37); Alanine Aminotransfer ALT/SGPT 91 U/L (13-56); Albumin, Serum 2.5 g/dL (3.2-5.0); Alkaline Phosphatase 85 U/L (45-117); Bilirubin, Direct 0.06 mg/dL (0.00-0.30); Globulin 3.8 g/dL (2.2-4.2); Protein, Total 6.3 g/dL (6.4-8.2)
--- NOTE | 2021-11-27 15:28 | CPS ---
EEG machine is currently not working. de icer element winder aware.
--- NOTE | 2021-11-27 16:56 | NURSING ---
Called [facility] with time of discharge for delivery of mattress. Shani states she does not have all the documents. Discharge summary and instructions faxed to [facility].
--- NOTE | 2021-11-27 17:13 | NURSING ---
upset not wanting patient discharged. Wants neurologist to review MRI. States that special mattress can not be delivered tonight and she needs it before discharge. Call out to [facility].
--- NOTE | 2021-11-27 17:27 | NURSING ---
Phoned [facility] regarding delivery of mattress. [facility] states they normally do not deliver mattresses after 1700.
--- NOTE | 2021-11-27 18:18 | PN.HOSP_ITS ---
Documented by User: Kailyn Red NP, RATE QUOTING OPERATOR-C 11/27/21 18:23 Subjective Subjective Patient seen and examined this morning. Patient alert and participating in conversation. at bedside. Plan for discharge home however strongly requested overnight stay so he is able to prepare for her to return home. Objective Data Objective Data Vital Signs: Vital Signs Temp Pulse Resp BP Pulse Ox 98.0 F 76 18 135/70 H 94 11/27/21 16:28 11/27/21 16:28 11/27/21 16:28 11/27/21 16:28 11/27/21 16:28 Oxygen Delivery Method Room Air Weight: 138 lb 10.732 oz Body Mass Index (BMI) 21.5 Intake & Output: Intake and Output for Last 24 Hours 11/25/21 11/26/21 11/27/21 23:59 23:59 23:59 Intake Total 2146.67 / 2146.67 2665.67 / 2745.67 1991.00 / 1991.00 Output Total 3050 / 3325 1025 / 2075 1150 / 1150 Balance -903.33 / -1178.33 1640.67 / 670.67 841.00 / 841.00 Lab / Micro Data Result Diagrams: 11/27/21 05:15 11/27/21 05:15 Labs: Laboratory Results - last 24 hr 11/27/21 05:15: WBC 8.8, RBC 3.98 L, Hgb 12.1, Hct 37.7, MCV 94.7, MCH 30.4, MCHC 32.1, RDW Std Deviation 49.9 H, RDW Coeff of Niurka 14.3, Plt Count 142 L, MPV 10.6, Immature Gran % (Auto) 0.200, Neut % (Auto) 65.9, Lymph % (Auto) 18.3 L, Tyrrell % (Auto) 8.0, Eos % (Auto) 6.7 H, Baso % (Auto) 0.9, Absolute Neuts (auto) 5.8, Absolute Lymphs (auto) 1.62, Nucleated RBC % 0 11/27/21 05:15: Sodium 143, Potassium 3.5, Chloride 113 H, Carbon Dioxide 25.0, Anion Gap 5, BUN 15, Creatinine 1.06 H, Estim Creat Clear Calc 51.84, Est GFR (MDRD) Af Amer 67, Est GFR (MDRD) Non-Af 55 L, BUN/Creatinine Ratio 14.2, Glucose 85, Calcium 6.7 L 11/27/21 05:15: Total Bilirubin 0.20, Direct Bilirubin 0.06, AST 53 H, ALT 91 H, Alkaline Phosphatase 85, Total Protein 6.3 L, Albumin 2.5 L, Globulin 3.8 Radiography Diagnostic Testing: Radiology Impression Brain MRI 11/27/21 12:59 IMPRESSION: There are no enhancing lesions noted. If the patient does have a demyelinating process, there are no active plaques. Electronically Signed: Peter Raymundo MD at 16:01 EST , Cervical Spine MRI 11/27/21 13:01 Physical Exam Const alert, oriented x3 and no apparent distress Orientation / Consciousness: awake, oriented to person, oriented to place and oriented to time HEENT normocephalic and moist oral mucous membranes Eyes PERRL, EOMs intact bilaterally and conjunctivae normal Neck no lymphadenopathy Resp normal respiratory effort and clear to auscultation bilaterally Cardio regular rate, regular rhythm and no murmurs Peripheral Pulses: pulses 2+ throughout GI normal to inspection, nondistended, normoactive bowel sounds, non-tender and non-distended Extremity normal to inspection Skin no rashes or lesions noted Lesions: no lesions Rashes: no rashes Trauma: no lacerations or abrasions Neuro CN's II-XII intact bilaterally, no focal motor deficits, no sensory deficits noted and deep tendon reflexes 2+ bilaterally Neuro Narrative: Global diffuse weakness, right greater than left related to progressive MS. Psych mental status grossly normal and affect normal A/P Addt'l Comments Addt'l Comments 1. Acute complicated UTI in the setting of chronic suprapubic catheter-urine culture growing Klebsiella and Enterococcus. IV Unasyn. ID consulted. Continue Augmentin at discharge to complete course. 2. Oral thrush-continue oral nystatin to complete course. 3. MS with chronic right hemiparesis/debility, chronic dysphagia-Home health at discharge with PT/OT/ST. Continue outpatient follow-up with neurology/MS clinic. requesting repeat neurology consult due to increased debility during admission. Repeat neurology consult obtained who recommends MRI of brain with contrast and cervical spine MRI with and without contrast. Both images without enhancing lesions. No active plaques. May consider outpatient EEG however no overt signs of seizure activity. 4. Acute kidney injury on chronic kidney disease stage IIIb-acute kidney injury resolved with IV fluids. Patient's requesting intermittent IV fluids as an outpatient. Discussed with patient and that they will need to further discuss this with PCP who may order fluids through home health at their discretion. 5. Stage I pressure ulcer gluteal fold-present on admission. Q2 hour turns. Rx for pressure reducing mattress per request. 6. Chronic constipation-continue home bowel regimen. DVT prophylaxis- Lovenox sc This patient was seen by MARTHA Shannon under the supervision of Dr. Sam. Documented by User: Dr. iSngh Sam MD 11/28/21 11:18 Objective Data Lab / Micro Data Result Diagrams: 11/27/21 05:15 11/27/21 05:15 Charges/Coding Visit Charges Inpatient E&M: 53369 Subs Hosp L2 A/P Addt'l Comments Addt'l Comments This patient was seen in conjunction with MARTHA Shannon . I have independently interviewed and examined the patient and reviewed pertinent his torical, laboratory, and other data. Please refer to MARTHA Shannon note for details of this patient's presentation, findings, and recommendations. I have reviewed MARTHA Shannon note and concur with documented findings. In brief, patient is a 66-year-old lady with history of multiple sclerosis with significant debility brought to the ED by her on account of progressive generalized weakness 11/26/2021; patient seen much more interactive compared to previous day. Urine cultures reviewed positive for Enterococcus and Klebsiella. Patient was on Rocephin discontinued started on Unasyn. Consult was also placed to infectious disease per request from patient's as a result of recurrent UTIs. Case was discussed with patient's extensively with all his questions answered 11/27/2021; patient was deemed stable for discharge. Did go with recommendations from infectious disease. Patient has been however declined to take patient home with the reason that he was not ready. Patient therefore had to be kept for 1 additional night Physical Examination: General: Interactive Eyes: Anicteric NECK; supple, normal thyroid, RESPIRATORY: Diminished to auscultation bilaterally, CARDIOVASCULAR: Regular S1 S2, GI: soft, non-tender, normoactive bowel sounds, : No Renal angle tenderness; EXTREMITIES: No edema, no clubbing, NEURO: Awake SKIN: No Rash PSYCH; flat affect Assessment: 1. Acute complicated UTI 2. Multiple sclerosis with significant debility 3. Chronic kidney disease stage IIIb 4. Constipation 4. Dysphagia 6. DVT prophylaxis Hospital course; as documented above Total time spent by myself and the advanced practice practitioner evaluating patient, reviewing labs, subsequent management decisions, discussion with patient's as well as other providers 40 minutes ( 28 of which was spent by myself)
--- NOTE | 2021-11-27 18:57 | NURSING ---
Pt discharge canceled, VSA late, meds late today.
[2021-11-27] MEDS: Lactulose 20 GM/30 ML UDC 60 GM PO (20:05)
[2021-11-27] MEDS: Magnesium Chloride 64 MG Delay Rel.Tablet 128 MG PO (20:05)
[2021-11-27] MEDS: Mirtazapine 30 MG Tablet PO (20:06)
[2021-11-27] MEDS: MELATONIN 10 MG TABLET PO (20:06)
[2021-11-28 02:00] VITALS: BP 136/78; PULSE 80; RESP 16; TEMP 36.6; O2SAT 93
[2021-11-28 04:00] VITALS: PULSE 74
[2021-11-28] MEDS: Menthol/Lanolin/Calamine/Znox 113 GM Tube 1 APPLIC TOPICAL (05:59)
[2021-11-28] MEDS: Baclofen 10 MG Tablet 20 MG PO (05:59)
[2021-11-28 07:00] VITALS: PULSE 64
[2021-11-28 08:00] VITALS: BP 133/83; PULSE 67; RESP 16; TEMP 36.4; O2SAT 96
[2021-11-28] MEDS: Methylphenidate HCl 5 MG Tablet 10 MG PO (08:11)
[2021-11-28] MEDS: Multivitamins,Ther W-Minerals Tablet 1 TABLET PO (08:12)
[2021-11-28] MEDS: Iron Polysaccharide Complex 150 MG CAPSULE PO (08:12)
[2021-11-28] MEDS: NYSTATIN 500,000 UNIT/5 ML UDC 500000 UNIT PO (08:12)
[2021-11-28] MEDS: Folic Acid/Vitamin B Comp W-C 1 Capsule 1 CAP PO (08:12)
--- NOTE | 2021-11-28 08:20 | CASEMGMT ---
[place] [facility] [place] be able to get PAULY overlay set up last pm but according to notes, nursing was told that [facility] [place] not [place] after 1700 when they called. Alina states she cdl driver was aware that he would need to do set up after 1700. Alina states will call at this time and get set up for pt d/c today. This RN CM also received message from Sienna at [facility] that they can now do SOC on 12/01/21 and was agreeable. CM to follow. Zachariah SU CM
--- NOTE | 2021-11-28 09:58 | PCM.DC.SUM ---
Documented by User: Kailyn Red NP, EXECUTIVE ADMINISTRATIVE ASST-C 11/28/21 10:21 Providers Date of Admission: 11/24/21 Date of Discharge: 11/28/21 Primary Care Physician: Dr. Alexandria Carranza MD Consultations 11/25/21 07:00 Consult: Onc/Wound/metallurgical laboratory assistant Routine Comment: 11/26/21 09:57 Consult: Infectious Disease Routine Consulting Provider: Ted Wright Reason for Consult: recurrent utis;; family request EMERGENT Consult: No MD Notified: Yes Date Notified: 11/26/21 Time Notified: 10:14 Method of Notification: Text Reason For Visit: ACUTE EXACERBATION OF MULTIPLE SCLEROSIS Diagnosis Discharge Diagnosis (1) Urinary tract infection: Status: Acute Code(s): N39.0 - Urinary tract infection, site not specified (2) CKD (chronic kidney disease) stage 4, GFR 15-29 ml/min: Status: Chronic Code(s): N18.4 - Chronic kidney disease, stage 4 (severe) Medications at Discharge Home Medications bisacodyl 10 mg RECTAL DAILY 07/01/18 acetaminophen 1,000 mg PO Q6H PRN PRN 02/15/19 lactulose 60 gm PO QHS 03/25/19 baclofen 20 mg PO TID 05/23/19 magnesium oxide 300 mg PO QHS 05/23/19 melatonin 10 mg PO QHS 05/23/19 polysaccharide iron complex 150 mg PO DAILY 05/23/19 fbwqkxndbbt-C1-Ezqckgwts serr 1 tab PO DAILY 11/15/20 fsyme-mo-6-tnb-auo-phxelua-ast 1 ea PO DAILY 11/15/20 mirtazapine 30 mg PO QHS 11/15/20 vitamin B complex-folic acid 1 tab PO DAILY 11/15/20 cholecalciferol (vitamin D3) 50,000 unit PO QMONTH 08/15/21 donepezil 10 mg PO QHS 08/15/21 methylphenidate HCl [Ritalin] 10 mg PO DAILY 08/15/21 yqzwqcl-bhix-tgnll-oreg-capryl 2 cap PO BID 08/15/21 loratadine 10 mg tablet 10 mg PO DAILY 11/03/21 hydrocodone-acetaminophen 1 tab PO Q4H PRN PRN 3 Days #10 tablet 11/18/21 cinacalcet 30 mg PO QODAY 11/24/21 ddmmqkjx-fjmhsgd-gnbm-lutein 1 tab PO DAILY 11/24/21 amoxicillin-pot clavulanate 1 tab PO BID 5 Days #10 tab 11/27/21 nystatin 500,000 unit PO 4X/DAY 5 Days #100 ml 11/27/21 Hospital Course Summary of Care Provided Hospital Course: Patient is a 66-year-old female admitted 11/24/21 due to progressive weakness for 2 weeks. 1. Acute complicated UTI in the setting of chronic suprapubic catheter-urine culture grew Klebsiella and Enterococcus. IV Unasyn during admission. ID consulted. Continue Augmentin at discharge to complete course. Follow-up with PCP in 1 week. 2. Oral thrush-continue oral nystatin to complete course. 3. MS with chronic right hemiparesis/debility, chronic dysphagia-Home health at discharge with PT/OT/ST. Continue outpatient follow-up with neurology/MS clinic. requesting repeat neurology consult due to increased debility during admission. Repeat neurology consult obtained who recommended MRI of brain with contrast and cervical spine MRI with and without contrast. Both images without enhancing lesions. No active plaques. May consider outpatient EEG however no overt signs of seizure activity. Continue speech therapy follow up as outpatient. 4. Acute kidney injury on chronic kidney disease stage IIIb-acute kidney injury resolved with IV fluids. Patient's requesting intermittent IV fluids as an outpatient. Discussed with patient and that they will need to further discuss this with PCP who may order fluids through home health at their discretion. 5. Stage I pressure ulcer gluteal fold-present on admission. Q2 hour turns. Rx for pressure reducing mattress per request. 6. Chronic constipation-continue home bowel regimen. Physical Exam Const alert, oriented x3 and no apparent distress Orientation / Consciousness: awake, oriented to person, oriented to place and oriented to time HEENT normocephalic and moist oral mucous membranes Eyes PERRL, EOMs intact bilaterally and conjunctivae normal Neck no lymphadenopathy Resp normal respiratory effort and clear to auscultation bilaterally Cardio regular rate, regular rhythm and no murmurs Peripheral Pulses: pulses 2+ throughout GI normal to inspection, nondistended, normoactive bowel sounds, non-tender and non-distended Extremity normal to inspection Skin no rashes or lesions noted Lesions: no lesions Rashes: no rashes Trauma: no lacerations or abrasions Neuro CN's II-XII intact bilaterally, no focal motor deficits, no sensory deficits noted and deep tendon reflexes 2+ bilaterally Neuro Narrative: Global diffuse weakness, right greater than left related to progressive MS. Psych mental status grossly normal Mood & Affect: flat affect Patient seen and examined prior to discharge. Physical assessment as noted above. Patient is stable for discharge with follow up recommendations as noted above. This patient was seen by MARTHA Shannon under the supervision of Dr. Sam. Weight / BMI Weight Weight: 138 lb 10.732 oz Body Mass Index (BMI) 21.5 ABG / Lab / Microbiology Data Result Diagrams: 11/27/21 05:15 11/27/21 05:15 Laboratory: Laboratory Results - last 24 hr 11/27/21 05:15: Total Bilirubin 0.20, Direct Bilirubin 0.06, AST 53 H, ALT 91 H, Alkaline Phosphatase 85, Total Protein 6.3 L, Albumin 2.5 L, Globulin 3.8 Radiography Diagnostic Testing: Radiology Impression Brain MRI 11/27/21 12:59 IMPRESSION: There are no enhancing lesions noted. If the patient does have a demyelinating process, there are no active plaques. Electronically Signed: Peter Raymundo MD at 16:01 EST Reading Location ID and State: [facility] / [place] , Service support , Cervical Spine MRI 11/27/21 13:01 D/C Instructions Discharge Diet: - (Mechanical soft food consistency, direct supervision/assistance feeding) Call your doctor if you observe: Fever of 101 or Higher, Shortness of breath, Dizziness and Chest pain Meaningful Use Info Meaningful Use Diagnoses (Choose all that apply): None applicable Discharge Plan Admission Admit Date/Time: 11/24/21 19:58 Primary Reason for Your Visit: UTI, MS with debility Attending Provider: Singh Sam Primary Care Provider: Alexandria Carranza Consulting Providers: Ted Wright Instructions Additional Instructions / Restrictions: Continue follow-up at [facility] for MS. Discharge Orders/Prescriptions Prescriptions: New nystatin 100,000 unit/mL Suspension 500,000 unit PO 4X/DAY 5 Days Qty: 100 RF: 0 amoxicillin-pot clavulanate 875-125 mg tablet 1 tab PO BID 5 Days Qty: 10 RF: 0 Continued loratadine [Claritin] 10 mg tablet 10 mg PO DAILY RF: 0 bisacodyl 10 MG suppository 10 mg RECTAL DAILY RF: 0 acetaminophen 500 MG tablet 1,000 mg PO Q6H PRN PRN (Reason: Pain) RF: 0 lactulose 20 GM/30 ML solution 60 gm PO QHS RF: 0 polysaccharide iron complex 150 MG capsule 150 mg PO DAILY RF: 0 baclofen 20 MG tablet 20 mg PO TID RF: 0 melatonin 5 MG capsule 10 mg PO QHS RF: 0 magnesium oxide 400 MG tablet 300 mg PO QHS RF: 0 mirtazapine 15 MG tablet 30 mg PO QHS RF: 0 zeijagimwvo-B9-Havvvuxwi serr 1 EACH tablet 1 tab PO DAILY RF: 0 vitamin B complex-folic acid 0.4 MG tablet 1 tab PO DAILY RF: 0 hufqb-ta-6-uir-bvj-fcilnaf-ast 1 EACH capsule 1 ea PO DAILY RF: 0 methylphenidate HCl [Ritalin] 10 mg Tablet 10 mg PO DAILY RF: 0 donepezil 10 mg Tablet 10 mg PO QHS RF: 0 ybxcgbk-xbdk-khzpu-oreg-capryl 100 mg-150 mg- 50 mg-150 mg Capsule 2 cap PO BID RF: 0 cholecalciferol (vitamin D3) 1,250 mcg (50,000 unit) capsule 50,000 unit PO QMONTH RF: 0 hydrocodone-acetaminophen 1 TABLET tablet 1 tab PO Q4H PRN PRN (Reason: Pain) 3 Days Qty: 10 RF: 0 pkusfcew-xaohooq-zsxw-lutein Tablet 1 tab PO DAILY RF: 0 cinacalcet 30 mg tablet 30 mg PO QODAY RF: 0 Discontinued cephalexin 250 mg/5 mL suspension for reconstitution 500 mg PO Q12H Qty: 200 RF: 0 Referrals / Follow Up: Alexandria Carranza MD [Primary Care Provider] - Within 1 Week Mikal Lenz MD [STAFF PHYSICIAN] - 01/26/22 9:00 am Disposition Disposition (needs filled in before D/C Order can be placed): Home Health Service Documented by User: Dr. Singh Sam MD 11/28/21 11:22 Providers Date of Admission: 11/24/21 Reason For Visit: ACUTE EXACERBATION OF MULTIPLE SCLEROSIS Medications at Discharge Home Medications bisacodyl 10 mg RECTAL DAILY 07/01/18 acetaminophen 1,000 mg PO Q6H PRN PRN 02/15/19 lactulose 60 gm PO QHS 03/25/19 baclofen 20 mg PO TID 05/23/19 magnesium oxide 300 mg PO QHS 05/23/19 melatonin 10 mg PO QHS 05/23/19 polysaccharide iron complex 150 mg PO DAILY 05/23/19 yhzbpkwfqtc-T6-Pyewzrsgv serr 1 tab PO DAILY 11/15/20 uldce-du-6-hwv-czf-tlbkscm-ast 1 ea PO DAILY 11/15/20 mirtazapine 30 mg PO QHS 11/15/20 vitamin B complex-folic acid 1 tab PO DAILY 11/15/20 cholecalciferol (vitamin D3) 50,000 unit PO QMONTH 08/15/21 donepezil 10 mg PO QHS 08/15/21 methylphenidate HCl [Ritalin] 10 mg PO DAILY 08/15/21 acznusm-tfpg-kezsz-oreg-capryl 2 cap PO BID 08/15/21 loratadine 10 mg tablet 10 mg PO DAILY 11/03/21 hydrocodone-acetaminophen 1 tab PO Q4H PRN PRN 3 Days #10 tablet 11/18/21 cinacalcet 30 mg PO QODAY 11/24/21 cdqdcclh-layppsp-kqbp-lutein 1 tab PO DAILY 11/24/21 amoxicillin-pot clavulanate 1 tab PO BID 5 Days #10 tab 11/27/21 nystatin 500,000 unit PO 4X/DAY 5 Days #100 ml 11/27/21 Hospital Course Operations None Summary of Care Provided Minutes Spent on Discharge: 35 Hospital Course: This patient was seen in conjunction with MARTHA Shannon . I have independently interviewed and examined the patient and reviewed pertinent historical, laboratory, and other data. Please refer to MARTHA Shannon note for details of this patient's presentation, findings, and recommendations. I have reviewed Kailyn Red NP-C note and concur with documented findings. In brief, patient is a 66-year-old lady with history of multiple sclerosis with significant debility brought to the ED by her on account of progressive generalized weakness 11/26/2021; patient seen much more interactive compared to previous day. Urine cultures reviewed positive for Enterococcus and Klebsiella. Patient was on Rocephin discontinued started on Unasyn. Consult was also placed to infectious disease per request from patient's as a result of recurrent UTIs. Case was discussed with patient's extensively with all his questions answered 11/27/2021; patient was deemed stable for discharge. Did go with recommendations from infectious disease. Physical Examination: General: Interactive Eyes: Anicteric NECK; supple, normal thyroid, RESPIRATORY: Diminished to auscultation bilaterally, CARDIOVASCULAR: Regular S1 S2, GI: soft, non-tender, normoactive bowel sounds, : No Renal angle tenderness; EXTREMITIES: No edema, no clubbing, NEURO: Awake SKIN: No Rash PSYCH; flat affect Assessment: 1. Acute complicated UTI 2. Multiple sclerosis with significant debility 3. Chronic kidney disease stage IIIb 4. Constipation 4. Dysphagia 6. DVT prophylaxis Hospital course; as documented above Total time spent by myself and the advanced practice practitioner evaluating patient, reviewing labs, subsequent management decisions, discussion with patient's as well as other providers 35 minutes ( 20 of which was spent by myself) ABG / Lab / Microbiology Data Result Diagrams: 11/27/21 05:15 11/27/21 05:15 Discharge Plan Admission Admit Date/Time: 11/24/21 19:58 Primary Reason for Your Visit: UTI, MS with debility Attending Provider: Singh aSm Primary Care Provider: Alexandria Carranza Consulting Providers: Ted Wright Instructions Additional Instructions / Restrictions: Continue follow-up at [facility] for MS. Discharge Orders/Prescriptions Prescriptions: New nystatin 100,000 unit/mL Suspension 500,000 unit PO 4X/DAY 5 Days Qty: 100 RF: 0 amoxicillin-pot clavulanate 875-125 mg tablet 1 tab PO BID 5 Days Qty: 10 RF: 0 Continued loratadine [Claritin] 10 mg tablet 10 mg PO DAILY RF: 0 bisacodyl 10 MG suppository 10 mg RECTAL DAILY RF: 0 acetaminophen 500 MG tablet 1,000 mg PO Q6H PRN PRN (Reason: Pain) RF: 0 lactulose 20 GM/30 ML solution 60 gm PO QHS RF: 0 polysaccharide iron complex 150 MG capsule 150 mg PO DAILY RF: 0 baclofen 20 MG tablet 20 mg PO TID RF: 0 melatonin 5 MG capsule 10 mg PO QHS RF: 0 magnesium oxide 400 MG tablet 300 mg PO QHS RF: 0 mirtazapine 15 MG tablet 30 mg PO QHS RF: 0 ovlgnqixmoy-G9-Xxsnrqtjb serr 1 EACH tablet 1 tab PO DAILY RF: 0 vitamin B complex-folic acid 0.4 MG tablet 1 tab PO DAILY RF: 0 ixjzo-tm-5-gfa-cnh-hevyyfv-ast 1 EACH capsule 1 ea PO DAILY RF: 0 methylphenidate HCl [Ritalin] 10 mg Tablet 10 mg PO DAILY RF: 0 donepezil 10 mg Tablet 10 mg PO QHS RF: 0 cayjrhw-mdaq-jtpbg-oreg-capryl 100 mg-150 mg- 50 mg-150 mg Capsule 2 cap PO BID RF: 0 cholecalciferol (vitamin D3) 1,250 mcg (50,000 unit) capsule 50,000 unit PO QMONTH RF: 0 hydrocodone-acetaminophen 1 TABLET tablet 1 tab PO Q4H PRN PRN (Reason: Pain) 3 Days Qty: 10 RF: 0 tjfjvctw-gddevvt-ekri-lutein Tablet 1 tab PO DAILY RF: 0 cinacalcet 30 mg tablet 30 mg PO QODAY RF: 0 Discontinued cephalexin 250 mg/5 mL suspension for reconstitution 500 mg PO Q12H Qty: 200 RF: 0 Referrals / Follow Up: Alexandria Carranza MD [Primary Care Provider] - Within 1 Week Mikal Lenz MD [STAFF PHYSICIAN] - 01/26/22 9:00 am Disposition Disposition (needs filled in before D/C Order can be placed): Home Health Service Charges/Coding Visit Charges Inpatient E&M: 78907 Disch Hosp Hospital Course Consultations Consultations: Consultations 11/25/21 07:00 Consult: Onc/Wound/metallurgical laboratory assistant Routine Comment: 11/26/21 09:57 Consult: Infectious Disease Routine Consulting Provider: Ted Wright Reason for Consult: recurrent utis;; family request EMERGENT Consult: No MD Notified: Yes Date Notified: 02/23/22 Time Notified: 10:14 Method of Notification: Text Operations None
[2021-11-28] MEDS: 0.9% Saline Lock 10 ML Syringe IV (10:13)
[2021-11-28] MEDS: Ondansetron ODT 4 MG Tablet PO (10:26)
== END 2021-11-28 12:40 | disposition home health service (06) | DRG 699 ==
LOC: ED 19:40 → PCU 21:15
PROVIDERS: Physician Assistant; Admitting Provider Hospitalist; Emergency Provider Emergency Medicine; PCP Internal Medicine; Visit Provider Internal Medicine
DX: T83.518A Infection and inflammatory reaction due to other urinary catheter, initial encounter (principal); N17.9 Acute kidney failure, unspecified; B37.0 Candidal stomatitis; G81.91 Hemiplegia, unspecified affecting right dominant side; N18.4 Chronic kidney disease, stage 4 (severe); L89.302 Pressure ulcer of unspecified buttock, stage 2; G35 Multiple sclerosis; I12.9 Hypertensive chronic kidney disease with stage 1 through stage 4 chronic kidney disease, or unspecified chronic kidney disease; B95.2 Enterococcus as the cause of diseases classified elsewhere; K59.00 Constipation, unspecified; B96.1 Klebsiella pneumoniae [K. pneumoniae] as the cause of diseases classified elsewhere; E78.5 Hyperlipidemia, unspecified; R62.7 Adult failure to thrive; N32.81 Overactive bladder; N31.9 Neuromuscular dysfunction of bladder, unspecified; R13.10 Dysphagia, unspecified; Z86.73 Personal history of transient ischemic attack (TIA), and cerebral infarction without residual deficits; Z22.322 Carrier or suspected carrier of Methicillin resistant Staphylococcus aureus
CPT/HCPCS: 36415; 70450; 70551; 70552; 71275; 72156; 80048; 80053; 80076; 81001; 82140; 84484; 85025; 87077; 87086; 87088; 87186; 92523; 92526; 92610; 93005; 97110; 97162; 97166; 97530; 97535; 99285; A9575; J7030; Q9967; A4216; J0295; J2405

== ENCOUNTER 2022-01-15 13:34 | Outpatient (CLI) | payer MEDICARE, SELFPAY ==
[2022-01-15] MEDS: 0.9% NaCl VAD Flush IV (14:17)
[2022-01-15] MEDS: 0.9 % NaCl (Sterile) Posiflush 10 mL IV (14:17)
--- NOTE | 2022-01-15 14:19 | NURSING ---
URINE SPECIMEN OBTAINED FROM [facility] LEG BAG. HOSPITAL PRODUCT SPECIALIST STATES BAG IS CLEAN AND WITHIN 1 HOUR OF ARRIVAL TO HOSPITAL.
[2022-01-15 14:23] LABS: Absolute Lymphocyte Count 1.67 X10^3/uL (0.83-4.51); Absolute Neutrophil Count 4.3 X10^3/uL (2.0-7.7); Basophil# 0.06 X10^3/uL; Basophil% 0.8 % (0-1); Color, Urine Yellow (Yellow); Eosinophil# 0.52 X10^3/uL; Eosinophils% 7.1 % (0-5); Glucose, Dipstick Normal (Normal); Hematocrit 42.1 % (37-47); Hemoglobin 13.9 g/dL (12.0-15.0); Ketone-Dipstick Negative (Negative); Leukocyte Esterase-Dipstick 500 /ul (Negative); Lymphocyte # 1.67 X10^3/ul (0.83-4.51); Lymphocyte % 22.9 % (19-41); Mean Corpuscular Hgb 30.5 pg (27.0-32.0); Mean Corpuscular Volume 92.5 fL (81-99); Mean Platelet Vol. 9.8 fl (6.2-12.0); Monocyte# 0.75 X10^3/uL; Monocyte% 10.3 % (0-10); NRBC Flagged by Analyzer 0 % (0-5); Neutrophil # 4.28 X10^3/uL (2.7-7.7); Neutrophil % 58.6 % (47-70); Nitrite-Dipstick Negative (Negative); Occult Blood-Urine 250 /ul (Negative); Platelet Count 164 K/mm3 (150-450); Protein-Dipstick 30 mg/dl (Negative); RBC Distribution Width CV 14.7 % (11.6-14.6); RBC Distribution Width SD 50.2 fl (35.1-43.9); Red Blood Count 4.55 M/mm3 (4.2-5.4); Urine Bilirubin Dipstick Negative (Negative); Urine Clarity Sl. Cloudy (Clear); Urine Urobilinogen Normal (Normal); White Blood Count 7.3 K/mm3 (4.4-11.0)
[2022-01-15 14:46] LABS: Microalbumin:Creatinine Ratio 378.1 mg/g CRE (<30 mg/g CRE)
[2022-01-15 14:55] LABS: ALB/GLOB Ratio 0.8 RATIO (0.9-2.4); AST(SGOT) 20 U/L (15-37); Alanine Aminotransfer ALT/SGPT 25 U/L (13-56); Albumin, Serum 3.3 g/dL (3.2-5.0); Alkaline Phosphatase 79 U/L (45-117); Anion Gap 6 (5-15); BUN 20 mg/dL (7-18); Calcium,Total 9.3 mg/dL (8.5-10.1); Chloride 102 mmol/L (98-107); Creatinine, Serum 1.25 mg/dL (0.55-1.02); EST Glomerular Filtration Rate 45 mL/min (>60); Est Glom Filt Rate - Afr Amer 55 mL/min (>60); Globulin 4.1 g/dL (2.2-4.2); Glucose 97 mg/dL (74-106); Potassium 4.6 mmol/L (3.5-5.1); Protein, Total 7.4 g/dL (6.4-8.2); Sodium Level 138 mmol/L (136-145)
[2022-01-15 14:58] LABS: Vitamin D,25 Hydroxy 97.9 ng/mL
[2022-01-16 08:03] LABS: PTHIN 85.7 pg/mL (18.4-80.1)
== END 2022-01-15 23:59 | disposition home or self-care (01) ==
LOC: MEDOUTP 13:34
PROVIDERS: PCP Internal Medicine; Referring Provider Internal Medicine; Visit Provider Internal Medicine
DX: N18.30 Chronic kidney disease, stage 3 unspecified (principal); Z93.59 Other cystostomy status; G81.91 Hemiplegia, unspecified affecting right dominant side; E21.5 Disorder of parathyroid gland, unspecified; E55.9 Vitamin D deficiency, unspecified
CPT/HCPCS: 36591; 80053; 81002; 82043; 82306; 82330; 82570; 83970; 85025; A4216

== ENCOUNTER 2022-01-20 13:01 | Outpatient (CLI) | payer MEDICARE, SELFPAY ==
[2022-01-20 13:11] LABS: Color, Urine Yellow (Yellow); Glucose, Dipstick Normal (Normal); Ketone-Dipstick Negative (Negative); Leukocyte Esterase-Dipstick 500 /ul (Negative); Nitrite-Dipstick Negative (Negative); Occult Blood-Urine 50 /ul (Negative); Protein-Dipstick Negative (Negative); Urine Bilirubin Dipstick Negative (Negative); Urine Clarity Clear (Clear); Urine Urobilinogen Normal (Normal)
== END 2022-01-20 23:59 | disposition home or self-care (01) ==
PROVIDERS: PCP Internal Medicine; Visit Provider Internal Medicine
DX: Z93.59 Other cystostomy status (principal)
CPT/HCPCS: 81002; 87077; 87086; 87088; 87186

== ENCOUNTER → 2022-02-17 | Outpatient (CLI) | payer MEDICARE, SELFPAY ==
[2022-02-17] MEDS: 0.9% NaCl VAD Flush IV (14:50)
--- NOTE | 2022-02-17 14:52 | NURSING ---
urine sample for labs obtained from pt's leg bag.
[2022-02-17 15:01] LABS: Absolute Lymphocyte Count 1.77 X10^3/uL (0.83-4.51); Absolute Neutrophil Count 5.2 X10^3/uL (2.0-7.7); Basophil# 0.07 X10^3/uL; Basophil% 0.8 % (0-1); Eosinophils% 4.8 % (0-5); Hematocrit 41.7 % (37-47); Hemoglobin 13.8 g/dL (12.0-15.0); Lymphocyte # 1.77 X10^3/ul (0.83-4.51); Mean Corp Hgb Conc 33.1 g/dL (32-36); Mean Corpuscular Hgb 31.5 pg (27.0-32.0); Mean Corpuscular Volume 95.2 fL (81-99); Mean Platelet Vol. 9.6 fl (6.2-12.0); Monocyte# 0.92 X10^3/uL; Monocyte% 10.9 % (0-10); NRBC Flagged by Analyzer 0 % (0-5); Neutrophil # 5.22 X10^3/uL (2.7-7.7); Neutrophil % 62.1 % (47-70); Platelet Count 211 K/mm3 (150-450); RBC Distribution Width CV 14.5 % (11.6-14.6); RBC Distribution Width SD 51.2 fl (35.1-43.9); Red Blood Count 4.38 M/mm3 (4.2-5.4); White Blood Count 8.4 K/mm3 (4.4-11.0)
[2022-02-17 15:03] LABS: Color, Urine Yellow (Yellow); Glucose, Dipstick Normal (Normal); Ketone-Dipstick Negative (Negative); Leukocyte Esterase-Dipstick 500 /ul (Negative); Nitrite-Dipstick Negative (Negative); Occult Blood-Urine 250 /ul (Negative); Protein-Dipstick Negative (Negative); Specific Gravity, Urine 1.005 (1.002-1.030); Urine Bilirubin Dipstick Negative (Negative); Urine Clarity Sl. Cloudy (Clear); Urine Urobilinogen Normal (Normal)
[2022-02-17 15:22] LABS: ALB/GLOB Ratio 0.8 RATIO (0.9-2.4); AST(SGOT) 20 U/L (15-37); Alanine Aminotransfer ALT/SGPT 23 U/L (13-56); Albumin, Serum 3.3 g/dL (3.2-5.0); Alkaline Phosphatase 78 U/L (45-117); Anion Gap 4 (5-15); BUN 17 mg/dL (7-18); BUN/Creat Ratio 14.8 RATIO (10-20); Calcium,Total 9.1 mg/dL (8.5-10.1); Chloride 103 mmol/L (98-107); Creatinine, Serum 1.15 mg/dL (0.55-1.02); EST Glomerular Filtration Rate 50 mL/min (>60); Est Glom Filt Rate - Afr Amer 61 mL/min (>60); Globulin 4.3 g/dL (2.2-4.2); Glucose 87 mg/dL (74-106); Potassium 4.4 mmol/L (3.5-5.1); Protein, Total 7.6 g/dL (6.4-8.2); Sodium Level 138 mmol/L (136-145)
[2022-02-17 15:23] LABS: Vitamin D,25 Hydroxy 68.4 ng/mL
== END | disposition home or self-care (01) ==
LOC: MEDOUTP 14:20
PROVIDERS: PCP Internal Medicine; Referring Provider Internal Medicine; Visit Provider Internal Medicine
DX: Z45.2 Encounter for adjustment and management of vascular access device (principal); Z93.59 Other cystostomy status; E21.5 Disorder of parathyroid gland, unspecified; N18.30 Chronic kidney disease, stage 3 unspecified
CPT/HCPCS: 36591; 80053; 81002; 82306; 85025; 87077; 87086; 87088; 87186; A4216

== ENCOUNTER → 2022-03-13 | Outpatient (CLI) | payer MEDICARE, SELFPAY ==
[2022-03-13 15:04] LABS: Absolute Lymphocyte Count 1.85 X10^3/uL (0.83-4.51); Absolute Neutrophil Count 4.8 X10^3/uL (2.0-7.7); Basophil# 0.07 X10^3/uL; Basophil% 0.9 % (0-1); Eosinophil# 0.28 X10^3/uL; Eosinophils% 3.6 % (0-5); Hematocrit 42.4 % (37-47); Hemoglobin 13.7 g/dL (12.0-15.0); Lymphocyte # 1.85 X10^3/ul (0.83-4.51); Lymphocyte % 23.9 % (19-41); Mean Corp Hgb Conc 32.3 g/dL (32-36); Mean Corpuscular Hgb 30.8 pg (27.0-32.0); Mean Corpuscular Volume 95.3 fL (81-99); Mean Platelet Vol. 9.7 fl (6.2-12.0); Monocyte# 0.72 X10^3/uL; Monocyte% 9.3 % (0-10); NRBC Flagged by Analyzer 0 % (0-5); Neutrophil # 4.78 X10^3/uL (2.7-7.7); Neutrophil % 61.9 % (47-70); Platelet Count 172 K/mm3 (150-450); RBC Distribution Width CV 14.3 % (11.6-14.6); RBC Distribution Width SD 50.4 fl (35.1-43.9); Red Blood Count 4.45 M/mm3 (4.2-5.4); White Blood Count 7.7 K/mm3 (4.4-11.0)
[2022-03-13 15:19] LABS: Mucous, Urine 0 SEEN /hpf (<or=2+); Red Blood Cells-Urine 0 SEEN /hpf (0-5); Squamous Epithelial Cells - UA 0 SEEN /hpf (5-10)
[2022-03-13 15:24] LABS: ALB/GLOB Ratio 0.8 RATIO (0.9-2.4); AST(SGOT) 21 U/L (15-37); Alanine Aminotransfer ALT/SGPT 31 U/L (13-56); Albumin, Serum 3.3 g/dL (3.2-5.0); Alkaline Phosphatase 88 U/L (45-117); Anion Gap 6 (5-15); BUN 15 mg/dL (7-18); BUN/Creat Ratio 12.6 RATIO (10-20); Calcium,Total 9.1 mg/dL (8.5-10.1); Chloride 102 mmol/L (98-107); Creatinine, Serum 1.19 mg/dL (0.55-1.02); EST Glomerular Filtration Rate 48 mL/min (>60); Est Glom Filt Rate - Afr Amer 58 mL/min (>60); Globulin 4.1 g/dL (2.2-4.2); Glucose 97 mg/dL (74-106); Protein, Total 7.4 g/dL (6.4-8.2); Sodium Level 137 mmol/L (136-145)
[2022-03-13 15:26] LABS: Vitamin D,25 Hydroxy 75.3 ng/mL
[2022-03-13 15:27] LABS: Color, Urine Yellow (Yellow); Glucose, Dipstick Normal (Normal); Ketone-Dipstick Negative (Negative); Leukocyte Esterase-Dipstick 500 /ul (Negative); Nitrite-Dipstick Negative (Negative); Occult Blood-Urine 250 /ul (Negative); Protein-Dipstick Negative (Negative); Urine Bilirubin Dipstick Negative (Negative); Urine Clarity Sl. Cloudy (Clear); Urine Urobilinogen Normal (Normal)
[2022-03-13 15:34] LABS: Bacteria 1+ /hpf (None Seen); White Blood Cells 10-25 SEEN /hpf (0-5)
== END | disposition home or self-care (01) ==
PROVIDERS: PCP Internal Medicine; Referring Provider Internal Medicine; Visit Provider Internal Medicine
DX: Z45.2 Encounter for adjustment and management of vascular access device (principal); G81.91 Hemiplegia, unspecified affecting right dominant side; G35 Multiple sclerosis; R53.81 Other malaise; E55.9 Vitamin D deficiency, unspecified
CPT/HCPCS: 36591; 80053; 81001; 82306; 85025; 87077; 87086; 87088; 87186; A4216

== ENCOUNTER → 2022-05-18 | Outpatient (CLI) | payer MEDICARE, SELFPAY ==
[2022-05-18 15:47] LABS: Mucous, Urine 0 SEEN /hpf (<or=2+); Squamous Epithelial Cells - UA 0 SEEN /hpf (5-10)
[2022-05-18 15:51] LABS: Absolute Lymphocyte Count 1.43 X10^3/uL (0.83-4.51); Absolute Neutrophil Count 5.9 X10^3/uL (2.0-7.7); Basophil# 0.07 X10^3/uL; Basophil% 0.8 % (0-1); Eosinophil# 0.23 X10^3/uL; Eosinophils% 2.7 % (0-5); Hemoglobin 13.9 g/dL (12.0-15.0); Lymphocyte # 1.43 X10^3/ul (0.83-4.51); Lymphocyte % 17.1 % (19-41); Mean Corp Hgb Conc 33.1 g/dL (32-36); Mean Corpuscular Hgb 31.7 pg (27.0-32.0); Mean Corpuscular Volume 95.7 fL (81-99); Mean Platelet Vol. 9.9 fl (6.2-12.0); Monocyte# 0.68 X10^3/uL; Monocyte% 8.1 % (0-10); NRBC Flagged by Analyzer 0 % (0-5); Neutrophil # 5.94 X10^3/uL (2.7-7.7); Neutrophil % 71.1 % (47-70); Platelet Count 179 K/mm3 (150-450); RBC Distribution Width CV 14.1 % (11.6-14.6); RBC Distribution Width SD 49.4 fl (35.1-43.9); Red Blood Count 4.39 M/mm3 (4.2-5.4); White Blood Count 8.4 K/mm3 (4.4-11.0)
[2022-05-18 16:05] LABS: Color, Urine Yellow (Yellow); Glucose, Dipstick Normal (Normal); Ketone-Dipstick Negative (Negative); Leukocyte Esterase-Dipstick 500 /ul (Negative); Nitrite-Dipstick Negative (Negative); Occult Blood-Urine 25 /ul (Negative); Protein-Dipstick 15 mg/dl (Negative); Specific Gravity, Urine 1.015 (1.002-1.030); Urine Bilirubin Dipstick Negative (Negative); Urine Clarity Clear (Clear); Urine Urobilinogen Normal (Normal)
[2022-05-18 16:12] LABS: ALB/GLOB Ratio 0.9 RATIO (0.9-2.4); AST(SGOT) 24 U/L (15-37); Alanine Aminotransfer ALT/SGPT 30 U/L (13-56); Albumin, Serum 3.5 g/dL (3.2-5.0); Alkaline Phosphatase 91 U/L (45-117); Anion Gap 6 (5-15); BUN 28 mg/dL (7-18); BUN/Creat Ratio 16.4 RATIO (10-20); Calcium,Total 9.3 mg/dL (8.5-10.1); Chloride 100 mmol/L (98-107); Creatinine, Serum 1.71 mg/dL (0.55-1.02); EST Glomerular Filtration Rate 32 mL/min (>60); Est Glom Filt Rate - Afr Amer 38 mL/min (>60); Globulin 3.9 g/dL (2.2-4.2); Glucose 106 mg/dL (74-106); Potassium 4.1 mmol/L (3.5-5.1); Protein, Total 7.4 g/dL (6.4-8.2); Sodium Level 135 mmol/L (136-145)
[2022-05-18 16:14] LABS: PTHIN 144.4 pg/mL (18.4-80.1)
[2022-05-18 16:23] LABS: Microalbumin,Random Urine 94.1 mg/L (NO RANGE EST.); Microalbumin:Creatinine Ratio 198.5 mg/g CRE (<30 mg/g CRE)
[2022-05-18 18:27] LABS: Red Blood Cells-Urine 0-5 SEEN /hpf (0-5); White Blood Cells 10-25 SEEN /hpf (0-5); Yeast-Urine 2+ /hpf (None Seen)
[2022-05-18 18:28] LABS: Bacteria 1+ /hpf (None Seen)
== END | disposition home or self-care (01) ==
PROVIDERS: PCP Internal Medicine; Referring Provider Internal Medicine; Visit Provider Internal Medicine
DX: Z45.2 Encounter for adjustment and management of vascular access device (principal); G81.91 Hemiplegia, unspecified affecting right dominant side; G35 Multiple sclerosis; E55.9 Vitamin D deficiency, unspecified; R53.81 Other malaise
CPT/HCPCS: 36591; 80053; 81001; 82043; 82306; 82330; 82570; 83970; 85025; 87077; 87086; 87088; 87186; A4216

== ENCOUNTER → 2022-06-09 | Outpatient (CLI) | payer MEDICARE, SELFPAY ==
[2022-06-09] MEDS: 0.9 % NaCl (Sterile) Posiflush 10 mL IV (15:24)
[2022-06-09] MEDS: 0.9% NaCl VAD Flush IV (15:25)
[2022-06-09 16:01] LABS: Mucous, Urine 0 SEEN /hpf (<or=2+)
[2022-06-09 16:05] LABS: Color, Urine Straw (Yellow); Glucose, Dipstick Normal (Normal); Ketone-Dipstick Negative (Negative); Leukocyte Esterase-Dipstick 500 /ul (Negative); Nitrite-Dipstick Negative (Negative); Occult Blood-Urine 250 /ul (Negative); Protein-Dipstick 30 mg/dl (Negative); Urine Bilirubin Dipstick Negative (Negative); Urine Clarity Clear (Clear); Urine Urobilinogen Normal (Normal); Urine pH 6.5 (5.0 - 8.0)
[2022-06-09 16:19] LABS: Bacteria 3+ /hpf (None Seen); Red Blood Cells-Urine 10-25 SEEN /hpf (0-5); Squamous Epithelial Cells - UA 0-5 SEEN /hpf (5-10); White Blood Cells 50-100 SEEN /hpf (0-5)
[2022-06-09 16:20] LABS: ALB/GLOB Ratio 0.8 RATIO (0.9-2.4); AST(SGOT) 19 U/L (15-37); Alanine Aminotransfer ALT/SGPT 34 U/L (13-56); Albumin, Serum 3.2 g/dL (3.2-5.0); Alkaline Phosphatase 98 U/L (45-117); Anion Gap 8 (5-15); BUN 29 mg/dL (7-18); BUN/Creat Ratio 21.8 RATIO (10-20); Calcium,Total 8.9 mg/dL (8.5-10.1); Chloride 101 mmol/L (98-107); Creatinine, Serum 1.33 mg/dL (0.55-1.02); EST Glomerular Filtration Rate 42 mL/min (>60); Est Glom Filt Rate - Afr Amer 51 mL/min (>60); Glucose 121 mg/dL (74-106); Phosphorus 3.3 mg/dL (2.5-4.9); Potassium 4.2 mmol/L (3.5-5.1); Protein, Total 7.2 g/dL (6.4-8.2); Sodium Level 139 mmol/L (136-145)
[2022-06-09 16:24] LABS: Microalbumin:Creatinine Ratio 924.2 mg/g CRE (<30 mg/g CRE); Protein, Urine (Random) 28.7 mg/dL (<11.9); Protein:Creat Ratio 2174 mg/g CRE (0-200)
[2022-06-09 16:31] LABS: Absolute Lymphocyte Count 1.75 X10^3/uL (0.83-4.51); Absolute Neutrophil Count 6.5 X10^3/uL (2.0-7.7); Basophil# 0.05 X10^3/uL; Basophil% 0.5 % (0-1); Eosinophil# 0.29 X10^3/uL; Eosinophils% 3.1 % (0-5); Hematocrit 41.3 % (37-47); Hemoglobin 13.6 g/dL (12.0-15.0); Lymphocyte # 1.75 X10^3/ul (0.83-4.51); Lymphocyte % 18.5 % (19-41); Mean Corp Hgb Conc 32.9 g/dL (32-36); Mean Corpuscular Hgb 31.6 pg (27.0-32.0); Mean Corpuscular Volume 95.8 fL (81-99); Mean Platelet Vol. 9.9 fl (6.2-12.0); Monocyte# 0.84 X10^3/uL; Monocyte% 8.9 % (0-10); NRBC Flagged by Analyzer 0 % (0-5); Neutrophil % 68.6 % (47-70); Platelet Count 155 K/mm3 (150-450); RBC Distribution Width CV 14.1 % (11.6-14.6); RBC Distribution Width SD 49.9 fl (35.1-43.9); Red Blood Count 4.31 M/mm3 (4.2-5.4); White Blood Count 9.5 K/mm3 (4.4-11.0)
[2022-06-09 17:25] LABS: Vitamin D,25 Hydroxy 72.3 ng/mL
[2022-06-10 09:28] LABS: PTHIN 51.2 pg/mL (18.4-80.1)
== END | disposition home or self-care (01) ==
LOC: MEDOUTP 15:12
PROVIDERS: PCP Internal Medicine; Referring Provider Internal Medicine; Visit Provider Internal Medicine
DX: N18.30 Chronic kidney disease, stage 3 unspecified (principal); Z93.59 Other cystostomy status; E21.5 Disorder of parathyroid gland, unspecified; R53.81 Other malaise
CPT/HCPCS: 36591; 80053; 81001; 82043; 82306; 82330; 82570; 83970; 84100; 84156; 85025; 87077; 87086; 87088; 87186; A4216

== ENCOUNTER → 2022-07-13 | Outpatient (CLI) | payer MEDICARE, SELFPAY ==
[2022-07-13 12:14] LABS: Color, Urine Yellow (Yellow); Glucose, Dipstick Normal (Normal); Ketone-Dipstick Negative (Negative); Leukocyte Esterase-Dipstick 500 /ul (Negative); Nitrite-Dipstick Positive (Negative); Occult Blood-Urine 250 /ul (Negative); Protein-Dipstick 30 mg/dl (Negative); Urine Bilirubin Dipstick Negative (Negative); Urine Clarity Cloudy (Clear); Urine Urobilinogen Normal (Normal)
== END | disposition home or self-care (01) ==
LOC: MTLAB 11:21
PROVIDERS: PCP Internal Medicine; Referring Provider Internal Medicine; Visit Provider Internal Medicine
DX: R82.71 Bacteriuria (principal)
CPT/HCPCS: 81002; 87077; 87086; 87088; 87186

== ENCOUNTER → 2022-07-15 | Outpatient (CLI) | payer MEDICARE, SELFPAY ==
[2022-07-15] MEDS: 0.9 % NaCl (Sterile) Posiflush 10 mL IV (10:53)
[2022-07-15] MEDS: 0.9% Normal Saline 1,000 ML 999 ML IV (10:53)
[2022-07-15] MEDS: 0.9% NaCl VAD Flush IV ×2 (10:53→12:13)
[2022-07-15 11:01] VITALS: BP 128/56; PULSE 73; TEMP 35.9; O2SAT 96
[2022-07-15 11:28] LABS: Absolute Lymphocyte Count 2.11 X10^3/uL (0.83-4.51); Absolute Neutrophil Count 5.7 X10^3/uL (2.0-7.7); Basophil# 0.08 X10^3/uL; Basophil% 0.8 % (0-1); Eosinophil# 0.78 X10^3/uL; Eosinophils% 8.3 % (0-5); Lymphocyte # 2.11 X10^3/ul (0.83-4.51); Lymphocyte % 22.4 % (19-41); Mean Corp Hgb Conc 32.6 g/dL (32-36); Mean Corpuscular Hgb 31.8 pg (27.0-32.0); Mean Corpuscular Volume 97.5 fL (81-99); Monocyte# 0.77 X10^3/uL; Monocyte% 8.2 % (0-10); NRBC Flagged by Analyzer 0 % (0-5); Neutrophil # 5.67 X10^3/uL (2.7-7.7); Neutrophil % 60.1 % (47-70); Platelet Count 183 K/mm3 (150-450); RBC Distribution Width CV 14.3 % (11.6-14.6); Red Blood Count 4.72 M/mm3 (4.2-5.4); White Blood Count 9.4 K/mm3 (4.4-11.0)
[2022-07-15 11:47] LABS: ALB/GLOB Ratio 0.7 RATIO (0.9-2.4); AST(SGOT) 28 U/L (15-37); Alanine Aminotransfer ALT/SGPT 44 U/L (13-56); Albumin, Serum 3.3 g/dL (3.2-5.0); Alkaline Phosphatase 106 U/L (45-117); Anion Gap 6 (5-15); BUN 26 mg/dL (7-18); BUN/Creat Ratio 14.5 RATIO (10-20); Calcium,Total 10.3 mg/dL (8.5-10.1); Chloride 107 mmol/L (98-107); Creatinine, Serum 1.79 mg/dL (0.55-1.02); EST Glomerular Filtration Rate 30 mL/min (>60); Est Glom Filt Rate - Afr Amer 36 mL/min (>60); Globulin 4.6 g/dL (2.2-4.2); Glucose 93 mg/dL (74-106); Protein, Total 7.9 g/dL (6.4-8.2); Sodium Level 142 mmol/L (136-145)
[2022-07-15 12:16] VITALS: BP 130/68; PULSE 75; RESP 16; TEMP 36.1; O2SAT 96
== END | disposition home or self-care (01) ==
LOC: MEDOUTP 10:34
PROVIDERS: PCP Internal Medicine; Referring Provider Internal Medicine; Visit Provider Internal Medicine
DX: E86.0 Dehydration (principal); Z93.59 Other cystostomy status; E21.5 Disorder of parathyroid gland, unspecified; N18.30 Chronic kidney disease, stage 3 unspecified; R82.71 Bacteriuria
CPT/HCPCS: 96360; 36591; 80053; 82306; 85025; J7030; A4216

== ENCOUNTER 2022-07-22 16:54 | Emergency (ER) | payer MEDICARE, SELFPAY ==
[2022-07-22 16:55] VITALS: BP 119/80; PULSE 82; RESP 16; TEMP 36.2; O2SAT 97; BMI 19.8
--- NOTE | 2022-07-22 17:40 | EKG12_ITS ---
Test Reason : Blood Pressure : / mmHG Vent. Rate : 074 BPM Atrial Rate : 074 BPM P-R Int : 138 ms QRS Dur : 098 ms QT Int : 436 ms P-R-T Axes : 057 023 036 degrees QTc Int : 483 ms Normal sinus rhythm Normal ECG Confirmed by VITOR RAMÍREZ, JAZMIN ([id number]), editor farm journal OZZIE MG ([id number]) on 07/27/2022 9:34:14 AM Referred By: WADE Confirmed By:JAZMIN ADLER MD
--- NOTE | 2022-07-22 17:42 | EDS_ITS ---
HPI History of Present Illness Chief Complaint: Fatigue Informant: patient and spouse/S.O. Narrative Narrative: Patient presents for evaluation of increasing weakness and functional decline. She has a history of MS. 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 I did receive a phone call from patient's PCP state that she had a functional decline over the past 1 to 2 weeks. She has not been eating well. She is a chronic indwelling suprapubic catheter. Culture from this recently grew out Klebsiella and MRSA. She has been treated with Bactrim and doxycycline. states her p.o. intake has been less than normal and variable over the past week or so. Today she would not eat or drink anything. He is concerned about her getting dehydrated. She has not had significant cough. She has had no fever. [facility] Medical History Alcohol use Allergic rhinitis Back pain Bilateral hydronephrosis Blackout Chronic constipation CKD (chronic kidney disease) stage 4, GFR 15-29 ml/min Complicated urinary tract infection Constipation Declining functional status Dental bridge present Depression Difficulty swallowing Endometrial thickening on ultrasound History of echocardiogram History of edema History of wrist fracture Hyperlipidemia Hypertension Indwelling urethral catheter present Insomnia Iron deficiency anemia Loss of hearing Low iron Migraine headache Migraine headache MRSA colonization Multiple sclerosis Multiple sclerosis Muscle spasm Neurogenic bladder Non-smoker OAB (overactive bladder) Pelvic pain Port-A-Cath in place Right hemiparesis Urinary tract infection Uses wheelchair Vitamin D deficiency Wears glasses Home Medications bisacodyl 10 mg rectal suppository 10 mg RECTAL DAILY constipation 07/01/18 [History Last Taken 11/24/21] acetaminophen 500 mg tablet 1,000 mg PO Q6H PRN PRN Pain 02/15/19 [History Last Taken 03/25/19] lactulose 20 gram/30 mL oral solution 60 gm PO QHS constipation 03/25/19 [History Last Taken 11/23/21] baclofen 20 mg tablet 20 mg PO TID MUSCLE 05/23/19 [History Last Taken 11/24/21] magnesium oxide 400 mg (241.3 mg magnesium) tablet 300 mg PO QHS magnesium supplement 05/23/19 [History Last Taken 11/23/21] melatonin 5 mg capsule 10 mg PO QHS sleep 05/23/19 [History Last Taken 11/23/21] polysaccharide iron complex 150 mg iron capsule 150 mg PO DAILY iron replacement 05/23/19 [History Last Taken 11/24/21] glucosamine [id number]-[id number]-[id number] zoey 1,500 mg-400 unit-100 mg tablet 1 tab PO DAILY supplement 11/15/20 [History Last Taken Unknown] krill 1,000 mg-omega-3 170 mg-dha 50 mg-epa 80 mm-jayfmh-zqqph capsule 1 ea PO DAILY supplement 11/15/20 [History Last Taken Unknown] mirtazapine 15 mg tablet 45 mg PO QHS 11/15/20 [History Last Taken 11/23/21] vitamin B complex-folic acid 0.4 mg tablet 1 tab PO DAILY vitamin 11/15/20 [History Last Taken 11/24/21] cholecalciferol (vitamin D3) 1,250 mcg (50,000 unit) capsule 50,000 unit PO QMONTH vitamin 08/15/21 [History Last Taken 2 Weeks Ago ~11/10/21] donepezil 10 mg tablet 10 mg PO QHS memory 08/15/21 [History Last Taken 11/23/21] methylphenidate HCl 10 mg tablet (Ritalin) 10 mg PO DAILY 08/15/21 [History Last Taken 11/24/21] tumeric 100 mg-tristian 150 mg-olive 50 mg-oreg 150 mg-caprylate capsule 2 cap PO BID supplement 08/15/21 [History Last Taken 11/23/21] loratadine 10 mg tablet (Claritin) 10 mg PO DAILY allergies 11/03/21 [History Last Taken 11/23/21] hydrocodone-acetaminophen 5-325mg 5mg-325mg 1 tab PO Q4H PRN PRN Pain 3 days #10 TABLETS 11/18/21 [Rx Last Taken Unknown] cinacalcet 30 mg tablet 30 mg PO QODAY hyperparathyroidism 11/24/21 [History Last Taken 11/23/21] rgmvcixd-ufugmrv-ajhs-lutein tablet 1 tab PO DAILY SUPPLEMENT 11/24/21 [History Last Taken 11/23/21] amoxicillin 875 mg-potassium clavulanate 125 mg tablet 1 tab PO BID 5 days #10 tabs 11/27/21 [Rx Last Taken Unknown] nystatin 100,000 unit/mL oral suspension 500,000 unit (5 mL) PO 4X/DAY 5 days #100 mL 11/27/21 [Rx Last Taken Unknown] ascorbic acid (vitamin C) 1,000 mg capsule,extended release 1 cap PO DAILY 07/22/22 [History Last Taken Unknown] fexofenadine 180 mg tablet 180 mg PO DAILY 07/22/22 [History Last Taken Unknown] krill oil 500 mg capsule 500 mg PO BID 07/22/22 [History Last Taken Unknown] memantine 5 mg-10 mg tablets in a dose pack 10 tab PO BID 07/22/22 [History Last Taken Unknown] ondansetron 4 mg disintegrating tablet 4 mg PO Q8H PRN nausea and vomiting #10 tabs 07/22/22 [Rx Last Taken Unknown] Allergy/AdvReac Type Severity Reaction Status Date / Time ciprofloxacin [From Cipro] AdvReac hypotension Verified 07/22/22 17:03 dextrose 5 % in water AdvReac Other Verified 07/22/22 17:03 [From Zyvox] doxycycline AdvReac hypotension Verified 07/22/22 17:03 levofloxacin [From Levaquin] AdvReac hypotension Verified 07/22/22 17:03 linezolid [From Zyvox] AdvReac Other Verified 07/22/22 17:03 morphine AdvReac hallucinati Verified 07/22/22 17:03 ons piperacillin [From Zosyn] AdvReac hypotension Verified 07/22/22 17:03 sulfamethoxazole AdvReac hypotension Verified 07/22/22 17:03 [From Bactrim] tazobactam [From Zosyn] AdvReac hypotension Verified 07/22/22 17:03 trimethoprim [From Bactrim] AdvReac hypotension Verified 07/22/22 17:03 vancomycin AdvReac developed Verified 07/22/22 17:03 toxic levels Surgical History H/O cervical polypectomy H/O dilation and curettage History of cystoscopy History of esophagogastroduodenoscopy (EGD) History of tonsillectomy and adenoidectomy History of tympanoplasty Hx of hand surgery Hx of shoulder surgery S/P laparoscopic procedure Social History household members: spouse Smoking Status: Never smoker alcohol intake: never substance use type: does not use what type of physical activity do you participate in: none seatbelt use: always do you feel safe at home: Yes 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[employer] [facility] Constitutional Constitutional ED: Denies chills or fever(s) Eyes Eyes: Denies change in vision or discharge from eye(s) ENT ENT ED: Denies discharge from eye(s), rhinorrhea or sore throat Cardiovascular Cardiovascular: Denies chest pain or palpitations Respiratory/Chest Respiratory/Chest: Denies cough or dyspnea Gastrointestinal Gastrointestinal: Reports abdominal pain and constipation; Denies diarrhea, nausea or vomiting Musculoskeletal Musculoskeletal: Denies back pain or extremity pain Integumentary Denies Abrasions or rash Neurologic Neurologic: Reports weakness; Denies headache(s) Allergic/Immunologic Allergic/Immunologic ED: Denies lip swelling or urticaria EXAM Physical Exam Narrative Exam Narrative: Patient sitting upright in bed no acute distress. Nontoxic-appearing. Const Vital Signs: 07/22/22 16:55 07/22/22 18:19 07/22/22 18:27 Temperature 97.2 F L Temperature Source Temporal Pulse Rate 82 68 Respiratory Rate 16 14 Blood Pressure 119/80 138/83 H Blood Pressure Mean 93 101 Pulse Ox 97 97 96 Oxygen Delivery Method Room Air Room Air Room Air Positive well nourished and well developed General Appearance ED: well developed HEENT Reports moist mucous membranes Eyes EOMs intact bilaterally Chest Wall inspection of chest normal and palpation of chest normal Resp normal respiratory effort and clear to auscultation bilaterally Cardio regular rate and regular rhythm GI GI Narrative: Abdomen is soft and nontender. Hypoactive bowel sounds noted. Suprapubic catheter site clean. Neuro Sensorium / Orientation: alert Psych mental status grossly normal Skin no rashes or lesions noted MDM MDM MDM Narrative Medical decision making narrative: Patient placed on air sampling and monitoring. EKG obtained along with chest x-ray and soft tissue neck x-ray. Lab work and urinalysis ordered along with urine culture. Patient given liter of IV fluids. She is given Zofran for nausea. Lab Data Attestation: I reviewed the patient's lab results. Labs: Laboratory Results - last 24 hr 07/22/22 07/22/22 07/22/22 18:00 18:00 18:00 WBC 9.3 RBC 4.61 Hgb 14.3 Hct 44.9 MCV 97.4 MCH 31.0 MCHC 31.8 L RDW Std Deviation 49.3 H RDW Coeff of Niurka 13.9 Plt Count 187 MPV 10.3 Immature Gran % (Auto) 0.400 Neut % (Auto) 57.6 Lymph % (Auto) 25.4 Hancock % (Auto) 7.6 Eos % (Auto) 8.1 H Baso % (Auto) 0.9 Absolute Neuts (auto) 5.4 Absolute Lymphs (auto) 2.36 Nucleated RBC % 0 PT 13.6 INR 1.1 APTT 27.2 Sodium 140 Potassium 3.9 Chloride 108 H Carbon Dioxide 25.0 Anion Gap 7 BUN 34 H Creatinine 1.42 H Estim Creat Clear Calc 37.99 Est GFR (MDRD) Af Amer 47 L Est GFR (MDRD) Non-Af 39 L BUN/Creatinine Ratio 23.9 H Glucose 76 Lactic Acid Calcium 9.1 Total Bilirubin 0.40 AST 19 ALT 26 Alkaline Phosphatase 104 Total Protein 7.1 Albumin 3.0 L Globulin 4.1 Albumin/Globulin Ratio 0.7 L Urine Color Urine Clarity Urine pH Ur Specific [place] Urine Protein Urine Glucose (UA) Urine Ketones Urine Occult Blood Urine Nitrite Urine Bilirubin Urine Urobilinogen Ur Leukocyte Esterase Urine RBC Urine WBC Ur Squamous Epith Cells Urine Bacteria Urine Mucus Urine Yeast 07/22/22 07/22/22 18:00 19:00 WBC RBC Hgb Hct MCV MCH MCHC RDW Std Deviation RDW Coeff of Niurka Plt Count MPV Immature Gran % (Auto) Neut % (Auto) Lymph % (Auto) Hancock % (Auto) Eos % (Auto) Baso % (Auto) Absolute Neuts (auto) Absolute Lymphs (auto) Nucleated RBC % PT INR APTT Sodium Potassium Chloride Carbon Dioxide Anion Gap BUN Creatinine Estim Creat Clear Calc Est GFR (MDRD) Af Amer Est GFR (MDRD) Non-Af BUN/Creatinine Ratio Glucose Lactic Acid 0.6 Calcium Total Bilirubin AST ALT Alkaline Phosphatase Total Protein Albumin Globulin Albumin/Globulin Ratio Urine Color Yellow Urine Clarity Sl. Cloudy Urine pH 6.0 Ur Specific [place] 1.020 Urine Protein 15 H Urine Glucose (UA) Normal Urine Ketones Negative Urine Occult Blood 10 H Urine Nitrite Negative Urine Bilirubin Negative Urine Urobilinogen Normal Ur Leukocyte Esterase 500 H Urine RBC 5-10 SEEN Urine WBC 50-100 SEEN Ur Squamous Epith Cells 0-5 SEEN Urine Bacteria 1+ Urine Mucus 0 SEEN Urine Yeast 2+ Radiography Chest X-Ray - ED: 1 View, Read by ED Physician and Chronic Changes (Right hemidiaphragm elevation.) Diagnostic Testing: Clinical Impression(s) from Imaging Studies Chest X-Ray 07/22/22 18:32 IMPRESSION: Elevation of the right hemidiaphragm. No focal infiltrate. Electronically Signed: Dhruv Bee MD at 19:25 EDT , Soft Tissue Neck X-Ray 07/22/22 18:32 IMPRESSION: Unremarkable x-ray soft tissue neck. Electronically Signed: Dhruv Bee MD at 19:26 EDT , Treatment and Re-Evaluation Narrative: Chest x-ray reveals chronic changes with right hemidiaphragm elevation. Soft tissue neck x-ray reveals no obvious abnormalities per my interpretation. Radiology interpretation for both studies are reviewed. Lab work reveals normal white count. Chemistry studies significant for BUN of 34 and a creatinine of 1.42. This is actually improved when compared to her most recent labs. LFTs are unremarkable. Urinalysis shows 1+ bacteria with 50-100 white cells and 500 leukocyte esterase. Nitrites are negative. This is improved when compared to her last 2 urinalysis studies. This will be sent for culture. She may have colonization as her catheter has not been changed out since late June. On repeat evaluation patient looks much improved. She is tolerating p.o. fluids without difficulty. She states that she is hungry and feels that she could eat a meal and feels well enough to sit up in her chair. is comfortable caring for her at home. I will write her Zofran for home as needed. Discharge Plan Triage Chief Complaint: Fatigue ED Provider: Sharita Coronel Dx/Rx/DC Orders Clinical Impression: Nausea, Fatigue, Multiple sclerosis Instructions: ED Weakness (Uncertain Cause) Prescriptions: New ondansetron 4 mg tablet,disintegrating 4 mg PO Q8H PRN (Reason: nausea and vomiting) Qty: 10 0RF No Action loratadine [Claritin] 10 mg tablet 10 mg PO DAILY bisacodyl 10 MG suppository 10 mg RECTAL DAILY acetaminophen 500 MG tablet 1,000 mg PO Q6H PRN PRN (Reason: Pain) lactulose 20 GM/30 ML solution 60 gm PO QHS Rx Instructions: QHS polysaccharide iron complex 150 MG capsule 150 mg PO DAILY baclofen 20 MG tablet 20 mg PO TID melatonin 5 MG capsule 10 mg PO QHS magnesium oxide 400 MG tablet 300 mg PO QHS mirtazapine 15 MG tablet 45 mg PO QHS qtszznuzjpf-H5-Hwngcpuxp serr 1 EACH tablet 1 tab PO DAILY vitamin B complex-folic acid 0.4 MG tablet 1 tab PO DAILY zhxke-ka-3-gfb-hgj-iimhxhd-ast 1 EACH capsule 1 ea PO DAILY methylphenidate HCl [Ritalin] 10 mg Tablet 10 mg PO DAILY donepezil 10 mg Tablet 10 mg PO QHS lrdhqrv-oatn-hydlo-oreg-capryl 100 mg-150 mg- 50 mg-150 mg Capsule 2 cap PO BID cholecalciferol (vitamin D3) 1,250 mcg (50,000 unit) capsule 50,000 unit PO QMONTH hydrocodone-acetaminophen 1 TABLET tablet 1 tab PO Q4H PRN PRN (Reason: Pain) 3 Days Qty: 10 0RF rjqxgzqd-dfuthpr-qmaz-lutein Tablet 1 tab PO DAILY cinacalcet 30 mg tablet 30 mg PO QODAY Label Comments: TAKE 1 TABLET BY MOUTH EVERY OTHER DAY WITH FOOD nystatin 100,000 unit/mL Suspension 500,000 unit PO 4X/DAY 5 Days Qty: 100 0RF amoxicillin-pot clavulanate 875-125 mg tablet 1 tab PO BID 5 Days Qty: 10 0RF fexofenadine 180 mg Tablet 180 mg PO DAILY Vitamin C 1,000 mg Capsule, Extended Release 1 cap PO DAILY memantine 5-10 mg tablets,dose pack 10 tab PO BID krill oil 500 mg Capsule 500 mg PO BID Primary Care Provider: Alexandria Carranza Referrals: Alexandria Carranza MD [Primary Care Provider] - 3-5 Days if not improving Disposition Disposition: Home, Self Care
[2022-07-22 18:19] VITALS: O2SAT 97
[2022-07-22] MEDS: 0.9% Normal Saline 1,000 ML 999 ML IV (18:22)
[2022-07-22] MEDS: Ondansetron 4 MG/2 ML Vial IV (18:25)
[2022-07-22 18:27] VITALS: BP 138/83; PULSE 68; RESP 14; O2SAT 96
[2022-07-22 18:28] LABS: Absolute Lymphocyte Count 2.36 X10^3/uL (0.83-4.51); Absolute Neutrophil Count 5.4 X10^3/uL (2.0-7.7); Basophil# 0.08 X10^3/uL; Basophil% 0.9 % (0-1); Eosinophil# 0.75 X10^3/uL; Eosinophils% 8.1 % (0-5); Hematocrit 44.9 % (37-47); Hemoglobin 14.3 g/dL (12.0-15.0); Lymphocyte # 2.36 X10^3/ul (0.83-4.51); Lymphocyte % 25.4 % (19-41); Mean Corp Hgb Conc 31.8 g/dL (32-36); Mean Corpuscular Volume 97.4 fL (81-99); Mean Platelet Vol. 10.3 fl (6.2-12.0); Monocyte# 0.71 X10^3/uL; Monocyte% 7.6 % (0-10); NRBC Flagged by Analyzer 0 % (0-5); Neutrophil # 5.36 X10^3/uL (2.7-7.7); Neutrophil % 57.6 % (47-70); Platelet Count 187 K/mm3 (150-450); RBC Distribution Width CV 13.9 % (11.6-14.6); RBC Distribution Width SD 49.3 fl (35.1-43.9); Red Blood Count 4.61 M/mm3 (4.2-5.4); White Blood Count 9.3 K/mm3 (4.4-11.0)
--- NOTE | 2022-07-22 18:32 | RAD_ITS ---
STUDY: X-RAY - SOFT TISSUE NECK REASON FOR EXAM: Female, 67 years old. Pain TECHNIQUE: 2 view(s) of the neck were obtained. COMPARISON: None. FINDINGS: Normal visualized nasopharynx, oropharynx, hypopharynx. Normal epiglottis. Normal visualized subglottic tracheal air column. Normal prevertebral soft tissue structures. There are degenerative changes of the cervical spine with cervical spondylosis. The soft tissue structures are unremarkable. RAD/Neck for Soft Tissue IMPRESSION: Unremarkable x-ray soft tissue neck. Electronically Signed: Dhruv Bee MD at 19:26 EDT ,
--- NOTE | 2022-07-22 18:32 | RAD_ITS ---
STUDY: X-RAY CHEST REASON FOR EXAM: Female, 67 years old. Cough TECHNIQUE: Single AP portable view of the chest. COMPARISON: June 03, 2019 FINDINGS: Port on the left extends to the superior vena cava. There are monitoring devices. There is elevation of the right hemidiaphragm. There is no demonstrated pleural abnormality. Normal size heart. Normal mediastinum and ramy. Normal visualized pulmonary arteries. Normal visualized aortic arch and descending thoracic aorta. Normal visualized thoracic spine. Normal visualized ribs, clavicles, and shoulders. There is no demonstrated abnormality of the visualized soft tissue structures of the upper abdomen. RAD/Chest 1 View (Portable) IMPRESSION: Elevation of the right hemidiaphragm. No focal infiltrate. Electronically Signed: Dhruv Bee MD at 19:25 EDT ,
[2022-07-22 18:33] LABS: International Normalized Ratio 1.1; Partial Thromboplast Time 27.2 Seconds (24.1-36.2); Prothrombin Time (Protime)PT. 13.6 SECONDS (11.7-14.9)
[2022-07-22 18:41] LABS: ALB/GLOB Ratio 0.7 RATIO (0.9-2.4); AST(SGOT) 19 U/L (15-37); Alanine Aminotransfer ALT/SGPT 26 U/L (13-56); Alkaline Phosphatase 104 U/L (45-117); Anion Gap 7 (5-15); BUN 34 mg/dL (7-18); BUN/Creat Ratio 23.9 RATIO (10-20); Calcium,Total 9.1 mg/dL (8.5-10.1); Chloride 108 mmol/L (98-107); Creatinine, Serum 1.42 mg/dL (0.55-1.02); EST Glomerular Filtration Rate 39 mL/min (>60); Est Glom Filt Rate - Afr Amer 47 mL/min (>60); Estimated Creatinine Clearance 37.99 ml/min; Globulin 4.1 g/dL (2.2-4.2); Glucose 76 mg/dL (74-106); Potassium 3.9 mmol/L (3.5-5.1); Protein, Total 7.1 g/dL (6.4-8.2); Sodium Level 140 mmol/L (136-145)
[2022-07-22 19:05] LABS: Lactic Acid 0.6 mmol/L (0.4-1.9)
[2022-07-22] MEDS: 0.9% Normal Saline 1,000 ML 150 ML IV (19:09)
[2022-07-22 19:11] LABS: Mucous, Urine 0 SEEN /hpf (<or=2+)
[2022-07-22 19:20] LABS: Color, Urine Yellow (Yellow); Glucose, Dipstick Normal (Normal); Ketone-Dipstick Negative (Negative); Leukocyte Esterase-Dipstick 500 /ul (Negative); Nitrite-Dipstick Negative (Negative); Occult Blood-Urine 10 /ul (Negative); Protein-Dipstick 15 mg/dl (Negative); Urine Bilirubin Dipstick Negative (Negative); Urine Clarity Sl. Cloudy (Clear); Urine Urobilinogen Normal (Normal)
[2022-07-22 19:40] LABS: Bacteria 1+ /hpf (None Seen); Red Blood Cells-Urine 5-10 SEEN /hpf (0-5); Squamous Epithelial Cells - UA 0-5 SEEN /hpf (5-10); White Blood Cells 50-100 SEEN /hpf (0-5)
[2022-07-22 19:41] LABS: Yeast-Urine 2+ /hpf (None Seen)
[2022-07-22 20:19] VITALS: BP 127/85; PULSE 71; RESP 18; TEMP 36.6; O2SAT 97
== END 2022-07-22 20:36 | disposition home or self-care (01) ==
PROVIDERS: Emergency Provider Emergency Medicine; PCP Internal Medicine; Visit Provider Emergency Medicine
DX: R11.0 Nausea (principal); G35 Multiple sclerosis; I12.9 Hypertensive chronic kidney disease with stage 1 through stage 4 chronic kidney disease, or unspecified chronic kidney disease; N18.4 Chronic kidney disease, stage 4 (severe); E78.5 Hyperlipidemia, unspecified; R53.83 Other fatigue; Z79.899 Other long term (current) drug therapy
CPT/HCPCS: 99285; 36591; 70360; 71045; 80053; 81001; 83605; 85025; 85610; 85730; 87040; 87086; 93005; J7030; A4216; J2405

== ENCOUNTER 2022-07-23 17:49 | Inpatient (IN) | payer MEDICARE, SELFPAY ==
[2022-07-23] VITALS (7 sets, daily range): BP systolic 146–151; BP diastolic 88–100; PULSE 74–79; RESP 13–16; TEMP 36–37; O2SAT 94–98; BMI 20.6; BMI 18.3
--- NOTE | 2022-07-23 18:11 | EX.ED.DYSGE1 ---
HPI History of Present Illness Chief Complaint: General Illness Narrative Narrative: History and physical is limited secondary to the patient's multiple sclerosis. 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 Patient has past medical history of multiple sclerosis and has been treated for Klebsiella and MRSA in her urine. states that she was started on Bactrim then started on doxycycline with some overlap to treat the bacteria in her urine from her suprapubic catheter. He states they change it every 2 weeks and she is almost due. While she has not had fevers or chills, she has had nausea and generalized weakness. He relates history that she was here in the emergency department yesterday, and received IV fluids which seemed to perk her up along with Zofran which helped with her nausea. She was able to brush her teeth but is now having problems with her activities of daily living. She is weak again and nauseated. She was able to take her medication, but continues to be nauseated. They called her primary care physician, Dr. Carranza who would like her admitted for IV fluids and IV antibiotics for her urine that has Klebsiella and MRSA in it. states that she is nauseated and weak again. He states that she requires admission when she gets like this before she is unresponsive from dehydration. She was only able to take a total of 200 mL of fluids today with her medication. [facility] Medical History Alcohol use Allergic rhinitis Back pain Bilateral hydronephrosis Blackout Chronic constipation CKD (chronic kidney disease) stage 4, GFR 15-29 ml/min Complicated urinary tract infection Constipation Declining functional status Dental bridge present Depression Difficulty swallowing Endometrial thickening on ultrasound History of echocardiogram History of edema History of wrist fracture Hyperlipidemia Hypertension Indwelling urethral catheter present Insomnia Iron deficiency anemia Loss of hearing Low iron Migraine headache Migraine headache MRSA colonization Multiple sclerosis Multiple sclerosis Muscle spasm Neurogenic bladder Non-smoker OAB (overactive bladder) Pelvic pain Port-A-Cath in place Right hemiparesis Urinary tract infection Uses wheelchair Vitamin D deficiency Wears glasses Home Medications bisacodyl 10 mg rectal suppository 10 mg RECTAL QODAY constipation 07/01/18 [History Last Taken 11/24/21] acetaminophen 500 mg tablet 1,000 mg PO Q6H PRN PRN Pain 02/15/19 [History Last Taken 03/25/19] lactulose 20 gram/30 mL oral solution 60 gm PO QHS constipation 03/25/19 [History Last Taken 11/23/21] baclofen 20 mg tablet 20 mg PO TID MUSCLE 05/23/19 [History Last Taken 11/24/21] magnesium oxide 400 mg (241.3 mg magnesium) tablet 400 mg PO QHS magnesium supplement 05/23/19 [History Last Taken 11/23/21] melatonin 5 mg capsule 10 mg PO QHS sleep 05/23/19 [History Last Taken 11/23/21] polysaccharide iron complex 150 mg iron capsule 150 mg PO DAILY iron replacement 05/23/19 [History Last Taken 11/24/21] glucosamine YNg-C2-Ajbbkpsua zoey 1,500 mg-400 unit-100 mg tablet 1 tab PO DAILY supplement 11/15/20 [History Last Taken Unknown] krill 1,000 mg-omega-3 170 mg-dha 50 mg-epa 80 fz-xuxwbb-dvdkt capsule 1 ea PO BID supplement 11/15/20 [History Last Taken Unknown] mirtazapine 15 mg tablet 45 mg PO QHS 11/15/20 [History Last Taken 11/23/21] vitamin B complex-folic acid 0.4 mg tablet 1 tab PO DAILY vitamin 11/15/20 [History Last Taken 11/24/21] cholecalciferol (vitamin D3) 1,250 mcg (50,000 unit) capsule 50,000 unit PO QMONTH vitamin 08/15/21 [History Last Taken 2 Weeks Ago ~11/10/21] donepezil 10 mg tablet 10 mg PO QHS memory 08/15/21 [History Last Taken 11/23/21] methylphenidate HCl 10 mg tablet (Ritalin) 10 mg PO DAILY 08/15/21 [History Last Taken 11/24/21] tumeric 100 mg-tristian 150 mg-olive 50 mg-oreg 150 mg-caprylate capsule 2 cap PO BID supplement 08/15/21 [History Last Taken 11/23/21] cinacalcet 30 mg tablet 30 mg PO QODAY hyperparathyroidism 11/24/21 [History Last Taken 11/23/21] svfsujdu-jkafaop-hdgx-lutein tablet 1 tab PO DAILY SUPPLEMENT 11/24/21 [History Last Taken 11/23/21] nystatin 100,000 unit/mL oral suspension 500,000 unit (5 mL) PO 4X/DAY 5 days #100 mL 11/27/21 [Rx Last Taken Unknown] ascorbic acid (vitamin C) 1,000 mg capsule,extended release 1 cap PO DAILY 07/22/22 [History Last Taken Unknown] fexofenadine 180 mg tablet 180 mg PO DAILY 07/22/22 [History Last Taken Unknown] krill oil 500 mg capsule 500 mg PO BID 07/22/22 [History Last Taken Unknown] memantine 5 mg-10 mg tablets in a dose pack 10 tab PO BID 07/22/22 [History Last Taken Unknown] ondansetron 4 mg disintegrating tablet 4 mg PO Q8H PRN nausea and vomiting #10 tabs 07/22/22 [Rx Last Taken Unknown] amitriptyline 10 mg tablet 10 mg PO QHS 07/23/22 [History Last Taken Unknown] ascorbic acid (vitamin C) 1,000 mg tablet,extended release (Vitamin C ER) 1,000 mg PO BREAKFAST 07/23/22 [History Last Taken Unknown] Allergy/AdvReac Type Severity Reaction Status Date / Time ciprofloxacin [From Cipro] AdvReac hypotension Verified 07/23/22 17:59 dextrose 5 % in water AdvReac Other Verified 07/23/22 17:59 [From Zyvox] doxycycline AdvReac hypotension Verified 07/23/22 17:59 levofloxacin [From Levaquin] AdvReac hypotension Verified 07/23/22 17:59 linezolid [From Zyvox] AdvReac Other Verified 07/23/22 17:59 morphine AdvReac hallucinati Verified 07/23/22 17:59 ons piperacillin [From Zosyn] AdvReac hypotension Verified 07/23/22 17:59 sulfamethoxazole AdvReac hypotension Verified 07/23/22 17:59 [From Bactrim] tazobactam [From Zosyn] AdvReac hypotension Verified 07/23/22 17:59 trimethoprim [From Bactrim] AdvReac hypotension Verified 07/23/22 17:59 vancomycin AdvReac developed Verified 07/23/22 17:59 toxic levels Surgical History H/O cervical polypectomy H/O dilation and curettage History of cystoscopy History of esophagogastroduodenoscopy (EGD) History of tonsillectomy and adenoidectomy History of tympanoplasty Hx of hand surgery Hx of shoulder surgery S/P laparoscopic procedure Social History household members: spouse Smoking Status: Never smoker alcohol intake: never substance use type: does not use what type of physical activity do you participate in: none seatbelt use: always do you feel safe at home: Yes 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 Generalized weakness. HEENT: No sore throat. No neck pain. No loss of vision. No rhinorrhea. Cardiovascular: No chest pain. No palpitations. No pedal edema. Respiratory: No cough, no shortness of breath. Abdominal: No abdominal pain. Positive nausea. No vomiting. Genitourinary: No dysuria. No hematuria. Musculoskeletal: No myalgias. No arthralgias. Neurologic: No headaches. No dizziness. No lightheadedness. Generalized weakness to the point where she cannot perform her ADLs. Skin: No rash. No change in color. Psychiatric: No depression. No anxiety. EXAM Physical Exam Narrative Exam Narrative: Afebrile. Vital signs noted. HEENT: Normocephalic. Atraumatic. PERRL, EOMI. Neck soft and supple. No point tenderness or step off. Cardiovascular: Regular rate and rhythm. No murmurs, rubs, or gallops appreciated. Respiratory: No tachypnea. Lungs clear to auscultation bilaterally. Gastrointestinal: Abdomen soft, nontender, with normoactive bowel sounds. No rebound or guarding. Positive suprapubic catheter draining yellow urine. Neurological: Awake. Alert. Consistent with multiple sclerosis. Skin: No rash. Normal color. No pallor. Musculoskeletal: No pedal edema. Muscle weakness consistent with multiple sclerosis. Const Vital Signs: 07/23/22 17:50 07/23/22 17:59 07/23/22 18:41 Temperature 96.8 F L Temperature Source Temporal Pulse Rate 77 Respiratory Rate 14 Respiratory Effort Normal Non-Labored Respiratory Pattern Normal Blood Pressure 146/93 H Blood Pressure Mean 110 Pulse Ox 94 Oxygen Delivery Method Room Air Room Air 07/23/22 19:49 07/23/22 20:59 Temperature Temperature Source Pulse Rate 75 74 Respiratory Rate 14 13 Respiratory Effort Respiratory Pattern Blood Pressure 151/100 H 147/88 H Blood Pressure Mean 117 107 Pulse Ox 96 98 Oxygen Delivery Method Room Air Room Air MDM MDM MDM Narrative Medical decision making narrative: She was given a bolus of normal saline intravenously, along with ondansetron for her nausea. I will recheck a urinalysis with urine culture and basic laboratory work to look for signs of dehydration. CBC is grossly normal with a normal white count of 10.6 and hemoglobin normal at 14.8, hematocrit 45.4. Platelet count 197. CMP shows chloride of 108 BUN of 36 and creatinine of 1.27, no significant change from previous labs. Lactic acid is normal at 0.6. Urinalysis shows greater than 100 WBCs with 10-20 RBCs but this is a suprapubic catheter specimen. Her states that she usually does not surmount fevers, and that they were told by their urologist, Dr. Parada that it should be treated when she exhibits signs of weakness. She was started on Rocephin and urine cultures are pending, given her multiple adverse effects from various antibiotics. At this point in time, after Zofran and IV fluids she states her nausea is almost resolved. I discussed the patient with Dr. Sweet for admission to the medical surgical floor. Patient is in stable condition. Lab Data Attestation: I reviewed the patient's lab results. Labs: Laboratory Results - last 24 hr 07/23/22 07/23/22 07/23/22 18:30 18:30 18:30 WBC 10.6 RBC 4.67 Hgb 14.8 Hct 45.4 MCV 97.2 MCH 31.7 MCHC 32.6 RDW Std Deviation 49.5 H RDW Coeff of Niurka 13.8 Plt Count 197 MPV 10.0 Immature Gran % (Auto) 0.300 Neut % (Auto) 63.2 Lymph % (Auto) 23.5 [place] % (Auto) 6.8 Eos % (Auto) 5.3 H Baso % (Auto) 0.9 Absolute Neuts (auto) 6.7 Absolute Lymphs (auto) 2.50 Nucleated RBC % 0 Sodium 142 Potassium 4.0 Chloride 108 H Carbon Dioxide 27.0 Anion Gap 7 BUN 36 H Creatinine 1.27 H Estim Creat Clear Calc 44.24 Est GFR (MDRD) Af Amer 54 L Est GFR (MDRD) Non-Af 45 L BUN/Creatinine Ratio 28.3 H Glucose 80 Lactic Acid 0.6 Calcium 10.2 H Total Bilirubin 0.50 AST 21 ALT 27 Alkaline Phosphatase 118 H Total Protein 7.6 Albumin 3.3 Globulin 4.3 H Albumin/Globulin Ratio 0.8 L Urine Color Urine Clarity Urine pH Ur Specific [place] Urine Protein Urine Glucose (UA) Urine Ketones Urine Occult Blood Urine Nitrite Urine Bilirubin Urine Urobilinogen Ur Leukocyte Esterase Urine RBC Urine WBC Ur Squamous Epith Cells Urine Bacteria Urine Mucus Urine Yeast 07/23/22 18:50 WBC RBC Hgb Hct MCV MCH MCHC RDW Std Deviation RDW Coeff of Niurka Plt Count MPV Immature Gran % (Auto) Neut % (Auto) Lymph % (Auto) [place] % (Auto) Eos % (Auto) Baso % (Auto) Absolute Neuts (auto) Absolute Lymphs (auto) Nucleated RBC % Sodium Potassium Chloride Carbon Dioxide Anion Gap BUN Creatinine Estim Creat Clear Calc Est GFR (MDRD) Af Amer Est GFR (MDRD) Non-Af BUN/Creatinine Ratio Glucose Lactic Acid Calcium Total Bilirubin AST ALT Alkaline Phosphatase Total Protein Albumin Globulin Albumin/Globulin Ratio Urine Color Yellow Urine Clarity Cloudy Urine pH 6.0 Ur Specific [place] 1.020 Urine Protein 15 H Urine Glucose (UA) Normal Urine Ketones Negative Urine Occult Blood 150 H Urine Nitrite Negative Urine Bilirubin Negative Urine Urobilinogen Normal Ur Leukocyte Esterase 500 H Urine RBC 10-25 SEEN Urine WBC >100 SEEN Ur Squamous Epith Cells 0-5 SEEN Urine Bacteria 4+ Urine Mucus 0 SEEN Urine Yeast 4+ Discharge Plan Dx/Rx/DC Orders Clinical Impression: Multiple sclerosis, Generalized weakness, UTI (urinary tract infection) Disposition Disposition: Acute Care Hospital [facility]
[2022-07-23] MEDS: 0.9% Normal Saline 1,000 ML 1000 ML IV (18:37)
[2022-07-23] MEDS: Ondansetron 4 MG/2 ML Vial IV ×2 (18:39→23:10)
[2022-07-23 18:57] LABS: Mucous, Urine 0 SEEN /hpf (<or=2+)
[2022-07-23 19:03] LABS: Absolute Neutrophil Count 6.7 X10^3/uL (2.0-7.7); Basophil% 0.9 % (0-1); Eosinophil# 0.56 X10^3/uL; Eosinophils% 5.3 % (0-5); Hematocrit 45.4 % (37-47); Hemoglobin 14.8 g/dL (12.0-15.0); Lymphocyte % 23.5 % (19-41); Mean Corp Hgb Conc 32.6 g/dL (32-36); Mean Corpuscular Hgb 31.7 pg (27.0-32.0); Mean Corpuscular Volume 97.2 fL (81-99); Monocyte# 0.72 X10^3/uL; Monocyte% 6.8 % (0-10); NRBC Flagged by Analyzer 0 % (0-5); Neutrophil # 6.73 X10^3/uL (2.7-7.7); Neutrophil % 63.2 % (47-70); Platelet Count 197 K/mm3 (150-450); RBC Distribution Width CV 13.8 % (11.6-14.6); RBC Distribution Width SD 49.5 fl (35.1-43.9); Red Blood Count 4.67 M/mm3 (4.2-5.4); White Blood Count 10.6 K/mm3 (4.4-11.0)
[2022-07-23 19:08] LABS: POSITIVE COUNT NO; POSITIVE DIFFERENTIAL NO; POSITIVE MORPHOLOGY NO
[2022-07-23 19:15] LABS: Color, Urine Yellow (Yellow); Glucose, Dipstick Normal (Normal); Ketone-Dipstick Negative (Negative); Leukocyte Esterase-Dipstick 500 /ul (Negative); Nitrite-Dipstick Negative (Negative); Occult Blood-Urine 150 /ul (Negative); Protein-Dipstick 15 mg/dl (Negative); Urine Bilirubin Dipstick Negative (Negative); Urine Clarity Cloudy (Clear); Urine Urobilinogen Normal (Normal)
[2022-07-23 19:29] LABS: ALB/GLOB Ratio 0.8 RATIO (0.9-2.4); AST(SGOT) 21 U/L (15-37); Alanine Aminotransfer ALT/SGPT 27 U/L (13-56); Albumin, Serum 3.3 g/dL (3.2-5.0); Alkaline Phosphatase 118 U/L (45-117); Anion Gap 7 (5-15); BUN 36 mg/dL (7-18); BUN/Creat Ratio 28.3 RATIO (10-20); Calcium,Total 10.2 mg/dL (8.5-10.1); Chloride 108 mmol/L (98-107); Creatinine, Serum 1.27 mg/dL (0.55-1.02); EST Glomerular Filtration Rate 45 mL/min (>60); Est Glom Filt Rate - Afr Amer 54 mL/min (>60); Estimated Creatinine Clearance 44.24 ml/min; Globulin 4.3 g/dL (2.2-4.2); Glucose 80 mg/dL (74-106); Protein, Total 7.6 g/dL (6.4-8.2); Sodium Level 142 mmol/L (136-145)
[2022-07-23 19:29] LABS: Bacteria 4+ /hpf (None Seen); Red Blood Cells-Urine 10-25 SEEN /hpf (0-5); Squamous Epithelial Cells - UA 0-5 SEEN /hpf (5-10); White Blood Cells >100 SEEN /hpf (0-5)
[2022-07-23 19:30] LABS: Yeast-Urine 4+ /hpf (None Seen)
[2022-07-23 19:33] LABS: Lactic Acid 0.6 mmol/L (0.4-1.9)
--- NOTE | 2022-07-23 20:19 | CM.ED ---
advised that patient's MDTere wants patient admitted to acute. Patient has an UTI that has failed 2 rounds of outpatient treatment and patient's reports he needs a respite. Patient is also week. Later, MD advised that patient's is not requesting SNF for patient but acute admission for respite. Tisha MERLOS
--- NOTE | 2022-07-23 20:45 | HP.PCM.HOS_ITS ---
HPI - General General Date of Admission: 07/23/22 Date of Service: 07/23/22 Chief Complaint: Fatigue HPI Narrative KEN CASON, is a 67 F with a significant history of multiple sclerosis; urosepsis; neurogenic bladder; chronic suprapubic catheter who presents with fatigue that started about 9 days ago after a previous bout that started in June 2022. Associated with her symptom is nausea for which reason she is has had poor fluid intake. Patient's report that at baseline patient is able to be set up to perform some of her ADLs. However she has had difficulty with ADLs which previously she could perform. reports some mild confusion. Of note patient has completed a recent course of Bactrim and doxycycline. She has also completed another course of Bactrim and is almost done completing another course of doxycycline. Patient's who was at the bedside thinks that patient presentation is reminiscent to history of UTI. 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 Patient's MS has been stable for a long time. And is hoping that if patient needs any rehab home rehab be considered instead of being placed at a facility. Of note patient PCP called the emergency and requested the patient be admitted at the hospital. Reportedly under similar circumstances patient does well with IV fluids. Patient was at the emergency department the day before presentation and she was discharged home. At time she received IV Zofran to help with her symptoms. However at home p.o. Zofran does not help for nausea. History was predominantly taken from patient's as patient has speech impediment. [facility] Medical History Alcohol use Allergic rhinitis Back pain Bilateral hydronephrosis Blackout Chronic constipation CKD (chronic kidney disease) stage 4, GFR 15-29 ml/min Complicated urinary tract infection Constipation Declining functional status Dental bridge present Depression Difficulty swallowing Endometrial thickening on ultrasound History of echocardiogram History of edema History of wrist fracture Hyperlipidemia Hypertension Indwelling urethral catheter present Insomnia Iron deficiency anemia Loss of hearing Low iron Migraine headache Migraine headache MRSA colonization Multiple sclerosis Multiple sclerosis Muscle spasm Neurogenic bladder Non-smoker OAB (overactive bladder) Pelvic pain Port-A-Cath in place Right hemiparesis Urinary tract infection Uses wheelchair Vitamin D deficiency Wears glasses Home Medications bisacodyl 10 mg rectal suppository 10 mg RECTAL QODAY constipation 07/01/18 [History Last Taken 11/24/21] acetaminophen 500 mg tablet 1,000 mg PO Q6H PRN PRN Pain 02/15/19 [History Last Taken 03/25/19] lactulose 20 gram/30 mL oral solution 60 gm PO QHS constipation 03/25/19 [History Last Taken 11/23/21] baclofen 20 mg tablet 20 mg PO TID MUSCLE 05/23/19 [History Last Taken 11/24/21] magnesium oxide 400 mg (241.3 mg magnesium) tablet 400 mg PO QHS magnesium supplement 05/23/19 [History Last Taken 11/23/21] melatonin 5 mg capsule 10 mg PO QHS sleep 05/23/19 [History Last Taken 11/23/21] polysaccharide iron complex 150 mg iron capsule 150 mg PO DAILY iron replacement 05/23/19 [History Last Taken 11/24/21] glucosamine XTv-N6-Myzlamzdr zoey 1,500 mg-400 unit-100 mg tablet 1 tab PO DAILY supplement 11/15/20 [History Last Taken Unknown] krill 1,000 mg-omega-3 170 mg-dha 50 mg-epa 80 tv-hkerzp-szupk capsule 1 ea PO BID supplement 11/15/20 [History Last Taken Unknown] mirtazapine 15 mg tablet 45 mg PO QHS 11/15/20 [History Last Taken 11/23/21] vitamin B complex-folic acid 0.4 mg tablet 1 tab PO DAILY vitamin 11/15/20 [History Last Taken 11/24/21] cholecalciferol (vitamin D3) 1,250 mcg (50,000 unit) capsule 50,000 unit PO QMONTH vitamin 08/15/21 [History Last Taken 2 Weeks Ago ~11/10/21] donepezil 10 mg tablet 10 mg PO QHS memory 08/15/21 [History Last Taken 11/23/21] methylphenidate HCl 10 mg tablet (Ritalin) 10 mg PO DAILY 08/15/21 [History Last Taken 11/24/21] tumeric 100 mg-tristian 150 mg-olive 50 mg-oreg 150 mg-caprylate capsule 2 cap PO BID supplement 08/15/21 [History Last Taken 11/23/21] cinacalcet 30 mg tablet 30 mg PO QODAY hyperparathyroidism 11/24/21 [History Last Taken 11/23/21] dpsyvuut-mdqcbzn-jstv-lutein tablet 1 tab PO DAILY SUPPLEMENT 11/24/21 [History Last Taken 11/23/21] nystatin 100,000 unit/mL oral suspension 500,000 unit (5 mL) PO 4X/DAY 5 days #100 mL 11/27/21 [Rx Last Taken Unknown] ascorbic acid (vitamin C) 1,000 mg capsule,extended release 1 cap PO DAILY 07/22/22 [History Last Taken Unknown] fexofenadine 180 mg tablet 180 mg PO DAILY 07/22/22 [History Last Taken Unknown] krill oil 500 mg capsule 500 mg PO BID 07/22/22 [History Last Taken Unknown] memantine 5 mg-10 mg tablets in a dose pack 10 tab PO BID 07/22/22 [History Last Taken Unknown] ondansetron 4 mg disintegrating tablet 4 mg PO Q8H PRN nausea and vomiting #10 tabs 07/22/22 [Rx Last Taken Unknown] amitriptyline 10 mg tablet 10 mg PO QHS 07/23/22 [History Last Taken Unknown] ascorbic acid (vitamin C) 1,000 mg tablet,extended release (Vitamin C ER) 1,000 mg PO BREAKFAST 07/23/22 [History Last Taken Unknown] Allergy/AdvReac Type Severity Reaction Status Date / Time ciprofloxacin [From Cipro] AdvReac hypotension Verified 07/23/22 17:59 dextrose 5 % in water AdvReac Other Verified 07/23/22 17:59 [From Zyvox] doxycycline AdvReac hypotension Verified 07/23/22 17:59 levofloxacin [From Levaquin] AdvReac hypotension Verified 07/23/22 17:59 linezolid [From Zyvox] AdvReac Other Verified 07/23/22 17:59 morphine AdvReac hallucinati Verified 07/23/22 17:59 ons piperacillin [From Zosyn] AdvReac hypotension Verified 07/23/22 17:59 sulfamethoxazole AdvReac hypotension Verified 07/23/22 17:59 [From Bactrim] tazobactam [From Zosyn] AdvReac hypotension Verified 07/23/22 17:59 trimethoprim [From Bactrim] AdvReac hypotension Verified 07/23/22 17:59 vancomycin AdvReac developed Verified 07/23/22 17:59 toxic levels Family History Mother Osteoporosis Grandmother Breast cancer Surgical History H/O cervical polypectomy H/O dilation and curettage History of cystoscopy History of esophagogastroduodenoscopy (EGD) History of tonsillectomy and adenoidectomy History of tympanoplasty Hx of hand surgery Hx of shoulder surgery S/P laparoscopic procedure Social History household members: spouse housing: house Smoking Status: Never smoker alcohol intake: never substance use type: does not use what type of physical activity do you participate in: none seatbelt use: always do you feel safe at home: Yes 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 All other systems were reviewed and are negative Vital Signs Vital Signs Vital Signs: 07/23/22 17:50 07/23/22 17:59 07/23/22 18:41 Temperature 96.8 F L Temperature Source Temporal Pulse Rate 77 Respiratory Rate 14 Respiratory Effort Normal Non-Labored Respiratory Pattern Normal Blood Pressure 146/93 H Blood Pressure Mean 110 Pulse Ox 94 Oxygen Delivery Method Room Air Room Air 07/23/22 19:49 Temperature Temperature Source Pulse Rate 75 Respiratory Rate 14 Respiratory Effort Respiratory Pattern Blood Pressure 151/100 H Blood Pressure Mean 117 Pulse Ox 96 Oxygen Delivery Method Room Air Weight Weight: 65.2 kg Body Mass Index (BMI) 20.6 Physical Exam Narrative Physical exam: General: Well-nourished, well-developed. Head: Normocephalic, atraumatic, no tenderness Eyes: Vision is grossly intact. EOMI ENT, no trauma, moist mucous membranes, no rhinorrhea Neck: Nontender, full range of motion, no spinal tenderness, deformities, step- off CVS: Regular rate and rhythm. S1-S2 present. No murmur, gallop or rub. Respiratory : clear to auscultation bilaterally, chest wall nontender, no wheezing Abdomen: Soft, nontender, nondistended, normal bowel sounds, no masses : Suprapubic catheter in place Back: Nontender, no CVA tenderness, no midline spinal tenderness, deformities, step-offs Extremities: Decreased strength in all 4 extremities. Contracted fingers of bilateral hands. Skin: Normal color, no trauma, abrasions Neuro: Alert, cranial nerves II through XII grossly intact. Psychiatry: Normal mood. Normal affect. Not depressed. Not anxious. Results Lab / Micro Data Result Diagrams: 07/23/22 18:30 07/23/22 18:30 Labs: Laboratory Results - last 24 hr 07/23/22 18:30: WBC 10.6, RBC 4.67, Hgb 14.8, Hct 45.4, MCV 97.2, MCH 31.7, MCHC 32.6, RDW Std Deviation 49.5 H, RDW Coeff of Niurka 13.8, Plt Count 197, MPV 10.0, Immature Gran % (Auto) 0.300, Neut % (Auto) 63.2, Lymph % (Auto) 23.5, [place] % (Auto) 6.8, Eos % (Auto) 5.3 H, Baso % (Auto) 0.9, Absolute Neuts (auto) 6.7, Absolute Lymphs (auto) 2.50, Nucleated RBC % 0 07/23/22 18:30: Sodium 142, Potassium 4.0, Chloride 108 H, Carbon Dioxide 27.0, Anion Gap 7, BUN 36 H, Creatinine 1.27 H, Estim Creat Clear Calc 44.24, Est GFR (MDRD) Af Amer 54 L, Est GFR (MDRD) Non-Af 45 L, BUN/Creatinine Ratio 28.3 H, Glucose 80, Calcium 10.2 H, Total Bilirubin 0.50, AST 21, ALT 27, Alkaline Phosphatase 118 H, Total Protein 7.6, Albumin 3.3, Globulin 4.3 H, Albumin/Globulin Ratio 0.8 L 07/23/22 18:30: Lactic Acid 0.6 07/23/22 18:50: Urine Color Yellow, Urine Clarity Cloudy, Urine pH 6.0, Ur Specific [place] 1.020, Urine Protein 15 H, Urine Glucose (UA) Normal, Urine Ketones Negative, Urine Occult Blood 150 H, Urine Nitrite Negative, Urine Bilirubin Negative, Urine Urobilinogen Normal, Ur Leukocyte Esterase 500 H, Urine RBC 10-25 SEEN, Urine WBC >100 SEEN, Ur Squamous Epith Cells 0-5 SEEN, Urine Bacteria 4+, Urine Mucus 0 SEEN, Urine Yeast 4+ Assessment & Plan Assessment/Plan (1) Debility: (2) Abnormal urinalysis: PLAN: Plan Debility PT and OT to work with patient. Case management consult. Of note patient's does not want patient to go to the TCU at a hospital and has no one patient to be discharged to any other facility and is hoping to get patient home with home rehab. Abnormal urinalysis Urinalysis with leukocyte esterase of 500 consistent with previous. Negative urine nitrites. Urine WBC more than 100; normal urine squamous epithelial cells; urine bacteria 4+. Doubt UTI. Likely conization. However patient's thinks the patient's symptoms may be from UTI. Previous microbiology reviewed showed MRSA in her urine and Klebsiella. Received ceftriaxone at the emergency department. Ceftriaxone continued. We will put patient on vancomycin. Reportedly vancomycin is listed as allergy secondary to elevated levels. Vancomycin to be managed by pharmacy. DVT prophylaxis Patient does not want patient to get a chemical thromboprophylaxis secondary to history of easy bruising. SCDs ordered. Charges/Coding Visit Charges Inpatient E&M: 76423 Init Hosp L2
[2022-07-23] MEDS: Ceftriaxone 1 GM/50 ML BAG IV (20:56)
[2022-07-23] MEDS: Baclofen 10 MG Tablet 20 MG PO (23:15)
[2022-07-23] MEDS: MELATONIN 10 MG TABLET PO (23:15)
[2022-07-23] MEDS: Memantine Hydrochloride 10 MG Tablet PO (23:15)
[2022-07-23] MEDS: Mirtazapine 15 MG Tablet 45 MG PO (23:16)
[2022-07-23] MEDS: Magnesium Chloride 64 MG Delay Rel.Tablet 128 MG PO (23:16)
[2022-07-23] MEDS: Amitriptyline 10 MG Tablet PO (23:17)
[2022-07-23] MEDS: Lactulose 20 GM/30 ML UDC 60 GM PO (23:18)
[2022-07-24] VITALS (9 sets, daily range): BP systolic 95–128; BP diastolic 57–83; PULSE 84–94; RESP 16–18; TEMP 36.4–37; O2SAT 91–96
[2022-07-24] MEDS: 0.9% Normal Saline 1,000 ML 100 ML IV ×3 (00:11→21:47)
--- NOTE | 2022-07-24 04:18 | PCM.RX.CS ---
Consult Pharmacy has been consulted to manage selected antiobiotic: Vancomycin Type of Consult: New start Labs: Sodium 142 mmol/L (136-145) 07/23/22 18:30 Potassium 4.0 mmol/L (3.5-5.1) 07/23/22 18:30 Chloride 108 mmol/L (98-107) H 07/23/22 18:30 Carbon Dioxide 27.0 mmol/L (21.0-32.0) 07/23/22 18:30 Anion Gap 7 (5-15) 07/23/22 18:30 BUN 36 mg/dL (7-18) H 07/23/22 18:30 Creatinine 1.27 mg/dL (0.55-1.02) H 07/23/22 18:30 Est GFR (MDRD) Af Amer 54 mL/min (>60) L 07/23/22 18:30 Est GFR (MDRD) Non-Af 45 mL/min (>60) L 07/23/22 18:30 BUN/Creatinine Ratio 28.3 RATIO (10-20) H 07/23/22 18:30 Glucose 80 mg/dL (74-106) 07/23/22 18:30 Goal Trough: 10-15 mcg/mL Pharmacy Plan for Drug Dosing: Pharmacy Service will continue to monitor and adjust dosing as required. Medications Vancomycin HCl 750 mg/ Sodium (Chloride) 265 mls @ 250 mls/hr IV Q24H MARY Discontinued Medications Vancomycin HCl 750 mg/ Sodium (Chloride) 265 mls @ 250 mls/hr IV X1 ONE Stop: 07/24/22 00:03 Last Admin: 07/24/22 01:07 Dose: Infused Follow-Up Labs: Trough Vancomycin Labs to be done on [date and time ordered]: 07/25 @ [id number]
[2022-07-24 04:44] LABS: Absolute Lymphocyte Count 3.04 X10^3/uL (0.83-4.51); Absolute Neutrophil Count 5.5 X10^3/uL (2.0-7.7); Basophil# 0.09 X10^3/uL; Basophil% 0.9 % (0-1); Eosinophil# 0.76 X10^3/uL; Eosinophils% 7.5 % (0-5); Hematocrit 39.9 % (37-47); Hemoglobin 12.7 g/dL (12.0-15.0); Lymphocyte # 3.04 X10^3/ul (0.83-4.51); Lymphocyte % 29.8 % (19-41); Mean Corp Hgb Conc 31.8 g/dL (32-36); Mean Corpuscular Hgb 31.2 pg (27.0-32.0); Monocyte# 0.75 X10^3/uL; Monocyte% 7.4 % (0-10); NRBC Flagged by Analyzer 0 % (0-5); Neutrophil # 5.49 X10^3/uL (2.7-7.7); Neutrophil % 53.8 % (47-70); Platelet Count 191 K/mm3 (150-450); RBC Distribution Width CV 13.6 % (11.6-14.6); RBC Distribution Width SD 49.3 fl (35.1-43.9); Red Blood Count 4.07 M/mm3 (4.2-5.4); White Blood Count 10.2 K/mm3 (4.4-11.0)
[2022-07-24 05:16] LABS: Anion Gap 5 (5-15); BUN 30 mg/dL (7-18); BUN/Creat Ratio 22.7 RATIO (10-20); Calcium,Total 8.6 mg/dL (8.5-10.1); Chloride 113 mmol/L (98-107); Creatinine, Serum 1.32 mg/dL (0.55-1.02); EST Glomerular Filtration Rate 43 mL/min (>60); Est Glom Filt Rate - Afr Amer 52 mL/min (>60); Glucose 77 mg/dL (74-106); Potassium 3.9 mmol/L (3.5-5.1); Sodium Level 144 mmol/L (136-145)
[2022-07-24] MEDS: Baclofen 10 MG Tablet 20 MG PO ×3 (06:10→21:52)
[2022-07-24] MEDS: Donepezil HCl 10 MG Tablet PO (08:56)
[2022-07-24] MEDS: Ascorbic Acid 500 MG Tablet 1000 MG PO (08:56)
[2022-07-24] MEDS: Memantine Hydrochloride 10 MG Tablet PO ×2 (08:56→21:52)
[2022-07-24] MEDS: Iron Polysaccharide Complex 150 MG CAPSULE PO (08:56)
[2022-07-24] MEDS: Vitamin B Comp W-C Capsule 1 CAP PO (08:56)
[2022-07-24] MEDS: Loratadine 10 MG Tablet PO (08:56)
[2022-07-24] MEDS: 0.9% Saline Lock 10 ML Syringe IV (09:10)
[2022-07-24] MEDS: Ondansetron 4 MG/2 ML Vial IV (09:11)
[2022-07-24] MEDS: Methylphenidate HCl 5 MG Tablet 10 MG PO (09:22)
--- NOTE | 2022-07-24 11:00 | CASEMGMT ---
RN CM Face to Face with patient for initial transition planning/care coordination assessment. RN CM introduced self and role at [facility]. Patient lying in bed, alert and oriented, at bedside. willing to participate in assessment and is able to answer all questions appropriately. Care providers, pharmacy, and demographics verified. Patient and wish to discharge home with [facility]. Patient and decline list of HHC agencies and prefer [facility]. Patient and states they have no further needs or concerns at this time. CM to follow for discharge planning needs that may arise. PCP: Tere Specialists: Sherry, neurologist; [facility] Director; Tal urologist; , painter ordnance; Phuc, LEAD INSPECTOR Preferred Pharmacy: [facility] Insurance: [facility] Prescription Benefit: yes Living Will/HPOA: yes, Siva Sharp LNOK: Living Arrangements: Patient lives with in a single story home with ramp to enter the home. assists patient with ADLs Transportation: DME/HHC: Patient has adjustable bed, shower chair, BSC, boris, grab bars, hand held shower, wheelchair, pulse ox, and home oxygen at 4lpm HS through [facility]. Patient has been to TCU in the past. Patient has had [facility] in the past. CM to make referral to [facility] for nursing and therapy. Disposition Plan: Patient to discharge home with C, family support, and follow-up plans in place. Kelsie DUONG, RN, CM
[2022-07-24] MEDS: proMETHazine 25 MG/ML Syringe 12.5 MG IM (11:11)
--- NOTE | 2022-07-24 11:42 | CASEMGMT ---
Addendum entered by Kelsie Reyes 07/24/22 12:51: Per Sienna at [facility], they can accept pt and do SOC 07/27/22. CM to follow and Green sheet on chart. Zachariah SU CM Original Note: Per Jasmeet Kruse RN CM, would like [facility] for SN, PT/OT. Order placed in [facility] and sent via [facility]. Call to Sienna at [facility] with referral, voices understanding. Zachariah SU CM
--- NOTE | 2022-07-24 12:50 | PN.HOSP_ITS ---
Subjective Subjective Patient seen and examined. She was alert difficulty with expressive aphasia. She was unable to articulate exactly what she wanted to say. Unable to do comprehensive review of systems as is difficult to understand patient. Subsequently in the day she was able to become more alert and eat some breakfast though she did complain of nausea. Review of systems otherwise negative. Objective Data Objective Data Vital Signs: Vital Signs Temp Pulse Resp BP Pulse Ox O2 Del Method O2 Flow Rate 97.6 F L 84 18 95/57 L 91 Room Air 4 07/24/22 11:00 07/24/22 11:00 07/24/22 11:00 07/24/22 11:00 07/24/22 11:00 07/24/22 11:00 07/24/22 11:00 Oxygen Flow Rate (L/min) 4 Oxygen Delivery Method Room Air Weight: 127 lb 10.362 oz Body Mass Index (BMI) 18.3 Intake & Output: Intake and Output for Last 24 Hours 07/22/22 07/23/22 07/24/22 23:59 23:59 23:59 Intake Total 1050 / 1700 2065 / 2065 Output Total 600 / 600 Balance 1050 / 1400 1465 / 1465 Lab / Micro Data Result Diagrams: 07/24/22 04:35 07/24/22 04:35 Labs: Laboratory Results - last 24 hr 07/23/22 18:30: WBC 10.6, RBC 4.67, Hgb 14.8, Hct 45.4, MCV 97.2, MCH 31.7, MCHC 32.6, RDW Std Deviation 49.5 H, RDW Coeff of Niurka 13.8, Plt Count 197, MPV 10.0, Immature Gran % (Auto) 0.300, Neut % (Auto) 63.2, Lymph % (Auto) 23.5, [place] % (Auto) 6.8, Eos % (Auto) 5.3 H, Baso % (Auto) 0.9, Absolute Neuts (auto) 6.7, Absolute Lymphs (auto) 2.50, Nucleated RBC % 0 07/23/22 18:30: Sodium 142, Potassium 4.0, Chloride 108 H, Carbon Dioxide 27.0, Anion Gap 7, BUN 36 H, Creatinine 1.27 H, Estim Creat Clear Calc 44.24, Est GFR (MDRD) Af Amer 54 L, Est GFR (MDRD) Non-Af 45 L, BUN/Creatinine Ratio 28.3 H, Glucose 80, Calcium 10.2 H, Total Bilirubin 0.50, AST 21, ALT 27, Alkaline Phosphatase 118 H, Total Protein 7.6, Albumin 3.3, Globulin 4.3 H, Albumin/Globulin Ratio 0.8 L 07/23/22 18:30: Lactic Acid 0.6 07/23/22 18:50: Urine Color Yellow, Urine Clarity Cloudy, Urine pH 6.0, Ur Specific [place] 1.020, Urine Protein 15 H, Urine Glucose (UA) Normal, Urine Ketones Negative, Urine Occult Blood 150 H, Urine Nitrite Negative, Urine Bilirubin Negative, Urine Urobilinogen Normal, Ur Leukocyte Esterase 500 H, Urine RBC 10-25 SEEN, Urine WBC >100 SEEN, Ur Squamous Epith Cells 0-5 SEEN, Urine Bacteria 4+, Urine Mucus 0 SEEN, Urine Yeast 4+ 07/24/22 04:35: WBC 10.2, RBC 4.07 L, Hgb 12.7, Hct 39.9, MCV 98.0, MCH 31.2, MCHC 31.8 L, RDW Std Deviation 49.3 H, RDW Coeff of Niurka 13.6, Plt Count 191, MPV 10.0, Immature Gran % (Auto) 0.600, Neut % (Auto) 53.8, Lymph % (Auto) 29.8, [place] % (Auto) 7.4, Eos % (Auto) 7.5 H, Baso % (Auto) 0.9, Absolute Neuts (auto) 5.5, Absolute Lymphs (auto) 3.04, Nucleated RBC % 0 07/24/22 04:35: Sodium 144, Potassium 3.9, Chloride 113 H, Carbon Dioxide 26.0, Anion Gap 5, BUN 30 H, Creatinine 1.32 H, Estim Creat Clear Calc 37.80, Est GFR (MDRD) Af Amer 52 L, Est GFR (MDRD) Non-Af 43 L, BUN/Creatinine Ratio 22.7 H, Glucose 77, Calcium 8.6 Micro: Microbiology 07/23/22 18:50 Urine, Catheterized Urine Culture - Preliminary Gram negative michell Yeast Like Organism Physical Exam Const alert Orientation / Consciousness: lethargic HEENT head/scalp atraumatic Head and Scalp: normocephalic Mouth: dry mucous membranes Resp normal respiratory effort, no retractions, no use of accessory muscles and clear to auscultation bilaterally Cardio regular rate, regular rhythm, S1 normal heart sound, S2 normal heart sound and no murmurs GI normal to inspection, nondistended, normoactive bowel sounds, soft to palpation and non-tender Extremity normal to inspection Neuro oriented x3 Neuro Narrative: very frail and weak. Expressive aphasia due to severe weakness Sensorium / Orientation: awake and alert Assessment & Plan Assessment/Plan (1) Nausea: (2) Fatigue: (3) Multiple sclerosis: (4) Debility: (5) UTI (urinary tract infection): PLAN: Plan #UTI * patient does appear to have chronic bacteriuria, though her urine showed 4+ bacteria this time, which is higher than usual * I do think it is adivsable to treat with IV antibiotics. SHe is currently on IV vancomycin and ceftriaxone * urine cultures pending. Recent cultures grew MRSA and Klebsiella * hydrate gently with iVF * #Multiple sclerosis * Patient has had multiple sclerosis for many years and according to her , they have been told by her neurologist that she does not have active MS. * mentions that previous time that she has had any type of infection, she has had such profound debility and he has been told that he may be due to received a flareup of MS. I do agree with this and think that this might be losing with her current presentation. * PT OT on board. Fall precautions. Patient has started to improve slightly since being started on IV antibiotics. * on baclofen * #Intractable nausea: * states patient has been having intractable nausea that is limiting her ability to eat or drink. * On IV Zofran. We will add on IM Phenergan. * We will get speech consult as states her breath smells of gastric contents and that limits her ability to eat well. * #Debility * likely due to UTI and MS * PT/OT on board. Fall precautions * DVT prophylaxis; lovenox Charges/Coding Visit Charges Inpatient E&M: 63637 Subs Hosp L3
[2022-07-24] MEDS: Bisacodyl 10 MG Suppository RC (14:27)
[2022-07-24] MEDS: Ensure Plus High Protein 120 ML LIQUID PO (14:27)
--- NOTE | 2022-07-24 15:28 | CHAPLAIN ---
Type of Pastoral Visit _x__ Initial Visit ___ Follow-up Visit ___ On-call Visit ___ General Patient Visit ___ Spiritual Assessment ___ Family Conference ___ Bereavement ___ Rapid Response ___ Code Blue ___ Other (describe below) Pastoral Care Referral From _x__ Patient _x__ Family ___ Nurse ___ Physician ___ Recordist ___ Extract Operator ___ Other (describe below) Sacrament/Intervention _x__ Active listening ___ Anointing ___ Religion ___ Bereavement ___ Communion ___ Justine exploration ___ _x__ Life review _x__ Prayer ___ Reconciliation ___ Sacrament of Sick ___ Supportive presence ___ Wedding ___ Other (describe below) Pastoral Comments patient has been seen in previous admissions; spouse is always with her and very attentive to her needs; pt is unable to do many tasks although spouse says she does more when she is feeling better and healthy; they have a system that works for them at home; spouse does all the talking and indicates level of care, and any concerns; spouse is optimistic about future; welcomes prayer and presence
[2022-07-24] MEDS: Ceftriaxone 1 GM/50 ML BAG IV (21:47)
[2022-07-24] MEDS: Lactulose 20 GM/30 ML UDC 60 GM PO (21:51)
[2022-07-24] MEDS: Mirtazapine 15 MG Tablet 45 MG PO (21:52)
[2022-07-24] MEDS: Amitriptyline 10 MG Tablet PO (21:52)
[2022-07-24] MEDS: Magnesium Chloride 64 MG Delay Rel.Tablet 128 MG PO (21:52)
[2022-07-24] MEDS: MELATONIN 10 MG TABLET PO (22:17)
[2022-07-25] VITALS (8 sets, daily range): BP systolic 117–153; BP diastolic 69–93; PULSE 71–108; RESP 18–20; TEMP 36.4–36.6; O2SAT 92–98
[2022-07-25] MEDS: Baclofen 10 MG Tablet 20 MG PO ×3 (05:57→21:11)
[2022-07-25 06:52] LABS: Absolute Lymphocyte Count 2.46 X10^3/uL (0.83-4.51); Absolute Neutrophil Count 6.5 X10^3/uL (2.0-7.7); Basophil# 0.09 X10^3/uL; Basophil% 0.9 % (0-1); Eosinophil# 0.68 X10^3/uL; Eosinophils% 6.5 % (0-5); Hematocrit 38.8 % (37-47); Hemoglobin 12.5 g/dL (12.0-15.0); Lymphocyte # 2.46 X10^3/ul (0.83-4.51); Lymphocyte % 23.4 % (19-41); Mean Corp Hgb Conc 32.2 g/dL (32-36); Mean Corpuscular Hgb 31.7 pg (27.0-32.0); Mean Corpuscular Volume 98.5 fL (81-99); Mean Platelet Vol. 10.1 fl (6.2-12.0); Monocyte# 0.75 X10^3/uL; Monocyte% 7.1 % (0-10); NRBC Flagged by Analyzer 0 % (0-5); Neutrophil # 6.51 X10^3/uL (2.7-7.7); Neutrophil % 61.8 % (47-70); Platelet Count 157 K/mm3 (150-450); RBC Distribution Width CV 13.8 % (11.6-14.6); Red Blood Count 3.94 M/mm3 (4.2-5.4); White Blood Count 10.5 K/mm3 (4.4-11.0)
[2022-07-25 07:26] LABS: Anion Gap 5 (5-15); BUN 29 mg/dL (7-18); Calcium,Total 8.9 mg/dL (8.5-10.1); Chloride 113 mmol/L (98-107); Creatinine, Serum 1.26 mg/dL (0.55-1.02); EST Glomerular Filtration Rate 45 mL/min (>60); Est Glom Filt Rate - Afr Amer 54 mL/min (>60); Estimated Creatinine Clearance 40.35 ml/min; Glucose 86 mg/dL (74-106); Potassium 3.9 mmol/L (3.5-5.1); Sodium Level 143 mmol/L (136-145)
[2022-07-25] MEDS: 0.9% Normal Saline 1,000 ML 100 ML IV ×2 (09:53→21:08)
[2022-07-25] MEDS: Methylphenidate HCl 5 MG Tablet 10 MG PO (09:55)
[2022-07-25] MEDS: Vitamin B Comp W-C Capsule 1 CAP PO (09:55)
[2022-07-25] MEDS: Ascorbic Acid 500 MG Tablet 1000 MG PO (09:56)
[2022-07-25] MEDS: Donepezil HCl 10 MG Tablet PO (09:57)
[2022-07-25] MEDS: Ensure Plus High Protein 120 ML LIQUID PO ×3 (09:57→21:14)
[2022-07-25] MEDS: Loratadine 10 MG Tablet PO (09:57)
[2022-07-25] MEDS: Cinacalcet HCl 30 MG Tablet PO (09:58)
[2022-07-25] MEDS: Iron Polysaccharide Complex 150 MG CAPSULE PO (09:58)
[2022-07-25] MEDS: Memantine Hydrochloride 10 MG Tablet PO ×2 (09:58→21:11)
--- NOTE | 2022-07-25 10:48 | PN.HOSP_ITS ---
Subjective Subjective Patient seen and examined. was by her bedside. Sh is looking better today and was actually eating her breakfast on her own. Reviw of systems is otherwise negative. Objective Data Objective Data Vital Signs: Vital Signs Temp Pulse Resp BP Pulse Ox O2 Del Method O2 Flow Rate 97.9 F 76 18 117/69 98 Nasal Cannula 4 07/25/22 09:45 07/25/22 09:45 07/25/22 09:45 07/25/22 09:45 07/25/22 09:45 07/25/22 09:46 07/25/22 09:46 Oxygen Flow Rate (L/min) 4 Oxygen Delivery Method Nasal Cannula Weight: 130 lb 1.164 oz Body Mass Index (BMI) 18.3 Intake & Output: Intake and Output for Last 24 Hours 07/23/22 07/24/22 07/25/22 23:59 23:59 23:59 Intake Total 1050 / 1700 3715 / 3715 1265 / 1265 Output Total 2050 / 2300 900 / 900 Balance 1050 / 1400 1665 / 1415 365 / 365 Lab / Micro Data Result Diagrams: 07/25/22 06:24 07/25/22 06:24 Labs: Laboratory Results - last 24 hr 07/25/22 06:24: WBC 10.5, RBC 3.94 L, Hgb 12.5, Hct 38.8, MCV 98.5, MCH 31.7, MCHC 32.2, RDW Std Deviation 50.0 H, RDW Coeff of Niurka 13.8, Plt Count 157, MPV 10.1, Immature Gran % (Auto) 0.300, Neut % (Auto) 61.8, Lymph % (Auto) 23.4, Bee % (Auto) 7.1, Eos % (Auto) 6.5 H, Baso % (Auto) 0.9, Absolute Neuts (auto) 6.5, Absolute Lymphs (auto) 2.46, Nucleated RBC % 0 07/25/22 06:24: Sodium 143, Potassium 3.9, Chloride 113 H, Carbon Dioxide 25.0, Anion Gap 5, BUN 29 H, Creatinine 1.26 H, Estim Creat Clear Calc 40.35, Est GFR (MDRD) Af Amer 54 L, Est GFR (MDRD) Non-Af 45 L, BUN/Creatinine Ratio 23.0 H, Glucose 86, Calcium 8.9 Micro: Microbiology 07/23/22 18:50 Urine, Catheterized Urine Culture - 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 Yeast Like Organism Physical Exam Const alert Constitutional Narrative: frail HEENT head/scalp atraumatic Head and Scalp: normocephalic Mouth: oral and palatal mucosa normal Eyes PERRL, EOMs intact bilaterally and conjunctivae normal Neck no lymphadenopathy and supple Resp normal respiratory effort, no retractions, no use of accessory muscles and clear to auscultation bilaterally Cardio regular rate, regular rhythm, S1 normal heart sound, S2 normal heart sound and no murmurs GI normal to inspection, nondistended, normoactive bowel sounds, soft to palpation and non-tender Extremity normal to inspection and full ROM Neuro oriented x3 Neuro Narrative: still frail, but looking much better. 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 * Urine culture from 07/22/2022 grew Klebsiella oxytoca and yeast. * * #Multiple sclerosis * Patient has had multiple sclerosis for many years and according to her , they have been told by her neurologist that she does not have active MS. * PT OT on board. Fall precautions. * on baclofen * patient doing much better today. * #Intractable nausea: * On IV Zofran and IM phenergan * doing much better. Now able to eat. * #Debility * likely due to UTI and MS * PT/OT on board. Fall precautions * DVT prophylaxis; lovenox Disposition: anticipate discharge over the next 1-2 days. Charges/Coding Visit Charges Inpatient E&M: 27023 Subs Hosp L2
[2022-07-25] MEDS: Bisacodyl 10 MG Suppository RC (11:42)
[2022-07-25] MEDS: FLU VACC QS2022-23(6MOS UP)/PF 60 MCG/0.5 ML SYRINGE IM (16:08)
[2022-07-25] MEDS: Lactulose 20 GM/30 ML UDC 60 GM PO (21:09)
[2022-07-25] MEDS: MELATONIN 10 MG TABLET PO (21:11)
[2022-07-25] MEDS: Mirtazapine 15 MG Tablet 45 MG PO (21:11)
[2022-07-25] MEDS: Magnesium Chloride 64 MG Delay Rel.Tablet 128 MG PO (21:11)
[2022-07-25] MEDS: Amitriptyline 10 MG Tablet PO (21:12)
[2022-07-25] MEDS: Ceftriaxone 1 GM/50 ML BAG IV (21:12)
[2022-07-25 23:13] LABS: Vancomycin, Trough Level 10.9 ug/mL (5.0-15.0)
--- NOTE | 2022-07-25 23:56 | PCM.RX.CS ---
Consult Pharmacy has been consulted to manage selected antiobiotic: Vancomycin Type of Consult: Follow-up Labs: Sodium 143 mmol/L (136-145) 07/25/22 06:24 Potassium 3.9 mmol/L (3.5-5.1) 07/25/22 06:24 Chloride 113 mmol/L (98-107) H 07/25/22 06:24 Carbon Dioxide 25.0 mmol/L (21.0-32.0) 07/25/22 06:24 Anion Gap 5 (5-15) 07/25/22 06:24 BUN 29 mg/dL (7-18) H 07/25/22 06:24 Creatinine 1.26 mg/dL (0.55-1.02) H 07/25/22 06:24 Est GFR (MDRD) Af Amer 54 mL/min (>60) L 07/25/22 06:24 Est GFR (MDRD) Non-Af 45 mL/min (>60) L 07/25/22 06:24 BUN/Creatinine Ratio 23.0 RATIO (10-20) H 07/25/22 06:24 Glucose 86 mg/dL (74-106) 07/25/22 06:24 Vancomycin Trough 10.9 ug/mL (5.0-15.0) 07/25/22 22:30 Microbiology: Microbiology 07/23/22 18:50 Urine, Catheterized Urine Culture - 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 TROUGH 10.9 @ 23.5 HRS. NO CHANGES FOLLOW UP TROUGH IN 2 DAYS Follow-Up Labs: Trough Vancomycin Labs to be done on [date and time ordered]: 07/27 @ 8971
[2022-07-26] VITALS (7 sets, daily range): BP systolic 118–154; BP diastolic 73–99; PULSE 72–107; RESP 18–20; TEMP 36.3–36.8; O2SAT 92–98
--- NOTE | 2022-07-26 06:01 | NURSING ---
pt noted lethargic at this time. 6 am med not provided at this time.
[2022-07-26 06:22] LABS: Absolute Lymphocyte Count 2.17 X10^3/uL (0.83-4.51); Absolute Neutrophil Count 7.5 X10^3/uL (2.0-7.7); Basophil# 0.08 X10^3/uL; Basophil% 0.7 % (0-1); Eosinophils% 7.8 % (0-5); Hematocrit 40.4 % (37-47); Hemoglobin 12.8 g/dL (12.0-15.0); Lymphocyte # 2.17 X10^3/ul (0.83-4.51); Lymphocyte % 18.8 % (19-41); Mean Corp Hgb Conc 31.7 g/dL (32-36); Mean Corpuscular Hgb 30.8 pg (27.0-32.0); Mean Corpuscular Volume 97.3 fL (81-99); Mean Platelet Vol. 10.2 fl (6.2-12.0); Monocyte# 0.83 X10^3/uL; Monocyte% 7.2 % (0-10); NRBC Flagged by Analyzer 0 % (0-5); Neutrophil # 7.54 X10^3/uL (2.7-7.7); Neutrophil % 65.1 % (47-70); Platelet Count 165 K/mm3 (150-450); RBC Distribution Width CV 13.8 % (11.6-14.6); RBC Distribution Width SD 49.6 fl (35.1-43.9); Red Blood Count 4.15 M/mm3 (4.2-5.4); White Blood Count 11.6 K/mm3 (4.4-11.0)
[2022-07-26] MEDS: 0.9% Normal Saline 1,000 ML 100 ML IV (06:44)
[2022-07-26 06:52] LABS: Anion Gap 6 (5-15); BUN 22 mg/dL (7-18); BUN/Creat Ratio 18.8 RATIO (10-20); Calcium,Total 8.5 mg/dL (8.5-10.1); Chloride 108 mmol/L (98-107); Creatinine, Serum 1.17 mg/dL (0.55-1.02); EST Glomerular Filtration Rate 49 mL/min (>60); Est Glom Filt Rate - Afr Amer 59 mL/min (>60); Estimated Creatinine Clearance 43.53 ml/min; Glucose 87 mg/dL (74-106); Potassium 3.5 mmol/L (3.5-5.1); Sodium Level 140 mmol/L (136-145)
[2022-07-26] MEDS: Donepezil HCl 10 MG Tablet PO (09:48)
[2022-07-26] MEDS: Memantine Hydrochloride 10 MG Tablet PO ×2 (09:48→21:39)
[2022-07-26] MEDS: Methylphenidate HCl 5 MG Tablet 10 MG PO (09:48)
[2022-07-26] MEDS: Vitamin B Comp W-C Capsule 1 CAP PO (09:48)
[2022-07-26] MEDS: Ascorbic Acid 500 MG Tablet 1000 MG PO (09:48)
[2022-07-26] MEDS: Iron Polysaccharide Complex 150 MG CAPSULE PO (09:49)
[2022-07-26] MEDS: Loratadine 10 MG Tablet PO (09:49)
--- NOTE | 2022-07-26 12:18 | PN.HOSP_ITS ---
Subjective Subjective Patient seen and examined. She has no active complaints. was by her bedside. He said she didnt sleep very well, and says it was because the lights were on and her tv was on. She is being fed by speech therapy today. Review of systems is otherwise negative. Objective Data Objective Data Vital Signs: Vital Signs Temp Pulse Resp BP Pulse Ox O2 Del Method O2 Flow Rate 97.6 F L 76 18 118/73 98 Room Air 4 07/26/22 11:52 07/26/22 11:52 07/26/22 11:52 07/26/22 11:52 07/26/22 11:52 07/26/22 11:52 07/26/22 11:52 Oxygen Flow Rate (L/min) 4 Oxygen Delivery Method Room Air Weight: 130 lb 4.691 oz Body Mass Index (BMI) 18.3 Intake & Output: Intake and Output for Last 24 Hours 07/24/22 07/25/22 07/26/22 23:59 23:59 23:59 Intake Total 3715 / 3715 3975 / 3975 1546.67 / 1546.67 Output Total 2050 / 2300 3800 / 3800 550 / 550 Balance 1665 / 1415 175 / 175 996.67 / 996.67 Lab / Micro Data Result Diagrams: 07/26/22 05:51 07/26/22 05:51 Labs: Laboratory Results - last 24 hr 07/25/22 22:30: Vancomycin Trough 10.9 07/26/22 05:51: WBC 11.6 H, RBC 4.15 L, Hgb 12.8, Hct 40.4, MCV 97.3, MCH 30.8, MCHC 31.7 L, RDW Std Deviation 49.6 H, RDW Coeff of Niurka 13.8, Plt Count 165, MPV 10.2, Immature Gran % (Auto) 0.400, Neut % (Auto) 65.1, Lymph % (Auto) 18.8 L, [place] % (Auto) 7.2, Eos % (Auto) 7.8 H, Baso % (Auto) 0.7, Absolute Neuts (auto) 7.5, Absolute Lymphs (auto) 2.17, Nucleated RBC % 0 07/26/22 05:51: Sodium 140, Potassium 3.5, Chloride 108 H, Carbon Dioxide 26.0, Anion Gap 6, BUN 22 H, Creatinine 1.17 H, Estim Creat Clear Calc 43.53, Est GFR (MDRD) Af Amer 59 L, Est GFR (MDRD) Non-Af 49 L, BUN/Creatinine Ratio 18.8, Glucose 87, Calcium 8.5 Micro: Microbiology 07/23/22 18:50 Urine, Catheterized Urine Culture - Final Klebsiella oxytoca Presumptive C albicans Physical Exam Const alert Constitutional Narrative: frail HEENT head/scalp atraumatic and moist oral mucous membranes Head and Scalp: normocephalic Mouth: oral and palatal mucosa normal Eyes PERRL, EOMs intact bilaterally and conjunctivae normal Neck no lymphadenopathy and supple Resp normal respiratory effort, no retractions, no use of accessory muscles and clear to auscultation bilaterally Cardio regular rate, regular rhythm, S1 normal heart sound, S2 normal heart sound and no murmurs GI normal to inspection, nondistended, normoactive bowel sounds, soft to palpation and non-tender Extremity no clubbing, cyanosis or edema Neuro oriented x3 Neuro Narrative: still frail looking Sensorium / Orientation: awake and alert Psych affect normal Psych Narrative: still frail Assessment & Plan Assessment/Plan (1) Nausea: (2) Fatigue: (3) Multiple sclerosis: (4) Debility: (5) UTI (urinary tract infection): PLAN: Plan #UTI * patient does appear to have chronic bacteriuria, though her urine showed 4+ bacteria this time, which is higher than usual * on IV ceftriaxone and vancomycin * urine cultures growing Klebsiella oxytoca and Presumptivae marlys albicans * Urine culture from 07/22/2022 grew Klebsiella oxytoca and yeast. * will dc antibiotics * requesting ID consult because he wants her to be on a prophylactic antibiotic regimen for UTI * * #Multiple sclerosis * Patient has had multiple sclerosis for many years and according to her , they have been told by her neurologist that she does not have active MS. * PT OT on board. Fall precautions. * on baclofen * patient is improving * #Intractable nausea: * On IV Zofran and IM phenergan * doing much better. Now able to eat. * #Debility * likely due to UTI and MS * PT/OT on board. Fall precautions * DVT prophylaxis; lovenox Disposition: patient's wishes for her to stay one more day. Charges/Coding Visit Charges Inpatient E&M: 34708 Subs Hosp L2
[2022-07-26] MEDS: Baclofen 10 MG Tablet 20 MG PO ×2 (13:55→21:38)
[2022-07-26] MEDS: Lactulose 20 GM/30 ML UDC 60 GM PO (21:36)
[2022-07-26] MEDS: Ceftriaxone 1 GM/50 ML BAG IV (21:37)
[2022-07-26] MEDS: Ensure Plus High Protein 120 ML LIQUID PO (21:38)
[2022-07-26] MEDS: Magnesium Chloride 64 MG Delay Rel.Tablet 128 MG PO (21:38)
[2022-07-26] MEDS: Amitriptyline 10 MG Tablet PO (21:38)
[2022-07-26] MEDS: Mirtazapine 15 MG Tablet 45 MG PO (21:39)
[2022-07-26] MEDS: MELATONIN 10 MG TABLET PO (21:39)
[2022-07-26] MEDS: Acetaminophen 500 MG Tablet 1000 MG PO (23:05)
[2022-07-27 03:07] VITALS: BP 131/94; PULSE 94; RESP 20; TEMP 37; O2SAT 95
[2022-07-27 03:09] VITALS: BP 131/94; PULSE 94; RESP 20; TEMP 37; O2SAT 95
[2022-07-27] MEDS: Baclofen 10 MG Tablet 20 MG PO ×3 (05:38→22:22)
[2022-07-27] MEDS: 0.9% Saline Lock 10 ML Syringe IV ×2 (08:39→11:53)
--- NOTE | 2022-07-27 08:43 | NURSING ---
Pt's 0800 medication not given at this time per pt request. Pt will take later this morning.
[2022-07-27 08:44] LABS: Absolute Lymphocyte Count 2.72 X10^3/uL (0.83-4.51); Absolute Neutrophil Count 5.9 X10^3/uL (2.0-7.7); Basophil# 0.08 X10^3/uL; Basophil% 0.8 % (0-1); Eosinophil# 0.62 X10^3/uL; Hematocrit 39.9 % (37-47); Hemoglobin 12.8 g/dL (12.0-15.0); Lymphocyte # 2.72 X10^3/ul (0.83-4.51); Lymphocyte % 26.2 % (19-41); Mean Corp Hgb Conc 32.1 g/dL (32-36); Mean Corpuscular Hgb 31.3 pg (27.0-32.0); Mean Corpuscular Volume 97.6 fL (81-99); Monocyte# 1.04 X10^3/uL; NRBC Flagged by Analyzer 0 % (0-5); Neutrophil # 5.89 X10^3/uL (2.7-7.7); Neutrophil % 56.5 % (47-70); Platelet Count 166 K/mm3 (150-450); RBC Distribution Width CV 13.9 % (11.6-14.6); RBC Distribution Width SD 49.6 fl (35.1-43.9); Red Blood Count 4.09 M/mm3 (4.2-5.4); White Blood Count 10.4 K/mm3 (4.4-11.0)
[2022-07-27 09:20] LABS: Anion Gap 3 (5-15); BUN 24 mg/dL (7-18); BUN/Creat Ratio 20.2 RATIO (10-20); Calcium,Total 9.2 mg/dL (8.5-10.1); Chloride 113 mmol/L (98-107); Creatinine, Serum 1.19 mg/dL (0.55-1.02); EST Glomerular Filtration Rate 48 mL/min (>60); Est Glom Filt Rate - Afr Amer 58 mL/min (>60); Estimated Creatinine Clearance 42.95 ml/min; Glucose 91 mg/dL (74-106); Sodium Level 145 mmol/L (136-145)
[2022-07-27 09:44] VITALS: O2SAT 93
[2022-07-27 10:12] VITALS: BP 115/75; PULSE 79; RESP 17; TEMP 36.7; O2SAT 93
[2022-07-27] MEDS: Loratadine 10 MG Tablet PO (10:20)
[2022-07-27] MEDS: Ascorbic Acid 500 MG Tablet 1000 MG PO (10:20)
[2022-07-27] MEDS: Vitamin B Comp W-C Capsule 1 CAP PO (10:20)
[2022-07-27] MEDS: Iron Polysaccharide Complex 150 MG CAPSULE PO (10:21)
[2022-07-27] MEDS: Memantine Hydrochloride 10 MG Tablet PO ×2 (10:21→22:23)
[2022-07-27] MEDS: Donepezil HCl 10 MG Tablet PO (10:22)
[2022-07-27] MEDS: Methylphenidate HCl 5 MG Tablet 10 MG PO (10:23)
[2022-07-27] MEDS: Ensure Plus High Protein 120 ML LIQUID PO ×3 (10:23→22:31)
[2022-07-27] MEDS: Cinacalcet HCl 30 MG Tablet PO (10:24)
[2022-07-27] MEDS: Bisacodyl 10 MG Suppository RC (10:24)
--- NOTE | 2022-07-27 11:51 | PCM.PN.HOSP ---
Subjective Subjective Follow-up on acute UTI/intractable nausea and vomiting/debility: Patient was seen and examined. He has been outside at bedside. She apparently has been very lethargic the whole morning. Her p.o. intake is down. She was started on IV fluids. Objective Data Objective Data Vital Signs: Vital Signs Temp Pulse Resp BP Pulse Ox O2 Del Method O2 Flow Rate 98.0 F 79 17 115/75 93 Room Air 4 07/27/22 10:12 07/27/22 10:12 07/27/22 10:12 07/27/22 10:12 07/27/22 10:12 07/27/22 10:12 07/27/22 08:48 Oxygen Flow Rate (L/min) 4 Oxygen Delivery Method Room Air Weight: 59.3 kg Body Mass Index (BMI) 18.3 Intake & Output: Intake and Output for Last 24 Hours 07/25/22 07/26/22 07/27/22 23:59 23:59 23:59 Intake Total 3975 / 3975 2816.67 / 2816.67 120 / 120 Output Total 3800 / 3800 1750 / 1750 250 / 250 Balance 175 / 175 1066.67 / 1066.67 -130 / -130 Lab / Micro Data Result Diagrams: 07/27/22 08:25 07/27/22 08:25 Labs: Laboratory Results - last 24 hr 07/27/22 08:25: WBC 10.4, RBC 4.09 L, Hgb 12.8, Hct 39.9, MCV 97.6, MCH 31.3, MCHC 32.1, RDW Std Deviation 49.6 H, RDW Coeff of Niurka 13.9, Plt Count 166, MPV 10.0, Immature Gran % (Auto) 0.500, Neut % (Auto) 56.5, Lymph % (Auto) 26.2, [place] % (Auto) 10.0, Eos % (Auto) 6.0 H, Baso % (Auto) 0.8, Absolute Neuts (auto) 5.9, Absolute Lymphs (auto) 2.72, Nucleated RBC % 0 07/27/22 08:25: Sodium 145, Potassium 4.0, Chloride 113 H, Carbon Dioxide 29.0, Anion Gap 3 L, BUN 24 H, Creatinine 1.19 H, Estim Creat Clear Calc 42.95, Est GFR (MDRD) Af Amer 58 L, Est GFR (MDRD) Non-Af 48 L, BUN/Creatinine Ratio 20.2 H, Glucose 91, Calcium 9.2 Micro: Microbiology 07/23/22 18:50 Urine, Catheterized Urine Culture - Final Klebsiella oxytoca Presumptive C albicans Physical Exam Narrative Physical exam: General: Alert, Oriented x3, Cooperative, frail HEENT: Atraumatic Oral: Moist Mucosa Neck: Supple Lungs: Diminished to auscultation Cardiovascular: HS I+II, regular, no murmurs Abdomen: Bowel Sounds Present, Soft, Non Tender Extremities: No edema Skin: No rashes, No breakdown Neurological: Alert oriented x3, paraparesis Psych/Mental Status: Appropriate Assessment & Plan Assessment/Plan (1) Debility: (2) UTI (urinary tract infection): PLAN: Plan 1. Acute Klebsiella UTI due to suprapubic catheter, Remains on IV ceftriaxone (day 4) Patient with chronic bacteriuria from suprapubic catheter ID consulted for recommendations on long-term oral suppressive therapy for UTIs 2. Multiple sclerosis, chronic, with associated cognitive impairment and paraplegia Continue on memantine, Ritalin, Remeron 3. Dehydration, related to poor p.o. intake, IV fluids today, reassess tomorrow 4. Debility, acute on chronic, patient to be discharged home to the care of the and home health care Charges/Coding Visit Charges Inpatient E&M: 86542 Subs Hosp L2
[2022-07-27] MEDS: Lactated Ringers 1,000 ML 150 ML IV ×2 (11:52→18:55)
[2022-07-27] MEDS: Nystatin Powder 15gm Bottle 1 APPLIC TOPICAL ×2 (12:53→23:07)
--- NOTE | 2022-07-27 14:49 | PCM.CONS.GEN ---
Assessment & Plan Assessment/Plan (1) Multiple sclerosis: (2) Abnormal urinalysis: PLAN: Recurrent uti and abnormal UA. Question if this presentation is more related some JAYY and side effects from recent course of bactrim. Ucxs here with minimal bacteria, no MRSA seen. On ceftriaxone. Ok for d/c home off of abx. reports urology and PCP are interested in adding methenamine for prevention. Normally try to avoid its usage with altered GFR, but kidney function better now than it has been. I think it is worthwhile to try. Will follow, thank you HPI Consult Data Date of Consult: 07/27/22 HPI Narrative Reason for Consultation: recurrent uti HPI Narrative: KEN CASON, is a 67 F with MS, presented 07/23 with several days weakness, fatigue, nausea. Had been dx with MRSA uti in June, given bactrim then doxy. Sx briefly improved, then worsened. Came to ED, ucx done, admitted on ceftriaxone. Now improving, but not back to baseline per her . ROS unobtainable due to mental status. [facility] Medical History Alcohol use Allergic rhinitis Back pain Bilateral hydronephrosis Blackout Chronic constipation CKD (chronic kidney disease) stage 4, GFR 15-29 ml/min Complicated urinary tract infection Constipation Declining functional status Dental bridge present Depression Difficulty swallowing Endometrial thickening on ultrasound History of echocardiogram History of edema History of wrist fracture Hyperlipidemia Hypertension Indwelling urethral catheter present Insomnia Iron deficiency anemia Loss of hearing Low iron Migraine headache Migraine headache MRSA colonization Multiple sclerosis Multiple sclerosis Muscle spasm Neurogenic bladder Non-smoker OAB (overactive bladder) Pelvic pain Port-A-Cath in place Right hemiparesis Urinary tract infection Uses wheelchair Vitamin D deficiency Wears glasses Home Medications bisacodyl 10 mg rectal suppository 10 mg RECTAL DAILY constipation 07/01/18 [History Last Taken 11/24/21] acetaminophen 500 mg tablet 1,000 mg PO Q6H PRN PRN Pain 02/15/19 [History Last Taken 03/25/19] lactulose 20 gram/30 mL oral solution 60 gm PO QHS constipation 03/25/19 [History Last Taken 11/23/21] baclofen 20 mg tablet 20 mg PO TID MUSCLE 05/23/19 [History Last Taken 11/24/21] magnesium oxide 400 mg (241.3 mg magnesium) tablet 400 mg PO QHS magnesium supplement 05/23/19 [History Last Taken 11/23/21] melatonin 5 mg capsule 10 mg PO QHS sleep 05/23/19 [History Last Taken 11/23/21] polysaccharide iron complex 150 mg iron capsule 150 mg PO DAILY iron replacement 05/23/19 [History Last Taken 11/24/21] glucosamine YPs-N5-Kyeawrali zoey 1,500 mg-400 unit-100 mg tablet 1 tab PO DAILY supplement 11/15/20 [History Last Taken Unknown] krill 1,000 mg-omega-3 170 mg-dha 50 mg-epa 80 wx-qpkrhl-gnopb capsule 1 ea PO BID supplement 11/15/20 [History Last Taken Unknown] mirtazapine 15 mg tablet 45 mg PO QHS 11/15/20 [History Last Taken 11/23/21] vitamin B complex-folic acid 0.4 mg tablet 1 tab PO DAILY vitamin 11/15/20 [History Last Taken 11/24/21] cholecalciferol (vitamin D3) 1,250 mcg (50,000 unit) capsule 50,000 unit PO QMONTH vitamin 08/15/21 [History Last Taken 2 Weeks Ago ~11/10/21] donepezil 10 mg tablet 10 mg PO QHS memory 08/15/21 [History Last Taken 11/23/21] methylphenidate HCl 10 mg tablet (Ritalin) 10 mg PO DAILY 08/15/21 [History Last Taken 11/24/21] tumeric 100 mg-tristian 150 mg-olive 50 mg-oreg 150 mg-caprylate capsule 2 cap PO BID supplement 08/15/21 [History Last Taken 11/23/21] cinacalcet 30 mg tablet 30 mg PO QODAY hyperparathyroidism 11/24/21 [History Last Taken 11/23/21] ejatgiss-guottlz-kwpk-lutein tablet 1 tab PO DAILY SUPPLEMENT 11/24/21 [History Last Taken 11/23/21] nystatin 100,000 unit/mL oral suspension 500,000 unit (5 mL) PO 4X/DAY 5 days #100 mL 11/27/21 [Rx Last Taken Unknown] ascorbic acid (vitamin C) 1,000 mg capsule,extended release 1 cap PO DAILY 07/22/22 [History Last Taken Unknown] fexofenadine 180 mg tablet 180 mg PO DAILY 07/22/22 [History Last Taken Unknown] krill oil 500 mg capsule 500 mg PO BID 07/22/22 [History Last Taken Unknown] memantine 5 mg-10 mg tablets in a dose pack 10 tab PO BID 07/22/22 [History Last Taken Unknown] ondansetron 4 mg disintegrating tablet 4 mg PO Q8H PRN nausea and vomiting #10 tabs 07/22/22 [Rx Last Taken Unknown] amitriptyline 10 mg tablet 10 mg PO QHS 07/23/22 [History Last Taken Unknown] ascorbic acid (vitamin C) 1,000 mg tablet,extended release (Vitamin C ER) 1,000 mg PO BREAKFAST 07/23/22 [History Last Taken Unknown] Allergy/AdvReac Type Severity Reaction Status Date / Time ciprofloxacin [From Cipro] AdvReac hypotension Verified 07/23/22 17:59 dextrose 5 % in water AdvReac Other Verified 07/23/22 17:59 [From Zyvox] doxycycline AdvReac hypotension Verified 07/23/22 17:59 levofloxacin [From Levaquin] AdvReac hypotension Verified 07/23/22 17:59 linezolid [From Zyvox] AdvReac Other Verified 07/23/22 17:59 morphine AdvReac hallucinati Verified 07/23/22 17:59 ons piperacillin [From Zosyn] AdvReac hypotension Verified 07/23/22 17:59 sulfamethoxazole AdvReac hypotension Verified 07/23/22 17:59 [From Bactrim] tazobactam [From Zosyn] AdvReac hypotension Verified 07/23/22 17:59 trimethoprim [From Bactrim] AdvReac hypotension Verified 07/23/22 17:59 vancomycin AdvReac developed Verified 07/23/22 17:59 toxic levels Family History Mother Osteoporosis Grandmother Breast cancer Surgical History H/O cervical polypectomy H/O dilation and curettage History of cystoscopy History of esophagogastroduodenoscopy (EGD) History of tonsillectomy and adenoidectomy History of tympanoplasty Hx of hand surgery Hx of shoulder surgery S/P laparoscopic procedure Social History household members: spouse housing: house Smoking Status: Never smoker alcohol intake: never substance use type: does not use what type of physical activity do you participate in: none seatbelt use: always do you feel safe at home: Yes 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 Result Diagrams: 07/27/22 08:25 07/27/22 08:25 Labs: Laboratory Results - last 24 hr 07/27/22 08:25: WBC 10.4, RBC 4.09 L, Hgb 12.8, Hct 39.9, MCV 97.6, MCH 31.3, MCHC 32.1, RDW Std Deviation 49.6 H, RDW Coeff of Niurka 13.9, Plt Count 166, MPV 10.0, Immature Gran % (Auto) 0.500, Neut % (Auto) 56.5, Lymph % (Auto) 26.2, [place] % (Auto) 10.0, Eos % (Auto) 6.0 H, Baso % (Auto) 0.8, Absolute Neuts (auto) 5.9, Absolute Lymphs (auto) 2.72, Nucleated RBC % 0 07/27/22 08:25: Sodium 145, Potassium 4.0, Chloride 113 H, Carbon Dioxide 29.0, Anion Gap 3 L, BUN 24 H, Creatinine 1.19 H, Estim Creat Clear Calc 42.95, Est GFR (MDRD) Af Amer 58 L, Est GFR (MDRD) Non-Af 48 L, BUN/Creatinine Ratio 20.2 H, Glucose 91, Calcium 9.2
--- NOTE | 2022-07-27 15:00 | CASEMGMT ---
Per Dr. Burton, requested pt stay one more day to get more IV fluids so plan is to d/c pt tomorrow. Sienna at [facility] updated, voices understanding. Speech is recommending further speech therapy so this and SW were added to [facility] order. CM to follow. Zachariah SU CM
--- NOTE | 2022-07-27 15:30 | CASEMGMT ---
Pt's requested this RN CM to room. is updated on [facility] orders, voices understanding. is focused on getting IV fluids for pt at home and is requesting port to be kept accessed at d/c. has requested this in past and hospitalist at that time had requested that they set it up thru Dr. Carranza's office as OP. This RN CM discussed with Dr. Burton and [facility]. [facility] states they are not able to do prn fluids at home for pt. This RN CM did discuss pt coming to OP infusion for fluids and declined, stating 'That takes like an hour round trip, too much time.' Dr. Burton states will touch base with Dr. Carranza regarding iv fluids to be set up by her. Per [facility] charge, port will be de-accessed when pt is discharged. CM to follow. Zachariah SU CM
[2022-07-27 16:19] VITALS: BP 134/92; PULSE 99; RESP 18; TEMP 37.1; O2SAT 93
[2022-07-27 22:20] VITALS: BP 158/103; PULSE 108; RESP 20; TEMP 36.7; O2SAT 94
[2022-07-27] MEDS: Magnesium Chloride 64 MG Delay Rel.Tablet 128 MG PO (22:22)
[2022-07-27] MEDS: Amitriptyline 10 MG Tablet PO (22:22)
[2022-07-27] MEDS: Mirtazapine 15 MG Tablet 45 MG PO (22:23)
[2022-07-27] MEDS: MELATONIN 10 MG TABLET PO (22:23)
[2022-07-27] MEDS: Lactulose 20 GM/30 ML UDC 60 GM PO (22:24)
[2022-07-27] MEDS: Ceftriaxone 1 GM/50 ML BAG IV (22:24)
[2022-07-28] MEDS: Lactated Ringers 1,000 ML 150 ML IV ×2 (02:07→09:21)
[2022-07-28 04:52] VITALS: BP 140/97; PULSE 92; RESP 20; TEMP 36.4; O2SAT 98
[2022-07-28] MEDS: Baclofen 10 MG Tablet 20 MG PO (05:04)
[2022-07-28] MEDS: Acetaminophen 500 MG Tablet 1000 MG PO (05:04)
[2022-07-28 07:39] LABS: Absolute Lymphocyte Count 2.48 X10^3/uL (0.83-4.51); Absolute Neutrophil Count 5.9 X10^3/uL (2.0-7.7); Basophil# 0.05 X10^3/uL; Basophil% 0.5 % (0-1); Eosinophil# 0.83 X10^3/uL; Hemoglobin 11.3 g/dL (12.0-15.0); Lymphocyte # 2.48 X10^3/ul (0.83-4.51); Lymphocyte % 23.9 % (19-41); Mean Corp Hgb Conc 32.3 g/dL (32-36); Mean Corpuscular Hgb 31.4 pg (27.0-32.0); Mean Corpuscular Volume 97.2 fL (81-99); Mean Platelet Vol. 10.3 fl (6.2-12.0); Monocyte# 1.03 X10^3/uL; Monocyte% 9.9 % (0-10); NRBC Flagged by Analyzer 0 % (0-5); Neutrophil # 5.93 X10^3/uL (2.7-7.7); Neutrophil % 57.3 % (47-70); Platelet Count 150 K/mm3 (150-450); RBC Distribution Width SD 49.8 fl (35.1-43.9); White Blood Count 10.4 K/mm3 (4.4-11.0)
[2022-07-28 07:40] VITALS: O2SAT 97
[2022-07-28 08:02] LABS: Anion Gap 5 (5-15); BUN 20 mg/dL (7-18); BUN/Creat Ratio 16.5 RATIO (10-20); Calcium,Total 8.8 mg/dL (8.5-10.1); Chloride 112 mmol/L (98-107); Creatinine, Serum 1.21 mg/dL (0.55-1.02); EST Glomerular Filtration Rate 47 mL/min (>60); Est Glom Filt Rate - Afr Amer 57 mL/min (>60); Estimated Creatinine Clearance 42.45 ml/min; Glucose 90 mg/dL (74-106); Potassium 3.9 mmol/L (3.5-5.1); Sodium Level 143 mmol/L (136-145)
--- NOTE | 2022-07-28 09:30 | CASEMGMT ---
Addendum entered by Kelsie Reyes 07/28/22 14:49: Per Sienna at [facility], is declining C SN and is requesting SOC 07/30/22 instead of 07/29/22. Zachariah RN CM Addendum entered by Kelsie Reyes 07/28/22 14:19: 1318 Per Sienna at [facility], they have not heard back from Dr. Carranza's office. This RN CM received call from Sandra, nurse at Dr. Carranza's office. Sandra is updated on all, voices understanding. Sandra states she will touchbase with Dr. Carranza and then call this RN CM back with plan. Sienna at [facility] updated, voices understanding and states she will let this RN CM know if they hear anything on their end. Per Sean RN, is ready for discharge. This RN CM to room and is updated on al, voices understanding. Per , they are ready for discharge. states that the fluids are 'not an immediate need' and that he 'is confident that Dr. Carranza will get everything set up.' Sienna at [facility] updated on pt discharge, voices understanding. voices no further questions/concerns/needs and is requesting RN to room to d/c port/fluids. Zachariah RN CM Addendum entered by Kelsie Reyes 07/28/22 11:43: Per Sienna at [facility], they will not do port access teaching but Dr. Carranza is working on getting another [facility] nurse to come out and do teaching and then [facility] will be re-activated. Dr. Burton aware, voices understanding. Sienna at [facility] to keep this RN CM updated. Dr. Burton, insulation cupola charger, bedside RN, and this RN CM to room to discuss discharge plan with pt/, voices understanding. CM to update him again once here back from [facility]. CM to follow. Zachariah RN CM Addendum entered by Kelsie Reyes 07/28/22 10:15: Dr. Burton on phone with Dr. Carranza and then on speaker phone with this RN CM. Per Dr. Carranza, her office is setting up port and infusion supplies thru [facility] and she states [facility] is willing to do a refresher course for pt's on accessing ports. Dr. Carranza states that she will manage the home fluid infusions and that will call her prior to accessing port and given fluids. Dr. Carranza states that Dr. Burton and this RN CM do not need to do anything regarding the infusions/supplies. This RN CM informed Dr. Carranza that [facility] had stated they would not complete fluids at home and Dr. Carranza states she was aware but she states the nurse stated they would do a port access refresher for . This RN CM advised Dr. Carranza that I would touch base with [facility] regarding refresher and Dr. Carranza voices understanding and provided this RN CM with her cell number for any further questions/concerns. Call to Sienna at [facility] and she states that they did not agree to do port access refresher with . This RN CM asked if [facility] can contact Dr. Carranza to notify her, Sienna voices understanding. CM to follow. Zachariah SU CM Original Note: Message left for Nurse at Dr. Carranza's office to call this RN CM back. Zachariah SU CM
[2022-07-28 09:57] VITALS: BP 140/97; PULSE 92; RESP 20; TEMP 36.4; O2SAT 97
[2022-07-28] MEDS: Methylphenidate HCl 5 MG Tablet 10 MG PO (10:04)
[2022-07-28] MEDS: Vitamin B Comp W-C Capsule 1 CAP PO (10:04)
[2022-07-28] MEDS: Nystatin Powder 15gm Bottle 1 APPLIC TOPICAL (10:05)
[2022-07-28] MEDS: Donepezil HCl 10 MG Tablet PO (10:05)
[2022-07-28] MEDS: Ascorbic Acid 500 MG Tablet 1000 MG PO (10:05)
[2022-07-28] MEDS: Iron Polysaccharide Complex 150 MG CAPSULE PO (10:05)
[2022-07-28] MEDS: Loratadine 10 MG Tablet PO (10:05)
[2022-07-28] MEDS: Ergocalciferol 1.25 MG (50, 000 UNIT) Capsule PO (10:06)
[2022-07-28] MEDS: Memantine Hydrochloride 10 MG Tablet PO (10:06)
--- NOTE | 2022-07-28 10:10 | DCINST_ITS ---
Discharge Instructions Diet Discharge Diet: No restrictions Activity Discharge Activity: Return to Normal Activity Follow Up Care Test Results: Test results from this visit will be discussed in further detail at your follow- up appointment, if applicable. Discharge Plan Admission Admit Date/Time: 07/23/22 22:20 Primary Reason for Your Visit: Debility/Acute UTI Attending Provider: Eleonora Burton Primary Care Provider: Alexandria Carranza Consulting Providers: Rober Sweet ; Karen Marquez ; Ted Wright Instructions Additional Instructions / Restrictions: Note start of methenamine. Follow-up with Dr. Carranza's recommendations Discharge Orders/Prescriptions Prescriptions: New food supplemt, lactose-reduced 0.08 gram-1.5 kcal/mL Liquid 120 ml PO 4X/DAY Qty: 0 0RF methenamine hippurate 1 gram tablet 1 g PO BID 30 Days Qty: 60 0RF Continued bisacodyl 10 MG suppository 10 mg RECTAL DAILY acetaminophen 500 MG tablet 1,000 mg PO Q6H PRN PRN (Reason: Pain) lactulose 20 GM/30 ML solution 60 gm PO QHS Rx Instructions: QHS polysaccharide iron complex 150 MG capsule 150 mg PO DAILY baclofen 20 MG tablet 20 mg PO TID melatonin 5 MG capsule 10 mg PO QHS magnesium oxide 400 MG tablet 400 mg PO QHS mirtazapine 15 MG tablet 45 mg PO QHS zojxctkijxm-I0-Yynpetdke serr 1 EACH tablet 1 tab PO DAILY vitamin B complex-folic acid 0.4 MG tablet 1 tab PO DAILY qvhdc-mo-8-xdp-nja-fcmqklt-ast 1 EACH capsule 1 ea PO BID methylphenidate HCl [Ritalin] 10 mg Tablet 10 mg PO DAILY donepezil 10 mg Tablet 10 mg PO QHS oypnegj-ytgo-czwbo-oreg-capryl 100 mg-150 mg- 50 mg-150 mg Capsule 2 cap PO BID cholecalciferol (vitamin D3) 1,250 mcg (50,000 unit) capsule 50,000 unit PO QMONTH mgwdzmet-pygikhp-zkzn-lutein Tablet 1 tab PO DAILY cinacalcet 30 mg tablet 30 mg PO QODAY Label Comments: TAKE 1 TABLET BY MOUTH EVERY OTHER DAY WITH FOOD nystatin 100,000 unit/mL Suspension 500,000 unit PO 4X/DAY 5 Days Qty: 100 0RF fexofenadine 180 mg Tablet 180 mg PO DAILY memantine 5-10 mg tablets,dose pack 10 tab PO BID krill oil 500 mg Capsule 500 mg PO BID ondansetron 4 mg tablet,disintegrating 4 mg PO Q8H PRN (Reason: nausea and vomiting) Qty: 10 0RF Vitamin C 1,000 mg Tablet Extended Release 1,000 mg PO BREAKFAST amitriptyline 10 mg Tablet 10 mg PO QHS Discontinued Vitamin C 1,000 mg Capsule, Extended Release 1 cap PO DAILY Referrals / Follow Up: Alexandria Carranza MD [Primary Care Provider] - 07/31/22 9:45 am Disposition Disposition (needs filled in before D/C Order can be placed): Home Health Service
[2022-07-28] MEDS: Ensure Plus High Protein 120 ML LIQUID PO (10:37)
--- NOTE | 2022-07-28 11:09 | PCM.DC.SUM ---
Providers Date of Admission: 07/23/22 Date of Discharge: 07/28/22 Primary Care Physician: Dr. Alexandria Carranza MD Consultations 07/26/22 12:29 Consult: Infectious Disease Routine Consulting Provider: Ted Wright Reason for Consult: recurrent UTI EMERGENT Consult: No Notified: Yes Date Notified: 07/27/22 Time Notified: 08:03 Method of Notification: Answering Service Reason For Visit: DEBILITY Diagnosis Discharge Diagnosis (1) Multiple sclerosis: Status: Acute Code(s): G35 - Multiple sclerosis (2) Abnormal urinalysis: Status: Acute Code(s): R82.90 - Unspecified abnormal findings in urine (3) UTI (urinary tract infection): Status: Acute Code(s): N39.0 - Urinary tract infection, site not specified (4) Debility: Status: Acute Code(s): R53.81 - Other malaise Plan 1. Acute Klebsiella UTI due to suprapubic catheter, 2. Multiple sclerosis, chronic, with associated cognitive impairment and paraplegia 3.Debility, acute on chronic Medications at Discharge Home Medications bisacodyl 10 mg rectal suppository 10 mg RECTAL DAILY constipation 07/01/18 acetaminophen 500 mg tablet 1,000 mg PO Q6H PRN PRN Pain 02/15/19 lactulose 20 gram/30 mL oral solution 60 gm PO QHS constipation 03/25/19 baclofen 20 mg tablet 20 mg PO TID MUSCLE 05/23/19 magnesium oxide 400 mg (241.3 mg magnesium) tablet 400 mg PO QHS magnesium supplement 05/23/19 melatonin 5 mg capsule 10 mg PO QHS sleep 05/23/19 polysaccharide iron complex 150 mg iron capsule 150 mg PO DAILY iron replacement 05/23/19 glucosamine ARx-L2-Jkazcexdb zoey 1,500 mg-400 unit-100 mg tablet 1 tab PO DAILY supplement 11/15/20 krill 1,000 mg-omega-3 170 mg-dha 50 mg-epa 80 ha-nyvblu-mneeg capsule 1 ea PO BID supplement 11/15/20 mirtazapine 15 mg tablet 45 mg PO QHS 11/15/20 vitamin B complex-folic acid 0.4 mg tablet 1 tab PO DAILY vitamin 11/15/20 cholecalciferol (vitamin D3) 1,250 mcg (50,000 unit) capsule 50,000 unit PO QMONTH vitamin 08/15/21 donepezil 10 mg tablet 10 mg PO QHS memory 08/15/21 methylphenidate HCl 10 mg tablet (Ritalin) 10 mg PO DAILY 08/15/21 tumeric 100 mg-tristian 150 mg-olive 50 mg-oreg 150 mg-caprylate capsule 2 cap PO BID supplement 08/15/21 cinacalcet 30 mg tablet 30 mg PO QODAY hyperparathyroidism 11/24/21 tqydcrlu-vblulje-gitp-lutein tablet 1 tab PO DAILY SUPPLEMENT 11/24/21 nystatin 100,000 unit/mL oral suspension 500,000 unit (5 mL) PO 4X/DAY 5 days #100 mL 11/27/21 fexofenadine 180 mg tablet 180 mg PO DAILY 07/22/22 krill oil 500 mg capsule 500 mg PO BID 07/22/22 memantine 5 mg-10 mg tablets in a dose pack 10 tab PO BID 07/22/22 ondansetron 4 mg disintegrating tablet 4 mg PO Q8H PRN nausea and vomiting #10 tabs 07/22/22 amitriptyline 10 mg tablet 10 mg PO QHS 07/23/22 ascorbic acid (vitamin C) 1,000 mg tablet,extended release (Vitamin C ER) 1,000 mg PO BREAKFAST 07/23/22 food supplemt, lactose-reduced 0.08 gram-1.5 kcal/mL oral liquid 120 ml PO 4X/DAY #0 mL 07/28/22 methenamine hippurate 1 gram tablet 1 g PO BID 30 days #60 tabs 07/28/22 Hospital Course Operations None Procedures None Summary of Care Provided Minutes Spent on Discharge: 35 Hospital Course: 67 y/o female with PMHx of multiple sclerosis, neurogenic bladder/chronic suprapubic catheter who presents with fatigue, nausea, poor intake and confusion. Patient recently complete Bactrim and doxycycline. Patient was admitted to the PCU with UTI/debility. Patient's urine cultures grew Klebsiella oxytoca. She was maintained on IV ceftriaxone. Patient also received IV fluids. Patient's requested for IV fluids at home at discharge because he felt that patient improves when she is hydrated as she is not taking enough in by mouth. Discussed with Dr. Carranza at discharge, arrangements will be made for IV fluids as needed at home. Patient was discharged home with home health. Physical Exam Narrative Physical exam: General: Alert, Oriented x3, Cooperative, frail HEENT: Atraumatic Oral: Moist Mucosa Neck: Supple Lungs: Diminished to auscultation Cardiovascular: HS I+II, regular, no murmurs Abdomen: Bowel Sounds Present, Soft, Non Tender Extremities: No edema, contractures of the upper extremities Skin: No rashes, No breakdown Neurological: Alert oriented x3, paraparesis Psych/Mental Status: Appropriate Weight / BMI Weight Weight: 59.6 kg Body Mass Index (BMI) 18.3 ABG / Lab / Microbiology Data Result Diagrams: 07/28/22 07:22 07/28/22 07:22 Laboratory: Laboratory Results - last 24 hr 07/28/22 07:22: WBC 10.4, RBC 3.60 L, Hgb 11.3 L, Hct 35.0 L, MCV 97.2, MCH 31.4, MCHC 32.3, RDW Std Deviation 49.8 H, RDW Coeff of Niurka 14.0, Plt Count 150, MPV 10.3, Immature Gran % (Auto) 0.400, Neut % (Auto) 57.3, Lymph % (Auto) 23.9, Swisher % (Auto) 9.9, Eos % (Auto) 8.0 H, Baso % (Auto) 0.5, Absolute Neuts (auto) 5.9, Absolute Lymphs (auto) 2.48, Nucleated RBC % 0 07/28/22 07:22: Sodium 143, Potassium 3.9, Chloride 112 H, Carbon Dioxide 26.0, Anion Gap 5, BUN 20 H, Creatinine 1.21 H, Estim Creat Clear Calc 42.45, Est GFR (MDRD) Af Amer 57 L, Est GFR (MDRD) Non-Af 47 L, BUN/Creatinine Ratio 16.5, Glucose 90, Calcium 8.8 Microbiology: Microbiology 07/23/22 18:50 Urine, Catheterized Urine Culture - Final Klebsiella oxytoca Presumptive C albicans D/C Instructions Discharge Diet: No restrictions Meaningful Use Info Meaningful Use Diagnoses (Choose all that apply): None applicable Discharge Plan Admission Admit Date/Time: 07/23/22 22:20 Primary Reason for Your Visit: Debility/Acute UTI Attending Provider: Eleonora Burton Primary Care Provider: Alexandria Carranza Consulting Providers: Rober Sweet ; Karen Marquez ; Ted Wright Instructions Additional Instructions / Restrictions: Note start of methenamine. Follow-up with Dr. Carranza's recommendations Discharge Orders/Prescriptions Prescriptions: New food supplemt, lactose-reduced 0.08 gram-1.5 kcal/mL Liquid 120 ml PO 4X/DAY Qty: 0 0RF methenamine hippurate 1 gram tablet 1 g PO BID 30 Days Qty: 60 0RF Continued bisacodyl 10 MG suppository 10 mg RECTAL DAILY acetaminophen 500 MG tablet 1,000 mg PO Q6H PRN PRN (Reason: Pain) lactulose 20 GM/30 ML solution 60 gm PO QHS Rx Instructions: QHS polysaccharide iron complex 150 MG capsule 150 mg PO DAILY baclofen 20 MG tablet 20 mg PO TID melatonin 5 MG capsule 10 mg PO QHS magnesium oxide 400 MG tablet 400 mg PO QHS mirtazapine 15 MG tablet 45 mg PO QHS kedijopwmyf-Q2-Cefyutxxo serr 1 EACH tablet 1 tab PO DAILY vitamin B complex-folic acid 0.4 MG tablet 1 tab PO DAILY cyaif-rf-8-ocf-ndz-pqwxbde-ast 1 EACH capsule 1 ea PO BID methylphenidate HCl [Ritalin] 10 mg Tablet 10 mg PO DAILY donepezil 10 mg Tablet 10 mg PO QHS mktkqab-mpja-jxtzx-oreg-capryl 100 mg-150 mg- 50 mg-150 mg Capsule 2 cap PO BID cholecalciferol (vitamin D3) 1,250 mcg (50,000 unit) capsule 50,000 unit PO QMONTH bvmrhdeg-nqqojak-vbyy-lutein Tablet 1 tab PO DAILY cinacalcet 30 mg tablet 30 mg PO QODAY Label Comments: TAKE 1 TABLET BY MOUTH EVERY OTHER DAY WITH FOOD nystatin 100,000 unit/mL Suspension 500,000 unit PO 4X/DAY 5 Days Qty: 100 0RF fexofenadine 180 mg Tablet 180 mg PO DAILY memantine 5-10 mg tablets,dose pack 10 tab PO BID krill oil 500 mg Capsule 500 mg PO BID ondansetron 4 mg tablet,disintegrating 4 mg PO Q8H PRN (Reason: nausea and vomiting) Qty: 10 0RF Vitamin C 1,000 mg Tablet Extended Release 1,000 mg PO BREAKFAST amitriptyline 10 mg Tablet 10 mg PO QHS Discontinued Vitamin C 1,000 mg Capsule, Extended Release 1 cap PO DAILY Referrals / Follow Up: Alexandria Carranza MD [Primary Care Provider] - 07/31/22 9:45 am Disposition Disposition (needs filled in before D/C Order can be placed): Home Health Service Charges/Coding Visit Charges Inpatient E&M: 11823 Disch Hosp
[2022-07-28 13:30] VITALS: BP 140/97; PULSE 92; RESP 18; TEMP 36.4; O2SAT 97
--- NOTE | 2022-07-28 14:27 | CHAPLAIN ---
Type of Pastoral Visit ___ Initial Visit _x__ Follow-up Visit ___ On-call Visit ___ General Patient Visit ___ Spiritual Assessment ___ Family Conference ___ Bereavement ___ Rapid Response ___ Code Blue ___ Other (describe below) Pastoral Care Referral From ___ Patient _x__ Family ___ Nurse ___ Physician ___ Cook Manager ___ Tool Planer Set Up Operator ___ Other (describe below) Sacrament/Intervention _x__ Active listening ___ Anointing ___ Shinto ___ Bereavement ___ Communion _x__ Justine exploration ___ ___ Life review _x__ Prayer ___ Reconciliation ___ Sacrament of Sick _x__ Supportive presence ___ Wedding ___ Other (describe below) Pastoral Comments spouse requested spiritual care support, presence, and prayer; pt is to be discharged; spouse states that I was apprehensive about taking pt home today, but now I am feeling better about things and but we could still use a prayer; spouse also is tearful and admits that he is tired; spouse talks about some of his spiritual experiences and requests prayer for my strength and for 's best care
[2022-07-28] MEDS: 0.9% Saline Lock 10 ML Syringe IV (14:41)
== END 2022-07-28 14:51 | disposition home health service (06) | DRG 699 ==
LOC: ED 21:16 → PCU 21:25
PROVIDERS: Student in an Organized Health Care Education/Training Program; Admitting Provider Hospitalist; Emergency Provider Emergency Medicine; PCP Internal Medicine; Visit Provider Internal Medicine
DX: T83.510A Infection and inflammatory reaction due to cystostomy catheter, initial encounter (principal); N39.0 Urinary tract infection, site not specified; G82.20 Paraplegia, unspecified; N18.4 Chronic kidney disease, stage 4 (severe); R47.01 Aphasia; G35 Multiple sclerosis; E78.5 Hyperlipidemia, unspecified; I12.9 Hypertensive chronic kidney disease with stage 1 through stage 4 chronic kidney disease, or unspecified chronic kidney disease; E86.0 Dehydration; Y84.8 Other medical procedures as the cause of abnormal reaction of the patient, or of later complication, without mention of misadventure at the time of the procedure; B96.1 Klebsiella pneumoniae [K. pneumoniae] as the cause of diseases classified elsewhere; Z23 Encounter for immunization; Z79.899 Other long term (current) drug therapy; N31.9 Neuromuscular dysfunction of bladder, unspecified
CPT/HCPCS: 36415; 36591; 70360; 71045; 80048; 80053; 80202; 81001; 83605; 85025; 85610; 85730; 87040; 87077; 87086; 87088; 87186; 92507; 92523; 92610; 93005; 94667; 94668; 96361; 96374; 97110; 97162; 97166; 97530; 97535; 97802; 97803; 99251; 99285; G0008; J7030; J7050; J7120; 90686; A4216; G0463; J2405

== ENCOUNTER 2022-08-03 11:49 | Inpatient (IN) | payer MEDICARE, SELFPAY ==
[2022-08-03] VITALS (11 sets, daily range): BP systolic 141–169; BP diastolic 77–91; PULSE 53–82; RESP 10–20; TEMP 36–36.4; O2SAT 92–97; BMI 18.8; BMI 18.2
--- NOTE | 2022-08-03 11:57 | EKG12_ITS ---
Test Reason : CVA Blood Pressure : / mmHG Vent. Rate : 062 BPM Atrial Rate : 062 BPM P-R Int : 144 ms QRS Dur : 096 ms QT Int : 462 ms P-R-T Axes : 061 052 053 degrees QTc Int : 468 ms Normal sinus rhythm Normal ECG Confirmed by VITOR RAMÍREZ, JAZMIN ([id number]), editor & co founder OZZIE MG ([id number]) on 08/05/2022 9:26:00 AM Referred By: MACY Confirmed By:JAZMIN ADLER MD
--- NOTE | 2022-08-03 11:57 | CT_ITS ---
STUDY: CTA HEAD AND NECK WITH CONTRAST REASON FOR EXAM: Female, 67 years old. Neuro deficit, acute, stroke suspected RADIATION DOSAGE (If Supplied By Facility): CTDIvol = ( 13.47 ) mGy, DLP = ( 532.56 ) mGycm TECHNIQUE: CT angiography was performed with a multi-detector CT scanner. Data acquisition was obtained from the skull base through the vertex following intravenous administration of IV 100mL Isovue-370. MIP images were reconstructed from the axial data set. Post-processing of the angiographic images was performed, with multiplanar reformation and 3D reconstruction. Individualized dose optimization techniques were used for this CT. COMPARISON: No relevant priors. FINDINGS: Normal bilateral petrous carotid arteries. Normal right cavernous carotid artery with a normal supraclinoid bifurcation. Normal left cavernous carotid artery with a normal supraclinoid bifurcation. Normal right A1 segments of the anterior cerebral artery. Normal left A1 segments of the anterior cerebral artery. Normal intact anterior communicating artery (ACOM). Normal bilateral A2 segments of the anterior cerebral arteries. Normal right M1 and M2 segments of the middle cerebral arteries, with a normal M1 bifurcation. Normal left M1 and M2 segments of the middle cerebral arteries, with a normal M1 bifurcation. Normal right posterior communicating artery (PCOM). Normal left posterior communicating artery (PCOM). Normal bilateral vertebral arteries. Normal basilar artery with a normal basilar bifurcation. The visualized bilateral superior cerebellar (SCA) arteries are normal. Normal bilateral P1, P2 and visualized P3 segments of the posterior cerebral arteries. There is no demonstrated aneurysm of the [place]. AORTIC ARCH: There is atherosclerotic calcific plaque formation of the aortic arch and great vessels arising from the aortic arch, without a hemodynamically significant stenosis. There is a normal origin of the brachiocephalic, left common carotid, and left subclavian arteries. RIGHT CAROTID ARTERIES: Normal right common carotid artery (CCA). Normal right common carotid bulb. There is mild atherosclerotic plaque formation of the origin of the right internal carotid artery with less than 50% cross sectional diameter stenosis. There is evidence of a 7.7 mm x 5.7 mm aneurysm arising from the right internal carotid artery in its distal cervical portion along its medial aspect. Normal origin of the right external carotid artery (ECA). LEFT CAROTID ARTERIES: Normal left common carotid artery (CCA). Normal left common carotid bulb. There is mild atherosclerotic plaque formation of the origin of the left internal carotid artery with less than 50% cross sectional diameter stenosis. Normal visualized cervical portion of the left internal carotid artery. Normal origin of the left external carotid artery (ECA). VERTEBRAL ARTERIES: Normal bilateral vertebral arteries. CT/STROKE CTA Head AND Neck W/Con IMPRESSION: Mild degree of atherosclerotic plaque formation of the carotid bifurcations bilaterally causing less than 50% narrowing. 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 N.B. : The above Results were Read Back by Luís Hines MD to Dhruv Monge and understanding confirmed on 08/03/2022 12:48:02 (ET). Electronically Signed: Luís Hines MD at 12:49 EDT ,
--- NOTE | 2022-08-03 12:00 | CT_ITS ---
STUDY: CT HEAD STROKE PROTOCOL W/O CONTRAST INJECTION REASON FOR EXAM: Female, 67 years old. Neuro deficit, acute, stroke suspected RADIATION DOSAGE (If Supplied By Facility): CTDIvol = ( 44.99 ) mGy, DLP = ( 880.47 ) mGycm TECHNIQUE: Transaxial CT imaging of the brain was performed without administration of intravenous contrast material. Individualized dose optimization techniques were used for this CT. COMPARISON: Comparison is made with prior study 11/24/2021. FINDINGS: Normal soft tissue structures. Normal calvarium. There is moderate cerebral atrophy with widening of the extra-axial spaces and ventricular dilatation. There are areas of decreased attenuation within the white matter tracts of the supratentorial brain, consistent with microvascular disease changes. Focal old lacunar infarct in the left caudate nucleus. Normal brainstem. There is mild cerebellar atrophy. There is no intracranial hemorrhage. There are no findings of an acute ischemic infarction. Atherosclerotic calcific plaques of the cavernous portions of the internal carotid arteries bilaterally. Normal visualized paranasal sinuses. ASPECT score: 9 CT/STROKE Brain/Head without Cont IMPRESSION: Chronic involutional changes of the brain. Old lacunar infarct in the left caudate nucleus. There has been no change. N.B. : The above Results were Read Back by Luís Hines MD to Dhruv Monge and understanding confirmed on 08/03/2022 12:29:43 (ET). Electronically Signed: Luís Hines MD at 12:30 EDT ,
--- NOTE | 2022-08-03 12:03 | NURSING ---
FACESHEET FAXED TO [facility]
--- NOTE | 2022-08-03 12:05 | ED.VIS.STROK ---
HPI History of Present Illness Chief Complaint: Neuro S/Sx Informant: patient, family and EMS Limited: other (mental status) Onset/Context/Timing Onset: Today Narrative Narrative: Patient last seen at her baseline last night at 2100, noticed by spouse this morning upon waking up that she is unable to speak. Patient is unable to provide history. Very limited evaluation. She was recently admitted for urinary tract infection. She has a history of multiple sclerosis. Hospital documentation suggest that she was discharged about 6 days ago after a recurrent UTI due to her suprapubic indwelling catheter, it was Klebsiella. She has a history of paraplegia related to her multiple sclerosis so the leg weakness does not appear to be new. [facility] Medical History Alcohol use Allergic rhinitis Back pain Bilateral hydronephrosis Blackout Chronic constipation CKD (chronic kidney disease) stage 4, GFR 15-29 ml/min Complicated urinary tract infection Constipation Declining functional status Dental bridge present Depression Difficulty swallowing Endometrial thickening on ultrasound History of echocardiogram History of edema History of wrist fracture Hyperlipidemia Hypertension Indwelling urethral catheter present Insomnia Iron deficiency anemia Loss of hearing Low iron Migraine headache Migraine headache MRSA colonization Multiple sclerosis Multiple sclerosis Muscle spasm Neurogenic bladder Non-smoker OAB (overactive bladder) Pelvic pain Port-A-Cath in place Right hemiparesis Urinary tract infection Uses wheelchair Vitamin D deficiency Wears glasses Home Medications bisacodyl 10 mg rectal suppository 10 mg RECTAL DAILY constipation 07/01/18 [History Last Taken 11/24/21] acetaminophen 500 mg tablet 1,000 mg PO Q6H PRN PRN Pain 02/15/19 [History Last Taken 03/25/19] lactulose 20 gram/30 mL oral solution 60 gm PO QHS constipation 03/25/19 [History Last Taken 11/23/21] baclofen 20 mg tablet 20 mg PO TID MUSCLE 05/23/19 [History Last Taken 11/24/21] magnesium oxide 400 mg (241.3 mg magnesium) tablet 400 mg PO QHS magnesium supplement 05/23/19 [History Last Taken 11/23/21] melatonin 5 mg capsule 10 mg PO QHS sleep 05/23/19 [History Last Taken 11/23/21] polysaccharide iron complex 150 mg iron capsule 150 mg PO DAILY iron replacement 05/23/19 [History Last Taken 11/24/21] glucosamine JIp-F0-Vydfjnvkr zoey 1,500 mg-400 unit-100 mg tablet 1 tab PO DAILY supplement 11/15/20 [History Last Taken Unknown] krill 1,000 mg-omega-3 170 mg-dha 50 mg-epa 80 cf-coqtjw-qxwpb capsule 1 ea PO BID supplement 11/15/20 [History Last Taken Unknown] mirtazapine 15 mg tablet 45 mg PO QHS 11/15/20 [History Last Taken 11/23/21] vitamin B complex-folic acid 0.4 mg tablet 1 tab PO DAILY vitamin 11/15/20 [History Last Taken 11/24/21] cholecalciferol (vitamin D3) 1,250 mcg (50,000 unit) capsule 50,000 unit PO QMONTH vitamin 08/15/21 [History Last Taken 2 Weeks Ago ~11/10/21] donepezil 10 mg tablet 10 mg PO QHS memory 08/15/21 [History Last Taken 11/23/21] methylphenidate HCl 10 mg tablet (Ritalin) 10 mg PO DAILY 08/15/21 [History Last Taken 11/24/21] tumeric 100 mg-tristian 150 mg-olive 50 mg-oreg 150 mg-caprylate capsule 2 cap PO BID supplement 08/15/21 [History Last Taken 11/23/21] cinacalcet 30 mg tablet 30 mg PO QODAY hyperparathyroidism 11/24/21 [History Last Taken 11/23/21] uicznbgf-cbbdyru-djno-lutein tablet 1 tab PO DAILY SUPPLEMENT 11/24/21 [History Last Taken 11/23/21] nystatin 100,000 unit/mL oral suspension 500,000 unit (5 mL) PO 4X/DAY 5 days #100 mL 11/27/21 [Rx Last Taken Unknown] fexofenadine 180 mg tablet 180 mg PO DAILY 07/22/22 [History Last Taken Unknown] memantine 5 mg-10 mg tablets in a dose pack 10 tab PO BID 07/22/22 [History Last Taken Unknown] ondansetron 4 mg disintegrating tablet 4 mg PO Q8H PRN nausea and vomiting #10 tabs 07/22/22 [Rx Last Taken Unknown] amitriptyline 10 mg tablet 10 mg PO QHS 07/23/22 [History Last Taken Unknown] ascorbic acid (vitamin C) 1,000 mg tablet,extended release (Vitamin C ER) 1,000 mg PO BREAKFAST 07/23/22 [History Last Taken Unknown] food supplemt, lactose-reduced 0.08 gram-1.5 kcal/mL oral liquid 120 ml PO 4X/DAY #0 mL 07/28/22 [Rx Last Taken Unknown] methenamine hippurate 1 gram tablet 1 g PO BID 30 days #60 tabs 07/28/22 [Rx Last Taken Unknown] Allergy/AdvReac Type Severity Reaction Status Date / Time ciprofloxacin [From Cipro] AdvReac hypotension Verified 07/23/22 17:59 dextrose 5 % in water AdvReac Other Verified 07/23/22 17:59 [From Zyvox] doxycycline AdvReac hypotension Verified 07/23/22 17:59 levofloxacin [From Levaquin] AdvReac hypotension Verified 07/23/22 17:59 linezolid [From Zyvox] AdvReac Other Verified 07/23/22 17:59 morphine AdvReac hallucinati Verified 07/23/22 17:59 ons piperacillin [From Zosyn] AdvReac hypotension Verified 07/23/22 17:59 sulfamethoxazole AdvReac hypotension Verified 07/23/22 17:59 [From Bactrim] tazobactam [From Zosyn] AdvReac hypotension Verified 07/23/22 17:59 trimethoprim [From Bactrim] AdvReac hypotension Verified 07/23/22 17:59 vancomycin AdvReac developed Verified 07/23/22 17:59 toxic levels Family History Mother Osteoporosis Grandmother Breast cancer Surgical History H/O cervical polypectomy H/O dilation and curettage History of cystoscopy History of esophagogastroduodenoscopy (EGD) History of tonsillectomy and adenoidectomy History of tympanoplasty Hx of hand surgery Hx of shoulder surgery S/P laparoscopic procedure Social History household members: spouse housing: house Smoking Status: Never smoker alcohol intake: never substance use type: does not use what type of physical activity do you participate in: none seatbelt use: always do you feel safe at home: Yes 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 Review of Systems ROS Unobtainable: due to mental status EXAM Physical Exam Const Vital Signs: 08/03/22 11:52 08/03/22 12:08 08/03/22 12:08 Temperature 96.8 F L Temperature Source Temporal Pulse Rate Respiratory Rate Respiratory Effort Normal Non-Labored Respiratory Pattern Normal Blood Pressure Blood Pressure Mean Pulse Ox Oxygen Delivery Method Room Air Room Air 08/03/22 12:19 08/03/22 13:22 Temperature Temperature Source Pulse Rate 62 59 L Respiratory Rate 11 L 10 L Respiratory Effort Respiratory Pattern Blood Pressure 141/77 H 151/80 H Blood Pressure Mean 98 103 Pulse Ox 92 97 Oxygen Delivery Method Room Air Room Air Positive well nourished and well developed General Appearance ED: well developed and NAD HEENT Reports moist mucous membranes normocephalic and atraumatic Eyes PERRL and EOMs intact bilaterally Neck full ROM and supple Resp normal respiratory effort and clear to auscultation bilaterally Cardio regular rate, regular rhythm and no murmurs GI non-tender and non-distended Auscultation: normoactive bowel sounds Palpation: soft Back/Spine Back/Spine Narrative: Normal inspection General Back: other FROM Extremity normal to inspection General Extremety ED: Negative for edema, pulses abnormal or tenderness General Extremity: Negative for edema or pulses abnormal Neuro Neuro Narrative: Mute, significant expressive aphasia. Weak all over, barely able to move left side, as well as the right. See NIHSS below. Sensorium / Orientation: awake and alert Skin no rashes or lesions noted and no wounds NIHSS NIHSS Initial: 1a Level of Consciousness: 0 1b LOC Questions (Score 2 if aphasic/stupor): 2 1c LOC Commands (Only score 1st attempt): 0 2 Best Gaze (If aphasic, use reflexive mvmts.): 0 3 Visual: 0 4 Facial Palsy: 0 5 Motor Arm Right (UN = amputation/fusion): 4 5 Motor Arm Left: 3 6 Motor Leg Right: 3 6 Motor Leg Left: 3 7 Limb ataxia (Only + if out of proportion): 0 8 Sensory (Aphasia/stupor=0 or 1, coma=2): 1 9 Best Language: 3 10 Dysarthria (mute, coma=2, intubated=UN): 2 11 Extinction and Inattention (only scored if +): 0 Total Score: 21 MDM MDM MDM Narrative Medical decision making narrative: Patient returned from CT, and the was here, I reevaluated her and discussed with him at length. 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 He states that since she has been home for the last 5 or 6 days, she has not been at baseline. Typically at baseline, she is wheelchair-bound but can stand and pivot for transfer, dress herself, feed herself, take her own medications. In the last 5 or 6 days, she has had trouble with all of those things but not to the point where she has been this morning. He noticed a significant downturn last night, and worse this morning, contrary to the history that we had from EMS prior to receiving these details, hence calling a stroke alert. He states she is a functional paraplegic but not paralyzed, and she has chronic spastic weakness in her right upper extremity, normally her left 1 works very well and fully, and is the only extremity that does so. She has been in the current condition before when she has had lots of different illnesses that have led to short-term debility worse than usual, including when she had a urinary tract infection recently. He changes the suprapubic catheter every 2 weeks, the last time he changed it was 5 days ago, the day after she was discharged, and he states he used sterile technique, not clean technique. There chronically is sediment in it, consistent with how it looks now. They put her on methenamine at discharge to try to help prophylax against recurrent UTIs, infectious disease was involved during her prior admission. However she started getting nauseated and having some abdominal discomfort after she got home so they discontinued that. Her plain CT is negative for bleed, I discussed all this with the stroke neurologist Dr. Lazo, who agrees that the patient is not a tPA candidate, and they would be there for further support if the patient has an LVO. She does not, the CT angiography shows nothing acute. Her labs show mild dehydration and possible UTI. Understand she is colonized chronically and this may not be true infection, it is sent for culture, and she will be empirically covered with antibiotics for Klebsiella which is her last urinary infection, as well as MRSA which she has a history of. While she was being observed here in emergency department waiting on lab results, showed me a video of the patient having rhythmic mouth movements on the right side specifically, and turning her head repeatedly to the right. It may have represented simple partial seizure, it lasted for 1 or 2 minutes. He showed me another video where this occurred a couple years ago in a similar fashion but was never formally diagnosed. Lab Data Attestation: I reviewed the patient's lab results. Labs: Laboratory Results - last 24 hr 08/03/22 08/03/22 08/03/22 12:17 12:17 12:17 WBC 6.6 RBC 3.73 L Hgb 11.8 L Hct 37.0 MCV 99.2 H MCH 31.6 MCHC 31.9 L RDW Std Deviation 50.7 H RDW Coeff of Niurka 14.0 Plt Count 175 MPV 9.9 Immature Gran % (Auto) 0.300 Neut % (Auto) 58.7 Lymph % (Auto) 27.3 Towns % (Auto) 7.3 Eos % (Auto) 5.6 H Baso % (Auto) 0.8 Absolute Neuts (auto) 3.9 Absolute Lymphs (auto) 1.80 Nucleated RBC % 0 PT 13.9 INR 1.1 APTT 38.4 H Sodium 143 Potassium 3.3 L Chloride 106 Carbon Dioxide 33.0 H Anion Gap 4 L BUN 22 H Creatinine 1.47 H Estim Creat Clear Calc 34.82 Est GFR (MDRD) Af Amer 46 L Est GFR (MDRD) Non-Af 38 L BUN/Creatinine Ratio 15.0 Glucose 88 Calcium 9.4 Troponin I High Sens 10 Urine Color Urine Clarity Urine pH Ur Specific [place] Urine Protein Urine Glucose (UA) Urine Ketones Urine Occult Blood Urine Nitrite Urine Bilirubin Urine Urobilinogen Ur Leukocyte Esterase Urine RBC Urine WBC Ur Squamous Epith Cells Urine Bacteria Urine Mucus 08/03/22 12:20 WBC RBC Hgb Hct MCV MCH MCHC RDW Std Deviation RDW Coeff of Niurka Plt Count MPV Immature Gran % (Auto) Neut % (Auto) Lymph % (Auto) Towns % (Auto) Eos % (Auto) Baso % (Auto) Absolute Neuts (auto) Absolute Lymphs (auto) Nucleated RBC % PT INR APTT Sodium Potassium Chloride Carbon Dioxide Anion Gap BUN Creatinine Estim Creat Clear Calc Est GFR (MDRD) Af Amer Est GFR (MDRD) Non-Af BUN/Creatinine Ratio Glucose Calcium Troponin I High Sens Urine Color Yellow Urine Clarity Clear Urine pH 7.0 Ur Specific [place] 1.010 Urine Protein 100 H Urine Glucose (UA) Normal Urine Ketones Negative Urine Occult Blood 250 H Urine Nitrite Negative Urine Bilirubin Negative Urine Urobilinogen Normal Ur Leukocyte Esterase 500 H Urine RBC 10-25 SEEN Urine WBC >100 SEEN Ur Squamous Epith Cells 0-5 SEEN Urine Bacteria 3+ Urine Mucus 0 SEEN Radiography Diagnostic Testing: Clinical Impression(s) from Imaging Studies Head/Neck CTA 08/03/22 11:57 IMPRESSION: Mild degree of atherosclerotic plaque formation of the carotid bifurcations bilaterally causing less than 50% narrowing. 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 N.B. : The above Results were Read Back by Luís Hines MD to Dhruv Monge and understanding confirmed on 08/03/2022 12:48:02 (ET). Electronically Signed: Luís Hines MD at 12:49 EDT , ADDENDUM: 08/03/22 1256 IMPRESSION: Mild degree of atherosclerotic plaque formation of the carotid bifurcations bilaterally causing less than 50% narrowing. 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 N.B. : The above Results were Read Back by Luís Hines MD to Dhurv Monge and understanding confirmed on 08/03/2022 12:48:02 (ET). Electronically Signed: Luís Hines MD at 12:49 EDT , ADDENDUM: 08/03/22 1335 IMPRESSION: undefined Brain CT 08/03/22 12:00 IMPRESSION: Chronic involutional changes of the brain. Old lacunar infarct in the left caudate nucleus. There has been no change. N.B. : The above Results were Read Back by Luís Hines MD to Dhruv Monge and understanding confirmed on 08/03/2022 12:29:43 (ET). Electronically Signed: Luís Hines MD at 12:30 EDT , ADDENDUM: 08/03/22 1237 IMPRESSION: Chronic involutional changes of the brain. Old lacunar infarct in the left caudate nucleus. There has been no change. N.B. : The above Results were Read Back by Luís Hines MD to Dhruv Monge and understanding confirmed on 08/03/2022 12:29:43 (ET). Electronically Signed: Luís Hines MD at 12:30 EDT , Chest X-Ray 08/03/22 12:36 IMPRESSION: Elevation of the right hemidiaphragm. Stable linear scarring at the left lung base. Electronically Signed: Luís Hines MD at 12:55 EDT , Stroke Documentation Questions Stroke Team Activated: Yes IV Alteplase (t-PA) Administered: No (Wake-up possible stroke/timing) Critical Care Time Critical Care Time: Yes Critical care time (excluding procedures): 30-74 minutes (45 min), Including time spent:, Discussing w/Patient &/or Family/Diesel Roller Operator, Discussing w/Consultants, Arranging Admission or Transfer and Performing Direct Patient Care at Bedside Discharge Plan Dx/Rx/DC Orders Clinical Impression: Acute encephalopathy, Debility, Acute UTI Disposition Disposition: [facility]
[2022-08-03 12:29] LABS: Mucous, Urine 0 SEEN /hpf (<or=2+)
[2022-08-03 12:32] LABS: Color, Urine Yellow (Yellow); Glucose, Dipstick Normal (Normal); Ketone-Dipstick Negative (Negative); Leukocyte Esterase-Dipstick 500 /ul (Negative); Nitrite-Dipstick Negative (Negative); Occult Blood-Urine 250 /ul (Negative); Protein-Dipstick 100 mg/dl (Negative); Urine Bilirubin Dipstick Negative (Negative); Urine Clarity Clear (Clear); Urine Urobilinogen Normal (Normal)
[2022-08-03 12:33] LABS: Absolute Neutrophil Count 3.9 X10^3/uL (2.0-7.7); Basophil# 0.05 X10^3/uL; Basophil% 0.8 % (0-1); Eosinophil# 0.37 X10^3/uL; Eosinophils% 5.6 % (0-5); Hemoglobin 11.8 g/dL (12.0-15.0); Lymphocyte % 27.3 % (19-41); Mean Corp Hgb Conc 31.9 g/dL (32-36); Mean Corpuscular Hgb 31.6 pg (27.0-32.0); Mean Corpuscular Volume 99.2 fL (81-99); Mean Platelet Vol. 9.9 fl (6.2-12.0); Monocyte# 0.48 X10^3/uL; Monocyte% 7.3 % (0-10); NRBC Flagged by Analyzer 0 % (0-5); Neutrophil # 3.88 X10^3/uL (2.7-7.7); Neutrophil % 58.7 % (47-70); Platelet Count 175 K/mm3 (150-450); RBC Distribution Width SD 50.7 fl (35.1-43.9); Red Blood Count 3.73 M/mm3 (4.2-5.4); White Blood Count 6.6 K/mm3 (4.4-11.0)
[2022-08-03 12:35] LABS: Bacteria 3+ /hpf (None Seen); Red Blood Cells-Urine 10-25 SEEN /hpf (0-5); Squamous Epithelial Cells - UA 0-5 SEEN /hpf (5-10); White Blood Cells >100 SEEN /hpf (0-5)
--- NOTE | 2022-08-03 12:36 | RAD_ITS ---
STUDY: X-RAY CHEST REASON FOR EXAM: Female, 67 years old. Neuro deficit, acute, stroke suspected TECHNIQUE: Single AP portable view of the chest. COMPARISON: Comparison is made with prior study dated 07/22/2022. FINDINGS: EKG electrodes are seen. A left-sided portacatheter seen with the tip at the junction of the superior vena cava and right atrium. There is evidence of elevation of the right hemidiaphragm. Stable mild increased linear markings at the left lung base suggests a possible scarring. There is no demonstrated pleural abnormality. Normal size heart. Normal mediastinum and ramy. Normal visualized pulmonary arteries. There is atherosclerotic calcification of the aortic arch with tortuosity. There are diffuse degenerative changes of the visualized thoracic spine. Dextroscoliosis. There is degenerative osteoarthritis of the bilateral shoulders. There is no demonstrated abnormality of the visualized soft tissue structures of the upper abdomen. RAD/Chest 1 View IMPRESSION: Elevation of the right hemidiaphragm. Stable linear scarring at the left lung base. Electronically Signed: Luís Hines MD at 12:55 EDT ,
[2022-08-03 12:37] LABS: International Normalized Ratio 1.1; Partial Thromboplast Time 38.4 Seconds (24.1-36.2); Prothrombin Time (Protime)PT. 13.9 SECONDS (11.7-14.9)
[2022-08-03 12:47] LABS: Anion Gap 4 (5-15); BUN 22 mg/dL (7-18); Calcium,Total 9.4 mg/dL (8.5-10.1); Chloride 106 mmol/L (98-107); Creatinine, Serum 1.47 mg/dL (0.55-1.02); EST Glomerular Filtration Rate 38 mL/min (>60); Est Glom Filt Rate - Afr Amer 46 mL/min (>60); Estimated Creatinine Clearance 34.82 ml/min; Glucose 88 mg/dL (74-106); Potassium 3.3 mmol/L (3.5-5.1); Sodium Level 143 mmol/L (136-145); Troponin-I HS 10 pg/mL (3.0-54.0)
[2022-08-03] MEDS: 0.9% Normal Saline 1,000 ML 999 ML IV (12:57)
--- NOTE | 2022-08-03 13:04 | CHAPLAIN ---
Type of Pastoral Visit ___ Initial Visit ___ Follow-up Visit ___ On-call Visit ___ General Patient Visit ___ Spiritual Assessment ___ Family Conference ___ Bereavement _x__ Rapid Response ___ Code Blue ___ Other (describe below) Pastoral Care Referral From ___ Patient ___ Family ___ Nurse ___ Physician ___ Assembler [place] ___ Marketing Consultant _x__ Other (describe below) Sacrament/Intervention _x__ Active listening ___ Anointing ___ Baptist ___ Bereavement ___ Communion ___ Justine exploration ___ ___ Life review ___ Prayer ___ Reconciliation ___ Sacrament of Sick _x__ Supportive presence ___ Wedding ___ Other (describe below) Pastoral Comments came to rapid response for this patient who has been seen numerous times when admitted in this hospital; offered support and presence to spouse as pt was in CT; lots of listening and presence given; once further evaluation was being done for patient, this compensation agent left the room; offered that spouse could request support from this compensation agent as needed
--- NOTE | 2022-08-03 13:07 | CM.ED ---
DICK Note DICK and DICK Mcdermott met with patient's , Siva. DICK provided emotional support. SW remains available if needs arise. Emotional Support provided. Tisha MERLOS
--- NOTE | 2022-08-03 14:00 | HP.PCM.HOS_ITS ---
HPI - General General Date of Admission: 08/03/22 Date of Service: 08/03/22 Chief Complaint: Increased confusion. HPI Narrative The patient is a 67 y/o F w/ PMHx: Hx CVA, CKD stage III unclear subtype, HTN, HLD, Chronic anemia/Fe deficiency anemia, Anxiety and Depression, Multiple Sclerosis with chronic spurapubic catheter, cognitive impairment and functional paraplegia, recent discharge 07/28/22 following treatment Acute Klebsiella UTI in the setting of MS with cognitive impairment and functional paraplegia who now re-presents to the [facility] ED on 08/03/22 with history of last noted baseline at 2100 the evening prior however upon awakening spouse noticed that she was unable to speak with baseline stable debilities given significant underlying cognitive impairment as well as functional paraplegia. Patient with [facility] stroke alert team is following commands and answers yes and no appropriately but remains mostly nonverbal otherwise. Spouse does report that at least for the last 5 to 6 days since she is been back home she is not been at her baseline and notes that often she is wheelchair-bound but can stand and pivot for transfer, dress herself, feed herself and take her medications however over these last several days she has been unable to perform these activities with a significant decline last night and worse this AM. He does report that her suprapubic catheter is changed every 2 weeks and the last time was changed was 5 days prior to current presentation the day after she was discharged with sterile technique with no issues. She had also been placed on that time on mesalamine secondary to recurrent UTIs with infectious disease involvement. After this medication was initiated she did have some abdominal discomfort and nausea therefore was discontinued. In the ED NIH stroke scaling difficult with initial scoring per ED physician noted to be 21. Work-up in the ED included T68.8, heart rate 62, BP 141/77, respiratory rate 11, 92 to 97% on room air, CBC with WC 6.6, hemoglobin 11.8, MCV 99.2, platelet 175 without marked shift, coags unremarkable aside PTT 38.4, BMP with potassium 3.3, carbon oxide 33, BUN/creatinine 22/1.47, troponin 10, urinalysis with specific remedy 1.010, protein 100, occult blood 250, negative nitrite, leukocyte esterase 500, urine RBCs 10-25, urine WC is greater than 100 with 3+ urine bacteria and noted to be a decent sample, chest x-ray with elevation the right hemidiaphragm with stable linear scarring in the left lung base, CT of the brain with chronic involutional changes of the brain with evidence of an old lacunar infarct in the left caudate nucleus with no change from prior imaging, CTA head and neck with mild degree of atherosclerotic plaque formation of the carotid bifurcations bilaterally causing less than 50% narrowing with a 7.7 mm x 5.7 mm aneurysm arising from the right internal carotid artery into the distal cervical portion along its medial aspect not no quintin on prior MRI imaging. [facility] stroke alert felt this was more likely encephalopathy with concern for possible recurrent urinary tract infection with recommended admission and encephalopathy evaluation as well as treatment of urinary tract infection. Of note, while in the ED she had rhythm shaking of her head specifically up and towards the right and smacking of her lips lasting 1-2 minutes which was videotaped per the spouse and reviewed. Patient also reportedly had similar presentation however this was following anesthetics remotely and was never followed up. [facility] telestroke was recontacted giving image findings with aneurysm with recommendation for outpatient follow-up with vascular surgery versus neurosurgery with no acute interventions necessary at this time. In the ED patient administered IV rocephin and vanc given prior Cx histories and Bld Cx x 2 obtained. [facility] Medical History Alcohol use Allergic rhinitis Back pain Bilateral hydronephrosis Blackout Chronic constipation CKD (chronic kidney disease) stage 4, GFR 15-29 ml/min Complicated urinary tract infection Constipation Declining functional status Dental bridge present Depression Difficulty swallowing Endometrial thickening on ultrasound History of echocardiogram History of edema History of wrist fracture Hyperlipidemia Hypertension Indwelling urethral catheter present Insomnia Iron deficiency anemia Loss of hearing Low iron Migraine headache Migraine headache MRSA colonization Multiple sclerosis Multiple sclerosis Muscle spasm Neurogenic bladder Non-smoker OAB (overactive bladder) Pelvic pain Port-A-Cath in place Right hemiparesis Urinary tract infection Uses wheelchair Vitamin D deficiency Wears glasses Home Medications bisacodyl 10 mg rectal suppository 10 mg RECTAL DAILY constipation 07/01/18 [History Last Taken 11/24/21] acetaminophen 500 mg tablet 1,000 mg PO Q6H PRN PRN Pain 02/15/19 [History Last Taken 03/25/19] lactulose 20 gram/30 mL oral solution 60 gm PO QHS constipation 03/25/19 [History Last Taken 11/23/21] baclofen 20 mg tablet 20 mg PO TID MUSCLE 05/23/19 [History Last Taken 11/24/21] magnesium oxide 400 mg (241.3 mg magnesium) tablet 400 mg PO QHS magnesium supplement 05/23/19 [History Last Taken 11/23/21] melatonin 5 mg capsule 10 mg PO QHS sleep 05/23/19 [History Last Taken 11/23/21] polysaccharide iron complex 150 mg iron capsule 150 mg PO DAILY iron replacement 05/23/19 [History Last Taken 11/24/21] glucosamine NLl-H2-Mmkxkhjej zoey 1,500 mg-400 unit-100 mg tablet 1 tab PO DAILY supplement 11/15/20 [History Last Taken Unknown] krill 1,000 mg-omega-3 170 mg-dha 50 mg-epa 80 gu-enhvpd-xudqr capsule 1 ea PO BID supplement 11/15/20 [History Last Taken Unknown] mirtazapine 15 mg tablet 45 mg PO QHS 11/15/20 [History Last Taken 11/23/21] vitamin B complex-folic acid 0.4 mg tablet 1 tab PO DAILY vitamin 11/15/20 [History Last Taken 11/24/21] cholecalciferol (vitamin D3) 1,250 mcg (50,000 unit) capsule 50,000 unit PO QMONTH vitamin 08/15/21 [History Last Taken 2 Weeks Ago ~11/10/21] donepezil 10 mg tablet 10 mg PO QHS memory 08/15/21 [History Last Taken 11/23/21] methylphenidate HCl 10 mg tablet (Ritalin) 10 mg PO DAILY 08/15/21 [History Last Taken 11/24/21] tumeric 100 mg-tristian 150 mg-olive 50 mg-oreg 150 mg-caprylate capsule 2 cap PO BID supplement 08/15/21 [History Last Taken 11/23/21] cinacalcet 30 mg tablet 30 mg PO QODAY hyperparathyroidism 11/24/21 [History Last Taken 11/23/21] lxzirvaf-rvuarmi-jcsc-lutein tablet 1 tab PO DAILY SUPPLEMENT 11/24/21 [History Last Taken 11/23/21] nystatin 100,000 unit/mL oral suspension 500,000 unit (5 mL) PO 4X/DAY 5 days #100 mL 11/27/21 [Rx Last Taken Unknown] fexofenadine 180 mg tablet 180 mg PO DAILY 07/22/22 [History Last Taken Unknown] memantine 5 mg-10 mg tablets in a dose pack 10 tab PO BID 07/22/22 [History Last Taken Unknown] ondansetron 4 mg disintegrating tablet 4 mg PO Q8H PRN nausea and vomiting #10 tabs 07/22/22 [Rx Last Taken Unknown] amitriptyline 10 mg tablet 10 mg PO QHS 07/23/22 [History Last Taken Unknown] ascorbic acid (vitamin C) 1,000 mg tablet,extended release (Vitamin C ER) 1,000 mg PO BREAKFAST 07/23/22 [History Last Taken Unknown] food supplemt, lactose-reduced 0.08 gram-1.5 kcal/mL oral liquid 120 ml PO 4X/DAY #0 mL 07/28/22 [Rx Last Taken Unknown] methenamine hippurate 1 gram tablet 1 g PO BID 30 days #60 tabs 07/28/22 [Rx Last Taken Unknown] Allergy/AdvReac Type Severity Reaction Status Date / Time ciprofloxacin [From Cipro] AdvReac hypotension Verified 07/23/22 17:59 dextrose 5 % in water AdvReac Other Verified 07/23/22 17:59 [From Zyvox] doxycycline AdvReac hypotension Verified 07/23/22 17:59 levofloxacin [From Levaquin] AdvReac hypotension Verified 07/23/22 17:59 linezolid [From Zyvox] AdvReac Other Verified 07/23/22 17:59 morphine AdvReac hallucinati Verified 07/23/22 17:59 ons piperacillin [From Zosyn] AdvReac hypotension Verified 07/23/22 17:59 sulfamethoxazole AdvReac hypotension Verified 07/23/22 17:59 [From Bactrim] tazobactam [From Zosyn] AdvReac hypotension Verified 07/23/22 17:59 trimethoprim [From Bactrim] AdvReac hypotension Verified 07/23/22 17:59 vancomycin AdvReac developed Verified 07/23/22 17:59 toxic levels Family History Mother Osteoporosis Grandmother Breast cancer Surgical History H/O cervical polypectomy H/O dilation and curettage History of cystoscopy History of esophagogastroduodenoscopy (EGD) History of tonsillectomy and adenoidectomy History of tympanoplasty Hx of hand surgery Hx of shoulder surgery S/P laparoscopic procedure Social History household members: spouse housing: house Smoking Status: Never smoker alcohol intake: never substance use type: does not use what type of physical activity do you participate in: none seatbelt use: always do you feel safe at home: Yes 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 HEENT: Eyes: No visual loss, blurred vision, double vision or yellow sclerae. Ears, Nose, Throat: No hearing loss, sneezing, congestion, runny nose or sore throat. SKIN: No rash or itching, lesions, wounds. CARDIOVASCULAR: No chest pain, chest pressure or chest discomfort, palpitations, edema, orthopnea, syncopal events. RESPIRATORY: No shortness of breath, cough or sputum, wheezing, hemoptysis. GASTROINTESTINAL: + anorexia, chronic constipation. No nausea, vomiting or diarrhea, abdominal pain, melena, BRBPR. GENITOURINARY: No dysuria, frequency, urgency or retention, urine normal appearing. NEUROLOGICAL: + Increased confusion, decreased interactiveness, chronic functional paraplegia with worsened global weakness, concern for seizure activity. No headache, dizziness, syncope, change in bowel or bladder control. MUSCULOSKELETAL: + muscle, back pain, joint pain or stiffness. HEMATOLOGIC:+ anemia, bleeding or bruising. LYMPHATICS: No enlarged nodes. No history of splenectomy. PSYCHIATRIC: + history of depression or anxiety. ENDOCRINOLOGIC: No reports of sweating, cold or heat intolerance. No polyuria or polydipsia. ALLERGIES: No history of asthma, hives, eczema or rhinitis. Vital Signs Vital Signs Vital Signs: 08/03/22 11:52 08/03/22 12:08 08/03/22 12:08 Temperature 96.8 F L Temperature Source Temporal Pulse Rate Respiratory Rate Respiratory Effort Normal Non-Labored Respiratory Pattern Normal Blood Pressure Blood Pressure Mean Pulse Ox Oxygen Delivery Method Room Air Room Air 08/03/22 12:19 08/03/22 13:22 Temperature Temperature Source Pulse Rate 62 59 L Respiratory Rate 11 L 10 L Respiratory Effort Respiratory Pattern Blood Pressure 141/77 H 151/80 H Blood Pressure Mean 98 103 Pulse Ox 92 97 Oxygen Delivery Method Room Air Room Air Weight Weight: 130 lb 15.273 oz Body Mass Index (BMI) 18.8 Physical Exam Narrative Physical Examination: General: Awake, does not appear significantly alert but has her eyes open, not answering any questions, not saying yes or no which patient does previously, significantly decreased alert status from prior baseline, no distress evident. Skin: Normal color, normal turgor, no icterus, no cyanosis except for very staged ecchymoses. HEENT: AT/NC, EOM unable to be assessed well given difficulty following commands, PERRLA, dry MM, no carotid bruits or JVD noted. Lungs: Mildly diminished, greater bases, poor effort, no rales, ronchi or wheezing. Heart: Currently regular rate and rhythm; no gallop, rub audible. Abdomen: Soft, no obvious grimacing with palpation, no obvious distention, mildly hyperactive bowel sounds, no obvious HSM. Extremities: No cyanosis, clubbing, or edema, lower extremity contractures noted. Neurological: Awake, does not appear significantly alert but has her eyes open, not answering any questions, not saying yes or no which patient does previously, cognitive function not baseline intact; pupils equally reactive to light and accommodation, cranial nerves difficult to assess given current presentation but no obvious deficits, not moving any extremities currently, strength difficult to assess, severely globally decreased Psychiatric: Affect appears flat, no acute evidence of depressive or anxiety feelings. Results Lab / Micro Data Result Diagrams: 08/03/22 12:17 08/03/22 12:17 Labs: Laboratory Results - last 24 hr 08/03/22 12:17: WBC 6.6, RBC 3.73 L, Hgb 11.8 L, Hct 37.0, MCV 99.2 H, MCH 31.6, MCHC 31.9 L, RDW Std Deviation 50.7 H, RDW Coeff of Niurka 14.0, Plt Count 175, MPV 9.9, Immature Gran % (Auto) 0.300, Neut % (Auto) 58.7, Lymph % (Auto) 27.3, Miller % (Auto) 7.3, Eos % (Auto) 5.6 H, Baso % (Auto) 0.8, Absolute Neuts (auto) 3.9, Absolute Lymphs (auto) 1.80, Nucleated RBC % 0 08/03/22 12:17: PT 13.9, INR 1.1, APTT 38.4 H 08/03/22 12:17: Sodium 143, Potassium 3.3 L, Chloride 106, Carbon Dioxide 33.0 H , Anion Gap 4 L, BUN 22 H, Creatinine 1.47 H, Estim Creat Clear Calc 34.82, Est GFR (MDRD) Af Amer 46 L, Est GFR (MDRD) Non-Af 38 L, BUN/Creatinine Ratio 15.0, Glucose 88, Calcium 9.4, Troponin I High Sens 10 08/03/22 12:20: Urine Color Yellow, Urine Clarity Clear, Urine pH 7.0, Ur Specific Superior 1.010, Urine Protein 100 H, Urine Glucose (UA) Normal, Urine Ketones Negative, Urine Occult Blood 250 H, Urine Nitrite Negative, Urine Bilirubin Negative, Urine Urobilinogen Normal, Ur Leukocyte Esterase 500 H, Urine RBC 10-25 SEEN, Urine WBC >100 SEEN, Ur Squamous Epith Cells 0-5 SEEN, Urine Bacteria 3+, Urine Mucus 0 SEEN Radiology Impression Head/Neck CTA 08/03/22 11:57 IMPRESSION: Mild degree of atherosclerotic plaque formation of the carotid bifurcations bilaterally causing less than 50% narrowing. 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 N.B. : The above Results were Read Back by Luís Hines MD to Dhruv Monge and understanding confirmed on 08/03/2022 12:48:02 (ET). Electronically Signed: Luís Hines MD at 12:49 EDT , ADDENDUM: 08/03/22 1256 IMPRESSION: Mild degree of atherosclerotic plaque formation of the carotid bifurcations bilaterally causing less than 50% narrowing. 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 N.B. : The above Results were Read Back by Luís Hines MD to Dhruv Monge and understanding confirmed on 08/03/2022 12:48:02 (ET). Electronically Signed: Luís Hines MD at 12:49 EDT , ADDENDUM: 08/03/22 1335 IMPRESSION: undefined Brain CT 08/03/22 12:00 IMPRESSION: Chronic involutional changes of the brain. Old lacunar infarct in the left caudate nucleus. There has been no change. N.B. : The above Results were Read Back by Luís Hines MD to Dhruv Monge and understanding confirmed on 08/03/2022 12:29:43 (ET). Electronically Signed: Luís Hines MD at 12:30 EDT , ADDENDUM: 08/03/22 1237 IMPRESSION: Chronic involutional changes of the brain. Old lacunar infarct in the left caudate nucleus. There has been no change. N.B. : The above Results were Read Back by Luís Hines MD to Dhruv Monge and understanding confirmed on 08/03/2022 12:29:43 (ET). Electronically Signed: Luís Hines MD at 12:30 EDT , Chest X-Ray 08/03/22 12:36 IMPRESSION: Elevation of the right hemidiaphragm. Stable linear scarring at the left lung base. Electronically Signed: Luís Hines MD at 12:55 EDT , Assessment & Plan Assessment/Plan (1) Acute encephalopathy: PLAN: Plan The patient is a 67 y/o F w/ PMHx: Hx CVA, CKD stage III unclear subtype, HTN, HLD, Chronic anemia/Fe deficiency anemia, Anxiety and Depression, Multiple Sclerosis with chronic spurapubic catheter, cognitive impairment and functional paraplegia, recent discharge 07/28/22 following treatment Acute Klebsiella UTI in the setting of MS with cognitive impairment and functional paraplegia who now re-presents to the [facility] ED on 08/03/22 with history of last noted baseline at 2100 the evening prior however upon awakening spouse noticed that she was unable to speak with baseline stable debilities given significant underlying cognitive impairment as well as functional paraplegia. #1. Acute Encephalopathy (Infectious), Possibly Recurrent Acute Complicated Urinary Tract Infection with chronic indwelling Maldonaod catheter, recent treated for Acute Klebsiella UTI; however, final UCx w/ L<1000 CFU (treated with doxy, bactrim outpatient->inpatient rocephin to completion), also noted prior MRSA UTI and also Potentially secondary to #2: Will admit to PCU to be cautious, UA upon ED evaluation remarkable, pending UCx, continue IVFs, monitor I/Os, continue IV Rocephin and will also add IV Vanc given MRSA history w/ transition as able pending sensitivities and speciation. PT/OT/CM consultations for discharge planning. Will request ID re-involvement. Suprapubic catheter changed recent per spouse but given recurrent infectious concerns will request change. Bld cx x 2 obtained in the ED. Procalcitonin pending. #2. Questionable New-onset seizure: Concern for possible seizure while in the ED, witnessed with lethargy following. CT head without acute intracranial pathology. Will maintain on telemetry to be cautious, maintain on seizure precautions, obtain EEG, obtain brain MRI with and without given MS concurrent history to be cautious, obtain TSH. PRN ativan IV for seizure activity. NPO until cleared per RN swallow. We will hold on immediate usage of antiepileptic drugs routinely/load pending further assessments as noted. Once imaging and EEG obtained would consider Neurology SOC consultation. #3. Incidental carotid bifurcations bilaterally, incidental 7.7 mm x 5.7 mm aneurysm arising R internal carotid artery->distal cervical portion along medial aspect: Neurology recontacted per ED and discussed these findings with recommendation at discharge for follow-up with vascular versus neurosurgery with no acute interventions necessary. #4. Hypokalemia: Admission K+ 3.3, magnesium level requested, supplementation given, repeat level in AM. #5. Multiple Sclerosis with chronic suprapubic catheter, cognitive impairment and functional paraplegia: We will continue patient home methylphenidate, b aclofen, donepezil home regimen as well as lactulose for her chronic constipation associated additionally, maintain on fall precautions, offloading, therapies as well as case management consult as noted #6. Anemia, macrocytic, new appearing on Chronic anemia/Fe deficiency anemia: Admission hemoglobin 11.8, MCV 99.2 however prior to this has been normocytic, prior hemoglobin 07/28/22 11.3 however prior to this patient had primarily been 10-13 range had seen, will obtain vitamin B12, folic acid, iron panel, ferritin be cautious as well as guaiac. We will continue iron supplementation. #7. Chronic Kidney Disease Stage III, unclear subtype (GFR consistent with this since at least 2019 labs reviewed): Admission BUN/Cr 22/1.47, baseline renal function appears primarily 1.1-1.4, repeat BMP in AM. #8. Anxiety and depression: We will continue patient home mirtazapine as well as amitriptyline regimen. #9. Hypertension: Noted in history, no longer on medications, will continue monitor and consider adding regimen if appropriate, as needed IV hydralazine in interim. #10. Hyperlipidemia: Not on regimen, given low suspicion for any stroke involvement will defer immediate statin addition. #11. DVT prophylaxis: SCDs, Lovenox. #12. CODE STATUS: Full code. Charges/Coding Visit Charges Inpatient E&M: 94160 Init Hosp L3
--- NOTE | 2022-08-03 14:25 | NURSING ---
PCU WHITE ACUTE ENCEPHALOPATHY, POSS UTI, POSS SZ
[2022-08-03] MEDS: Ceftriaxone 1 GM/50 ML BAG IV (15:08)
[2022-08-03 15:59] LABS: Magnesium 2.1 mg/dL (1.6-2.6)
[2022-08-03] MEDS: Vancomycin IV 1,000 MG/200 ML BAG 200 MG IV (16:01)
[2022-08-03] MEDS: 0.9% Normal Saline 1,000 ML 100 ML IV (16:48)
[2022-08-03 17:13] LABS: Procalcitonin 0.07 ng/mL (0.00-0.09)
[2022-08-03] MEDS: hydrALAZINE 20 MG/ML Vial 10 MG IV (17:19)
[2022-08-03] MEDS: Potassium Chloride 10mEq/100mL 10 MEQ/100 ML IV.SOLN. 100 MEQ IV BOLUS ×3 (17:19→22:09)
--- NOTE | 2022-08-03 17:52 | PCM.RX.CS ---
Consult Pharmacy has been consulted to manage selected antiobiotic: Vancomycin Type of Consult: New start Prior Doses of Antibiotics Received/Current Regimen: 1000mg iv LD x 1 in ER 08.03.22. Labs: Sodium 143 mmol/L (136-145) 08/03/22 12:17 Potassium 3.3 mmol/L (3.5-5.1) L 08/03/22 12:17 Chloride 106 mmol/L (98-107) 08/03/22 12:17 Carbon Dioxide 33.0 mmol/L (21.0-32.0) H 08/03/22 12:17 Anion Gap 4 (5-15) L 08/03/22 12:17 BUN 22 mg/dL (7-18) H 08/03/22 12:17 Creatinine 1.47 mg/dL (0.55-1.02) H 08/03/22 12:17 Est GFR (MDRD) Af Amer 46 mL/min (>60) L 08/03/22 12:17 Est GFR (MDRD) Non-Af 38 mL/min (>60) L 08/03/22 12:17 BUN/Creatinine Ratio 15.0 RATIO (10-20) 08/03/22 12:17 Glucose 88 mg/dL (74-106) 08/03/22 12:17 Weight used for dosin.6 kg Estimated Creatinine Clearance: ~35 ml/min Goal Trough: 15-20 mcg/mL Pharmacy Plan for Drug Dosing: Will begin 750mg iv q24h per protocol. Trough level ordered for before 3rd dose. Pharmacy Service will continue to monitor and adjust dosing as required. Follow-Up Labs: Trough Vancomycin - 11.2. @9334
--- NOTE | 2022-08-03 18:43 | MRI_ITS ---
STUDY: MRI BRAIN WITH AND WITHOUT CONTRAST REASON FOR EXAM: Female, 67 years old. Seizure, MS TECHNIQUE: Standardized multiplanar fat and water weighted pulse sequences were obtained. IV 12mL Clariscan was administered for the contrast portion of the examination. COMPARISON: 11/24/2021. FINDINGS: There is no intracranial mass, mass effect or midline shift. No enhancing lesion following the administration of contrast. No hemorrhage, territorial infarct or acute ischemia. Chronic lacunar infarct in the left caudate nucleus. There is moderate cerebral atrophy with widening of the extra-axial spaces and ventricular dilatation. There are multiple white matter hyperintensities, distributed throughout the deep white matter tracts of the cerebral hemispheres, consistent with moderate chronic white matter ischemic changes. Normal bilateral basal ganglia. Normal thalami. There is no extra-axial fluid accumulation. Normal flow voids within the major intracranial circulation suggesting patency by spin echo criteria. There is no enhancing intra-axial or extra-axial abnormality. Pituitary gland is normal in height. Atrophy of the left cerebral peduncle. Normal yuki and medulla. Normal cerebellum. Normal basal cisterns. Normal bilateral temporal bones. Normal bilateral internal auditory canals. Normal visualized paranasal sinuses. Normal calvarium and skull base. Normal visualized soft tissue structures. MRI/Brain W/WO Contrast IMPRESSION: No acute findings. Chronic left caudate lacunar infarct. Chronic microvascular ischemic changes. Atrophy. Electronically Signed: Danika Sharma MD at 20:17 EDT Reading Location ID and State: [id number] / Tel , Service support ,
[2022-08-03] MEDS: 0.9% Saline Lock 10 ML Syringe IV (22:21)
[2022-08-03] MEDS: LORazepam 2 MG/ML Syringe 0.5 MG IV (22:21)
[2022-08-04] VITALS (9 sets, daily range): BP systolic 115–147; BP diastolic 65–83; PULSE 69–99; RESP 16–20; TEMP 36.3–37.3; O2SAT 93–100
[2022-08-04] MEDS: 0.9% Normal Saline 1,000 ML 100 ML IV ×3 (03:05→21:47)
[2022-08-04] MEDS: LORazepam 2 MG/ML Syringe 0.5 MG IV (05:20)
[2022-08-04] MEDS: 0.9% Saline Lock 10 ML Syringe IV (05:20)
[2022-08-04 06:43] LABS: Absolute Lymphocyte Count 2.66 X10^3/uL (0.83-4.51); Absolute Neutrophil Count 6.9 X10^3/uL (2.0-7.7); Basophil# 0.09 X10^3/uL; Basophil% 0.8 % (0-1); Eosinophils% 5.4 % (0-5); Hematocrit 40.4 % (37-47); Lymphocyte # 2.66 X10^3/ul (0.83-4.51); Lymphocyte % 24.1 % (19-41); Mean Corp Hgb Conc 32.2 g/dL (32-36); Mean Corpuscular Hgb 31.9 pg (27.0-32.0); Mean Platelet Vol. 10.4 fl (6.2-12.0); Monocyte# 0.79 X10^3/uL; Monocyte% 7.2 % (0-10); NRBC Flagged by Analyzer 0 % (0-5); Neutrophil # 6.85 X10^3/uL (2.7-7.7); Neutrophil % 62.2 % (47-70); POSITIVE COUNT YES; Platelet Count 142 K/mm3 (150-450); Red Blood Count 4.08 M/mm3 (4.2-5.4)
[2022-08-04 06:45] LABS: Differential Indicated SCAN CRITERIA MET
[2022-08-04 06:55] LABS: Platelet Estimate SLT DEC (ADEQ)
[2022-08-04 06:56] LABS: Platelet Morphology CLUMPED
[2022-08-04 08:16] LABS: Vitamin B12 1355 pg/mL (211-911)
[2022-08-04] MEDS: Ceftriaxone 1 GM/50 ML BAG IV (08:57)
[2022-08-04] MEDS: Bisacodyl 10 MG Suppository RC (09:01)
[2022-08-04] MEDS: Enoxaparin 40 MG/0.4 ML Syringe SC (09:01)
[2022-08-04 09:21] LABS: ALB/GLOB Ratio 0.6 RATIO (0.9-2.4); AST(SGOT) 25 U/L (15-37); Alanine Aminotransfer ALT/SGPT 25 U/L (13-56); Albumin, Serum 2.8 g/dL (3.2-5.0); Alkaline Phosphatase 82 U/L (45-117); Anion Gap 5 (5-15); BUN 20 mg/dL (7-18); BUN/Creat Ratio 14.1 RATIO (10-20); Calcium,Total 9.8 mg/dL (8.5-10.1); Chloride 113 mmol/L (98-107); Creatinine, Serum 1.42 mg/dL (0.55-1.02); EST Glomerular Filtration Rate 39 mL/min (>60); Est Glom Filt Rate - Afr Amer 47 mL/min (>60); Estimated Creatinine Clearance 35.69 ml/min; Ferritin 455 ng/mL (8-252); Globulin 4.5 g/dL (2.2-4.2); Glucose 76 mg/dL (74-106); Iron 87 ug/dL (50-170); Iron Binding Capacity,Total 437 ug/dL (250-450); PERCENT IRON SATURATION 19.9 % (15.0-55.0); Potassium 3.9 mmol/L (3.5-5.1); Protein, Total 7.3 g/dL (6.4-8.2); Sodium Level 143 mmol/L (136-145); T4 Free Direct 0.84 ng/dL (0.76-1.46); Thyroid Stim Hormone (TSH) 2.19 uIU/mL (0.358-3.74)
[2022-08-04] MEDS: Methylphenidate HCl 5 MG Tablet 10 MG PO (09:27)
--- NOTE | 2022-08-04 10:23 | PN.HOSP_ITS ---
Subjective Subjective DOS: 08/04/2022 CC: Follow-up altered mental status Patient unable to voice complaints but was able to nod and shake her head. and brother were at bedside. Reported that she was doing better than when she presented. She was able to nod her head and shake her head appropriately to questions and was able to participate in exam. Has the suprapubic catheter in place. Objective Data Objective Data Vital Signs: Vital Signs Temp Pulse Resp BP Pulse Ox O2 Del Method O2 Flow Rate 97.4 F L 69 18 134/77 H 96 Nasal Cannula 4 08/04/22 09:03 08/04/22 09:03 08/04/22 09:03 08/04/22 09:03 08/04/22 09:03 08/04/22 09:03 08/04/22 03:03 Oxygen Flow Rate (L/min) 4 Oxygen Delivery Method Nasal Cannula Weight: 58.8 kg Body Mass Index (BMI) 18.2 Intake & Output: Intake and Output for Last 24 Hours 08/02/22 08/03/22 08/04/22 23:59 23:59 23:59 Intake Total 1550.00 / 1550.00 1050 / 1050 Output Total 1725 / 1725 1000 / 1000 Balance -175.00 / -175.00 50 / 50 Lab / Micro Data Result Diagrams: 08/04/22 06:37 08/04/22 06:37 Labs: Laboratory Results - last 24 hr 08/03/22 12:17: WBC 6.6, RBC 3.73 L, Hgb 11.8 L, Hct 37.0, MCV 99.2 H, MCH 31.6, MCHC 31.9 L, RDW Std Deviation 50.7 H, RDW Coeff of Niurka 14.0, Plt Count 175, MPV 9.9, Immature Gran % (Auto) 0.300, Neut % (Auto) 58.7, Lymph % (Auto) 27.3, Mcintosh % (Auto) 7.3, Eos % (Auto) 5.6 H, Baso % (Auto) 0.8, Absolute Neuts (auto) 3.9, Absolute Lymphs (auto) 1.80, Nucleated RBC % 0 08/03/22 12:17: PT 13.9, INR 1.1, APTT 38.4 H 08/03/22 12:17: Sodium 143, Potassium 3.3 L, Chloride 106, Carbon Dioxide 33.0 H , Anion Gap 4 L, BUN 22 H, Creatinine 1.47 H, Estim Creat Clear Calc 34.82, Est GFR (MDRD) Af Amer 46 L, Est GFR (MDRD) Non-Af 38 L, BUN/Creatinine Ratio 15.0, Glucose 88, Calcium 9.4, Troponin I High Sens 10 08/03/22 12:17: Magnesium 2.1 08/03/22 12:20: Urine Color Yellow, Urine Clarity Clear, Urine pH 7.0, Ur S pecific Drummond 1.010, Urine Protein 100 H, Urine Glucose (UA) Normal, Urine Ketones Negative, Urine Occult Blood 250 H, Urine Nitrite Negative, Urine Brett irubin Negative, Urine Urobilinogen Normal, Ur Leukocyte Esterase 500 H, Urine RBC 10-25 SEEN, Urine WBC >100 SEEN, Ur Squamous Epith Cells 0-5 SEEN, Urine Bacteria 3+, Urine Mucus 0 SEEN 08/03/22 15:50: Procalcitonin 0.07 08/04/22 06:37: WBC 11.0, RBC 4.08 L, Hgb 13.0, Hct 40.4, MCV 99.0, MCH 31.9, MCHC 32.2, RDW Std Deviation 51.0 H, RDW Coeff of Niurka 14.0, Plt Count 142 L, MPV 10.4, Immature Gran % (Auto) 0.300, Neut % (Auto) 62.2, Lymph % (Auto) 24.1, Mon o % (Auto) 7.2, Eos % (Auto) 5.4 H, Baso % (Auto) 0.8, Absolute Neuts (auto) 6.9, Absolute Lymphs (auto) 2.66, Nucleated RBC % 0, Platelet Estimate SLT DEC, Plt Morphology Comment CLUMPED 08/04/22 06:37: Sodium 143, Potassium 3.9, Chloride 113 H, Carbon Dioxide 25.0, Anion Gap 5, BUN 20 H, Creatinine 1.42 H, Estim Creat Clear Calc 35.69, Est GFR (MDRD) Af Amer 47 L, Est GFR (MDRD) Non-Af 39 L, BUN/Creatinine Ratio 14.1, Glucose 76, Calcium 9.8, Iron 87, TIBC 437, Iron Saturation 19.9, Ferritin 455 H , Total Bilirubin 0.30, AST 25, ALT 25, Alkaline Phosphatase 82, Total Protein 7.3, Albumin 2.8 L, Globulin 4.5 H, Albumin/Globulin Ratio 0.6 L, Folate 45.90, TSH 2.19, Free T4 0.84 08/04/22 06:37: Vitamin B12 1355 H Radiography Diagnostic Testing: Radiology Impression Head/Neck CTA 08/03/22 11:57 IMPRESSION: Mild degree of atherosclerotic plaque formation of the carotid bifurcations bilaterally causing less than 50% narrowing. 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 N.B. : The above Results were Read Back by Luís Hines MD to Dhruv Monge and understanding confirmed on 08/03/2022 12:48:02 (ET). Electronically Signed: Luís Hines MD at 12:49 EDT , ADDENDUM: 08/03/22 1256 IMPRESSION: Mild degree of atherosclerotic plaque formation of the carotid bifurcations bilaterally causing less than 50% narrowing. 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 N.B. : The above Results were Read Back by Luís Hines MD to Dhruv Monge and understanding confirmed on 08/03/2022 12:48:02 (ET). Electronically Signed: Luís Hines MD at 12:49 EDT , ADDENDUM: 08/03/22 1335 IMPRESSION: undefined Brain CT 08/03/22 12:00 IMPRESSION: Chronic involutional changes of the brain. Old lacunar infarct in the left caudate nucleus. There has been no change. N.B. : The above Results were Read Back by Luís Hines MD to Dhruv Monge and understanding confirmed on 08/03/2022 12:29:43 (ET). Electronically Signed: Luís Hines MD at 12:30 EDT , ADDENDUM: 08/03/22 1237 IMPRESSION: Chronic involutional changes of the brain. Old lacunar infarct in the left caudate nucleus. There has been no change. N.B. : The above Results were Read Back by Luís Hines MD to Dhruv Monge and understanding confirmed on 08/03/2022 12:29:43 (ET). Electronically Signed: Luís Hines MD at 12:30 EDT , Chest X-Ray 08/03/22 12:36 IMPRESSION: Elevation of the right hemidiaphragm. Stable linear scarring at the left lung base. Electronically Signed: Luís Hines MD at 12:55 EDT , Brain MRI 08/03/22 18:43 IMPRESSION: No acute findings. Chronic left caudate lacunar infarct. Chronic microvascular ischemic changes. Atrophy. Electronically Signed: Danika Sharma MD at 20:17 EDT Reading Location ID and State: [id number] / Tel , Service support , Physical Exam Const alert Constitutional Narrative: Unable to answer orientation questions, does not appear acutely distressed HEENT HEENT Narrative: Mildly dry mucous membranes Eyes EOMs intact bilaterally Eyes Narrative: Pupils equal Neck supple Resp clear to auscultation bilaterally Cardio regular rate and regular rhythm GI soft to palpation and non-distended Extremity Extremity Narrative: Able to move all limbs that was weak. 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 Difficulty shrug ging shoulders but otherwise moving. Appropriate reflexes brachioradialis and biceps Psych Psych Narrative: Cooperative Assessment & Plan Assessment/Plan (1) Acute encephalopathy: PLAN: Plan The patient is a 67 y/o F w/ PMHx: Hx CVA, CKD stage III unclear subtype, HTN, HLD, Chronic anemia/Fe deficiency anemia, Anxiety and Depression, Multiple Sclerosis with chronic spurapubic catheter, cognitive impairment and functional paraplegia, recent discharge 07/28/22 following treatment Acute Klebsiella UTI in the setting of MS with cognitive impairment and functional paraplegia who now re-presents to the [facility] ED on 08/03/22 with history of last noted baseline at 2100 the evening prior however upon awakening spouse noticed that she was unable to speak with baseline stable debilities given significant underlying cognitive impairment as well as functional paraplegia. #1. Acute metabolic encephalopathy likely multiple etiologies Concern for UTI Has chronic suprapubic catheter (changed every 2 weeks, most recently 5 days prior to presentation) and was recently treated for acute Klebsiella UTI, UA in the ED concerning for repeat UTI Urine culture and blood cultures pending On IV fluids Continue IV Rocephin and vancomycin was ordered given her history of MRSA UTIs Pro-Carlos negative but given high suspicion we will continue antibiotics at this time PT/OT consult for discharge planning Of note given her altered mental status [facility] stroke team was contacted and it was felt that she was more likely encephalopathic and recommended admission and encephalopathy evaluation and treatment of UTI Brain MRI with chronic changes EEG nonspecific, will consult neurology Additionally could have a component of polypharmacy, will hold methylphenidate as it can lower the seizure threshold as well as we will hold amitriptyline and memantine and donepezil. #2. Questionable New-onset seizure: Concern for possible seizure while in the ED, witnessed with lethargy following. CT head without acute intracranial pathology-MRI with chronic changes Will maintain on telemetry to be cautious, maintain on seizure precautions EEG nonspecific, MRI with chronic changes Evaluated by speech and flaco for critical meds with applesauce PRN ativan IV for seizure activity. We will hold on immediate usage of antiepileptic drugs routinely/load pending further assessments as noted. #3. Incidental carotid bifurcations bilaterally, incidental 7.7 mm x 5.7 mm aneurysm arising R internal carotid artery->distal cervical portion along medial aspect: Neurology recontacted per ED and discussed these findings with recommendation at discharge for follow-up with vascular versus neurosurgery with no acute interventions necessary. #5. Multiple Sclerosis with chronic suprapubic catheter, cognitive impairment and functional paraplegia We will hold methylphenidate as it may decrease seizure threshold, will transition Ativan back to baclofen #6. Anemia, macrocytic, new appearing on Chronic anemia/Fe deficiency anemia: Admission hemoglobin 11.8, MCV 99.2 however prior to this has been normocytic, prior hemoglobin 07/28/22 11.3 however prior to this patient had primarily been 10-13 range had seen, will obtain vitamin B12, folic acid, iron panel, ferritin be cautious as well as guaiac. We will continue iron supplementation. 08/04/2022: Iron panel within normal limits, ferritin high, B12 elevated and folic acid within normal limits as is TSH #7. Chronic Kidney Disease Stage III, unclear subtype (GFR consistent with this since at least 2019 labs reviewed): Admission BUN/Cr 25/10.47, baseline renal function appears primarily 1.1-1.4, continue to monitor BMP #8. Anxiety and depression: We will continue patient home mirtazapine #9. Hypertension: Noted in history, no longer on medications, will continue monitor and consider adding regimen if appropriate, as needed IV hydralazine in interim. #10. Hyperlipidemia: Not on regimen, given low suspicion for any stroke involvement will defer immediate statin addition. #11. DVT prophylaxis: SCDs, Lovenox. Charges/Coding Visit Charges Inpatient E&M: 43296 Subs Hosp L2
[2022-08-04] MEDS: Baclofen 10 MG Tablet 20 MG PO ×2 (13:24→21:46)
--- NOTE | 2022-08-04 13:49 | CASEMGMT ---
Readmission chart review: 07/23-07/28/22 Debility 08/03/22-current Encephalopathy, UTI, possible seizure Pt presented to [facility] ED on 07/23 for difficulty keeping meds/fluids down, here for dehydration and pt was seen the day prior to same. Pt has hx MS and neurogenic bladder. has been caring for pt for last several years d/t decline. Pt has suprapubic catheter. requested that fluids be set up so he can give PRN and pt's PCP, Dr. Carranza, was contacted and this was being set up thru their office. Pt was set up with [facility] at discharge, pt is still active. Pt then presented to [facility] ED again on 08/03/22 for stating pt with aphasia. MRI is negative and EEG is pending. CM to follow for [facility] and any further discharge planning/needs. Zachariah SU CM
[2022-08-04] MEDS: MELATONIN 10 MG TABLET PO (21:46)
[2022-08-04] MEDS: Mirtazapine 15 MG Tablet 45 MG PO (21:46)
[2022-08-04] MEDS: Nystatin Powder 15gm Bottle 1 APPLIC TOPICAL (21:46)
--- NOTE | 2022-08-04 21:49 | NURSING ---
pt placed on 4 L 02 via NC at HS.
[2022-08-05] VITALS (11 sets, daily range): BP systolic 117–152; BP diastolic 61–78; PULSE 75–86; RESP 16–20; TEMP 36.4–36.8; O2SAT 93–97
[2022-08-05] MEDS: Baclofen 10 MG Tablet 20 MG PO ×3 (05:24→21:19)
[2022-08-05 05:33] LABS: Absolute Lymphocyte Count 2.08 X10^3/uL (0.83-4.51); Absolute Neutrophil Count 6.6 X10^3/uL (2.0-7.7); Basophil# 0.08 X10^3/uL; Basophil% 0.8 % (0-1); Eosinophil# 0.45 X10^3/uL; Eosinophils% 4.5 % (0-5); Hematocrit 37.6 % (37-47); Hemoglobin 11.9 g/dL (12.0-15.0); Lymphocyte # 2.08 X10^3/ul (0.83-4.51); Mean Corp Hgb Conc 31.6 g/dL (32-36); Mean Corpuscular Hgb 31.6 pg (27.0-32.0); Mean Platelet Vol. 10.1 fl (6.2-12.0); Monocyte# 0.66 X10^3/uL; Monocyte% 6.7 % (0-10); NRBC Flagged by Analyzer 0 % (0-5); Neutrophil # 6.63 X10^3/uL (2.7-7.7); Neutrophil % 66.8 % (47-70); Platelet Count 177 K/mm3 (150-450); RBC Distribution Width CV 14.1 % (11.6-14.6); RBC Distribution Width SD 51.4 fl (35.1-43.9); Red Blood Count 3.76 M/mm3 (4.2-5.4); White Blood Count 9.9 K/mm3 (4.4-11.0)
[2022-08-05 06:12] LABS: ALB/GLOB Ratio 0.7 RATIO (0.9-2.4); AST(SGOT) 15 U/L (15-37); Alanine Aminotransfer ALT/SGPT 21 U/L (13-56); Albumin, Serum 2.5 g/dL (3.2-5.0); Alkaline Phosphatase 70 U/L (45-117); Anion Gap 8 (5-15); BUN 20 mg/dL (7-18); BUN/Creat Ratio 14.6 RATIO (10-20); Calcium,Total 9.3 mg/dL (8.5-10.1); Chloride 116 mmol/L (98-107); Creatinine, Serum 1.37 mg/dL (0.55-1.02); EST Glomerular Filtration Rate 41 mL/min (>60); Est Glom Filt Rate - Afr Amer 49 mL/min (>60); Estimated Creatinine Clearance 36.99 ml/min; Globulin 3.7 g/dL (2.2-4.2); Glucose 58 mg/dL (74-106); Potassium 3.9 mmol/L (3.5-5.1); Protein, Total 6.2 g/dL (6.4-8.2); Sodium Level 147 mmol/L (136-145)
[2022-08-05] MEDS: 0.9% Normal Saline 1,000 ML 100 ML IV (08:02)
--- NOTE | 2022-08-05 10:41 | PN.HOSP_ITS ---
Subjective Subjective DOS: 08/05/2022 CC: Unable to voice chief complaint secondary to difficulty with communication Saw Ms. Sharp at bedside with present. She does seem to be doing better, more alert and responsive however still has difficulty with any kind of speaking. For official swallow study today. Discussed nutrition and hydration status with for period of time and broached the subject of possible PEG tube to assist with this at home as IV fluids has been discussed with previous providers and PCP and seems that it is not an option and PEG tube would also help with nutritional status. Willing to discuss and consider this. Objective Data Objective Data Vital Signs: Vital Signs Temp Pulse Resp BP Pulse Ox O2 Del Method O2 Flow Rate 97.6 F L 75 18 129/69 H 95 Room Air 4 08/05/22 05:01 08/05/22 07:00 08/05/22 05:01 08/05/22 05:01 08/05/22 07:52 08/05/22 07:52 08/05/22 05:02 Oxygen Flow Rate (L/min) 4 Oxygen Delivery Method Room Air Weight: 59.6 kg Body Mass Index (BMI) 18.2 Intake & Output: Intake and Output for Last 24 Hours 08/03/22 08/04/22 08/05/22 23:59 23:59 23:59 Intake Total 1550.00 / 1550.00 3153.33 / 3153.33 1000 / 1000 Output Total 1725 / 1725 2150 / 2150 175 / 175 Balance -175.00 / -175.00 1003.33 / 1003.33 825 / 825 Medical Nutrition Assessment Dietitian: Malnutrition Criteria Met Start: 08/04/22 11:33 Freq: Status: Active Protocol: Document 08/04/22 11:33 (Rec: 08/04/22 11:33 [id number]) Nutrition Malnutrition Evidence of Malnutrition Exists Yes Malnutrition (moderate): Acute Illness/Injury Evidenced By Suboptimal Energy Intake ( Moderate),Weight Loss ( Moderate) Clinical Problem Acute Disease or Injury Related Malnutrition Etiology moderate, acute malnutrition related to inadequate energy intake Signs/Symptoms as evidenced by unintentional wt loss 1.8#/1.4% x 1 week; estimated energy intake meeting <75% of estimated energy needs. 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 Lab / Micro Data Result Diagrams: 08/05/22 04:53 08/05/22 04:53 Labs: Laboratory Results - last 24 hr 08/05/22 04:53: WBC 9.9, RBC 3.76 L, Hgb 11.9 L, Hct 37.6, MCV 100.0 H, MCH 31.6, MCHC 31.6 L, RDW Std Deviation 51.4 H, RDW Coeff of Niurka 14.1, Plt Count 177, MPV 10.1, Immature Gran % (Auto) 0.200, Neut % (Auto) 66.8, Lymph % (Auto) 21.0, [place] % (Auto) 6.7, Eos % (Auto) 4.5, Baso % (Auto) 0.8, Absolute Neuts (auto) 6.6, Absolute Lymphs (auto) 2.08, Nucleated RBC % 0 08/05/22 04:53: Sodium 147 H, Potassium 3.9, Chloride 116 H, Carbon Dioxide 23.0, Anion Gap 8, BUN 20 H, Creatinine 1.37 H, Estim Creat Clear Calc 36.99, Est GFR (MDRD) Af Amer 49 L, Est GFR (MDRD) Non-Af 41 L, BUN/Creatinine Ratio 14 .6, Glucose 58 L, Calcium 9.3, Total Bilirubin 0.40, AST 15, ALT 21, Alkaline Phosphatase 70, Total Protein 6.2 L, Albumin 2.5 L, Globulin 3.7, Albumin/Globulin Ratio 0.7 L Physical Exam Const alert Constitutional Narrative: Nods and shakes head appropriately HEENT head/scalp atraumatic Eyes EOMs intact bilaterally Neck supple Resp normal respiratory effort and clear to auscultation bilaterally Cardio regular rate and regular rhythm GI soft to palpation, non-tender and non-distended Extremity Extremity Narrative: Moving all extremities, no edema Neuro Neuro Narrative: Shaking and nodding head appropriately, was able to say the word okay today. Seems to be improving Psych Psych Narrative: Cooperative Assessment & Plan Assessment/Plan (1) Acute encephalopathy: PLAN: Plan The patient is a 67 y/o F w/ PMHx: Hx CVA, CKD stage III unclear subtype, HTN, HLD, Chronic anemia/Fe deficiency anemia, Anxiety and Depression, Multiple Sclerosis with chronic spurapubic catheter, cognitive impairment and functional paraplegia, recent discharge 07/28/22 following treatment Acute Klebsiella UTI in the setting of MS with cognitive impairment and functional paraplegia who now re-presents to the [facility] ED on 08/03/22 with history of last noted baseline at 2100 the evening prior however upon awakening spouse noticed that she was unable to speak with baseline stable debilities given significant underlying cognitive impairment as well as functional paraplegia. #Acute metabolic encephalopathy likely multiple etiologies Concern for UTI Has chronic suprapubic catheter (changed every 2 weeks, most recently 5 days prior to presentation) and was recently treated for acute Klebsiella UTI, UA in the ED concerning for repeat UTI Urine culture and blood cultures pending On IV fluids Continue IV Rocephin and vancomycin was ordered given her history of MRSA UTIs Pro-Carlos negative but given high suspicion we will continue antibiotics at this time PT/OT consult for discharge planning Of note given her altered mental status [facility] stroke team was contacted and it was felt that she was more likely encephalopathic and recommended admission and encephalopathy evaluation and treatment of UTI Brain MRI with chronic changes EEG nonspecific, will consult neurology Additionally could have a component of polypharmacy, will hold methylphenidate as it can lower the seizure threshold as well as we will hold amitriptyline and memantine and donepezil. 08/25/22: Improving, still likely multifactorial. Seems to have done well with discontinuation of several medicines. Unable to rule out urinary tract infection as a significant contributing factor, additionally with seizure-like activity unable to rule out postictal state when she arrived. Awaiting neurology input #Multiple Sclerosis with chronic suprapubic catheter, cognitive impairment and functional paraplegia Has difficulty maintaining hydration nutrition status at home Discussed PEG tube, she has had this before and had a suboptimal experience due to placement and it was removed We will continue to keep this avenue of discussion open as it may be the best option moving forward for both nutrition and hydration and to help prevent rehospitalization and improve quality of life #Questionable New-onset seizure: Concern for possible seizure while in the ED, witnessed with lethargy following. CT head without acute intracranial pathology-MRI with chronic changes Will maintain on telemetry to be cautious, maintain on seizure precautions EEG nonspecific, MRI with chronic changes Evaluated by speech and birday for critical meds with applesauce PRN ativan IV for seizure activity. We will hold on immediate usage of antiepileptic drugs routinely/load pending further assessments as noted. 08/05/2022: Awaiting neurology input, no further episodes noted at this time # Incidental carotid bifurcations bilaterally, incidental 7.7 mm x 5.7 mm aneurysm arising R internal carotid artery->distal cervical portion along medial aspect: Neurology recontacted per ED and discussed these findings with recommendation at discharge for follow-up with vascular versus neurosurgery with no acute interventions necessary. # Anemia, macrocytic, new appearing on Chronic anemia Admission hemoglobin 11.8, MCV 99.2 however prior to this has been normocytic, prior hemoglobin 07/28/22 11.3 however prior to this patient had primarily been 10-13 range had seen, will obtain vitamin B12, folic acid, iron panel, ferritin be cautious as well as guaiac. We will continue iron supplementation. 08/04/2022: Iron panel within normal limits, ferritin high, B12 elevated and folic acid within normal limits as is TSH 08/05/2022: Continue to monitor, no evidence of bleeding at this time # Chronic Kidney Disease Stage III, unclear subtype (GFR consistent with this since at least 2019 labs reviewed): Admission BUN/Cr 25/10.47, baseline renal function appears primarily 1.1-1.4, 08/05/2022 continue to monitor BMP #8. Anxiety and depression: We will continue patient home mirtazapine #9. Hypertension: Noted in history, no longer on medications, will continue monitor and consider adding regimen if appropriate, as needed IV hydralazine in interim. #10. Hyperlipidemia: Not on regimen, given low suspicion for any stroke involvement will defer immediate statin addition. #11. DVT prophylaxis: SCDs, Lovenox. Time spent greater than 40 minutes Charges/Coding Visit Charges Inpatient E&M: 73023 Subs Hosp L3
[2022-08-05] MEDS: Ceftriaxone 1 GM/50 ML BAG IV (10:51)
[2022-08-05] MEDS: Nystatin Powder 15gm Bottle 1 APPLIC TOPICAL ×2 (10:52→21:19)
[2022-08-05] MEDS: Lactated Ringers 1,000 ML 75 ML IV (12:05)
--- NOTE | 2022-08-05 15:07 | SP.MBSS_ITS ---
Modified Barium Swallow - Patient Information Study Date: 08/05/22 Study Time: 13:45 Direct Billable Minutes: 114 Total Minutes procedure & reportin Diagnosis: Multiple Sclerosis (G35) Referring Physician: Nia Orourke Reason for Referral: Objectively assess swallow function, risk for aspiration, and determine recommendations for least restrictive diet textures and compensatory strategies to improve safety of swallow. Medical History: The patient is a 67-year-old F w/ PMHx: Hx CVA, CKD stage III unclear subtype, HTN, HLD, Chronic anemia/Fe deficiency anemia, Anxiety and Depression, Multiple Sclerosis with chronic suprapubic catheter, cognitive impairment and functional paraplegia, recent discharge 07/28/22 following treatment of acute Klebsiella UTI in the setting of MS with cognitive impairment and functional paraplegia who now re-presented to the [facility] ED on 08/03/22. Her last noted baseline was 21:00 the evening prior to admission; however, upon awakening spouse noticed that she was unable to speak. In ED, [facility] stroke alert felt this was more likely encephalopathy with concern for possible recurrent urinary tract infection with recommended admission and encephalopathy evaluation as well as treatment of urinary tract infection. However, while in the ED she had rhythm shaking of her head specifically up and towards the right and smacking of her lips lasting 1-2 minutes which was videotaped per the spouse and reviewed. Patient also reportedly had similar presentation however this was following anesthetics remotely and was never followed up. [facility] telestroke was re-contacted giving image findings with aneurysm with recommendation for outpatient follow-up with vascular surgery versus neurosurgery with no acute interventions necessary at this time. The patient has been admitted to be managed for acute encephalopathy with further work up to address concern for possible UTI and possible seizures. Referred for BSE after failing dysphagia screening. PHOTOVOLTAIC POWER SYSTEMS ENGINEER recommended the pt NPO - ok for ice chips sparingly if fully alert and critical meds in . PHOTOVOLTAIC POWER SYSTEMS ENGINEER recommended MBSS prior to diet advancement to reassess swallow function and aspiration risk. The patient has a history of oropharyngeal phase dysphagia. 5 known MBSS have been completed in the past. Most recent MBSS 11/17/2017, which revealed SILENT aspiration of thin liquids and SILENT aspiration of sequential sips of nectar thickened liquids. The study recommended regular-soft textured, nectar thickened liquid diet with the following compensatory strategies: Supervision with assistance for setup, cut solids into bite sized pieces, reduced bolus volume, reduced rate of intake, straws with all liquids, seated upright at 90 degrees during PO intake, medications with liquid chaser. The patient has primarily continued on soft solids, thin liquids at home with a modified FFWP. Per patient's , she has never been diagnosed with aspiration PNA. Current Diet Ordered: NPO with ice chips sparingly Dentition: WNL Mental Status: WNL Respiratory Status: Oxygenating on Room Air - Penetration-Aspiration Scale Penetration-Aspiration Scale: OBJECTIVE ASSESSMENT OF SWALLOW FUNCTION (QUANTITATIVE ? PER TRIAL): PENETRATION / ASPIRATION SCALE (ALBERTO): 1 = does not enter airway 2 = enters airway/above vocal folds/ejected 3 = enters airway/above vocal folds/not ejected 4 = enters airway/contacts vocal folds/ejected 5 = enters airway/contacts vocal folds/not ejected 6 = enters airway/below vocal folds/ejected 7 = enters airway/below vocal folds/not ejected despite effort 8 = enters airway/below vocal folds/no effort VIDEOFLOROSCOPIC SCALE SCORE (ALBERTO): Grade I = aspiration of material that has penetrated into the laryngeal vestibule, intact cough reflex Grade II = aspiration < 10 % of the bolus, intact cough reflex Grade III = aspiration of < 10 % of the bolus, reduced cough reflex or aspiration of > 10 % of the bolus, intact cough reflex Grade IV = aspiration of > 10 % of the bolus, reduced cough reflex - Penetration-Aspiration Scale Score Thin Liquid via teaspoon Result: 8= enters airway/below vocal folds/no effort - trace aspiration Thin Liquid via teaspoon Effortful swallow Result: 1= does not enter airway Thin Liquid via small single sip from cup Result: 7= enters airways/below vocal folds/not ejected despite effort [place] Thick Liquid via teaspoon Result: 8= enters airway/below vocal folds/no effort Honey Thick Liquid via teaspoon Result: 3= enters airways/above vocal folds/not ejected - Cued cough to attempt clearing vocal folds and laryngeal vestibule of barium from previous trials - cough was ineffective Pudding via teaspoon with esophageal screen Result: 1= does not enter airway 1/4 cookie Result: 2= enter airway/above vocal folds/ejected Thin Liquid via teaspoon Effortful swallow Trial 2 Result: 8= enters airway/below vocal folds/no effort Pudding via teaspoon Result: 1= does not enter airway Thin Liquid via teaspoon with patient reclined so neck was in upright postition Result: 8= enters airway/below vocal folds/no effort - trace aspiration - Oral Phase Labial Seal: Escape beyond mid-chin Tongue Control During Bolus Hold: Posterior escape of greater than half of bolus Bolus Preparation/Mastication: Disorganized chewing/mashing with solid pieces of bolus unchewed Bolus Transport/Lingual Motion: Slowed tongue motion Oral Residue: Residue collection on oral structures - Pharyngeal Phase Initiation of Pharyngeal Swallow: Bolus head in pyriforms Soft Palate Elevation: No bolus between soft palate and pharyngeal wall Laryngeal Elevation: Partial superior movement thyroid cart/partial apprx aryt- epig petiole Anterior Hyoid Excursion: Partial anterior movement Epiglottic Movement: Complete inversion Laryngeal Vestibule Closure at Height of Swallow: Incomplete; narrow column of air/contrast in laryngeal vestibule Pharyngeal Stripping Wave: Present - diminished Pharyngoesophageal Segment Opening: Complete distension and complete duration; no obstruction of flow Tongue Base Retraction: Wide column of contrast between tongue base & post. pharyngeal wall Pharyngeal Residue: Collection of residue within or on pharyngeal structures - ~50% of cookie bolus remaining in the pharynx after the swallow - Esophageal Phase Esophageal Clearance: Esophageal retention w/ retrograde flow below pharyngoesophageal seg. - Trace retention of pudding with retrograde flow remaining well below the UES - Treatment Strategies Effects of treatment strategies attemped:: somewhat reclined position so neck is in upright position = somewhat effective effortful swallow = not effective cough and re-swallow = not effective - Diagnosis/Impression Diagnosis: Severe oropharyngeal phase dysphagia (R13.12) Impression: The patient presented with kyphotic posture and head tilt slightly right, which made it difficult to score certain trials due to boluses in the pyriforms obscuring the view of the laryngeal vestibule during the swallow. Certain PAS scores were determined based on whether the patient had increased contrast in the laryngeal vestibule or trachea after the swallow was completed. The oral phase is primarily marked by... -Decreased bolus control with >1/2 of the bolus spilling posteriorly to the pyriforms prior to swallow onset, which was observed with thin liquids especially. Cookie spilled to the posterior surface of the epiglottis during mastication and prior to swallow onset. -Slowed tongue motion for A-P transport with collection of cookie residue remaining on the tongue after the swallow. -Greatly prolonged mastication of 1/4 Lynn Doone cookie (>2 minutes); however, a majority of the bolus did appear chewed. PHOTOVOLTAIC POWER SYSTEMS ENGINEER is recommending purees at this time so the patient can consume more nutrition with less effort to prevent fatigue at meals. The pharyngeal phase is primarily marked by... -Decreased airway closure during the swallow due to decreased anterior hyoid excursion and decreased laryngeal elevation. -Moderately-severely decreased tongue base retraction and decreased pharyngeal contraction resulted in mild-moderate pharyngeal residues after the swallow, especially observed with ~1/2 of cookie trial remaining in the laryngeal vestibule after the swallow. -SILENT aspiration of thin liquids by tsp and nectar thickened liquids by tsp. Laryngeal penetration of honey thick liquid by tsp, which did not fully eject from the laryngeal vestibule after the swallow. She is at risk to aspirate contr ast remaining in the laryngeal vestibule after the swallow. Cough was ineffective in decreasing residues remaining in the laryngeal vestibule to trace amounts. - Recommendations Diet: Puree Textures, Pudding-thick Liquids Comment: Due to her kyphotic posture, she benefits from having her body somewhat reclined with her neck in an upright position for oral intake. THE PATIENT IS OK FOR MODIFIED MILLER FREE WATER PROTOCOL: She requires oral care after all meals/snacks, then after 30 minutes she is ok for THIN WATER ONLY by tsp with total feeding assistance. Compensatory Strategies: Small Bites, Liquid by Teaspoon Only, Slow Rate Supervision: Total Feed - Pt's has been thoroughly educated in recommendations and precautions and is ok to feed the patient. Recommend Repeat Modified Barium Swallow: TBD Need for Skilled Speech Therapy Services: Yes Comment: Will recommend the patient for continued dysphagia therapy to address severe deficits in oropharyngeal swallow function. Will recommend the patient for oropharyngeal strengthening to improve lingual strength/coordination, laryngeal elevation, hyoid excursion, and tongue base retraction. The patient would benefit from thorough education regarding diet recommendations and recommended compensatory strategies. Education Completed: 1. Described result of evaluation., 4. Family/caregivers understand evaluation & agree w/ goals & tx plan., 6. Family/caregivers demonstrate recommended strategies., 7. Pt requires further education on strategies & risks. - Status Active ST Patient: Active - Contact Information [facility] Speech Therapy:: Smita Zheng M.A. [facility]-PHOTOVOLTAIC POWER SYSTEMS ENGINEER Speech-Language Pathologist [facility] [address] [place] [address] [email or web address] [phone] 08/05/22 15:28
[2022-08-05 15:31] LABS: Vancomycin, Trough Level 14.3 ug/mL (5.0-15.0)
--- NOTE | 2022-08-05 15:52 | PCM.RX.CS ---
Consult Pharmacy has been consulted to manage selected antiobiotic: Vancomycin Type of Consult: Follow-up Prior Doses of Antibiotics Received/Current Regimen: Had been on 750mg iv q24h. Labs: Sodium 147 mmol/L (136-145) H 08/05/22 04:53 Potassium 3.9 mmol/L (3.5-5.1) 08/05/22 04:53 Chloride 116 mmol/L (98-107) H 08/05/22 04:53 Carbon Dioxide 23.0 mmol/L (21.0-32.0) 08/05/22 04:53 Anion Gap 8 (5-15) 08/05/22 04:53 BUN 20 mg/dL (7-18) H 08/05/22 04:53 Creatinine 1.37 mg/dL (0.55-1.02) H 08/05/22 04:53 Est GFR (MDRD) Af Amer 49 mL/min (>60) L 08/05/22 04:53 Est GFR (MDRD) Non-Af 41 mL/min (>60) L 08/05/22 04:53 BUN/Creatinine Ratio 14.6 RATIO (10-20) 08/05/22 04:53 Glucose 58 mg/dL (74-106) L 08/05/22 04:53 Vancomycin Trough 14.3 ug/mL (5.0-15.0) 08/05/22 14:39 Microbiology: Microbiology 08/03/22 15:00 Blood Culture (Wb) - Port Blood Culture - Preliminary No growth in 48 hours. 08/03/22 14:23 Blood Culture (Wb) - Port Blood Culture - Preliminary No growth in 48 hours. Weight used for dosin.6 kg Estimated Creatinine Clearance: 37ml/min Goal Trough: 15-20 mcg/mL Pharmacy Plan for Drug Dosing: Renal function improved at Cr 1.37 and SCrCl 37 ml/min. Trough today ~25hrs post last dose was 14.3 with goal of 15-20mcg/ml. Will change dose and freq to 1gm IV Q24H. Repeat trough ordered for before 3rd dose of new regimen. Pharmacy Service will continue to monitor and adjust dosing as required. Follow-Up Labs: Trough Vancomycin - 08.07.22
--- NOTE | 2022-08-05 16:24 | CHAPLAIN ---
Type of Pastoral Visit ___ Initial Visit _x__ Follow-up Visit ___ On-call Visit ___ General Patient Visit ___ Spiritual Assessment ___ Family Conference ___ Bereavement ___ Rapid Response ___ Code Blue ___ Other (describe below) Pastoral Care Referral From ___ Patient _x__ Family ___ Nurse ___ Physician ___ Negative Turner ___ Tip Stretcher ___ Other (describe below) Sacrament/Intervention _x__ Active listening ___ Anointing ___ Jew ___ Bereavement ___ Communion ___ Justine exploration ___ ___ Life review ___ Prayer ___ Reconciliation ___ Sacrament of Sick ___ Supportive presence ___ Wedding ___ Other (describe below) Pastoral Comments follow up visit to check in with patient and spouse for any additional support needed
[2022-08-05] MEDS: Vancomycin IV 1,000 MG/200 ML BAG 200 MG IV (16:27)
[2022-08-05] MEDS: levETIRAcetam IV 1,000 MG/100 ML BAG 400 MG IV (17:39)
[2022-08-05] MEDS: NYSTATIN 500,000 UNIT/5 ML UDC 500000 UNIT PO (19:04)
--- NOTE | 2022-08-05 19:36 | NURSING ---
Charting reviewed with Estefani Presley RN
[2022-08-05] MEDS: MELATONIN 10 MG TABLET PO (21:19)
[2022-08-05] MEDS: Mirtazapine 15 MG Tablet 45 MG PO (21:19)
[2022-08-06] VITALS (14 sets, daily range): BP systolic 124–143; BP diastolic 79–85; PULSE 79–95; RESP 16–20; TEMP 36.5–37.5; O2SAT 92–96
[2022-08-06] MEDS: Lactated Ringers 1,000 ML 75 ML IV ×2 (00:38→15:39)
[2022-08-06] MEDS: Baclofen 10 MG Tablet 20 MG PO ×3 (05:19→22:22)
[2022-08-06 06:00] LABS: Absolute Lymphocyte Count 2.17 X10^3/uL (0.83-4.51); Absolute Neutrophil Count 5.2 X10^3/uL (2.0-7.7); Basophil# 0.07 X10^3/uL; Basophil% 0.8 % (0-1); Eosinophil# 0.67 X10^3/uL; Eosinophils% 7.6 % (0-5); Hematocrit 37.6 % (37-47); Hemoglobin 12.4 g/dL (12.0-15.0); Lymphocyte # 2.17 X10^3/ul (0.83-4.51); Lymphocyte % 24.6 % (19-41); Mean Corpuscular Hgb 32.2 pg (27.0-32.0); Mean Corpuscular Volume 97.7 fL (81-99); Mean Platelet Vol. 10.3 fl (6.2-12.0); Monocyte% 7.9 % (0-10); NRBC Flagged by Analyzer 0 % (0-5); Neutrophil # 5.19 X10^3/uL (2.7-7.7); Neutrophil % 58.8 % (47-70); Platelet Count 178 K/mm3 (150-450); RBC Distribution Width CV 13.9 % (11.6-14.6); RBC Distribution Width SD 50.1 fl (35.1-43.9); Red Blood Count 3.85 M/mm3 (4.2-5.4); White Blood Count 8.8 K/mm3 (4.4-11.0)
[2022-08-06 06:45] LABS: Anion Gap 5 (5-15); BUN 22 mg/dL (7-18); Calcium,Total 9.3 mg/dL (8.5-10.1); Chloride 113 mmol/L (98-107); Creatinine, Serum 1.47 mg/dL (0.55-1.02); EST Glomerular Filtration Rate 38 mL/min (>60); Est Glom Filt Rate - Afr Amer 46 mL/min (>60); Estimated Creatinine Clearance 35.41 ml/min; Glucose 89 mg/dL (74-106); Potassium 3.3 mmol/L (3.5-5.1); Sodium Level 145 mmol/L (136-145)
--- NOTE | 2022-08-06 08:32 | PCM.PN.HOSP ---
Subjective Subjective DOS: 08/06/2022 CC: Follow-up altered mental status Reports feeling slightly better, has difficulty answering questions but is more conversive/responsive than previous. not at bedside at the time of exam but will reevaluate later this morning as well. Possibly felt that she was having a little bit of a harder time breathing but was unable to describe Further. Moving all limbs, did not voice any additional concerns. Started on Keppra yesterday. Objective Data Objective Data Vital Signs: Vital Signs Temp Pulse Resp BP Pulse Ox O2 Del Method O2 Flow Rate 97.7 F L 79 20 H 130/79 H 94 Nasal Cannula 4 08/06/22 04:58 08/06/22 07:00 08/06/22 04:58 08/06/22 04:58 08/06/22 04:58 08/06/22 04:58 08/06/22 04:58 Oxygen Flow Rate (L/min) 4 Oxygen Delivery Method Nasal Cannula Weight: 60.4 kg Body Mass Index (BMI) 18.2 Intake & Output: Intake and Output for Last 24 Hours 08/04/22 08/05/22 08/06/22 23:59 23:59 23:59 Intake Total 3153.33 / 3153.33 1673.33 / 1673.33 941.25 / 941.25 Output Total 2150 / 2150 1625 / 1625 750 / 750 Balance 1003.33 / 1003.33 48.33 / 48.33 191.25 / 191.25 Medical Nutrition Assessment Dietitian: Malnutrition Criteria Met Start: 08/04/22 11:33 Freq: Status: Active Protocol: Document 08/04/22 11:33 (Rec: 08/04/22 11:33 [id number]) Nutrition Malnutrition Evidence of Malnutrition Exists Yes Malnutrition (moderate): Acute Illness/Injury Evidenced By Suboptimal Energy Intake ( Moderate),Weight Loss ( Moderate) Clinical Problem Acute Disease or Injury Related Malnutrition Etiology moderate, acute malnutrition related to inadequate energy intake Signs/Symptoms as evidenced by unintentional wt loss 1.8#/1.4% x 1 week; estimated energy intake meeting <75% of estimated energy needs. Status Active Problem Recommendation Dietitian Recommendations/Changes regular diet- texture/ consistency per ROLLING MACHINE OPERATOR; ensure plus high protein 120mL 4x/day w/ medpass when diet advanced . Lab / Micro Data Result Diagrams: 08/06/22 05:04 08/06/22 05:04 Labs: Laboratory Results - last 24 hr 08/05/22 14:39: Vancomycin Trough 14.3 08/06/22 05:04: WBC 8.8, RBC 3.85 L, Hgb 12.4, Hct 37.6, MCV 97.7, MCH 32.2 H, MCHC 33.0, RDW Std Deviation 50.1 H, RDW Coeff of Niurka 13.9, Plt Count 178, MPV 10.3, Immature Gran % (Auto) 0.300, Neut % (Auto) 58.8, Lymph % (Auto) 24.6, [place] % (Auto) 7.9, Eos % (Auto) 7.6 H, Baso % (Auto) 0.8, Absolute Neuts (auto) 5.2, Absolute Lymphs (auto) 2.17, Nucleated RBC % 0 08/06/22 05:04: Sodium 145, Potassium 3.3 L, Chloride 113 H, Carbon Dioxide 27.0, Anion Gap 5, BUN 22 H, Creatinine 1.47 H, Estim Creat Clear Calc 35.41, Est GFR (MDRD) Af Amer 46 L, Est GFR (MDRD) Non-Af 38 L, BUN/Creatinine Ratio 15.0, Glucose 89, Calcium 9.3 Micro: Microbiology 08/03/22 15:00 Blood Culture (Wb) - Port Blood Culture - Preliminary No growth in 48 hours. 08/03/22 14:23 Blood Culture (Wb) - Port Blood Culture - Preliminary No growth in 48 hours. Physical Exam Const alert Constitutional Narrative: Nods and shakes head appropriately, more verbal today HEENT head/scalp atraumatic Eyes EOMs intact bilaterally Neck supple Resp normal respiratory effort and clear to auscultation bilaterally Cardio regular rate and regular rhythm GI soft to palpation, non-tender and non-distended Extremity Extremity Narrative: Moving all extremities, no edema Neuro Neuro Narrative: Shaking and nodding head appropriately, seems to be improving Psych Psych Narrative: Cooperative Assessment & Plan Assessment/Plan (1) Acute encephalopathy: PLAN: Plan The patient is a 67 y/o F w/ PMHx: Hx CVA, CKD stage III unclear subtype, HTN, HLD, Chronic anemia/Fe deficiency anemia, Anxiety and Depression, Multiple Sclerosis with chronic spurapubic catheter, cognitive impairment and functional paraplegia, recent discharge 07/28/22 following treatment Acute Klebsiella UTI in the setting of MS with cognitive impairment and functional paraplegia who now re-presents to the [facility] ED on 08/03/22 with history of last noted baseline at 2100 the evening prior however upon awakening spouse noticed that she was unable to speak with baseline stable debilities given significant underlying cognitive impairment as well as functional paraplegia. #Acute metabolic encephalopathy likely multiple etiologies Concern for UTI Has chronic suprapubic catheter (changed every 2 weeks, most recently 5 days prior to presentation) and was recently treated for acute Klebsiella UTI, UA in the ED concerning for repeat UTI Urine culture and blood cultures pending On IV fluids Continue IV Rocephin and vancomycin was ordered given her history of MRSA UTIs Pro-Carlos negative but given high suspicion we will continue antibiotics at this time PT/OT consult for discharge planning Of note given her altered mental status [facility] stroke team was contacted and it was felt that she was more likely encephalopathic and recommended admission and encephalopathy evaluation and treatment of UTI Brain MRI with chronic changes EEG nonspecific, will consult neurology Additionally could have a component of polypharmacy, will hold methylphenidate as it can lower the seizure threshold as well as we will hold amitriptyline and memantine and donepezil. 08/05/22: Improving, still likely multifactorial. Seems to have done well with discontinuation of several medicines. Unable to rule out urinary tract infection as a significant contributing factor, additionally with seizure-like activity unable to rule out postictal state when she arrived. Awaiting neurology input 08/06/2022: Does continue to improve on current antibiotics. Neurology evaluated yesterday and felt that it was reasonable to start her on antiepileptics and that she should follow-up outpatient for an ambulatory EEG with her neurologist. Urine culture pending. Additionally feeling polypharmacy may have been contributing. Additionally MRI on admission did not have any acute findings but did show chronic caudate infarct which was not noted on her last MRI in November. We will start statin #Presumed seizure disorder Neurology evaluated and reported based on witnessed activity and EEG results it was reasonable to load her with Keppra and begin 500 mg twice daily Recommended that she follow-up outpatient with her neurologist for an ambulatory EEG #Multiple Sclerosis with chronic suprapubic catheter, cognitive impairment and functional paraplegia Has difficulty maintaining hydration nutrition status at home Discussed PEG tube, she has had this before and had a suboptimal experience due to placement and it was removed We will continue to keep this avenue of discussion open as it may be the best option moving forward for both nutrition and hydration and to help prevent rehospitalization and improve quality of life 08/06/22: Will discuss with and patient again today about PEG tube, as she is improving seems like it is the most reasonable option moving forward to help maintain hydration and nutritional status to improve quality of life and potentially decrease risk of having to be readmitted to the hospital especially in light of need for liquid by teaspoon only, will be difficult to maintain adequate hydration this way. 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 # Anemia, macrocytic, new appearing on Chronic anemia Admission hemoglobin 11.8, MCV 99.2 however prior to this has been normocytic, prior hemoglobin 07/28/22 11.3 however prior to this patient had primarily been 10-13 range had seen, will obtain vitamin B12, folic acid, iron panel, ferritin be cautious as well as guaiac. We will continue iron supplementation. 08/04/2022: Iron panel within normal limits, ferritin high, B12 elevated and folic acid within normal limits as is TSH 08/05/2022: Continue to monitor, no evidence of bleeding at this time # Chronic Kidney Disease Stage III, unclear subtype (GFR consistent with this since at least 2019 labs reviewed): Admission BUN/Cr 22/1.47, baseline renal function appears primarily 1.1-1.4, 08/05/2022 continue to monitor BMP #8. Anxiety and depression: We will continue patient home mirtazapine #9. Hypertension: Noted in history, no longer on medications, will continue monitor and consider adding regimen if appropriate, as needed IV hydralazine in interim. #11. DVT prophylaxis: SCDs, Lovenox. Charges/Coding Visit Charges Inpatient E&M: 51276 Subs Hosp L2
[2022-08-06] MEDS: Bisacodyl 10 MG Suppository RC (09:34)
[2022-08-06] MEDS: Ceftriaxone 1 GM/50 ML BAG IV (09:38)
[2022-08-06] MEDS: Iron Polysaccharide Complex 150 MG CAPSULE PO (09:44)
[2022-08-06] MEDS: Loratadine 10 MG Tablet PO (09:44)
[2022-08-06] MEDS: Enoxaparin 40 MG/0.4 ML Syringe SC (09:44)
[2022-08-06] MEDS: Nystatin Powder 15gm Bottle 1 APPLIC TOPICAL ×2 (09:44→14:54)
[2022-08-06] MEDS: Cinacalcet HCl 30 MG Tablet PO (09:44)
[2022-08-06] MEDS: Vancomycin IV 1,000 MG/200 ML BAG 200 MG IV (15:39)
--- NOTE | 2022-08-06 17:05 | EX.PCM.CON.S ---
Assessment & Plan Assessment/Plan (1) Swallowing impaired: PLAN: This is a 67-year-old female with a complex past neurologic history inclusive of MS, prior CVA, AMS related to UTI, and now possible seizure activity who has demonstrated swallowing impairment. Patient's , who is primary caregiver, reports that this happens predictably whenever she goes through such an episode. Approximately 7 years ago patient had a PEG tube placed through the [facility] as a means of providing enteral nutrition while speech therapy worked with her to regain her swallow ability. Patient's reports that this tube was fraught with numerous complications related to its position directly beneath her left breast. He wishes to know if a new PEG tube is placed whether it is possible to avoid this situation. I have shared with him, that based on my independent review of patient's imaging (CT of the abdomen pelvis) from November 2020 that I am not sure this complication could be easily avoided. I walked him through the CT imaging showing the patient's rather cephalad position of the gastric body and the relationship to the overlying breast tissue. It is very clear from the imaging that by the time the overlying breast tissue is absent we are well within the region of the transverse colon. He questions whether or not it would be revelatory to update this imaging, but I offer that little is likely to change given that patient's prior PEG tube would have caused a pexy effect to the anterior abdominal wall and thereby fixating the stomach's position relative to the abdominal wall. I suggested the options include repeating the PEG tube and trying to prevent interference with the left breast through use of a different bra versus considering possible surgical gastrostomy (but I cautioned him that it would be impossible to prognosticate the success of such adventure given the certainty of adhesions from her prior PEG tube interventions), versus outside referral for consideration of a jejunostomy tube. At this time Mr. Cason states he wishes to see how his progresses through the treatments now being administered for probable seizure activity and would like to revisit this conversation after the weekend. I will therefore plan to check back early next week to assess interest for repeating the PEG tube. HPI Consult Data Date of Consult: 08/06/22 HPI Narrative HPI Narrative: KEN CASON, is a 67 F who presented to [facility] at the end of last month with signs of altered mental status. Notably she had been just previously discharged on 07/28/2022 following a stay occasioned by urinary tract infection. Given her altered mental status she was evaluated thoroughly for possible stroke versus progression of her known multiple sclerosis versus ongoing urinary tract infections versus other. Her who is present with her at bedside reports that there does seem to be activity consistent with silent seizures that may be at least in part to blame for her altered mental status and difficulty with expressing herself. However, along with her altered mental status patient has been unable to ingest food as she had prior to her admission. Her states that his is normally on a regular diet at home but faces setbacks whenever she gets admitted. Surgery is now asked to evaluate the patient for possible replacement PEG tube as patient risks significant dehydration and inability to receive her meds when these episodes occur. Mr. Cason provides the history given his 's relatively nonverbal state. He relates that his underwent PEG tube placement at the [facility] between 2014 and 2015. This occurred during a bout with urosepsis and altered mental status. He reports near constant difficulty with that tube as her overlying breasts interfered with its position and led to frequent leaking. He reports that the tube was displaced at 1 point and required revision. Both of these procedures were done endoscopically. He states thereafter his regained swallowing ability and the tube was removed given the trouble that it caused. Outside of the above, patient's only other prior surgical history is a suprapubic catheter placement. [facility] Medical History Alcohol use Allergic rhinitis Back pain Bilateral hydronephrosis Blackout Chronic constipation CKD (chronic kidney disease) stage 4, GFR 15-29 ml/min Complicated urinary tract infection Constipation Declining functional status Dental bridge present Depression Difficulty swallowing Endometrial thickening on ultrasound History of echocardiogram History of edema History of wrist fracture Hyperlipidemia Hypertension Indwelling urethral catheter present Insomnia Iron deficiency anemia Loss of hearing Low iron Migraine headache Migraine headache MRSA colonization Multiple sclerosis Multiple sclerosis Muscle spasm Neurogenic bladder Non-smoker OAB (overactive bladder) Pelvic pain Port-A-Cath in place Right hemiparesis Urinary tract infection Uses wheelchair Vitamin D deficiency Wears glasses Home Medications bisacodyl 10 mg rectal suppository 10 mg RECTAL DAILY constipation 07/01/18 [History Last Taken 11/24/21] acetaminophen 500 mg tablet 1,000 mg PO Q6H PRN PRN Pain 05/15/19 [History Last Taken 03/25/19] lactulose 20 gram/30 mL oral solution 60 gm PO QHS constipation 03/25/19 [History Last Taken 11/23/21] baclofen 20 mg tablet 20 mg PO TID MUSCLE 05/23/19 [History Last Taken 11/24/21] magnesium oxide 400 mg (241.3 mg magnesium) tablet 400 mg PO QHS magnesium supplement 05/23/19 [History Last Taken 11/23/21] melatonin 5 mg capsule 10 mg PO QHS sleep 05/23/19 [History Last Taken 11/23/21] polysaccharide iron complex 150 mg iron capsule 150 mg PO DAILY iron replacement 05/23/19 [History Last Taken 11/24/21] glucosamine AMw-P7-Crwdltywo zoey 1,500 mg-400 unit-100 mg tablet 1 tab PO DAILY supplement 11/15/20 [History Last Taken Unknown] krill 1,000 mg-omega-3 170 mg-dha 50 mg-epa 80 tw-hgykuk-jbdii capsule 1 ea PO BID supplement 11/15/20 [History Last Taken Unknown] mirtazapine 15 mg tablet 45 mg PO QHS 11/15/20 [History Last Taken 11/23/21] vitamin B complex-folic acid 0.4 mg tablet 1 tab PO DAILY vitamin 11/15/20 [History Last Taken 11/24/21] cholecalciferol (vitamin D3) 1,250 mcg (50,000 unit) capsule 50,000 unit PO QMONTH vitamin 08/15/21 [History Last Taken 2 Weeks Ago ~11/10/21] donepezil 10 mg tablet 10 mg PO QHS memory 08/15/21 [History Last Taken 11/23/21] methylphenidate HCl 10 mg tablet (Ritalin) 10 mg PO DAILY 08/15/21 [History Last Taken 11/24/21] tumeric 100 mg-tristian 150 mg-olive 50 mg-oreg 150 mg-caprylate capsule 2 cap PO BID supplement 08/15/21 [History Last Taken 11/23/21] cinacalcet 30 mg tablet 30 mg PO QODAY hyperparathyroidism 11/24/21 [History Last Taken 11/23/21] ywwfhmpy-htlqrvg-amvf-lutein tablet 1 tab PO DAILY SUPPLEMENT 11/24/21 [History Last Taken 11/23/21] nystatin 100,000 unit/mL oral suspension 500,000 unit (5 mL) PO 4X/DAY 5 days #100 mL 11/27/21 [Rx Last Taken Unknown] fexofenadine 180 mg tablet 180 mg PO DAILY 07/22/22 [History Last Taken Unknown] memantine 5 mg-10 mg tablets in a dose pack 10 tab PO BID 07/22/22 [History Last Taken Unknown] ondansetron 4 mg disintegrating tablet 4 mg PO Q8H PRN nausea and vomiting #10 tabs 07/22/22 [Rx Last Taken Unknown] amitriptyline 10 mg tablet 10 mg PO QHS 07/23/22 [History Last Taken Unknown] ascorbic acid (vitamin C) 1,000 mg tablet,extended release (Vitamin C ER) 1,000 mg PO BREAKFAST 07/23/22 [History Last Taken Unknown] food supplemt, lactose-reduced 0.08 gram-1.5 kcal/mL oral liquid 120 ml PO 4X/DAY #0 mL 07/28/22 [Rx Last Taken Unknown] methenamine hippurate 1 gram tablet 1 g PO BID 30 days #60 tabs 07/28/22 [Rx Last Taken Unknown] Allergy/AdvReac Type Severity Reaction Status Date / Time ciprofloxacin [From Cipro] AdvReac hypotension Verified 07/23/22 17:59 dextrose 5 % in water AdvReac Other Verified 07/23/22 17:59 [From Zyvox] doxycycline AdvReac hypotension Verified 07/23/22 17:59 levofloxacin [From Levaquin] AdvReac hypotension Verified 07/23/22 17:59 linezolid [From Zyvox] AdvReac Other Verified 07/23/22 17:59 morphine AdvReac hallucinati Verified 07/23/22 17:59 ons piperacillin [From Zosyn] AdvReac hypotension Verified 07/23/22 17:59 sulfamethoxazole AdvReac hypotension Verified 07/23/22 17:59 [From Bactrim] tazobactam [From Zosyn] AdvReac hypotension Verified 07/23/22 17:59 trimethoprim [From Bactrim] AdvReac hypotension Verified 07/23/22 17:59 vancomycin AdvReac developed Verified 07/23/22 17:59 toxic levels Family History Mother Osteoporosis Grandmother Breast cancer Surgical History H/O cervical polypectomy H/O dilation and curettage History of cystoscopy History of esophagogastroduodenoscopy (EGD) History of tonsillectomy and adenoidectomy History of tympanoplasty Hx of hand surgery Hx of shoulder surgery S/P laparoscopic procedure Social History household members: spouse housing: house Smoking Status: Never smoker alcohol intake: never substance use type: does not use what type of physical activity do you participate in: none seatbelt use: always do you feel safe at home: Yes 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 Scar from prior PEG tube site located just inferior and to the right of her xiphoid process. Abdomen is soft and does not appear tender with palpation Medical Records Data Medical Nutrition Assessment Dietitian: Malnutrition Criteria Met Start: 08/04/22 11:33 Freq: Status: Active Protocol: Document 08/04/22 11:33 (Rec: 08/04/22 11:33 [id number]) Nutrition Malnutrition Evidence of Malnutrition Exists Yes Malnutrition (moderate): Acute Illness/Injury Evidenced By Suboptimal Energy Intake ( Moderate),Weight Loss ( Moderate) Clinical Problem Acute Disease or Injury Related Malnutrition Etiology moderate, acute malnutrition related to inadequate energy intake Signs/Symptoms as evidenced by unintentional wt loss 1.8#/1.4% x 1 week; estimated energy intake meeting <75% of estimated energy needs. Status Active Problem Recommendation Dietitian Recommendations/Changes regular diet- texture/ consistency per DEPENDENCY COUNSELOR; ensure plus high protein 120mL 4x/day w/ medpass when diet advanced . Lab / Micro Data Result Diagrams: 08/06/22 05:04 08/06/22 05:04 Labs: Laboratory Results - last 24 hr 08/06/22 05:04: WBC 8.8, RBC 3.85 L, Hgb 12.4, Hct 37.6, MCV 97.7, MCH 32.2 H, MCHC 33.0, RDW Std Deviation 50.1 H, RDW Coeff of Niurka 13.9, Plt Count 178, MPV 10.3, Immature Gran % (Auto) 0.300, Neut % (Auto) 58.8, Lymph % (Auto) 24.6, Schleicher % (Auto) 7.9, Eos % (Auto) 7.6 H, Baso % (Auto) 0.8, Absolute Neuts (auto) 5.2, Absolute Lymphs (auto) 2.17, Nucleated RBC % 0 08/06/22 05:04: Sodium 145, Potassium 3.3 L, Chloride 113 H, Carbon Dioxide 27.0, Anion Gap 5, BUN 22 H, Creatinine 1.47 H, Estim Creat Clear Calc 35.41, Est GFR (MDRD) Af Amer 46 L, Est GFR (MDRD) Non-Af 38 L, BUN/Creatinine Ratio 15.0, Glucose 89, Calcium 9.3 Micro: Microbiology 08/03/22 12:20 Urine Catheter - Maldonado Urine Culture - Preliminary Charges/Coding Visit Charges Inpatient E&M: 07207 Init Hosp L2
[2022-08-06] MEDS: Atorvastatin Calcium 40 MG Tablet PO (22:22)
[2022-08-06] MEDS: Mirtazapine 15 MG Tablet 45 MG PO (22:22)
[2022-08-06] MEDS: Senna/Docusate Sodium 1 Tablet PO (22:22)
[2022-08-06] MEDS: MELATONIN 10 MG TABLET PO (22:22)
[2022-08-06] MEDS: Ensure Plus High Protein 120 ML LIQUID PO (22:46)
[2022-08-07] VITALS (14 sets, daily range): BP systolic 123–147; BP diastolic 69–86; PULSE 71–105; RESP 16–18; TEMP 36.5–36.8; O2SAT 91–98
[2022-08-07] MEDS: Lactated Ringers 1,000 ML 75 ML IV (04:21)
[2022-08-07 07:23] LABS: Absolute Neutrophil Count 10.2 X10^3/uL (2.0-7.7); Basophil# 0.06 X10^3/uL; Basophil% 0.4 % (0-1); Eosinophil# 0.67 X10^3/uL; Eosinophils% 4.7 % (0-5); Hematocrit 37.1 % (37-47); Hemoglobin 12.2 g/dL (12.0-15.0); Lymphocyte % 14.9 % (19-41); Mean Corp Hgb Conc 32.9 g/dL (32-36); Mean Corpuscular Hgb 31.8 pg (27.0-32.0); Mean Corpuscular Volume 96.6 fL (81-99); Mean Platelet Vol. 10.8 fl (6.2-12.0); Monocyte# 1.05 X10^3/uL; Monocyte% 7.4 % (0-10); NRBC Flagged by Analyzer 0 % (0-5); Neutrophil # 10.18 X10^3/uL (2.7-7.7); Neutrophil % 72.1 % (47-70); Platelet Count 150 K/mm3 (150-450); RBC Distribution Width SD 49.3 fl (35.1-43.9); Red Blood Count 3.84 M/mm3 (4.2-5.4); White Blood Count 14.1 K/mm3 (4.4-11.0)
[2022-08-07 07:58] LABS: Anion Gap 7 (5-15); BUN 16 mg/dL (7-18); BUN/Creat Ratio 12.1 RATIO (10-20); Calcium,Total 8.9 mg/dL (8.5-10.1); Chloride 111 mmol/L (98-107); Creatinine, Serum 1.32 mg/dL (0.55-1.02); EST Glomerular Filtration Rate 43 mL/min (>60); Est Glom Filt Rate - Afr Amer 52 mL/min (>60); Estimated Creatinine Clearance 44.72 ml/min; Glucose 92 mg/dL (74-106); Potassium 3.4 mmol/L (3.5-5.1); Sodium Level 145 mmol/L (136-145)
[2022-08-07] MEDS: Iron Polysaccharide Complex 150 MG CAPSULE PO (10:45)
[2022-08-07] MEDS: Loratadine 10 MG Tablet PO (10:45)
[2022-08-07] MEDS: Baclofen 10 MG Tablet 20 MG PO ×3 (10:45→21:06)
[2022-08-07] MEDS: NYSTATIN 500,000 UNIT/5 ML UDC 500000 UNIT PO (10:46)
[2022-08-07] MEDS: Nystatin Powder 15gm Bottle 1 APPLIC TOPICAL ×2 (10:47→21:06)
[2022-08-07] MEDS: Senna/Docusate Sodium 1 Tablet PO ×2 (10:47→21:07)
[2022-08-07] MEDS: Bisacodyl 10 MG Suppository RC (10:59)
--- NOTE | 2022-08-07 11:02 | PCM.PN.HOSP ---
Subjective Subjective DOS: 08/07/2022 CC: Follow up altered mental status Evaluated Ms. Sharp with her at bedside. Discussed PEG tube again and conversation with Dr. Zamarripa. Discussed plan moving forward and options to optimize when does chances of getting closer/back to baseline and that having a PEG tube placed so she can go home and work on getting stronger while maintaining her nutrition would likely be the best option with the ability of removing the PEG tube in the future when she is able to get closer to baseline and maintain nutrition and hydration. There was a concern about her feeling tired after breakfast and again feeling tired in the early afternoon. Discussed the baclofen, agreeable to try 10 in the morning, 10 in the afternoon and 20 at bedtime to see if this helps. Seems to be tolerating the Keppra at this time. No new reported seizure-like activity. Objective Data Objective Data Vital Signs: Vital Signs Temp Pulse Resp BP Pulse Ox O2 Del Method O2 Flow Rate 98.1 F 71 16 123/69 H 96 Nasal Cannula 2 08/07/22 04:21 08/07/22 07:00 08/07/22 04:21 08/07/22 04:21 08/07/22 07:13 08/07/22 07:25 08/07/22 07:25 Oxygen Flow Rate (L/min) 2 Oxygen Delivery Method Nasal Cannula Weight: 60 kg Body Mass Index (BMI) 18.2 Intake & Output: Intake and Output for Last 24 Hours 08/05/22 08/06/22 08/07/22 23:59 23:59 23:59 Intake Total 1673.33 / 1673.33 2773.75 / 2773.75 952.5 / 952.5 Output Total 1625 / 1625 1500 / 1500 300 / 300 Balance 48.33 / 48.33 1273.75 / 1273.75 652.5 / 652.5 Medical Nutrition Assessment Dietitian: Malnutrition Criteria Met Start: 08/04/22 11:33 Freq: Status: Active Protocol: Document 08/07/22 09:28 (Rec: 08/07/22 09:28 [id number]) Nutrition Malnutrition Evidence of Malnutrition Exists Yes Malnutrition (moderate): Acute Illness/Injury Evidenced By Suboptimal Energy Intake ( Moderate),Weight Loss ( Moderate) Clinical Problem Acute Disease or Injury Related Malnutrition Etiology moderate, acute malnutrition related to inadequate energy intake Signs/Symptoms as evidenced by unintentional wt loss 1.8#/1.4% x 1 week; estimated energy intake meeting <75% of estimated energy needs. Status Active Problem Recommendation Dietitian Recommendations/Changes regular diet- texture/ consistency per VICE PRESIDENT OF COMMUNICATIONS; ensure plus high protein 120mL 4x/day w/ medpass and 2 ensure puddings w/ meals for additional calories/protein if consumed Lab / Micro Data Result Diagrams: 08/07/22 06:01 08/07/22 06:01 Labs: Laboratory Results - last 24 hr 08/07/22 06:01: WBC 14.1 H, RBC 3.84 L, Hgb 12.2, Hct 37.1, MCV 96.6, MCH 31.8, MCHC 32.9, RDW Std Deviation 49.3 H, RDW Coeff of Niurka 14.0, Plt Count 150, MPV 10.8, Immature Gran % (Auto) 0.500, Neut % (Auto) 72.1 H, Lymph % (Auto) 14.9 L, [place] % (Auto) 7.4, Eos % (Auto) 4.7, Baso % (Auto) 0.4, Absolute Neuts (auto) 10.2 H, Absolute Lymphs (auto) 2.10, Nucleated RBC % 0 08/07/22 06:01: Sodium 145, Potassium 3.4 L, Chloride 111 H, Carbon Dioxide 27.0, Anion Gap 7, BUN 16, Creatinine 1.32 H, Estim Creat Clear Calc 44.72, Est GFR (MDRD) Af Amer 52 L, Est GFR (MDRD) Non-Af 43 L, BUN/Creatinine Ratio 12.1, Glucose 92, Calcium 8.9 Micro: Microbiology 08/03/22 12:20 Urine Catheter - Maldonado Urine Culture - Preliminary 08/03/22 15:00 Blood Culture (Wb) - Port Blood Culture - Preliminary No growth in 48 hours. 08/03/22 14:23 Blood Culture (Wb) - Port Blood Culture - Preliminary No growth in 48 hours. Physical Exam Const alert Constitutional Narrative: Appears somewhat more tired today, still answering appropriately though began falling asleep towards the end of our, station HEENT head/scalp atraumatic Eyes Eyes Narrative: Extraocular movements grossly intact Neck supple Resp normal respiratory effort and clear to auscultation bilaterally Cardio regular rate and regular rhythm GI soft to palpation, non-tender and non-distended GI Narrative: , Positive bowel sounds Extremity Extremity Narrative: Moving all extremities, no edema Neuro Neuro Narrative: Shaking and nodding head appropriately, slightly tired but does not seem to be confused Psych Psych Narrative: Cooperative Assessment & Plan Assessment/Plan (1) Acute encephalopathy: PLAN: Plan The patient is a 67 y/o F w/ PMHx: Hx CVA, CKD stage III unclear subtype, HTN, HLD, Chronic anemia/Fe deficiency anemia, Anxiety and Depression, Multiple Sclerosis with chronic spurapubic catheter, cognitive impairment and functional paraplegia, recent discharge 07/28/22 following treatment Acute Klebsiella UTI in the setting of MS with cognitive impairment and functional paraplegia who now re-presents to the [facility] ED on 08/03/22 with history of last noted baseline at 2100 the evening prior however upon awakening spouse noticed that she was unable to speak with baseline stable debilities given significant underlying cognitive impairment as well as functional paraplegia. #Acute metabolic encephalopathy likely multiple etiologies Concern for UTI Has chronic suprapubic catheter (changed every 2 weeks, most recently 5 days prior to presentation) and was recently treated for acute Klebsiella UTI, UA in the ED concerning for repeat UTI Urine culture and blood cultures pending On IV fluids Continue IV Rocephin and vancomycin was ordered given her history of MRSA UTIs Pro-Carlos negative but given high suspicion we will continue antibiotics at this time PT/OT consult for discharge planning Of note given her altered mental status [facility] stroke team was contacted and it was felt that she was more likely encephalopathic and recommended admission and encephalopathy evaluation and treatment of UTI Brain MRI with chronic changes EEG nonspecific, will consult neurology Additionally could have a component of polypharmacy, will hold methylphenidate as it can lower the seizure threshold as well as we will hold amitriptyline and memantine and donepezil. 08/05/22: Improving, still likely multifactorial. Seems to have done well with discontinuation of several medicines. Unable to rule out urinary tract infection as a significant contributing factor, additionally with seizure-like activity unable to rule out postictal state when she arrived. Awaiting neurology input 08/06/2022: Does continue to improve on current antibiotics. Neurology evaluated yesterday and felt that it was reasonable to start her on antiepileptics and that she should follow-up outpatient for an ambulatory EEG with her neurologist. Urine culture pending. Additionally feeling polypharmacy may have been contributing. Additionally MRI on admission did not have any acute findings but did show chronic caudate infarct which was not noted on her last MRI in November. We will start statin 08/07/2022: Somewhat more tired today but still answering questions appropriately does not appear overtly confused. Could be possibly deconditioning given recent illness plus medication. We will decrease baclofen dose at breakfast and lunch and keep nighttime at 20 mg, discussed with Ching and her . #Presumed seizure disorder Neurology evaluated and reported based on witnessed activity and EEG results it was reasonable to load her with Keppra and begin 500 mg twice daily Recommended that she follow-up outpatient with her neurologist for an ambulatory EEG #Multiple Sclerosis with chronic suprapubic catheter, cognitive impairment and functional paraplegia Has difficulty maintaining hydration nutrition status at home Discussed PEG tube, she has had this before and had a suboptimal experience due to placement and it was removed We will continue to keep this avenue of discussion open as it may be the best option moving forward for both nutrition and hydration and to help prevent rehospitalization and improve quality of life 08/06/22: Will discuss with and patient again today about PEG tube, as she is improving seems like it is the most reasonable option moving forward to help maintain hydration and nutritional status to improve quality of life and potentially decrease risk of having to be readmitted to the hospital especially in light of need for liquid by teaspoon only, will be difficult to maintain adequate hydration this way. 08/07/2022: Spoke with Ms. Sharp and her at length about plan to optimize functional status and quality of life while she is improving and working towards getting back to baseline. Ultimately agreeable for PEG tube placement on Wednesday. We will continue to optimize over the weekend. N.p.o. 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 # Anemia, macrocytic, new appearing on Chronic anemia Admission hemoglobin 11.8, MCV 99.2 however prior to this has been normocytic, prior hemoglobin 07/28/22 11.3 however prior to this patient had primarily been 10-13 range had seen, will obtain vitamin B12, folic acid, iron panel, ferritin be cautious as well as guaiac. We will continue iron supplementation. 08/04/2022: Iron panel within normal limits, ferritin high, B12 elevated and folic acid within normal limits as is TSH 08/05/2022: Continue to monitor, no evidence of bleeding at this time # Chronic Kidney Disease Stage III, unclear subtype (GFR consistent with this since at least 2019 labs reviewed): Admission BUN/Cr 25/10.47, baseline renal function appears primarily 1.1-1.4, 08/05/2022 continue to monitor BMP #8. Anxiety and depression: We will continue patient home mirtazapine #9. Hypertension: Noted in history, no longer on medications, will continue monitor and consider adding regimen if appropriate, as needed IV hydralazine in interim. #11. DVT prophylaxis: SCDs, Lovenox. Charges/Coding Visit Charges Inpatient E&M: 83721 Subs Hosp L2
[2022-08-07] MEDS: Ceftriaxone 1 GM/50 ML BAG IV (11:19)
--- NOTE | 2022-08-07 15:42 | PCM.PN.BLA ---
Progress Note Patient briefly evaluated during p.m. rounds after primary alerted me to decision from the family to proceed with PEG tube. I present at bedside and discussed plans to proceed with PEG tube placement early afternoon on 08/10/2022. I reviewed the procedure and described limitations on where the tube exit site ultimately may end up as they relate to safety with endoscopic procedures. Patient's expressed appreciation for this explanation and a readiness to proceed, Wednesday afternoon. Patient should be held n.p.o. past midnight Wednesday in anticipation of this procedure.
[2022-08-07] MEDS: Fleet Enema 1 ML RC (16:37)
[2022-08-07 16:58] LABS: Vancomycin, Trough Level 19.6 ug/mL (5.0-15.0)
--- NOTE | 2022-08-07 17:15 | PCM.RX.CS ---
Consult Pharmacy has been consulted to manage selected antiobiotic: Vancomycin Type of Consult: Follow-up Labs: Sodium 145 mmol/L (136-145) 08/07/22 06:01 Potassium 3.4 mmol/L (3.5-5.1) L 08/07/22 06:01 Chloride 111 mmol/L (98-107) H 08/07/22 06:01 Carbon Dioxide 27.0 mmol/L (21.0-32.0) 08/07/22 06:01 Anion Gap 7 (5-15) 08/07/22 06:01 BUN 16 mg/dL (7-18) 08/07/22 06:01 Creatinine 1.32 mg/dL (0.55-1.02) H 08/07/22 06:01 Est GFR (MDRD) Af Amer 52 mL/min (>60) L 08/07/22 06:01 Est GFR (MDRD) Non-Af 43 mL/min (>60) L 08/07/22 06:01 BUN/Creatinine Ratio 12.1 RATIO (10-20) 08/07/22 06:01 Glucose 92 mg/dL (74-106) 08/07/22 06:01 Vancomycin Trough 19.6 ug/mL (5.0-15.0) H 08/07/22 15:55 Microbiology: Microbiology 08/03/22 12:20 Urine Catheter - Maldonado Urine Culture - Preliminary Yeast Like Organism 08/03/22 15:00 Blood Culture (Wb) - Port Blood Culture - Preliminary No growth in 48 hours. 08/03/22 14:23 Blood Culture (Wb) - Port Blood Culture - Preliminary No growth in 48 hours. Goal Trough: 15-20 mcg/mL Pharmacy Plan for Drug Dosing: VANCOMYCIN LEVEL RECEIVED Current Vancomycin Dose: 1000MG Q24H Number of Doses Received: 4 Vancomycin Level: 19.6 MG/DL Hours Since Last Dose: 24 Renal Function: SCR 1.32, CRCL 44 ML/MIN Renal Function Trend: STABLE Lab/Micro: URINE CX PRELIMINARY YEAST LIKE ORGANISM Vancomycin Plan/Comments: 24 HOUR TROUGH IS WITHIN THERAPEUTIC RANGE OF 15-20MG/DL. WILL CONTINUE CURRENT DOSING AND GET A TROUGH IN 2 DAYS SINCE IT IS ON THE HIGHER END OF THERAPEUTIC RANGE. Pending Level: 08/09/22 @ 1530 Pharmacy Service will continue to monitor and adjust dosing as required.
[2022-08-07] MEDS: Mirtazapine 15 MG Tablet 45 MG PO (21:06)
[2022-08-07] MEDS: Atorvastatin Calcium 40 MG Tablet PO (21:07)
[2022-08-07] MEDS: MELATONIN 10 MG TABLET PO (21:07)
[2022-08-07] MEDS: 0.9% Saline Lock 10 ML Syringe IV (22:44)
[2022-08-07] MEDS: Vancomycin IV 1,000 MG/200 ML BAG 200 MG IV (23:24)
[2022-08-08] VITALS (13 sets, daily range): BP systolic 118–128; BP diastolic 68–75; PULSE 63–75; RESP 16–18; TEMP 36.1–36.8; O2SAT 96–100
[2022-08-08] MEDS: Lactated Ringers 1,000 ML 75 ML IV ×2 (02:23→16:00)
[2022-08-08 07:51] LABS: Absolute Lymphocyte Count 2.47 X10^3/uL (0.83-4.51); Basophil# 0.07 X10^3/uL; Basophil% 0.6 % (0-1); Eosinophil# 0.75 X10^3/uL; Eosinophils% 6.7 % (0-5); Hematocrit 35.1 % (37-47); Hemoglobin 11.6 g/dL (12.0-15.0); Lymphocyte # 2.47 X10^3/ul (0.83-4.51); Lymphocyte % 22.2 % (19-41); Monocyte# 0.83 X10^3/uL; Monocyte% 7.5 % (0-10); NRBC Flagged by Analyzer 0 % (0-5); Neutrophil # 6.98 X10^3/uL (2.7-7.7); Neutrophil % 62.6 % (47-70); Platelet Count 144 K/mm3 (150-450); RBC Distribution Width CV 13.9 % (11.6-14.6); RBC Distribution Width SD 49.1 fl (35.1-43.9); Red Blood Count 3.62 M/mm3 (4.2-5.4); White Blood Count 11.1 K/mm3 (4.4-11.0)
[2022-08-08 08:07] LABS: Anion Gap 5 (5-15); BUN 15 mg/dL (7-18); BUN/Creat Ratio 12.6 RATIO (10-20); Calcium,Total 8.7 mg/dL (8.5-10.1); Chloride 109 mmol/L (98-107); Creatinine, Serum 1.19 mg/dL (0.55-1.02); EST Glomerular Filtration Rate 48 mL/min (>60); Est Glom Filt Rate - Afr Amer 58 mL/min (>60); Estimated Creatinine Clearance 45.26 ml/min; Glucose 92 mg/dL (74-106); Potassium 3.8 mmol/L (3.5-5.1); Sodium Level 142 mmol/L (136-145)
[2022-08-08] MEDS: Cinacalcet HCl 30 MG Tablet PO (08:51)
[2022-08-08] MEDS: Senna/Docusate Sodium 1 Tablet PO ×2 (08:51→21:02)
[2022-08-08] MEDS: Iron Polysaccharide Complex 150 MG CAPSULE PO (08:51)
[2022-08-08] MEDS: Ceftriaxone 1 GM/50 ML BAG IV (08:51)
[2022-08-08] MEDS: Loratadine 10 MG Tablet PO (08:51)
[2022-08-08] MEDS: Bisacodyl 10 MG Suppository RC (08:52)
[2022-08-08] MEDS: Nystatin Powder 15gm Bottle 1 APPLIC TOPICAL ×2 (08:52→21:03)
[2022-08-08] MEDS: Baclofen 10 MG Tablet PO ×2 (08:54→11:40)
--- NOTE | 2022-08-08 09:51 | PCM.PN.HOSP ---
Subjective Subjective DOS: 08/08/2022 CC: Tired this morning Sleeping soundly, did wake up and follow commands but fell back asleep quickly Objective Data Objective Data Vital Signs: Vital Signs Temp Pulse Resp BP Pulse Ox O2 Del Method O2 Flow Rate 97.7 F L 63 16 118/74 97 Nasal Cannula 2 08/08/22 04:29 08/08/22 07:00 08/08/22 04:29 08/08/22 04:29 08/08/22 08:14 08/08/22 08:14 08/08/22 08:14 Oxygen Flow Rate (L/min) 2 Oxygen Delivery Method Nasal Cannula Weight: 62.5 kg Body Mass Index (BMI) 18.2 Intake & Output: Intake and Output for Last 24 Hours 08/06/22 08/07/22 08/08/22 23:59 23:59 23:59 Intake Total 2773.75 / 2773.75 2617.45 / 2617.45 391.25 / 391.25 Output Total 1500 / 1500 2100 / 2100 350 / 350 Balance 1273.75 / 1273.75 517.45 / 517.45 41.25 / 41.25 Medical Nutrition Assessment Dietitian: Malnutrition Criteria Met Start: 08/04/22 11:33 Freq: Status: Active Protocol: Document 08/07/22 09:28 (Rec: 08/07/22 09:28 [id number]) Nutrition Malnutrition Evidence of Malnutrition Exists Yes Malnutrition (moderate): Acute Illness/Injury Evidenced By Suboptimal Energy Intake ( Moderate),Weight Loss ( Moderate) Clinical Problem Acute Disease or Injury Related Malnutrition Etiology moderate, acute malnutrition related to inadequate energy intake Signs/Symptoms as evidenced by unintentional wt loss 1.8#/1.4% x 1 week; estimated energy intake meeting <75% of estimated energy needs. Status Active Problem Recommendation Dietitian Recommendations/Changes regular diet- texture/ consistency per WHEEL ALIGNMENT TECHNICIAN; ensure plus high protein 120mL 4x/day w/ medpass and 2 ensure puddings w/ meals for additional calories/protein if consumed Lab / Micro Data Result Diagrams: 08/08/22 06:22 08/08/22 06:22 Labs: Laboratory Results - last 24 hr 08/07/22 15:55: Vancomycin Trough 19.6 H 08/08/22 06:22: WBC 11.1 H, RBC 3.62 L, Hgb 11.6 L, Hct 35.1 L, MCV 97.0, MCH 32.0, MCHC 33.0, RDW Std Deviation 49.1 H, RDW Coeff of Niurka 13.9, Plt Count 144 L, MPV 11.0, Immature Gran % (Auto) 0.400, Neut % (Auto) 62.6, Lymph % (Auto) 22.2, [place] % (Auto) 7.5, Eos % (Auto) 6.7 H, Baso % (Auto) 0.6, Absolute Neuts (auto) 7.0, Absolute Lymphs (auto) 2.47, Nucleated RBC % 0 08/08/22 06:22: Sodium 142, Potassium 3.8, Chloride 109 H, Carbon Dioxide 28.0, Anion Gap 5, BUN 15, Creatinine 1.19 H, Estim Creat Clear Calc 45.26, Est GFR (MDRD) Af Amer 58 L, Est GFR (MDRD) Non-Af 48 L, BUN/Creatinine Ratio 12.6, Glucose 92, Calcium 8.7 Micro: Microbiology 08/03/22 12:20 Urine Catheter - Maldonado Urine Culture - Preliminary Yeast Like Organism 08/03/22 15:00 Blood Culture (Wb) - Port Blood Culture - Preliminary No growth in 48 hours. 08/03/22 14:23 Blood Culture (Wb) - Port Blood Culture - Preliminary No growth in 48 hours. Physical Exam Const Constitutional Narrative: Sleep comfortably easy to wake up but went back to sleep HEENT head/scalp atraumatic Eyes Eyes Narrative: Opened eyes to voice and stimulation Neck supple Resp normal respiratory effort Cardio regular rate and regular rhythm GI non-distended Extremity Extremity Narrative: No edema appreciated Neuro Neuro Narrative: Tired but wakes up and follows commands Psych Psych Narrative: Cooperative Assessment & Plan Assessment/Plan (1) Acute encephalopathy: PLAN: Plan The patient is a 67 y/o F w/ PMHx: Hx CVA, CKD stage III unclear subtype, HTN, HLD, Chronic anemia/Fe deficiency anemia, Anxiety and Depression, Multiple Sclerosis with chronic spurapubic catheter, cognitive impairment and functional paraplegia, recent discharge 07/28/22 following treatment Acute Klebsiella UTI in the setting of MS with cognitive impairment and functional paraplegia who now re-presents to the [facility] ED on 08/03/22 with history of last noted baseline at 2100 the evening prior however upon awakening spouse noticed that she was unable to speak with baseline stable debilities given significant underlying cognitive impairment as well as functional paraplegia. #Acute metabolic encephalopathy likely multiple etiologies Concern for UTI Has chronic suprapubic catheter (changed every 2 weeks, most recently 5 days prior to presentation) and was recently treated for acute Klebsiella UTI, UA in the ED concerning for repeat UTI Urine culture and blood cultures pending On IV fluids Continue IV Rocephin and vancomycin was ordered given her history of MRSA UTIs Pro-Carlos negative but given high suspicion we will continue antibiotics at this time PT/OT consult for discharge planning Of note given her altered mental status [facility] stroke team was contacted and it was felt that she was more likely encephalopathic and recommended admission and encephalopathy evaluation and treatment of UTI Brain MRI with chronic changes EEG nonspecific, will consult neurology Additionally could have a component of polypharmacy, will hold methylphenidate as it can lower the seizure threshold as well as we will hold amitriptyline and memantine and donepezil. 08/05/22: Improving, still likely multifactorial. Seems to have done well with discontinuation of several medicines. Unable to rule out urinary tract infection as a significant contributing factor, additionally with seizure-like activity unable to rule out postictal state when she arrived. Awaiting neurology input 08/06/2022: Does continue to improve on current antibiotics. Neurology evaluated yesterday and felt that it was reasonable to start her on antiepileptics and that she should follow-up outpatient for an ambulatory EEG with her neurologist. Urine culture pending. Additionally feeling polypharmacy may have been contributing. Additionally MRI on admission did not have any acute findings but did show chronic caudate infarct which was not noted on her last MRI in November. We will start statin 08/07/2022: Somewhat more tired today but still answering questions appropriately does not appear overtly confused. Could be possibly deconditioning given recent illness plus medication. We will decrease baclofen dose at breakfast and lunch and keep nighttime at 20 mg, discussed with Ching and her . 08/08/2022: Does seem tired this morning but wakes up and follows commands. Overall has moved in the right direction however #Presumed seizure disorder Neurology evaluated and reported based on witnessed activity and EEG results it was reasonable to load her with Keppra and begin 500 mg twice daily Recommended that she follow-up outpatient with her neurologist for an ambulatory EEG 08/08: No further seizure-like activity appreciated, continue Mirta #Multiple Sclerosis with chronic suprapubic catheter, cognitive impairment and functional paraplegia Has difficulty maintaining hydration nutrition status at home Discussed PEG tube, she has had this before and had a suboptimal experience due to placement and it was removed We will continue to keep this avenue of discussion open as it may be the best option moving forward for both nutrition and hydration and to help prevent rehospitalization and improve quality of life 08/06/22: Will discuss with and patient again today about PEG tube, as she is improving seems like it is the most reasonable option moving forward to help maintain hydration and nutritional status to improve quality of life and potentially decrease risk of having to be readmitted to the hospital especially in light of need for liquid by teaspoon only, will be difficult to maintain adequate hydration this way. 08/07/2022: Spoke with Ms. Sharp and her at length about plan to optimize functional status and quality of life while she is improving and working towards getting back to baseline. Ultimately agreeable for PEG tube placement on Wednesday. We will continue to optimize over the weekend. N.p.o. at midnight on Wednesday08/08/2022: PEG tube on Wednesday so she is able to maintain hydration and nutrition while at home. Feel being at home is the best option to optimize functional status and give best chance of recovery but without PEG tube unable to maintain hydration and nutrition until closer to baseline. 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 # Anemia, macrocytic, new appearing on Chronic anemia Admission hemoglobin 11.8, MCV 99.2 however prior to this has been normocytic, prior hemoglobin 07/28/22 11.3 however prior to this patient had primarily been 10-13 range had seen, will obtain vitamin B12, folic acid, iron panel, ferritin be cautious as well as guaiac. We will continue iron supplementation. 08/04/2022: Iron panel within normal limits, ferritin high, B12 elevated and folic acid within normal limits as is TSH 08/05/2022: Continue to monitor, no evidence of bleeding at this time # Chronic Kidney Disease Stage III, unclear subtype (GFR consistent with this since at least 2019 labs reviewed): Admission BUN/Cr 25/10.47, baseline renal function appears primarily 1.1-1.4, 08/05/2022 continue to monitor BMP # Hypertension: Noted in history, no longer on medications, will continue monitor and consider adding regimen if appropriate, as needed IV hydralazine in interim. #11. DVT prophylaxis: SCDs, Lovenox. Charges/Coding Visit Charges Inpatient E&M: 61632 Subs Hosp L2
[2022-08-08] MEDS: Baclofen 10 MG Tablet 20 MG PO (21:02)
[2022-08-08] MEDS: Atorvastatin Calcium 40 MG Tablet PO (21:02)
[2022-08-08] MEDS: MELATONIN 10 MG TABLET PO (21:03)
[2022-08-08] MEDS: Mirtazapine 15 MG Tablet 45 MG PO (21:03)
[2022-08-08] MEDS: Potassium Chloride Oral Tablet 20 MEQ 40 MEQ PO (21:54)
[2022-08-08 22:43] LABS: Magnesium 1.5 mg/dL (1.6-2.6)
[2022-08-08] MEDS: Vancomycin IV 1,000 MG/200 ML BAG 200 MG IV (23:21)
[2022-08-09] VITALS (11 sets, daily range): BP systolic 108–148; BP diastolic 69–92; PULSE 68–94; RESP 18; TEMP 36.2–36.8; O2SAT 92–97
[2022-08-09] MEDS: Lactated Ringers 1,000 ML 75 ML IV ×2 (03:42→17:07)
[2022-08-09 07:49] LABS: Absolute Lymphocyte Count 2.42 X10^3/uL (0.83-4.51); Absolute Neutrophil Count 5.8 X10^3/uL (2.0-7.7); Basophil# 0.06 X10^3/uL; Basophil% 0.6 % (0-1); Eosinophil# 0.78 X10^3/uL; Hematocrit 37.4 % (37-47); Hemoglobin 11.7 g/dL (12.0-15.0); Lymphocyte # 2.42 X10^3/ul (0.83-4.51); Lymphocyte % 24.8 % (19-41); Mean Corp Hgb Conc 31.3 g/dL (32-36); Mean Corpuscular Volume 98.9 fL (81-99); Mean Platelet Vol. 11.1 fl (6.2-12.0); Monocyte% 7.2 % (0-10); NRBC Flagged by Analyzer 0 % (0-5); Neutrophil # 5.77 X10^3/uL (2.7-7.7); Platelet Count 170 K/mm3 (150-450); RBC Distribution Width CV 13.5 % (11.6-14.6); Red Blood Count 3.78 M/mm3 (4.2-5.4); White Blood Count 9.8 K/mm3 (4.4-11.0)
[2022-08-09 07:58] LABS: Anion Gap 6 (5-15); BUN 15 mg/dL (7-18); BUN/Creat Ratio 11.7 RATIO (10-20); Calcium,Total 8.7 mg/dL (8.5-10.1); Chloride 107 mmol/L (98-107); Creatinine, Serum 1.28 mg/dL (0.55-1.02); EST Glomerular Filtration Rate 44 mL/min (>60); Est Glom Filt Rate - Afr Amer 53 mL/min (>60); Estimated Creatinine Clearance 41.81 ml/min; Glucose 84 mg/dL (74-106); Potassium 4.3 mmol/L (3.5-5.1); Sodium Level 144 mmol/L (136-145)
[2022-08-09] MEDS: Baclofen 10 MG Tablet PO ×2 (08:59→11:06)
[2022-08-09] MEDS: Iron Polysaccharide Complex 150 MG CAPSULE PO (08:59)
[2022-08-09] MEDS: ARIPiprazole 2 MG Tablet PO (09:00)
[2022-08-09] MEDS: Senna/Docusate Sodium 1 Tablet PO ×2 (09:00→21:03)
[2022-08-09] MEDS: Bisacodyl 10 MG Suppository RC (09:00)
[2022-08-09] MEDS: Ceftriaxone 1 GM/50 ML BAG IV (09:00)
[2022-08-09] MEDS: Loratadine 10 MG Tablet PO (09:00)
[2022-08-09] MEDS: Nystatin Powder 15gm Bottle 1 APPLIC TOPICAL ×2 (09:01→21:09)
--- NOTE | 2022-08-09 19:33 | PN.HOSP_ITS ---
Subjective Subjective DOS: 08/09/2022 CC: PEG placement tomorrow Doing better today than yesterday, more alert. For PEG placement tomorrow. Objective Data Objective Data Vital Signs: Vital Signs Temp Pulse Resp BP Pulse Ox O2 Del Method O2 Flow Rate 98.1 F 80 18 116/74 93 Room Air 2 08/09/22 15:35 08/09/22 15:35 08/09/22 15:35 08/09/22 15:35 08/09/22 15:35 08/09/22 15:35 08/09/22 15:35 Oxygen Flow Rate (L/min) 2 Oxygen Delivery Method Room Air Weight: 62.1 kg Body Mass Index (BMI) 18.2 Intake & Output: Intake and Output for Last 24 Hours 08/07/22 08/08/22 08/09/22 23:59 23:59 22:59 Intake Total 2617.45 / 2617.45 2251.25 / 2251.25 2547.5 / 2547.5 Output Total 2100 / 2099 1650 / 0 2425 / 2425 Balance 517.45 / 517.45 601.25 / 201.25 122.5 / 122.5 Medical Nutrition Assessment Dietitian: Malnutrition Criteria Met Start: 08/04/22 11:33 Freq: Status: Active Protocol: Document 08/07/22 09:28 (Rec: 08/07/22 09:28 [id number]) Nutrition Malnutrition Evidence of Malnutrition Exists Yes Malnutrition (moderate): Acute Illness/Injury Evidenced By Suboptimal Energy Intake ( Moderate),Weight Loss ( Moderate) Clinical Problem Acute Disease or Injury Related Malnutrition Etiology moderate, acute malnutrition related to inadequate energy intake Signs/Symptoms as evidenced by unintentional wt loss 1.8#/1.4% x 1 week; estimated energy intake meeting <75% of estimated energy needs. Status Active Problem Recommendation Dietitian Recommendations/Changes regular diet- texture/ consistency per AUTOMOTIVE MECHANICAL ENGINEER; ensure plus high protein 120mL 4x/day w/ medpass and 2 ensure puddings w/ meals for additional calories/protein if consumed Lab / Micro Data Result Diagrams: 08/09/22 07:00 08/09/22 07:00 Labs: Laboratory Results - last 24 hr 08/08/22 22:01: Magnesium 1.5 L 08/09/22 07:00: WBC 9.8, RBC 3.78 L, Hgb 11.7 L, Hct 37.4, MCV 98.9, MCH 31.0, MCHC 31.3 L D, RDW Std Deviation 49.0 H, RDW Coeff of Niurka 13.5, Plt Count 170, MPV 11.1, Immature Gran % (Auto) 0.400, Neut % (Auto) 59.0, Lymph % (Auto) 24.8, [place] % (Auto) 7.2, Eos % (Auto) 8.0 H, Baso % (Auto) 0.6, Absolute Neuts (auto) 5.8, Absolute Lymphs (auto) 2.42, Nucleated RBC % 0 08/09/22 07:00: Sodium 144, Potassium 4.3, Chloride 107, Carbon Dioxide 31.0, Anion Gap 6, BUN 15, Creatinine 1.28 H, Estim Creat Clear Calc 41.81, Est GFR (MDRD) Af Amer 53 L, Est GFR (MDRD) Non-Af 44 L, BUN/Creatinine Ratio 11.7, Glucose 84, Calcium 8.7 Micro: Microbiology 08/03/22 12:20 Urine Catheter - Maldonado Urine Culture - Final Jackelyn albicans 08/03/22 14:23 Blood Culture (Wb) - Port Blood Culture - Final No growth in 5 days. 08/03/22 15:00 Blood Culture (Wb) - Port Blood Culture - Final No growth in 5 days. Physical Exam Const Constitutional Narrative: More awake and alert HEENT head/scalp atraumatic Eyes Eyes Narrative: Extraocular movements grossly intact Neck supple Resp normal respiratory effort Cardio regular rate and regular rhythm GI non-distended Extremity Extremity Narrative: No edema appreciated Neuro Neuro Narrative: Tired but wakes up and follows commands Psych Psych Narrative: Cooperative Assessment & Plan Assessment/Plan (1) Acute encephalopathy: PLAN: Plan The patient is a 67 y/o F w/ PMHx: Hx CVA, CKD stage III unclear subtype, HTN, HLD, Chronic anemia/Fe deficiency anemia, Anxiety and Depression, Multiple Sclerosis with chronic spurapubic catheter, cognitive impairment and functional paraplegia, recent discharge 07/28/22 following treatment Acute Klebsiella UTI in the setting of MS with cognitive impairment and functional paraplegia who now re-presents to the [facility] ED on 08/03/22 with history of last noted baseline at 21 00 the evening prior however upon awakening spouse noticed that she was unable to speak with baseline stable debilities given significant underlying cognitive impairment as well as functional paraplegia. #Acute metabolic encephalopathy likely multiple etiologies Concern for UTI Has chronic suprapubic catheter (changed every 2 weeks, most recently 5 days prior to presentation) and was recently treated for acute Klebsiella UTI, UA in the ED concerning for repeat UTI Urine culture and blood cultures pending On IV fluids Continue IV Rocephin and vancomycin was ordered given her history of MRSA UTIs Pro-Carlos negative but given high suspicion we will continue antibiotics at this time PT/OT consult for discharge planning Of note given her altered mental status [facility] stroke team was contacted and it was felt that she was more likely encephalopathic and recommended admission and encephalopathy evaluation and treatment of UTI Brain MRI with chronic changes EEG nonspecific, will consult neurology Additionally could have a component of polypharmacy, will hold methylphenidate as it can lower the seizure threshold as well as we will hold amitriptyline and memantine and donepezil. 08/05/22: Improving, still likely multifactorial. Seems to have done well with discontinuation of several medicines. Unable to rule out urinary tract infection as a significant contributing factor, additionally with seizure-like activity unable to rule out postictal state when she arrived. Awaiting neurology input 08/06/2022: Does continue to improve on current antibiotics. Neurology evaluated yesterday and felt that it was reasonable to start her on antiepileptics and that she should follow-up outpatient for an ambulatory EEG with her neurologist. Urine culture pending. Additionally feeling polypharmacy may have been contributing. Additionally MRI on admission did not have any acute findings but did show chronic caudate infarct which was not noted on her last MRI in November. We will start statin 08/07/2022: Somewhat more tired today but still answering questions appropriately does not appear overtly confused. Could be possibly deconditioning given recent illness plus medication. We will decrease baclofen dose at breakfast and lunch and keep nighttime at 20 mg, discussed with Ching and her . 08/08/2022: Does seem tired this morning but wakes up and follows commands. Overall has moved in the right direction however 08/09: Seems to have done much better on the Abilify. Continue Keppra. For PEG tube tomorrow #Presumed seizure disorder Neurology evaluated and reported based on witnessed activity and EEG results it was reasonable to load her with Keppra and begin 500 mg twice daily Recommended that she follow-up outpatient with her neurologist for an ambulatory EEG 08/08: No further seizure-like activity appreciated, continue Keppra #Multiple Sclerosis with chronic suprapubic catheter, cognitive impairment and functional paraplegia Has difficulty maintaining hydration nutrition status at home Discussed PEG tube, she has had this before and had a suboptimal experience due to placement and it was removed We will continue to keep this avenue of discussion open as it may be the best option moving forward for both nutrition and hydration and to help prevent rehospitalization and improve quality of life 08/06/22: Will discuss with and patient again today about PEG tube, as she is improving seems like it is the most reasonable option moving forward to help maintain hydration and nutritional status to improve quality of life and potentially decrease risk of having to be readmitted to the hospital especially in light of need for liquid by teaspoon only, will be difficult to maintain adequate hydration this way. 08/07/2022: Spoke with Ms. Sharp and her at length about plan to optimize functional status and quality of life while she is improving and working towards getting back to baseline. Ultimately agreeable for PEG tube placement on Wednesday. We will continue to optimize over the weekend. N.p.o. at midnight on Wednesday08/08/2022: PEG tube on Wednesday so she is able to maintain hydration and nutrition while at home. Feel being at home is the best option to optimize functional status and give best chance of recovery but without PEG tube unable to maintain hydration and nutrition until closer to baseline. 08/09: PEG tube tomorrow. 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 # Anemia, macrocytic, new appearing on Chronic anemia Admission hemoglobin 11.8, MCV 99.2 however prior to this has been normocytic, prior hemoglobin 07/28/22 11.3 however prior to this patient had primarily been 10-13 range had seen, will obtain vitamin B12, folic acid, iron panel, ferritin be cautious as well as guaiac. We will continue iron supplementation. 08/04/2022: Iron panel within normal limits, ferritin high, B12 elevated and folic acid within normal limits as is TSH 08/05/2022: Continue to monitor, no evidence of bleeding at this time # Chronic Kidney Disease Stage III, unclear subtype (GFR consistent with this since at least 2019 labs reviewed): Admission BUN/Cr 25/10.47, baseline renal function appears primarily 1.1-1.4, 08/05/2022 continue to monitor BMP # Hypertension: Noted in history, no longer on medications, will continue monitor and consider adding regimen if appropriate, as needed IV hydralazine in interim. #11. DVT prophylaxis: SCDs, Lovenox. Charges/Coding Visit Charges Inpatient E&M: 45377 Subs Hosp L2
[2022-08-09] MEDS: Baclofen 10 MG Tablet 20 MG PO (20:58)
[2022-08-09] MEDS: MELATONIN 10 MG TABLET PO (21:02)
[2022-08-09] MEDS: Atorvastatin Calcium 40 MG Tablet PO (21:02)
[2022-08-09] MEDS: Mirtazapine 15 MG Tablet 45 MG PO (21:05)
[2022-08-09 23:24] LABS: Vancomycin, Trough Level 24.2 ug/mL (5.0-15.0)
--- NOTE | 2022-08-09 23:56 | PCM.RX.CS ---
Consult Pharmacy has been consulted to manage selected antiobiotic: Vancomycin Type of Consult: Follow-up Labs: Sodium 144 mmol/L (136-145) 08/09/22 07:00 Potassium 4.3 mmol/L (3.5-5.1) 08/09/22 07:00 Chloride 107 mmol/L (98-107) 08/09/22 07:00 Carbon Dioxide 31.0 mmol/L (21.0-32.0) 08/09/22 07:00 Anion Gap 6 (5-15) 08/09/22 07:00 BUN 15 mg/dL (7-18) 08/09/22 07:00 Creatinine 1.28 mg/dL (0.55-1.02) H 08/09/22 07:00 Est GFR (MDRD) Af Amer 53 mL/min (>60) L 08/09/22 07:00 Est GFR (MDRD) Non-Af 44 mL/min (>60) L 08/09/22 07:00 BUN/Creatinine Ratio 11.7 RATIO (10-20) 08/09/22 07:00 Glucose 84 mg/dL (74-106) 08/09/22 07:00 Vancomycin Trough 24.2 ug/mL (5.0-15.0) H 08/09/22 22:28 Microbiology: Microbiology 08/03/22 12:20 Urine Catheter - Maldonado Urine Culture - Final Jackelyn albicans 08/03/22 14:23 Blood Culture (Wb) - Port Blood Culture - Final No growth in 5 days. 08/03/22 15:00 Blood Culture (Wb) - Port Blood Culture - Final No growth in 5 days. Goal Trough: 15-20 mcg/mL Pharmacy Plan for Drug Dosing: Pharmacy Service will continue to monitor and adjust dosing as required. TROUGH 24.2 @ 23 HRS. HOLD CURRENT DOSE, FOLLOW UP RANDOM LEVEL IN 12 HOURS. Follow-Up Labs: Trough Vancomycin Labs to be done on [date and time ordered]: 08/10 @ 1030 RANDOM
[2022-08-10] VITALS (18 sets, daily range): BP systolic 127–145; BP diastolic 75–83; PULSE 68–94; RESP 14–16; TEMP 36.2–36.7; O2SAT 94–99; BMI 19.7
--- NOTE | 2022-08-10 | GASB_PTH ---
PATIENT: KEN CASON LOC: [facility] U#:[id number] AGE/SX: 67/F ROOM: [facility] RE08/03/[address]: Dr. Samir Lerner DO : 1955 BED: 1 DIS: 08/12/2022 SPEC #: [id number] RECD: 08/10/22 14:31 STATUS: SANDRITA SOTO #: [id number] JOSE ARMANDO: 08/10/22 00:[address]: Amari Zamarripa DEPT: SURGICAL PATHOLOGY RECD BY: Christopher Sims ENTERED: 08/11/22 08:41 SP TYPE: Gastric Bx OTHR DR: MD Dr. Alexandria Gonzalez MD Dr. Michael Bortz, MD Dr. Mark Tereletsky, DO Dr. Paige Pierce, MD Dr. Robert Leininger, MD Tissues: A - Gastric mucous membrane B - Stomach, NOS Procedures: Surgery Specimen Level IV Comments: @ Ordering doctor for SUIV edited from to @ by NICOLÁS at 08/11/22908 @ Submitting doctor edited from to @ by JERMAINEOD at 08/11/22908 HEADER OPERATION: EGD (MAC), PEG tube PRE-OP DIAGNOSIS: Swallowing impaired TISSUE SUBMITTED: A ? Gastric polyp posterior wall biopsy, B ? Greater curvature polyp biopsy MICROSCOPIC DIAGNOSIS A. Gastric polyp, posterior wall, biopsy: Fragments of hyperplastic/inflammatory polyp. See comment. B. Greater curvature polyp, biopsy: Fragments of hyperplastic/inflammatory polyp. SJ:mateo 08/12/2022 COMMENT A. The results of immunohistochemistry for Helicobacter pylori will be reported separately ([id number]). MICROSCOPIC DESCRIPTION Slides are reviewed. GROSS DESCRIPTION A - Received in fixative is one container labeled with the patient's name and designated gastric polyp posterior wall. The specimen consists of two irregular fragments of light mak soft tissue that in aggregate measure 0.6 x 0.4 x 0.1 cm. The specimen is totally submitted in one cassette. B - Received in fixative is one container labeled with the patient's name and designated greater curvature polyp biopsy. The specimen consists of two irregular fragments of light mak soft tissue that in aggregate measure 0.6 x 0.3 x 0.1 cm. The specimen is totally submitted in one cassette. / SJ:rg 08/11/2022 TC:5 CPT: 17288 x2
[2022-08-10] MEDS: Lactated Ringers 1,000 ML 75 ML IV ×2 (06:50→17:57)
[2022-08-10 07:02] LABS: Absolute Lymphocyte Count 2.15 X10^3/uL (0.83-4.51); Absolute Neutrophil Count 7.3 X10^3/uL (2.0-7.7); Basophil# 0.07 X10^3/uL; Basophil% 0.6 % (0-1); Eosinophil# 0.64 X10^3/uL; Eosinophils% 5.8 % (0-5); Hematocrit 36.5 % (37-47); Hemoglobin 11.6 g/dL (12.0-15.0); Lymphocyte # 2.15 X10^3/ul (0.83-4.51); Lymphocyte % 19.6 % (19-41); Mean Corp Hgb Conc 31.8 g/dL (32-36); Mean Corpuscular Hgb 31.1 pg (27.0-32.0); Mean Corpuscular Volume 97.9 fL (81-99); Monocyte# 0.77 X10^3/uL; NRBC Flagged by Analyzer 0 % (0-5); Neutrophil % 66.6 % (47-70); Platelet Count 177 K/mm3 (150-450); RBC Distribution Width CV 13.2 % (11.6-14.6); RBC Distribution Width SD 47.6 fl (35.1-43.9); Red Blood Count 3.73 M/mm3 (4.2-5.4)
--- NOTE | 2022-08-10 08:16 | PCM.PN.SRG ---
Subjective Subjective Patient seen and examined during AM rounds. Her is present bedside. He confirms to the best of his knowledge that his has been n.p.o. since midnight. They deny any further questions related to today's planned procedure. Objective Data Objective Data Vital Signs: Vital Signs Temp Pulse Resp BP Pulse Ox O2 Del Method O2 Flow Rate 97.6 F L 93 16 143/76 H 95 Nasal Cannula 2 08/10/22 04:00 08/10/22 04:00 08/10/22 04:00 08/10/22 04:00 08/10/22 04:00 08/10/22 04:00 08/10/22 04:00 Oxygen Flow Rate (L/min) 2 Oxygen Delivery Method Nasal Cannula Weight: 137 lb 9.095 oz Body Mass Index (BMI) 18.2 Intake & Output: Intake and Output for Last 24 Hours 08/09/22 08/09/22 08/10/22 00:59 23:59 23:59 Intake Total 1000 / 1000 Output Total 1850 / 1850 Balance -850 / -850 Medical Nutrition Assessment Dietitian: Malnutrition Criteria Met Start: 08/04/22 11:33 Freq: Status: Active Protocol: Document 08/07/22 09:28 AG (Rec: 08/07/22 09:28 [id number]) Nutrition Malnutrition Evidence of Malnutrition Exists Yes Malnutrition (moderate): Acute Illness/Injury Evidenced By Suboptimal Energy Intake ( Moderate),Weight Loss ( Moderate) Clinical Problem Acute Disease or Injury Related Malnutrition Etiology moderate, acute malnutrition related to inadequate energy intake Signs/Symptoms as evidenced by unintentional wt loss 1.8#/1.4% x 1 week; estimated energy intake meeting <75% of estimated energy needs. Status Active Problem Recommendation Dietitian Recommendations/Changes regular diet- texture/ consistency per [facility] [employer]CH; ensure plus high protein 120mL 4x/day w/ medpass and 2 ensure puddings w/ meals for additional calories/protein if consumed Lab / Micro Data Result Diagrams: 08/10/22 05:45 08/09/22 07:00 Labs: Laboratory Results - last 24 hr 08/09/22 22:28: Vancomycin Trough 24.2 H 08/10/22 05:45: WBC 11.0, RBC 3.73 L, Hgb 11.6 L, Hct 36.5 L, MCV 97.9, MCH 31.1, MCHC 31.8 L, RDW Std Deviation 47.6 H, RDW Coeff of Niurka 13.2, Plt Count 177, MPV 11.0, Immature Gran % (Auto) 0.400, Neut % (Auto) 66.6, Lymph % (Auto) 19.6, [place] % (Auto) 7.0, Eos % (Auto) 5.8 H, Baso % (Auto) 0.6, Absolute Neuts (auto) 7.3, Absolute Lymphs (auto) 2.15, Nucleated RBC % 0 Micro: Microbiology 08/03/22 12:20 Urine Catheter - Maldonado Urine Culture - Final Jackelyn albicans 08/03/22 14:23 Blood Culture (Wb) - Port Blood Culture - Final No growth in 5 days. 08/03/22 15:00 Blood Culture (Wb) - Port Blood Culture - Final No growth in 5 days. Physical Exam Const no apparent distress GI GI Narrative: Nondistended, stable prior PEG tube scars in upper epigastrium. Soft and nontender to palpation Assessment & Plan Assessment/Plan (1) Swallowing impaired: PLAN: Is a 67-year-old female with a history of a number of underlying neurologic conditions which has led to an impaired swallow. General surgery is consulted to consider PEG tube placement for patient's ongoing nutrition, hydration, and medications?particularly when she follows ill. I have reviewed patient's swallow study since speech therapy evaluation. I have also discussed the procedure with patient's ?who is very aware given patient's prior two PEG tube placements. We will plan to proceed to the endoscopy suite later this afternoon for repeat PEG tube placement, but patient's is informed that my ability to change the ultimate placement of this tube on the patient's abdominal wall is going to be limited by a pexy effect from her prior tubes. Charges/Coding Visit Charges Inpatient E&M: 29110 Subs Hosp L2
[2022-08-10] MEDS: Ceftriaxone 1 GM/50 ML BAG IV (08:59)
[2022-08-10 11:08] LABS: Anion Gap 5 (5-15); BUN 15 mg/dL (7-18); BUN/Creat Ratio 11.6 RATIO (10-20); Calcium,Total 9.4 mg/dL (8.5-10.1); Chloride 107 mmol/L (98-107); Creatinine, Serum 1.29 mg/dL (0.55-1.02); EST Glomerular Filtration Rate 44 mL/min (>60); Est Glom Filt Rate - Afr Amer 53 mL/min (>60); Estimated Creatinine Clearance 41.69 ml/min; Glucose 87 mg/dL (74-106); Magnesium 2.4 mg/dL (1.6-2.6); Potassium 4.3 mmol/L (3.5-5.1); Sodium Level 141 mmol/L (136-145)
--- NOTE | 2022-08-10 13:15 | IMM_PTH ---
PATIENT: KEN CASON LOC: [facility] U#:[id number] AGE/SX: 67/F ROOM: [facility] RE08/03/[address]: Dr. Samir Lerner DO : 1955 BED: 1 DIS: 08/12/2022 SPEC #: [id number] RECD: 08/11/22 09:08 STATUS: SANDRITA REApolonia #: [id number] JOSE ARMANDO: 08/10/22 13:[address]: Amari Zamarripa DEPT: IMMUNOHISTOCHEMISTRY RECD BY: Yeimi White ENTERED: 08/11/22 09:09 SP TYPE: IMMUNO OTHR DR: MD Dr. Alexandria Gonzalez MD Dr. Mark Tereletsky, DO Dr. Paige Pierce, MD Dr. Robert Leininger, MD Tissues: A - Stomach, NOS Procedures: H Pylori (initial) PHYSICIAN & INSTITUTION [place] [id number] SPECIMEN INFORMATION: Tissue Source: A ? Gastric polyp posterior wall biopsy Clinical Info: Swallowing impaired Specimen Number: [id number] CPT code: 88762 METHODOLOGY: Deparaffinized sections of prefer/formalin-fixed tissue or PAP/DQ stained slides are incubated with monoclonal/polyclonal antibodies/oligonucleotide probes. Localization is made via biotin free immunoperoxidase method. Appropriate controls are performed and reacted as expected. Results on target cell population are indicated in the following table: RESULTS: ANTIBODY / CLONE RESULT Block A H Pylori (polyclonal) negative These tests were developed and their performance characteristics determined by [facility]. They may not have been cleared or approved by the U.S. Food and Drug Administration. The FDA has determined that such clearance or approval is not necessary. The above immunohistochemical/dualISH markers are ordered and reviewed by the Pathologist. INTERPRETATION: A. Gastric polyp posterior wall, biopsy: Negative for Helicobacter pylori organisms. MARVIN:mateo 08/12/2022
--- NOTE | 2022-08-10 14:14 | PCM.PN.ID ---
ID ID: Route of nutrition/ use of supplements: [] Nutritional Intake: [] IV Site: [] Maldonado Catheter: [] Assessment & Plan Assessment/Plan (1) Acute UTI: PLAN: Reviewed chart. Pt gone to PEG, will do consult in AM. Please call with any acute issues.
--- NOTE | 2022-08-10 14:26 | OP.EGD_ITS ---
Patient Name: Ching Sharp Procedure Date: 08/10/2022 1:14 PM Date of : 1955 Age: 67 Procedure: Upper GI endoscopy Indications: Dysphagia, Place PEG due to impaired swallowing, Place PEG due to aspiration risk, Place PEG due to neurological disorder causing impaired swallowing Providers: Amari Zamarripa MD Medicines: See the Anesthesia note for documentation of the administered medications Patient Profile: Refer to note in patient chart for documentation of history and physical. Complications: No immediate complications. Estimated blood loss: Minimal. Procedure: Pre-Anesthesia Assessment: - The heart rate, respiratory rate, oxygen saturations, blood pressure, adequacy of pulmonary ventilation, and response to care were monitored throughout the procedure. After obtaining informed consent, the endoscope was passed under direct vision. Throughout the procedure, the patient's blood pressure, pulse, and oxygen saturations were monitored continuously. The Endoscope was introduced through the mouth, and advanced to the duodenal bulb. The upper GI endoscopy was accomplished without difficulty. The patient tolerated the procedure well. Scope In: 1:33:43 PM Scope Out: 2:07:04 PM Total Procedure Duration Time 0 hours 33 minutes 21 seconds Findings: Multiple 3 mm sessile polyps with no bleeding were found in the duodenal bulb. No biopsies or other specimens were collected for this exam. Localized mild inflammation characterized by erythema was found in the gastric antrum. No biopsies or other specimens were collected for this exam. Multiple 8 mm pedunculated and sessile polyps with no bleeding and no stigmata of recent bleeding were found in the gastric body. Biopsies were taken with a cold forceps for histology. Estimated blood loss was minimal. The Z-line was regular and was found 42 cm from the incisors. No biopsies or other specimens were collected for this exam. There was evidence of an intact gastrostomy with a patent G-tube present on the anterior wall of the stomach. This was characterized by an intact appearance. The patient was placed in the supine position for PEG placement. The stomach was insufflated to appose gastric and abdominal ch. A site was located in the body of the stomach with excellent transillumination for placement. The abdominal wall was marked and prepped in a sterile manner. The area was anesthetized with 4 mL of 1% lidocaine. The trocar needle was introduced through the abdominal wall and into the stomach under direct endoscopic view. A snare was introduced through the endoscope and opened in the gastric lumen. The guide wire was passed through the trocar and into the open snare. The snare was closed around the guide wire. The endoscope and snare were removed, pulling the wire out through the mouth. A skin incision was made at the site of needle insertion. The externally removable gastrostomy tube was lubricated. The G-tube was tied to the guide wire and pulled through the mouth and into the stomach. The trocar needle was removed, and the gastrostomy tube was pulled out from the stomach through the skin. The external bumper was attached to the gastrostomy tube, and the tube was cut to remove the guide wire. The final position of the gastrostomy tube was confirmed by relook endoscopy, and skin marking noted to be 3 cm at the external bumper. The final tension and compression of the abdominal wall by the PEG tube and external bumper were checked and revealed that the bumper was loose and lightly touching the skin. The feeding tube was capped, and the tube site cleaned and dressed. Estimated blood loss was minimal. Impression: - Multiple duodenal polyps. No specimens collected. - Gastritis. No specimens collected. - Multiple gastric polyps. Biopsied. - Z-line regular, 42 cm from the incisors. No specimens collected. - Intact gastrostomy with a patent G-tube present characterized by an intact appearance. - An externally removable PEG placement was successfully completed. Recommendation: - [facility] to [facility] for [facility] care. - NPO today. - Please follow the post-PEG recommendations including: change dressing once per day, NPO until checked by physician, may use PEG tomorrow for feedings, antibiotic ointment to site, check site for bleeding q 4 hrs and clean site with soap and water daily and dry thoroughly. - Continue present medications. Procedure Code(s): --- Professional --- 02545, Esophagogastroduodenoscopy, flexible, transoral; with directed placement of percutaneous gastrostomy tube 71227, Esophagogastroduodenoscopy, flexible, transoral; with biopsy, single or multiple Diagnosis Code(s): --- Professional --- K31.7, Polyp of stomach and duodenum K29.70, Gastritis, unspecified, without bleeding Z93.1, Gastrostomy status R13.10, Dysphagia, unspecified Z43.1, Encounter for attention to gastrostomy R63.3, Feeding difficulties R29.818, Other symptoms and signs involving the nervous system CPT copyright 2017 [employer]. All rights reserved. The codes documented in this report are preliminary and upon belt conveyor drier review may be revised to meet current compliance requirements. Amari Zamarripa MD 08/10/2022 2:24:21 PM This report has been signed electronically. Number of Addenda: 0 Note Initiated On: 08/10/2022 1:14 PM
--- NOTE | 2022-08-10 14:26 | OP.CCLET_ITS ---
08/10/2022 Alexandria Carranza Re : Upper GI endoscopy procedure for Ching Dumas Tere This procedure was performed on Wednesday, August 10, 2022. My impressions and recommendations are as follows: Impressions : - Multiple duodenal polyps. No specimens collected. - Gastritis. No specimens collected. - Multiple gastric polyps. Biopsied. - Z-line regular, 42 cm from the incisors. No specimens collected. - Intact gastrostomy with a patent G-tube present characterized by an intact appearance. - An externally removable PEG placement was successfully completed. Recommendations : - Return patient to [facility] for [facility] care. - NPO today. - Please follow the post-PEG recommendations including: change dressing once per day, NPO until checked by physician, may use PEG tomorrow for feedings, antibiotic ointment to site, check site for bleeding q 4 hrs and clean site with soap and water daily and dry thoroughly. - Continue present medications. My findings are described in the full procedure note, which is enclosed. If I can be of further assistance, please feel free to contact me at Doctor phone number(s): , Work: . Sincerely, Amari Zamarripa MD 08/10/2022 2:24:21 PM This report has been signed electronically.
[2022-08-10] MEDS: Nystatin Powder 15gm Bottle 1 APPLIC TOPICAL ×2 (15:21→21:21)
[2022-08-10] MEDS: Ketorolac 15 MG/ML Vial IV (17:55)
--- NOTE | 2022-08-10 20:18 | PCM.PN.HOSP ---
Subjective Subjective Patient was seen and examined today, I talked briefly with her about her medical care, patient went for PEG tube placement today. Patient's states he plans on taking her back home after she is discharged from the hospital. Objective Data Objective Data Vital Signs: Vital Signs Temp Pulse Resp BP Pulse Ox O2 Del Method O2 Flow Rate 97.1 F L 86 16 145/78 H 97 Nasal Cannula 2 08/10/22 15:40 08/10/22 19:00 08/10/22 15:40 08/10/22 15:40 08/10/22 15:40 08/10/22 15:40 08/10/22 15:40 FiO2 93 08/10/22 15:40 Oxygen Flow Rate (L/min) 2 Oxygen Delivery Method Nasal Cannula Weight: 62.4 kg Body Mass Index (BMI) 19.7 Intake & Output: Intake and Output for Last 24 Hours 08/09/22 08/09/22 08/10/22 00:59 23:59 23:59 Intake Total 1987.75 / 1987.75 Output Total 3150 / 3150 Balance -1161.25 / -1161.25 Medical Nutrition Assessment Dietitian: Malnutrition Criteria Met Start: 08/04/22 11:33 Freq: Status: Active Protocol: Document 08/07/22 09:28 (Rec: 08/07/22 09:28 [id number]) Nutrition Malnutrition Evidence of Malnutrition Exists Yes Malnutrition (moderate): Acute Illness/Injury Evidenced By Suboptimal Energy Intake ( Moderate),Weight Loss ( Moderate) Clinical Problem Acute Disease or Injury Related Malnutrition Etiology moderate, acute malnutrition related to inadequate energy intake Signs/Symptoms as evidenced by unintentional wt loss 1.8#/1.4% x 1 week; estimated energy intake meeting <75% of estimated energy needs. Status Active Problem Recommendation Dietitian Recommendations/Changes regular diet- texture/ consistency per [employer]; ensure plus high protein 120mL 4x/day w/ medpass and 2 ensure puddings w/ meals for additional calories/protein if consumed Lab / Micro Data Result Diagrams: 08/10/22 05:45 08/10/22 05:45 Labs: Laboratory Results - last 24 hr 08/09/22 22:28: Vancomycin Trough 24.2 H 08/10/22 05:45: WBC 11.0, RBC 3.73 L, Hgb 11.6 L, Hct 36.5 L, MCV 97.9, MCH 31.1, MCHC 31.8 L, RDW Std Deviation 47.6 H, RDW Coeff of Niurka 13.2, Plt Count 177, MPV 11.0, Immature Gran % (Auto) 0.400, Neut % (Auto) 66.6, Lymph % (Auto) 19.6, [place] % (Auto) 7.0, Eos % (Auto) 5.8 H, Baso % (Auto) 0.6, Absolute Neuts (auto) 7.3, Absolute Lymphs (auto) 2.15, Nucleated RBC % 0 08/10/22 05:45: Sodium 141, Potassium 4.3, Chloride 107, Carbon Dioxide 29.0, Anion Gap 5, BUN 15, Creatinine 1.29 H, Estim Creat Clear Calc 41.69, Est GFR (MDRD) Af Amer 53 L, Est GFR (MDRD) Non-Af 44 L, BUN/Creatinine Ratio 11.6, Glucose 87, Calcium 9.4, Magnesium 2.4 Micro: Microbiology 08/03/22 12:20 Urine Catheter - Maldonado Urine Culture - Final Jackelyn albicans 08/03/22 14:23 Blood Culture (Wb) - Port Blood Culture - Final No growth in 5 days. 08/03/22 15:00 Blood Culture (Wb) - Port Blood Culture - Final No growth in 5 days. Physical Exam Const alert Constitutional Narrative: Patient appears unwell, she appears lethargic HEENT head/scalp atraumatic Eyes EOMs intact bilaterally and conjunctivae normal Neck supple and no JVD Resp normal respiratory effort, no retractions, no use of accessory muscles and clear to auscultation bilaterally Cardio regular rate, regular rhythm, S1 normal heart sound, S2 normal heart sound and no murmurs GI normal to inspection, nondistended, normoactive bowel sounds and soft to palpation Extremity no clubbing, cyanosis or edema Extremity Narrative: Patient has lower extremity atrophy Skin no rashes or lesions noted, no wounds, skin turgor normal, no jaundice, no petechiae and no mottling Neuro oriented x3 and CN's II-XII intact bilaterally Neuro Narrative: Patient has generalized weakness and debility Psych Psych Narrative: Patient has blunted affect Assessment & Plan Assessment/Plan (1) Acute encephalopathy: PLAN: Plan 1. Acute metabolic encephalopathy secondary to multiple medical problems including MS, malnutrition, and presumed seizure disorder-patient's mental status is improving according to the patient's , continue present medications #2 presumed seizure disorder-patient has been maintained on Keppra #3 multiple sclerosis with cognitive impairment-complicates care, management, recovery, and prognosis #4 chronic depression/anxiety-patient is on Remeron #5 moderate acute protein caloric malnutrition as evidenced by unintentional weight loss of 1.8 pounds x 1 week, estimated energy intake meeting less than 75% of estimated energy needs-Ensure Plus high-protein 120 cc 4 times a day is being given, regular diet with consistency if per speech therapy, patient will have a PEG tube inserted today for nutritional support Acute urinary tract infection was ruled out Charges/Coding Visit Charges Inpatient E&M: 06418 Subs Hosp L2
[2022-08-10] MEDS: HYDROmorphone 1 MG/ML Syringe IV (22:43)
[2022-08-10] MEDS: 0.9% Saline Lock 10 ML Syringe IV (22:43)
[2022-08-11] VITALS (14 sets, daily range): BP systolic 111–165; BP diastolic 72–88; PULSE 75–86; RESP 16–18; TEMP 36.4–36.8; O2SAT 93–98
[2022-08-11] MEDS: Lactated Ringers 1,000 ML 75 ML IV ×2 (06:32→20:32)
--- NOTE | 2022-08-11 07:31 | PN.SURG_ITS ---
Subjective Subjective Patient was seen and examined during AM rounds. She is found resting quietly in bed. She confirms that she has some soreness from her procedure yesterday, but does not offer other complaints. Objective Data Objective Data Vital Signs: Vital Signs Temp Pulse Resp BP Pulse Ox O2 Del Method O2 Flow Rate 97.8 F 85 16 111/72 98 Room Air 2 08/11/22 03:20 08/11/22 07:17 08/11/22 03:20 08/11/22 03:20 08/11/22 03:20 08/11/22 03:31 08/10/22 21:17 FiO2 93 08/10/22 15:40 Oxygen Flow Rate (L/min) 2 Oxygen Delivery Method Room Air Weight: 137 lb 2.04 oz Body Mass Index (BMI) 19.7 Intake & Output: Intake and Output for Last 24 Hours 08/09/22 08/10/22 08/11/22 23:59 23:59 23:59 Intake Total 2093.75 / 2093.75 943.75 / 943.75 Output Total 3550 / 3550 500 / 500 Balance -1456.25 / -1456.25 443.75 / 443.75 Medical Nutrition Assessment Dietitian: Malnutrition Criteria Met Start: 08/04/22 11:33 Freq: Status: Active Protocol: Document 08/07/22 09:28 (Rec: 08/07/22 09:28 [id number]) Nutrition Malnutrition Evidence of Malnutrition Exists Yes Malnutrition (moderate): Acute Illness/Injury Evidenced By Suboptimal Energy Intake ( Moderate),Weight Loss ( Moderate) Clinical Problem Acute Disease or Injury Related Malnutrition Etiology moderate, acute malnutrition related to inadequate energy intake Signs/Symptoms as evidenced by unintentional wt loss 1.8#/1.4% x 1 week; estimated energy intake meeting <75% of estimated energy needs. Status Active Problem Recommendation Dietitian Recommendations/Changes regular diet- texture/ consistency per [employer]DER; ensure plus high protein 120mL 4x/day w/ medpass and 2 ensure puddings w/ meals for additional calories/protein if consumed Lab / Micro Data Result Diagrams: 08/10/22 05:45 08/10/22 05:45 Labs: Laboratory Results - last 24 hr 08/10/22 05:45: Sodium 141, Potassium 4.3, Chloride 107, Carbon Dioxide 29.0, Anion Gap 5, BUN 15, Creatinine 1.29 H, Estim Creat Clear Calc 41.69, Est GFR (MDRD) Af Amer 53 L, Est GFR (MDRD) Non-Af 44 L, BUN/Creatinine Ratio 11.6, Glucose 87, Calcium 9.4, Magnesium 2.4 Micro: Microbiology 08/03/22 12:20 Urine Catheter - Maldonado Urine Culture - Final Jackelyn albicans 08/03/22 14:23 Blood Culture (Wb) - Port Blood Culture - Final No growth in 5 days. 08/03/22 15:00 Blood Culture (Wb) - Port Blood Culture - Final No growth in 5 days. Physical Exam Const no apparent distress Resp normal respiratory effort GI GI Narrative: Patient's abdomen is inspected and her PEG tube is found placed to gravity via a Hiram syringe. Her PEG tube bumper remains in stable position at 3 cm along the tubing from the skin. There is no drainage or redness. Patient's abdomen is soft and nontender with palpation Assessment & Plan Assessment/Plan (1) Swallowing impaired: PLAN: Is a 67-year-old female with a history of a number of underlying neurologic conditions which has led to an impaired swallow. General surgery was consulted to consider PEG tube placement for patient's ongoing nutrition, hydration, and medications?particularly when she falls ill. Patient underwent this procedure in uncomplicated fashion yesterday 08/10/2022. She was held n.p.o. with the tube to gravity overnight. This morning the tube appears in stable position and patient's exam is reassuring. I have cleared the tube for use and recommend water flushes every 6 hours to maintain patency. Patient may also resume their previous diet at this time. Charges/Coding Visit Charges Inpatient E&M: 29428 Subs Hosp L2
[2022-08-11] MEDS: Senna/Docusate Sodium 1 Tablet PO ×2 (09:11→23:00)
[2022-08-11] MEDS: Nystatin Powder 15gm Bottle 1 APPLIC TOPICAL ×2 (09:11→23:02)
[2022-08-11] MEDS: ARIPiprazole 2 MG Tablet PO (09:12)
[2022-08-11] MEDS: Loratadine 10 MG Tablet PO (09:12)
[2022-08-11] MEDS: Acetaminophen 325 MG Tablet 650 MG PO ×3 (09:14→23:00)
--- NOTE | 2022-08-11 10:11 | PCM.CONS.GEN ---
Assessment & Plan Assessment/Plan (1) Acute encephalopathy: PLAN: Improved. Ucx on admit with marlys, has not received any antifungal. Would restart methenamine at discharge. No need for further abx at this point. Will follow, thank you (2) Multiple sclerosis: HPI Consult Data Date of Consult: 08/11/22 HPI Narrative Reason for Consultation: (+) ucx HPI Narrative: KEN CASON, is a 67 F with MS, recent admit for recurrent uti. Admitted 08/03 for altered mental status, nausea, weakness. Has suprapubic catheter and L chest port. Recently started on methename. Admitted here, given short course of vanc. Taken for PEG yesterday. Doing ok, not much appetite this AM. Urine is clear. ROS unobtainable due to mental status. History obtained from at bedside. [facility] Medical History Alcohol use Allergic rhinitis Back pain Bilateral hydronephrosis Blackout Chronic constipation CKD (chronic kidney disease) stage 4, GFR 15-29 ml/min Complicated urinary tract infection Constipation Declining functional status Dental bridge present Depression Difficulty swallowing Endometrial thickening on ultrasound History of echocardiogram History of edema History of wrist fracture Hyperlipidemia Hypertension Indwelling urethral catheter present Insomnia Iron deficiency anemia Loss of hearing Low iron Migraine headache Migraine headache MRSA colonization Multiple sclerosis Multiple sclerosis Muscle spasm Neurogenic bladder Non-smoker OAB (overactive bladder) Pelvic pain Port-A-Cath in place Right hemiparesis Urinary tract infection Uses wheelchair Vitamin D deficiency Wears glasses Home Medications bisacodyl 10 mg rectal suppository 10 mg RECTAL DAILY constipation 07/01/18 [History Last Taken 11/24/21] acetaminophen 500 mg tablet 1,000 mg PO Q6H PRN PRN Pain 02/15/19 [History Last Taken 03/25/19] lactulose 20 gram/30 mL oral solution 60 gm PO QHS constipation 03/25/19 [History Last Taken 11/23/21] baclofen 20 mg tablet 20 mg PO TID MUSCLE 05/23/19 [History Last Taken 11/24/21] magnesium oxide 400 mg (241.3 mg magnesium) tablet 400 mg PO QHS magnesium supplement 05/23/19 [History Last Taken 11/23/21] melatonin 5 mg capsule 10 mg PO QHS sleep 05/23/19 [History Last Taken 11/23/21] polysaccharide iron complex 150 mg iron capsule 150 mg PO DAILY iron replacement 05/23/19 [History Last Taken 11/24/21] glucosamine RUh-F4-Uhmcxpnwe zoey 1,500 mg-400 unit-100 mg tablet 1 tab PO DAILY supplement 11/15/20 [History Last Taken Unknown] krill 1,000 mg-omega-3 170 mg-dha 50 mg-epa 80 sv-joxarb-jqoly capsule 1 ea PO BID supplement 11/15/20 [History Last Taken Unknown] mirtazapine 15 mg tablet 45 mg PO QHS 11/15/20 [History Last Taken 11/23/21] vitamin B complex-folic acid 0.4 mg tablet 1 tab PO DAILY vitamin 11/15/20 [History Last Taken 11/24/21] cholecalciferol (vitamin D3) 1,250 mcg (50,000 unit) capsule 50,000 unit PO QMONTH vitamin 08/15/21 [History Last Taken 2 Weeks Ago ~11/10/21] donepezil 10 mg tablet 10 mg PO QHS memory 08/15/21 [History Last Taken 11/23/21] methylphenidate HCl 10 mg tablet (Ritalin) 10 mg PO DAILY 08/15/21 [History Last Taken 11/24/21] tumeric 100 mg-tristian 150 mg-olive 50 mg-oreg 150 mg-caprylate capsule 2 cap PO BID supplement 08/15/21 [History Last Taken 11/23/21] cinacalcet 30 mg tablet 30 mg PO QODAY hyperparathyroidism 11/24/21 [History Last Taken 11/23/21] xklirmtx-cwtndaw-oqof-lutein tablet 1 tab PO DAILY SUPPLEMENT 11/24/21 [History Last Taken 11/23/21] nystatin 100,000 unit/mL oral suspension 500,000 unit (5 mL) PO 4X/DAY 5 days #100 mL 11/27/21 [Rx Last Taken Unknown] fexofenadine 180 mg tablet 180 mg PO DAILY 07/22/22 [History Last Taken Unknown] memantine 5 mg-10 mg tablets in a dose pack 10 tab PO BID 07/22/22 [History Last Taken Unknown] ondansetron 4 mg disintegrating tablet 4 mg PO Q8H PRN nausea and vomiting #10 tabs 07/22/22 [Rx Last Taken Unknown] amitriptyline 10 mg tablet 10 mg PO QHS 07/23/22 [History Last Taken Unknown] ascorbic acid (vitamin C) 1,000 mg tablet,extended release (Vitamin C ER) 1,000 mg PO BREAKFAST 07/23/22 [History Last Taken Unknown] food supplemt, lactose-reduced 0.08 gram-1.5 kcal/mL oral liquid 120 ml PO 4X/DAY #0 mL 07/28/22 [Rx Last Taken Unknown] methenamine hippurate 1 gram tablet 1 g PO BID 30 days #60 tabs 07/28/22 [Rx Last Taken Unknown] Allergy/AdvReac Type Severity Reaction Status Date / Time ciprofloxacin [From Cipro] AdvReac hypotension Verified 07/23/22 17:59 dextrose 5 % in water AdvReac Other Verified 07/23/22 17:59 [From Zyvox] doxycycline AdvReac hypotension Verified 07/23/22 17:59 levofloxacin [From Levaquin] AdvReac hypotension Verified 07/23/22 17:59 linezolid [From Zyvox] AdvReac Other Verified 07/23/22 17:59 morphine AdvReac hallucinati Verified 07/23/22 17:59 ons piperacillin [From Zosyn] AdvReac hypotension Verified 07/23/22 17:59 sulfamethoxazole AdvReac hypotension Verified 07/23/22 17:59 [From Bactrim] tazobactam [From Zosyn] AdvReac hypotension Verified 07/23/22 17:59 trimethoprim [From Bactrim] AdvReac hypotension Verified 07/23/22 17:59 vancomycin AdvReac developed Verified 07/23/22 17:59 toxic levels Family History Mother Osteoporosis Grandmother Breast cancer Surgical History H/O cervical polypectomy H/O dilation and curettage History of cystoscopy History of esophagogastroduodenoscopy (EGD) History of tonsillectomy and adenoidectomy History of tympanoplasty Hx of hand surgery Hx of shoulder surgery S/P laparoscopic procedure Social History household members: spouse housing: house Smoking Status: Never smoker alcohol intake: never substance use type: does not use what type of physical activity do you participate in: none seatbelt use: always do you feel safe at home: Yes 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Physical Exam Const no apparent distress General Appearance: cooperative HEENT normocephalic and head/scalp atraumatic Eyes PERRL and EOMs intact bilaterally Neck supple and No nodes Resp normal air movement and clear to auscultation bilaterally Cardio regular rate and regular rhythm GI soft to palpation, non-tender and non-distended Extremity General Extremity: Negative for edema Skin no rashes or lesions noted Medical Records Data Medical Nutrition Assessment Dietitian: Malnutrition Criteria Met Start: 08/04/22 11:33 Freq: Status: Active Protocol: Document 08/07/22 09:28 (Rec: 08/07/22 09:28 [id number]) Nutrition Malnutrition Evidence of Malnutrition Exists Yes Malnutrition (moderate): Acute Illness/Injury Evidenced By Suboptimal Energy Intake ( Moderate),Weight Loss ( Moderate) Clinical Problem Acute Disease or Injury Related Malnutrition Etiology moderate, acute malnutrition related to inadequate energy intake Signs/Symptoms as evidenced by unintentional wt loss 1.8#/1.4% x 1 week; estimated energy intake meeting <75% of estimated energy needs. Status Active Problem Recommendation Dietitian Recommendations/Changes regular diet- texture/ consistency per SUPERINTENDENT ELECTRIC POWER; ensure plus high protein 120mL 4x/day w/ medpass and 2 ensure puddings w/ meals for additional calories/protein if consumed Lab / Micro Data Attestation: I reviewed the patient's lab results. Result Diagrams: 08/10/22 05:45 08/10/22 05:45 Labs: Laboratory Results - last 24 hr 08/10/22 05:45: Sodium 141, Potassium 4.3, Chloride 107, Carbon Dioxide 29.0, Anion Gap 5, BUN 15, Creatinine 1.29 H, Estim Creat Clear Calc 41.69, Est GFR (MDRD) Af Amer 53 L, Est GFR (MDRD) Non-Af 44 L, BUN/Creatinine Ratio 11.6, Glucose 87, Calcium 9.4, Magnesium 2.4
[2022-08-11] MEDS: Baclofen 10 MG Tablet PO (11:10)
--- NOTE | 2022-08-11 11:58 | CASEMGMT ---
Addendum entered by Kelsie Reyes 08/11/22 14:38: No response that referral was received thru [facility] so referral also faxed to [facility] at this time. CM to follow. Zachariah SU CM Original Note: Pt to be sent home with tube feeds and script filled out by [facility] correctional captain. Pt's states would like [place] for tube feed/supplies as they use them for multiple others supplies. Referral sent via [facility] to [facility]. CM to follow. Sienna at [facility] updated that pt going home on tube feeds, voices understanding. had declined SN in past but is agreeable at this time. Order placed for [facility] and adding SN. Sienna at [facility] aware. Zachariah SU CM
--- NOTE | 2022-08-11 14:15 | CHAPLAIN ---
Type of Pastoral Visit ___ Initial Visit _x__ Follow-up Visit ___ On-call Visit ___ General Patient Visit ___ Spiritual Assessment ___ Family Conference ___ Bereavement ___ Rapid Response ___ Code Blue ___ Other (describe below) Pastoral Care Referral From ___ Patient _x__ Family ___ Nurse ___ Physician ___ Vice President Industrial Relations ___ Support Services Coordinator ___ Other (describe below) Sacrament/Intervention _x__ Active listening ___ Anointing ___ Lutheran ___ Bereavement ___ Communion _x__ Justine exploration ___ _x__ Life review _x__ Prayer ___ Reconciliation ___ Sacrament of Sick _x__ Supportive presence ___ Wedding ___ Other (describe below) Pastoral Comments spouse requested visit by this applications analyst; spouse gives update on pt health status and planned discharge for tomorrow; pt herself is able to quietly verbalize one word responses at this time which is an improvement; pt is being fed by her spouse; spouse asks several reflective questions as he verbalizes his thoughts on care past and present from the medical team; spouse states at one point, I just need to talk about some things with someone else; prayer welcomed
--- NOTE | 2022-08-11 17:54 | PN.HOSP_ITS ---
Subjective Subjective She was seen and examined today, she appears lethargic but nods her head appropriately to questions. I talked with the about her medical care today, he is agreed to have home nursing see the patient at their home. Patient's does not feel comfortable with patient going home today, he wants to see how she does with her oral intake today, I will reevaluate the patient tomorrow for possible discharge home tomorrow. Objective Data Objective Data Vital Signs: Vital Signs Temp Pulse Resp BP Pulse Ox O2 Del Method O2 Flow Rate 97.5 F L 77 16 127/72 H 93 Room Air 2 08/11/22 16:18 08/11/22 16:18 08/11/22 16:18 08/11/22 16:18 08/11/22 16:18 08/11/22 16:18 08/11/22 16:00 FiO2 93 08/11/22 16:00 Oxygen Flow Rate (L/min) 2 Oxygen Delivery Method Room Air Weight: 62.2 kg Body Mass Index (BMI) 19.7 Intake & Output: Intake and Output for Last 24 Hours 08/09/22 08/10/22 08/11/22 23:59 23:59 23:59 Intake Total 2093.75 / 2093.75 2190.00 / 2190.00 Output Total 3550 / 3550 1500 / 1500 Balance -1456.25 / -1456.25 690.00 / 690.00 Medical Nutrition Assessment Dietitian: Malnutrition Criteria Met Start: 08/04/22 11:33 Freq: Status: Active Protocol: Document 08/07/22 09:28 (Rec: 08/07/22 09:28 [id number]) Nutrition Malnutrition Evidence of Malnutrition Exists Yes Malnutrition (moderate): Acute Illness/Injury Evidenced By Suboptimal Energy Intake ( Moderate),Weight Loss ( Moderate) Clinical Problem Acute Disease or Injury Related Malnutrition Etiology moderate, acute malnutrition related to inadequate energy intake Signs/Symptoms as evidenced by unintentional wt loss 1.8#/1.4% x 1 week; estimated energy intake meeting <75% of estimated energy needs. Status Active Problem Recommendation Dietitian Recommendations/Changes regular diet- texture/ consistency per CLEAN UP SUPERVISOR; ensure plus high protein 120mL 4x/day w/ medpass and 2 ensure puddings w/ meals for additional calories/protein if consumed Lab / Micro Data Result Diagrams: 08/10/22 05:45 08/10/22 05:45 Micro: Microbiology 08/03/22 12:20 Urine Catheter - Maldonado Urine Culture - Final Jackelyn albicans 08/03/22 14:23 Blood Culture (Wb) - Port Blood Culture - Final No growth in 5 days. 08/03/22 15:00 Blood Culture (Wb) - Port Blood Culture - Final No growth in 5 days. Physical Exam Narrative alert Constitutional Narrative: Patient appears unwell, she appears lethargic HEENT head/scalp atraumatic Eyes EOMs intact bilaterally and conjunctivae normal Neck supple and no JVD Resp normal respiratory effort, no retractions, no use of accessory muscles and clear to auscultation bilaterally Cardio regular rate, regular rhythm, S1 normal heart sound, S2 normal heart sound and no murmurs GI normal to inspection, nondistended, normoactive bowel sounds and soft to palpation Extremity no clubbing, cyanosis or edema Extremity Narrative: Patient has lower extremity atrophy Skin no rashes or lesions noted, no wounds, skin turgor normal, no jaundice, no petechiae and no mottling Neuro oriented x3 and CN's II-XII intact bilaterally Neuro Narrative: Patient has generalized weakness and debility Psych Psych Narrative: Patient has blunted affect Assessment & Plan Assessment/Plan (1) Acute encephalopathy: PLAN: Plan 1. Acute metabolic encephalopathy secondary to multiple medical problems including MS, malnutrition, and presumed seizure disorder-patient's mental status is improving according to the patient's , continue present medications #2 presumed seizure disorder-patient has been maintained on Keppra #3 multiple sclerosis with cognitive impairment-complicates care, management, recovery, and prognosis #4 chronic depression/anxiety-patient is on Remeron #5 moderate acute protein caloric malnutrition as evidenced by unintentional weight loss of 1.8 pounds x 1 week, estimated energy intake meeting less than 75% of estimated energy needs-Ensure Plus high-protein 120 cc 4 times a day is being given, regular diet with consistency if per speech therapy, patient will have a PEG tube inserted today for nutritional support Acute urinary tract infection was ruled out Charges/Coding Visit Charges Inpatient E&M: 60313 Subs Hosp L2
[2022-08-11] MEDS: MELATONIN 10 MG TABLET PO (22:59)
[2022-08-11] MEDS: Mirtazapine 15 MG Tablet 45 MG PO (23:01)
[2022-08-11] MEDS: Baclofen 10 MG Tablet 20 MG PO (23:02)
[2022-08-12] MEDS: Jevity 1.5. 1,000 ML Bottle 250 ML GT ×2 (00:22→09:56)
[2022-08-12 03:00] VITALS: PULSE 93
[2022-08-12 04:00] VITALS: BP 146/87; PULSE 81; PULSE 83; RESP 16; TEMP 36.8; O2SAT 93
[2022-08-12 06:49] VITALS: PULSE 84
[2022-08-12 07:40] VITALS: O2SAT 91
[2022-08-12] MEDS: Senna/Docusate Sodium 1 Tablet PO (08:34)
[2022-08-12] MEDS: Acetaminophen 325 MG Tablet 650 MG PO ×2 (08:34→14:32)
[2022-08-12] MEDS: Iron Polysaccharide Complex 150 MG CAPSULE PO (08:34)
[2022-08-12] MEDS: ARIPiprazole 2 MG Tablet PO (08:35)
[2022-08-12] MEDS: Loratadine 10 MG Tablet PO (08:35)
[2022-08-12] MEDS: Cinacalcet HCl 30 MG Tablet PO (08:35)
[2022-08-12] MEDS: Baclofen 10 MG Tablet PO ×2 (08:36→12:10)
[2022-08-12] MEDS: Bisacodyl 10 MG Suppository RC (08:36)
--- NOTE | 2022-08-12 09:01 | CASEMGMT ---
Addendum entered by Kelsie Reyes 08/12/22 10:32: voices no further questions/concerns/needs. Zachariah SU CM Addendum entered by Kelsie Reyes 08/12/22 10:27: Pt will be going home on bolus TF/fluids, SN set up thru [facility] and pt has also been educated while here. Zachariah SU CM Original Note: Call to [facility] regarding tube feed referral as they have not contacted this SHARLENE LATHAM yet. Per rep, they have received referral via fax and Claribel is working on it. Claribel's ext [phone]. Per Claribel, pt/ to call once home and they will deliver some supplies tonight and then she will send out further shipment as well. Claribel states no further concerns/needs with setting up tube feeds. Pt/ updated on all, voice understanding. [place] number placed on d/c instructions with instructions to call them as well on arrival home. Sienna at [facility] aware of pt likely d/c home today. Zachariah SU CM
--- NOTE | 2022-08-12 09:28 | PCM.PN.SRG ---
Subjective Subjective Patient was seen and examined during AM rounds. She has found resting quietly in bed. She states that she still has some soreness with her tube and this appears to be stable from yesterday. Nursing presents to bedside and reports that patient tolerated bolus feeds overnight without issue. Objective Data Objective Data Vital Signs: Vital Signs Temp Pulse Resp BP Pulse Ox O2 Del Method O2 Flow Rate 98.3 F 84 16 146/87 H 91 Room Air 2 08/12/22 04:00 08/12/22 06:49 08/12/22 04:00 08/12/22 04:00 08/12/22 07:40 08/12/22 08:40 08/11/22 16:00 FiO2 93 08/11/22 16:00 Oxygen Flow Rate (L/min) 2 Oxygen Delivery Method Room Air Weight: 137 lb 9.095 oz Body Mass Index (BMI) 19.7 Intake & Output: Intake and Output for Last 24 Hours 08/10/22 08/11/22 08/12/22 23:59 23:59 23:59 Intake Total 2093.75 / 2093.75 3163.75 / 3163.75 Output Total 3550 / 3550 1500 / 2500 2800 / 2800 Balance -1456.25 / -1456.25 1663.75 / 663.75 -2800 / -2800 Medical Nutrition Assessment Dietitian: Malnutrition Criteria Met Start: 08/04/22 11:33 Freq: Status: Active Protocol: Document 08/07/22 09:28 (Rec: 08/07/22 09:28 [id number]) Nutrition Malnutrition Evidence of Malnutrition Exists Yes Malnutrition (moderate): Acute Illness/Injury Evidenced By Suboptimal Energy Intake ( Moderate),Weight Loss ( Moderate) Clinical Problem Acute Disease or Injury Related Malnutrition Etiology moderate, acute malnutrition related to inadequate energy intake Signs/Symptoms as evidenced by unintentional wt loss 1.8#/1.4% x 1 week; estimated energy intake meeting <75% of estimated energy needs. Status Active Problem Recommendation Dietitian Recommendations/Changes regular diet- texture/ consistency per DIRECTOR REHABILITATION PROGRAM; ensure plus high protein 120mL 4x/day w/ medpass and 2 ensure puddings w/ meals for additional calories/protein if consumed Lab / Micro Data Result Diagrams: 08/10/22 05:45 08/10/22 05:45 Micro: Microbiology 08/03/22 12:20 Urine Catheter - Maldonado Urine Culture - Final Jackelyn albicans 08/03/22 14:23 Blood Culture (Wb) - Port Blood Culture - Final No growth in 5 days. 08/03/22 15:00 Blood Culture (Wb) - Port Blood Culture - Final No growth in 5 days. Physical Exam Const no apparent distress Resp normal respiratory effort GI GI Narrative: Patient's abdomen is inspected and her PEG tube is found capped. Her PEG tube bumper remains in stable position at 3 cm along the tubing from the skin. There is no drainage or redness. Patient's abdomen is soft and nontender with palpation Assessment & Plan Assessment/Plan (1) Swallowing impaired: PLAN: Is a 67-year-old female with a history of a number of underlying neurologic conditions which has led to an impaired swallow. General surgery was consulted to consider PEG tube placement for patient's ongoing nutrition, hydration, and medications?particularly when she falls ill. Patient underwent this procedure in uncomplicated fashion 08/10/2022. Patient reporting persistent soreness at her tube site, but on exam the tube is in stable position and is appropriate appearing. Per nursing report, patient is tolerating bolus feeds via tube. At this time tube can be used as needed and recommend regular flushing to ensure patency. Patient has a single suture running from the abdominal wall through the bumper and secures the bumper against the tubing. The suture should remain in place for at least the next 6 weeks and then may be removed. Seeing no further surgical needs at this time, general surgery will sign off but remains available for any questions or concerns should they arise. Charges/Coding Visit Charges Inpatient E&M: 19655 Subs Hosp L2
[2022-08-12] MEDS: 0.9% Saline Lock 10 ML Syringe IV (09:29)
[2022-08-12] MEDS: Ondansetron 4 MG/2 ML Vial IV (09:29)
[2022-08-12 10:00] VITALS: BP 148/78; PULSE 81; RESP 18; TEMP 36.6; O2SAT 93
[2022-08-12] MEDS: Lactated Ringers 1,000 ML 75 ML IV (10:51)
--- NOTE | 2022-08-12 12:00 | DCINST_ITS ---
Discharge Instructions Diet Discharge Diet: - (Moist pur?ed, feed by teaspoon, oral care after meal) Activity Discharge Activity: - (Resume previous activity level) Follow Up Care Test Results: Test results from this visit will be discussed in further detail at your follow- up appointment, if applicable. 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 Please take 500 mg twice daily and I will be importantly follow-up with your outpatient neurologist for an ambulatory EEG -She requires oral care after all meals/snacks, then after 30 minutes she is ok for THIN WATER ONLY by tsp with total feeding assistance. Small Bites, Liquid by Teaspoon Only, Slow Rate. Puree Textures, Pudding-thick Liquids -He was started on atorvastatin due to an old stroke seen on your MRI ? Your medications were adjusted as they can contribute to confusion and also several can lower the seizure threshold. A complete list of active medications will be provided for you Use tube feedings as directed Discharge Orders/Prescriptions Prescriptions: New aripiprazole 2 mg Tablet 2 mg PO DAILY Qty: 30 0RF Jevity 1.5 Carlos 0.06 gram-1.5 kcal/mL Liquid 250 ml G-tube HS Qty: 0 0RF Jevity 1.5 Carlos 0.06 gram-1.5 kcal/mL Liquid 250 ml G-tube TIDPC Qty: 0 0RF levetiracetam [Keppra] 500 mg tablet 500 mg PO BID Qty: 60 0RF promethazine 6.25 mg/5 mL syrup 6.25 mg PO .AD PRN (Reason: nausea and vomiting) Qty: 240 0RF Rx Instructions: 5-10 ml Q6H prn nausea Continued bisacodyl 10 MG suppository 10 mg RECTAL DAILY acetaminophen 500 MG tablet 1,000 mg PO Q6H PRN PRN (Reason: Pain) lactulose 20 GM/30 ML solution 60 gm PO QHS Rx Instructions: QHS polysaccharide iron complex 150 MG capsule 150 mg PO DAILY baclofen 20 MG tablet 20 mg PO TID melatonin 5 MG capsule 10 mg PO QHS magnesium oxide 400 MG tablet 400 mg PO QHS mirtazapine 15 MG tablet 45 mg PO QHS yajjisdhqxc-A2-Nswbkrhcz serr 1 EACH tablet 1 tab PO DAILY vitamin B complex-folic acid 0.4 MG tablet 1 tab PO DAILY nnmyp-ot-6-lne-ljg-aetmzfe-ast 1 EACH capsule 1 ea PO BID methylphenidate HCl [Ritalin] 10 mg Tablet 10 mg PO DAILY donepezil 10 mg Tablet 10 mg PO QHS aldlvrc-rrse-pcais-oreg-capryl 100 mg-150 mg- 50 mg-150 mg Capsule 2 cap PO BID cholecalciferol (vitamin D3) 1,250 mcg (50,000 unit) capsule 50,000 unit PO QMONTH igchjybu-mxbulxd-yynn-lutein Tablet 1 tab PO DAILY cinacalcet 30 mg tablet 30 mg PO QODAY Label Comments: TAKE 1 TABLET BY MOUTH EVERY OTHER DAY WITH FOOD nystatin 100,000 unit/mL Suspension 500,000 unit PO 4X/DAY 5 Days Qty: 100 0RF fexofenadine 180 mg Tablet 180 mg PO DAILY memantine 5-10 mg tablets,dose pack 10 tab PO BID ondansetron 4 mg tablet,disintegrating 4 mg PO Q8H PRN (Reason: nausea and vomiting) Qty: 10 0RF Vitamin C 1,000 mg Tablet Extended Release 1,000 mg PO BREAKFAST amitriptyline 10 mg Tablet 10 mg PO QHS food supplemt, lactose-reduced 0.08 gram-1.5 kcal/mL Liquid 120 ml PO 4X/DAY Qty: 0 0RF methenamine hippurate 1 gram tablet 1 g PO BID 30 Days Qty: 60 0RF Referrals / Follow Up: Alexandria Carranza MD [Primary Care Provider] - Within 2 Weeks Disposition Disposition (needs filled in before D/C Order can be placed): Home Health Service
--- NOTE | 2022-08-12 15:05 | PHA.DC.MR ---
Pharmacy Service has performed discharge medication reconciliation for this patient. The patient's discharge medication list was reviewed for discrepancies and discrepancies were resolved. Spoke to Dr. Lerner, d/c instructions say to start atorvastatin but it was not ordered. He will start lipitor and aspirin due to old infarct on MRI. 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 Home Medications bisacodyl 10 mg rectal suppository 10 mg RECTAL DAILY constipation 07/01/18 acetaminophen 500 mg tablet 1,000 mg PO Q6H PRN PRN Pain 02/15/19 lactulose 20 gram/30 mL oral solution 60 gm PO QHS constipation 03/25/19 baclofen 20 mg tablet 20 mg PO TID MUSCLE 05/23/19 magnesium oxide 400 mg (241.3 mg magnesium) tablet 400 mg PO QHS magnesium supplement 05/23/19 melatonin 5 mg capsule 10 mg PO QHS sleep 05/23/19 polysaccharide iron complex 150 mg iron capsule 150 mg PO DAILY iron replacement 05/23/19 glucosamine MZy-S7-Tzqsfonpx zoey 1,500 mg-400 unit-100 mg tablet 1 tab PO DAILY supplement 11/15/20 krill 1,000 mg-omega-3 170 mg-dha 50 mg-epa 80 ce-pcture-afnvw capsule 1 ea PO BID supplement 11/15/20 mirtazapine 15 mg tablet 45 mg PO QHS 11/15/20 vitamin B complex-folic acid 0.4 mg tablet 1 tab PO DAILY vitamin 11/15/20 cholecalciferol (vitamin D3) 1,250 mcg (50,000 unit) capsule 50,000 unit PO QMONTH vitamin 08/15/21 donepezil 10 mg tablet 10 mg PO QHS memory 08/15/21 methylphenidate HCl 10 mg tablet (Ritalin) 10 mg PO DAILY 08/15/21 tumeric 100 mg-tristian 150 mg-olive 50 mg-oreg 150 mg-caprylate capsule 2 cap PO BID supplement 08/15/21 cinacalcet 30 mg tablet 30 mg PO QODAY hyperparathyroidism 11/24/21 rxwdrrel-javbivn-xkbk-lutein tablet 1 tab PO DAILY SUPPLEMENT 11/24/21 nystatin 100,000 unit/mL oral suspension 500,000 unit (5 mL) PO 4X/DAY 5 days #100 mL 11/27/21 fexofenadine 180 mg tablet 180 mg PO DAILY 07/22/22 memantine 5 mg-10 mg tablets in a dose pack 10 tab PO BID 07/22/22 ondansetron 4 mg disintegrating tablet 4 mg PO Q8H PRN nausea and vomiting #10 tabs 07/22/22 amitriptyline 10 mg tablet 10 mg PO QHS 07/23/22 ascorbic acid (vitamin C) 1,000 mg tablet,extended release (Vitamin C ER) 1,000 mg PO BREAKFAST 07/23/22 food supplemt, lactose-reduced 0.08 gram-1.5 kcal/mL oral liquid 120 ml PO 4X/DAY #0 mL 07/28/22 methenamine hippurate 1 gram tablet 1 g PO BID 30 days #60 tabs 07/28/22 aripiprazole 2 mg tablet 2 mg PO DAILY #30 tabs 08/12/22 aspirin 81 mg chewable tablet 81 mg PO DAILY #1 TAB 08/12/22 atorvastatin 40 mg tablet 40 mg PO QHS #30 tabs 08/12/22 lactose-reduced food with fiber 0.06 gram-1.5 kcal/mL oral liquid (Jevity 1.5 Carlos) 250 ml G-tube HS #0 mL 08/12/22 lactose-reduced food with fiber 0.06 gram-1.5 kcal/mL oral liquid (Jevity 1.5 Carlos) 250 ml G-tube TIDPC #0 mL 08/12/22 levetiracetam 500 mg tablet (Keppra) 500 mg PO BID #60 tabs 08/12/22 promethazine 25 mg tablet 25 mg PO Q6H PRN nausea and vomiting #30 tabs 08/12/22 promethazine 6.25 mg/5 mL oral syrup 6.25 mg (5 mL) PO .AD PRN nausea and vomiting #240 mL 08/12/22
--- NOTE | 2022-08-12 16:21 | DS.PCM_ITS ---
Providers Date of Admission: 08/03/22 Date of Discharge: 08/12/22 Primary Care Physician: Dr. Alexandria Carranza MD Consultations 08/06/22 11:54 Consult: General Surgery Routine Consulting Provider: Amari Zamarripa Reason for Consult: PEG tube placement, fam wants to discuss w/ surgeon prior to placement EMERGENT Consult: No MD Notified: Yes Date Notified: 08/06/22 Time Notified: 13:01 Method of Notification: Text 08/08/22 10:01 Consult: Infectious Disease Routine Consulting Provider: Ted Wright Reason for Consult: Hx recurrent UTIs and fluctuating AMS +yeast like organism, abx recs EMERGENT Consult: No Notified: Yes Date Notified: 08/10/22 Time Notified: 08:07 Method of Notification: Text Reason For Visit: ENCEPHALOPATHY, POSS UTI, POSS SEIZURE Diagnosis Discharge Diagnosis (1) Swallowing impaired: Status: Acute Code(s): R13.10 - Dysphagia, unspecified Plan 1.? Acute metabolic encephalopathy secondary to multiple medical problems including MS, malnutrition, and presumed seizure disorder-patient's mental status is improving according to the patient's , continue present medications #2 presumed seizure disorder-patient has been maintained on Keppra #3 multiple sclerosis with cognitive impairment-complicates care, management, recovery, and prognosis #4 chronic depression/anxiety-patient is on Remeron #5 moderate acute protein caloric malnutrition as evidenced by unintentional weight loss of 1.8 pounds x 1 week, estimated energy intake meeting less than 75% of estimated energy needs-Ensure Plus high-protein 120 cc 4 times a day is being given, regular diet with consistency if per speech therapy, patient will have a PEG tube inserted today for nutritional support Acute? urinary tract infection was ruled out Medications at Discharge Home Medications bisacodyl 10 mg rectal suppository 10 mg RECTAL DAILY constipation 07/01/18 acetaminophen 500 mg tablet 1,000 mg PO Q6H PRN PRN Pain 02/15/19 lactulose 20 gram/30 mL oral solution 60 gm PO QHS constipation 03/25/19 baclofen 20 mg tablet 20 mg PO TID MUSCLE 05/23/19 magnesium oxide 400 mg (241.3 mg magnesium) tablet 400 mg PO QHS magnesium supplement 05/23/19 melatonin 5 mg capsule 10 mg PO QHS sleep 05/23/19 polysaccharide iron complex 150 mg iron capsule 150 mg PO DAILY iron replacement 05/23/19 glucosamine QJm-I1-Sjugrwstk zoey 1,500 mg-400 unit-100 mg tablet 1 tab PO DAILY supplement 11/15/20 krill 1,000 mg-omega-3 170 mg-dha 50 mg-epa 80 um-rfrwuq-wwrfy capsule 1 ea PO BID supplement 11/15/20 mirtazapine 15 mg tablet 45 mg PO QHS 11/15/20 vitamin B complex-folic acid 0.4 mg tablet 1 tab PO DAILY vitamin 11/15/20 cholecalciferol (vitamin D3) 1,250 mcg (50,000 unit) capsule 50,000 unit PO QMONTH vitamin 08/15/21 donepezil 10 mg tablet 10 mg PO QHS memory 08/15/21 methylphenidate HCl 10 mg tablet (Ritalin) 10 mg PO DAILY 08/15/21 tumeric 100 mg-tristian 150 mg-olive 50 mg-oreg 150 mg-caprylate capsule 2 cap PO BID supplement 08/15/21 cinacalcet 30 mg tablet 30 mg PO QODAY hyperparathyroidism 11/24/21 tlpobxcr-xwelgpn-awhi-lutein tablet 1 tab PO DAILY SUPPLEMENT 11/24/21 nystatin 100,000 unit/mL oral suspension 500,000 unit (5 mL) PO 4X/DAY 5 days #100 mL 11/27/21 fexofenadine 180 mg tablet 180 mg PO DAILY 07/22/22 memantine 5 mg-10 mg tablets in a dose pack 10 tab PO BID 07/22/22 ondansetron 4 mg disintegrating tablet 4 mg PO Q8H PRN nausea and vomiting #10 tabs 07/22/22 amitriptyline 10 mg tablet 10 mg PO QHS 07/23/22 ascorbic acid (vitamin C) 1,000 mg tablet,extended release (Vitamin C ER) 1,000 mg PO BREAKFAST 07/23/22 food supplemt, lactose-reduced 0.08 gram-1.5 kcal/mL oral liquid 120 ml PO 4X/DAY #0 mL 07/28/22 methenamine hippurate 1 gram tablet 1 g PO BID 30 days #60 tabs 07/28/22 aripiprazole 2 mg tablet 2 mg PO DAILY #30 tabs 08/12/22 aspirin 81 mg chewable tablet 81 mg PO DAILY #1 TAB 08/12/22 atorvastatin 40 mg tablet 40 mg PO QHS #30 tabs 08/12/22 lactose-reduced food with fiber 0.06 gram-1.5 kcal/mL oral liquid (Jevity 1.5 Carlos) 250 ml G-tube HS #0 mL 08/12/22 lactose-reduced food with fiber 0.06 gram-1.5 kcal/mL oral liquid (Jevity 1.5 Carlos) 250 ml G-tube TIDPC #0 mL 08/12/22 levetiracetam 500 mg tablet (Keppra) 500 mg PO BID #60 tabs 08/12/22 promethazine 25 mg tablet 25 mg PO Q6H PRN nausea and vomiting #30 tabs 08/12/22 promethazine 6.25 mg/5 mL oral syrup 6.25 mg (5 mL) PO .AD PRN nausea and vom iting #240 mL 08/12/22 Hospital Course Operations None Procedures Peg tube placement Summary of Care Provided Minutes Spent on Discharge: 31 Hospital Course: 67-year-old white female was brought into the emergency room at [facility] for evaluation of mental status change, patient has a history of multiple sclerosis and has cognitive impairment. CT of the brain was obtained which was negative for bleed, patient was discussed with the stroke neurologist who agreed that the patient was not a tPA candidate, labs showed mild dehydration and there was concern for a urinary tract infection but the patient has a chronic indwelling Maldonado catheter. Her was concerned due to an episode of movements of the patient's head to the right which she shared with the emergency room physician, there were concerns that this was actually a partial seizure. Patient was admitted to PCU with concerns of acute encephalopathy and acute urinary tract infection, she was seen in consultation by infectious diseases, patient's urine culture grew out Jackelyn, patient's IV antibiotics were stopped. Patient was seen by nutritional services as well as PT and OT, it was felt that the patient had an element of malnutrition and it was recommended that the patient have a PEG tube inserted, general surgery inserted a PEG tube for supplemental nutritional support. Patient's mental status improved during her hospitalization, the etiology of the encephalopathy was unclear, patient was kept on seizure medications due to concerns regarding a possible partial seizure disorder. On 08/12/2022, patient was seen and examined:Constitutional Narrative: Patient appears unwell, she appears lethargic HEENT head/scalp atraumatic Eyes EOMs intact bilaterally and conjunctivae normal Neck supple and no JVD Resp normal respiratory effort, no retractions, no use of accessory muscles and clear to auscultation bilaterally Cardio regular rate, regular rhythm, S1 normal heart sound, S2 normal heart sound and no murmurs GI normal to inspection, nondistended, normoactive bowel sounds and soft to palpation Extremity no clubbing, cyanosis or edema Extremity Narrative: Patient has lower extremity atrophy Skin no rashes or lesions noted, no wounds, skin turgor normal, no jaundice, no petechiae and no mottling Neuro oriented x3 and CN's II-XII intact bilaterally Neuro Narrative: Patient has generalized weakness and debility Psych Psych Narrative: Patient has blunted affect Patient was felt to be stable for discharge home on 08/12/2022. Weight / BMI Weight Weight: 62.4 kg Body Mass Index (BMI) 19.7 ABG / Lab / Microbiology Data Result Diagrams: 08/10/22 05:45 08/10/22 05:45 Microbiology: Microbiology 08/03/22 12:20 Urine Catheter - Maldonado Urine Culture - Final Jackelyn albicans 08/03/22 14:23 Blood Culture (Wb) - Port Blood Culture - Final No growth in 5 days. 08/03/22 15:00 Blood Culture (Wb) - Port Blood Culture - Final No growth in 5 days. D/C Instructions Discharge Diet: - (Moist pur?ed, feed by teaspoon, oral care after meal) Meaningful Use Info Meaningful Use Diagnoses (Choose all that apply): None applicable Discharge Plan Admission Admit Date/Time: 08/03/22 14:05 Primary Reason for Your Visit: Acute encephalopathy Attending Provider: Samir Lerner Primary Care Provider: Alexandria Carranza Consulting Providers: Laura Warren ; Amari Zamarripa ; Nia Orourke ; Ted Wright Instructions Additional Instructions / Restrictions: [facility] telestroke was recontacted giving image findings with aneurysm with recommendation for outpatient follow-up with vascular surgery versus neurosurgery with no acute interventions necessary at this time(Incidental carotid bifurcations bilaterally, incidental 7.7 mm x 5.7 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 Please take 500 mg twi ce daily and I will be importantly follow-up with your outpatient neurologist for an ambulatory EEG -She requires oral care after all meals/snacks, then after 30 minutes she is ok for THIN WATER ONLY by tsp with total feeding assistance. Small Bites, Liquid by Teaspoon Only, Slow Rate. Puree Textures, Pudding-thick Liquids -He was started on atorvastatin due to an old stroke seen on your MRI ? Your medications were adjusted as they can contribute to confusion and also several can lower the seizure threshold. A complete list of active medications will be provided for you Use tube feedings as directed Discharge Orders/Prescriptions Prescriptions: New aripiprazole 2 mg Tablet 2 mg PO DAILY Qty: 30 0RF Jevity 1.5 Carlos 0.06 gram-1.5 kcal/mL Liquid 250 ml G-tube HS Qty: 0 0RF Jevity 1.5 Carlos 0.06 gram-1.5 kcal/mL Liquid 250 ml G-tube TIDPC Qty: 0 0RF levetiracetam [Keppra] 500 mg tablet 500 mg PO BID Qty: 60 0RF promethazine 6.25 mg/5 mL syrup 6.25 mg PO .AD PRN (Reason: nausea and vomiting) Qty: 240 0RF Rx Instructions: 5-10 ml Q6H prn nausea atorvastatin 40 mg Tablet 40 mg PO QHS Qty: 30 0RF aspirin 81 mg tablet,chewable 81 mg PO DAILY Qty: 1 0RF promethazine 25 mg tablet 25 mg PO Q6H PRN (Reason: nausea and vomiting) Qty: 30 0RF Rx Instructions: 1/2-1 Q6H prn Continued bisacodyl 10 MG suppository 10 mg RECTAL DAILY acetaminophen 500 MG tablet 1,000 mg PO Q6H PRN PRN (Reason: Pain) lactulose 20 GM/30 ML solution 60 gm PO QHS Rx Instructions: QHS polysaccharide iron complex 150 MG capsule 150 mg PO DAILY baclofen 20 MG tablet 20 mg PO TID melatonin 5 MG capsule 10 mg PO QHS magnesium oxide 400 MG tablet 400 mg PO QHS mirtazapine 15 MG tablet 45 mg PO QHS unxpjdiilbg-B7-Odyowzyxe serr 1 EACH tablet 1 tab PO DAILY vitamin B complex-folic acid 0.4 MG tablet 1 tab PO DAILY ysjnj-uk-4-thg-mfn-vticwnz-ast 1 EACH capsule 1 ea PO BID methylphenidate HCl [Ritalin] 10 mg Tablet 10 mg PO DAILY donepezil 10 mg Tablet 10 mg PO QHS lnifhjh-ntue-oxzvp-oreg-capryl 100 mg-150 mg- 50 mg-150 mg Capsule 2 cap PO BID cholecalciferol (vitamin D3) 1,250 mcg (50,000 unit) capsule 50,000 unit PO QMONTH ihdsfzwi-chhrhou-mmji-lutein Tablet 1 tab PO DAILY cinacalcet 30 mg tablet 30 mg PO QODAY Label Comments: TAKE 1 TABLET BY MOUTH EVERY OTHER DAY WITH FOOD nystatin 100,000 unit/mL Suspension 500,000 unit PO 4X/DAY 5 Days Qty: 100 0RF fexofenadine 180 mg Tablet 180 mg PO DAILY memantine 5-10 mg tablets,dose pack 10 tab PO BID ondansetron 4 mg tablet,disintegrating 4 mg PO Q8H PRN (Reason: nausea and vomiting) Qty: 10 0RF Vitamin C 1,000 mg Tablet Extended Release 1,000 mg PO BREAKFAST amitriptyline 10 mg Tablet 10 mg PO QHS food supplemt, lactose-reduced 0.08 gram-1.5 kcal/mL Liquid 120 ml PO 4X/DAY Qty: 0 0RF methenamine hippurate 1 gram tablet 1 g PO BID 30 Days Qty: 60 0RF Referrals / Follow Up: Alexandria Carranza MD [Primary Care Provider] - 08/14/22 1:00 pm Disposition Disposition (needs filled in before D/C Order can be placed): Home Health Ser vice Charges/Coding Visit Charges Inpatient E&M: 96750 Disch Hosp
== END 2022-08-12 15:03 | disposition home health service (06) | DRG 100 ==
LOC: ED 14:08 → PCU 14:32
PROVIDERS: Internal Medicine; Surgery; Admitting Provider Family Medicine; Emergency Provider Emergency Medicine; PCP Internal Medicine; Visit Provider Internal Medicine
PROC: 0DJ08ZZ Inspection of Upper Intestinal Tract, Via Natural or Artificial Opening Endoscopic (ICD-10-PCS; CPT 43235; principal; 2022-08-10 13:10)
DX: G40.109 Localization-related (focal) (partial) symptomatic epilepsy and epileptic syndromes with simple partial seizures, not intractable, without status epilepticus (principal); G93.41 Metabolic encephalopathy; E44.0 Moderate protein-calorie malnutrition; N18.30 Chronic kidney disease, stage 3 unspecified; G35 Multiple sclerosis; Z93.1 Gastrostomy status; D50.9 Iron deficiency anemia, unspecified; E78.5 Hyperlipidemia, unspecified; I12.9 Hypertensive chronic kidney disease with stage 1 through stage 4 chronic kidney disease, or unspecified chronic kidney disease; E87.6 Hypokalemia; K31.7 Polyp of stomach and duodenum; E86.0 Dehydration; F44.4 Conversion disorder with motor symptom or deficit; R13.10 Dysphagia, unspecified; F32.A Depression, unspecified; Z99.3 Dependence on wheelchair; Z86.73 Personal history of transient ischemic attack (TIA), and cerebral infarction without residual deficits
CPT/HCPCS: 36415; 36591; 70450; 70496; 70498; 70553; 71045; 74230; 80048; 80053; 80202; 81001; 82607; 82728; 82746; 83540; 83550; 83735; 84145; 84439; 84443; 84484; 85025; 85610; 85730; 87040; 87086; 87088; 88305; 88342; 92507; 92523; 92526; 92610; 92611; 93005; 95819; 97110; 97162; 97166; 97530; 97535; 97802; 97803; 99285; A9575; J7030; J7050; J7120; Q9967; A4216; J2405

== ENCOUNTER 2022-09-09 19:43 | Emergency (ER) | payer MEDICARE, SELFPAY ==
[2022-09-09 19:44] VITALS: BP 135/78; PULSE 74; RESP 15; RESP 17; TEMP 36.6; O2SAT 99; BMI 20.8
--- NOTE | 2022-09-09 20:52 | EX.ED.DYSGE1 ---
HPI History of Present Illness Chief Complaint: Other, Pain/Inj Detail of Chief Complaint: Feeding tube came out Informant: spouse/S.O. Onset/Context/Timing Onset: Today and Hours Context: Sudden Onset Timing: Continuous Narrative Narrative: 67-year-old female debilitated from severe MS. Has a history of aspiration and chronic kidney disease. Around 4 weeks [address] Amari Zamarripa placed a feeding tube. was feeding her today and cleaning the area and accidentally the tube got pulled out. They came to have another 1 replaced. She has not had recent illness. Prior similar symptoms: No Recent Illness/Hospitalization: Yes [facility] Medical History Alcohol use Allergic rhinitis Back pain Bilateral hydronephrosis Blackout Chronic constipation CKD (chronic kidney disease) stage 4, GFR 15-29 ml/min Complicated urinary tract infection Constipation Declining functional status Dental bridge present Depression Difficulty swallowing Endometrial thickening on ultrasound History of echocardiogram History of edema History of wrist fracture Hyperlipidemia Hypertension Indwelling urethral catheter present Insomnia Iron deficiency anemia Loss of hearing Low iron Migraine headache Migraine headache MRSA colonization Multiple sclerosis Multiple sclerosis Muscle spasm Neurogenic bladder Non-smoker OAB (overactive bladder) Pelvic pain Port-A-Cath in place Right hemiparesis Urinary tract infection Uses wheelchair Vitamin D deficiency Wears glasses Home Medications bisacodyl 10 mg rectal suppository 10 mg RECTAL DAILY constipation 07/01/18 [History Last Taken 11/24/21] acetaminophen 500 mg tablet 1,000 mg PO Q6H PRN PRN Pain 02/15/19 [History Last Taken 03/25/19] lactulose 20 gram/30 mL oral solution 60 gm PO QHS constipation 03/25/19 [History Last Taken 11/23/21] baclofen 20 mg tablet 20 mg PO TID MUSCLE 05/23/19 [History Last Taken 11/24/21] magnesium oxide 400 mg (241.3 mg magnesium) tablet 400 mg PO QHS magnesium supplement 05/23/19 [History Last Taken 11/23/21] melatonin 5 mg capsule 10 mg PO QHS sleep 05/23/19 [History Last Taken 11/23/21] polysaccharide iron complex 150 mg iron capsule 150 mg PO DAILY iron replacement 05/23/19 [History Last Taken 11/24/21] glucosamine HCh-E0-Bsmzpgmrr zoey 1,500 mg-400 unit-100 mg tablet 1 tab PO DAILY supplement 11/15/20 [History Last Taken Unknown] krill 1,000 mg-omega-3 170 mg-dha 50 mg-epa 80 ob-ayzsfa-cazmp capsule 1 ea PO BID supplement 11/15/20 [History Last Taken Unknown] mirtazapine 15 mg tablet 45 mg PO QHS 11/15/20 [History Last Taken 11/23/21] vitamin B complex-folic acid 0.4 mg tablet 1 tab PO DAILY vitamin 11/15/20 [History Last Taken 11/24/21] cholecalciferol (vitamin D3) 1,250 mcg (50,000 unit) capsule 50,000 unit PO QMONTH vitamin 08/15/21 [History Last Taken 2 Weeks Ago ~11/10/21] donepezil 10 mg tablet 10 mg PO QHS memory 08/15/21 [History Last Taken 11/23/21] methylphenidate HCl 10 mg tablet (Ritalin) 10 mg PO DAILY 08/15/21 [History Last Taken 11/24/21] tumeric 100 mg-tristian 150 mg-olive 50 mg-oreg 150 mg-caprylate capsule 2 cap PO BID supplement 08/15/21 [History Last Taken 11/23/21] cinacalcet 30 mg tablet 30 mg PO QODAY hyperparathyroidism 11/24/21 [History Last Taken 11/23/21] ivfafiyl-ziyacck-gzbr-lutein tablet 1 tab PO DAILY SUPPLEMENT 11/24/21 [History Last Taken 11/23/21] nystatin 100,000 unit/mL oral suspension 500,000 unit (5 mL) PO 4X/DAY 5 days #100 mL 11/27/21 [Rx Last Taken Unknown] fexofenadine 180 mg tablet 180 mg PO DAILY 07/22/22 [History Last Taken Unknown] memantine 5 mg-10 mg tablets in a dose pack 10 tab PO BID 07/22/22 [History Last Taken Unknown] ondansetron 4 mg disintegrating tablet 4 mg PO Q8H PRN nausea and vomiting #10 tabs 07/22/22 [Rx Last Taken Unknown] amitriptyline 10 mg tablet 10 mg PO QHS 07/23/22 [History Last Taken Unknown] ascorbic acid (vitamin C) 1,000 mg tablet,extended release (Vitamin C ER) 1,000 mg PO BREAKFAST 07/23/22 [History Last Taken Unknown] food supplemt, lactose-reduced 0.08 gram-1.5 kcal/mL oral liquid 120 ml PO 4X/DAY #0 mL 07/28/22 [Rx Last Taken Unknown] methenamine hippurate 1 gram tablet 1 g PO BID 30 days #60 tabs 07/28/22 [Rx Last Taken Unknown] aripiprazole 2 mg tablet 2 mg PO DAILY #30 tabs 08/12/22 [Rx Last Taken Unknown] aspirin 81 mg chewable tablet 81 mg PO DAILY #1 TAB 08/12/22 [Rx Last Taken Unknown] atorvastatin 40 mg tablet 40 mg PO QHS #30 tabs 08/12/22 [Rx Last Taken Unknown] lactose-reduced food with fiber 0.06 gram-1.5 kcal/mL oral liquid (Jevity 1.5 Carlos) 250 ml G-tube HS #0 mL 08/12/22 [Rx Last Taken Unknown] lactose-reduced food with fiber 0.06 gram-1.5 kcal/mL oral liquid (Jevity 1.5 Carlos) 250 ml G-tube TIDPC #0 mL 08/12/22 [Rx Last Taken Unknown] levetiracetam 500 mg tablet (Keppra) 500 mg PO BID #60 tabs 08/12/22 [Rx Last Taken Unknown] promethazine 25 mg tablet 25 mg PO Q6H PRN nausea and vomiting #30 tabs 08/12/22 [Rx Last Taken Unknown] promethazine 6.25 mg/5 mL oral syrup 6.25 mg (5 mL) PO .AD PRN nausea and vomiting #240 mL 08/12/22 [Rx Last Taken Unknown] Allergy/AdvReac Type Severity Reaction Status Date / Time ciprofloxacin [From Cipro] AdvReac hypotension Verified 07/23/22 17:59 dextrose 5 % in water AdvReac Other Verified 07/23/22 17:59 [From Zyvox] doxycycline AdvReac hypotension Verified 07/23/22 17:59 levofloxacin [From Levaquin] AdvReac hypotension Verified 07/23/22 17:59 linezolid [From Zyvox] AdvReac Other Verified 07/23/22 17:59 morphine AdvReac hallucinati Verified 07/23/22 17:59 ons piperacillin [From Zosyn] AdvReac hypotension Verified 07/23/22 17:59 sulfamethoxazole AdvReac hypotension Verified 07/23/22 17:59 [From Bactrim] tazobactam [From Zosyn] AdvReac hypotension Verified 07/23/22 17:59 trimethoprim [From Bactrim] AdvReac hypotension Verified 07/23/22 17:59 vancomycin AdvReac developed Verified 07/23/22 17:59 toxic levels Family History Mother Osteoporosis Grandmother Breast cancer Surgical History H/O cervical polypectomy H/O dilation and curettage History of cystoscopy History of esophagogastroduodenoscopy (EGD) History of tonsillectomy and adenoidectomy History of tympanoplasty Hx of hand surgery Hx of shoulder surgery S/P laparoscopic procedure Social History household members: spouse housing: house Smoking Status: Never smoker alcohol intake: never substance use type: does not use what type of physical activity do you participate in: none seatbelt use: always do you feel safe at home: Yes 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 History per the . Patient debilitated from her MS. Review of Systems ROS Unobtainable: Denies due to encephalopathy Constitutional Constitutional ED: Denies chills or fever(s) Eyes Eyes: Denies blurry vision ENT ENT ED: Denies ear pain Cardiovascular Cardiovascular: Denies chest pain Respiratory/Chest Respiratory/Chest: Denies cough Gastrointestinal Gastrointestinal: Denies abdominal pain Genitourinary Genitourinary ED: Denies dysuria Musculoskeletal Musculoskeletal: Denies arthralgias Integumentary Denies abscess Neurologic Neurologic: Denies headache(s) Psychiatric Psychiatric: Denies anxiety Endocrine Endocrinology: Denies cold intolerance Hematologic/Lymphatic Hematologic/Lymphatic: Reports none Allergic/Immunologic Allergic/Immunologic ED: Denies mouth swelling or tongue swelling EXAM Physical Exam Narrative Exam Narrative: 67-year-old female no acute distress vital signs stable afebrile. H EENT exam unremarkable. Neck nontender. Lungs clear to auscultation. Heart regular rhythm rate about 75 no murmur. Abdomen soft nondistended normal bowel sounds no peritoneal signs. Feeding tube ostomy site is empty. She does have a suprapubic catheter in place. Extremities muscular atrophy. Neurologically she is awake. Her eyes are open. She has limited movement due to her MS. Limited speech. Const Vital Signs: 09/09/22 19:44 09/09/22 19:44 09/09/22 19:47 Temperature 97.8 F Temperature Source Temporal Pulse Rate 74 Respiratory Rate 15 17 Respiratory Effort Normal Blood Pressure 135/78 H Blood Pressure Mean 97 Pulse Ox 99 Oxygen Delivery Method Room Air Positive well nourished and well developed; Negative for cachectic, contractures or unkempt General Appearance ED: well developed and NAD; Negative for unkempt, cachectic, contractures, cyanotic or diaphoretic Nutritional Appearance: Negative for cachectic HEENT Reports moist mucous membranes; Denies dry mucous membranes Negative for trauma or tenderness Mouth ED: No dry mucous membranes Mouth: No dry mucous membranes Eyes PERRL and EOMs intact bilaterally General Eye ED: Negative for pale conjunctiva or scleral icterus Neck no lymphadenopathy, supple and no JVD General: Negative for tenderness Lymph Lymphatic: Negative for other Chest Wall inspection of chest normal and palpation of chest normal Chest: Negative for other Resp normal respiratory effort and clear to auscultation bilaterally Effort and Inspection: Negative for retractions Auscultation: Negative for rales, rhonchi or wheezes Cardio regular rate, regular rhythm, S1 normal heart sound, S2 normal heart sound and no murmurs Palpation: Negative for palpable S3 Rate: Negative for bradycardia or tachycardic Rhythm: Negative for abnormal rhythm GI normal to inspection, nondistended, normoactive bowel sounds, non-tender, non-distended and no masses Inspection: Negative for abdominal distention Auscultation: normoactive bowel sounds Palpation: soft; Negative for tender or guarding Back/Spine no CVA tenderness Neuro Sensorium / Orientation: alert Motor Exam: general weakness Psych mental status grossly normal Appearance: Negative for unkempt Attitude: No agitated Mood & Affect: Negative for depressed, anxious or tearful Skin no rashes or lesions noted and no wounds Lesions: No lesion noted Rashes: No rashes noted Trauma: Negative for abrasion Wounds: Negative for wounds noted MDM MDM MDM Narrative Medical decision making narrative: 67-year-old debilitated from MS feeding tube placed 4 weeks ago came out today. I was able to replace the feeding tube with a 20 Pakistani PEG tube. It went in without any difficulty and immediate gastric contents came through the tube so I knew it was in place. Patient be discharged home. will follow-up with her surgeon Dr. Amari Zamarripa to decide if he wants to keep our PEG tube it or change it. Procedures Other Procedures Procedure(s): Placed a 20 Pakistani PEG tube without any difficulty. Patient tolerated procedure well. Discharge Plan Triage Chief Complaint: Other, Pain/Inj ED Provider: Maxx Madrid Dx/Rx/DC Orders Clinical Impression: Complication of feeding tube, History of multiple sclerosis Prescriptions: No Action bisacodyl 10 MG suppository 10 mg RECTAL DAILY acetaminophen 500 MG tablet 1,000 mg PO Q6H PRN PRN (Reason: Pain) lactulose 20 GM/30 ML solution 60 gm PO QHS Rx Instructions: QHS polysaccharide iron complex 150 MG capsule 150 mg PO DAILY baclofen 20 MG tablet 20 mg PO TID melatonin 5 MG capsule 10 mg PO QHS magnesium oxide 400 MG tablet 400 mg PO QHS mirtazapine 15 MG tablet 45 mg PO QHS ncymynzxmcf-N1-Dcsahfzlb serr 1 EACH tablet 1 tab PO DAILY vitamin B complex-folic acid 0.4 MG tablet 1 tab PO DAILY knfmf-kk-4-czu-okn-hlzjxol-ast 1 EACH capsule 1 ea PO BID methylphenidate HCl [Ritalin] 10 mg Tablet 10 mg PO DAILY donepezil 10 mg Tablet 10 mg PO QHS pmlwvyz-faqa-yxsht-oreg-capryl 100 mg-150 mg- 50 mg-150 mg Capsule 2 cap PO BID cholecalciferol (vitamin D3) 1,250 mcg (50,000 unit) capsule 50,000 unit PO QMONTH henmaxht-vibryqu-ardj-lutein Tablet 1 tab PO DAILY cinacalcet 30 mg tablet 30 mg PO QODAY Label Comments: TAKE 1 TABLET BY MOUTH EVERY OTHER DAY WITH FOOD nystatin 100,000 unit/mL Suspension 500,000 unit PO 4X/DAY 5 Days Qty: 100 0RF fexofenadine 180 mg Tablet 180 mg PO DAILY memantine 5-10 mg tablets,dose pack 10 tab PO BID ondansetron 4 mg tablet,disintegrating 4 mg PO Q8H PRN (Reason: nausea and vomiting) Qty: 10 0RF Vitamin C 1,000 mg Tablet Extended Release 1,000 mg PO BREAKFAST amitriptyline 10 mg Tablet 10 mg PO QHS food supplemt, lactose-reduced 0.08 gram-1.5 kcal/mL Liquid 120 ml PO 4X/DAY Qty: 0 0RF methenamine hippurate 1 gram tablet 1 g PO BID 30 Days Qty: 60 0RF aripiprazole 2 mg Tablet 2 mg PO DAILY Qty: 30 0RF Jevity 1.5 Carlos 0.06 gram-1.5 kcal/mL Liquid 250 ml G-tube HS Qty: 0 0RF Jevity 1.5 Carlos 0.06 gram-1.5 kcal/mL Liquid 250 ml G-tube TIDPC Qty: 0 0RF levetiracetam [Keppra] 500 mg tablet 500 mg PO BID Qty: 60 0RF promethazine 6.25 mg/5 mL syrup 6.25 mg PO .AD PRN (Reason: nausea and vomiting) Qty: 240 0RF Rx Instructions: 5-10 ml Q6H prn nausea atorvastatin 40 mg Tablet 40 mg PO QHS Qty: 30 0RF aspirin 81 mg tablet,chewable 81 mg PO DAILY Qty: 1 0RF promethazine 25 mg tablet 25 mg PO Q6H PRN (Reason: nausea and vomiting) Qty: 30 0RF Rx Instructions: 1/2-1 Q6H prn Primary Care Provider: Alexandria Carranza Referrals: Alexandria Carranza MD [Primary Care Provider] - Amari Zamarripa MD [Med Staff - Active Staff] - As soon as possible Activity Restrictions/Additional Instructions: Call and follow-up with Dr. Amari Zamarripa. Disposition Disposition: Home, Self Care
== END 2022-09-09 22:29 | disposition home or self-care (01) ==
PROVIDERS: Emergency Provider Emergency Medicine; PCP Internal Medicine; Visit Provider Emergency Medicine
DX: Z43.4 Encounter for attention to other artificial openings of digestive tract (principal); G35 Multiple sclerosis; N18.4 Chronic kidney disease, stage 4 (severe)
CPT/HCPCS: 99284

== ENCOUNTER 2022-09-10 16:22 | Emergency (ER) | payer MEDICARE, SELFPAY ==
[2022-09-10 16:23] VITALS: BP 115/63; PULSE 64; RESP 16; TEMP 36.4; O2SAT 99; BMI 20.8
--- NOTE | 2022-09-10 16:52 | EX.ED.DYSGE1 ---
HPI History of Present Illness Chief Complaint: Other, Pain/Inj Narrative Narrative: 67-year-old female with past medical history of severe multiple sclerosis, gets her nutrition and medications through a PEG tube. She presents with her who is a retired RN also like the patient. He states that a month ago Dr. Zamarripa had changed her PEG tube. He was cleaning it the other day when it became dislodged. They state that they were in the emergency department yesterday evening and had it replaced by Dr. Madrid. noted that approximately 3 hours ago he noticed that the PEG tube had become dislodged again. To come sue Lazo fell out of the patient's abdomen. He called Dr. Zamarripa and they were told to come to the emergency department. He adds additionally that he suggested that replacement to be confirmed with x-ray. They are here for replacement PEG tube. He is unsure what size it was. [facility] Medical History Alcohol use Allergic rhinitis Back pain Bilateral hydronephrosis Blackout Chronic constipation CKD (chronic kidney disease) stage 4, GFR 15-29 ml/min Complicated urinary tract infection Constipation Declining functional status Dental bridge present Depression Difficulty swallowing Endometrial thickening on ultrasound History of echocardiogram History of edema History of wrist fracture Hyperlipidemia Hypertension Indwelling urethral catheter present Insomnia Iron deficiency anemia Loss of hearing Low iron Migraine headache Migraine headache MRSA colonization Multiple sclerosis Multiple sclerosis Muscle spasm Neurogenic bladder Non-smoker OAB (overactive bladder) Pelvic pain Port-A-Cath in place Right hemiparesis Urinary tract infection Uses wheelchair Vitamin D deficiency Wears glasses Home Medications bisacodyl 10 mg rectal suppository 10 mg RECTAL DAILY constipation 07/01/18 [History Last Taken 11/24/21] acetaminophen 500 mg tablet 1,000 mg PO Q6H PRN PRN Pain 02/15/19 [History Last Taken 03/25/19] lactulose 20 gram/30 mL oral solution 60 gm PO QHS constipation 03/25/19 [History Last Taken 11/23/21] baclofen 20 mg tablet 10 mg PO BID MUSCLE 05/23/19 [History Last Taken 11/24/21] magnesium oxide 400 mg (241.3 mg magnesium) tablet 400 mg PO QHS magnesium supplement 05/23/19 [History Last Taken 11/23/21] melatonin 5 mg capsule 10 mg PO QHS sleep 05/23/19 [History Last Taken 11/23/21] polysaccharide iron complex 150 mg iron capsule 150 mg PO DAILY iron replacement 05/23/19 [History Last Taken 11/24/21] glucosamine YPx-S7-Hkuoqqvwo zoey 1,500 mg-400 unit-100 mg tablet 1 tab PO DAILY supplement 11/15/20 [History Last Taken Unknown] krill 1,000 mg-omega-3 170 mg-dha 50 mg-epa 80 yt-yuobrl-qemkk capsule 1 ea PO BID supplement 11/15/20 [History Last Taken Unknown] mirtazapine 15 mg tablet 45 mg PO QHS 11/15/20 [History Last Taken 11/23/21] vitamin B complex-folic acid 0.4 mg tablet 1 tab PO DAILY vitamin 11/15/20 [History Last Taken 11/24/21] cholecalciferol (vitamin D3) 1,250 mcg (50,000 unit) capsule 50,000 unit PO QMONTH vitamin 08/15/21 [History Last Taken 2 Weeks Ago ~11/10/21] tumeric 100 mg-tristian 150 mg-olive 50 mg-oreg 150 mg-caprylate capsule 2 cap PO BID supplement 08/15/21 [History Last Taken 11/23/21] cinacalcet 30 mg tablet 30 mg PO QODAY hyperparathyroidism 11/24/21 [History Last Taken 11/23/21] pabvdjfj-oehecwd-ysbl-lutein tablet 1 tab PO DAILY SUPPLEMENT 11/24/21 [History Last Taken 11/23/21] nystatin 100,000 unit/mL oral suspension 500,000 unit (5 mL) PO 4X/DAY 5 days #100 mL 11/27/21 [Rx Last Taken Unknown] fexofenadine 180 mg tablet 180 mg PO DAILY 07/22/22 [History Last Taken Unknown] ondansetron 4 mg disintegrating tablet 4 mg PO Q8H PRN nausea and vomiting #10 tabs 07/22/22 [Rx Last Taken Unknown] ascorbic acid (vitamin C) 1,000 mg tablet,extended release (Vitamin C ER) 1,000 mg PO BREAKFAST 07/23/22 [History Last Taken Unknown] food supplemt, lactose-reduced 0.08 gram-1.5 kcal/mL oral liquid 120 ml PO 4X/DAY #0 mL 07/28/22 [Rx Last Taken Unknown] atorvastatin 40 mg tablet 40 mg PO QHS #30 tabs 08/12/22 [Rx Last Taken Unknown] promethazine 6.25 mg/5 mL oral syrup 6.25 mg (5 mL) PO .AD PRN nausea and vomiting #240 mL 08/12/22 [Rx Last Taken Unknown] baclofen 20 mg tablet 20 mg PO QHS 09/10/22 [History Last Taken Unknown] levetiracetam 250 mg tablet (Keppra) 250 mg PO DAILY 09/10/22 [History Last Taken Unknown] levetiracetam 500 mg tablet (Keppra) 500 mg PO QHS 09/10/22 [History Last Taken Unknown] Allergy/AdvReac Type Severity Reaction Status Date / Time ciprofloxacin [From Cipro] AdvReac hypotension Verified 09/10/22 16:25 dextrose 5 % in water AdvReac Other Verified 09/10/22 16:25 [From Zyvox] doxycycline AdvReac hypotension Verified 09/10/22 16:25 levofloxacin [From Levaquin] AdvReac hypotension Verified 09/10/22 16:25 linezolid [From Zyvox] AdvReac Other Verified 09/10/22 16:25 morphine AdvReac hallucinati Verified 09/10/22 16:25 ons piperacillin [From Zosyn] AdvReac hypotension Verified 09/10/22 16:25 sulfamethoxazole AdvReac hypotension Verified 09/10/22 16:25 [From Bactrim] tazobactam [From Zosyn] AdvReac hypotension Verified 09/10/22 16:25 trimethoprim [From Bactrim] AdvReac hypotension Verified 09/10/22 16:25 vancomycin AdvReac developed Verified 09/10/22 16:25 toxic levels Family History Mother Osteoporosis Grandmother Breast cancer Surgical History H/O cervical polypectomy H/O dilation and curettage History of cystoscopy History of esophagogastroduodenoscopy (EGD) History of tonsillectomy and adenoidectomy History of tympanoplasty Hx of hand surgery Hx of shoulder surgery S/P laparoscopic procedure Social History household members: spouse housing: house Smoking Status: Never smoker alcohol intake: never substance use type: does not use what type of physical activity do you participate in: none seatbelt use: always do you feel safe at home: Yes 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 Constitutional: No fever, no chills. HEENT: No sore throat. No neck pain. No loss of vision. No rhinorrhea. Cardiovascular: No chest pain. No palpitations. No pedal edema. Respiratory: No cough, no shortness of breath. Abdominal: No abdominal pain. No nausea. No vomiting. Positive dislodgment of PEG tube. Genitourinary: No dysuria. No hematuria. Musculoskeletal: No myalgias. No arthralgias. Neurologic: No headaches. No dizziness. No lightheadedness. Skin: No rash. No change in color. Psychiatric: No depression. No anxiety. EXAM Physical Exam Narrative Exam Narrative: Afebrile. Vital signs noted. HEENT: Normocephalic. Atraumatic. PERRL, EOMI. Neck soft and supple. No point tenderness or step off. Cardiovascular: Regular rate and rhythm. No murmurs, rubs, or gallops appreciated. Respiratory: No tachypnea. Lungs clear to auscultation bilaterally. Gastrointestinal: Abdomen soft, nontender, with normoactive bowel sounds. Positive orifice where PEG tube had been placed, small amount of blood noted around. No rebound or guarding. Neurological: Awake. Alert. Consistent with MS. Skin: No rash. Normal color. No pallor. Musculoskeletal: No pedal edema. Full range of motion extremities. Const Vital Signs: 09/10/22 16:23 09/10/22 16:46 Temperature 97.6 F L Temperature Source Temporal Pulse Rate 64 Respiratory Rate 16 Respiratory Effort Normal Respiratory Pattern Normal Blood Pressure 115/63 Blood Pressure Mean 80 Pulse Ox 99 Oxygen Delivery Method Room Air MDM MDM MDM Narrative Medical decision making narrative: I reviewed the patient's prior record. Dr. Madrid stated that 20 Djiboutian PEG tube had been inserted. I inserted a 20 [place]ian PEG tube without difficulty. 6 mL of normal saline were inserted into the balloon. Gastrografin KUB x-ray was interpreted by myself as good placement and no extravasation of Gastrografin. Radiology confirmed this. At this point in time, I had discussed patient with Dr. Zamarripa. It was felt that she be discharged safely home with continued use of her feeding tube for hydration and for her medications. Disposition is discharged home in improved and stable condition. Radiography Chest X-Ray - ED: Read by ED Physician Diagnostic Testing: Clinical Impression(s) from Imaging Studies KUB X-Ray 09/10/22 17:40 IMPRESSION: PEG tube projecting within the mid to distal stomach without evidence of extravasation of contrast. Electronically Signed: Bill Pereira MD at 18:07 EST , Discharge Plan Triage Chief Complaint: Other, Pain/Inj ED Provider: Tre Pineda Dx/Rx/DC Orders Clinical Impression: PEG (percutaneous endoscopic gastrostomy) adjustment/replacement/removal, Multiple sclerosis Instructions: ED Feeding Tube Replacement Prescriptions: No Action bisacodyl 10 MG suppository 10 mg RECTAL DAILY acetaminophen 500 MG tablet 1,000 mg PO Q6H PRN PRN (Reason: Pain) lactulose 20 GM/30 ML solution 60 gm PO QHS Rx Instructions: QHS polysaccharide iron complex 150 MG capsule 150 mg PO DAILY baclofen 20 MG tablet 10 mg PO BID melatonin 5 MG capsule 10 mg PO QHS magnesium oxide 400 MG tablet 400 mg PO QHS mirtazapine 15 MG tablet 45 mg PO QHS uxopywgnymx-D2-Soamczsil serr 1 EACH tablet 1 tab PO DAILY vitamin B complex-folic acid 0.4 MG tablet 1 tab PO DAILY ezwmh-eo-5-hqj-bsr-ftbfpam-ast 1 EACH capsule 1 ea PO BID idumtwu-jcyv-wireg-oreg-capryl 100 mg-150 mg- 50 mg-150 mg Capsule 2 cap PO BID cholecalciferol (vitamin D3) 1,250 mcg (50,000 unit) capsule 50,000 unit PO QMONTH yexjpvsb-kyfvlua-ntqr-lutein Tablet 1 tab PO DAILY cinacalcet 30 mg tablet 30 mg PO QODAY Label Comments: TAKE 1 TABLET BY MOUTH EVERY OTHER DAY WITH FOOD nystatin 100,000 unit/mL Suspension 500,000 unit PO 4X/DAY 5 Days Qty: 100 0RF fexofenadine 180 mg Tablet 180 mg PO DAILY ondansetron 4 mg tablet,disintegrating 4 mg PO Q8H PRN (Reason: nausea and vomiting) Qty: 10 0RF Vitamin C 1,000 mg Tablet Extended Release 1,000 mg PO BREAKFAST food supplemt, lactose-reduced 0.08 gram-1.5 kcal/mL Liquid 120 ml PO 4X/DAY Qty: 0 0RF promethazine 6.25 mg/5 mL syrup 6.25 mg PO .AD PRN (Reason: nausea and vomiting) Qty: 240 0RF Rx Instructions: 5-10 ml Q6H prn nausea atorvastatin 40 mg Tablet 40 mg PO QHS Qty: 30 0RF baclofen 20 mg Tablet 20 mg PO QHS levetiracetam [Keppra] 250 mg Tablet 250 mg PO DAILY levetiracetam [Keppra] 500 mg tablet 500 mg PO QHS Primary Care Provider: Alexandria Carranza Referrals: Alexandria Carranza MD [Primary Care Provider] - Amari Zamarripa MD [Med Staff - Active Staff] - As Needed Disposition Disposition: Home, Self Care
--- NOTE | 2022-09-10 17:40 | RAD_ITS ---
INDICATION: G tube replacement -- Gastrografin EXAMINATION/TECHNIQUE: Oral contrast was administered via the peg tube. 50 mL 50/50 Gastrografin and water inserted prior to imaging COMPARISON: None. FINDINGS: Oral contrast enters the stomach and small bowel. There is no extravasation of contrast. RAD/Abdomen Single View (Portable) IMPRESSION: PEG tube projecting within the mid to distal stomach without evidence of extravasation of contrast. Electronically Signed: Bill Pereira MD at 18:07 EST ,
[2022-09-10 18:49] VITALS: BP 120/65; PULSE 80; RESP 16; TEMP 36.6; O2SAT 98
== END 2022-09-10 18:49 | disposition home or self-care (01) ==
PROVIDERS: Emergency Provider Emergency Medicine; PCP Internal Medicine; Visit Provider Emergency Medicine
DX: K94.23 Gastrostomy malfunction (principal); G81.91 Hemiplegia, unspecified affecting right dominant side; G35 Multiple sclerosis; N18.4 Chronic kidney disease, stage 4 (severe); I12.9 Hypertensive chronic kidney disease with stage 1 through stage 4 chronic kidney disease, or unspecified chronic kidney disease; E78.5 Hyperlipidemia, unspecified; K59.09 Other constipation; N31.9 Neuromuscular dysfunction of bladder, unspecified; N32.81 Overactive bladder; F32.9 Major depressive disorder, single episode, unspecified; E55.9 Vitamin D deficiency, unspecified; G47.00 Insomnia, unspecified; Z79.899 Other long term (current) drug therapy; Z79.82 Long term (current) use of aspirin; Z99.3 Dependence on wheelchair
CPT/HCPCS: 43762; 74018; 99282; A4216

== ENCOUNTER 2022-09-15 15:22 | Observation (INO) | payer MEDICARE, SELFPAY ==
[2022-09-15] VITALS (8 sets, daily range): BP systolic 130–147; BP diastolic 80–91; PULSE 73–105; RESP 14–18; TEMP 36.2–36.9; O2SAT 92–95; BMI 21.0; BMI 19.1
[2022-09-15 16:18] LABS: Mucous, Urine 0 SEEN /hpf (<or=2+); Squamous Epithelial Cells - UA 0 SEEN /hpf (5-10)
--- NOTE | 2022-09-15 16:20 | RAD_ITS ---
STUDY: X-RAY - ABDOMEN/PELVIS REASON FOR EXAM: Female, 67 years old. vomiting TECHNIQUE: Single AP view of the abdomen / pelvis. COMPARISON: September 10, 2022 FINDINGS: Elevated right hemidiaphragm. Interposed colon beneath the right hemidiaphragm. Increased stool and gas in the colon. There is no demonstrated free abdominal air. The visualized liver, spleen and kidneys are grossly normal in size and morphology. Normal soft tissue structures. Diffuse demineralization. Mild levoconvex scoliosis. RAD/Abdomen Single View (Portable) IMPRESSION: Increased stool. Possible colonic ileus. Electronically Signed: Willy Chiu MD at 16:49 EST ,
[2022-09-15 16:22] LABS: Color, Urine Yellow (Yellow); Glucose, Dipstick Normal (Normal); Ketone-Dipstick Negative (Negative); Leukocyte Esterase-Dipstick 500 /ul (Negative); Nitrite-Dipstick Negative (Negative); Occult Blood-Urine 150 /ul (Negative); Protein-Dipstick 30 mg/dl (Negative); Urine Bilirubin Dipstick Negative (Negative); Urine Clarity Cloudy (Clear); Urine Urobilinogen Normal (Normal); Urine pH 6.5 (5.0 - 8.0)
[2022-09-15 16:30] LABS: Absolute Neutrophil Count 10.6 X10^3/uL (2.0-7.7); Basophil# 0.09 X10^3/uL; Basophil% 0.7 % (0-1); Eosinophil# 0.19 X10^3/uL; Eosinophils% 1.4 % (0-5); Hematocrit 40.5 % (37-47); Hemoglobin 12.8 g/dL (12.0-15.0); Lymphocyte % 8.2 % (19-41); Mean Corp Hgb Conc 31.6 g/dL (32-36); Mean Corpuscular Hgb 31.4 pg (27.0-32.0); Mean Corpuscular Volume 99.5 fL (81-99); Monocyte# 1.38 X10^3/uL; Monocyte% 10.3 % (0-10); NRBC Flagged by Analyzer 0 % (0-5); Neutrophil # 10.62 X10^3/uL (2.7-7.7); Platelet Count 161 K/mm3 (150-450); RBC Distribution Width CV 13.8 % (11.6-14.6); RBC Distribution Width SD 50.4 fl (35.1-43.9); Red Blood Count 4.07 M/mm3 (4.2-5.4); White Blood Count 13.4 K/mm3 (4.4-11.0)
[2022-09-15 16:32] LABS: Bacteria 2+ /hpf (None Seen); Red Blood Cells-Urine 5-10 SEEN /hpf (0-5); White Blood Cells >100 SEEN /hpf (0-5); Yeast-Urine 1+ /hpf (None Seen)
[2022-09-15 16:38] LABS: Anion Gap 5 (5-15); BUN 48 mg/dL (7-18); BUN/Creat Ratio 37.2 RATIO (10-20); Calcium,Total 9.3 mg/dL (8.5-10.1); Chloride 104 mmol/L (98-107); Creatinine, Serum 1.29 mg/dL (0.55-1.02); EST Glomerular Filtration Rate 44 mL/min (>60); Est Glom Filt Rate - Afr Amer 53 mL/min (>60); Estimated Creatinine Clearance 44.43 ml/min; Glucose 79 mg/dL (74-106); Potassium 3.8 mmol/L (3.5-5.1); Sodium Level 138 mmol/L (136-145)
--- NOTE | 2022-09-15 16:45 | EX.ED.DYSGE1 ---
HPI <EVA Pacheco - Last Filed: 09/15/22 22:02> History of Present Illness Chief Complaint: General Illness Narrative Narrative: Patient presents today with her due to an episode of vomiting that occurred earlier today. Patient has a history of MS and stage III renal disease. She does have a PEG tube that was placed on 02 September. 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 He states that her vomit consisted of undigested tube feed. She also had an episode of trembling and stated she was cold but did not have a fever at that time. She had a normal large bowel movement today and her last bowel movement was 2 days ago. She is not complaining of any abdominal pain, chest pain, or shortness of breath. states he went to flush her PEG tube today and received a lot of backflow which was abnormal. PFSH <EVA Pacheco - Last Filed: 09/15/22 22:02> [facility] Medical History Alcohol use Allergic rhinitis Back pain Bilateral hydronephrosis Blackout Chronic constipation CKD (chronic kidney disease) stage 4, GFR 15-29 ml/min Complicated urinary tract infection Constipation Declining functional status Dental bridge present Depression Difficulty swallowing Endometrial thickening on ultrasound History of echocardiogram History of edema History of wrist fracture Hyperlipidemia Hypertension Indwelling urethral catheter present Insomnia Iron deficiency anemia Loss of hearing Low iron Migraine headache Migraine headache MRSA colonization Multiple sclerosis Multiple sclerosis Muscle spasm Neurogenic bladder Non-smoker OAB (overactive bladder) Pelvic pain Port-A-Cath in place Right hemiparesis Urinary tract infection Uses wheelchair Vitamin D deficiency Wears glasses Home Medications bisacodyl 10 mg rectal suppository (Dulcolax (bisacodyl)) 10 mg RECTAL DAILY constipation 07/01/18 [History Last Taken 09/15/22] acetaminophen 500 mg tablet 1,000 mg PO Q6H PRN Pain 02/15/19 [History Last Taken 03/25/19] baclofen 20 mg tablet 10 mg PO BID MUSCLE SPASMS 05/23/19 [History Last Taken 09/15/22] magnesium oxide 400 mg (241.3 mg magnesium) tablet 400 mg PO QHS magnesium supplement 05/23/19 [History Last Taken 09/14/22] polysaccharide iron complex 150 mg iron capsule 150 mg PO DAILY iron replacement 05/23/19 [History Last Taken 09/15/22] glucosamine XBx-G4-Gtjgggivp zoey 1,500 mg-400 unit-100 mg tablet (Osteo Bi-Flex (5-Loxin)) 1 tab PO BID supplement 11/15/20 [History Last Taken 09/15/22] krill 1,000 mg-omega-3 170 mg-dha 50 mg-epa 80 si-pfijyy-wwepd capsule (krill oil) 1 ea PO BID supplement 11/15/20 [History Last Taken 09/15/22] vitamin B complex-folic acid 0.4 mg tablet (B Complex 1 (with folic acid)) 1 tab PO DAILY vitamin 11/15/20 [History Last Taken 09/15/22] cholecalciferol (vitamin D3) 1,250 mcg (50,000 unit) capsule 50,000 unit PO QMONTH vitamin 08/15/21 [History Last Taken 09/08/22] tumeric 100 mg-tirstian 150 mg-olive 50 mg-oreg 150 mg-caprylate capsule (Candicidal) 2 cap PO BID supplement 08/15/21 [History Last Taken 09/15/22] cinacalcet 30 mg tablet 30 mg PO QODAY hyperparathyroidism 11/24/21 [History Last Taken 09/14/22] fexofenadine 180 mg tablet 180 mg PO DAILY ALLERGIES 07/22/22 [History Last Taken 09/15/22] ondansetron 4 mg disintegrating tablet 4 mg PO Q8H PRN nausea and vomiting #10 tabs 07/22/22 [Rx Last Taken Unknown] ascorbic acid (vitamin C) 1,000 mg tablet,extended release (Vitamin C ER) 1,000 mg PO BREAKFAST SUPPLEMENT 07/23/22 [History Last Taken 09/15/22] baclofen 20 mg tablet 20 mg PO QPM MUSCLE SPASMS 09/10/22 [History Last Taken 09/14/22] levetiracetam 250 mg tablet (Keppra) 250 mg PO BID SEIZURES 09/10/22 [History Last Taken 09/15/22] atorvastatin 40 mg tablet 40 mg PO QHS CHOLESTEROL 09/15/22 [History Last Taken 09/14/22] food supplemt, lactose-reduced 0.08 gram-1.5 kcal/mL oral liquid 250 ml PO 4X/DAY SUPPLEMENT 09/15/22 [History Last Taken 09/15/22] lactulose 10 gram/15 mL oral solution 60 g PO QHS CONSTIPATION 09/15/22 [History Last Taken 09/14/22] melatonin 10 mg tablet 10 mg PO QHS INSOMNIA 09/15/22 [History Last Taken 09/14/22] mirtazapine 30 mg tablet 45 mg PO QHS 09/15/22 [History Last Taken 09/14/22] multivit with loxzbtyl-duxo-MQ-lutein 8 mg iron-400 mcg-300 mcg tablet (Centrum Silver Women) 1 tab PO DAILY health maintenance 09/15/22 [History Last Taken 09/15/22] nystatin 100,000 unit/gram topical powder 1 applic topical DAILY PRN Skin Irritation 09/15/22 [History Last Taken 09/11/22] Allergy/AdvReac Type Severity Reaction Status Date / Time ciprofloxacin [From Cipro] AdvReac hypotension Verified 09/10/22 16:25 dextrose 5 % in water AdvReac Other Verified 09/10/22 16:25 [From Zyvox] doxycycline AdvReac hypotension Verified 09/10/22 16:25 levofloxacin [From Levaquin] AdvReac hypotension Verified 09/10/22 16:25 linezolid [From Zyvox] AdvReac Other Verified 09/10/22 16:25 morphine AdvReac hallucinati Verified 09/10/22 16:25 ons piperacillin [From Zosyn] AdvReac hypotension Verified 09/10/22 16:25 sulfamethoxazole AdvReac hypotension Verified 09/10/22 16:25 [From Bactrim] tazobactam [From Zosyn] AdvReac hypotension Verified 09/10/22 16:25 trimethoprim [From Bactrim] AdvReac hypotension Verified 09/10/22 16:25 vancomycin AdvReac developed Verified 09/10/22 16:25 toxic levels Family History Mother Osteoporosis Grandmother Breast cancer Surgical History H/O cervical polypectomy H/O dilation and curettage History of cystoscopy History of esophagogastroduodenoscopy (EGD) History of tonsillectomy and adenoidectomy History of tympanoplasty Hx of hand surgery Hx of shoulder surgery S/P laparoscopic procedure Social History household members: spouse housing: house Smoking Status: Never smoker alcohol intake: never substance use type: does not use what type of physical activity do you participate in: none seatbelt use: always do you feel safe at home: Yes additional social history: [employer]- retired [employer] ROS <EVA Pacheco - Last Filed: 09/15/22 22:02> ROS ED Constitutional Constitutional ED: Reports chills; Denies fever(s) or sweats Eyes Eyes: Denies blurry vision or change in vision ENT ENT ED: Denies rhinorrhea or sore throat Cardiovascular Cardiovascular: Denies chest pain or palpitations Respiratory/Chest Respiratory/Chest: Denies cough, dyspnea or dyspnea on exertion Gastrointestinal Gastrointestinal: Reports abdominal pain, nausea and vomiting; Denies constipation or diarrhea Genitourinary Genitourinary ED: Denies dysuria or hematuria Musculoskeletal Musculoskeletal: Denies back pain or neck pain Integumentary Denies abscess, Abrasions or rash Neurologic Neurologic: Reports weakness; Denies headache(s) Psychiatric Psychiatric: Denies anxiety or depression EXAM <EVA Pacheco - Last Filed: 09/15/22 22:02> Physical Exam Const Vital Signs: 09/15/22 15:28 09/15/22 15:31 09/15/22 20:00 Temperature 98.4 F 98.4 F 97.4 F L Temperature Source Temporal Temporal Temporal Pulse Rate 105 H 105 H 85 Respiratory Rate 16 16 18 Blood Pressure 141/90 H 141/90 H 138/87 H Blood Pressure Mean 107 107 104 Pulse Ox 95 95 92 Oxygen Delivery Method Room Air Room Air Room Air 09/15/22 19:00 09/15/22 20:29 Temperature 97.5 F L Temperature Source Temporal Pulse Rate 75 81 Respiratory Rate 14 15 Blood Pressure 132/89 H 141/88 H Blood Pressure Mean 103 105 Pulse Ox 93 93 Oxygen Delivery Method Room Air Room Air Positive well nourished General Appearance ED: NAD HEENT Reports moist mucous membranes Negative for trauma or tenderness Eyes PERRL and EOMs intact bilaterally Neck no lymphadenopathy and supple Chest Wall inspection of chest normal and palpation of chest normal Resp normal respiratory effort and clear to auscultation bilaterally Cardio regular rate and regular rhythm GI non-tender, non-distended and no masses Auscultation: normoactive bowel sounds Palpation: soft Extremity normal to inspection General Extremety ED: Negative for edema or tenderness General Extremity: Negative for edema Neuro oriented x3 Sensorium / Orientation: alert Psych mental status grossly normal Skin no rashes or lesions noted, no wounds and skin turgor normal <Dr. Neil Bhakta DO - Last Filed: 09/15/22 23:01> Physical Exam Const Vital Signs: 09/15/22 15:28 09/15/22 15:31 09/15/22 20:00 Temperature 98.4 F 98.4 F 97.4 F L Temperature Source Temporal Temporal Temporal Pulse Rate 105 H 105 H 85 Respiratory Rate 16 16 18 Blood Pressure 141/90 H 141/90 H 138/87 H Blood Pressure Mean 107 107 104 Pulse Ox 95 95 92 Oxygen Delivery Method Room Air Room Air Room Air 09/15/22 19:00 09/15/22 20:29 Temperature 97.5 F L Temperature Source Temporal Pulse Rate 75 81 Respiratory Rate 14 15 Blood Pressure 132/89 H 141/88 H Blood Pressure Mean 103 105 Pulse Ox 93 93 Oxygen Delivery Method Room Air Room Air MDM <EVA Pacheco - Last Filed: 09/15/22 22:02> [facility] MDM Narrative Medical decision making narrative: Patient was given fluids here in ED. KUB showed possible ileus. I think patient would benefit from admission to hospital for observation due to her weakness and for fluid resuscitation. Patient is comfortable with plan. Lab Data Attestation: I reviewed the patient's lab results. Lab results narrative: WBC 13.4, BUN 48, creatinine 1.29, GFR 53, BUN/creat ratio 37 point. Urine contaminated. Labs: Laboratory Results - last 24 hr 09/15/22 09/15/22 09/15/22 16:05 16:05 16:07 WBC 13.4 H RBC 4.07 L Hgb 12.8 Hct 40.5 MCV 99.5 H MCH 31.4 MCHC 31.6 L RDW Std Deviation 50.4 H RDW Coeff of Niurka 13.8 Plt Count 161 MPV 11.0 Immature Gran % (Auto) 0.400 Neut % (Auto) 79.0 H Lymph % (Auto) 8.2 L Delta % (Auto) 10.3 H Eos % (Auto) 1.4 Baso % (Auto) 0.7 Absolute Neuts (auto) 10.6 H Absolute Lymphs (auto) 1.10 Nucleated RBC % 0 Sodium 138 Potassium 3.8 Chloride 104 Carbon Dioxide 29.0 Anion Gap 5 BUN 48 H Creatinine 1.29 H Estim Creat Clear Calc 44.43 Est GFR (MDRD) Af Amer 53 L Est GFR (MDRD) Non-Af 44 L BUN/Creatinine Ratio 37.2 H Glucose 79 Calcium 9.3 Urine Color Yellow Urine Clarity Cloudy Urine pH 6.5 Ur Specific [place] 1.010 Urine Protein 30 H Urine Glucose (UA) Normal Urine Ketones Negative Urine Occult Blood 150 H Urine Nitrite Negative Urine Bilirubin Negative Urine Urobilinogen Normal Ur Leukocyte Esterase 500 H Urine RBC 5-10 SEEN Urine WBC >100 SEEN Ur Squamous Epith Cells 0 SEEN Urine Bacteria 2+ Urine Mucus 0 SEEN Urine Yeast 1+ Radiography Diagnostic Testing: Clinical Impression(s) from Imaging Studies KUB X-Ray 09/15/22 16:20 IMPRESSION: Increased stool. Possible colonic ileus. Electronically Signed: Willy Chiu MD at 16:49 EST , Abdomen/Pelvis CT 09/15/22 17:59 IMPRESSION: Increased stool as above. PEG tube may be deflated but terminates within the gastric lumen. Chronic mild right hydronephrosis. Left renal atrophy. Bilateral nonobstructing nephrolithiasis. Consider Chilaiditi''s syndrome. Electronically Signed: Willy Chiu MD at 19:06 EST , KUB reviewed and abdominal CT reviewed. I agree with radiologist impressions. These have also been reviewed and interpreted by attending ED physician. <Dr. Neil Bhakta, DO - Last Filed: 09/15/22 23:01> [facility] Lab Data Labs: Laboratory Results - last 24 hr 09/15/22 09/15/22 09/15/22 16:05 16:05 16:07 WBC 13.4 H RBC 4.07 L Hgb 12.8 Hct 40.5 MCV 99.5 H MCH 31.4 MCHC 31.6 L RDW Std Deviation 50.4 H RDW Coeff of Niurka 13.8 Plt Count 161 MPV 11.0 Immature Gran % (Auto) 0.400 Neut % (Auto) 79.0 H Lymph % (Auto) 8.2 L Delta % (Auto) 10.3 H Eos % (Auto) 1.4 Baso % (Auto) 0.7 Absolute Neuts (auto) 10.6 H Absolute Lymphs (auto) 1.10 Nucleated RBC % 0 Sodium 138 Potassium 3.8 Chloride 104 Carbon Dioxide 29.0 Anion Gap 5 BUN 48 H Creatinine 1.29 H Estim Creat Clear Calc 44.43 Est GFR (MDRD) Af Amer 53 L Est GFR (MDRD) Non-Af 44 L BUN/Creatinine Ratio 37.2 H Glucose 79 Calcium 9.3 Urine Color Yellow Urine Clarity Cloudy Urine pH 6.5 Ur Specific [place] 1.010 Urine Protein 30 H Urine Glucose (UA) Normal Urine Ketones Negative Urine Occult Blood 150 H Urine Nitrite Negative Urine Bilirubin Negative Urine Urobilinogen Normal Ur Leukocyte Esterase 500 H Urine RBC 5-10 SEEN Urine WBC >100 SEEN Ur Squamous Epith Cells 0 SEEN Urine Bacteria 2+ Urine Mucus 0 SEEN Urine Yeast 1+ Radiography Diagnostic Testing: Clinical Impression(s) from Imaging Studies KUB X-Ray 09/15/22 16:20 IMPRESSION: Increased stool. Possible colonic ileus. Electronically Signed: Willy Chiu MD at 16:49 EST Reading Location ID and State: [employer] / [place] , Service support , Abdomen/Pelvis CT 09/15/22 17:59 IMPRESSION: Increased stool as above. PEG tube may be deflated but terminates within the gastric lumen. Chronic mild right hydronephrosis. Left renal atrophy. Bilateral nonobstructing nephrolithiasis. Consider Chilaiditi''s syndrome. Electronically Signed: Willy Chiu MD at 19:06 EST Reading Location ID and State: [employer] / [place] , Service support , Treatment and Re-Evaluation Narrative: I performed a history and physical examination of the patient and discussed management plan with the physician accounting manager assistant controller. I reviewed the physician accounting manager assistant controller's note and agree with the documented findings and plan of care. Neil Bhakta DO, MS Discharge Plan Dx/Rx/DC Orders Clinical Impression: Ileus, Dehydration, Weakness, History of multiple sclerosis, Vomiting, Abdominal pain Clinical Impression: (Ruled Out): Allergic rhinitis Disposition Disposition: Acute Care Hospital [facility] Discharge Date/Time: 09/15/22 21:51
[2022-09-15] MEDS: 0.9% Normal Saline 1,000 ML 250 ML IV (17:36)
--- NOTE | 2022-09-15 17:59 | CT_ITS ---
STUDY: CT ABDOMEN AND PELVIS WITH CONTRAST REASON FOR EXAM: Female, 67 years old. EUS -- CTDI 15.15 -- DPI 1116.31 RADIATION DOSAGE (If Supplied By Facility): CTDIvol = ( ) mGy, DLP = ( 1116.31 ) mGycm TECHNIQUE: Transaxial images were obtained from the dome of the diaphragm to the symphysis pubis without oral contrast. IV 100mL Isovue-300 was administered. Sagittal and coronal images were reconstructed. Individualized dose optimization techniques were used for this CT. COMPARISON: November 15, 2020 CT abdomen and pelvis. FINDINGS: The visualized lung bases are unremarkable. Calcific coronary artery disease. Dome of the diaphragm is incompletely imaged at the edge of the field of view. Colonic interposition noted anterior to the liver beneath the right hemidiaphragm. Normal gallbladder and extrahepatic biliary system. Normal spleen. Normal pancreas. Normal bilateral adrenal glands. Chronic mild right hydronephrosis. No radiodense ureterolithiasis. Punctate nonobstructing nephroliths on the right. Left renal atrophy again noted. Simple left renal cortical cysts unchanged measuring up to 14 mm. No further follow-up required as a true simple/benign. Percutaneous catheter noted within the stomach. The balloon may be deflated as it is not well visualized.. Normal small intestine. Increased stool throughout the colon. Multiple radiodense pills noted within the colon. The appendix is visualized and appears normal. Calcified plaque along the aorta and its branches. Normal inferior vena cava. Normal retroperitoneum. Bladder is decompressed with a suprapubic Maldonado catheter. Normal abdominal wall. Mild levoconvex scoliosis. Diffuse demineralization decreases sensitivity throughout. Compression fractures T12 and L2 unchanged. Possible old sternal fracture. CT/Abdomen/Pelvis W IV Cont ONLY IMPRESSION: Increased stool as above. PEG tube may be deflated but terminates within the gastric lumen. Chronic mild right hydronephrosis. Left renal atrophy. Bilateral nonobstructing nephrolithiasis. Consider Chilaiditi''s syndrome. Electronically Signed: Willy Chiu MD at 19:06 EST ,
[2022-09-15] MEDS: 0.9% Normal Saline 1,000 ML 999 ML IV (18:07)
--- NOTE | 2022-09-15 20:54 | PCM.HP.STD ---
HPI - General General Date of Admission: 09/15/22 Date of Service: 09/15/22 Chief Complaint: Nausea HPI Narrative KEN CASON, is a 67 F with a history of MS with wheelchair dependence and neurogenic bladder with suprapubic catheter, CKD stage IIIa, and had a, recent seizure-like activity started on Keppra and recent PEG tube placement due to feeding difficulties who presented to [facility] ER 09/15/2022 with an episode of vomiting and shaking. She had to present to the ER 09/09 and 09/10 due to difficulties with feeding tube becoming dislodged and it was replaced both times. Since that time she had been doing well and been having bowel movements which are formed, most recently had one this morning without difficulty. Did have her tube feeds this morning which he reported had slight backflow but was flushed easily and did tolerate her oral medications and yogurt. It was not long after that however that she began trembling and intermittently said she felt like she had chills though temp was measured and she was afebrile and then she had an episode of emesis which her estimates was several hundred cc's. She was then brought to the ED and KUB demonstrated increased stool with possible colonic ileus so CT was obtained which showed increased stool throughout the colon as well and queried Chilaiditi syndrome but did not comment on any overt dilation, thickening, free air or other findings in regard to the bowel. Due to the possible slow transit of her PEG feedings with the emesis hospitalist consulted for admission. Spoke with her and at bedside, she is not presently having any nausea and has had no further vomiting but does have some diffuse abdominal tenderness on palpation. Only other complaint has been some fatigue over the past month for which her primary care physician has been tapering her Keppra and she is down to 250 mg twice daily, unclear how helpful this has been with the fatigue however. Still awaiting appointment with regular neurologist. Given her multiple medical comorbidities will admit for observation. No measured fever, no suprapubic tenderness, no other complaints or concerns per nor voiced per patient. COUNTS INCLUDE 234 BEDS AT THE [facility] Medical History Alcohol use Allergic rhinitis Back pain Bilateral hydronephrosis Blackout Chronic constipation CKD (chronic kidney disease) stage 4, GFR 15-29 ml/min Complicated urinary tract infection Constipation Declining functional status Dental bridge present Depression Difficulty swallowing Endometrial thickening on ultrasound History of echocardiogram History of edema History of wrist fracture Hyperlipidemia Hypertension Indwelling urethral catheter present Insomnia Iron deficiency anemia Loss of hearing Low iron Migraine headache Migraine headache MRSA colonization Multiple sclerosis Multiple sclerosis Muscle spasm Neurogenic bladder Non-smoker OAB (overactive bladder) Pelvic pain Port-A-Cath in place Right hemiparesis Urinary tract infection Uses wheelchair Vitamin D deficiency Wears glasses Home Medications bisacodyl 10 mg rectal suppository (Dulcolax (bisacodyl)) 10 mg RECTAL DAILY constipation 07/01/18 [History Last Taken 09/15/22] acetaminophen 500 mg tablet 1,000 mg PO Q6H PRN Pain 02/15/19 [History Last Taken 03/25/19] baclofen 20 mg tablet 10 mg PO BID MUSCLE SPASMS 05/23/19 [History Last Taken 09/15/22] magnesium oxide 400 mg (241.3 mg magnesium) tablet 400 mg PO QHS magnesium supplement 05/23/19 [History Last Taken 09/14/22] polysaccharide iron complex 150 mg iron capsule 150 mg PO DAILY iron replacement 05/23/19 [History Last Taken 09/15/22] glucosamine BSj-O8-Rqascppnp zoey 1,500 mg-400 unit-100 mg tablet (Osteo Bi-Flex (5-Loxin)) 1 tab PO BID supplement 11/15/20 [History Last Taken 09/15/22] krill 1,000 mg-omega-3 170 mg-dha 50 mg-epa 80 yy-kyjhxo-gasoo capsule (krill oil) 1 ea PO BID supplement 11/15/20 [History Last Taken 09/15/22] vitamin B complex-folic acid 0.4 mg tablet (B Complex 1 (with folic acid)) 1 tab PO DAILY vitamin 11/15/20 [History Last Taken 09/15/22] cholecalciferol (vitamin D3) 1,250 mcg (50,000 unit) capsule 50,000 unit PO QMONTH vitamin 08/15/21 [History Last Taken 09/08/22] tumeric 100 mg-tristian 150 mg-olive 50 mg-oreg 150 mg-caprylate capsule (Candicidal) 2 cap PO BID supplement 08/15/21 [History Last Taken 09/15/22] cinacalcet 30 mg tablet 30 mg PO QODAY hyperparathyroidism 11/24/21 [History Last Taken 09/14/22] fexofenadine 180 mg tablet 180 mg PO DAILY ALLERGIES 07/22/22 [History Last Taken 09/15/22] ondansetron 4 mg disintegrating tablet 4 mg PO Q8H PRN nausea and vomiting #10 tabs 07/22/22 [Rx Last Taken Unknown] ascorbic acid (vitamin C) 1,000 mg tablet,extended release (Vitamin C ER) 1,000 mg PO BREAKFAST SUPPLEMENT 07/23/22 [History Last Taken 09/15/22] baclofen 20 mg tablet 20 mg PO QPM MUSCLE SPASMS 09/10/22 [History Last Taken 09/14/22] levetiracetam 250 mg tablet (Keppra) 250 mg PO BID SEIZURES 09/10/22 [History Last Taken 09/15/22] atorvastatin 40 mg tablet 40 mg PO QHS CHOLESTEROL 09/15/22 [History Last Taken 09/14/22] food supplemt, lactose-reduced 0.08 gram-1.5 kcal/mL oral liquid 250 ml PO 4X/DAY SUPPLEMENT 09/15/22 [History Last Taken 09/15/22] lactulose 10 gram/15 mL oral solution 60 g PO QHS CONSTIPATION 09/15/22 [History Last Taken 09/14/22] melatonin 10 mg tablet 10 mg PO QHS INSOMNIA 09/15/22 [History Last Taken 09/14/22] mirtazapine 30 mg tablet 45 mg PO QHS 09/15/22 [History Last Taken 09/14/22] multivit with kqtfjamf-pixz-BF-lutein 8 mg iron-400 mcg-300 mcg tablet (Centrum Silver Women) 1 tab PO DAILY health maintenance 09/15/22 [History Last Taken 09/15/22] nystatin 100,000 unit/gram topical powder 1 applic topical DAILY PRN Skin Irritation 09/15/22 [History Last Taken 09/11/22] Allergy/AdvReac Type Severity Reaction Status Date / Time ciprofloxacin [From Cipro] AdvReac hypotension Verified 09/10/22 16:25 dextrose 5 % in water AdvReac Other Verified 09/10/22 16:25 [From Zyvox] doxycycline AdvReac hypotension Verified 09/10/22 16:25 levofloxacin [From Levaquin] AdvReac hypotension Verified 09/10/22 16:25 linezolid [From Zyvox] AdvReac Other Verified 09/10/22 16:25 morphine AdvReac hallucinati Verified 09/10/22 16:25 ons piperacillin [From Zosyn] AdvReac hypotension Verified 09/10/22 16:25 sulfamethoxazole AdvReac hypotension Verified 09/10/22 16:25 [From Bactrim] tazobactam [From Zosyn] AdvReac hypotension Verified 09/10/22 16:25 trimethoprim [From Bactrim] AdvReac hypotension Verified 09/10/22 16:25 vancomycin AdvReac developed Verified 09/10/22 16:25 toxic levels Family History Mother Osteoporosis Grandmother Breast cancer Surgical History H/O cervical polypectomy H/O dilation and curettage History of cystoscopy History of esophagogastroduodenoscopy (EGD) History of tonsillectomy and adenoidectomy History of tympanoplasty Hx of hand surgery Hx of shoulder surgery S/P laparoscopic procedure Social History household members: spouse housing: house Smoking Status: Never smoker alcohol intake: never substance use type: does not use what type of physical activity do you participate in: none seatbelt use: always do you feel safe at home: Yes additional social history: [employer]- retired SHARLENE PATRICK Constitutional Constitutional: Denies fever(s) Eyes Eyes: Reports other Details: Did not note any changes ENT HEENT: Reports other Details: Still able to swallow medications without incident Cardiovascular Cardiovascular: Denies chest pain Respiratory/Chest Respiratory/Chest: Reports other Details: No shortness of breath Gastrointestinal Gastrointestinal: Reports other Details: Had episode of emesis Genitourinary Genitourinary: Reports other Details: No suprapubic tenderness or changes with her suprapubic catheter or urine Musculoskeletal Musculoskeletal: Reports other Details: Chronically wheelchair-bound Neurologic Neurologic: Reports other Details: No new seizure-like activity Psychiatric Psychiatric: Reports other Details: Had seen and more fatigued recently Endocrine Endocrinology: Reports other Details: Does intermittently feel cold despite the temperature in the room at home Hematologic/Lymphatic Hematologic/Lymphatic: Reports other Details: Did not voice any bleeding or bruising concerns Vital Signs Vital Signs Vital Signs: 09/15/22 15:28 09/15/22 15:31 09/15/22 20:00 Temperature 98.4 F 98.4 F 97.4 F L Temperature Source Temporal Temporal Temporal Pulse Rate 105 H 105 H 85 Respiratory Rate 16 16 18 Blood Pressure 141/90 H 141/90 H 138/87 H Blood Pressure Mean 107 107 104 Pulse Ox 95 95 92 Oxygen Delivery Method Room Air Room Air Room Air 09/15/22 19:00 09/15/22 20:29 Temperature 97.5 F L Temperature Source Temporal Pulse Rate 75 81 Respiratory Rate 14 15 Blood Pressure 132/89 H 141/88 H Blood Pressure Mean 103 105 Pulse Ox 93 93 Oxygen Delivery Method Room Air Room Air Weight Weight: 66.5 kg Body Mass Index (BMI) 21.0 Physical Exam Const alert and no apparent distress HEENT head/scalp atraumatic Eyes Eyes Narrative: EOM grossly intact, anicteric Neck supple Resp normal respiratory effort and clear to auscultation bilaterally Cardio regular rate and regular rhythm GI soft to palpation and non-distended GI Narrative: Mild tenderness palpation diffusely without rebound, guarding, rigidity, bowel sounds active Extremity Extremity Narrative: No edema appreciated Skin Skin Narrative: Does have some slight crusting around suprapubic catheter Neuro Neuro Narrative: Chronic leg contractures unchanged from previous exam neurologically Psych Psych Narrative: Cooperative Results Lab / Micro Data Result Diagrams: 09/15/22 16:05 09/15/22 16:05 Labs: Laboratory Results - last 24 hr 09/15/22 16:05: WBC 13.4 H, RBC 4.07 L, Hgb 12.8, Hct 40.5, MCV 99.5 H, MCH 31.4, MCHC 31.6 L, RDW Std Deviation 50.4 H, RDW Coeff of [place]urka 13.8, Plt Count 161, MPV 11.0, Immature Gran % (Auto) 0.400, Neut % (Auto) 79.0 H, Lymph % (Auto) 8.2 L, Gray % (Auto) 10.3 H, Eos % (Auto) 1.4, Baso % (Auto) 0.7, Absolute Neuts (auto) 10.6 H, Absolute Lymphs (auto) 1.10, Nucleated RBC % 0 09/15/22 16:05: Sodium 138, Potassium 3.8, Chloride 104, Carbon Dioxide 29.0, Anion Gap 5, BUN 48 H, Creatinine 1.29 H, Estim Creat Clear Calc 44.43, Est GFR (MDRD) Af Amer 53 L, Est GFR (MDRD) Non-Af 44 L, BUN/Creatinine Ratio 37.2 H, Glucose 79, Calcium 9.3 09/15/22 16:07: Urine Color Yellow, Urine Clarity Cloudy, Urine pH 6.5, Ur Specific [place] 1.010, Urine Protein 30 H, Urine Glucose (UA) Normal, Urine Ketones Negative, Urine Occult Blood 150 H, Urine Nitrite Negative, Urine Bilirubin Negative, Urine Urobilinogen Normal, Ur Leukocyte Esterase 500 H, Urine RBC 5-10 SEEN, Urine WBC >100 SEEN, Ur Squamous Epith Cells 0 SEEN, Urine Bacteria 2+, Urine Mucus 0 SEEN, Urine Yeast 1+ Radiology Impression KUB X-Ray 09/15/22 16:20 IMPRESSION: Increased stool. Possible colonic ileus. Electronically Signed: Willy Chiu MD at 16:49 EST Reading Location ID and State: [address] [place] [address] , Service support , Abdomen/Pelvis CT 09/15/22 17:59 IMPRESSION: Increased stool as above. PEG tube may be deflated but terminates within the gastric lumen. Chronic mild right hydronephrosis. Left renal atrophy. Bilateral nonobstructing nephrolithiasis. Consider Chilaiditi''s syndrome. Electronically Signed: Willy Chiu MD at 19:06 EST , Assessment & Plan Assessment/Plan (1) Vomiting: PLAN: Plan #Nausea and vomiting KUB with stool burden and possible ileus, CT redemonstrated stool burden, no evidence of high grade obstruction, perf, free air, or infxn noted but did query if there could be a component of Chilaiditi syndrome which could be incidental or could account for some of the abdominal tenderness and episode of vomiting. has improved at this time and denied nausea and denied abdominal pain but does have some abdominal tenderness on exam and given multiple medical comorbidities will admit for observation N.p.o. except crucial meds Zofran as needed Gentle hydration and supportive care at this time Slight inc in WBC but no s/s of infection. No fevers, UA suggestive of UTI but obtained through suprapubic catheter last changed 1 week ago and no suprapubic tenderness/other infectious indication and nitrite negative, will hold off on abx at this time #CKD IIIa Gentle hydration avoid nephro toxic agents #MS With PEG tube and suprapubic catheter Supportive care DVT ppx lovenox Charges/Coding Visit Charges OBSV E&M: 39144 Initial observation care L2
[2022-09-15] MEDS: 0.9% Normal Saline 1,000 ML 75 ML IV (22:27)
[2022-09-15] MEDS: Mirtazapine 15 MG Tablet 45 MG PO (22:45)
[2022-09-15] MEDS: MELATONIN 10 MG TABLET PO (22:46)
[2022-09-15] MEDS: levETIRAcetam 250 MG Tablet PO (22:46)
[2022-09-16] VITALS (7 sets, daily range): BP systolic 97–156; BP diastolic 61–96; PULSE 63–81; RESP 14–20; TEMP 36.4–36.6; O2SAT 97–100
[2022-09-16 05:47] LABS: Absolute Lymphocyte Count 1.95 X10^3/uL (0.83-4.51); Absolute Neutrophil Count 5.5 X10^3/uL (2.0-7.7); Basophil# 0.07 X10^3/uL; Basophil% 0.8 % (0-1); Eosinophil# 0.39 X10^3/uL; Eosinophils% 4.5 % (0-5); Hematocrit 33.6 % (37-47); Hemoglobin 11.1 g/dL (12.0-15.0); Lymphocyte # 1.95 X10^3/ul (0.83-4.51); Lymphocyte % 22.4 % (19-41); Mean Corpuscular Hgb 32.3 pg (27.0-32.0); Mean Corpuscular Volume 97.7 fL (81-99); Mean Platelet Vol. 10.7 fl (6.2-12.0); Monocyte# 0.82 X10^3/uL; Monocyte% 9.4 % (0-10); NRBC Flagged by Analyzer 0 % (0-5); Neutrophil # 5.45 X10^3/uL (2.7-7.7); Neutrophil % 62.6 % (47-70); Platelet Count 141 K/mm3 (150-450); RBC Distribution Width CV 13.9 % (11.6-14.6); RBC Distribution Width SD 49.1 fl (35.1-43.9); Red Blood Count 3.44 M/mm3 (4.2-5.4); White Blood Count 8.7 K/mm3 (4.4-11.0)
[2022-09-16 06:08] LABS: ALB/GLOB Ratio 0.8 RATIO (0.9-2.4); AST(SGOT) 14 U/L (15-37); Alanine Aminotransfer ALT/SGPT 20 U/L (13-56); Albumin, Serum 2.7 g/dL (3.2-5.0); Alkaline Phosphatase 69 U/L (45-117); Anion Gap 3 (5-15); BUN 36 mg/dL (7-18); BUN/Creat Ratio 34.6 RATIO (10-20); Calcium,Total 8.6 mg/dL (8.5-10.1); Chloride 109 mmol/L (98-107); Creatinine, Serum 1.04 mg/dL (0.55-1.02); EST Glomerular Filtration Rate 56 mL/min (>60); Est Glom Filt Rate - Afr Amer 68 mL/min (>60); Globulin 3.4 g/dL (2.2-4.2); Glucose 81 mg/dL (74-106); Potassium 3.8 mmol/L (3.5-5.1); Protein, Total 6.1 g/dL (6.4-8.2); Sodium Level 141 mmol/L (136-145)
[2022-09-16] MEDS: levETIRAcetam 250 MG Tablet PO ×2 (10:41→22:46)
[2022-09-16] MEDS: 0.9% Normal Saline 1,000 ML 100 ML IV ×2 (13:05→22:46)
[2022-09-16] MEDS: Senna/Docusate Sodium 1 Tablet 2 TABLET PO (13:08)
--- NOTE | 2022-09-16 14:53 | CASEMGMT ---
SHARLENE LATHAM in to pt room to deliver HELM form. SHARLENE LATHAM explained HELM form, patient nodded her head in understanding. Pt states he disagrees with status but signed form and filed in chart. Pt/ provided with a copy of signed HELM form. Pt is active with [facility] PT, OT and ST and would like to resume on dc. Pt denies need for a list of agencies. Pt expressed concerns that he wants to be able to do IVF at home. States there is not a physician who will cover this. SHARLENE LATHAM listened to concerns and encouraged pt to speak with pt physician. Patient had no further questions or concerns at this time.
--- NOTE | 2022-09-16 15:28 | PN.HOSP_ITS ---
Subjective Subjective Patient seen and examined. Her was by her bedside. SHe was frailand struggled to answer questions. She admitted to nausea. said she had vomited yesterday. He is also concerned about her continuous deterioration as he says she has been getting weaker and weaker. 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 Review of systems is otherwise negative. Objective Data Objective Data Vital Signs: Vital Signs Temp Pulse Resp BP Pulse Ox O2 Del Method O2 Flow Rate 97.8 F 63 17 97/61 100 Nasal Cannula 4 09/16/22 10:15 09/16/22 10:15 09/16/22 10:15 09/16/22 10:15 09/16/22 10:15 09/16/22 10:15 09/16/22 10:15 Oxygen Flow Rate (L/min) 4 Oxygen Delivery Method Nasal Cannula Weight: 133 lb 4.8 oz Body Mass Index (BMI) 19.1 Intake & Output: Intake and Output for Last 24 Hours 09/14/22 09/15/22 09/16/22 23:59 23:59 23:59 Intake Total 1999 / 1999 1000 / 1000 Output Total 1350 / 1350 1500 / 1500 Balance 650 / 650 -500 / -500 Lab / Micro Data Result Diagrams: 09/16/22 05:33 09/16/22 05:33 Labs: Laboratory Results - last 24 hr 09/15/22 16:05: WBC 13.4 H, RBC 4.07 L, Hgb 12.8, Hct 40.5, MCV 99.5 H, MCH 31.4, MCHC 31.6 L, RDW Std Deviation 50.4 H, RDW Coeff of Niurka 13.8, Plt Count 161, MPV 11.0, Immature Gran % (Auto) 0.400, Neut % (Auto) 79.0 H, Lymph % (Auto) 8.2 L, [place] % (Auto) 10.3 H, Eos % (Auto) 1.4, Baso % (Auto) 0.7, Absolute Neuts (auto) 10.6 H, Absolute Lymphs (auto) 1.10, Nucleated RBC % 0 09/15/22 16:05: Sodium 138, Potassium 3.8, Chloride 104, Carbon Dioxide 29.0, Anion Gap 5, BUN 48 H, Creatinine 1.29 H, Estim Creat Clear Calc 44.43, Est GFR (MDRD) Af Amer 53 L, Est GFR (MDRD) Non-Af 44 L, BUN/Creatinine Ratio 37.2 H, Glucose 79, Calcium 9.3 09/15/22 16:07: Urine Color Yellow, Urine Clarity Cloudy, Urine pH 6.5, Ur Specific [place] 1.010, Urine Protein 30 H, Urine Glucose (UA) Normal, Urine Ketones Negative, Urine Occult Blood 150 H, Urine Nitrite Negative, Urine Bilirubin Negative, Urine Urobilinogen Normal, Ur Leukocyte Esterase 500 H, Urine RBC 5-10 SEEN, Urine WBC >100 SEEN, Ur Squamous Epith Cells 0 SEEN, Urine Bacteria 2+, Urine Mucus 0 SEEN, Urine Yeast 1+ 09/16/22 05:33: WBC 8.7, RBC 3.44 L, Hgb 11.1 L, Hct 33.6 L, MCV 97.7, MCH 32.3 H, MCHC 33.0, RDW Std Deviation 49.1 H, RDW Coeff of [place]urka 13.9, Plt Count 141 L, MPV 10.7, Immature Gran % (Auto) 0.300, Neut % (Auto) 62.6, Lymph % (Auto) 22.4, [place] % (Auto) 9.4, Eos % (Auto) 4.5, Baso % (Auto) 0.8, Absolute Neuts (auto) 5.5, Absolute Lymphs (auto) 1.95, Nucleated RBC % 0 09/16/22 05:33: Sodium 141, Potassium 3.8, Chloride 109 H, Carbon Dioxide 29.0, Anion Gap 3 L, BUN 36 H, Creatinine 1.04 H, Estim Creat Clear Calc 50.10, Est GFR (MDRD) Af Amer 68, Est GFR (MDRD) Non-Af 56 L, BUN/Creatinine Ratio 34.6 H, Glucose 81, Calcium 8.6, Total Bilirubin 0.40, AST 14 L, ALT 20, Alkaline Phosphatase 69, Total Protein 6.1 L, Albumin 2.7 L, Globulin 3.4, Albumin/Globulin Ratio 0.8 L Radiography Diagnostic Testing: Radiology Impression KUB X-Ray 09/15/22 16:20 IMPRESSION: Increased stool. Possible colonic ileus. Electronically Signed: Willy Chiu MD at 16:49 EST , Abdomen/Pelvis CT 09/15/22 17:59 IMPRESSION: Increased stool as above. PEG tube may be deflated but terminates within the gastric lumen. Chronic mild right hydronephrosis. Left renal atrophy. Bilateral nonobstructing nephrolithiasis. Consider Chilaiditi''s syndrome. Electronically Signed: Willy Chiu MD at 19:06 EST , Physical Exam Const alert Orientation / Consciousness: lethargic HEENT head/scalp atraumatic Head and Scalp: normocephalic Mouth: dry mucous membranes Eyes PERRL, EOMs intact bilaterally and conjunctivae normal Neck no lymphadenopathy, supple and no JVD Resp normal respiratory effort, no retractions and no use of accessory muscles Cardio regular rate, regular rhythm, S1 normal heart sound and S2 normal heart sound GI normal to inspection, nondistended, normoactive bowel sounds, soft to palpation, non-tender and non-distended Extremity normal to inspection, full ROM and no clubbing, cyanosis or edema Neuro Neuro Narrative: very frail, weak and lethargic, barely able to vocalise Sensorium / Orientation: awake Assessment & Plan Assessment/Plan (1) Abdominal pain: (2) Vomiting: (3) Constipation: PLAN: Plan #Vomiting * had one episode of vomiting yesterday before she came in to the ED * CT abdomen showed increased stool burden, with chronic mild right hydroneprosis and bilateral nonobstructing nephrolithiasis, with colonoc interposition noted anterior to the liver beneath the right hemidiaphragm, ?Chilaidati syndrome * hasnt vomited since admission * having bowel movements * continue gentle hydration with IVF * give enema x1 to help with bowel movement * suppository laxative * IV zofran. Continue gentle hydration with IVF #CKD stage III a * Cr at her baseline. * #Debility due progressive multiple sclerosis * says she has been getting weaker and more debilitated. * I tried to explain to him that this was likely a progression of her MS. HE says it appears to be more than would be expected for the MS * I counseled about neurology follow up; she hasnt followed up with her neurologist in quite a while and has an appointment in November. I counseled that what she really needed with respect to the progressive weakness which has been present during her previous admissions and so is there for not new is to follow-up closely with her neurologist. * PT OT consulted. Fall precautions. * Has PEG tube in place and also has a suprapubic catheter. * #Asymptomatic bacteriuria * has 2+ bacteria in her urine. Patient however chronically has bacteria in her urine. WIll monitor * #Nutrition: Tube feeds currently on hold. Nutrition consulted. Anticipate resumption of tube feeds once constipation is relieved. DVT prophylaxis: lovenox # Charges/Coding Visit Charges Inpatient E&M: 33610 Subs Hosp L3
--- NOTE | 2022-09-16 15:49 | CHAPLAIN ---
Type of Pastoral Visit _x__ Initial Visit ___ Follow-up Visit ___ On-call Visit ___ General Patient Visit ___ Spiritual Assessment ___ Family Conference ___ Bereavement ___ Rapid Response ___ Code Blue ___ Other (describe below) Pastoral Care Referral From ___ Patient _x__ Family ___ Nurse ___ Physician ___ Web Offset Press Feeder ___ Casting Finisher ___ Other (describe below) Sacrament/Intervention _x__ Active listening ___ Anointing ___ Holiness ___ Bereavement ___ Communion ___ Justine exploration ___ ___ Life review _x__ Prayer ___ Reconciliation ___ Sacrament of Sick _x__ Supportive presence ___ Wedding ___ Other (describe below) Pastoral Comments patient has been admitted here numerous times; pt and spouse have become known to this manager film; offer of presence, prayer, and support given and received by this couple
[2022-09-16] MEDS: MELATONIN 10 MG TABLET PO (22:45)
[2022-09-16] MEDS: Mirtazapine 15 MG Tablet 45 MG PO (22:45)
[2022-09-17 03:14] VITALS: BP 144/92; PULSE 76; RESP 18; TEMP 36.4; O2SAT 100
[2022-09-17 03:15] VITALS: BP 144/92; PULSE 76; RESP 18; TEMP 36.4; O2SAT 100
[2022-09-17] MEDS: Acetaminophen 325 MG Tablet 650 MG PO (03:16)
[2022-09-17 06:09] LABS: Absolute Lymphocyte Count 1.87 X10^3/uL (0.83-4.51); Absolute Neutrophil Count 4.5 X10^3/uL (2.0-7.7); Basophil# 0.07 X10^3/uL; Basophil% 0.9 % (0-1); Eosinophil# 0.38 X10^3/uL; Hematocrit 35.8 % (37-47); Hemoglobin 11.3 g/dL (12.0-15.0); Lymphocyte # 1.87 X10^3/ul (0.83-4.51); Lymphocyte % 24.6 % (19-41); Mean Corp Hgb Conc 31.6 g/dL (32-36); Mean Corpuscular Hgb 31.3 pg (27.0-32.0); Mean Corpuscular Volume 99.2 fL (81-99); Mean Platelet Vol. 10.5 fl (6.2-12.0); Monocyte# 0.78 X10^3/uL; Monocyte% 10.3 % (0-10); NRBC Flagged by Analyzer 0 % (0-5); Neutrophil # 4.46 X10^3/uL (2.7-7.7); Neutrophil % 58.7 % (47-70); Platelet Count 146 K/mm3 (150-450); RBC Distribution Width CV 13.7 % (11.6-14.6); RBC Distribution Width SD 50.2 fl (35.1-43.9); Red Blood Count 3.61 M/mm3 (4.2-5.4); White Blood Count 7.6 K/mm3 (4.4-11.0)
[2022-09-17 06:30] LABS: Anion Gap 7 (5-15); BUN 28 mg/dL (7-18); BUN/Creat Ratio 28.1 RATIO (10-20); Chloride 111 mmol/L (98-107); EST Glomerular Filtration Rate 59 mL/min (>60); Est Glom Filt Rate - Afr Amer 71 mL/min (>60); Estimated Creatinine Clearance 52.11 ml/min; Glucose 68 mg/dL (74-106); Potassium 3.6 mmol/L (3.5-5.1); Sodium Level 143 mmol/L (136-145)
[2022-09-17 09:14] VITALS: BP 145/88; PULSE 79; RESP 18; TEMP 36.5; O2SAT 97
[2022-09-17] MEDS: 0.9% Saline Lock 10 ML Syringe IV (09:29)
[2022-09-17] MEDS: levETIRAcetam 250 MG Tablet PO ×2 (09:29→21:55)
[2022-09-17 09:37] VITALS: BP 145/88; PULSE 79; RESP 18; TEMP 36.5; O2SAT 97
--- NOTE | 2022-09-17 12:55 | PN.HOSP_ITS ---
Subjective Subjective Patient seen and examined. was by her bedside. She stated that she felt rotten. She had an enema yesterday, but still hasnt had a bowel movement yet. is requesting for general surgery evaluation because he is concerned that it could be something worse. He requested for lactulose and a laxative. Review of systems is otherwise negative. Objective Data Objective Data Vital Signs: Vital Signs Temp Pulse Resp BP Pulse Ox O2 Del Method O2 Flow Rate 97.7 F L 79 18 145/88 H 97 Room Air 4 09/17/22 09:37 09/17/22 09:37 09/17/22 09:37 09/17/22 09:37 09/17/22 09:37 09/17/22 09:37 09/17/22 09:37 Oxygen Flow Rate (L/min) 4 Oxygen Delivery Method Room Air Weight: 133 lb 4.805 oz Body Mass Index (BMI) 19.1 Intake & Output: Intake and Output for Last 24 Hours 09/15/22 09/16/22 09/17/22 23:59 23:59 23:59 Intake Total 1999 1968.33 / 1968.33 Output Total 1350 / 1350 2975 / 2975 875 / 875 Balance 650 / 650 -1006.67 / -1006.67 -875 / -875 Lab / Micro Data Result Diagrams: 09/17/22 06:00 09/17/22 06:00 Labs: Laboratory Results - last 24 hr 09/17/22 06:00: WBC 7.6, RBC 3.61 L, Hgb 11.3 L, Hct 35.8 L, MCV 99.2 H, MCH 31.3, MCHC 31.6 L, RDW Std Deviation 50.2 H, RDW Coeff of Niurka 13.7, Plt Count 146 L, MPV 10.5, Immature Gran % (Auto) 0.500, Neut % (Auto) 58.7, Lymph % (Auto) 24.6, [place] % (Auto) 10.3 H, Eos % (Auto) 5.0, Baso % (Auto) 0.9, Absolute Neuts (auto) 4.5, Absolute Lymphs (auto) 1.87, Nucleated RBC % 0 09/17/22 06:00: Sodium 143, Potassium 3.6, Chloride 111 H, Carbon Dioxide 25.0, Anion Gap 7, BUN 28 H, Creatinine 1.00, Estim Creat Clear Calc 52.11, Est GFR (MDRD) Af Amer 71, Est GFR (MDRD) Non-Af 59 L, BUN/Creatinine Ratio 28.1 H, Glucose 68 L, Calcium 9.0 Physical Exam Const alert Orientation / Consciousness: lethargic HEENT head/scalp atraumatic and moist oral mucous membranes Head and Scalp: normocephalic Mouth: oral and palatal mucosa normal Eyes PERRL, EOMs intact bilaterally and conjunctivae normal Neck no lymphadenopathy, supple and no JVD Resp normal respiratory effort, no retractions, no use of accessory muscles and clear to auscultation bilaterally Cardio regular rate, regular rhythm, S1 normal heart sound and S2 normal heart sound GI normal to inspection, nondistended, normoactive bowel sounds, soft to palpation, non-tender and non-distended Extremity normal to inspection, full ROM and no clubbing, cyanosis or edema Skin Skin Narrative: suprapubic catheter in place Neuro Neuro Narrative: very frail, weak and lethargic, barely able to vocalise Sensorium / Orientation: awake Psych Psych Narrative: Cooperative Assessment & Plan Assessment/Plan (1) Abdominal pain: (2) Vomiting: (3) Constipation: PLAN: Plan #Vomiting and constipation * hasnt vomited again since admission. 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 * #Debility due progressive multiple sclerosis * says she has been getting weaker and more debilitated. * I tried to explain to him that this was likely a progression of her MS. HE says it appears to be more than would be expected for the MS * I counseled about neurology follow up; she hasnt followed up with her neurolog ist in quite a while and has an appointment in November. I counseled that what she really needed with respect to the progressive weakness which has been present during her previous admissions and so is there for not new is to follow-up closely with her neurologist. * PT OT on board Fall precautions. * Has PEG tube in place and also has a suprapubic catheter. * #Asymptomatic bacteriuria * has 2+ bacteria in her urine. Patient however chronically has bacteria in her urine. WIll monitor * #Nutrition: Tube feeds currently on hold. Nutrition consulted. Anticipate resumption of tube feeds once constipation is relieved. DVT prophylaxis: lovenox # Charges/Coding Visit Charges Inpatient E&M: 93907 Subs Hosp L2
[2022-09-17] MEDS: Lactulose 20 GM/30 ML UDC PO (13:27)
[2022-09-17] MEDS: Electrolyte Solution/Peg's 4000 ML 2000 ML GT (15:18)
[2022-09-17 15:22] VITALS: BP 147/97; PULSE 89; RESP 18; TEMP 36.5; O2SAT 99
[2022-09-17] MEDS: Bisacodyl 10 MG Suppository RC ×2 (17:08→21:55)
[2022-09-17] MEDS: 0.9% Normal Saline 1,000 ML 75 ML IV (19:09)
[2022-09-17 19:50] VITALS: BP 158/95; PULSE 94; RESP 17; TEMP 36.5; O2SAT 98
--- NOTE | 2022-09-17 19:51 | CON.PCM.SX_ITS ---
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 I held a lengthy conversation with patient's spouse and reviewed her CT imaging. At this point I do not believe the interposition of the colon with the liver and the right hemidiaphragm to be causing any obstruction given that the colon appears dilated even after this area. However, there is significant fecal impaction within the rectal vault, in particular, which measures 9 cm in diameter. Therefore I recommend immediate initiation of a bowel prep via patient's gastrostomy as well as enemas 3 times a day from below. Would restrict patient's diet during this time as well until more normal motility is r estored. Orders have been placed with these medication changes. Surgery will continue to follow. HPI Consult Data Date of Consult: 09/17/22 HPI Narrative Reason for Consultation: Constipation HPI Narrative: KEN SHARP, is a 67 F with a complex past neurologic history inclusive of MS and prior CVA who is known to me from a prior admission in consultation on 08/06/2022 that ultimately led to replacement of a PEG tube on 08/10/2022. Patient presented to [facility] earlier this week after she was found complaining of severe nausea and vomiting with a decrease in her normal bowel movement frequency. Patient's provides much of the history and states that his did well following their last discharge and tolerated nearly every feed with minimal residuals. She did require 2 ER visits on accou nt of acute tubular dislodgment, but these were resolved without issue. Mr. Sharp acknowledges that his deals with chronic constipation and they have a routine where she is administered lactulose each morning and a suppository later in the day so that she is able to have a bowel movement at least once every other day. He notes that she did not receive this regimen quite a strictly on the account of her being more fatigued for the suppository placement and she had gone more days then usual between bowel movements. However, he notes a reasonably large bowel movement the day of her presentation. 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 Mr. Sharp relates that his has not experienced any output despite ongoing use of lactulose and a suppository. He expresses concern that there may be something more to this picture and wants to rule that out with any additional imaging if it is deemed necessary. [facility] Medical History Alcohol use Allergic rhinitis Back pain Bilateral hydronephrosis Blackout Chronic constipation CKD (chronic kidney disease) stage 4, GFR 15-29 ml/min Complicated urinary tract infection Constipation Declining functional status Dental bridge present Depression Difficulty swallowing Endometrial thickening on ultrasound History of echocardiogram History of edema History of wrist fracture Hyperlipidemia Hypertension Indwelling urethral catheter present Insomnia Iron deficiency anemia Loss of hearing Low iron Migraine headache Migraine headache MRSA colonization Multiple sclerosis Multiple sclerosis Muscle spasm Neurogenic bladder Non-smoker OAB (overactive bladder) Pelvic pain Port-A-Cath in place Right hemiparesis Urinary tract infection Uses wheelchair Vitamin D deficiency Wears glasses Home Medications bisacodyl 10 mg rectal suppository (Dulcolax (bisacodyl)) 10 mg RECTAL DAILY constipation 07/01/18 [History Last Taken 09/15/22] acetaminophen 500 mg tablet 1,000 mg PO Q6H PRN Pain 02/15/19 [History Last Taken 03/25/19] baclofen 20 mg tablet 10 mg PO BID MUSCLE SPASMS 05/23/19 [History Last Taken 09/15/22] magnesium oxide 400 mg (241.3 mg magnesium) tablet 400 mg PO QHS magnesium supplement 05/23/19 [History Last Taken 09/14/22] polysaccharide iron complex 150 mg iron capsule 150 mg PO DAILY iron replacement 05/23/19 [History Last Taken 09/15/22] glucosamine EWu-H7-Edyxualzo zoey 1,500 mg-400 unit-100 mg tablet (Osteo Bi- Flex (5-Loxin)) 1 tab PO BID supplement 11/15/20 [History Last Taken 09/15/22] krill 1,000 mg-omega-3 170 mg-dha 50 mg-epa 80 sy-amvznl-pyqtu capsule (krill o il) 1 ea PO BID supplement 11/15/20 [History Last Taken 09/15/22] vitamin B complex-folic acid 0.4 mg tablet (B Complex 1 (with folic acid)) 1 tab PO DAILY vitamin 11/15/20 [History Last Taken 09/15/22] cholecalciferol (vitamin D3) 1,250 mcg (50,000 unit) capsule 50,000 unit PO QMONTH vitamin 08/15/21 [History Last Taken 09/08/22] tumeric 100 mg-tristian 150 mg-olive 50 mg-oreg 150 mg-caprylate capsule (Candicidal) 2 cap PO BID supplement 08/15/21 [History Last Taken 09/15/22] cinacalcet 30 mg tablet 30 mg PO QODAY hyperparathyroidism 11/24/21 [History Last Taken 09/14/22] fexofenadine 180 mg tablet 180 mg PO DAILY ALLERGIES 07/22/22 [History Last Taken 09/15/22] ondansetron 4 mg disintegrating tablet 4 mg PO Q8H PRN nausea and vomiting #10 tabs 07/22/22 [Rx Last Taken Unknown] ascorbic acid (vitamin C) 1,000 mg tablet,extended release (Vitamin C ER) 1,000 mg PO BREAKFAST SUPPLEMENT 07/23/22 [History Last Taken 09/15/22] baclofen 20 mg tablet 20 mg PO QPM MUSCLE SPASMS 09/10/22 [History Last Taken 09/14/22] levetiracetam 250 mg tablet (Keppra) 250 mg PO BID SEIZURES 09/10/22 [History L ast Taken 09/15/22] atorvastatin 40 mg tablet 40 mg PO QHS CHOLESTEROL 09/15/22 [History Last Taken 09/14/22] food supplemt, lactose-reduced 0.08 gram-1.5 kcal/mL oral liquid 250 ml PO 4X/DAY SUPPLEMENT 09/15/22 [History Last Taken 09/15/22] lactulose 10 gram/15 mL oral solution 60 g PO QHS CONSTIPATION 09/15/22 [History Last Taken 09/14/22] melatonin 10 mg tablet 10 mg PO QHS INSOMNIA 09/15/22 [History Last Taken 09/14/22] mirtazapine 30 mg tablet 45 mg PO QHS 09/15/22 [History Last Taken 09/14/22] multivit with ybehunku-qnxm-KV-lutein 8 mg iron-400 mcg-300 mcg tablet (Centrum Silver Women) 1 tab PO DAILY health maintenance 09/15/22 [History Last Taken 09/15/22] nystatin 100,000 unit/gram topical powder 1 applic topical DAILY PRN Skin Irritation 09/15/22 [History Last Taken 09/11/22] Allergy/AdvReac Type Severity Reaction Status Date / Time ciprofloxacin [From Cipro] AdvReac hypotension Verified 09/10/22 16:25 dextrose 5 % in water AdvReac Other Verified 09/10/22 16:25 [From Zyvox] doxycycline AdvReac hypotension Verified 09/10/22 16:25 levofloxacin [From Levaquin] AdvReac hypotension Verified 09/10/22 16:25 linezolid [From Zyvox] AdvReac Other Verified 09/10/22 16:25 morphine AdvReac hallucinati Verified 09/10/22 16:25 ons piperacillin [From Zosyn] AdvReac hypotension Verified 09/10/22 16:25 sulfamethoxazole AdvReac hypotension Verified 09/10/22 16:25 [From Bactrim] tazobactam [From Zosyn] AdvReac hypotension Verified 09/10/22 16:25 trimethoprim [From Bactrim] AdvReac hypotension Verified 09/10/22 16:25 vancomycin AdvReac developed Verified 09/10/22 16:25 toxic levels Family History Mother Osteoporosis Grandmother Breast cancer Surgical History H/O cervical polypectomy H/O dilation and curettage History of cystoscopy History of esophagogastroduodenoscopy (EGD) History of tonsillectomy and adenoidectomy History of tympanoplasty Hx of hand surgery Hx of shoulder surgery S/P laparoscopic procedure Social History household members: spouse housing: house Smoking Status: Never smoker alcohol intake: never substance use type: does not use what type of physical activity do you participate in: none seatbelt use: always do you feel safe at home: Yes 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Physical Exam Const alert and no apparent distress General Appearance: cooperative GI GI Narrative: Mild abdominal distention, PEG tube present in left upper quadrant, abdomen is soft and nontender to palpation as confirmed with repeat exam Inspection: abdominal distention and GI tube present Lab / Micro Data Result Diagrams: 09/17/22 06:00 09/17/22 06:00 Labs: Laboratory Results - last 24 hr 09/17/22 06:00: WBC 7.6, RBC 3.61 L, Hgb 11.3 L, Hct 35.8 L, MCV 99.2 H, MCH 31.3, MCHC 31.6 L, RDW Std Deviation 50.2 H, RDW Coeff of Niurka 13.7, Plt Count 146 L, MPV 10.5, Immature Gran % (Auto) 0.500, Neut % (Auto) 58.7, Lymph % (Auto) 24.6, [place] % (Auto) 10.3 H, Eos % (Auto) 5.0, Baso % (Auto) 0.9, Absolute Neuts (auto) 4.5, Absolute Lymphs (auto) 1.87, Nucleated RBC % 0 09/17/22 06:00: Sodium 143, Potassium 3.6, Chloride 111 H, Carbon Dioxide 25.0, Anion Gap 7, BUN 28 H, Creatinine 1.00, Estim Creat Clear Calc 52.11, Est GFR (MDRD) Af Amer 71, Est GFR (MDRD) Non-Af 59 L, BUN/Creatinine Ratio 28.1 H, Glucose 68 L, Calcium 9.0 Charges/Coding Visit Charges Inpatient E&M: 71692 Init Hosp L2
[2022-09-17] MEDS: MELATONIN 10 MG TABLET PO (21:55)
[2022-09-17] MEDS: Mirtazapine 15 MG Tablet 45 MG PO (21:55)
[2022-09-17] MEDS: Ondansetron 4 MG/2 ML Vial IV (23:36)
[2022-09-18] VITALS (8 sets, daily range): BP systolic 136–156; BP diastolic 86–92; PULSE 89–97; RESP 15–18; TEMP 36.7–37; O2SAT 92–98
[2022-09-18 05:31] LABS: Absolute Lymphocyte Count 2.08 X10^3/uL (0.83-4.51); Absolute Neutrophil Count 7.1 X10^3/uL (2.0-7.7); Basophil# 0.09 X10^3/uL; Basophil% 0.8 % (0-1); Eosinophils% 1.9 % (0-5); Hemoglobin 12.5 g/dL (12.0-15.0); Lymphocyte # 2.08 X10^3/ul (0.83-4.51); Lymphocyte % 19.5 % (19-41); Mean Corp Hgb Conc 32.9 g/dL (32-36); Mean Corpuscular Hgb 31.5 pg (27.0-32.0); Mean Corpuscular Volume 95.7 fL (81-99); Mean Platelet Vol. 10.2 fl (6.2-12.0); Monocyte# 1.21 X10^3/uL; Monocyte% 11.3 % (0-10); NRBC Flagged by Analyzer 0 % (0-5); Neutrophil # 7.07 X10^3/uL (2.7-7.7); Neutrophil % 66.2 % (47-70); Platelet Count 167 K/mm3 (150-450); RBC Distribution Width CV 13.2 % (11.6-14.6); RBC Distribution Width SD 46.9 fl (35.1-43.9); Red Blood Count 3.97 M/mm3 (4.2-5.4); White Blood Count 10.7 K/mm3 (4.4-11.0)
[2022-09-18 05:45] LABS: Anion Gap 11 (5-15); BUN 20 mg/dL (7-18); BUN/Creat Ratio 19.6 RATIO (10-20); Calcium,Total 9.4 mg/dL (8.5-10.1); Chloride 104 mmol/L (98-107); Creatinine, Serum 1.02 mg/dL (0.55-1.02); EST Glomerular Filtration Rate 57 mL/min (>60); Est Glom Filt Rate - Afr Amer 69 mL/min (>60); Estimated Creatinine Clearance 51.09 ml/min; Glucose 79 mg/dL (74-106); Potassium 3.6 mmol/L (3.5-5.1); Sodium Level 139 mmol/L (136-145)
[2022-09-18] MEDS: 0.9% Normal Saline 1,000 ML 75 ML IV ×2 (08:52→22:37)
--- NOTE | 2022-09-18 09:06 | PCM.PN.SRG ---
Subjective Subjective Patient seen and examined during AM rounds. Her reports that he is heard and his experienced 2 bowel movements overnight while he was away. Patient shakes her head yes and affirmation of this statement. She also reports that she feels better than yesterday with these bowel movements. Objective Data Objective Data Vital Signs: Vital Signs Temp Pulse Resp BP Pulse Ox O2 Del Method O2 Flow Rate 98.4 F 90 18 136/92 H 94 Room Air 4 09/18/22 09:02 09/18/22 09:02 09/18/22 09:02 09/18/22 09:02 09/18/22 09:02 09/18/22 09:02 09/17/22 15:22 Oxygen Flow Rate (L/min) 4 Oxygen Delivery Method Room Air Weight: 133 lb 4.805 oz Body Mass Index (BMI) 19.1 Intake & Output: Intake and Output for Last 24 Hours 09/16/22 09/17/22 09/18/22 23:59 23:59 23:59 Intake Total 1968.33 / 1968.33 1720 / 1720 1000 / 1000 Output Total 2975 / 2975 1425 / 2725 2500 / 2500 Balance -1006.67 / -1006.67 295 / -1005 -1500 / -1500 Lab / Micro Data Result Diagrams: 09/18/22 05:20 09/18/22 05:20 Labs: Laboratory Results - last 24 hr 09/18/22 05:20: WBC 10.7, RBC 3.97 L, Hgb 12.5, Hct 38.0, MCV 95.7, MCH 31.5, MCHC 32.9, RDW Std Deviation 46.9 H, RDW Coeff of Niurka 13.2, Plt Count 167, MPV 10.2, Immature Gran % (Auto) 0.300, Neut % (Auto) 66.2, Lymph % (Auto) 19.5, [place] % (Auto) 11.3 H, Eos % (Auto) 1.9, Baso % (Auto) 0.8, Absolute Neuts (auto) 7.1, Absolute Lymphs (auto) 2.08, Nucleated RBC % 0 09/18/22 05:20: Sodium 139, Potassium 3.6, Chloride 104, Carbon Dioxide 24.0, Anion Gap 11, BUN 20 H, Creatinine 1.02, Estim Creat Clear Calc 51.09, Est GFR (MDRD) Af Amer 69, Est GFR (MDRD) Non-Af 57 L, BUN/Creatinine Ratio 19.6, Glucose 79, Calcium 9.4 Physical Exam Const no apparent distress Constitutional Narrative: Appears oriented to person place and situation Resp normal respiratory effort GI GI Narrative: Nondistended, soft, nontender to palpation x4 quadrants. After review of patient's CT imaging which suggested that patient's gastrostomy retention balloon may not be inflated I checked this retention myself and found the tube to be well anchored Assessment & Plan Assessment/Plan (1) Constipation: PLAN: Patient appears improved this morning following 2 bowel movements yesterday. Given patient's limited ability to communicate, I would like to objectively assess this with a KUB this morning. If this does show a reduction in her fecal burden, I would like to consider reinitiation of tube feeds. She should also be continued on daily prokinetic until she is able to experience at least 1 bowel movement per day.
--- NOTE | 2022-09-18 09:12 | RAD_ITS ---
STUDY: X-RAY - ABDOMEN/PELVIS REASON FOR EXAM: Female, 67 years old. F/u fecal impaction/bowel gas pattern TECHNIQUE: Two AP supine views of the abdomen and pelvis. COMPARISON: September 15, 2022 FINDINGS: Normal visualized lung bases. Port on the left extends to the superior vena cava. There is elevation of the right hemidiaphragm. There are no dilated loops of bowel. There is abundant stool in the colon, with mild improvement. There is no demonstrated free abdominal air. Normal soft tissue structures. There is demineralization of the visualized osseous structures. RAD/Abdomen Single View (Portable) IMPRESSION: Abundant stool, with mild improvement. No obstruction. Electronically Signed: Dhruv Bee MD at 11:09 EST ,
[2022-09-18] MEDS: levETIRAcetam 250 MG Tablet PO ×2 (10:26→20:49)
--- NOTE | 2022-09-18 10:38 | CASEMGMT ---
SHARLENE CM in to pt room, pt and another visitor at bedside. Pt is agreeable to adding SN to her HHC. Pt reports that pt has oxygen through [employer] at 4L at . Update to [place] at [facility] to add SN and aware pt will likely dc over the weekend.
--- NOTE | 2022-09-18 11:24 | PN.HOSP_ITS ---
Subjective Subjective Patient seen and examined. She said she felt better today. was by her bedside. She had 2 bowel movements yesterday. Review of systems otherwise negative. Objective Data Objective Data Vital Signs: Vital Signs Temp Pulse Resp BP Pulse Ox O2 Del Method O2 Flow Rate 98.4 F 90 18 136/92 H 94 Room Air 4 09/18/22 10:02 09/18/22 10:02 09/18/22 10:02 09/18/22 10:02 09/18/22 10:02 09/18/22 10:02 09/18/22 10:02 Oxygen Flow Rate (L/min) 4 Oxygen Delivery Method Room Air Weight: 133 lb 4.805 oz Body Mass Index (BMI) 19.1 Intake & Output: Intake and Output for Last 24 Hours 09/16/22 09/17/22 09/18/22 23:59 23:59 23:59 Intake Total 1968.33 / 1968.33 1720 / 1720 1000 / 1000 Output Total 2975 / 2975 1425 / 2725 2500 / 2500 Balance -1006.67 / -1006.67 295 / -1005 -1500 / -1500 Lab / Micro Data Result Diagrams: 09/18/22 05:20 09/18/22 05:20 Labs: Laboratory Results - last 24 hr 09/18/22 05:20: WBC 10.7, RBC 3.97 L, Hgb 12.5, Hct 38.0, MCV 95.7, MCH 31.5, MCHC 32.9, RDW Std Deviation 46.9 H, RDW Coeff of Niurka 13.2, Plt Count 167, MPV 1 0.2, Immature Gran % (Auto) 0.300, Neut % (Auto) 66.2, Lymph % (Auto) 19.5, [place] % (Auto) 11.3 H, Eos % (Auto) 1.9, Baso % (Auto) 0.8, Absolute Neuts (auto) 7.1, Absolute Lymphs (auto) 2.08, Nucleated RBC % 0 09/18/22 05:20: Sodium 139, Potassium 3.6, Chloride 104, Carbon Dioxide 24.0, Anion Gap 11, BUN 20 H, Creatinine 1.02, Estim Creat Clear Calc 51.09, Est GFR (MDRD) Af Amer 69, Est GFR (MDRD) Non-Af 57 L, BUN/Creatinine Ratio 19.6, Glucose 79, Calcium 9.4 Radiography Diagnostic Testing: Radiology Impression KUB X-Ray 09/18/22 09:12 IMPRESSION: Abundant stool, with mild improvement. No obstruction. Electronically Signed: Dhruv Bee MD at 11:09 EST Reading Location ID and State: [address] [place] [address] , Service support , Physical Exam Const alert and no apparent distress Constitutional Narrative: very frail Orientation / Consciousness: lethargic HEENT head/scalp atraumatic and moist oral mucous membranes Head and Scalp: normocephalic Mouth: oral and palatal mucosa normal Eyes PERRL, EOMs intact bilaterally and conjunctivae normal Eyes Narrative: EOM grossly intact, anicteric Neck no lymphadenopathy, supple and no JVD Resp normal respiratory effort, no retractions, no use of accessory muscles and clear to auscultation bilaterally Cardio regular rate, regular rhythm, S1 normal heart sound and S2 normal heart sound GI normal to inspection, nondistended, normoactive bowel sounds, soft to palpation, non-tender and non-distended GI Narrative: Mild tenderness palpation diffusely without rebound, guarding, rigidity, bowel sounds active Extremity normal to inspection, full ROM and no clubbing, cyanosis or edema Extremity Narrative: No edema appreciated Skin Skin Narrative: suprapubic catheter in place Neuro Neuro Narrative: still weak and frail Sensorium / Orientation: awake Psych Psych Narrative: Cooperative Assessment & Plan Assessment/Plan (1) Abdominal pain: (2) Vomiting: (3) Constipation: PLAN: Plan #Vomiting and constipation * CT abdomen showed increased stool burden, with chronic mild right hydroneprosis and bilateral nonobstructing nephrolithiasis, with 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 * #CKD stage III a * Cr at her baseline. * #Debility due progressive multiple sclerosis * says she has been getting weaker and more debilitated. * PT OT on board. Fall precautions. * Has PEG tube in place and also has a suprapubic catheter. * To follow-up with her neurology on outpatient basis after discharge. * #Asymptomatic bacteriuria * has 2+ bacteria in her urine. Patient however chronically has bacteria in her urine. WIll monitor * #Nutrition: Tube feeds currently on hold. Nutrition consulted. Anticipate resumption of tube feeds once constipation is relieved. DVT prophylaxis: lovenox # Charges/Coding Visit Charges Inpatient E&M: 32462 Subs Hosp L2
--- NOTE | 2022-09-18 11:49 | CHAPLAIN ---
Type of Pastoral Visit ___ Initial Visit _x__ Follow-up Visit ___ On-call Visit ___ General Patient Visit ___ Spiritual Assessment ___ Family Conference ___ Bereavement ___ Rapid Response ___ Code Blue ___ Other (describe below) Pastoral Care Referral From ___ Patient _x__ Family ___ Nurse ___ Physician ___ Green House Manager ___ Tellers Supervisor ___ Other (describe below) Sacrament/Intervention _x__ Active listening ___ Anointing ___ Sabianism ___ Bereavement ___ Communion ___ Justine exploration ___ ___ Life review _x__ Prayer ___ Reconciliation ___ Sacrament of Sick _x__ Supportive presence ___ Wedding ___ Other (describe below) Pastoral Comments follow up to see how progress of patient; pt is able to speak several words and interact herself today; spouse also present and interjects in conversation; overal pt and spouse are satisfied with care and have hope for better outcomes; prayer and presence welcomed
[2022-09-18] MEDS: Bisacodyl 10 MG Suppository RC (17:54)
[2022-09-18] MEDS: Acetaminophen 325 MG Tablet 650 MG PO (20:49)
[2022-09-18] MEDS: MELATONIN 10 MG TABLET PO (20:49)
[2022-09-18] MEDS: Mirtazapine 15 MG Tablet 45 MG PO (20:49)
--- NOTE | 2022-09-18 21:29 | NURSING ---
Patient refused tap water enema after four large bowel movements. Doctor aware.
[2022-09-19 03:00] VITALS: BP 141/87; PULSE 99; RESP 17; TEMP 36.7; O2SAT 99
[2022-09-19 05:02] LABS: Absolute Lymphocyte Count 1.33 X10^3/uL (0.83-4.51); Basophil# 0.07 X10^3/uL; Basophil% 0.9 % (0-1); Eosinophil# 0.19 X10^3/uL; Eosinophils% 2.5 % (0-5); Hematocrit 35.1 % (37-47); Hemoglobin 11.6 g/dL (12.0-15.0); Lymphocyte # 1.33 X10^3/ul (0.83-4.51); Lymphocyte % 17.8 % (19-41); Mean Corpuscular Hgb 31.7 pg (27.0-32.0); Mean Corpuscular Volume 95.9 fL (81-99); Mean Platelet Vol. 10.3 fl (6.2-12.0); Monocyte# 0.87 X10^3/uL; Monocyte% 11.6 % (0-10); NRBC Flagged by Analyzer 0 % (0-5); Neutrophil # 4.99 X10^3/uL (2.7-7.7); Neutrophil % 66.9 % (47-70); Platelet Count 148 K/mm3 (150-450); RBC Distribution Width CV 13.7 % (11.6-14.6); RBC Distribution Width SD 48.1 fl (35.1-43.9); Red Blood Count 3.66 M/mm3 (4.2-5.4); White Blood Count 7.5 K/mm3 (4.4-11.0)
[2022-09-19 05:51] LABS: Anion Gap 10 (5-15); BUN 18 mg/dL (7-18); Calcium,Total 9.2 mg/dL (8.5-10.1); Chloride 104 mmol/L (98-107); Creatinine, Serum 1.06 mg/dL (0.55-1.02); EST Glomerular Filtration Rate 55 mL/min (>60); Est Glom Filt Rate - Afr Amer 66 mL/min (>60); Estimated Creatinine Clearance 49.16 ml/min; Glucose 61 mg/dL (74-106); Potassium 3.3 mmol/L (3.5-5.1); Sodium Level 141 mmol/L (136-145)
[2022-09-19 07:58] VITALS: O2SAT 95
[2022-09-19] MEDS: Potassium Chloride Oral Tablet 20 MEQ 40 MEQ PO (08:10)
--- NOTE | 2022-09-19 08:57 | PN.SURG_ITS ---
Subjective Subjective Patient had several bowel movements last night. Objective Data Objective Data Abdomen is soft and flat no rebound guarding or peritoneal signs are identified Vital Signs: Vital Signs Temp Pulse Resp BP Pulse Ox O2 Del Method O2 Flow Rate 98.1 F 99 17 141/87 H 95 Room Air 4 09/19/22 03:00 09/19/22 03:00 09/19/22 03:00 09/19/22 03:00 09/19/22 07:58 09/19/22 07:58 09/18/22 21:40 Oxygen Flow Rate (L/min) 4 Oxygen Delivery Method Room Air Weight: 133 lb 4.805 oz Body Mass Index (BMI) 19.1 Intake & Output: Intake and Output for Last 24 Hours 09/17/22 09/18/22 09/19/22 23:59 23:59 23:59 Intake Total 1720 / 1720 4080 / 4080 0 / 0 Output Total 1425 / 2725 2500 / 3300 1800 / 1800 Balance 295 / -1005 1580 / 780 -1800 / -1800 Lab / Micro Data Result Diagrams: 09/19/22 04:50 09/19/22 04:50 Labs: Laboratory Results - last 24 hr 09/19/22 04:50: WBC 7.5, RBC 3.66 L, Hgb 11.6 L, Hct 35.1 L, MCV 95.9, MCH 31.7, MCHC 33.0, RDW Std Deviation 48.1 H, RDW Coeff of Niurka 13.7, Plt Count 148 L, MPV 10.3, Immature Gran % (Auto) 0.300, Neut % (Auto) 66.9, Lymph % (Auto) 17.8 L, [place] % (Auto) 11.6 H, Eos % (Auto) 2.5, Baso % (Auto) 0.9, Absolute Neuts (auto) 5.0, Absolute Lymphs (auto) 1.33, Nucleated RBC % 0 09/19/22 04:50: Sodium 141, Potassium 3.3 L, Chloride 104, Carbon Dioxide 27.0, Anion Gap 10, BUN 18, Creatinine 1.06 H, Estim Creat Clear Calc 49.16, Est GFR (MDRD) Af Amer 66, Est GFR (MDRD) Non-Af 55 L, BUN/Creatinine Ratio 17.0, Glucose 61 L, Calcium 9.2 Radiography Diagnostic Testing: Radiology Impression KUB X-Ray 09/18/22 09:12 IMPRESSION: Abundant stool, with mild improvement. No obstruction. Electronically Signed: Dhruv Bee MD at 11:09 EST , Assessment & Plan Assessment/Plan (1) Constipation: PLAN: Patient improving. No surgical indications at this time.
[2022-09-19 09:00] VITALS: BP 149/90; PULSE 98; RESP 16; TEMP 36.7; O2SAT 94
[2022-09-19] MEDS: levETIRAcetam 250 MG Tablet PO ×2 (10:43→21:02)
[2022-09-19] MEDS: Bisacodyl 10 MG Suppository RC (10:51)
[2022-09-19] MEDS: 0.9% Normal Saline 1,000 ML 75 ML IV (10:52)
--- NOTE | 2022-09-19 11:14 | PN.HOSP_ITS ---
Subjective Subjective Patient seen and examined. She feels much better today and had a significant bowel movement yesterday. Review of systems is otherwise negative. She has remained hemodynamically stable. Objective Data Objective Data Vital Signs: Vital Signs Temp Pulse Resp BP Pulse Ox O2 Del Method O2 Flow Rate 98.1 F 99 17 141/87 H 95 Room Air 4 09/19/22 03:00 09/19/22 03:00 09/19/22 03:00 09/19/22 03:00 09/19/22 07:58 09/19/22 07:58 09/18/22 21:40 Oxygen Flow Rate (L/min) 4 Oxygen Delivery Method Room Air Weight: 133 lb 4.805 oz Body Mass Index (BMI) 19.1 Intake & Output: Intake and Output for Last 24 Hours 09/17/22 09/18/22 09/19/22 23:59 23:59 23:59 Intake Total 1720 / 1720 4080 / 4080 918.75 / 918.75 Output Total 1425 / 2725 2500 / 3300 1800 / 1800 Balance 295 / -1005 1580 / 780 -881.25 / -881.25 Lab / Micro Data Result Diagrams: 09/19/22 04:50 09/19/22 04:50 Labs: Laboratory Results - last 24 hr 09/19/22 04:50: WBC 7.5, RBC 3.66 L, Hgb 11.6 L, Hct 35.1 L, MCV 95.9, MCH 31.7, MCHC 33.0, RDW Std Deviation 48.1 H, RDW Coeff of Niurka 13.7, Plt Count 148 L, MPV 10.3, Immature Gran % (Auto) 0.300, Neut % (Auto) 66.9, Lymph % (Auto) 17.8 L, [place] % (Auto) 11.6 H, Eos % (Auto) 2.5, Baso % (Auto) 0.9, Absolute Neuts (auto) 5.0, Absolute Lymphs (auto) 1.33, Nucleated RBC % 0 09/19/22 04:50: Sodium 141, Potassium 3.3 L, Chloride 104, Carbon Dioxide 27.0, Anion Gap 10, BUN 18, Creatinine 1.06 H, Estim Creat Clear Calc 49.16, Est GFR (MDRD) Af Amer 66, Est GFR (MDRD) Non-Af 55 L, BUN/Creatinine Ratio 17.0, Glucose 61 L, Calcium 9.2 Physical Exam Const alert, oriented x3 and no apparent distress Constitutional Narrative: very frail Orientation / Consciousness: lethargic HEENT head/scalp atraumatic and moist oral mucous membranes Head and Scalp: normocephalic Mouth: dry mucous membranes Eyes PERRL, EOMs intact bilaterally and conjunctivae normal Eyes Narrative: EOM grossly intact Neck no lymphadenopathy, supple and no JVD Resp normal respiratory effort, no retractions, no use of accessory muscles and clear to auscultation bilaterally Cardio regular rate, regular rhythm, S1 normal heart sound and S2 normal heart sound GI normal to inspection, nondistended, normoactive bowel sounds, soft to palpation, non-tender and non-distended GI Narrative: Mild tenderness palpation diffusely without rebound, guarding, rigidity, bowel sounds active, PEG tube in situ Extremity normal to inspection and no clubbing, cyanosis or edema Skin Skin Narrative: suprapubic catheter in place Neuro Neuro Narrative: still weak and frail Sensorium / Orientation: awake Psych Psych Narrative: Cooperative Assessment & Plan Assessment/Plan (1) Abdominal pain: (2) Vomiting: (3) Constipation: PLAN: Plan #Vomiting and constipation * CT abdomen showed increased stool burden, with chronic mild right hydroneprosis and bilateral nonobstructing nephrolithiasis, with 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 Has had several bowel movements * given lactulose and suppositories; had several bowel movements overnight. * on iV zofran prn * resume tube feeds #CKD stage IIIa * Cr at her baseline. * #Debility due progressive multiple sclerosis * says she has been getting weaker and more debilitated. * PT OT on board. Fall precautions. * Has PEG tube in place and also has a suprapubic catheter. * To follow-up with her neurology on outpatient basis after discharge. * #Asymptomatic bacteriuria * has 2+ bacteria in her urine. Patient however chronically has bacteria in her urine. WIll monitor * #Nutrition: resume tube feeds today as constipation has resolved. DVT prophylaxis: lovenox Disposition: anticipate discharge home tomorrow Charges/Coding Visit Charges Inpatient E&M: 00368 Subs Hosp L2
[2022-09-19] MEDS: Mupirocin Ointment 22gm Tube 1 APPLIC TOPICAL ×2 (14:14→21:04)
[2022-09-19] MEDS: Baclofen 10 MG Tablet PO (14:15)
[2022-09-19 15:00] VITALS: BP 142/84; PULSE 98; RESP 18; TEMP 36.9; O2SAT 98
[2022-09-19 15:38] LABS: Bacteria 0 SEEN /hpf (None Seen); Mucous, Urine 0 SEEN /hpf (<or=2+); Squamous Epithelial Cells - UA 0 SEEN /hpf (5-10)
[2022-09-19] MEDS: Jevity 1.5. 1,000 ML Bottle 250 ML GT ×3 (16:01→21:04)
[2022-09-19 16:09] LABS: Color, Urine Yellow (Yellow); Glucose, Dipstick Normal (Normal); Ketone-Dipstick 50 mg/dl (Negative); Leukocyte Esterase-Dipstick 500 /ul (Negative); Nitrite-Dipstick Negative (Negative); Occult Blood-Urine 150 /ul (Negative); Protein-Dipstick 30 mg/dl (Negative); Specific Gravity, Urine 1.015 (1.002-1.030); Urine Bilirubin Dipstick Negative (Negative); Urine Clarity Cloudy (Clear); Urine Urobilinogen Normal (Normal); Urine pH 6.5 (5.0 - 8.0)
[2022-09-19 16:23] LABS: Amorphous Sediment 2+; Red Blood Cells-Urine 5-10 SEEN /hpf (0-5); White Blood Cells 50-100 SEEN /hpf (0-5)
[2022-09-19 21:00] VITALS: BP 158/87; PULSE 88; RESP 16; TEMP 36.2; O2SAT 93
[2022-09-19] MEDS: MELATONIN 10 MG TABLET PO (21:02)
[2022-09-19] MEDS: Acetaminophen 325 MG Tablet 650 MG PO (21:02)
[2022-09-19] MEDS: Magnesium Chloride 64 MG Delay Rel.Tablet 128 MG PO (21:02)
[2022-09-19] MEDS: Mirtazapine 15 MG Tablet 45 MG PO (21:03)
[2022-09-19] MEDS: Baclofen 10 MG Tablet 20 MG PO (21:03)
[2022-09-19] MEDS: Atorvastatin Calcium 40 MG Tablet PO (21:03)
[2022-09-20] VITALS (9 sets, daily range): BP systolic 121–145; BP diastolic 75–90; PULSE 68–92; RESP 14–16; TEMP 36.3–36.6; O2SAT 4–100
[2022-09-20] MEDS: Baclofen 10 MG Tablet PO (05:40)
[2022-09-20 07:24] LABS: Absolute Neutrophil Count 3.9 X10^3/uL (2.0-7.7); Basophil# 0.06 X10^3/uL; Basophil% 0.9 % (0-1); Eosinophil# 0.18 X10^3/uL; Eosinophils% 2.8 % (0-5); Hematocrit 36.9 % (37-47); Hemoglobin 12.4 g/dL (12.0-15.0); Mean Corp Hgb Conc 33.6 g/dL (32-36); Mean Corpuscular Volume 95.1 fL (81-99); Mean Platelet Vol. 10.3 fl (6.2-12.0); Monocyte% 12.6 % (0-10); NRBC Flagged by Analyzer 0 % (0-5); Neutrophil # 3.92 X10^3/uL (2.7-7.7); Neutrophil % 61.5 % (47-70); Platelet Count 168 K/mm3 (150-450); RBC Distribution Width CV 14.2 % (11.6-14.6); RBC Distribution Width SD 49.1 fl (35.1-43.9); Red Blood Count 3.88 M/mm3 (4.2-5.4); White Blood Count 6.4 K/mm3 (4.4-11.0)
[2022-09-20 07:43] LABS: Anion Gap 5 (5-15); BUN 19 mg/dL (7-18); BUN/Creat Ratio 17.9 RATIO (10-20); Calcium,Total 9.9 mg/dL (8.5-10.1); Chloride 109 mmol/L (98-107); Creatinine, Serum 1.06 mg/dL (0.55-1.02); EST Glomerular Filtration Rate 55 mL/min (>60); Est Glom Filt Rate - Afr Amer 66 mL/min (>60); Estimated Creatinine Clearance 49.16 ml/min; Glucose 115 mg/dL (74-106); Potassium 3.7 mmol/L (3.5-5.1); Sodium Level 141 mmol/L (136-145)
[2022-09-20] MEDS: Ascorbic Acid 500 MG Tablet 1000 MG PO (08:20)
--- NOTE | 2022-09-20 11:03 | CT_ITS ---
EXAM: CT HEAD WITHOUT INTRAVENOUS CONTRAST CLINICAL INDICATION: lethargic HAS MS TECHNIQUE: Multiple axial images were obtained of the head without intravenous contrast. This CT exam was performed using one or more of the following dose reduction techniques: automated exposure control, adjustment of the mA and/or kV according to patient size, and/or use of iterative reconstruction technique. This report was created using [employer] report generation technology. COMPARISON: CT Head dated 08/03/2022 FINDINGS: BRAIN AND EXTRA-AXIAL SPACES: Chronic lacunar infarct involving the left caudate nucleus again noted. Extensive diminished periventricular white matter again seen which may represent chronic microvascular change or inflammatory demyelination. Prominence of the cortical sulci and ventricles related to volume loss change. No intra- or extra-axial hemorrhage. No intracranial mass or mass effect. Posterior fossa structures are unremarkable. Basal cisterns are patent. BONES/JOINTS: Normal. No discrete lytic or blastic abnormalities. SINUSES: Unremarkable as visualized. No acute sinusitis. MASTOID AIR CELLS: Left mastoid sinus again noted the partially opacified. ORBITS: Visualized globes, extraocular muscles, optic nerves and retrobulbar fat appear unremarkable. CT/Brain/Head without Contrast IMPRESSION: 1. No acute intracranial abnormality. 2. Stable white matter changes. 3. Left mastoid effusion. Electronically Signed: Huey Townsend MD at 12:00 EST ,
[2022-09-20] MEDS: Mupirocin Ointment 22gm Tube 1 APPLIC TOPICAL ×2 (11:54→23:07)
[2022-09-20] MEDS: Iron Polysaccharide Complex 150 MG CAPSULE PO (11:55)
[2022-09-20] MEDS: levETIRAcetam 250 MG Tablet PO ×2 (11:56→23:07)
[2022-09-20] MEDS: Loratadine 10 MG Tablet PO (11:59)
[2022-09-20 12:00] LABS: Bedside Glucose 99 mg/dL (74-106)
[2022-09-20] MEDS: Bisacodyl 10 MG Suppository RC (12:04)
[2022-09-20] MEDS: Jevity 1.5. 1,000 ML Bottle 250 ML GT ×4 (12:20→23:08)
--- NOTE | 2022-09-20 13:08 | NURSING ---
Jevity was administered late due to not being on floor. Pharmacy was called twice regarding this. Given as soon as on floor
[2022-09-20] MEDS: 0.9% Normal Saline 1,000 ML 125 ML IV ×2 (14:51→23:40)
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
[2022-09-20] MEDS: Smz/Tmp Ds Tablet 1 TABLET PO (18:55)
[2022-09-20] MEDS: Mirtazapine 15 MG Tablet 45 MG PO (23:06)
[2022-09-20] MEDS: Baclofen 10 MG Tablet 20 MG PO (23:07)
[2022-09-20] MEDS: Magnesium Chloride 64 MG Delay Rel.Tablet 128 MG PO (23:07)
[2022-09-20] MEDS: Atorvastatin Calcium 40 MG Tablet PO (23:07)
[2022-09-20] MEDS: MELATONIN 10 MG TABLET PO (23:07)
[2022-09-21] VITALS (9 sets, daily range): BP systolic 113–131; BP diastolic 67–76; PULSE 74–83; RESP 14–18; TEMP 36.8–37.2; O2SAT 95–98
[2022-09-21] MEDS: 0.9% Saline Lock 10 ML Syringe IV (06:00)
[2022-09-21 06:10] LABS: Absolute Lymphocyte Count 1.57 X10^3/uL (0.83-4.51); Basophil# 0.05 X10^3/uL; Basophil% 0.9 % (0-1); Eosinophil# 0.27 X10^3/uL; Eosinophils% 4.7 % (0-5); Hematocrit 34.7 % (37-47); Hemoglobin 10.8 g/dL (12.0-15.0); Lymphocyte # 1.57 X10^3/ul (0.83-4.51); Lymphocyte % 27.5 % (19-41); Mean Corp Hgb Conc 31.1 g/dL (32-36); Mean Corpuscular Volume 99.7 fL (81-99); Mean Platelet Vol. 10.3 fl (6.2-12.0); Monocyte# 0.82 X10^3/uL; Monocyte% 14.4 % (0-10); NRBC Flagged by Analyzer 0 % (0-5); Neutrophil # 2.99 X10^3/uL (2.7-7.7); Neutrophil % 52.3 % (47-70); Platelet Count 137 K/mm3 (150-450); RBC Distribution Width CV 14.6 % (11.6-14.6); RBC Distribution Width SD 53.2 fl (35.1-43.9); Red Blood Count 3.48 M/mm3 (4.2-5.4); White Blood Count 5.7 K/mm3 (4.4-11.0)
[2022-09-21] MEDS: Baclofen 10 MG Tablet PO ×2 (06:29→16:41)
[2022-09-21 06:44] LABS: Anion Gap 4 (5-15); BUN 20 mg/dL (7-18); BUN/Creat Ratio 18.7 RATIO (10-20); Calcium,Total 8.9 mg/dL (8.5-10.1); Chloride 112 mmol/L (98-107); Creatinine, Serum 1.07 mg/dL (0.55-1.02); EST Glomerular Filtration Rate 54 mL/min (>60); Est Glom Filt Rate - Afr Amer 66 mL/min (>60); Glucose 86 mg/dL (74-106); Potassium 3.8 mmol/L (3.5-5.1); Sodium Level 144 mmol/L (136-145)
[2022-09-21] MEDS: Mupirocin Ointment 22gm Tube 1 APPLIC TOPICAL ×2 (07:39→21:59)
[2022-09-21] MEDS: levETIRAcetam 250 MG Tablet PO ×2 (07:40→22:00)
[2022-09-21] MEDS: Ascorbic Acid 500 MG Tablet 1000 MG PO (07:40)
[2022-09-21] MEDS: Loratadine 10 MG Tablet PO (07:40)
[2022-09-21] MEDS: Iron Polysaccharide Complex 150 MG CAPSULE PO (07:40)
[2022-09-21] MEDS: Bisacodyl 10 MG Suppository RC (07:40)
[2022-09-21] MEDS: Cinacalcet HCl 30 MG Tablet PO (07:40)
[2022-09-21] MEDS: Smz/Tmp Ds Tablet 1 TABLET PO ×2 (07:41→16:42)
--- NOTE | 2022-09-21 09:35 | NURSING ---
spoke with combine driver regarding pt spouse with questions regarding free water/nutrition. Brigitte states that Loni is the one covering the floor today and she will relay message to Loni.
[2022-09-21] MEDS: Vancomycin IV 1,000 MG/200 ML BAG 200 MG IV (09:38)
[2022-09-21] MEDS: Jevity 1.5. 1,000 ML Bottle 250 ML GT ×4 (09:54→22:01)
--- NOTE | 2022-09-21 09:54 | PCM.RX.CS ---
Consult Type of Consult: New start Suspected Infection: Other - Bacteriuria Labs: Sodium 144 mmol/L (136-145) 09/21/22 06:03 Potassium 3.8 mmol/L (3.5-5.1) 09/21/22 06:03 Chloride 112 mmol/L (98-107) H 09/21/22 06:03 Carbon Dioxide 28.0 mmol/L (21.0-32.0) 09/21/22 06:03 Anion Gap 4 (5-15) L 09/21/22 06:03 BUN 20 mg/dL (7-18) H 09/21/22 06:03 Creatinine 1.07 mg/dL (0.55-1.02) H 09/21/22 06:03 Est GFR (MDRD) Af Amer 66 mL/min (>60) 09/21/22 06:03 Est GFR (MDRD) Non-Af 54 mL/min (>60) L 09/21/22 06:03 BUN/Creatinine Ratio 18.7 RATIO (10-20) 09/21/22 06:03 Glucose 86 mg/dL (74-106) 09/21/22 06:03 Microbiology: Microbiology 09/19/22 15:28 Urine Catheter - Maldonado Urine Culture - Final Enterococcus faecalis Goal Trough: 15-20 mcg/mL Pharmacy Plan for Drug Dosing: NEW START IV VANCOMYCIN Consulting Physician: Dr. Lazo Indication: Bacteriuria Goal Trough: 10-20 SrCr: 1.07 mg/dL (09/21/22) CrCl: 48.7 mL/min Comments: Standard initial dose 1000mg x1 @ 0938 09/21/22 Vancomycin Dose: 750mg Q24H to start @ 0930 09/22/22 Pending Level: Vancomycin trough @ 0900 09/24/22 Pharmacy Service will continue to monitor and adjust dosing as required. Labs to be done on [date and time ordered]: Vancomycin trough @ 0900 09/24/22
--- NOTE | 2022-09-21 10:00 | NURSING ---
pt spouse at bedside. states at home i was giving her 500cc free fluid flushes with each tube feed she was getting. informed spouse nursing cannot change current order. will relay information onto maintenance controller. Loni on floor- updated on spouse request.
--- NOTE | 2022-09-21 13:35 | RAD_ITS ---
STUDY: X-RAY - ABDOMEN/PELVIS REASON FOR EXAM: Female, 67 years old. Constipation TECHNIQUE: 3 supine views. 2 of the upper abdomen, one of the pelvis CT scan abdomen and pelvis September 15, 2022 COMPARISON: September 18, 2022 abdominal series, a CT scan September 15, 2022 abdomen and pelvis FINDINGS: There is a gassy distended appearance of the redundant appearing ascending colon with a narrowed appearance of the distal transverse colon with a decompressed appearance of the descending colon. There is much less stool burdened and seen on the prior study September 15, 2022. There is persistent elevation of the right hemidiaphragm. There is multilevel degenerative change of the thoracolumbar spine. The bones are osteopenic. There are phleboliths in the pelvis. RAD/Abdomen Single View (Portable) IMPRESSION: Gassy appearance of the ascending colon with moderate stool and gas. Improved lesser stool burden than prior. Electronically Signed: Nina Mathias MD at 17:44 EST ,
--- NOTE | 2022-09-21 13:58 | PCM.CONS.GEN ---
Assessment & Plan Assessment/Plan (1) History of multiple sclerosis: (2) Complicated urinary tract infection: PLAN: Ucx with enterococcus. Encephalopathy improved. Cont vanc, plan on d/c home with abx via PEG. Will follow, thank you HPI Consult Data Date of Consult: 09/21/22 HPI Narrative Reason for Consultation: uti HPI Narrative: KEN CASON, is a 67 F with MS, chronic suprapubic cath changed [id number], presented 09/15 with several days worsened mental status, shaking, nausea, vomiting. Has PEG in place. Admitted, on vanc due to enterococcus (+) ucx. Doing better, more interactive per her who is primary caregiver. ROS unobtainable due to mental status. [facility] Medical History (Updated 09/21/22 @ 14:[address] Ted Wright MD) Alcohol use Allergic rhinitis Back pain Bilateral hydronephrosis Blackout Chronic constipation CKD (chronic kidney disease) stage 4, GFR 15-29 ml/min Complicated urinary tract infection Constipation Declining functional status Dental bridge present Depression Difficulty swallowing Endometrial thickening on ultrasound History of echocardiogram History of edema History of wrist fracture Hyperlipidemia Hypertension Indwelling urethral catheter present Insomnia Iron deficiency anemia Loss of hearing Low iron Migraine headache Migraine headache MRSA colonization Multiple sclerosis Multiple sclerosis Muscle spasm Neurogenic bladder Non-smoker OAB (overactive bladder) Pelvic pain Port-A-Cath in place Right hemiparesis Urinary tract infection Uses wheelchair Vitamin D deficiency Wears glasses Home Medications bisacodyl 10 mg rectal suppository (Dulcolax (bisacodyl)) 10 mg RECTAL DAILY constipation 07/01/18 [History Last Taken 09/15/22] acetaminophen 500 mg tablet 1,000 mg PO Q6H PRN Pain 02/15/19 [History Last Taken 03/25/19] baclofen 20 mg tablet 10 mg PO BID MUSCLE SPASMS 05/23/19 [History Last Taken 09/15/22] magnesium oxide 400 mg (241.3 mg magnesium) tablet 400 mg PO QHS magnesium supplement 05/23/19 [History Last Taken 09/14/22] polysaccharide iron complex 150 mg iron capsule 150 mg PO DAILY iron replacement 05/23/19 [History Last Taken 09/15/22] glucosamine WTk-C2-Qfmioxhjl zoey 1,500 mg-400 unit-100 mg tablet (Osteo Bi-Flex (5-Loxin)) 1 tab PO BID supplement 11/15/20 [History Last Taken 09/15/22] krill 1,000 mg-omega-3 170 mg-dha 50 mg-epa 80 hu-pyunkl-errjf capsule (krill oil) 1 ea PO BID supplement 11/15/20 [History Last Taken 09/15/22] vitamin B complex-folic acid 0.4 mg tablet (B Complex 1 (with folic acid)) 1 tab PO DAILY vitamin 11/15/20 [History Last Taken 09/15/22] cholecalciferol (vitamin D3) 1,250 mcg (50,000 unit) capsule 50,000 unit PO QMONTH vitamin 08/15/21 [History Last Taken 09/08/22] tumeric 100 mg-tristian 150 mg-olive 50 mg-oreg 150 mg-caprylate capsule (Candicidal) 2 cap PO BID supplement 08/15/21 [History Last Taken 09/15/22] cinacalcet 30 mg tablet 30 mg PO QODAY hyperparathyroidism 11/24/21 [History Last Taken 09/14/22] fexofenadine 180 mg tablet 180 mg PO DAILY ALLERGIES 07/22/22 [History Last Taken 09/15/22] ondansetron 4 mg disintegrating tablet 4 mg PO Q8H PRN nausea and vomiting #10 tabs 07/22/22 [Rx Last Taken Unknown] ascorbic acid (vitamin C) 1,000 mg tablet,extended release (Vitamin C ER) 1,000 mg PO BREAKFAST SUPPLEMENT 07/23/22 [History Last Taken 09/15/22] baclofen 20 mg tablet 20 mg PO QPM MUSCLE SPASMS 09/10/22 [History Last Taken 09/14/22] levetiracetam 250 mg tablet (Keppra) 250 mg PO BID SEIZURES 09/10/22 [History Last Taken 09/15/22] atorvastatin 40 mg tablet 40 mg PO QHS CHOLESTEROL 09/15/22 [History Last Taken 09/14/22] food supplemt, lactose-reduced 0.08 gram-1.5 kcal/mL oral liquid 250 ml PO 4X/DAY SUPPLEMENT 09/15/22 [History Last Taken 09/15/22] lactulose 10 gram/15 mL oral solution 60 g PO QHS CONSTIPATION 09/15/22 [History Last Taken 09/14/22] melatonin 10 mg tablet 10 mg PO QHS INSOMNIA 09/15/22 [History Last Taken 09/14/22] mirtazapine 30 mg tablet 45 mg PO QHS 09/15/22 [History Last Taken 09/14/22] multivit with dhdfwqkl-nauj-QY-lutein 8 mg iron-400 mcg-300 mcg tablet (Centrum Silver Women) 1 tab PO DAILY health maintenance 09/15/22 [History Last Taken 09/15/22] nystatin 100,000 unit/gram topical powder 1 applic topical DAILY PRN Skin Irritation 09/15/22 [History Last Taken 09/11/22] Allergy/AdvReac Type Severity Reaction Status Date / Time ciprofloxacin [From Cipro] AdvReac hypotension Verified 09/10/22 16:25 dextrose 5 % in water AdvReac Other Verified 09/10/22 16:25 [From Zyvox] doxycycline AdvReac hypotension Verified 09/10/22 16:25 levofloxacin [From Levaquin] AdvReac hypotension Verified 09/10/22 16:25 linezolid [From Zyvox] AdvReac Other Verified 09/10/22 16:25 morphine AdvReac hallucinati Verified 09/10/22 16:25 ons piperacillin [From Zosyn] AdvReac hypotension Verified 09/10/22 16:25 sulfamethoxazole AdvReac hypotension Verified 09/10/22 16:25 [From Bactrim] tazobactam [From Zosyn] AdvReac hypotension Verified 09/10/22 16:25 trimethoprim [From Bactrim] AdvReac hypotension Verified 09/10/22 16:25 vancomycin AdvReac developed Verified 09/10/22 16:25 toxic levels Family History Mother Osteoporosis Grandmother Breast cancer Surgical History H/O cervical polypectomy H/O dilation and curettage History of cystoscopy History of esophagogastroduodenoscopy (EGD) History of tonsillectomy and adenoidectomy History of tympanoplasty Hx of hand surgery Hx of shoulder surgery S/P laparoscopic procedure Social History household members: spouse housing: house Smoking Status: Never smoker alcohol intake: never substance use type: does not use what type of physical activity do you participate in: none seatbelt use: always do you feel safe at home: Yes 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 Result Diagrams: 09/21/22 06:03 09/21/22 06:03 Labs: Laboratory Results - last 24 hr 09/21/22 06:03: WBC 5.7, RBC 3.48 L, Hgb 10.8 L, Hct 34.7 L, MCV 99.7 H, MCH 31.0, MCHC 31.1 L D, RDW Std Deviation 53.2 H, RDW Coeff of [place] 14.6, Plt Count 137 L, MPV 10.3, Immature Gran % (Auto) 0.200, Neut % (Auto) 52.3, Lymph % (Auto) 27.5, [place] % (Auto) 14.4 H, Eos % (Auto) 4.7, Baso % (Auto) 0.9, Absolute Neuts (auto) 3.0, Absolute Lymphs (auto) 1.57, Nucleated RBC % 0 09/21/22 06:03: Sodium 144, Potassium 3.8, Chloride 112 H, Carbon Dioxide 28.0, Anion Gap 4 L, BUN 20 H, Creatinine 1.07 H, Estim Creat Clear Calc 48.70, Est GFR (MDRD) Af Amer 66, Est GFR (MDRD) Non-Af 54 L, BUN/Creatinine Ratio 18.7, Glucose 86, Calcium 8.9 Micro: Microbiology 09/19/22 15:28 Urine Catheter - Maldonado Urine Culture - Final Enterococcus faecalis
[2022-09-21] MEDS: Acetaminophen 325 MG Tablet 650 MG PO (16:42)
--- NOTE | 2022-09-21 16:46 | PCM.PN.HOSP ---
Subjective Subjective indicates that patient's mental status was depressed yesterday as compared to baseline but she was given some IV fluids x1 L and seems to have responded to that. She states that she is very sensitive to fluid and feels that that is likely what caused her mental status change yesterday as she is significantly improved today. He did talk to the dietitian with regards to the changes in her free water down her PEG and was pleased with that conversation. She has bacteriuria of which I am not clear the significance and we discussed this and he is familiar with infectious disease here and was comfortable with having Dr. Arias follow-up to make recommendations as the current colony counts are less than I would consider pertinent for infection plus she has a chronic suprapubic catheter which likely leads to chronic bacteriuria. We left it with the plan being that if she continues to do well clinically to get her home tomorrow and will obtain a repeat KUB to make sure she is cleared out from a GI standpoint. Objective Data Objective Data Vital Signs: Vital Signs Temp Pulse Resp BP Pulse Ox O2 Del Method O2 Flow Rate 98.5 F 78 18 113/70 95 Nasal Cannula 4 09/21/22 14:51 09/21/22 14:51 09/21/22 14:51 09/21/22 14:51 09/21/22 14:51 09/21/22 14:51 09/21/22 14:51 Oxygen Flow Rate (L/min) 4 Oxygen Delivery Method Nasal Cannula Weight: 60.464 kg Body Mass Index (BMI) 19.1 Intake & Output: Intake and Output for Last 24 Hours 09/19/22 09/20/22 09/21/22 23:59 23:59 23:59 Intake Total 2318.75 / 2318.75 4131 / 4561 3200 / 3200 Output Total 3000 / 3750 2050 / 2425 1575 / 1575 Balance -681.25 / -1431.25 2081 / 2136 1625 / 1625 Lab / Micro Data Result Diagrams: 09/21/22 06:03 09/21/22 06:03 Labs: Laboratory Results - last 24 hr 09/21/22 06:03: WBC 5.7, RBC 3.48 L, Hgb 10.8 L, Hct 34.7 L, MCV 99.7 H, MCH 31.0, MCHC 31.1 L D, RDW Std Deviation 53.2 H, RDW Coeff of Niurka 14.6, Plt Count 137 L, MPV 10.3, Immature Gran % (Auto) 0.200, Neut % (Auto) 52.3, Lymph % (Auto) 27.5, [place] % (Auto) 14.4 H, Eos % (Auto) 4.7, Baso % (Auto) 0.9, Absolute Neuts (auto) 3.0, Absolute Lymphs (auto) 1.57, Nucleated RBC % 0 09/21/22 06:03: Sodium 144, Potassium 3.8, Chloride 112 H, Carbon Dioxide 28.0, Anion Gap 4 L, BUN 20 H, Creatinine 1.07 H, Estim Creat Clear Calc 48.70, Est GFR (MDRD) Af Amer 66, Est GFR (MDRD) Non-Af 54 L, BUN/Creatinine Ratio 18.7, Glucose 86, Calcium 8.9 Micro: Microbiology 09/19/22 15:28 Urine Catheter - Maldonado Urine Culture - Final Enterococcus faecalis Physical Exam Const alert and no apparent distress Constitutional Narrative: Upper middle-aged white female lying in bed, alert and does interact and answer questions, at bedside indicates she is doing much better today HEENT head/scalp atraumatic and moist oral mucous membranes Resp normal respiratory effort, no retractions, no use of accessory muscles and clear to auscultation bilaterally Resp Narrative: Diminished at bases likely from poor inspiratory effort Auscultation: Negative for crackles, rhonchi or wheezes Cardio regular rate, regular rhythm, S1 normal heart sound, S2 normal heart sound, no murmurs, no rub, no gallops and no clicks GI normal to inspection, nondistended, normoactive bowel sounds, soft to palpation and non-tender Extremity no clubbing, cyanosis or edema Extremity Narrative: Plantarflexion contractures noted bilateral lower extremities likely related from debility Neuro Neuro Narrative: Cognitively intact, communicates with soft voice, chronic neurological deficits noted related to MS with no acute changes per discussion with , no seizure activity noted at the time of my eval Psych Psych Narrative: Very pleasant Assessment & Plan Assessment/Plan (1) Complicated urinary tract infection: (2) Constipation: (3) Vomiting: (4) Ileus: (5) Dehydration: PLAN: Plan Ileus with vomiting/constipation -Follow-up KUB pending -Patient is having bowel movements -We will continue home lactulose and suppository at discharge with as needed fleets enema -Discussed with avoiding regular fleets enemas and he indicates they only use them as needed -We will also consider MiraLAX in the a.m. to avoid recurrent constipation -Continue as needed Zofran however clinically much improved -We will consider repeat CT depending on KUB however trying to avoid radiation if possible -Patient has tolerated tube feeds for over 48 hours at this time and continues to have bowel movements -General surgery was following however signed off after constipation was relieved Complicated UTI -Enterococcus on culture with colony count 50-80,000 however patient with chronic suprapubic indwelling catheter and mental status change yesterday -ID consulted -Segundoo initiated and will continue for now with plan per IDs note home with antibiotics via PEG -If patient is able to discharge tomorrow will discuss further with infectious disease -Patient is due for suprapubic catheter change tomorrow and will do after discharge tomorrow if able if not we will do here Acute metabolic encephalopathy -Resolved -It appears that this was likely related to fluid balance as reports she is very sensitive to IV fluids -Dietitian following and has made recommendation for changes in parenteral fluids at home via PEG and these were increased here today -Was about he waited by neurology and they had no further input and recommended follow-up with outpatient neurologist CKD stage IIIa -Continue to monitor serum creatinine -Appears to currently be at baseline based on comparison of previous labs Multiple sclerosis with debility -Continue therapies as ordered -Continue PEG to supplement nutrition -Outpatient neurology follow-up has been established -Continue home chronic medications ? Seizure activity -Continue Keppra at 250 mg enterally. twice daily -Seizure precautions -Follow-up with Dr. Lenz as scheduled Hyperlipidemia -Continue atorvastatin Hyperparathyroidism -Continue Cinacalcet Seasonal allergies -Continue medication Depression -Continue home Remeron DVT prophylaxis -Start enoxaparin 30 mg Charges/Coding Visit Charges OBSV E&M: 05008 Subsequent observation care L3
[2022-09-21] MEDS: Mirtazapine 15 MG Tablet 45 MG PO (22:00)
[2022-09-21] MEDS: Atorvastatin Calcium 40 MG Tablet PO (22:00)
[2022-09-21] MEDS: MELATONIN 10 MG TABLET PO (22:00)
[2022-09-21] MEDS: Baclofen 10 MG Tablet 20 MG PO (22:00)
[2022-09-21] MEDS: Magnesium Chloride 64 MG Delay Rel.Tablet 128 MG PO (22:00)
[2022-09-22 02:29] VITALS: BP 122/74; PULSE 68; RESP 16; TEMP 36.7; O2SAT 95
[2022-09-22] MEDS: 0.9% Saline Lock 10 ML Syringe IV (06:06)
[2022-09-22] MEDS: Baclofen 10 MG Tablet PO ×2 (06:06→14:29)
[2022-09-22 06:09] LABS: Absolute Lymphocyte Count 1.49 X10^3/uL (0.83-4.51); Absolute Neutrophil Count 3.3 X10^3/uL (2.0-7.7); Basophil# 0.04 X10^3/uL; Basophil% 0.7 % (0-1); Eosinophil# 0.28 X10^3/uL; Eosinophils% 4.8 % (0-5); Hematocrit 36.4 % (37-47); Hemoglobin 11.4 g/dL (12.0-15.0); Lymphocyte # 1.49 X10^3/ul (0.83-4.51); Lymphocyte % 25.5 % (19-41); Mean Corp Hgb Conc 31.3 g/dL (32-36); Mean Corpuscular Hgb 31.3 pg (27.0-32.0); Mean Platelet Vol. 10.2 fl (6.2-12.0); Monocyte# 0.76 X10^3/uL; NRBC Flagged by Analyzer 0 % (0-5); Neutrophil # 3.26 X10^3/uL (2.7-7.7); Neutrophil % 55.8 % (47-70); Platelet Count 136 K/mm3 (150-450); RBC Distribution Width CV 14.2 % (11.6-14.6); RBC Distribution Width SD 52.8 fl (35.1-43.9); Red Blood Count 3.64 M/mm3 (4.2-5.4); White Blood Count 5.8 K/mm3 (4.4-11.0)
[2022-09-22 06:43] LABS: Anion Gap 3 (5-15); BUN 23 mg/dL (7-18); BUN/Creat Ratio 17.3 RATIO (10-20); Chloride 108 mmol/L (98-107); Creatinine, Serum 1.33 mg/dL (0.55-1.02); EST Glomerular Filtration Rate 42 mL/min (>60); Est Glom Filt Rate - Afr Amer 51 mL/min (>60); Estimated Creatinine Clearance 39.18 ml/min; Glucose 95 mg/dL (74-106); Sodium Level 141 mmol/L (136-145)
[2022-09-22] MEDS: Enoxaparin 30 MG/0.3 ML Syringe SC (07:48)
[2022-09-22] MEDS: Mupirocin Ointment 22gm Tube 1 APPLIC TOPICAL (07:48)
[2022-09-22] MEDS: Ascorbic Acid 500 MG Tablet 1000 MG PO (07:48)
[2022-09-22] MEDS: Smz/Tmp Ds Tablet 1 TABLET PO (07:49)
[2022-09-22] MEDS: Loratadine 10 MG Tablet PO (07:49)
[2022-09-22] MEDS: levETIRAcetam 250 MG Tablet PO (07:49)
[2022-09-22] MEDS: Iron Polysaccharide Complex 150 MG CAPSULE PO (07:49)
[2022-09-22] MEDS: Bisacodyl 10 MG Suppository RC (07:52)
[2022-09-22 08:00] VITALS: BP 108/63; PULSE 68; RESP 18; TEMP 37; O2SAT 96
[2022-09-22 09:00] VITALS: BP 122/74; PULSE 68; RESP 16; TEMP 36.7; O2SAT 95
[2022-09-22 09:26] VITALS: O2SAT 98
--- NOTE | 2022-09-22 10:41 | PCM.PN.ID ---
Physical Exam Narrative Feeling better, no fever, much more awake per Const alert and no apparent distress Resp normal air movement and clear to auscultation bilaterally Cardio regular rate and regular rhythm GI soft to palpation, non-tender and non-distended Skin no rashes or lesions noted ID ID: Route of nutrition/ use of supplements: [] Nutritional Intake: [] IV Site: [] Maldonado Catheter: [] Assessment & Plan Assessment/Plan (1) History of multiple sclerosis: (2) Complicated urinary tract infection: PLAN: Ucx with enterococcus. Encephalopathy improved. On vanc, plan on d/c home with macrobid x5 days. Wrote rx, d/w Dr. Lazo Will follow
[2022-09-22] MEDS: Jevity 1.5. 1,000 ML Bottle 250 ML GT ×2 (10:46→14:29)
[2022-09-22] MEDS: Acetaminophen 325 MG Tablet 650 MG PO (11:10)
[2022-09-22] MEDS: Polyethylene Glycol 3350 17 GM PACKET PO (11:51)
--- NOTE | 2022-09-22 13:12 | DS.PCM_ITS ---
Providers Date of Admission: 09/15/22 Date of Discharge: 09/22/22 Primary Care Physician: Dr. Alexandria Carranza MD Consultations 09/17/22 11:02 Consult: General Surgery Routine Consulting Provider: Ivania Jett Reason for Consult: constipation, concerned it could be something worse EMERGENT Consult: No Notified: Yes Date Notified: 09/17/22 Time Notified: 11:02 Method of Notification: Text 09/21/22 08:27 Consult: Infectious Disease Routine Consulting Provider: Ted Wright Reason for Consult: UTI with MS EMERGENT Consult: No Notified: Yes Date Notified: 09/21/22 Time Notified: 08:27 Method of Notification: Verbal Reason For Visit: VOMITING Diagnosis Discharge Diagnosis (1) History of multiple sclerosis: Status: Acute Code(s): G35 - Multiple sclerosis (2) Complicated urinary tract infection: Status: Acute Code(s): N39.0 - Urinary tract infection, site not specified Medications at Discharge Home Medications bisacodyl 10 mg rectal suppository (Dulcolax (bisacodyl)) 10 mg RECTAL DAILY constipation 07/01/18 acetaminophen 500 mg tablet 1,000 mg PO Q6H PRN Pain 02/15/19 baclofen 20 mg tablet 10 mg PO BID MUSCLE SPASMS 05/23/19 magnesium oxide 400 mg (241.3 mg magnesium) tablet 400 mg PO QHS magnesium supplement 05/23/19 polysaccharide iron complex 150 mg iron capsule 150 mg PO DAILY iron replacement 05/23/19 glucosamine EXt-A8-Tegphkzlf zoey 1,500 mg-400 unit-100 mg tablet (Osteo Bi- Flex (5-Loxin)) 1 tab PO BID supplement 11/15/20 krill 1,000 mg-omega-3 170 mg-dha 50 mg-epa 80 qh-ctzrhq-bidpg capsule (krill oil) 1 ea PO BID supplement 11/15/20 vitamin B complex-folic acid 0.4 mg tablet (B Complex 1 (with folic acid)) 1 tab PO DAILY vitamin 11/15/20 cholecalciferol (vitamin D3) 1,250 mcg (50,000 unit) capsule 50,000 unit PO QMONTH vitamin 08/15/21 tumeric 100 mg-tristian 150 mg-olive 50 mg-oreg 150 mg-caprylate capsule (Candicidal) 2 cap PO BID supplement 08/15/21 cinacalcet 30 mg tablet 30 mg PO QODAY hyperparathyroidism 11/24/21 fexofenadine 180 mg tablet 180 mg PO DAILY ALLERGIES 07/22/22 ondansetron 4 mg disintegrating tablet 4 mg PO Q8H PRN nausea and vomiting #10 tabs 07/22/22 ascorbic acid (vitamin C) 1,000 mg tablet,extended release (Vitamin C ER) 1,000 mg PO BREAKFAST SUPPLEMENT 07/23/22 baclofen 20 mg tablet 20 mg PO QPM MUSCLE SPASMS 09/10/22 levetiracetam 250 mg tablet (Keppra) 250 mg PO BID SEIZURES 09/10/22 atorvastatin 40 mg tablet 40 mg PO QHS CHOLESTEROL 09/15/22 food supplemt, lactose-reduced 0.08 gram-1.5 kcal/mL oral liquid 250 ml PO 4X/DAY SUPPLEMENT 09/15/22 lactulose 10 gram/15 mL oral solution 60 g PO QHS CONSTIPATION 09/15/22 melatonin 10 mg tablet 10 mg PO QHS INSOMNIA 09/15/22 mirtazapine 30 mg tablet 45 mg PO QHS 09/15/22 multivit with fnirscfa-tzqk-AI-lutein 8 mg iron-400 mcg-300 mcg tablet (Centrum Silver Women) 1 tab PO DAILY health maintenance 09/15/22 nystatin 100,000 unit/gram topical powder 1 applic topical DAILY PRN Skin Irrita tion 09/15/22 nitrofurantoin monohydrate/macrocrystals 100 mg capsule (Macrobid) 100 mg PO Q12H 5 days #10 caps 09/22/22 polyethylene glycol 3350 17 gram oral powder packet 17 g PO DAILY #0 ea 09/22/22 Hospital Course Summary of Care Provided Minutes Spent on Discharge: 36 Hospital Course: Mrs. Sharp is a 67-year-old white female with past medical history of multiple sclerosis who presented to the emergency department on 09/15/2022 with an episode of vomiting and shaking. She does get tube feed at baseline and eats orally for pleasure. She had been tolerating her tube feed without any issues and the PEG tube has been flushing easily. On the morning of admission she bega n having a trembling episode and intermittently said she had some chills however her temperature was within normal limits. She then had an episode of emesis which her estimated to be several 100 cc. She was brought to the emergency department at that time and a KUB demonstrated increased stool with possible colonic ileus so a CT was obtained that showed increased stool throughout the colon as well as a PEG tube appropriate place, chronic right mild hydronephrosis with left renal atrophy and bile bilateral nonobstructing nephrolithiasis. 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 Given these findings she was admitted to the medical floor placed on some IV hydration, given antiemetics and started on a bowel regimen. General surgery was consulted on 09/17/2022 and did not believe there was an interposition of the colon with the liver causing obstruction and recommended initiation of bowel prep via gastrostomy tube as well as enemas 3 times daily. Her diet was held at that time. With the above treatment this yielded several bowel movements on the evening of the and tube feed were able to be reinitiated. At the time of discharge she had been on these over 72 hours with good tolerance. A repeat KUB was performed and showed decrease stool burden but still showed evidence of some constipation and gas. With this, we added scheduled MiraLAX in the morning daily as well as to her baseline regimen of lactulose in the evening and a stool softener rectally in the morning. She was also evaluated by the dietitian which recommended changes in her free water regimen at home. She had episodes of mental status depression on the and the feels that this was likely related to her volume status. He indicates she responded extremely well to a liter of IV fluids. Neurology was consulted and recommended continuing her current antiepileptic medication and proceed with outpatient follow-up with neurology as already scheduled. No additional testing was recommended. Her urine culture showed 50-80,000 CFU per high far field of Enterococcus and giving her encephalopathy and ongoing issues with recurrent urinary tract infections infectious disease was consulted. We had her on vancomycin initially and this was changed to Macrobid for 5 more days at discharge. We did recommend a repeat BMP be performed in about a week to vic ssess her volume status and this was discussed with Dr. Carranza who I called prior to discharge. Dr. Carranza plans on following up with the patient next week in her home. The patient's overall condition improve dramatically during her hospital course and per discussion with she was at her baseline on the day of discharge. Discharge diagnoses: Ileus with vomiting/constipation Complicated urinary tract infection Acute metabolic encephalopathy-resolved CKD stage IIIa Facial rash Multiple sclerosis with debility Possible seizure activity Hyperlipidemia Hyperparathyroidism Seasonal allergies Depression Physical Exam Const alert, oriented x3 and no apparent distress Constitutional Narrative: Upper middle-aged white female lying in bed, alert and does interact and answer questions, at the bedside indicates she is even better today than she was yesterday and feels comfortable with going home today General Appearance: cooperative, comfortable and well kempt Orientation / Consciousness: awake HEENT normocephalic, head/scalp atraumatic and moist oral mucous membranes HEENT Narrative: Mallampati is 2-3, no thrush Eyes PERRL and EOMs intact bilaterally Neck supple Neck Narrative: Trachea midline, no thyroid enlargement Resp normal respiratory effort, no retractions, no use of accessory muscles and clear to auscultation bilaterally Resp Narrative: Diminished at bases likely from poor inspiratory effort Auscultation: Negative for crackles, rhonchi or wheezes Cardio regular rate, regular rhythm, S1 normal heart sound, S2 normal heart sound, no murmurs, no rub, no gallops and no clicks GI normal to inspection, nondistended, normoactive bowel sounds, soft to palpation, non-tender and non-distended GI Narrative: PEG tube in place and currently being accessed by nursing Extremity no clubbing, cyanosis or edema Extremity Narrative: Plantarflexion contractures noted bilateral lower extremities likely related from debility Skin Skin Narrative: suprapubic catheter in place, wound over left jawline that appears to be healing Neuro Neuro Narrative: Cognitively intact, communicates with soft voice, chronic neurological deficits noted related to MS with no acute changes per discussion with , no sei zure activity noted at the time of my eval, speech is soft in quality but appropriate Sensorium / Orientation: awake and alert Psych affect normal Psych Narrative: Very pleasant Weight / BMI Weight Weight: 60.464 kg Body Mass Index (BMI) 19.1 ABG / Lab / Microbiology Data Result Diagrams: 09/22/22 06:03 09/22/22 06:03 Laboratory: Laboratory Results - last 24 hr 09/22/22 06:03: WBC 5.8, RBC 3.64 L, Hgb 11.4 L, Hct 36.4 L, MCV 100.0 H, MCH 31.3, MCHC 31.3 L, RDW Std Deviation 52.8 H, RDW Coeff of Niurka 14.2, Plt Count 136 L, MPV 10.2, Immature Gran % (Auto) 0.200, Neut % (Auto) 55.8, Lymph % (Auto) 25.5, [place] % (Auto) 13.0 H, Eos % (Auto) 4.8, Baso % (Auto) 0.7, Absolute Neuts (auto) 3.3, Absolute Lymphs (auto) 1.49, Nucleated RBC % 0 09/22/22 06:03: Sodium 141, Potassium 4.0, Chloride 108 H, Carbon Dioxide 30.0, Anion Gap 3 L, BUN 23 H, Creatinine 1.33 H, Estim Creat Clear Calc 39.18, Est GFR (MDRD) Af Amer 51 L, Est GFR (MDRD) Non-Af 42 L, BUN/Creatinine Ratio 17.3, Glucose 95, Calcium 9.0 Microbiology: Microbiology 09/19/22 15:28 Urine Catheter - Maldonado Urine Culture - Final Enterococcus faecalis Radiography Diagnostic Testing: Radiology Impression KUB X-Ray 09/21/22 13:35 IMPRESSION: Gassy appearance of the ascending colon with moderate stool and gas. Improved lesser stool burden than prior. Electronically Signed: Nina Mathias MD at 17:44 EST Reading Location ID and State: [address] [place] [address] Tel , Service support , D/C Instructions Discharge Diet: - (Continue current tube feed with free water as instructed by dietitian and oral feeds for pleasure) Discharge Activity: Return to Normal Activity Meaningful Use Info Meaningful Use Diagnoses (Choose all that apply): None applicable Discharge Plan Admission Admit Date/Time: 09/15/22 20:31 Primary Reason for Your Visit: Nausea Attending Provider: Tiffanie Lazo Primary Care Provider: Alexandria Carranza Consulting Providers: Nia Orourke ; Ivania Jett ; Karen Marquez ; Ted Wright Instructions Additional Instructions / Restrictions: 1. BMP in 1 week 2. Free water increase as per directed by dietitian 3. Continue Bactroban or Muciporin to left jaw wound until healed Discharge Orders/Prescriptions Prescriptions: New nitrofurantoin monohyd/m-cryst [Macrobid] 100 mg capsule 100 mg PO Q12H 5 Days Qty: 10 0RF Rx Instructions: must administer with a meal/food polyethylene glycol 3350 17 gram Powder In Packet 17 g PO DAILY Qty: 0 0RF Continued bisacodyl [Dulcolax (bisacodyl)] 10 MG suppository 10 mg RECTAL DAILY acetaminophen 500 MG tablet 1,000 mg PO Q6H PRN (Reason: Pain) polysaccharide iron complex 150 MG capsule 150 mg PO DAILY baclofen 20 MG tablet 10 mg PO BID magnesium oxide 400 MG tablet 400 mg PO QHS lqsturpapnc-J6-Qbftinapd serr [Osteo Bi-Flex (5-Loxin)] 1 EACH tablet 1 tab PO BID vitamin B complex-folic acid [B Complex 1 (with folic acid)] 0.4 MG tablet 1 tab PO DAILY [id number]-[id number]-lgn-dfxlrgr-ast [krill oil] 1 EACH capsule 1 ea PO BID Candicidal 100 mg-150 mg- 50 mg-150 mg Capsule 2 cap PO BID cholecalciferol (vitamin D3) 1,250 mcg (50,000 unit) capsule 50,000 unit PO QMONTH cinacalcet 30 mg tablet 30 mg PO QODAY Label Comments: TAKE 1 TABLET BY MOUTH EVERY OTHER DAY WITH FOOD fexofenadine 180 mg Tablet 180 mg PO DAILY ondansetron 4 mg tablet,disintegrating 4 mg PO Q8H PRN (Reason: nausea and vomiting) Qty: 10 0RF Vitamin C 1,000 mg Tablet Extended Release 1,000 mg PO BREAKFAST baclofen 20 mg Tablet 20 mg PO QPM levetiracetam [Keppra] 250 mg Tablet 250 mg PO BID mirtazapine 30 mg Tablet 45 mg PO QHS nystatin 100,000 unit/gram powder 1 applic TOPICAL DAILY PRN (Reason: Skin Irritation) lactulose 10 gram/15 mL Solution 60 g PO QHS Centrum Silver Women 8 mg iron-400 mcg-300 mcg Tablet 1 tab PO DAILY melatonin 10 mg Tablet 10 mg PO QHS atorvastatin 40 mg tablet 40 mg PO QHS food supplemt, lactose-reduced 0.08 gram-1.5 kcal/mL liquid 250 ml PO 4X/DAY Referrals / Follow Up: Alexandria Carranza MD [Primary Care Provider] - Within 2 Weeks Disposition Disposition (needs filled in before D/C Order can be placed): Home Health Service Charges/Coding Visit Charges Inpatient E&M: 66339 Disch Hosp
--- NOTE | 2022-09-22 14:07 | CASEMGMT ---
RN CM in to pt room, pt sleeping and at bedside. Notified Celia at [facility] via vm that pt is dc'ing today and sent message with discliplines to resume and nursing added. Pt requests meds be delivered to the room. TC to pharmacy and spoke with [facility]. Pt denies further homegoing needs.
[2022-09-22 15:25] VITALS: BP 136/79; PULSE 69; RESP 18; TEMP 36.4; O2SAT 98
== END 2022-09-22 15:25 | disposition home health service (06) ==
LOC: ED 19:44 → MS3 21:06
PROVIDERS: Physician Assistant; Student in an Organized Health Care Education/Training Program; Admitting Provider Internal Medicine; Emergency Provider Emergency Medicine; PCP Internal Medicine; Visit Provider Internal Medicine
DX: K56.7 Ileus, unspecified (principal); T83.510A Infection and inflammatory reaction due to cystostomy catheter, initial encounter; Z93.1 Gastrostomy status; Z93.50 Unspecified cystostomy status; G35 Multiple sclerosis; E21.3 Hyperparathyroidism, unspecified; N18.31 Chronic kidney disease, stage 3a; K59.09 Other constipation; N13.6 Pyonephrosis; E78.5 Hyperlipidemia, unspecified; I12.9 Hypertensive chronic kidney disease with stage 1 through stage 4 chronic kidney disease, or unspecified chronic kidney disease; E86.0 Dehydration; R53.81 Other malaise; Z79.899 Other long term (current) drug therapy; N31.9 Neuromuscular dysfunction of bladder, unspecified; R11.2 Nausea with vomiting, unspecified; G93.41 Metabolic encephalopathy; B95.2 Enterococcus as the cause of diseases classified elsewhere; F32.A Depression, unspecified; R21 Rash and other nonspecific skin eruption; Y73.8 Miscellaneous gastroenterology and urology devices associated with adverse incidents, not elsewhere classified
CPT/HCPCS: 36415; 36591; 70450; 74018; 74177; 80048; 80053; 81001; 82962; 85025; 87077; 87086; 87088; 87186; 94762; 96361; 96365; 96366; 96372; 96375; 97110; 97162; 97166; 97530; 97535; 97802; 97803; 99218; 99285; J7030; J7050; Q9967; A4216; G0378; J2405

== ENCOUNTER → 2022-10-13 | Outpatient (CLI) | payer MEDICARE, SELFPAY ==
--- NOTE | 2022-10-13 15:20 | RAD_ITS ---
INDICATION: ILEUS EXAMINATION/TECHNIQUE: X-RAY - XR Abdomen 1 View COMPARISON: 09/21/2022 FINDINGS: BOWEL GAS PATTERN: Non-obstructive. Gaseous colonic distention decreased compared to prior study. Persistent elevation right hemidiaphragm. Stable left-sided port present. Significant colonic fecal retention. FREE AIR: Not assessed on a single supine view. ORGANOMEGALY: Not seen. CALCIFICATIONS: No abnormal calcifications observed. BONES AND SOFT TISSUES: No acute pathology. RAD/Abdomen Single View IMPRESSION: Non-obstructive bowel gas pattern. Electronically Signed: Angel Patel MD at 16:03 EST ,
[2022-10-13 16:19] LABS: Absolute Lymphocyte Count 1.97 X10^3/uL (0.83-4.51); Absolute Neutrophil Count 4.7 X10^3/uL (2.0-7.7); Basophil# 0.04 X10^3/uL; Basophil% 0.5 % (0-1); Eosinophil# 0.26 X10^3/uL; Eosinophils% 3.3 % (0-5); Hematocrit 37.2 % (37-47); Hemoglobin 11.8 g/dL (12.0-15.0); Lymphocyte # 1.97 X10^3/ul (0.83-4.51); Lymphocyte % 25.3 % (19-41); Mean Corp Hgb Conc 31.7 g/dL (32-36); Mean Corpuscular Hgb 31.6 pg (27.0-32.0); Mean Corpuscular Volume 99.5 fL (81-99); Mean Platelet Vol. 10.8 fl (6.2-12.0); Monocyte# 0.83 X10^3/uL; Monocyte% 10.6 % (0-10); NRBC Flagged by Analyzer 0 % (0-5); Neutrophil # 4.67 X10^3/uL (2.7-7.7); Neutrophil % 59.9 % (47-70); Platelet Count 170 K/mm3 (150-450); RBC Distribution Width CV 13.6 % (11.6-14.6); RBC Distribution Width SD 50.1 fl (35.1-43.9); Red Blood Count 3.74 M/mm3 (4.2-5.4); White Blood Count 7.8 K/mm3 (4.4-11.0)
[2022-10-13 16:31] LABS: Erythrocyte Sedimentation Rate 44 mm/hr (0-30)
[2022-10-13 17:21] LABS: ALB/GLOB Ratio 0.8 RATIO (0.9-2.4); AST(SGOT) 12 U/L (15-37); Alanine Aminotransfer ALT/SGPT 19 U/L (13-56); Albumin, Serum 3.4 g/dL (3.2-5.0); Alkaline Phosphatase 100 U/L (45-117); Anion Gap 4 (5-15); BUN 31 mg/dL (7-18); BUN/Creat Ratio 27.7 RATIO (10-20); CRP, High Sensitivity Cardiac 7.69 mg/L; Calcium,Total 9.3 mg/dL (8.5-10.1); Chloride 104 mmol/L (98-107); Creatinine, Serum 1.12 mg/dL (0.55-1.02); EST Glomerular Filtration Rate 52 mL/min (>60); Est Glom Filt Rate - Afr Amer 62 mL/min (>60); Ferritin 267 ng/mL (8-252); Globulin 4.3 g/dL (2.2-4.2); Glucose 100 mg/dL (74-106); Potassium 4.3 mmol/L (3.5-5.1); Prealbumin 24.3 mg/dL (20.0-40.0); Protein, Total 7.7 g/dL (6.4-8.2); Sodium Level 140 mmol/L (136-145)
[2022-10-14 07:51] LABS: PTHIN 45.3 pg/mL (18.4-80.1)
[2022-10-16 17:58] LABS: KEPPRA (LEVETIRACETAM) 22.4 ug/mL (10.0-40.0)
== END | disposition home or self-care (01) ==
PROVIDERS: PCP Internal Medicine; Referring Provider Internal Medicine; Visit Provider Internal Medicine
DX: K56.7 Ileus, unspecified (principal); Z93.59 Other cystostomy status; E46 Unspecified protein-calorie malnutrition; R56.9 Unspecified convulsions; E21.5 Disorder of parathyroid gland, unspecified; N18.30 Chronic kidney disease, stage 3 unspecified; R53.1 Weakness; R89.9 Unspecified abnormal finding in specimens from other organs, systems and tissues; Z86.59 Personal history of other mental and behavioral disorders
CPT/HCPCS: 36591; 74018; 80053; 80177; 82533; 82728; 83970; 84134; 85025; 85652; 86141; A4216

== ENCOUNTER → 2022-11-24 | Outpatient (CLI) | payer MEDICARE, SELFPAY ==
--- NOTE | 2022-11-24 15:22 | BI_ITS ---
MAMMOGRAPHY - BILATERAL SCREENING REASON FOR EXAM: Female, 67 years old. Routine annual screening examination. PERTINENT HISTORY: Grandmother with breast cancer. TECHNIQUE: Digital bilateral breast dalila (3D mammographic acquisition) in the CC and MLO projections. 2-D mediolateral oblique (MLO) and craniocaudad (CC) views of both breasts were obtained. CAD: Full Field Digital Mammography with Computer Added Detection was performed. COMPARISON: Comparison is made with prior study dated 04/28/2021 and 09/14/2019. FINDINGS: Breast Composition: The breasts are heterogeneously dense, which may obscure small masses. There are no dominant masses or suspicious calcifications. No other significant abnormalities are identified. There has been no significant change since the prior study. BI/SCREENING MAMM (CAD), BILAT IMPRESSION: Stable bilateral screening mammogram. Yearly follow-up mammogram recommended. (A) ASSESSMENT CATEGORY: BIRADS Category 1: Negative. A letter regarding these results will be sent to the patient by the facility within 30 days. Approximately 10% of breast cancers are not detected by mammography. A normal mammogram should not delay biopsy of a clinically suspicious abnormality. [id number] Electronically Signed: Luís Hines MD at 8:21 EST ,
[2022-11-24 15:30] LABS: Bacteria 0 SEEN /hpf (None Seen); Mucous, Urine 0 SEEN /hpf (<or=2+); Squamous Epithelial Cells - UA 0 SEEN /hpf (5-10)
[2022-11-24 15:50] LABS: Color, Urine Yellow (Yellow); Glucose, Dipstick Normal (Normal); Ketone-Dipstick Negative (Negative); Leukocyte Esterase-Dipstick 500 /ul (Negative); Nitrite-Dipstick Negative (Negative); Occult Blood-Urine 10 /ul (Negative); Protein-Dipstick Negative (Negative); Specific Gravity, Urine 1.015 (1.002-1.030); Urine Bilirubin Dipstick Negative (Negative); Urine Clarity Clear (Clear); Urine Urobilinogen Normal (Normal)
[2022-11-24 15:51] LABS: ALB/GLOB Ratio 0.8 RATIO (0.9-2.4); AST(SGOT) 17 U/L (15-37); Alanine Aminotransfer ALT/SGPT 22 U/L (13-56); Albumin, Serum 3.3 g/dL (3.2-5.0); Alkaline Phosphatase 90 U/L (45-117); Anion Gap 5 (5-15); BUN 26 mg/dL (7-18); BUN/Creat Ratio 23.9 RATIO (10-20); Calcium,Total 9.5 mg/dL (8.5-10.1); Chloride 102 mmol/L (98-107); Creatinine, Serum 1.09 mg/dL (0.55-1.02); EST Glomerular Filtration Rate 53 mL/min (>60); Est Glom Filt Rate - Afr Amer 64 mL/min (>60); Globulin 4.1 g/dL (2.2-4.2); Glucose 95 mg/dL (74-106); Potassium 4.1 mmol/L (3.5-5.1); Protein, Total 7.4 g/dL (6.4-8.2); Sodium Level 139 mmol/L (136-145)
[2022-11-24 15:52] LABS: Absolute Lymphocyte Count 1.38 X10^3/uL (0.83-4.51); Absolute Neutrophil Count 5.1 X10^3/uL (2.0-7.7); Basophil# 0.04 X10^3/uL; Basophil% 0.5 % (0-1); Eosinophil# 0.36 X10^3/uL; Eosinophils% 4.6 % (0-5); Hematocrit 39.1 % (37-47); Hemoglobin 12.5 g/dL (12.0-15.0); Lymphocyte # 1.38 X10^3/ul (0.83-4.51); Lymphocyte % 17.8 % (19-41); Mean Corpuscular Hgb 31.9 pg (27.0-32.0); Mean Corpuscular Volume 99.7 fL (81-99); Mean Platelet Vol. 10.6 fl (6.2-12.0); Monocyte# 0.89 X10^3/uL; Monocyte% 11.5 % (0-10); NRBC Flagged by Analyzer 0 % (0-5); Neutrophil # 5.05 X10^3/uL (2.7-7.7); Neutrophil % 65.2 % (47-70); Platelet Count 178 K/mm3 (150-450); RBC Distribution Width CV 13.2 % (11.6-14.6); RBC Distribution Width SD 48.7 fl (35.1-43.9); Red Blood Count 3.92 M/mm3 (4.2-5.4); White Blood Count 7.8 K/mm3 (4.4-11.0)
[2022-11-24 15:57] LABS: Erythrocyte Sedimentation Rate 41 mm/hr (0-30)
[2022-11-24 16:00] LABS: Red Blood Cells-Urine 0-5 SEEN /hpf (0-5); White Blood Cells 10-25 SEEN /hpf (0-5)
[2022-11-24 16:25] LABS: Vitamin D,25 Hydroxy 70.3 ng/mL
[2022-11-24 17:05] LABS: PTHIN 131.3 pg/mL (18.4-80.1)
== END | disposition home or self-care (01) ==
PROVIDERS: PCP Internal Medicine; Referring Provider Internal Medicine; Visit Provider Internal Medicine
DX: Z12.31 Encounter for screening mammogram for malignant neoplasm of breast (principal); N18.30 Chronic kidney disease, stage 3 unspecified; R82.90 Unspecified abnormal findings in urine; Z86.59 Personal history of other mental and behavioral disorders
CPT/HCPCS: 36591; 77063; 77067; 80053; 81001; 82306; 83970; 85025; 85652; 86140; 87077; 87086; 87088; 87186; 96523; A4216

== ENCOUNTER → 2022-12-29 | Outpatient (CLI) | payer MEDICARE, SELFPAY ==
--- NOTE | 2022-12-29 12:50 | RAD_ITS ---
STUDY: X-RAY - ABDOMEN/PELVIS REASON FOR EXAM: Female, 67 years old. Ileus. TECHNIQUE: Single AP view of the abdomen / pelvis 2 images. COMPARISON: CT of the abdomen and pelvis dated September 15, 2022. FINDINGS: Normal visualized lung bases. Gaseous distention of small bowel and colon. Probable cecal dilatation in the lower right quadrant of the abdomen. Follow-up abdominal study recommended for this finding. There is no demonstrated free abdominal air. The visualized liver, spleen and kidneys are grossly normal in size and morphology. Normal soft tissue structures. Normal visualized osseous structures. RAD/Abdomen Single View IMPRESSION: Diffuse gaseous distention with slight distention of the cecum. Early cecal volvulus cannot be excluded and follow-up abdominal imaging recommended. No acute finding. Electronically Signed: Del Hector, at 13:19 EDT ,
[2022-12-29 12:59] LABS: Mucous, Urine 0 SEEN /hpf (<or=2+); Squamous Epithelial Cells - UA 0 SEEN /hpf (5-10)
[2022-12-29 13:03] LABS: Absolute Lymphocyte Count 1.77 X10^3/uL (0.83-4.51); Absolute Neutrophil Count 3.3 X10^3/uL (2.0-7.7); Basophil# 0.06 X10^3/uL; Basophil% 0.9 % (0-1); Eosinophil# 0.67 X10^3/uL; Eosinophils% 10.4 % (0-5); Hematocrit 43.1 % (37-47); Hemoglobin 13.8 g/dL (12.0-15.0); Lymphocyte # 1.77 X10^3/ul (0.83-4.51); Lymphocyte % 27.4 % (19-41); Mean Corpuscular Hgb 31.5 pg (27.0-32.0); Mean Corpuscular Volume 98.4 fL (81-99); Mean Platelet Vol. 10.2 fl (6.2-12.0); Monocyte# 0.62 X10^3/uL; Monocyte% 9.6 % (0-10); NRBC Flagged by Analyzer 0 % (0-5); Neutrophil # 3.33 X10^3/uL (2.7-7.7); Neutrophil % 51.4 % (47-70); Platelet Count 173 K/mm3 (150-450); RBC Distribution Width CV 13.3 % (11.6-14.6); RBC Distribution Width SD 48.2 fl (35.1-43.9); Red Blood Count 4.38 M/mm3 (4.2-5.4); White Blood Count 6.5 K/mm3 (4.4-11.0)
[2022-12-29 13:09] LABS: Color, Urine Yellow (Yellow); Glucose, Dipstick Normal (Normal); Ketone-Dipstick Negative (Negative); Leukocyte Esterase-Dipstick 500 /ul (Negative); Nitrite-Dipstick Positive (Negative); Occult Blood-Urine 150 /ul (Negative); Protein-Dipstick 30 mg/dl (Negative); Specific Gravity, Urine 1.005 (1.002-1.030); Urine Bilirubin Dipstick Negative (Negative); Urine Clarity Clear (Clear); Urine Urobilinogen Normal (Normal)
[2022-12-29 13:17] LABS: ALB/GLOB Ratio 0.8 RATIO (0.9-2.4); AST(SGOT) 21 U/L (15-37); Alanine Aminotransfer ALT/SGPT 28 U/L (13-56); Albumin, Serum 3.4 g/dL (3.2-5.0); Alkaline Phosphatase 90 U/L (45-117); Anion Gap 4 (5-15); BUN 19 mg/dL (7-18); BUN/Creat Ratio 18.3 RATIO (10-20); Calcium,Total 8.7 mg/dL (8.5-10.1); Chloride 105 mmol/L (98-107); Creatinine, Serum 1.04 mg/dL (0.55-1.02); EST Glomerular Filtration Rate 56 mL/min (>60); Est Glom Filt Rate - Afr Amer 68 mL/min (>60); Globulin 4.3 g/dL (2.2-4.2); Glucose 80 mg/dL (74-106); Phosphorus 2.5 mg/dL (2.5-4.9); Potassium 4.3 mmol/L (3.5-5.1); Protein, Total 7.7 g/dL (6.4-8.2); Sodium Level 138 mmol/L (136-145)
[2022-12-29 13:20] LABS: PTHIN 365.3 pg/mL (18.4-80.1)
[2022-12-29 13:47] LABS: Bacteria 3+ /hpf (None Seen); Red Blood Cells-Urine 5-10 SEEN /hpf (0-5); White Blood Cells 50-100 SEEN /hpf (0-5)
== END | disposition home or self-care (01) ==
PROVIDERS: PCP Internal Medicine; Referring Provider Internal Medicine; Visit Provider Internal Medicine
DX: N18.30 Chronic kidney disease, stage 3 unspecified (principal); R82.90 Unspecified abnormal findings in urine
CPT/HCPCS: 36591; 74018; 80053; 81001; 82306; 83970; 84100; 85025; 87077; 87086; 87088; 87186; A4216

== ENCOUNTER 2023-01-28 12:44 | Outpatient (CLI) | payer MEDICARE, SELFPAY ==
[2023-01-28 13:22] LABS: Mucous, Urine 0 SEEN /hpf (<or=2+); Squamous Epithelial Cells - UA 0 SEEN /hpf (5-10)
[2023-01-28 13:25] LABS: Absolute Neutrophil Count 3.4 X10^3/uL (2.0-7.7); Basophil# 0.07 X10^3/uL; Basophil% 1.1 % (0-1); Eosinophil# 0.37 X10^3/uL; Eosinophils% 5.7 % (0-5); Hematocrit 42.6 % (37-47); Hemoglobin 13.5 g/dL (12.0-15.0); Lymphocyte % 29.4 % (19-41); Mean Corp Hgb Conc 31.7 g/dL (32-36); Mean Corpuscular Hgb 31.1 pg (27.0-32.0); Mean Corpuscular Volume 98.2 fL (81-99); Monocyte% 10.8 % (0-10); NRBC Flagged by Analyzer 0 % (0-5); Neutrophil # 3.41 X10^3/uL (2.7-7.7); Neutrophil % 52.8 % (47-70); Platelet Count 192 K/mm3 (150-450); RBC Distribution Width CV 14.1 % (11.6-14.6); RBC Distribution Width SD 51.5 fl (35.1-43.9); Red Blood Count 4.34 M/mm3 (4.2-5.4); White Blood Count 6.5 K/mm3 (4.4-11.0)
[2023-01-28 13:29] LABS: Color, Urine Yellow (Yellow); Glucose, Dipstick Normal (Normal); Ketone-Dipstick Negative (Negative); Leukocyte Esterase-Dipstick 500 /ul (Negative); Nitrite-Dipstick Positive (Negative); Occult Blood-Urine 25 /ul (Negative); Protein-Dipstick Negative (Negative); Specific Gravity, Urine 1.005 (1.002-1.030); Urine Bilirubin Dipstick Negative (Negative); Urine Clarity Sl. Cloudy (Clear); Urine Urobilinogen Normal (Normal)
[2023-01-28 13:41] LABS: Red Blood Cells-Urine 0-5 SEEN /hpf (0-5); White Blood Cells 25-50 SEEN /hpf (0-5)
[2023-01-28 13:42] LABS: ALB/GLOB Ratio 0.7 RATIO (0.9-2.4); AST(SGOT) 21 U/L (15-37); Alanine Aminotransfer ALT/SGPT 27 U/L (13-56); Albumin, Serum 3.4 g/dL (3.2-5.0); Alkaline Phosphatase 108 U/L (45-117); Anion Gap 3 (5-15); BUN 24 mg/dL (7-18); BUN/Creat Ratio 23.8 RATIO (10-20); Bacteria 1+ /hpf (None Seen); Calcium,Total 8.9 mg/dL (8.5-10.1); Chloride 106 mmol/L (98-107); Creatinine, Serum 1.01 mg/dL (0.55-1.02); EST Glomerular Filtration Rate 58 mL/min (>60); Est Glom Filt Rate - Afr Amer 70 mL/min (>60); Globulin 4.6 g/dL (2.2-4.2); Glucose 71 mg/dL (74-106); Potassium 4.3 mmol/L (3.5-5.1); Sodium Level 138 mmol/L (136-145)
[2023-01-28 14:06] LABS: PTHIN 241.2 pg/mL (18.4-80.1)
[2023-01-28 14:09] LABS: Vitamin D,25 Hydroxy 65.2 ng/mL
== END 2023-01-28 12:45 | disposition home or self-care (01) ==
LOC: MEDOUTP 12:44
PROVIDERS: PCP Internal Medicine; Referring Provider Internal Medicine; Visit Provider Internal Medicine
DX: Z45.2 Encounter for adjustment and management of vascular access device (principal); G81.90 Hemiplegia, unspecified affecting unspecified side; N18.30 Chronic kidney disease, stage 3 unspecified; R82.90 Unspecified abnormal findings in urine; Z86.59 Personal history of other mental and behavioral disorders
CPT/HCPCS: 36591; 80053; 81001; 82306; 83970; 85025; 87086; A4216

== ENCOUNTER → 2023-01-28 | Outpatient (CLI) | payer MEDICARE, SELFPAY ==
--- NOTE | 2023-01-28 11:11 | NM_ITS ---
CLINICAL: 67-year-old female with history of chronic nausea. SEMI-SOLID PHASE 99m Tc SULFUR COLLOID GASTRIC EMPTYING STUDY COMPARISON: Gastric emptying report 05/26/2019 FINDINGS: The patient was administered 1.0 mCi of 99m Tc sulfur colloid mixed with oatmeal and consumed per os. Image acquisitions in the anterior-posterior projections were obtained for 60 minutes. There is prompt visualization of the stomach. There is no gastroesophageal reflux identified. The T ? raw data emptying was calculated to be 0.94 minutes, (Normal: 12-56 minutes). NM/Gastric Emptying Study IMPRESSION: 1. ABNORMAL 99m Tc sulfur colloid semi-solid phase (oatmeal) gastric emptying imaging examination. A. There is accelerated semi-solid phase gastric emptying compared to normal controls. (Elie et al, J Nucl Med Tech 38: 186, 2010). Electronically Signed: Bill Campbell, at 21:49 EDT ,
== END | disposition home or self-care (01) ==
LOC: NM 11:10
PROVIDERS: PCP Internal Medicine; Referring Provider Internal Medicine; Visit Provider Internal Medicine
DX: Z45.2 Encounter for adjustment and management of vascular access device (principal); G81.90 Hemiplegia, unspecified affecting unspecified side; N18.30 Chronic kidney disease, stage 3 unspecified; R82.90 Unspecified abnormal findings in urine; Z86.31 Personal history of diabetic foot ulcer; R11.0 Nausea
CPT/HCPCS: 36591; 78264; 80053; 81001; 82306; 83970; 85025; 87077; 87086; 87088; 87186; A9541; A4216

== ENCOUNTER 2023-03-08 15:30 | Outpatient (CLI) | payer MEDICARE, SELFPAY ==
[2023-03-08 15:56] LABS: Mucous, Urine 0 SEEN /hpf (<or=2+); Squamous Epithelial Cells - UA 0 SEEN /hpf (5-10)
[2023-03-08 15:58] LABS: Absolute Neutrophil Count 4.4 X10^3/uL (2.0-7.7); Basophil# 0.08 X10^3/uL; Basophil% 1.2 % (0-1); Eosinophil# 0.42 X10^3/uL; Eosinophils% 6.1 % (0-5); Hematocrit 42.3 % (37-47); Hemoglobin 13.8 g/dL (12.0-15.0); Lymphocyte % 18.9 % (19-41); Mean Corp Hgb Conc 32.6 g/dL (32-36); Mean Corpuscular Hgb 31.4 pg (27.0-32.0); Mean Corpuscular Volume 96.4 fL (81-99); Mean Platelet Vol. 9.7 fl (6.2-12.0); Monocyte% 10.2 % (0-10); NRBC Flagged by Analyzer 0 % (0-5); Neutrophil # 4.36 X10^3/uL (2.7-7.7); Neutrophil % 63.3 % (47-70); Platelet Count 208 K/mm3 (150-450); RBC Distribution Width CV 14.2 % (11.6-14.6); RBC Distribution Width SD 50.6 fl (35.1-43.9); Red Blood Count 4.39 M/mm3 (4.2-5.4); White Blood Count 6.9 K/mm3 (4.4-11.0)
[2023-03-08 16:01] LABS: Color, Urine Yellow (Yellow); Glucose, Dipstick Normal (Normal); Ketone-Dipstick Negative (Negative); Leukocyte Esterase-Dipstick 500 /ul (Negative); Nitrite-Dipstick Negative (Negative); Occult Blood-Urine 250 /ul (Negative); Protein-Dipstick 30 mg/dl (Negative); Urine Bilirubin Dipstick Negative (Negative); Urine Clarity Sl. Cloudy (Clear); Urine Urobilinogen Normal (Normal)
[2023-03-08 16:19] LABS: Bacteria 1+ /hpf (None Seen); Red Blood Cells-Urine 0-5 SEEN /hpf (0-5); White Blood Cells 25-50 SEEN /hpf (0-5)
[2023-03-08 16:30] LABS: ALB/GLOB Ratio 0.7 RATIO (0.9-2.4); AST(SGOT) 17 U/L (15-37); Alanine Aminotransfer ALT/SGPT 23 U/L (13-56); Albumin, Serum 3.4 g/dL (3.2-5.0); Alkaline Phosphatase 85 U/L (45-117); Anion Gap 5 (5-15); BUN 28 mg/dL (7-18); BUN/Creat Ratio 25.5 RATIO (10-20); Calcium,Total 9.5 mg/dL (8.5-10.1); Chloride 102 mmol/L (98-107); EST Glomerular Filtration Rate 53 mL/min (>60); Est Glom Filt Rate - Afr Amer 64 mL/min (>60); Globulin 4.8 g/dL (2.2-4.2); Glucose 111 mg/dL (74-106); Potassium 4.6 mmol/L (3.5-5.1); Protein, Total 8.2 g/dL (6.4-8.2); Sodium Level 138 mmol/L (136-145)
[2023-03-08 16:35] LABS: Vitamin D,25 Hydroxy 51.3 ng/mL
[2023-03-09 09:19] LABS: PTHIN 205.7 pg/mL (18.4-80.1)
== END 2023-03-08 15:31 | disposition home or self-care (01) ==
LOC: MEDOUTP 15:30
PROVIDERS: PCP Internal Medicine; Referring Provider Internal Medicine; Visit Provider Internal Medicine
DX: G81.90 Hemiplegia, unspecified affecting unspecified side (principal); E46 Unspecified protein-calorie malnutrition; R56.9 Unspecified convulsions; N18.30 Chronic kidney disease, stage 3 unspecified; R82.90 Unspecified abnormal findings in urine; Z86.59 Personal history of other mental and behavioral disorders; R89.9 Unspecified abnormal finding in specimens from other organs, systems and tissues
CPT/HCPCS: 36591; 80053; 81001; 82306; 83970; 85025; 87077; 87086; 87088; 87186; A4216

== ENCOUNTER 2023-03-21 14:09 | Emergency (ER) | payer MEDICARE, SELFPAY ==
[2023-03-21 14:10] VITALS: BP 103/68; PULSE 82; RESP 14; TEMP 36.6; O2SAT 93
--- NOTE | 2023-03-21 17:00 | RAD_ITS ---
INDICATION: peg tiube replacement -- Gastrografin EXAMINATION/TECHNIQUE: X-RAY - XR Abdomen 1 View COMPARISON: FINDINGS: BOWEL GAS PATTERN: Non-obstructive. There is a gastric tube in good position. Contrast is seen in the stomach, duodenum and in the proximal jejunum. FREE AIR: Not assessed on a single supine view. ORGANOMEGALY: Not seen. CALCIFICATIONS: No abnormal calcifications observed. LOWER CHEST: No acute pathology. BONES AND SOFT TISSUES: No acute pathology. RAD/Abdomen Single View (Portable) IMPRESSION: Gastric tube in good position. There is no evidence of contrast leak. Electronically Signed: Juanjose Garg MD at 17:41 EDT ,
--- NOTE | 2023-03-21 17:28 | EX.ED.DYSGE1 ---
HPI History of Present Illness Chief Complaint: General Illness Narrative Narrative: Patient has PEG tube placed by Dr. Zmaarripa. It instantly came out last night overnight sometime. states that he found it this morning. Has not noticed any problems with his bowels. [facility] Medical History Age-related cognitive decline Alcohol use Allergic rhinitis Back pain Bilateral hydronephrosis Blackout Chronic constipation Chronic kidney disease, stage 3 unspecified CKD (chronic kidney disease) stage 4, GFR 15-29 ml/min Complicated urinary tract infection Constipation Declining functional status Dental bridge present Depression Difficulty swallowing Elevated sed rate Elevated serum globulin level Endometrial thickening on ultrasound History of echocardiogram History of edema History of multiple sclerosis History of wrist fracture Hyperlipidemia Hypertension Hypoxia Indwelling urethral catheter present Insomnia Iron deficiency anemia Loss of hearing Low iron Malnutrition Migraine headache Migraine headache MRSA colonization Multiple sclerosis Multiple sclerosis Muscle spasm Neurogenic bladder Non-smoker OAB (overactive bladder) Occlusion and stenosis of bilateral carotid arteries Partial seizure Pelvic pain Poor appetite Port-A-Cath in place Right hemiparesis Suprapubic catheter Urinary tract infection Uses wheelchair Vitamin D deficiency Weakness Wears glasses Home Medications bisacodyl 10 mg rectal suppository (Dulcolax (bisacodyl)) 10 mg RECTAL DAILY constipation 07/01/18 [History Last Taken 09/15/22] acetaminophen 500 mg tablet 1,000 mg PO Q6H PRN Pain 02/15/19 [History Last Taken 03/25/19] magnesium oxide 400 mg (241.3 mg magnesium) tablet 400 mg PO QHS magnesium supplement 05/23/19 [History Last Taken 09/14/22] polysaccharide iron complex 150 mg iron capsule 150 mg PO DAILY iron replacement 05/23/19 [History Last Taken 09/15/22] glucosamine YGm-F4-Wnvzpedco zoey 1,500 mg-400 unit-100 mg tablet (Osteo Bi-Flex (5-Loxin)) 1 tab PO BID supplement 11/15/20 [History Last Taken 09/15/22] krill 1,000 mg-omega-3 170 mg-dha 50 mg-epa 80 em-tsebtt-xbysu capsule (krill oil) 1 ea PO BID supplement 11/15/20 [History Last Taken 09/15/22] vitamin B complex-folic acid 0.4 mg tablet (B Complex 1 (with folic acid)) 1 tab PO DAILY vitamin 11/15/20 [History Last Taken 09/15/22] cholecalciferol (vitamin D3) 1,250 mcg (50,000 unit) capsule 50,000 unit PO QMONTH vitamin 08/15/21 [History Last Taken 09/08/22] tumeric 100 mg-tristian 150 mg-olive 50 mg-oreg 150 mg-caprylate capsule (Candicidal) 2 cap PO BID supplement 08/15/21 [History Last Taken 09/15/22] cinacalcet 30 mg tablet 30 mg PO QODAY hyperparathyroidism 11/24/21 [History Last Taken 09/14/22] fexofenadine 180 mg tablet 180 mg PO DAILY ALLERGIES 07/22/22 [History Last Taken 09/15/22] ondansetron 4 mg disintegrating tablet 4 mg PO Q8H PRN nausea and vomiting #10 tabs 07/22/22 [Rx Last Taken Unknown] ascorbic acid (vitamin C) 1,000 mg tablet,extended release (Vitamin C ER) 1,000 mg PO BREAKFAST SUPPLEMENT 07/23/22 [History Last Taken 09/15/22] baclofen 20 mg tablet 20 mg PO QPM MUSCLE SPASMS 09/10/22 [History Last Taken 09/14/22] levetiracetam 250 mg tablet (Keppra) 250 mg PO BID SEIZURES 09/10/22 [History Last Taken 09/15/22] atorvastatin 40 mg tablet 40 mg PO QHS CHOLESTEROL 09/15/22 [History Last Taken 09/14/22] food supplemt, lactose-reduced 0.08 gram-1.5 kcal/mL oral liquid 250 ml PO 4X/DAY SUPPLEMENT 09/15/22 [History Last Taken 09/15/22] lactulose 10 gram/15 mL oral solution 60 g PO QHS CONSTIPATION 09/15/22 [History Last Taken 09/14/22] melatonin 10 mg tablet 10 mg PO QHS INSOMNIA 09/15/22 [History Last Taken 09/14/22] mirtazapine 30 mg tablet 45 mg PO QHS 09/15/22 [History Last Taken 09/14/22] multivit with qkzereth-bohh-HV-lutein 8 mg iron-400 mcg-300 mcg tablet (Centrum Silver Women) 1 tab PO DAILY health maintenance 09/15/22 [History Last Taken 09/15/22] nystatin 100,000 unit/gram topical powder 1 applic topical DAILY PRN Skin Irritation 09/15/22 [History Last Taken 09/11/22] nitrofurantoin monohydrate/macrocrystals 100 mg capsule (Macrobid) 100 mg PO Q12H 5 days #10 caps 09/22/22 [Rx Last Taken Unknown] polyethylene glycol 3350 17 gram oral powder packet 17 g PO DAILY #0 ea 09/22/22 [Rx Last Taken Unknown] Allergy/AdvReac Type Severity Reaction Status Date / Time ciprofloxacin [From Cipro] AdvReac hypotension Verified 03/21/23 14:12 dextrose 5 % in water AdvReac Other Verified 03/21/23 14:12 [From Zyvox] doxycycline AdvReac hypotension Verified 03/21/23 14:12 levofloxacin [From Levaquin] AdvReac hypotension Verified 03/21/23 14:12 linezolid [From Zyvox] AdvReac Other Verified 03/21/23 14:12 morphine AdvReac hallucinati Verified 03/21/23 14:12 ons piperacillin [From Zosyn] AdvReac hypotension Verified 03/21/23 14:12 sulfamethoxazole AdvReac hypotension Verified 03/21/23 14:12 [From Bactrim] tazobactam [From Zosyn] AdvReac hypotension Verified 03/21/23 14:12 trimethoprim [From Bactrim] AdvReac hypotension Verified 03/21/23 14:12 vancomycin AdvReac developed Verified 03/21/23 14:12 toxic levels Family History Mother Osteoporosis Grandmother Breast cancer Father Hypertension HLD (hyperlipidemia) Surgical History H/O cervical polypectomy H/O dilation and curettage History of cystoscopy History of esophagogastroduodenoscopy (EGD) History of tonsillectomy and adenoidectomy History of tympanoplasty Hx of hand surgery Hx of shoulder surgery S/P laparoscopic procedure S/P percutaneous endoscopic gastrostomy (PEG) tube placement Social History household members: spouse housing: house Smoking Status: Never smoker alcohol intake: never substance use type: does not use what type of physical activity do you participate in: none seatbelt use: always do you feel safe at home: Yes 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 Stoma looks patent. Neuro Sensorium / Orientation: alert Psych mental status grossly normal Skin no rashes or lesions noted MDM MDM MDM Narrative Medical decision making narrative: Patient presenting for PEG tube replacement. Her is not sure what size she had previously. He did not bring this with him. I was able to look at the notes and see that she has a 20 [place] PEG tube placed. I had this replaced. We had a Gastrografin KUB which showed no evidence of contrast leak on my interpretation. Radiology interprets this and agrees. Patient discharged to the care of her . Impression: 1. PEG tube replacement Radiography Diagnostic Testing: Clinical Impression(s) from Imaging Studies KUB X-Ray 03/21/23 17:00 IMPRESSION: Gastric tube in good position. There is no evidence of contrast leak. Electronically Signed: Juanjose Garg MD at 17:41 EDT , Discharge Plan Triage Chief Complaint: General Illness ED Provider: Samuel Wesley Dx/Rx/DC Orders Instructions: ED Feeding Tube Replacement Prescriptions: No Action bisacodyl [Dulcolax (bisacodyl)] 10 MG suppository 10 mg RECTAL DAILY acetaminophen 500 MG tablet 1,000 mg PO Q6H PRN (Reason: Pain) polysaccharide iron complex 150 MG capsule 150 mg PO DAILY magnesium oxide 400 MG tablet 400 mg PO QHS [id number]-A8-Rkfydjmyf serr [Osteo Bi-Flex (5-Loxin)] 1 EACH tablet 1 tab PO BID vitamin B complex-folic acid [B Complex 1 (with folic acid)] 0.4 MG tablet 1 tab PO DAILY bwlgb-mm-8-uuh-rev-nlhjyrr-ast [krill oil] 1 EACH capsule 1 ea PO BID Candicidal 100 mg-150 mg- 50 mg-150 mg Capsule 2 cap PO BID cholecalciferol (vitamin D3) 1,250 mcg (50,000 unit) capsule 50,000 unit PO QMONTH cinacalcet 30 mg tablet 30 mg PO QODAY Label Comments: TAKE 1 TABLET BY MOUTH EVERY OTHER DAY WITH FOOD fexofenadine 180 mg Tablet 180 mg PO DAILY ondansetron 4 mg tablet,disintegrating 4 mg PO Q8H PRN (Reason: nausea and vomiting) Qty: 10 0RF Vitamin C 1,000 mg Tablet Extended Release 1,000 mg PO BREAKFAST baclofen 20 mg Tablet 20 mg PO QPM levetiracetam [Keppra] 250 mg Tablet 250 mg PO BID mirtazapine 30 mg Tablet 45 mg PO QHS nystatin 100,000 unit/gram powder 1 applic TOPICAL DAILY PRN (Reason: Skin Irritation) lactulose 10 gram/15 mL Solution 60 g PO QHS Centrum Silver Women 8 mg iron-400 mcg-300 mcg Tablet 1 tab PO DAILY melatonin 10 mg Tablet 10 mg PO QHS atorvastatin 40 mg tablet 40 mg PO QHS food supplemt, lactose-reduced 0.08 gram-1.5 kcal/mL liquid 250 ml PO 4X/DAY nitrofurantoin monohyd/m-cryst [Macrobid] 100 mg capsule 100 mg PO Q12H 5 Days Qty: 10 0RF Rx Instructions: must administer with a meal/food polyethylene glycol 3350 17 gram Powder In Packet 17 g PO DAILY Qty: 0 0RF Primary Care Provider: Alexandria Carranza Referrals: Alexandria Carranza MD [Primary Care Provider] - Disposition Disposition: Home, Self Care Discharge Date/Time: 03/21/23 18:09
[2023-03-21 18:08] VITALS: BP 138/79; PULSE 81; RESP 16; O2SAT 98
== END 2023-03-21 18:09 | disposition home or self-care (01) ==
PROVIDERS: Emergency Provider Student in an Organized Health Care Education/Training Program; PCP Internal Medicine; Visit Provider Student in an Organized Health Care Education/Training Program
DX: K94.23 Gastrostomy malfunction (principal); G35 Multiple sclerosis; N18.4 Chronic kidney disease, stage 4 (severe); I12.9 Hypertensive chronic kidney disease with stage 1 through stage 4 chronic kidney disease, or unspecified chronic kidney disease; E78.5 Hyperlipidemia, unspecified; Z79.899 Other long term (current) drug therapy
CPT/HCPCS: 74018; 99282

== ENCOUNTER 2023-04-08 15:18 | Outpatient (CLI) | payer MEDICARE, SELFPAY ==
[2023-04-08] MEDS: 0.9 % NaCl (Sterile) Posiflush 10 mL IV (15:39)
[2023-04-08] MEDS: 0.9% NaCl VAD Flush IV (15:40)
[2023-04-08 15:45] VITALS: BP 131/78; PULSE 86; RESP 16; TEMP 35.6; O2SAT 93
[2023-04-08 15:54] LABS: Mucous, Urine 0 SEEN /hpf (<or=2+); Squamous Epithelial Cells - UA 0 SEEN /hpf (5-10)
[2023-04-08 16:01] LABS: Color, Urine Yellow (Yellow); Glucose, Dipstick Normal (Normal); Ketone-Dipstick Negative (Negative); Leukocyte Esterase-Dipstick 500 /ul (Negative); Nitrite-Dipstick Negative (Negative); Occult Blood-Urine 150 /ul (Negative); Protein-Dipstick 30 mg/dl (Negative); Urine Bilirubin Dipstick Negative (Negative); Urine Clarity Sl. Cloudy (Clear); Urine Urobilinogen Normal (Normal)
[2023-04-08 16:06] LABS: Absolute Lymphocyte Count 1.48 X10^3/uL (0.83-4.51); Absolute Neutrophil Count 5.5 X10^3/uL (2.0-7.7); Basophil# 0.08 X10^3/uL; Basophil% 0.9 % (0-1); Eosinophil# 0.48 X10^3/uL; Eosinophils% 5.6 % (0-5); Hematocrit 41.8 % (37-47); Hemoglobin 12.9 g/dL (12.0-15.0); Lymphocyte # 1.48 X10^3/ul (0.83-4.51); Lymphocyte % 17.4 % (19-41); Mean Corp Hgb Conc 30.9 g/dL (32-36); Mean Corpuscular Hgb 30.8 pg (27.0-32.0); Mean Corpuscular Volume 99.8 fL (81-99); Mean Platelet Vol. 10.5 fl (6.2-12.0); Monocyte# 0.93 X10^3/uL; Monocyte% 10.9 % (0-10); NRBC Flagged by Analyzer 0 % (0-5); Neutrophil % 64.8 % (47-70); Platelet Count 209 K/mm3 (150-450); RBC Distribution Width SD 51.5 fl (35.1-43.9); Red Blood Count 4.19 M/mm3 (4.2-5.4); White Blood Count 8.5 K/mm3 (4.4-11.0)
[2023-04-08 16:07] LABS: POSITIVE COUNT NO; POSITIVE DIFFERENTIAL NO; POSITIVE MORPHOLOGY NO
[2023-04-08 16:18] LABS: Bacteria 1+ /hpf (None Seen); Red Blood Cells-Urine 0-5 SEEN /hpf (0-5); White Blood Cells >100 SEEN /hpf (0-5)
[2023-04-08 16:29] LABS: ALB/GLOB Ratio 0.7 RATIO (0.9-2.4); AST(SGOT) 17 U/L (15-37); Alanine Aminotransfer ALT/SGPT 30 U/L (13-56); Albumin, Serum 3.2 g/dL (3.2-5.0); Alkaline Phosphatase 91 U/L (45-117); Anion Gap 5 (5-15); BUN 35 mg/dL (7-18); BUN/Creat Ratio 33.7 RATIO (10-20); Chloride 101 mmol/L (98-107); Creatinine, Serum 1.04 mg/dL (0.55-1.02); EST Glomerular Filtration Rate 56 mL/min (>60); Est Glom Filt Rate - Afr Amer 68 mL/min (>60); Globulin 4.7 g/dL (2.2-4.2); Glucose 100 mg/dL (74-106); Potassium 4.5 mmol/L (3.5-5.1); Protein, Total 7.9 g/dL (6.4-8.2); Sodium Level 139 mmol/L (136-145)
[2023-04-08 16:55] LABS: Vitamin D,25 Hydroxy 75.7 ng/mL
[2023-04-09 07:41] LABS: PTHIN 58.7 pg/mL (18.4-80.1)
== END 2023-04-08 15:19 | disposition home or self-care (01) ==
LOC: MEDOUTP 15:18
PROVIDERS: PCP Internal Medicine; Referring Provider Internal Medicine; Visit Provider Internal Medicine
DX: R82.90 Unspecified abnormal findings in urine (principal); N18.30 Chronic kidney disease, stage 3 unspecified; Z86.59 Personal history of other mental and behavioral disorders; R89.8 Other abnormal findings in specimens from other organs, systems and tissues
CPT/HCPCS: 36591; 80053; 81001; 82306; 83970; 85025; 87077; 87086; 87088; 87186; A4216

== ENCOUNTER → 2023-05-13 | Outpatient (CLI) | payer MEDICARE, SELFPAY ==
[2023-05-13 18:03] LABS: Mucous, Urine 0 SEEN /hpf (<or=2+); Squamous Epithelial Cells - UA 0 SEEN /hpf (5-10)
[2023-05-13 18:50] LABS: Color, Urine Yellow (Yellow); Glucose, Dipstick Normal (Normal); Ketone-Dipstick Negative (Negative); Leukocyte Esterase-Dipstick 500 /ul (Negative); Nitrite-Dipstick Positive (Negative); Occult Blood-Urine 150 /ul (Negative); Protein-Dipstick 15 mg/dl (Negative); Specific Gravity, Urine 1.015 (1.002-1.030); Urine Bilirubin Dipstick Negative (Negative); Urine Clarity Clear (Clear); Urine Urobilinogen Normal (Normal)
[2023-05-13 18:57] LABS: Bacteria RARE /hpf (None Seen); Red Blood Cells-Urine 0-5 SEEN /hpf (0-5); White Blood Cells 5-10 SEEN /hpf (0-5)
== END | disposition home or self-care (01) ==
PROVIDERS: PCP Internal Medicine; Visit Provider Internal Medicine
DX: R39.9 Unspecified symptoms and signs involving the genitourinary system (principal)
CPT/HCPCS: 81001; 87077; 87086; 87088; 87186

== ENCOUNTER 2023-05-17 14:52 | Outpatient (CLI) | payer MEDICARE, SELFPAY ==
[2023-05-17 15:39] LABS: Absolute Lymphocyte Count 1.22 X10^3/uL (0.83-4.51); Absolute Neutrophil Count 5.5 X10^3/uL (2.0-7.7); Basophil# 0.08 X10^3/uL; Eosinophil# 0.44 X10^3/uL; Eosinophils% 5.3 % (0-5); Hematocrit 41.3 % (37-47); Hemoglobin 12.7 g/dL (12.0-15.0); Lymphocyte # 1.22 X10^3/ul (0.83-4.51); Lymphocyte % 14.7 % (19-41); Mean Corp Hgb Conc 30.8 g/dL (32-36); Mean Corpuscular Hgb 30.7 pg (27.0-32.0); Mean Corpuscular Volume 99.8 fL (81-99); Mean Platelet Vol. 10.7 fl (6.2-12.0); Monocyte# 1.01 X10^3/uL; Monocyte% 12.2 % (0-10); NRBC Flagged by Analyzer 0 % (0-5); Neutrophil # 5.51 X10^3/uL (2.7-7.7); Neutrophil % 66.4 % (47-70); Platelet Count 183 K/mm3 (150-450); RBC Distribution Width CV 14.2 % (11.6-14.6); RBC Distribution Width SD 51.5 fl (35.1-43.9); Red Blood Count 4.14 M/mm3 (4.2-5.4); White Blood Count 8.3 K/mm3 (4.4-11.0)
[2023-05-17 15:53] LABS: Vitamin D,25 Hydroxy 55.1 ng/mL
[2023-05-17 15:58] LABS: BNP,B-Type NATRIURETIC PEPTIDE 32.5 pg/mL (0-100)
[2023-05-17 16:00] LABS: Erythrocyte Sedimentation Rate 41 mm/hr (0-30)
[2023-05-17 16:01] LABS: ALB/GLOB Ratio 0.7 RATIO (0.9-2.4); AST(SGOT) 25 U/L (15-37); Alanine Aminotransfer ALT/SGPT 43 U/L (13-56); Albumin, Serum 3.2 g/dL (3.2-5.0); Alkaline Phosphatase 87 U/L (45-117); Anion Gap 4 (5-15); BUN 33 mg/dL (7-18); BUN/Creat Ratio 27.7 RATIO (10-20); CRP 6.31 mg/L (0.0-3.0); Calcium,Total 8.5 mg/dL (8.5-10.1); Chloride 99 mmol/L (98-107); Creatinine, Serum 1.19 mg/dL (0.55-1.02); EST Glomerular Filtration Rate 48 mL/min (>60); Est Glom Filt Rate - Afr Amer 58 mL/min (>60); Free T3 1.9 pg/mL (2.18-3.98); Globulin 4.7 g/dL (2.2-4.2); Glucose 112 mg/dL (74-106); Potassium 4.3 mmol/L (3.5-5.1); Protein, Total 7.9 g/dL (6.4-8.2); Sodium Level 135 mmol/L (136-145); Thyroid Stim Hormone (TSH) 2.11 uIU/mL (0.358-3.74)
[2023-05-18 08:31] LABS: PTHIN 108.7 pg/mL (18.4-80.1)
[2023-05-19 15:08] LABS: PROEL- A/G Ratio 0.8 (0.7-1.7); PROEL- Albumin 3.1 g/dL (2.9-4.4); PROEL- Alpha-1 Globulin 0.3 g/dL (0.0-0.4); PROEL- Alpha-2 Globulin 0.8 g/dL (0.4-1.0); PROEL- Beta Globulin 1.3 g/dL (0.7-1.3); PROEL- Gamma Globulin 1.4 g/dL (0.4-1.8); PROEL- Globulin, Total 3.8 g/dL (2.2-3.9); PROEL- TOTAL PROTEIN 6.9 g/dL (6.0-8.5)
== END 2023-05-17 14:53 | disposition home or self-care (01) ==
LOC: MEDOUTP 14:52
PROVIDERS: PCP Internal Medicine; Referring Provider Internal Medicine; Visit Provider Internal Medicine
DX: R53.1 Weakness (principal); E46 Unspecified protein-calorie malnutrition; R56.9 Unspecified convulsions; N18.30 Chronic kidney disease, stage 3 unspecified; Z86.59 Personal history of other mental and behavioral disorders; R89.9 Unspecified abnormal finding in specimens from other organs, systems and tissues; R82.90 Unspecified abnormal findings in urine; R06.02 Shortness of breath; R77.1 Abnormality of globulin; R53.83 Other fatigue
CPT/HCPCS: 36591; 80053; 82306; 83880; 83970; 84165; 84443; 84481; 85025; 85652; 86140; A4216

== ENCOUNTER 2023-05-26 15:52 | Emergency (ER) | payer MEDICARE, SELFPAY ==
[2023-05-26 15:55] VITALS: BP 145/80; PULSE 90; RESP 16; TEMP 36; O2SAT 96; BMI 23.0
--- NOTE | 2023-05-26 16:40 | EX.ED.DYSGE1 ---
HPI History of Present Illness Chief Complaint: Other, Pain/Inj Detail of Chief Complaint: PEG tube dislodged Informant: patient and spouse/S.O. Narrative Narrative: Patient presents after PEG tube became dislodged today. Was initially placed last fall. voices concern that there has been leaking around the PEG tube and is not sure that this is the right size. Patient is also had significant nausea anytime feeds are given through her PEG tube. [facility] Medical History Age-related cognitive decline Alcohol use Allergic rhinitis Back pain Bilateral hydronephrosis Blackout Chronic constipation Chronic kidney disease, stage 3 unspecified CKD (chronic kidney disease) stage 4, GFR 15-29 ml/min Complicated urinary tract infection Constipation Declining functional status Dental bridge present Depression Difficulty swallowing Elevated sed rate Elevated serum globulin level Endometrial thickening on ultrasound History of echocardiogram History of edema History of multiple sclerosis History of wrist fracture Hyperlipidemia Hypertension Hypoxia Indwelling urethral catheter present Insomnia Iron deficiency anemia Loss of hearing Low iron Malnutrition Migraine headache Migraine headache MRSA colonization Multiple sclerosis Multiple sclerosis Muscle spasm Neurogenic bladder Non-smoker OAB (overactive bladder) Occlusion and stenosis of bilateral carotid arteries Partial seizure Pelvic pain Poor appetite Port-A-Cath in place Right hemiparesis Suprapubic catheter Urinary tract infection Uses wheelchair Vitamin D deficiency Weakness Wears glasses Home Medications bisacodyl 10 mg rectal suppository (Dulcolax (bisacodyl)) 10 mg RECTAL DAILY constipation 07/01/18 [History Last Taken 09/15/22] acetaminophen 500 mg tablet 1,000 mg PO Q6H PRN Pain 02/15/19 [History Last Taken 03/25/19] magnesium oxide 400 mg (241.3 mg magnesium) tablet 400 mg PO QHS magnesium supplement 05/23/19 [History Last Taken 09/14/22] polysaccharide iron complex 150 mg iron capsule 150 mg PO DAILY iron replacement 05/23/19 [History Last Taken 09/15/22] glucosamine BEd-J5-Dxjumtcxe zoey 1,500 mg-400 unit-100 mg tablet (Osteo Bi-Flex (5-Loxin)) 1 tab PO BID supplement 11/15/20 [History Last Taken 09/15/22] krill 1,000 mg-omega-3 170 mg-dha 50 mg-epa 80 jt-aomtvc-pupzq capsule (krill oil) 1 ea PO BID supplement 11/15/20 [History Last Taken 09/15/22] vitamin B complex-folic acid 0.4 mg tablet (B Complex 1 (with folic acid)) 1 tab PO DAILY vitamin 11/15/20 [History Last Taken 09/15/22] cholecalciferol (vitamin D3) 1,250 mcg (50,000 unit) capsule 50,000 unit PO QMONTH vitamin 08/15/21 [History Last Taken 09/08/22] tumeric 100 mg-tristian 150 mg-olive 50 mg-oreg 150 mg-caprylate capsule (Candicidal) 2 cap PO BID supplement 08/15/21 [History Last Taken 09/15/22] cinacalcet 30 mg tablet 30 mg PO QODAY hyperparathyroidism 11/24/21 [History Last Taken 09/14/22] fexofenadine 180 mg tablet 180 mg PO DAILY ALLERGIES 07/22/22 [History Last Taken 09/15/22] ondansetron 4 mg disintegrating tablet 4 mg PO Q8H PRN nausea and vomiting #10 tabs 07/22/22 [Rx Last Taken Unknown] ascorbic acid (vitamin C) 1,000 mg tablet,extended release (Vitamin C ER) 1,000 mg PO BREAKFAST SUPPLEMENT 07/23/22 [History Last Taken 09/15/22] baclofen 20 mg tablet 20 mg PO QPM MUSCLE SPASMS 09/10/22 [History Last Taken 09/14/22] levetiracetam 250 mg tablet (Keppra) 250 mg PO BID SEIZURES 09/10/22 [History Last Taken 09/15/22] atorvastatin 40 mg tablet 40 mg PO QHS CHOLESTEROL 09/15/22 [History Last Taken 09/14/22] food supplemt, lactose-reduced 0.08 gram-1.5 kcal/mL oral liquid 250 ml PO 4X/DAY SUPPLEMENT 09/15/22 [History Last Taken 09/15/22] lactulose 10 gram/15 mL oral solution 60 g PO QHS CONSTIPATION 09/15/22 [History Last Taken 09/14/22] melatonin 10 mg tablet 10 mg PO QHS INSOMNIA 09/15/22 [History Last Taken 09/14/22] mirtazapine 30 mg tablet 45 mg PO QHS 09/15/22 [History Last Taken 09/14/22] wkyqujdj-iduf-qakn 8 mg-folic 400 mcg-K 50 mcg-lutein 300 mcg tablet (Centrum Silver Women) 1 tab PO DAILY health maintenance 09/15/22 [History Last Taken 09/15/22] nystatin 100,000 unit/gram topical powder 1 applic topical DAILY PRN Skin Irritation 09/15/22 [History Last Taken 09/11/22] nitrofurantoin monohydrate/macrocrystals 100 mg capsule (Macrobid) 100 mg PO Q12H 5 days #10 caps 09/22/22 [Rx Last Taken Unknown] polyethylene glycol 3350 17 gram oral powder packet 17 g PO DAILY #0 ea 09/22/22 [Rx Last Taken Unknown] Allergy/AdvReac Type Severity Reaction Status Date / Time ciprofloxacin [From Cipro] AdvReac hypotension Verified 05/26/23 16:04 dextrose 5 % in water AdvReac Other Verified 05/26/23 16:04 [From Zyvox] doxycycline AdvReac hypotension Verified 05/26/23 16:04 levofloxacin [From Levaquin] AdvReac hypotension Verified 05/26/23 16:04 linezolid [From Zyvox] AdvReac Other Verified 05/26/23 16:04 morphine AdvReac hallucinati Verified 05/26/23 16:04 ons piperacillin [From Zosyn] AdvReac hypotension Verified 05/26/23 16:04 sulfamethoxazole AdvReac hypotension Verified 05/26/23 16:04 [From Bactrim] tazobactam [From Zosyn] AdvReac hypotension Verified 05/26/23 16:04 trimethoprim [From Bactrim] AdvReac hypotension Verified 05/26/23 16:04 vancomycin AdvReac developed Verified 05/26/23 16:04 toxic levels Family History Mother Osteoporosis Grandmother Breast cancer Father Hypertension HLD (hyperlipidemia) Surgical History H/O cervical polypectomy H/O dilation and curettage History of cystoscopy History of esophagogastroduodenoscopy (EGD) History of tonsillectomy and adenoidectomy History of tympanoplasty Hx of hand surgery Hx of shoulder surgery S/P laparoscopic procedure S/P percutaneous endoscopic gastrostomy (PEG) tube placement Social History household members: spouse housing: house Smoking Status: Never smoker alcohol intake: never substance use type: does not use what type of physical activity do you participate in: none seatbelt use: always do you feel safe at home: Yes 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 Constitutional Constitutional ED: Denies chills or fever(s) Eyes Eyes: Denies change in vision ENT ENT ED: Denies rhinorrhea or sore throat Cardiovascular Cardiovascular: Denies chest pain Respiratory/Chest Respiratory/Chest: Denies cough or dyspnea Gastrointestinal Gastrointestinal: Reports nausea; Denies abdominal pain or vomiting Musculoskeletal Musculoskeletal: Denies back pain or extremity pain Integumentary Denies Abrasions or rash Neurologic Neurologic: Reports weakness; Denies headache(s) Psychiatric Psychiatric: Denies anxiety or depression Allergic/Immunologic Allergic/Immunologic ED: Denies lip swelling or urticaria EXAM Physical Exam Const Vital Signs: 05/26/23 15:55 05/26/23 15:59 Temperature 96.8 F L Temperature Source Temporal Pulse Rate 90 Respiratory Rate 16 Respiratory Effort Normal Non-Labored Respiratory Pattern Normal Blood Pressure 145/80 H Blood Pressure Mean 101 Pulse Ox 96 Oxygen Delivery Method Room Air Positive well nourished and well developed General Appearance ED: well developed HEENT Reports moist mucous membranes Eyes EOMs intact bilaterally Chest Wall inspection of chest normal and palpation of chest normal Resp normal respiratory effort and clear to auscultation bilaterally Cardio regular rate and regular rhythm GI GI Narrative: Abdomen is soft and nontender. PEG tube site is clean with some granulation tissue noted. Neuro Neuro Narrative: History of MS with generalized weakness. MDM MDM MDM Narrative Medical decision making narrative: Due to 's concerns I did speak Dr. Zamarripa, on-call for surgery. He was generous enough to come to the emergency room to evaluate the patient and place new PEG tube. KUB with Gastrografin obtained following PEG tube placement. Per my interpretation PEG tube appears in good position with contrast filling the stomach. Patient will be discharged home. Discharge Plan Triage Chief Complaint: Other, Pain/Inj ED Provider: Sharita Coronel Dx/Rx/DC Orders Clinical Impression: PEG tube malfunction Instructions: ED Feeding Tube Replacement Prescriptions: No Action bisacodyl [Dulcolax (bisacodyl)] 10 MG suppository 10 mg RECTAL DAILY acetaminophen 500 MG tablet 1,000 mg PO Q6H PRN (Reason: Pain) polysaccharide iron complex 150 MG capsule 150 mg PO DAILY magnesium oxide 400 MG tablet 400 mg PO QHS eysduahycnj-L3-Qzuswssum serr [Osteo Bi-Flex (5-Loxin)] 1 EACH tablet 1 tab PO BID vitamin B complex-folic acid [B Complex 1 (with folic acid)] 0.4 MG tablet 1 tab PO DAILY vmycl-oy-3-nwv-jfv-aqyseiz-ast [krill oil] 1 EACH capsule 1 ea PO BID Candicidal 100 mg-150 mg- 50 mg-150 mg Capsule 2 cap PO BID cholecalciferol (vitamin D3) 1,250 mcg (50,000 unit) capsule 50,000 unit PO QMONTH cinacalcet 30 mg tablet 30 mg PO QODAY Patient Comments: TAKE 1 TABLET BY MOUTH EVERY OTHER DAY WITH FOOD fexofenadine 180 mg Tablet 180 mg PO DAILY ondansetron 4 mg tablet,disintegrating 4 mg PO Q8H PRN (Reason: nausea and vomiting) Qty: 10 0RF Vitamin C 1,000 mg Tablet Extended Release 1,000 mg PO BREAKFAST baclofen 20 mg Tablet 20 mg PO QPM levetiracetam [Keppra] 250 mg Tablet 250 mg PO BID mirtazapine 30 mg Tablet 45 mg PO QHS nystatin 100,000 unit/gram powder 1 applic TOPICAL DAILY PRN (Reason: Skin Irritation) lactulose 10 gram/15 mL Solution 60 g PO QHS Centrum Silver Women 8 mg iron-400 mcg-300 mcg Tablet 1 tab PO DAILY melatonin 10 mg Tablet 10 mg PO QHS atorvastatin 40 mg tablet 40 mg PO QHS food supplemt, lactose-reduced 0.08 gram-1.5 kcal/mL liquid 250 ml PO 4X/DAY nitrofurantoin monohyd/m-cryst [Macrobid] 100 mg capsule 100 mg PO Q12H 5 Days Qty: 10 0RF Rx Instructions: must administer with a meal/food polyethylene glycol 3350 17 gram Powder In Packet 17 g PO DAILY Qty: 0 0RF Primary Care Provider: Alexandria Carranza Referrals: Alexandria Carranza MD [Primary Care Provider] - As Needed Amari Zamarripa MD [Med Staff - Active Staff] - As Needed Disposition Disposition: Home, Self Care
[2023-05-26] MEDS: Silver Nitrate (BKC) 1 EACH TOPICAL (17:02)
--- NOTE | 2023-05-26 17:08 | HP.PCM_ITS ---
HPI - General General Chief Complaint: Displaced gastrostomy HPI Narrative KEN CASON, is a 68 F, who is known to me from a prior hospital stay fall 2021 that involved placement of a percutaneous endoscopic gastrostomy tube, who presents today with her due to a displaced gastrostomy tube. Given patient's compromised neurologic status her provides the history. He insist that the tube was not inadvertently pulled out this time and once again apologizes profusely for the displacement that occurred months ago. He also adds that his seems to have developed some significant nausea in response to her tube feedings. He states that a work-up has been ongoing through her primary care physician, but a cause for his nausea has not been identified. He specifically mentions that a gastric emptying study showed rapid emptying of the contrast administered. He also insists that constipation is not a factor and he is scientology about maintaining a bowel regimen for his . He reports that nearly every day she has a cow zahraa sized bowel movement, but does state that the last several days the volume has been somewhat smaller. He reports that she is due for another round of imaging tomorrow. Lastly he communicates that there has been an appointment made with Dr. Cummings of gastroenterology to see if he may shed some insight into this issue. This appointment is made for June. [facility] Medical History Age-related cognitive decline Alcohol use Allergic rhinitis Back pain Bilateral hydronephrosis Blackout Chronic constipation Chronic kidney disease, stage 3 unspecified CKD (chronic kidney disease) stage 4, GFR 15-29 ml/min Complicated urinary tract infection Constipation Declining functional status Dental bridge present Depression Difficulty swallowing Elevated sed rate Elevated serum globulin level Endometrial thickening on ultrasound History of echocardiogram History of edema History of multiple sclerosis History of wrist fracture Hyperlipidemia Hypertension Hypoxia Indwelling urethral catheter present Insomnia Iron deficiency anemia Loss of hearing Low iron Malnutrition Migraine headache Migraine headache MRSA colonization Multiple sclerosis Multiple sclerosis Muscle spasm Neurogenic bladder Non-smoker OAB (overactive bladder) Occlusion and stenosis of bilateral carotid arteries Partial seizure Pelvic pain Poor appetite Port-A-Cath in place Right hemiparesis Suprapubic catheter Urinary tract infection Uses wheelchair Vitamin D deficiency Weakness Wears glasses Home Medications bisacodyl 10 mg rectal suppository (Dulcolax (bisacodyl)) 10 mg RECTAL DAILY constipation 07/01/18 [History Last Taken 09/15/22] acetaminophen 500 mg tablet 1,000 mg PO Q6H PRN Pain 02/15/19 [History Last Taken 03/25/19] magnesium oxide 400 mg (241.3 mg magnesium) tablet 400 mg PO QHS magnesium supplement 05/23/19 [History Last Taken 09/14/22] polysaccharide iron complex 150 mg iron capsule 150 mg PO DAILY iron replacement 05/23/19 [History Last Taken 09/15/22] glucosamine LUn-L2-Plopeilft zoey 1,500 mg-400 unit-100 mg tablet (Osteo Bi- Flex (5-Loxin)) 1 tab PO BID supplement 11/15/20 [History Last Taken 09/15/22] krill 1,000 mg-omega-3 170 mg-dha 50 mg-epa 80 up-yivaab-qvvbb capsule (krill oil) 1 ea PO BID supplement 11/15/20 [History Last Taken 09/15/22] vitamin B complex-folic acid 0.4 mg tablet (B Complex 1 (with folic acid)) 1 tab PO DAILY vitamin 11/15/20 [History Last Taken 09/15/22] cholecalciferol (vitamin D3) 1,250 mcg (50,000 unit) capsule 50,000 unit PO QMONTH vitamin 08/15/21 [History Last Taken 09/08/22] tumeric 100 mg-tristian 150 mg-olive 50 mg-oreg 150 mg-caprylate capsule (Candicidal) 2 cap PO BID supplement 08/15/21 [History Last Taken 09/15/22] cinacalcet 30 mg tablet 30 mg PO QODAY hyperparathyroidism 11/24/21 [History Last Taken 09/14/22] fexofenadine 180 mg tablet 180 mg PO DAILY ALLERGIES 07/22/22 [History Last Taken 09/15/22] ondansetron 4 mg disintegrating tablet 4 mg PO Q8H PRN nausea and vomiting #10 tabs 07/22/22 [Rx Last Taken Unknown] ascorbic acid (vitamin C) 1,000 mg tablet,extended release (Vitamin C ER) 1,000 mg PO BREAKFAST SUPPLEMENT 07/23/22 [History Last Taken 09/15/22] baclofen 20 mg tablet 20 mg PO QPM MUSCLE SPASMS 09/10/22 [History Last Taken 09/14/22] levetiracetam 250 mg tablet (Keppra) 250 mg PO BID SEIZURES 09/10/22 [History Last Taken 09/15/22] atorvastatin 40 mg tablet 40 mg PO QHS CHOLESTEROL 09/15/22 [History Last Taken 09/14/22] food supplemt, lactose-reduced 0.08 gram-1.5 kcal/mL oral liquid 250 ml PO 4X/ DAY SUPPLEMENT 09/15/22 [History Last Taken 09/15/22] lactulose 10 gram/15 mL oral solution 60 g PO QHS CONSTIPATION 09/15/22 [History Last Taken 09/14/22] melatonin 10 mg tablet 10 mg PO QHS INSOMNIA 09/15/22 [History Last Taken 09/14/22] mirtazapine 30 mg tablet 45 mg PO QHS 09/15/22 [History Last Taken 09/14/22] btunahjp-fkre-cvee 8 mg-folic 400 mcg-K 50 mcg-lutein 300 mcg tablet (Centrum Silver Women) 1 tab PO DAILY health maintenance 09/15/22 [History Last Taken 09/15/22] nystatin 100,000 unit/gram topical powder 1 applic topical DAILY PRN Skin Irritation 09/15/22 [History Last Taken 09/11/22] nitrofurantoin monohydrate/macrocrystals 100 mg capsule (Macrobid) 100 mg PO Q12H 5 days #10 caps 09/22/22 [Rx Last Taken Unknown] polyethylene glycol 3350 17 gram oral powder packet 17 g PO DAILY #0 ea 09/22/22 [Rx Last Taken Unknown] Allergy/AdvReac Type Severity Reaction Status Date / Time ciprofloxacin [From Cipro] AdvReac hypotension Verified 05/26/23 16:04 dextrose 5 % in water AdvReac Other Verified 05/26/23 16:04 [From Zyvox] doxycycline AdvReac hypotension Verified 05/26/23 16:04 levofloxacin [From Levaquin] AdvReac hypotension Verified 05/26/23 16:04 linezolid [From Zyvox] AdvReac Other Verified 05/26/23 16:04 morphine AdvReac hallucinati Verified 05/26/23 16:04 ons piperacillin [From Zosyn] AdvReac hypotension Verified 05/26/23 16:04 sulfamethoxazole AdvReac hypotension Verified 05/26/23 16:04 [From Bactrim] tazobactam [From Zosyn] AdvReac hypotension Verified 05/26/23 16:04 trimethoprim [From Bactrim] AdvReac hypotension Verified 05/26/23 16:04 vancomycin AdvReac developed Verified 05/26/23 16:04 toxic levels Family History Mother Osteoporosis Grandmother Breast cancer Father Hypertension HLD (hyperlipidemia) Surgical History H/O cervical polypectomy H/O dilation and curettage History of cystoscopy History of esophagogastroduodenoscopy (EGD) History of tonsillectomy and adenoidectomy History of tympanoplasty Hx of hand surgery Hx of shoulder surgery S/P laparoscopic procedure S/P percutaneous endoscopic gastrostomy (PEG) tube placement Social History household members: spouse housing: house Smoking Status: Never smoker alcohol intake: never substance use type: does not use what type of physical activity do you participate in: none seatbelt use: always do you feel safe at home: Yes 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Vital Signs Vital Signs Vital Signs: 05/26/23 15:55 05/26/23 15:59 Temperature 96.8 F L Temperature Source Temporal Pulse Rate 90 Respiratory Rate 16 Respiratory Effort Normal Non-Labored Respiratory Pattern Normal Blood Pressure 145/80 H Blood Pressure Mean 101 Pulse Ox 96 Oxygen Delivery Method Room Air Weight Weight: 160 lb 7.944 oz Body Mass Index (BMI) 23.0 Physical Exam Const alert Constitutional Narrative: Generally nonverbal General Appearance: cooperative GI GI Narrative: Mildly distended, there is a little bloody dressing in the left upper quadrant and beneath this there is the patient's gastrostomy site. There appears to be prolapsing gastric mucosa through this opening. Patient's abdomen is soft and otherwise nontender to palpation Assessment & Plan Assessment/Plan (1) Dislodged gastrostomy tube: PLAN: This is a 68-year-old female with a matured gastrostomy who presents for dislodged gastrostomy tube. Given that this tube is almost 12 months old I felt confident and simply replacing it at bedside. However, I did note that the patient exhibits signs of gastric mucosal prolapse and tried to educate her that we need to be careful about applying too thick of a bolster dressing to the area that this may be encouraging that prolapse. It is unclear to me why she would develop intolerance of her feeds 6 months after her PEG tube placement, but I suggested that this family could trial changing the formulation of the feeds to see if this was more agreeable to the patient. Patient's gastrostomy tube was replaced with a RETC end of the standard balloon replacement kit 20 [place], reference [id number]. The tube was placed with ease and the retention balloon was filled with 6 mL of tap water. Just prior to placement I treated the patient's prolapsing mucosal tissue with 2 sticks of silver nitrate. Following placement patient underwent tube study with Gastrografin and a KUB x-ray which did confirm intragastric position of the new tube. Patient's was invited to make a follow-up appointment with me if the prolapsing tissue continues to be a problem. Charges/Coding Visit Charges Office Visits / Consults: 24358 ED Visit; Low/Mod Severity
--- NOTE | 2023-05-26 17:09 | RAD_ITS ---
INDICATION: PEG tube placement -- with Gastrografin for tube placement EXAMINATION/TECHNIQUE: X-RAY - XR Abdomen 1 View COMPARISON: CR Abdomen Mar 21 2023 FINDINGS: PEG tube is seen in good position. There is no evidence of contrast leak. Contrast is seen in the stomach and duodenum. BOWEL GAS PATTERN: Non-obstructive. No bowel or stomach distention. FREE AIR: Not assessed on a single supine view. ORGANOMEGALY: Not seen. CALCIFICATIONS: No abnormal calcifications observed. LOWER CHEST: No acute pathology. BONES AND SOFT TISSUES: No acute pathology. RAD/Abdomen Single View (Portable) IMPRESSION: Non-obstructive bowel gas pattern. PEG tube is seen in good position. There is no evidence of contrast leak. Contrast is seen in the stomach and duodenum. Electronically Signed: Juanjose Garg MD at 17:52 EDT ,
[2023-05-26 17:24] VITALS: BP 152/92; PULSE 85; RESP 18; O2SAT 92
== END 2023-05-26 17:59 | disposition home or self-care (01) ==
PROVIDERS: Emergency Provider Emergency Medicine; PCP Internal Medicine; Visit Provider Emergency Medicine
DX: K94.23 Gastrostomy malfunction (principal); G35 Multiple sclerosis; N18.4 Chronic kidney disease, stage 4 (severe); I12.9 Hypertensive chronic kidney disease with stage 1 through stage 4 chronic kidney disease, or unspecified chronic kidney disease; E78.5 Hyperlipidemia, unspecified; Z79.899 Other long term (current) drug therapy
CPT/HCPCS: 43762; 74018; 99285

== ENCOUNTER → 2023-06-02 | Outpatient (CLI) | payer MEDICARE, SELFPAY ==
--- NOTE | 2023-06-02 09:30 | RAD_ITS ---
PROCEDURE: Upper GI with Small Bowel Follow Through DATE OF EXAMINATION: June 02, 2023.. INDICATION: Female, 68 years old. Nausea and vomiting. FLUOROSCOPY TIME (if supplied): (0:01) minutes/seconds. 18 images were submitted. TECHNIQUE: Radiographic and fluoroscopic images of the distal esophagus, stomach, and entire small intestine were obtained following the oral ingestion of barium. Limited study due to patient''s condition. COMPARISON: None. FINDINGS: The research worker kitchen film of the abdomen demonstrates gas throughout the colon. A jejunostomy tube is seen. The patient ingested a small amount of barium. There is evidence of aspiration into the left mainstem bronchus. The esophagus is unremarkable. Limited assessment of the stomach due to the low volume of oral contrast. A single contrast small bowel follow through was attempted. Not enough barium is present for assessment. RAD/Upper GI/w Small Bowel IMPRESSION: 1. Limited study. Aspiration of barium into the left mainstem bronchus. Electronically Signed: Luís Hines MD at 10:29 EDT ,
== END | disposition home or self-care (01) ==
LOC: RAD 09:25
PROVIDERS: PCP Internal Medicine; Referring Provider Internal Medicine; Visit Provider Internal Medicine
DX: R11.2 Nausea with vomiting, unspecified (principal)
CPT/HCPCS: 74246; 74248

== ENCOUNTER → 2023-06-17 | Outpatient (CLI) | payer MEDICARE, SELFPAY ==
[2023-06-17 10:40] LABS: Bacteria 0 SEEN /hpf (None Seen); Mucous, Urine 0 SEEN /hpf (<or=2+); Red Blood Cells-Urine 0 SEEN /hpf (0-5); Squamous Epithelial Cells - UA 0 SEEN /hpf (5-10)
[2023-06-17 11:12] LABS: Color, Urine Yellow (Yellow); Glucose, Dipstick Normal (Normal); Ketone-Dipstick Negative (Negative); Leukocyte Esterase-Dipstick 500 /ul (Negative); Nitrite-Dipstick Negative (Negative); Occult Blood-Urine 50 /ul (Negative); Protein-Dipstick 30 mg/dl (Negative); Urine Bilirubin Dipstick Negative (Negative); Urine Clarity Cloudy (Clear); Urine Urobilinogen Normal (Normal)
[2023-06-17 11:18] LABS: White Blood Cells >100 SEEN /hpf (0-5)
== END | disposition home or self-care (01) ==
LOC: LABSPEC 10:23
PROVIDERS: PCP Internal Medicine; Referring Provider Internal Medicine; Visit Provider Internal Medicine
DX: R82.90 Unspecified abnormal findings in urine (principal); N18.30 Chronic kidney disease, stage 3 unspecified; Z86.59 Personal history of other mental and behavioral disorders
CPT/HCPCS: 81001; 87077; 87086; 87088; 87186

== ENCOUNTER 2023-07-09 12:01 | Day surgery (SDC) | payer MEDICARE, SELFPAY ==
--- NOTE | 2023-07-09 14:09 | PCM.HP.BLA ---
History and Physical Date of Admission: 07/09/23 68 F who presents to the office today for PCP OV without difficulty. GI Hx of PEG placement; poor appetite (Remeron); constipation. PMH MS (age 18); suprapubic catheter; sepsis/UTI/MRSA recurrent; partial seizures; CKD III; osteoporosis; hemiparesis; dementia; LDH; parathyroid abnormality. CT abd/pel 12. 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 reports GET studies that showed rapid emptying. Largest concern for this visit is that she is constantly nauseous; Zofran PRN with minimal/no effectiveness. Working with Dr. Carranza regarding enteral feed formula and amount. Constipation managed with daily enemas, Metamucil and MiraLAX. ROS Const Constitutional: Positive for fatigue, weakness and change in appetite ENT ENT: Positive for difficulty swallowing Gastro GI: Positive for constipation, diarrhea, difficulty swallowing, loose stools, vomiting and other (nausea) Musc Musculoskeletal: Positive for joint pain, muscle weakness and Arthritis Neuro Neurology: Positive for weakness, Increased tone in limbs and paralysis Psych Psychiatric: Positive for change in appetite Endo Endocrine: Positive for fatigue Quality Reporting Tobacco Screening ([facility] 138) Smoking Status: Never smoker Assessment and Plan Assessment and Plan (1) Chronic constipation: Status: Chronic Comment: ON BOWEL PROGRAM (2) Dislodged gastrostomy tube: Status: Acute Plan: Patient presents after PEG tube became dislodged today. Was initially placed last fall. voices concern that there has been leaking around the PEG tube and is not sure that this is the right size. Patient is also had significant nausea anytime feeds are given through her PEG tube. The tube should be evaluated endoscopically and changed from a G-tube to a GJ tube to help improve her nausea and bloating. The G portion can be used as a relief valve and her medicines can be given and the J-tube can be used for feedings. Orders: Orders EGD 07/09/23 T85.528A - Displacement of other gastrointestinal prosthetic devices, implants and grafts, initial encounter I have examined the patient and the H&P has been reviewed. There are no clinical changes since date of exam.
[2023-07-09] MEDS: Lactated Ringers 1,000 ML 15 ML IV (14:46)
[2023-07-09 14:50] VITALS: BP 129/86; PULSE 72; RESP 17; TEMP 36.1; O2SAT 95; BMI 21.5
[2023-07-09] MEDS: Epinephrine (1 mg/ml) 1 MG/ML VIAL (16:15)
--- NOTE | 2023-07-09 16:38 | OP.EGD_ITS ---
Patient Name: Ching Sharp Procedure Date: 07/09/2023 3:37 PM Date of : 1955 Age: 68 Procedure: Upper GI endoscopy Indications: Dysphagia Providers: Jasbir Cummings DO Medicines: Monitored Anesthesia Care Patient Profile: This is a 68 year old female. Refer to note in patient chart for documentation of history and physical. Patient has symptoms of acute epigastric abdominal pain, chronic dysphagia and dysphagia with both liquids and solids. Complications: No immediate complications. Procedure: Pre-Anesthesia Assessment: - Prior to the procedure, a History and Physical was performed, and patient medications and allergies were reviewed. The patient is competent. The risks and benefits of the procedure and the sedation options and risks were discussed with the patient. All questions were answered and informed consent was obtained. Patient identification and proposed procedure were verified by the physician in the pre-procedure area. Mental Status Examination: alert and oriented. Airway Examination: normal oropharyngeal airway and neck mobility. Respiratory Examination: clear to auscultation. CV Examination: normal. Prophylactic Antibiotics: The patient does not require prophylactic antibiotics. Prior Anticoagulants: The patient has taken no anticoagulant or antiplatelet agents. After reviewing the risks and benefits, the patient was deemed in satisfactory condition to undergo the procedure. The anesthesia plan was to use monitored anesthesia care (MAC). Immediately prior to administration of medications, the patient was re-assessed for adequacy to receive sedatives. The heart rate, respiratory rate, oxygen saturations, blood pressure, adequacy of pulmonary ventilation, and response to care were monitored throughout the procedure. The physical status of the patient was re-assessed after the procedure. After obtaining informed consent, the endoscope was passed under direct vision. Throughout the procedure, the patient's blood pressure, pulse, and oxygen saturations were monitored continuously. The Endoscope was introduced through the mouth, and advanced to the jejunum. The colonoscope was introduced through the and advanced to the. The upper GI endoscopy was accomplished without difficulty. The patient tolerated the procedure well. Scope In: 3:54:03 PM Scope Out: 4:24:51 PM Total Procedure Duration Time 0 hours 30 minutes 48 seconds Findings: The examined esophagus was normal. There was evidence of a patent gastrostomy with no G-tube present in the gastric body. This was characterized by edema, erosion, a hemorrhagic appearance and inflammation. The patient was placed in the supine position for PEG placement. The stomach was insufflated to appose gastric and abdominal ch. A site was located in the body of the stomach with excellent transillumination for placement. The abdominal wall was marked and prepped in a sterile manner. The area was anesthetized with 1 mL of 0.5% lidocaine. The trocar needle was introduced through the abdominal wall and into the stomach under direct endoscopic view. A snare was introduced through the endoscope and opened in the gastric lumen. The guide wire was passed through the trocar and into the open snare. The snare was closed around the guide wire. The endoscope and snare were removed, pulling the wire out through the mouth. A skin incision was made at the site of needle insertion. The endoscopically removable 20 Fr Bard gastrostomy tube was lubricated. The G-tube was tied to the guide wire and pulled through the mouth and into the stomach. The trocar needle was removed, and the gastrostomy tube was pulled out from the stomach through the skin. The external bumper was attached to the gastrostomy tube, and the tube was cut to remove the guide wire. The final position of the gastrostomy tube was confirmed by relook endoscopy, the distal tip was secured to the bowel wall with a clip, and skin marking noted to be 4 cm at the external bumper. The final tension and compression of the abdominal wall by the PEG tube and external bumper were checked and revealed that the bumper was loose and not touching the skin. A 14 Fr Bard tube was then passed through the gastric tube and advanced over a wire, which had been placed endoscopically to the jejunum. Appropriate position of the tip of the tube was confirmed endoscopically and then secured to the bowel wall with a clip. The feeding tube was capped, and the tube site cleaned and dressed. Two oozing cratered gastric ulcers with pigmented material were found in the gastric body. The largest lesion was 5 mm in largest dimension. Area was successfully injected with 8 mL of a 0.1 mg/mL solution of epinephrine for drug delivery. Coagulation for hemostasis using argon plasma at 0.3 liters/minute and 20 hebert was successful. Estimated blood loss was minimal. Four non-bleeding linear duodenal ulcers with no stigmata of bleeding were found in the first portion of the duodenum. The largest lesion was 5 mm in largest dimension. Area was successfully injected with 3 mL of a 0.1 mg/mL solution of epinephrine for drug delivery. Coagulation for hemostasis using heater probe was successful. Estimated blood loss was minimal. Impression: - Normal esophagus. - Patent gastrostomy with no G-tube present characterized by edema, erosion, a hemorrhagic appearance and inflammation. - Oozing gastric ulcers with pigmented material. Injected. Treated with argon plasma coagulation (APC). - Non-bleeding duodenal ulcers with no stigmata of bleeding. Injected. Treated with a heater probe. - An endoscopically removable PEG-J placement was successfully completed. - No specimens collected. Recommendation: - Discharge patient to home. - Resume previous diet. - Continue present medications. - Please follow the post-PEG recommendations. Procedure Code(s): --- Professional --- 69530, Esophagogastroduodenoscopy, flexible, transoral; with directed placement of percutaneous gastrostomy tube 92457, 59,51, Esophagogastroduodenoscopy, flexible, transoral; with control of bleeding, any method 19104, 59, Esophagogastroduodenoscopy, flexible, transoral; with directed submucosal injection(s), any substance 89728, Unlisted procedure, small intestine CPT copyright 2021 [employer]. All rights reserved. The codes documented in this report are preliminary and upon telephone answering service operator review may be revised to meet current compliance requirements. Jasbir Cummings DO 07/09/2023 4:37:59 PM This report has been signed electronically. Number of Addenda: 0 Note Initiated On: 07/09/2023 3:37 PM
--- NOTE | 2023-07-09 16:38 | OP.CCLET_ITS ---
07/09/2023 Alexandria Carranza Re : Upper GI endoscopy procedure for Ching Kauffmanyas Carranza This procedure was performed on Sunday, July 09, 2023. My impressions and recommendations are as follows: Impressions : - Normal esophagus. - Patent gastrostomy with no G-tube present characterized by edema, erosion, a hemorrhagic appearance and inflammation. - Oozing gastric ulcers with pigmented material. Injected. Treated with argon plasma coagulation (APC). - Non-bleeding duodenal ulcers with no stigmata of bleeding. Injected. Treated with a heater probe. - An endoscopically removable PEG-J placement was successfully completed. - No specimens collected. Recommendations : - Discharge patient to home. - Resume previous diet. - Continue present medications. - Please follow the post-PEG recommendations. My findings are described in the full procedure note, which is enclosed. If I can be of further assistance, please feel free to contact me at . Sincerely, Jasbir Cummings, 07/09/2023 4:37:59 PM This report has been signed electronically.
[2023-07-09 16:40] VITALS: BP 117/71; BP 129/86; PULSE 72; RESP 16; TEMP 36.2; O2SAT 96
[2023-07-09 16:45] VITALS: BP 129/86; BP 132/75; PULSE 72; RESP 16; O2SAT 98
[2023-07-09 16:50] VITALS: BP 129/86; BP 144/84; PULSE 73; RESP 16; O2SAT 98
[2023-07-09 16:55] VITALS: BP 129/86; BP 135/77; PULSE 70; RESP 16; TEMP 36.2; O2SAT 98
[2023-07-09] MEDS: 0.9 % NaCl (Sterile) Posiflush 10 mL IV (18:06)
[2023-07-09 18:24] VITALS: BP 129/86
== END 2023-07-09 18:25 | disposition home or self-care (01) ==
LOC: EN 12:02 → AC 13:23
PROVIDERS: PCP Internal Medicine; Referring Provider Internal Medicine; Visit Provider Internal Medicine Gastroenterology
PROC: 0DJ08ZZ Inspection of Upper Intestinal Tract, Via Natural or Artificial Opening Endoscopic (ICD-10-PCS; CPT 43235; principal; 2023-07-09 15:25)
DX: K94.23 Gastrostomy malfunction (principal); F03.90 Unspecified dementia, unspecified severity, without behavioral disturbance, psychotic disturbance, mood disturbance, and anxiety; N18.4 Chronic kidney disease, stage 4 (severe); K59.09 Other constipation; K26.9 Duodenal ulcer, unspecified as acute or chronic, without hemorrhage or perforation; Z79.899 Other long term (current) drug therapy; E78.00 Pure hypercholesterolemia, unspecified; K25.4 Chronic or unspecified gastric ulcer with hemorrhage; R13.10 Dysphagia, unspecified
CPT/HCPCS: 43255; 43246; J7120; A4216; J2405

== ENCOUNTER 2023-07-10 14:10 | Emergency (ER) | payer MEDICARE, SELFPAY ==
[2023-07-10 14:11] VITALS: BP 157/92; PULSE 65; RESP 16; TEMP 35.9; O2SAT 94
--- NOTE | 2023-07-10 14:25 | EX.ED.DYSGE1 ---
HPI History of Present Illness Chief Complaint: General Illness Narrative Narrative: Patient presents for PEG tube dysfunction. She had it replaced yesterday and it is blocked. She has a history of multiple sclerosis, she is bedbound. There are no other complaints. [facility] Medical History (Updated 07/10/23 @ 14:[address] Artur Rodriguez MD) Age-related cognitive decline Alcohol use Allergic rhinitis Anemia Arthritis Back pain Bilateral hydronephrosis Blackout Chronic kidney disease, stage 3 unspecified CKD (chronic kidney disease) stage 4, GFR 15-29 ml/min Complicated urinary tract infection Declining functional status Dental bridge present Depression Difficulty chewing Difficulty swallowing Elevated sed rate Elevated serum globulin level Endometrial thickening on ultrasound High cholesterol History of echocardiogram History of edema History of multiple sclerosis History of wrist fracture Hyperlipidemia Hypertension Hypoxia Indwelling urethral catheter present Injury of back Insomnia Iron deficiency anemia Loss of hearing Low iron Malnutrition Migraine headache Migraine headache MRSA colonization Multiple sclerosis Multiple sclerosis Muscle spasm Neurogenic bladder Non-smoker OAB (overactive bladder) Occlusion and stenosis of bilateral carotid arteries Partial seizure Pelvic pain Poor appetite Port-A-Cath in place Post-menopausal Right hemiparesis Suprapubic catheter Urinary tract infection Uses wheelchair Vitamin D deficiency Weakness Wears glasses Home Medications bisacodyl 10 mg rectal suppository (Dulcolax (bisacodyl)) 10 mg RECTAL DAILY constipation 07/01/18 [History Last Taken 07/08/23] acetaminophen 500 mg tablet 1,000 mg PO Q6H PRN Pain 02/15/19 [History Last Taken 07/08/23] magnesium oxide 400 mg (241.3 mg magnesium) tablet 400 mg PO QHS magnesium supplement 05/23/19 [History Last Taken 07/08/23] polysaccharide iron complex 150 mg iron capsule 150 mg PO DAILY iron replacement 05/23/19 [History Last Taken 07/08/23] krill 1,000 mg-omega-3 170 mg-dha 50 mg-epa 80 mn-mlsmpd-vggjg capsule (krill oil) 1 ea PO BID supplement 11/15/20 [History Last Taken 07/08/23] vitamin B complex-folic acid 0.4 mg tablet (B Complex 1 (with folic acid)) 1 tab PO DAILY vitamin 11/15/20 [History Last Taken 07/08/23] cholecalciferol (vitamin D3) 1,250 mcg (50,000 unit) capsule 50,000 unit PO QMONTH vitamin 11/12/21 [History Last Taken 07/08/23] cinacalcet 30 mg tablet 30 mg PO QODAY hyperparathyroidism 11/24/21 [History Last Taken 07/08/23] fexofenadine 180 mg tablet 180 mg PO DAILY ALLERGIES 07/22/22 [History Last Taken 07/08/23] ondansetron 4 mg disintegrating tablet 4 mg PO Q8H PRN nausea and vomiting #10 tabs 07/22/22 [Rx Last Taken 07/08/23] ascorbic acid (vitamin C) 1,000 mg tablet,extended release (Vitamin C ER) 1,000 mg PO BREAKFAST SUPPLEMENT 07/23/22 [History Last Taken 07/08/23] baclofen 20 mg tablet 20 mg PO TID MUSCLE SPASMS 09/10/22 [History Last Taken 07/09/23] food supplemt, lactose-reduced 0.08 gram-1.5 kcal/mL oral liquid 250 ml PO 4X/DAY SUPPLEMENT 09/15/22 [History Last Taken 07/08/23] lactulose 10 gram/15 mL oral solution 60 g PO QHS CONSTIPATION 09/15/22 [History Last Taken 07/08/23] melatonin 10 mg tablet 10 mg PO QHS INSOMNIA 09/15/22 [History Last Taken 07/08/23] mirtazapine 30 mg tablet 45 mg PO QHS 09/15/22 [History Last Taken 07/08/23] pkmrkizl-jotd-yulr 8 mg-folic 400 mcg-K 50 mcg-lutein 300 mcg tablet (Centrum Silver Women) 1 tab PO DAILY health maintenance 09/15/22 [History Last Taken 07/08/23] nystatin 100,000 unit/gram topical powder 1 applic topical DAILY PRN Skin Irritation 09/15/22 [History Last Taken 07/08/23] polyethylene glycol 3350 17 gram oral powder packet 17 g PO DAILY #0 ea 09/22/22 [Rx Last Taken 07/08/23] glucosamine 750 gv-sgqiquwtita-cqq no1 644 mg-C 30 mg-laura 1 mg tablet (Osteo Bi-Flex Triple Strength) 1 tab PO BID 07/07/23 [History Last Taken 07/08/23] Allergy/AdvReac Type Severity Reaction Status Date / Time dextrose 5 % in water AdvReac Other Verified 07/10/23 14:14 [From Zyvox] doxycycline AdvReac hypotension Verified 07/10/23 14:14 levofloxacin [From Levaquin] AdvReac hypotension Verified 07/10/23 14:14 linezolid [From Zyvox] AdvReac Other Verified 07/10/23 14:14 morphine AdvReac hallucinati Verified 07/10/23 14:14 ons piperacillin [From Zosyn] AdvReac hypotension Verified 07/10/23 14:14 sulfamethoxazole AdvReac hypotension Verified 07/10/23 14:14 [From Bactrim] tazobactam [From Zosyn] AdvReac hypotension Verified 07/10/23 14:14 trimethoprim [From Bactrim] AdvReac hypotension Verified 07/10/23 14:14 vancomycin AdvReac developed Verified 07/10/23 14:14 toxic levels Family History Mother Osteoporosis Grandmother Breast cancer Father Hypertension HLD (hyperlipidemia) Surgical History H/O cervical polypectomy H/O dilation and curettage History of cystoscopy History of esophagogastroduodenoscopy (EGD) History of tonsillectomy and adenoidectomy History of tympanoplasty Hx of hand surgery Hx of shoulder surgery S/P laparoscopic procedure S/P percutaneous endoscopic gastrostomy (PEG) tube placement Social History household members: spouse housing: house Smoking Status: Never smoker alcohol intake: never substance use type: does not use what type of physical activity do you participate in: none seatbelt use: always do you feel safe at home: Yes 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 No kinks. Back: Nontender, Normal Inspection. Negative for: CVA tenderness Extremities: Nontender, No edema Skin: Normal color, No rash Neurological: Decreased strength in arms and legs. Const Vital Signs: 07/10/23 14:11 Temperature 96.7 F L Temperature Source Temporal Pulse Rate 65 Respiratory Rate 16 Blood Pressure 157/92 H Blood Pressure Mean 113 Pulse Ox 94 Oxygen Delivery Method Room Air MDM MDM MDM Narrative Medical decision making narrative: Patient has some sort of blockage in her G-tube. I talked to . Friend who will take her to the operating room for reevaluation of the tube. Otherwise patient be disposed from there. Discharge Plan Triage Chief Complaint: General Illness ED Provider: Artur Rodriguez Dx/Rx/DC Orders Clinical Impression: Impaired oral gastric feeding tube Prescriptions: No Action bisacodyl [Dulcolax (bisacodyl)] 10 MG suppository 10 mg RECTAL DAILY acetaminophen 500 MG tablet 1,000 mg PO Q6H PRN (Reason: Pain) polysaccharide iron complex 150 MG capsule 150 mg PO DAILY magnesium oxide 400 MG tablet 400 mg PO QHS vitamin B complex-folic acid [B Complex 1 (with folic acid)] 0.4 MG tablet 1 tab PO DAILY krill oil 1 EACH capsule 1 ea PO BID cholecalciferol (vitamin D3) 1,250 mcg (50,000 unit) capsule 50,000 unit PO QMONTH cinacalcet 30 mg tablet 30 mg PO QODAY Patient Comments: TAKE 1 TABLET BY MOUTH EVERY OTHER DAY WITH FOOD fexofenadine 180 mg Tablet 180 mg PO DAILY ondansetron 4 mg tablet,disintegrating 4 mg PO Q8H PRN (Reason: nausea and vomiting) Qty: 10 0RF Vitamin C 1,000 mg Tablet Extended Release 1,000 mg PO BREAKFAST baclofen 20 mg Tablet 20 mg PO TID mirtazapine 30 mg Tablet 45 mg PO QHS nystatin 100,000 unit/gram powder 1 applic TOPICAL DAILY PRN (Reason: Skin Irritation) lactulose 10 gram/15 mL Solution 60 g PO QHS Centrum Silver Women 8 mg iron-400 mcg-300 mcg Tablet 1 tab PO DAILY melatonin 10 mg Tablet 10 mg PO QHS food supplemt, lactose-reduced 0.08 gram-1.5 kcal/mL liquid 250 ml PO 4X/DAY polyethylene glycol 3350 17 gram Powder In Packet 17 g PO DAILY Qty: 0 0RF Osteo Bi-Flex Triple Strength 750 mg-644 mg- 30 mg-1 mg tablet 1 tab PO BID Primary Care Provider: Alexandria Carranza Referrals: Alexandria Carranza MD [Primary Care Provider] - Disposition Disposition: Acute Care Hospital [facility]
[2023-07-10] MEDS: 0.9% Normal Saline (500mL Bag) 500 ML 999 ML IV (14:58)
--- NOTE | 2023-07-10 15:25 | ED.RN ---
THIS RN ATTEMPTED TO COMPLETE ED TO OR CHECKLIST. PER ALTHEA CHARGE NURSE, TO BE COMPLETED IN OR.
--- NOTE | 2023-07-10 15:50 | OP.CCLET_ITS ---
07/10/2023 Alexandria Carranza Re : Upper GI endoscopy procedure for Ching Kauffmanyas Carranza This procedure was performed on Monday, July 10, 2023. My impressions and recommendations are as follows: Impressions : - Normal esophagus. - Closed previous gastrostomy present. - Normal duodenal bulb. - The PEG was removed because it was broken, and replaced with an externally removable PEG. - No specimens collected. Recommendations : - Written discharge instructions were provided to the patient. - The signs and symptoms of potential delayed complications were discussed with the patient. - Patient has a contact number available for emergencies. - Return to normal activities tomorrow. - Resume previous diet. - Continue present medications. My findings are described in the full procedure note, which is enclosed. If I can be of further assistance, please feel free to contact me at . Sincerely, Jasbir Cummings, 07/10/2023 3:49:40 PM This report has been signed electronically.
--- NOTE | 2023-07-10 15:50 | OP.EGD_ITS ---
Patient Name: Ching Sharp Procedure Date: 07/10/2023 3:12 PM Date of : 1955 Age: 68 Procedure: Upper GI endoscopy Indications: Dysphagia Providers: Jasbir Cummings DO Medicines: Monitored Anesthesia Care Patient Profile: This is a 68 year old female. Refer to note in patient chart for documentation of history and physical. Patient has symptoms of acute vomiting. She is status post EGD for PEG placement recently. Complications: No immediate complications. Procedure: Pre-Anesthesia Assessment: - Prior to the procedure, a History and Physical was performed, and patient medications and allergies were reviewed. The patient is competent. The risks and benefits of the procedure and the sedation options and risks were discussed with the patient. All questions were answered and informed consent was obtained. Patient identification and proposed procedure were verified by the physician in the pre-procedure area. Mental Status Examination: alert and oriented. Airway Examination: normal oropharyngeal airway and neck mobility. Respiratory Examination: clear to auscultation. CV Examination: normal. Prophylactic Antibiotics: The patient does not require prophylactic antibiotics. Prior Anticoagulants: The patient has taken no previous anticoagulant or antiplatelet agents. ASA Grade Assessment: II - A patient with mild systemic disease. After reviewing the risks and benefits, the patient was deemed in satisfactory condition to undergo the procedure. The anesthesia plan was to use monitored anesthesia care (MAC). Immediately prior to administration of medications, the patient was re-assessed for adequacy to receive sedatives. The heart rate, respiratory rate, oxygen saturations, blood pressure, adequacy of pulmonary ventilation, and response to care were monitored throughout the procedure. The physical status of the patient was re-assessed after the procedure. After obtaining informed consent, the endoscope was passed under direct vision. Throughout the procedure, the patient's blood pressure, pulse, and oxygen saturations were monitored continuously. The Colonoscope was introduced through the mouth, and advanced to the second part of duodenum. The upper GI endoscopy was accomplished without difficulty. The patient tolerated the procedure well. Scope In: 3:37:56 PM Scope Out: 3:46:47 PM Total Procedure Duration Time 0 hours 8 minutes 51 seconds Findings: The examined esophagus was normal. There was evidence of a closed previous gastrostomy present in the gastric fundus. The PEG required removal because it was broken. The PEG was cut externally, grasped, and removed with the scope. Removal was easily accomplished. An externally removable 20 Fr Avanos LAUREN gastrostomy tube was lubricated. The guide wire was passed through the existing G-tube port and snared endoscopically. The endoscope and snare were then removed, pulling the wire out through the mouth. The g-tube was tied to the guidewire, pulled through the mouth into the stomach and then pulled out from the stomach through the skin. The bumper was attached to the gastrostomy tube. The feeding tube was then cut to an appropriate length. The final position of the gastrostomy tube was confirmed by relook endoscopy, and skin marking noted to be 4 cm at the external bumper. The final tension and compression of the abdominal wall by the PEG tube and external bumper were checked. The tube was capped, and the tube site was cleaned and dressed. The duodenal bulb was normal. Impression: - Normal esophagus. - Closed previous gastrostomy present. - Normal duodenal bulb. - The PEG was removed because it was broken, and replaced with an externally removable PEG. - No specimens collected. Recommendation: - Written discharge instructions were provided to the patient. - The signs and symptoms of potential delayed complications were discussed with the patient. - Patient has a contact number available for emergencies. - Return to normal activities tomorrow. - Resume previous diet. - Continue present medications. Procedure Code(s): --- Professional --- 90794, Esophagogastroduodenoscopy, flexible, transoral; with directed placement of percutaneous gastrostomy tube CPT copyright 2021 [employer]. All rights reserved. The codes documented in this report are preliminary and upon remote coders review may be revised to meet current compliance requirements. Jasbir Cummings DO 07/10/2023 3:49:40 PM This report has been signed electronically. Number of Addenda: 0 Note Initiated On: 07/10/2023 3:12 PM
[2023-07-10 15:57] VITALS: BP 127/82; BP 157/92; PULSE 66; RESP 12; TEMP 36.3; O2SAT 98
[2023-07-10 16:00] VITALS: BP 131/85; BP 157/92; PULSE 67; RESP 14; O2SAT 97
[2023-07-10] MEDS: 0.9% Saline Lock 10 ML Syringe IV ×2 (16:00→16:11)
[2023-07-10 16:05] VITALS: BP 134/81; BP 157/92; PULSE 66; RESP 14; O2SAT 97
[2023-07-10 16:10] VITALS: BP 145/89; BP 157/92; PULSE 68; RESP 14; O2SAT 96
[2023-07-10 16:13] VITALS: BP 139/83; BP 157/92; PULSE 66; RESP 14; TEMP 36; O2SAT 95
[2023-07-10] MEDS: 0.9 % NaCl (Sterile) Posiflush 10 mL IV (16:26)
== END 2023-07-10 15:33 | disposition home or self-care (01) ==
PROVIDERS: Internal Medicine Gastroenterology; Emergency Provider Emergency Medicine; PCP Internal Medicine; Visit Provider Emergency Medicine
PROC: 0DJ08ZZ Inspection of Upper Intestinal Tract, Via Natural or Artificial Opening Endoscopic (ICD-10-PCS; CPT 43235; principal; 2023-07-10 15:30)
DX: K94.23 Gastrostomy malfunction (principal); G35 Multiple sclerosis; N18.4 Chronic kidney disease, stage 4 (severe); R13.10 Dysphagia, unspecified; E78.00 Pure hypercholesterolemia, unspecified; I12.9 Hypertensive chronic kidney disease with stage 1 through stage 4 chronic kidney disease, or unspecified chronic kidney disease; Z79.899 Other long term (current) drug therapy
CPT/HCPCS: 43246; 36591; 96360; 99285; J7040; A4216; J2405; J3490

== ENCOUNTER → 2023-08-27 | Outpatient (CLI) | payer MEDICARE, SELFPAY ==
[2023-08-27 15:23] LABS: Mucous, Urine 0 SEEN /hpf (<or=2+); Red Blood Cells-Urine 0 SEEN /hpf (0-5)
[2023-08-27 15:47] LABS: Color, Urine Straw (Yellow); Glucose, Dipstick Normal (Normal); Ketone-Dipstick Negative (Negative); Leukocyte Esterase-Dipstick 500 /ul (Negative); Nitrite-Dipstick Positive (Negative); Occult Blood-Urine 150 /ul (Negative); Protein-Dipstick 15 mg/dl (Negative); Urine Bilirubin Dipstick Negative (Negative); Urine Clarity Clear (Clear); Urine Urobilinogen Normal (Normal)
[2023-08-27 15:56] LABS: Bacteria 1+ /hpf (None Seen); Squamous Epithelial Cells - UA 0-5 SEEN /hpf (5-10); White Blood Cells 10-25 SEEN /hpf (0-5)
== END | disposition home or self-care (01) ==
LOC: LABSPEC 15:06
PROVIDERS: PCP Internal Medicine; Visit Provider Internal Medicine
DX: R82.90 Unspecified abnormal findings in urine (principal); N18.30 Chronic kidney disease, stage 3 unspecified; Z86.59 Personal history of other mental and behavioral disorders
CPT/HCPCS: 81001; 87077; 87086; 87088; 87186

== ENCOUNTER 2023-09-03 23:17 | Inpatient (IN) | payer MEDICARE, SELFPAY ==
--- NOTE | 2023-09-03 01:40 | RAD_ITS ---
INDICATION: vomiting low pulse ox concern for aspiration EXAMINATION/TECHNIQUE: X-RAY - XR Chest 1 View COMPARISON: Prior study dated: 08/03/2022 FINDINGS: LINES/DEVICES: Left chest wall CT compatible port terminates near the cavoatrial junction. LUNGS: Low lung volumes with significant elevation of the right hemidiaphragm. Underlying gas-filled bowel. Left basilar opacities are seen. No pleural effusion or pneumothorax. No edema. MEDIASTINUM AND CARDIOVASCULAR STRUCTURES: Cardiac silhouette not enlarged. Central airways and mediastinal contour are unremarkable. BONES AND SOFT TISSUES: No acute abnormality. RAD/Chest 1 View (Portable) IMPRESSION: Left basilar opacity could be atelectasis or pneumonia. Aspiration is possible. Electronically Signed: Willian Singleton MD at 2:39 EST ,
[2023-09-03 23:24] VITALS: BP 134/95; PULSE 109; RESP 23; TEMP 37.4; O2SAT 89; BMI 23.1
[2023-09-03 23:30] VITALS: BP 132/98; PULSE 112; RESP 21; TEMP 37.4; O2SAT 90; O2SAT 92
--- NOTE | 2023-09-03 23:42 | EKG12_ITS ---
Test Reason : DYSRHYTHMIA Blood Pressure : / mmHG Vent. Rate : 109 BPM Atrial Rate : 109 BPM P-R Int : 132 ms QRS Dur : 100 ms QT Int : 366 ms P-R-T Axes : 064 007 033 degrees QTc Int : 492 ms Sinus tachycardia Otherwise normal ECG Confirmed by TUCKER RAMÍREZ, WILL ([id number]), editor greeting card LORE JUAREZ ([id number]) on 09/06/2023 10:48:48 AM Referred By: Mohit Arroyo Confirmed By:WILL CEBALLOS MD
--- NOTE | 2023-09-03 23:43 | EX.ED.DYSGE1 ---
HPI History of Present Illness Chief Complaint: Nausea/Vomiting Informant: patient and spouse/S.O. Narrative Narrative: 68-year-old female who vomited tonight, subsequently her breathing was sounding full of secretions, she was spitting some out. She denies dyspnea but is concerned that she aspirated, pulse ox was low at home hence bringing her to the emergency department. She wears oxygen at nighttime for comfort. She is not oxygen dependant usually. She has multiple sclerosis and does occasionally get around but today is really weak. 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 He states for the past 2 weeks she has been lethargic and confused at times, more having a hard time thinking of what she wants to say, and these are symptoms she has had in the past with urinary tract infections. She had a urinalysis and culture subsequently which verify this, started on Bactrim currently on day #8 of that, and he states that the culture grew out Serratia marcescens. He states in the past, she had lots of nausea and vomiting, she had an EGD showing gastric ulcers/erosions that were treated and she has had no nausea or vomiting since but does occasionally have episodes of some type of stress gastroparesis when she has urine infections and has vomited with them in the past and asked what he thinks is going on now. Per squad her temperature was over 101. PFSH PFS Medical History Age-related cognitive decline Alcohol use Allergic rhinitis Anemia Arthritis Back pain Bilateral hydronephrosis Blackout Chronic kidney disease, stage 3 unspecified CKD (chronic kidney disease) stage 4, GFR 15-29 ml/min Complicated urinary tract infection Declining functional status Dental bridge present Depression Difficulty chewing Difficulty swallowing Elevated sed rate Elevated serum globulin level Endometrial thickening on ultrasound High cholesterol History of echocardiogram History of edema History of multiple sclerosis History of wrist fracture Hyperlipidemia Hypertension Hypoxia Indwelling urethral catheter present Injury of back Insomnia Iron deficiency anemia Loss of hearing Low iron Malnutrition Migraine headache Migraine headache MRSA colonization Multiple sclerosis Multiple sclerosis Muscle spasm Neurogenic bladder Non-smoker OAB (overactive bladder) Occlusion and stenosis of bilateral carotid arteries Partial seizure Pelvic pain Poor appetite Port-A-Cath in place Post-menopausal Right hemiparesis Suprapubic catheter Urinary tract infection Uses wheelchair Vitamin D deficiency Weakness Wears glasses Home Medications acetaminophen 500 mg tablet 1,000 mg PO Q6H PRN Pain 02/15/19 [History Last Taken 07/08/23] magnesium oxide 400 mg (241.3 mg magnesium) tablet 400 mg PO QHS magnesium supplement 05/23/19 [History Last Taken 07/08/23] polysaccharide iron complex 150 mg iron capsule 150 mg PO DAILY iron replacement 05/23/19 [History Last Taken 07/08/23] krill 1,000 mg-omega-3 170 mg-dha 50 mg-epa 80 [id number] capsule (krill oil) 500 cap PO BID supplement 11/15/20 [History Last Taken 07/08/23] vitamin B complex-folic acid 0.4 mg tablet (B Complex 1 (with folic acid)) 1 tab PO DAILY vitamin 11/15/20 [History Last Taken 07/08/23] cholecalciferol (vitamin D3) 1,250 mcg (50,000 unit) capsule 50,000 unit PO QMONTH vitamin 08/15/21 [History Last Taken 07/08/23] cinacalcet 30 mg tablet 30 mg PO QODAY hyperparathyroidism 11/24/21 [History Last Taken 07/08/23] fexofenadine 180 mg tablet 180 mg PO DAILY ALLERGIES 07/22/22 [History Last Taken 07/08/23] ondansetron 4 mg disintegrating tablet 4 mg PO Q8H PRN nausea and vomiting #10 tabs 07/22/22 [Rx Last Taken 07/08/23] ascorbic acid (vitamin C) 1,000 mg tablet,extended release (Vitamin C ER) 1,000 mg PO BREAKFAST SUPPLEMENT 07/23/22 [History Last Taken 07/08/23] baclofen 20 mg tablet 20 mg PO TID MUSCLE SPASMS 09/10/22 [History Last Taken 07/09/23] food supplemt, lactose-reduced 0.08 gram-1.5 kcal/mL oral liquid 250 ml PO 4X/DAY SUPPLEMENT 09/15/22 [History Last Taken 07/08/23] lactulose 10 gram/15 mL oral solution 40 g PO QHS CONSTIPATION 09/15/22 [History Last Taken 07/08/23] melatonin 10 mg tablet 5 mg PO QHS INSOMNIA 09/15/22 [History Last Taken 07/08/23] mirtazapine 30 mg tablet 45 mg PO QHS 09/15/22 [History Last Taken 07/08/23] xlvnaoii-muzo-xizv 8 mg-folic 400 mcg-K 50 mcg-lutein 300 mcg tablet (Centrum Silver Women) 1 tab PO DAILY health maintenance 09/15/22 [History Last Taken 07/08/23] nystatin 100,000 unit/gram topical powder 1 applic topical DAILY PRN Skin Irritation 09/15/22 [History Last Taken 07/08/23] polyethylene glycol 3350 17 gram oral powder packet 17 g PO DAILY #0 ea 09/22/22 [Rx Last Taken 07/08/23] glucosamine 750 kg-lpzkwxjpxlw-smz no1 644 mg-C 30 mg-laura 1 mg tablet (Osteo Bi-Flex Triple Strength) 1 tab PO BID 07/07/23 [History Last Taken 07/08/23] pantoprazole 40 mg tablet,delayed release 40 mg PO DAILY 30 days #30 tabs 07/22/23 [Rx Last Taken Unknown] Allergy/AdvReac Type Severity Reaction Status Date / Time dextrose 5 % in water AdvReac Other Verified 09/03/23 23:18 [From Zyvox] doxycycline AdvReac hypotension Verified 09/03/23 23:18 levofloxacin [From Levaquin] AdvReac hypotension Verified 09/03/23 23:18 linezolid [From Zyvox] AdvReac Other Verified 09/03/23 23:18 morphine AdvReac hallucinati Verified 09/03/23 23:18 ons piperacillin [From Zosyn] AdvReac hypotension Verified 09/03/23 23:18 sulfamethoxazole AdvReac hypotension Verified 09/03/23 23:18 [From Bactrim] tazobactam [From Zosyn] AdvReac hypotension Verified 09/03/23 23:18 trimethoprim [From Bactrim] AdvReac hypotension Verified 09/03/23 23:18 vancomycin AdvReac developed Verified 09/03/23 23:18 toxic levels Family History Mother Osteoporosis Grandmother Breast cancer Father Hypertension HLD (hyperlipidemia) Surgical History H/O cervical polypectomy H/O dilation and curettage History of cystoscopy History of esophagogastroduodenoscopy (EGD) History of tonsillectomy and adenoidectomy History of tympanoplasty Hx of hand surgery Hx of shoulder surgery S/P laparoscopic procedure S/P percutaneous endoscopic gastrostomy (PEG) tube placement Social History household members: spouse housing: house Smoking Status: Never smoker alcohol intake: never substance use type: does not use what type of physical activity do you participate in: none seatbelt use: always do you feel safe at home: Yes 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 Physical Exam Const Vital Signs: 09/03/23 23:24 09/03/23 23:30 09/03/23 23:30 Temperature 99.3 F H 99.3 F H Temperature Source Temporal Temporal Pulse Rate 109 H 112 H Respiratory Rate 23 H 21 H Respiratory Effort Respiratory Depth Respiratory Pattern Blood Pressure 134/95 H 132/98 H Blood Pressure Mean 108 109 Pulse Ox 89 90 92 Oxygen Delivery Method Nasal Cannula High Flow Nasal Cannula Oxygen Flow Rate (L/min) 4 8 8 09/03/23 23:38 09/04/23 01:21 09/04/23 01:21 Temperature 99.3 F H Temperature Source Temporal Pulse Rate 107 H Respiratory Rate 21 H Respiratory Effort Accessory Muscle Use Respiratory Depth Normal Respiratory Pattern Tachypnea Blood Pressure 156/56 H Blood Pressure Mean 89 Pulse Ox 96 Oxygen Delivery Method High Flow Room Air Nasal Cannula Oxygen Flow Rate (L/min) 8 8 6 09/04/23 02:00 Temperature 99.1 F Temperature Source Oral Pulse Rate 100 Respiratory Rate 17 Respiratory Effort Respiratory Depth Respiratory Pattern Blood Pressure 104/67 Blood Pressure Mean 79 Pulse Ox 94 Oxygen Delivery Method Nasal Cannula Oxygen Flow Rate (L/min) 6 Positive well nourished and well developed General Appearance ED: well developed and NAD HEENT Reports moist mucous membranes normocephalic and atraumatic Eyes PERRL and EOMs intact bilaterally Neck full ROM and supple Resp Resp Narrative: Tachypnea no respiratory distress or retractions. Decreased breath sounds right base. Cardio regular rate and regular rhythm Rate: tachycardic GI non-tender and non-distended GI Narrative: G-tube site benign nontender no leakage Auscultation: normoactive bowel sounds Palpation: soft Back/Spine no CVA tenderness General Back: other FROM Extremity normal to inspection General Extremety ED: Yes edema; Negative for pulses abnormal or tenderness General Extremity: edema bilateral lower extremity Details: mild; Negative for pulses abnormal Neuro oriented x3 and CN's II-XII intact bilaterally Sensorium / Orientation: awake and alert Motor Exam: general weakness Psych mental status grossly normal Skin no rashes or lesions noted and no wounds MDM MDM MDM Narrative Medical decision making narrative: Clinical suspicion for aspiration pneumonia exists, 1 view chest x-ray confirms out of my interpretation showing a left lower lobe infiltrate, radiology in agreement. She has no associated leukocytosis, her lactate is within normal limits, creatinine stable. Urine does look infected, this was recently cultured for Serratia marcescens, so in looking through her allergy list and the sensitivities, she will be put on Rocephin. Stable clinically and vital signs, she does not have respiratory failure right now but she does require oxygen, plan is for admission, especially since she just recently aspirated. Lab Data Attestation: I reviewed the patient's lab results. Labs: Laboratory Results - last 24 hr 09/03/23 00:55 WBC 13.4 H RBC 4.16 L Hgb 13.2 Hct 39.9 MCV 95.9 MCH 31.7 MCHC 33.1 RDW Std Deviation 49.1 H RDW Coeff of Niurka 13.9 Plt Count 218 MPV 9.6 Immature Gran % (Auto) 0.400 Neut % (Auto) 83.0 H Lymph % (Auto) 8.1 L Sunflower % (Auto) 6.3 Eos % (Auto) 1.8 Baso % (Auto) 0.4 Absolute Neuts (auto) 11.1 H Absolute Lymphs (auto) 1.09 Nucleated RBC % 0 PT 12.5 INR 0.9 APTT 37.8 H Sodium 134 L Potassium 4.2 Chloride 99 Carbon Dioxide 31.0 Anion Gap 4 L BUN 21 H Creatinine 1.35 H Estim Creat Clear Calc 43.13 Est GFR (MDRD) Af Amer 50 L Est GFR (MDRD) Non-Af 41 L BUN/Creatinine Ratio 15.6 Glucose 122 H Lactic Acid 1.3 Calcium 9.4 Total Bilirubin 0.20 AST 13 L ALT 17 Alkaline Phosphatase 78 Troponin I High Sens 14 Total Protein 7.9 Albumin 3.3 Globulin 4.6 H Albumin/Globulin Ratio 0.7 L Radiography Diagnostic Testing: Clinical Impression(s) from Imaging Studies Chest X-Ray 09/03/23 01:40 IMPRESSION: Left basilar opacity could be atelectasis or pneumonia. Aspiration is possible. Electronically Signed: Willian Singleton MD at 2:39 EST , Rhythm Strip Rhythm Strip: Sinus Tach Rate: 109 Ectopy: None EKG Initial EKG: Attestation: I personally reviewed and interpreted this EKG as follows: Interpretation: No Acute Injury Pattern and Sinus Tachycardia (Otherwise normal EKG) Management Discussion w/another healthcare provider: Hospitalist Discharge Plan Triage Chief Complaint: Nausea/Vomiting ED Provider: Dhruv Monge Dx/Rx/DC Orders Clinical Impression: Hypoxemia, Aspiration pneumonia, Acute UTI, Debility Prescriptions: No Action acetaminophen 500 MG tablet 1,000 mg PO Q6H PRN (Reason: Pain) polysaccharide iron complex 150 MG capsule 150 mg PO DAILY magnesium oxide 400 MG tablet 400 mg PO QHS vitamin B complex-folic acid [B Complex 1 (with folic acid)] 0.4 MG tablet 1 tab PO DAILY krill oil 1 EACH capsule 500 cap PO BID cholecalciferol (vitamin D3) 1,250 mcg (50,000 unit) capsule 50,000 unit PO QMONTH cinacalcet 30 mg tablet 30 mg PO QODAY Patient Comments: TAKE 1 TABLET BY MOUTH EVERY OTHER DAY WITH FOOD fexofenadine 180 mg Tablet 180 mg PO DAILY ondansetron 4 mg tablet,disintegrating 4 mg PO Q8H PRN (Reason: nausea and vomiting) Qty: 10 0RF Hold Instructions: hasn't been taking Vitamin C 1,000 mg Tablet Extended Release 1,000 mg PO BREAKFAST baclofen 20 mg Tablet 20 mg PO TID mirtazapine 30 mg Tablet 45 mg PO QHS nystatin 100,000 unit/gram powder 1 applic TOPICAL DAILY PRN (Reason: Skin Irritation) lactulose 10 gram/15 mL Solution 40 g PO QHS Centrum Silver Women 8 mg iron-400 mcg-300 mcg Tablet 1 tab PO DAILY melatonin 10 mg Tablet 5 mg PO QHS food supplemt, lactose-reduced 0.08 gram-1.5 kcal/mL liquid 250 ml PO 4X/DAY polyethylene glycol 3350 17 gram Powder In Packet 17 g PO DAILY Qty: 0 0RF Osteo Bi-Flex Triple Strength 750 mg-644 mg- 30 mg-1 mg tablet 1 tab PO BID pantoprazole 40 mg tablet,delayed release (DR/EC) 40 mg PO DAILY 30 Days Qty: 30 12RF Rx Instructions: Take 40 mg BID for 12 weeks and then taper to 40 mg 1 qd thereafter Primary Care Provider: Alexandria Carranza Referrals: Alexandria Carranza MD [Primary Care Provider] - Disposition Disposition: Acute Care Hospital [facility]
[2023-09-04] VITALS (14 sets, daily range): BP systolic 88–156; BP diastolic 52–70; PULSE 78–107; RESP 17–21; TEMP 36.1–37.4; O2SAT 93–96; BMI 21.4
[2023-09-04] MEDS: 0.9% Normal Saline (500mL Bag) 500 ML 999 ML IV (01:07)
[2023-09-04] MEDS: Acetaminophen 650 MG/20 ML UDC 1000 MG PO (01:07)
[2023-09-04 01:12] LABS: Absolute Lymphocyte Count 1.09 X10^3/uL (0.83-4.51); Absolute Neutrophil Count 11.1 X10^3/uL (2.0-7.7); Basophil# 0.05 X10^3/uL; Basophil% 0.4 % (0-1); Eosinophil# 0.24 X10^3/uL; Eosinophils% 1.8 % (0-5); Hematocrit 39.9 % (37-47); Hemoglobin 13.2 g/dL (12.0-15.0); Lymphocyte # 1.09 X10^3/ul (0.83-4.51); Lymphocyte % 8.1 % (19-41); Mean Corp Hgb Conc 33.1 g/dL (32-36); Mean Corpuscular Hgb 31.7 pg (27.0-32.0); Mean Corpuscular Volume 95.9 fL (81-99); Mean Platelet Vol. 9.6 fl (6.2-12.0); Monocyte# 0.84 X10^3/uL; Monocyte% 6.3 % (0-10); NRBC Flagged by Analyzer 0 % (0-5); Neutrophil # 11.11 X10^3/uL (2.7-7.7); Platelet Count 218 K/mm3 (150-450); RBC Distribution Width CV 13.9 % (11.6-14.6); RBC Distribution Width SD 49.1 fl (35.1-43.9); Red Blood Count 4.16 M/mm3 (4.2-5.4); White Blood Count 13.4 K/mm3 (4.4-11.0)
[2023-09-04 01:32] LABS: ALB/GLOB Ratio 0.7 RATIO (0.9-2.4); AST(SGOT) 13 U/L (15-37); Alanine Aminotransfer ALT/SGPT 17 U/L (13-56); Albumin, Serum 3.3 g/dL (3.2-5.0); Alkaline Phosphatase 78 U/L (45-117); Anion Gap 4 (5-15); BUN 21 mg/dL (7-18); BUN/Creat Ratio 15.6 RATIO (10-20); Calcium,Total 9.4 mg/dL (8.5-10.1); Chloride 99 mmol/L (98-107); Creatinine, Serum 1.35 mg/dL (0.55-1.02); EST Glomerular Filtration Rate 41 mL/min (>60); Est Glom Filt Rate - Afr Amer 50 mL/min (>60); Estimated Creatinine Clearance 43.13 ml/min; Globulin 4.6 g/dL (2.2-4.2); Glucose 122 mg/dL (74-106); Potassium 4.2 mmol/L (3.5-5.1); Protein, Total 7.9 g/dL (6.4-8.2); Sodium Level 134 mmol/L (136-145); Troponin-I HS 14 pg/mL (3.0-54.0)
[2023-09-04 01:38] LABS: Lactic Acid 1.3 mmol/L (0.4-1.9)
[2023-09-04 01:55] LABS: International Normalized Ratio 0.9; Prothrombin Time (Protime)PT. 12.5 SECONDS (11.7-14.9)
[2023-09-04 01:56] LABS: Partial Thromboplast Time 37.8 Seconds (24.1-36.2)
[2023-09-04] MEDS: Ceftriaxone 1 GM/50 ML BAG IV (03:17)
[2023-09-04] MEDS: 0.9% Normal Saline (1000mL) 1,000 ML 100 ML IV ×2 (03:17→14:38)
--- NOTE | 2023-09-04 03:44 | ED.RN ---
elias bag replaced
[2023-09-04 04:03] LABS: Mucous, Urine 0 SEEN /hpf (<or=2+); Red Blood Cells-Urine 0 SEEN /hpf (0-5); Squamous Epithelial Cells - UA 0 SEEN /hpf (5-10)
--- NOTE | 2023-09-04 04:18 | ED.RN ---
spouse requesting that dr aquino allow meds to be given via peg tube. also requests notation that pt is not to have mri until he is able to confirm that pt does not have a metal clip in her abdomen.
[2023-09-04 04:19] LABS: Color, Urine Yellow (Yellow); Glucose, Dipstick Normal (Normal); Ketone-Dipstick Negative (Negative); Leukocyte Esterase-Dipstick 500 /ul (Negative); Nitrite-Dipstick Negative (Negative); Occult Blood-Urine 10 /ul (Negative); Protein-Dipstick 15 mg/dl (Negative); Specific Gravity, Urine 1.015 (1.002-1.030); Urine Bilirubin Dipstick Negative (Negative); Urine Clarity Clear (Clear); Urine Urobilinogen Normal (Normal)
--- NOTE | 2023-09-04 04:20 | HP.PCM.HOS_ITS ---
HPI - General General Date of Admission: 09/04/23 Date of Service: 09/04/23 Chief Complaint: Shortness of breath HPI Narrative KEN CASON, is a 68 F who presents was having abnormal respirations at home. Is concerned that she may have aspirated as her pulse ox was low at home. Patient normally wears oxygen at nighttime but did have a low pulse ox at home. Sent to the emergency room where she had a x-ray of her chest that showed left lower lobe infiltrate. Patient received a dose of ceftriaxone. Patient is recently had a urinary tract infection was treated with Bactrim. The urine culture came back showing Serratia which was sensitive to Bactrim. Patient has been feeling weaker. Patient is debilitated from her multiple sclerosis and is dependent on much of her ADLs with her whom she resides with. She does not eat but that is supplemented with PEG tube. Previously with G-tube then transition over to a PEG tube. Patient has had history of vomiting in the past. This seems to be doing better since the PEG tube was placed. [facility] Medical History (Updated 09/04/23 @ 04:[address] Mohit Arroyo, ) Age-related cognitive decline Alcohol use Allergic rhinitis Anemia Arthritis Back pain Bilateral hydronephrosis Blackout Chronic kidney disease, stage 3 unspecified CKD (chronic kidney disease) stage 4, GFR 15-29 ml/min Complicated urinary tract infection Declining functional status Dental bridge present Depression Difficulty chewing Difficulty swallowing Elevated sed rate Elevated serum globulin level Endometrial thickening on ultrasound High cholesterol History of echocardiogram History of edema History of multiple sclerosis History of wrist fracture Hyperlipidemia Hypertension Hypoxia Indwelling urethral catheter present Injury of back Insomnia Iron deficiency anemia Loss of hearing Low iron Malnutrition Migraine headache Migraine headache MRSA colonization Multiple sclerosis Multiple sclerosis Muscle spasm Neurogenic bladder Non-smoker OAB (overactive bladder) Occlusion and stenosis of bilateral carotid arteries Partial seizure Pelvic pain Poor appetite Port-A-Cath in place Post-menopausal Right hemiparesis Suprapubic catheter Urinary tract infection Uses wheelchair Vitamin D deficiency Weakness Wears glasses Home Medications acetaminophen 500 mg tablet 1,000 mg PO Q6H PRN Pain 02/15/19 [History Last Taken 07/08/23] magnesium oxide 400 mg (241.3 mg magnesium) tablet 400 mg PO QHS magnesium supplement 05/23/19 [History Last Taken 07/08/23] polysaccharide iron complex 150 mg iron capsule 150 mg PO DAILY iron replacement 05/23/19 [History Last Taken 07/08/23] krill 1,000 mg-omega-3 170 mg-dha 50 mg-epa 80 [id number] capsule (krill oil) 500 cap PO BID supplement 11/15/20 [History Last Taken 07/08/23] vitamin B complex-folic acid 0.4 mg tablet (B Complex 1 (with folic acid)) 1 tab PO DAILY vitamin 11/15/20 [History Last Taken 07/08/23] cholecalciferol (vitamin D3) 1,250 mcg (50,000 unit) capsule 50,000 unit PO QMONTH vitamin 08/15/21 [History Last Taken 07/08/23] cinacalcet 30 mg tablet 30 mg PO QODAY hyperparathyroidism 11/24/21 [History Last Taken 07/08/23] fexofenadine 180 mg tablet 180 mg PO DAILY ALLERGIES 07/22/22 [History Last Taken 07/08/23] ondansetron 4 mg disintegrating tablet 4 mg PO Q8H PRN nausea and vomiting #10 tabs 07/22/22 [Rx Last Taken 07/08/23] ascorbic acid (vitamin C) 1,000 mg tablet,extended release (Vitamin C ER) 1,000 mg PO BREAKFAST SUPPLEMENT 07/23/22 [History Last Taken 07/08/23] baclofen 20 mg tablet 20 mg PO TID MUSCLE SPASMS 09/10/22 [History Last Taken 07/09/23] food supplemt, lactose-reduced 0.08 gram-1.5 kcal/mL oral liquid 250 ml PO 4X/DAY SUPPLEMENT 09/15/22 [History Last Taken 07/08/23] lactulose 10 gram/15 mL oral solution 40 g PO QHS CONSTIPATION 09/15/22 [History Last Taken 07/08/23] melatonin 10 mg tablet 5 mg PO QHS INSOMNIA 09/15/22 [History Last Taken 07/08/23] mirtazapine 30 mg tablet 45 mg PO QHS 09/15/22 [History Last Taken 07/08/23] [id number]-ikov-[id number] 8 mg-folic 400 mcg-K 50 mcg-lutein 300 mcg tablet (Centrum Silver Women) 1 tab PO DAILY health maintenance 09/15/22 [History Last Taken 07/08/23] nystatin 100,000 unit/gram topical powder 1 applic topical DAILY PRN Skin Irritation 09/15/22 [History Last Taken 07/08/23] polyethylene glycol 3350 17 gram oral powder packet 17 g PO DAILY #0 ea 09/22/22 [Rx Last Taken 07/08/23] glucosamine 750 jn-sezszeoijpx-gbt no1 644 mg-C 30 mg-laura 1 mg tablet (Osteo Bi-Flex Triple Strength) 1 tab PO BID 07/07/23 [History Last Taken 07/08/23] pantoprazole 40 mg tablet,delayed release 40 mg PO DAILY 30 days #30 tabs 07/22/23 [Rx Last Taken Unknown] Allergy/AdvReac Type Severity Reaction Status Date / Time dextrose 5 % in water AdvReac Other Verified 09/03/23 23:18 [From Zyvox] doxycycline AdvReac hypotension Verified 09/03/23 23:18 levofloxacin [From Levaquin] AdvReac hypotension Verified 09/03/23 23:18 linezolid [From Zyvox] AdvReac Other Verified 09/03/23 23:18 morphine AdvReac hallucinati Verified 09/03/23 23:18 ons piperacillin [From Zosyn] AdvReac hypotension Verified 09/03/23 23:18 sulfamethoxazole AdvReac hypotension Verified 09/03/23 23:18 [From Bactrim] tazobactam [From Zosyn] AdvReac hypotension Verified 09/03/23 23:18 trimethoprim [From Bactrim] AdvReac hypotension Verified 09/03/23 23:18 vancomycin AdvReac developed Verified 09/03/23 23:18 toxic levels Family History Mother Osteoporosis Grandmother Breast cancer Father Hypertension HLD (hyperlipidemia) Surgical History H/O cervical polypectomy H/O dilation and curettage History of cystoscopy History of esophagogastroduodenoscopy (EGD) History of tonsillectomy and adenoidectomy History of tympanoplasty Hx of hand surgery Hx of shoulder surgery S/P laparoscopic procedure S/P percutaneous endoscopic gastrostomy (PEG) tube placement Social History household members: spouse housing: house Smoking Status: Never smoker alcohol intake: never substance use type: does not use what type of physical activity do you participate in: none seatbelt use: always do you feel safe at home: Yes 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 Unable to obtain a review of systems due to her inability to speak at this time. Vital Signs Vital Signs Vital Signs: 09/03/23 23:24 09/03/23 23:30 09/03/23 23:30 Temperature 37.4 C H 37.4 C H Temperature Source Temporal Temporal Pulse Rate 109 H 112 H Respiratory Rate 23 H 21 H Respiratory Effort Respiratory Depth Respiratory Pattern Blood Pressure 134/95 H 132/98 H Blood Pressure Mean 108 109 Pulse Ox 89 90 92 Oxygen Delivery Method Nasal Cannula High Flow Nasal Cannula Oxygen Flow Rate (L/min) 4 8 8 09/03/23 23:38 09/04/23 01:21 09/04/23 01:21 Temperature 37.4 C H Temperature Source Temporal Pulse Rate 107 H Respiratory Rate 21 H Respiratory Effort Accessory Muscle Use Respiratory Depth Normal Respiratory Pattern Tachypnea Blood Pressure 156/56 H Blood Pressure Mean 89 Pulse Ox 96 Oxygen Delivery Method High Flow Room Air Nasal Cannula Oxygen Flow Rate (L/min) 8 8 6 09/04/23 02:00 09/04/23 03:49 09/04/23 03:50 Temperature 37.3 C 36.6 C Temperature Source Oral Pulse Rate 100 95 Respiratory Rate 17 17 Respiratory Effort Respiratory Depth Respiratory Pattern Blood Pressure 104/67 88/55 L Blood Pressure Mean 79 66 Pulse Ox 94 93 Oxygen Delivery Method Nasal Cannula Nasal Cannula Oxygen Flow Rate (L/min) 6 4 Weight Weight: 73.3 kg Body Mass Index (BMI) 23.1 Physical Exam Const alert and no apparent distress Constitutional Narrative: Is able to say some incomprehensible words but is not toxic. HEENT normocephalic HEENT Narrative: Mucous membranes are moist Eyes EOMs intact bilaterally Eyes Narrative: No icterus Neck no lymphadenopathy Neck Narrative: No thyromegaly Resp normal respiratory effort Resp Narrative: Left lower lobe crackles Cardio regular rate, regular rhythm, S1 normal heart sound and S2 normal heart sound GI normal to inspection, nondistended, normoactive bowel sounds, soft to palpation and non-tender GI Narrative: PEG tube left upper quadrant. Some surrounding irritation about a centimeter out circumferentially around the PEG tube. Extremity Extremity Narrative: Plantar contractions of the lower extremities Skin Skin Narrative: No rashes or sores Neuro Sensorium / Orientation: awake Speech: Negative for speech normal Results Lab / Micro Data Attestation: I reviewed the patient's lab results. 09/03/23 00:55 09/03/23 00:55 Labs: Laboratory Results - last 24 hr 09/03/23 00:55: WBC 13.4 H, RBC 4.16 L, Hgb 13.2, Hct 39.9, MCV 95.9, MCH 31.7, MCHC 33.1, RDW Std Deviation 49.1 H, RDW Coeff of Niurka 13.9, Plt Count 218, MPV 9.6, Immature Gran % (Auto) 0.400, Neut % (Auto) 83.0 H, Lymph % (Auto) 8.1 L, [place] % (Auto) 6.3, Eos % (Auto) 1.8, Baso % (Auto) 0.4, Absolute Neuts (auto) 11.1 H, Absolute Lymphs (auto) 1.09, Nucleated RBC % 0, PT 12.5, INR 0.9, APTT 37.8 H, Sodium 134 L, Potassium 4.2, Chloride 99, Carbon Dioxide 31.0, Anion Gap 4 L, BUN 21 H, Creatinine 1.35 H, Estim Creat Clear Calc 43.13, Est GFR (MDRD) Af Amer 50 L, Est GFR (MDRD) Non-Af 41 L, BUN/Creatinine Ratio 15.6, Glucose 122 H, Lactic Acid 1.3, Calcium 9.4, Total Bilirubin 0.20, AST 13 L, ALT 17, Alkaline Phosphatase 78, Troponin I High Sens 14, Total Protein 7.9, Albumin 3.3, Globulin 4.6 H, Albumin/Globulin Ratio 0.7 L Rhythm Strip Rhythm Strip: Sinus Tach Rate: 109 Ectopy: None Imagaing Radiology Impression Chest X-Ray 09/03/23 01:40 IMPRESSION: Left basilar opacity could be atelectasis or pneumonia. Aspiration is possible. Electronically Signed: Willian Singleton MD at 2:39 EST , On my review, there is either atelectasis or pneumonia in the left lower lobe. Does have elevated right hemidiaphragm which is unchanged from previous x-rays. Dilated loops of bowel. Assessment & Plan Assessment/Plan (1) Aspiration pneumonia: PLAN: Concerning. Will continue with ceftriaxone but also add azithromycin. Continue bronchodilators. Check urinary antigens for Streptococcus and Legionella. Will have speech therapy evaluate her. Patient will be on a pur?ed diet for now. (2) Hypoxemia: PLAN: Secondary to pneumonia but also patient has chronically elevated right hemidiaphragm which complicates her respirations. Patient also, with her MS whe n she gets sick, is weak overall so the may be a restrictive component due to diffuse muscle weakness throughout. Wean oxygen as tolerated. (3) Weakness: PLAN: Likely due to the patient's advanced MS as well as worsening weakness when she does get sick. Will have physical and Occupational Therapy see her. Patient is cared for very well by her at home. Plan is for her eventually to return home with his care. PLAN: Plan Chronic conditions * Multiple sclerosis: Continue with baclofen * Chronic malnutrition: Patient does take mirtazapine to help stimulate her appetite. Consult nutrition for input. Patient does have a PEG tube to supplement her. * Peptic ulcer disease: Continue with pantoprazole VTE prophylaxis with enoxaparin Disposition: To be determined. Once patient is able to eat and be able to take fluids via her PEG tube, the plan will likely be to discharge her at some point around there. Patient does have pneumonia but do not think this can be the rate limiting factor in regards to her going home. asked about the patient going to the PCU. I told him that she really does not meet the criteria for the PCU and put in for going to the medical surgical unit. He expressed that he is concerned about the care being better in the progressive care unit rather than the MedSurg unit. Told him I understood however I have to abide by once appropriate level of care for all patients in [facility]. He expressed understanding. CODE STATUS: Addressed with the patient's . Patient is to be full code. Charges/Coding Visit Charges Inpatient E&M: 00101 Init Hosp L3
[2023-09-04 04:28] LABS: Bacteria 1+ /hpf (None Seen); White Blood Cells 0-5 SEEN /hpf (0-5)
--- NOTE | 2023-09-04 04:55 | RAD_ITS ---
STUDY: X-RAY - ABDOMEN/PELVIS REASON FOR EXAM: Female, 68 years old. vomiting. TECHNIQUE: Single AP view of the abdomen / pelvis. COMPARISON: None. FINDINGS: There is an unremarkable bowel gas pattern. The visualized liver, spleen and kidneys are grossly normal in size and morphology. Normal soft tissue structures. Normal visualized osseous structures. RAD/Abdomen Single View (Portable) IMPRESSION: Normal x-ray examination of the abdomen and pelvis. Electronically Signed: Bill Carter MD at 9:49 EST ,
[2023-09-04] MEDS: Ipratropium/Albuterol Sulfate 3 ML AMPUL.NEB INHALATION ×4 (07:21→20:13)
--- NOTE | 2023-09-04 09:26 | CASEMGMT ---
Social Work Durable POA is scanned into [employer], Nakul Sharp is listed as pt's POA, and this POA form does include a provision regarding medical decisions. LISBETH Dihllon
[2023-09-04] MEDS: Azithromycin 500 MG in Dextrose 5%-Water (250mL Bag) 250 ML 250 MG IV (10:12)
--- NOTE | 2023-09-04 10:15 | CASEMGMT ---
RN CM Face to Face with patient for initial transition planning/care coordination assessment. RN CM introduced self and role at [facility]. Patient lying in bed, alert and oriented, at bedside. willing to participate in assessment and is able to answer all questions appropriately. Care providers, pharmacy, and demographics verified. Patient and wish to discharge home with [facility]. Patient and decline list of HHC agencies and prefer [facility]. Patient and states they have no further needs or concerns at this time. CM to follow for discharge planning needs that may arise. PCP: Tere Specialists: Sherry, neurologist; Diamond Manager People; Tal urologist; , data operations leader; Phuc, BILLBOARD INSTALLER Preferred Pharmacy: [facility] Insurance: [facility] Prescription Benefit: yes Living Will/HPOA: yes, Siva Sharp LNOK: Living Arrangements: Patient lives with in a single story home with ramp to enter the home. assists patient with ADLs Transportation: DME/HHC: Patient has adjustable bed, shower chair, BSC, boris, grab bars, hand held shower, wheelchair, pulse ox, and home oxygen at 4lpm HS through [place]. Patient has been to TCU in the past. Patient has had [facility] HHC in the past. CM to make referral to [facility] for nursing and therapy. Disposition Plan: Patient to discharge home with C, family support, and follow-up plans in place.
--- NOTE | 2023-09-04 10:22 | PCM.HOSP.N ---
Hospitalist Note Ms. Sharp was admitted earlier this morning secondary to hypoxemia and concerns for aspiration pneumonia. She was seen at bedside with present and reports she is feeling very tired. Has some slight crackles at left base but otherwise lungs clear. Presently 96% on 2 L nasal cannula, remains on IV antibiotics.
[2023-09-04] MEDS: guaiFENesin 1,200 MG Tablet 1200 MG PO ×2 (10:24→20:43)
[2023-09-04] MEDS: Pantoprazole Sodium 40 MG Tablet PO ×2 (10:24→20:43)
[2023-09-04] MEDS: Iron Polysaccharide Complex 150 MG CAPSULE PO (10:24)
[2023-09-04] MEDS: Vitamin B Comp W-C Capsule 1 CAP PO (10:24)
[2023-09-04] MEDS: Loratadine 10 MG Tablet PO (10:24)
[2023-09-04] MEDS: Multivitamins,Ther W-Minerals Tablet 1 TABLET PO (10:24)
[2023-09-04] MEDS: Ascorbic Acid 500 MG Tablet 1000 MG PO (10:24)
[2023-09-04] MEDS: Polyethylene Glycol 3350 17 GM PACKET PO (10:25)
[2023-09-04] MEDS: Ensure Plus High Protein 120 ML LIQUID 250 ML PO ×3 (10:44→17:43)
--- NOTE | 2023-09-04 10:59 | CASEMGMT ---
SHARLENE LATHAM Assessment: RN CM to room to meet with patient and for initial transition planning/care coordination assessment. RN CM introduced self and role at [facility]. Patient lying in bed, alert and oriented, at bedside. willing to participate in assessment and is able to answer all questions appropriately. Care providers, pharmacy, and demographics verified. Patient and wish to discharge home with [facility]. Patient and decline list of HHC agencies and [facility]. states does not need SN, only therapy. Patient and states they have no further needs or concerns at this time. CM to follow for discharge planning needs that may arise. PCP: Dr Carranza Specialists: Dr Woods-neurologist; Dr Fields-ephrologist; Dr Parada-urologist; Dr Chavez-chemical worker; Dr Friend-ASSURANCE SENIOR, Dr Cummings-GI Preferred Pharmacy: [facility] Insurance: [facility] Prescription Benefit: yes LNOK: Living Arrangements: Patient lives with in a single story home with ramp to enter the home. is pt's caregiver and assists patient with ADLs, does med mgnt, SP cath care, PEG tube supplemental feedings, and IADL's. Transportation: DME: Patient has adjustable bed, shower chair, BSC, boris lift, hand held shower, wheelchair, pulse ox, and home oxygen at 4lpm HS through [place]. They get all supplies for SP cath and PEG from [facility] as well. SNF/HHC: Patient has been to [facility] TCU in the past. Patient has had [facility] HHC in the past. VM left for referral to [facility] for PT/OT. Awaiting acceptance. Plan: Patient to discharge home with [facility], spousal support, and discharge plans in place. ST eval pending. Follow for possible need of ST to be added to HHC order. Brit DUONG RN, CM
[2023-09-04] MEDS: Baclofen 10 MG Tablet 20 MG PO ×2 (15:08→20:42)
[2023-09-04] MEDS: Lactulose 20 GM/30 ML UDC 40 GM PO (20:42)
[2023-09-04] MEDS: Magnesium Chloride 64 MG Delay Rel.Tablet 128 MG PO (20:42)
[2023-09-04] MEDS: Mirtazapine 30 MG Tablet 45 MG PO (20:42)
[2023-09-04] MEDS: Jevity 1.5. 1,000 ML Bottle 250 ML GT (20:43)
[2023-09-04] MEDS: MELATONIN 10 MG TABLET PO (20:43)
[2023-09-04] MEDS: Ceftriaxone 2 GM in 0.9% Normal Saline (50mL MB+) 50 ML IV (21:07)
[2023-09-05] VITALS (8 sets, daily range): BP systolic 102–119; BP diastolic 59–66; PULSE 85–97; RESP 16–20; TEMP 36.4–36.8; O2SAT 92–96
[2023-09-05] MEDS: 0.9% Normal Saline (1000mL) 1,000 ML 100 ML IV (01:32)
--- NOTE | 2023-09-05 02:13 | CPS ---
Pt is too week to do PEP
[2023-09-05] MEDS: Baclofen 10 MG Tablet 20 MG PO ×3 (05:14→22:16)
[2023-09-05] MEDS: Ipratropium/Albuterol Sulfate 3 ML AMPUL.NEB INHALATION ×3 (07:07→18:39)
[2023-09-05 07:18] LABS: Absolute Lymphocyte Count 2.11 X10^3/uL (0.83-4.51); Absolute Neutrophil Count 5.8 X10^3/uL (2.0-7.7); Basophil# 0.03 X10^3/uL; Basophil% 0.3 % (0-1); Eosinophil# 0.42 X10^3/uL; Eosinophils% 4.5 % (0-5); Hematocrit 32.9 % (37-47); Hemoglobin 10.3 g/dL (12.0-15.0); Lymphocyte # 2.11 X10^3/ul (0.83-4.51); Lymphocyte % 22.5 % (19-41); Mean Corp Hgb Conc 31.3 g/dL (32-36); Mean Corpuscular Hgb 31.3 pg (27.0-32.0); Mean Platelet Vol. 9.9 fl (6.2-12.0); Monocyte# 0.95 X10^3/uL; Monocyte% 10.1 % (0-10); NRBC Flagged by Analyzer 0 % (0-5); Neutrophil % 62.1 % (47-70); Platelet Count 199 K/mm3 (150-450); RBC Distribution Width CV 14.4 % (11.6-14.6); RBC Distribution Width SD 53.3 fl (35.1-43.9); Red Blood Count 3.29 M/mm3 (4.2-5.4); White Blood Count 9.4 K/mm3 (4.4-11.0)
[2023-09-05 08:10] LABS: Anion Gap 4 (5-15); BUN 19 mg/dL (7-18); BUN/Creat Ratio 15.7 RATIO (10-20); Calcium,Total 8.7 mg/dL (8.5-10.1); Chloride 110 mmol/L (98-107); Creatinine, Serum 1.21 mg/dL (0.55-1.02); EST Glomerular Filtration Rate 47 mL/min (>60); Est Glom Filt Rate - Afr Amer 57 mL/min (>60); Estimated Creatinine Clearance 47.77 ml/min; Glucose 93 mg/dL (74-106); Potassium 4.2 mmol/L (3.5-5.1); Sodium Level 140 mmol/L (136-145)
--- NOTE | 2023-09-05 08:34 | PCM.PN.HOSP ---
Reason for Visit Reason for Visit: Diagnoses Pneumonitis due to inhalation of food and vomit (09/04/23) Hypoxemia (09/04/23) Weakness (09/04/23) Subjective Subjective Breathing roughly the same, was able to bring in her docusate enemas so these can be started, patient still feeling weak overall, no abdominal pain Objective Data Objective Data Vital Signs: Vital Signs Temp Pulse Resp BP Pulse Ox O2 Del Method O2 Flow Rate 97.6 F L 86 18 102/61 96 Nasal Cannula 2 09/05/23 05:05 09/05/23 05:05 09/05/23 05:05 09/05/23 05:05 09/05/23 05:05 09/05/23 05:05 09/05/23 05:05 Oxygen Flow Rate (L/min) 2 Oxygen Delivery Method Nasal Cannula Weight: 68 kg Body Mass Index (BMI) 21.4 Intake & Output: Intake and Output for Last 24 Hours 09/03/23 09/04/23 09/05/23 23:59 23:59 23:59 Intake Total 2905 / 3025 1120 / 1120 Output Total 1150 / 1325 575 / 575 Balance 1755 / 1700 545 / 545 Lab / Micro Data 09/05/23 06:32 09/05/23 06:32 Labs: Laboratory Results - last 24 hr 09/05/23 06:32: WBC 9.4, RBC 3.29 L, Hgb 10.3 L, Hct 32.9 L, MCV 100.0 H, MCH 31.3, MCHC 31.3 L D, RDW Std Deviation 53.3 H, RDW Coeff of Niurka 14.4, Plt Count 199, MPV 9.9, Immature Gran % (Auto) 0.500, Neut % (Auto) 62.1, Lymph % (Auto) 22.5, [place] % (Auto) 10.1 H, Eos % (Auto) 4.5, Baso % (Auto) 0.3, Absolute Neuts (auto) 5.8, Absolute Lymphs (auto) 2.11, Nucleated RBC % 0, Sodium 140, Potassium 4.2, Chloride 110 H, Carbon Dioxide 26.0, Anion Gap 4 L, BUN 19 H, Creatinine 1.21 H, Estim Creat Clear Calc 47.77, Est GFR (MDRD) Af Amer 57 L, Est GFR (MDRD) Non-Af 47 L, BUN/Creatinine Ratio 15.7, Glucose 93, Calcium 8.7 Micro: Microbiology 09/04/23 03:54 Urine Catheter - Catheter Legionella Antigen - Final 09/04/23 03:54 Urine Catheter - Catheter Streptococcus pneumoniae Antigen (M - Final Radiography Diagnostic Testing: Radiology Impression KUB X-Ray 09/04/23 04:55 IMPRESSION: Normal x-ray examination of the abdomen and pelvis. Electronically Signed: Bill Carter MD at 9:49 EST , Rhythm Strip Rhythm Strip: Sinus Tach Rate: 109 Ectopy: None Physical Exam Narrative General: Alert, no apparent distress HEENT: Atraumatic, normocephalic Eyes: Anicteric Neck: Supple Respiratory: Some crackles at left base t Cardiovascular: Regular rate and rhythm GI: Soft, nontender, nondistended Extremities: No significant pitting edema Musculoskeletal: Chronic limitations Neuro: Chronic changes associated with MS Skin: No rashes appreciated Psych: Cooperative Assessment & Plan Assessment/Plan (1) Aspiration pneumonia: PLAN: Concerning. Will continue with ceftriaxone but also add azithromycin. Continue bronchodilators. Check urinary antigens for Streptococcus and Legionella. Will have speech therapy evaluate her. Patient will be on a pur?ed diet for now. (2) Weakness: PLAN: Plan #Pneumonia -CAP vs aspiration pneumonia -Noted to have low pulse ox at home but has been saturating mid 90s on 2 L O2 while here -Presented and had chest x-ray with left lower lobe infiltrate, patient on azithromycin and Rocephin -Presentation complicated by chronically elevated right hemidiaphragm and weakness associated with MS -Continue Mucinex -Urine antigens negative, blood cultures pending -Sputum culture if able -Nebs #Recent urinary tract infection -Had recent urine culture positive for Serratia and has been on Bactrim, on Rocephin for her PNA which also covers this #CKD stage IIIa -Creatinine 1.35 on presentation and down trended slightly to 1.21, has received 100 and hour of IVF, will decrease to 50 an hour, presently close to baseline -Maintain nutrition, monitor urine output #Multiple sclerosis with PEG tube and suprapubic catheter -Continue baclofen and supportive care -Nutrition consulted, appreciate input, continue mirtazapine and Ensure -Was supposed to have appointment with Dr. Parada due to some friable granulation tissue around suprapubic catheter that has been irritated but will miss this due to being in the hospital #GERD and history of gastric erosions -Continue PPI #Chronic constipation -On lactulose nightly as well as MiraLAX and Metamucil -We do not have docusate enemas available on formulary VTE prophylaxis with enoxaparin Time spent in the patient's overall evaluation,decision-making process, review of diagnostic data, adjustment of management, discussion with other providers, nursing nursing and ancillary staff involved in patient's care documentation, 51 minutes Charges/Coding Visit Charges Inpatient E&M: 00529 [facility] Hosp L3
[2023-09-05] MEDS: Ascorbic Acid 500 MG Tablet 1000 MG PO (10:11)
[2023-09-05] MEDS: Multivitamins,Ther W-Minerals Tablet 1 TABLET PO (10:11)
[2023-09-05] MEDS: Jevity 1.5. 1,000 ML Bottle 250 ML GT ×3 (10:11→22:18)
[2023-09-05] MEDS: Vitamin B Comp W-C Capsule 1 CAP PO (10:11)
[2023-09-05] MEDS: Ensure Plus High Protein 120 ML LIQUID 250 ML PO ×3 (10:12→22:25)
[2023-09-05] MEDS: Loratadine 10 MG Tablet PO (10:12)
[2023-09-05] MEDS: Psyllium 1 PACKET PO (10:14)
[2023-09-05] MEDS: Polyethylene Glycol 3350 17 GM PACKET PO (10:14)
[2023-09-05] MEDS: guaiFENesin 1,200 MG Tablet 1200 MG PO ×2 (10:14→22:16)
[2023-09-05] MEDS: Iron Polysaccharide Complex 150 MG CAPSULE PO (10:14)
[2023-09-05] MEDS: Pantoprazole Sodium 40 MG Tablet PO ×2 (10:15→22:17)
[2023-09-05] MEDS: Azithromycin 500 MG in Dextrose 5%-Water (250mL Bag) 250 ML 250 MG IV (10:15)
[2023-09-05] MEDS: Acetaminophen 500 MG Tablet 1000 MG PO (10:20)
[2023-09-05] MEDS: 0.9% Normal Saline (1000mL) 1,000 ML 50 ML IV (13:48)
[2023-09-05] MEDS: Lactulose 20 GM/30 ML UDC 40 GM PO (22:16)
[2023-09-05] MEDS: Mirtazapine 30 MG Tablet 45 MG PO (22:16)
[2023-09-05] MEDS: Magnesium Chloride 64 MG Delay Rel.Tablet 128 MG PO (22:16)
[2023-09-05] MEDS: MELATONIN 10 MG TABLET PO (22:17)
[2023-09-05] MEDS: Ceftriaxone 2 GM in 0.9% Normal Saline (50mL MB+) 50 ML IV (22:25)
[2023-09-06] VITALS (7 sets, daily range): BP systolic 118–175; BP diastolic 62–94; PULSE 84–99; RESP 16–18; TEMP 36.4–36.9; O2SAT 93–97
[2023-09-06] MEDS: Acetaminophen 500 MG Tablet 1000 MG PO ×2 (03:08→15:31)
[2023-09-06] MEDS: Baclofen 10 MG Tablet 20 MG PO ×3 (06:32→22:03)
[2023-09-06 06:49] LABS: Absolute Lymphocyte Count 2.24 X10^3/uL (0.83-4.51); Absolute Neutrophil Count 4.1 X10^3/uL (2.0-7.7); Basophil# 0.06 X10^3/uL; Basophil% 0.8 % (0-1); Eosinophil# 0.49 X10^3/uL; Eosinophils% 6.4 % (0-5); Hematocrit 34.2 % (37-47); Hemoglobin 10.5 g/dL (12.0-15.0); Lymphocyte # 2.24 X10^3/ul (0.83-4.51); Lymphocyte % 29.1 % (19-41); Mean Corp Hgb Conc 30.7 g/dL (32-36); Mean Corpuscular Hgb 31.3 pg (27.0-32.0); Mean Corpuscular Volume 101.8 fL (81-99); Mean Platelet Vol. 9.5 fl (6.2-12.0); Monocyte% 10.4 % (0-10); NRBC Flagged by Analyzer 0 % (0-5); Neutrophil # 4.07 X10^3/uL (2.7-7.7); Neutrophil % 52.9 % (47-70); Platelet Count 203 K/mm3 (150-450); RBC Distribution Width CV 14.4 % (11.6-14.6); RBC Distribution Width SD 53.5 fl (35.1-43.9); Red Blood Count 3.36 M/mm3 (4.2-5.4); White Blood Count 7.7 K/mm3 (4.4-11.0)
[2023-09-06 07:23] LABS: Anion Gap 2 (5-15); BUN 24 mg/dL (7-18); BUN/Creat Ratio 20.2 RATIO (10-20); Calcium,Total 9.5 mg/dL (8.5-10.1); Chloride 110 mmol/L (98-107); Creatinine, Serum 1.19 mg/dL (0.55-1.02); EST Glomerular Filtration Rate 48 mL/min (>60); Est Glom Filt Rate - Afr Amer 58 mL/min (>60); Estimated Creatinine Clearance 48.57 ml/min; Glucose 90 mg/dL (74-106); Potassium 4.8 mmol/L (3.5-5.1); Sodium Level 142 mmol/L (136-145)
[2023-09-06] MEDS: Ipratropium/Albuterol Sulfate 3 ML AMPUL.NEB INHALATION ×2 (07:37→18:30)
--- NOTE | 2023-09-06 08:11 | PCM.PN.HOSP ---
Reason for Visit Reason for Visit: Diagnoses Pneumonitis due to inhalation of food and vomit (09/04/23) Hypoxemia (09/04/23) Weakness (09/04/23) Subjective Subjective Patient is a 68-year-old lady with history of multiple sclerosis with significant debility brought to the emergency department by her with generalized weakness and assessment of pneumonia made admitted to a monitored bed for subsequent management Objective Data Objective Data Vital Signs: Vital Signs Temp Pulse Resp BP Pulse Ox O2 Del Method O2 Flow Rate 97.8 F 90 18 118/62 96 Nasal Cannula 2 09/06/23 03:15 09/06/23 07:37 09/06/23 07:37 09/06/23 03:15 09/06/23 07:37 09/06/23 07:37 09/06/23 07:37 Oxygen Flow Rate (L/min) 2 Oxygen Delivery Method Nasal Cannula Weight: 68 kg Body Mass Index (BMI) 21.4 Intake & Output: Intake and Output for Last 24 Hours 09/04/23 09/05/23 09/06/23 23:59 23:59 23:59 Intake Total 2905 / 3025 2565.00 / 2565.00 240 / 240 Output Total 1150 / 1325 1175 / 1175 400 / 400 Balance 1755 / 1700 1390.00 / 1390.00 -160 / -160 Lab / Micro Data 09/06/23 06:42 09/06/23 06:42 Labs: Laboratory Results - last 24 hr 09/05/23 06:32: WBC 9.4, RBC 3.29 L, Hgb 10.3 L, Hct 32.9 L, MCV 100.0 H, MCH 31.3, MCHC 31.3 L D, RDW Std Deviation 53.3 H, RDW Coeff of [place] 14.4, Plt Count 199, MPV 9.9, Immature Gran % (Auto) 0.500, Neut % (Auto) 62.1, Lymph % (Auto) 22.5, [place] % (Auto) 10.1 H, Eos % (Auto) 4.5, Baso % (Auto) 0.3, Absolute Neuts (auto) 5.8, Absolute Lymphs (auto) 2.11, Nucleated RBC % 0 09/06/23 06:42: WBC 7.7, RBC 3.36 L, Hgb 10.5 L, Hct 34.2 L, MCV 101.8 H, MCH 31.3, MCHC 30.7 L, RDW Std Deviation 53.5 H, RDW Coeff of [place]ur[place] 14.4, Plt Count 203, MPV 9.5, Immature Gran % (Auto) 0.400, Neut % (Auto) 52.9, Lymph % (Auto) 29.1, [place] % (Auto) 10.4 H, Eos % (Auto) 6.4 H, Baso % (Auto) 0.8, Absolute Neuts (auto) 4.1, Absolute Lymphs (auto) 2.24, Nucleated RBC % 0, Sodium 142, Potassium 4.8, Chloride 110 H, Carbon Dioxide 30.0, Anion Gap 2 L, BUN 24 H, Creatinine 1.19 H, Estim Creat Clear Calc 48.57, Est GFR (MDRD) Af Amer 58 L, Est GFR (MDRD) Non-Af 48 L, BUN/Creatinine Ratio 20.2 H, Glucose 90, Calcium 9.5 Micro: Microbiology 09/04/23 03:54 Urine Catheter - Catheter Legionella Antigen - Final 09/04/23 03:54 Urine Catheter - Catheter Streptococcus pneumoniae Antigen (M - Final Rhythm Strip Rhythm Strip: Sinus Tach Rate: 109 Ectopy: None Physical Exam Narrative GENERAL: cooperative HEENT: Atraumatic; normocephalic EYES; Anicteric, Normal Conjunctiva NECK; supple, normal thyroid, RESPIRATORY: Diminished to auscultation CARDIOVASCULAR: Regular S1 S2, GI: soft, normoactive bowel sounds, : No Renal angle tenderness; EXTREMITIES: No edema, no clubbing, MUSCULOSKELETAL: no muscle wasting NEURO: Awake; no lateralizing signs. SKIN: No Rash PSYCH; Flat affect Assessment & Plan Assessment/Plan (1) Aspiration pneumonia: PLAN: Concerning. Will continue with ceftriaxone but also add azithromycin. Continue bronchodilators. Check urinary antigens for Streptococcus and Legionella. Will have speech therapy evaluate her. Patient will be on a pur?ed diet for now. (2) Weakness: PLAN: Plan Patient is a 68-year-old lady with history of multiple sclerosis with significant debility brought to the emergency department by her with generalized weakness and assessment of pneumonia made admitted to a monitored bed for subsequent management 1. Pneumonia ? Suspected to be secondary to aspiration pneumonia x-ray demonstrated left lower lobe infiltrate patient started on azithromycin as well as Rocephin 2. Recent cystitis with Serratia ? Patient on appropriate antibiotic therapy 3. Chronic kidney disease stage IIIa ? Creatinine on admission was 1.35, managed with IV fluids creatinine down to 1.21 4. Multiple sclerosis ? With significant debility including PEG tube as well as suprapubic catheter placement 5. GERD as well as history of gastric erosions ? Patient is on PPI 6. Chronic constipation -On lactulose nightly as well as MiraLAX and Metamucil 7. DVT prophylaxis ? SC Lovenox Time spent in the patient's overall evaluation,decision-making process, review of diagnostic data, adjustment of management, discussion with other providers, nursing nursing and ancillary staff involved in patient's care documentation, 50 minutes Charges/Coding Visit Charges Inpatient E&M: 27755 [facility] L3
[2023-09-06] MEDS: 0.9% Normal Saline (1000mL) 1,000 ML 50 ML IV (10:54)
[2023-09-06] MEDS: Jevity 1.5. 1,000 ML Bottle 250 ML GT ×3 (11:04→22:10)
[2023-09-06] MEDS: Ascorbic Acid 500 MG Tablet 1000 MG PO (11:04)
[2023-09-06] MEDS: Multivitamins,Ther W-Minerals Tablet 1 TABLET PO (11:04)
[2023-09-06] MEDS: Vitamin B Comp W-C Capsule 1 CAP PO (11:04)
[2023-09-06] MEDS: Loratadine 10 MG Tablet PO (11:05)
[2023-09-06] MEDS: Iron Polysaccharide Complex 150 MG CAPSULE PO (11:05)
[2023-09-06] MEDS: Psyllium 1 PACKET GT (11:06)
[2023-09-06] MEDS: Polyethylene Glycol 3350 17 GM PACKET GT (11:06)
[2023-09-06] MEDS: Pantoprazole Sodium 40 MG Tablet PO ×2 (11:06→22:03)
[2023-09-06] MEDS: guaiFENesin 1,200 MG Tablet 1200 MG PO ×2 (11:06→22:04)
[2023-09-06] MEDS: Cinacalcet HCl 30 MG Tablet PO (11:07)
[2023-09-06] MEDS: Azithromycin 500 MG in Dextrose 5%-Water (250mL Bag) 250 ML 250 MG IV (11:07)
[2023-09-06] MEDS: 0.9% Saline Lock 10 ML Syringe IV (12:16)
[2023-09-06] MEDS: Ondansetron 4 MG/2 ML Vial IV (12:16)
--- NOTE | 2023-09-06 14:36 | CASEMGMT ---
Patient was accepted by [facility] with Wednesday start of care. SHARLENE LATHAM updated . had no further questions or concerns.
[2023-09-06] MEDS: 0.9 % NaCl (Sterile) Posiflush 10 mL IV (14:37)
[2023-09-06] MEDS: proCHLORPERazine 10 MG/2 ML Vial 5 MG IV (14:37)
--- NOTE | 2023-09-06 16:24 | CHAPLAIN ---
Type of Pastoral Visit _x__ Initial Visit ___ Follow-up Visit ___ On-call Visit ___ General Patient Visit ___ Spiritual Assessment ___ Family Conference ___ Bereavement ___ Rapid Response ___ Code Blue ___ Other (describe below) Pastoral Care Referral From _x__ Patient _x__ Family ___ Nurse ___ Physician ___ Novelty Printing Machine Operator ___ Blacktop Spreader ___ Other (describe below) Sacrament/Intervention _x__ Active listening ___ Anointing ___ Nondenominational ___ Bereavement ___ Communion ___ Justine exploration ___ _x__ Life review _x__ Prayer ___ Reconciliation ___ Sacrament of Sick _x__ Supportive presence ___ Wedding ___ Other (describe below) Pastoral Comments spouse always welcomes this senior training and development rep and the spiritual care offered at this hospital; pt is unable to engage in conversation but is involved in listening and can nod or mouth her words slowly to give answers; pt is welcoming and indicates willingness for support and prayer; spouse does much in giving updates and what is current in their lives; both are expressive of gratitude for hospital staff, and care given
[2023-09-06] MEDS: Ensure Plus High Protein 120 ML LIQUID 250 ML PO (17:18)
[2023-09-06] MEDS: Lactulose 20 GM/30 ML UDC 40 GM PO (22:03)
[2023-09-06] MEDS: Magnesium Chloride 64 MG Delay Rel.Tablet 128 MG PO (22:04)
[2023-09-06] MEDS: Mirtazapine 30 MG Tablet 45 MG PO (22:04)
[2023-09-06] MEDS: MELATONIN 10 MG TABLET PO (22:04)
[2023-09-06] MEDS: Ceftriaxone 2 GM in 0.9% Normal Saline (50mL MB+) 50 ML IV (22:27)
[2023-09-07] VITALS (12 sets, daily range): BP systolic 122–135; BP diastolic 62–82; PULSE 78–96; RESP 14–20; TEMP 36.8–37.2; O2SAT 87–96
[2023-09-07] MEDS: Baclofen 10 MG Tablet 20 MG PO ×3 (05:24→21:30)
[2023-09-07] MEDS: 0.9% Normal Saline (1000mL) 1,000 ML 50 ML IV (05:26)
[2023-09-07] MEDS: Ipratropium/Albuterol Sulfate 3 ML AMPUL.NEB INHALATION ×5 (07:28→22:46)
[2023-09-07 07:39] LABS: Absolute Lymphocyte Count 1.59 X10^3/uL (0.83-4.51); Absolute Neutrophil Count 5.4 X10^3/uL (2.0-7.7); Basophil# 0.06 X10^3/uL; Basophil% 0.7 % (0-1); Eosinophil# 0.52 X10^3/uL; Eosinophils% 6.3 % (0-5); Hematocrit 34.6 % (37-47); Hemoglobin 10.8 g/dL (12.0-15.0); Lymphocyte # 1.59 X10^3/ul (0.83-4.51); Lymphocyte % 19.3 % (19-41); Mean Corp Hgb Conc 31.2 g/dL (32-36); Mean Corpuscular Hgb 31.7 pg (27.0-32.0); Mean Corpuscular Volume 101.5 fL (81-99); Mean Platelet Vol. 9.3 fl (6.2-12.0); Monocyte# 0.64 X10^3/uL; Monocyte% 7.8 % (0-10); NRBC Flagged by Analyzer 0 % (0-5); Neutrophil # 5.37 X10^3/uL (2.7-7.7); Neutrophil % 65.4 % (47-70); Platelet Count 217 K/mm3 (150-450); RBC Distribution Width CV 14.1 % (11.6-14.6); RBC Distribution Width SD 52.8 fl (35.1-43.9); Red Blood Count 3.41 M/mm3 (4.2-5.4); White Blood Count 8.2 K/mm3 (4.4-11.0)
[2023-09-07 08:07] LABS: Anion Gap 1 (5-15); BUN 23 mg/dL (7-18); BUN/Creat Ratio 20.4 RATIO (10-20); Calcium,Total 9.1 mg/dL (8.5-10.1); Chloride 108 mmol/L (98-107); Creatinine, Serum 1.13 mg/dL (0.55-1.02); EST Glomerular Filtration Rate 51 mL/min (>60); Est Glom Filt Rate - Afr Amer 62 mL/min (>60); Estimated Creatinine Clearance 51.15 ml/min; Glucose 90 mg/dL (74-106); Potassium 4.5 mmol/L (3.5-5.1); Sodium Level 139 mmol/L (136-145)
--- NOTE | 2023-09-07 08:08 | PN.HOSP_ITS ---
Reason for Visit Reason for Visit: Diagnoses Pneumonitis due to inhalation of food and vomit (09/04/23) Hypoxemia (09/04/23) Weakness (09/04/23) Subjective Subjective Patient seen appears clinically stable. Patient has ceramide not been able to t olerate fluid via PEG tube. Patient's requested consultation with GI which was placed the day prior. Objective Data Objective Data Vital Signs: Vital Signs Temp Pulse Resp BP Pulse Ox O2 Del Method O2 Flow Rate 98.4 F 88 16 122/62 H 96 Nasal Cannula 2 09/07/23 07:37 09/07/23 07:37 09/07/23 07:37 09/07/23 07:37 09/07/23 07:55 09/07/23 07:55 09/07/23 07:55 Oxygen Flow Rate (L/min) 2 Oxygen Delivery Method Nasal Cannula Weight: 68 kg Body Mass Index (BMI) 21.4 Intake & Output: Intake and Output for Last 24 Hours 09/05/23 09/06/23 09/07/23 23:59 23:59 23:59 Intake Total 2565.00 / 2565.00 1855 / 1855 976.67 / 976.67 Output Total 1175 / 1175 2250 / 2250 875 / 875 Balance 1390.00 / 1390.00 -395 / -395 101.67 / 101.67 Lab / Micro Data 09/07/23 07:15 09/07/23 07:15 Labs: Laboratory Results - last 24 hr 09/07/23 07:15: WBC 8.2, RBC 3.41 L, Hgb 10.8 L, Hct 34.6 L, MCV 101.5 H, MCH 31.7, MCHC 31.2 L, RDW Std Deviation 52.8 H, RDW Coeff of Niurka 14.1, Plt Count 217, MPV 9.3, Immature Gran % (Auto) 0.500, Neut % (Auto) 65.4, Lymph % (Auto) 19.3, [place] % (Auto) 7.8, Eos % (Auto) 6.3 H, Baso % (Auto) 0.7, Absolute Neuts (auto) 5.4, Absolute Lymphs (auto) 1.59, Nucleated RBC % 0, Sodium 139, Potassium 4.5, Chloride 108 H, Carbon Dioxide 30.0, Anion Gap 1 L, BUN 23 H, Creatinine 1.13 H, Estim Creat Clear Calc 51.15, Est GFR (MDRD) Af Amer 62, Est GFR (MDRD) Non-Af 51 L, BUN/Creatinine Ratio 20.4 H, Glucose 90, Calcium 9.1 Micro: Microbiology 09/04/23 01:20 Blood Culture (Wb) - Port Blood Culture - Preliminary No growth in 48 hours. 09/03/23 00:55 Blood Culture (Wb) - Port Blood Culture - Preliminary No growth in 48 hours. 09/04/23 03:54 Urine Catheter - Catheter Legionella Antigen - Final 09/04/23 03:54 Urine Catheter - Catheter Streptococcus pneumoniae Antigen (M - Final Rhythm Strip Rhythm Strip: Sinus Tach Rate: 109 Ectopy: None Physical Exam Narrative GENERAL: cooperative HEENT: Atraumatic; normocephalic EYES; Anicteric, Normal Conjunctiva NECK; supple, normal thyroid, RESPIRATORY: Diminished to auscultation CARDIOVASCULAR: Regular S1 S2, GI: soft, normoactive bowel sounds, : No Renal angle tenderness; EXTREMITIES: No edema, no clubbing, MUSCULOSKELETAL: no muscle wasting NEURO: Awake; no lateralizing signs. SKIN: No Rash PSYCH; Flat affect Assessment & Plan Assessment/Plan (1) Aspiration pneumonia: (2) Weakness: PLAN: Plan Patient is a 68-year-old lady with history of multiple sclerosis with significant debility brought to the emergency department by her with generalized weakness and assessment of pneumonia made admitted to a monitored bed for subsequent management 1. Pneumonia ? Suspected to be secondary to aspiration pneumonia x-ray demonstrated left lower lobe infiltrate patient started on azithromycin as well as Rocephin ? 09/07/2023 patient remains on antibiotic therapy. 2. Recent cystitis with Serratia ? Patient on appropriate antibiotic therapy 3. Chronic kidney disease stage IIIa ? Creatinine on admission was 1.35, managed with IV fluids creatinine down to 1.21 4. Multiple sclerosis ? With significant debility including PEG tube as well as suprapubic catheter placement 5. GERD as well as history of gastric erosions ? Patient is on PPI 6. Chronic constipation -On lactulose nightly as well as MiraLAX and Metamucil 7. DVT prophylaxis ? [place] Lovenox Time spent in the patient's overall evaluation,decision-making process, review of diagnostic data, adjustment of management, discussion with other providers, nursing nursing and ancillary staff involved in patient's care documentation, 35 minutes Charges/Coding Visit Charges Inpatient E&M: 19180 Subs Hosp L3
[2023-09-07] MEDS: Vitamin B Comp W-C Capsule 1 CAP PO (08:56)
[2023-09-07] MEDS: Ascorbic Acid 500 MG Tablet 1000 MG PO (08:57)
[2023-09-07] MEDS: Multivitamins,Ther W-Minerals Tablet 1 TABLET PO (08:57)
[2023-09-07] MEDS: Polyethylene Glycol 3350 17 GM PACKET GT ×2 (08:58→08:59)
[2023-09-07] MEDS: guaiFENesin 1,200 MG Tablet 1200 MG PO ×2 (08:58→21:30)
[2023-09-07] MEDS: Iron Polysaccharide Complex 150 MG CAPSULE PO (08:59)
[2023-09-07] MEDS: Pantoprazole Sodium 40 MG Tablet PO ×2 (09:00→21:30)
[2023-09-07] MEDS: Cinacalcet HCl 30 MG Tablet PO (09:00)
[2023-09-07] MEDS: Psyllium 1 PACKET GT (09:01)
[2023-09-07] MEDS: Loratadine 10 MG Tablet PO (09:01)
[2023-09-07] MEDS: Azithromycin 500 MG in Dextrose 5%-Water (250mL Bag) 250 ML 250 MG IV (10:02)
[2023-09-07] MEDS: Ergocalciferol 1.25 MG (50, 000 UNIT) Capsule PO (10:02)
[2023-09-07] MEDS: Ondansetron 4 MG/2 ML Vial IV (11:05)
[2023-09-07] MEDS: 0.9 % NaCl (Sterile) Posiflush 10 mL IV ×2 (11:06→12:08)
[2023-09-07] MEDS: proCHLORPERazine 10 MG/2 ML Vial 5 MG IV (12:06)
[2023-09-07] MEDS: Jevity 1.5. 1,000 ML Bottle 250 ML GT ×2 (15:00→21:31)
[2023-09-07] MEDS: Ceftriaxone 2 GM in 0.9% Normal Saline (50mL MB+) 50 ML IV (21:27)
[2023-09-07] MEDS: MELATONIN 10 MG TABLET PO (21:30)
[2023-09-07] MEDS: Magnesium Chloride 64 MG Delay Rel.Tablet 128 MG PO (21:30)
[2023-09-07] MEDS: Mirtazapine 30 MG Tablet 45 MG PO (21:30)
[2023-09-07] MEDS: Lactulose 20 GM/30 ML UDC 40 GM PO (21:30)
[2023-09-08] VITALS (9 sets, daily range): BP systolic 119–127; BP diastolic 68–83; PULSE 82–94; RESP 14–20; TEMP 36.4–37.1; O2SAT 88–96
[2023-09-08] MEDS: Ipratropium/Albuterol Sulfate 3 ML AMPUL.NEB INHALATION ×4 (03:00→21:03)
[2023-09-08] MEDS: 0.9% Normal Saline (1000mL) 1,000 ML 50 ML IV (03:08)
[2023-09-08] MEDS: Baclofen 10 MG Tablet 20 MG PO ×3 (05:23→22:05)
--- NOTE | 2023-09-08 08:07 | PN.HOSP_ITS ---
Reason for Visit Reason for Visit: Diagnoses Pneumonitis due to inhalation of food and vomit (09/04/23) Hypoxemia (09/04/23) Weakness (09/04/23) Subjective Subjective Patient seen, appears comfortable at rest. Diagnostic data reviewed CBC creatin ine BUN stable. Patient request discontinuation of IV fluids and for patient to tolerate 3 L of fluid through meals and PEG tube prior to taking patient back home Objective Data Objective Data Vital Signs: Vital Signs Temp Pulse Resp BP Pulse Ox O2 Del Method O2 Flow Rate 97.6 F L 89 18 127/81 H 93 Nasal Cannula 2 09/08/23 03:03 09/08/23 03:03 09/08/23 03:03 09/08/23 03:03 09/08/23 03:03 09/08/23 03:08 09/08/23 03:08 Oxygen Flow Rate (L/min) 2 Oxygen Delivery Method Nasal Cannula Weight: 68 kg Body Mass Index (BMI) 21.4 Intake & Output: Intake and Output for Last 24 Hours 09/06/23 09/07/23 09/08/23 23:59 23:59 23:59 Intake Total 1855 / 1855 1711.67 / 1711.67 1000 / 1000 Output Total 2250 / 2250 2325 / 2325 350 / 350 Balance -395 / -395 -613.33 / -613.33 650 / 650 Lab / Micro Data 09/08/23 08:18 09/08/23 08:18 Labs: Laboratory Results - last 24 hr 09/07/23 07:15: Sodium 139, Potassium 4.5, Chloride 108 H, Carbon Dioxide 30.0, Anion Gap 1 L, BUN 23 H, Creatinine 1.13 H, Estim Creat Clear Calc 51.15, Est GFR (MDRD) Af Amer 62, Est GFR (MDRD) Non-Af 51 L, BUN/Creatinine Ratio 20.4 H, Glucose 90, Calcium 9.1 Micro: Microbiology 09/04/23 01:20 Blood Culture (Wb) - Port Blood Culture - Preliminary No growth in 48 hours. 09/03/23 00:55 Blood Culture (Wb) - Port Blood Culture - Preliminary No growth in 48 hours. 09/04/23 03:54 Urine Catheter - Catheter Legionella Antigen - Final 09/04/23 03:54 Urine Catheter - Catheter Streptococcus pneumoniae Antigen (M - Final Rhythm Strip Rhythm Strip: Sinus Tach Rate: 109 Ectopy: None Physical Exam Narrative GENERAL: Patient in no apparent distress HEENT: Atraumatic; normocephalic EYES; Anicteric, Normal Conjunctiva NECK; supple, normal thyroid, RESPIRATORY: Diminished to auscultation CARDIOVASCULAR: Regular S1 S2, GI: soft, normoactive bowel sounds, : No Renal angle tenderness; EXTREMITIES: No edema, no clubbing, MUSCULOSKELETAL: no muscle wasting NEURO: Awake; no lateralizing signs. SKIN: No Rash PSYCH; Flat affect Assessment & Plan Assessment/Plan (1) Aspiration pneumonia: (2) Weakness: PLAN: Plan Patient is a 68-year-old lady with history of multiple sclerosis with significant debility brought to the emergency department by her with ge neralized weakness and assessment of pneumonia made admitted to a monitored bed for subsequent management 1. Pneumonia ? Suspected to be secondary to aspiration pneumonia x-ray demonstrated left low er lobe infiltrate patient started on azithromycin as well as Rocephin ? 09/07/2023 patient remains on antibiotic therapy. ? 09/08/2023 patient remains stable. 2. Recent cystitis with Serratia ? Patient on appropriate antibiotic therapy 3. Chronic kidney disease stage IIIa ? Creatinine on admission was 1.35, managed with IV fluids creatinine down to 1.21 ? 09/08/2023 patient kidney function at baseline 4. Multiple sclerosis ? With significant debility including PEG tube as well as suprapubic catheter placement 5. GERD as well as history of gastric erosions ? Patient is on PPI 6. Chronic constipation -On lactulose nightly as well as MiraLAX and Metamucil 7. DVT prophylaxis ? SC Lovenox Time spent in the patient's overall evaluation,decision-making process, review of diagnostic data, adjustment of management, discussion with other providers, nursing nursing and ancillary staff involved in patient's care documentation, 35 minutes Charges/Coding Visit Charges Inpatient E&M: 12614 Subs Hosp L2
[2023-09-08 08:46] LABS: Absolute Lymphocyte Count 2.08 X10^3/uL (0.83-4.51); Absolute Neutrophil Count 4.7 X10^3/uL (2.0-7.7); Basophil# 0.04 X10^3/uL; Basophil% 0.5 % (0-1); Eosinophil# 0.39 X10^3/uL; Eosinophils% 4.9 % (0-5); Hematocrit 35.3 % (37-47); Hemoglobin 10.9 g/dL (12.0-15.0); Lymphocyte # 2.08 X10^3/ul (0.83-4.51); Lymphocyte % 26.3 % (19-41); Mean Corp Hgb Conc 30.9 g/dL (32-36); Mean Corpuscular Hgb 31.2 pg (27.0-32.0); Mean Corpuscular Volume 101.1 fL (81-99); Mean Platelet Vol. 9.3 fl (6.2-12.0); Monocyte# 0.72 X10^3/uL; Monocyte% 9.1 % (0-10); NRBC Flagged by Analyzer 0 % (0-5); Neutrophil # 4.65 X10^3/uL (2.7-7.7); Neutrophil % 58.8 % (47-70); Platelet Count 227 K/mm3 (150-450); RBC Distribution Width CV 14.2 % (11.6-14.6); Red Blood Count 3.49 M/mm3 (4.2-5.4); White Blood Count 7.9 K/mm3 (4.4-11.0)
[2023-09-08] MEDS: Vitamin B Comp W-C Capsule 1 CAP PO (09:00)
[2023-09-08] MEDS: Ascorbic Acid 500 MG Tablet 1000 MG PO (09:00)
[2023-09-08] MEDS: Multivitamins,Ther W-Minerals Tablet 1 TABLET PO (09:01)
[2023-09-08] MEDS: Loratadine 10 MG Tablet PO (09:01)
[2023-09-08] MEDS: Psyllium 1 PACKET GT (09:03)
[2023-09-08] MEDS: Iron Polysaccharide Complex 150 MG CAPSULE PO (09:03)
[2023-09-08] MEDS: Pantoprazole Sodium 40 MG Tablet PO ×2 (09:03→22:04)
[2023-09-08] MEDS: guaiFENesin 1,200 MG Tablet 1200 MG PO ×2 (09:03→22:05)
[2023-09-08] MEDS: Polyethylene Glycol 3350 17 GM PACKET GT (09:04)
[2023-09-08 09:16] LABS: Anion Gap 5 (5-15); BUN 20 mg/dL (7-18); BUN/Creat Ratio 16.9 RATIO (10-20); Chloride 108 mmol/L (98-107); Creatinine, Serum 1.18 mg/dL (0.55-1.02); EST Glomerular Filtration Rate 48 mL/min (>60); Est Glom Filt Rate - Afr Amer 59 mL/min (>60); Estimated Creatinine Clearance 48.98 ml/min; Glucose 91 mg/dL (74-106); Potassium 4.4 mmol/L (3.5-5.1); Sodium Level 140 mmol/L (136-145)
[2023-09-08] MEDS: Acetaminophen 500 MG Tablet 1000 MG PO (10:47)
[2023-09-08] MEDS: Azithromycin 500 MG in Dextrose 5%-Water (250mL Bag) 250 ML 250 MG IV (10:47)
[2023-09-08] MEDS: Jevity 1.5. 1,000 ML Bottle 250 ML GT ×3 (13:14→22:27)
[2023-09-08] MEDS: Ceftriaxone 2 GM in 0.9% Normal Saline (50mL MB+) 50 ML IV (22:04)
[2023-09-08] MEDS: Lactulose 20 GM/30 ML UDC 40 GM PO (22:04)
[2023-09-08] MEDS: MELATONIN 10 MG TABLET PO (22:04)
[2023-09-08] MEDS: Magnesium Chloride 64 MG Delay Rel.Tablet 128 MG PO (22:05)
[2023-09-08] MEDS: Mirtazapine 30 MG Tablet 45 MG PO (22:05)
[2023-09-08] MEDS: 0.9 % NaCl (Sterile) Posiflush 10 mL IV (22:18)
[2023-09-09 04:02] VITALS: O2SAT 94
[2023-09-09 04:10] VITALS: BP 128/72; PULSE 88; RESP 20; TEMP 37.2; O2SAT 94
[2023-09-09 06:27] LABS: Absolute Lymphocyte Count 1.92 X10^3/uL (0.83-4.51); Absolute Neutrophil Count 4.2 X10^3/uL (2.0-7.7); Basophil# 0.05 X10^3/uL; Basophil% 0.7 % (0-1); Eosinophils% 5.3 % (0-5); Hematocrit 33.5 % (37-47); Hemoglobin 10.3 g/dL (12.0-15.0); Lymphocyte # 1.92 X10^3/ul (0.83-4.51); Lymphocyte % 25.7 % (19-41); Mean Corp Hgb Conc 30.7 g/dL (32-36); Mean Corpuscular Hgb 30.9 pg (27.0-32.0); Mean Corpuscular Volume 100.6 fL (81-99); Mean Platelet Vol. 9.5 fl (6.2-12.0); Monocyte# 0.84 X10^3/uL; Monocyte% 11.2 % (0-10); NRBC Flagged by Analyzer 0 % (0-5); Neutrophil # 4.24 X10^3/uL (2.7-7.7); Neutrophil % 56.7 % (47-70); Platelet Count 226 K/mm3 (150-450); RBC Distribution Width SD 51.4 fl (35.1-43.9); Red Blood Count 3.33 M/mm3 (4.2-5.4); White Blood Count 7.5 K/mm3 (4.4-11.0)
[2023-09-09] MEDS: Baclofen 10 MG Tablet 20 MG PO ×2 (06:33→14:18)
[2023-09-09 07:09] LABS: Anion Gap 3 (5-15); BUN 24 mg/dL (7-18); BUN/Creat Ratio 21.1 RATIO (10-20); Calcium,Total 9.3 mg/dL (8.5-10.1); Chloride 107 mmol/L (98-107); Creatinine, Serum 1.14 mg/dL (0.55-1.02); EST Glomerular Filtration Rate 50 mL/min (>60); Est Glom Filt Rate - Afr Amer 61 mL/min (>60); Glucose 85 mg/dL (74-106); Potassium 4.3 mmol/L (3.5-5.1); Sodium Level 141 mmol/L (136-145)
[2023-09-09 07:26] VITALS: PULSE 84; RESP 16; O2SAT 95
[2023-09-09] MEDS: Ipratropium/Albuterol Sulfate 3 ML AMPUL.NEB INHALATION ×2 (07:26→11:00)
[2023-09-09 08:53] VITALS: BP 131/76; PULSE 90; RESP 16; TEMP 36.8; O2SAT 93
[2023-09-09 08:54] VITALS: BP 131/76; PULSE 91; RESP 16; TEMP 36.8; O2SAT 93
[2023-09-09] MEDS: Psyllium 1 PACKET GT (08:58)
[2023-09-09] MEDS: Polyethylene Glycol 3350 17 GM PACKET GT (08:58)
[2023-09-09] MEDS: Iron Polysaccharide Complex 150 MG CAPSULE PO (08:59)
[2023-09-09] MEDS: Multivitamins,Ther W-Minerals Tablet 1 TABLET PO (08:59)
[2023-09-09] MEDS: guaiFENesin 1,200 MG Tablet 1200 MG PO (08:59)
[2023-09-09] MEDS: Ascorbic Acid 500 MG Tablet 1000 MG PO (08:59)
[2023-09-09] MEDS: Loratadine 10 MG Tablet PO (08:59)
[2023-09-09] MEDS: Jevity 1.5. 1,000 ML Bottle 250 ML GT ×2 (09:00→12:36)
[2023-09-09] MEDS: Pantoprazole Sodium 40 MG Tablet PO (09:00)
[2023-09-09] MEDS: Vitamin B Comp W-C Capsule 1 CAP PO (09:00)
[2023-09-09] MEDS: Azithromycin 500 MG in Dextrose 5%-Water (250mL Bag) 250 ML 250 MG IV (10:58)
[2023-09-09 11:01] VITALS: PULSE 84; RESP 17
--- NOTE | 2023-09-09 11:59 | PN.HOSP_ITS ---
Reason for Visit Reason for Visit: Diagnoses Pneumonitis due to inhalation of food and vomit (09/04/23) Hypoxemia (09/04/23) Weakness (09/04/23) Subjective Subjective Patient seen patient to be assessed for possible discharge Objective Data Objective Data Vital Signs: Vital Signs Temp Pulse Resp BP Pulse Ox O2 Del Method O2 Flow Rate 98.3 F 84 17 131/76 H 93 Nasal Cannula 2 09/09/23 08:54 09/09/23 11:01 09/09/23 11:01 09/09/23 08:54 09/09/23 08:54 09/09/23 08:54 09/09/23 08:54 Oxygen Flow Rate (L/min) 2 Oxygen Delivery Method Nasal Cannula Weight: 68 kg Body Mass Index (BMI) 21.4 Intake & Output: Intake and Output for Last 24 Hours 09/07/23 09/08/23 09/09/23 23:59 23:59 23:59 Intake Total 1711.67 / 1711.67 3649.17 / 4299.17 850 / 850 Output Total 2325 / 2325 2275 / 3325 1700 / 1700 Balance -613.33 / -613.33 1374.17 / 974.17 -850 / -850 Lab / Micro Data 09/09/23 05:40 09/09/23 05:40 Labs: Laboratory Results - last 24 hr 09/09/23 05:40: WBC 7.5, RBC 3.33 L, Hgb 10.3 L, Hct 33.5 L, MCV 100.6 H, MCH 30.9, MCHC 30.7 L, RDW Std Deviation 51.4 H, RDW Coeff of Niurka 14.0, Plt Count 226, MPV 9.5, Immature Gran % (Auto) 0.400, Neut % (Auto) 56.7, Lymph % (Auto) 25.7, [place] % (Auto) 11.2 H, Eos % (Auto) 5.3 H, Baso % (Auto) 0.7, Absolute Neuts (auto) 4.2, Absolute Lymphs (auto) 1.92, Nucleated RBC % 0, Sodium 141, Potassium 4.3, Chloride 107, Carbon Dioxide 31.0, Anion Gap 3 L, BUN 24 H, Creatinine 1.14 H, Estim Creat Clear Calc 50.70, Est GFR (MDRD) Af Amer 61, Est GFR (MDRD) Non-Af 50 L, BUN/Creatinine Ratio 21.1 H, Glucose 85, Calcium 9.3 Micro: Microbiology 09/04/23 01:20 Blood Culture (Wb) - Port Blood Culture - Final No growth in 5 days. 09/03/23 00:55 Blood Culture (Wb) - Port Blood Culture - Final No growth in 5 days. 09/04/23 03:54 Urine Catheter - Catheter Legionella Antigen - Final 09/04/23 03:54 Urine Catheter - Catheter Streptococcus pneumoniae Antigen (M - Final Rhythm Strip Rhythm Strip: Sinus Tach Rate: 109 Ectopy: None Physical Exam Narrative GENERAL: Patient in no apparent distress HEENT: Atraumatic; normocephalic EYES; Anicteric, Normal Conjunctiva NECK; supple, normal thyroid, RESPIRATORY: Diminished to auscultation CARDIOVASCULAR: Regular S1 S2, GI: soft, normoactive bowel sounds, : No Renal angle tenderness; EXTREMITIES: No edema, no clubbing, MUSCULOSKELETAL: no muscle wasting NEURO: Awake; no lateralizing signs. SKIN: No Rash PSYCH; Flat affect Assessment & Plan Assessment/Plan (1) Aspiration pneumonia: (2) Weakness: PLAN: Plan Patient is a 68-year-old lady with history of multiple sclerosis with significant debility brought to the emergency department by her with generalized weakness and assessment of pneumonia made admitted to a [facility] ed for subsequent management 1. Pneumonia ? Suspected to be secondary to aspiration pneumonia x-ray demonstrated left lower lobe infiltrate patient started on azithromycin as well as Rocephin ? 09/07/2023 patient remains on antibiotic therapy. ? 09/08/2023 patient remains stable. 2. Recent cystitis with Serratia ? Patient on appropriate antibiotic therapy 3. Chronic kidney disease stage IIIa ? Creatinine on admission was 1.35, managed with IV fluids creatinine down to 1.21 ? 09/08/2023 patient kidney function at baseline 4. Multiple sclerosis ? With significant debility including PEG tube as well as suprapubic catheter placement 5. GERD as well as history of gastric erosions ? Patient is on PPI 6. Chronic constipation -On lactulose nightly as well as MiraLAX and Metamucil 7. DVT prophylaxis ? SC Lovenox Time spent in the patient's overall evaluation,decision-making process, review of diagnostic data, adjustment of management, discussion with other providers, nursing nursing and ancillary staff involved in patient's care documentation, 35 minutes Charges/Coding Visit Charges Inpatient E&M: 64661 Subs Hosp L2
--- NOTE | 2023-09-09 12:06 | CHAPLAIN ---
Type of Pastoral Visit ___ Initial Visit _x__ Follow-up Visit ___ On-call Visit ___ General Patient Visit ___ Spiritual Assessment ___ Family Conference ___ Bereavement ___ Rapid Response ___ Code Blue ___ Other (describe below) Pastoral Care Referral From ___ Patient _x__ Family ___ Nurse ___ Physician ___ Shine Worker ___ Field Marketing Manager ___ Other (describe below) Sacrament/Intervention _x__ Active listening ___ Anointing ___ Sabianism ___ Bereavement ___ Communion ___ Justine exploration ___ ___ Life review ___ Prayer ___ Reconciliation ___ Sacrament of Sick ___ Supportive presence ___ Wedding ___ Other (describe below) Pastoral Comments patient is being assisted to eat lunch by RN CARDIOLOGY and spouse is also eating; offer of support; pt may be discharged today and things have been improving for her; spouse is satisfied with the progress and plan to go home; spouse indicates that the visit for support is much appreciated
--- NOTE | 2023-09-09 12:08 | PCM.DC.SUM ---
Providers Date of Admission: 09/04/23 Date of Discharge: 09/09/23 Primary Care Physician: Dr. Alexandria Carranza MD Consultations 09/06/23 15:10 Consult: Gastroenterology Routine Consulting Provider: [facility] Reason for Consult: Abnormal Bowel Movements EMERGENT Consult: No Notified: Yes Date Notified: 09/06/23 Time Notified: 15:11 Method of Notification: Text Reason For Visit: PNEUMONIA Diagnosis Discharge Diagnosis (1) Aspiration pneumonia: Status: Acute Code(s): J69.0 - Pneumonitis due to inhalation of food and vomit (2) Weakness: Status: Acute Code(s): R53.1 - Weakness Plan Patient is a 68-year-old lady with history of multiple sclerosis with significant debility brought to the emergency department by her with generalized weakness and assessment of pneumonia made admitted to a monitored bed for subsequent management 1. Pneumonia ? Suspected to be secondary to aspiration pneumonia x-ray demonstrated left lower lobe infiltrate patient started on azithromycin as well as Rocephin ? 09/07/2023 patient remains on antibiotic therapy. ? 09/08/2023 patient remains stable. 2. Recent cystitis with Serratia ? Patient on appropriate antibiotic therapy 3. Chronic kidney disease stage IIIa ? Creatinine on admission was 1.35, managed with IV fluids creatinine down to 1.21 ? 09/08/2023 patient kidney function at baseline 4. Multiple sclerosis ? With significant debility including PEG tube as well as suprapubic catheter placement 5. GERD as well as history of gastric erosions ? Patient is on PPI 6. Chronic constipation -On lactulose nightly as well as MiraLAX and Metamucil 7. DVT prophylaxis ? SC Lovenox Time spent in the patient's overall evaluation,decision-making process, review of diagnostic data, adjustment of management, discussion with other providers, nursing nursing and ancillary staff involved in patient's care documentation, 35 minutes Medications at Discharge Home Medications acetaminophen 500 mg tablet 1,000 mg PO Q6H PRN Pain 02/15/19 magnesium oxide 400 mg (241.3 mg magnesium) tablet 400 mg PO QHS magnesium supplement 05/23/19 polysaccharide iron complex 150 mg iron capsule 150 mg PO DAILY iron replacement 05/23/19 krill 1,000 mg-omega-3 170 mg-dha 50 mg-epa 80 fy-uuiimw-dhzkn capsule (krill oil) 500 cap PO DAILY supplement 11/15/20 vitamin B complex-folic acid 0.4 mg tablet (B Complex 1 (with folic acid)) 1 tab PO DAILY vitamin 11/15/20 cholecalciferol (vitamin D3) 1,250 mcg (50,000 unit) capsule 50,000 unit PO QMONTH vitamin 08/15/21 cinacalcet 30 mg tablet 30 mg PO QODAY hyperparathyroidism 11/24/21 fexofenadine 180 mg tablet 180 mg PO DAILY ALLERGIES 07/22/22 ondansetron 4 mg disintegrating tablet 4 mg PO Q8H PRN nausea and vomiting #10 tabs 07/22/22 ascorbic acid (vitamin C) 1,000 mg tablet,extended release (Vitamin C ER) 1,000 mg PO BREAKFAST SUPPLEMENT 07/23/22 baclofen 20 mg tablet 20 mg PO TID MUSCLE SPASMS 09/10/22 food supplemt, lactose-reduced 0.08 gram-1.5 kcal/mL oral liquid 250 ml PO 4X/DAY PRN SUPPLEMENT 09/15/22 lactulose 10 gram/15 mL oral solution 40 g PO QHS CONSTIPATION 09/15/22 melatonin 10 mg tablet 10 mg PO QHS INSOMNIA 09/15/22 mirtazapine 30 mg tablet 45 mg PO QHS 09/15/22 ujwzxgrv-ogyi-wuep 8 mg-folic 400 mcg-K 50 mcg-lutein 300 mcg tablet (Centrum Silver Women) 1 tab PO DAILY health maintenance 09/15/22 nystatin 100,000 unit/gram topical powder 1 applic topical DAILY PRN Skin Irritation 09/15/[address]-jjkbvfwrapy-bwl no1 644 mg-C 30 mg-laura 1 mg tablet (Osteo Bi-Flex Triple Strength) 1 tab PO BID 07/07/23 docusate sodium 283 mg enema 283 mg [place] DAILY CONSTIPATION 09/04/23 pantoprazole 40 mg tablet,delayed release 40 mg PO Q12H 09/04/23 polyethylene glycol 3350 17 gram oral powder packet 17 g PO QHS 09/04/23 cefdinir 250 mg/5 mL oral suspension 300 mg (6 mL) PO Q12H #100 mL 09/09/23 guaifenesin 1,200 mg tablet, extended release 12 hr (Mucus Relief ER) 1,200 mg PO BID #20 tabs 09/09/23 Physical Exam Narrative GENERAL: Patient in no apparent distress HEENT: Atraumatic; normocephalic EYES; Anicteric, Normal Conjunctiva NECK; supple, normal thyroid, RESPIRATORY: Diminished to auscultation CARDIOVASCULAR: Regular S1 S2, GI: soft, normoactive bowel sounds, : No Renal angle tenderness; EXTREMITIES: No edema, no clubbing, MUSCULOSKELETAL: no muscle wasting NEURO: Awake; no lateralizing signs. SKIN: No Rash PSYCH; Flat affect Weight / BMI Weight Weight: 68 kg Body Mass Index (BMI) 21.4 ABG / Lab / Microbiology Data 09/09/23 05:40 09/09/23 05:40 Laboratory: Laboratory Results - last 24 hr 09/09/23 05:40: WBC 7.5, RBC 3.33 L, Hgb 10.3 L, Hct 33.5 L, MCV 100.6 H, MCH 30.9, MCHC 30.7 L, RDW Std Deviation 51.4 H, RDW Coeff of Niurka 14.0, Plt Count 226, MPV 9.5, Immature Gran % (Auto) 0.400, Neut % (Auto) 56.7, Lymph % (Auto) 25.7, Adams % (Auto) 11.2 H, Eos % (Auto) 5.3 H, Baso % (Auto) 0.7, Absolute Neuts (auto) 4.2, Absolute Lymphs (auto) 1.92, Nucleated RBC % 0, Sodium 141, Potassium 4.3, Chloride 107, Carbon Dioxide 31.0, Anion Gap 3 L, BUN 24 H, Creatinine 1.14 H, Estim Creat Clear Calc 50.70, Est GFR (MDRD) Af Amer 61, Est GFR (MDRD) Non-Af 50 L, BUN/Creatinine Ratio 21.1 H, Glucose 85, Calcium 9.3 Microbiology: Microbiology 09/04/23 01:20 Blood Culture (Wb) - Port Blood Culture - Final No growth in 5 days. 09/03/23 00:55 Blood Culture (Wb) - Port Blood Culture - Final No growth in 5 days. 09/04/23 03:54 Urine Catheter - Catheter Legionella Antigen - Final 09/04/23 03:54 Urine Catheter - Catheter Streptococcus pneumoniae Antigen (M - Final D/C Instructions Discharge Diet: Swallowing Precautions Discharge Activity: No Restrictions Call your doctor if you observe: Fever of 101 or Higher, Shortness of breath, Fainting spells and Chest pain Meaningful Use Info Meaningful Use Diagnoses (Choose all that apply): None applicable Discharge Plan Admission Admit Date/Time: 09/04/23 04:09 Attending Provider: Singh Sam Primary Care Provider: Alexandria Carranza Consulting Providers: Mohit Arroyo; Nia Orourke Discharge Orders/Prescriptions Prescriptions: New guaifenesin [Mucus Relief ER] 1,200 mg Tablet Extended Release 12hr 1,200 mg PO BID Qty: 20 0RF cefdinir 250 mg/5 mL suspension for reconstitution 300 mg PO Q12H Qty: 100 0RF Continued acetaminophen 500 MG tablet 1,000 mg PO Q6H PRN (Reason: Pain) polysaccharide iron complex 150 MG capsule 150 mg PO DAILY magnesium oxide 400 MG tablet 400 mg PO QHS vitamin B complex-folic acid [B Complex 1 (with folic acid)] 0.4 MG tablet 1 tab PO DAILY krill oil 1 EACH capsule 500 cap PO DAILY cholecalciferol (vitamin D3) 1,250 mcg (50,000 unit) capsule 50,000 unit PO QMONTH cinacalcet 30 mg tablet 30 mg PO QODAY Patient Comments: TAKE 1 TABLET BY MOUTH EVERY OTHER DAY WITH FOOD fexofenadine 180 mg Tablet 180 mg PO DAILY ondansetron 4 mg tablet,disintegrating 4 mg PO Q8H PRN (Reason: nausea and vomiting) Qty: 10 0RF Hold Instructions: hasn't been taking Vitamin C 1,000 mg Tablet Extended Release 1,000 mg PO BREAKFAST baclofen 20 mg Tablet 20 mg PO TID mirtazapine 30 mg Tablet 45 mg PO QHS nystatin 100,000 unit/gram powder 1 applic TOPICAL DAILY PRN (Reason: Skin Irritation) lactulose 10 gram/15 mL Solution 40 g PO QHS Centrum Silver Women 8 mg iron-400 mcg-300 mcg Tablet 1 tab PO DAILY melatonin 10 mg Tablet 10 mg PO QHS food supplemt, lactose-reduced 0.08 gram-1.5 kcal/mL liquid 250 ml PO 4X/DAY PRN (Reason: SUPPLEMENT) Patient Comments: jevity or isosource as supplement as needed. Osteo Bi-Flex Triple Strength 750 mg-644 mg- 30 mg-1 mg tablet 1 tab PO BID polyethylene glycol 3350 17 gram Powder In Packet 17 g PO QHS pantoprazole 40 mg tablet,delayed release (DR/EC) 40 mg PO Q12H Rx Instructions: Take 40 mg BID for 12 weeks and then taper to 40 mg 1 qd thereafter docusate sodium 283 mg enema 283 mg [place] DAILY Referrals / Follow Up: Alexandria Carranza MD [Primary Care Provider] - Within 1 Week Jasbir Cummings DO [Med Staff - Active Staff] - Within 1 Week Disposition Disposition (needs filled in before D/C Order can be placed): Home Health Service Charges/Coding Visit Charges Inpatient E&M: 46714 Disch Hosp >30min
[2023-09-09] MEDS: 0.9 % NaCl (Sterile) Posiflush 10 mL IV (14:56)
== END 2023-09-09 15:58 | disposition home health service (06) | DRG 178 ==
LOC: ED 09-04 03:23 → PCU 09-04 04:27
PROVIDERS: Internal Medicine; Emergency Provider Emergency Medicine; PCP Internal Medicine; Visit Provider Internal Medicine
DX: J69.0 Pneumonitis due to inhalation of food and vomit (principal); T83.518A Infection and inflammatory reaction due to other urinary catheter, initial encounter; N30.90 Cystitis, unspecified without hematuria; G35 Multiple sclerosis; N18.31 Chronic kidney disease, stage 3a; I12.9 Hypertensive chronic kidney disease with stage 1 through stage 4 chronic kidney disease, or unspecified chronic kidney disease; K21.9 Gastro-esophageal reflux disease without esophagitis; E78.00 Pure hypercholesterolemia, unspecified; K59.09 Other constipation; B96.89 Other specified bacterial agents as the cause of diseases classified elsewhere; R09.02 Hypoxemia; R53.81 Other malaise; Z79.899 Other long term (current) drug therapy
CPT/HCPCS: 36415; 71045; 74018; 80048; 80053; 81001; 83605; 84484; 85025; 85610; 85730; 87040; 87449; 92526; 92610; 93005; 94640; 94667; 94668; 97163; 97166; 97530; 97535; 97802; 97803; 99252; 99285; J7030; J7040; A4216; G0463; J0696; J2405

== ENCOUNTER → 2023-09-29 | Outpatient (CLI) | payer MEDICARE, SELFPAY ==
[2023-09-29 16:28] LABS: Mucous, Urine 0 SEEN /hpf (<or=2+); Red Blood Cells-Urine 0 SEEN /hpf (0-5); Squamous Epithelial Cells - UA 0 SEEN /hpf (5-10)
[2023-09-29 17:32] LABS: Color, Urine Yellow (Yellow); Glucose, Dipstick Normal (Normal); Ketone-Dipstick Negative (Negative); Leukocyte Esterase-Dipstick 500 /ul (Negative); Nitrite-Dipstick Negative (Negative); Occult Blood-Urine 150 /ul (Negative); Protein-Dipstick 15 mg/dl (Negative); Urine Bilirubin Dipstick Negative (Negative); Urine Clarity Sl. Cloudy (Clear); Urine Urobilinogen Normal (Normal)
[2023-09-29 17:45] LABS: Bacteria 1+ /hpf (None Seen); White Blood Cells 25-50 SEEN /hpf (0-5); Yeast-Urine 1+ /hpf (None Seen)
== END | disposition home or self-care (01) ==
LOC: LABSPEC 16:26
PROVIDERS: PCP Internal Medicine; Visit Provider Internal Medicine
DX: R82.90 Unspecified abnormal findings in urine (principal); N18.30 Chronic kidney disease, stage 3 unspecified; Z86.59 Personal history of other mental and behavioral disorders
CPT/HCPCS: 81001; 87077; 87086; 87088; 87186

== ENCOUNTER 2023-10-25 13:31 | Outpatient (CLI) | payer MEDICARE, SELFPAY ==
[2023-10-25 14:20] LABS: Color, Urine Yellow (Yellow); Glucose, Dipstick Normal (Normal); Ketone-Dipstick Negative (Negative); Leukocyte Esterase-Dipstick 500 /ul (Negative); Nitrite-Dipstick Positive (Negative); Occult Blood-Urine 50 /ul (Negative); Protein-Dipstick 30 mg/dl (Negative); Urine Bilirubin Dipstick Negative (Negative); Urine Clarity Sl. Cloudy (Clear); Urine Urobilinogen Normal (Normal)
[2023-10-25 14:23] LABS: Absolute Lymphocyte Count 2.39 X10^3/uL (0.83-4.51); Absolute Neutrophil Count 4.3 X10^3/uL (2.0-7.7); Basophil% 1.2 % (0-1); Eosinophil# 0.43 X10^3/uL; Eosinophils% 5.3 % (0-5); Hematocrit 40.6 % (37-47); Lymphocyte # 2.39 X10^3/ul (0.83-4.51); Lymphocyte % 29.6 % (19-41); Mean Corpuscular Volume 96.9 fL (81-99); Mean Platelet Vol. 10.1 fl (6.2-12.0); Monocyte# 0.78 X10^3/uL; Monocyte% 9.7 % (0-10); NRBC Flagged by Analyzer 0 % (0-5); Neutrophil # 4.34 X10^3/uL (2.7-7.7); Neutrophil % 53.7 % (47-70); Platelet Count 212 K/mm3 (150-450); RBC Distribution Width CV 14.1 % (11.6-14.6); RBC Distribution Width SD 50.4 fl (35.1-43.9); Red Blood Count 4.19 M/mm3 (4.2-5.4); White Blood Count 8.1 K/mm3 (4.4-11.0)
[2023-10-25 14:33] LABS: ALB/GLOB Ratio 0.7 RATIO (0.9-2.4); AST(SGOT) 19 U/L (15-37); Alanine Aminotransfer ALT/SGPT 24 U/L (13-56); Albumin, Serum 3.3 g/dL (3.2-5.0); Alkaline Phosphatase 72 U/L (45-117); Anion Gap 5 (5-15); BUN 13 mg/dL (7-18); BUN/Creat Ratio 12.6 RATIO (10-20); Calcium,Total 9.6 mg/dL (8.5-10.1); Chloride 101 mmol/L (98-107); Creatinine, Serum 1.03 mg/dL (0.55-1.02); EST Glomerular Filtration Rate 57 mL/min (>60); Est Glom Filt Rate - Afr Amer 68 mL/min (>60); Globulin 4.5 g/dL (2.2-4.2); Glucose 82 mg/dL (74-106); Magnesium 2.4 mg/dL (1.6-2.6); Protein, Total 7.8 g/dL (6.4-8.2); Sodium Level 137 mmol/L (136-145)
[2023-10-25 22:15] LABS: Xtra Tube EP Lab EXTRA TUBE
== END 2023-10-25 13:32 | disposition home or self-care (01) ==
LOC: MEDOUTP 13:31
PROVIDERS: PCP Internal Medicine; Referring Provider Internal Medicine; Visit Provider Internal Medicine
DX: E61.1 Iron deficiency (principal); G81.90 Hemiplegia, unspecified affecting unspecified side; N18.30 Chronic kidney disease, stage 3 unspecified; R82.90 Unspecified abnormal findings in urine; Z86.59 Personal history of other mental and behavioral disorders
CPT/HCPCS: 36591; 80053; 81002; 82306; 83735; 85025; 87077; 87086; 87088; 87186; A4216

== ENCOUNTER 2023-12-02 12:59 | Outpatient (CLI) | payer MEDICARE, SELFPAY ==
[2023-12-02 13:59] LABS: Mucous, Urine 0 SEEN /hpf (<or=2+)
[2023-12-02 14:03] LABS: Absolute Lymphocyte Count 2.15 X10^3/uL (0.83-4.51); Basophil# 0.09 X10^3/uL; Basophil% 1.1 % (0-1); Eosinophil# 0.31 X10^3/uL; Eosinophils% 3.7 % (0-5); Hematocrit 40.3 % (37-47); Hemoglobin 12.7 g/dL (12.0-15.0); Lymphocyte # 2.15 X10^3/ul (0.83-4.51); Mean Corp Hgb Conc 31.5 g/dL (32-36); Mean Corpuscular Hgb 31.3 pg (27.0-32.0); Mean Corpuscular Volume 99.3 fL (81-99); Mean Platelet Vol. 10.5 fl (6.2-12.0); Monocyte# 0.72 X10^3/uL; Monocyte% 8.7 % (0-10); NRBC Flagged by Analyzer 0 % (0-5); Neutrophil # 4.97 X10^3/uL (2.7-7.7); Neutrophil % 60.1 % (47-70); Platelet Count 274 K/mm3 (150-450); RBC Distribution Width CV 14.6 % (11.6-14.6); RBC Distribution Width SD 52.7 fl (35.1-43.9); Red Blood Count 4.06 M/mm3 (4.2-5.4); White Blood Count 8.3 K/mm3 (4.4-11.0)
[2023-12-02 14:18] LABS: Color, Urine Yellow (Yellow); Glucose, Dipstick Normal (Normal); Ketone-Dipstick Negative (Negative); Leukocyte Esterase-Dipstick 500 /ul (Negative); Nitrite-Dipstick Positive (Negative); Occult Blood-Urine 250 /ul (Negative); Protein-Dipstick 30 mg/dl (Negative); Specific Gravity, Urine 1.005 (1.002-1.030); Urine Bilirubin Dipstick Negative (Negative); Urine Clarity Sl. Cloudy (Clear); Urine Urobilinogen Normal (Normal)
[2023-12-02 14:19] LABS: PTHIN 182.5 pg/mL (18.4-80.1)
[2023-12-02 14:23] LABS: Vitamin D,25 Hydroxy 76.6 ng/mL
[2023-12-02 14:24] LABS: ALB/GLOB Ratio 0.7 RATIO (0.9-2.4); AST(SGOT) 18 U/L (15-37); Alanine Aminotransfer ALT/SGPT 31 U/L (13-56); Albumin, Serum 3.4 g/dL (3.2-5.0); Alkaline Phosphatase 93 U/L (45-117); Anion Gap 3 (5-15); BUN 33 mg/dL (7-18); BUN/Creat Ratio 31.7 RATIO (10-20); Calcium,Total 9.5 mg/dL (8.5-10.1); Chloride 107 mmol/L (98-107); Creatinine, Serum 1.04 mg/dL (0.55-1.02); EST Glomerular Filtration Rate 56 mL/min (>60); Est Glom Filt Rate - Afr Amer 68 mL/min (>60); Globulin 4.7 g/dL (2.2-4.2); Glucose 78 mg/dL (74-106); Potassium 4.4 mmol/L (3.5-5.1); Protein, Total 8.1 g/dL (6.4-8.2); Sodium Level 138 mmol/L (136-145)
[2023-12-02 14:40] LABS: Bacteria 1+ /hpf (None Seen); Red Blood Cells-Urine 0-5 SEEN /hpf (0-5); Squamous Epithelial Cells - UA 0-5 SEEN /hpf (5-10); White Blood Cells >100 SEEN /hpf (0-5)
[2023-12-06 14:21] LABS: Ferritin 313 ng/mL (8-252); Prealbumin 36.7 mg/dL (20.0-40.0)
[2023-12-08 12:10] LABS: PROEL- A/G Ratio 0.9 (0.7-1.7); PROEL- Albumin 3.4 g/dL (2.9-4.4); PROEL- Alpha-1 Globulin 0.3 g/dL (0.0-0.4); PROEL- Alpha-2 Globulin 0.8 g/dL (0.4-1.0); PROEL- Beta Globulin 1.3 g/dL (0.7-1.3); PROEL- Gamma Globulin 1.4 g/dL (0.4-1.8); PROEL- Globulin, Total 3.9 g/dL (2.2-3.9); PROEL- TOTAL PROTEIN 7.3 g/dL (6.0-8.5); PROEL-M-Spike Not Observed g/dL (Not Observed)
== END 2023-12-02 13:00 | disposition home or self-care (01) ==
LOC: MEDOUTP 12:59
PROVIDERS: PCP Internal Medicine; Referring Provider Internal Medicine; Visit Provider Internal Medicine
DX: N18.30 Chronic kidney disease, stage 3 unspecified (principal); R89.9 Unspecified abnormal finding in specimens from other organs, systems and tissues; R82.71 Bacteriuria
CPT/HCPCS: 36591; 80053; 81001; 82306; 82728; 83970; 84134; 84165; 85025; 87077; 87086; 87088; 87186; A4216

== ENCOUNTER → 2023-12-13 | Outpatient (CLI) | payer MEDICARE, SELFPAY ==
--- NOTE | 2023-12-13 13:18 | MRI_ITS ---
EXAM: MR HEAD WITHOUT AND WITH INTRAVENOUS CONTRAST CLINICAL INDICATION: MS TECHNIQUE: Multiplanar and multisequence MR images of the brain were obtained without and with intravenous contrast. CONTRAST: IV 12ml Clariscan COMPARISON: No relevant prior studies available. FINDINGS: BRAIN AND EXTRA-AXIAL SPACES: Increased T2 signal intensity within the cerebral white matter suggestive of chronic microvascular change. Stable chronic lacunar infarct within the left caudate nucleus. Prominence of the cortical sulci and ventricles related to volume loss change. No intra- or extra-axial hemorrhage. No intracranial mass or mass effect. Posterior fossa structures are unremarkable. Basal cisterns are patent. No abnormal contrast enhancement. SELLA: Normal. Normal sella turcica, pituitary gland, infundibular stalk, optic chiasm and hypothalamus. AUDITORY SYSTEM: Normal. The internal auditory canals are patent. BONES/JOINTS: Intact calvarium. SINUSES: Unremarkable as visualized. Clear. MASTOID AIR CELLS: Unremarkable as visualized. Clear. ORBITS: Unremarkable as visualized. Both globes, extraocular muscles, optic nerves and retrobulbar fat appear unremarkable. VASCULATURE: Unremarkable as visualized. Normal flow voids in the major intracranial circulation. MRI/Brain W/WO Contrast IMPRESSION: 1. No acute intracranial abnormality. 2. Stable chronic microvascular and senescent changes. Electronically Signed: Huey Townsend MD at 14:15 EDT ,
--- NOTE | 2023-12-13 14:27 | BI_ITS ---
MAMMOGRAPHY - BILATERAL DIAGNOSTIC REASON FOR EXAM: Female, 68 years old. Weight loss. PERTINENT HISTORY: Grandmother with breast cancer. TECHNIQUE: Digital bilateral breast scott (3D mammographic acquisition) in the CC and MLO projections. 2-D mediolateral oblique (MLO) and craniocaudad (CC) views of both breasts were obtained. CAD: Full Field Digital Mammography with Computer Added Detection was performed. COMPARISON: Comparison is made with prior study dated November 24, 2022 and April 28, 2021. FINDINGS: Breast Composition: The breasts are heterogeneously dense, which may obscure small masses. There are no dominant masses or suspicious calcifications. No other significant abnormalities are identified. There has been no significant change since the prior study. BI/SCRN MAMM (CAD)W/SCOTT BILAT IMPRESSION: Stable bilateral diagnostic mammogram. One year follow-up recommended. (A) ASSESSMENT CATEGORY: BIRADS Category 1: Negative. A letter regarding these results will be sent to the patient by the facility within 30 days. Approximately 10% of breast cancers are not detected by mammography. A normal mammogram should not delay biopsy of a clinically suspicious abnormality. Electronically Signed: Luís Hines MD at 8:37 EDT ,
== END | disposition home or self-care (01) ==
LOC: MRI 12:35
PROVIDERS: PCP Internal Medicine; Referring Provider Internal Medicine; Visit Provider Internal Medicine
DX: Z12.31 Encounter for screening mammogram for malignant neoplasm of breast (principal); G35 Multiple sclerosis; M25.552 Pain in left hip
CPT/HCPCS: 70553; 77063; 77067; A9575

== ENCOUNTER 2024-01-06 15:17 | Outpatient (CLI) | payer MEDICARE, SELFPAY ==
[2024-01-06 16:05] LABS: Mucous, Urine 0 SEEN /hpf (<or=2+)
[2024-01-06 16:05] LABS: Absolute Neutrophil Count 7.4 X10^3/uL (2.0-7.7); Basophil# 0.07 X10^3/uL; Basophil% 0.7 % (0-1); Eosinophil# 0.23 X10^3/uL; Eosinophils% 2.1 % (0-5); Hematocrit 44.5 % (37-47); Hemoglobin 14.1 g/dL (12.0-15.0); Lymphocyte % 19.6 % (19-41); Mean Corp Hgb Conc 31.7 g/dL (32-36); Mean Corpuscular Hgb 30.9 pg (27.0-32.0); Mean Corpuscular Volume 97.6 fL (81-99); Mean Platelet Vol. 10.4 fl (6.2-12.0); Monocyte% 8.4 % (0-10); NRBC Flagged by Analyzer 0 % (0-5); Neutrophil % 68.9 % (47-70); Platelet Count 206 K/mm3 (150-450); RBC Distribution Width CV 14.2 % (11.6-14.6); RBC Distribution Width SD 51.4 fl (35.1-43.9); Red Blood Count 4.56 M/mm3 (4.2-5.4); White Blood Count 10.7 K/mm3 (4.4-11.0)
[2024-01-06 16:08] LABS: Color, Urine Yellow (Yellow); Glucose, Dipstick Normal (Normal); Ketone-Dipstick Negative (Negative); Leukocyte Esterase-Dipstick 500 /ul (Negative); Nitrite-Dipstick Positive (Negative); Occult Blood-Urine 150 /ul (Negative); Protein-Dipstick Negative (Negative); Urine Bilirubin Dipstick Negative (Negative); Urine Clarity Sl. Cloudy (Clear); Urine Urobilinogen Normal (Normal)
[2024-01-06 16:11] LABS: Ionized Calcium 5.28 mg/dL (4.36-5.20)
[2024-01-06 16:27] LABS: Bacteria 1+ /hpf (None Seen); Red Blood Cells-Urine 10-25 SEEN /hpf (0-5); Squamous Epithelial Cells - UA 0-5 SEEN /hpf (5-10); White Blood Cells 25-50 SEEN /hpf (0-5)
[2024-01-06 16:37] LABS: ALB/GLOB Ratio 0.7 RATIO (0.9-2.4); AST(SGOT) 31 U/L (15-37); Alanine Aminotransfer ALT/SGPT 31 U/L (13-56); Albumin, Serum 3.5 g/dL (3.2-5.0); Alkaline Phosphatase 87 U/L (45-117); Anion Gap 4 (5-15); BUN 31 mg/dL (7-18); BUN/Creat Ratio 30.7 RATIO (10-20); Calcium,Total 10.1 mg/dL (8.5-10.1); Chloride 103 mmol/L (98-107); Creatinine, Serum 1.01 mg/dL (0.55-1.02); EST Glomerular Filtration Rate 58 mL/min (>60); Est Glom Filt Rate - Afr Amer 70 mL/min (>60); Globulin 4.8 g/dL (2.2-4.2); Glucose 99 mg/dL (74-106); Potassium 4.3 mmol/L (3.5-5.1); Protein, Total 8.3 g/dL (6.4-8.2); Sodium Level 138 mmol/L (136-145)
[2024-01-06 16:41] LABS: PTHIN 63.8 pg/mL (18.4-80.1)
[2024-01-06 16:42] LABS: Creatinine, Urine (random) < 13.00 mg/dL (NO RANGE EST.); Microalbumin,Random Urine 28.4 mg/L (NO RANGE EST.)
[2024-01-06 16:45] LABS: Vitamin D,25 Hydroxy 73.8 ng/mL
[2024-01-07 00:01] LABS: Ionized Calcium Order ORDER TUBE
== END 2024-01-06 15:18 | disposition home or self-care (01) ==
LOC: MEDOUTP 15:17
PROVIDERS: PCP Internal Medicine; Referring Provider Internal Medicine; Visit Provider Internal Medicine
DX: G81.90 Hemiplegia, unspecified affecting unspecified side (principal); N18.30 Chronic kidney disease, stage 3 unspecified; E61.1 Iron deficiency; R89.9 Unspecified abnormal finding in specimens from other organs, systems and tissues; R82.71 Bacteriuria
CPT/HCPCS: 36591; 80053; 81001; 82043; 82306; 82330; 82570; 83970; 85025; 87077; 87086; 87088; 87186; A4216

== ENCOUNTER 2024-02-08 09:24 | Day surgery (SDC) | payer MEDICARE, MEDICAID, SELFPAY ==
[2024-02-08] VITALS (8 sets, daily range): BP systolic 127–151; BP diastolic 74–99; PULSE 61–72; RESP 14–18; TEMP 36.3–37.3; O2SAT 93–95; BMI 19.9
[2024-02-08] MEDS: Lactated Ringers 1,000 ML 15 ML IV (10:09)
[2024-02-08] MEDS: Cefazolin 2 GM in 0.9% Normal Saline (100mL Bag) 100 ML IV (10:59)
--- NOTE | 2024-02-08 10:59 | HP.PCM_ITS ---
History and Physical Date of Admission: 02/08/24 OFFICE VISIT Date of Service: 01/06/24 MR#: [id number] Acct: [id number] Name: KEN CASON Rep #: [id number] : 1955 Provider: Dr. Amari Zamarripa MD Age/Sex: 68/F Location: [facility] Status: Signed Intake Vital Signs 09/08/2315:29 Height 5 ft 10.08 in Intake Visit Reasons: 2 WK F/U PEG TUBE CHECK Chief Complaint: PEG leakage/bleeding 2 wk f/u Allergies dextrose 5 % in water [From Zyvox] Adverse Reaction (Verified 01/06/24 14:21) Otherdoxycycline Adverse Reaction (Verified 01/06/24 14:21) hypotensionlevofloxacin [From Levaquin] Adverse Reaction (Verified 01/06/24 14:21) hypotensionlinezolid [From Zyvox] Adverse Reaction (Verified 01/06/24 14:21) Othermorphine Adverse Reaction (Verified 01/06/24 14:21) hallucinationspiperacillin [From Zosyn] Adverse Reaction (Verified 01/06/24 14:21) hypotensionsulfamethoxazole [From Bactrim] Adverse Reaction (Verified 01/06/24 14:21) hypotensiontazobactam [From Zosyn] Adverse Reaction (Verified 01/06/24 14:21) hypotensiontrimethoprim [From Bactrim] Adverse Reaction (Verified 01/06/24 14:21) hypotensionvancomycin Adverse Reaction (Verified 01/06/24 14:21) developed toxic levels Medications acetaminophen 500 mg tablet 1,000 mg PO Q6H PRN Pain 02/15/19 [History Confirmed 01/06/24] magnesium oxide 400 mg (241.3 mg magnesium) tablet 400 mg PO QHS magnesium supplement 05/23/19 [History Confirmed 01/06/24] polysaccharide iron complex 150 mg iron capsule 150 mg PO DAILY iron replacement 05/23/19 [History Confirmed 01/06/24] krill 1,000 mg-omega-3 170 mg-dha 50 mg-epa 80 [id number]-[id number] capsule (krill oil) 500 cap PO DAILY supplement 11/15/20 [History Confirmed 01/06/24] vitamin B complex-folic acid 0.4 mg tablet (B Complex 1 (with folic acid)) 1 tab PO DAILY vitamin 11/15/20 [History Confirmed 01/06/24] cholecalciferol (vitamin D3) 1,250 mcg (50,000 unit) capsule 50,000 unit PO QMONTH vitamin 08/15/21 [History Confirmed 01/06/24] cinacalcet 30 mg tablet 30 mg PO QODAY hyperparathyroidism 11/24/21 [History Confirmed 01/06/24] fexofenadine 180 mg tablet 180 mg PO DAILY ALLERGIES 07/22/22 [History Confirmed 01/06/24] ondansetron 4 mg disintegrating tablet 4 mg PO Q8H PRN nausea and vomiting #10 tabs 07/22/22 [Rx Confirmed 01/06/24] ascorbic acid (vitamin C) 1,000 mg tablet,extended release (Vitamin C ER) 1,000 mg PO BREAKFAST SUPPLEMENT 07/23/22 [History Confirmed 01/06/24] baclofen 20 mg tablet 20 mg PO TID MUSCLE SPASMS 09/10/22 [History Confirmed 01/06/24] food supplemt, lactose-reduced 0.08 gram-1.5 kcal/mL oral liquid 250 ml PO 4X/DAY PRN SUPPLEMENT 09/15/22 [History Confirmed 01/06/24] melatonin 10 mg tablet 10 mg PO QHS INSOMNIA 09/15/22 [History Confirmed 01/06/24] mirtazapine 30 mg tablet 45 mg PO QHS 09/15/22 [History Confirmed 01/06/24] nkyinowo-vedl-vhum 8 mg-folic 400 mcg-K 50 mcg-lutein 300 mcg tablet (Centrum Silver Women) 1 tab PO DAILY health maintenance 09/15/22 [History Confirmed 01/06/24] nystatin 100,000 unit/gram topical powder 1 applic topical DAILY PRN Skin Irritation 09/15/22 [History Confirmed 01/06/24] glucosamine 750 da-nverzqbzymo-inj no1 644 mg-C 30 mg-laura 1 mg tablet (Osteo Bi-Flex Triple Strength) 1 tab PO BID 07/07/23 [History Confirmed 01/06/24] docusate sodium 283 mg enema 283 mg ND DAILY CONSTIPATION 09/04/23 [History Confirmed 01/06/24] polyethylene glycol 3350 17 gram oral powder packet 17 g PO QHS 09/04/23 [History Confirmed 01/06/24] guaifenesin 1,200 mg tablet, extended release 12 hr (Mucus Relief ER) 1,200 mg PO BID #20 tabs 09/09/23 [Rx Confirmed 01/06/24] pantoprazole 40 mg tablet,delayed release 40 mg PO DAILY 01/06/24 [History Confirmed 01/06/24] PFSH Medical History Age-related cognitive decline Alcohol use Allergic rhinitis Anemia Back pain Bilateral hydronephrosis Blackout Chronic indwelling Maldonado catheter CKD (chronic kidney disease) stage 4, GFR 15-29 ml/min Declining functional status Dental bridge present Depression Difficulty chewing Difficulty swallowing Dislodged gastrostomy tube Elevated sed rate Elevated serum globulin level Endometrial thickening on ultrasound Hearing loss, left High cholesterol History of echocardiogram History of edema History of wrist fracture Hyperlipidemia Hypertension Hypoxia Indwelling urethral catheter present Insomnia Iron deficiency anemia Kidney disease Loss of hearing Malnutrition Migraine headache MRSA colonization Multiple sclerosis Muscle spasm Neurogenic bladder Non-smoker OAB (overactive bladder) Occlusion and stenosis of bilateral carotid arteries Osteoporosis Partial seizure Pelvic pain Poor appetite Port-A-Cath in place Post-menopausal Right hemiparesis Suprapubic catheter Urinary tract infection Uses wheelchair Vitamin D deficiency Wears glasses Surgical History H/O cervical polypectomy H/O dilation and curettage History of cystoscopy History of esophagogastroduodenoscopy (EGD) History of tonsillectomy and adenoidectomy History of tympanoplasty Hx of hand surgery Hx of shoulder surgery S/P laparoscopic procedure S/P percutaneous endoscopic gastrostomy (PEG) tube placement Family History Mother OsteoporosisGrandmother Breast cancerFather Hypertension HLD (hyperlipidemia) Social History (Updated 11/17/23 @ 13:51 by Fadumo Hope) household members: spouse housing: house Smoking Status: Never smoker alcohol intake: never substance use type: does not use what type of physical activity do you participate in: none seatbelt use: always do you feel safe at home: Yes 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 HPI HPI HPI: Patient is a 68-year-old female with a history of multiple sclerosis who presents with her due to concerns about abnormal leakage and drainage from her gastrostomy tube. She is known to me from initial placement of this PEG in the fall 2021. Thereafter, I was involved with a PEG tube replacement after it became dislodged May 2023. Again she presents today's visit with her . Patient's last visit was 12/02/2023. Mr. Cason states that his has had some improvements in a number of areas, however, he notes that he continues to see serosanguineous/bloody drainage present tube feeds from around her gastrostomy tube. He estimates that he is changing the dressing 1 time per day but he notes that this is not an administrative change and that it truly needs changed because of this drainage. He also shares that effective 01/29/2024 his will be on Protonix just once daily. He once again asked whether it is possible for us to consider a follow-up EGD as he is interested to know whether her ulcer situation has improved and whether she can be tested for H. pylori. He does note that there is less concern for ulcer disease as previously she experienced frequent nausea and this does not seem to be an issue so much presently. He confirms that she is tolerating tube feeds at a rate of up to 600 mL/h. He denies any new blood thinners, but does share that his regularly takes Krill and tumeric. Below is recapitulated from patient's prior visit for ease of review: He provides a history and states that there is been both less leakage and bleeding. He does qualify this by stating that his is spent more time in bed. He suggest that they are awaiting a neuroevaluation and possible a sleep study as to why his is feeling fatigued all the time. Later in the visit Mr. Cason asked whether it is possible to have me repeat his 's EGD study to assess for healing of several gastric and duodenal ulcers found by Dr. Cummings in July 2023 and whether or not she can be tested for H. pylori infection. Patient is a 68-year-old female with a history of multiple sclerosis who presents with her due to concerns about abnormal leakage and drainage from her gastrostomy tube. She is known to me from initial placement of this PEG in the fall 2021. Thereafter, I was involved with a PEG tube replacement after it became dislodged May 2023. Patient's shares that they have had ongoing leakage for a long time. He shares that he changes the dressing 1 time per day and occasionally it becomes fully saturated. He states that almost always the drainage is bloody. He confirms that his is having a bowel movement almost every day and they remain on a strict bowel regimen of Metamucil twice daily, p.m. lactulose, and MiraLAX, and a mini enema. He relates that his saw Dr. Cummings in July on qzns-la-mqtw days due to complaints of nausea and she underwent a EGD and was found to have a number of small bowel ulcers which Dr. Cummings treated. Unfortunately the feeding tube that he placed at the first visit on 07/09/2023 was not functional and she required an EGD the very next day for an exchange. Mr. Cason states that otherwise his is recently recovered from a pneumonia and seems to have waxing and waning neurologic changes including difficulty with verbalizing and some dexterity concerns with her left upper extremity. She follows with a neurologist in the [place] area. ROS General General: Yes fatigue; No weight change, appetite, colon cancer, breast cancer or weakness HEENT HEENT: Yes difficulty swallowing; No eye injury, eye surgery, swollen glands or hoarseness Endo Endocrine: No thyroid disease, diabetes mellitus, thyroid cancer, Hair loss, heat intolerance or cold intolerance Skin Skin: No rash or changing moles Musc Musculoskeletal: Yes arthritis; No back problems, rheumatoid arthritis, gout or joint pain Cardio Cardiovascular: No murmur, pacemaker, heart disease, atrial fibrillation, high blood pressure, heart attack, heart stent, palpitations, shortness of breat with exertion or chest pain Psych Psychiatric: No depression, anxiety or hearing voices Resp Respiratory: No shortness of breath, No sleep apnea, No cough, No COPD, No asthma, No emphysema and No wheezing Gastro Gastrointestinal: No abdominal pain, No nausea or vomiting, No diarrhea, No constipation, No blood in stool, No acid reflux, Yes hemorrhoids, No ulcers, No gallbladder problem and No black,tarry stools Kannan Hematologic: No blood thinners, No blood disorders, No bleeding, No anemia and No blood clots Neuro Neurologic: No system reviewed and no additional complaints, except as documented, No as per HPI, No abnormal gait, No abnormal hearing, No abnormal movements, No abnormal speech, No behavioral changes, No burning sensations, No confusion, No convulsions, No disequilibrium, No dizziness, No localized weakness, No frequent falls, No headache(s), No lack of coordination, No loss of vision, No memory loss, No numbness, No other visual disturbances, No radicular pain, No restless legs, No sensory deficit, No syncope, No tingling, No tremor(s), No weakness and No other Exam Const General: cooperative Orientation: alert and awake Other: Nonverbal Resp Effort & Inspection: normal respiratory effort GI Other: Persistent evidence of prolapsed gastric mucosa that appears increased from last visit. The tissue appears more friable again with elaine bloody drainage. The tube also is somewhat loose at the skin and is initially located at 5 cm on the bumper. The Meghan tube skin is erythematous from local irritation Assessment and Plan Assessment and Plan (1) Drainage from gastrostomy tube site: Status: Chronic Comment: Patient is 68-year-old male who has a chronic gastrostomy for enteral feeds related to her inability to take nutrition by mouth secondary to her MS diagnosis and presents today with her for drainage concerns. Through the history elicited from her it appears that the drainage amount is actually not exceptional, however, the drainage character being bloody is remarkable and on exam she appears to have some prolapsing gastric mucosa through the os alongside of the gastrostomy tube. I proceeded to treat this area topically with application of potassium nitrate and instructed Mr. Cason to be aware of silver staining and sloughing of this area. I provided cautious optimism that this should alleviate his concerns, but if not we may have to consider a operative procedure under sedation to employ electrocautery to remove this bleeding gastric mucosa. In the interim I have instructed him on how to dress the tube in a way as to minimize the risk for leakage but also not be so tight as to encourage gastric mucosal prolapse. Update 12/02/2023: Patient has had both less leakage and less bleeding. Overall on exam the area is improved as well. Given these improvements but still incomplete result I have recommended repeating the topical application of silver nitrate and patient's agreed. Application was made with minimal discomfort to patient. It is my hope that this will resolve this issue without requiring an operating room procedure. Update 01/06/2024: Patient has once again increased leakage and bleeding. Once again, patient has more evidence of prolapsed gastric mucosa. This is interesting since patient's bumper is actually loose at the skin. I offered to temporize patient's lesion with application of silver nitrate, but ultimately recommended that we proceed to the operating room for excision of the prolapsed mucosa with cautery. Patient's is enthusiastic about this recommendation and wishes to proceed. Plan: ? Plan to dress tube once daily and keep tube more snugly fit at 4.5 cm at the skin ? Plan to excise redundant gastric mucosa under MAC sedation (2) Gastric mucosa prolapse: Status: Chronic Comment: Patient with ongoing gastric prolapse despite conservative measures with silver nitrate. In fact, patient has nearly returned to her original status and I believe more aggressive measures are required with formal operative excision using electrocautery. Plan: Excision of gastric mucosa under MAC sedation (3) Gastric ulcer: Status: Acute Comment: Patient has a history of fragmented gastric ulcers as well as duodenal ulcers in the first portion of the duodenum upon EGD from July 2023. Patient's wishes for follow-up of these ulcers, but has been notified by gastroenterology that they are unable to proceed as requested. Therefore he has asked for me to consider EGD with biopsy for H pylori. Patient's reiterates this concern and I have shared we could plan for repeat EGD with H. pylori biopsy concurrent with the above procedure to revise his 's gastrostomy tube. He is pleased with this recommendation. Plan: Plan for repeat EGD for surveillance of ulcers as well as biopsy for H. pylori testing Coding Level of Care Code Off vis,est,level 4 Diagnoses Drainage from gastrostomy tube site K94.23 Gastric mucosa prolapse K31.89 Gastric ulcer K25.9 Time Spent (min) I have examined the patient and the H&P has been reviewed. There are no clinical changes since date of exam.Patient's relates that his has complained of some more nausea and had 3 bouts of this Wednesday but has been better since. He confirms his interest in obtaining H. pylori testing and that he is comfortable in proceeding with the gastrostomy tube replacement as discussed over the phone. Will now proceed to the operating room for gastrostomy tube revision with excision of prolapsed gastric mucosa and EGD to follow-up patient's history of peptic ulcers and H. pylori testing.
--- NOTE | 2024-02-08 11:00 | EGD_PTH ---
PATIENT: KEN CASON LOC: [facility] [place] U#:[id number] AGE/SX: 69/F ROOM: RE02/08/[address]: Dr. Amari Zamarripa MD : 1955 BED: DIS: 02/08/2024 SPEC #: [id number] RECD: 02/08/24 13:26 STATUS: SANDRITA CHARLES #: [id number] JOSE ARMANDO: 02/08/24 11:[address]: Amari Zamarripa DEPT: SURGICAL PATHOLOGY RECD BY: Shruthi Can ENTERED: 02/08/24 13:57 SP TYPE: EGD BIOPSY OT DR: Dr. Alexandria Carranza MD Tissues: A - Duodenum, NOS B - Gastric mucous membrane C - Gastric mucous membrane D - Gastric fundus E - Gastric fundus F - Gastric fundus Procedures: Surgery Specimen Level IV HEADER OPERATION: Gastrotube revision, EGD in OR, biopsies, clip placement PRE-OP DIAGNOSIS: Drainage from gastrostomy tube site, gastric mucosa prolapse, gastric ulcer TISSUE SUBMITTED: A- Duodenal mucosal nodule biopsy, B- Antrum biopsy, C- Gastric body mucosa greater curvature biopsy, D- Fundus plaque biopsy, E- Fundal polyp biopsy, F- Fundal polyp MICROSCOPIC DIAGNOSIS A. Duodenum mucosal nodule, biopsy: A fragment of duodenal mucosa with focal gastric metaplasia and non-specific chronic inflammation. B. Antrum, biopsy: Mild gastritis. See microscopic description and comment. C. Gastric body mucosa, greater curvature, biopsy: Mild gastritis. See microscopic description. D. Fundus plaque, biopsy: Fragments of hyperplastic/ inflammatory polyp. E. Fundal polyp, biopsy: Fragments of hyperplastic/ inflammatory polyp. Fragments of fundic gland polyp. F. Fundal polyp, biopsy: Fragments of hyperplastic/ inflammatory polyp. A few fragments of fundic gland polyp. MARVIN/ 02/09/24 COMMENT B. The results of immunohistochemistry for Helicobacter pylori will be reported separately ([id number]). MICROSCOPIC DESCRIPTION Slides are reviewed. B&C. The specimen shows fragments of gastric mucosa with chronic inflammatory cell infiltrates in the lamina propria consisting of lymphocytes and plasma cells, consistent with mild chronic gastritis. GROSS DESCRIPTION A. Received in fixative is one container labeled with the patient's name and designated Duodenal mucosal nodule biopsy. The specimen consists of one irregular fragment of light mak soft tissue that measures 0.5 x 0.5 x 0.2 cm. The specimen is totally submitted in one cassette. B. Received in fixative is one container labeled with the patient's name and designated Antrum biopsy. The specimen consists of two irregular fragments of light mak soft tissue that in aggregate measure 1.0 x 0.5 x 0.2 cm. The specimen is totally submitted in one cassette. C. Received in fixative is one container labeled with the patient's name and designated Gastric body mucosa greater curvature biopsy. The specimen consists of one irregular fragment of light mak soft tissue that measures 0.5 x 0.5 x 0.2 cm. The specimen is totally submitted in one cassette. D. Received in fixative is one container labeled with the patient's name and designated Fundus plaque biopsy. The specimen consists of two irregular fragments of light mak soft tissue that in aggregate measure 1.0 x 0.2 x 0.2 cm. The specimen is totally submitted in one cassette. E. Received in fixative is one container labeled with the patient's name and designated Fundal polyp biopsy. The specimen consists of multiple irregular fragments of light mak soft tissue that in aggregate measure 3.0 x 0.5 x 0.5 cm. The specimen is totally submitted in one cassette. F. Received in fixative is one container labeled with the patient's name and designated Fundal polyp. The specimen consists of multiple irregular fragments of light mak soft tissue that in aggregate measure 3.0 x 1.5 x 0.2 cm. The specimen is totally submitted in one cassette. mr 02/08/24 TC:5 CPT:93448q0
--- NOTE | 2024-02-08 11:00 | IMM_PTH ---
PATIENT: KEN CASON LOC: [facility] [place] U#:[id number] AGE/SX: 69/F ROOM: RE02/08/[address]: Dr. Amari Zamarripa MD : 1955 BED: DIS: 02/08/2024 SPEC #: [id number] RECD: 02/09/24 08:53 STATUS: SANDRITA REQ #: [id number] JOSE ARMANDO: 02/08/24 11:[address]: Amari Zamarripa DEPT: IMMUNOHISTOCHEMISTRY RECD BY: Jaleel Nieto ENTERED: 02/09/24 08:53 SP TYPE: IMMUNO OTHR DR: Dr. Alexandria Carranza MD Tissues: B - Stomach, NOS Procedures: H Pylori (initial) PHYSICIAN & INSTITUTION [place] [id number] SPECIMEN INFORMATION: Tissue Source: B- Antrum biopsy Clinical Info: Drainage from gastrostomy tube site, Gastric mucosa prolapse, Gastric ulcer Specimen Number: [id number] CPT code: 10037 METHODOLOGY: Deparaffinized sections of prefer/formalin-fixed tissue or PAP/DQ stained slides are incubated with monoclonal/polyclonal antibodies/oligonucleotide probes. Localization is made via biotin free immunoperoxidase method. Appropriate controls are performed and reacted as expected. Results on target cell population are indicated in the following table: RESULTS: ANTIBODY / CLONE RESULT Block B H Pylori (polyclonal) negative These tests were developed and their performance characteristics determined by [facility]. They may not have been cleared or approved by the U.S. Food and Drug Administration. The FDA has determined that such clearance or approval is not necessary. The above immunohistochemical/dualISH markers are ordered and reviewed by the Pathologist. INTERPRETATION: B. Antrum, biopsy: Negative for Helicobacter pylori organisms. MARVIN/ 02/09/24
[2024-02-08] MEDS: Bupivacaine Mpf 0.5% 30 ML VIAL (11:30)
[2024-02-08] MEDS: BACITRACIN/POLYMYXIN B 15 GM Tube 1 APPLIC (12:06)
--- NOTE | 2024-02-08 12:33 | DCINST_ITS ---
Discharge Instructions Diet Discharge Diet: No restrictions Activity Discharge Activity: May Not Drive (May not drive while taking narcotic pain medications) and May Shower (May begin showering 48hours postop. Please avoid baths or submerging surgical incisions before skin is completely healed.) May shower in (days): 1 May resume sexual activity in: 2 weeks Dressing / Incision Call your doctor if your incision/area has: Continuous Slow Oozing, Sudden Increased Bleeding, Increased Pain/ Swelling, Increased Redness, Foul Smelling Discharge and Swelling at the incision site Call your doctor if you observe: Fever of 101 or Higher, Inability to urinate, Inability to have a bowel movement and Uncontrolled pain Suture Line Care: Avoid Pulling/Pushing Change Dressing in: If saturat Cleanse incision/area with: Keep Dressing Clean & Dry Additional Dressing/Incision Instructions:: Apply thin layer of bacitracin to mucosa once daily X 1 week Follow Up Care Please Follow Up With: Amari Zamarripa MD When: 2 weeks postop Test Results: Test results from this visit will be discussed in further detail at your follow- up appointment, if applicable. Discharge Plan Admission Primary Reason for Your Visit: G tube revision, EGD, G tube replacement Attending Provider: Amari Zamarripa Primary Care Provider: Alexandria Carranza Discharge Orders/Prescriptions Prescriptions: New sucralfate [Carafate] 1 gram tablet 1 g PO Q6H 28 Days Qty: 112 0RF No Action pantoprazole 40 mg tablet,delayed release (DR/EC) 40 mg PO DAILY acetaminophen 500 MG tablet 1,000 mg PO Q6H PRN (Reason: Pain) polysaccharide iron complex 150 MG capsule 150 mg PO DAILY Hold Instructions: Ordered magnesium oxide 400 MG tablet 400 mg PO QHS vitamin B complex-folic acid [B Complex 1 (with folic acid)] 0.4 MG tablet 1 tab PO DAILY krill oil 1 EACH capsule 500 cap PO DAILY cholecalciferol (vitamin D3) 1,250 mcg (50,000 unit) capsule 50,000 unit PO QMONTH cinacalcet 30 mg tablet 30 mg PO QODAY Patient Comments: TAKE 1 TABLET BY MOUTH EVERY OTHER DAY WITH FOOD fexofenadine 180 mg Tablet 180 mg PO DAILY ondansetron 4 mg tablet,disintegrating 4 mg PO Q8H PRN (Reason: nausea and vomiting) Qty: 10 0RF Hold Instructions: hasn't been taking Vitamin C 1,000 mg Tablet Extended Release 1,000 mg PO BREAKFAST baclofen 20 mg Tablet 20 mg PO TID mirtazapine 30 mg Tablet 45 mg PO QHS nystatin 100,000 unit/gram powder 1 applic TOPICAL DAILY PRN (Reason: Skin Irritation) Centrum Silver Women 8 mg iron-400 mcg-300 mcg Tablet 1 tab PO DAILY melatonin 10 mg Tablet 10 mg PO QHS food supplemt, lactose-reduced 0.08 gram-1.5 kcal/mL liquid 250 ml PO 4X/DAY PRN (Reason: SUPPLEMENT) Patient Comments: jevity or isosource as supplement as needed. Osteo Bi-Flex Triple Strength 750 mg-644 mg- 30 mg-1 mg tablet 1 tab PO BID polyethylene glycol 3350 17 gram Powder In Packet 17 g PO DAILY PRN (Reason: constipation) docusate sodium 283 mg enema 283 mg SC DAILY turmeric 400 mg capsule 400 mg PO DAILY Referrals / Follow Up: Alexandria Carranza MD [Primary Care Provider] - Amari Zamarripa MD [Med Staff - Active Staff] - Disposition Disposition (needs filled in before D/C Order can be placed): Home, Self Care
--- NOTE | 2024-02-08 12:33 | OP.PCM_ITS ---
Report of Operation Date of Procedure: 02/08/24 Pre-Operative Diagnosis: Recurrent bleeding from prolapsed gastric mucosa around PEG tube Post-Operative Diagnosis: Same Surgery/Procedure Performed:: Gastrostomy tube revision with ablation of gastric mucosa and replacement of PEG tube Description of Surgical Findings:: Exceptionally friable prolapsed gastric mucosa Surgeon: Amari Zamarripa automobile insurance claim examiner: César Can Type of Anesthesia: MAC/Supplemental/Local Anesthesiologist: Yvon Reyes Estimated Blood Loss (mL): 5 Description of Procedure: After appropriate indication preoperative holding her patient was brought to the operating room where she was positioned supine on the operating table. There she was administered MAC sedation by anesthesia. Her existing PEG tube was withdrawn and her abdomen was prepped and draped in usual sterile fashion. Preoperative antibiotics were administered by anesthesia and a formal timeout followed to confirm patient procedure. Patient's prolapsed gastric mucosa was grasped with forceps and then the redundant tissue was cauterized free. Any bleeding was immediately dealt with using additional selective electrocautery. Once all of this redundant tissue was removed and hemostasis achieved a new 20 Maltese replacement gastrostomy tube was brought on the field. The retention balloon was tested with free filling using 6 mL of sterile water then the balloon was deflated and the tip of the tube was lubricated. The replacement gastrostomy was inserted through the patient's gastrocutaneous fistula tract and the balloon was reinflated with 6 mL of water. The flange on the gastrostomy tube was lowered until it spun freely but was loosely approximated against the abdominal wall. This brought us down to a depth of 5 cm showing where the flange landed against the tubing. The procedure was concluded with application of triple antibiotic ointment against patient's gastric mucosa and a new bolster dressing was fed about the tube underneath the flange. It was at this point patient underwent diagnostic EGD which was documented separately and probation. Grafts/Implants Used: 20 Fr EndoVive replacement tube, reference [id number], lot [id number] Complications None Admit VTE Documentation VTE Mechan Device Prophylaxis: SCD's Procedures Digestive 40xxx-49xxx: 41581 Rplc gtube revj gstrst trc
--- NOTE | 2024-02-08 12:52 | OP.CCLET_ITS ---
02/08/2024 Alexandria Carranza Re : Upper GI endoscopy procedure for Ching Dumas Tere This procedure was performed on Thursday, February 08, 2024. My impressions and recommendations are as follows: Impressions : - Nodular mucosa in the duodenal bulb. Biopsied. - Mucosal changes suspicious for gastritis. Biopsied. - Chronic gastritis. Biopsied. - Multiple gastric polyps. Resected and retrieved. Biopsied. - No gross lesions in the entire esophagus. No specimens collected. - Intact gastrostomy with a patent G-tube present characterized by healthy appearing mucosa. Recommendations : - Discharge patient to home (via wheelchair). - Resume previous diet daily. - Use sucralfate tablets 1 gram PO BID today. - Await pathology results. - Telephone my office for pathology results in 1 week. - Continue present medications. - No aspirin, ibuprofen, naproxen, or other non-steroidal anti-inflammatory drugs for 2 days. My findings are described in the full procedure note, which is enclosed. If I can be of further assistance, please feel free to contact me at Doctor phone number(s): , Work: . Sincerely, Amari Zamarripa MD 02/08/2024 12:51:26 PM This report has been signed electronically.
--- NOTE | 2024-02-08 12:52 | OP.EGD_ITS ---
Patient Name: Ching Sharp Procedure Date: 02/08/2024 11:17 AM Date of : 1955 Age: 69 Procedure: Upper GI endoscopy Indications: Suspected upper gastrointestinal bleeding, Helicobacter pylori status not known, Chronic duodenal ulcer, Replace PEG tube Providers: Amari Zamarripa MD Referring MD: Amari Zamarripa MD Medicines: See the Anesthesia note for documentation of the administered medications Patient Profile: Refer to note in patient chart for documentation of history and physical. Complications: No immediate complications. Estimated blood loss: Minimal. Procedure: Pre-Anesthesia Assessment: - The heart rate, respiratory rate, oxygen saturations, blood pressure, adequacy of pulmonary ventilation, and response to care were monitored throughout the procedure. After obtaining informed consent, the endoscope was passed under direct vision. Throughout the procedure, the patient's blood pressure, pulse, and oxygen saturations were monitored continuously. The gastroscope was introduced through the mouth, and advanced to the duodenal bulb. The upper GI endoscopy was accomplished without difficulty. The patient tolerated the procedure well. Scope In: 11:33:29 AM Scope Out: 12:23:49 PM Total Procedure Duration Time 0 hours 50 minutes 20 seconds Findings: Localized nodular mucosa was found in the duodenal bulb. Biopsies were taken with a cold forceps for histology. Estimated blood loss was minimal. Localized inflammation characterized by erythema, friability and linear erosions was found in the gastric body and in the gastric antrum. Biopsies were taken with a cold forceps for histology. Estimated blood loss was minimal. Localized moderate inflammation characterized by erythema was found in the gastric antrum. Biopsies were taken with a cold forceps for Helicobacter pylori cultures. Multiple 3 to 7 mm semi-sessile polyps with no bleeding and no stigmata of recent bleeding were found in the gastric fundus. Biopsies were taken with a cold forceps for histology. Estimated blood loss: 3 mL requiring treatment with placement of hemostatic clip(s). The polyp was removed with a hot snare. Resection and retrieval were complete. Estimated blood loss: none. No gross lesions were noted in the entire esophagus. No biopsies or other specimens were collected for this exam. There was evidence of an intact gastrostomy with a patent G-tube present on the greater curvature of the stomach. This was characterized by healthy appearing mucosa. Impression: - Nodular mucosa in the duodenal bulb. Biopsied. - Mucosal changes suspicious for gastritis. Biopsied. - Chronic gastritis. Biopsied. - Multiple gastric polyps. Resected and retrieved. Biopsied. - No gross lesions in the entire esophagus. No specimens collected. - Intact gastrostomy with a patent G-tube present characterized by healthy appearing mucosa. Recommendation: - Discharge patient to home (via wheelchair). - Resume previous diet daily. - Use sucralfate tablets 1 gram PO BID today. - Await pathology results. - Telephone my office for pathology results in 1 week. - Continue present medications. - No aspirin, ibuprofen, naproxen, or other non-steroidal anti-inflammatory drugs for 2 days. Procedure Code(s): --- Professional --- 88325, Esophagogastroduodenoscopy, flexible, transoral; with removal of tumor(s), polyp(s), or other lesion(s) by snare technique 46214, 59, Esophagogastroduodenoscopy, flexible, transoral; with biopsy, single or multiple Diagnosis Code(s): --- Professional --- K31.89, Other diseases of stomach and duodenum K31.7, Polyp of stomach and duodenum Z93.1, Gastrostomy status K26.7, Chronic duodenal ulcer without hemorrhage or perforation Z43.1, Encounter for attention to gastrostomy CPT copyright 2021 [employer]. All rights reserved. The codes documented in this report are preliminary and upon diesel engine i pipe fitter review may be revised to meet current compliance requirements. Amari Zamarripa MD 02/08/2024 12:51:26 PM This report has been signed electronically. Number of Addenda: 0 Note Initiated On: 02/08/2024 11:17 AM
--- NOTE | 2024-02-08 13:48 | SUR.PHASEII ---
called and talked with nutrition services- to see if someone could call and talk with them about tube feeding and nutrition with her gastritis- the nutrition therapy said they will leave a message for Elise- she has worked with them in the past- she is here tomorrow or and will call david pena- his phone number given to her this info given to David and he is happy with this plan
[2024-02-08] MEDS: 0.9% Saline Lock 10 ML Syringe IV (14:27)
== END 2024-02-08 14:42 | disposition home or self-care (01) ==
LOC: SDC 09:30 → AC 09:31
PROVIDERS: PCP Internal Medicine; Referring Provider Surgery; Visit Provider Surgery
PROC: 0DJ08ZZ Inspection of Upper Intestinal Tract, Via Natural or Artificial Opening Endoscopic (ICD-10-PCS; CPT 43235; principal; 2024-02-08 10:45)
DX: K94.23 Gastrostomy malfunction (principal); G35 Multiple sclerosis; N18.4 Chronic kidney disease, stage 4 (severe); K25.3 Acute gastric ulcer without hemorrhage or perforation; K31.7 Polyp of stomach and duodenum; K29.50 Unspecified chronic gastritis without bleeding; I12.9 Hypertensive chronic kidney disease with stage 1 through stage 4 chronic kidney disease, or unspecified chronic kidney disease; K31.89 Other diseases of stomach and duodenum; E78.00 Pure hypercholesterolemia, unspecified; Z79.899 Other long term (current) drug therapy
CPT/HCPCS: 43763; 43251; 43239; 00700; 88305; 88342; J7120; A4216; J2405

== ENCOUNTER 2024-02-22 12:37 | Outpatient (CLI) | payer MEDICARE, MEDICAID, SELFPAY ==
[2024-02-22 13:10] LABS: Mucous, Urine 0 SEEN /hpf (<or=2+); Red Blood Cells-Urine 0 SEEN /hpf (0-5); Squamous Epithelial Cells - UA 0 SEEN /hpf (5-10)
[2024-02-22 13:12] LABS: Absolute Lymphocyte Count 2.56 X10^3/uL (0.83-4.51); Absolute Neutrophil Count 4.5 X10^3/uL (2.0-7.7); Basophil# 0.07 X10^3/uL; Basophil% 0.8 % (0-1); Color, Urine Yellow (Yellow); Eosinophils% 3.6 % (0-5); Glucose, Dipstick Normal (Normal); Hematocrit 39.9 % (37-47); Hemoglobin 12.7 g/dL (12.0-15.0); Ketone-Dipstick Negative (Negative); Leukocyte Esterase-Dipstick 500 /ul (Negative); Lymphocyte # 2.56 X10^3/ul (0.83-4.51); Mean Corp Hgb Conc 31.8 g/dL (32-36); Mean Corpuscular Hgb 31.1 pg (27.0-32.0); Mean Corpuscular Volume 97.6 fL (81-99); Mean Platelet Vol. 10.8 fl (6.2-12.0); Monocyte# 0.79 X10^3/uL; Monocyte% 9.6 % (0-10); NRBC Flagged by Analyzer 0 % (0-5); Neutrophil # 4.49 X10^3/uL (2.7-7.7); Neutrophil % 54.5 % (47-70); Nitrite-Dipstick Positive (Negative); Occult Blood-Urine 10 /ul (Negative); Platelet Count 211 K/mm3 (150-450); Protein-Dipstick 15 mg/dl (Negative); RBC Distribution Width CV 13.8 % (11.6-14.6); RBC Distribution Width SD 49.6 fl (35.1-43.9); Red Blood Count 4.09 M/mm3 (4.2-5.4); Urine Bilirubin Dipstick Negative (Negative); Urine Clarity Clear (Clear); Urine Urobilinogen Normal (Normal); White Blood Count 8.3 K/mm3 (4.4-11.0)
[2024-02-22 13:27] LABS: Bacteria 1+ /hpf (None Seen); White Blood Cells 5-10 SEEN /hpf (0-5)
[2024-02-22 13:36] LABS: ALB/GLOB Ratio 0.7 RATIO (0.9-2.4); AST(SGOT) 19 U/L (15-37); Alanine Aminotransfer ALT/SGPT 18 U/L (13-56); Albumin, Serum 3.2 g/dL (3.2-5.0); Alkaline Phosphatase 74 U/L (45-117); Anion Gap 8 (5-15); BUN 33 mg/dL (7-18); Calcium,Total 9.7 mg/dL (8.5-10.1); Chloride 102 mmol/L (98-107); Creatinine, Serum 1.03 mg/dL (0.55-1.02); EST Glomerular Filtration Rate 57 mL/min (>60); Est Glom Filt Rate - Afr Amer 68 mL/min (>60); Globulin 4.6 g/dL (2.2-4.2); Glucose 80 mg/dL (74-106); Potassium 4.1 mmol/L (3.5-5.1); Protein, Total 7.8 g/dL (6.4-8.2); Sodium Level 138 mmol/L (136-145)
[2024-02-22 13:43] LABS: Vitamin D,25 Hydroxy 81.2 ng/mL
== END 2024-02-22 23:59 | disposition home or self-care (01) ==
LOC: MEDOUTP 12:37
PROVIDERS: PCP Internal Medicine; Referring Provider Internal Medicine; Visit Provider Internal Medicine
DX: G81.90 Hemiplegia, unspecified affecting unspecified side (principal); E55.9 Vitamin D deficiency, unspecified; Z79.899 Other long term (current) drug therapy
CPT/HCPCS: 36591; 80053; 81001; 82306; 85025; 87077; 87086; 87088; 87186; A4216

== ENCOUNTER 2024-05-10 14:48 | Outpatient (CLI) | payer MEDICARE, MEDICAID, SELFPAY ==
[2024-05-10 15:34] LABS: Mucous, Urine 0 SEEN /hpf (<or=2+); Squamous Epithelial Cells - UA 0 SEEN /hpf (5-10)
[2024-05-10 15:38] LABS: Absolute Lymphocyte Count 2.19 X10^3/uL (0.83-4.51); Absolute Neutrophil Count 4.1 X10^3/uL (2.0-7.7); Basophil# 0.07 X10^3/uL; Basophil% 0.9 % (0-1); Eosinophil# 0.28 X10^3/uL; Eosinophils% 3.7 % (0-5); Hematocrit 40.9 % (37-47); Hemoglobin 13.1 g/dL (12.0-15.0); Lymphocyte # 2.19 X10^3/ul (0.83-4.51); Lymphocyte % 29.1 % (19-41); Mean Corpuscular Hgb 30.9 pg (27.0-32.0); Mean Corpuscular Volume 96.5 fL (81-99); Mean Platelet Vol. 10.5 fl (6.2-12.0); Monocyte# 0.84 X10^3/uL; Monocyte% 11.2 % (0-10); NRBC Flagged by Analyzer 0 % (0-5); Neutrophil # 4.14 X10^3/uL (2.7-7.7); Platelet Count 180 K/mm3 (150-450); RBC Distribution Width CV 14.9 % (11.6-14.6); Red Blood Count 4.24 M/mm3 (4.2-5.4); White Blood Count 7.5 K/mm3 (4.4-11.0)
[2024-05-10 15:41] LABS: Color, Urine Yellow (Yellow); Glucose, Dipstick Normal (Normal); Ketone-Dipstick Negative (Negative); Leukocyte Esterase-Dipstick 500 /ul (Negative); Nitrite-Dipstick Negative (Negative); Occult Blood-Urine 250 /ul (Negative); Protein-Dipstick 15 mg/dl (Negative); Specific Gravity, Urine 1.005 (1.002-1.030); Urine Bilirubin Dipstick Negative (Negative); Urine Clarity Clear (Clear); Urine Urobilinogen Normal (Normal)
[2024-05-10 15:48] LABS: Bacteria 2+ /hpf (None Seen); Red Blood Cells-Urine 0-5 SEEN /hpf (0-5); White Blood Cells 10-25 SEEN /hpf (0-5)
[2024-05-10 16:02] LABS: PTHIN 193.2 pg/mL (18.4-80.1)
[2024-05-10 16:05] LABS: Vitamin D,25 Hydroxy 80.4 ng/mL
[2024-05-10 16:06] LABS: Ionized Calcium 5.19 mg/dL (4.36-5.20)
[2024-05-10 16:09] LABS: ALB/GLOB Ratio 0.8 RATIO (0.9-2.4); AST(SGOT) 18 U/L (15-37); Alanine Aminotransfer ALT/SGPT 21 U/L (13-56); Albumin, Serum 3.3 g/dL (3.2-5.0); Alkaline Phosphatase 81 U/L (45-117); Anion Gap 3 (5-15); BUN 24 mg/dL (7-18); BUN/Creat Ratio 26.8 RATIO (10-20); Calcium,Total 9.2 mg/dL (8.5-10.1); Chloride 105 mmol/L (98-107); Creatinine, Serum 0.89 mg/dL (0.55-1.02); EST Glomerular Filtration Rate 66 mL/min (>60); Est Glom Filt Rate - Afr Amer 80 mL/min (>60); Ferritin 212 ng/mL (8-252); Globulin 4.2 g/dL (2.2-4.2); Glucose 87 mg/dL (74-106); Potassium 4.3 mmol/L (3.5-5.1); Protein, Total 7.5 g/dL (6.4-8.2); Sodium Level 137 mmol/L (136-145)
[2024-05-10 16:32] LABS: Ionized Calcium Order ORDER TUBE
[2024-05-10 18:21] LABS: Creatinine, Urine (random) < 13.00 mg/dL (NO RANGE EST.)
== END 2024-05-10 23:59 | disposition home or self-care (01) ==
LOC: MEDOUTP 14:48
PROVIDERS: PCP Internal Medicine; Referring Provider Internal Medicine; Visit Provider Internal Medicine
DX: G81.90 Hemiplegia, unspecified affecting unspecified side (principal); E61.1 Iron deficiency; E55.9 Vitamin D deficiency, unspecified; R82.71 Bacteriuria
CPT/HCPCS: 36591; 80053; 81001; 82043; 82306; 82330; 82570; 82728; 83970; 85025; 87077; 87086; 87088; 87186; A4216

== ENCOUNTER 2024-07-25 13:57 | Outpatient (CLI) | payer MEDICARE, MEDICAID, SELFPAY ==
[2024-07-25 14:56] LABS: Mucous, Urine 0 SEEN /hpf (<or=2+); Squamous Epithelial Cells - UA 0 SEEN /hpf (5-10)
[2024-07-25 14:58] LABS: Color, Urine Yellow (Yellow); Glucose, Dipstick Normal (Normal); Ketone-Dipstick Negative (Negative); Leukocyte Esterase-Dipstick 500 /ul (Negative); Nitrite-Dipstick Positive (Negative); Occult Blood-Urine 25 /ul (Negative); Protein-Dipstick 30 mg/dl (Negative); Urine Bilirubin Dipstick Negative (Negative); Urine Clarity Sl. Cloudy (Clear); Urine Urobilinogen Normal (Normal); Urine pH 6.5 (5.0 - 8.0)
[2024-07-25 15:00] LABS: Absolute Neutrophil Count 4.3 X10^3/uL (2.0-7.7); Basophil# 0.04 X10^3/uL; Basophil% 0.5 % (0-1); Eosinophil# 0.29 X10^3/uL; Eosinophils% 3.9 % (0-5); Hematocrit 41.2 % (37-47); Hemoglobin 13.1 g/dL (12.0-15.0); Lymphocyte % 26.7 % (19-41); Mean Corp Hgb Conc 31.8 g/dL (32-36); Mean Corpuscular Hgb 31.9 pg (27.0-32.0); Mean Corpuscular Volume 100.2 fL (81-99); Mean Platelet Vol. 10.7 fl (6.2-12.0); Monocyte# 0.85 X10^3/uL; Monocyte% 11.3 % (0-10); NRBC Flagged by Analyzer 0 % (0-5); Neutrophil % 57.5 % (47-70); Platelet Count 201 K/mm3 (150-450); RBC Distribution Width CV 14.3 % (11.6-14.6); Red Blood Count 4.11 M/mm3 (4.2-5.4); White Blood Count 7.5 K/mm3 (4.4-11.0)
[2024-07-25 15:07] LABS: Bacteria 2+ /hpf (None Seen); Red Blood Cells-Urine 0-5 SEEN /hpf (0-5); White Blood Cells 10-25 SEEN /hpf (0-5)
[2024-07-25 15:21] LABS: Ionized Calcium 5.47 mg/dL (4.36-5.20)
[2024-07-25 15:23] LABS: PTHIN 60.7 pg/mL (18.4-80.1)
[2024-07-25 15:36] LABS: Microalbumin,Random Urine 55.4 mg/L (NO RANGE EST.); Microalbumin:Creatinine Ratio 228.9 mg/g CRE (<30 mg/g CRE)
[2024-07-25 15:46] LABS: Vitamin D,25 Hydroxy 64.2 ng/mL
[2024-07-25 15:48] LABS: ALB/GLOB Ratio 0.8 RATIO (0.9-2.4); AST(SGOT) 18 U/L (15-37); Alanine Aminotransfer ALT/SGPT 18 U/L (13-56); Albumin, Serum 3.6 g/dL (3.2-5.0); Alkaline Phosphatase 98 U/L (45-117); Anion Gap 5 (5-15); BUN 38 mg/dL (7-18); Calcium,Total 10.4 mg/dL (8.5-10.1); Chloride 102 mmol/L (98-107); Creatinine, Serum 0.97 mg/dL (0.55-1.02); EST Glomerular Filtration Rate 60 mL/min (>60); Est Glom Filt Rate - Afr Amer 73 mL/min (>60); Ferritin 177 ng/mL (8-252); Globulin 4.6 g/dL (2.2-4.2); Glucose 84 mg/dL (74-106); Iron 52 ug/dL (50-170); Potassium 4.4 mmol/L (3.5-5.1); Protein, Total 8.2 g/dL (6.4-8.2); Sodium Level 138 mmol/L (136-145)
[2024-07-25 15:54] LABS: Ionized Calcium Order ORDER TUBE
== END 2024-07-25 23:59 | disposition home or self-care (01) ==
LOC: MEDOUTP 13:57
PROVIDERS: PCP Internal Medicine; Referring Provider Internal Medicine; Visit Provider Internal Medicine
DX: G81.90 Hemiplegia, unspecified affecting unspecified side (principal); N18.30 Chronic kidney disease, stage 3 unspecified; E61.1 Iron deficiency; R82.71 Bacteriuria
CPT/HCPCS: 36591; 80053; 81001; 82043; 82306; 82330; 82570; 82728; 83540; 83970; 85025; 87077; 87086; 87088; 87186; A4216

== ENCOUNTER → 2024-09-08 | Outpatient (CLI) | payer MEDICARE, MEDICAID, SELFPAY ==
--- NOTE | 2024-09-08 13:21 | RAD_ITS ---
PROCEDURE: Sniff test. Hypoxemia. DATE OF EXAMINATION: September 08, 2024. INDICATION: Female, 69 years old. PHYSICIAN: Dr. Flora Hunter FLUOROSCOPY TIME (if supplied): (25 seconds) minutes/seconds. 12.2 mGy. 2 images were submitted. There is a marked degree of elevation of the right hemidiaphragm. A left-sided Port-A-Cath is seen with the tip at the junction of the superior vena cava and right atrium. There is movement of both hemidiaphragms. RAD/Fluoroscopy 1 Hr or Less IMPRESSION: Elevation of the right hemidiaphragm. Movement of both hemidiaphragms. Electronically Signed: Luís Hines MD at 13:59 EST ,
[2024-09-08 13:48] LABS: Mucous, Urine 0 SEEN /hpf (<or=2+); Red Blood Cells-Urine 0 SEEN /hpf (0-5); Squamous Epithelial Cells - UA 0 SEEN /hpf (5-10)
[2024-09-08 13:58] LABS: Absolute Lymphocyte Count 1.93 X10^3/uL (0.83-4.51); Absolute Neutrophil Count 5.1 X10^3/uL (2.0-7.7); Basophil# 0.07 X10^3/uL; Basophil% 0.9 % (0-1); Color, Urine Yellow (Yellow); Eosinophil# 0.28 X10^3/uL; Eosinophils% 3.4 % (0-5); Glucose, Dipstick Normal (Normal); Hematocrit 40.9 % (37-47); Hemoglobin 12.9 g/dL (12.0-15.0); Ketone-Dipstick Negative (Negative); Leukocyte Esterase-Dipstick 500 /ul (Negative); Lymphocyte # 1.93 X10^3/ul (0.83-4.51); Lymphocyte % 23.6 % (19-41); Mean Corp Hgb Conc 31.5 g/dL (32-36); Mean Corpuscular Hgb 31.6 pg (27.0-32.0); Mean Corpuscular Volume 100.2 fL (81-99); Mean Platelet Vol. 10.9 fl (6.2-12.0); Monocyte# 0.75 X10^3/uL; Monocyte% 9.2 % (0-10); NRBC Flagged by Analyzer 0 % (0-5); Neutrophil # 5.12 X10^3/uL (2.7-7.7); Neutrophil % 62.7 % (47-70); Nitrite-Dipstick Positive (Negative); Occult Blood-Urine 25 /ul (Negative); Platelet Count 181 K/mm3 (150-450); Protein-Dipstick 15 mg/dl (Negative); RBC Distribution Width CV 13.4 % (11.6-14.6); RBC Distribution Width SD 49.7 fl (35.1-43.9); Red Blood Count 4.08 M/mm3 (4.2-5.4); Urine Bilirubin Dipstick Negative (Negative); Urine Clarity Sl. Cloudy (Clear); Urine Urobilinogen Normal (Normal); White Blood Count 8.2 K/mm3 (4.4-11.0)
[2024-09-08 14:05] LABS: Bacteria 1+ /hpf (None Seen); White Blood Cells 25-50 SEEN /hpf (0-5)
[2024-09-08 14:20] LABS: Microalbumin,Random Urine 56.6 mg/L (NO RANGE EST.); Microalbumin:Creatinine Ratio 270.8 mg/g CRE (<30 mg/g CRE)
[2024-09-08 14:24] LABS: Vitamin D,25 Hydroxy 72.7 ng/mL
[2024-09-08 14:29] LABS: ALB/GLOB Ratio 0.8 RATIO (0.9-2.4); AST(SGOT) 18 U/L (15-37); Alanine Aminotransfer ALT/SGPT 25 U/L (13-56); Albumin, Serum 3.4 g/dL (3.2-5.0); Alkaline Phosphatase 96 U/L (45-117); Anion Gap 5 (5-15); BUN 34 mg/dL (7-18); BUN/Creat Ratio 39.5 RATIO (10-20); Calcium,Total 9.3 mg/dL (8.5-10.1); Chloride 105 mmol/L (98-107); Creatinine, Serum 0.86 mg/dL (0.55-1.02); EST Glomerular Filtration Rate 69 mL/min (>60); Est Glom Filt Rate - Afr Amer 84 mL/min (>60); Ferritin 143 ng/mL (8-252); Globulin 4.1 g/dL (2.2-4.2); Glucose 92 mg/dL (74-106); Iron 69 ug/dL (50-170); Potassium 4.2 mmol/L (3.5-5.1); Protein, Total 7.5 g/dL (6.4-8.2); Sodium Level 141 mmol/L (136-145)
[2024-09-08 14:36] LABS: PTHIN 86.7 pg/mL (18.4-80.1)
== END | disposition home or self-care (01) ==
LOC: RAD 12:41
PROVIDERS: PCP Internal Medicine; Referring Provider Internal Medicine Pulmonary Disease; Visit Provider Internal Medicine Pulmonary Disease
DX: G81.90 Hemiplegia, unspecified affecting unspecified side (principal); N18.30 Chronic kidney disease, stage 3 unspecified; E61.1 Iron deficiency; R09.02 Hypoxemia
CPT/HCPCS: 36591; 76000; 80053; 81001; 82043; 82306; 82570; 82728; 83540; 83970; 85025; 87077; 87086; 87088; 87186; A4216

== ENCOUNTER 2024-10-14 07:14 | Emergency (ER) | payer MEDICARE, MEDICAID, SELFPAY ==
[2024-10-14] VITALS (9 sets, daily range): BP systolic 121–156; BP diastolic 77–90; PULSE 71–101; RESP 15–19; TEMP 36.8–37; O2SAT 94–100; BMI 23.3
--- NOTE | 2024-10-14 07:37 | EDS_ITS ---
HPI History of Present Illness Chief Complaint: Shortness of Breath Informant: patient and EMS Onset/Context/Timing Onset: Today Timing: Continuous Worsened by: Nothing Relieved by: Nothing Associated Symptoms cough; Negative for rhinorrhea, fever, sore throat or chills Chest Pain: Positive for None Narrative Narrative: Patient presents with shortness of breath that became worse today. EMS reports that the patient has pulse oximeter at home was 86% on her normal 4 L nasal cannula. Patient denies any fevers or chills. Patient denies any cough. Patient denies any chest pain. Patient denies any nausea or vomiting. Patient denies any rhinorrhea. Patient denies any sore throat. Patient has a history of multiple sclerosis and has difficulty speaking. Patient can only answer yes/no questions. [facility] Medical History MRSA infection Hearing loss, left Osteoporosis Kidney disease Post-menopausal Anemia Dislodged gastrostomy tube Malnutrition Occlusion and stenosis of bilateral carotid arteries Hypoxia Age-related cognitive decline Partial seizure Poor appetite Elevated sed rate Elevated serum globulin level Suprapubic catheter Urinary tract infection Pelvic pain Wears glasses Endometrial thickening on ultrasound Port-A-Cath in place Loss of hearing Dental bridge present Depression Alcohol use Uses wheelchair Indwelling urethral catheter present Back pain Migraine headache Blackout Difficulty swallowing Non-smoker History of edema History of echocardiogram Hypertension History of wrist fracture Iron deficiency anemia Bilateral hydronephrosis MRSA colonization Neurogenic bladder Declining functional status Vitamin D deficiency Muscle spasm OAB (overactive bladder) Allergic rhinitis Insomnia Hyperlipidemia CKD (chronic kidney disease) stage 4, GFR 15-29 ml/min Right hemiparesis Multiple sclerosis Home Medications ?Medication ?Instructions ?Recorded ?Last Taken ?Type acetaminophen 500 mg tablet 1,000 mg PO Q6H PRN Pain 02/15/19 02/07/24 History magnesium oxide 400 mg (241.3 mg 400 mg PO QHS magnesium supplement 05/23/19 02/07/24 History magnesium) tablet polysaccharide iron complex 150 mg 150 mg PO DAILY iron replacement 05/23/19 07/08/23 History iron capsule krill 1,000 mg-omega-3 170 mg-dha 500 cap PO DAILY supplement 11/15/20 01/12/24 History 50 mg-epa 80 sa-qfhpkv-rhgtp capsule (krill oil) vitamin B complex-folic acid 0.4 1 tab PO DAILY vitamin 11/15/20 02/07/24 History mg tablet (B Complex 1 (with folic acid)) cholecalciferol (vitamin D3) 1,250 50,000 unit PO QMONTH vitamin 08/15/21 01/07/24 History mcg (50,000 unit) capsule cinacalcet 30 mg tablet 30 mg PO QODAY hyperparathyroidism 11/24/21 02/07/24 History fexofenadine 180 mg tablet 180 mg PO DAILY ALLERGIES 07/22/22 07/08/23 History ondansetron 4 mg disintegrating 4 mg PO Q8H PRN nausea and 07/22/22 07/08/23 Rx tablet vomiting #10 tabs ascorbic acid (vitamin C) 1,000 mg 1,000 mg PO BREAKFAST SUPPLEMENT 07/23/22 02/07/24 History tablet,extended release (Vitamin C ER) baclofen 20 mg tablet 20 mg PO TID MUSCLE SPASMS 09/10/22 02/07/24 History food supplemt, lactose-reduced 250 ml PO 4X/DAY PRN SUPPLEMENT 09/15/22 07/08/23 History 0.08 gram-1.5 kcal/mL oral liquid melatonin 10 mg tablet 10 mg PO QHS INSOMNIA 09/15/22 02/07/24 History mirtazapine 30 mg tablet 45 mg PO QHS 09/15/22 02/07/24 History cfbhbkrz-kyyy-talk 8 mg-folic 400 1 tab PO DAILY health maintenance 09/15/22 02/07/24 History mcg-K 50 mcg-lutein 300 mcg tablet (Centrum Silver Women) nystatin 100,000 unit/gram topical 1 applic topical DAILY PRN Skin 09/15/22 07/08/23 History powder Irritation glucosamine 750 qm-yoackosfsum-ktb 1 tab PO BID 07/07/23 02/07/24 History no1 644 mg-C 30 mg-laura 1 mg tablet (Osteo Bi-Flex Triple Strength) polyethylene glycol 3350 17 gram 17 g PO DAILY PRN constipation 09/04/23 Unknown History oral powder packet turmeric 400 mg capsule 400 mg PO DAILY 01/13/24 02/07/24 History sucralfate 1 gram tablet (Carafate) 1 g PO Q6H 4 weeks #112 tabs 02/08/24 Unknown Rx acetic acid 0.25 % irrigation 60 ml irrigation DAILY 10/14/24 Unknown History solution albuterol sulfate 2.5 mg/3 mL 2.5 mg (3 mL) inhalation Q4H PRN 10/14/24 Unknown Rx (0.083 %) solution for nebulization #25 vials lactulose 10 gram/15 mL oral 60 ml PO QHS 10/14/24 Unknown History solution mirtazapine 45 mg tablet 45 mg PO QHS 10/14/24 Unknown History pantoprazole 40 mg tablet,delayed 40 mg PO Q12H 10/14/24 Unknown History release suvorexant 5 mg tablet (Belsomra) 5 mg PO QHS 10/14/24 Unknown History Allergy/AdvReac Type Severity Reaction Status Date / Time dextrose 5 % in water (From AdvReac Other Verified 10/14/24 07:24 Zyvox) doxycycline AdvReac hypotension Verified 10/14/24 07:24 levofloxacin (From Levaquin) AdvReac hypotension Verified 10/14/24 07:24 linezolid (From Zyvox) AdvReac Other Verified 10/14/24 07:24 morphine AdvReac hallucinati Verified 10/14/24 07:24 ons piperacillin (From Zosyn) AdvReac hypotension Verified 10/14/24 07:24 sulfamethoxazole (From AdvReac hypotension Verified 10/14/24 07:24 Bactrim) tazobactam (From Zosyn) AdvReac hypotension Verified 10/14/24 07:24 trimethoprim (From Bactrim) AdvReac hypotension Verified 10/14/24 07:24 vancomycin AdvReac developed Verified 10/14/24 07:24 toxic levels Family History Mother Osteoporosis Grandmother Breast cancer Father Hypertension HLD (hyperlipidemia) Surgical History S/P percutaneous endoscopic gastrostomy (PEG) tube placement S/P laparoscopic procedure H/O cervical polypectomy H/O dilation and curettage History of tympanoplasty Hx of hand surgery History of cystoscopy Hx of shoulder surgery History of tonsillectomy and adenoidectomy History of esophagogastroduodenoscopy (EGD) Social History household members: spouse housing: house Smoking Status: Never smoker alcohol intake: never substance use type: does not use what type of physical activity do you participate in: none seatbelt use: always do you feel safe at home: Yes 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 ROS ROS ED Constitutional Constitutional ED: Denies chills or fever(s) ENT ENT ED: Denies rhinorrhea or sore throat Respiratory/Chest Respiratory/Chest: Reports cough and dyspnea Gastrointestinal Gastrointestinal: Denies nausea or vomiting Neurologic Neurologic: Reports weakness EXAM Physical Exam Const Vital Signs: 10/14/24 07:15 10/14/24 07:20 10/14/24 07:20 Temperature 98.6 F 98.6 F Temperature Source Oral Oral Pulse Rate 101 H 97 Respiratory Rate 18 18 Respiratory Effort Respiratory Depth Respiratory Pattern Blood Pressure 156/90 H 156/90 H Blood Pressure Mean 112 112 Pulse Ox 94 98 94 Oxygen Delivery Method Nasal Cannula Nasal Cannula Nasal Cannula Oxygen Flow Rate (L/min) 4 4 4 10/14/24 07:31 10/14/24 07:59 10/14/24 08:15 Temperature Temperature Source Pulse Rate 96 97 Respiratory Rate 17 15 Respiratory Effort Normal Non-Labored Respiratory Depth Normal Respiratory Pattern Normal Normal Blood Pressure 137/81 H Blood Pressure Mean 99 Pulse Ox 98 Oxygen Delivery Method Room Air Room Air Oxygen Flow Rate (L/min) 10/14/24 09:00 10/14/24 10:00 Temperature Temperature Source Pulse Rate 95 77 Respiratory Rate 19 H 16 Respiratory Effort Respiratory Depth Respiratory Pattern Blood Pressure 133/77 H 135/81 H Blood Pressure Mean 95 99 Pulse Ox 100 98 Oxygen Delivery Method Nasal Cannula Nasal Cannula Oxygen Flow Rate (L/min) 4 Positive well nourished and well developed General Appearance ED: well developed HEENT Reports moist mucous membranes Neck supple and no JVD Resp normal respiratory effort Auscultation: rhonchi Cardio regular rate and regular rhythm GI non-tender and non-distended Palpation: soft Neuro CN's II-XII intact bilaterally Sensorium / Orientation: alert Motor Exam: general weakness MDM MDM MDM Narrative Medical decision making narrative: Differential diagnosis includes pneumonia, bronchitis, viral illness, aspiration, urinary tract infection, sepsis, cardiac dysrhythmia, cardiac ischemia, and electrolyte abnormality. EKG will be obtained to assess for cardiac dysrhythmia and cardiac ischemia. Chest x-ray will be obtained to assess for pneumonia, pleural effusion, and bronchitis. CBC will be obtained to assess for leukocytosis and anemia. Basic metabolic profile will be obtained to assess for electrolyte abnormality and renal function. High-sensitivity troponin will be obtained to assess for cardiac ischemia. Urinalysis will be obtained to assess for urinary tract infection and hematuria. Lactate will be obtained to assess for sepsis. History & Record Review Additional record(s) reviewed:: Prior labs Lab Data Attestation: I reviewed the patient's lab results. Lab results narrative: CBC was reviewed. There is a mild leukocytosis of 13.3. The remainder is within normal limits. Basic metabolic profile was reviewed. BUN was slightly elevated at 27. The remainder is within normal limits. Serum lactate was reviewed and was normal at 0.6. Urinalysis was reviewed. There are positive nitrites. Leukocyte esterase was 500. There are 50-100 white blood cells. There is 2+ bacteria. COVID-19 PCR was reviewed and was negative. Influenza PCR was reviewed and was negative for influenza A and influenza B. RSV PCR was reviewed and was negative. Labs: Laboratory Results - last 24 hr 10/14/24 07:59 WBC 13.3 H RBC 4.45 Hgb 13.9 Hct 43.8 MCV 98.4 MCH 31.2 MCHC 31.7 L RDW Std Deviation 47.8 H RDW Coeff of Niurka 13.4 Plt Count 174 MPV 10.8 Immature Gran % (Auto) 0.400 Neut % (Auto) 77.3 H Lymph % (Auto) 12.0 L [place] % (Auto) 8.4 Eos % (Auto) 1.5 Baso % (Auto) 0.4 Absolute Neuts (auto) 10.3 H Absolute Lymphs (auto) 1.59 Nucleated RBC % 0 Sodium 139 Potassium 4.2 Chloride 106 Carbon Dioxide 29.0 Anion Gap 5 BUN 27 H Creatinine 1.01 Estim Creat Clear Calc 49.21 Est GFR (MDRD) Af Amer 70 Est GFR (MDRD) Non-Af 58 L BUN/Creatinine Ratio 26.7 H Glucose 103 Lactic Acid 0.6 Calcium 10.0 Troponin I High Sens 10 Urine Color Yellow Urine Clarity Sl. Cloudy Urine pH 6.5 Ur Specific [place] 1.015 Urine Protein 30 H Urine Glucose (UA) Normal Urine Ketones Negative Urine Occult Blood 25 H Urine Nitrite Positive H Urine Bilirubin Negative Urine Urobilinogen Normal Ur Leukocyte Esterase 500 H Urine RBC 0-5 SEEN Urine WBC 50-100 SEEN Ur Squamous Epith Cells 0 SEEN Urine Bacteria 2+ Urine Mucus 1+ Radiography Chest X-Ray - ED: 1 View, Read by ED Physician and Read by Radiologist Diagnostic Testing: Clinical Impression(s) from Imaging Studies Chest X-Ray 10/14/24 08:10 IMPRESSION: Mild bibasilar opacities, likely atelectasis. Electronically Signed: Karli Leonard MD at 10:09 EST , EKG Initial EKG: Attestation: I personally reviewed and interpreted this EKG as follows: Interpretation: Sinus Rhythm (96) and No Acute Injury Pattern Comments: EKG was obtained. On my independent interpretation, shows normal sinus rhythm with a rate of 96. MA interval was normal at 144 ms. QRS interval was normal at 110 ms. QTc interval was normal at 477 ms. [place] was normal. There are no acute ST or T wave changes noted. There is an incomplete right bundle branch block. This is new compared to previous EKG dated 09/04/2023. Otherwise, there are no acute changes. Prior EKG tracings: available for review Treatment and Re-Evaluation :: Patient was given a DuoNeb aerosol here. Patient was given a dose of Rocephin. Patient and family were advised of the findings. reports that patient follows with Dr. Carranza and Dr. Parada regarding urinary tract infections. He does not want patient to have antibiotics until culture results return since the patient is not symptomatic. I am agreeable with this. Patient was given a prescription for albuterol aerosols. states the patient has a home aerosol machine as well as home suction machine. was instructed to use a Yankauer suction to help with secretions. Patient was instructed to follow-up with her primary care physician in 5 to 7 days. Patient was instructed to return if worse in any way. Patient and understood and were agreeable with the plan. All questions were answered. Discharge Plan Triage Chief Complaint: Shortness of Breath ED Provider: Mohit Eller Dx/Rx/DC Orders Clinical Impression: Dyspnea, Multiple sclerosis, Generalized weakness, Urinary tract infection associated with indwelling urethral catheter Instructions: ED Dyspnea Prescriptions: New albuterol sulfate 2.5 mg /3 mL (0.083 %) solution for nebulization 2.5 mg inhalation Q4H PRN Qty: 25 0RF Rx Instructions: Use q4 hours and PRN for wheezing No Action acetaminophen 500 MG tablet 1,000 mg PO Q6H PRN (Reason: Pain) polysaccharide iron complex 150 MG capsule 150 mg PO DAILY magnesium oxide 400 MG tablet 400 mg PO QHS vitamin B complex-folic acid [B Complex 1 (with folic acid)] 0.4 MG tablet 1 tab PO DAILY wjcag-us-[id number]-zrz-swb-hkfplcy-ast [krill oil] 1 EACH capsule 500 cap PO DAILY cholecalciferol (vitamin D3) 1,250 mcg (50,000 unit) capsule 50,000 unit PO QMONTH cinacalcet 30 mg tablet 30 mg PO QODAY Patient Comments: TAKE 1 TABLET BY MOUTH EVERY OTHER DAY WITH FOOD fexofenadine 180 mg Tablet 180 mg PO DAILY ondansetron 4 mg tablet,disintegrating 4 mg PO Q8H PRN (Reason: nausea and vomiting) Qty: 10 0RF Vitamin C 1,000 mg Tablet Extended Release 1,000 mg PO BREAKFAST baclofen 20 mg Tablet 20 mg PO TID mirtazapine 30 mg Tablet 45 mg PO QHS nystatin 100,000 unit/gram powder 1 applic TOPICAL DAILY PRN (Reason: Skin Irritation) Centrum Silver Women 8 mg iron-400 mcg-300 mcg Tablet 1 tab PO DAILY melatonin 10 mg Tablet 10 mg PO QHS food supplemt, lactose-reduced 0.08 gram-1.5 kcal/mL liquid 250 ml PO 4X/DAY PRN (Reason: SUPPLEMENT) Patient Comments: jevity or isosource as supplement as needed. Osteo Bi-Flex Triple Strength 750 mg-644 mg- 30 mg-1 mg tablet 1 tab PO BID polyethylene glycol 3350 17 gram Powder In Packet 17 g PO DAILY PRN (Reason: constipation) turmeric 400 mg capsule 400 mg PO DAILY sucralfate [Carafate] 1 gram tablet 1 g PO Q6H 28 Days Qty: 112 0RF pantoprazole 40 mg tablet,delayed release (DR/EC) 40 mg PO Q12H mirtazapine 45 mg tablet 45 mg PO QHS lactulose 10 gram/15 mL solution 60 ml PO QHS acetic acid 0.25 % solution 60 ml irrigation DAILY Belsomra 5 mg tablet 5 mg PO QHS Primary Care Provider: Alexandria Carranza Referrals: Alexandria Carranza MD [Primary Care Provider] - 3-5 Days Print Language: Colombian Disposition Disposition: Home, Self Care
--- NOTE | 2024-10-14 07:48 | EKG12_ITS ---
Test Reason : SOB Blood Pressure : */* mmHG Vent. Rate : 96 BPM Atrial Rate : 96 BPM P-R Int : 144 ms QRS Dur : 110 ms QT Int : 378 ms P-R-T Axes : 57 8 13 degrees QTcB Int : 477 ms Normal sinus rhythm Incomplete right bundle branch block Borderline ECG Confirmed by TUCKER RAMÍREZ, WILL ([id number]), editor trade journal LORE JUAREZ ([id number]) on 10/16/2024 1:54:36 PM Referred By: Confirmed By: WILL CEBALLOS MD
[2024-10-14] MEDS: Ipratropium/Albuterol Sulfate 3 ML AMPUL.NEB INHALATION (08:00)
[2024-10-14 08:06] LABS: Squamous Epithelial Cells - UA 0 SEEN /hpf (5-10)
--- NOTE | 2024-10-14 08:10 | RAD_ITS ---
HISTORY: Dyspnea. TECHNIQUE: XR Chest 1 View. COMPARISON: 09/04/2023. FINDINGS: CARDIOMEDIASTINAL BORDERS: Cardiac silhouette unchanged in size, obscured by elevation of the right hemidiaphragm. Mediastinal contour also unchanged with calcification of the aortic knob, left hilar calcification, and left chest wall port. LUNGS: Low lung volumes with mild linear bibasilar opacities, decreased from prior. PLEURA: No pleural effusion or pneumothorax seen. OSSEOUS STRUCTURES: Degenerative change. RAD/Chest 1 View (Portable) IMPRESSION: Mild bibasilar opacities, likely atelectasis. Electronically Signed: Karli Leonard MD at 10:09 EST ,
[2024-10-14 08:11] LABS: Absolute Lymphocyte Count 1.59 X10^3/uL (0.83-4.51); Absolute Neutrophil Count 10.3 X10^3/uL (2.0-7.7); Basophil# 0.05 X10^3/uL; Basophil% 0.4 % (0-1); Eosinophils% 1.5 % (0-5); Hematocrit 43.8 % (37-47); Hemoglobin 13.9 g/dL (12.0-15.0); Lymphocyte # 1.59 X10^3/ul (0.83-4.51); Mean Corp Hgb Conc 31.7 g/dL (32-36); Mean Corpuscular Hgb 31.2 pg (27.0-32.0); Mean Corpuscular Volume 98.4 fL (81-99); Mean Platelet Vol. 10.8 fl (6.2-12.0); Monocyte# 1.12 X10^3/uL; Monocyte% 8.4 % (0-10); NRBC Flagged by Analyzer 0 % (0-5); Neutrophil # 10.26 X10^3/uL (2.7-7.7); Neutrophil % 77.3 % (47-70); Platelet Count 174 K/mm3 (150-450); RBC Distribution Width CV 13.4 % (11.6-14.6); RBC Distribution Width SD 47.8 fl (35.1-43.9); Red Blood Count 4.45 M/mm3 (4.2-5.4); White Blood Count 13.3 K/mm3 (4.4-11.0)
[2024-10-14 08:13] LABS: Color, Urine Yellow (Yellow); Glucose, Dipstick Normal (Normal); Ketone-Dipstick Negative (Negative); Leukocyte Esterase-Dipstick 500 /ul (Negative); Nitrite-Dipstick Positive (Negative); Occult Blood-Urine 25 /ul (Negative); Protein-Dipstick 30 mg/dl (Negative); Specific Gravity, Urine 1.015 (1.002-1.030); Urine Bilirubin Dipstick Negative (Negative); Urine Clarity Sl. Cloudy (Clear); Urine Urobilinogen Normal (Normal); Urine pH 6.5 (5.0 - 8.0)
[2024-10-14 08:30] LABS: White Blood Cells 50-100 SEEN /hpf (0-5)
[2024-10-14 08:32] LABS: Bacteria 2+ /hpf (None Seen); Mucous, Urine 1+ /hpf (<or=2+); Red Blood Cells-Urine 0-5 SEEN /hpf (0-5)
[2024-10-14 08:34] LABS: Anion Gap 5 (5-15); BUN 27 mg/dL (7-18); BUN/Creat Ratio 26.7 RATIO (10-20); Chloride 106 mmol/L (98-107); Creatinine, Serum 1.01 mg/dL (0.55-1.02); EST Glomerular Filtration Rate 58 mL/min (>60); Est Glom Filt Rate - Afr Amer 70 mL/min (>60); Estimated Creatinine Clearance 49.21 ml/min; Glucose 103 mg/dL (74-106); Potassium 4.2 mmol/L (3.5-5.1); Sodium Level 139 mmol/L (136-145)
[2024-10-14 08:36] LABS: Lactic Acid 0.6 mmol/L (0.4-1.9)
[2024-10-14 09:30] LABS: Troponin-I HS 10 pg/mL (3.0-54.0)
[2024-10-14] MEDS: Ceftriaxone 1 GM/50 ML BAG IV (09:40)
== END 2024-10-14 12:38 | disposition home or self-care (01) ==
PROVIDERS: Emergency Provider Emergency Medicine; PCP Internal Medicine; Visit Provider Emergency Medicine
DX: T83.511A Infection and inflammatory reaction due to indwelling urethral catheter, initial encounter (principal); G35 Multiple sclerosis; N18.4 Chronic kidney disease, stage 4 (severe); G81.91 Hemiplegia, unspecified affecting right dominant side; R06.00 Dyspnea, unspecified; I12.9 Hypertensive chronic kidney disease with stage 1 through stage 4 chronic kidney disease, or unspecified chronic kidney disease; E78.5 Hyperlipidemia, unspecified; R53.1 Weakness; Z79.899 Other long term (current) drug therapy
CPT/HCPCS: 36591; 71045; 80048; 81001; 83605; 84484; 85025; 87077; 87086; 87088; 87186; 87631; 93005; 94640; 96365; 99285; A4216

== ENCOUNTER 2025-02-15 14:56 | Outpatient (CLI) | payer MEDICARE, MEDICAID, SELFPAY ==
[2025-02-15 16:09] LABS: Bacteria 0 SEEN /hpf (None Seen); Mucous, Urine 0 SEEN /hpf (<or=2+)
[2025-02-15 16:16] LABS: Absolute Lymphocyte Count 2.48 X10^3/uL (0.83-4.51); Absolute Neutrophil Count 5.5 X10^3/uL (2.0-7.7); Basophil# 0.08 X10^3/uL; Basophil% 0.9 % (0-1); Eosinophil# 0.23 X10^3/uL; Eosinophils% 2.5 % (0-5); Hematocrit 41.7 % (37-47); Hemoglobin 13.7 g/dL (12.0-15.0); Lymphocyte # 2.48 X10^3/ul (0.83-4.51); Lymphocyte % 26.8 % (19-41); Mean Corp Hgb Conc 32.9 g/dL (32-36); Mean Corpuscular Hgb 32.1 pg (27.0-32.0); Mean Corpuscular Volume 97.7 fL (81-99); Mean Platelet Vol. 10.9 fl (6.2-12.0); Monocyte# 0.89 X10^3/uL; Monocyte% 9.6 % (0-10); NRBC Flagged by Analyzer 0 % (0-5); Neutrophil # 5.54 X10^3/uL (2.7-7.7); Neutrophil % 59.8 % (47-70); Platelet Count 172 K/mm3 (150-450); RBC Distribution Width CV 13.8 % (11.6-14.6); RBC Distribution Width SD 49.4 fl (35.1-43.9); Red Blood Count 4.27 M/mm3 (4.2-5.4); White Blood Count 9.3 K/mm3 (4.4-11.0)
[2025-02-15 16:35] LABS: Microalbumin,Random Urine 45.3 mg/L (NO RANGE EST.); Microalbumin:Creatinine Ratio 2922.6 mg/g CRE
[2025-02-15 16:39] LABS: PTHIN 118 pg/mL (11-61)
[2025-02-15 16:42] LABS: Color, Urine Yellow (Yellow); Glucose, Dipstick Normal (Normal); Ketone-Dipstick Negative (Negative); Leukocyte Esterase-Dipstick 500 /ul (Negative); Nitrite-Dipstick Negative (Negative); Occult Blood-Urine 25 /ul (Negative); Protein-Dipstick 30 mg/dl (Negative); Urine Bilirubin Dipstick Negative (Negative); Urine Clarity Sl. Cloudy (Clear); Urine Urobilinogen Normal (Normal)
[2025-02-15 16:51] LABS: Ionized Calcium Order ORDERED
[2025-02-15 16:56] LABS: ALB/GLOB Ratio 1.1 RATIO (0.9-2.4); AST(SGOT) 29 U/L (<=31); Alanine Aminotransfer ALT/SGPT 33 U/L (<=34); Albumin, Serum 4.1 g/dL (3.4-4.8); Alkaline Phosphatase 114 U/L (35-104); Anion Gap 12 (5-15); BUN 38 mg/dL (4-19); BUN/Creat Ratio 49.7 RATIO (10-20); Calcium,Total 9.9 mg/dL (7.6-11.0); Carbon Dioxide 27.4 mmol/L (21.0-32.0); Chloride 101 mmol/L (98-108); Creatinine, Serum 0.76 mg/dL (0.70-1.20); EST Glomerular Filtration Rate 84 (>60); Ferritin 180 ng/mL (22-378); Free T3 2.4 pg/mL (2.18-3.98); Globulin 3.8 g/dL (2.2-4.2); Glucose 88 mg/dL (70-99); Potassium 4.7 mmol/L (3.3-5.1); Sodium Level 140 mmol/L (133-145); Total Bilirubin 0.27 mg/dL (0.00-1.30); Vitamin D,25 Hydroxy 87.5 ng/mL (30-100)
[2025-02-15 17:10] LABS: LDH 151 U/L (84-246)
[2025-02-15 18:42] LABS: Red Blood Cells-Urine 0-5 SEEN /hpf (0-5); White Blood Cells 10-25 SEEN /hpf (0-5)
[2025-02-15 18:43] LABS: Squamous Epithelial Cells - UA 5-10 SEEN /hpf (5-10)
== END 2025-02-15 23:59 | disposition home or self-care (01) ==
LOC: MEDOUTP 14:58
PROVIDERS: PCP Internal Medicine; Referring Provider Internal Medicine; Visit Provider Internal Medicine
DX: G81.90 Hemiplegia, unspecified affecting unspecified side (principal); E61.1 Iron deficiency; E55.9 Vitamin D deficiency, unspecified; R68.89 Other general symptoms and signs
CPT/HCPCS: 36591; 80053; 81001; 82043; 82306; 82570; 82728; 83615; 83970; 84439; 84443; 84481; 85025; 87040; 87077; 87086; 87088; 87186; A4216

== ENCOUNTER 2025-05-02 16:03 | Outpatient (CLI) | payer MEDICARE, MEDICAID, SELFPAY ==
[2025-05-02 16:54] LABS: Mucous, Urine 0 SEEN /hpf (<or=2+); Squamous Epithelial Cells - UA 0 SEEN /hpf (5-10)
[2025-05-02 17:16] LABS: Hematocrit 41.8 % (37-47); Hemoglobin 13.6 g/dL (12.0-15.0); Immature Granulocytes Count 0.070 X10^3/uL (0.0-0.0); Mean Corp Hgb Conc 32.5 g/dL (32-36); Mean Corpuscular Volume 98.8 fL (81-99); Mean Platelet Vol. 11.7 fl (6.2-12.0); NRBC Flagged by Analyzer 0 % (0-5); Platelet Count 191 K/mm3 (150-450); RBC Distribution Width CV 13.5 % (11.6-14.6); RBC Distribution Width SD 48.0 fl (35.1-43.9); Red Blood Count 4.23 M/mm3 (4.2-5.4); White Blood Count 12.1 K/mm3 (4.4-11.0)
[2025-05-02 17:31] LABS: Creatinine, Urine (random) 18.30 mg/dL (28.00-217.00); Microalbumin,Random Urine 53.9 mg/L (<20 mg/L)
[2025-05-02 17:33] LABS: PTHIN 55 pg/mL (11-61)
[2025-05-02 17:45] LABS: Color, Urine Yellow (Yellow); Glucose, Dipstick Normal (Normal); Ketone-Dipstick Negative (Negative); Leukocyte Esterase-Dipstick 500 /ul (Negative); Nitrite-Dipstick Positive (Negative); Occult Blood-Urine 25 /ul (Negative); Protein-Dipstick 30 mg/dl (Negative); Specific Gravity, Urine 1.015 (1.002-1.030); Urine Bilirubin Dipstick Negative (Negative)
[2025-05-02 17:47] LABS: AST(SGOT) 44 U/L (<=31); Alanine Aminotransfer ALT/SGPT 47 U/L (<=34); Albumin, Serum 4.1 g/dL (3.4-4.8); Alkaline Phosphatase 123 U/L (35-104); Anion Gap 14 (5-15); BUN 39 mg/dL (4-19); BUN/Creat Ratio 43.9 RATIO (10-20); Calcium,Total 10.4 mg/dL (7.6-11.0); Carbon Dioxide 28.2 mmol/L (21.0-32.0); Chloride 100 mmol/L (98-108); Globulin 3.8 g/dL (2.2-4.2); Glucose 92 mg/dL (70-99); Potassium 4.3 mmol/L (3.3-5.1); Vitamin D,25 Hydroxy 80.8 ng/mL (30-100)
[2025-05-02 18:06] LABS: Red Blood Cells-Urine 0-5 SEEN /hpf (0-5)
[2025-05-02 20:02] LABS: Ionized Calcium Order 1.29
[2025-05-02 20:08] LABS: Free T3 2.4 pg/mL (2.18-3.98); LDH 166 U/L (84-246)
== END 2025-05-02 23:59 | disposition home or self-care (01) ==
LOC: MEDOUTP 16:04
PROVIDERS: PCP Internal Medicine; Referring Provider Internal Medicine; Visit Provider Internal Medicine
DX: Z45.2 Encounter for adjustment and management of vascular access device (principal); G81.90 Hemiplegia, unspecified affecting unspecified side; R68.89 Other general symptoms and signs
CPT/HCPCS: 36591; 80053; 81001; 82043; 82306; 82330; 82570; 83615; 83970; 84439; 84443; 84481; 85025; 87040; 87077; 87086; 87088; 87186; A4216

== ENCOUNTER 2025-07-04 15:18 | Outpatient (CLI) | payer MEDICARE, MEDICAID, SELFPAY ==
[2025-07-04 16:12] LABS: Mucous, Urine 0 SEEN /hpf (<or=2+)
[2025-07-04 16:22] LABS: Hematocrit 43.3 % (37-47); Hemoglobin 14.0 g/dL (12.0-15.0); Immature Granulocytes Count 0.030 X10^3/uL (0.0-0.0); Mean Corp Hgb Conc 32.3 g/dL (32-36); Mean Corpuscular Volume 95.8 fL (81-99); Mean Platelet Vol. 11.4 fl (6.2-12.0); NRBC Flagged by Analyzer 0 % (0-5); Platelet Count 196 K/mm3 (150-450); RBC Distribution Width CV 13.4 % (11.6-14.6); RBC Distribution Width SD 47.3 fl (35.1-43.9); Red Blood Count 4.52 M/mm3 (4.2-5.4); White Blood Count 9.2 K/mm3 (4.4-11.0)
[2025-07-04 16:32] LABS: PTHIN 170 pg/mL (11-61)
[2025-07-04 16:33] LABS: Creatinine, Urine (random) 26.90 mg/dL (28.00-217.00); Microalbumin,Random Urine 122.0 mg/L (<20 mg/L)
[2025-07-04 16:37] LABS: Color, Urine Yellow (Yellow); Glucose, Dipstick Normal (Normal); Ketone-Dipstick Negative (Negative); Leukocyte Esterase-Dipstick 500 /ul (Negative); Nitrite-Dipstick Positive (Negative); Occult Blood-Urine 250 /ul (Negative); Protein-Dipstick 30 mg/dl (Negative); Specific Gravity, Urine 1.010 (1.002-1.030); Urine Bilirubin Dipstick Negative (Negative)
[2025-07-04 16:49] LABS: AST(SGOT) 33 U/L (<=31); Alanine Aminotransfer ALT/SGPT 41 U/L (<=34); Albumin, Serum 3.9 g/dL (3.4-4.8); Alkaline Phosphatase 135 U/L (35-104); Anion Gap 12 (5-15); BUN 30 mg/dL (4-19); BUN/Creat Ratio 40.7 RATIO (10-20); Calcium,Total 10.1 mg/dL (7.6-11.0); Carbon Dioxide 27.7 mmol/L (21.0-32.0); Chloride 100 mmol/L (98-108); Globulin 3.9 g/dL (2.2-4.2); Glucose 81 mg/dL (70-99); Potassium 4.6 mmol/L (3.3-5.1); Vitamin D,25 Hydroxy 75.2 ng/mL (30-100)
[2025-07-04 17:04] LABS: Ionized Calcium Order ORDER TUBE
[2025-07-04 17:37] LABS: Red Blood Cells-Urine 25-50 SEEN /hpf (0-5)
[2025-07-04 17:38] LABS: Squamous Epithelial Cells - UA 0-5 SEEN /hpf (5-10)
== END 2025-07-04 23:59 | disposition home or self-care (01) ==
LOC: MEDOUTP 15:19
PROVIDERS: PCP Internal Medicine; Referring Provider Internal Medicine; Visit Provider Internal Medicine
DX: Z45.2 Encounter for adjustment and management of vascular access device (principal); G81.90 Hemiplegia, unspecified affecting unspecified side
CPT/HCPCS: 36591; 80053; 81001; 82043; 82306; 82330; 82570; 83970; 85025; 87077; 87086; 87088; 87186; A4216

== ENCOUNTER 2025-09-10 15:22 | Outpatient (CLI) | payer MEDICARE, MEDICAID, SELFPAY ==
[2025-09-10 15:54] LABS: Mucous, Urine 0 SEEN /hpf (<or=2+)
[2025-09-10 15:59] LABS: Color, Urine Straw (Yellow); Glucose, Dipstick Normal (Normal); Ketone-Dipstick Negative (Negative); Leukocyte Esterase-Dipstick 500 /ul (Negative); Nitrite-Dipstick Positive (Negative); Occult Blood-Urine 150 /ul (Negative); Protein-Dipstick 30 mg/dl (Negative); Specific Gravity, Urine 1.010 (1.002-1.030); Urine Bilirubin Dipstick Negative (Negative)
[2025-09-10 16:10] LABS: Hematocrit 43.3 % (37-47); Hemoglobin 13.8 g/dL (12.0-15.0); Immature Granulocytes Count 0.070 X10^3/uL (0.0-0.0); Mean Corp Hgb Conc 31.9 g/dL (32-36); Mean Corpuscular Volume 95.8 fL (81-99); Mean Platelet Vol. 10.2 fl (6.2-12.0); NRBC Flagged by Analyzer 0 % (0-5); Platelet Count 304 K/mm3 (150-450); RBC Distribution Width CV 13.9 % (11.6-14.6); RBC Distribution Width SD 49.0 fl (35.1-43.9); Red Blood Count 4.52 M/mm3 (4.2-5.4); White Blood Count 13.9 K/mm3 (4.4-11.0)
[2025-09-10 16:14] LABS: Red Blood Cells-Urine 25-50 SEEN /hpf (0-5); Squamous Epithelial Cells - UA 0-5 SEEN /hpf (5-10)
[2025-09-10 16:24] LABS: PTHIN 190 pg/mL (11-61)
[2025-09-10 16:29] LABS: Creatinine, Urine (random) 23.10 mg/dL (28.00-217.00); Microalbumin,Random Urine 145.0 mg/L (<20 mg/L)
[2025-09-10 16:39] LABS: AST(SGOT) 30 U/L (<=31); Alanine Aminotransfer ALT/SGPT 26 U/L (<=34); Albumin, Serum 3.7 g/dL (3.4-4.8); Alkaline Phosphatase 134 U/L (35-104); Anion Gap 9 (5-15); BUN 18 mg/dL (4-19); BUN/Creat Ratio 27.7 RATIO (10-20); Calcium,Total 9.3 mg/dL (7.6-11.0); Carbon Dioxide 30.9 mmol/L (21.0-32.0); Chloride 101 mmol/L (98-108); Globulin 4.0 g/dL (2.2-4.2); Glucose 82 mg/dL (70-99); Potassium 4.3 mmol/L (3.3-5.1); Vitamin D,25 Hydroxy 72.6 ng/mL (30-100)
[2025-09-10 16:43] LABS: Ionized Calcium Order ORDER TUBE
[2025-09-10 23:52] LABS: Xtra Tube EP Lab EXTRA TUBE
== END 2025-09-10 23:59 | disposition home or self-care (01) ==
LOC: MEDOUTP 15:22
PROVIDERS: PCP Internal Medicine; Referring Provider Internal Medicine; Visit Provider Internal Medicine
DX: G81.90 Hemiplegia, unspecified affecting unspecified side (principal)
CPT/HCPCS: 36591; 80053; 81001; 82043; 82306; 82330; 82570; 83970; 85025; 87077; 87086; 87088; 87186; A4216